=== PATIENT | female | born 1995 | race Caucasian/White ===

== ENCOUNTER 2019-02-12 18:25 | Inpatient (IN) | END 2019-05-20 23:59 | disposition still patient (30) | DRG 133 | DX: J96.21 Acute and chronic respiratory failure with hypoxia (principal); G93.1 Anoxic brain damage, not elsewhere classified; Z93.0 Tracheostomy status; Z86.74 Personal history of sudden cardiac arrest; D64.9 Anemia, unspecified; T79.A1 Traumatic compartment syndrome of upper extremity; I69.319 Unspecified symptoms and signs involving cognitive functions following cerebral infarction; Z91.010 Allergy to peanuts; X58.XXXS Exposure to other specified factors, sequela; R40.2423 Glasgow coma scale score 9-12, at hospital admission ==

== ENCOUNTER 2019-02-22 17:02 | Inpatient (IN) | payer MEDICAID, OTHER ==
[~2019-02-22] VITALS: Ht 152.4 cm; Wt 39.9 kg
--- NOTE | 2019-02-22 17:14 | NUR ---
PT IS IN ROOM #1A. DR SCHMIDT EVALUATED THE PT.
[2019-02-22] MEDS ORDERED: IV NORMAL SALINE 1000 ML BAG IV ONE (17:15)
[2019-02-22] MEDS ORDERED: LORAZEPAM 2 MG/1 ML VIAL ONE ×3 (17:24→17:45)
[2019-02-22] MEDS ORDERED: LORAZEPAM 2 MG/1 ML VIAL IV ONE ×3 (17:30→17:45)
[2019-02-22] MEDS ORDERED: CEFE1VIA3 IV (17:37)
[2019-02-22] MEDS ORDERED: AMLO10TA4 GT (17:37)
[2019-02-22] MEDS ORDERED: ZINC57OI3 TP (17:37)
[2019-02-22] MEDS ORDERED: LACT-89 GT (17:37)
[2019-02-22] MEDS ORDERED: CALC500T13 GT (17:37)
[2019-02-22] MEDS ORDERED: GUAR1PAC4 GT (17:37)
[2019-02-22] MEDS ORDERED: OMEP20TA20 GT (17:37)
[2019-02-22] MEDS ORDERED: ASCO500C18 GT (17:37)
[2019-02-22] MEDS ORDERED: NEOM1PAC2 TP (17:37)
[2019-02-22] MEDS ORDERED: AMIN30LI2 GT (17:37)
[2019-02-22] MEDS ORDERED: LEVE500T9 GT (17:37)
[2019-02-22] MEDS ORDERED: ACID1TAB12 GT (17:37)
[2019-02-22] MEDS ORDERED: NYSTATIN SUSP (17:37)
[2019-02-22] MEDS ORDERED: HEPA500034 SQ (17:37)
[2019-02-22] MEDS ORDERED: MULT1TAB73 GT (17:37)
[2019-02-22] MEDS ORDERED: HYDR-4075 GT ×2 (17:37)
[2019-02-22] MEDS ORDERED: HYDR1SOL TOP (17:37)
[2019-02-22] MEDS ORDERED: FERR325T28 GT (17:37)
[2019-02-22] MEDS ORDERED: ACET-2154 GT (17:37)
[2019-02-22] MEDS ORDERED: DEXT15DR6 EACHEYE (17:37)
[2019-02-22] MEDS ORDERED: METO50TA16 GT (17:37)
[2019-02-22] MEDS ORDERED: LORA2VIA33 IV (17:37)
[2019-02-22] MEDS ORDERED: ZINC220C8 GT (17:37)
[2019-02-22 17:51] LABS: BASOPHILS # (AUTO) 0.1 K/uL (0.0-8.0); BASOPHILS % (AUTO) 0.6 % (0.0-2.0); EOSINOPHILS # (AUTO) 0.6 K/uL (0.0-0.7); EOSINOPHILS % (AUTO) 3.2 % (0.0-7.0); HEMATOCRIT 32.2 % (31.2-41.9); HEMOGLOBIN 10.7 g/dL (10.9-14.3); LYMPHOCYTES # (AUTO) 2.6 K/uL (20.0-40.0); LYMPHOCYTES % (AUTO) 15.2 % (20.5-51.5); MEAN CORPUSCULAR HEMOGLOBIN 29.6 uug (24.7-32.8); MEAN CORPUSCULAR HGB CONC 33 g/dL (32.3-35.6); MONOCYTES # (AUTO) 1.1 K/uL (2.0-10.0); MONOCYTES % (AUTO) 6.3 % (0.0-11.0); NEUTROPHILS % (AUTO) 74.7 % (38.5-71.5); PLATELET COUNT (AUTO) 442 K/uL (179-408); RED BLOOD CELL COUNT(AUTO) 3.62 MIL/uL (3.63-4.92); WHITE BLOOD COUNT (AUTO) 17.5 K/uL (3.8-11.8)
[2019-02-22] MEDS ORDERED: FOSPHENYTOIN SODIUM 1,000 MG in IV NORMAL SALINE 100 ML IV ONE (18:00)
[2019-02-22] MEDS ORDERED: PHENYTOIN SODIUM IV 1,000 MG in IV NORMAL SALINE 100 ML IV ONE (18:00)
[2019-02-22 18:01] LABS: CARBON DIOXIDE 27 mmol/L (21-32); CHLORIDE 101 mmol/L (98-107); CREATININE 0.7 mg/dL (0.6-1.3); GLUCOSE 134 mg/dL (74-106); POTASSIUM 4.1 mmol/L (3.5-5.1); UREA NITROGEN, BLOOD 18 mg/dL (7-18)
[2019-02-22 18:05] LABS: ETHANOL < 3 MG/DL (0-0)
[2019-02-22 18:11] LABS: ACETAMINOPHEN < 2.0 ug/mL (10-30); ALANINE AMINOTRANSFERASE 77 U/L (14-59); ALKALINE PHOSPHATASE 136 U/L (50-136); ASPARTATE AMINOTRANSFERASE 72 U/L (15-37); BILIRUBIN,DIRECT < 0.1 mg/dL (0.0-0.2); BILIRUBIN,TOTAL 0.1 mg/dL (0.2-1.0); LIPASE 583 U/L (73-393); TOTAL PROTEIN, SERUM 8.8 g/dL (6.4-8.2)
[2019-02-22] MEDS ORDERED: LEVETIRACETAM IV 1,000 MG in IV DEXTROSE 5% 100 ML IV ONE (18:15)
[2019-02-22 18:28] LABS: THYROID STIMULATING HORMONE 2.782 mIU/mL (0.358-3.740)
--- NOTE | 2019-02-22 19:32 | NUR ---
REPORT GIVEN TO CARLOS OATES.
--- NOTE | 2019-02-22 19:51 | NUR ---
REPORT GIVEN TO CCU CARLOS SERRANO.
[2019-02-22] MEDS ORDERED: IOHEXOL 350 100 ML INFUS..BTL ONE (20:41)
[2019-02-22] MEDS ORDERED: IV NORMAL SALINE 250 ML IV ONE (20:41)
[2019-02-22] MEDS ORDERED: SWABABLE VALVE TRANSFER SET EA MC ONE (20:41)
[2019-02-22 21:11] LABS: *BILIRUBIN,URIN NEGATIVE (NEGATIVE); *BLOOD, URINE NEGATIVE (NEGATIVE); *COLOR,URINE LIGHT YELLOW (YELLOW); *KETONES,URINE NEGATIVE (NEGATIVE); *UROBILINOGEN,URINE 0.2 E.U./dl (NORMAL); LEUKOCYTE ESTERASE ,URINE TRACE (NEGATIVE); NITRITE, URINE NEGATIVE (NEGATIVE); UGLUCOSE NEGATIVE (NEGATIVE)
[2019-02-22 21:17] LABS: *CLARITY,URINE HAZY (CLEAR)
[2019-02-22 21:19] LABS: BACTERIA,URINE FEW /HPF (NONE SEEN); RBC,URINE 0-3 /HPF (0-3); SQUAMOUS EPITHELIAL CELL,UR MANY /HPF (NONE SEEN)
[2019-02-22 21:20] LABS: YEAST,URINE MODERATE /HPF (NONE SEEN)
[2019-02-22 21:24] LABS: *AMPHETAMINE, URINE NEGATIVE (NEGATIVE); *BARBITURATE, URINE NEGATIVE (NEGATIVE); *CANNABINOID, URINE NEGATIVE (NEGATIVE); *COCCAINE, URINE NEGATIVE (NEGATIVE); *OPIATE, URINE NEGATIVE (NEGATIVE); *PHENCYCLIDINE SCREEN,URINE NEGATIVE (NEGATIVE)
--- NOTE | 2019-02-22 23:00 | NUR ---
Pt out of ER for CT. Pt placed on monitor, accompanied patient to radiology dept.
--- NOTE | 2019-02-22 23:00 | NUR ---
PT TRANSPORTED TO CT SCAN TO CCU 2 WITHOUT INCIDENT NOTED. PLACED PT ON COOL AEROSOL 28%. NO DISTRESS NOTED AT THIS TIME.
[2019-02-22 23:30] VITALS: BP 125/58
--- NOTE | 2019-02-22 23:30 | NUR ---
Pt transferred to CCU.
--- NOTE | 2019-02-22 23:35 | NUR ---
Received pt in bed, eyes closed and nonverbal. Mother at bedside. Pt under the care of MD NANCY with Dx: STATUS EPILEPTICUS. Pt withdraws to painful stimuli with left upper extremity rigid. Tele noted to be SR with HR 102. Pt on cool aerosol 28% with O2 sats up to 100%. No acute distress noted. VARSHA midline and left FA 22G both intact and patent. Assessment completed, skin check done. VSS, afebrile. Pt turned and repositioned, heels offloaded. Aspiration and seizure precautions initiated. Will continue to monitor closely and carry out all orders.
[2019-02-23] VITALS (27 sets, daily range): BP systolic 102–135; BP diastolic 58–86
[2019-02-23] MEDS: IV D5/ 0.9% NACL 1,000 ML IV PRN ×2 (00:13→13:08)
[2019-02-23] MEDS ORDERED: LORAZEPAM 2 MG/1 ML VIAL IV PRN ×2 (00:15→07:30)
[2019-02-23] MEDS ORDERED: IV NORMAL SALINE 1000 ML BAG IV ONE (00:45)
--- NOTE | 2019-02-23 01:00 | NUR ---
Pt's mother refused order of EEG. Discussed the risks and benefits. Will endorse accordingly. Will continue plan of care.
[2019-02-23] MEDS: ASCORBIC ACID 500 MG TABLET PO SCH ×2 (01:14→09:06)
[2019-02-23] MEDS: ACIDOPHILUS/BULGARICUS CHEW TAB GT SCH ×3 (01:14→20:50)
[2019-02-23] MEDS: ZINC SULFATE 220 MG CAPSULE GT SCH ×2 (01:14→09:06)
[2019-02-23] MEDS ORDERED: CALCIUM CARBONATE 500 MG TAB.CHEW ONE ×2 (01:26→23:03)
[2019-02-23] MEDS: CALCIUM CARBONATE 500 MG TABLET PO SCH ×4 (01:27→23:47)
[2019-02-23] MEDS ORDERED: Z GUARD REMEDY PASTE 57 GM TUBE TOP PRN (01:45)
[2019-02-23] MEDS: ACETAMINOPHEN 650 MG/20.3 ML LIQUID UDC GT PRN (04:59)
[2019-02-23 05:21] LABS: BASOPHILS # (AUTO) 0.1 K/uL (0.0-8.0); BASOPHILS % (AUTO) 0.7 % (0.0-2.0); CARBON DIOXIDE 25 mmol/L (21-32); CHLORIDE 107 mmol/L (98-107); CREATININE 0.5 mg/dL (0.6-1.3); EOSINOPHILS # (AUTO) 0.3 K/uL (0.0-0.7); EOSINOPHILS % (AUTO) 3.6 % (0.0-7.0); GLUCOSE 105 mg/dL (74-106); HEMATOCRIT 24.8 % (31.2-41.9); HEMOGLOBIN 8.6 g/dL (10.9-14.3); LYMPHOCYTES # (AUTO) 2.2 K/uL (20.0-40.0); LYMPHOCYTES % (AUTO) 23.5 % (20.5-51.5); MEAN CORPUSCULAR HEMOGLOBIN 31.1 uug (24.7-32.8); MEAN CORPUSCULAR HGB CONC 35 g/dL (32.3-35.6); MEAN CORPUSCULAR VOLUME 89.6 fL (75.5-95.3); MONOCYTES # (AUTO) 0.6 K/uL (2.0-10.0); MONOCYTES % (AUTO) 6.5 % (0.0-11.0); NEUTROPHILS # (AUTO) 6.2 K/uL (1.8-8.9); NEUTROPHILS % (AUTO) 65.7 % (38.5-71.5); PLATELET COUNT (AUTO) 296 K/uL (179-408); POTASSIUM 3.7 mmol/L (3.5-5.1); RED BLOOD CELL COUNT(AUTO) 2.77 MIL/uL (3.63-4.92); UREA NITROGEN, BLOOD 13 mg/dL (7-18); WHITE BLOOD COUNT (AUTO) 9.4 K/uL (3.8-11.8)
--- NOTE | 2019-02-23 05:30 | NUR ---
Pt slept well in between care. AM care provided at this time. Pt suctioned with thick white to liao secretions noted. Pt opens eyes spontaneously to stimuli. Aspiration and seizure precautions maintained. No significant changes throughout the night. Will continue with plan of care.
--- NOTE | 2019-02-23 06:01 | NUR ---
Medication CALCIUM CARBONATE 500 MG TABLET not given during this time. Last med administration at 0130. Medication frequency Q8H and will be endorsed to give at 0930. Will continue plan of care.
--- NOTE | 2019-02-23 07:20 | NUR ---
Received report from retail shift supervisor nurse, patient in bed on trach mask 6L and iv fluids running D5NS @85cc/hr. Noted covered wounds on patients right arm and thigh and left hand. Midline in left upper arm. Bed in low position, side rails up x2, patient on continuous telemetry and oxygen monitoring. Will continue to monitor patient.
[2019-02-23] MEDS ORDERED: ACETAMINOPHEN 325 MG TABLET GT SCH (07:30)
[2019-02-23] MEDS ORDERED: OSMOLITE 1.2 CAL 1,000 ML LIQUID GT PRN (07:30)
[2019-02-23] MEDS ORDERED: HOME MED MISCELLANEOUS XX SCH (07:30)
[2019-02-23] MEDS ORDERED: HEPARIN SODIUM,PORCINE 5,000 UNITS/ML VIAL SQ SCH (09:00)
[2019-02-23] MEDS ORDERED: LEVETIRACETAM IV 500 MG in IV DEXTROSE 5% 100 ML IV SCH (09:00)
[2019-02-23] MEDS ORDERED: METOPROLOL TARTRATE 50 MG TABLET GT SCH (09:00)
[2019-02-23] MEDS ORDERED: LEVETIRACETAM 500 MG TABLET GT SCH (09:00)
[2019-02-23] MEDS ORDERED: CEFEPIME HCL 1 G VIAL IV SCH (09:00)
[2019-02-23] MEDS ORDERED: AMLODIPINE 10 MG TABLET GT SCH (09:00)
[2019-02-23] MEDS ORDERED: ACIDOPHILUS/BULGARICUS CHEW TAB GT SCH (09:00)
[2019-02-23] MEDS ORDERED: NEOMY/BACITRAC/POLYMI OINT 28.35 GM TUBE TOP SCH (09:00)
[2019-02-23] MEDS ORDERED: HEPARIN SODIUM,PORCINE 10,000 UNITS/10 ML VIAL IVP SCH (09:00)
[2019-02-23] MEDS ORDERED: COD LIVER OIL/ZINC OXIDE OINT 113 GM TUBE TOP SCH ×2 (09:00)
[2019-02-23] MEDS ORDERED: HYDROGEN PEROXIDE 3% 118 ML BOTTLE TOP SCH (09:00)
[2019-02-23] MEDS: METOPROLOL TARTRATE 50 MG TABLET PO SCH ×2 (09:07→21:03)
[2019-02-23] MEDS: COD LIVER OIL/ZINC OXIDE OINT 113 GM TUBE TOP SCH ×2 (09:12→21:02)
[2019-02-23] MEDS: AMLODIPINE 10 MG TABLET PO SCH (09:12)
[2019-02-23] MEDS: HYDROGEN PEROXIDE 3% 118 ML BOTTLE TOP SCH ×2 (09:13→21:01)
[2019-02-23] MEDS: NEOMY/BACITRAC/POLYMI OINT 28.35 GM TUBE TOP SCH (09:13)
[2019-02-23] MEDS: NUTRISOURCE FIBER 4 GM PACKET GT SCH (09:16)
[2019-02-23] MEDS: HEPARIN SODIUM,PORCINE 5,000 UNITS/ML VIAL IVP SCH ×2 (09:17→20:55)
--- NOTE | 2019-02-23 09:20 | NUR ---
Patient was seen by Dr. Kiran, orders received to start tube feeding this evenening when patient has been here 24 hours.
--- NOTE | 2019-02-23 09:40 | NUR ---
Patient seen by Dr. Galvan [facility].
[2019-02-23] MEDS: hydrALAZINE HCL 10 MG TABLET GT SCH ×3 (12:50→23:54)
[2019-02-23] MEDS: NYSTATIN SUSPENSION 5 ML LIQUID UDC PO SCH ×2 (12:54→18:07)
[2019-02-23] MEDS ORDERED: CALCIUM CARBONATE 500 MG TAB.CHEW GT SCH (14:00)
[2019-02-23] MEDS: CEFEPIME HCL 1 G in IV DEXTROSE 5% 50 ML IV SCH (16:25)
--- NOTE | 2019-02-23 17:50 | NUR ---
Patient seen by
[2019-02-23] MEDS: hydrALAZINE HCL 10 MG TABLET GT PRN ×2 (18:07→18:13)
--- NOTE | 2019-02-23 18:58 | NUR ---
Patient currently in bed no distress noted at this time, iv fluids running at 85cc/hr, trach on aerosol 6L oxygen. patient is sinus/sinus tach on the monitor and oxygen saturation is 100%. Patients strong is draining clear yellow urine, and patients wounds were changed today. patient has been frequently repositioned and off loading of heels and elbows.
[2019-02-23] MEDS: FLUCONAZOLE 100 MG TABLET PO SCH (19:16)
--- NOTE | 2019-02-23 19:30 | NUR ---
Report received. Patient is a 24 y.o female admitted yesterday for Status Epilepticus. Has been a patient of our subacute unit secondary to anoxic brain injury. Opens eyes spontaneously; doesn't track. With facial grimacing to pain such as suctioning but doesn't follow any commands. Large amounts of clear secretions drooling from side of mouth. Trache Shiley #[address] O2 by trache mask 6 L flow = 28% FIO2; sat 99-100%. GT in place; clamped. Midline noted to VARSHA; IVF infusing well. R arm, R thigh and L hand with dressings intact; clean and dry. Assessment done; refer to flow sheet for details. Addendum: 02/24/19 at 0037 by TIFFANI HERRERA RN Amended: Links added. Addendum: 02/24/19 at 0037 by TIFFANI HERRERA RN Amended: Links added. Addendum: 02/24/19 at 0042 by TIFFANI HERRERA RN Amended: Links added.
--- NOTE | 2019-02-23 19:45 | NUR ---
Message left to Dr. Acevedo re: Dilcia kelly.
--- NOTE | 2019-02-23 20:00 | NUR ---
Patient's mother visited. Crying at bedside. Plan of care discussed; verbalized understanding. Advised and reassured appropriately. Temp=99 orally; tachycardic. Cooling measures done. Turned and repositioned. Requires frequent oral suctioning for large amount of thick clear secretions. Addendum: 02/24/19 at 0042 by TIFFANI HERRERA RN Amended: Links added.
--- NOTE | 2019-02-23 20:35 | NUR ---
Spoke to Dr. Acevedo; order received. Dilcia dose increased. Addendum: 02/24/19 at 0048 by TIFFANI HERRERA RN Amended: Links added. Addendum: 02/24/19 at 0048 by TIFFANI HERRERA RN Amended: Links added.
[2019-02-23] MEDS: POLYVINYL ALCOHOL OPHT DROPS 15 ML BOTTLE EACHEYE PRN (20:51)
[2019-02-23] MEDS: LEVETIRACETAM 500 MG TABLET PEG SCH (20:51)
[2019-02-23] MEDS: PROTEIN SUPPLEMENT (PROSTAT) 30 ML LIQUID GT SCH (20:53)
[2019-02-23] MEDS ORDERED: PROTEIN SUPPLEMENT (PROSTAT) 30 ML LIQUID GT SCH ×2 (21:00)
[2019-02-23] MEDS ORDERED: FERROUS SULFATE SLOW RELEASE 45 MG (ELEMENTAL) TABEC PO SCH (21:00)
[2019-02-23] MEDS ORDERED: ASCORBIC ACID 500 MG TABLET PO SCH (21:00)
[2019-02-23] MEDS ORDERED: ZINC SULFATE 220 MG CAPSULE GT SCH (21:00)
[2019-02-23] MEDS ORDERED: MULTIVITAMINS,THERAPEUTIC TABLET PO SCH (21:00)
[2019-02-23] MEDS ORDERED: FERROUS SULFATE 325 MG TABEC PO SCH (21:00)
[2019-02-23] MEDS: FERROUS SULFATE 300 MG/5 ML LIQUID UDC GT SCH (21:01)
[2019-02-23] MEDS: MULTIVIT, IRON, MIN NO. 8, FA TABLET PO SCH (21:04)
[2019-02-23] MEDS ORDERED: CALCIUM CARBONATE 500 MG TABLET ONE (23:33)
[2019-02-24] VITALS (24 sets, daily range): BP systolic 111–138; BP diastolic 64–84
[2019-02-24] MEDS: NYSTATIN SUSPENSION 5 ML LIQUID UDC PO SCH ×4 (00:03→17:27)
--- NOTE | 2019-02-24 01:30 | NUR ---
Am care rendered. Red Mendez urinary catheter accidentally out during turning. Adams Catheter F#16 inserted aseptically; with clear yellow urine draining. Wound care treatments and skin care done. Patient with eyes open but still not tracking. VS stable. Addendum: 02/24/19 at 0310 by TIFFANI HERRERA RN Amended: Links added.
[2019-02-24] MEDS: IV D5/ 0.9% NACL 1,000 ML IV PRN ×2 (02:34→13:09)
[2019-02-24 05:09] LABS: IRON, SERUM 89 ug/dL (50-175)
[2019-02-24 05:13] LABS: BASOPHILS % (AUTO) 0.4 % (0.0-2.0); CARBON DIOXIDE 26 mmol/L (21-32); CHLORIDE 107 mmol/L (98-107); CREATININE 0.5 mg/dL (0.6-1.3); EOSINOPHILS # (AUTO) 0.6 K/uL (0.0-0.7); EOSINOPHILS % (AUTO) 5.3 % (0.0-7.0); GLUCOSE 133 mg/dL (74-106); HEMATOCRIT 26.1 % (31.2-41.9); HEMOGLOBIN 9.2 g/dL (10.9-14.3); LYMPHOCYTES # (AUTO) 1.8 K/uL (20.0-40.0); MAGNESIUM 1.5 mg/dL (1.8-2.4); MEAN CORPUSCULAR HEMOGLOBIN 31.4 uug (24.7-32.8); MEAN CORPUSCULAR HGB CONC 35 g/dL (32.3-35.6); MEAN CORPUSCULAR VOLUME 89.3 fL (75.5-95.3); MONOCYTES # (AUTO) 0.6 K/uL (2.0-10.0); MONOCYTES % (AUTO) 5.8 % (0.0-11.0); NEUTROPHILS # (AUTO) 7.4 K/uL (1.8-8.9); NEUTROPHILS % (AUTO) 71.5 % (38.5-71.5); PHOSPHOROUS 5.7 mg/dL (2.5-4.9); PLATELET COUNT (AUTO) 325 K/uL (179-408); POTASSIUM 3.2 mmol/L (3.5-5.1); RED BLOOD CELL COUNT(AUTO) 2.92 MIL/uL (3.63-4.92); UREA NITROGEN, BLOOD 10 mg/dL (7-18); WHITE BLOOD COUNT (AUTO) 10.4 K/uL (3.8-11.8)
--- NOTE | 2019-02-24 05:30 | NUR ---
Incontinent of liquid yellow, brown stools. Cleaned; turned and repositioned. Addendum: 02/24/19 at 0717 by TIFFANI HERRERA RN Amended: Links added.
[2019-02-24] MEDS: hydrALAZINE HCL 10 MG TABLET GT SCH ×3 (05:44→17:27)
[2019-02-24] MEDS: PANTOPRAZOLE ORAL SUSPENSION 40 MG SUSPDR.PKT GT SCH (06:28)
[2019-02-24] MEDS: CALCIUM CARBONATE 500 MG TABLET PO SCH ×3 (06:28→21:54)
--- NOTE | 2019-02-24 07:00 | NUR ---
VS stable. No neuro changes; eyes open but no tracking. O2 saturations maintaining above 96% with O2 by trache mask. No seizures during the shift.
--- NOTE | 2019-02-24 07:30 | NUR ---
report received from Marcela GONZALEZ. 24 yr old female was admitted on 02/22/19 for status epilepticus. had been seizure free since admission. patient obtunded, responsive to noxious stimuli. right arm is rigid, left arm severe weakness but decorticates to pain. lower ext are weak. eyes are open but not following commands. ekg is sinus rhythm, afebrile. has good cough reflex. suctioned tracheally with thick white secretions. has a GT with tube fdg osmolite 1.2 at 60ml/hr. off right now . will resume at 10am. strong catheter #16 intact, urine clear pale yellow color large amount. IV site midline left upper arm D5NS at 85ml/hr Addendum: 02/24/19 at 0939 by PRABHAKAR ARRIETA RN Amended: Links added.
[2019-02-24] MEDS: ASCORBIC ACID 500 MG TABLET PO SCH (08:18)
[2019-02-24] MEDS: FLUCONAZOLE 100 MG TABLET PO SCH (08:18)
[2019-02-24] MEDS: PROTEIN SUPPLEMENT (PROSTAT) 30 ML LIQUID GT SCH (08:18)
[2019-02-24] MEDS: ACIDOPHILUS/BULGARICUS CHEW TAB GT SCH ×2 (08:18→20:14)
[2019-02-24] MEDS: ZINC SULFATE 220 MG CAPSULE GT SCH (08:18)
[2019-02-24] MEDS: LEVETIRACETAM 500 MG TABLET PEG SCH ×2 (08:18→20:14)
[2019-02-24] MEDS: FERROUS SULFATE 300 MG/5 ML LIQUID UDC GT SCH (08:18)
[2019-02-24] MEDS: NUTRISOURCE FIBER 4 GM PACKET GT SCH (08:22)
[2019-02-24] MEDS: METOPROLOL TARTRATE 50 MG TABLET PO SCH ×2 (08:22→20:49)
[2019-02-24] MEDS: AMLODIPINE 10 MG TABLET PO SCH (08:23)
[2019-02-24] MEDS: CEFEPIME HCL 1 G in IV DEXTROSE 5% 50 ML IV SCH (08:24)
[2019-02-24] MEDS: MULTIVIT, IRON, MIN NO. 8, FA TABLET PO SCH (08:24)
[2019-02-24] MEDS: HEPARIN SODIUM,PORCINE 5,000 UNITS/ML VIAL IVP SCH ×2 (08:26→21:01)
--- NOTE | 2019-02-24 09:00 | NUR ---
seen by Dr Adelson. chapin carrasco orders Addendum: 02/24/19 at 0940 by PRABHAKAR ARRIETA RN Amended: Tong added. Addendum: 02/24/19 at 1047 by PRABHAKAR ARRIETA RN Amended: Tong damon.
[2019-02-24] MEDS: HYDROGEN PEROXIDE 3% 118 ML BOTTLE TOP SCH ×2 (09:42→20:14)
--- NOTE | 2019-02-24 10:00 | NUR ---
is having diarrheic stools. pericare done. tube fdg not resumed yet till diarrhea subsides Addendum: 02/24/19 at 1047 by PRABHAKAR ARRIETA RN Amended: Links added.
[2019-02-24] MEDS: COD LIVER OIL/ZINC OXIDE OINT 113 GM TUBE TOP SCH ×2 (10:50→20:14)
[2019-02-24] MEDS: NEOMY/BACITRAC/POLYMI OINT 28.35 GM TUBE TOP SCH (10:50)
--- NOTE | 2019-02-24 11:00 | NUR ---
seen by dr Sosa. condition report given including lab results and diarrhea. orders received. Addendum: 02/24/19 at 1119 by PRABHAKAR ARRIETA RN Amended: Links added.
--- NOTE | 2019-02-24 12:30 | NUR ---
another liquid diarrhea, specimen collected for possible cdiff. dietitian consulted for diarrhea and possibly tube fdg modification Addendum: 02/24/19 at 1358 by PRABHAKAR ARRIETA RN Amended: Links added.
[2019-02-24] MEDS: hydrALAZINE HCL 10 MG TABLET GT PRN (12:35)
--- NOTE | 2019-02-24 14:34 | NUR ---
Social Work Consult This appeals writer tried tor each out to patient's mother, Abdoul, by phone ([phone]). Mother said she was "busy with a lot of things today". This appeals writer will follow up and try to obtain more information and collaborate with Steven, assigned social research assistant.
--- NOTE | 2019-02-24 15:00 | NUR ---
Loida, wound nurse here. checked all wounds. wound care done . Addendum: 02/24/19 at 1640 by PRABHAKAR ARRIETA RN Amended: Links added. Addendum: 02/24/19 at 1642 by PRABHAKAR ARRIETA RN Amended: Links added.
[2019-02-24] MEDS: MAGNESIUM SULFATE/D5W 100 ML IV SCH ×2 (15:36→17:23)
--- NOTE | 2019-02-24 15:45 | NUR ---
WOUND CARE CONSULT: PT PRESENTS WITH HEALING AREAS OF FRAGILE SKIN TO LEFT HAND, RT UPPER ARM AND FOREARM GRAFT SITES, AND RT THIGH DONOR SITE, ALL PRESENT ON ADMISSION. RECOMMENDATIONS MADE FOR WOUND CARE AND SKIN PROTECTION. DISCUSSED WITH NURSING STAFF. PT NOTED TO HAVE INCONTINENCE OF LIQUID STOOL. RECTAL TUBE TO BE INSERTED BY CARLOS. ALFONSO DURON NOTED. FIRST STEP LOW AIRLOSS MATTRESS ON ORDER. WILL SEE PRN. HOLLAND IN AGREEMENT WITH PLAN OF CARE. Addendum: 02/24/19 at 1548 by OLIVIA AVILES RN Amended: Links added.
[2019-02-24] MEDS ORDERED: POTASSIUM CHLORIDE 20 MEQ POWDER PACKET GT ONE (16:00)
--- NOTE | 2019-02-24 16:00 | NUR ---
mother, Abdoul here visiting, explained re pending cdiff. need for isolation prootcol. family not compliant despite education. Addendum: 02/24/19 at 1920 by PARBHAKAR ARRIETA RN Amended: Links added.
--- NOTE | 2019-02-24 16:04 | NUR ---
dietary consult done. will change tube fdg formula to jevity 1.2 . rectal tube inserted for cont diarrhea. Addendum: 02/24/19 at 1604 by PRABHAKAR ARRIETA RN Amended: Links added. Addendum: 02/24/19 at 1640 by PRABHAKAR ARRIETA RN Amended: Links added. Addendum: 02/24/19 at 1642 by PRABHAKAR ARRIETA RN Amended: Links added.
[2019-02-24] MEDS: JEVITY 1.2 1000 ML LIQUID GT PRN (16:28)
--- NOTE | 2019-02-24 16:30 | NUR ---
new tube fdg formula Jevity 1.2 started at 65ml/hr via GT. Prostat dc/d per dietary recommendation Addendum: 02/24/19 at 1642 by PRABHAKAR ARRIETA RN Amended: Links added.
--- NOTE | 2019-02-24 19:17 | NUR ---
ESTEFANI report given to [email or web address]. Addendum: 02/24/19 at 1918 by PRABHAKAR ARRIETA RN Amended: Links added.
--- NOTE | 2019-02-24 19:30 | NUR ---
Report received. Patient on contact isolation pending results of stool C diff. Eyes open, doesn't follow any commands. With Trache Shiley#8, O2 by trache mask at 6L flow. O2 saturations good. Good cough reflex when suctioned and responds by curling legs up. R arm flaccid while L arm rigid. Dressings to R arm, R thigh and L hand intact; clean and dry. Flexi seal in place; with small amounts of liquid brown stools leaking around site. Cleaned; skin care provided. GT feedings at 65 ml/H; no residual. Addendum: 02/24/19 at 2140 by TIFFANI HERRERA RN Amended: Links added. Addendum: 02/24/19 at 2142 by TIFFANI HERRERA RN Amended: Links added.
--- NOTE | 2019-02-24 20:00 | NUR ---
Patient's mother visited; informed of contact isolation. Wears partial PPE, just gown even after discussion. Addendum: 02/24/19 at 2143 by TIFFANI HERRERA RN Amended: Links added.
[2019-02-24] MEDS: POLYVINYL ALCOHOL OPHT DROPS 15 ML BOTTLE EACHEYE PRN (20:14)
--- NOTE | 2019-02-24 20:14 | NUR ---
Patient shrugging shoulder occasionally. Diaphoretic. Temp=99.2. Patient's mother very anxious and demanding; reassured and advised appropriately. BP stable. Keppra via GT due at 2100 given. Will monitor. Addendum: 02/24/19 at 2153 by TIFFANI HERRERA RN Amended: Links added. Addendum: 02/24/19 at 2301 by TIFFANI HERRERA RN Amended: Links added.
--- NOTE | 2019-02-24 20:36 | NUR ---
Ativan IV given for agitation and general discomfort. Patient's mother remains at bedside; plan of care discussed.
[2019-02-25] VITALS (14 sets, daily range): BP systolic 124–148; BP diastolic 67–102
[2019-02-25] MEDS: NYSTATIN SUSPENSION 5 ML LIQUID UDC PO SCH ×3 (00:11→12:48)
[2019-02-25] MEDS: VANCOMYCIN FOR PO/GT/NG USE PO SCH ×3 (00:11→12:47)
[2019-02-25] MEDS: hydrALAZINE HCL 10 MG TABLET GT SCH ×3 (00:11→12:48)
[2019-02-25] MEDS: IV D5/ 0.9% NACL 1,000 ML IV PRN (00:35)
[2019-02-25] MEDS: ACETAMINOPHEN 650 MG/20.3 ML LIQUID UDC GT PRN (05:04)
[2019-02-25 05:31] LABS: CARBON DIOXIDE 24 mmol/L (21-32); CHLORIDE 104 mmol/L (98-107); CREATININE 0.5 mg/dL (0.6-1.3); GLUCOSE 147 mg/dL (74-106); MAGNESIUM 1.7 mg/dL (1.8-2.4); POTASSIUM 3.7 mmol/L (3.5-5.1); UREA NITROGEN, BLOOD 12 mg/dL (7-18)
[2019-02-25] MEDS: CALCIUM CARBONATE 500 MG TABLET PO SCH ×2 (06:02→12:49)
[2019-02-25] MEDS: PANTOPRAZOLE ORAL SUSPENSION 40 MG SUSPDR.PKT GT SCH (06:02)
--- NOTE | 2019-02-25 07:23 | NUR ---
Comfortable on trache mask 6 L.; saturations good. BPs stable. No seizures during the shift.
--- NOTE | 2019-02-25 08:30 | NUR ---
seen by Dr paula. no orders.
[2019-02-25] MEDS: FERROUS SULFATE 300 MG/5 ML LIQUID UDC GT SCH (08:36)
[2019-02-25] MEDS: METOPROLOL TARTRATE 50 MG TABLET PO SCH (08:37)
[2019-02-25] MEDS: ACIDOPHILUS/BULGARICUS CHEW TAB GT SCH (08:37)
[2019-02-25] MEDS: LEVETIRACETAM 500 MG TABLET PEG SCH (08:37)
[2019-02-25] MEDS: ASCORBIC ACID 500 MG TABLET PO SCH (08:38)
[2019-02-25] MEDS: AMLODIPINE 10 MG TABLET PO SCH (08:41)
[2019-02-25] MEDS: HEPARIN SODIUM,PORCINE 5,000 UNITS/ML VIAL IVP SCH (08:42)
[2019-02-25] MEDS: ZINC SULFATE 220 MG CAPSULE GT SCH (08:47)
[2019-02-25] MEDS: COD LIVER OIL/ZINC OXIDE OINT 113 GM TUBE TOP SCH (08:47)
[2019-02-25] MEDS: HYDROGEN PEROXIDE 3% 118 ML BOTTLE TOP SCH (08:47)
[2019-02-25] MEDS: NUTRISOURCE FIBER 4 GM PACKET GT SCH (09:01)
[2019-02-25] MEDS: FLUCONAZOLE 100 MG TABLET PO SCH (09:03)
[2019-02-25] MEDS: NEOMY/BACITRAC/POLYMI OINT 28.35 GM TUBE TOP SCH (09:03)
[2019-02-25] MEDS: MULTIVIT, IRON, MIN NO. 8, FA TABLET PO SCH (09:03)
[2019-02-25] MEDS ORDERED: POTASSIUM CHLORIDE 20 MEQ POWDER PACKET GT ONE (10:30)
--- NOTE | 2019-02-25 10:30 | NUR ---
seen by dr Ramos.orders received
[2019-02-25] MEDS: MAGNESIUM SULFATE/D5W 100 ML IV SCH ×2 (10:58→12:23)
[2019-02-25] MEDS: JEVITY 1.2 1000 ML LIQUID GT PRN (10:58)
--- NOTE | 2019-02-25 10:58 | NUR ---
magnesium IV and k via GT replacements given
--- NOTE | 2019-02-25 12:00 | NUR ---
seen by dr saldivar. orders received to dc back to sn[facility]
--- NOTE | 2019-02-25 14:00 | NUR ---
call to Abdoul , patient's mother. informed of patient's discharge back to snf.
--- NOTE | 2019-02-25 14:45 | NUR ---
report given to Ramandeep GONZALEZ [address] 24 yr old female was admitted on 02/22/19 for status epilepticus. had been seizure free since admission. patient obtunded, responsive to noxious stimuli. righ arm is rigid, left arm severe weakness but decorticated to pain. lower ext are weak. eyes are open but not following commands. afebrile has good patient discharged to [address] Addendum: 02/25/19 at 1512 by PRABHAKAR ARRIETA RN Amended: Links added.
== END 2019-02-25 14:45 | DRG 53 ==
LOC: ER 17:03 → CCU 22:35
PROVIDERS: ADMIT Internal Medicine Nephrology; ATTEND Internal Medicine Nephrology
PROC: 05HC33Z Insertion of Infusion Device into Left Basilic Vein, Percutaneous Approach (ICD-10-PCS; principal; 2019-02-22)
DX: G40.901 Epilepsy, unspecified, not intractable, with status epilepticus (principal); J96.21 Acute and chronic respiratory failure with hypoxia; G93.1 Anoxic brain damage, not elsewhere classified; Z93.0 Tracheostomy status; Z86.74 Personal history of sudden cardiac arrest; Z93.1 Gastrostomy status; B37.49 Other urogenital candidiasis; F10.10 Alcohol abuse, uncomplicated; I25.2 Old myocardial infarction; Z91.010 Allergy to peanuts; Z86.73 Personal history of transient ischemic attack (TIA), and cerebral infarction without residual deficits; Z79.899 Other long term (current) drug therapy; J98.11 Atelectasis; R19.7 Diarrhea, unspecified; Z87.448 Personal history of other diseases of urinary system; F19.10 Other psychoactive substance abuse, uncomplicated; Y90.9 Presence of alcohol in blood, level not specified
CPT/HCPCS: 36415; 36569; 70030-TC; 70450; 71045; 71275; 80307; 83550; 83605; 83690; 83735; 84100; 84443; 85025; 85730; 86850; 86900; 86901; 87040; 87070; 87086; 93005; 93307; A4217; A4663; C1758; G0378; G0480; G0480-TC; J0692; J1165; J1644; J1953; J2060; J3370; J3475; J3490; J7030; J7042; J7050; J7060; Q9967

== ENCOUNTER → 2020-05-20 23:59 | Inpatient (IN) | payer MEDICAID, OTHER ==
[2019-05-22 08:00] VITALS: BP 115/68
--- NOTE | 2019-05-22 14:51 | NUR ---
2:25pm: SAPNA called patient's mother Abdoul [phone] and informed her that the next IDT meeting for the patient is scheduled for 05/27/2019 at 11am. Abdoul expressed understanding. Abodul once again wanted to discuss how to get patient an appointment with a neurologist at [facility], and asked if this SW had heard any updates from neurologist Dr. Acharya (this neurologist was authorized by patient's insurance and patient saw Dr. Acharya on 05/12) regarding the pre-authorization request for a [facility] neurology consultation that Abdoul stated Dr. Acharya had stated he was going to put in with patient's insurance. SAPNA informed Abdoul that according to electrical discharge machine operator Ramandeep's recent conversation with Dr. Acharya's office on 05/16 (see previous chart for RN note), Dr. Acharya's office had told Ramandeep that they do not put in pre-authorization requests and that the request should be referred back to patient's primary physician. Abdoul expressed some frustration with this, stating "why did they tell me that they were going to do it". Abdoul then began to express feelings of being overwhelmed and stressed over the challenges of trying to get an appointment at [facility] for her daughter, and over her daughter's overall health and condition. SAPNA allowed Abdoul to express her feelings, provided supportive counseling and reminded Abdoul about the importance of self-care in order to better manage her feelings of stress. Abdoul expressed understanding and thanked this SAPNA for the support provided. SAPNA then suggested to schedule a meeting with Abdoul, this SAPNA, and Subacute Tobacco Stemmer Machine German Liu, for either Sunday05/26/2019 at 11am, or 05/27/2019 at 1:30pm in order to discuss her request for [facility] neurology services. Abdoul stated that she would look at her schedule and let this SAPNA know which day/time works better for her. SAPNA expressed agreement. SAPNA also informed Abdoul that a dental consultation appointment has been scheduled for the patient for 05/28/2019. Abdoul thanked SAPNA for scheduling the dental consultation appointment.
[2019-05-22] MEDS: hydrALAZINE HCL 10 MG TABLET GT SCH (17:27)
[2019-05-22] MEDS: CALCIUM CARBONATE 500 MG TAB.CHEW GT SCH (17:27)
[2019-05-22] MEDS: levETIRAcetam 500 MG/5 ML LIQUID UDC GT SCH (20:35)
[2019-05-22] MEDS: METOPROLOL TARTRATE 50 MG TABLET GT SCH (20:35)
[2019-05-22] MEDS: MELATONIN 5MG TABLET GT SCH (20:35)
[2019-05-22] MEDS: LACOSAMIDE 100 MG/10 ML UDC GT SCH (20:35)
[2019-05-22] MEDS: ACIDOPHILUS/BULGARICUS CHEW TAB GT SCH (20:35)
[2019-05-22] MEDS: FERROUS SULFATE 330 MG/7.5 ML UDC- FOR SA ONLY GT SCH (20:35)
[2019-05-22] MEDS: MULTIVIT, IRON, MIN NO. 8, FA TABLET GT SCH (20:36)
[2019-05-22] MEDS: HEPARIN SODIUM,PORCINE 5,000 UNITS/ML VIAL SQ SCH (20:36)
[2019-05-22 20:37] VITALS: BP 133/89
[2019-05-22] MEDS: COD LIVER OIL/ZINC OXIDE OINT 113 GM TUBE TP SCH (20:37)
[2019-05-22] MEDS: ADAPALENE 0.3% TP SCH (20:37)
[2019-05-22] MEDS: HYDROGEN PEROXIDE 3% 118 ML BOTTLE TOP SCH (21:06)
[2019-05-23] MEDS: LORAZEPAM 0.5 MG TABLET GT PRN ×2 (00:42→12:30)
--- NOTE | 2019-05-23 02:15 | NUR ---
Patient was with teeth grinding and cheek biting with bleeding, flushed with cold saline orally and suctioned. Administered Ativan 0.5mg via GT, mother aware and at bedside. Ativan resulted and effective, continue to monitor and provide cold saline flushed, aspiration precaution observed. At 0600, bleeding noted to be controlled. Report passed to am shift and Dr. Ramos also aware of the event, will continue to monitor.
[2019-05-23] MEDS: JEVITY 1.2 1000 ML LIQUID GT PRN ×2 (03:57→22:34)
[2019-05-23] MEDS: PANTOPRAZOLE GT SCH (06:09)
[2019-05-23] MEDS: hydrALAZINE HCL 10 MG TABLET GT SCH ×5 (06:09→23:09)
[2019-05-23] MEDS: CALCIUM CARBONATE 500 MG TAB.CHEW GT SCH ×5 (06:09→23:10)
[2019-05-23 08:00] VITALS: BP 118/60
--- NOTE | 2019-05-23 08:15 | NUR ---
Dr. Ramos notified of bleeding from the mouth, biting of lower lip/tongue, new order given to hold heparin at this time, Mother notified of pt's condition and new order, will continue monitoring.
[2019-05-23] MEDS: levETIRAcetam 500 MG/5 ML LIQUID UDC GT SCH ×2 (08:30→20:18)
[2019-05-23] MEDS: ACIDOPHILUS/BULGARICUS CHEW TAB GT SCH ×2 (08:31→20:18)
[2019-05-23] MEDS: LACOSAMIDE 100 MG/10 ML UDC GT SCH ×2 (08:31→20:18)
[2019-05-23] MEDS: AMLODIPINE 10 MG TABLET GT SCH (08:32)
[2019-05-23] MEDS: METOPROLOL TARTRATE 50 MG TABLET GT SCH ×2 (08:32→20:18)
[2019-05-23] MEDS: NUTRISOURCE FIBER 4 GM PACKET GT SCH (08:34)
[2019-05-23] MEDS: HEPARIN SODIUM,PORCINE 5,000 UNITS/ML VIAL SQ SCH (08:35)
[2019-05-23] MEDS: COD LIVER OIL/ZINC OXIDE OINT 113 GM TUBE TP SCH ×2 (08:35→20:18)
[2019-05-23] MEDS: CLINDAMYCIN TP SCH (08:36)
[2019-05-23] MEDS: HYDROGEN PEROXIDE 3% 118 ML BOTTLE TOP SCH ×2 (09:56→20:19)
--- NOTE | 2019-05-23 13:13 | NUR ---
12:30 - Pt given PRN Ativan 0.5mg via Gtube for episodes of anxiety M/B bitting lip/tongue and constantly grinning teeth. Pt responded well to medicine. Lip and tongue remain with slight bleeding. Heparin on hold. Will continue to monitor.
--- NOTE | 2019-05-23 19:01 | NUR ---
No more episodes of bitting lip/tongue. In bed resting comfortably. Mother at bed side. No s/s of active bleed from mouth or tracheal secretions. Will endorse oncoming shift to continue to monitor.
[2019-05-23] MEDS: MELATONIN 5MG TABLET GT SCH (20:18)
[2019-05-23] MEDS: FERROUS SULFATE 330 MG/7.5 ML UDC- FOR SA ONLY GT SCH (20:18)
[2019-05-23] MEDS: ADAPALENE 0.3% TP SCH (20:18)
[2019-05-23] MEDS: MULTIVIT, IRON, MIN NO. 8, FA TABLET GT SCH (20:18)
[2019-05-23 20:48] VITALS: BP 105/87
[2019-05-23 23:10] VITALS: BP 105/70
[2019-05-24] MEDS: CALCIUM CARBONATE 500 MG TAB.CHEW GT SCH ×4 (05:24→23:28)
[2019-05-24] MEDS: PANTOPRAZOLE GT SCH (05:24)
[2019-05-24] MEDS: hydrALAZINE HCL 10 MG TABLET GT SCH ×4 (05:24→23:28)
--- NOTE | 2019-05-24 07:01 | NUR ---
no active bleeding from mouth and trach, no respiratory distress noted,no agitation noted.
[2019-05-24] MEDS: levETIRAcetam 500 MG/5 ML LIQUID UDC GT SCH ×2 (08:17→20:46)
[2019-05-24] MEDS: ACIDOPHILUS/BULGARICUS CHEW TAB GT SCH ×2 (08:18→20:46)
[2019-05-24] MEDS: LACOSAMIDE 100 MG/10 ML UDC GT SCH ×2 (08:18→20:46)
[2019-05-24] MEDS: NUTRISOURCE FIBER 4 GM PACKET GT SCH (08:19)
[2019-05-24] MEDS: METOPROLOL TARTRATE 50 MG TABLET GT SCH ×2 (08:19→20:46)
[2019-05-24] MEDS: AMLODIPINE 10 MG TABLET GT SCH (08:19)
[2019-05-24] MEDS: CLINDAMYCIN TP SCH (08:21)
[2019-05-24] MEDS: COD LIVER OIL/ZINC OXIDE OINT 113 GM TUBE TP SCH ×2 (08:21→20:46)
[2019-05-24 08:30] VITALS: BP 145/57
[2019-05-24] MEDS: HYDROGEN PEROXIDE 3% 118 ML BOTTLE TOP SCH ×2 (09:00→21:13)
[2019-05-24] MEDS: MELATONIN 5MG TABLET GT SCH (20:46)
[2019-05-24] MEDS: ADAPALENE 0.3% TP SCH (20:46)
[2019-05-24] MEDS: FERROUS SULFATE 330 MG/7.5 ML UDC- FOR SA ONLY GT SCH (20:46)
[2019-05-24] MEDS: MULTIVIT, IRON, MIN NO. 8, FA TABLET GT SCH (20:46)
[2019-05-24 20:56] VITALS: BP 140/93
[2019-05-25] MEDS: PANTOPRAZOLE GT SCH (05:14)
[2019-05-25] MEDS: CALCIUM CARBONATE 500 MG TAB.CHEW GT SCH ×4 (05:14→23:18)
[2019-05-25] MEDS: hydrALAZINE HCL 10 MG TABLET GT SCH ×4 (05:14→23:17)
--- NOTE | 2019-05-25 06:11 | NUR ---
no bleeding from mouth or trach noted, no respiratory distress noted.
[2019-05-25 08:30] VITALS: BP 133/62
[2019-05-25] MEDS: levETIRAcetam 500 MG/5 ML LIQUID UDC GT SCH ×2 (08:31→20:49)
[2019-05-25] MEDS: LACOSAMIDE 100 MG/10 ML UDC GT SCH ×2 (08:31→20:49)
[2019-05-25] MEDS: ACIDOPHILUS/BULGARICUS CHEW TAB GT SCH ×2 (08:32→20:49)
[2019-05-25] MEDS: AMLODIPINE 10 MG TABLET GT SCH (08:33)
[2019-05-25] MEDS: METOPROLOL TARTRATE 50 MG TABLET GT SCH ×2 (08:33→20:50)
[2019-05-25] MEDS: NUTRISOURCE FIBER 4 GM PACKET GT SCH (08:35)
[2019-05-25] MEDS: CLINDAMYCIN TP SCH (08:36)
[2019-05-25] MEDS: COD LIVER OIL/ZINC OXIDE OINT 113 GM TUBE TP SCH ×2 (08:36→20:50)
[2019-05-25] MEDS: JEVITY 1.2 1000 ML LIQUID GT PRN ×2 (08:37→22:27)
[2019-05-25] MEDS: HYDROGEN PEROXIDE 3% 118 ML BOTTLE TOP SCH ×2 (09:00→20:07)
[2019-05-25] MEDS: LORAZEPAM 0.5 MG TABLET GT PRN (11:23)
--- NOTE | 2019-05-25 12:06 | NUR ---
Seen and examined by DR Acevedo with no new orders noted.DR Acevedo request to give the Prn medication,due pt has increase of muscle spasm.
[2019-05-25] MEDS: FERROUS SULFATE 330 MG/7.5 ML UDC- FOR SA ONLY GT SCH (20:49)
[2019-05-25] MEDS: MELATONIN 5MG TABLET GT SCH (20:50)
[2019-05-25] MEDS: MULTIVIT, IRON, MIN NO. 8, FA TABLET GT SCH (20:50)
[2019-05-25] MEDS: ADAPALENE 0.3% TP SCH (20:50)
[2019-05-25 21:18] VITALS: BP 123/72
[2019-05-26] MEDS: hydrALAZINE HCL 10 MG TABLET GT SCH ×4 (05:19→23:19)
[2019-05-26] MEDS: CALCIUM CARBONATE 500 MG TAB.CHEW GT SCH ×4 (05:20→23:32)
[2019-05-26] MEDS: PANTOPRAZOLE GT SCH (05:20)
[2019-05-26 08:00] VITALS: BP 120/63
[2019-05-26] MEDS: levETIRAcetam 500 MG/5 ML LIQUID UDC GT SCH ×2 (08:18→20:39)
[2019-05-26] MEDS: LACOSAMIDE 100 MG/10 ML UDC GT SCH ×2 (08:18→20:39)
[2019-05-26] MEDS: ACIDOPHILUS/BULGARICUS CHEW TAB GT SCH ×2 (08:19→20:39)
[2019-05-26] MEDS: METOPROLOL TARTRATE 50 MG TABLET GT SCH ×2 (08:20→20:40)
[2019-05-26] MEDS: AMLODIPINE 10 MG TABLET GT SCH (08:21)
[2019-05-26] MEDS: NUTRISOURCE FIBER 4 GM PACKET GT SCH (08:25)
[2019-05-26] MEDS: CLINDAMYCIN TP SCH (09:00)
[2019-05-26] MEDS: HYDROGEN PEROXIDE 3% 118 ML BOTTLE TOP SCH ×2 (09:00→21:51)
[2019-05-26] MEDS: COD LIVER OIL/ZINC OXIDE OINT 113 GM TUBE TP SCH ×2 (09:00→21:31)
--- NOTE | 2019-05-26 12:20 | NUR ---
Seen by Dr. Kiran, notified of patient's condition, no bleeding from mouth or trach noted, will re-start Heparin 5000 q12hrs subq tonight.
[2019-05-26] MEDS: JEVITY 1.2 1000 ML LIQUID GT PRN (15:37)
--- NOTE | 2019-05-26 17:00 | NUR ---
Finding pt increase muscle spasms and grinning teeth, Mother at bedside offered PRN MEDS as ordered mother, refused explained the benefits in assisting with symptoms still refused at this time.
[2019-05-26] MEDS: LORAZEPAM 0.5 MG TABLET GT PRN (18:58)
--- NOTE | 2019-05-26 19:00 | NUR ---
Pt with increase muscle spams and grinning teeth no and diaphoretic PRN ativan 0.5 mg given via gt as ordered. No s/s of bleeding from mouth and trachea. Mother at bedside.
[2019-05-26 20:00] VITALS: BP 142/92
[2019-05-26] MEDS: FERROUS SULFATE 330 MG/7.5 ML UDC- FOR SA ONLY GT SCH (20:39)
[2019-05-26] MEDS: MELATONIN 5MG TABLET GT SCH (20:40)
[2019-05-26] MEDS: ADAPALENE 0.3% TP SCH (20:40)
[2019-05-26] MEDS: MULTIVIT, IRON, MIN NO. 8, FA TABLET GT SCH (20:40)
[2019-05-26] MEDS: HEPARIN SODIUM,PORCINE 5,000 UNITS/ML VIAL SQ SCH (21:30)
--- NOTE | 2019-05-27 03:30 | NUR ---
At 3:06pm on 05/27/2019, this SW emailed [facility] Damage Appraiser Nancy Matthews requesting to schedule an appointment for patient's mother Abdoul. SW had also left Nancy a voicemail message earlier for the same reason.
[2019-05-27] MEDS: PANTOPRAZOLE GT SCH (05:54)
[2019-05-27] MEDS: CALCIUM CARBONATE 500 MG TAB.CHEW GT SCH ×3 (05:54→17:03)
[2019-05-27] MEDS: hydrALAZINE HCL 10 MG TABLET GT SCH ×3 (06:00→17:08)
[2019-05-27] MEDS: levETIRAcetam 500 MG/5 ML LIQUID UDC GT SCH ×2 (08:19→20:11)
[2019-05-27] MEDS: ACIDOPHILUS/BULGARICUS CHEW TAB GT SCH ×2 (08:22→20:11)
[2019-05-27] MEDS: LACOSAMIDE 100 MG/10 ML UDC GT SCH ×2 (08:22→20:11)
[2019-05-27] MEDS: NUTRISOURCE FIBER 4 GM PACKET GT SCH (08:23)
[2019-05-27] MEDS: CLINDAMYCIN TP SCH (08:23)
[2019-05-27] MEDS: AMLODIPINE 10 MG TABLET GT SCH (08:23)
[2019-05-27] MEDS: COD LIVER OIL/ZINC OXIDE OINT 113 GM TUBE TP SCH ×2 (08:23→20:12)
[2019-05-27] MEDS: METOPROLOL TARTRATE 50 MG TABLET GT SCH ×2 (08:23→20:12)
[2019-05-27] MEDS: HEPARIN SODIUM,PORCINE 5,000 UNITS/ML VIAL SQ SCH ×2 (08:24→21:07)
[2019-05-27 09:22] VITALS: BP 96/53
[2019-05-27] MEDS: HYDROGEN PEROXIDE 3% 118 ML BOTTLE TOP SCH ×2 (09:50→20:30)
--- NOTE | 2019-05-27 14:59 | NUR ---
Pharmacy Update from Today's 05/27/19 IDT Meeting VS: Temp 99.1 HR 101 BP 104/55 LABS: (from 04/29/19, no new labs) Wbc 8.2 H/H 12.7/37.6 Plt 412 Na 138 K 3.8 Cl 101 CO2 28 BUN/SCr 15/0.5 BS 123 Ca 9.5 phos 5.2 Mg 2.0 MEDICATION USE REVIEWED: > Pt not on any anti-psych medications > Pt on Keppra 1000mg q12hr since 03/11/19. CrCl 116, ok per renal function. Neurology continues to follow and adjust > Pt on Vimpat 200mg q12hr since 04/18/19 per neurology > Pt on ativan 0.5mg q12h PRN agitation m/b tachycardia, increased perspiration, grimacing, biting lips, musc tension, started 04/06 per neurology. Used x3 since start, effective per staff > Pt on Heparin 5000mg q12hr for DVT prophylaxis. Was held temporarily d/t pt lip biting, now resolved and restarted. Last plt 412 > On Norvasc 10mg daily, hydralazine 10mg q6hr, lopressor 50mg q12hr with hold parameters. Last BP 101/57 PRN MED USAGE: (Dec) Tylenol for pain used x6 Tylenol for fever used x0 Hydralazine for SBP>180 used x0 Artificial tears PRN used x0 Lorazepam PRN seizures/spasms used x3 [place] used x3 NEW ORDERS NOTED: > Amoxicillin 500mg q8h 05/12-05/17 for right facial swelling/cellulitis > Heparin held 05/23-05/26 d/t pt lip biting, now restarted per MD > Rx rec for change of calcium carbonate 500mg q6hr to 1000mg q12hr for hyperphosphatemia per family request for reduced freq dosing. New dose does not exceed rec elemental Ca/dose. MD in agreement and ordered to change Patient was reviewed and discussed in depth with all medication changes and issues noted per team. Family in attendance and asked for clarification again what calcium carbonate was for. Rx explained it has been on pt for hyperphosphatemia which has been present since pt was admitted to . Family requested for freq to be reduced or to change medication. Rx reviewed regimen, Phos levels still around baseline since admit and Ca levels remain wnl, therefore did not rec for new agent switch at this time. Rx did recommend to MD for adjusted regimen of calcium carbonate 1000mg q12hr for same total daily dose but with reduced frequency. 1gm dose does not exceed recommended max/dose of elemental Ca. MD in agreement and ordered to change. Will continue to monitor
--- NOTE | 2019-05-27 15:06 | NUR ---
11:10am: INTERDISCIPLINARY PLAN OF CARE CONFERENCE was held today. Patient's mother Abdoul was present at the meeting. Dr. Ramos and the Interdisciplinary Team reviewed the current plan of care in detail. RN reported on patient's medical condition and recent treatments. See RN IDT conference notes. Rehab reported that patient continues with OT treatment. SAPNA reminded patient's mother that the patient will be seen by the dentist tomorrow, 05/28/2019 and Marileedevin stated that she will be present to meet with the dentist. See all disciplines IDT notes and physician's progress notes for additional details. Abdoul's questions were addressed by Dr. Ramos and the IDT team, and Abdoul agreed to having the family meeting this afternoon at 1:45pm (SAPNA had spoken with Abdoul on 05/22/2019 trying to schedule a family meeting).
--- NOTE | 2019-05-27 15:12 | NUR ---
2:00pm: Family meeting held. Present at the meeting was this SW, patient's mother Abdoul, Subacute Director German Liu, and Director Germaine Gonzalez. Abdoul wanted to further discuss the option of scheduling an appointment with neurologist Dr. Matute at [facility]. Both this SW and Paper Machine Tender German Liu reminded Abdoul that the obstacle with scheduling an appointment with Dr. Matute was that patient's current insurance was not contracted with [facility] and therefore the insurance was authorizing a visit for Dr. Matute. Patient's insurance had authorized patient to be seen by Dr. Acharya, which patient saw on 05/12/2019, and Abdoul stated that Dr. Acharya had told her that he would refer patient to Dr. Matute at [facility] and that Dr. Acharya would put in an authorization request with patient's insurance. SAPNA stated that based on CARLOS Sabillon's conversation with Dr. Acharya's office on 05/16, CARLOS Sabillon was informed by Dr. Acharya's office that they do not submit authorization requests and that the request should be referred back to patient's primary physician. This SW will follow-up again with Dr. Acharya's office in order to clarify this information. SAPNA informed Abdoul that SAPNA had spoken to Christiano at [facility] neurology yesterday [phone] in order to inquire about what insurances that Dr. Matute's office accepts, and Christiano had stated that they accept straight [employer], but they do not accept HMO [employer] plans. SAPNA and Paper Machine Tender German Liu offered to connect Marileedevin with the [facility]'s [employer] customer support representative Nancy Matthews in order for Abdoul to discuss the option of making changes to patient's insurance, if Abdoul wishes, and Abdoul agreed to meet with Nancy in order to learn about her options. SAPNA will coordinate this meeting between Abdoul and Nancy Matthews. SAPNA will wait to find out the outcome of Abdoul's decision regarding patient's insurance after Abdoul meets with Nancy Matthews, before SAPNA attempts to schedule an appointment with Dr. Matute at [facility]. During the meeting, patient's mother Abdoul received a phone call from Dr. Lani Dawson at [facility] (Dept of Psychology, supervised by Professor Yoder), which patient's mother had contacted regarding a clinical research study. Dr. Dawson offered to assess patient for the clinical research study, and scheduled an appointment to visit patient on Sunday06/02/2019 at 9am. Patient's mother expressed agreement and stated that she will be present during Dr. Dawson' assessment. Dr. Dawson stated that if patient qualifies for the clinical study, that the earliest appointment available would not be until October 2019. Abdoul expressed agreement with the current plan action. Family Meeting sign-in sheet was signed by all that were in attendance at this meeting. Copy of the sign-in sheet was provided to Abdoul, per her request. Addendum: 05/28/19 at 0908 by FERNANDO ALEJO The [facility] clinical study is a low intensity focused ultrasound sensation.
[2019-05-27] MEDS: LORAZEPAM 0.5 MG TABLET GT PRN (15:20)
[2019-05-27] MEDS: JEVITY 1.2 1000 ML LIQUID GT PRN (15:20)
[2019-05-27] MEDS: FERROUS SULFATE 330 MG/7.5 ML UDC- FOR SA ONLY GT SCH (20:11)
[2019-05-27] MEDS: ADAPALENE 0.3% TP SCH (20:12)
[2019-05-27] MEDS: MELATONIN 5MG TABLET GT SCH (20:12)
[2019-05-27] MEDS: MULTIVIT, IRON, MIN NO. 8, FA TABLET GT SCH (20:12)
[2019-05-27 21:38] VITALS: BP 126/68
[2019-05-27 21:44] VITALS: BP 117/63
[2019-05-28] MEDS: JEVITY 1.2 1000 ML LIQUID GT PRN (00:30)
[2019-05-28] MEDS: hydrALAZINE HCL 10 MG TABLET GT SCH ×4 (05:31→17:21)
[2019-05-28] MEDS: CALCIUM CARBONATE 500 MG TAB.CHEW GT SCH ×2 (05:32→17:21)
[2019-05-28] MEDS: PANTOPRAZOLE GT SCH (05:32)
[2019-05-28] MEDS: LACOSAMIDE 100 MG/10 ML UDC GT SCH ×2 (08:20→20:04)
[2019-05-28] MEDS: levETIRAcetam 500 MG/5 ML LIQUID UDC GT SCH ×2 (08:20→20:04)
[2019-05-28] MEDS: METOPROLOL TARTRATE 50 MG TABLET GT SCH ×2 (08:21→20:05)
[2019-05-28] MEDS: AMLODIPINE 10 MG TABLET GT SCH (08:21)
[2019-05-28] MEDS: ACIDOPHILUS/BULGARICUS CHEW TAB GT SCH ×2 (08:21→20:04)
[2019-05-28] MEDS: NUTRISOURCE FIBER 4 GM PACKET GT SCH (08:22)
[2019-05-28] MEDS: HEPARIN SODIUM,PORCINE 5,000 UNITS/ML VIAL SQ SCH ×2 (08:22→21:00)
[2019-05-28] MEDS: COD LIVER OIL/ZINC OXIDE OINT 113 GM TUBE TP SCH ×2 (08:27→21:00)
[2019-05-28] MEDS: CLINDAMYCIN TP SCH (08:28)
[2019-05-28] MEDS: HYDROGEN PEROXIDE 3% 118 ML BOTTLE TOP SCH ×2 (09:00→20:54)
--- NOTE | 2019-05-28 11:59 | NUR ---
11:50am: SAPNA called Dr. Acharya's office [phone] and spoke with Tequila. SAPNA inquired about an authorization request for neurology at [facility] that patient's mother Abdoul stated that Dr. Acharya had said he would put in. Tequila stated that Dr. Acharya does not submit authorization requests, and that Dr. Acharya had suggested to the patient's mother to seek out a second opinion at [facility], if possible, and that Dr. Acharya had referred patient's mother back to the patient's primary physician who would need to submit an authorization request for [facility]. SAPNA thanked Tequila for her time and for the information provided. SW to follow-up with patient's mother and Engineering Inspector German Liu.
[2019-05-28 14:22] VITALS: BP 112/64
--- NOTE | 2019-05-28 15:26 | NUR ---
Patient seen by Dr. Moore today, per physician's order for a dental consult. See dental notes in chart for details.
[2019-05-28] MEDS: FERROUS SULFATE 330 MG/7.5 ML UDC- FOR SA ONLY GT SCH (20:04)
[2019-05-28] MEDS: MELATONIN 5MG TABLET GT SCH (20:05)
[2019-05-28] MEDS: MULTIVIT, IRON, MIN NO. 8, FA TABLET GT SCH (20:06)
[2019-05-28] MEDS: ADAPALENE 0.3% TP SCH (20:09)
[2019-05-28 21:01] VITALS: BP 136/86
[2019-05-29] MEDS: hydrALAZINE HCL 10 MG TABLET GT SCH ×4 (05:09→17:36)
[2019-05-29] MEDS: CALCIUM CARBONATE 500 MG TAB.CHEW GT SCH ×2 (05:10→17:36)
[2019-05-29] MEDS: PANTOPRAZOLE GT SCH (05:10)
[2019-05-29] MEDS: levETIRAcetam 500 MG/5 ML LIQUID UDC GT SCH ×2 (08:00→20:00)
[2019-05-29] MEDS: LACOSAMIDE 100 MG/10 ML UDC GT SCH ×2 (08:00→20:00)
[2019-05-29] MEDS: HYDROGEN PEROXIDE 3% 118 ML BOTTLE TOP SCH ×2 (08:28→20:24)
[2019-05-29] MEDS: AMLODIPINE 10 MG TABLET GT SCH (09:01)
[2019-05-29] MEDS: COD LIVER OIL/ZINC OXIDE OINT 113 GM TUBE TP SCH ×2 (09:01→20:05)
[2019-05-29] MEDS: HEPARIN SODIUM,PORCINE 5,000 UNITS/ML VIAL SQ SCH ×2 (09:01→20:40)
[2019-05-29] MEDS: CLINDAMYCIN TP SCH (09:01)
[2019-05-29] MEDS: ACIDOPHILUS/BULGARICUS CHEW TAB GT SCH ×2 (09:01→20:00)
[2019-05-29] MEDS: NUTRISOURCE FIBER 4 GM PACKET GT SCH (09:01)
[2019-05-29] MEDS: METOPROLOL TARTRATE 50 MG TABLET GT SCH ×2 (09:01→20:02)
--- NOTE | 2019-05-29 10:52 | NUR ---
10:30am: SAPNA met with patient's mother Adboul and informed her about the phone conversation that this SAPNA had had yesterday with Dr. Acharya's office (see SS note dated 05/28). Abdoul stated recalling that Dr. Acharya had stated that he recommends for patient to get a second opinion at [facility]. SAPNA stated that is what SAPNA was also told by the office, however the office stated that the authorization request needs to be submitted by the patient's primary physician and that Dr. Acharya's office does not submit authorization requests. Abdoul stated that if the authorization request is going to be once again submitted by patient's primary physician who initially submitted the first one, that [facility] is not going to be authorized again with patient's current insurance. SAPNA expressed agreement, and informed Abdoul that SAPNA had heard back from the [facility] client service representative Nancy Matthews, who had agreed to contact patient's mother in order to discuss Abdoul's questions about patient's insurance. SAPNA asked Abdoul if Abdoul was ok with this SAPNA providing Nancy with Abdoul's phone number so that Nancy can call Abdoul and schedule an appointment time to meet. Abdoul expressed agreement. SAPNA then emailed Nancy and provided Nancy with Abdoul's phone number. SAPNA updated Subacute Maltster German Liu about all above.
[2019-05-29 11:17] VITALS: BP 114/56
--- NOTE | 2019-05-29 14:44 | NUR ---
SAPNA met with patient's mother Abdoul and obtained signatures on all annual admission paperwork for patient's new chart. The paperwork included: Conditions of Admission, Patient Rights Acknowledgement, Documentation of Preferred Intensity of Care, Voluntary Prior Express Consent Form, Race and Ethnicity Patient Self-Identification, and the [facility] Agreement. Per Abdoul's request, SAPNA provided Marileedevin copies of the signed forms. For assessment/quarterly information, see patient's previous chart #[id number].
--- NOTE | 2019-05-29 14:46 | NUR ---
Patient's mother Abdoul asked this SW about information pertaining to obtaining a wheelchair for the patient. SAPNA informed Abdoul that patient's insurance does not pay for a wheelchair because patient is in a long-term care facility. Abdoul asked about the cost of wheelchairs, and SAPNA stated that the costs vary based on the type of wheelchair that the patient may need. Abdoul asked for resources on DME companies, and SAPNA stated SAPNA will provide Abdoul with a list of local DME companies. Abdoul thanked SAPNA for her time.
[2019-05-29] MEDS: FERROUS SULFATE 330 MG/7.5 ML UDC- FOR SA ONLY GT SCH (20:00)
[2019-05-29] MEDS: MULTIVIT, IRON, MIN NO. 8, FA TABLET GT SCH (20:03)
[2019-05-29] MEDS: MELATONIN 5MG TABLET GT SCH (20:03)
[2019-05-29] MEDS: ADAPALENE 0.3% TP SCH (20:06)
[2019-05-29 22:06] VITALS: BP 110/67
[2019-05-30] MEDS: JEVITY 1.2 1000 ML LIQUID GT PRN (00:30)
[2019-05-30] MEDS: hydrALAZINE HCL 10 MG TABLET GT SCH ×5 (06:00→23:26)
[2019-05-30] MEDS: PANTOPRAZOLE GT SCH (06:01)
[2019-05-30] MEDS: CALCIUM CARBONATE 500 MG TAB.CHEW GT SCH ×2 (06:01→17:37)
--- NOTE | 2019-05-30 08:02 | NUR ---
SW informed by patient's mother Abdoul that the assessment by Dr. Dawson for the [facility] clinical research study has been rescheduled from Sunday06/02/2019 at 9am to Sunday06/04/2019 at 9am.
[2019-05-30] MEDS: levETIRAcetam 500 MG/5 ML LIQUID UDC GT SCH ×2 (08:53→19:44)
[2019-05-30] MEDS: METOPROLOL TARTRATE 50 MG TABLET GT SCH ×2 (08:53→20:03)
[2019-05-30] MEDS: ACIDOPHILUS/BULGARICUS CHEW TAB GT SCH ×2 (08:53→20:03)
[2019-05-30] MEDS: LACOSAMIDE 100 MG/10 ML UDC GT SCH ×2 (08:53→19:44)
[2019-05-30] MEDS: CLINDAMYCIN TP SCH (08:54)
[2019-05-30] MEDS: HEPARIN SODIUM,PORCINE 5,000 UNITS/ML VIAL SQ SCH ×2 (08:54→19:51)
[2019-05-30] MEDS: NUTRISOURCE FIBER 4 GM PACKET GT SCH (08:54)
[2019-05-30] MEDS: AMLODIPINE 10 MG TABLET GT SCH (08:54)
[2019-05-30] MEDS: COD LIVER OIL/ZINC OXIDE OINT 113 GM TUBE TP SCH ×2 (09:00→20:03)
[2019-05-30] MEDS: HYDROGEN PEROXIDE 3% 118 ML BOTTLE TOP SCH ×2 (09:55→20:26)
[2019-05-30 10:08] VITALS: BP 101/57
[2019-05-30 15:26] LABS: BASOPHILS # (AUTO) 0.1 K/uL (0.0-8.0); BASOPHILS % (AUTO) 0.7 % (0.0-2.0); EOSINOPHILS # (AUTO) 0.3 K/uL (0.0-0.7); EOSINOPHILS % (AUTO) 3.4 % (0.0-7.0); HEMATOCRIT 34.2 % (31.2-41.9); HEMOGLOBIN 11.6 g/dL (10.9-14.3); LYMPHOCYTES # (AUTO) 2.3 K/uL (20.0-40.0); LYMPHOCYTES % (AUTO) 25.2 % (20.5-51.5); MEAN CORPUSCULAR HEMOGLOBIN 30.8 uug (24.7-32.8); MEAN CORPUSCULAR HGB CONC 34 g/dL (32.3-35.6); MEAN CORPUSCULAR VOLUME 90.6 fL (75.5-95.3); MONOCYTES # (AUTO) 0.8 K/uL (2.0-10.0); MONOCYTES % (AUTO) 9.1 % (0.0-11.0); NEUTROPHILS # (AUTO) 5.6 K/uL (1.8-8.9); NEUTROPHILS % (AUTO) 61.6 % (38.5-71.5); PLATELET COUNT (AUTO) 449 K/uL (179-408); RED BLOOD CELL COUNT(AUTO) 3.77 MIL/uL (3.63-4.92)
--- NOTE | 2019-05-30 15:26 | NUR ---
SAPNA met with patient's mother Abdoul and provided her with resources for DME companies: 1) [employer] [facility] [address] [place], [place] [id number] 2) [facility] [address] [place], [place] [address] 3) [employer] [phone] [address] 4) [facility] [employer] [facility] [place] [address] [employer] [place] [phone] 5) [facility] [address] [place] [phone]
[2019-05-30 15:40] LABS: CARBON DIOXIDE 30 mmol/L (21-32); CHLORIDE 101 mmol/L (98-107); CREATININE 0.5 mg/dL (0.6-1.3); GLUCOSE 101 mg/dL (74-106); MAGNESIUM 2.2 mg/dL (1.8-2.4); PHOSPHOROUS 5.1 mg/dL (2.5-4.9); POTASSIUM 4.1 mmol/L (3.5-5.1); UREA NITROGEN, BLOOD 14 mg/dL (7-18)
[2019-05-30] MEDS: MELATONIN 5MG TABLET GT SCH (20:03)
[2019-05-30] MEDS: MULTIVIT, IRON, MIN NO. 8, FA TABLET GT SCH (20:03)
[2019-05-30] MEDS: FERROUS SULFATE 330 MG/7.5 ML UDC- FOR SA ONLY GT SCH (20:03)
[2019-05-30] MEDS: ADAPALENE 0.3% TP SCH (20:03)
[2019-05-30 20:42] VITALS: BP 132/88
[2019-05-31] MEDS: hydrALAZINE HCL 10 MG TABLET GT SCH ×3 (05:18→17:40)
[2019-05-31] MEDS: PANTOPRAZOLE GT SCH (06:07)
[2019-05-31] MEDS: CALCIUM CARBONATE 500 MG TAB.CHEW GT SCH ×2 (06:07→17:40)
[2019-05-31] MEDS: LACOSAMIDE 100 MG/10 ML UDC GT SCH ×2 (08:00→20:57)
[2019-05-31] MEDS: levETIRAcetam 500 MG/5 ML LIQUID UDC GT SCH ×2 (08:00→20:57)
[2019-05-31] MEDS: HYDROGEN PEROXIDE 3% 118 ML BOTTLE TOP SCH ×2 (08:48→21:00)
[2019-05-31] MEDS: ACIDOPHILUS/BULGARICUS CHEW TAB GT SCH ×2 (09:07→20:57)
[2019-05-31] MEDS: METOPROLOL TARTRATE 50 MG TABLET GT SCH ×2 (09:11→20:58)
[2019-05-31] MEDS: AMLODIPINE 10 MG TABLET GT SCH (09:11)
[2019-05-31] MEDS: NUTRISOURCE FIBER 4 GM PACKET GT SCH (09:12)
[2019-05-31] MEDS: COD LIVER OIL/ZINC OXIDE OINT 113 GM TUBE TP SCH ×2 (09:15→20:59)
[2019-05-31] MEDS: CLINDAMYCIN TP SCH (09:15)
[2019-05-31] MEDS: HEPARIN SODIUM,PORCINE 5,000 UNITS/ML VIAL SQ SCH ×2 (09:27→20:58)
--- NOTE | 2019-05-31 10:15 | NUR ---
SEEN AND EXAMINED BY DR. FORREST AND WITH NNO.
[2019-05-31 11:48] VITALS: BP 105/60
[2019-05-31 20:25] VITALS: BP 116/73
[2019-05-31] MEDS: FERROUS SULFATE 330 MG/7.5 ML UDC- FOR SA ONLY GT SCH (20:57)
[2019-05-31] MEDS: MULTIVIT, IRON, MIN NO. 8, FA TABLET GT SCH (20:58)
[2019-05-31] MEDS: MELATONIN 5MG TABLET GT SCH (20:58)
[2019-05-31] MEDS: ADAPALENE 0.3% TP SCH (20:59)
[2019-06-01] MEDS: hydrALAZINE HCL 10 MG TABLET GT SCH ×5 (00:20→23:05)
[2019-06-01] MEDS: JEVITY 1.2 1000 ML LIQUID GT PRN ×2 (04:45→23:57)
[2019-06-01] MEDS: PANTOPRAZOLE GT SCH (06:14)
[2019-06-01] MEDS: CALCIUM CARBONATE 500 MG TAB.CHEW GT SCH ×2 (06:14→17:33)
[2019-06-01] MEDS: METOPROLOL TARTRATE 50 MG TABLET GT SCH ×2 (08:08→20:25)
[2019-06-01] MEDS: levETIRAcetam 500 MG/5 ML LIQUID UDC GT SCH ×2 (08:08→20:00)
[2019-06-01] MEDS: LACOSAMIDE 100 MG/10 ML UDC GT SCH ×2 (08:08→20:00)
[2019-06-01] MEDS: ACIDOPHILUS/BULGARICUS CHEW TAB GT SCH ×2 (08:08→20:00)
[2019-06-01] MEDS: CLINDAMYCIN TP SCH (08:09)
[2019-06-01] MEDS: AMLODIPINE 10 MG TABLET GT SCH (08:09)
[2019-06-01] MEDS: NUTRISOURCE FIBER 4 GM PACKET GT SCH (08:09)
[2019-06-01] MEDS: COD LIVER OIL/ZINC OXIDE OINT 113 GM TUBE TP SCH ×2 (08:09→20:01)
[2019-06-01] MEDS: HEPARIN SODIUM,PORCINE 5,000 UNITS/ML VIAL SQ SCH ×2 (08:11→20:12)
[2019-06-01] MEDS: HYDROGEN PEROXIDE 3% 118 ML BOTTLE TOP SCH ×2 (09:00→20:36)
[2019-06-01 11:14] VITALS: BP 99/57
--- NOTE | 2019-06-01 18:45 | NUR ---
PER RN CHELSEY AT 17:30( WHOM IS TAKING CARE OF PT.) REPORTED THAT HE OFFERED X2 PRN MEDICATION FOR PT. D/T VISIBLE FACIAL GRIMACING ,GENERALIZED SWEATING ESCALATING AND RESTLESSNESS NOT RELIEVED WITH REPOSITIONING AND TRACHEAL SUCTION AND PT. BEING KEPT CLEAN AT ALL TIMES BUT PT'S MOTHER INTERFERED WITH TX REFUSING DIFFERENT PRN MEDICATIONS TILL AT THIS TIME WHEN CH. NURSE SPOKE TO HER AND FINALLY SHE ACCEPTED IT ,ENDORSED TO NOC. SHIFT TO CONTINUE CARE AND MONITOR PT.
[2019-06-01] MEDS: LORAZEPAM 0.5 MG TABLET GT PRN (18:56)
[2019-06-01] MEDS: FERROUS SULFATE 330 MG/7.5 ML UDC- FOR SA ONLY GT SCH (20:00)
[2019-06-01] MEDS: MULTIVIT, IRON, MIN NO. 8, FA TABLET GT SCH (20:01)
[2019-06-01] MEDS: MELATONIN 5MG TABLET GT SCH (20:01)
[2019-06-01] MEDS: ADAPALENE 0.3% TP SCH (20:13)
[2019-06-01 20:23] VITALS: BP 140/99
[2019-06-01 22:40] VITALS: BP 98/62
[2019-06-02] MEDS: hydrALAZINE HCL 10 MG TABLET GT SCH ×4 (06:00→23:01)
[2019-06-02] MEDS: PANTOPRAZOLE GT SCH (06:06)
[2019-06-02] MEDS: CALCIUM CARBONATE 500 MG TAB.CHEW GT SCH ×2 (06:06→17:54)
[2019-06-02] MEDS: HYDROGEN PEROXIDE 3% 118 ML BOTTLE TOP SCH ×2 (08:21→21:17)
[2019-06-02] MEDS: LACOSAMIDE 100 MG/10 ML UDC GT SCH ×2 (08:29→20:00)
[2019-06-02] MEDS: AMLODIPINE 10 MG TABLET GT SCH (08:30)
[2019-06-02] MEDS: levETIRAcetam 500 MG/5 ML LIQUID UDC GT SCH ×2 (08:30→20:00)
[2019-06-02] MEDS: METOPROLOL TARTRATE 50 MG TABLET GT SCH ×2 (08:30→20:01)
[2019-06-02] MEDS: ACIDOPHILUS/BULGARICUS CHEW TAB GT SCH ×2 (08:30→20:01)
[2019-06-02] MEDS: NUTRISOURCE FIBER 4 GM PACKET GT SCH (08:31)
[2019-06-02] MEDS: HEPARIN SODIUM,PORCINE 5,000 UNITS/ML VIAL SQ SCH ×2 (08:36→20:01)
[2019-06-02] MEDS: COD LIVER OIL/ZINC OXIDE OINT 113 GM TUBE TP SCH ×2 (08:36→20:02)
[2019-06-02] MEDS: CLINDAMYCIN TP SCH (08:37)
[2019-06-02 09:05] VITALS: BP 94/57
--- NOTE | 2019-06-02 13:52 | NUR ---
NEW ORDER WAS CARRIED OUT FROM QUAN ROSALES P.[facility] TO D/C LOCAL TX D/T HEALED SITE PER MARY DOMINGUEZ N.P.(SEE NOTES) AND PT'S MOTHER IN AGREEMENT WITH ORDER AND CONFIRMED WITH LEAD CASTER HELPER MATT CULP.
[2019-06-02] MEDS: FERROUS SULFATE 330 MG/7.5 ML UDC- FOR SA ONLY GT SCH (20:01)
[2019-06-02] MEDS: MELATONIN 5MG TABLET GT SCH (20:01)
[2019-06-02] MEDS: MULTIVIT, IRON, MIN NO. 8, FA TABLET GT SCH (20:01)
[2019-06-02] MEDS: ADAPALENE 0.3% TP SCH (20:02)
[2019-06-02 21:00] VITALS: BP 100/63
[2019-06-03] MEDS: hydrALAZINE HCL 10 MG TABLET GT SCH ×3 (05:17→18:08)
[2019-06-03] MEDS: CALCIUM CARBONATE 500 MG TAB.CHEW GT SCH ×2 (05:18→18:07)
[2019-06-03] MEDS: PANTOPRAZOLE GT SCH (05:18)
[2019-06-03] MEDS: levETIRAcetam 500 MG/5 ML LIQUID UDC GT SCH ×2 (08:14→20:09)
[2019-06-03] MEDS: LACOSAMIDE 100 MG/10 ML UDC GT SCH ×2 (08:15→20:09)
[2019-06-03] MEDS: ACIDOPHILUS/BULGARICUS CHEW TAB GT SCH ×2 (08:15→20:09)
[2019-06-03] MEDS: METOPROLOL TARTRATE 50 MG TABLET GT SCH ×2 (08:17→20:10)
[2019-06-03] MEDS: AMLODIPINE 10 MG TABLET GT SCH (08:17)
[2019-06-03] MEDS: COD LIVER OIL/ZINC OXIDE OINT 113 GM TUBE TP SCH ×2 (08:22→20:10)
[2019-06-03] MEDS: NUTRISOURCE FIBER 4 GM PACKET GT SCH (08:22)
[2019-06-03] MEDS: CLINDAMYCIN TP SCH (08:22)
[2019-06-03] MEDS: HEPARIN SODIUM,PORCINE 5,000 UNITS/ML VIAL SQ SCH ×2 (08:23→20:11)
[2019-06-03] MEDS: HYDROGEN PEROXIDE 3% 118 ML BOTTLE TOP SCH ×2 (09:00→21:23)
[2019-06-03 09:28] VITALS: BP 112/62
[2019-06-03 12:20] VITALS: BP 108/65
--- NOTE | 2019-06-03 15:03 | NUR ---
Seen and examined by Priti Do,no new orders noted.
[2019-06-03] MEDS: JEVITY 1.2 1000 ML LIQUID GT PRN (18:00)
[2019-06-03] MEDS: FERROUS SULFATE 330 MG/7.5 ML UDC- FOR SA ONLY GT SCH (20:09)
[2019-06-03] MEDS: ADAPALENE 0.3% TP SCH (20:10)
[2019-06-03] MEDS: MELATONIN 5MG TABLET GT SCH (20:10)
[2019-06-03] MEDS: MULTIVIT, IRON, MIN NO. 8, FA TABLET GT SCH (20:10)
[2019-06-03 20:11] VITALS: BP 147/103
[2019-06-04] MEDS: CALCIUM CARBONATE 500 MG TAB.CHEW GT SCH ×2 (06:03→17:45)
[2019-06-04] MEDS: PANTOPRAZOLE GT SCH (06:03)
[2019-06-04] MEDS: hydrALAZINE HCL 10 MG TABLET GT SCH ×4 (06:03→17:45)
[2019-06-04] MEDS: levETIRAcetam 500 MG/5 ML LIQUID UDC GT SCH ×2 (08:09→20:24)
[2019-06-04] MEDS: LACOSAMIDE 100 MG/10 ML UDC GT SCH ×2 (08:10→20:24)
[2019-06-04] MEDS: ACIDOPHILUS/BULGARICUS CHEW TAB GT SCH ×2 (08:10→20:24)
[2019-06-04] MEDS: METOPROLOL TARTRATE 50 MG TABLET GT SCH ×2 (08:11→20:25)
[2019-06-04] MEDS: NUTRISOURCE FIBER 4 GM PACKET GT SCH (08:14)
[2019-06-04] MEDS: AMLODIPINE 10 MG TABLET GT SCH (08:14)
[2019-06-04] MEDS: COD LIVER OIL/ZINC OXIDE OINT 113 GM TUBE TP SCH ×2 (08:15→20:26)
[2019-06-04] MEDS: CLINDAMYCIN TP SCH (08:15)
[2019-06-04] MEDS: HEPARIN SODIUM,PORCINE 5,000 UNITS/ML VIAL SQ SCH ×2 (08:16→20:25)
[2019-06-04] MEDS: HYDROGEN PEROXIDE 3% 118 ML BOTTLE TOP SCH ×2 (09:09→21:17)
--- NOTE | 2019-06-04 10:45 | NUR ---
9:15am: SW informed this morning by patient's mother Abdoul that the assessment by Dr. Dawson for the [facility] clinical research study has once again been rescheduled from this morning's 9am appointment time to 06/10/2019 at 9am. Subacute Elevator Runner German Liu and full charge bookkeeper Tali also present, and both were also informed of the rescheduled appointment day/time.
[2019-06-04 11:26] VITALS: BP 123/76
[2019-06-04 20:00] VITALS: BP 150/94
[2019-06-04] MEDS: FERROUS SULFATE 330 MG/7.5 ML UDC- FOR SA ONLY GT SCH (20:24)
[2019-06-04] MEDS: MELATONIN 5MG TABLET GT SCH (20:25)
[2019-06-04] MEDS: MULTIVIT, IRON, MIN NO. 8, FA TABLET GT SCH (20:25)
[2019-06-04] MEDS: ADAPALENE 0.3% TP SCH (20:26)
[2019-06-05] MEDS: hydrALAZINE HCL 10 MG TABLET GT SCH ×4 (00:27→17:44)
[2019-06-05] MEDS: JEVITY 1.2 1000 ML LIQUID GT PRN (05:16)
[2019-06-05] MEDS: CALCIUM CARBONATE 500 MG TAB.CHEW GT SCH ×2 (05:16→17:44)
[2019-06-05] MEDS: PANTOPRAZOLE GT SCH (05:16)
[2019-06-05] MEDS: HYDROGEN PEROXIDE 3% 118 ML BOTTLE TOP SCH ×2 (07:52→21:24)
[2019-06-05] MEDS: levETIRAcetam 500 MG/5 ML LIQUID UDC GT SCH ×2 (07:54→20:08)
[2019-06-05] MEDS: LACOSAMIDE 100 MG/10 ML UDC GT SCH ×2 (07:55→20:08)
[2019-06-05] MEDS: ACIDOPHILUS/BULGARICUS CHEW TAB GT SCH ×2 (08:12→20:08)
[2019-06-05] MEDS: METOPROLOL TARTRATE 50 MG TABLET GT SCH ×2 (08:12→20:08)
[2019-06-05] MEDS: AMLODIPINE 10 MG TABLET GT SCH (08:12)
[2019-06-05] MEDS: NUTRISOURCE FIBER 4 GM PACKET GT SCH (08:12)
[2019-06-05] MEDS: CLINDAMYCIN TP SCH (08:13)
[2019-06-05] MEDS: COD LIVER OIL/ZINC OXIDE OINT 113 GM TUBE TP SCH ×2 (08:13→20:10)
[2019-06-05] MEDS: HEPARIN SODIUM,PORCINE 5,000 UNITS/ML VIAL SQ SCH ×2 (08:13→20:10)
[2019-06-05 09:27] VITALS: BP 103/54
[2019-06-05] MEDS: FERROUS SULFATE 330 MG/7.5 ML UDC- FOR SA ONLY GT SCH (20:08)
[2019-06-05] MEDS: MELATONIN 5MG TABLET GT SCH (20:08)
[2019-06-05] MEDS: MULTIVIT, IRON, MIN NO. 8, FA TABLET GT SCH (20:08)
[2019-06-05] MEDS: ADAPALENE 0.3% TP SCH (20:11)
[2019-06-05 20:57] VITALS: BP 129/87
[2019-06-06] MEDS: JEVITY 1.2 1000 ML LIQUID GT PRN ×2 (00:01→14:56)
[2019-06-06] MEDS: hydrALAZINE HCL 10 MG TABLET GT SCH ×5 (05:20→23:02)
[2019-06-06] MEDS: CALCIUM CARBONATE 500 MG TAB.CHEW GT SCH ×2 (05:21→17:11)
[2019-06-06] MEDS: PANTOPRAZOLE GT SCH (05:21)
[2019-06-06] MEDS: LACOSAMIDE 100 MG/10 ML UDC GT SCH ×2 (08:00→20:00)
[2019-06-06] MEDS: levETIRAcetam 500 MG/5 ML LIQUID UDC GT SCH ×2 (08:00→20:00)
[2019-06-06] MEDS: METOPROLOL TARTRATE 50 MG TABLET GT SCH ×2 (09:00→20:01)
[2019-06-06] MEDS: NUTRISOURCE FIBER 4 GM PACKET GT SCH (09:00)
[2019-06-06] MEDS: HEPARIN SODIUM,PORCINE 5,000 UNITS/ML VIAL SQ SCH ×2 (09:00→20:03)
[2019-06-06] MEDS: CLINDAMYCIN TP SCH (09:00)
[2019-06-06] MEDS: AMLODIPINE 10 MG TABLET GT SCH (09:00)
[2019-06-06] MEDS: COD LIVER OIL/ZINC OXIDE OINT 113 GM TUBE TP SCH ×2 (09:00→20:01)
[2019-06-06] MEDS: ACIDOPHILUS/BULGARICUS CHEW TAB GT SCH ×2 (09:00→20:00)
[2019-06-06] MEDS: HYDROGEN PEROXIDE 3% 118 ML BOTTLE TOP SCH ×2 (10:30→19:20)
[2019-06-06 11:23] VITALS: BP 111/67
[2019-06-06 19:58] VITALS: BP 138/86
[2019-06-06] MEDS: FERROUS SULFATE 330 MG/7.5 ML UDC- FOR SA ONLY GT SCH (20:00)
[2019-06-06] MEDS: MELATONIN 5MG TABLET GT SCH (20:01)
[2019-06-06] MEDS: ADAPALENE 0.3% TP SCH (20:01)
[2019-06-06] MEDS: MULTIVIT, IRON, MIN NO. 8, FA TABLET GT SCH (20:01)
[2019-06-07] MEDS: hydrALAZINE HCL 10 MG TABLET GT SCH ×4 (05:23→23:00)
[2019-06-07] MEDS: CALCIUM CARBONATE 500 MG TAB.CHEW GT SCH ×2 (05:24→17:41)
[2019-06-07] MEDS: PANTOPRAZOLE ORAL SUSPENSION 40 MG SUSPDR.PKT GT SCH (05:24)
[2019-06-07 08:00] VITALS: BP 117/61
[2019-06-07] MEDS: ACIDOPHILUS/BULGARICUS CHEW TAB GT SCH ×2 (08:35→20:02)
[2019-06-07] MEDS: LACOSAMIDE 100 MG/10 ML UDC GT SCH ×2 (08:35→19:51)
[2019-06-07] MEDS: levETIRAcetam 500 MG/5 ML LIQUID UDC GT SCH ×2 (08:35→19:51)
[2019-06-07] MEDS: NUTRISOURCE FIBER 4 GM PACKET GT SCH (08:37)
[2019-06-07] MEDS: HEPARIN SODIUM,PORCINE 5,000 UNITS/ML VIAL SQ SCH ×2 (08:38→20:04)
[2019-06-07] MEDS: CLINDAMYCIN TP SCH (08:40)
[2019-06-07] MEDS: COD LIVER OIL/ZINC OXIDE OINT 113 GM TUBE TP SCH ×2 (08:40→20:03)
[2019-06-07] MEDS: METOPROLOL TARTRATE 50 MG TABLET GT SCH ×2 (08:54→20:03)
[2019-06-07] MEDS: AMLODIPINE 10 MG TABLET GT SCH (08:55)
[2019-06-07] MEDS: HYDROGEN PEROXIDE 3% 118 ML BOTTLE TOP SCH ×2 (10:20→20:53)
[2019-06-07] MEDS: LORAZEPAM 0.5 MG TABLET GT PRN (14:02)
--- NOTE | 2019-06-07 14:15 | NUR ---
pt has a episode of increase tone with spasm,both arm moving inward and head moving down,medicated with Ativan 0.5 mg via Gt as ordered ,with some help,on close observation.Mother at bedside,
[2019-06-07 19:53] VITALS: BP 138/74
[2019-06-07] MEDS: FERROUS SULFATE 330 MG/7.5 ML UDC- FOR SA ONLY GT SCH (20:02)
[2019-06-07] MEDS: ADAPALENE 0.3% TP SCH (20:03)
[2019-06-07] MEDS: MULTIVIT, IRON, MIN NO. 8, FA TABLET GT SCH (20:03)
[2019-06-07] MEDS: MELATONIN 5MG TABLET GT SCH (20:03)
[2019-06-08] MEDS: JEVITY 1.2 1000 ML LIQUID GT PRN ×2 (00:14→17:32)
[2019-06-08] MEDS: CALCIUM CARBONATE 500 MG TAB.CHEW GT SCH ×2 (05:22→17:31)
[2019-06-08] MEDS: hydrALAZINE HCL 10 MG TABLET GT SCH ×4 (05:22→23:09)
[2019-06-08] MEDS: PANTOPRAZOLE ORAL SUSPENSION 40 MG SUSPDR.PKT GT SCH (05:22)
--- NOTE | 2019-06-08 06:16 | NUR ---
NO EPISODE OF INCREASE TONE WITH SPASM NOTED, NO RESPIRATORY DISTRESS, SLEPT LONG HOURS.
[2019-06-08 08:05] VITALS: BP 120/60
[2019-06-08] MEDS: LACOSAMIDE 100 MG/10 ML UDC GT SCH ×2 (08:11→20:00)
[2019-06-08] MEDS: ACIDOPHILUS/BULGARICUS CHEW TAB GT SCH ×2 (08:11→21:36)
[2019-06-08] MEDS: METOPROLOL TARTRATE 50 MG TABLET GT SCH ×2 (08:11→21:36)
[2019-06-08] MEDS: NUTRISOURCE FIBER 4 GM PACKET GT SCH (08:11)
[2019-06-08] MEDS: AMLODIPINE 10 MG TABLET GT SCH (08:11)
[2019-06-08] MEDS: levETIRAcetam 500 MG/5 ML LIQUID UDC GT SCH ×2 (08:11→20:00)
[2019-06-08] MEDS: COD LIVER OIL/ZINC OXIDE OINT 113 GM TUBE TP SCH ×2 (08:12→21:36)
[2019-06-08] MEDS: HEPARIN SODIUM,PORCINE 5,000 UNITS/ML VIAL SQ SCH ×2 (08:12→21:37)
[2019-06-08] MEDS: CLINDAMYCIN TP SCH (08:13)
[2019-06-08] MEDS: HYDROGEN PEROXIDE 3% 118 ML BOTTLE TOP SCH ×2 (08:30→21:14)
[2019-06-08 20:34] VITALS: BP 126/55
[2019-06-08] MEDS: FERROUS SULFATE 330 MG/7.5 ML UDC- FOR SA ONLY GT SCH (21:36)
[2019-06-08] MEDS: MELATONIN 5MG TABLET GT SCH (21:36)
[2019-06-08] MEDS: MULTIVIT, IRON, MIN NO. 8, FA TABLET GT SCH (21:36)
[2019-06-08] MEDS: ADAPALENE 0.3% TP SCH (21:36)
[2019-06-09] MEDS: hydrALAZINE HCL 10 MG TABLET GT SCH ×4 (05:46→23:02)
[2019-06-09] MEDS: PANTOPRAZOLE ORAL SUSPENSION 40 MG SUSPDR.PKT GT SCH (05:46)
[2019-06-09] MEDS: CALCIUM CARBONATE 500 MG TAB.CHEW GT SCH ×2 (05:47→17:50)
[2019-06-09] MEDS: LACOSAMIDE 100 MG/10 ML UDC GT SCH ×2 (08:45→20:25)
[2019-06-09] MEDS: ACIDOPHILUS/BULGARICUS CHEW TAB GT SCH ×2 (08:45→20:25)
[2019-06-09] MEDS: levETIRAcetam 500 MG/5 ML LIQUID UDC GT SCH ×2 (08:45→20:25)
[2019-06-09] MEDS: METOPROLOL TARTRATE 50 MG TABLET GT SCH ×2 (08:45→20:26)
[2019-06-09] MEDS: AMLODIPINE 10 MG TABLET GT SCH (08:46)
[2019-06-09] MEDS: NUTRISOURCE FIBER 4 GM PACKET GT SCH (08:46)
[2019-06-09] MEDS: CLINDAMYCIN TP SCH (08:47)
[2019-06-09] MEDS: COD LIVER OIL/ZINC OXIDE OINT 113 GM TUBE TP SCH ×2 (08:47→20:26)
[2019-06-09] MEDS: HEPARIN SODIUM,PORCINE 5,000 UNITS/ML VIAL SQ SCH ×2 (08:47→21:00)
[2019-06-09] MEDS: HYDROGEN PEROXIDE 3% 118 ML BOTTLE TOP SCH ×2 (09:56→19:19)
--- NOTE | 2019-06-09 11:22 | NUR ---
SEEN BY MARISOL ROSALES WITH NO NEW ORDER.
[2019-06-09] MEDS: JEVITY 1.2 1000 ML LIQUID GT PRN (11:25)
--- NOTE | 2019-06-09 17:12 | NUR ---
DR ESTRADA ORDERED EEG NOTED AND CARRIED OUT. PLACED A CALLED TO EEG DEPT. AWARE OF THE TEST.WILL BE DONE EITHER TONIGHT OR IN AM.
--- NOTE | 2019-06-09 17:16 | NUR ---
MOTHER AT BEDSIDE AWARE OF EEG ORDER.
[2019-06-09] MEDS: FERROUS SULFATE 330 MG/7.5 ML UDC- FOR SA ONLY GT SCH (20:25)
[2019-06-09] MEDS: MULTIVIT, IRON, MIN NO. 8, FA TABLET GT SCH (20:26)
[2019-06-09] MEDS: MELATONIN 5MG TABLET GT SCH (20:26)
[2019-06-09] MEDS: ADAPALENE 0.3% TP SCH (20:27)
[2019-06-09 21:16] VITALS: BP 133/77
[2019-06-09 23:00] VITALS: BP 102/62
[2019-06-10] MEDS: hydrALAZINE HCL 10 MG TABLET GT SCH ×3 (06:00→17:32)
[2019-06-10 06:09] VITALS: BP 106/62
[2019-06-10] MEDS: JEVITY 1.2 1000 ML LIQUID GT PRN ×2 (06:09→23:00)
[2019-06-10] MEDS: CALCIUM CARBONATE 500 MG TAB.CHEW GT SCH ×2 (06:09→17:32)
[2019-06-10] MEDS: PANTOPRAZOLE ORAL SUSPENSION 40 MG SUSPDR.PKT GT SCH (06:09)
[2019-06-10] MEDS: ACIDOPHILUS/BULGARICUS CHEW TAB GT SCH ×2 (08:30→20:13)
[2019-06-10] MEDS: LACOSAMIDE 100 MG/10 ML UDC GT SCH ×2 (08:30→20:13)
[2019-06-10] MEDS: levETIRAcetam 500 MG/5 ML LIQUID UDC GT SCH ×2 (08:30→20:13)
[2019-06-10] MEDS: METOPROLOL TARTRATE 50 MG TABLET GT SCH ×2 (08:31→20:13)
[2019-06-10] MEDS: AMLODIPINE 10 MG TABLET GT SCH (08:31)
[2019-06-10] MEDS: NUTRISOURCE FIBER 4 GM PACKET GT SCH (08:31)
[2019-06-10] MEDS: HEPARIN SODIUM,PORCINE 5,000 UNITS/ML VIAL SQ SCH ×2 (08:32→20:20)
[2019-06-10] MEDS: COD LIVER OIL/ZINC OXIDE OINT 113 GM TUBE TP SCH ×2 (08:32→20:13)
[2019-06-10] MEDS: CLINDAMYCIN TP SCH (08:33)
[2019-06-10] MEDS: HYDROGEN PEROXIDE 3% 118 ML BOTTLE TOP SCH ×2 (09:16→21:05)
[2019-06-10 11:47] VITALS: BP 117/62
--- NOTE | 2019-06-10 13:46 | NUR ---
Dr. Lani Dawson from [facility] clinical research department arrived this morning at 9am for her schedule appointment with the patient. Dr. Dawson met with patient's mother Abdoul, anders ALEJO, and CARLOS Tran. Patient's mother Abdoul's friend Cathy was also present. Dr. Dawson performed her assessment, lasting from 9am-11am, and present throughout the entire time were Abdoul, anders ALEJO, CARLOS Tran, and Abdoul's friend Cathy. After completing her assessment, Dr. Dawson stated that patient would be a good candidate for the low intensity focused ultrasound pulsation research study at [facility], and patient's mother Abdoul expressed agreement for patient to participate. Dr. Dawson stated that she would have to look at the schedule and get back to this SAPNA and Abdoul about when there will be availability for patient to be scheduled, stating that it could be either in July or September. Abdoul expressed agreement and understanding. Dr. Dawson explained the process of the clinical study, which would require the patient going to [facility] on 2 consecutive Sunday afternoons in order for the low intensity focused ultrasound pulsation to be administered by the clinical research team. Dr. Valentine stated that all expenses for the study, including transportation to and from [facility], would be covered by the research study willie. Dr. Valentine stated that patient would not require overnight hospitalization at [facility] and that the patient would return to [facility] on both days that the treatment is administered. Dr. Dawson stated that there will be multiple behavioral assessments completed by her research team, that will be conducted before and after each treatment, both at [facility] and while at [facility], and also during 4 follow-ups that will happen 1 week, 1 month, 3 months, and 6 months following the completion of the clinical research study treatment. Per Dr. Dawson's request, and Abdoul's authorization, this SW provided Dr. Dawson with a list of patient's current medications, the last progress note from Dr. Ponce, dated 06/09/2019, and a copy of the discharge summary from [facility]. Dr. Ponce had ordered an EEG yesterday, but the report was not ready yet, and SAPNA stated that once the report was ready that SW could fax it to Dr. Dawson. Dr. Dawson agreed. Dr. Dawson phone number is [phone] x [phone], however Dr. Dawson stated that it is easier to contact her via email, [email or web address]. All above information reported to Dr. Ramos, Lizz Howard PADionte to Dr. Ramos, Subacute Director German Liu, and RN Tali. SAPNA will wait to hear back Dr. Dawson regarding the scheduling of the days for the research study, and SAPNA will then work with Dr. Dawson and patient's mother Abdoul to coordinate all necessary arrangements for the clinical research study.
[2019-06-10] MEDS: ACETAMINOPHEN 650 MG/20 ML UDC- SA PATIENTS-PAIN ONLY GT PRN ×2 (16:19→17:32)
[2019-06-10] MEDS: FERROUS SULFATE 330 MG/7.5 ML UDC- FOR SA ONLY GT SCH (20:13)
[2019-06-10] MEDS: ADAPALENE 0.3% TP SCH (20:13)
[2019-06-10] MEDS: MELATONIN 5MG TABLET GT SCH (20:13)
[2019-06-10] MEDS: MULTIVIT, IRON, MIN NO. 8, FA TABLET GT SCH (20:13)
[2019-06-10 21:04] VITALS: BP 150/95
[2019-06-11] MEDS: PANTOPRAZOLE ORAL SUSPENSION 40 MG SUSPDR.PKT GT SCH (05:50)
[2019-06-11] MEDS: hydrALAZINE HCL 10 MG TABLET GT SCH ×4 (05:50→18:32)
[2019-06-11] MEDS: CALCIUM CARBONATE 500 MG TAB.CHEW GT SCH ×2 (05:55→18:32)
[2019-06-11] MEDS: HYDROGEN PEROXIDE 3% 118 ML BOTTLE TOP SCH ×2 (08:40→19:02)
[2019-06-11] MEDS: levETIRAcetam 500 MG/5 ML LIQUID UDC GT SCH ×2 (08:43→20:05)
[2019-06-11] MEDS: METOPROLOL TARTRATE 50 MG TABLET GT SCH ×2 (08:43→20:07)
[2019-06-11] MEDS: LACOSAMIDE 100 MG/10 ML UDC GT SCH ×2 (08:43→20:05)
[2019-06-11] MEDS: ACIDOPHILUS/BULGARICUS CHEW TAB GT SCH ×2 (08:43→20:06)
[2019-06-11] MEDS: HEPARIN SODIUM,PORCINE 5,000 UNITS/ML VIAL SQ SCH ×2 (08:44→20:09)
[2019-06-11] MEDS: NUTRISOURCE FIBER 4 GM PACKET GT SCH (08:44)
[2019-06-11] MEDS: AMLODIPINE 10 MG TABLET GT SCH (08:44)
[2019-06-11] MEDS: COD LIVER OIL/ZINC OXIDE OINT 113 GM TUBE TP SCH ×2 (08:45→20:11)
[2019-06-11] MEDS: CLINDAMYCIN TP SCH (08:45)
[2019-06-11 11:23] VITALS: BP 107/57
--- NOTE | 2019-06-11 17:15 | NUR ---
Seen and examined by Dr Ramos,new orders noted.Per Mother's request child protective services social worker to assist with coordination of arrangements for [facility],clinical research study.
--- NOTE | 2019-06-11 19:16 | NUR ---
Seen and examined by Dr Sosa with new orders noted.
[2019-06-11] MEDS: FERROUS SULFATE 330 MG/7.5 ML UDC- FOR SA ONLY GT SCH (20:06)
[2019-06-11] MEDS: MELATONIN 5MG TABLET GT SCH (20:07)
[2019-06-11] MEDS: MULTIVIT, IRON, MIN NO. 8, FA TABLET GT SCH (20:08)
[2019-06-11 20:09] VITALS: BP 107/67
[2019-06-11] MEDS: ADAPALENE 0.3% TP SCH (20:11)
[2019-06-12] MEDS: hydrALAZINE HCL 10 MG TABLET GT SCH ×4 (05:39→17:22)
[2019-06-12] MEDS: PANTOPRAZOLE ORAL SUSPENSION 40 MG SUSPDR.PKT GT SCH (05:42)
[2019-06-12] MEDS: CALCIUM CARBONATE 500 MG TAB.CHEW GT SCH ×2 (05:42→17:22)
[2019-06-12 08:07] VITALS: BP 115/66
[2019-06-12] MEDS: AMLODIPINE 10 MG TABLET GT SCH (08:23)
[2019-06-12] MEDS: levETIRAcetam 500 MG/5 ML LIQUID UDC GT SCH ×2 (08:23→20:09)
[2019-06-12] MEDS: LACOSAMIDE 100 MG/10 ML UDC GT SCH ×2 (08:23→20:09)
[2019-06-12] MEDS: ACIDOPHILUS/BULGARICUS CHEW TAB GT SCH ×2 (08:23→20:10)
[2019-06-12] MEDS: HEPARIN SODIUM,PORCINE 5,000 UNITS/ML VIAL SQ SCH ×2 (08:23→20:10)
[2019-06-12] MEDS: METOPROLOL TARTRATE 50 MG TABLET GT SCH ×2 (08:23→20:10)
[2019-06-12] MEDS: NUTRISOURCE FIBER 4 GM PACKET GT SCH (08:23)
[2019-06-12] MEDS: COD LIVER OIL/ZINC OXIDE OINT 113 GM TUBE TP SCH ×2 (08:24→20:11)
[2019-06-12] MEDS: CLINDAMYCIN TP SCH (08:24)
[2019-06-12] MEDS: HYDROGEN PEROXIDE 3% 118 ML BOTTLE TOP SCH ×2 (08:52→21:07)
[2019-06-12] MEDS: MULTIVIT, IRON, MIN NO. 8, FA TABLET GT SCH (20:10)
[2019-06-12] MEDS: FERROUS SULFATE 330 MG/7.5 ML UDC- FOR SA ONLY GT SCH (20:10)
[2019-06-12] MEDS: MELATONIN 5MG TABLET GT SCH (20:10)
[2019-06-12] MEDS: RANITIDINE 300 MG GT SCH (20:10)
[2019-06-12] MEDS: ADAPALENE 0.3% TP SCH (20:11)
[2019-06-12 21:45] VITALS: BP 119/76
--- NOTE | 2019-06-12 23:00 | NUR ---
Patient is sleeping, no signs of any distress noted, kept patient clean and comfortable, needs attended by staff, mother Abdoul at bedside.
[2019-06-12] MEDS: JEVITY 1.2 1000 ML LIQUID GT PRN (23:30)
[2019-06-13] MEDS: JEVITY 1.2 1000 ML LIQUID GT PRN ×2 (00:30→21:55)
[2019-06-13] MEDS: hydrALAZINE HCL 10 MG TABLET GT SCH ×4 (05:35→18:00)
[2019-06-13] MEDS: CALCIUM CARBONATE 500 MG TAB.CHEW GT SCH ×2 (05:35→18:16)
[2019-06-13] MEDS: HYDROGEN PEROXIDE 3% 118 ML BOTTLE TOP SCH ×2 (08:12→21:00)
[2019-06-13] MEDS: levETIRAcetam 500 MG/5 ML LIQUID UDC GT SCH ×2 (08:19→20:09)
[2019-06-13] MEDS: LACOSAMIDE 100 MG/10 ML UDC GT SCH ×2 (08:22→20:09)
[2019-06-13] MEDS: ACIDOPHILUS/BULGARICUS CHEW TAB GT SCH ×2 (08:23→20:09)
[2019-06-13] MEDS: METOPROLOL TARTRATE 50 MG TABLET GT SCH ×2 (08:26→21:54)
[2019-06-13] MEDS: AMLODIPINE 10 MG TABLET GT SCH (08:27)
[2019-06-13] MEDS: NUTRISOURCE FIBER 4 GM PACKET GT SCH (08:28)
[2019-06-13] MEDS: CLINDAMYCIN TP SCH (08:29)
[2019-06-13] MEDS: COD LIVER OIL/ZINC OXIDE OINT 113 GM TUBE TP SCH ×2 (08:29→20:10)
[2019-06-13] MEDS: HEPARIN SODIUM,PORCINE 5,000 UNITS/ML VIAL SQ SCH ×2 (08:29→20:10)
[2019-06-13 09:29] VITALS: BP 109/65
--- NOTE | 2019-06-13 13:30 | NUR ---
PT. WAS TAKEN OUT TO [facility] BY HER MOTHER AND SHE CALLED TO UNIT COMPLAINING VERY UPSET THAT THE PORTABLE SUCTION MACHINE WAS NOT WORKING AND SHE NEEDED SOMEBODY RIGHT AWAY TO COME TO [facility] AND SHE WAS ASKED TO BRING PT. BACK TO UNIT BUT SHE REFUSED AND LATER SHE CHANGED HER VERSION ,SHE STATED THAT THE PORTABLE SUCTION MACHINE HAD THE SHORT SUCTION TUBE MISSING AND SHE WAS ASKED AGAIN TO BRING THE PT. BACK TO THE UNIT BUT SHE REFUSED VERY UPSET STATING THAT THAT WAS HER TIME TO SPEND WITH HER DTR.CH. NURSE ASKED HER TO PLS BRING PT. BACK IF SHE NEEDED SUCTION BECAUSE THE PORTABLE SUCTION MACHINES WERE IN THE WAY AND ALSO THE SHORT USUCTION TUBES WERE IN THE WAY TO THE UNIT BUT FOR THE WELL BEING OF THE PT. WAS BETTER TO BRING HER BACK SO SHE CAN BE CHECKED AND SHE REFUSED TO DO IT.PACKING HOUSE SUPERVISOR AND TRAFFIC RATE COMPUTER WERE NOTIFIED ABOUT HER BEHAVIOR.
--- NOTE | 2019-06-13 15:30 | NUR ---
PT. WAS BROUGHT BY HER MOTHER AND PROFESSIONAL ARCHITECT THAT PROVIDED HER PORTABLE SUCTION MACHINE CHECKED TOGETHER WITH PT'S MOTHER AND NOTHING WAS MISSING AND THE MACHINE WAS WORKING PROPERLY AND PROFESSIONAL ARCHITECT EXPLAINED TP CH. NURSE THAT SHE WAS TEACHING HER ALSO HOW TO USE IT AND AFTER THAT PT'S MOTHER APOLOGIZED .PT. OBSERVED WITH NO DISTRESS AT ALL.
--- NOTE | 2019-06-13 16:13 | NUR ---
3:55pm: SAPNA met with patient's mother Abdoul. Abdoul had asked this SW for a write up on the steps for the [facility] clinical study that were described by Dr. Dawson during the assessment on 06/10/2019. SAPNA wrote out the steps and provided Abdoul with a copy. Sarahroman then inquired about patient's Medi-loli status and how to disenroll from her current health plan and re-enroll into straight Medi-loli (Abdoul has previously met with [facility] communications representative Nancy Matthews). SAPNA stated that Abdoul would have to go to the local DPSS office and discuss this request with them, and find out what the protocol would be for that. SAPNA educated Abdoul on the need to be an authorized communications representative on patient's Medi-loli case in order to be able to make changes to the insurance, and referred Abdoul to the DPSS office to find out what is needed to be an authorized communications representative. Abdoul asked SAPNA for the locations of the local DPSS offices, and SAPNA stated she would provide Abdoul with this information on Sunday, and Abdoul agreed. SAPNA also generated a discussion with Abdoul regarding applying for truck terminal manager disability for the patient through Social Security. Abdoul expressed not being sure if she had done so while patient was at [facility]. SAPNA suggested that Marileedevin would need to follow-up with Social Security, and that SAPNA can provide instructions to Abdoul on how to do so. Abdoul expressed agreement. SAPNA offered to schedule a meeting with Abdoul for Sunday in order for this SAPNA, Abdoul, and Blending Plant Operator German Liu to discuss all above, along with ongoing care needs for the patient. SAPNA scheduled a meeting for Sunday06/16/2019 at 3pm, and Abdoul agreed. SAPNA informed Blending Plant Operator German Liu of meeting date/time, and German was in agreement.
[2019-06-13] MEDS: FERROUS SULFATE 330 MG/7.5 ML UDC- FOR SA ONLY GT SCH (20:09)
[2019-06-13] MEDS: MULTIVIT, IRON, MIN NO. 8, FA TABLET GT SCH (20:09)
[2019-06-13] MEDS: RANITIDINE 300 MG GT SCH (20:09)
[2019-06-13] MEDS: MELATONIN 5MG TABLET GT SCH (20:09)
[2019-06-13] MEDS: ADAPALENE 0.3% TP SCH (20:10)
[2019-06-13 22:29] VITALS: BP 128/96
[2019-06-14] MEDS: CALCIUM CARBONATE 500 MG TAB.CHEW GT SCH ×2 (05:15→18:03)
[2019-06-14] MEDS: hydrALAZINE HCL 10 MG TABLET GT SCH ×4 (05:15→18:00)
[2019-06-14 08:00] VITALS: BP 119/68
[2019-06-14] MEDS: ACIDOPHILUS/BULGARICUS CHEW TAB GT SCH ×2 (08:27→20:00)
[2019-06-14] MEDS: LACOSAMIDE 100 MG/10 ML UDC GT SCH ×2 (08:27→20:00)
[2019-06-14] MEDS: AMLODIPINE 10 MG TABLET GT SCH (08:27)
[2019-06-14] MEDS: levETIRAcetam 500 MG/5 ML LIQUID UDC GT SCH ×2 (08:27→20:00)
[2019-06-14] MEDS: NUTRISOURCE FIBER 4 GM PACKET GT SCH (08:27)
[2019-06-14] MEDS: METOPROLOL TARTRATE 50 MG TABLET GT SCH ×2 (08:27→20:07)
[2019-06-14] MEDS: HEPARIN SODIUM,PORCINE 5,000 UNITS/ML VIAL SQ SCH ×2 (08:28→20:06)
[2019-06-14] MEDS: CLINDAMYCIN TP SCH (08:28)
[2019-06-14] MEDS: COD LIVER OIL/ZINC OXIDE OINT 113 GM TUBE TP SCH ×2 (08:28→20:08)
[2019-06-14] MEDS: HYDROGEN PEROXIDE 3% 118 ML BOTTLE TOP SCH ×2 (09:00→21:48)
[2019-06-14] MEDS: FERROUS SULFATE 330 MG/7.5 ML UDC- FOR SA ONLY GT SCH (20:00)
[2019-06-14] MEDS: RANITIDINE 300 MG GT SCH (20:01)
[2019-06-14] MEDS: MELATONIN 5MG TABLET GT SCH (20:01)
[2019-06-14] MEDS: MULTIVIT, IRON, MIN NO. 8, FA TABLET GT SCH (20:02)
[2019-06-14] MEDS: ADAPALENE 0.3% TP SCH (20:08)
[2019-06-14 22:07] VITALS: BP 131/71
[2019-06-15] MEDS: JEVITY 1.2 1000 ML LIQUID GT PRN ×3 (01:11→15:05)
[2019-06-15] MEDS: hydrALAZINE HCL 10 MG TABLET GT SCH ×5 (05:17→23:19)
[2019-06-15] MEDS: CALCIUM CARBONATE 500 MG TAB.CHEW GT SCH ×2 (05:17→17:33)
[2019-06-15] MEDS: LACOSAMIDE 100 MG/10 ML UDC GT SCH ×2 (08:07→20:24)
[2019-06-15] MEDS: levETIRAcetam 500 MG/5 ML LIQUID UDC GT SCH ×2 (08:07→20:24)
[2019-06-15] MEDS: ACIDOPHILUS/BULGARICUS CHEW TAB GT SCH ×2 (08:07→20:24)
[2019-06-15] MEDS: CLINDAMYCIN TP SCH (08:09)
[2019-06-15] MEDS: NUTRISOURCE FIBER 4 GM PACKET GT SCH (08:09)
[2019-06-15] MEDS: HEPARIN SODIUM,PORCINE 5,000 UNITS/ML VIAL SQ SCH ×2 (08:09→20:25)
[2019-06-15] MEDS: COD LIVER OIL/ZINC OXIDE OINT 113 GM TUBE TP SCH ×2 (08:09→20:25)
[2019-06-15] MEDS: HYDROGEN PEROXIDE 3% 118 ML BOTTLE TOP SCH ×2 (08:11→21:27)
[2019-06-15] MEDS: METOPROLOL TARTRATE 50 MG TABLET GT SCH ×2 (08:16→20:24)
[2019-06-15] MEDS: AMLODIPINE 10 MG TABLET GT SCH (08:17)
[2019-06-15 11:09] VITALS: BP 118/69
[2019-06-15] MEDS: RANITIDINE 300 MG GT SCH (20:24)
[2019-06-15] MEDS: MULTIVIT, IRON, MIN NO. 8, FA TABLET GT SCH (20:24)
[2019-06-15] MEDS: FERROUS SULFATE 330 MG/7.5 ML UDC- FOR SA ONLY GT SCH (20:24)
[2019-06-15] MEDS: MELATONIN 5MG TABLET GT SCH (20:24)
[2019-06-15] MEDS: ADAPALENE 0.3% TP SCH (20:25)
[2019-06-15 22:21] VITALS: BP 132/76
[2019-06-16] MEDS: hydrALAZINE HCL 10 MG TABLET GT SCH ×3 (05:39→18:09)
[2019-06-16] MEDS: CALCIUM CARBONATE 500 MG TAB.CHEW GT SCH ×2 (05:39→18:09)
[2019-06-16] MEDS: NUTRISOURCE FIBER 4 GM PACKET GT SCH (08:16)
[2019-06-16] MEDS: HYDROGEN PEROXIDE 3% 118 ML BOTTLE TOP SCH ×2 (08:17→21:18)
[2019-06-16] MEDS: LACOSAMIDE 100 MG/10 ML UDC GT SCH ×2 (08:25→20:43)
[2019-06-16] MEDS: levETIRAcetam 500 MG/5 ML LIQUID UDC GT SCH ×2 (08:25→20:43)
[2019-06-16] MEDS: METOPROLOL TARTRATE 50 MG TABLET GT SCH ×2 (08:28→21:51)
[2019-06-16] MEDS: AMLODIPINE 10 MG TABLET GT SCH (08:28)
[2019-06-16] MEDS: ACIDOPHILUS/BULGARICUS CHEW TAB GT SCH ×2 (08:28→20:43)
[2019-06-16] MEDS: HEPARIN SODIUM,PORCINE 5,000 UNITS/ML VIAL SQ SCH ×2 (08:30→20:44)
[2019-06-16] MEDS: COD LIVER OIL/ZINC OXIDE OINT 113 GM TUBE TP SCH ×2 (08:30→20:44)
[2019-06-16] MEDS: CLINDAMYCIN TP SCH (08:31)
--- NOTE | 2019-06-16 12:00 | NUR ---
PT. WAS SEEN AND EXAMINED BY QUAN Sharma AND DR. SOTO AND WITH NNO.
[2019-06-16 14:40] VITALS: BP 117/63
--- NOTE | 2019-06-16 16:45 | NUR ---
3:00pm: Family meeting held today with patient's mother Abdoul. Present at the meeting were Abdoul, anders ALEJO, and subacute Income Tax Return Preparer German Liu. The following topics were discussed: 1) Abdoul is requesting to change patient's insurance from [employer] Medi-loli to straight Medi-loli. Abdoul stated that she was told that the Income Tax Return Preparer can make this change. This SAPNA and Income Tax Return Preparer German Liu explained to Abdoul that the information she was given was incorrect, and only legal fulfillment representative or authorized representatives can make this change, per Medi-loli policy. SAPNA referred Abdoul to the local DPSS office (either [address] [facility]; or [phone] [facility]), and instructed her to discuss with them what the process is to become an authorized fulfillment representative on patient's Medi-loli case, and what the process is to then change patient's Medi-loli to straight Medi-loli. SAPNA provided Abdoul with the addresses, phone numbers, and hours of operation of both local DPSS office to Abdoul. Abdoul stated she will go there tomorrow morning. Both this SAPNA and Income Tax Return Preparer German Liu reminded Abdoul that the neurologist Abdoul would like to take the patient to, Dr. Matute at [facility], only accepts straight Medi-loli, and that an appointment with Dr. Matute would only be pursued once patient Medi-loli status is confirmed to be straight Medi-loli. Abdoul expressed understanding. 2) SAPNA provided Abdoul with information on how to apply for long-term disability for the patient, providing Abdoul with the address to the nearest Social Security office [id number] [place] [address], [address], [place], along with a print out of how to apply for rat exterminator disability, and an informational packet on disability benefits. Abdoul stated that she is familiar with the Social Security office in [place], and that she will go there instead of the one in [place]. 3) Income Tax Return Preparer German Liu provided education to Abdoul about the policies pertaining to personal items allowed in patient's rooms, and the policies for how to store items in patient's rooms. Abdoul expressed understanding. A family conference sign-in sheet was signed by Abdoul, anders ALEJO, and Income Tax Return Preparer German Liu. Details of what was discussed was written on the sign-in sheet by this SW. This SW also attached copies of all the above listed resources that were provided. Addendum: 06/17/19 at 1037 by FERNANDO ALEJO Patient's mother Abdoul also informed this SAPNA and Income Tax Return Preparer German Liu during this meeting that she received an email from Dr. Dawson at [facility] regarding the clinical research study, and Dr. Dawson stated that patient has been scheduled for the 2 appointments on July 27 and August 03. SW to follow-up with Dr. Dawson and work with Dr. Dawson in coordinating all necessary arrangements needed for the clinical research study process.
[2019-06-16] MEDS: MELATONIN 5MG TABLET GT SCH (20:43)
[2019-06-16] MEDS: RANITIDINE 300 MG GT SCH (20:43)
[2019-06-16] MEDS: FERROUS SULFATE 330 MG/7.5 ML UDC- FOR SA ONLY GT SCH (20:43)
[2019-06-16] MEDS: ADAPALENE 0.3% TP SCH (20:44)
[2019-06-16] MEDS: MULTIVIT, IRON, MIN NO. 8, FA TABLET GT SCH (20:44)
[2019-06-16 22:18] VITALS: BP 135/94
[2019-06-17] MEDS: JEVITY 1.2 1000 ML LIQUID GT PRN (01:05)
[2019-06-17] MEDS: hydrALAZINE HCL 10 MG TABLET GT SCH ×4 (05:05→17:08)
[2019-06-17] MEDS: CALCIUM CARBONATE 500 MG TAB.CHEW GT SCH ×2 (05:05→17:09)
[2019-06-17] MEDS: HYDROGEN PEROXIDE 3% 118 ML BOTTLE TOP SCH ×2 (08:09→21:24)
[2019-06-17] MEDS: levETIRAcetam 500 MG/5 ML LIQUID UDC GT SCH ×2 (08:33→20:00)
[2019-06-17] MEDS: LACOSAMIDE 100 MG/10 ML UDC GT SCH ×2 (08:33→20:00)
[2019-06-17] MEDS: ACIDOPHILUS/BULGARICUS CHEW TAB GT SCH ×2 (08:34→21:12)
[2019-06-17] MEDS: NUTRISOURCE FIBER 4 GM PACKET GT SCH (08:35)
[2019-06-17] MEDS: AMLODIPINE 10 MG TABLET GT SCH (08:35)
[2019-06-17] MEDS: METOPROLOL TARTRATE 50 MG TABLET GT SCH ×2 (08:35→21:13)
[2019-06-17] MEDS: COD LIVER OIL/ZINC OXIDE OINT 113 GM TUBE TP SCH ×2 (08:35→21:13)
[2019-06-17] MEDS: CLINDAMYCIN TP SCH (08:35)
[2019-06-17] MEDS: HEPARIN SODIUM,PORCINE 5,000 UNITS/ML VIAL SQ SCH ×2 (08:37→21:13)
[2019-06-17 09:20] VITALS: BP 111/48
--- NOTE | 2019-06-17 10:37 | NUR ---
SAPNA emailed Dr. Dawson, [facility] clinical research study, this morning [email or web address], confirming the appointment dates of July 27 and August 03 that patient's mother Abdoul had told this SAPNA and vice president of nursing German Liu yesterday. In the email, SAPNA asked Dr. Dawson to provide information to this SAPNA regarding the ambulance transportation company that [facility] uses, and all information pertaining to preparations and follow-ups for the clinical research study process. SAPNA cc-ed patient's mother Abdoul and vice president of nursing German Liu on this email.
--- NOTE | 2019-06-17 11:00 | NUR ---
Seen and examined by Priti Do,no new orders.
[2019-06-17 20:30] VITALS: BP 129/85
[2019-06-17] MEDS: FERROUS SULFATE 330 MG/7.5 ML UDC- FOR SA ONLY GT SCH (21:12)
[2019-06-17] MEDS: MELATONIN 5MG TABLET GT SCH (21:13)
[2019-06-17] MEDS: RANITIDINE 300 MG GT SCH (21:13)
[2019-06-17] MEDS: MULTIVIT, IRON, MIN NO. 8, FA TABLET GT SCH (21:13)
[2019-06-17] MEDS: ADAPALENE 0.3% TP SCH (21:14)
[2019-06-18] MEDS: hydrALAZINE HCL 10 MG TABLET GT SCH ×4 (05:54→17:25)
[2019-06-18] MEDS: CALCIUM CARBONATE 500 MG TAB.CHEW GT SCH ×2 (05:55→17:26)
[2019-06-18] MEDS: LACOSAMIDE 100 MG/10 ML UDC GT SCH ×2 (08:39→20:00)
[2019-06-18] MEDS: levETIRAcetam 500 MG/5 ML LIQUID UDC GT SCH ×2 (08:39→20:00)
[2019-06-18] MEDS: ACIDOPHILUS/BULGARICUS CHEW TAB GT SCH ×2 (08:40→20:01)
[2019-06-18] MEDS: METOPROLOL TARTRATE 50 MG TABLET GT SCH ×2 (08:40→21:00)
[2019-06-18] MEDS: AMLODIPINE 10 MG TABLET GT SCH (08:40)
[2019-06-18] MEDS: COD LIVER OIL/ZINC OXIDE OINT 113 GM TUBE TP SCH ×2 (08:41→20:02)
[2019-06-18] MEDS: NUTRISOURCE FIBER 4 GM PACKET GT SCH (08:41)
[2019-06-18] MEDS: CLINDAMYCIN TP SCH (08:41)
[2019-06-18] MEDS: HEPARIN SODIUM,PORCINE 5,000 UNITS/ML VIAL SQ SCH ×2 (08:42→20:02)
[2019-06-18] MEDS: HYDROGEN PEROXIDE 3% 118 ML BOTTLE TOP SCH ×2 (09:00→21:53)
[2019-06-18 11:03] VITALS: BP 107/56
[2019-06-18] MEDS: FERROUS SULFATE 330 MG/7.5 ML UDC- FOR SA ONLY GT SCH (20:00)
[2019-06-18] MEDS: MELATONIN 5MG TABLET GT SCH (20:01)
[2019-06-18] MEDS: MULTIVIT, IRON, MIN NO. 8, FA TABLET GT SCH (20:01)
[2019-06-18] MEDS: RANITIDINE 300 MG GT SCH (20:01)
[2019-06-18] MEDS: ADAPALENE 0.3% TP SCH (20:02)
[2019-06-18 20:50] VITALS: BP 137/75
[2019-06-19] MEDS: CALCIUM CARBONATE 500 MG TAB.CHEW GT SCH ×2 (05:26→17:32)
[2019-06-19] MEDS: hydrALAZINE HCL 10 MG TABLET GT SCH ×5 (05:26→23:00)
[2019-06-19] MEDS: HYDROGEN PEROXIDE 3% 118 ML BOTTLE TOP SCH ×2 (07:51→21:10)
[2019-06-19] MEDS: ACIDOPHILUS/BULGARICUS CHEW TAB GT SCH ×2 (08:01→20:07)
[2019-06-19] MEDS: levETIRAcetam 500 MG/5 ML LIQUID UDC GT SCH ×2 (08:01→20:07)
[2019-06-19] MEDS: LACOSAMIDE 100 MG/10 ML UDC GT SCH ×2 (08:01→20:07)
[2019-06-19] MEDS: NUTRISOURCE FIBER 4 GM PACKET GT SCH (08:02)
[2019-06-19] MEDS: METOPROLOL TARTRATE 50 MG TABLET GT SCH ×2 (08:02→20:07)
[2019-06-19] MEDS: AMLODIPINE 10 MG TABLET GT SCH (08:02)
[2019-06-19] MEDS: CLINDAMYCIN TP SCH (08:04)
[2019-06-19] MEDS: COD LIVER OIL/ZINC OXIDE OINT 113 GM TUBE TP SCH ×2 (08:04→20:12)
[2019-06-19] MEDS: HEPARIN SODIUM,PORCINE 5,000 UNITS/ML VIAL SQ SCH ×2 (08:04→20:10)
[2019-06-19 12:35] VITALS: BP 109/58
--- NOTE | 2019-06-19 16:32 | NUR ---
SAPNA informed patient's mother Abdoul that the next IDT meeting for the patient is scheduled for 06/24/2019 at 11am.
[2019-06-19] MEDS: FERROUS SULFATE 330 MG/7.5 ML UDC- FOR SA ONLY GT SCH (20:07)
[2019-06-19] MEDS: RANITIDINE 300 MG GT SCH (20:07)
[2019-06-19] MEDS: MELATONIN 5MG TABLET GT SCH (20:07)
[2019-06-19] MEDS: MULTIVIT, IRON, MIN NO. 8, FA TABLET GT SCH (20:07)
[2019-06-19] MEDS: ADAPALENE 0.3% TP SCH (20:12)
[2019-06-19] MEDS: JEVITY 1.2 1000 ML LIQUID GT PRN (20:28)
[2019-06-19 20:50] VITALS: BP 148/82
[2019-06-20] MEDS: CALCIUM CARBONATE 500 MG TAB.CHEW GT SCH ×2 (05:28→17:50)
[2019-06-20] MEDS: hydrALAZINE HCL 10 MG TABLET GT SCH ×4 (05:28→23:04)
[2019-06-20] MEDS: levETIRAcetam 500 MG/5 ML LIQUID UDC GT SCH ×2 (08:15→20:00)
[2019-06-20] MEDS: LACOSAMIDE 100 MG/10 ML UDC GT SCH ×2 (08:15→20:01)
[2019-06-20] MEDS: ACIDOPHILUS/BULGARICUS CHEW TAB GT SCH ×2 (08:15→20:01)
[2019-06-20] MEDS: AMLODIPINE 10 MG TABLET GT SCH (08:16)
[2019-06-20] MEDS: METOPROLOL TARTRATE 50 MG TABLET GT SCH ×2 (08:16→20:02)
[2019-06-20] MEDS: NUTRISOURCE FIBER 4 GM PACKET GT SCH (08:17)
[2019-06-20] MEDS: COD LIVER OIL/ZINC OXIDE OINT 113 GM TUBE TP SCH ×2 (08:19→20:01)
[2019-06-20] MEDS: CLINDAMYCIN TP SCH (08:19)
[2019-06-20] MEDS: HEPARIN SODIUM,PORCINE 5,000 UNITS/ML VIAL SQ SCH ×2 (08:19→20:00)
[2019-06-20] MEDS: HYDROGEN PEROXIDE 3% 118 ML BOTTLE TOP SCH ×2 (09:00→21:59)
[2019-06-20 12:27] VITALS: BP 109/65
[2019-06-20] MEDS: JEVITY 1.2 1000 ML LIQUID GT PRN (17:53)
--- NOTE | 2019-06-20 18:00 | NUR ---
Mother concern about yellowish secretions, Dr. Ramos notifed, no new orders given at this time, stated "let's just watch her for now".
[2019-06-20] MEDS: RANITIDINE 300 MG GT SCH (20:01)
[2019-06-20] MEDS: MULTIVIT, IRON, MIN NO. 8, FA TABLET GT SCH (20:01)
[2019-06-20] MEDS: MELATONIN 5MG TABLET GT SCH (20:01)
[2019-06-20] MEDS: FERROUS SULFATE 330 MG/7.5 ML UDC- FOR SA ONLY GT SCH (20:01)
[2019-06-20 20:49] VITALS: BP 120/71
[2019-06-20] MEDS: ADAPALENE 0.3% TP SCH (21:00)
[2019-06-21] MEDS: CALCIUM CARBONATE 500 MG TAB.CHEW GT SCH ×2 (06:05→18:05)
[2019-06-21] MEDS: hydrALAZINE HCL 10 MG TABLET GT SCH ×4 (06:05→23:01)
[2019-06-21] MEDS: LACOSAMIDE 100 MG/10 ML UDC GT SCH ×2 (08:23→20:15)
[2019-06-21] MEDS: ACIDOPHILUS/BULGARICUS CHEW TAB GT SCH ×2 (08:23→20:15)
[2019-06-21] MEDS: levETIRAcetam 500 MG/5 ML LIQUID UDC GT SCH ×2 (08:23→20:15)
[2019-06-21] MEDS: METOPROLOL TARTRATE 50 MG TABLET GT SCH ×2 (08:23→20:15)
[2019-06-21] MEDS: AMLODIPINE 10 MG TABLET GT SCH (08:24)
[2019-06-21] MEDS: NUTRISOURCE FIBER 4 GM PACKET GT SCH (08:24)
[2019-06-21] MEDS: COD LIVER OIL/ZINC OXIDE OINT 113 GM TUBE TP SCH ×2 (08:26→20:16)
[2019-06-21] MEDS: HEPARIN SODIUM,PORCINE 5,000 UNITS/ML VIAL SQ SCH ×2 (08:26→20:14)
[2019-06-21] MEDS: CLINDAMYCIN TP SCH (08:27)
[2019-06-21] MEDS: JEVITY 1.2 1000 ML LIQUID GT PRN ×2 (08:28→21:51)
[2019-06-21] MEDS: HYDROGEN PEROXIDE 3% 118 ML BOTTLE TOP SCH ×2 (09:20→21:00)
[2019-06-21 12:00] VITALS: BP 106/61
[2019-06-21 20:03] VITALS: BP 118/73
[2019-06-21] MEDS: RANITIDINE 300 MG GT SCH (20:15)
[2019-06-21] MEDS: MELATONIN 5MG TABLET GT SCH (20:15)
[2019-06-21] MEDS: MULTIVIT, IRON, MIN NO. 8, FA TABLET GT SCH (20:15)
[2019-06-21] MEDS: FERROUS SULFATE 330 MG/7.5 ML UDC- FOR SA ONLY GT SCH (20:15)
[2019-06-21] MEDS: ADAPALENE 0.3% TP SCH (20:16)
[2019-06-22] MEDS: hydrALAZINE HCL 10 MG TABLET GT SCH ×4 (05:36→23:05)
[2019-06-22] MEDS: CALCIUM CARBONATE 500 MG TAB.CHEW GT SCH ×2 (05:36→18:05)
[2019-06-22 08:00] VITALS: BP 116/57
[2019-06-22] MEDS: levETIRAcetam 500 MG/5 ML LIQUID UDC GT SCH ×2 (08:10→20:22)
[2019-06-22] MEDS: LACOSAMIDE 100 MG/10 ML UDC GT SCH ×2 (08:10→20:22)
[2019-06-22] MEDS: ACIDOPHILUS/BULGARICUS CHEW TAB GT SCH ×2 (08:11→20:22)
[2019-06-22] MEDS: HEPARIN SODIUM,PORCINE 5,000 UNITS/ML VIAL SQ SCH ×2 (08:16→21:02)
[2019-06-22] MEDS: METOPROLOL TARTRATE 50 MG TABLET GT SCH ×2 (08:16→20:22)
[2019-06-22] MEDS: AMLODIPINE 10 MG TABLET GT SCH (08:16)
[2019-06-22] MEDS: NUTRISOURCE FIBER 4 GM PACKET GT SCH (08:16)
[2019-06-22] MEDS: COD LIVER OIL/ZINC OXIDE OINT 113 GM TUBE TP SCH ×2 (08:17→20:23)
[2019-06-22] MEDS: CLINDAMYCIN TP SCH (08:17)
[2019-06-22] MEDS: HYDROGEN PEROXIDE 3% 118 ML BOTTLE TOP SCH ×2 (09:10→20:23)
--- NOTE | 2019-06-22 12:00 | NUR ---
Mother concern regarding pt has redness on the R axilla,and skin tear,she reported to the Laboratory Director last night,at this time no bleeding noted.
[2019-06-22] MEDS: JEVITY 1.2 1000 ML LIQUID GT PRN (13:13)
--- NOTE | 2019-06-22 19:58 | NUR ---
New tx ordered for r axilla redness,carried out,mother agreed with plan of care.
[2019-06-22] MEDS: FERROUS SULFATE 330 MG/7.5 ML UDC- FOR SA ONLY GT SCH (20:22)
[2019-06-22] MEDS: RANITIDINE 300 MG GT SCH (20:23)
[2019-06-22] MEDS: MULTIVIT, IRON, MIN NO. 8, FA TABLET GT SCH (20:23)
[2019-06-22] MEDS: MELATONIN 5MG TABLET GT SCH (20:23)
[2019-06-22] MEDS: ADAPALENE 0.3% TP SCH (20:23)
[2019-06-22 23:00] VITALS: BP 106/70
[2019-06-23] MEDS: JEVITY 1.2 1000 ML LIQUID GT PRN (04:33)
--- NOTE | 2019-06-23 05:00 | NUR ---
Patient slept most of the night, no signs of any distress, with ongoing treatment to right axilla redness, kept skin clean and dry, will continue monitor.
[2019-06-23] MEDS: hydrALAZINE HCL 10 MG TABLET GT SCH ×4 (06:07→22:59)
[2019-06-23] MEDS: CALCIUM CARBONATE 500 MG TAB.CHEW GT SCH ×2 (06:08→17:45)
[2019-06-23 08:00] VITALS: BP 121/70
[2019-06-23] MEDS: LACOSAMIDE 100 MG/10 ML UDC GT SCH ×2 (08:50→20:14)
[2019-06-23] MEDS: METOPROLOL TARTRATE 50 MG TABLET GT SCH ×2 (08:51→20:16)
[2019-06-23] MEDS: ACIDOPHILUS/BULGARICUS CHEW TAB GT SCH ×2 (08:51→20:24)
[2019-06-23] MEDS: AMLODIPINE 10 MG TABLET GT SCH (08:51)
[2019-06-23] MEDS: levETIRAcetam 500 MG/5 ML LIQUID UDC GT SCH ×2 (08:51→20:13)
[2019-06-23] MEDS: NUTRISOURCE FIBER 4 GM PACKET GT SCH (08:53)
[2019-06-23] MEDS: HEPARIN SODIUM,PORCINE 5,000 UNITS/ML VIAL SQ SCH ×2 (08:53→20:18)
[2019-06-23] MEDS: NYSTATIN CREAM 30 GM TUBE TP SCH ×2 (08:53→20:22)
[2019-06-23] MEDS: COD LIVER OIL/ZINC OXIDE OINT 113 GM TUBE TP SCH ×2 (08:53→20:22)
[2019-06-23] MEDS: CLINDAMYCIN TP SCH (08:54)
[2019-06-23] MEDS: HYDROGEN PEROXIDE 3% 118 ML BOTTLE TOP SCH ×2 (09:31→20:22)
--- NOTE | 2019-06-23 20:00 | NUR ---
vss 99.0-120-20-bp 119/80. SATS 99%. COLOR GOOD. PATIENT IS NONVERBAL. MOTHER AT BEDSIDE. SKIN WARM, DRY, AND INTACT. PATIENT TRACHED AND ON 28% MIST MASK. PATIENT OPENS EYES AND TENDS TO STARE OFF INTO SPACE. GRIMACES TO NOXIOUS STIMULI. DOES NOT OBEY COMMANDS. ABDOMEN SOFT WITH +BOWEL SOUNDS AND GTUBE FOR FEEDING CONTINUOUSLY. NO HAMILTON SO PATIENT IS INCONTINENT OF BOWEL AND BLADDER. NO ACTIVE ROM AND PATIENT IS CONTRACTED. NO SIGNS OF ACUTE CARDIAC/RESPIRATORY DISTRESS OR SUPPRESSION . TURNED Q 2 HOURS ATC. Addendum: 06/24/19 at 0206 by JASON TABOR RN Amended: Links added.
[2019-06-23] MEDS: FERROUS SULFATE 330 MG/7.5 ML UDC- FOR SA ONLY GT SCH (20:15)
[2019-06-23] MEDS: RANITIDINE 300 MG GT SCH (20:16)
[2019-06-23] MEDS: MELATONIN 5MG TABLET GT SCH (20:21)
[2019-06-23] MEDS: MULTIVIT, IRON, MIN NO. 8, FA TABLET GT SCH (20:22)
[2019-06-23] MEDS: ADAPALENE 0.3% TP SCH (20:22)
[2019-06-23 22:26] VITALS: BP 120/80
--- NOTE | 2019-06-23 23:00 | NUR ---
HR=85, BP 103/61 . NURSE EXPLAINED ALL MEDICATIONS PRIOR TO ADMINISTRATION.PATIENT'S HYDRALAZINE DUE AT 2400 BUT MOTHER INSISTED THAT THE HYDRALAZINE BE GIVEN NOW. NURSE OBTAINED NEW BP OF 103/61 AND IT FALLS BELOW THE PARAMETERS, HYDRALAZINE HELD PER PHYSICIANS ORDER. PATIENT'S MOTHER IN ROOM AND QUESTIONING NURSE PROFUSELY. EVEN THOUGH NURSE TOOK PRE VSS AND TREATED PATIENT ACCORDINGLY, PATIENTS' MOTHER CONTINUES TO ACCUSE NURSE OF NOT TAKING THE PREBP. EVENTUALLY, DRY CLEANER PRESSER HAD TO BE BROUGHT IN TO SPEAK TO MOTHER AND ASSISGNMENT WAS CHANGED TO PROVIDE PATIENT ANOTHER NURSE. CARE OF THIS PATIENT BEING HANDED OVER TO ANOTHER RN.
[2019-06-24] MEDS: JEVITY 1.2 1000 ML LIQUID GT PRN ×2 (00:51→15:18)
[2019-06-24] MEDS: hydrALAZINE HCL 10 MG TABLET GT SCH ×4 (06:00→22:00)
[2019-06-24] MEDS: CALCIUM CARBONATE 500 MG TAB.CHEW GT SCH ×2 (06:35→17:43)
[2019-06-24] MEDS: LACOSAMIDE 100 MG/10 ML UDC GT SCH ×2 (08:31→20:11)
[2019-06-24] MEDS: levETIRAcetam 500 MG/5 ML LIQUID UDC GT SCH ×2 (08:31→20:11)
[2019-06-24] MEDS: ACIDOPHILUS/BULGARICUS CHEW TAB GT SCH ×2 (08:31→20:11)
[2019-06-24] MEDS: NUTRISOURCE FIBER 4 GM PACKET GT SCH (08:32)
[2019-06-24] MEDS: CLINDAMYCIN TP SCH (08:32)
[2019-06-24] MEDS: COD LIVER OIL/ZINC OXIDE OINT 113 GM TUBE TP SCH ×2 (08:32→20:12)
[2019-06-24] MEDS: METOPROLOL TARTRATE 50 MG TABLET GT SCH ×2 (08:32→20:12)
[2019-06-24] MEDS: NYSTATIN CREAM 30 GM TUBE TP SCH ×2 (08:33→20:12)
[2019-06-24] MEDS: AMLODIPINE 10 MG TABLET GT SCH (09:34)
[2019-06-24] MEDS: HEPARIN SODIUM,PORCINE 5,000 UNITS/ML VIAL SQ SCH ×2 (09:43→20:16)
[2019-06-24] MEDS: HYDROGEN PEROXIDE 3% 118 ML BOTTLE TOP SCH ×2 (09:51→21:37)
[2019-06-24 11:11] VITALS: BP 138/85
--- NOTE | 2019-06-24 14:48 | NUR ---
INTERDISCIPLINARY PLAN OF CARE CONFERENCE was held today. Patient's mother Abdoul was present at the meeting. Dr. Ramos and the Interdisciplinary Team reviewed the current plan of care in detail. RN reported on patient's medical condition and current skin treatment. See RN IDT conference notes. No major changes in condition were reported. SW reported that patient is scheduled for the [facility] clinical research study on July 27 and August 03, and that SW is awaiting further instructions from [facility] regarding preparations for the research study. See all other disciplines IDT notes and physician's progress notes for additional details. Abdoul's questions were addressed by the IDT team.
--- NOTE | 2019-06-24 15:04 | NUR ---
Pharmacy Update from Today's 06/24/19 IDT Meeting VS: Temp 99 HR 120 BP 120/80 LABS: (from 04/29/19, no new labs) Wbc 8.2 H/H 12.7/37.6 Plt 412 Na 138 K 3.8 Cl 101 CO2 28 BUN/SCr 15/0.5 BS 123 Ca 9.5 phos 5.2 Mg 2.0 MEDICATION USE REVIEWED: > Pt not on any anti-psych medications > Pt on Keppra 1000mg q12hr since 03/11/19. CrCl 116, ok per renal function. Neurology continues to follow and adjust > Pt on Vimpat 200mg q12hr since 04/18/19 per neurology > Pt on ativan 0.5mg q12h PRN agitation m/b tachycardia, increased perspiration, grimacing, biting lips, musc tension, started 04/06 per neurology. Used x7 in May, effective per staff > Pt on Heparin 5000mg q12hr for DVT prophylaxis. No bleeding noted; Last plt 449 > On Norvasc 10mg daily, hydralazine 10mg q6hr, lopressor 50mg q12hr with hold parameters. Last BP 120/80 > Pt on ranitidine 300mg qhs started 06/12 (changed from omeprazole per pt insurance), ok dose per renal function PRN MED USAGE: (May) Tylenol for pain used x6 Tylenol for fever used x0 Hydralazine for SBP>180 used x0 Artificial tears PRN used x0 Lorazepam PRN seizures/spasms used x3 [place] used x3 NEW ORDERS NOTED: > NA Patient was reviewed and discussed in depth with all medication changes and issues noted per team. Family in attendance, again requesting timing adjustments to medication and vital checks. Per team discussion, and rx rec, as pt's BP is well controlled and even low at times, may be able to adjust hydralazine to q8hr freq as may not need. Pt also receives norvasc and lopressor. Will f/u with primary MD if amenable to change or trial at this time. Will continue to follow
--- NOTE | 2019-06-24 15:08 | NUR ---
Seen and examined by Dr Kiran ,with new orders noted.
[2019-06-24 15:34] LABS: BASOPHILS # (AUTO) 0.1 K/uL (0.0-8.0); BASOPHILS % (AUTO) 0.4 % (0.0-2.0); EOSINOPHILS # (AUTO) 0.4 K/uL (0.0-0.7); EOSINOPHILS % (AUTO) 3.1 % (0.0-7.0); HEMATOCRIT 39.3 % (31.2-41.9); HEMOGLOBIN 13.4 g/dL (10.9-14.3); LYMPHOCYTES # (AUTO) 2.1 K/uL (20.0-40.0); LYMPHOCYTES % (AUTO) 16.8 % (20.5-51.5); MEAN CORPUSCULAR HEMOGLOBIN 30.9 uug (24.7-32.8); MEAN CORPUSCULAR HGB CONC 34 g/dL (32.3-35.6); MEAN CORPUSCULAR VOLUME 90.4 fL (75.5-95.3); MONOCYTES # (AUTO) 0.8 K/uL (2.0-10.0); MONOCYTES % (AUTO) 6.4 % (0.0-11.0); NEUTROPHILS # (AUTO) 9.2 K/uL (1.8-8.9); NEUTROPHILS % (AUTO) 73.3 % (38.5-71.5); PLATELET COUNT (AUTO) 446 K/uL (179-408); RED BLOOD CELL COUNT(AUTO) 4.34 MIL/uL (3.63-4.92); WHITE BLOOD COUNT (AUTO) 12.5 K/uL (3.8-11.8)
[2019-06-24 15:38] LABS: CARBON DIOXIDE 29 mmol/L (21-32); CHLORIDE 101 mmol/L (98-107); CREATININE 0.5 mg/dL (0.6-1.3); GLUCOSE 101 mg/dL (74-106); MAGNESIUM 2.1 mg/dL (1.8-2.4); PHOSPHOROUS 4.9 mg/dL (2.5-4.9); POTASSIUM 4.1 mmol/L (3.5-5.1); UREA NITROGEN, BLOOD 12 mg/dL (7-18)
[2019-06-24 20:00] VITALS: BP 120/76
[2019-06-24] MEDS: FERROUS SULFATE 330 MG/7.5 ML UDC- FOR SA ONLY GT SCH (20:11)
[2019-06-24] MEDS: ADAPALENE 0.3% TP SCH (20:12)
[2019-06-24] MEDS: MELATONIN 5MG TABLET GT SCH (20:12)
[2019-06-24] MEDS: MULTIVIT, IRON, MIN NO. 8, FA TABLET GT SCH (20:12)
[2019-06-24] MEDS: RANITIDINE 300 MG GT SCH (20:12)
[2019-06-25] MEDS: hydrALAZINE HCL 10 MG TABLET GT SCH ×3 (05:38→22:00)
[2019-06-25] MEDS: CALCIUM CARBONATE 500 MG TAB.CHEW GT SCH ×2 (05:38→17:58)
[2019-06-25 08:00] VITALS: BP 127/59
[2019-06-25] MEDS: levETIRAcetam 500 MG/5 ML LIQUID UDC GT SCH ×2 (08:07→20:14)
[2019-06-25] MEDS: LACOSAMIDE 100 MG/10 ML UDC GT SCH ×2 (08:07→20:14)
[2019-06-25] MEDS: AMLODIPINE 10 MG TABLET GT SCH (08:09)
[2019-06-25] MEDS: ACIDOPHILUS/BULGARICUS CHEW TAB GT SCH ×2 (08:09→20:19)
[2019-06-25] MEDS: METOPROLOL TARTRATE 50 MG TABLET GT SCH ×2 (08:09→20:19)
[2019-06-25] MEDS: NUTRISOURCE FIBER 4 GM PACKET GT SCH (08:10)
[2019-06-25] MEDS: COD LIVER OIL/ZINC OXIDE OINT 113 GM TUBE TP SCH ×2 (08:11→20:19)
[2019-06-25] MEDS: HEPARIN SODIUM,PORCINE 5,000 UNITS/ML VIAL SQ SCH ×2 (08:11→20:15)
[2019-06-25] MEDS: NYSTATIN CREAM 30 GM TUBE TP SCH ×2 (08:12→20:19)
[2019-06-25] MEDS: CLINDAMYCIN TP SCH (08:12)
[2019-06-25] MEDS: HYDROGEN PEROXIDE 3% 118 ML BOTTLE TOP SCH ×2 (10:25→21:32)
[2019-06-25] MEDS: JEVITY 1.2 1000 ML LIQUID GT PRN (10:50)
--- NOTE | 2019-06-25 12:30 | NUR ---
pt's mother advise not to take pt outside to the [place],because cold weather,She Stated "i will be outside for 30 minutes only".
--- NOTE | 2019-06-25 13:15 | NUR ---
Patient on G/C, mother took patient out, as ordered, instructed to take the portable suction machine. Prior to taking pt out, this ARTIST MODEL offered to give patient's routine medications, but mother refused at that time because she said it was to early. Addendum: 06/25/19 at 1701 by CARL LYONN this nurse instructed pt's mother to bring patient back by 3pm the latest to make sure patient gets medication on time. patients mother said, " ok."
--- NOTE | 2019-06-25 14:45 | NUR ---
Alpa Vasquez noticed pt and mother still outside ,and she called the pt's mom to find out if she wants to put the patient back to bed,Abdoul,pt's mother stated she is coming back to the room.
--- NOTE | 2019-06-25 14:55 | NUR ---
patient's mother brought patient back after LUISITO Yuen called her on her jordan phone to bring her back. This nurse unable to give medication at this time because patient was being transferred to bed. In the mean time this nurse attended to another patient's call light. RT Pepe also present. About one minute later this nurse heard patient mother yelling in the hallway, " Danya Hagan, I need a mepilex for my daughter!" This nurse answered "I am busy at this moment, can you please wait". Patient's mother continued to yell "I need it right now!" This nurse once again stated "I am busy and cant leave the room right now". After a few minutes, this nurse went to this patient's room and explained to the patient's mother that this nurse was busy with another patient and that the patient's mother could not be yelling in the hallway and that she needed to wait until this nurse was able to come to patient's room. Nurse tended to patient's needs. Mother said "I was not yelling, I only wanted Mepilex for my daughter". This nurse informed mother that next time she can press the call light for assistance, instead of yelling in the hallway.
[2019-06-25 20:00] VITALS: BP 128/79
[2019-06-25] MEDS: RANITIDINE 300 MG GT SCH (20:19)
[2019-06-25] MEDS: FERROUS SULFATE 330 MG/7.5 ML UDC- FOR SA ONLY GT SCH (20:19)
[2019-06-25] MEDS: MELATONIN 5MG TABLET GT SCH (20:19)
[2019-06-25] MEDS: MULTIVIT, IRON, MIN NO. 8, FA TABLET GT SCH (20:19)
[2019-06-25] MEDS: ADAPALENE 0.3% TP SCH (20:20)
[2019-06-26] MEDS: JEVITY 1.2 1000 ML LIQUID GT PRN ×2 (03:50→18:48)
[2019-06-26] MEDS: hydrALAZINE HCL 10 MG TABLET GT SCH ×3 (06:12→22:01)
[2019-06-26] MEDS: CALCIUM CARBONATE 500 MG TAB.CHEW GT SCH ×2 (06:12→17:55)
[2019-06-26] MEDS: HYDROGEN PEROXIDE 3% 118 ML BOTTLE TOP SCH ×2 (07:52→21:00)
[2019-06-26 08:00] VITALS: BP 104/53
[2019-06-26] MEDS: levETIRAcetam 500 MG/5 ML LIQUID UDC GT SCH ×2 (08:30→20:00)
[2019-06-26] MEDS: ACIDOPHILUS/BULGARICUS CHEW TAB GT SCH ×2 (08:31→21:21)
[2019-06-26] MEDS: LACOSAMIDE 100 MG/10 ML UDC GT SCH ×2 (08:31→20:00)
[2019-06-26] MEDS: METOPROLOL TARTRATE 50 MG TABLET GT SCH ×2 (08:32→21:22)
[2019-06-26] MEDS: AMLODIPINE 10 MG TABLET GT SCH (08:34)
[2019-06-26] MEDS: NUTRISOURCE FIBER 4 GM PACKET GT SCH (08:35)
[2019-06-26] MEDS: COD LIVER OIL/ZINC OXIDE OINT 113 GM TUBE TP SCH ×2 (08:36→21:22)
[2019-06-26] MEDS: HEPARIN SODIUM,PORCINE 5,000 UNITS/ML VIAL SQ SCH ×2 (08:36→21:21)
[2019-06-26] MEDS: NYSTATIN CREAM 30 GM TUBE TP SCH ×2 (08:54→21:22)
[2019-06-26] MEDS: CLINDAMYCIN TP SCH (09:00)
--- NOTE | 2019-06-26 11:00 | NUR ---
PT. SEEN AND EXAMINED BY DR. GERARDO ALFARO AND WITH NEW ORDERS,PT'S MOTHER IN AGREEMENT BUT SHE DELAYED THEM BEING CARRIED OUT DUE TO SHE HAD A GROUP OF SCIENTOLOGY FRIENDS PRAYING AT THIS TIME.
--- NOTE | 2019-06-26 14:00 | NUR ---
PT'S MOTHER DEMANDINF RUBBER CALENDER HELPER TO COME AND DRAW PT'S BLOOD NOW AND SHE WAS INFORMED THAT SOON SHE FINISHES WITH ER PATIENTS RUBBER CALENDER HELPER WILL COME.
--- NOTE | 2019-06-26 18:33 | NUR ---
PT'S MOTHER REQUESTED URINE SPECIMEN TO BE COLLECTED TONIGHT.
[2019-06-26 20:00] VITALS: BP 133/84
[2019-06-26] MEDS: FERROUS SULFATE 330 MG/7.5 ML UDC- FOR SA ONLY GT SCH (21:21)
[2019-06-26] MEDS: MELATONIN 5MG TABLET GT SCH (21:22)
[2019-06-26] MEDS: ADAPALENE 0.3% TP SCH (21:22)
[2019-06-26] MEDS: MULTIVIT, IRON, MIN NO. 8, FA TABLET GT SCH (21:22)
[2019-06-26] MEDS: RANITIDINE 300 MG GT SCH (21:22)
[2019-06-26 22:00] VITALS: BP 128/80
[2019-06-27 05:37] LABS: *BILIRUBIN,URIN NEGATIVE (NEGATIVE); *BLOOD, URINE NEGATIVE (NEGATIVE); *COLOR,URINE YELLOW (YELLOW); *KETONES,URINE NEGATIVE (NEGATIVE); *UROBILINOGEN,URINE 0.2 E.U./dl (NORMAL); LEUKOCYTE ESTERASE ,URINE NEGATIVE (NEGATIVE); NITRITE, URINE NEGATIVE (NEGATIVE); PH,URINE 6.5 (5.0-8.0); UGLUCOSE NEGATIVE (NEGATIVE)
[2019-06-27] MEDS: CALCIUM CARBONATE 500 MG TAB.CHEW GT SCH ×2 (06:05→17:05)
[2019-06-27] MEDS: hydrALAZINE HCL 10 MG TABLET GT SCH ×3 (06:05→21:41)
[2019-06-27 06:50] LABS: *CLARITY,URINE CLEAR (CLEAR)
[2019-06-27 07:30] LABS: BASOPHILS # (AUTO) 0.1 K/uL (0.0-8.0); BASOPHILS % (AUTO) 0.4 % (0.0-2.0); EOSINOPHILS # (AUTO) 0.3 K/uL (0.0-0.7); EOSINOPHILS % (AUTO) 2.5 % (0.0-7.0); HEMATOCRIT 37.1 % (31.2-41.9); HEMOGLOBIN 12.7 g/dL (10.9-14.3); LYMPHOCYTES # (AUTO) 1.7 K/uL (20.0-40.0); LYMPHOCYTES % (AUTO) 12.7 % (20.5-51.5); MEAN CORPUSCULAR HEMOGLOBIN 31.1 uug (24.7-32.8); MEAN CORPUSCULAR HGB CONC 34 g/dL (32.3-35.6); MEAN CORPUSCULAR VOLUME 90.9 fL (75.5-95.3); MONOCYTES # (AUTO) 0.8 K/uL (2.0-10.0); MONOCYTES % (AUTO) 5.8 % (0.0-11.0); NEUTROPHILS # (AUTO) 10.8 K/uL (1.8-8.9); NEUTROPHILS % (AUTO) 78.6 % (38.5-71.5); PLATELET COUNT (AUTO) 372 K/uL (179-408); RED BLOOD CELL COUNT(AUTO) 4.08 MIL/uL (3.63-4.92); WHITE BLOOD COUNT (AUTO) 13.8 K/uL (3.8-11.8)
[2019-06-27 07:59] LABS: CARBON DIOXIDE 28 mmol/L (21-32); CHLORIDE 102 mmol/L (98-107); CREATININE 0.5 mg/dL (0.6-1.3); GLUCOSE 99 mg/dL (74-106); MAGNESIUM 2.2 mg/dL (1.8-2.4); PHOSPHOROUS 5.2 mg/dL (2.5-4.9); UREA NITROGEN, BLOOD 12 mg/dL (7-18)
[2019-06-27 08:00] VITALS: BP 100/55
[2019-06-27] MEDS: levETIRAcetam 500 MG/5 ML LIQUID UDC GT SCH ×2 (08:14→20:25)
[2019-06-27] MEDS: LACOSAMIDE 100 MG/10 ML UDC GT SCH ×2 (08:15→20:25)
[2019-06-27] MEDS: AMLODIPINE 10 MG TABLET GT SCH (08:15)
[2019-06-27] MEDS: ACIDOPHILUS/BULGARICUS CHEW TAB GT SCH ×2 (08:15→20:25)
[2019-06-27] MEDS: METOPROLOL TARTRATE 50 MG TABLET GT SCH ×2 (08:15→20:27)
[2019-06-27] MEDS: NUTRISOURCE FIBER 4 GM PACKET GT SCH (08:16)
[2019-06-27] MEDS: HEPARIN SODIUM,PORCINE 5,000 UNITS/ML VIAL SQ SCH ×2 (08:17→20:26)
[2019-06-27] MEDS: COD LIVER OIL/ZINC OXIDE OINT 113 GM TUBE TP SCH ×2 (08:17→20:27)
[2019-06-27] MEDS: CLINDAMYCIN TP SCH (08:17)
[2019-06-27] MEDS: NYSTATIN CREAM 30 GM TUBE TP SCH ×2 (08:17→20:27)
[2019-06-27] MEDS: HYDROGEN PEROXIDE 3% 118 ML BOTTLE TOP SCH ×2 (09:00→21:55)
--- NOTE | 2019-06-27 12:30 | NUR ---
SEEN AND EXAMINED BY DR. FORREST. WITH NEW ORDER. NOTED AND CARRIED OUT.
[2019-06-27] MEDS: JEVITY 1.2 1000 ML LIQUID GT PRN (14:27)
[2019-06-27 20:00] VITALS: BP 168/94
[2019-06-27] MEDS: FERROUS SULFATE 330 MG/7.5 ML UDC- FOR SA ONLY GT SCH (20:25)
[2019-06-27] MEDS: RANITIDINE 300 MG GT SCH (20:27)
[2019-06-27] MEDS: ADAPALENE 0.3% TP SCH (20:27)
[2019-06-27] MEDS: MULTIVIT, IRON, MIN NO. 8, FA TABLET GT SCH (20:27)
[2019-06-27] MEDS: MELATONIN 5MG TABLET GT SCH (20:27)
[2019-06-27 22:38] VITALS: BP 106/76
[2019-06-28] MEDS: JEVITY 1.2 1000 ML LIQUID GT PRN (03:24)
[2019-06-28] MEDS: hydrALAZINE HCL 10 MG TABLET GT SCH ×3 (05:23→21:51)
[2019-06-28] MEDS: CALCIUM CARBONATE 500 MG TAB.CHEW GT SCH ×2 (05:24→17:25)
[2019-06-28 08:30] VITALS: BP 108/56
[2019-06-28] MEDS: LACOSAMIDE 100 MG/10 ML UDC GT SCH ×2 (08:30→20:41)
[2019-06-28] MEDS: levETIRAcetam 500 MG/5 ML LIQUID UDC GT SCH ×2 (08:30→20:41)
[2019-06-28] MEDS: ACIDOPHILUS/BULGARICUS CHEW TAB GT SCH ×2 (08:32→20:41)
[2019-06-28] MEDS: COD LIVER OIL/ZINC OXIDE OINT 113 GM TUBE TP SCH ×2 (08:37→20:42)
[2019-06-28] MEDS: NUTRISOURCE FIBER 4 GM PACKET GT SCH (08:37)
[2019-06-28] MEDS: NYSTATIN CREAM 30 GM TUBE TP SCH ×2 (08:37→20:42)
[2019-06-28] MEDS: CLINDAMYCIN TP SCH (08:38)
[2019-06-28] MEDS: HEPARIN SODIUM,PORCINE 5,000 UNITS/ML VIAL SQ SCH ×2 (08:41→20:42)
[2019-06-28] MEDS: METOPROLOL TARTRATE 50 MG TABLET GT SCH ×2 (08:46→20:42)
[2019-06-28] MEDS: AMLODIPINE 10 MG TABLET GT SCH (08:46)
[2019-06-28] MEDS: HYDROGEN PEROXIDE 3% 118 ML BOTTLE TOP SCH ×2 (09:01→21:00)
[2019-06-28 20:00] VITALS: BP 138/101
[2019-06-28] MEDS: FERROUS SULFATE 330 MG/7.5 ML UDC- FOR SA ONLY GT SCH (20:41)
[2019-06-28] MEDS: RANITIDINE 300 MG GT SCH (20:42)
[2019-06-28] MEDS: MELATONIN 5MG TABLET GT SCH (20:42)
[2019-06-28] MEDS: MULTIVIT, IRON, MIN NO. 8, FA TABLET GT SCH (20:42)
[2019-06-28] MEDS: ADAPALENE 0.3% TP SCH (20:42)
[2019-06-29] MEDS: CALCIUM CARBONATE 500 MG TAB.CHEW GT SCH ×2 (05:07→17:32)
[2019-06-29] MEDS: hydrALAZINE HCL 10 MG TABLET GT SCH ×3 (05:07→21:32)
[2019-06-29] MEDS: HYDROGEN PEROXIDE 3% 118 ML BOTTLE TOP SCH ×2 (08:33→21:26)
[2019-06-29] MEDS: LACOSAMIDE 100 MG/10 ML UDC GT SCH ×2 (08:49→20:31)
[2019-06-29] MEDS: levETIRAcetam 500 MG/5 ML LIQUID UDC GT SCH ×2 (08:49→20:31)
[2019-06-29] MEDS: ACIDOPHILUS/BULGARICUS CHEW TAB GT SCH ×2 (08:50→20:31)
[2019-06-29] MEDS: HEPARIN SODIUM,PORCINE 5,000 UNITS/ML VIAL SQ SCH ×2 (08:50→20:32)
[2019-06-29] MEDS: NUTRISOURCE FIBER 4 GM PACKET GT SCH (08:50)
[2019-06-29] MEDS: CLINDAMYCIN TP SCH (08:52)
[2019-06-29] MEDS: NYSTATIN CREAM 30 GM TUBE TP SCH ×2 (08:52→20:32)
[2019-06-29] MEDS: COD LIVER OIL/ZINC OXIDE OINT 113 GM TUBE TP SCH ×2 (08:52→20:32)
[2019-06-29] MEDS: METOPROLOL TARTRATE 50 MG TABLET GT SCH ×2 (08:54→20:31)
[2019-06-29] MEDS: AMLODIPINE 10 MG TABLET GT SCH (08:55)
[2019-06-29 11:41] VITALS: BP 108/64
[2019-06-29 20:20] VITALS: BP 154/98
[2019-06-29] MEDS: MULTIVIT, IRON, MIN NO. 8, FA TABLET GT SCH (20:31)
[2019-06-29] MEDS: RANITIDINE 300 MG GT SCH (20:31)
[2019-06-29] MEDS: MELATONIN 5MG TABLET GT SCH (20:31)
[2019-06-29] MEDS: FERROUS SULFATE 330 MG/7.5 ML UDC- FOR SA ONLY GT SCH (20:31)
[2019-06-29] MEDS: ADAPALENE 0.3% TP SCH (20:32)
[2019-06-30] MEDS: JEVITY 1.2 1000 ML LIQUID GT PRN (03:07)
[2019-06-30] MEDS: hydrALAZINE HCL 10 MG TABLET GT SCH ×3 (05:17→21:05)
[2019-06-30] MEDS: CALCIUM CARBONATE 500 MG TAB.CHEW GT SCH ×2 (05:18→18:05)
[2019-06-30 08:00] VITALS: BP 107/58
[2019-06-30] MEDS: HYDROGEN PEROXIDE 3% 118 ML BOTTLE TOP SCH ×2 (08:19→20:34)
[2019-06-30] MEDS: levETIRAcetam 500 MG/5 ML LIQUID UDC GT SCH ×2 (08:28→20:00)
[2019-06-30] MEDS: LACOSAMIDE 100 MG/10 ML UDC GT SCH ×2 (08:31→20:00)
[2019-06-30] MEDS: ACIDOPHILUS/BULGARICUS CHEW TAB GT SCH ×2 (08:31→21:03)
[2019-06-30] MEDS: METOPROLOL TARTRATE 50 MG TABLET GT SCH ×2 (08:32→21:00)
[2019-06-30] MEDS: AMLODIPINE 10 MG TABLET GT SCH (08:33)
[2019-06-30] MEDS: NUTRISOURCE FIBER 4 GM PACKET GT SCH (08:34)
[2019-06-30] MEDS: HEPARIN SODIUM,PORCINE 5,000 UNITS/ML VIAL SQ SCH ×2 (08:35→21:00)
[2019-06-30] MEDS: NYSTATIN CREAM 30 GM TUBE TP SCH ×2 (08:36→21:04)
[2019-06-30] MEDS: CLINDAMYCIN TP SCH (08:36)
[2019-06-30] MEDS: COD LIVER OIL/ZINC OXIDE OINT 113 GM TUBE TP SCH ×2 (08:36→21:04)
--- NOTE | 2019-06-30 14:36 | NUR ---
SAPNA received an email back from Prashanth Alvarenga at [facility] (Dept of Neurosurgery, [facility], email address [email or web address]), who was responding to the email that this SW had sent Dr. Lani Dawson on 06/17, asking about further instructions in preparation for patient's clinical trials that are scheduled for 07/27 and 08/03 (see SS note dated 06/17). In this email response, Prashanth Alvarenga provided the following information (copied from the email): 1) We use [facility]. I will be calling them next week to arrange the transport. 2) there are 2 safety concerns. 1) 24 hours prior to the appointment, patients must be monitored for increased secretions in the mouth, tracheostomy. And 2) patients must be not have food for 6 hours prior to the appointment. Small amount of water for medication is acceptable. 3) We will visit Sunday and Sunday prior to the first appointment, Sunday after the first appointment, Sunday before the 2nd appointment, Sunday after the 2nd appointment, 1 week after the 2nd appointment , 1 month after 2nd appt, 3 months after and 6 months after. Exact date/time will be set as we get closer to the f/u visits. Salt Cutter German Liu, patient's mother Abdoul, and Dr. Dawson were all cc-ed on this email chain. SAPNA responded "reply all" to this email chain, acknowledging receipt of all above information, informing Prashanth Alvarenga that all this information will be relayed to the charge nurses and patient's physicians in order for them to be aware of the preparations. In the same email, SAPNA also instructed Prashanth Alvarenga that during their visit to the patient here in subacute, they should check in with the charge nurse in order to notify the charge nurse that they will be visiting the patient. Also in the same email, SAPNA asked Prashanth Alvarenga to inform this SW of the pick-up time for the ambulance once he makes the necessary arrangements.
[2019-06-30] MEDS: FERROUS SULFATE 330 MG/7.5 ML UDC- FOR SA ONLY GT SCH (21:03)
[2019-06-30] MEDS: ADAPALENE 0.3% TP SCH (21:04)
[2019-06-30] MEDS: RANITIDINE 300 MG GT SCH (21:04)
[2019-06-30] MEDS: MULTIVIT, IRON, MIN NO. 8, FA TABLET GT SCH (21:04)
[2019-06-30] MEDS: MELATONIN 5MG TABLET GT SCH (21:04)
[2019-06-30 22:10] VITALS: BP 102/50
[2019-07-01] MEDS: hydrALAZINE HCL 10 MG TABLET GT SCH ×3 (06:00→22:00)
[2019-07-01] MEDS: CALCIUM CARBONATE 500 MG TAB.CHEW GT SCH ×2 (06:28→17:08)
[2019-07-01] MEDS: JEVITY 1.2 1000 ML LIQUID GT PRN ×2 (06:36→21:33)
[2019-07-01 08:00] VITALS: BP 123/62
[2019-07-01] MEDS: levETIRAcetam 500 MG/5 ML LIQUID UDC GT SCH ×2 (08:11→20:04)
[2019-07-01] MEDS: LACOSAMIDE 100 MG/10 ML UDC GT SCH ×2 (08:11→20:04)
[2019-07-01] MEDS: NUTRISOURCE FIBER 4 GM PACKET GT SCH (08:12)
[2019-07-01] MEDS: ACIDOPHILUS/BULGARICUS CHEW TAB GT SCH ×2 (08:12→20:04)
[2019-07-01] MEDS: AMLODIPINE 10 MG TABLET GT SCH (08:12)
[2019-07-01] MEDS: METOPROLOL TARTRATE 50 MG TABLET GT SCH ×2 (08:12→21:32)
[2019-07-01] MEDS: CLINDAMYCIN TP SCH (08:14)
[2019-07-01] MEDS: HEPARIN SODIUM,PORCINE 5,000 UNITS/ML VIAL SQ SCH ×2 (08:14→20:04)
[2019-07-01] MEDS: NYSTATIN CREAM 30 GM TUBE TP SCH ×2 (08:14→20:05)
[2019-07-01] MEDS: COD LIVER OIL/ZINC OXIDE OINT 113 GM TUBE TP SCH ×2 (08:14→20:05)
[2019-07-01] MEDS: HYDROGEN PEROXIDE 3% 118 ML BOTTLE TOP SCH ×2 (09:07→21:00)
[2019-07-01] MEDS: MULTIVIT, IRON, MIN NO. 8, FA TABLET GT SCH (20:04)
[2019-07-01] MEDS: FERROUS SULFATE 330 MG/7.5 ML UDC- FOR SA ONLY GT SCH (20:04)
[2019-07-01] MEDS: MELATONIN 5MG TABLET GT SCH (20:04)
[2019-07-01] MEDS: RANITIDINE 300 MG GT SCH (20:04)
[2019-07-01] MEDS: ADAPALENE 0.3% TP SCH (20:05)
[2019-07-01 20:35] VITALS: BP 123/79
[2019-07-02] MEDS: hydrALAZINE HCL 10 MG TABLET GT SCH ×4 (05:29→22:11)
[2019-07-02] MEDS: CALCIUM CARBONATE 500 MG TAB.CHEW GT SCH ×2 (05:30→17:18)
[2019-07-02 07:55] LABS: BASOPHILS # (AUTO) 0.1 K/uL (0.0-8.0); BASOPHILS % (AUTO) 0.5 % (0.0-2.0); EOSINOPHILS # (AUTO) 0.5 K/uL (0.0-0.7); HEMATOCRIT 39.2 % (31.2-41.9); HEMOGLOBIN 13.2 g/dL (10.9-14.3); LYMPHOCYTES # (AUTO) 2.6 K/uL (20.0-40.0); LYMPHOCYTES % (AUTO) 22.4 % (20.5-51.5); MEAN CORPUSCULAR HEMOGLOBIN 30.8 uug (24.7-32.8); MEAN CORPUSCULAR HGB CONC 34 g/dL (32.3-35.6); MEAN CORPUSCULAR VOLUME 91.5 fL (75.5-95.3); MONOCYTES # (AUTO) 0.8 K/uL (2.0-10.0); MONOCYTES % (AUTO) 6.7 % (0.0-11.0); NEUTROPHILS # (AUTO) 7.7 K/uL (1.8-8.9); NEUTROPHILS % (AUTO) 66.4 % (38.5-71.5); PLATELET COUNT (AUTO) 384 K/uL (179-408); RED BLOOD CELL COUNT(AUTO) 4.28 MIL/uL (3.63-4.92); WHITE BLOOD COUNT (AUTO) 11.6 K/uL (3.8-11.8)
[2019-07-02 08:00] VITALS: BP 105/59
[2019-07-02] MEDS: levETIRAcetam 500 MG/5 ML LIQUID UDC GT SCH ×2 (08:10→20:59)
[2019-07-02] MEDS: LACOSAMIDE 100 MG/10 ML UDC GT SCH ×2 (08:10→20:59)
[2019-07-02] MEDS: ACIDOPHILUS/BULGARICUS CHEW TAB GT SCH ×2 (08:10→20:59)
[2019-07-02] MEDS: HEPARIN SODIUM,PORCINE 5,000 UNITS/ML VIAL SQ SCH ×2 (08:11→22:00)
[2019-07-02] MEDS: CLINDAMYCIN TP SCH (08:11)
[2019-07-02] MEDS: NUTRISOURCE FIBER 4 GM PACKET GT SCH (08:11)
[2019-07-02] MEDS: COD LIVER OIL/ZINC OXIDE OINT 113 GM TUBE TP SCH ×2 (08:11→21:00)
[2019-07-02] MEDS: AMLODIPINE 10 MG TABLET GT SCH (08:11)
[2019-07-02] MEDS: METOPROLOL TARTRATE 50 MG TABLET GT SCH ×2 (08:11→20:59)
[2019-07-02] MEDS: NYSTATIN CREAM 30 GM TUBE TP SCH ×2 (08:11→21:00)
[2019-07-02 08:19] LABS: CARBON DIOXIDE 28 mmol/L (21-32); CREATININE 0.4 mg/dL (0.6-1.3); GLUCOSE 124 mg/dL (74-106); UREA NITROGEN, BLOOD 13 mg/dL (7-18)
[2019-07-02 09:02] LABS: CHLORIDE 101 mmol/L (98-107); POTASSIUM 4.4 mmol/L (3.5-5.1)
--- NOTE | 2019-07-02 09:14 | NUR ---
SAPNA met with Dr. Pollock this morning, and informed him of the email response this SAPNA had received from [facility] regarding preparations for patient's clinical trials on July 27 and August 03. SAPNA informed Dr. Pollock of the following that was listed in the email instructions: 2) there are 2 safety concerns. 1) 24 hours prior to the appointment, patients must be monitored for increased secretions in the mouth, tracheostomy. And 2) patients must be not have food for 6 hours prior to the appointment. Small amount of water for medication is acceptable. Dr. Pollock expressed understanding and agreement.
[2019-07-02] MEDS: HYDROGEN PEROXIDE 3% 118 ML BOTTLE TOP SCH ×2 (09:49→21:53)
--- NOTE | 2019-07-02 17:30 | NUR ---
Spoke to Abdoul perla's mom regarding the waiting list for a private room ,offered room 422 private room available at this time ,she wants her daughter to stay in the same room 425A at this time.
[2019-07-02 20:40] VITALS: BP 138/76
[2019-07-02] MEDS: MELATONIN 5MG TABLET GT SCH (20:59)
[2019-07-02] MEDS: MULTIVIT, IRON, MIN NO. 8, FA TABLET GT SCH (20:59)
[2019-07-02] MEDS: RANITIDINE 300 MG GT SCH (20:59)
[2019-07-02] MEDS: FERROUS SULFATE 330 MG/7.5 ML UDC- FOR SA ONLY GT SCH (20:59)
[2019-07-02] MEDS: ADAPALENE 0.3% TP SCH (21:00)
[2019-07-03] MEDS: CALCIUM CARBONATE 500 MG TAB.CHEW GT SCH ×2 (05:25→06:00)
[2019-07-03] MEDS: hydrALAZINE HCL 10 MG TABLET GT SCH ×3 (05:25→22:00)
[2019-07-03 08:00] VITALS: BP 109/61
[2019-07-03] MEDS: METOPROLOL TARTRATE 50 MG TABLET GT SCH ×2 (08:11→20:37)
[2019-07-03] MEDS: levETIRAcetam 500 MG/5 ML LIQUID UDC GT SCH ×2 (08:11→20:36)
[2019-07-03] MEDS: LACOSAMIDE 100 MG/10 ML UDC GT SCH ×2 (08:11→20:36)
[2019-07-03] MEDS: ACIDOPHILUS/BULGARICUS CHEW TAB GT SCH ×2 (08:11→20:36)
[2019-07-03] MEDS: NUTRISOURCE FIBER 4 GM PACKET GT SCH (08:12)
[2019-07-03] MEDS: AMLODIPINE 10 MG TABLET GT SCH (08:12)
[2019-07-03] MEDS: COD LIVER OIL/ZINC OXIDE OINT 113 GM TUBE TP SCH ×2 (08:12→20:37)
[2019-07-03] MEDS: HEPARIN SODIUM,PORCINE 5,000 UNITS/ML VIAL SQ SCH ×2 (08:12→21:00)
[2019-07-03] MEDS: NYSTATIN CREAM 30 GM TUBE TP SCH ×2 (08:13→20:37)
[2019-07-03] MEDS: CLINDAMYCIN TP SCH (08:16)
[2019-07-03] MEDS: HYDROGEN PEROXIDE 3% 118 ML BOTTLE TOP SCH ×2 (09:56→21:07)
[2019-07-03] MEDS: JEVITY 1.2 1000 ML LIQUID GT PRN (10:49)
[2019-07-03 20:21] VITALS: BP 109/61
[2019-07-03] MEDS: FERROUS SULFATE 330 MG/7.5 ML UDC- FOR SA ONLY GT SCH (20:36)
[2019-07-03] MEDS: MELATONIN 5MG TABLET GT SCH (20:37)
[2019-07-03] MEDS: ADAPALENE 0.3% TP SCH (20:37)
[2019-07-03] MEDS: RANITIDINE 300 MG GT SCH (20:37)
[2019-07-03] MEDS: MULTIVIT, IRON, MIN NO. 8, FA TABLET GT SCH (20:37)
[2019-07-03 22:11] VITALS: BP 105/69
[2019-07-04] MEDS: hydrALAZINE HCL 10 MG TABLET GT SCH ×3 (06:00→22:00)
[2019-07-04 06:21] VITALS: BP 100/64
[2019-07-04] MEDS: CALCIUM CARBONATE 500 MG TAB.CHEW GT SCH ×2 (06:29→17:23)
[2019-07-04] MEDS: JEVITY 1.2 1000 ML LIQUID GT PRN (06:31)
[2019-07-04 08:00] VITALS: BP 111/72
[2019-07-04] MEDS: levETIRAcetam 500 MG/5 ML LIQUID UDC GT SCH ×2 (08:05→20:17)
[2019-07-04] MEDS: NUTRISOURCE FIBER 4 GM PACKET GT SCH (08:06)
[2019-07-04] MEDS: LACOSAMIDE 100 MG/10 ML UDC GT SCH ×2 (08:06→20:17)
[2019-07-04] MEDS: AMLODIPINE 10 MG TABLET GT SCH (08:06)
[2019-07-04] MEDS: METOPROLOL TARTRATE 50 MG TABLET GT SCH ×2 (08:06→20:17)
[2019-07-04] MEDS: ACIDOPHILUS/BULGARICUS CHEW TAB GT SCH ×2 (08:06→20:17)
[2019-07-04] MEDS: HEPARIN SODIUM,PORCINE 5,000 UNITS/ML VIAL SQ SCH ×2 (08:06→20:18)
[2019-07-04] MEDS: COD LIVER OIL/ZINC OXIDE OINT 113 GM TUBE TP SCH ×2 (08:07→20:18)
[2019-07-04] MEDS: CLINDAMYCIN TP SCH (08:07)
[2019-07-04] MEDS: NYSTATIN CREAM 30 GM TUBE TP SCH ×2 (08:07→20:18)
[2019-07-04] MEDS: HYDROGEN PEROXIDE 3% 118 ML BOTTLE TOP SCH ×2 (08:11→21:00)
[2019-07-04] MEDS: MELATONIN 5MG TABLET GT SCH (20:17)
[2019-07-04] MEDS: FERROUS SULFATE 330 MG/7.5 ML UDC- FOR SA ONLY GT SCH (20:17)
[2019-07-04] MEDS: MULTIVIT, IRON, MIN NO. 8, FA TABLET GT SCH (20:17)
[2019-07-04] MEDS: RANITIDINE 300 MG GT SCH (20:17)
[2019-07-04] MEDS: ADAPALENE 0.3% TP SCH (20:18)
[2019-07-04 22:10] VITALS: BP 123/82
[2019-07-05] MEDS: hydrALAZINE HCL 10 MG TABLET GT SCH ×3 (05:09→21:59)
[2019-07-05] MEDS: CALCIUM CARBONATE 500 MG TAB.CHEW GT SCH ×2 (05:10→17:40)
[2019-07-05] MEDS: JEVITY 1.2 1000 ML LIQUID GT PRN ×2 (05:11→14:07)
[2019-07-05] MEDS: HYDROGEN PEROXIDE 3% 118 ML BOTTLE TOP SCH ×2 (07:25→21:20)
[2019-07-05] MEDS: LACOSAMIDE 100 MG/10 ML UDC GT SCH ×2 (08:00→20:24)
[2019-07-05] MEDS: levETIRAcetam 500 MG/5 ML LIQUID UDC GT SCH ×2 (08:00→20:24)
[2019-07-05 08:09] VITALS: BP 104/59
[2019-07-05] MEDS: HEPARIN SODIUM,PORCINE 5,000 UNITS/ML VIAL SQ SCH ×2 (09:00→21:06)
[2019-07-05] MEDS: ACIDOPHILUS/BULGARICUS CHEW TAB GT SCH ×2 (09:04→20:24)
[2019-07-05] MEDS: COD LIVER OIL/ZINC OXIDE OINT 113 GM TUBE TP SCH ×2 (09:07→20:24)
[2019-07-05] MEDS: NUTRISOURCE FIBER 4 GM PACKET GT SCH (09:07)
[2019-07-05] MEDS: NYSTATIN CREAM 30 GM TUBE TP SCH ×2 (09:08→20:24)
[2019-07-05] MEDS: METOPROLOL TARTRATE 50 MG TABLET GT SCH ×2 (09:08→21:00)
[2019-07-05] MEDS: CLINDAMYCIN TP SCH (09:08)
[2019-07-05] MEDS: AMLODIPINE 10 MG TABLET GT SCH (09:09)
--- NOTE | 2019-07-05 14:30 | NUR ---
patient's mother was advice to used call light when she needs help.
[2019-07-05] MEDS: RANITIDINE 300 MG GT SCH (20:24)
[2019-07-05] MEDS: FERROUS SULFATE 330 MG/7.5 ML UDC- FOR SA ONLY GT SCH (20:24)
[2019-07-05] MEDS: ADAPALENE 0.3% TP SCH (20:24)
[2019-07-05] MEDS: MULTIVIT, IRON, MIN NO. 8, FA TABLET GT SCH (20:24)
[2019-07-05] MEDS: MELATONIN 5MG TABLET GT SCH (20:24)
[2019-07-05 22:15] VITALS: BP 108/58
[2019-07-06] MEDS: hydrALAZINE HCL 10 MG TABLET GT SCH ×3 (05:13→22:00)
[2019-07-06] MEDS: JEVITY 1.2 1000 ML LIQUID GT PRN ×2 (05:14→20:19)
[2019-07-06] MEDS: CALCIUM CARBONATE 500 MG TAB.CHEW GT SCH ×2 (05:14→17:52)
[2019-07-06] MEDS: HYDROGEN PEROXIDE 3% 118 ML BOTTLE TOP SCH ×2 (08:05→21:44)
[2019-07-06 08:30] VITALS: BP 91/64
[2019-07-06] MEDS: LACOSAMIDE 100 MG/10 ML UDC GT SCH ×2 (08:34→20:02)
[2019-07-06] MEDS: ACIDOPHILUS/BULGARICUS CHEW TAB GT SCH ×2 (08:34→20:02)
[2019-07-06] MEDS: levETIRAcetam 500 MG/5 ML LIQUID UDC GT SCH ×2 (08:34→20:01)
[2019-07-06] MEDS: NUTRISOURCE FIBER 4 GM PACKET GT SCH (08:37)
[2019-07-06] MEDS: HEPARIN SODIUM,PORCINE 5,000 UNITS/ML VIAL SQ SCH ×2 (08:39→20:26)
[2019-07-06] MEDS: METOPROLOL TARTRATE 50 MG TABLET GT SCH ×2 (08:40→20:02)
[2019-07-06] MEDS: NYSTATIN CREAM 30 GM TUBE TP SCH ×2 (08:41→20:03)
[2019-07-06] MEDS: CLINDAMYCIN TP SCH (08:41)
[2019-07-06] MEDS: AMLODIPINE 10 MG TABLET GT SCH (08:41)
[2019-07-06] MEDS: COD LIVER OIL/ZINC OXIDE OINT 113 GM TUBE TP SCH ×2 (08:41→20:02)
[2019-07-06] MEDS: RANITIDINE 300 MG GT SCH (20:02)
[2019-07-06] MEDS: FERROUS SULFATE 330 MG/7.5 ML UDC- FOR SA ONLY GT SCH (20:02)
[2019-07-06] MEDS: MULTIVIT, IRON, MIN NO. 8, FA TABLET GT SCH (20:02)
[2019-07-06] MEDS: MELATONIN 5MG TABLET GT SCH (20:02)
[2019-07-06] MEDS: ADAPALENE 0.3% TP SCH (20:03)
[2019-07-06 22:23] VITALS: BP 122/74
[2019-07-07] MEDS: hydrALAZINE HCL 10 MG TABLET GT SCH ×3 (05:28→22:00)
[2019-07-07] MEDS: CALCIUM CARBONATE 500 MG TAB.CHEW GT SCH ×2 (05:29→17:47)
[2019-07-07 08:00] VITALS: BP 112/61
[2019-07-07] MEDS: ACIDOPHILUS/BULGARICUS CHEW TAB GT SCH ×2 (08:13→20:02)
[2019-07-07] MEDS: levETIRAcetam 500 MG/5 ML LIQUID UDC GT SCH ×2 (08:13→20:02)
[2019-07-07] MEDS: LACOSAMIDE 100 MG/10 ML UDC GT SCH ×2 (08:13→20:02)
[2019-07-07] MEDS: AMLODIPINE 10 MG TABLET GT SCH (08:14)
[2019-07-07] MEDS: METOPROLOL TARTRATE 50 MG TABLET GT SCH ×2 (08:14→20:03)
[2019-07-07] MEDS: NUTRISOURCE FIBER 4 GM PACKET GT SCH (08:14)
[2019-07-07] MEDS: HEPARIN SODIUM,PORCINE 5,000 UNITS/ML VIAL SQ SCH ×2 (08:15→20:02)
[2019-07-07] MEDS: COD LIVER OIL/ZINC OXIDE OINT 113 GM TUBE TP SCH ×2 (08:15→20:03)
[2019-07-07] MEDS: NYSTATIN CREAM 30 GM TUBE TP SCH ×2 (08:16→20:06)
[2019-07-07] MEDS: CLINDAMYCIN TP SCH (08:17)
[2019-07-07] MEDS: HYDROGEN PEROXIDE 3% 118 ML BOTTLE TOP SCH ×2 (09:52→21:20)
[2019-07-07] MEDS: JEVITY 1.2 1000 ML LIQUID GT PRN (15:30)
[2019-07-07] MEDS: FERROUS SULFATE 330 MG/7.5 ML UDC- FOR SA ONLY GT SCH (20:02)
[2019-07-07] MEDS: MELATONIN 5MG TABLET GT SCH (20:03)
[2019-07-07] MEDS: MULTIVIT, IRON, MIN NO. 8, FA TABLET GT SCH (20:03)
[2019-07-07] MEDS: RANITIDINE 300 MG GT SCH (20:03)
[2019-07-07] MEDS: ADAPALENE 0.3% TP SCH (20:05)
[2019-07-07 20:59] VITALS: BP 121/69
[2019-07-08] MEDS: hydrALAZINE HCL 10 MG TABLET GT SCH ×3 (06:00→22:00)
[2019-07-08] MEDS: CALCIUM CARBONATE 500 MG TAB.CHEW GT SCH ×2 (06:01→17:19)
[2019-07-08] MEDS: LACOSAMIDE 100 MG/10 ML UDC GT SCH ×2 (07:52→20:01)
[2019-07-08] MEDS: ACIDOPHILUS/BULGARICUS CHEW TAB GT SCH ×2 (07:52→20:01)
[2019-07-08] MEDS: levETIRAcetam 500 MG/5 ML LIQUID UDC GT SCH ×2 (07:52→20:01)
[2019-07-08 07:54] VITALS: BP 106/56
[2019-07-08] MEDS: METOPROLOL TARTRATE 50 MG TABLET GT SCH ×2 (08:02→20:01)
[2019-07-08] MEDS: AMLODIPINE 10 MG TABLET GT SCH (08:13)
[2019-07-08] MEDS: NUTRISOURCE FIBER 4 GM PACKET GT SCH (08:16)
[2019-07-08] MEDS: CLINDAMYCIN TP SCH (08:17)
[2019-07-08] MEDS: COD LIVER OIL/ZINC OXIDE OINT 113 GM TUBE TP SCH ×2 (08:17→20:03)
[2019-07-08] MEDS: HEPARIN SODIUM,PORCINE 5,000 UNITS/ML VIAL SQ SCH ×2 (08:17→20:39)
[2019-07-08] MEDS: HYDROGEN PEROXIDE 3% 118 ML BOTTLE TOP SCH ×2 (09:00→21:10)
[2019-07-08] MEDS: ACETAMINOPHEN 650 MG/20 ML UDC- SA PATIENTS-PAIN ONLY GT PRN (13:12)
--- NOTE | 2019-07-08 16:13 | NUR ---
SAPNA met with Dr. Ramos today, and informed him of the email response this SAPNA had received from [facility] regarding preparations for patient's clinical trials on July 27 and August 03. SAPNA showed Dr. Ramos the following information from the email: 2) there are 2 safety concerns. 1) 24 hours prior to the appointment, patients must be monitored for increased secretions in the mouth, tracheostomy. And 2) patients must be not have food for 6 hours prior to the appointment. Small amount of water for medication is acceptable. 3) We will visit Sunday and Sunday prior to the first appointment, Sunday after the first appointment, Sunday before the 2nd appointment, Sunday after the 2nd appointment, 1 week after the 2nd appointment , 1 month after 2nd appt, 3 months after and 6 months after. Exact date/time will be set as we get closer to the f/u visits. Dr. Ramos expressed understanding and agreement.
[2019-07-08 20:00] VITALS: BP 121/82
[2019-07-08] MEDS: MELATONIN 5MG TABLET GT SCH (20:01)
[2019-07-08] MEDS: FERROUS SULFATE 330 MG/7.5 ML UDC- FOR SA ONLY GT SCH (20:01)
[2019-07-08] MEDS: RANITIDINE 300 MG GT SCH (20:02)
[2019-07-08] MEDS: MULTIVIT, IRON, MIN NO. 8, FA TABLET GT SCH (20:02)
[2019-07-08] MEDS: ADAPALENE 0.3% TP SCH (20:03)
[2019-07-09] MEDS: hydrALAZINE HCL 10 MG TABLET GT SCH ×3 (06:03→22:00)
[2019-07-09] MEDS: CALCIUM CARBONATE 500 MG TAB.CHEW GT SCH ×2 (06:03→17:33)
[2019-07-09 08:00] VITALS: BP 110/69
[2019-07-09] MEDS: LACOSAMIDE 100 MG/10 ML UDC GT SCH ×2 (08:00→20:00)
[2019-07-09] MEDS: levETIRAcetam 500 MG/5 ML LIQUID UDC GT SCH ×2 (08:00→20:00)
[2019-07-09] MEDS: HYDROGEN PEROXIDE 3% 118 ML BOTTLE TOP SCH ×2 (09:00→21:29)
[2019-07-09] MEDS: HEPARIN SODIUM,PORCINE 5,000 UNITS/ML VIAL SQ SCH ×2 (09:08→21:30)
[2019-07-09] MEDS: AMLODIPINE 10 MG TABLET GT SCH (09:10)
[2019-07-09] MEDS: NUTRISOURCE FIBER 4 GM PACKET GT SCH (09:10)
[2019-07-09] MEDS: ACIDOPHILUS/BULGARICUS CHEW TAB GT SCH ×2 (09:11→21:28)
[2019-07-09] MEDS: COD LIVER OIL/ZINC OXIDE OINT 113 GM TUBE TP SCH ×2 (09:11→21:30)
[2019-07-09] MEDS: METOPROLOL TARTRATE 50 MG TABLET GT SCH ×2 (09:11→21:00)
[2019-07-09] MEDS: CLINDAMYCIN TP SCH (09:11)
--- NOTE | 2019-07-09 13:03 | NUR ---
PATIENT MOTHER WAS GETTING READY TO TAKE PATIENT OUT ON PASS. MOTHER NOTIFIED OF THE DELIVERY OF PORTABLE SUCTION MACHINE BAG BY [employer] WITHIN 10 MINUTES BEFORE SHE CAN LEAVE. SHE STATE, "I CAN'T WAIT", MOTHER NOTIFIED OF THE IMPORTANT OF HAVING SUCTION MACHINE BAG WITH THE PATIENT AT ALL TIMES. UPON THE DELIVERY OF THE SUCTION MACHINE BAG TO THE ROOM, I NOTICED THE ROOM WAS EMPTY, MOTHER HAD TAKEN PATIENT OUT OF THE FACILITY WITHOUT THE SUCTION MACHINE BAG.
[2019-07-09 15:15] VITALS: BP 106/66
--- NOTE | 2019-07-09 15:35 | NUR ---
PT BACK FROM THE PATIO,MOTHER IS CRYING VERY CONCERN HER DAUGHTER HAS BEEN SLEEPING ,SINCE 1100 AM ,SHE TRIED TO TALK TO HER DAUGHTER ,AND MOVE HER EXTREMITIES BUT STILL LETHARGIC,V/S TEMP 100,P 82 ,B/P 106/66 O2 SAT 98%,PT TRANSFER TO BED ,MADE COMFORTABLE IN BED ,TEMP RECHECK 99.6,CALL DR SPENCER AND LEFT MESSAGE.
[2019-07-09 17:46] VITALS: BP 110/63
--- NOTE | 2019-07-09 18:20 | NUR ---
MOTHER VERY CONCERN ABOUT HER DAUGHTER ,AND SHE IS REQUESTING A DRUG TEST,AWARE THE DOCTOR DIDN'T CALL BACK ,MOTHER VERY UPSET SAYS WE NEED TO DO SOMETHING,AND ORDER LABS,I TOLD HER I NEED THE DOCTOR ORDERS,I CAN ORDER ANYTHING WITHOUT HIS ORDERS,OFFERED TO CALL [employer] RESPONSE O THE EMPLOYEE ADVISER TO CHECK ON THE PATIENT,SHE STATED ,"I DON'T WANT RAPID RESPONSE AND I DON'T WANT MY DAUGHTER TO BE TRANSFER TO ER,"LEFT MESSAGE TO DR SPENCER AGAIN.
--- NOTE | 2019-07-09 18:50 | NUR ---
Dr Sosa called back aware of patient condition,and mother concerns ,with new orders noted and carried out,
[2019-07-09 19:07] LABS: BASOPHILS # (AUTO) 0.1 K/uL (0.0-8.0); BASOPHILS % (AUTO) 0.8 % (0.0-2.0); EOSINOPHILS # (AUTO) 0.6 K/uL (0.0-0.7); EOSINOPHILS % (AUTO) 5.4 % (0.0-7.0); HEMATOCRIT 38.8 % (31.2-41.9); HEMOGLOBIN 13.2 g/dL (10.9-14.3); LYMPHOCYTES # (AUTO) 2.5 K/uL (20.0-40.0); LYMPHOCYTES % (AUTO) 23.2 % (20.5-51.5); MEAN CORPUSCULAR HEMOGLOBIN 31.2 uug (24.7-32.8); MEAN CORPUSCULAR HGB CONC 34 g/dL (32.3-35.6); MEAN CORPUSCULAR VOLUME 91.8 fL (75.5-95.3); NEUTROPHILS # (AUTO) 6.5 K/uL (1.8-8.9); NEUTROPHILS % (AUTO) 61.6 % (38.5-71.5); PLATELET COUNT (AUTO) 332 K/uL (179-408); RED BLOOD CELL COUNT(AUTO) 4.22 MIL/uL (3.63-4.92); WHITE BLOOD COUNT (AUTO) 10.6 K/uL (3.8-11.8)
[2019-07-09 19:11] LABS: CARBON DIOXIDE 29 mmol/L (21-32); CHLORIDE 102 mmol/L (98-107); CREATININE 0.5 mg/dL (0.6-1.3); GLUCOSE 119 mg/dL (74-106); UREA NITROGEN, BLOOD 15 mg/dL (7-18)
[2019-07-09 20:00] VITALS: BP 98/54
[2019-07-09] MEDS: MELATONIN 5MG TABLET GT SCH (21:00)
[2019-07-09 21:05] LABS: MAGNESIUM 2.2 mg/dL (1.8-2.4)
[2019-07-09] MEDS: FERROUS SULFATE 330 MG/7.5 ML UDC- FOR SA ONLY GT SCH (21:28)
[2019-07-09] MEDS: MULTIVIT, IRON, MIN NO. 8, FA TABLET GT SCH (21:29)
[2019-07-09] MEDS: RANITIDINE 300 MG GT SCH (21:29)
[2019-07-09] MEDS: ADAPALENE 0.3% TP SCH (21:30)
[2019-07-09] MEDS: JEVITY 1.2 1000 ML LIQUID GT PRN (21:30)
[2019-07-09 22:30] LABS: *BILIRUBIN,URIN NEGATIVE (NEGATIVE); *BLOOD, URINE NEGATIVE (NEGATIVE); *CLARITY,URINE CLEAR (CLEAR); *COLOR,URINE YELLOW (YELLOW); *KETONES,URINE NEGATIVE (NEGATIVE); *UROBILINOGEN,URINE 0.2 E.U./dl (NORMAL); LEUKOCYTE ESTERASE ,URINE NEGATIVE (NEGATIVE); NITRITE, URINE NEGATIVE (NEGATIVE); UGLUCOSE NEGATIVE (NEGATIVE)
[2019-07-09 22:51] LABS: *AMPHETAMINE, URINE NEGATIVE (NEGATIVE); *CANNABINOID, URINE NEGATIVE (NEGATIVE); *COCCAINE, URINE NEGATIVE (NEGATIVE); *OPIATE, URINE NEGATIVE (NEGATIVE); *PHENCYCLIDINE SCREEN,URINE NEGATIVE (NEGATIVE)
[2019-07-10] MEDS: hydrALAZINE HCL 10 MG TABLET GT SCH ×3 (05:30→21:51)
[2019-07-10] MEDS: CALCIUM CARBONATE 500 MG TAB.CHEW GT SCH ×2 (05:31→18:01)
[2019-07-10 08:00] VITALS: BP 114/60
[2019-07-10] MEDS: ACIDOPHILUS/BULGARICUS CHEW TAB GT SCH ×2 (08:40→20:10)
[2019-07-10] MEDS: levETIRAcetam 500 MG/5 ML LIQUID UDC GT SCH ×2 (08:40→19:53)
[2019-07-10] MEDS: LACOSAMIDE 100 MG/10 ML UDC GT SCH ×2 (08:40→19:57)
[2019-07-10] MEDS: COD LIVER OIL/ZINC OXIDE OINT 113 GM TUBE TP SCH ×2 (08:43→20:11)
[2019-07-10] MEDS: CLINDAMYCIN TP SCH (08:44)
[2019-07-10] MEDS: METOPROLOL TARTRATE 50 MG TABLET GT SCH ×2 (08:45→20:10)
[2019-07-10] MEDS: AMLODIPINE 10 MG TABLET GT SCH (08:46)
[2019-07-10] MEDS: NUTRISOURCE FIBER 4 GM PACKET GT SCH (08:48)
[2019-07-10] MEDS: HEPARIN SODIUM,PORCINE 5,000 UNITS/ML VIAL SQ SCH ×2 (08:48→20:11)
[2019-07-10] MEDS: HYDROGEN PEROXIDE 3% 118 ML BOTTLE TOP SCH ×2 (09:00→21:00)
[2019-07-10 11:35] VITALS: BP 135/83
--- NOTE | 2019-07-10 18:00 | NUR ---
DR. FORREST AWARE OF LAB RESULTS FROM YESTERDAY O.
[2019-07-10 20:00] VITALS: BP 125/76
[2019-07-10] MEDS: FERROUS SULFATE 330 MG/7.5 ML UDC- FOR SA ONLY GT SCH (20:09)
[2019-07-10] MEDS: RANITIDINE 300 MG GT SCH (20:10)
[2019-07-10] MEDS: MULTIVIT, IRON, MIN NO. 8, FA TABLET GT SCH (20:10)
[2019-07-10] MEDS: MELATONIN 5MG TABLET GT SCH (20:10)
[2019-07-10] MEDS: ADAPALENE 0.3% TP SCH (20:11)
[2019-07-11] MEDS: JEVITY 1.2 1000 ML LIQUID GT PRN ×2 (04:21→19:47)
[2019-07-11] MEDS: hydrALAZINE HCL 10 MG TABLET GT SCH ×3 (05:31→22:00)
[2019-07-11] MEDS: CALCIUM CARBONATE 500 MG TAB.CHEW GT SCH ×2 (05:31→17:15)
[2019-07-11 08:00] VITALS: BP 104/51
[2019-07-11] MEDS: ACIDOPHILUS/BULGARICUS CHEW TAB GT SCH ×2 (08:12→20:01)
[2019-07-11] MEDS: levETIRAcetam 500 MG/5 ML LIQUID UDC GT SCH ×2 (08:12→19:59)
[2019-07-11] MEDS: LACOSAMIDE 100 MG/10 ML UDC GT SCH ×2 (08:12→19:59)
[2019-07-11] MEDS: METOPROLOL TARTRATE 50 MG TABLET GT SCH ×2 (08:13→20:02)
[2019-07-11] MEDS: AMLODIPINE 10 MG TABLET GT SCH (08:14)
[2019-07-11] MEDS: NUTRISOURCE FIBER 4 GM PACKET GT SCH (08:15)
[2019-07-11] MEDS: HEPARIN SODIUM,PORCINE 5,000 UNITS/ML VIAL SQ SCH ×2 (08:15→20:00)
[2019-07-11] MEDS: CLINDAMYCIN TP SCH (08:15)
[2019-07-11] MEDS: COD LIVER OIL/ZINC OXIDE OINT 113 GM TUBE TP SCH ×2 (08:15→20:02)
[2019-07-11] MEDS: HYDROGEN PEROXIDE 3% 118 ML BOTTLE TOP SCH ×2 (09:59→21:00)
--- NOTE | 2019-07-11 12:30 | NUR ---
PT'S MOTHER CALLED AND REQUESTED CH. NURSE TO CALL DR. GERARDO ALFARO AND TO PLS CALL HER RIGHT NOW TO HER CELL PHONE BECAUSE SHE IS AT THE SOCIAL SECURITY OFFICE .( PER MAYKEL MATSON WHOM PICKED UP PHONE AT THIS TIME)DR. CARRILLO WAS CALLED AND MESSAGE LEFT.
--- NOTE | 2019-07-11 13:30 | NUR ---
PT'S MOTHER CALLED TO STATION SEVERAL TIMES REQUESTING TO TALK TO CH. NURSE AND DEMANDING CH. NURSE TO SPEAK TO A SOCIAL SECURITY "OFFICER "AND DEMANDING HER TO GIVE HIM MEDICAL INFORMATION ABOUT PT'S CONDITION(BUT NOT EXPLAINING WHAT PROCESS SHE WAS DOING OR WHY) .CH. NURSE TRANSFER THE CALL TO CIVIL SERVICE WORKER SO THE"OFICER" CAN PROPERLY ADDRESS THE REQUEST DUE TO PER PRIVACY MEDICAL INFORMATION CAN NOT BE GIVEN OVER THE PHONE SPECIALLY IF NO DISCLOSING WHY THIS IS NEEDED AND WHOM IS GONNA USE THIS.
--- NOTE | 2019-07-11 14:30 | NUR ---
PT'S MOTHER CALLED CH. NURSE AND WITH ENRAGED VOICE COMPLAINED WHY THE DID NOT CALL HER AND WHY SHE DID NOT GIVE THE MEDICAL INFORMATION TO THE "OFFICER" AND SHE EXPLAINED THAT SHE NEVER DONE THIS BY PHONE BEFORE AND BECAUSE OF PRIVACY AND THAT THE WAY IS PROPERLY DONE IS PRINTED AND SIGNED BY MD AND SHE NEEDS TO GET ASSISTANCE FROM GENERATION MECHANIC HELPER.PT'S MOTHER THREATENED CH. NURSE TO REPORT HER TO THE "OFFICER" AND HANGED UP THE PHONE.
--- NOTE | 2019-07-11 15:54 | NUR ---
2:55pm: SAPNA received a voicemail message left at 1:26pm by Social optics technical officer at the [facility], Mike Garcia [phone]. In the voicemail message, Mike stated that patient's mother Abdoul was at the Social Security office trying to complete patient's application for social security benefits, and that he needed additional medical information from this criminal justice social worker because the charge nurse who he spoke to earlier did not provide him with the necessary medical information. Mike also stated in the voicemail message that the reason for this was becuase the application that Abdoul brought to the social security office was not completed thoroughly by the hospital and that he needed additional medical information about the patient via telephone. At 2:57pm, this SW called Mike Garcia back, but he was not available. SAPNA left Mike Garcia a voicemail message explaining to him that the hospital had not completed the application form that Abdoul had turned in to him, and that Abdoul had coordinated the completion of this form with patient's doctor, on her own. SAPNA also explained in the voicemail message that patient's medical information could not be provided via telephone, and that instead a patient's condition letter signed by the patient's doctor can be provided to Abdoul. SAPNA left her phone number for Mike to call this SW back, if he had any additional questions. SAPNA will work with nursing to provide Abdoul with a condition letter, if Abdoul asks for a condition letter.
[2019-07-11 20:00] VITALS: BP 136/103
[2019-07-11] MEDS: FERROUS SULFATE 330 MG/7.5 ML UDC- FOR SA ONLY GT SCH (20:01)
[2019-07-11] MEDS: MELATONIN 5MG TABLET GT SCH (20:02)
[2019-07-11] MEDS: ADAPALENE 0.3% TP SCH (20:02)
[2019-07-11] MEDS: MULTIVIT, IRON, MIN NO. 8, FA TABLET GT SCH (20:02)
[2019-07-11] MEDS: RANITIDINE 300 MG GT SCH (20:02)
--- NOTE | 2019-07-11 21:30 | NUR ---
I entered the room and noted mother deep suctioning patient's trach, patient was shaking arms and legs heart rate 139 at that time. I asked her. Are you allowed to do that? She said. " Yes I am, because I'm getting her out on the wheel chair and I am using the portable suctioning machine. I asked the RT to show the mother the proper way to suction the patient.
[2019-07-12 01:35] VITALS: BP 101/58
[2019-07-12] MEDS: hydrALAZINE HCL 10 MG TABLET GT SCH ×3 (05:35→22:00)
[2019-07-12] MEDS: CALCIUM CARBONATE 500 MG TAB.CHEW GT SCH ×2 (05:36→17:39)
[2019-07-12 08:07] VITALS: BP 113/61
[2019-07-12] MEDS: ACIDOPHILUS/BULGARICUS CHEW TAB GT SCH ×2 (08:22→20:10)
[2019-07-12] MEDS: levETIRAcetam 500 MG/5 ML LIQUID UDC GT SCH ×2 (08:22→20:10)
[2019-07-12] MEDS: LACOSAMIDE 100 MG/10 ML UDC GT SCH ×2 (08:22→20:10)
[2019-07-12] MEDS: METOPROLOL TARTRATE 50 MG TABLET GT SCH ×2 (08:22→20:10)
[2019-07-12] MEDS: AMLODIPINE 10 MG TABLET GT SCH (08:23)
[2019-07-12] MEDS: NUTRISOURCE FIBER 4 GM PACKET GT SCH (08:23)
[2019-07-12] MEDS: HEPARIN SODIUM,PORCINE 5,000 UNITS/ML VIAL SQ SCH ×2 (08:24→20:11)
[2019-07-12] MEDS: HYDROGEN PEROXIDE 3% 118 ML BOTTLE TOP SCH ×2 (09:00→21:00)
--- NOTE | 2019-07-12 09:00 | NUR ---
SEEN BY DR. LON JACOBS.
[2019-07-12] MEDS: CLINDAMYCIN TP SCH (09:16)
[2019-07-12] MEDS: COD LIVER OIL/ZINC OXIDE OINT 113 GM TUBE TP SCH ×2 (09:16→20:11)
[2019-07-12] MEDS: JEVITY 1.2 1000 ML LIQUID GT PRN (12:51)
[2019-07-12 20:00] VITALS: BP 119/83
[2019-07-12] MEDS: MULTIVIT, IRON, MIN NO. 8, FA TABLET GT SCH (20:10)
[2019-07-12] MEDS: FERROUS SULFATE 330 MG/7.5 ML UDC- FOR SA ONLY GT SCH (20:10)
[2019-07-12] MEDS: RANITIDINE 300 MG GT SCH (20:10)
[2019-07-12] MEDS: MELATONIN 5MG TABLET GT SCH (20:10)
[2019-07-12] MEDS: ADAPALENE 0.3% TP SCH (20:11)
[2019-07-13] MEDS: JEVITY 1.2 1000 ML LIQUID GT PRN (04:27)
[2019-07-13] MEDS: hydrALAZINE HCL 10 MG TABLET GT SCH ×3 (06:00→22:00)
[2019-07-13] MEDS: CALCIUM CARBONATE 500 MG TAB.CHEW GT SCH ×2 (06:01→17:48)
[2019-07-13] MEDS: ACIDOPHILUS/BULGARICUS CHEW TAB GT SCH ×2 (08:11→20:46)
[2019-07-13] MEDS: LACOSAMIDE 100 MG/10 ML UDC GT SCH ×2 (08:11→20:46)
[2019-07-13] MEDS: levETIRAcetam 500 MG/5 ML LIQUID UDC GT SCH ×2 (08:11→20:46)
[2019-07-13] MEDS: METOPROLOL TARTRATE 50 MG TABLET GT SCH ×2 (08:13→20:47)
[2019-07-13] MEDS: AMLODIPINE 10 MG TABLET GT SCH (08:14)
[2019-07-13] MEDS: NUTRISOURCE FIBER 4 GM PACKET GT SCH (08:14)
[2019-07-13] MEDS: HEPARIN SODIUM,PORCINE 5,000 UNITS/ML VIAL SQ SCH ×2 (08:15→20:48)
[2019-07-13] MEDS: COD LIVER OIL/ZINC OXIDE OINT 113 GM TUBE TP SCH ×2 (08:15→20:48)
[2019-07-13] MEDS: CLINDAMYCIN TP SCH (08:15)
[2019-07-13] MEDS: HYDROGEN PEROXIDE 3% 118 ML BOTTLE TOP SCH ×2 (09:00→20:10)
[2019-07-13 11:17] VITALS: BP 100/56
--- NOTE | 2019-07-13 16:00 | NUR ---
pt up on russ-chair ready to go OOP to hospital patio. RT, suctioned pt mod amount clear yellowish secretions. Mother at side refused to take portable suctioned machine. Explained benefits and risks in not taking equipment still continue to refused.
--- NOTE | 2019-07-13 17:26 | NUR ---
PT. BACK FROM PATIO AND PT'S MOTHER PRESENT AND NOTED PT. WITH APPARENTLY INSECT BITES SKIN LESIONS LIKE(RED,ROUND AND ELEVATED) .PT'S MOTHER STATED THAT THEY WERE CLOSE TO THE GARDEN BUT CLAIMS THAT PT.'S BODY WAS WELL COVERED.PT'S MOTHER WAS ADVISED TO AVOID PUTTING ON CLOTHES WITH SEQUINS OR OTHER FABRICS THAT MAKE PT. SWEAT OR THAT CAN IRRITATE SKIN TO PROTECT PATIENT AND APPARENTLY IN AGREEMENT. PICTURE WAS TAKEN AND LOCAL TX CARRIED OUT WITH BENADRYL CREAM PRN
[2019-07-13] MEDS: FERROUS SULFATE 330 MG/7.5 ML UDC- FOR SA ONLY GT SCH (20:46)
[2019-07-13] MEDS: RANITIDINE 300 MG GT SCH (20:47)
[2019-07-13] MEDS: MELATONIN 5MG TABLET GT SCH (20:47)
[2019-07-13] MEDS: MULTIVIT, IRON, MIN NO. 8, FA TABLET GT SCH (20:47)
[2019-07-13 20:48] VITALS: BP 130/73
[2019-07-13] MEDS: ADAPALENE 0.3% TP SCH (20:48)
--- NOTE | 2019-07-13 23:00 | NUR ---
Patient's mother was here at the Nurse' Station telling the nurse about a bruise on patient's left wrist. She stated that, " It must be from last night's research worker encyclopedia because I stripped my daughter every night and I haven't noticed the bruise." I went to the room with the nurse assigned to the patient carlene and the SOFTWARE ASSET MANAGER who helped the SOFTWARE ASSET MANAGER that was assigned to the patient last night to take a picture. The patient's mom stated that, " it maybe caused by the blood draw I ordered for her last week." When I looked at the left wrist, the discoloration is turning to yellowish green which looks like it is fading already. I explained to the mother that the bruise or discoloration is not from last night but rather a few days old and looks like it is fading. The nurse discussed also the patient having Heparin which may put patient at risk for easy bruising or even bleeding. Affected skin is intact and is soft and warm to touch, handled very gently, will continue monitor.
[2019-07-14] MEDS: hydrALAZINE HCL 10 MG TABLET GT SCH ×3 (05:19→22:00)
[2019-07-14] MEDS: JEVITY 1.2 1000 ML LIQUID GT PRN (05:19)
[2019-07-14] MEDS: CALCIUM CARBONATE 500 MG TAB.CHEW GT SCH ×2 (05:19→17:59)
[2019-07-14 08:00] VITALS: BP 125/67
[2019-07-14] MEDS: ACIDOPHILUS/BULGARICUS CHEW TAB GT SCH ×2 (08:28→20:25)
[2019-07-14] MEDS: LACOSAMIDE 100 MG/10 ML UDC GT SCH ×2 (08:28→20:25)
[2019-07-14] MEDS: levETIRAcetam 500 MG/5 ML LIQUID UDC GT SCH ×2 (08:28→20:25)
[2019-07-14] MEDS: HEPARIN SODIUM,PORCINE 5,000 UNITS/ML VIAL SQ SCH ×2 (08:29→21:09)
[2019-07-14] MEDS: COD LIVER OIL/ZINC OXIDE OINT 113 GM TUBE TP SCH ×2 (08:29→20:26)
[2019-07-14] MEDS: CLINDAMYCIN TP SCH (08:29)
[2019-07-14] MEDS: AMLODIPINE 10 MG TABLET GT SCH (08:29)
[2019-07-14] MEDS: NUTRISOURCE FIBER 4 GM PACKET GT SCH (08:29)
[2019-07-14] MEDS: METOPROLOL TARTRATE 50 MG TABLET GT SCH ×2 (08:29→20:25)
[2019-07-14] MEDS: HYDROGEN PEROXIDE 3% 118 ML BOTTLE TOP SCH ×2 (09:44→21:29)
--- NOTE | 2019-07-14 16:00 | NUR ---
SEEN AND EXAMINED BY QUAN JACOBS.
[2019-07-14] MEDS: FERROUS SULFATE 330 MG/7.5 ML UDC- FOR SA ONLY GT SCH (20:25)
[2019-07-14] MEDS: MULTIVIT, IRON, MIN NO. 8, FA TABLET GT SCH (20:25)
[2019-07-14] MEDS: RANITIDINE 300 MG GT SCH (20:25)
[2019-07-14] MEDS: MELATONIN 5MG TABLET GT SCH (20:25)
[2019-07-14] MEDS: ADAPALENE 0.3% TP SCH (20:26)
[2019-07-14 22:08] VITALS: BP 116/66
[2019-07-15] MEDS: hydrALAZINE HCL 10 MG TABLET GT SCH ×3 (05:30→22:00)
[2019-07-15] MEDS: CALCIUM CARBONATE 500 MG TAB.CHEW GT SCH ×2 (05:31→17:35)
[2019-07-15 08:00] VITALS: BP 104/60
[2019-07-15] MEDS: LACOSAMIDE 100 MG/10 ML UDC GT SCH ×2 (08:51→20:31)
[2019-07-15] MEDS: ACIDOPHILUS/BULGARICUS CHEW TAB GT SCH ×2 (08:51→20:31)
[2019-07-15] MEDS: levETIRAcetam 500 MG/5 ML LIQUID UDC GT SCH ×2 (08:51→20:31)
[2019-07-15] MEDS: NUTRISOURCE FIBER 4 GM PACKET GT SCH (08:52)
[2019-07-15] MEDS: AMLODIPINE 10 MG TABLET GT SCH (08:52)
[2019-07-15] MEDS: METOPROLOL TARTRATE 50 MG TABLET GT SCH ×2 (08:52→20:31)
[2019-07-15] MEDS: HEPARIN SODIUM,PORCINE 5,000 UNITS/ML VIAL SQ SCH ×2 (08:53→20:33)
[2019-07-15] MEDS: COD LIVER OIL/ZINC OXIDE OINT 113 GM TUBE TP SCH ×2 (08:53→20:33)
[2019-07-15] MEDS: CLINDAMYCIN TP SCH (08:53)
[2019-07-15] MEDS: HYDROGEN PEROXIDE 3% 118 ML BOTTLE TOP SCH ×2 (09:55→21:06)
--- NOTE | 2019-07-15 10:41 | NUR ---
SAPNA is working with Prashanth Alvarenga, Department of Neurosurgery, [facility], [facility], to coordinate transportation and all preparations prior to patient's clinical research study appointments on July 27 and August 03. Prashanth Alvarenga stated that he will be arranging the ambulance. Prashanth asked for patient's address, room number, height, weight, and respiratory needs. SAPNA provided Prashanth with this information this morning via telephone, leaving him a voicemail message at [phone].
--- NOTE | 2019-07-15 15:35 | NUR ---
After consulting with Manager Of Maintenance German Liu, SOC 341 report faxed to Neena at [facility], fax # [phone]; tel # [phone].
--- NOTE | 2019-07-15 20:00 | NUR ---
License Nurse called me to check on patient's Right buttock and stated that patient's mother wants to take a picture. I went to the patient's room and checked on the skin. The skin is red and raised, skin is intact, I asked the mother if the patient went out today but mother said no. Cleansed skin and initiated in- house treatment which mother agreed to. kept clean and comfortable, will continue monitor.
[2019-07-15] MEDS: RANITIDINE 300 MG GT SCH (20:31)
[2019-07-15] MEDS: MULTIVIT, IRON, MIN NO. 8, FA TABLET GT SCH (20:31)
[2019-07-15] MEDS: MELATONIN 5MG TABLET GT SCH (20:31)
[2019-07-15] MEDS: FERROUS SULFATE 330 MG/7.5 ML UDC- FOR SA ONLY GT SCH (20:31)
[2019-07-15] MEDS: ADAPALENE 0.3% TP SCH (20:33)
[2019-07-15 20:54] VITALS: BP 120/60
[2019-07-15 22:00] VITALS: BP 109/61
[2019-07-15] MEDS: COD LIVER OIL/ZINC OXIDE OINT 113 GM TUBE TOP SCH (22:26)
[2019-07-16] MEDS: JEVITY 1.2 1000 ML LIQUID GT PRN ×2 (00:49→20:00)
[2019-07-16 05:09] VITALS: BP 88/47
[2019-07-16] MEDS: hydrALAZINE HCL 10 MG TABLET GT SCH ×3 (05:11→22:23)
[2019-07-16] MEDS: CALCIUM CARBONATE 500 MG TAB.CHEW GT SCH ×2 (05:12→17:39)
[2019-07-16 08:00] VITALS: BP 104/53
[2019-07-16] MEDS: levETIRAcetam 500 MG/5 ML LIQUID UDC GT SCH ×2 (08:31→20:31)
[2019-07-16] MEDS: LACOSAMIDE 100 MG/10 ML UDC GT SCH ×2 (08:31→20:31)
[2019-07-16] MEDS: ACIDOPHILUS/BULGARICUS CHEW TAB GT SCH ×2 (08:31→20:31)
[2019-07-16] MEDS: AMLODIPINE 10 MG TABLET GT SCH (08:36)
[2019-07-16] MEDS: NUTRISOURCE FIBER 4 GM PACKET GT SCH (08:36)
[2019-07-16] MEDS: METOPROLOL TARTRATE 50 MG TABLET GT SCH ×2 (08:36→20:32)
[2019-07-16] MEDS: COD LIVER OIL/ZINC OXIDE OINT 113 GM TUBE TP SCH ×2 (08:37→20:33)
[2019-07-16] MEDS: COD LIVER OIL/ZINC OXIDE OINT 113 GM TUBE TOP SCH ×2 (08:37→20:33)
[2019-07-16] MEDS: CLINDAMYCIN TP SCH (08:37)
[2019-07-16] MEDS: HEPARIN SODIUM,PORCINE 5,000 UNITS/ML VIAL SQ SCH ×2 (08:41→20:33)
[2019-07-16] MEDS: HYDROGEN PEROXIDE 3% 118 ML BOTTLE TOP SCH ×2 (09:56→21:19)
--- NOTE | 2019-07-16 14:00 | NUR ---
Verify with pt's mother regarding how she suction the patient when she is out to the patio,she stated she was trained by 2 RT's,and she feel comfortable to do it.
--- NOTE | 2019-07-16 14:11 | NUR ---
Patient's mother Abdoul asked this to send a fax for her. Abdoul handed this SW the Request for Temporary Medical Exemption From Plan Enrollment form, which was completed by herself and by Dr. Kiran. Sarahroman also handed this SW a stack of patient's medical records (physicians notes and labs) which she had obtained on her own. The total number of pages to be faxed were 71 pages, including the cover sheet. Per Abdoul's request, SAPNA faxed the [facility] Exemption form and the medical records to [facility] [phone]. returned all 71 pages to Marilee, along with the fax transmittal form which shows that all 71 pages were faxed successfully. A copy of these 71 pages were filed in patient's file in office.
--- NOTE | 2019-07-16 14:16 | NUR ---
SAPNA met with patient's mother Abdoul and informed her that the next IDT meeting for the patient has been scheduled for 07/22/2019 at 10am.
[2019-07-16 20:00] VITALS: BP 137/92
[2019-07-16] MEDS: FERROUS SULFATE 330 MG/7.5 ML UDC- FOR SA ONLY GT SCH (20:31)
[2019-07-16] MEDS: RANITIDINE 300 MG GT SCH (20:32)
[2019-07-16] MEDS: MELATONIN 5MG TABLET GT SCH (20:32)
[2019-07-16] MEDS: MULTIVIT, IRON, MIN NO. 8, FA TABLET GT SCH (20:32)
[2019-07-16] MEDS: ADAPALENE 0.3% TP SCH (20:33)
[2019-07-17] MEDS: CALCIUM CARBONATE 500 MG TAB.CHEW GT SCH ×2 (05:49→17:08)
[2019-07-17] MEDS: hydrALAZINE HCL 10 MG TABLET GT SCH ×3 (05:49→22:00)
[2019-07-17 05:50] VITALS: BP 98/53
[2019-07-17 08:00] VITALS: BP 98/58
[2019-07-17] MEDS: HYDROGEN PEROXIDE 3% 118 ML BOTTLE TOP SCH ×2 (08:03→20:57)
[2019-07-17] MEDS: HEPARIN SODIUM,PORCINE 5,000 UNITS/ML VIAL SQ SCH ×2 (08:34→21:46)
[2019-07-17] MEDS: levETIRAcetam 500 MG/5 ML LIQUID UDC GT SCH ×2 (08:34→20:00)
[2019-07-17] MEDS: LACOSAMIDE 100 MG/10 ML UDC GT SCH ×2 (08:34→20:00)
[2019-07-17] MEDS: ACIDOPHILUS/BULGARICUS CHEW TAB GT SCH ×2 (08:34→21:45)
[2019-07-17] MEDS: METOPROLOL TARTRATE 50 MG TABLET GT SCH ×2 (08:35→21:46)
[2019-07-17] MEDS: NUTRISOURCE FIBER 4 GM PACKET GT SCH (08:36)
[2019-07-17] MEDS: COD LIVER OIL/ZINC OXIDE OINT 113 GM TUBE TP SCH ×2 (08:36→21:49)
[2019-07-17] MEDS: AMLODIPINE 10 MG TABLET GT SCH (08:36)
[2019-07-17] MEDS: COD LIVER OIL/ZINC OXIDE OINT 113 GM TUBE TOP SCH ×2 (08:36→21:49)
[2019-07-17] MEDS: CLINDAMYCIN TP SCH (08:36)
[2019-07-17] MEDS: JEVITY 1.2 1000 ML LIQUID GT PRN (12:20)
--- NOTE | 2019-07-17 19:00 | NUR ---
SEEN BY WITH NNO.
[2019-07-17 20:42] VITALS: BP 116/76
[2019-07-17] MEDS: FERROUS SULFATE 330 MG/7.5 ML UDC- FOR SA ONLY GT SCH (21:45)
[2019-07-17] MEDS: MULTIVIT, IRON, MIN NO. 8, FA TABLET GT SCH (21:46)
[2019-07-17] MEDS: MELATONIN 5MG TABLET GT SCH (21:46)
[2019-07-17] MEDS: RANITIDINE 300 MG GT SCH (21:46)
[2019-07-17] MEDS: ADAPALENE 0.3% TP SCH (21:49)
[2019-07-18] MEDS: JEVITY 1.2 1000 ML LIQUID GT PRN (03:00)
[2019-07-18] MEDS: hydrALAZINE HCL 10 MG TABLET GT SCH ×3 (06:00→21:29)
[2019-07-18] MEDS: CALCIUM CARBONATE 500 MG TAB.CHEW GT SCH ×2 (06:09→17:07)
[2019-07-18 08:00] VITALS: BP 129/80
[2019-07-18] MEDS: LACOSAMIDE 100 MG/10 ML UDC GT SCH ×2 (08:38→20:20)
[2019-07-18] MEDS: levETIRAcetam 500 MG/5 ML LIQUID UDC GT SCH ×2 (08:38→20:20)
[2019-07-18] MEDS: ACIDOPHILUS/BULGARICUS CHEW TAB GT SCH ×2 (08:38→20:20)
[2019-07-18] MEDS: METOPROLOL TARTRATE 50 MG TABLET GT SCH ×2 (08:39→20:20)
[2019-07-18] MEDS: NUTRISOURCE FIBER 4 GM PACKET GT SCH (08:39)
[2019-07-18] MEDS: AMLODIPINE 10 MG TABLET GT SCH (08:39)
[2019-07-18] MEDS: CLINDAMYCIN TP SCH (08:41)
[2019-07-18] MEDS: HEPARIN SODIUM,PORCINE 5,000 UNITS/ML VIAL SQ SCH ×2 (08:41→20:21)
[2019-07-18] MEDS: COD LIVER OIL/ZINC OXIDE OINT 113 GM TUBE TP SCH ×2 (08:41→20:21)
[2019-07-18] MEDS: COD LIVER OIL/ZINC OXIDE OINT 113 GM TUBE TOP SCH ×2 (08:41→20:21)
[2019-07-18] MEDS: HYDROGEN PEROXIDE 3% 118 ML BOTTLE TOP SCH ×2 (10:05→21:50)
[2019-07-18] MEDS: MELATONIN 5MG TABLET GT SCH (20:20)
[2019-07-18] MEDS: FERROUS SULFATE 330 MG/7.5 ML UDC- FOR SA ONLY GT SCH (20:20)
[2019-07-18] MEDS: RANITIDINE 300 MG GT SCH (20:20)
[2019-07-18] MEDS: MULTIVIT, IRON, MIN NO. 8, FA TABLET GT SCH (20:20)
[2019-07-18] MEDS: ADAPALENE 0.3% TP SCH (20:21)
[2019-07-18 20:57] VITALS: BP 107/74
[2019-07-19] MEDS: JEVITY 1.2 1000 ML LIQUID GT PRN ×2 (02:17→17:34)
[2019-07-19] MEDS: CALCIUM CARBONATE 500 MG TAB.CHEW GT SCH ×2 (05:10→17:23)
[2019-07-19] MEDS: hydrALAZINE HCL 10 MG TABLET GT SCH ×3 (05:10→21:30)
[2019-07-19 08:08] VITALS: BP 104/66
[2019-07-19] MEDS: ACIDOPHILUS/BULGARICUS CHEW TAB GT SCH ×2 (08:22→20:39)
[2019-07-19] MEDS: levETIRAcetam 500 MG/5 ML LIQUID UDC GT SCH ×2 (08:22→20:39)
[2019-07-19] MEDS: LACOSAMIDE 100 MG/10 ML UDC GT SCH ×2 (08:22→20:39)
[2019-07-19] MEDS: NUTRISOURCE FIBER 4 GM PACKET GT SCH (08:25)
[2019-07-19] MEDS: METOPROLOL TARTRATE 50 MG TABLET GT SCH ×2 (08:27→20:40)
[2019-07-19] MEDS: AMLODIPINE 10 MG TABLET GT SCH (08:27)
[2019-07-19] MEDS: HEPARIN SODIUM,PORCINE 5,000 UNITS/ML VIAL SQ SCH ×2 (08:27→20:40)
[2019-07-19] MEDS: CLINDAMYCIN TP SCH (08:28)
[2019-07-19] MEDS: COD LIVER OIL/ZINC OXIDE OINT 113 GM TUBE TP SCH ×2 (08:36→20:40)
[2019-07-19] MEDS: COD LIVER OIL/ZINC OXIDE OINT 113 GM TUBE TOP SCH ×2 (08:36→20:40)
[2019-07-19] MEDS: HYDROGEN PEROXIDE 3% 118 ML BOTTLE TOP SCH ×2 (09:48→21:50)
[2019-07-19] MEDS: POLYVINYL ALCOHOL OPHT DROPS 15 ML BOTTLE EACHEYE PRN (17:42)
[2019-07-19] MEDS: FERROUS SULFATE 330 MG/7.5 ML UDC- FOR SA ONLY GT SCH (20:39)
[2019-07-19] MEDS: MULTIVIT, IRON, MIN NO. 8, FA TABLET GT SCH (20:40)
[2019-07-19] MEDS: RANITIDINE 300 MG GT SCH (20:40)
[2019-07-19] MEDS: MELATONIN 5MG TABLET GT SCH (20:40)
[2019-07-19] MEDS: ADAPALENE 0.3% TP SCH (20:40)
[2019-07-19 20:50] VITALS: BP 123/89
[2019-07-20] MEDS: hydrALAZINE HCL 10 MG TABLET GT SCH ×3 (05:19→21:39)
[2019-07-20] MEDS: CALCIUM CARBONATE 500 MG TAB.CHEW GT SCH ×2 (05:19→17:32)
[2019-07-20 08:00] VITALS: BP 139/74
[2019-07-20] MEDS: AMLODIPINE 10 MG TABLET GT SCH (08:35)
[2019-07-20] MEDS: LACOSAMIDE 100 MG/10 ML UDC GT SCH ×2 (08:35→20:44)
[2019-07-20] MEDS: levETIRAcetam 500 MG/5 ML LIQUID UDC GT SCH ×2 (08:35→20:44)
[2019-07-20] MEDS: NUTRISOURCE FIBER 4 GM PACKET GT SCH (08:35)
[2019-07-20] MEDS: METOPROLOL TARTRATE 50 MG TABLET GT SCH ×2 (08:35→20:45)
[2019-07-20] MEDS: ACIDOPHILUS/BULGARICUS CHEW TAB GT SCH ×2 (08:35→20:45)
[2019-07-20] MEDS: HYDROGEN PEROXIDE 3% 118 ML BOTTLE TOP SCH ×2 (08:36→21:10)
[2019-07-20] MEDS: HEPARIN SODIUM,PORCINE 5,000 UNITS/ML VIAL SQ SCH ×2 (08:36→20:45)
[2019-07-20] MEDS: COD LIVER OIL/ZINC OXIDE OINT 113 GM TUBE TOP SCH ×2 (08:36→20:45)
[2019-07-20] MEDS: CLINDAMYCIN TP SCH (08:37)
[2019-07-20] MEDS: COD LIVER OIL/ZINC OXIDE OINT 113 GM TUBE TP SCH ×2 (08:37→20:45)
[2019-07-20] MEDS: JEVITY 1.2 1000 ML LIQUID GT PRN (15:04)
[2019-07-20] MEDS: FERROUS SULFATE 330 MG/7.5 ML UDC- FOR SA ONLY GT SCH (20:44)
[2019-07-20] MEDS: RANITIDINE 300 MG GT SCH (20:45)
[2019-07-20] MEDS: ADAPALENE 0.3% TP SCH (20:45)
[2019-07-20] MEDS: MELATONIN 5MG TABLET GT SCH (20:45)
[2019-07-20] MEDS: MULTIVIT, IRON, MIN NO. 8, FA TABLET GT SCH (20:45)
[2019-07-20 20:58] VITALS: BP 106/79
[2019-07-21] MEDS: JEVITY 1.2 1000 ML LIQUID GT PRN (01:31)
[2019-07-21] MEDS: CALCIUM CARBONATE 500 MG TAB.CHEW GT SCH ×2 (05:21→17:51)
[2019-07-21] MEDS: hydrALAZINE HCL 10 MG TABLET GT SCH ×3 (05:21→22:38)
[2019-07-21 08:00] VITALS: BP 109/65
[2019-07-21] MEDS: levETIRAcetam 500 MG/5 ML LIQUID UDC GT SCH ×2 (08:10→20:09)
[2019-07-21] MEDS: METOPROLOL TARTRATE 50 MG TABLET GT SCH ×2 (08:11→20:30)
[2019-07-21] MEDS: LACOSAMIDE 100 MG/10 ML UDC GT SCH ×2 (08:11→20:09)
[2019-07-21] MEDS: AMLODIPINE 10 MG TABLET GT SCH (08:11)
[2019-07-21] MEDS: ACIDOPHILUS/BULGARICUS CHEW TAB GT SCH ×2 (08:11→20:09)
[2019-07-21] MEDS: NUTRISOURCE FIBER 4 GM PACKET GT SCH (08:12)
[2019-07-21] MEDS: HEPARIN SODIUM,PORCINE 5,000 UNITS/ML VIAL SQ SCH ×2 (08:12→20:31)
[2019-07-21] MEDS: COD LIVER OIL/ZINC OXIDE OINT 113 GM TUBE TP SCH ×2 (08:44→20:12)
[2019-07-21] MEDS: COD LIVER OIL/ZINC OXIDE OINT 113 GM TUBE TOP SCH ×2 (08:44→20:12)
[2019-07-21] MEDS: CLINDAMYCIN TP SCH (08:45)
[2019-07-21] MEDS: HYDROGEN PEROXIDE 3% 118 ML BOTTLE TOP SCH ×2 (09:58→21:57)
--- NOTE | 2019-07-21 13:54 | NUR ---
Dr. Dawson from [facility] research study called this SW earlier today, wanting to ask some questions pertaining to patient's oxygen usage levels. SW asked tank charger Mario for assistance with Dr. Dawson questions, and therefore both CARLOS Casey and this SW were able to provide Dr. Dawson with the necessary information in preparation for patient's clinical study scheduled for July [address] Dawson had additional procedural questions regarding the study, and this SW stated that it would be best for Dr. Dawson to discuss those questions with patient's mother directly. SW stated that patient's mother was currently not at the hospital, but that once she arrived, SAPNA could reach out to Dr. Dawson and coordinate a phone conference with Dr. Dawson, this SW, and patient's mother. Dr. Dawson agreed and provided this SW with her cell phone number. At 1:50pm, patient's mother Abdoul arrived to the hospital. SAPNA met with Abdoul immediately and informed her of above, and asked Abdoul to come to SAPNA's office once she checked on her daughter, so that SAPNA can coordinate a phone call with Dr. Dawson. Abdoul expressed agreement.
--- NOTE | 2019-07-21 15:06 | NUR ---
Noted today with 2 small early pinpoint pimples on nasal bridge, small redness under tracheostomy, seen by Priti DAMON, no new orders given at this time, will continue monitoring.
--- NOTE | 2019-07-21 15:48 | NUR ---
2:46pm: SW went to patient's room to follow-up with Abdoul, since Abdoul had not come by this SW's office yet as discussed earlier this afternoon (see previous SS note). Abdoul said "oh yes yes, that's right, we can call her now". Abdoul asked SW if the call could be done from patient's room. SW then called Dr. Dawson and this SAPNA, Abdoul, and Dr. Dawson had a conversation all together regarding preparations for patient's ambulance transport for the clinical studies. Dr. Dawson stated that she was going to look into whether an RT could be included in the ambulance transport, in order to be next to the patient for any unexpected incidents, such as suctioning needs. Abdoul expressed understanding, but Abdoul also stated that she herself would feel comfortable suctioning the patient if patient needed suctioning during transport. Dr. Dawson expressed understanding, and stated that she was still going to look into the transport arrangements and options, and get back to this SAPNA and Abdoul about what the options were going to be available to them in order to safely transport patient via ambulance on the scheduled clinical study days, July 27 and August 03. This SAPNA, Abdoul, and Dr. Dawson were all in agreement to await for further information and instructions from Dr. Dawson.
--- NOTE | 2019-07-21 15:58 | NUR ---
3:58pm: SW received an email back from Dr. Daswon are [facility]. The following individuals were included on this email: Patient mother Abdoul; this SW; Fisher [employer] German Liu, and Prashanth Alvarenga ([facility] clinical study steam plant control room operator). The email included the following information: Jani Eli Abdoul, I double checked with the team and all is good: 1) the ambulance team knows how to suction but Abdoul can also sit in the back if she wants to do it herself; 2) additionally to what will be provided by your hospital, oxygen can be provided in PTU, during transfer to/from MRI, and in the MRI 3) the entire team feels comfortable with this situation. Finally, a schedule will be provided before Sunday. SW will wait to hear back from Dr. Dawson and/or Prashanth Alvarenga regarding the schedule for ambulance pick-up on Thursday 07/27 and the schedule for this upcoming weekend, when the clinical research team will be visiting the patient on Tuesday 07/25 and Wednesday 07/26, in order to complete the necessary assessments before patient's first clinical research study appointment on Thursday 07/27.
[2019-07-21] MEDS: FERROUS SULFATE 330 MG/7.5 ML UDC- FOR SA ONLY GT SCH (20:09)
[2019-07-21] MEDS: MELATONIN 5MG TABLET GT SCH (20:10)
[2019-07-21] MEDS: RANITIDINE 300 MG GT SCH (20:10)
[2019-07-21] MEDS: MULTIVIT, IRON, MIN NO. 8, FA TABLET GT SCH (20:12)
[2019-07-21] MEDS: ADAPALENE 0.3% TP SCH (20:12)
[2019-07-21 20:45] VITALS: BP 126/81
[2019-07-22] MEDS: CALCIUM CARBONATE 500 MG TAB.CHEW GT SCH ×2 (05:15→17:50)
[2019-07-22] MEDS: hydrALAZINE HCL 10 MG TABLET GT SCH ×3 (05:15→21:46)
[2019-07-22 07:08] LABS: BASOPHILS % (AUTO) 0.5 % (0.0-2.0); CARBON DIOXIDE 29 mmol/L (21-32); CHLORIDE 108 mmol/L (98-107); CREATININE 0.4 mg/dL (0.6-1.3); EOSINOPHILS # (AUTO) 0.4 K/uL (0.0-0.7); GLUCOSE 109 mg/dL (74-106); HEMATOCRIT 40.7 % (31.2-41.9); HEMOGLOBIN 13.9 g/dL (10.9-14.3); LYMPHOCYTES # (AUTO) 1.7 K/uL (20.0-40.0); LYMPHOCYTES % (AUTO) 19.8 % (20.5-51.5); MAGNESIUM 2.3 mg/dL (1.8-2.4); MEAN CORPUSCULAR HGB CONC 34 g/dL (32.3-35.6); MEAN CORPUSCULAR VOLUME 90.9 fL (75.5-95.3); MONOCYTES # (AUTO) 0.6 K/uL (2.0-10.0); MONOCYTES % (AUTO) 7.6 % (0.0-11.0); NEUTROPHILS # (AUTO) 5.7 K/uL (1.8-8.9); NEUTROPHILS % (AUTO) 67.1 % (38.5-71.5); PHOSPHOROUS 5.1 mg/dL (2.5-4.9); PLATELET COUNT (AUTO) 337 K/uL (179-408); POTASSIUM 4.2 mmol/L (3.5-5.1); RED BLOOD CELL COUNT(AUTO) 4.48 MIL/uL (3.63-4.92); UREA NITROGEN, BLOOD 10 mg/dL (7-18); WHITE BLOOD COUNT (AUTO) 8.5 K/uL (3.8-11.8)
[2019-07-22 08:00] VITALS: BP 110/55
[2019-07-22] MEDS: levETIRAcetam 500 MG/5 ML LIQUID UDC GT SCH ×2 (08:00→20:01)
[2019-07-22] MEDS: LACOSAMIDE 100 MG/10 ML UDC GT SCH ×2 (08:00→20:02)
[2019-07-22] MEDS: ACIDOPHILUS/BULGARICUS CHEW TAB GT SCH ×2 (09:10→20:02)
[2019-07-22] MEDS: AMLODIPINE 10 MG TABLET GT SCH (09:11)
[2019-07-22] MEDS: NUTRISOURCE FIBER 4 GM PACKET GT SCH (09:11)
[2019-07-22] MEDS: METOPROLOL TARTRATE 50 MG TABLET GT SCH ×2 (09:11→20:03)
[2019-07-22] MEDS: COD LIVER OIL/ZINC OXIDE OINT 113 GM TUBE TOP SCH (09:12)
[2019-07-22] MEDS: COD LIVER OIL/ZINC OXIDE OINT 113 GM TUBE TP SCH ×2 (09:12→20:30)
[2019-07-22] MEDS: CLINDAMYCIN TP SCH (09:12)
[2019-07-22] MEDS: POLYVINYL ALCOHOL OPHT DROPS 15 ML BOTTLE EACHEYE PRN (09:13)
[2019-07-22] MEDS: HEPARIN SODIUM,PORCINE 5,000 UNITS/ML VIAL SQ SCH ×2 (09:14→20:30)
[2019-07-22] MEDS: HYDROGEN PEROXIDE 3% 118 ML BOTTLE TOP SCH ×2 (09:55→21:18)
--- NOTE | 2019-07-22 13:00 | NUR ---
Seen and examined by Priti Howard,no new orders .
--- NOTE | 2019-07-22 14:19 | NUR ---
Pharmacy Update from Today's 07/22/19 IDT Meeting VS: Temp 98.5 HR 88 BP 108/58 LABS: (from 07/22/19) Wbc 8.5 H/H 13.9/40.7 Plt 337 Na 143 K 4.2 Cl 108 CO2 29 BUN/SCr 10/0.4 BS 109 Ca 9.9 phos 5.1 Mg 2.3 MEDICATION USE REVIEWED: > Pt not on any anti-psych medications > Pt on Keppra 1000mg q12hr since 03/11/19. CrCl >100, ok per renal function. Neurology continues to follow and adjust > Pt on Vimpat 200mg q12hr since 04/18/19 per neurology > Pt on ativan 0.5mg q12h PRN agitation m/b tachycardia, increased perspiration, grimacing, biting lips, musc tension, started 04/06 per neurology. Used x0 in Jun, effective per staff > Pt on Heparin 5000mg q12hr for DVT prophylaxis. No bleeding noted; Last plt 337 > On Norvasc 10mg daily, hydralazine 10mg q8hr, lopressor 50mg q12hr with hold parameters. Last BP 108/58 > Pt on ranitidine 300mg qhs started 06/12/19, ok dose per renal function PRN MED USAGE: (Jun) Tylenol for pain used x1 Tylenol for fever used x0 Hydralazine for SBP>180 used x0 Artificial tears PRN used x0 Lorazepam PRN seizures/spasms used x0 Mouthcard used x0 NEW ORDERS NOTED: > Hydralazine frequency changed q6hr to q8hr per Rx rec and mother agreement d/t mother request for reduced medication burden for pt during evening hours. As BP largely low/wnl, agreed for change. So far BP wnl after change. > Nystatin cream to right axilla 06/23-07/07 Patient was reviewed and discussed in depth with all medication changes and issues noted per team. Family in attendance, noted change in hydralazine freq with no issues. Mother did inquire about using already opened bottle of pt own med however, d/t safety and policy concerns, bottle may not be accepted as unable to verify contents were unadulterated with seal broken. Mother aware and understood, any sequential bottles are to be unopened and checked into pharmacy until dispensed as pt own med. No further rx recs at this time, will continue to follow.
--- NOTE | 2019-07-22 14:45 | NUR ---
Pt back from the patio with mom,appears in stable condition,strategic alliances manager's called to the room to transfer pt back to bed
--- NOTE | 2019-07-22 16:49 | NUR ---
INTERDISCIPLINARY PLAN OF CARE CONFERENCE was held today. Patient's mother Abdoul was present at the meeting. Dr. Ramos and the Interdisciplinary Team reviewed the current plan of care in detail. RN reported on patient's medical condition, medications, and recent labs. See RN IDT conference notes. No major changes in condition were reported. SW, Dr. Ramos, and Abdoul reviewed the preparations needed for patient's visit to [facility] for the clinical research study on 07/27 and 08/03. PT stated that she will re-screen the patient for leg and arm positioning. See all disciplines IDT notes and physician's progress notes for additional details. Abdoul's questions were addressed by the interdisciplinary team.
[2019-07-22] MEDS: FERROUS SULFATE 330 MG/7.5 ML UDC- FOR SA ONLY GT SCH (20:02)
[2019-07-22] MEDS: MELATONIN 5MG TABLET GT SCH (20:05)
[2019-07-22] MEDS: RANITIDINE 300 MG GT SCH (20:06)
[2019-07-22] MEDS: MULTIVIT, IRON, MIN NO. 8, FA TABLET GT SCH (20:07)
[2019-07-22 20:11] VITALS: BP 144/79
[2019-07-22] MEDS: ADAPALENE 0.3% TP SCH (20:30)
[2019-07-23] MEDS: CALCIUM CARBONATE 500 MG TAB.CHEW GT SCH ×2 (05:44→18:16)
[2019-07-23] MEDS: hydrALAZINE HCL 10 MG TABLET GT SCH ×3 (05:44→22:00)
[2019-07-23] MEDS: JEVITY 1.2 1000 ML LIQUID GT PRN ×2 (06:00→21:15)
[2019-07-23 08:00] VITALS: BP 104/64
[2019-07-23] MEDS: LACOSAMIDE 100 MG/10 ML UDC GT SCH ×2 (08:19→20:04)
[2019-07-23] MEDS: levETIRAcetam 500 MG/5 ML LIQUID UDC GT SCH ×2 (08:19→20:03)
[2019-07-23] MEDS: METOPROLOL TARTRATE 50 MG TABLET GT SCH ×2 (08:19→20:04)
[2019-07-23] MEDS: ACIDOPHILUS/BULGARICUS CHEW TAB GT SCH ×2 (08:19→20:04)
[2019-07-23] MEDS: HEPARIN SODIUM,PORCINE 5,000 UNITS/ML VIAL SQ SCH ×2 (08:20→20:06)
[2019-07-23] MEDS: AMLODIPINE 10 MG TABLET GT SCH (08:20)
[2019-07-23] MEDS: NUTRISOURCE FIBER 4 GM PACKET GT SCH (08:20)
[2019-07-23] MEDS: COD LIVER OIL/ZINC OXIDE OINT 113 GM TUBE TP SCH ×2 (08:21→20:06)
[2019-07-23] MEDS: CLINDAMYCIN TP SCH (08:21)
[2019-07-23] MEDS: HYDROGEN PEROXIDE 3% 118 ML BOTTLE TOP SCH ×2 (09:14→21:58)
--- NOTE | 2019-07-23 10:00 | NUR ---
Pt mother's call and request to increase the volume of the CD player,she played an affirmation for the daughter 24 hours a day .
--- NOTE | 2019-07-23 11:00 | NUR ---
Explain to pt's mother ,all the medications provided by families per policy needs to be sealed,Marilee pt's mother very upset because she stated ,accidentally open one of the melatonin bottles,but we can't accept it.pt's mother gets agressive sometimes with nursing staff.
--- NOTE | 2019-07-23 17:00 | NUR ---
Pt's mother request to please refrain from touching or washing pt's face ,because she has redness and rashes,will observe .
[2019-07-23] MEDS: FERROUS SULFATE 330 MG/7.5 ML UDC- FOR SA ONLY GT SCH (20:04)
[2019-07-23] MEDS: MULTIVIT, IRON, MIN NO. 8, FA TABLET GT SCH (20:05)
[2019-07-23] MEDS: MELATONIN 5MG TABLET GT SCH (20:05)
[2019-07-23] MEDS: RANITIDINE 300 MG GT SCH (20:05)
[2019-07-23] MEDS: ADAPALENE 0.3% TP SCH (20:06)
[2019-07-23 20:22] VITALS: BP 108/64
[2019-07-24] MEDS: hydrALAZINE HCL 10 MG TABLET GT SCH ×3 (05:41→22:00)
[2019-07-24] MEDS: CALCIUM CARBONATE 500 MG TAB.CHEW GT SCH ×2 (05:41→17:30)
[2019-07-24 08:00] VITALS: BP 111/69
[2019-07-24] MEDS: HYDROGEN PEROXIDE 3% 118 ML BOTTLE TOP SCH ×2 (08:03→21:15)
[2019-07-24] MEDS: levETIRAcetam 500 MG/5 ML LIQUID UDC GT SCH ×2 (08:38→20:01)
[2019-07-24] MEDS: LACOSAMIDE 100 MG/10 ML UDC GT SCH ×2 (08:38→20:01)
[2019-07-24] MEDS: ACIDOPHILUS/BULGARICUS CHEW TAB GT SCH ×2 (08:38→20:01)
[2019-07-24] MEDS: METOPROLOL TARTRATE 50 MG TABLET GT SCH ×2 (08:39→20:02)
[2019-07-24] MEDS: COD LIVER OIL/ZINC OXIDE OINT 113 GM TUBE TP SCH ×2 (08:40→20:05)
[2019-07-24] MEDS: HEPARIN SODIUM,PORCINE 5,000 UNITS/ML VIAL SQ SCH ×2 (08:40→20:05)
[2019-07-24] MEDS: NEOMY/BACITRA/POLYMYXIN B OINT UD PACKET TP SCH ×2 (08:40→20:06)
[2019-07-24] MEDS: CLINDAMYCIN TP SCH (08:40)
[2019-07-24] MEDS: NUTRISOURCE FIBER 4 GM PACKET GT SCH (08:40)
[2019-07-24] MEDS: AMLODIPINE 10 MG TABLET GT SCH (08:40)
--- NOTE | 2019-07-24 13:20 | NUR ---
SEEN BY DR. FU AND WITH NNO.
--- NOTE | 2019-07-24 16:37 | NUR ---
SW received an email from Prashanth Alvarenga at [facility] regarding preparations and transportation arrangements for patient's clinical research study at [facility]. The information included the following: Prashanth has scheduled the ambulance to picker machine operator the patient from [facility] Room 425 Bed A on 07/27 and 08/03 at 12PM on both days. Ambulance company is [employer]. Feeding must be held after 9AM on both days. Patient will be visited on Sunday, 07/25 and Wednesday 07/26 by the clinical team in order for them to complete an assessment prior to the clinical study. Prashanth stated that he will visit the patient on July 25 between 11 am - 1pm. Prashanth stated that his colleague Gigi will visit the patient on SundayJuly 26. This SW is awaiting information from Gigi regarding the time he will be visiting the patient on 07/26. Prashanth also stated that he will visit the patient on Friday 07/28 between 10 am -12 pm to follow up with the patient one day after the clinical research study. This SW relayed all the above information to tank charger Norma.
--- NOTE | 2019-07-24 17:00 | NUR ---
SEEN BY DR.ASHIANI ALFARO AND [facility] A[facility]ENE.
[2019-07-24] MEDS: FERROUS SULFATE 330 MG/7.5 ML UDC- FOR SA ONLY GT SCH (20:01)
[2019-07-24] MEDS: MELATONIN 5MG TABLET GT SCH (20:02)
[2019-07-24] MEDS: RANITIDINE 300 MG GT SCH (20:03)
[2019-07-24] MEDS: MULTIVIT, IRON, MIN NO. 8, FA TABLET GT SCH (20:04)
[2019-07-24] MEDS: ADAPALENE 0.3% TP SCH (20:06)
[2019-07-24 20:33] VITALS: BP 119/75
[2019-07-25] MEDS: hydrALAZINE HCL 10 MG TABLET GT SCH ×4 (06:00→22:00)
[2019-07-25] MEDS: JEVITY 1.2 1000 ML LIQUID GT PRN (06:15)
[2019-07-25] MEDS: CALCIUM CARBONATE 500 MG TAB.CHEW GT SCH ×2 (06:15→17:36)
[2019-07-25 08:00] VITALS: BP 113/58
[2019-07-25] MEDS: levETIRAcetam 500 MG/5 ML LIQUID UDC GT SCH ×2 (08:22→20:00)
[2019-07-25] MEDS: ACIDOPHILUS/BULGARICUS CHEW TAB GT SCH ×2 (08:23→21:10)
[2019-07-25] MEDS: LACOSAMIDE 100 MG/10 ML UDC GT SCH ×2 (08:23→20:00)
[2019-07-25] MEDS: METOPROLOL TARTRATE 50 MG TABLET GT SCH ×2 (08:24→21:12)
[2019-07-25] MEDS: AMLODIPINE 10 MG TABLET GT SCH (08:24)
[2019-07-25] MEDS: HEPARIN SODIUM,PORCINE 5,000 UNITS/ML VIAL SQ SCH ×2 (08:25→21:10)
[2019-07-25] MEDS: NUTRISOURCE FIBER 4 GM PACKET GT SCH (08:25)
[2019-07-25] MEDS: COD LIVER OIL/ZINC OXIDE OINT 113 GM TUBE TP SCH ×2 (08:26→21:11)
[2019-07-25] MEDS: CLINDAMYCIN TP SCH (08:26)
[2019-07-25] MEDS: NEOMY/BACITRA/POLYMYXIN B OINT UD PACKET TP SCH ×2 (08:26→21:12)
--- NOTE | 2019-07-25 08:57 | NUR ---
NEW ORDER WAS CARRIED OUT FROM DR. GERARDO ALFARO FOR OT EVAL FOR RT. UPPER EXTREMITY RECOMMENDED BY SUSI Saha
[2019-07-25] MEDS: HYDROGEN PEROXIDE 3% 118 ML BOTTLE TOP SCH ×2 (09:00→21:41)
[2019-07-25] MEDS: MULTIVIT, IRON, MIN NO. 8, FA TABLET GT SCH (21:10)
[2019-07-25] MEDS: FERROUS SULFATE 330 MG/7.5 ML UDC- FOR SA ONLY GT SCH (21:10)
[2019-07-25] MEDS: ADAPALENE 0.3% TP SCH (21:11)
[2019-07-25] MEDS: MELATONIN 5MG TABLET GT SCH (21:12)
[2019-07-25] MEDS: RANITIDINE 300 MG GT SCH (21:12)
[2019-07-25 22:39] VITALS: BP 149/100
[2019-07-25 22:40] VITALS: BP 90/65
[2019-07-26] MEDS: CALCIUM CARBONATE 500 MG TAB.CHEW GT SCH ×2 (05:16→17:30)
[2019-07-26] MEDS: hydrALAZINE HCL 10 MG TABLET GT SCH ×3 (05:16→22:00)
[2019-07-26] MEDS: JEVITY 1.2 1000 ML LIQUID GT PRN (06:00)
[2019-07-26] MEDS: levETIRAcetam 500 MG/5 ML LIQUID UDC GT SCH ×2 (08:52→20:22)
[2019-07-26] MEDS: LACOSAMIDE 100 MG/10 ML UDC GT SCH ×2 (08:52→20:22)
[2019-07-26] MEDS: ACIDOPHILUS/BULGARICUS CHEW TAB GT SCH ×2 (08:53→20:22)
[2019-07-26] MEDS: METOPROLOL TARTRATE 50 MG TABLET GT SCH ×2 (08:55→20:22)
[2019-07-26] MEDS: AMLODIPINE 10 MG TABLET GT SCH (08:55)
[2019-07-26] MEDS: COD LIVER OIL/ZINC OXIDE OINT 113 GM TUBE TP SCH ×2 (08:56→20:22)
[2019-07-26] MEDS: NUTRISOURCE FIBER 4 GM PACKET GT SCH (08:56)
[2019-07-26] MEDS: CLINDAMYCIN TP SCH (08:57)
[2019-07-26] MEDS: NEOMY/BACITRA/POLYMYXIN B OINT UD PACKET TP SCH ×2 (08:57→20:22)
[2019-07-26] MEDS: HYDROGEN PEROXIDE 3% 118 ML BOTTLE TOP SCH ×2 (09:00→21:45)
[2019-07-26] MEDS: HEPARIN SODIUM,PORCINE 5,000 UNITS/ML VIAL SQ SCH ×2 (09:01→21:08)
[2019-07-26 11:42] VITALS: BP 103/67
--- NOTE | 2019-07-26 12:30 | NUR ---
[facility] YUAN RODRIGUEZ MET WITH PT'S MOTHER AND ASSESSED PT. WITH PT'S MOTHER PRESENT AND WITH NO COMMENTS AT THIS TIME.
[2019-07-26] MEDS: MELATONIN 5MG TABLET GT SCH (20:22)
[2019-07-26] MEDS: ADAPALENE 0.3% TP SCH (20:22)
[2019-07-26] MEDS: FERROUS SULFATE 330 MG/7.5 ML UDC- FOR SA ONLY GT SCH (20:22)
[2019-07-26] MEDS: RANITIDINE 300 MG GT SCH (20:22)
[2019-07-26] MEDS: MULTIVIT, IRON, MIN NO. 8, FA TABLET GT SCH (20:22)
[2019-07-26 22:12] VITALS: BP 139/84
[2019-07-27] MEDS: hydrALAZINE HCL 10 MG TABLET GT SCH ×3 (05:23→22:00)
[2019-07-27] MEDS: CALCIUM CARBONATE 500 MG TAB.CHEW GT SCH ×2 (05:23→18:00)
[2019-07-27 06:33] VITALS: BP 105/59
[2019-07-27] MEDS: LACOSAMIDE 100 MG/10 ML UDC GT SCH ×2 (08:12→20:00)
[2019-07-27] MEDS: levETIRAcetam 500 MG/5 ML LIQUID UDC GT SCH ×2 (08:12→20:00)
[2019-07-27] MEDS: ACIDOPHILUS/BULGARICUS CHEW TAB GT SCH ×2 (08:13→20:00)
[2019-07-27] MEDS: METOPROLOL TARTRATE 50 MG TABLET GT SCH ×2 (08:14→20:00)
[2019-07-27] MEDS: COD LIVER OIL/ZINC OXIDE OINT 113 GM TUBE TP SCH ×2 (08:14→20:00)
[2019-07-27] MEDS: AMLODIPINE 10 MG TABLET GT SCH (08:14)
[2019-07-27] MEDS: NUTRISOURCE FIBER 4 GM PACKET GT SCH (08:14)
[2019-07-27] MEDS: CLINDAMYCIN TP SCH (08:15)
[2019-07-27] MEDS: NEOMY/BACITRA/POLYMYXIN B OINT UD PACKET TP SCH ×2 (08:15→20:01)
[2019-07-27] MEDS: HEPARIN SODIUM,PORCINE 5,000 UNITS/ML VIAL SQ SCH ×2 (08:21→20:18)
[2019-07-27] MEDS: HYDROGEN PEROXIDE 3% 118 ML BOTTLE TOP SCH ×2 (09:01→20:41)
[2019-07-27 11:48] VITALS: BP 99/51
[2019-07-27] MEDS: JEVITY 1.2 1000 ML LIQUID GT PRN (13:14)
--- NOTE | 2019-07-27 19:10 | NUR ---
PER PT'S MOTHER [facility] VEGETABLE I FARMWORKER AYLIN LEFT AT THIS TIME AND NO COMMENTS AT THIS TIME (KEPT DOOR CLOSED)
[2019-07-27] MEDS: ADAPALENE 0.3% TP SCH (20:00)
[2019-07-27] MEDS: MELATONIN 5MG TABLET GT SCH (20:00)
[2019-07-27] MEDS: RANITIDINE 300 MG GT SCH (20:00)
[2019-07-27] MEDS: MULTIVIT, IRON, MIN NO. 8, FA TABLET GT SCH (20:00)
[2019-07-27] MEDS: FERROUS SULFATE 330 MG/7.5 ML UDC- FOR SA ONLY GT SCH (20:00)
[2019-07-27 22:08] VITALS: BP 134/70
[2019-07-28] MEDS: CALCIUM CARBONATE 500 MG TAB.CHEW GT SCH ×2 (05:57→17:40)
[2019-07-28] MEDS: hydrALAZINE HCL 10 MG TABLET GT SCH ×3 (05:57→22:00)
[2019-07-28] MEDS: JEVITY 1.2 1000 ML LIQUID GT PRN (06:49)
[2019-07-28 08:00] VITALS: BP 107/60
[2019-07-28] MEDS: LACOSAMIDE 100 MG/10 ML UDC GT SCH ×2 (08:28→20:04)
[2019-07-28] MEDS: levETIRAcetam 500 MG/5 ML LIQUID UDC GT SCH ×2 (08:28→20:04)
[2019-07-28] MEDS: ACIDOPHILUS/BULGARICUS CHEW TAB GT SCH ×2 (08:30→20:05)
[2019-07-28] MEDS: METOPROLOL TARTRATE 50 MG TABLET GT SCH ×2 (08:31→20:08)
[2019-07-28] MEDS: NUTRISOURCE FIBER 4 GM PACKET GT SCH (08:32)
[2019-07-28] MEDS: AMLODIPINE 10 MG TABLET GT SCH (08:32)
[2019-07-28] MEDS: HEPARIN SODIUM,PORCINE 5,000 UNITS/ML VIAL SQ SCH ×2 (08:33→20:04)
[2019-07-28] MEDS: COD LIVER OIL/ZINC OXIDE OINT 113 GM TUBE TP SCH ×2 (08:33→20:07)
[2019-07-28] MEDS: NEOMY/BACITRA/POLYMYXIN B OINT UD PACKET TP SCH ×2 (08:34→20:07)
[2019-07-28] MEDS: CLINDAMYCIN TP SCH (08:34)
[2019-07-28] MEDS: HYDROGEN PEROXIDE 3% 118 ML BOTTLE TOP SCH ×2 (09:00→21:26)
--- NOTE | 2019-07-28 11:00 | NUR ---
HUYEN BROWN WAS NOTIFIED RE:CANCELATION OF APPOINTMENT AT [facility].
--- NOTE | 2019-07-28 11:23 | NUR ---
8:55am: SAPNA received a phone call from Prashanth Alvarenga at [facility], who had 2 questions for this SW regarding patient's scheduled clinical trial for today. Prashanth asked if patient's g-tube feeding had been turned off, and SAPNA checked in with patient's nurse HUYEN Crook regarding patient's feeding status. Ambreen informed this SW that patient's feeding has been turned off, per written instructions provided by [facility]. SW then informed Prashanth that the feeding was turned off. Prashanth's second question was whether patient's mother had conservatorship or POA over the patient, and SAPNA informed Prashanth that patient's mother did not. SAPNA informed Prashanth that had provided patient's mother with resources on conservatorship months ago (upon admission), but that patient's mother had not had the chance to apply for conservatorship yet. Prashanth stated that [facility] requires proof of legal representation in order to allow for patient's mother to sign all admission paperwork. Prashanth stated he was going to speak with his colleague about whether there was any way of getting around this requirement, and would then get back to this SW. SAPNA agreed.
--- NOTE | 2019-07-28 11:30 | NUR ---
10:09am: SAPNA received a call from Dr. Yoder at [facility], the lead researcher for the clinical trial at [facility] that patient was scheduled to participate in today. Dr. Yoder once again informed this SW that [facility] would not be able to admit the patient today, not proceed with the clinical research study today, if patient's mother did not have legal rights to make medical decision for the patient (i.e. Advance Directive, Conservatorship). SAPNA informed Dr. Yoder that patient's mother does not have conservatorship rights over the patient, however the mother is the responsible family member. SAPNA then asked Dr. Yoder why this issue was not brought up during the patient's initial assessment back in May. Dr. Yoder apologized for this oversight. SAPNA informed Dr. Yoder that the conservatorship process can take a few months, and Dr. Yoder expressed understanding and regret that the clinical research study would have to be postponed until after patient's mother has proof of conservatorship. SAPNA asked Dr. Yoder if he or his department can call patient's mother and notify her of this development. Dr. Yoder expressed agreement and stated that his department would contact patient's mother to inform her.
--- NOTE | 2019-07-28 11:47 | NUR ---
10:26pm: SAPNA received a phone call from Dr. Dawson at [facility]. Dr. Dawson apologized for the oversight pertaining to not having discussed the requirement for conservatorship in order to proceed with the clinical trial. SAPNA once again asked Dr. Dawson why this issue was not discussed during the initial assessment back in May. Dr. Dawson expressed regret. SAPNA stated that conservatorship can take several months to process, and Dr. Dawson stated that unfortunately [facility] requires proof of legal rights over health care decision making, and therefore the clinical research study would have to be postponed until patient's mother becomes the legal decision maker. Dr. Dawson stated that she will be the one to contact patient's mother Abdoul to let her know that they could not proceed with the clinical research study today.
--- NOTE | 2019-07-28 11:56 | NUR ---
11:10am: Patient's mother Abdoul arrived to this SW's office, presenting very upset, throwing her bags onto the chairs in this SW's office and demanding to speak with management because she had just received a phone call from [facility] and was informed that the clinical research study at [facility] that patient was scheduled to go to today had been cancelled due to patient's mother not having POA or conservatorship rights. SW validated Abdoul's feelings, and Abdoul continued to speak in a very loud and angry tone expressing frustration and disappointment. On a couple of occasions, Abdoul used profanity, however SAPNA was able to de-escalate Abdoul by validating and acknowledging her feelings. SAPNA then re-visited the discussion regarding conservatorship that this SW had had with Abdoul soon after patient's admission to this Subacute unit, and asked Abdoul if she still still had the resources and informational material that this SW had provided her. Marileedevin expressed not being sure, and therefore this SW once again provided Abdoul with the phone number to [employer] . Abdoul called them immediately from her cell phone, while still in this SW's office and left them a voicemail message. SAPNA then printed the conservatorship questionnaire from the [employer] website and provided it to Abdoul, instructing her to complete it. SAPNA also found on [email or web address]'s website the schedule for Self-Help Conservatorship Clinics, and printed out the date/time/location and instructions of the next clinic for Abdoul: Self-Help Conservatorship Clinic FIRST TIME VISITORS ONLY August 04, 2019, 9:15 am - 12:15 pm [facility] [address] [address] [email or web address] Self-Help Conservatorships are for New Visitors only. Check-in begins at 9:15 am. Space is limited and is available on a first-come, first-served basis. Clinics are subject to change due to unforeseen events which may arise during the year. Please call [phone] with any questions. Abdoul took all this information from this and stated she will work on the questionnaire and will visit the clinic on August 03 (information listed above). Marilees stated that she will also wait to hear back from Aileen Fischer in response to the voicemail message that Abdoul left them.
--- NOTE | 2019-07-28 12:00 | NUR ---
NEW ORDER CARRIED OUT FOR FIRE EQUIPMENT OPERATOR CONSULT TO F/U FACIAL RASH ACNE LIKE.
--- NOTE | 2019-07-28 12:14 | NUR ---
10:35am: SW informed rn discharge Norma and SOLAR ELECTRIC INSTALLER Ambreen that the patient's [facility] clinical research study scheduled for today has been cancelled due to patient's mother not having POA or conservatorship rights.
--- NOTE | 2019-07-28 12:15 | NUR ---
10:10am: SAPNA informed Subacute Director German Liu that SAPNA received a call from [facility] stating that patient's clinical research study scheduled for today, July 27 and for August 03, has been cancelled due to patient's mother not having POA and/or conservatorship rights, and that they would reschedule once patient's mother obtains conservatorship rights.
--- NOTE | 2019-07-28 17:17 | NUR ---
1:38pm: This SW received a call from Dr. Pollock regarding patients medical decision making rights. This SW and Dr. Pollock discussed how patients [facility] clinical research study was cancelled this morning because patients mother Abdoul does not have any document proving she has medical decision-making rights for the patient. SW informed Dr. Pollock that this SW had previously provided Abdoul with information on how to apply for conservatorship (see SS notes from earlier today), and did so again today, because patient does not have capacity to produce an Advance Health Care Directive and therefore the responsible green party would need to apply for conservatorship. Dr. Pollock then stated that he believes there is a form that he as a physician can fill out stating that patient is unable to make his/her own decisions, and patients mother can then apply to be the patients medical decision maker. SW stated not being aware of any such form, and that SW would need to consult with Director Germaine Gonzalez regarding this. Dr. Pollock expressed agreement and asked SW to let him know what she finds out. SW expressed agreement.
--- NOTE | 2019-07-28 17:20 | NUR ---
2:02pm: SW spoke with Directory Germaine Gonzalez regarding the conversation this SW had with Dr. Pollock regarding patients mother Maritess applying to become patients legal decision maker. Germaine stated that she too was not aware of the form Dr. Pollock was describing, and agreed with [facility] recommendations for patients mother Maritess to apply for conservatorship. However, Germaine asked this SW to once again obtain further clarification from Dr. Pollock, which this SW agreed she would do.
--- NOTE | 2019-07-28 17:20 | NUR ---
2:40pm: SAPNA informed by nursing staff that patients mother was asking to speak with his SW. SAPNA went to patients room and met with patients mother Abdoul. Abdoul wanted to discuss her conversation with Dr. Pollock, and whether this SW had also spoken with Dr. Pollock. SAPNA asked Abdoul what Dr. Plolock had discussed with her, and Abdoul stated that Dr. Pollock had stated that there is a form that he as a physician can fill out and sign, explaining patients current medical condition and stating that patient does not have capacity to make her own decisions, after which Abdoul can then obtain medical decision making rights for the patient. Abdoul also stated that she had spoken with Dr. Dawson at [facility], and Dr. Dawson had expressed willingness to accept any legal proof of medical decision making. SAPNA responded to Sarahroman stating that Dr. Pollock had explained the same thing to this SW, but that SAPNA had told Dr. Pollock that she was not aware of this type of a form, which is why SAPNA had provided guidance to Sarahroman regarding conservatorship and that SAPNA had also consulted with Director Germaine Gonzalez who had also not heard of the form and process that Dr. Pollock was describing. SAPNA then went on to explain to patients mother Abdoul that Abdoul can work with Dr. Pollock and [facility] on this process, since the need for this form was specifically for [facility] purposes. At this time, Marileedevin began accusing this SW of being an obstacle for her. SAPNA tried to once again explain to Abdoul that this SW was not being an obstacle, but that SAPNA was letting Marileedevin know that if [facility] was accepting what Dr. Pollock was stating he could assist Sarahsteves with, that Abdoul should go ahead and work with Dr. Pollock, all while trying to educate Marilees in the importance of still applying for conservatorship in order to be able to manage any medical/personal needs that may arise in the future. Willard tone began to get loud, continued to accuse this SW of being an obstacle, and when SAPNA tried explaining for the 3rd and 4th time, Abdoul then began to accuse both this SW and Director of being an obstacle. Abdoul then began to bring up staff disagreements from the past, presenting with a mora affect, speaking in a loud voice, and being argumentative and accusatory. At this point, this SW informed Abdoul that SAPNA was focusing on the current issue and that SAPNA would be calling Dr. Pollock for further clarification. Abdoul asked this SW if she can also be present during the phone call, and SAPNA expressed agreement. SAPNA ended the conversation by stating that SAPNA will contact Dr. Pollock, and that as soon as Dr. Pollock was available to talk, that SAPNA would let Abduol know and Abdoul could then join in on the conference call. SAPNA left the room and headed back to the office. SAPNA was not aware that Abdoul was following this SW to her office, because as soon as this SW sat down at her desk, Abdoul entered this [facility] office and with a mora face and loud voice stated can you call Dr. Pollock now?! SAPNA responded I will text him now and ask him when he is available to have a phone conference with us.when he responds, I will let you know. Abdoul then stated how will I know when hes available. SAPNA stated as soon as he responds that he is available, I will come and let you know so that the both of us can call him back. Abdoul stated fine and left this [facility] office.
--- NOTE | 2019-07-28 17:21 | NUR ---
At 3:15pm, SAPNA texted Dr. Pollock, asking if he was available for a phone conference with this SW and patients mother Abdoul. At 3:18pm, Dr. Pollock responded via text asking when. SW immediately responded to Dr. Pollock (3:18pm), stating that Abdoul wanted to speak with him immediately. At 3:30pm, Dr. Pollock responded via text, stating ok. SAPNA went to the patients room, and asked Abdoul to join SAPNA in [facility] office, since Dr. Pollock had responded stating he was available. Abdoul and SAPNA came back to [facility] office, and at 3:40pm, SW called Dr. Pollock. No answer. SAPNA texted Dr. Pollock at 3:40pm, stating trying to call you. At 3:43pm, SAPNA once again tried calling Dr. Pollock, but again no answer. At 3:50pm, SAPNA tried calling Dr. Pollock for the third time, but again no answer. Abdoul was present in [facility] office during all 3 phone call attempts, and phone calls were made via speaker phone, allowing Abdoul to hear who SAPNA was calling. All 3 phone calls went to voicemail, and all 3 times SAPNA and Abdoul heard Dr. Marshall outgoing voicemail message, confirming attempts to contact Dr. Pollock. No voicemail message was left. At this point, SAPNA informed Abdoul that SAPNA would notify Abdoul once SAPNA hears back from Dr. Pollock. Abdoul expressed agreement and Abdoul left this [facility] office. At 4:15pm, SAPNA texted Dr. Pollock again, attempting contact, but once again SW was unsuccessful. SAPNA to follow-up.
--- NOTE | 2019-07-28 17:21 | NUR ---
3:10pm: SAPNA called the [facility] office [phone] and left a message for Neena, asking for a call back to clarify about the form and process that Dr. Pollock had suggested.
[2019-07-28] MEDS: FERROUS SULFATE 330 MG/7.5 ML UDC- FOR SA ONLY GT SCH (20:05)
[2019-07-28] MEDS: MULTIVIT, IRON, MIN NO. 8, FA TABLET GT SCH (20:06)
[2019-07-28] MEDS: MELATONIN 5MG TABLET GT SCH (20:06)
[2019-07-28] MEDS: RANITIDINE 300 MG GT SCH (20:06)
[2019-07-28] MEDS: ADAPALENE 0.3% TP SCH (20:07)
[2019-07-28 20:22] VITALS: BP 143/80
[2019-07-29] MEDS: JEVITY 1.2 1000 ML LIQUID GT PRN ×2 (03:47→18:17)
[2019-07-29] MEDS: hydrALAZINE HCL 10 MG TABLET GT SCH ×4 (05:59→22:00)
[2019-07-29] MEDS: CALCIUM CARBONATE 500 MG TAB.CHEW GT SCH ×2 (06:01→18:11)
[2019-07-29 08:00] VITALS: BP 110/75
[2019-07-29] MEDS: LACOSAMIDE 100 MG/10 ML UDC GT SCH ×2 (08:02→20:01)
[2019-07-29] MEDS: levETIRAcetam 500 MG/5 ML LIQUID UDC GT SCH ×2 (08:02→20:01)
[2019-07-29] MEDS: COD LIVER OIL/ZINC OXIDE OINT 113 GM TUBE TP SCH ×2 (08:25→20:04)
[2019-07-29] MEDS: CLINDAMYCIN TP SCH (08:28)
[2019-07-29] MEDS: NEOMY/BACITRA/POLYMYXIN B OINT UD PACKET TP SCH ×2 (08:30→20:04)
[2019-07-29] MEDS: ACIDOPHILUS/BULGARICUS CHEW TAB GT SCH ×2 (08:33→20:01)
[2019-07-29] MEDS: METOPROLOL TARTRATE 50 MG TABLET GT SCH ×2 (08:34→20:02)
[2019-07-29] MEDS: AMLODIPINE 10 MG TABLET GT SCH (08:35)
[2019-07-29] MEDS: NUTRISOURCE FIBER 4 GM PACKET GT SCH (08:36)
[2019-07-29] MEDS: HEPARIN SODIUM,PORCINE 5,000 UNITS/ML VIAL SQ SCH ×2 (08:39→20:03)
[2019-07-29] MEDS: HYDROGEN PEROXIDE 3% 118 ML BOTTLE TOP SCH ×2 (09:00→21:00)
--- NOTE | 2019-07-29 12:01 | NUR ---
PT'S MOTHER MILI CALLED AT THIS TIME AND AWARE THAT PT. IS HAVING ESCALATING EPISODE OF PERSPIRATION NOTED ON HER FOREHEAD AND WITH FACIAL GRIMMACING ,NURSE OFFERED TO ADM TYLENOL D/ MUSCLE TENSION INCREASING AND STARTING TO CLINCH TEETH BUT SHE SAID "NO ,PLS JUST TO MAKE SURE DIAPER IS NOT WET AND REMOVE BIG PILLOW BETWEEN LEGS BECAUSE THAT BOTHERS HER AND I'LL BE THERE SOON TO GIVE LEG MASSAGE" ANDNURSE CHECK DISPER AND NOTED CLEAN AND DRY AND REMOVED PILLOW BETWEEN HER LEGS REQUESTED.
--- NOTE | 2019-07-29 12:21 | NUR ---
SPLINTS REMOVED FROM UPPER EXT. AT THIS TIME AND ALSO AT THIS TIME URINATED A LARGE AMOUNT.PT. WAS CLEANED ,DRY AND REPOSITIONED AND WILL CONT TO MONITOR FOR COMFORT.
--- NOTE | 2019-07-29 12:26 | NUR ---
PT. OBSERVED VISIBLE BETTER LESS MUSCLE TENSION AND LESS FOREHEAD SWEAT NOTED.
--- NOTE | 2019-07-29 14:30 | NUR ---
FREQUENT VISUAL CHECKS DONE AND REMAINS COMFORTABLE ,RELAXED ,AWAKE AND WITH EYES OPEN AND NO PERSPIRATION ON FOREHEAD NOTED.
--- NOTE | 2019-07-29 18:45 | NUR ---
FOUND PT'S MOTHER CLEANING THE P MIST TUBING WITHOUT GLOVES, ASKED HER WHY SHE DIDN'T ASKED THE RT TO DO IT, SHE STATED " I DIDN'T SEE ANY RT FOR A WHILE," BUT I TOLD HER I SAW THE NURSE HERE NOT TO LONG AGO ,WHY YOU DIDN'T ASKED HER TO DO IT AND SHE REPEATED THE SAME ABOUT THE RT, EXPLAINED TO THE MOTHER SHE NEEDS TO CALL THE RT O THE NURSE TO CLEAN THE TUBES ,EDUCATION GIVEN REGARDING HANDWASHING AND USE OF GLOVES ,PT'S MOTHER IRENE UNDERSTAND AND AGREED.
--- NOTE | 2019-07-29 19:28 | NUR ---
PT'S MOTHER CALLED NURSE AND CH. NURSE TO LET THEM KNOW THAT SHE NOTED DISCOLORATIONS ON ABDOMINAL AREA FROM SITE HEPARIN INJECTIONS WHILE SHE WAS GIVING MASSAGES AND ALSO NOTED SOME INDURATION PICTURE TAKEN AND WILL BE F/U BY AND ENDORSED TO NOC. SHIFT .PT.IS SKINNY WITH VERY LIMITED FAT TISSUE ON ABDOMINAL AREA.PT'S MOTHER WAS INSTRUCTED TO DO NOT MASSAGE AREA AND IN AGREEMENT.
[2019-07-29 20:00] VITALS: BP 114/71
[2019-07-29] MEDS: FERROUS SULFATE 330 MG/7.5 ML UDC- FOR SA ONLY GT SCH (20:01)
[2019-07-29] MEDS: MULTIVIT, IRON, MIN NO. 8, FA TABLET GT SCH (20:02)
[2019-07-29] MEDS: RANITIDINE 300 MG GT SCH (20:02)
[2019-07-29] MEDS: MELATONIN 5MG TABLET GT SCH (20:02)
[2019-07-29] MEDS: ADAPALENE 0.3% TP SCH (20:04)
[2019-07-30] MEDS: hydrALAZINE HCL 10 MG TABLET GT SCH ×3 (06:00→22:00)
[2019-07-30] MEDS: CALCIUM CARBONATE 500 MG TAB.CHEW GT SCH ×2 (06:02→18:27)
--- NOTE | 2019-07-30 07:30 | NUR ---
WAS REPORTED BY THE NIGHT NURSE MILI SHANE PT'S MOTHER NOTED THE DISCOLORATION AND INDURATION ON THE ABDOMINAL SITE ( FOR HEPARIN INJECTIONS)SINCE SUNDAY ,AND SHE ALREADY REPORTED TO THEN.
[2019-07-30 08:00] VITALS: BP 105/55
[2019-07-30] MEDS: LACOSAMIDE 100 MG/10 ML UDC GT SCH ×2 (08:27→20:36)
[2019-07-30] MEDS: levETIRAcetam 500 MG/5 ML LIQUID UDC GT SCH ×2 (08:27→20:36)
[2019-07-30] MEDS: METOPROLOL TARTRATE 50 MG TABLET GT SCH ×2 (08:28→20:37)
[2019-07-30] MEDS: ACIDOPHILUS/BULGARICUS CHEW TAB GT SCH ×2 (08:28→20:36)
[2019-07-30] MEDS: NUTRISOURCE FIBER 4 GM PACKET GT SCH (08:28)
[2019-07-30] MEDS: AMLODIPINE 10 MG TABLET GT SCH (08:28)
[2019-07-30] MEDS: HEPARIN SODIUM,PORCINE 5,000 UNITS/ML VIAL SQ SCH ×2 (08:30→21:00)
[2019-07-30] MEDS: CLINDAMYCIN TP SCH (08:31)
[2019-07-30] MEDS: COD LIVER OIL/ZINC OXIDE OINT 113 GM TUBE TP SCH ×2 (08:31→20:37)
[2019-07-30] MEDS: NEOMY/BACITRA/POLYMYXIN B OINT UD PACKET TP SCH ×2 (08:31→20:37)
[2019-07-30] MEDS: NEOMY/BACITRAC/POLYMI OINT 28.35 GM TUBE TOP SCH ×2 (08:31→20:37)
[2019-07-30] MEDS: HYDROGEN PEROXIDE 3% 118 ML BOTTLE TOP SCH ×2 (09:17→20:42)
--- NOTE | 2019-07-30 10:43 | NUR ---
Dermatology order faxed to Dr. Cabrera (fax # [phone]; tel # [phone]). service order expediter Miriam informed that dermatology order has been faxed.
--- NOTE | 2019-07-30 15:30 | NUR ---
Seen and examined by Dr Cabrera supervisor hydrochloric area ,for facial rashes with new orders noted.
--- NOTE | 2019-07-30 16:30 | NUR ---
SW received a voicemail message from Nela Andrews at the [facility] Ombudsman's office [phone] x [phone]. Tali stated that she was responding to the voicemail message that this SW had left for the Ombudsman on July 27. At 2:39pm, this SW called Tali back, but was unable to connect with her, and therefore SAPNA left Tali a voicemail message. At 2:53pm, SW received another voicemail message from Tali, who was responding to this SW's last call. At 3:04pm, this SW called Tali again, once again unable to connect with her, and left another voicemail message. At 3:09pm, Tali returned this SW's call and this SW and Tali were able to connect. SAPNA also invited Manager Military Nick Goldberg to join the phone call. This SW, Nick Goldberg, and Tali spoke via speaker phone. The initial SOC-341 submitted by this SW on 07/15/2019 was discussed. Tali confirmed receipt and stated that the assigned Ombudsman on this case was Maria A at the [employer] office ([phone]). Tali stated that she was going to tell Maria A that she established contact with this SW, however Tali was not able to provide this SW and Manager Military Nick a time frame of when Maria A would be able to come out to do the investigation. Tali advised this SW to also submit the SOC-341 to [facility] via fax at [phone], which SAPNA will do. SAPNA also stated that she was recently informed by a physician that there may be a quicker way for patient to obtain medical decision making rights over the patient. SAPNA wanted to clarify the options of how a family member or responsible libertarian can obtain medical decision making rights, since SAPNA stated that she is only aware of Advance Health Care Directives and Conservatorship. Given that patient is current non-communicative and unable to follow commands or express her own wishes, SAPNA asked Tali if there was any other option besides applying for conservatorship, and Tali stated that there was not. Tali stated that the only 2 options are an Advance Directive and Conservatorship, and since patient's current medical condition does not qualify her to complete an Advance Directive, that the only other option was Conservatorship. SAPNA and Manager Military Nick Goldberg thanked Tali for her time and advise.
--- NOTE | 2019-07-30 17:17 | NUR ---
5:03pm: Per advisement from Nela Andrews at [facility] Nela's office, this SW faxed the SOC 341 to [facility] at [phone].
--- NOTE | 2019-07-30 19:13 | NUR ---
Noted pt's room door is close again,i requested the mother not to close the room door completely,she stated "I will keep the door close ,I have permission from [facility] infection disease,because i don't want to see any hamper in front of my door,noted the pt's mother is massaging ,stretching and bending the daughter's legs,and arm without gloves ,education provided,regarding the uses of the gloves,washing hands,and to be careful in stretching and bending the pt's stiff legs.
--- NOTE | 2019-07-30 19:15 | NUR ---
Endorse to incoming charge nurse ,pt's mother can't buy Cetaphil and she is requesting to change to a different moisturizer,[facility] carry Hilda,will inform Dr Cabrera.
--- NOTE | 2019-07-30 19:20 | NUR ---
Mother call me to the room ,she wants me to see her daughter skin,because she has rashes on the back of the legs buttocks and l upper buttocks,I told her we will check as soon we finished the change of shift report.
--- NOTE | 2019-07-30 19:30 | NUR ---
Went to the room with the professor of journalism charge nurse and we noticed the rashes on the back of legs ,buttocks and l upper butt,appear to be an allergic reaction ,asked the mom what kind of lotion she was using to massage the daughter legs,and she was upset ,telling us ,"are you telling me is the cream i used to massage my daughter,is not my cream"is something else ,keep repeating what it is?night nurse took pictures and she will follow up .
[2019-07-30 20:00] VITALS: BP 108/66
--- NOTE | 2019-07-30 20:30 | NUR ---
WENT TO PT'S ROOM PER PT'S MOTHER SHOW NURSE ON PT'S BODY RASHES ON HER BACK LEG AND BUTTOCKS PICTURE WAS TAKE . WAS PAGED REGRADING PT HAS ALLERGIC REACTION ON HER BODY.AWAITING FOR CALL BACK.
[2019-07-30] MEDS: FERROUS SULFATE 330 MG/7.5 ML UDC- FOR SA ONLY GT SCH (20:36)
[2019-07-30] MEDS: ADAPALENE 0.3% TP SCH (20:37)
[2019-07-30] MEDS: MELATONIN 5MG TABLET GT SCH (20:37)
[2019-07-30] MEDS: RANITIDINE 300 MG GT SCH (20:37)
[2019-07-30] MEDS: MULTIVIT, IRON, MIN NO. 8, FA TABLET GT SCH (20:37)
--- NOTE | 2019-07-30 21:00 | NUR ---
DR. SPENCER CALLED BACK WITH NEW ORDERED. CONTINUE MONITOR ALLERGIC REACTION.AND ALSO INFORM PT'S MOTHER DO NOT UES ANY OIL OR LOTION TO PT KEEP CLEAN AND DRY&COMFORTABLE.
[2019-07-30 22:16] VITALS: BP 106/65
[2019-07-31] MEDS: hydrALAZINE HCL 10 MG TABLET GT SCH ×3 (05:17→21:58)
[2019-07-31] MEDS: CALCIUM CARBONATE 500 MG TAB.CHEW GT SCH ×2 (05:17→17:55)
[2019-07-31 05:19] VITALS: BP 118/67
--- NOTE | 2019-07-31 05:39 | NUR ---
PT AWAKE RESPONSIVE NO S/S OF PAIN.BODY ASSESSMENT DONE BY NURSE PT ALL RASHES WAS GONE AND NO S/S OF ALLERGIC REACTION CONTINUE MONITOR FOR ALLERGIC REACTION KEEP CLEAN AND DRY .
[2019-07-31] MEDS: JEVITY 1.2 1000 ML LIQUID GT PRN ×2 (06:00→21:58)
[2019-07-31] MEDS: levETIRAcetam 500 MG/5 ML LIQUID UDC GT SCH ×2 (08:53→20:24)
[2019-07-31] MEDS: LACOSAMIDE 100 MG/10 ML UDC GT SCH ×2 (08:53→20:24)
[2019-07-31] MEDS: ACIDOPHILUS/BULGARICUS CHEW TAB GT SCH ×2 (08:53→21:26)
[2019-07-31] MEDS: AMLODIPINE 10 MG TABLET GT SCH (08:54)
[2019-07-31] MEDS: NUTRISOURCE FIBER 4 GM PACKET GT SCH (08:54)
[2019-07-31] MEDS: HEPARIN SODIUM,PORCINE 5,000 UNITS/ML VIAL SQ SCH ×2 (08:54→21:47)
[2019-07-31] MEDS: HYDROGEN PEROXIDE 3% 118 ML BOTTLE TOP SCH ×2 (08:54→21:09)
[2019-07-31] MEDS: METOPROLOL TARTRATE 50 MG TABLET GT SCH ×2 (08:54→21:00)
[2019-07-31] MEDS: CLINDAMYCIN TP SCH (08:55)
[2019-07-31] MEDS: COD LIVER OIL/ZINC OXIDE OINT 113 GM TUBE TP SCH ×2 (08:55→21:27)
[2019-07-31] MEDS: NEOMY/BACITRAC/POLYMI OINT 28.35 GM TUBE TOP SCH ×2 (08:55→21:27)
--- NOTE | 2019-07-31 11:20 | NUR ---
10:50am: SAPNA received a voicemail message from Tacos at the [facility] offices [phone] in response to the SOC-341 that SAPNA faxed to [facility] yesterday (see SS note dated 07/29 at 5:30pm). SAPNA called Tacos back. Tacos confirmed patient's current location with this SW, and stated that she would now forward this report to the Licensing Unit. SAPNA expressed understanding and agreement.
--- NOTE | 2019-07-31 16:34 | NUR ---
Per patient's mother Marilees's request, this faxed patient's Request for Temporary Medical Exemption From Plan Enrollment Form, the Doctor's Certification for Medical Exemption form, along with supportive physician's notes, to [facility] (fax # [phone]). A total of 76 pages were faxed. The entire 76 page packet, along with the fax confirmation transmittal form was returned to patient's mother Abdoul. A copy of all the forms that were faxed, was filed in patient's file in 's office.
[2019-07-31 20:00] VITALS: BP 96/64
[2019-07-31] MEDS: FERROUS SULFATE 330 MG/7.5 ML UDC- FOR SA ONLY GT SCH (21:26)
[2019-07-31] MEDS: MELATONIN 5MG TABLET GT SCH (21:27)
[2019-07-31] MEDS: MULTIVIT, IRON, MIN NO. 8, FA TABLET GT SCH (21:27)
[2019-07-31] MEDS: RANITIDINE 300 MG GT SCH (21:27)
[2019-07-31] MEDS: ADAPALENE 0.3% TP SCH (21:57)
[2019-08-01] MEDS: CALCIUM CARBONATE 500 MG TAB.CHEW GT SCH ×2 (05:28→18:06)
[2019-08-01] MEDS: hydrALAZINE HCL 10 MG TABLET GT SCH ×3 (05:28→22:09)
[2019-08-01 08:00] VITALS: BP 136/68
[2019-08-01] MEDS: LACOSAMIDE 100 MG/10 ML UDC GT SCH ×2 (08:23→20:02)
[2019-08-01] MEDS: levETIRAcetam 500 MG/5 ML LIQUID UDC GT SCH ×2 (08:23→20:02)
[2019-08-01] MEDS: NUTRISOURCE FIBER 4 GM PACKET GT SCH (08:24)
[2019-08-01] MEDS: AMLODIPINE 10 MG TABLET GT SCH (08:24)
[2019-08-01] MEDS: METOPROLOL TARTRATE 50 MG TABLET GT SCH ×2 (08:24→20:02)
[2019-08-01] MEDS: ACIDOPHILUS/BULGARICUS CHEW TAB GT SCH ×2 (08:24→20:02)
[2019-08-01] MEDS: COD LIVER OIL/ZINC OXIDE OINT 113 GM TUBE TP SCH ×2 (08:30→20:03)
[2019-08-01] MEDS: HEPARIN SODIUM,PORCINE 5,000 UNITS/ML VIAL SQ SCH ×2 (08:30→20:03)
[2019-08-01] MEDS: CLINDAMYCIN TP SCH (08:30)
[2019-08-01] MEDS: NEOMY/BACITRAC/POLYMI OINT 28.35 GM TUBE TOP SCH ×2 (08:30→20:03)
--- NOTE | 2019-08-01 08:50 | NUR ---
PT OBSERVED PERSPIRING ON FOREHEAD. COLD TOWEL PLACED ON FOREHEAD. PT IS AFEBRILE 97.6. TEETH GRINDING. PT IS ON ATIVAN PRN. PER MOTHER, BEFORE PRN MED ADMINISTRATION, MOTHER WANTS TO BE INFORMED FIRST PRIOR TO PRN MEDICATION. CHARGE NURSE SPOKE TO MOTHER REGARDING PT'S SYMPTOMS BUT REFUSED PRN MEDICATION. PT KEPT COMFORTABLE POSSIBLE. WILL CONTINUE TO OBSERVE PATIENT. WITHOUT RESPIRATORY DISTRESS.
[2019-08-01] MEDS: HYDROGEN PEROXIDE 3% 118 ML BOTTLE TOP SCH ×2 (09:30→21:57)
[2019-08-01] MEDS: JEVITY 1.2 1000 ML LIQUID GT PRN (14:23)
--- NOTE | 2019-08-01 19:11 | NUR ---
Morning Show Newscast Producer German Liu and plastic manager Ralph Rae met with patient's mother Abdoul and informed her that per CDC and [facility] decision to minimize the risk of subacute residents becoming sick with the COVID-19 virus, visitation to [facility] will be suspended, effective immediately, and until further notice.
[2019-08-01 20:00] VITALS: BP 140/90
[2019-08-01] MEDS: FERROUS SULFATE 330 MG/7.5 ML UDC- FOR SA ONLY GT SCH (20:02)
[2019-08-01] MEDS: MELATONIN 5MG TABLET GT SCH (20:02)
[2019-08-01] MEDS: MULTIVIT, IRON, MIN NO. 8, FA TABLET GT SCH (20:02)
[2019-08-01] MEDS: RANITIDINE 300 MG GT SCH (20:02)
[2019-08-01] MEDS: ADAPALENE 0.3% TP SCH (20:03)
[2019-08-02] MEDS: hydrALAZINE HCL 10 MG TABLET GT SCH ×3 (05:35→22:00)
[2019-08-02] MEDS: CALCIUM CARBONATE 500 MG TAB.CHEW GT SCH ×2 (05:35→17:25)
[2019-08-02 07:47] VITALS: BP 129/63
--- NOTE | 2019-08-02 08:00 | NUR ---
Pt received awake,with no respiratory distress,no increase secretions,afebrile temp 98.4,o2 sat 97%,no changes on condition.
[2019-08-02] MEDS: ACIDOPHILUS/BULGARICUS CHEW TAB GT SCH ×2 (08:59→20:04)
[2019-08-02] MEDS: levETIRAcetam 500 MG/5 ML LIQUID UDC GT SCH ×2 (08:59→20:04)
[2019-08-02] MEDS: LACOSAMIDE 100 MG/10 ML UDC GT SCH ×2 (08:59→20:04)
[2019-08-02] MEDS: METOPROLOL TARTRATE 50 MG TABLET GT SCH ×2 (09:00→20:05)
[2019-08-02] MEDS: AMLODIPINE 10 MG TABLET GT SCH (09:00)
[2019-08-02] MEDS: NEOMY/BACITRAC/POLYMI OINT 28.35 GM TUBE TOP SCH ×2 (09:01→20:38)
[2019-08-02] MEDS: CLINDAMYCIN TP SCH (09:01)
[2019-08-02] MEDS: NUTRISOURCE FIBER 4 GM PACKET GT SCH (09:01)
[2019-08-02] MEDS: HEPARIN SODIUM,PORCINE 5,000 UNITS/ML VIAL SQ SCH ×2 (09:01→20:03)
[2019-08-02] MEDS: COD LIVER OIL/ZINC OXIDE OINT 113 GM TUBE TP SCH ×2 (09:01→20:38)
[2019-08-02] MEDS: HYDROGEN PEROXIDE 3% 118 ML BOTTLE TOP SCH ×2 (09:37→21:00)
--- NOTE | 2019-08-02 18:52 | NUR ---
Patient stable, comfortable, spoke with Mother and notified of pt's condition.
[2019-08-02] MEDS: FERROUS SULFATE 330 MG/7.5 ML UDC- FOR SA ONLY GT SCH (20:04)
[2019-08-02 20:36] VITALS: BP 136/79
[2019-08-02] MEDS: RANITIDINE 300 MG GT SCH (20:37)
[2019-08-02] MEDS: MELATONIN 5MG TABLET GT SCH (20:37)
[2019-08-02] MEDS: MULTIVIT, IRON, MIN NO. 8, FA TABLET GT SCH (20:38)
[2019-08-02] MEDS: ADAPALENE 0.3% TP SCH (20:38)
--- NOTE | 2019-08-02 21:30 | NUR ---
Patient is sleeping, pulse is 101, temperature is 98.0 Fahrenheit, Trach is intact and patent, suctioned with pale yellow secretions, no respiratory distress noted, 02 sat @ 99% on 28% fi02, kept clean and comfortable, will continue monitor.
[2019-08-03] MEDS: JEVITY 1.2 1000 ML LIQUID GT PRN ×2 (01:20→18:32)
[2019-08-03] MEDS: ACETAMINOPHEN 650 MG/20 ML UDC- SA PATIENTS-PAIN ONLY GT PRN (01:33)
[2019-08-03] MEDS: CALCIUM CARBONATE 500 MG TAB.CHEW GT SCH ×2 (05:19→17:20)
[2019-08-03] MEDS: hydrALAZINE HCL 10 MG TABLET GT SCH ×3 (05:19→22:32)
--- NOTE | 2019-08-03 06:53 | NUR ---
patient is awake, no rashes/ papules on left and right buttock and left lateral buttocks, no signs of any respiratory distress, noted with increased secretions, suctioned more frequently, 02 sat @ 98%, kept clean and comfortable.
[2019-08-03] MEDS: levETIRAcetam 500 MG/5 ML LIQUID UDC GT SCH ×2 (08:00→20:06)
[2019-08-03] MEDS: LACOSAMIDE 100 MG/10 ML UDC GT SCH ×2 (08:00→20:06)
[2019-08-03 08:05] VITALS: BP 100/64
[2019-08-03] MEDS: AMLODIPINE 10 MG TABLET GT SCH (09:00)
[2019-08-03] MEDS: METOPROLOL TARTRATE 50 MG TABLET GT SCH ×2 (09:00→20:07)
[2019-08-03] MEDS: ACIDOPHILUS/BULGARICUS CHEW TAB GT SCH ×2 (09:01→20:06)
[2019-08-03] MEDS: NUTRISOURCE FIBER 4 GM PACKET GT SCH (09:02)
[2019-08-03] MEDS: NEOMY/BACITRAC/POLYMI OINT 28.35 GM TUBE TOP SCH ×2 (09:03→20:08)
[2019-08-03] MEDS: COD LIVER OIL/ZINC OXIDE OINT 113 GM TUBE TP SCH ×2 (09:03→20:10)
[2019-08-03] MEDS: CLINDAMYCIN TP SCH (09:03)
[2019-08-03] MEDS: HEPARIN SODIUM,PORCINE 5,000 UNITS/ML VIAL SQ SCH ×2 (09:03→20:07)
[2019-08-03] MEDS: HYDROGEN PEROXIDE 3% 118 ML BOTTLE TOP SCH ×2 (09:13→21:44)
--- NOTE | 2019-08-03 18:26 | NUR ---
Pt is afebrile temp 98 %, frequent oral and tracheal suction due to increase of secretions,Hr 91 at this time,o2 sat 100 %,no s/s of respiratory distress,on close observation,Ross call to verify the appointment to [facility] tomorrow at 12 noon,verified with Pt's mother Abdoul and social worker psychiatric Steven,The [facility] trial has been cancelled ,Ross,notify,transportation cancelled.
--- NOTE | 2019-08-03 19:43 | NUR ---
Noted a callus on the L lateral fifth toe and intra digital L great toe and 2nd toe,will f/u with doctor Sheila.
[2019-08-03] MEDS: FERROUS SULFATE 330 MG/7.5 ML UDC- FOR SA ONLY GT SCH (20:06)
[2019-08-03] MEDS: MULTIVIT, IRON, MIN NO. 8, FA TABLET GT SCH (20:07)
[2019-08-03] MEDS: RANITIDINE 300 MG GT SCH (20:07)
[2019-08-03] MEDS: MELATONIN 5MG TABLET GT SCH (20:07)
[2019-08-03] MEDS: ADAPALENE 0.3% TP SCH (20:10)
[2019-08-03 20:27] VITALS: BP 131/78
--- NOTE | 2019-08-03 22:08 | NUR ---
Afebrile, temperature is 98.6 Fahrenheit, trach is intact and patent, connected to vent, 02 sat is 98%, no respiratory distress noted, kept clean and comfortable. Addendum: 08/04/19 at 0023 by SINDHU DUPREE RN Clarification of above earlir notes: Patient is on t-piece and not on vent.
[2019-08-04] MEDS: CALCIUM CARBONATE 500 MG TAB.CHEW GT SCH ×2 (05:11→17:17)
[2019-08-04] MEDS: hydrALAZINE HCL 10 MG TABLET GT SCH ×3 (05:11→21:54)
--- NOTE | 2019-08-04 06:56 | NUR ---
Patient is asleep, suctioned with moderate pale yellow secretions, no respiratory distress noted, 02 sat@98%.
[2019-08-04 08:00] VITALS: BP 100/61
[2019-08-04] MEDS: levETIRAcetam 500 MG/5 ML LIQUID UDC GT SCH ×2 (08:38→20:16)
[2019-08-04] MEDS: LACOSAMIDE 100 MG/10 ML UDC GT SCH ×2 (08:39→20:16)
[2019-08-04] MEDS: ACIDOPHILUS/BULGARICUS CHEW TAB GT SCH ×2 (08:39→20:16)
[2019-08-04] MEDS: METOPROLOL TARTRATE 50 MG TABLET GT SCH ×2 (08:40→20:17)
[2019-08-04] MEDS: NUTRISOURCE FIBER 4 GM PACKET GT SCH (08:41)
[2019-08-04] MEDS: AMLODIPINE 10 MG TABLET GT SCH (08:41)
[2019-08-04] MEDS: HEPARIN SODIUM,PORCINE 5,000 UNITS/ML VIAL SQ SCH ×2 (08:43→20:17)
[2019-08-04] MEDS: NEOMY/BACITRAC/POLYMI OINT 28.35 GM TUBE TOP SCH ×2 (09:00→20:17)
[2019-08-04] MEDS: HYDROGEN PEROXIDE 3% 118 ML BOTTLE TOP SCH ×2 (09:00→21:26)
[2019-08-04] MEDS: CLINDAMYCIN TP SCH (09:00)
[2019-08-04] MEDS: COD LIVER OIL/ZINC OXIDE OINT 113 GM TUBE TP SCH ×2 (09:00→20:18)
--- NOTE | 2019-08-04 10:45 | NUR ---
Per swetha Wilde to change Cetaphil with Eucerin moisturizer cream to apply to face at night.
[2019-08-04] MEDS: JEVITY 1.2 1000 ML LIQUID GT PRN (11:18)
--- NOTE | 2019-08-04 14:42 | NUR ---
Patient stable, no acute respiratory distress noted, repositioned q2hrs for comfort.
--- NOTE | 2019-08-04 18:50 | NUR ---
continue monitoring closely callus on left lateral foot and fifth toe and intra digital left great toe and 2nd toe.
[2019-08-04 20:14] VITALS: BP 134/95
[2019-08-04] MEDS: FERROUS SULFATE 330 MG/7.5 ML UDC- FOR SA ONLY GT SCH (20:16)
[2019-08-04] MEDS: MULTIVIT, IRON, MIN NO. 8, FA TABLET GT SCH (20:17)
[2019-08-04] MEDS: RANITIDINE 300 MG GT SCH (20:17)
[2019-08-04] MEDS: MELATONIN 5MG TABLET GT SCH (20:17)
[2019-08-04] MEDS: ADAPALENE 0.3% TP SCH (20:18)
[2019-08-04] MEDS: MINERAL OIL/PETROLATUM,WHITE 57 GM TUBE TP SCH (20:18)
--- NOTE | 2019-08-04 21:57 | NUR ---
Temperature is 97.7, no SOB, no signs of any respiratory distress noted, 02 sat is 97%, patient is stable, turned and repositioned, applied gauze in between toes of the left foot d/t callus, kept clean and comfortable.
--- NOTE | 2019-08-04 23:55 | NUR ---
Noted with skin tears on the lower lips d/t patient biting on her lips, pressure applied and initiated treatment with triple antibiotic ointment, changed and repositioned, no signs of any distress, handled very gently. Abdoul (mother) was made aware of patient biting her lips and also lower lip skin tear treatment. will continue monitor patient.
[2019-08-05] MEDS: hydrALAZINE HCL 10 MG TABLET GT SCH ×4 (05:32→22:41)
[2019-08-05] MEDS: CALCIUM CARBONATE 500 MG TAB.CHEW GT SCH ×2 (05:32→17:36)
[2019-08-05] MEDS: JEVITY 1.2 1000 ML LIQUID GT PRN ×2 (05:33→22:42)
--- NOTE | 2019-08-05 08:00 | NUR ---
PT was received in bed and asleep. Vitals WNL. No respiratory distress noted. Patient noted with little bleeding on lips D/T bitting. Mother is aware. TX applied as ordered. Safety precautions were given. Call light within reach. Will continue to monitor.
[2019-08-05 08:05] LABS: BASOPHILS # (AUTO) 0.1 K/uL (0.0-8.0); BASOPHILS % (AUTO) 0.6 % (0.0-2.0); EOSINOPHILS # (AUTO) 0.3 K/uL (0.0-0.7); EOSINOPHILS % (AUTO) 2.6 % (0.0-7.0); HEMATOCRIT 39.1 % (31.2-41.9); HEMOGLOBIN 13.4 g/dL (10.9-14.3); LYMPHOCYTES # (AUTO) 2.3 K/uL (20.0-40.0); LYMPHOCYTES % (AUTO) 22.6 % (20.5-51.5); MEAN CORPUSCULAR HGB CONC 34 g/dL (32.3-35.6); MEAN CORPUSCULAR VOLUME 90.6 fL (75.5-95.3); MONOCYTES # (AUTO) 0.7 K/uL (2.0-10.0); NEUTROPHILS # (AUTO) 6.8 K/uL (1.8-8.9); NEUTROPHILS % (AUTO) 67.2 % (38.5-71.5); PLATELET COUNT (AUTO) 361 K/uL (179-408); RED BLOOD CELL COUNT(AUTO) 4.31 MIL/uL (3.63-4.92); WHITE BLOOD COUNT (AUTO) 10.1 K/uL (3.8-11.8)
[2019-08-05] MEDS: LACOSAMIDE 100 MG/10 ML UDC GT SCH ×2 (08:17→20:23)
[2019-08-05] MEDS: levETIRAcetam 500 MG/5 ML LIQUID UDC GT SCH ×2 (08:17→20:23)
[2019-08-05] MEDS: ACIDOPHILUS/BULGARICUS CHEW TAB GT SCH ×2 (08:18→20:23)
[2019-08-05] MEDS: METOPROLOL TARTRATE 50 MG TABLET GT SCH ×2 (08:19→20:24)
[2019-08-05] MEDS: AMLODIPINE 10 MG TABLET GT SCH (08:20)
[2019-08-05] MEDS: NUTRISOURCE FIBER 4 GM PACKET GT SCH (08:21)
[2019-08-05] MEDS: CLINDAMYCIN TP SCH (08:21)
[2019-08-05] MEDS: COD LIVER OIL/ZINC OXIDE OINT 113 GM TUBE TP SCH ×2 (08:21→20:28)
[2019-08-05] MEDS: NEOMY/BACITRAC/POLYMI OINT 28.35 GM TUBE TOP SCH ×2 (08:21→20:27)
[2019-08-05] MEDS: NEOMY/BACITRA/POLYMYXIN B OINT UD PACKET TP SCH ×2 (08:21→20:29)
[2019-08-05] MEDS: HEPARIN SODIUM,PORCINE 5,000 UNITS/ML VIAL SQ SCH ×2 (08:22→20:28)
[2019-08-05 08:23] LABS: BILIRUBIN,TOTAL 0.1 mg/dL (0.2-1.0); CREATININE 0.6 mg/dL (0.6-1.3); MAGNESIUM 2.3 mg/dL (1.8-2.4); PHOSPHOROUS 5.4 mg/dL (2.5-4.9); POTASSIUM 4.7 mmol/L (3.5-5.1); TOTAL PROTEIN, SERUM 8.3 g/dL (6.4-8.2)
[2019-08-05 09:26] VITALS: BP 112/64
[2019-08-05] MEDS: HYDROGEN PEROXIDE 3% 118 ML BOTTLE TOP SCH ×2 (09:50→21:36)
--- NOTE | 2019-08-05 15:00 | NUR ---
During rounds with the security ,noted the closet door is full of visitors stickers ,very hard to remove it,mmd unit teacher aware.
--- NOTE | 2019-08-05 16:00 | NUR ---
No acute respiratory distress ,frequent oral and tracheal suction done,pt was seen by Dr Kiran and Priti olea Pa ,aware of cxr results and labs results with new orders noted,supervisor nut processing consult to check on the L lateral foot callus and between great toe and 2nd toe callus,afebrile temperature 97.8.
[2019-08-05] MEDS: FERROUS SULFATE 330 MG/7.5 ML UDC- FOR SA ONLY GT SCH (20:23)
[2019-08-05] MEDS: MELATONIN 5MG TABLET GT SCH (20:26)
[2019-08-05] MEDS: MULTIVIT, IRON, MIN NO. 8, FA TABLET GT SCH (20:27)
[2019-08-05] MEDS: RANITIDINE 300 MG GT SCH (20:27)
[2019-08-05] MEDS: MINERAL OIL/PETROLATUM,WHITE 57 GM TUBE TP SCH (20:29)
[2019-08-05] MEDS: ADAPALENE 0.3% TP SCH (20:29)
[2019-08-05 21:42] VITALS: BP 153/73
[2019-08-05 22:00] VITALS: BP 99/66
[2019-08-06] MEDS: CALCIUM CARBONATE 500 MG TAB.CHEW GT SCH ×2 (05:36→17:04)
[2019-08-06] MEDS: hydrALAZINE HCL 10 MG TABLET GT SCH ×3 (05:36→22:00)
[2019-08-06 08:00] VITALS: BP 125/69
[2019-08-06] MEDS: levETIRAcetam 500 MG/5 ML LIQUID UDC GT SCH ×2 (08:24→20:29)
[2019-08-06] MEDS: LACOSAMIDE 100 MG/10 ML UDC GT SCH ×2 (08:24→20:29)
[2019-08-06] MEDS: ACIDOPHILUS/BULGARICUS CHEW TAB GT SCH ×2 (08:25→20:34)
[2019-08-06] MEDS: METOPROLOL TARTRATE 50 MG TABLET GT SCH ×2 (08:25→20:36)
[2019-08-06] MEDS: NUTRISOURCE FIBER 4 GM PACKET GT SCH (08:26)
[2019-08-06] MEDS: AMLODIPINE 10 MG TABLET GT SCH (08:26)
[2019-08-06] MEDS: CLINDAMYCIN TP SCH (08:26)
[2019-08-06] MEDS: COD LIVER OIL/ZINC OXIDE OINT 113 GM TUBE TP SCH ×2 (08:26→20:39)
[2019-08-06] MEDS: NEOMY/BACITRA/POLYMYXIN B OINT UD PACKET TP SCH ×2 (08:26→20:40)
[2019-08-06] MEDS: LORAZEPAM 0.5 MG TABLET GT PRN (08:27)
[2019-08-06] MEDS: HEPARIN SODIUM,PORCINE 5,000 UNITS/ML VIAL SQ SCH ×2 (08:37→20:39)
[2019-08-06] MEDS: HYDROGEN PEROXIDE 3% 118 ML BOTTLE TOP SCH ×2 (09:50→21:00)
--- NOTE | 2019-08-06 15:19 | NUR ---
0730 PT was received in bed and asleep. Vitals WNL. No respiratory distress noted. PT was seen biting lower lip with lesions. Facial grimicing and teeth grinding also noted. Provided Ativan for Agitation d/t lip biting and teeth grinding noted per MD's order. Provided lip treatment per MD's order. Safety precautions were given. Call light within reach. Will continue to monitor. 1220 PT's mother requested to [place]. Provided time with patient and family. FaceTime concluded and family was content. Will continue to monitor.
--- NOTE | 2019-08-06 16:30 | NUR ---
PT's requested for FaceTime. Provided time with PT and family. Family was content. Addendum: 08/06/19 at 1851 by JASWANT REDDING LVN CHARTING ERROR
[2019-08-06] MEDS: FERROUS SULFATE 330 MG/7.5 ML UDC- FOR SA ONLY GT SCH (20:30)
[2019-08-06] MEDS: MELATONIN 5MG TABLET GT SCH (20:36)
[2019-08-06] MEDS: MULTIVIT, IRON, MIN NO. 8, FA TABLET GT SCH (20:37)
[2019-08-06] MEDS: RANITIDINE 300 MG GT SCH (20:37)
[2019-08-06] MEDS: MINERAL OIL/PETROLATUM,WHITE 57 GM TUBE TP SCH (20:39)
[2019-08-06] MEDS: ADAPALENE 0.3% TP SCH (20:39)
[2019-08-06 20:56] VITALS: BP 112/51
[2019-08-06 22:26] VITALS: BP 93/54
[2019-08-07] MEDS: CALCIUM CARBONATE 500 MG TAB.CHEW GT SCH ×2 (05:50→18:22)
[2019-08-07] MEDS: hydrALAZINE HCL 10 MG TABLET GT SCH ×3 (05:50→22:00)
[2019-08-07 05:55] VITALS: BP 94/51
[2019-08-07 08:00] VITALS: BP 101/62
[2019-08-07] MEDS: LACOSAMIDE 100 MG/10 ML UDC GT SCH ×2 (08:00→20:35)
[2019-08-07] MEDS: levETIRAcetam 500 MG/5 ML LIQUID UDC GT SCH ×2 (08:00→20:35)
[2019-08-07] MEDS: HYDROGEN PEROXIDE 3% 118 ML BOTTLE TOP SCH ×2 (09:00→21:00)
[2019-08-07] MEDS: AMLODIPINE 10 MG TABLET GT SCH (09:09)
[2019-08-07] MEDS: METOPROLOL TARTRATE 50 MG TABLET GT SCH ×2 (09:09→20:36)
[2019-08-07] MEDS: ACIDOPHILUS/BULGARICUS CHEW TAB GT SCH ×2 (09:09→20:35)
[2019-08-07] MEDS: NUTRISOURCE FIBER 4 GM PACKET GT SCH (09:10)
[2019-08-07] MEDS: COD LIVER OIL/ZINC OXIDE OINT 113 GM TUBE TP SCH ×2 (09:16→20:36)
[2019-08-07] MEDS: HEPARIN SODIUM,PORCINE 5,000 UNITS/ML VIAL SQ SCH ×2 (09:16→20:36)
[2019-08-07] MEDS: CLINDAMYCIN TP SCH (09:16)
[2019-08-07] MEDS: NEOMY/BACITRA/POLYMYXIN B OINT UD PACKET TP SCH ×2 (09:17→20:39)
[2019-08-07] MEDS: JEVITY 1.2 1000 ML LIQUID GT PRN (10:17)
--- NOTE | 2019-08-07 10:41 | NUR ---
Podiatry consultation order faxed to Dr. Bai at [phone] (tel # [phone]). banquet server on call Ramandeep martin.
--- NOTE | 2019-08-07 10:46 | NUR ---
SAPNA called Dr. Bai's office [phone] and spoke with Fabi, who confirmed that the fax sent by this SW (see previous SS note) was received.
--- NOTE | 2019-08-07 17:18 | NUR ---
nursing note: Answered call from mother rosalva. mother wanting to do facetime with daughter, told her that i needed to get the phone from social group worker, mother started yelling that she doesn't need permission from social group worker to facetime her daughter, explained to mother that i cannot use my personal phone and social group worker is the only one that that has the phone that is available to be used for patient facetime. mother insisted on me to hurry up and do the facetime screaming and belittling me. asked to speak to speak to the director, director gave me back the phone telling me that she had a couple of questions to ask, when i picked up the phone i asked what her questions are, i told her daughter is doing well and if she would like to do the facetime with her daughter since the social group worker was standing next to me with the phone and she said "no my daughter is sad now because you didn't let me facetime her the first time.", explained again that i do not carry the phone that is provided for patient use and she began to raise her voice and yell at me being very verbally abusive, i tried to calm her down but the abusive language did not stop and kept yelling that she doesnt need permision from social group worker to talk to daughter, so after failing to calm her down i had to hang up on her. Ramandeep charge nurse, director weston and minna social group worker were present during incident.
--- NOTE | 2019-08-07 18:30 | NUR ---
SEEN BY DR. FORREST AND BRIAO.
[2019-08-07] MEDS: FERROUS SULFATE 330 MG/7.5 ML UDC- FOR SA ONLY GT SCH (20:35)
[2019-08-07] MEDS: MELATONIN 5MG TABLET GT SCH (20:36)
[2019-08-07] MEDS: MULTIVIT, IRON, MIN NO. 8, FA TABLET GT SCH (20:36)
[2019-08-07] MEDS: RANITIDINE 300 MG GT SCH (20:36)
[2019-08-07] MEDS: MINERAL OIL/PETROLATUM,WHITE 57 GM TUBE TP SCH (20:36)
[2019-08-07] MEDS: ADAPALENE 0.3% TP SCH (20:37)
[2019-08-07 20:54] VITALS: BP 124/76
[2019-08-07 22:00] VITALS: BP 130/76
[2019-08-08] MEDS: JEVITY 1.2 1000 ML LIQUID GT PRN ×2 (03:47→23:09)
[2019-08-08] MEDS: CALCIUM CARBONATE 500 MG TAB.CHEW GT SCH ×2 (05:46→17:11)
[2019-08-08] MEDS: hydrALAZINE HCL 10 MG TABLET GT SCH ×3 (05:46→21:28)
[2019-08-08 08:00] VITALS: BP 102/58
[2019-08-08 08:00] LABS: BASOPHILS # (AUTO) 0.1 K/uL (0.0-8.0); BASOPHILS % (AUTO) 0.5 % (0.0-2.0); EOSINOPHILS # (AUTO) 0.2 K/uL (0.0-0.7); EOSINOPHILS % (AUTO) 1.8 % (0.0-7.0); HEMATOCRIT 38.9 % (31.2-41.9); HEMOGLOBIN 13.1 g/dL (10.9-14.3); LYMPHOCYTES % (AUTO) 17.9 % (20.5-51.5); MEAN CORPUSCULAR HEMOGLOBIN 30.3 uug (24.7-32.8); MEAN CORPUSCULAR HGB CONC 34 g/dL (32.3-35.6); MEAN CORPUSCULAR VOLUME 90.2 fL (75.5-95.3); MONOCYTES # (AUTO) 0.7 K/uL (2.0-10.0); MONOCYTES % (AUTO) 6.5 % (0.0-11.0); NEUTROPHILS # (AUTO) 8.2 K/uL (1.8-8.9); NEUTROPHILS % (AUTO) 73.3 % (38.5-71.5); PLATELET COUNT (AUTO) 360 K/uL (179-408); RED BLOOD CELL COUNT(AUTO) 4.31 MIL/uL (3.63-4.92); WHITE BLOOD COUNT (AUTO) 11.2 K/uL (3.8-11.8)
[2019-08-08 08:10] LABS: ALANINE AMINOTRANSFERASE 73 U/L (14-59); ALKALINE PHOSPHATASE 89 U/L (50-136); ASPARTATE AMINOTRANSFERASE 33 U/L (15-37); BILIRUBIN,DIRECT < 0.1 mg/dL (0.0-0.2); BILIRUBIN,TOTAL 0.1 mg/dL (0.2-1.0)
[2019-08-08 08:42] LABS: CARBON DIOXIDE 29 mmol/L (21-32); CHLORIDE 103 mmol/L (98-107); CREATININE 0.5 mg/dL (0.6-1.3); GLUCOSE 99 mg/dL (74-106); MAGNESIUM 2.2 mg/dL (1.8-2.4); PHOSPHOROUS 5.2 mg/dL (2.5-4.9); POTASSIUM 4.9 mmol/L (3.5-5.1); UREA NITROGEN, BLOOD 13 mg/dL (7-18)
[2019-08-08] MEDS: levETIRAcetam 500 MG/5 ML LIQUID UDC GT SCH ×2 (08:53→20:14)
[2019-08-08] MEDS: LACOSAMIDE 100 MG/10 ML UDC GT SCH ×2 (08:53→20:14)
[2019-08-08] MEDS: ACIDOPHILUS/BULGARICUS CHEW TAB GT SCH ×2 (08:54→20:14)
[2019-08-08] MEDS: METOPROLOL TARTRATE 50 MG TABLET GT SCH ×2 (09:00→20:14)
[2019-08-08] MEDS: AMLODIPINE 10 MG TABLET GT SCH (09:00)
[2019-08-08] MEDS: HYDROGEN PEROXIDE 3% 118 ML BOTTLE TOP SCH ×2 (09:00→21:00)
[2019-08-08] MEDS: NUTRISOURCE FIBER 4 GM PACKET GT SCH (09:03)
[2019-08-08] MEDS: CLINDAMYCIN TP SCH (09:04)
[2019-08-08] MEDS: COD LIVER OIL/ZINC OXIDE OINT 113 GM TUBE TP SCH ×2 (09:04→20:15)
[2019-08-08] MEDS: HEPARIN SODIUM,PORCINE 5,000 UNITS/ML VIAL SQ SCH ×2 (09:04→20:15)
[2019-08-08] MEDS: NEOMY/BACITRA/POLYMYXIN B OINT UD PACKET TP SCH ×2 (09:04→20:15)
--- NOTE | 2019-08-08 13:20 | NUR ---
nursing notes: received a call from mother, asked how her morning vital signs were and told her they were stable. mother proceeded to ask why i hanged up the phone the previous day, i told her that she was yelling, being rude and not letting me get a word in and that there was no point in me listening to her abusive and demeaning behavior as i am here to take care of her daughter and answer her questions regarding her daughters care. she proceeded telling me that she was not yelling and i was the one being rude, i told her to please stop and politely redirected her by asking her if there are any questions she needed to be answered regarding her daughters care. she asked me again what the daughters morning vitals were, i told her they are the ones i gave her and told her her next vitals are due at two o'clock. she continued to ask what the daughter was doing at the moment, i told her that at the moment she is relaxed and sleeping, she began getting upset and said that this is not her normal sleeping time and if i had sedated her, i told her no PRN medications given, she began raising her voice and asking if i was going to wake up her daughter to check her vitals, i told her at this moment its one fifteen and her vitals are due at two but i have till three o'clock if she is still asleep. The mother began to yell again telling me not to ever hang up the phone on her again, i politely asked her again if there is anything else she needed to know regarding her daugter, she got upset and told me to just transfer her to Nick the director.
--- NOTE | 2019-08-08 14:30 | NUR ---
nursing notes: received writen instructions from . instructions posted overhead of bed in patients room. no cd received.
--- NOTE | 2019-08-08 17:56 | NUR ---
10:30am: SAPNA received a phone call from Mitali Terry, Nurse Port Crane Operator at [facility] ([facility]) Health Facilities Inspection Division Acute & Ancillary Unit (phone # [phone] or [phone] / [facility] main line [phone]. The phone call was in response to the SOC 341 that was faxed to [facility] earlier this month (see previous SS notes). Present during this phone call was also Subacute Cargo Inspector Nick Goldberg. Reasons for the SOC 341 report were discussed in detail. Mitali requested that this SW fax to her additional information, including patient's face sheet, H & P, nursing and SW progress notes, care plan, SOC 341, and any other relevant incident reports. SW to follow-up on sending this fax, which Mitali stated needs to be in to her by 08/12/2019. SAPNA and Nick expressed understanding and agreement. SAPNA informed Mitali that SAPNA has also been in contact with the [facility] on several occasions, and an SOC 341 was also faxed to them on 07/15/19. Mitali advised this SW to also submit an APS report, which SAPNA will follow-up on. Mitali stated that once she receives the fax, she will be reviewing the case with her stonemason supervisor and will then call this SAPNA and Nick back. SAPNA and Nick expressed understanding.
[2019-08-08] MEDS: FERROUS SULFATE 330 MG/7.5 ML UDC- FOR SA ONLY GT SCH (20:14)
[2019-08-08] MEDS: MELATONIN 5MG TABLET GT SCH (20:14)
[2019-08-08] MEDS: MULTIVIT, IRON, MIN NO. 8, FA TABLET GT SCH (20:14)
[2019-08-08] MEDS: RANITIDINE 300 MG GT SCH (20:14)
[2019-08-08] MEDS: MINERAL OIL/PETROLATUM,WHITE 57 GM TUBE TP SCH (20:15)
[2019-08-08] MEDS: ADAPALENE 0.3% TP SCH (20:15)
[2019-08-08 20:53] VITALS: BP 138/84
[2019-08-09] MEDS: hydrALAZINE HCL 10 MG TABLET GT SCH ×3 (05:17→22:00)
[2019-08-09] MEDS: CALCIUM CARBONATE 500 MG TAB.CHEW GT SCH ×2 (05:17→17:29)
[2019-08-09 08:00] VITALS: BP 114/74
[2019-08-09] MEDS: NUTRISOURCE FIBER 4 GM PACKET GT SCH (08:02)
[2019-08-09] MEDS: ACIDOPHILUS/BULGARICUS CHEW TAB GT SCH ×2 (08:02→20:18)
[2019-08-09] MEDS: levETIRAcetam 500 MG/5 ML LIQUID UDC GT SCH ×2 (08:04→20:17)
[2019-08-09] MEDS: METOPROLOL TARTRATE 50 MG TABLET GT SCH ×2 (08:06→20:18)
[2019-08-09] MEDS: AMLODIPINE 10 MG TABLET GT SCH (08:13)
[2019-08-09] MEDS: HEPARIN SODIUM,PORCINE 5,000 UNITS/ML VIAL SQ SCH ×2 (08:15→20:19)
[2019-08-09] MEDS: LACOSAMIDE 100 MG/10 ML UDC GT SCH ×2 (08:17→20:17)
[2019-08-09] MEDS: NEOMY/BACITRA/POLYMYXIN B OINT UD PACKET TP SCH ×2 (08:20→20:20)
[2019-08-09] MEDS: CLINDAMYCIN TP SCH (08:20)
[2019-08-09] MEDS: COD LIVER OIL/ZINC OXIDE OINT 113 GM TUBE TP SCH ×2 (08:20→20:20)
[2019-08-09] MEDS: HYDROGEN PEROXIDE 3% 118 ML BOTTLE TOP SCH ×2 (09:45→20:19)
[2019-08-09] MEDS: JEVITY 1.2 1000 ML LIQUID GT PRN (18:01)
[2019-08-09] MEDS: FERROUS SULFATE 330 MG/7.5 ML UDC- FOR SA ONLY GT SCH (20:17)
[2019-08-09] MEDS: MELATONIN 5MG TABLET GT SCH (20:18)
[2019-08-09] MEDS: RANITIDINE 300 MG GT SCH (20:18)
[2019-08-09] MEDS: MULTIVIT, IRON, MIN NO. 8, FA TABLET GT SCH (20:18)
[2019-08-09] MEDS: MINERAL OIL/PETROLATUM,WHITE 57 GM TUBE TP SCH (20:20)
[2019-08-09] MEDS: ADAPALENE 0.3% TP SCH (20:20)
[2019-08-09 20:45] VITALS: BP 126/81
[2019-08-10] MEDS: hydrALAZINE HCL 10 MG TABLET GT SCH ×3 (06:15→22:00)
[2019-08-10] MEDS: CALCIUM CARBONATE 500 MG TAB.CHEW GT SCH ×2 (06:15→17:55)
[2019-08-10] MEDS: levETIRAcetam 500 MG/5 ML LIQUID UDC GT SCH ×2 (08:18→20:02)
[2019-08-10] MEDS: LACOSAMIDE 100 MG/10 ML UDC GT SCH ×2 (08:19→20:02)
[2019-08-10] MEDS: ACIDOPHILUS/BULGARICUS CHEW TAB GT SCH ×2 (08:19→20:02)
[2019-08-10] MEDS: NUTRISOURCE FIBER 4 GM PACKET GT SCH (08:20)
[2019-08-10] MEDS: METOPROLOL TARTRATE 50 MG TABLET GT SCH ×2 (08:20→20:02)
[2019-08-10] MEDS: AMLODIPINE 10 MG TABLET GT SCH (08:20)
[2019-08-10] MEDS: HEPARIN SODIUM,PORCINE 5,000 UNITS/ML VIAL SQ SCH ×2 (08:21→20:02)
[2019-08-10] MEDS: NEOMY/BACITRA/POLYMYXIN B OINT UD PACKET TP SCH ×2 (08:21→20:03)
[2019-08-10] MEDS: COD LIVER OIL/ZINC OXIDE OINT 113 GM TUBE TP SCH ×2 (08:21→20:02)
[2019-08-10] MEDS: CLINDAMYCIN TP SCH (08:21)
[2019-08-10] MEDS: HYDROGEN PEROXIDE 3% 118 ML BOTTLE TOP SCH ×2 (09:57→21:04)
[2019-08-10 11:53] VITALS: BP 109/56
[2019-08-10] MEDS: JEVITY 1.2 1000 ML LIQUID GT PRN (11:53)
[2019-08-10] MEDS: RANITIDINE 300 MG GT SCH (20:02)
[2019-08-10] MEDS: MULTIVIT, IRON, MIN NO. 8, FA TABLET GT SCH (20:02)
[2019-08-10] MEDS: FERROUS SULFATE 330 MG/7.5 ML UDC- FOR SA ONLY GT SCH (20:02)
[2019-08-10] MEDS: MELATONIN 5MG TABLET GT SCH (20:02)
[2019-08-10] MEDS: ADAPALENE 0.3% TP SCH (20:03)
[2019-08-10] MEDS: MINERAL OIL/PETROLATUM,WHITE 57 GM TUBE TP SCH (20:03)
[2019-08-10 21:10] VITALS: BP 142/79
[2019-08-11] MEDS: hydrALAZINE HCL 10 MG TABLET GT SCH ×3 (05:48→22:00)
[2019-08-11] MEDS: CALCIUM CARBONATE 500 MG TAB.CHEW GT SCH ×2 (05:48→17:10)
[2019-08-11 07:35] LABS: ALANINE AMINOTRANSFERASE 82 U/L (14-59); ALKALINE PHOSPHATASE 88 U/L (50-136); ASPARTATE AMINOTRANSFERASE 32 U/L (15-37); BILIRUBIN,TOTAL 0.1 mg/dL (0.2-1.0); CARBON DIOXIDE 31 mmol/L (21-32); CHLORIDE 103 mmol/L (98-107); CREATININE 0.5 mg/dL (0.6-1.3); GLUCOSE 103 mg/dL (74-106); POTASSIUM 4.6 mmol/L (3.5-5.1); TOTAL PROTEIN, SERUM 7.9 g/dL (6.4-8.2); UREA NITROGEN, BLOOD 17 mg/dL (7-18)
[2019-08-11 07:48] LABS: BASOPHILS # (AUTO) 0.1 K/uL (0.0-8.0); BASOPHILS % (AUTO) 0.7 % (0.0-2.0); EOSINOPHILS # (AUTO) 0.2 K/uL (0.0-0.7); EOSINOPHILS % (AUTO) 2.7 % (0.0-7.0); HEMATOCRIT 38.2 % (31.2-41.9); HEMOGLOBIN 13.1 g/dL (10.9-14.3); LYMPHOCYTES # (AUTO) 1.4 K/uL (20.0-40.0); LYMPHOCYTES % (AUTO) 16.1 % (20.5-51.5); MEAN CORPUSCULAR HGB CONC 34 g/dL (32.3-35.6); MEAN CORPUSCULAR VOLUME 90.6 fL (75.5-95.3); MONOCYTES # (AUTO) 0.8 K/uL (2.0-10.0); MONOCYTES % (AUTO) 9.1 % (0.0-11.0); NEUTROPHILS # (AUTO) 6.3 K/uL (1.8-8.9); NEUTROPHILS % (AUTO) 71.4 % (38.5-71.5); PLATELET COUNT (AUTO) 386 K/uL (179-408); RED BLOOD CELL COUNT(AUTO) 4.22 MIL/uL (3.63-4.92); WHITE BLOOD COUNT (AUTO) 8.8 K/uL (3.8-11.8)
[2019-08-11 08:00] VITALS: BP 114/58
[2019-08-11] MEDS: levETIRAcetam 500 MG/5 ML LIQUID UDC GT SCH ×2 (08:46→20:06)
[2019-08-11] MEDS: HEPARIN SODIUM,PORCINE 5,000 UNITS/ML VIAL SQ SCH ×2 (08:47→20:08)
[2019-08-11] MEDS: ACIDOPHILUS/BULGARICUS CHEW TAB GT SCH ×2 (08:47→20:10)
[2019-08-11] MEDS: LACOSAMIDE 100 MG/10 ML UDC GT SCH ×2 (08:47→20:06)
[2019-08-11] MEDS: AMLODIPINE 10 MG TABLET GT SCH (08:47)
[2019-08-11] MEDS: NUTRISOURCE FIBER 4 GM PACKET GT SCH (08:47)
[2019-08-11] MEDS: METOPROLOL TARTRATE 50 MG TABLET GT SCH ×2 (08:47→20:18)
[2019-08-11] MEDS: NEOMY/BACITRA/POLYMYXIN B OINT UD PACKET TP SCH ×2 (08:48→20:10)
[2019-08-11] MEDS: CLINDAMYCIN TP SCH (08:48)
[2019-08-11] MEDS: COD LIVER OIL/ZINC OXIDE OINT 113 GM TUBE TP SCH ×2 (08:48→20:10)
[2019-08-11] MEDS: HYDROGEN PEROXIDE 3% 118 ML BOTTLE TOP SCH ×2 (09:31→21:00)
--- NOTE | 2019-08-11 14:50 | NUR ---
Per advisement from [facility] (see SS note dated 08/07), SW submitted an APS report today for interference in patient's care with potential harm to patient's physical and emotional well-being. APS Intake ID number is [id number]. Subacute Staff Development Manager Nick Goldberg, SS Director Germaine Gonzalez, and Administration are aware.
[2019-08-11] MEDS: MULTIVIT, IRON, MIN NO. 8, FA TABLET GT SCH (20:10)
[2019-08-11] MEDS: MINERAL OIL/PETROLATUM,WHITE 57 GM TUBE TP SCH (20:10)
[2019-08-11] MEDS: ADAPALENE 0.3% TP SCH (20:10)
[2019-08-11] MEDS: FERROUS SULFATE 330 MG/7.5 ML UDC- FOR SA ONLY GT SCH (20:10)
[2019-08-11] MEDS: RANITIDINE 300 MG GT SCH (20:10)
[2019-08-11] MEDS: MELATONIN 5MG TABLET GT SCH (20:10)
[2019-08-11 20:40] VITALS: BP 113/62
[2019-08-12] MEDS: hydrALAZINE HCL 10 MG TABLET GT SCH ×3 (06:00→22:37)
[2019-08-12] MEDS: CALCIUM CARBONATE 500 MG TAB.CHEW GT SCH ×2 (06:10→17:33)
[2019-08-12] MEDS: JEVITY 1.2 1000 ML LIQUID GT PRN ×2 (06:53→23:52)
[2019-08-12 08:00] VITALS: BP 93/66
[2019-08-12] MEDS: METOPROLOL TARTRATE 50 MG TABLET GT SCH ×2 (08:39→20:30)
[2019-08-12] MEDS: levETIRAcetam 500 MG/5 ML LIQUID UDC GT SCH ×2 (08:39→20:04)
[2019-08-12] MEDS: NUTRISOURCE FIBER 4 GM PACKET GT SCH (08:39)
[2019-08-12] MEDS: AMLODIPINE 10 MG TABLET GT SCH (08:39)
[2019-08-12] MEDS: LACOSAMIDE 100 MG/10 ML UDC GT SCH ×2 (08:39→20:04)
[2019-08-12] MEDS: ACIDOPHILUS/BULGARICUS CHEW TAB GT SCH ×2 (08:39→20:03)
[2019-08-12] MEDS: CLINDAMYCIN TP SCH (08:40)
[2019-08-12] MEDS: HEPARIN SODIUM,PORCINE 5,000 UNITS/ML VIAL SQ SCH ×2 (08:40→20:03)
[2019-08-12] MEDS: COD LIVER OIL/ZINC OXIDE OINT 113 GM TUBE TP SCH ×2 (08:40→20:04)
[2019-08-12] MEDS: NEOMY/BACITRA/POLYMYXIN B OINT UD PACKET TP SCH ×2 (08:40→20:05)
[2019-08-12] MEDS: HYDROGEN PEROXIDE 3% 118 ML BOTTLE TOP SCH ×2 (09:00→20:16)
--- NOTE | 2019-08-12 10:28 | NUR ---
Per SAPNA's conversation on 08/08/19 with Mitali Terry ([phone]), Nurse Material Control Manager at [facility] ([facility]) Health Facilities Inspection Division Acute & Ancillary Unit, SAPNA faxed the requested documents to Mitali Terry this morning (fax # [phone]). SAPNA notified Mitali via email that the fax was sent. Mitali also provided the following information pertaining to the report: Complaint Intake Number is: [id number] / Category: Resident Abuse. Phone numbers to [facility]: 1) main line: [phone] 2) Department phone numbers: [phone] or [phone]
--- NOTE | 2019-08-12 14:24 | NUR ---
SW received the fax transmittal form confirming that all pages were faxed to [facility] (See previous SS note) regarding fax.
[2019-08-12] MEDS: FERROUS SULFATE 330 MG/7.5 ML UDC- FOR SA ONLY GT SCH (20:03)
[2019-08-12] MEDS: RANITIDINE 300 MG GT SCH (20:03)
[2019-08-12] MEDS: MELATONIN 5MG TABLET GT SCH (20:03)
[2019-08-12] MEDS: MULTIVIT, IRON, MIN NO. 8, FA TABLET GT SCH (20:03)
[2019-08-12] MEDS: ADAPALENE 0.3% TP SCH (20:04)
[2019-08-12] MEDS: MINERAL OIL/PETROLATUM,WHITE 57 GM TUBE TP SCH (20:04)
[2019-08-12 20:30] VITALS: BP 140/90
[2019-08-13] MEDS: hydrALAZINE HCL 10 MG TABLET GT SCH ×3 (05:49→22:00)
[2019-08-13] MEDS: CALCIUM CARBONATE 500 MG TAB.CHEW GT SCH ×2 (05:50→17:49)
[2019-08-13] MEDS: LACOSAMIDE 100 MG/10 ML UDC GT SCH ×2 (08:36→19:53)
[2019-08-13] MEDS: levETIRAcetam 500 MG/5 ML LIQUID UDC GT SCH ×2 (08:36→19:53)
[2019-08-13] MEDS: NUTRISOURCE FIBER 4 GM PACKET GT SCH (08:36)
[2019-08-13] MEDS: COD LIVER OIL/ZINC OXIDE OINT 113 GM TUBE TP SCH ×2 (08:36→21:42)
[2019-08-13] MEDS: CLINDAMYCIN TP SCH (08:36)
[2019-08-13] MEDS: ACIDOPHILUS/BULGARICUS CHEW TAB GT SCH ×2 (08:36→21:40)
[2019-08-13] MEDS: NEOMY/BACITRA/POLYMYXIN B OINT UD PACKET TP SCH ×2 (08:36→21:42)
[2019-08-13] MEDS: AMLODIPINE 10 MG TABLET GT SCH (08:42)
[2019-08-13] MEDS: METOPROLOL TARTRATE 50 MG TABLET GT SCH ×2 (08:42→21:41)
[2019-08-13] MEDS: HEPARIN SODIUM,PORCINE 5,000 UNITS/ML VIAL SQ SCH ×2 (09:00→21:41)
[2019-08-13] MEDS: HYDROGEN PEROXIDE 3% 118 ML BOTTLE TOP SCH ×2 (10:05→21:18)
--- NOTE | 2019-08-13 11:30 | NUR ---
Seen and examined by Dr Sosa ,no new orders noted.
[2019-08-13 11:56] VITALS: BP 114/57
--- NOTE | 2019-08-13 17:09 | NUR ---
4:17pm: Phone call received from Mitali Terry ([phone]) Health Facilities After School Driver Nurse, [facility] ([facility]), Health Facilities Inspection Division in response to the records that this SW had faxed to Mitali yesterday, 08/12/19 (see notes from this SW dated 08/11) for . Included on this phone call was this SW and Cnc Field Service Engineer Nick Goldberg. Mitali stated that after reviewing all the records and documentation, that [facility] has decided that the case was unsubstantiated for further investigation by [facility], due to it being a case of disruptive behavior by a family member, and not a case of cqkeg-lc-vcrovdh abuse or muhrgpx-bx-qivauyp abuse. Mitali provided some additional feedback and stated that the case was being deferred back to the facilities management in order for management to address the behavioral concerns. Nick Goldberg and this SW expressed understanding, and thanked Mitali for her feedback and guidance.
--- NOTE | 2019-08-13 18:35 | NUR ---
1730 PT's mother requested to do FaceTime. Nurse was passing meds and unable to do it. Charge nurse stated that assigned nurse can do it in a few minutes. Mother started complaining stating that she was being denied her time. Assigned nurse spoke to mother and said that she will FaceTime the patient with the mom in 30 minutes and explained that she was in the middle of passing meds. Mother understood with a calm voice and agreed to do it in 30 mins. 1800 Nurse is ready to do FaceTime. Mother called, but did not have the appropriate rosas. Nurse recommended to download [employer]. Disconnected with Mother. Waiting for call back. 1830 Mother was able to FaceTime with Patient. Conversation lasted 10 mins. Mother is aware that the limit is only 3-5 mins. Mother got upset at charge nurse because she was being cut from her time. Assigned nurse emphasized on the FaceTime policy. Nurse asked politely to end the call. FaceTime concluded.
[2019-08-13] MEDS: ACETAMINOPHEN 650 MG/20 ML UDC- SA PATIENTS-PAIN ONLY GT PRN (19:30)
[2019-08-13] MEDS: FERROUS SULFATE 330 MG/7.5 ML UDC- FOR SA ONLY GT SCH (21:40)
[2019-08-13] MEDS: RANITIDINE 300 MG GT SCH (21:41)
[2019-08-13] MEDS: MELATONIN 5MG TABLET GT SCH (21:41)
[2019-08-13] MEDS: MULTIVIT, IRON, MIN NO. 8, FA TABLET GT SCH (21:41)
[2019-08-13] MEDS: MINERAL OIL/PETROLATUM,WHITE 57 GM TUBE TP SCH (21:42)
[2019-08-13] MEDS: ADAPALENE 0.3% TP SCH (21:42)
[2019-08-13 22:29] VITALS: BP 148/73
[2019-08-14] MEDS: hydrALAZINE HCL 10 MG TABLET GT SCH ×3 (05:56→22:00)
[2019-08-14] MEDS: CALCIUM CARBONATE 500 MG TAB.CHEW GT SCH ×2 (05:57→17:08)
[2019-08-14 08:00] VITALS: BP 132/63
[2019-08-14] MEDS: ACIDOPHILUS/BULGARICUS CHEW TAB GT SCH ×2 (08:54→20:25)
[2019-08-14] MEDS: LACOSAMIDE 100 MG/10 ML UDC GT SCH ×2 (08:54→20:25)
[2019-08-14] MEDS: levETIRAcetam 500 MG/5 ML LIQUID UDC GT SCH ×2 (08:54→20:25)
[2019-08-14] MEDS: METOPROLOL TARTRATE 50 MG TABLET GT SCH ×2 (08:55→20:26)
[2019-08-14] MEDS: NEOMY/BACITRA/POLYMYXIN B OINT UD PACKET TP SCH ×2 (08:55→20:35)
[2019-08-14] MEDS: COD LIVER OIL/ZINC OXIDE OINT 113 GM TUBE TP SCH ×2 (08:55→20:34)
[2019-08-14] MEDS: NUTRISOURCE FIBER 4 GM PACKET GT SCH (08:55)
[2019-08-14] MEDS: HEPARIN SODIUM,PORCINE 5,000 UNITS/ML VIAL SQ SCH ×2 (08:55→20:25)
[2019-08-14] MEDS: AMLODIPINE 10 MG TABLET GT SCH (08:55)
[2019-08-14] MEDS: CLINDAMYCIN TP SCH (08:55)
[2019-08-14] MEDS: HYDROGEN PEROXIDE 3% 118 ML BOTTLE TOP SCH ×2 (09:00→21:10)
[2019-08-14] MEDS: JEVITY 1.2 1000 ML LIQUID GT PRN (10:42)
[2019-08-14 20:00] VITALS: BP 94/52
[2019-08-14] MEDS: FERROUS SULFATE 330 MG/7.5 ML UDC- FOR SA ONLY GT SCH (20:25)
[2019-08-14] MEDS: MULTIVIT, IRON, MIN NO. 8, FA TABLET GT SCH (20:27)
[2019-08-14] MEDS: MELATONIN 5MG TABLET GT SCH (20:27)
[2019-08-14] MEDS: RANITIDINE 300 MG GT SCH (20:27)
[2019-08-14] MEDS: MINERAL OIL/PETROLATUM,WHITE 57 GM TUBE TP SCH (20:34)
[2019-08-14] MEDS: ADAPALENE 0.3% TP SCH (20:35)
[2019-08-15] MEDS: CALCIUM CARBONATE 500 MG TAB.CHEW GT SCH ×2 (05:22→17:35)
[2019-08-15] MEDS: hydrALAZINE HCL 10 MG TABLET GT SCH ×3 (05:22→22:59)
[2019-08-15 08:00] VITALS: BP 119/65
[2019-08-15] MEDS: levETIRAcetam 500 MG/5 ML LIQUID UDC GT SCH ×2 (09:00→20:04)
[2019-08-15] MEDS: HYDROGEN PEROXIDE 3% 118 ML BOTTLE TOP SCH ×2 (09:00→20:21)
[2019-08-15] MEDS: LACOSAMIDE 100 MG/10 ML UDC GT SCH ×2 (09:00→20:20)
[2019-08-15] MEDS: ACIDOPHILUS/BULGARICUS CHEW TAB GT SCH ×2 (09:08→20:05)
[2019-08-15] MEDS: AMLODIPINE 10 MG TABLET GT SCH (09:08)
[2019-08-15] MEDS: METOPROLOL TARTRATE 50 MG TABLET GT SCH ×2 (09:08→20:06)
[2019-08-15] MEDS: NUTRISOURCE FIBER 4 GM PACKET GT SCH (09:09)
[2019-08-15] MEDS: HEPARIN SODIUM,PORCINE 5,000 UNITS/ML VIAL SQ SCH ×2 (09:10→20:20)
[2019-08-15] MEDS: COD LIVER OIL/ZINC OXIDE OINT 113 GM TUBE TP SCH ×2 (09:10→20:21)
[2019-08-15] MEDS: CLINDAMYCIN TP SCH (09:11)
[2019-08-15] MEDS: NEOMY/BACITRA/POLYMYXIN B OINT UD PACKET TP SCH ×2 (09:11→20:21)
[2019-08-15] MEDS: JEVITY 1.2 1000 ML LIQUID GT PRN (09:12)
--- NOTE | 2019-08-15 16:48 | NUR ---
Subacute Director Sales And Trade Marketing Nick Goldberg provided an update to patient's mother Abdoul via email that per advisement from [facility], [facility], and CDC, visitation restrictions will continue to remain in place for all medical terminologist care facilities in order to protect the health and safety of residents and staff. Therefore [facility] Subacute Unit will continue to restrict all visitations, until further notice.
[2019-08-15] MEDS: LORAZEPAM 0.5 MG TABLET GT PRN (17:41)
[2019-08-15] MEDS: FERROUS SULFATE 330 MG/7.5 ML UDC- FOR SA ONLY GT SCH (20:04)
[2019-08-15] MEDS: RANITIDINE 300 MG GT SCH (20:07)
[2019-08-15] MEDS: MELATONIN 5MG TABLET GT SCH (20:07)
[2019-08-15] MEDS: MULTIVIT, IRON, MIN NO. 8, FA TABLET GT SCH (20:08)
[2019-08-15] MEDS: ADAPALENE 0.3% TP SCH (20:21)
[2019-08-15] MEDS: MINERAL OIL/PETROLATUM,WHITE 57 GM TUBE TP SCH (20:21)
[2019-08-15 21:32] VITALS: BP 138/73
[2019-08-16] MEDS: hydrALAZINE HCL 10 MG TABLET GT SCH ×3 (06:00→22:00)
[2019-08-16] MEDS: CALCIUM CARBONATE 500 MG TAB.CHEW GT SCH ×2 (06:14→17:36)
[2019-08-16 08:03] VITALS: BP 117/51
[2019-08-16] MEDS: levETIRAcetam 500 MG/5 ML LIQUID UDC GT SCH ×2 (08:18→20:22)
[2019-08-16] MEDS: LACOSAMIDE 100 MG/10 ML UDC GT SCH ×2 (08:18→20:40)
[2019-08-16] MEDS: ACIDOPHILUS/BULGARICUS CHEW TAB GT SCH ×2 (08:20→20:25)
[2019-08-16] MEDS: METOPROLOL TARTRATE 50 MG TABLET GT SCH ×2 (08:21→20:25)
[2019-08-16] MEDS: AMLODIPINE 10 MG TABLET GT SCH (08:23)
[2019-08-16] MEDS: NUTRISOURCE FIBER 4 GM PACKET GT SCH (08:23)
[2019-08-16] MEDS: HEPARIN SODIUM,PORCINE 5,000 UNITS/ML VIAL SQ SCH ×2 (08:26→20:37)
[2019-08-16] MEDS: CLINDAMYCIN TP SCH (08:26)
[2019-08-16] MEDS: NEOMY/BACITRA/POLYMYXIN B OINT UD PACKET TP SCH ×2 (08:26→20:32)
[2019-08-16] MEDS: COD LIVER OIL/ZINC OXIDE OINT 113 GM TUBE TP SCH ×2 (08:26→20:32)
[2019-08-16] MEDS: HYDROGEN PEROXIDE 3% 118 ML BOTTLE TOP SCH ×2 (08:31→19:06)
[2019-08-16 10:00] VITALS: BP 111/60
--- NOTE | 2019-08-16 10:00 | NUR ---
Seen and examined by Dr Sosa ,no new orders noted.
[2019-08-16] MEDS: FERROUS SULFATE 330 MG/7.5 ML UDC- FOR SA ONLY GT SCH (20:23)
[2019-08-16] MEDS: MULTIVIT, IRON, MIN NO. 8, FA TABLET GT SCH (20:26)
[2019-08-16] MEDS: RANITIDINE 300 MG GT SCH (20:26)
[2019-08-16] MEDS: MELATONIN 5MG TABLET GT SCH (20:26)
[2019-08-16] MEDS: ADAPALENE 0.3% TP SCH (20:32)
[2019-08-16] MEDS: MINERAL OIL/PETROLATUM,WHITE 57 GM TUBE TP SCH (20:32)
[2019-08-16 21:53] VITALS: BP 134/88
[2019-08-16 22:29] VITALS: BP 100/63
[2019-08-17] MEDS: hydrALAZINE HCL 10 MG TABLET GT SCH ×3 (05:52→22:33)
[2019-08-17] MEDS: CALCIUM CARBONATE 500 MG TAB.CHEW GT SCH ×2 (05:53→17:07)
[2019-08-17] MEDS: levETIRAcetam 500 MG/5 ML LIQUID UDC GT SCH ×2 (08:00→20:25)
[2019-08-17] MEDS: LACOSAMIDE 100 MG/10 ML UDC GT SCH ×2 (08:00→20:25)
[2019-08-17 08:04] VITALS: BP 110/60
[2019-08-17] MEDS: METOPROLOL TARTRATE 50 MG TABLET GT SCH ×2 (09:00→20:26)
[2019-08-17] MEDS: AMLODIPINE 10 MG TABLET GT SCH (09:00)
[2019-08-17] MEDS: HYDROGEN PEROXIDE 3% 118 ML BOTTLE TOP SCH ×2 (09:00→21:54)
[2019-08-17] MEDS: ACIDOPHILUS/BULGARICUS CHEW TAB GT SCH ×2 (09:02→20:25)
[2019-08-17] MEDS: NUTRISOURCE FIBER 4 GM PACKET GT SCH (09:03)
[2019-08-17] MEDS: COD LIVER OIL/ZINC OXIDE OINT 113 GM TUBE TP SCH ×2 (09:04→20:28)
[2019-08-17] MEDS: NEOMY/BACITRA/POLYMYXIN B OINT UD PACKET TP SCH ×2 (09:04→20:28)
[2019-08-17] MEDS: CLINDAMYCIN TP SCH (09:04)
[2019-08-17] MEDS: HEPARIN SODIUM,PORCINE 5,000 UNITS/ML VIAL SQ SCH ×2 (09:04→21:00)
[2019-08-17] MEDS: FERROUS SULFATE 330 MG/7.5 ML UDC- FOR SA ONLY GT SCH (20:25)
[2019-08-17] MEDS: RANITIDINE 300 MG GT SCH (20:26)
[2019-08-17] MEDS: MELATONIN 5MG TABLET GT SCH (20:26)
[2019-08-17] MEDS: MULTIVIT, IRON, MIN NO. 8, FA TABLET GT SCH (20:26)
[2019-08-17] MEDS: MINERAL OIL/PETROLATUM,WHITE 57 GM TUBE TP SCH (20:28)
[2019-08-17] MEDS: ADAPALENE 0.3% TP SCH (20:28)
[2019-08-17 22:14] VITALS: BP 159/90
[2019-08-17] MEDS: JEVITY 1.2 1000 ML LIQUID GT PRN (23:00)
[2019-08-17 23:11] VITALS: BP 106/53
[2019-08-18 06:00] VITALS: BP 101/68
[2019-08-18] MEDS: hydrALAZINE HCL 10 MG TABLET GT SCH ×3 (06:00→22:34)
[2019-08-18] MEDS: CALCIUM CARBONATE 500 MG TAB.CHEW GT SCH ×2 (06:12→17:33)
[2019-08-18 08:00] VITALS: BP 122/72
[2019-08-18] MEDS: levETIRAcetam 500 MG/5 ML LIQUID UDC GT SCH ×2 (08:20→20:09)
[2019-08-18] MEDS: METOPROLOL TARTRATE 50 MG TABLET GT SCH ×2 (08:20→21:00)
[2019-08-18] MEDS: AMLODIPINE 10 MG TABLET GT SCH (08:20)
[2019-08-18] MEDS: NUTRISOURCE FIBER 4 GM PACKET GT SCH (08:20)
[2019-08-18] MEDS: LACOSAMIDE 100 MG/10 ML UDC GT SCH ×2 (08:20→20:06)
[2019-08-18] MEDS: ACIDOPHILUS/BULGARICUS CHEW TAB GT SCH ×2 (08:20→20:07)
[2019-08-18] MEDS: HEPARIN SODIUM,PORCINE 5,000 UNITS/ML VIAL SQ SCH ×2 (08:22→21:13)
[2019-08-18] MEDS: COD LIVER OIL/ZINC OXIDE OINT 113 GM TUBE TP SCH ×2 (08:26→20:08)
[2019-08-18] MEDS: NEOMY/BACITRA/POLYMYXIN B OINT UD PACKET TP SCH ×2 (08:26→20:09)
[2019-08-18] MEDS: CLINDAMYCIN TP SCH (08:26)
[2019-08-18] MEDS: HYDROGEN PEROXIDE 3% 118 ML BOTTLE TOP SCH ×2 (09:00→21:24)
[2019-08-18 11:59] LABS: BILIRUBIN,TOTAL 0.3 mg/dL (0.2-1.0); CREATININE 0.6 mg/dL (0.6-1.3); POTASSIUM 4.4 mmol/L (3.5-5.1); TOTAL PROTEIN, SERUM 8.3 g/dL (6.4-8.2)
--- NOTE | 2019-08-18 11:59 | NUR ---
Seen by Priti DAMON, notified of temp of 99.2, new orders given, cbc, cmp today, also seen by Santos Johnson and notified of pt's condition with no new orders at this time.
[2019-08-18 12:11] LABS: EOSINOPHILS # (AUTO) 0.2 K/uL (0.0-0.7); MEAN CORPUSCULAR HEMOGLOBIN 30.3 uug (24.7-32.8); MEAN CORPUSCULAR HGB CONC 33 g/dL (32.3-35.6); MEAN CORPUSCULAR VOLUME 91.1 fL (75.5-95.3); MONOCYTES # (AUTO) 0.8 K/uL (2.0-10.0)
[2019-08-18 12:29] LABS: BASOPHILS # (AUTO) 0.1 K/uL (0.0-8.0); BASOPHILS % (AUTO) 0.4 % (0.0-2.0); EOSINOPHILS % (AUTO) 1.5 % (0.0-7.0); HEMATOCRIT 40.8 % (31.2-41.9); HEMOGLOBIN 13.6 g/dL (10.9-14.3); LYMPHOCYTES # (AUTO) 1.5 K/uL (20.0-40.0); LYMPHOCYTES % (AUTO) 10.7 % (20.5-51.5); MONOCYTES % (AUTO) 5.5 % (0.0-11.0); NEUTROPHILS # (AUTO) 11.9 K/uL (1.8-8.9); NEUTROPHILS % (AUTO) 81.9 % (38.5-71.5); PLATELET COUNT (AUTO) 374 K/uL (179-408); RED BLOOD CELL COUNT(AUTO) 4.48 MIL/uL (3.63-4.92)
[2019-08-18 12:31] LABS: WHITE BLOOD COUNT (AUTO) 14.5 K/uL (3.8-11.8)
[2019-08-18] MEDS: FERROUS SULFATE 330 MG/7.5 ML UDC- FOR SA ONLY GT SCH (20:06)
[2019-08-18] MEDS: MELATONIN 5MG TABLET GT SCH (20:07)
[2019-08-18] MEDS: ADAPALENE 0.3% TP SCH (20:08)
[2019-08-18] MEDS: MINERAL OIL/PETROLATUM,WHITE 57 GM TUBE TP SCH (20:08)
[2019-08-18] MEDS: RANITIDINE 300 MG GT SCH (20:08)
[2019-08-18] MEDS: MULTIVIT, IRON, MIN NO. 8, FA TABLET GT SCH (20:08)
--- NOTE | 2019-08-18 20:30 | NUR ---
Temperature is 98.2, patient is resting comfortably in bed, no signs of any distress noted, 02 sat is 98%, kept clean and comfortable, will continue monitor.
[2019-08-18 21:25] VITALS: BP 99/61
[2019-08-18 22:00] VITALS: BP 106/51
[2019-08-19 00:05] VITALS: BP 95/54
[2019-08-19 02:00] VITALS: BP 96/52
[2019-08-19] MEDS: hydrALAZINE HCL 10 MG TABLET GT SCH ×3 (05:04→22:00)
[2019-08-19] MEDS: CALCIUM CARBONATE 500 MG TAB.CHEW GT SCH ×2 (05:04→17:25)
[2019-08-19 06:38] LABS: BASOPHILS # (AUTO) 0.1 K/uL (0.0-8.0); BASOPHILS % (AUTO) 0.8 % (0.0-2.0); EOSINOPHILS # (AUTO) 0.3 K/uL (0.0-0.7); EOSINOPHILS % (AUTO) 4.5 % (0.0-7.0); HEMATOCRIT 38.8 % (31.2-41.9); HEMOGLOBIN 13.1 g/dL (10.9-14.3); LYMPHOCYTES # (AUTO) 1.6 K/uL (20.0-40.0); LYMPHOCYTES % (AUTO) 22.3 % (20.5-51.5); MEAN CORPUSCULAR HEMOGLOBIN 30.8 uug (24.7-32.8); MEAN CORPUSCULAR HGB CONC 34 g/dL (32.3-35.6); MEAN CORPUSCULAR VOLUME 91.1 fL (75.5-95.3); MONOCYTES # (AUTO) 0.5 K/uL (2.0-10.0); MONOCYTES % (AUTO) 7.6 % (0.0-11.0); NEUTROPHILS # (AUTO) 4.7 K/uL (1.8-8.9); NEUTROPHILS % (AUTO) 64.8 % (38.5-71.5); PLATELET COUNT (AUTO) 320 K/uL (179-408); RED BLOOD CELL COUNT(AUTO) 4.26 MIL/uL (3.63-4.92); WHITE BLOOD COUNT (AUTO) 7.2 K/uL (3.8-11.8)
[2019-08-19 06:48] VITALS: BP 101/59
[2019-08-19 06:55] LABS: ALANINE AMINOTRANSFERASE 51 U/L (14-59); ALKALINE PHOSPHATASE 88 U/L (50-136); ASPARTATE AMINOTRANSFERASE 22 U/L (15-37); BILIRUBIN,TOTAL 0.2 mg/dL (0.2-1.0); CARBON DIOXIDE 29 mmol/L (21-32); CHLORIDE 103 mmol/L (98-107); CREATININE 0.5 mg/dL (0.6-1.3); GLUCOSE 96 mg/dL (74-106); POTASSIUM 4.6 mmol/L (3.5-5.1); TOTAL PROTEIN, SERUM 7.7 g/dL (6.4-8.2); UREA NITROGEN, BLOOD 17 mg/dL (7-18)
[2019-08-19 08:00] VITALS: BP 98/54
--- NOTE | 2019-08-19 08:00 | NUR ---
Pt afebrile temp 98.4,hr 104,no respiratory distress,on close observation.
[2019-08-19] MEDS: HYDROGEN PEROXIDE 3% 118 ML BOTTLE TOP SCH ×2 (08:18→21:00)
[2019-08-19] MEDS: levETIRAcetam 500 MG/5 ML LIQUID UDC GT SCH ×2 (08:24→20:04)
[2019-08-19] MEDS: ACIDOPHILUS/BULGARICUS CHEW TAB GT SCH ×2 (08:25→20:05)
[2019-08-19] MEDS: LACOSAMIDE 100 MG/10 ML UDC GT SCH ×2 (08:25→20:04)
[2019-08-19] MEDS: METOPROLOL TARTRATE 50 MG TABLET GT SCH ×2 (08:26→20:06)
[2019-08-19] MEDS: COD LIVER OIL/ZINC OXIDE OINT 113 GM TUBE TP SCH ×2 (08:27→20:12)
[2019-08-19] MEDS: AMLODIPINE 10 MG TABLET GT SCH (08:27)
[2019-08-19] MEDS: NUTRISOURCE FIBER 4 GM PACKET GT SCH (08:27)
[2019-08-19] MEDS: HEPARIN SODIUM,PORCINE 5,000 UNITS/ML VIAL SQ SCH ×2 (08:29→20:10)
[2019-08-19] MEDS: CLINDAMYCIN TP SCH (09:45)
--- NOTE | 2019-08-19 17:30 | NUR ---
Pt has a elevated temp of 100.4 rectally,pt is sweating Hr 161,Dr kauffman aware ,no new orders at this time.
--- NOTE | 2019-08-19 18:00 | NUR ---
Mother FaceTime with pt at this time.
--- NOTE | 2019-08-19 18:56 | NUR ---
Seen and examined by Anca Inspector Assembly with new orders noted,bladder scanner done Result 130,Anca aware with orders to discontinue bladder scanner.,orders carried out.temp recheck 98.9,tylenol was given and cooling measures done.Abdoul pt's mother aware of the new orders ,and agreed with plan of care.
[2019-08-19] MEDS: FERROUS SULFATE 330 MG/7.5 ML UDC- FOR SA ONLY GT SCH (20:04)
[2019-08-19] MEDS: MELATONIN 5MG TABLET GT SCH (20:06)
[2019-08-19] MEDS: MULTIVIT, IRON, MIN NO. 8, FA TABLET GT SCH (20:09)
[2019-08-19] MEDS: RANITIDINE 300 MG GT SCH (20:09)
[2019-08-19] MEDS: MINERAL OIL/PETROLATUM,WHITE 57 GM TUBE TP SCH (20:12)
[2019-08-19] MEDS: ADAPALENE 0.3% TP SCH (20:13)
[2019-08-19 21:43] VITALS: BP 131/80
[2019-08-20] MEDS: JEVITY 1.2 1000 ML LIQUID GT PRN (04:00)
[2019-08-20] MEDS: hydrALAZINE HCL 10 MG TABLET GT SCH ×3 (06:00→22:00)
[2019-08-20] MEDS: CALCIUM CARBONATE 500 MG TAB.CHEW GT SCH ×2 (06:00→17:38)
[2019-08-20] MEDS: ACETAMINOPHEN 650 MG/20 ML UDC- SA PATIENTS-PAIN ONLY GT PRN (06:01)
[2019-08-20 06:33] LABS: BASOPHILS % (AUTO) 0.4 % (0.0-2.0); EOSINOPHILS # (AUTO) 0.3 K/uL (0.0-0.7); EOSINOPHILS % (AUTO) 3.3 % (0.0-7.0); HEMATOCRIT 39.1 % (31.2-41.9); HEMOGLOBIN 13.4 g/dL (10.9-14.3); LYMPHOCYTES # (AUTO) 1.5 K/uL (20.0-40.0); LYMPHOCYTES % (AUTO) 16.3 % (20.5-51.5); MEAN CORPUSCULAR HGB CONC 34 g/dL (32.3-35.6); MEAN CORPUSCULAR VOLUME 90.2 fL (75.5-95.3); MONOCYTES # (AUTO) 0.7 K/uL (2.0-10.0); MONOCYTES % (AUTO) 7.6 % (0.0-11.0); NEUTROPHILS # (AUTO) 6.8 K/uL (1.8-8.9); NEUTROPHILS % (AUTO) 72.4 % (38.5-71.5); PLATELET COUNT (AUTO) 332 K/uL (179-408); RED BLOOD CELL COUNT(AUTO) 4.34 MIL/uL (3.63-4.92); WHITE BLOOD COUNT (AUTO) 9.4 K/uL (3.8-11.8)
[2019-08-20 06:39] LABS: CREATININE 0.6 mg/dL (0.6-1.3); POTASSIUM 4.1 mmol/L (3.5-5.1)
[2019-08-20 08:00] VITALS: BP 95/52
[2019-08-20 08:32] LABS: *BILIRUBIN,URIN NEGATIVE (NEGATIVE); *BLOOD, URINE NEGATIVE (NEGATIVE); *CLARITY,URINE SLIGHTLY CLOUDY (CLEAR); *COLOR,URINE YELLOW (YELLOW); *KETONES,URINE NEGATIVE (NEGATIVE); *UROBILINOGEN,URINE 0.2 E.U./dl (NORMAL); LEUKOCYTE ESTERASE ,URINE NEGATIVE (NEGATIVE); NITRITE, URINE NEGATIVE (NEGATIVE); PH,URINE 7.5 (5.0-8.0); UGLUCOSE NEGATIVE (NEGATIVE)
[2019-08-20 08:48] LABS: BACTERIA,URINE NONE SEEN /HPF (NONE SEEN); MUCUS,URINE FEW /LPF (0-FEW); RBC,URINE 0-3 /HPF (0-3); SQUAMOUS EPITHELIAL CELL,UR MODERATE /HPF (NONE SEEN); URINE AMORPHOUS PHOSPHATES MANY /HPF; WBC,URINE 0-3 /HPF (0-3)
[2019-08-20] MEDS: LACOSAMIDE 100 MG/10 ML UDC GT SCH ×2 (08:48→20:10)
[2019-08-20] MEDS: levETIRAcetam 500 MG/5 ML LIQUID UDC GT SCH ×2 (08:48→20:10)
[2019-08-20] MEDS: ACIDOPHILUS/BULGARICUS CHEW TAB GT SCH ×2 (08:49→20:10)
[2019-08-20] MEDS: METOPROLOL TARTRATE 50 MG TABLET GT SCH ×2 (08:51→20:40)
[2019-08-20] MEDS: AMLODIPINE 10 MG TABLET GT SCH (08:52)
[2019-08-20] MEDS: NUTRISOURCE FIBER 4 GM PACKET GT SCH (08:52)
[2019-08-20] MEDS: CLINDAMYCIN TP SCH (08:53)
[2019-08-20] MEDS: COD LIVER OIL/ZINC OXIDE OINT 113 GM TUBE TP SCH ×2 (08:53→20:15)
[2019-08-20] MEDS: HEPARIN SODIUM,PORCINE 5,000 UNITS/ML VIAL SQ SCH ×2 (08:54→20:15)
[2019-08-20] MEDS: HYDROGEN PEROXIDE 3% 118 ML BOTTLE TOP SCH ×2 (09:44→21:52)
--- NOTE | 2019-08-20 11:53 | NUR ---
SAPNA received a phone call from Viv at [facility] [phone] in response to the APS report that this SW had made on 08/10 (see SS note dated 08/10). This SW discussed the reason for the referral with Viv. Viv stated that due to the current COVID-19 restrictions on her job, she would not be able to visit the patient. SAPNA expressed understanding. However Viv stated that she will be consulting about this case and would call this SW back in a couple of weeks with an update on the plan of action from [facility]. SAPNA expressed understanding, and thanked Viv for her call.
--- NOTE | 2019-08-20 14:00 | NUR ---
Central Office Installer care done by Dr Bai.
[2019-08-20] MEDS: FERROUS SULFATE 330 MG/7.5 ML UDC- FOR SA ONLY GT SCH (20:10)
[2019-08-20] MEDS: MELATONIN 5MG TABLET GT SCH (20:12)
[2019-08-20] MEDS: RANITIDINE 300 MG GT SCH (20:13)
[2019-08-20] MEDS: MULTIVIT, IRON, MIN NO. 8, FA TABLET GT SCH (20:14)
[2019-08-20] MEDS: MINERAL OIL/PETROLATUM,WHITE 57 GM TUBE TP SCH (20:15)
[2019-08-20] MEDS: ADAPALENE 0.3% TP SCH (20:15)
[2019-08-20 21:23] VITALS: BP 131/62
[2019-08-21] MEDS: JEVITY 1.2 1000 ML LIQUID GT PRN ×2 (00:30→20:00)
[2019-08-21] MEDS: hydrALAZINE HCL 10 MG TABLET GT SCH ×3 (06:00→22:00)
[2019-08-21] MEDS: CALCIUM CARBONATE 500 MG TAB.CHEW GT SCH ×2 (06:04→17:45)
[2019-08-21 08:00] VITALS: BP 115/63
[2019-08-21] MEDS: ACIDOPHILUS/BULGARICUS CHEW TAB GT SCH ×2 (08:45→20:12)
[2019-08-21] MEDS: levETIRAcetam 500 MG/5 ML LIQUID UDC GT SCH ×2 (08:45→20:08)
[2019-08-21] MEDS: METOPROLOL TARTRATE 50 MG TABLET GT SCH ×2 (08:46→20:14)
[2019-08-21] MEDS: NUTRISOURCE FIBER 4 GM PACKET GT SCH (08:46)
[2019-08-21] MEDS: AMLODIPINE 10 MG TABLET GT SCH (08:46)
[2019-08-21] MEDS: CLINDAMYCIN TP SCH (08:47)
[2019-08-21] MEDS: COD LIVER OIL/ZINC OXIDE OINT 113 GM TUBE TP SCH ×2 (08:47→20:19)
[2019-08-21] MEDS: HEPARIN SODIUM,PORCINE 5,000 UNITS/ML VIAL SQ SCH ×2 (08:49→20:19)
[2019-08-21] MEDS: LACOSAMIDE 100 MG/10 ML UDC GT SCH ×2 (08:50→20:10)
[2019-08-21] MEDS: HYDROGEN PEROXIDE 3% 118 ML BOTTLE TOP SCH ×2 (09:15→21:49)
[2019-08-21] MEDS: ACETAMINOPHEN 650 MG/20 ML UDC- SA PATIENTS-PAIN ONLY GT PRN (10:00)
--- NOTE | 2019-08-21 14:34 | NUR ---
SAPNA notified patient's mother Abdoul via email that the next IDT meeting for the patient has been scheduled for 08/26/2019 at 11am. In this email, SAPNA also asked Abdoul to respond back to this SW and let SAPNA know if Abdoul would like to join the meeting, so SAPNA can then make arrangements for Abdoul to participate via speaker phone.
--- NOTE | 2019-08-21 18:40 | NUR ---
SEEN BY DR. LON JACOBS.
[2019-08-21] MEDS: FERROUS SULFATE 330 MG/7.5 ML UDC- FOR SA ONLY GT SCH (20:11)
[2019-08-21] MEDS: MELATONIN 5MG TABLET GT SCH (20:15)
[2019-08-21] MEDS: RANITIDINE 300 MG GT SCH (20:16)
[2019-08-21] MEDS: MULTIVIT, IRON, MIN NO. 8, FA TABLET GT SCH (20:16)
[2019-08-21] MEDS: ADAPALENE 0.3% TP SCH (20:19)
[2019-08-21] MEDS: MINERAL OIL/PETROLATUM,WHITE 57 GM TUBE TP SCH (20:19)
[2019-08-21 20:47] VITALS: BP 139/79
[2019-08-22] MEDS: hydrALAZINE HCL 10 MG TABLET GT SCH ×3 (05:56→21:42)
[2019-08-22] MEDS: CALCIUM CARBONATE 500 MG TAB.CHEW GT SCH ×2 (05:56→17:10)
[2019-08-22 08:00] VITALS: BP 111/72
[2019-08-22] MEDS: ACIDOPHILUS/BULGARICUS CHEW TAB GT SCH ×2 (08:39→20:32)
[2019-08-22] MEDS: levETIRAcetam 500 MG/5 ML LIQUID UDC GT SCH ×2 (08:39→20:31)
[2019-08-22] MEDS: METOPROLOL TARTRATE 50 MG TABLET GT SCH ×2 (08:40→20:32)
[2019-08-22] MEDS: NUTRISOURCE FIBER 4 GM PACKET GT SCH (08:41)
[2019-08-22] MEDS: AMLODIPINE 10 MG TABLET GT SCH (08:41)
[2019-08-22] MEDS: COD LIVER OIL/ZINC OXIDE OINT 113 GM TUBE TP SCH ×2 (08:42→20:33)
[2019-08-22] MEDS: HEPARIN SODIUM,PORCINE 5,000 UNITS/ML VIAL SQ SCH ×2 (08:47→20:33)
[2019-08-22] MEDS: LACOSAMIDE 100 MG/10 ML UDC GT SCH ×2 (08:50→20:35)
[2019-08-22] MEDS: ACETAMINOPHEN 650 MG/20 ML UDC- SA PATIENTS-PAIN ONLY GT PRN (08:56)
[2019-08-22] MEDS: CLINDAMYCIN TP SCH (09:00)
[2019-08-22] MEDS: HYDROGEN PEROXIDE 3% 118 ML BOTTLE TOP SCH ×2 (09:16→21:13)
--- NOTE | 2019-08-22 19:02 | NUR ---
Patient face grimace noted in morning and afternoon. Tylenol liquid 20ml every 4 hours given. will continue monitor
[2019-08-22] MEDS: FERROUS SULFATE 330 MG/7.5 ML UDC- FOR SA ONLY GT SCH (20:31)
[2019-08-22] MEDS: RANITIDINE 300 MG GT SCH (20:32)
[2019-08-22] MEDS: MELATONIN 5MG TABLET GT SCH (20:32)
[2019-08-22] MEDS: MULTIVIT, IRON, MIN NO. 8, FA TABLET GT SCH (20:32)
[2019-08-22] MEDS: MINERAL OIL/PETROLATUM,WHITE 57 GM TUBE TP SCH (20:33)
[2019-08-22] MEDS: ADAPALENE 0.3% TP SCH (20:33)
--- NOTE | 2019-08-22 21:00 | NUR ---
RESIDENT ON VIMPAT 100MG/10CC, GIVE 20CC (200MG) VIA GT EVERY 12 HOURS AT 0800 AND 2000 FOR SEIZURES. VIMPAT ORDER STILL ONGOING, HOWEVER, VIMPAT ORDER ON [employer] PRIOR TO ADMINISTRATION FOR 08/22/2019 @ 2000. ACCORDING TO [facility] MATT, ORDER DUE TO AWAITING VIMPAT FROM [facility]. CHARGE NURSE AWARE THAT WE STILL RECEIVE VIMPAT FROM [facility] AND HAVE SOME IN STOCK. I NOTIFIED MATT THAT [facility] AND THAT IF HE COULD CREATE AND VERIFY A NEW VIMPAT ORDER ON [employer] SO I CAN DOCUMENT SCHEDULED ADMINISTRATION ORDERED FOR VIMPAT ON FOR 08/22/2019 AT 2000. MATT CREATED A NEW ORDER BUT HAD THE FIRST SCHEDULED DOSE ON 08/23/2019 0800 INSTEAD OF 08/22/20191999. I ADMINISTERED SCHEDULED VIMPAT ORDERED AND SIGNED VIMPAT ORDER ON [employer] ANYWAY TO COVER SCHEDULED VIMPAT FOR 08/22/2019 (SIGNED @ 2034.) I WILL ENDORSE TO AM CHARGE NURSE TO NOTIFY PHARMACY TO FIX SCHEDULED VIMPAT ORDER ON [employer].
[2019-08-22 22:36] VITALS: BP 132/80
[2019-08-23] MEDS: JEVITY 1.2 1000 ML LIQUID GT PRN ×2 (02:08→21:23)
[2019-08-23] MEDS: CALCIUM CARBONATE 500 MG TAB.CHEW GT SCH ×2 (05:10→18:04)
[2019-08-23] MEDS: hydrALAZINE HCL 10 MG TABLET GT SCH ×3 (05:10→21:30)
[2019-08-23] MEDS: ACIDOPHILUS/BULGARICUS CHEW TAB GT SCH ×2 (08:20→20:36)
[2019-08-23] MEDS: levETIRAcetam 500 MG/5 ML LIQUID UDC GT SCH ×2 (08:20→20:35)
[2019-08-23] MEDS: METOPROLOL TARTRATE 50 MG TABLET GT SCH ×2 (08:23→20:36)
[2019-08-23] MEDS: HYDROGEN PEROXIDE 3% 118 ML BOTTLE TOP SCH ×3 (08:25→21:38)
[2019-08-23] MEDS: AMLODIPINE 10 MG TABLET GT SCH (08:25)
[2019-08-23] MEDS: NUTRISOURCE FIBER 4 GM PACKET GT SCH (08:25)
[2019-08-23] MEDS: CLINDAMYCIN TP SCH (08:26)
[2019-08-23] MEDS: COD LIVER OIL/ZINC OXIDE OINT 113 GM TUBE TP SCH ×2 (08:26→20:59)
[2019-08-23] MEDS: HEPARIN SODIUM,PORCINE 5,000 UNITS/ML VIAL SQ SCH ×2 (08:41→20:36)
[2019-08-23 14:16] VITALS: BP 99/57
[2019-08-23] MEDS: ACETAMINOPHEN 650 MG/20 ML UDC- SA PATIENTS-PAIN ONLY GT PRN (14:47)
[2019-08-23] MEDS: LORAZEPAM 0.5 MG TABLET GT PRN (15:55)
--- NOTE | 2019-08-23 16:19 | NUR ---
PT. WAS OBSERVED WITH ESCALATING JAW CLENCHING,LOUD GRINDING TEETH ,FACIAL GRIMACING,FLUSHING FACE ,INCREASED CONTINUOUS PERSPIRATION AND GENERALIZED MUSCLE TENSING .OTHER MEASURES NOT EFFECTIVE TO IMPROVE HER COMFORT LIKE FREQUENT REPOSITIONING,TRACHEAL SUCTIONING ,PT. KEPT CLEAN AND DRY AND PREVIOUS ADM. OF TYLENOL AND OBSERVED WITH HR.INCREASING UP TO 134X' WHEN TENSIONING MUSCLES .ATIVAN WAS ADM. ORDERED AND FREQUENT VISUAL CHECKS DONE FOR PT'S COMFORT AND SAFETY.
--- NOTE | 2019-08-23 19:02 | NUR ---
Patient facetimed with mother this shift
[2019-08-23] MEDS: FERROUS SULFATE 330 MG/7.5 ML UDC- FOR SA ONLY GT SCH (20:35)
[2019-08-23] MEDS: LACOSAMIDE 100 MG/10 ML UDC GT SCH (20:35)
[2019-08-23] MEDS: MELATONIN 5MG TABLET GT SCH (20:36)
[2019-08-23] MEDS: MULTIVIT, IRON, MIN NO. 8, FA TABLET GT SCH (20:36)
[2019-08-23] MEDS: RANITIDINE 300 MG GT SCH (20:36)
[2019-08-23] MEDS: MINERAL OIL/PETROLATUM,WHITE 57 GM TUBE TP SCH (20:59)
[2019-08-23] MEDS: ADAPALENE 0.3% TP SCH (20:59)
[2019-08-23 21:58] VITALS: BP 135/89
[2019-08-24] MEDS: hydrALAZINE HCL 10 MG TABLET GT SCH ×3 (05:10→21:24)
[2019-08-24] MEDS: CALCIUM CARBONATE 500 MG TAB.CHEW GT SCH ×2 (05:10→18:00)
[2019-08-24] MEDS: levETIRAcetam 500 MG/5 ML LIQUID UDC GT SCH ×2 (08:56→20:30)
[2019-08-24] MEDS: LACOSAMIDE 100 MG/10 ML UDC GT SCH ×2 (08:57→20:30)
[2019-08-24] MEDS: NUTRISOURCE FIBER 4 GM PACKET GT SCH (08:58)
[2019-08-24] MEDS: CLINDAMYCIN TP SCH (08:58)
[2019-08-24] MEDS: ACIDOPHILUS/BULGARICUS CHEW TAB GT SCH ×2 (08:58→20:30)
[2019-08-24] MEDS: COD LIVER OIL/ZINC OXIDE OINT 113 GM TUBE TP SCH ×2 (08:58→20:30)
[2019-08-24] MEDS: HYDROGEN PEROXIDE 3% 118 ML BOTTLE TOP SCH ×2 (08:58→21:50)
[2019-08-24] MEDS: METOPROLOL TARTRATE 50 MG TABLET GT SCH ×2 (09:02→20:30)
[2019-08-24] MEDS: AMLODIPINE 10 MG TABLET GT SCH (09:03)
[2019-08-24] MEDS: HEPARIN SODIUM,PORCINE 5,000 UNITS/ML VIAL SQ SCH ×2 (09:11→20:31)
[2019-08-24 11:23] VITALS: BP 100/47
[2019-08-24] MEDS: RANITIDINE 300 MG GT SCH (20:30)
[2019-08-24] MEDS: MELATONIN 5MG TABLET GT SCH (20:30)
[2019-08-24] MEDS: MINERAL OIL/PETROLATUM,WHITE 57 GM TUBE TP SCH (20:30)
[2019-08-24] MEDS: MULTIVIT, IRON, MIN NO. 8, FA TABLET GT SCH (20:30)
[2019-08-24] MEDS: ADAPALENE 0.3% TP SCH (20:30)
[2019-08-24] MEDS: FERROUS SULFATE 330 MG/7.5 ML UDC- FOR SA ONLY GT SCH (20:30)
[2019-08-24 23:03] VITALS: BP 135/78
[2019-08-25] MEDS: hydrALAZINE HCL 10 MG TABLET GT SCH ×3 (05:24→22:00)
[2019-08-25] MEDS: CALCIUM CARBONATE 500 MG TAB.CHEW GT SCH ×2 (05:24→17:15)
[2019-08-25 08:00] VITALS: BP 112/58
[2019-08-25] MEDS: LACOSAMIDE 100 MG/10 ML UDC GT SCH ×2 (08:59→19:52)
[2019-08-25] MEDS: levETIRAcetam 500 MG/5 ML LIQUID UDC GT SCH ×2 (08:59→19:51)
[2019-08-25] MEDS: HYDROGEN PEROXIDE 3% 118 ML BOTTLE TOP SCH ×2 (09:05→21:12)
[2019-08-25] MEDS: METOPROLOL TARTRATE 50 MG TABLET GT SCH ×2 (09:11→20:35)
[2019-08-25] MEDS: ACIDOPHILUS/BULGARICUS CHEW TAB GT SCH ×2 (09:11→20:35)
[2019-08-25] MEDS: NUTRISOURCE FIBER 4 GM PACKET GT SCH (09:13)
[2019-08-25] MEDS: AMLODIPINE 10 MG TABLET GT SCH (09:13)
[2019-08-25] MEDS: HEPARIN SODIUM,PORCINE 5,000 UNITS/ML VIAL SQ SCH ×2 (09:14→20:37)
[2019-08-25] MEDS: COD LIVER OIL/ZINC OXIDE OINT 113 GM TUBE TP SCH ×2 (09:15→20:36)
[2019-08-25] MEDS: CLINDAMYCIN TP SCH (09:15)
--- NOTE | 2019-08-25 10:01 | NUR ---
SAPNA has not yet heard back from patient's mother Abdoul in response to the email that SAPNA sent Abdoul on 08/20 notifying her of the monthly team meeting scheduled for 08/25 and asking Abdoul to respond to this SAPNA to let SAPNA know if Abdoul wanted to participate in the team meeting via conference call. SAPNA sent a follow-up email this morning at 9:58am to patient's mother Abdoul asking her to let this SW know by 9am on 08/25 if she wanted to participate in patient's monthly team meeting via conference call (initial email was sent to Abdoul on 08/20, see previous SS note dated 08/20). Front Desk Team Member Nick leblanc.
--- NOTE | 2019-08-25 12:00 | NUR ---
SEEN BY DR. BRITTANY Davila AND WITH NNO.
[2019-08-25] MEDS: JEVITY 1.2 1000 ML LIQUID GT PRN (13:59)
--- NOTE | 2019-08-25 16:18 | NUR ---
NEW ORDER CARRIED OUT FROM QUAN Sharma SUGGESTED BY CARLA GASPAR PHARMACIST FOR [employer] TO COME AND EVALUATE THE EFFECTIVENESS OF ADAPALENE 0.3% (WHIP[employer] STATED THAT SHE MAY BE CALLED BACK IN 3 MONTHS)PT. STILL HAS ACNE SKIN LESIONS.MESSAGE WAS LEFT TO PAYMASTER OF PURSES TO F/U.
[2019-08-25] MEDS: FERROUS SULFATE 330 MG/7.5 ML UDC- FOR SA ONLY GT SCH (20:35)
[2019-08-25] MEDS: RANITIDINE 300 MG GT SCH (20:36)
[2019-08-25] MEDS: MULTIVIT, IRON, MIN NO. 8, FA TABLET GT SCH (20:36)
[2019-08-25] MEDS: MELATONIN 5MG TABLET GT SCH (20:36)
[2019-08-25] MEDS: MINERAL OIL/PETROLATUM,WHITE 57 GM TUBE TP SCH (20:36)
[2019-08-25] MEDS: ADAPALENE 0.3% TP SCH (20:36)
[2019-08-25 20:40] VITALS: BP 151/88
[2019-08-25 22:00] VITALS: BP 98/52
[2019-08-26] MEDS: JEVITY 1.2 1000 ML LIQUID GT PRN (05:00)
[2019-08-26] MEDS: hydrALAZINE HCL 10 MG TABLET GT SCH ×3 (05:47→22:00)
[2019-08-26] MEDS: CALCIUM CARBONATE 500 MG TAB.CHEW GT SCH ×2 (05:47→17:10)
[2019-08-26 05:51] VITALS: BP 103/54
[2019-08-26 08:00] VITALS: BP 103/61
[2019-08-26] MEDS: ACIDOPHILUS/BULGARICUS CHEW TAB GT SCH ×2 (08:28→20:02)
[2019-08-26] MEDS: levETIRAcetam 500 MG/5 ML LIQUID UDC GT SCH ×2 (08:28→20:01)
[2019-08-26] MEDS: HEPARIN SODIUM,PORCINE 5,000 UNITS/ML VIAL SQ SCH ×2 (08:29→21:19)
[2019-08-26] MEDS: LACOSAMIDE 100 MG/10 ML UDC GT SCH ×2 (08:33→20:01)
[2019-08-26] MEDS: NUTRISOURCE FIBER 4 GM PACKET GT SCH (08:35)
[2019-08-26] MEDS: AMLODIPINE 10 MG TABLET GT SCH (08:35)
[2019-08-26] MEDS: METOPROLOL TARTRATE 50 MG TABLET GT SCH ×2 (08:35→20:02)
[2019-08-26] MEDS: CLINDAMYCIN TP SCH (08:37)
[2019-08-26] MEDS: COD LIVER OIL/ZINC OXIDE OINT 113 GM TUBE TP SCH ×2 (08:37→20:02)
[2019-08-26] MEDS: HYDROGEN PEROXIDE 3% 118 ML BOTTLE TOP SCH ×2 (09:20→20:57)
--- NOTE | 2019-08-26 13:13 | NUR ---
Pharmacy Update from Today's 08/26/19 IDT Meeting VS: Temp 97.9 HR 88 BP 114/69 LABS: (from 08/20/19) Wbc 9.4 H/H 13.4/39.1 Plt 332 Na 137 K 4.1 Cl 101 CO2 28 BUN/SCr 14/0.6 BS 99 Ca 9.9 MEDICATION USE REVIEWED: > Pt not on any anti-psych medications > Pt on Keppra 1000mg q12hr since 03/11/19. CrCl >100, ok per renal function. Neurology continues to follow and adjust > Pt on Vimpat 200mg q12hr since 04/18/19 per neurology > Pt on ativan 0.5mg q12h PRN agitation m/b tachycardia, increased perspiration, grimacing, biting lips, musc tension, started 04/06 per neurology. Used x2 in July, effective per staff > Pt on Heparin 5000mg q12hr for DVT prophylaxis. No bleeding noted; Last plt 332 > On Norvasc 10mg daily, hydralazine 10mg q8hr, lopressor 50mg q12hr with hold parameters. Last BP 108/58 > Pt on famotidine 20mg daily since 08/26/19, ok dose per renal function PRN MED USAGE: (July) Tylenol for pain used x2 Tylenol for fever used x0 Hydralazine for SBP>180 used x0 Artificial tears PRN used x1 Lorazepam PRN seizures/spasms used x2 for spasms [place] used x0 NEW ORDERS NOTED: > Benadryl 25mg q6h prn rash added 07/30 (pt developed reaction after mother's lotion from home. none used, resolved) > Hydrocortisone 1% cream added 07/29 > Per rx rec, due to FDA recall of all ranitidine formulations, changed to famotidine 20mg daily with MD in agreement Patient was reviewed and discussed in depth with all medication changes and issues noted per team. Family in attendance via phone conference (d/t [place] regulations). No medication concerns or issues noted per family as well. All med changes reported, no further recs at this time. Will continue to follow
--- NOTE | 2019-08-26 14:40 | NUR ---
Dermatology consultation order, along with a copy of patient's face sheet, were faxed to Dr. Cabrera at [phone] (tel # [phone]). CARLOS martin.
--- NOTE | 2019-08-26 16:00 | NUR ---
FT done with patient's mother.
--- NOTE | 2019-08-26 16:22 | NUR ---
INTERDISCIPLINARY PLAN OF CARE CONFERENCE was held today. Patient's mother Abdoul participated in the meeting via speaker phone. Dr. Ramos and the Interdisciplinary Team reviewed the current plan of care in detail. RN reported on patient's current medical condition, recent episodes of elevated fever, and findings of recent lab findings and blood cultures. See RN IDT conference notes. Rehab reported that patient is being seen by PT and OT for splint management. See all disciplines IDT notes and physician's progress notes for additional details. Abdoul's questions were addressed by the IDT team and by Dr. Ramos, but at times Abdoul presented with an argumentative tone, accusatory, and was uncooperative with following the time limits that were allotted for family members. It was decided that Donor Recruiter Nick Goldberg would follow-up with Abdoul after the meeting, and Abdoul expressed agreement.
[2019-08-26 20:00] VITALS: BP 139/86
[2019-08-26] MEDS: FERROUS SULFATE 330 MG/7.5 ML UDC- FOR SA ONLY GT SCH (20:01)
[2019-08-26] MEDS: RANITIDINE 300 MG GT SCH (20:02)
[2019-08-26] MEDS: ADAPALENE 0.3% TP SCH (20:02)
[2019-08-26] MEDS: MULTIVIT, IRON, MIN NO. 8, FA TABLET GT SCH (20:02)
[2019-08-26] MEDS: MELATONIN 5MG TABLET GT SCH (20:02)
[2019-08-26] MEDS: MINERAL OIL/PETROLATUM,WHITE 57 GM TUBE TP SCH (20:02)
[2019-08-27] MEDS: CALCIUM CARBONATE 500 MG TAB.CHEW GT SCH ×2 (05:13→17:01)
[2019-08-27] MEDS: hydrALAZINE HCL 10 MG TABLET GT SCH ×3 (05:13→22:00)
[2019-08-27] MEDS: JEVITY 1.2 1000 ML LIQUID GT PRN ×2 (05:14→16:45)
[2019-08-27 08:00] VITALS: BP 112/78
[2019-08-27] MEDS: ACIDOPHILUS/BULGARICUS CHEW TAB GT SCH ×2 (08:17→20:30)
[2019-08-27] MEDS: levETIRAcetam 500 MG/5 ML LIQUID UDC GT SCH ×2 (08:17→20:29)
[2019-08-27] MEDS: LACOSAMIDE 100 MG/10 ML UDC GT SCH ×2 (08:17→20:29)
[2019-08-27] MEDS: AMLODIPINE 10 MG TABLET GT SCH (08:18)
[2019-08-27] MEDS: METOPROLOL TARTRATE 50 MG TABLET GT SCH ×2 (08:18→20:30)
[2019-08-27] MEDS: NUTRISOURCE FIBER 4 GM PACKET GT SCH (08:19)
[2019-08-27] MEDS: COD LIVER OIL/ZINC OXIDE OINT 113 GM TUBE TP SCH ×2 (08:20→20:31)
[2019-08-27] MEDS: CLINDAMYCIN TP SCH (08:20)
[2019-08-27] MEDS: HEPARIN SODIUM,PORCINE 5,000 UNITS/ML VIAL SQ SCH ×2 (08:21→20:38)
[2019-08-27] MEDS: HYDROGEN PEROXIDE 3% 118 ML BOTTLE TOP SCH ×2 (09:29→21:24)
--- NOTE | 2019-08-27 11:00 | NUR ---
Seen and examined by Dr Sosa with new orders noted. Addendum: 08/27/19 at 1743 by HANNAH TAY RN no new orders
--- NOTE | 2019-08-27 16:50 | NUR ---
FT DONE WITH PATIENT'S MOTHER.
[2019-08-27 20:00] VITALS: BP 129/85
[2019-08-27] MEDS: FERROUS SULFATE 330 MG/7.5 ML UDC- FOR SA ONLY GT SCH (20:29)
[2019-08-27] MEDS: MULTIVIT, IRON, MIN NO. 8, FA TABLET GT SCH (20:30)
[2019-08-27] MEDS: MELATONIN 5MG TABLET GT SCH (20:30)
[2019-08-27] MEDS: ADAPALENE 0.3% TP SCH (20:31)
[2019-08-27] MEDS: MINERAL OIL/PETROLATUM,WHITE 57 GM TUBE TP SCH (20:31)
[2019-08-27 22:10] VITALS: BP 96/57
[2019-08-28] MEDS: hydrALAZINE HCL 10 MG TABLET GT SCH ×3 (06:00→22:00)
[2019-08-28 06:10] VITALS: BP 98/65
[2019-08-28] MEDS: FAMOTIDINE 20 MG TABLET GT SCH (06:10)
[2019-08-28] MEDS: CALCIUM CARBONATE 500 MG TAB.CHEW GT SCH ×2 (06:10→17:05)
[2019-08-28 08:00] VITALS: BP 116/59
[2019-08-28] MEDS: LACOSAMIDE 100 MG/10 ML UDC GT SCH ×2 (08:18→20:03)
[2019-08-28] MEDS: levETIRAcetam 500 MG/5 ML LIQUID UDC GT SCH ×2 (08:18→20:03)
[2019-08-28] MEDS: METOPROLOL TARTRATE 50 MG TABLET GT SCH ×2 (08:19→20:06)
[2019-08-28] MEDS: ACIDOPHILUS/BULGARICUS CHEW TAB GT SCH ×2 (08:19→20:05)
[2019-08-28] MEDS: AMLODIPINE 10 MG TABLET GT SCH (08:21)
[2019-08-28] MEDS: NUTRISOURCE FIBER 4 GM PACKET GT SCH (08:21)
[2019-08-28] MEDS: HEPARIN SODIUM,PORCINE 5,000 UNITS/ML VIAL SQ SCH ×2 (08:22→21:39)
[2019-08-28] MEDS: COD LIVER OIL/ZINC OXIDE OINT 113 GM TUBE TP SCH ×2 (08:23→20:19)
[2019-08-28] MEDS: CLINDAMYCIN TP SCH (08:23)
[2019-08-28] MEDS: JEVITY 1.2 1000 ML LIQUID GT PRN (08:34)
[2019-08-28] MEDS: HYDROGEN PEROXIDE 3% 118 ML BOTTLE TOP SCH ×2 (09:14→10:10)
--- NOTE | 2019-08-28 16:40 | NUR ---
nursing notes: facetime provided for patient with mother and brother. patient stable, no signs of pain or distress noted.
[2019-08-28 20:04] VITALS: BP 124/91
[2019-08-28] MEDS: FERROUS SULFATE 330 MG/7.5 ML UDC- FOR SA ONLY GT SCH (20:05)
[2019-08-28] MEDS: MELATONIN 5MG TABLET GT SCH (20:08)
[2019-08-28] MEDS: MULTIVIT, IRON, MIN NO. 8, FA TABLET GT SCH (20:08)
[2019-08-28] MEDS: ADAPALENE 0.3% TP SCH (20:24)
[2019-08-28] MEDS: MINERAL OIL/PETROLATUM,WHITE 57 GM TUBE TP SCH (20:24)
[2019-08-29] MEDS: JEVITY 1.2 1000 ML LIQUID GT PRN (05:02)
[2019-08-29] MEDS: hydrALAZINE HCL 10 MG TABLET GT SCH ×3 (05:03→22:00)
[2019-08-29] MEDS: CALCIUM CARBONATE 500 MG TAB.CHEW GT SCH ×2 (05:04→17:29)
[2019-08-29] MEDS: FAMOTIDINE 20 MG TABLET GT SCH (05:04)
[2019-08-29 08:00] VITALS: BP 122/82
[2019-08-29] MEDS: levETIRAcetam 500 MG/5 ML LIQUID UDC GT SCH ×2 (08:53→20:19)
[2019-08-29] MEDS: LACOSAMIDE 100 MG/10 ML UDC GT SCH ×2 (08:53→20:19)
[2019-08-29] MEDS: METOPROLOL TARTRATE 50 MG TABLET GT SCH ×2 (08:54→20:19)
[2019-08-29] MEDS: HEPARIN SODIUM,PORCINE 5,000 UNITS/ML VIAL SQ SCH ×2 (08:54→20:20)
[2019-08-29] MEDS: CLINDAMYCIN TP SCH (08:54)
[2019-08-29] MEDS: ACIDOPHILUS/BULGARICUS CHEW TAB GT SCH ×2 (08:54→20:19)
[2019-08-29] MEDS: COD LIVER OIL/ZINC OXIDE OINT 113 GM TUBE TP SCH ×2 (08:54→20:20)
[2019-08-29] MEDS: AMLODIPINE 10 MG TABLET GT SCH (08:54)
[2019-08-29] MEDS: NUTRISOURCE FIBER 4 GM PACKET GT SCH (08:54)
[2019-08-29] MEDS: HYDROGEN PEROXIDE 3% 118 ML BOTTLE TOP SCH ×2 (10:10→21:56)
--- NOTE | 2019-08-29 15:00 | NUR ---
Provided face time to pt. and her mother with no complaints noted. Pt remains comfortable with no signs of pain noted.
[2019-08-29] MEDS: FERROUS SULFATE 330 MG/7.5 ML UDC- FOR SA ONLY GT SCH (20:19)
[2019-08-29] MEDS: MULTIVIT, IRON, MIN NO. 8, FA TABLET GT SCH (20:19)
[2019-08-29] MEDS: MELATONIN 5MG TABLET GT SCH (20:19)
[2019-08-29] MEDS: MINERAL OIL/PETROLATUM,WHITE 57 GM TUBE TP SCH (20:20)
[2019-08-29] MEDS: ADAPALENE 0.3% TP SCH (20:20)
[2019-08-29 22:00] VITALS: BP 146/82
[2019-08-30] MEDS: JEVITY 1.2 1000 ML LIQUID GT PRN (00:06)
[2019-08-30] MEDS: hydrALAZINE HCL 10 MG TABLET GT SCH ×3 (06:00→22:00)
[2019-08-30] MEDS: FAMOTIDINE 20 MG TABLET GT SCH (06:10)
[2019-08-30] MEDS: CALCIUM CARBONATE 500 MG TAB.CHEW GT SCH ×2 (06:10→18:02)
[2019-08-30] MEDS: LACOSAMIDE 100 MG/10 ML UDC GT SCH ×2 (08:00→20:37)
[2019-08-30] MEDS: levETIRAcetam 500 MG/5 ML LIQUID UDC GT SCH ×2 (08:00→20:37)
[2019-08-30] MEDS: HYDROGEN PEROXIDE 3% 118 ML BOTTLE TOP SCH ×2 (08:17→20:43)
[2019-08-30] MEDS: AMLODIPINE 10 MG TABLET GT SCH (09:09)
[2019-08-30] MEDS: ACIDOPHILUS/BULGARICUS CHEW TAB GT SCH ×2 (09:09→20:37)
[2019-08-30] MEDS: METOPROLOL TARTRATE 50 MG TABLET GT SCH ×2 (09:10→20:38)
[2019-08-30] MEDS: HEPARIN SODIUM,PORCINE 5,000 UNITS/ML VIAL SQ SCH ×2 (09:10→20:39)
[2019-08-30] MEDS: COD LIVER OIL/ZINC OXIDE OINT 113 GM TUBE TP SCH ×2 (09:10→20:39)
[2019-08-30] MEDS: NUTRISOURCE FIBER 4 GM PACKET GT SCH (09:10)
[2019-08-30] MEDS: CLINDAMYCIN TP SCH (09:11)
[2019-08-30 11:52] VITALS: BP 112/62
[2019-08-30] MEDS: FERROUS SULFATE 330 MG/7.5 ML UDC- FOR SA ONLY GT SCH (20:37)
[2019-08-30] MEDS: MULTIVIT, IRON, MIN NO. 8, FA TABLET GT SCH (20:38)
[2019-08-30] MEDS: MELATONIN 5MG TABLET GT SCH (20:38)
[2019-08-30] MEDS: MINERAL OIL/PETROLATUM,WHITE 57 GM TUBE TP SCH (20:39)
[2019-08-30] MEDS: ADAPALENE 0.3% TP SCH (20:39)
[2019-08-30 22:37] VITALS: BP 115/65
[2019-08-31] MEDS: FAMOTIDINE 20 MG TABLET GT SCH (05:27)
[2019-08-31] MEDS: hydrALAZINE HCL 10 MG TABLET GT SCH ×4 (05:27→22:17)
[2019-08-31] MEDS: CALCIUM CARBONATE 500 MG TAB.CHEW GT SCH ×2 (05:27→17:07)
[2019-08-31] MEDS: HYDROGEN PEROXIDE 3% 118 ML BOTTLE TOP SCH ×2 (08:15→21:28)
[2019-08-31 08:30] VITALS: BP 110/59
[2019-08-31] MEDS: ACIDOPHILUS/BULGARICUS CHEW TAB GT SCH ×2 (08:37→20:10)
[2019-08-31] MEDS: levETIRAcetam 500 MG/5 ML LIQUID UDC GT SCH ×2 (08:37→20:10)
[2019-08-31] MEDS: LACOSAMIDE 100 MG/10 ML UDC GT SCH ×2 (08:37→20:10)
[2019-08-31] MEDS: AMLODIPINE 10 MG TABLET GT SCH (08:38)
[2019-08-31] MEDS: METOPROLOL TARTRATE 50 MG TABLET GT SCH ×2 (08:38→20:11)
[2019-08-31] MEDS: NUTRISOURCE FIBER 4 GM PACKET GT SCH (08:39)
[2019-08-31] MEDS: CLINDAMYCIN TP SCH (08:39)
[2019-08-31] MEDS: COD LIVER OIL/ZINC OXIDE OINT 113 GM TUBE TP SCH ×2 (08:39→20:12)
[2019-08-31] MEDS: HEPARIN SODIUM,PORCINE 5,000 UNITS/ML VIAL SQ SCH ×2 (08:39→21:00)
[2019-08-31] MEDS: JEVITY 1.2 1000 ML LIQUID GT PRN (18:07)
[2019-08-31] MEDS: FERROUS SULFATE 330 MG/7.5 ML UDC- FOR SA ONLY GT SCH (20:10)
[2019-08-31] MEDS: MELATONIN 5MG TABLET GT SCH (20:11)
[2019-08-31] MEDS: MULTIVIT, IRON, MIN NO. 8, FA TABLET GT SCH (20:11)
[2019-08-31] MEDS: ADAPALENE 0.3% TP SCH (20:12)
[2019-08-31] MEDS: MINERAL OIL/PETROLATUM,WHITE 57 GM TUBE TP SCH (20:12)
[2019-08-31 23:01] VITALS: BP 114/63
[2019-09-01] MEDS: CALCIUM CARBONATE 500 MG TAB.CHEW GT SCH ×2 (05:25→17:19)
[2019-09-01] MEDS: FAMOTIDINE 20 MG TABLET GT SCH (05:25)
[2019-09-01] MEDS: hydrALAZINE HCL 10 MG TABLET GT SCH ×3 (05:25→22:00)
[2019-09-01] MEDS: HYDROGEN PEROXIDE 3% 118 ML BOTTLE TOP SCH ×2 (08:20→21:14)
[2019-09-01] MEDS: levETIRAcetam 500 MG/5 ML LIQUID UDC GT SCH ×2 (08:21→20:00)
[2019-09-01] MEDS: ACIDOPHILUS/BULGARICUS CHEW TAB GT SCH ×2 (08:22→21:21)
[2019-09-01] MEDS: LACOSAMIDE 100 MG/10 ML UDC GT SCH ×2 (08:22→20:00)
[2019-09-01] MEDS: NUTRISOURCE FIBER 4 GM PACKET GT SCH (08:23)
[2019-09-01] MEDS: METOPROLOL TARTRATE 50 MG TABLET GT SCH ×2 (08:23→21:00)
[2019-09-01] MEDS: COD LIVER OIL/ZINC OXIDE OINT 113 GM TUBE TP SCH ×2 (08:23→21:22)
[2019-09-01] MEDS: AMLODIPINE 10 MG TABLET GT SCH (08:23)
[2019-09-01] MEDS: HEPARIN SODIUM,PORCINE 5,000 UNITS/ML VIAL SQ SCH ×2 (08:27→21:22)
[2019-09-01 08:30] VITALS: BP 104/54
--- NOTE | 2019-09-01 09:30 | NUR ---
Seen by Santos Johnson with no new orders.
[2019-09-01] MEDS: CLINDAMYCIN TP SCH (09:45)
[2019-09-01] MEDS: JEVITY 1.2 1000 ML LIQUID GT PRN (10:35)
--- NOTE | 2019-09-01 15:20 | NUR ---
Face Time with pt's mother.
[2019-09-01 20:28] VITALS: BP 121/91
[2019-09-01] MEDS: MULTIVIT, IRON, MIN NO. 8, FA TABLET GT SCH (21:21)
[2019-09-01] MEDS: MELATONIN 5MG TABLET GT SCH (21:21)
[2019-09-01] MEDS: FERROUS SULFATE 330 MG/7.5 ML UDC- FOR SA ONLY GT SCH (21:21)
[2019-09-01] MEDS: MINERAL OIL/PETROLATUM,WHITE 57 GM TUBE TP SCH (21:22)
[2019-09-01] MEDS: ADAPALENE 0.3% TP SCH (21:22)
[2019-09-02] MEDS: CALCIUM CARBONATE 500 MG TAB.CHEW GT SCH ×2 (05:14→17:15)
[2019-09-02] MEDS: FAMOTIDINE 20 MG TABLET GT SCH (05:14)
[2019-09-02] MEDS: JEVITY 1.2 1000 ML LIQUID GT PRN ×2 (05:15→20:35)
[2019-09-02] MEDS: hydrALAZINE HCL 10 MG TABLET GT SCH ×3 (05:28→22:23)
[2019-09-02 07:12] LABS: BASOPHILS # (AUTO) 0.1 K/uL (0.0-8.0); BASOPHILS % (AUTO) 0.6 % (0.0-2.0); EOSINOPHILS # (AUTO) 0.3 K/uL (0.0-0.7); EOSINOPHILS % (AUTO) 2.3 % (0.0-7.0); HEMATOCRIT 39.3 % (31.2-41.9); HEMOGLOBIN 13.3 g/dL (10.9-14.3); LYMPHOCYTES # (AUTO) 2.1 K/uL (20.0-40.0); MEAN CORPUSCULAR HEMOGLOBIN 30.7 uug (24.7-32.8); MEAN CORPUSCULAR HGB CONC 34 g/dL (32.3-35.6); MEAN CORPUSCULAR VOLUME 90.4 fL (75.5-95.3); MONOCYTES # (AUTO) 0.9 K/uL (2.0-10.0); MONOCYTES % (AUTO) 7.9 % (0.0-11.0); NEUTROPHILS # (AUTO) 8.2 K/uL (1.8-8.9); NEUTROPHILS % (AUTO) 71.2 % (38.5-71.5); PLATELET COUNT (AUTO) 374 K/uL (179-408); RED BLOOD CELL COUNT(AUTO) 4.34 MIL/uL (3.63-4.92); WHITE BLOOD COUNT (AUTO) 11.5 K/uL (3.8-11.8)
[2019-09-02 07:29] LABS: CARBON DIOXIDE 31 mmol/L (21-32); CHLORIDE 100 mmol/L (98-107); CREATININE 0.5 mg/dL (0.6-1.3); GLUCOSE 88 mg/dL (74-106); MAGNESIUM 2.1 mg/dL (1.8-2.4); PHOSPHOROUS 4.7 mg/dL (2.5-4.9); POTASSIUM 4.5 mmol/L (3.5-5.1); UREA NITROGEN, BLOOD 13 mg/dL (7-18)
[2019-09-02] MEDS: LACOSAMIDE 100 MG/10 ML UDC GT SCH ×2 (08:23→20:16)
[2019-09-02] MEDS: levETIRAcetam 500 MG/5 ML LIQUID UDC GT SCH ×2 (08:23→20:16)
[2019-09-02] MEDS: ACIDOPHILUS/BULGARICUS CHEW TAB GT SCH ×2 (08:23→20:17)
[2019-09-02] MEDS: NUTRISOURCE FIBER 4 GM PACKET GT SCH (08:24)
[2019-09-02] MEDS: HEPARIN SODIUM,PORCINE 5,000 UNITS/ML VIAL SQ SCH ×2 (08:29→20:21)
[2019-09-02] MEDS: HYDROGEN PEROXIDE 3% 118 ML BOTTLE TOP SCH ×2 (08:30→20:44)
[2019-09-02] MEDS: METOPROLOL TARTRATE 50 MG TABLET GT SCH ×2 (08:30→21:00)
[2019-09-02] MEDS: AMLODIPINE 10 MG TABLET GT SCH (08:30)
[2019-09-02] MEDS: COD LIVER OIL/ZINC OXIDE OINT 113 GM TUBE TP SCH ×2 (08:31→20:21)
[2019-09-02] MEDS: CLINDAMYCIN TP SCH (09:24)
[2019-09-02 10:40] VITALS: BP 109/50
--- NOTE | 2019-09-02 14:45 | NUR ---
Facetime done with patient's mother.
[2019-09-02] MEDS: FERROUS SULFATE 330 MG/7.5 ML UDC- FOR SA ONLY GT SCH (20:17)
[2019-09-02] MEDS: MELATONIN 5MG TABLET GT SCH (20:19)
[2019-09-02] MEDS: MULTIVIT, IRON, MIN NO. 8, FA TABLET GT SCH (20:20)
[2019-09-02] MEDS: ADAPALENE 0.3% TP SCH (20:22)
[2019-09-02] MEDS: MINERAL OIL/PETROLATUM,WHITE 57 GM TUBE TP SCH (20:22)
[2019-09-02 22:12] VITALS: BP 124/80
[2019-09-03] MEDS: FAMOTIDINE 20 MG TABLET GT SCH (06:32)
[2019-09-03] MEDS: hydrALAZINE HCL 10 MG TABLET GT SCH ×3 (06:32→22:00)
[2019-09-03] MEDS: CALCIUM CARBONATE 500 MG TAB.CHEW GT SCH ×2 (06:32→17:54)
[2019-09-03] MEDS: levETIRAcetam 500 MG/5 ML LIQUID UDC GT SCH ×2 (08:55→20:16)
[2019-09-03] MEDS: LACOSAMIDE 100 MG/10 ML UDC GT SCH ×2 (08:55→20:16)
[2019-09-03] MEDS: METOPROLOL TARTRATE 50 MG TABLET GT SCH ×2 (08:56→21:00)
[2019-09-03] MEDS: AMLODIPINE 10 MG TABLET GT SCH (08:57)
[2019-09-03] MEDS: NUTRISOURCE FIBER 4 GM PACKET GT SCH (08:58)
[2019-09-03] MEDS: HYDROGEN PEROXIDE 3% 118 ML BOTTLE TOP SCH ×2 (09:05→21:59)
[2019-09-03] MEDS: HEPARIN SODIUM,PORCINE 5,000 UNITS/ML VIAL SQ SCH ×2 (09:05→20:17)
[2019-09-03] MEDS: COD LIVER OIL/ZINC OXIDE OINT 113 GM TUBE TP SCH ×2 (09:06→20:17)
[2019-09-03] MEDS: ACIDOPHILUS/BULGARICUS CHEW TAB GT SCH ×2 (09:06→20:16)
[2019-09-03] MEDS: CLINDAMYCIN TP SCH (09:06)
[2019-09-03 10:54] VITALS: BP 105/64
--- NOTE | 2019-09-03 17:15 | NUR ---
Patient had Facetime with her mother at this time.
[2019-09-03 20:00] VITALS: BP 138/85
[2019-09-03] MEDS: MULTIVIT, IRON, MIN NO. 8, FA TABLET GT SCH (20:16)
[2019-09-03] MEDS: MELATONIN 5MG TABLET GT SCH (20:16)
[2019-09-03] MEDS: FERROUS SULFATE 330 MG/7.5 ML UDC- FOR SA ONLY GT SCH (20:16)
[2019-09-03] MEDS: MINERAL OIL/PETROLATUM,WHITE 57 GM TUBE TP SCH (20:17)
[2019-09-03] MEDS: ADAPALENE 0.3% TP SCH (20:18)
[2019-09-03 22:00] VITALS: BP 98/53
[2019-09-04 05:30] VITALS: BP 104/70
[2019-09-04] MEDS: hydrALAZINE HCL 10 MG TABLET GT SCH ×3 (06:00→22:00)
[2019-09-04] MEDS: FAMOTIDINE 20 MG TABLET GT SCH (06:06)
[2019-09-04] MEDS: CALCIUM CARBONATE 500 MG TAB.CHEW GT SCH ×2 (06:06→17:27)
[2019-09-04 08:00] VITALS: BP 115/70
[2019-09-04] MEDS: ACIDOPHILUS/BULGARICUS CHEW TAB GT SCH ×2 (08:45→20:32)
[2019-09-04] MEDS: LACOSAMIDE 100 MG/10 ML UDC GT SCH ×2 (08:45→20:31)
[2019-09-04] MEDS: levETIRAcetam 500 MG/5 ML LIQUID UDC GT SCH ×2 (08:45→20:31)
[2019-09-04] MEDS: METOPROLOL TARTRATE 50 MG TABLET GT SCH ×2 (08:47→20:54)
[2019-09-04] MEDS: AMLODIPINE 10 MG TABLET GT SCH (08:49)
[2019-09-04] MEDS: NUTRISOURCE FIBER 4 GM PACKET GT SCH (08:51)
[2019-09-04] MEDS: COD LIVER OIL/ZINC OXIDE OINT 113 GM TUBE TP SCH ×2 (08:52→20:35)
[2019-09-04] MEDS: CLINDAMYCIN TP SCH (08:52)
[2019-09-04] MEDS: HEPARIN SODIUM,PORCINE 5,000 UNITS/ML VIAL SQ SCH ×2 (08:52→20:35)
[2019-09-04] MEDS: HYDROGEN PEROXIDE 3% 118 ML BOTTLE TOP SCH ×2 (09:00→21:28)
--- NOTE | 2019-09-04 15:15 | NUR ---
PT's mother requested for FaceTime with daughter. PT was calm with no signs of respiratory distress. Held hydralazine per MD's order. BP: 96/55, HR: 85, Sat O2: 99%. During FaceTime, mother asked when trach care were changed. Nurse explained that RT did trach care in the morning. PT was clean with no secretions seen. FaceTime concluded.
[2019-09-04] MEDS: JEVITY 1.2 1000 ML LIQUID GT PRN (17:27)
--- NOTE | 2019-09-04 18:57 | NUR ---
SEEN AND EXAMINED BY DR. FORREST WITH NEW ORDERS NOTED AND CARRIED OUT.
[2019-09-04 20:00] VITALS: BP 114/72
[2019-09-04] MEDS: FERROUS SULFATE 330 MG/7.5 ML UDC- FOR SA ONLY GT SCH (20:31)
[2019-09-04] MEDS: MELATONIN 5MG TABLET GT SCH (20:32)
[2019-09-04] MEDS: MULTIVIT, IRON, MIN NO. 8, FA TABLET GT SCH (20:33)
[2019-09-04] MEDS: ADAPALENE 0.3% TP SCH (20:35)
[2019-09-04] MEDS: MINERAL OIL/PETROLATUM,WHITE 57 GM TUBE TP SCH (20:35)
[2019-09-05] MEDS: hydrALAZINE HCL 10 MG TABLET GT SCH ×3 (06:00→21:22)
[2019-09-05] MEDS: CALCIUM CARBONATE 500 MG TAB.CHEW GT SCH ×2 (06:06→17:29)
[2019-09-05] MEDS: FAMOTIDINE 20 MG TABLET GT SCH (06:06)
[2019-09-05 08:00] VITALS: BP 115/70
[2019-09-05] MEDS: ACIDOPHILUS/BULGARICUS CHEW TAB GT SCH ×2 (08:32→20:24)
[2019-09-05] MEDS: LACOSAMIDE 100 MG/10 ML UDC GT SCH ×2 (08:32→20:23)
[2019-09-05] MEDS: levETIRAcetam 500 MG/5 ML LIQUID UDC GT SCH ×2 (08:32→20:23)
[2019-09-05] MEDS: COD LIVER OIL/ZINC OXIDE OINT 113 GM TUBE TP SCH ×2 (08:35→20:24)
[2019-09-05] MEDS: NUTRISOURCE FIBER 4 GM PACKET GT SCH (08:35)
[2019-09-05] MEDS: HEPARIN SODIUM,PORCINE 5,000 UNITS/ML VIAL SQ SCH ×2 (08:35→20:24)
[2019-09-05] MEDS: AMLODIPINE 10 MG TABLET GT SCH (08:35)
[2019-09-05] MEDS: METOPROLOL TARTRATE 50 MG TABLET GT SCH ×2 (08:35→20:24)
[2019-09-05] MEDS: CLINDAMYCIN TP SCH (08:35)
[2019-09-05] MEDS: HYDROGEN PEROXIDE 3% 118 ML BOTTLE TOP SCH ×2 (09:00→21:46)
--- NOTE | 2019-09-05 17:52 | NUR ---
1500 - PT's mother requested for Skype at 1400. Due to unavailability of the iPad, nurse was not able to do video. Nurse was able to obtain device at 1445 and attempted to call mother via Skype 3 times, but did not answer. Another nurse was present during the attempts. 1730 - PT's mother called and requested to do Skype. Nurse is able to video mother and patient for 5 minutes. PT was calm with no signs of respiratory distress. Trach care was applied in the morning. PT was clean with no secretions noted. Another nurse was present at the time. Video concluded.
[2019-09-05 20:00] VITALS: BP 126/75
[2019-09-05] MEDS: FERROUS SULFATE 330 MG/7.5 ML UDC- FOR SA ONLY GT SCH (20:23)
[2019-09-05] MEDS: MINERAL OIL/PETROLATUM,WHITE 57 GM TUBE TP SCH (20:24)
[2019-09-05] MEDS: MULTIVIT, IRON, MIN NO. 8, FA TABLET GT SCH (20:24)
[2019-09-05] MEDS: MELATONIN 5MG TABLET GT SCH (20:24)
[2019-09-05] MEDS: ADAPALENE 0.3% TP SCH (20:24)
[2019-09-06] MEDS: JEVITY 1.2 1000 ML LIQUID GT PRN ×2 (03:03→22:24)
[2019-09-06] MEDS: hydrALAZINE HCL 10 MG TABLET GT SCH ×3 (05:11→21:09)
[2019-09-06] MEDS: FAMOTIDINE 20 MG TABLET GT SCH (05:11)
[2019-09-06] MEDS: CALCIUM CARBONATE 500 MG TAB.CHEW GT SCH ×2 (05:11→17:25)
[2019-09-06] MEDS: levETIRAcetam 500 MG/5 ML LIQUID UDC GT SCH ×2 (08:23→20:26)
[2019-09-06] MEDS: ACIDOPHILUS/BULGARICUS CHEW TAB GT SCH ×2 (08:23→20:27)
[2019-09-06] MEDS: HYDROGEN PEROXIDE 3% 118 ML BOTTLE TOP SCH ×2 (08:24→21:09)
[2019-09-06] MEDS: COD LIVER OIL/ZINC OXIDE OINT 113 GM TUBE TP SCH ×2 (08:24→20:27)
[2019-09-06] MEDS: LACOSAMIDE 100 MG/10 ML UDC GT SCH ×2 (08:34→20:27)
[2019-09-06] MEDS: NUTRISOURCE FIBER 4 GM PACKET GT SCH (08:37)
[2019-09-06] MEDS: HEPARIN SODIUM,PORCINE 5,000 UNITS/ML VIAL SQ SCH ×2 (08:40→20:27)
[2019-09-06] MEDS: METOPROLOL TARTRATE 50 MG TABLET GT SCH ×2 (08:48→20:27)
[2019-09-06] MEDS: CLINDAMYCIN TP SCH (09:00)
[2019-09-06 12:22] VITALS: BP 102/62
[2019-09-06] MEDS: AMLODIPINE 10 MG TABLET GT SCH (13:26)
--- NOTE | 2019-09-06 14:30 | NUR ---
Facetime done with mother
[2019-09-06] MEDS: MULTIVIT, IRON, MIN NO. 8, FA TABLET GT SCH (20:27)
[2019-09-06] MEDS: MINERAL OIL/PETROLATUM,WHITE 57 GM TUBE TP SCH (20:27)
[2019-09-06] MEDS: ADAPALENE 0.3% TP SCH (20:27)
[2019-09-06] MEDS: FERROUS SULFATE 330 MG/7.5 ML UDC- FOR SA ONLY GT SCH (20:27)
[2019-09-06] MEDS: MELATONIN 5MG TABLET GT SCH (20:27)
[2019-09-06 22:27] VITALS: BP 117/71
[2019-09-07] MEDS: hydrALAZINE HCL 10 MG TABLET GT SCH ×3 (05:18→21:18)
[2019-09-07] MEDS: FAMOTIDINE 20 MG TABLET GT SCH (05:18)
[2019-09-07] MEDS: CALCIUM CARBONATE 500 MG TAB.CHEW GT SCH ×2 (05:18→18:10)
[2019-09-07] MEDS: HYDROGEN PEROXIDE 3% 118 ML BOTTLE TOP SCH ×2 (08:36→20:50)
[2019-09-07] MEDS: ACIDOPHILUS/BULGARICUS CHEW TAB GT SCH ×2 (08:40→20:28)
[2019-09-07] MEDS: levETIRAcetam 500 MG/5 ML LIQUID UDC GT SCH ×2 (08:40→20:28)
[2019-09-07] MEDS: LACOSAMIDE 100 MG/10 ML UDC GT SCH ×2 (08:40→20:28)
[2019-09-07] MEDS: NUTRISOURCE FIBER 4 GM PACKET GT SCH (08:41)
[2019-09-07] MEDS: METOPROLOL TARTRATE 50 MG TABLET GT SCH ×2 (08:41→20:28)
[2019-09-07] MEDS: AMLODIPINE 10 MG TABLET GT SCH (08:41)
[2019-09-07] MEDS: COD LIVER OIL/ZINC OXIDE OINT 113 GM TUBE TP SCH ×2 (08:43→21:18)
[2019-09-07] MEDS: CLINDAMYCIN TP SCH (08:43)
[2019-09-07] MEDS: HEPARIN SODIUM,PORCINE 5,000 UNITS/ML VIAL SQ SCH ×2 (08:44→20:30)
[2019-09-07 11:40] VITALS: BP 109/60
[2019-09-07] MEDS: FERROUS SULFATE 330 MG/7.5 ML UDC- FOR SA ONLY GT SCH (20:28)
[2019-09-07] MEDS: MELATONIN 5MG TABLET GT SCH (20:28)
[2019-09-07] MEDS: MULTIVIT, IRON, MIN NO. 8, FA TABLET GT SCH (20:28)
[2019-09-07] MEDS: ADAPALENE 0.3% TP SCH (21:18)
[2019-09-07] MEDS: MINERAL OIL/PETROLATUM,WHITE 57 GM TUBE TP SCH (21:18)
[2019-09-07 22:14] VITALS: BP 132/88
[2019-09-08] MEDS: hydrALAZINE HCL 10 MG TABLET GT SCH ×3 (05:15→21:12)
[2019-09-08] MEDS: FAMOTIDINE 20 MG TABLET GT SCH (05:16)
[2019-09-08] MEDS: CALCIUM CARBONATE 500 MG TAB.CHEW GT SCH ×2 (05:16→18:23)
[2019-09-08] MEDS: JEVITY 1.2 1000 ML LIQUID GT PRN (05:16)
[2019-09-08 07:03] LABS: EOSINOPHILS # (AUTO) 0.2 K/uL (0.0-0.7); LYMPHOCYTES # (AUTO) 1.4 K/uL (20.0-40.0)
[2019-09-08 07:18] LABS: BASOPHILS % (AUTO) 0.5 % (0.0-2.0); EOSINOPHILS % (AUTO) 2.6 % (0.0-7.0); HEMATOCRIT 38.3 % (31.2-41.9); HEMOGLOBIN 12.8 g/dL (10.9-14.3); LYMPHOCYTES % (AUTO) 18.1 % (20.5-51.5); MEAN CORPUSCULAR HEMOGLOBIN 30.5 uug (24.7-32.8); MEAN CORPUSCULAR HGB CONC 33 g/dL (32.3-35.6); MEAN CORPUSCULAR VOLUME 91.2 fL (75.5-95.3); MONOCYTES # (AUTO) 0.6 K/uL (2.0-10.0); MONOCYTES % (AUTO) 7.1 % (0.0-11.0); NEUTROPHILS # (AUTO) 5.6 K/uL (1.8-8.9); NEUTROPHILS % (AUTO) 71.7 % (38.5-71.5); PLATELET COUNT (AUTO) 335 K/uL (179-408); WHITE BLOOD COUNT (AUTO) 7.8 K/uL (3.8-11.8)
[2019-09-08] MEDS: ACIDOPHILUS/BULGARICUS CHEW TAB GT SCH ×2 (08:30→20:21)
[2019-09-08] MEDS: levETIRAcetam 500 MG/5 ML LIQUID UDC GT SCH ×2 (08:30→20:21)
[2019-09-08] MEDS: LACOSAMIDE 100 MG/10 ML UDC GT SCH ×2 (08:30→20:21)
[2019-09-08] MEDS: METOPROLOL TARTRATE 50 MG TABLET GT SCH ×2 (08:30→20:23)
[2019-09-08] MEDS: AMLODIPINE 10 MG TABLET GT SCH (08:30)
[2019-09-08] MEDS: NUTRISOURCE FIBER 4 GM PACKET GT SCH (08:31)
[2019-09-08] MEDS: CLINDAMYCIN TP SCH (08:31)
[2019-09-08] MEDS: COD LIVER OIL/ZINC OXIDE OINT 113 GM TUBE TP SCH ×2 (08:31→20:23)
[2019-09-08] MEDS: HEPARIN SODIUM,PORCINE 5,000 UNITS/ML VIAL SQ SCH ×2 (08:33→20:28)
[2019-09-08] MEDS: HYDROGEN PEROXIDE 3% 118 ML BOTTLE TOP SCH ×2 (09:00→20:23)
[2019-09-08 09:15] VITALS: BP 104/48
[2019-09-08] MEDS: FERROUS SULFATE 330 MG/7.5 ML UDC- FOR SA ONLY GT SCH (20:21)
[2019-09-08] MEDS: MELATONIN 5MG TABLET GT SCH (20:23)
[2019-09-08] MEDS: ADAPALENE 0.3% TP SCH (20:23)
[2019-09-08] MEDS: MINERAL OIL/PETROLATUM,WHITE 57 GM TUBE TP SCH (20:23)
[2019-09-08] MEDS: MULTIVIT, IRON, MIN NO. 8, FA TABLET GT SCH (20:23)
[2019-09-08 20:29] VITALS: BP 145/86
[2019-09-09] MEDS: JEVITY 1.2 1000 ML LIQUID GT PRN (04:30)
[2019-09-09] MEDS: CALCIUM CARBONATE 500 MG TAB.CHEW GT SCH ×2 (06:27→17:31)
[2019-09-09] MEDS: FAMOTIDINE 20 MG TABLET GT SCH (06:27)
[2019-09-09] MEDS: hydrALAZINE HCL 10 MG TABLET GT SCH ×3 (06:28→22:00)
[2019-09-09] MEDS: levETIRAcetam 500 MG/5 ML LIQUID UDC GT SCH ×2 (08:34→20:08)
[2019-09-09] MEDS: ACIDOPHILUS/BULGARICUS CHEW TAB GT SCH ×2 (08:34→20:10)
[2019-09-09] MEDS: METOPROLOL TARTRATE 50 MG TABLET GT SCH ×2 (08:34→20:11)
[2019-09-09] MEDS: LACOSAMIDE 100 MG/10 ML UDC GT SCH ×2 (08:34→20:10)
[2019-09-09] MEDS: AMLODIPINE 10 MG TABLET GT SCH (08:35)
[2019-09-09] MEDS: NUTRISOURCE FIBER 4 GM PACKET GT SCH (08:35)
[2019-09-09] MEDS: COD LIVER OIL/ZINC OXIDE OINT 113 GM TUBE TP SCH ×2 (08:36→20:13)
[2019-09-09] MEDS: CLINDAMYCIN TP SCH (08:36)
[2019-09-09] MEDS: HEPARIN SODIUM,PORCINE 5,000 UNITS/ML VIAL SQ SCH ×2 (08:37→21:00)
[2019-09-09] MEDS: HYDROGEN PEROXIDE 3% 118 ML BOTTLE TOP SCH ×2 (09:00→21:00)
[2019-09-09 09:25] VITALS: BP 104/48
[2019-09-09] MEDS: FERROUS SULFATE 330 MG/7.5 ML UDC- FOR SA ONLY GT SCH (20:10)
[2019-09-09] MEDS: MELATONIN 5MG TABLET GT SCH (20:11)
[2019-09-09] MEDS: MULTIVIT, IRON, MIN NO. 8, FA TABLET GT SCH (20:12)
[2019-09-09] MEDS: MINERAL OIL/PETROLATUM,WHITE 57 GM TUBE TP SCH (20:13)
[2019-09-09] MEDS: ADAPALENE 0.3% TP SCH (20:13)
[2019-09-09 20:26] VITALS: BP 142/85
[2019-09-10] MEDS: JEVITY 1.2 1000 ML LIQUID GT PRN ×2 (01:08→17:06)
[2019-09-10] MEDS: FAMOTIDINE 20 MG TABLET GT SCH (05:59)
[2019-09-10] MEDS: hydrALAZINE HCL 10 MG TABLET GT SCH ×3 (05:59→22:00)
[2019-09-10] MEDS: CALCIUM CARBONATE 500 MG TAB.CHEW GT SCH ×2 (05:59→17:05)
[2019-09-10 08:00] VITALS: BP 102/64
[2019-09-10] MEDS: levETIRAcetam 500 MG/5 ML LIQUID UDC GT SCH ×2 (08:52→20:08)
[2019-09-10] MEDS: ACIDOPHILUS/BULGARICUS CHEW TAB GT SCH ×2 (08:53→20:15)
[2019-09-10] MEDS: LACOSAMIDE 100 MG/10 ML UDC GT SCH ×2 (08:53→20:09)
[2019-09-10] MEDS: METOPROLOL TARTRATE 50 MG TABLET GT SCH ×2 (08:57→20:17)
[2019-09-10] MEDS: AMLODIPINE 10 MG TABLET GT SCH (08:58)
[2019-09-10] MEDS: NUTRISOURCE FIBER 4 GM PACKET GT SCH (08:58)
[2019-09-10] MEDS: HYDROGEN PEROXIDE 3% 118 ML BOTTLE TOP SCH ×2 (09:00→19:23)
[2019-09-10] MEDS: COD LIVER OIL/ZINC OXIDE OINT 113 GM TUBE TP SCH ×2 (09:02→20:22)
[2019-09-10] MEDS: HEPARIN SODIUM,PORCINE 5,000 UNITS/ML VIAL SQ SCH ×2 (09:02→20:21)
[2019-09-10] MEDS: CLINDAMYCIN TP SCH (09:02)
--- NOTE | 2019-09-10 14:00 | NUR ---
Mother requested to do Face Time with pt at this time.
[2019-09-10] MEDS: FERROUS SULFATE 330 MG/7.5 ML UDC- FOR SA ONLY GT SCH (20:15)
[2019-09-10] MEDS: MULTIVIT, IRON, MIN NO. 8, FA TABLET GT SCH (20:18)
[2019-09-10] MEDS: MELATONIN 5MG TABLET GT SCH (20:18)
[2019-09-10] MEDS: ADAPALENE 0.3% TP SCH (20:22)
[2019-09-10] MEDS: MINERAL OIL/PETROLATUM,WHITE 57 GM TUBE TP SCH (20:22)
[2019-09-10 22:28] VITALS: BP 135/84
[2019-09-11] MEDS: hydrALAZINE HCL 10 MG TABLET GT SCH ×3 (06:00→22:00)
[2019-09-11] MEDS: CALCIUM CARBONATE 500 MG TAB.CHEW GT SCH ×2 (06:15→17:27)
[2019-09-11] MEDS: FAMOTIDINE 20 MG TABLET GT SCH (06:15)
[2019-09-11 08:00] VITALS: BP 115/51
[2019-09-11] MEDS: levETIRAcetam 500 MG/5 ML LIQUID UDC GT SCH ×2 (08:44→20:08)
[2019-09-11] MEDS: LACOSAMIDE 100 MG/10 ML UDC GT SCH ×2 (08:44→20:08)
[2019-09-11] MEDS: ACIDOPHILUS/BULGARICUS CHEW TAB GT SCH ×2 (08:45→20:09)
[2019-09-11] MEDS: METOPROLOL TARTRATE 50 MG TABLET GT SCH ×2 (08:45→20:10)
[2019-09-11] MEDS: AMLODIPINE 10 MG TABLET GT SCH (08:46)
[2019-09-11] MEDS: NUTRISOURCE FIBER 4 GM PACKET GT SCH (08:47)
[2019-09-11] MEDS: HEPARIN SODIUM,PORCINE 5,000 UNITS/ML VIAL SQ SCH ×2 (08:50→20:13)
[2019-09-11] MEDS: COD LIVER OIL/ZINC OXIDE OINT 113 GM TUBE TP SCH ×2 (08:50→20:16)
[2019-09-11] MEDS: CLINDAMYCIN TP SCH (08:51)
[2019-09-11] MEDS: HYDROGEN PEROXIDE 3% 118 ML BOTTLE TOP SCH ×2 (09:50→18:52)
[2019-09-11] MEDS: JEVITY 1.2 1000 ML LIQUID GT PRN (10:30)
--- NOTE | 2019-09-11 14:30 | NUR ---
provided facetime for patient with mother. patient in stable condition will continue to monitor.
[2019-09-11 20:00] VITALS: BP 114/69
[2019-09-11] MEDS: FERROUS SULFATE 330 MG/7.5 ML UDC- FOR SA ONLY GT SCH (20:08)
[2019-09-11] MEDS: MELATONIN 5MG TABLET GT SCH (20:11)
[2019-09-11] MEDS: MULTIVIT, IRON, MIN NO. 8, FA TABLET GT SCH (20:12)
[2019-09-11] MEDS: ADAPALENE 0.3% TP SCH (20:16)
[2019-09-11] MEDS: MINERAL OIL/PETROLATUM,WHITE 57 GM TUBE TP SCH (20:16)
[2019-09-12] MEDS: JEVITY 1.2 1000 ML LIQUID GT PRN ×2 (02:00→17:23)
[2019-09-12] MEDS: hydrALAZINE HCL 10 MG TABLET GT SCH ×3 (06:00→21:29)
[2019-09-12] MEDS: FAMOTIDINE 20 MG TABLET GT SCH (06:03)
[2019-09-12] MEDS: CALCIUM CARBONATE 500 MG TAB.CHEW GT SCH ×2 (06:03→17:23)
[2019-09-12 08:00] VITALS: BP 122/85
[2019-09-12] MEDS: levETIRAcetam 500 MG/5 ML LIQUID UDC GT SCH ×2 (08:34→20:17)
[2019-09-12] MEDS: ACIDOPHILUS/BULGARICUS CHEW TAB GT SCH ×2 (08:35→20:17)
[2019-09-12] MEDS: LACOSAMIDE 100 MG/10 ML UDC GT SCH ×2 (08:35→20:17)
[2019-09-12] MEDS: HEPARIN SODIUM,PORCINE 5,000 UNITS/ML VIAL SQ SCH ×2 (08:38→20:24)
[2019-09-12] MEDS: AMLODIPINE 10 MG TABLET GT SCH (08:38)
[2019-09-12] MEDS: METOPROLOL TARTRATE 50 MG TABLET GT SCH ×2 (08:38→20:17)
[2019-09-12] MEDS: NUTRISOURCE FIBER 4 GM PACKET GT SCH (08:38)
[2019-09-12] MEDS: CLINDAMYCIN TP SCH (08:38)
[2019-09-12] MEDS: COD LIVER OIL/ZINC OXIDE OINT 113 GM TUBE TP SCH ×2 (08:38→20:18)
[2019-09-12] MEDS: HYDROGEN PEROXIDE 3% 118 ML BOTTLE TOP SCH ×2 (09:35→20:17)
--- NOTE | 2019-09-12 14:30 | NUR ---
facetime provided for patient with mother. patient in stable condition will continue to monitor.
[2019-09-12] MEDS: MELATONIN 5MG TABLET GT SCH (20:17)
[2019-09-12] MEDS: FERROUS SULFATE 330 MG/7.5 ML UDC- FOR SA ONLY GT SCH (20:17)
[2019-09-12] MEDS: MULTIVIT, IRON, MIN NO. 8, FA TABLET GT SCH (20:17)
[2019-09-12] MEDS: MINERAL OIL/PETROLATUM,WHITE 57 GM TUBE TP SCH (20:18)
[2019-09-12] MEDS: ADAPALENE 0.3% TP SCH (20:18)
[2019-09-12 22:04] VITALS: BP 130/85
[2019-09-13] MEDS: FAMOTIDINE 20 MG TABLET GT SCH (05:17)
[2019-09-13] MEDS: hydrALAZINE HCL 10 MG TABLET GT SCH ×3 (05:17→21:06)
[2019-09-13] MEDS: CALCIUM CARBONATE 500 MG TAB.CHEW GT SCH ×2 (05:17→17:38)
[2019-09-13] MEDS: levETIRAcetam 500 MG/5 ML LIQUID UDC GT SCH ×2 (07:53→20:00)
[2019-09-13] MEDS: LACOSAMIDE 100 MG/10 ML UDC GT SCH ×2 (07:57→20:00)
[2019-09-13] MEDS: METOPROLOL TARTRATE 50 MG TABLET GT SCH ×2 (08:01→21:05)
[2019-09-13] MEDS: ACIDOPHILUS/BULGARICUS CHEW TAB GT SCH ×2 (08:01→21:04)
[2019-09-13] MEDS: AMLODIPINE 10 MG TABLET GT SCH (08:02)
[2019-09-13] MEDS: NUTRISOURCE FIBER 4 GM PACKET GT SCH (08:02)
[2019-09-13] MEDS: CLINDAMYCIN TP SCH (08:03)
[2019-09-13] MEDS: COD LIVER OIL/ZINC OXIDE OINT 113 GM TUBE TP SCH ×2 (08:03→21:05)
[2019-09-13] MEDS: HEPARIN SODIUM,PORCINE 5,000 UNITS/ML VIAL SQ SCH ×2 (08:03→21:41)
[2019-09-13 08:04] VITALS: BP 129/84
[2019-09-13] MEDS: HYDROGEN PEROXIDE 3% 118 ML BOTTLE TOP SCH ×2 (09:00→21:00)
[2019-09-13] MEDS: JEVITY 1.2 1000 ML LIQUID GT PRN (16:15)
--- NOTE | 2019-09-13 16:45 | NUR ---
provided facetime for patient with mother. patient in stable condition will continue to monitor.
[2019-09-13] MEDS: FERROUS SULFATE 330 MG/7.5 ML UDC- FOR SA ONLY GT SCH (21:04)
[2019-09-13] MEDS: MELATONIN 5MG TABLET GT SCH (21:05)
[2019-09-13] MEDS: MULTIVIT, IRON, MIN NO. 8, FA TABLET GT SCH (21:05)
[2019-09-13] MEDS: MINERAL OIL/PETROLATUM,WHITE 57 GM TUBE TP SCH (21:06)
[2019-09-13] MEDS: ADAPALENE 0.3% TP SCH (21:06)
[2019-09-13 22:46] VITALS: BP 100/55
[2019-09-13 22:50] VITALS: BP 150/90
[2019-09-14] MEDS: JEVITY 1.2 1000 ML LIQUID GT PRN ×2 (03:44→22:42)
[2019-09-14] MEDS: hydrALAZINE HCL 10 MG TABLET GT SCH ×3 (06:00→22:00)
[2019-09-14] MEDS: FAMOTIDINE 20 MG TABLET GT SCH (06:10)
[2019-09-14] MEDS: CALCIUM CARBONATE 500 MG TAB.CHEW GT SCH ×2 (06:10→17:09)
[2019-09-14 08:03] VITALS: BP 117/54
[2019-09-14] MEDS: levETIRAcetam 500 MG/5 ML LIQUID UDC GT SCH ×2 (08:06→20:11)
[2019-09-14] MEDS: LACOSAMIDE 100 MG/10 ML UDC GT SCH ×2 (08:08→20:25)
[2019-09-14] MEDS: ACIDOPHILUS/BULGARICUS CHEW TAB GT SCH ×2 (08:08→20:26)
[2019-09-14] MEDS: NUTRISOURCE FIBER 4 GM PACKET GT SCH (08:10)
[2019-09-14] MEDS: METOPROLOL TARTRATE 50 MG TABLET GT SCH ×2 (08:10→20:00)
[2019-09-14] MEDS: AMLODIPINE 10 MG TABLET GT SCH (08:14)
[2019-09-14] MEDS: COD LIVER OIL/ZINC OXIDE OINT 113 GM TUBE TP SCH ×2 (08:25→20:26)
[2019-09-14] MEDS: HYDROGEN PEROXIDE 3% 118 ML BOTTLE TOP SCH ×2 (08:25→20:50)
[2019-09-14] MEDS: HEPARIN SODIUM,PORCINE 5,000 UNITS/ML VIAL SQ SCH ×2 (08:25→20:15)
[2019-09-14] MEDS: CLINDAMYCIN TP SCH (08:25)
[2019-09-14 19:51] VITALS: BP 115/63
[2019-09-14] MEDS: FERROUS SULFATE 330 MG/7.5 ML UDC- FOR SA ONLY GT SCH (20:25)
[2019-09-14] MEDS: MINERAL OIL/PETROLATUM,WHITE 57 GM TUBE TP SCH (20:26)
[2019-09-14] MEDS: MELATONIN 5MG TABLET GT SCH (20:26)
[2019-09-14] MEDS: MULTIVIT, IRON, MIN NO. 8, FA TABLET GT SCH (20:26)
[2019-09-14] MEDS: ADAPALENE 0.3% TP SCH (20:26)
[2019-09-15] MEDS: hydrALAZINE HCL 10 MG TABLET GT SCH ×3 (05:52→22:25)
[2019-09-15] MEDS: FAMOTIDINE 20 MG TABLET GT SCH (05:54)
[2019-09-15] MEDS: CALCIUM CARBONATE 500 MG TAB.CHEW GT SCH ×2 (05:55→17:49)
[2019-09-15 08:00] VITALS: BP 103/60
[2019-09-15] MEDS: AMLODIPINE 10 MG TABLET GT SCH (08:30)
[2019-09-15] MEDS: NUTRISOURCE FIBER 4 GM PACKET GT SCH (08:30)
[2019-09-15] MEDS: LACOSAMIDE 100 MG/10 ML UDC GT SCH ×2 (08:30→20:19)
[2019-09-15] MEDS: ACIDOPHILUS/BULGARICUS CHEW TAB GT SCH ×2 (08:30→20:19)
[2019-09-15] MEDS: levETIRAcetam 500 MG/5 ML LIQUID UDC GT SCH ×2 (08:30→20:19)
[2019-09-15] MEDS: METOPROLOL TARTRATE 50 MG TABLET GT SCH ×2 (08:30→20:19)
[2019-09-15] MEDS: HEPARIN SODIUM,PORCINE 5,000 UNITS/ML VIAL SQ SCH ×2 (08:33→21:39)
[2019-09-15] MEDS: CLINDAMYCIN TP SCH (08:33)
[2019-09-15] MEDS: COD LIVER OIL/ZINC OXIDE OINT 113 GM TUBE TP SCH ×2 (08:33→20:20)
[2019-09-15] MEDS: HYDROGEN PEROXIDE 3% 118 ML BOTTLE TOP SCH ×2 (08:41→21:35)
--- NOTE | 2019-09-15 13:22 | NUR ---
Seen by Santos Giang, and Priti DAMON, no new order given at this time.
[2019-09-15 14:25] VITALS: BP 109/70
--- NOTE | 2019-09-15 18:05 | NUR ---
Provided face time for pt. and her mother with no complaints noted. Pt remains comfortable with no signs of pain or discomfort noted.
[2019-09-15] MEDS: FERROUS SULFATE 330 MG/7.5 ML UDC- FOR SA ONLY GT SCH (20:19)
[2019-09-15] MEDS: MELATONIN 5MG TABLET GT SCH (20:19)
[2019-09-15] MEDS: ADAPALENE 0.3% TP SCH (20:20)
[2019-09-15] MEDS: MINERAL OIL/PETROLATUM,WHITE 57 GM TUBE TP SCH (20:20)
[2019-09-15] MEDS: MULTIVIT, IRON, MIN NO. 8, FA TABLET GT SCH (20:20)
[2019-09-15 20:29] VITALS: BP 110/68
[2019-09-16] MEDS: hydrALAZINE HCL 10 MG TABLET GT SCH ×3 (05:58→22:35)
[2019-09-16] MEDS: FAMOTIDINE 20 MG TABLET GT SCH (05:58)
[2019-09-16] MEDS: CALCIUM CARBONATE 500 MG TAB.CHEW GT SCH ×2 (05:59→18:13)
[2019-09-16 07:42] LABS: BASOPHILS # (AUTO) 0.1 K/uL (0.0-8.0); BASOPHILS % (AUTO) 0.6 % (0.0-2.0); EOSINOPHILS # (AUTO) 0.2 K/uL (0.0-0.7); EOSINOPHILS % (AUTO) 2.5 % (0.0-7.0); HEMOGLOBIN 12.8 g/dL (10.9-14.3); LYMPHOCYTES # (AUTO) 1.9 K/uL (20.0-40.0); LYMPHOCYTES % (AUTO) 19.9 % (20.5-51.5); MEAN CORPUSCULAR HEMOGLOBIN 30.1 uug (24.7-32.8); MEAN CORPUSCULAR HGB CONC 33 g/dL (32.3-35.6); MEAN CORPUSCULAR VOLUME 91.4 fL (75.5-95.3); MONOCYTES # (AUTO) 0.5 K/uL (2.0-10.0); MONOCYTES % (AUTO) 5.8 % (0.0-11.0); NEUTROPHILS # (AUTO) 6.8 K/uL (1.8-8.9); NEUTROPHILS % (AUTO) 71.2 % (38.5-71.5); PLATELET COUNT (AUTO) 344 K/uL (179-408); RED BLOOD CELL COUNT(AUTO) 4.26 MIL/uL (3.63-4.92); WHITE BLOOD COUNT (AUTO) 9.5 K/uL (3.8-11.8)
[2019-09-16 08:00] VITALS: BP 104/61
[2019-09-16 08:00] LABS: CARBON DIOXIDE 30 mmol/L (21-32); CHLORIDE 103 mmol/L (98-107); CREATININE 0.4 mg/dL (0.6-1.3); GLUCOSE 96 mg/dL (74-106); MAGNESIUM 2.3 mg/dL (1.8-2.4); POTASSIUM 4.3 mmol/L (3.5-5.1); UREA NITROGEN, BLOOD 15 mg/dL (7-18)
[2019-09-16] MEDS: levETIRAcetam 500 MG/5 ML LIQUID UDC GT SCH ×2 (08:33→20:14)
[2019-09-16] MEDS: LACOSAMIDE 100 MG/10 ML UDC GT SCH ×2 (08:33→20:14)
[2019-09-16] MEDS: ACIDOPHILUS/BULGARICUS CHEW TAB GT SCH ×2 (08:33→20:14)
[2019-09-16] MEDS: AMLODIPINE 10 MG TABLET GT SCH (08:37)
[2019-09-16] MEDS: METOPROLOL TARTRATE 50 MG TABLET GT SCH ×2 (08:37→20:15)
[2019-09-16] MEDS: NUTRISOURCE FIBER 4 GM PACKET GT SCH (08:38)
[2019-09-16] MEDS: HEPARIN SODIUM,PORCINE 5,000 UNITS/ML VIAL SQ SCH ×2 (08:41→20:13)
[2019-09-16] MEDS: CLINDAMYCIN TP SCH (08:42)
[2019-09-16] MEDS: HYDROGEN PEROXIDE 3% 118 ML BOTTLE TOP SCH ×2 (09:00→21:41)
[2019-09-16] MEDS: JEVITY 1.2 1000 ML LIQUID GT PRN (09:04)
[2019-09-16] MEDS: COD LIVER OIL/ZINC OXIDE OINT 113 GM TUBE TP SCH ×2 (09:04→20:16)
[2019-09-16 20:00] VITALS: BP 99/77
[2019-09-16] MEDS: FERROUS SULFATE 330 MG/7.5 ML UDC- FOR SA ONLY GT SCH (20:14)
[2019-09-16] MEDS: MELATONIN 5MG TABLET GT SCH (20:15)
[2019-09-16] MEDS: MULTIVIT, IRON, MIN NO. 8, FA TABLET GT SCH (20:15)
[2019-09-16] MEDS: ADAPALENE 0.3% TP SCH (20:16)
[2019-09-16] MEDS: MINERAL OIL/PETROLATUM,WHITE 57 GM TUBE TP SCH (20:16)
[2019-09-17] MEDS: JEVITY 1.2 1000 ML LIQUID GT PRN (04:26)
[2019-09-17] MEDS: hydrALAZINE HCL 10 MG TABLET GT SCH ×3 (05:51→22:00)
[2019-09-17] MEDS: FAMOTIDINE 20 MG TABLET GT SCH (05:51)
[2019-09-17] MEDS: CALCIUM CARBONATE 500 MG TAB.CHEW GT SCH ×2 (05:51→17:19)
[2019-09-17 08:00] VITALS: BP 122/63
[2019-09-17] MEDS: METOPROLOL TARTRATE 50 MG TABLET GT SCH ×2 (08:12→20:23)
[2019-09-17] MEDS: AMLODIPINE 10 MG TABLET GT SCH (08:12)
[2019-09-17] MEDS: ACIDOPHILUS/BULGARICUS CHEW TAB GT SCH ×2 (08:12→20:22)
[2019-09-17] MEDS: NUTRISOURCE FIBER 4 GM PACKET GT SCH (08:12)
[2019-09-17] MEDS: LACOSAMIDE 100 MG/10 ML UDC GT SCH ×2 (08:12→20:22)
[2019-09-17] MEDS: levETIRAcetam 500 MG/5 ML LIQUID UDC GT SCH ×2 (08:12→20:22)
[2019-09-17] MEDS: HEPARIN SODIUM,PORCINE 5,000 UNITS/ML VIAL SQ SCH ×2 (08:13→20:38)
[2019-09-17] MEDS: CLINDAMYCIN TP SCH (08:14)
[2019-09-17] MEDS: COD LIVER OIL/ZINC OXIDE OINT 113 GM TUBE TP SCH ×2 (08:14→20:25)
[2019-09-17] MEDS: HYDROGEN PEROXIDE 3% 118 ML BOTTLE TOP SCH ×2 (09:04→21:00)
--- NOTE | 2019-09-17 12:36 | NUR ---
SAPNA sent patient's mother Abdoul an email, informing her that the next IDT meeting for this patient is scheduled for 09/23/19 at 11am. In the same email, SAPNA ask Marileedevin to respond to SAPNA by Thursday 09/21 to let SAPNA know if Abdoul would like to participate in the meeting thru speaker phone. SAPNA waiting to hear back from Abdoul.
[2019-09-17 20:00] VITALS: BP 115/73
[2019-09-17] MEDS: FERROUS SULFATE 330 MG/7.5 ML UDC- FOR SA ONLY GT SCH (20:22)
[2019-09-17] MEDS: MULTIVIT, IRON, MIN NO. 8, FA TABLET GT SCH (20:23)
[2019-09-17] MEDS: MELATONIN 5MG TABLET GT SCH (20:23)
[2019-09-17] MEDS: MINERAL OIL/PETROLATUM,WHITE 57 GM TUBE TP SCH (20:25)
[2019-09-17] MEDS: ADAPALENE 0.3% TP SCH (20:25)
[2019-09-18] MEDS: hydrALAZINE HCL 10 MG TABLET GT SCH ×3 (05:32→22:00)
[2019-09-18] MEDS: FAMOTIDINE 20 MG TABLET GT SCH (05:34)
[2019-09-18] MEDS: CALCIUM CARBONATE 500 MG TAB.CHEW GT SCH ×2 (05:34→17:01)
[2019-09-18 08:00] VITALS: BP 120/61
[2019-09-18] MEDS: levETIRAcetam 500 MG/5 ML LIQUID UDC GT SCH ×2 (08:00→20:20)
[2019-09-18] MEDS: LACOSAMIDE 100 MG/10 ML UDC GT SCH ×2 (08:00→20:20)
[2019-09-18] MEDS: METOPROLOL TARTRATE 50 MG TABLET GT SCH ×2 (09:07→20:35)
[2019-09-18] MEDS: NUTRISOURCE FIBER 4 GM PACKET GT SCH (09:07)
[2019-09-18] MEDS: AMLODIPINE 10 MG TABLET GT SCH (09:07)
[2019-09-18] MEDS: ACIDOPHILUS/BULGARICUS CHEW TAB GT SCH ×2 (09:07→20:34)
[2019-09-18] MEDS: CLINDAMYCIN TP SCH (09:08)
[2019-09-18] MEDS: HEPARIN SODIUM,PORCINE 5,000 UNITS/ML VIAL SQ SCH ×2 (09:08→20:36)
[2019-09-18] MEDS: COD LIVER OIL/ZINC OXIDE OINT 113 GM TUBE TP SCH ×2 (09:08→20:36)
[2019-09-18] MEDS: HYDROGEN PEROXIDE 3% 118 ML BOTTLE TOP SCH ×2 (09:47→21:37)
--- NOTE | 2019-09-18 14:45 | NUR ---
Resident provided with face time with her mother with no complaints noted. Kept pt clean and comfortable with no signs of pain or discomfort noted.
[2019-09-18 20:00] VITALS: BP 129/71
[2019-09-18] MEDS: FERROUS SULFATE 330 MG/7.5 ML UDC- FOR SA ONLY GT SCH (20:34)
[2019-09-18] MEDS: MULTIVIT, IRON, MIN NO. 8, FA TABLET GT SCH (20:35)
[2019-09-18] MEDS: MELATONIN 5MG TABLET GT SCH (20:35)
[2019-09-18] MEDS: ADAPALENE 0.3% TP SCH (20:36)
[2019-09-18] MEDS: MINERAL OIL/PETROLATUM,WHITE 57 GM TUBE TP SCH (20:36)
[2019-09-19] MEDS: FAMOTIDINE 20 MG TABLET GT SCH (05:36)
[2019-09-19] MEDS: hydrALAZINE HCL 10 MG TABLET GT SCH ×3 (05:36→22:00)
[2019-09-19] MEDS: CALCIUM CARBONATE 500 MG TAB.CHEW GT SCH ×2 (05:36→17:20)
[2019-09-19] MEDS: levETIRAcetam 500 MG/5 ML LIQUID UDC GT SCH ×2 (08:00→20:38)
[2019-09-19] MEDS: LACOSAMIDE 100 MG/10 ML UDC GT SCH ×2 (08:00→20:38)
[2019-09-19 08:06] VITALS: BP 111/71
[2019-09-19] MEDS: HYDROGEN PEROXIDE 3% 118 ML BOTTLE TOP SCH ×2 (09:00→21:46)
[2019-09-19] MEDS: AMLODIPINE 10 MG TABLET GT SCH (09:04)
[2019-09-19] MEDS: HEPARIN SODIUM,PORCINE 5,000 UNITS/ML VIAL SQ SCH ×2 (09:05→21:00)
[2019-09-19] MEDS: ACIDOPHILUS/BULGARICUS CHEW TAB GT SCH ×2 (09:12→20:38)
[2019-09-19] MEDS: METOPROLOL TARTRATE 50 MG TABLET GT SCH ×2 (09:14→20:42)
[2019-09-19] MEDS: NUTRISOURCE FIBER 4 GM PACKET GT SCH (09:15)
[2019-09-19] MEDS: COD LIVER OIL/ZINC OXIDE OINT 113 GM TUBE TP SCH ×2 (09:22→20:42)
[2019-09-19] MEDS: CLINDAMYCIN TP SCH (09:22)
--- NOTE | 2019-09-19 15:00 | NUR ---
SEEN BY ANGELINA CARRILLO AND WITH BRIAO.
--- NOTE | 2019-09-19 18:27 | NUR ---
Resident mother did facetime around 230pm for about 30 minutes.
[2019-09-19 20:00] VITALS: BP 106/66
[2019-09-19] MEDS: FERROUS SULFATE 330 MG/7.5 ML UDC- FOR SA ONLY GT SCH (20:38)
[2019-09-19] MEDS: ADAPALENE 0.3% TP SCH (20:42)
[2019-09-19] MEDS: MELATONIN 5MG TABLET GT SCH (20:42)
[2019-09-19] MEDS: MULTIVIT, IRON, MIN NO. 8, FA TABLET GT SCH (20:42)
[2019-09-19] MEDS: MINERAL OIL/PETROLATUM,WHITE 57 GM TUBE TP SCH (20:42)
[2019-09-20] MEDS: JEVITY 1.2 1000 ML LIQUID GT PRN ×2 (01:33→23:08)
[2019-09-20] MEDS: hydrALAZINE HCL 10 MG TABLET GT SCH ×3 (05:42→22:00)
[2019-09-20] MEDS: FAMOTIDINE 20 MG TABLET GT SCH (05:43)
[2019-09-20] MEDS: CALCIUM CARBONATE 500 MG TAB.CHEW GT SCH ×2 (05:43→18:04)
[2019-09-20 08:07] VITALS: BP 110/72
[2019-09-20] MEDS: NUTRISOURCE FIBER 4 GM PACKET GT SCH (08:29)
[2019-09-20] MEDS: AMLODIPINE 10 MG TABLET GT SCH (08:29)
[2019-09-20] MEDS: levETIRAcetam 500 MG/5 ML LIQUID UDC GT SCH ×2 (08:29→20:04)
[2019-09-20] MEDS: ACIDOPHILUS/BULGARICUS CHEW TAB GT SCH ×2 (08:29→20:04)
[2019-09-20] MEDS: METOPROLOL TARTRATE 50 MG TABLET GT SCH ×2 (08:29→20:04)
[2019-09-20] MEDS: LACOSAMIDE 100 MG/10 ML UDC GT SCH ×2 (08:29→20:04)
[2019-09-20] MEDS: CLINDAMYCIN TP SCH (08:30)
[2019-09-20] MEDS: COD LIVER OIL/ZINC OXIDE OINT 113 GM TUBE TP SCH ×2 (08:30→20:10)
[2019-09-20] MEDS: HEPARIN SODIUM,PORCINE 5,000 UNITS/ML VIAL SQ SCH ×2 (08:32→20:52)
[2019-09-20] MEDS: HYDROGEN PEROXIDE 3% 118 ML BOTTLE TOP SCH ×2 (08:41→21:24)
[2019-09-20 20:00] VITALS: BP 130/70
[2019-09-20] MEDS: FERROUS SULFATE 330 MG/7.5 ML UDC- FOR SA ONLY GT SCH (20:04)
[2019-09-20] MEDS: MELATONIN 5MG TABLET GT SCH (20:04)
[2019-09-20] MEDS: MULTIVIT, IRON, MIN NO. 8, FA TABLET GT SCH (20:05)
[2019-09-20] MEDS: MINERAL OIL/PETROLATUM,WHITE 57 GM TUBE TP SCH (20:10)
[2019-09-20] MEDS: ADAPALENE 0.3% TP SCH (20:10)
[2019-09-21] MEDS: hydrALAZINE HCL 10 MG TABLET GT SCH ×3 (05:28→22:00)
[2019-09-21] MEDS: CALCIUM CARBONATE 500 MG TAB.CHEW GT SCH ×2 (05:29→17:26)
[2019-09-21] MEDS: FAMOTIDINE 20 MG TABLET GT SCH (05:29)
[2019-09-21] MEDS: HYDROGEN PEROXIDE 3% 118 ML BOTTLE TOP SCH ×2 (07:55→21:09)
[2019-09-21] MEDS: ACIDOPHILUS/BULGARICUS CHEW TAB GT SCH ×2 (08:07→20:08)
[2019-09-21] MEDS: METOPROLOL TARTRATE 50 MG TABLET GT SCH ×2 (08:07→20:14)
[2019-09-21] MEDS: levETIRAcetam 500 MG/5 ML LIQUID UDC GT SCH ×2 (08:07→20:06)
[2019-09-21] MEDS: LACOSAMIDE 100 MG/10 ML UDC GT SCH ×2 (08:07→20:07)
[2019-09-21 08:08] VITALS: BP 100/59
[2019-09-21] MEDS: NUTRISOURCE FIBER 4 GM PACKET GT SCH (08:08)
[2019-09-21] MEDS: HEPARIN SODIUM,PORCINE 5,000 UNITS/ML VIAL SQ SCH ×2 (08:08→20:12)
[2019-09-21] MEDS: AMLODIPINE 10 MG TABLET GT SCH (08:08)
[2019-09-21] MEDS: COD LIVER OIL/ZINC OXIDE OINT 113 GM TUBE TP SCH ×2 (08:09→20:14)
[2019-09-21] MEDS: CLINDAMYCIN TP SCH (08:09)
--- NOTE | 2019-09-21 15:50 | NUR ---
Provided face time to pt. and her mother with no complaints noted. Kept pt clean and comfortable with no signs of pain noted.
[2019-09-21] MEDS: FERROUS SULFATE 330 MG/7.5 ML UDC- FOR SA ONLY GT SCH (20:07)
[2019-09-21] MEDS: MULTIVIT, IRON, MIN NO. 8, FA TABLET GT SCH (20:09)
[2019-09-21] MEDS: MINERAL OIL/PETROLATUM,WHITE 57 GM TUBE TP SCH (20:14)
[2019-09-21] MEDS: MELATONIN 5MG TABLET GT SCH (20:14)
[2019-09-21] MEDS: ADAPALENE 0.3% TP SCH (20:14)
[2019-09-21 20:36] VITALS: BP 111/72
[2019-09-22] MEDS: FAMOTIDINE 20 MG TABLET GT SCH (05:39)
[2019-09-22] MEDS: CALCIUM CARBONATE 500 MG TAB.CHEW GT SCH ×2 (05:39→18:01)
[2019-09-22] MEDS: hydrALAZINE HCL 10 MG TABLET GT SCH ×3 (05:39→22:25)
[2019-09-22 08:00] VITALS: BP 161/74
[2019-09-22] MEDS: levETIRAcetam 500 MG/5 ML LIQUID UDC GT SCH ×2 (08:32→20:22)
[2019-09-22] MEDS: LACOSAMIDE 100 MG/10 ML UDC GT SCH ×2 (08:34→20:22)
[2019-09-22] MEDS: ACIDOPHILUS/BULGARICUS CHEW TAB GT SCH ×2 (08:35→20:22)
[2019-09-22] MEDS: AMLODIPINE 10 MG TABLET GT SCH (08:38)
[2019-09-22] MEDS: NUTRISOURCE FIBER 4 GM PACKET GT SCH (08:38)
[2019-09-22] MEDS: METOPROLOL TARTRATE 50 MG TABLET GT SCH ×2 (08:38→20:27)
[2019-09-22] MEDS: HEPARIN SODIUM,PORCINE 5,000 UNITS/ML VIAL SQ SCH ×2 (08:45→20:35)
[2019-09-22] MEDS: COD LIVER OIL/ZINC OXIDE OINT 113 GM TUBE TP SCH ×2 (08:45→20:27)
[2019-09-22] MEDS: CLINDAMYCIN TP SCH (08:45)
[2019-09-22] MEDS: HYDROGEN PEROXIDE 3% 118 ML BOTTLE TOP SCH ×2 (09:00→20:18)
--- NOTE | 2019-09-22 11:24 | NUR ---
SAPNA sent patient's mother Abdoul an email today, reminding her that the IDT meeting for the patient is scheduled for tomorrow 09/23/19 at 11am. SAPNA asked for Abdoul to respond to SAPNA's email and let SAPNA know if Abdoul would like to participate in the meeting by speaker phone.
[2019-09-22] MEDS: FERROUS SULFATE 330 MG/7.5 ML UDC- FOR SA ONLY GT SCH (20:22)
[2019-09-22] MEDS: MELATONIN 5MG TABLET GT SCH (20:27)
[2019-09-22] MEDS: ADAPALENE 0.3% TP SCH (20:27)
[2019-09-22] MEDS: MINERAL OIL/PETROLATUM,WHITE 57 GM TUBE TP SCH (20:27)
[2019-09-22] MEDS: MULTIVIT, IRON, MIN NO. 8, FA TABLET GT SCH (20:27)
[2019-09-22 20:45] VITALS: BP 112/69
[2019-09-22] MEDS: JEVITY 1.2 1000 ML LIQUID GT PRN (22:29)
[2019-09-23] MEDS: hydrALAZINE HCL 10 MG TABLET GT SCH ×3 (06:00→22:00)
[2019-09-23] MEDS: FAMOTIDINE 20 MG TABLET GT SCH (06:05)
[2019-09-23] MEDS: CALCIUM CARBONATE 500 MG TAB.CHEW GT SCH ×2 (06:05→17:02)
[2019-09-23 08:00] VITALS: BP 131/68
[2019-09-23] MEDS: HEPARIN SODIUM,PORCINE 5,000 UNITS/ML VIAL SQ SCH ×2 (08:06→20:15)
[2019-09-23] MEDS: LACOSAMIDE 100 MG/10 ML UDC GT SCH ×2 (08:08→20:08)
[2019-09-23] MEDS: levETIRAcetam 500 MG/5 ML LIQUID UDC GT SCH ×2 (08:08→20:08)
[2019-09-23] MEDS: ACIDOPHILUS/BULGARICUS CHEW TAB GT SCH ×2 (08:08→20:08)
[2019-09-23] MEDS: METOPROLOL TARTRATE 50 MG TABLET GT SCH ×2 (08:11→20:10)
[2019-09-23] MEDS: NUTRISOURCE FIBER 4 GM PACKET GT SCH (08:11)
[2019-09-23] MEDS: AMLODIPINE 10 MG TABLET GT SCH (08:11)
[2019-09-23] MEDS: COD LIVER OIL/ZINC OXIDE OINT 113 GM TUBE TP SCH ×2 (08:12→20:11)
[2019-09-23] MEDS: CLINDAMYCIN TP SCH (09:00)
[2019-09-23] MEDS: HYDROGEN PEROXIDE 3% 118 ML BOTTLE TOP SCH ×2 (09:58→20:42)
--- NOTE | 2019-09-23 10:33 | NUR ---
SW received an email response this morning from patient's mother Abdoul, stating that she would like to participate in the IDT meeting via speaker phone. SW responded to Abdoul, asking her to be available between 11am-12pm in order to receive the call when SAPNA calls Abdoul during the IDT meeting today.
--- NOTE | 2019-09-23 14:10 | NUR ---
Pharmacy Update from Today's 09/23/19 IDT Meeting VS: Temp 98.7 HR 103 BP 131/68 LABS: (from 09/16/19) Wbc 9.5 H/H 12.8/39 Plt 344 Na 139 K 4.3 Cl 103 CO2 30 BUN/SCr 15/0.4 BS 96 Ca 9.8 Phos 5 (about baseline ) Mg 2.3 MEDICATION USE REVIEWED: > Pt not on any anti-psych medications > Pt on Keppra 1000mg q12hr since 03/11/19. CrCl >100, ok per renal function. Neurology continues to follow and adjust > Pt on Vimpat 200mg q12hr since 04/18/19 per neurology > Pt on ativan 0.5mg q12h PRN agitation m/b tachycardia, increased perspiration, grimacing, biting lips, muscle tension, started 04/06/19 per neurology. Used x1 in August, effective per staff > Pt on Heparin 5000mg q12hr for DVT prophylaxis. No bleeding noted; Last plt 344 > On Norvasc 10mg daily, hydralazine 10mg q8hr, lopressor 50mg q12hr with hold parameters. Last BP wnl > Pt on famotidine 20mg daily since 08/26/19, ok dose per renal function PRN MED USAGE: (August) Tylenol for pain used x4 Tylenol for fever used x0 Hydralazine for SBP>180 used x0 Artificial tears PRN used x0 Lorazepam PRN seizures/spasms used x0 for spasms [place] used x0 NEW ORDERS NOTED: > NA Patient was reviewed and discussed in depth with all medication changes and issues noted per team. Family in attendance via phone conference (d/t [employer] regulations). No medication concerns or issues noted per family as well. No further rx recommendations at this time. Will continue to follow
--- NOTE | 2019-09-23 14:45 | NUR ---
FT DONE WITH PT'S MOTHER.
--- NOTE | 2019-09-23 14:45 | NUR ---
INTERDISCIPLINARY PLAN OF CARE CONFERENCE was held today. Patient's mother Abdoul participated in the meeting thru speaker phone. Dr. Ramos and the Interdisciplinary Team reviewed the current plan of care in detail. RN reported on patient's medical condition. No major changes in condition were reported. See RN IDT conference notes. See also all other disciplines IDT notes and physician's progress notes for additional details. Abdoul's questions and concerns were addressed by Dr. Gonzalez and the IDT team.
--- NOTE | 2019-09-23 16:59 | NUR ---
new orders noted from OT and carried out.
[2019-09-23] MEDS: JEVITY 1.2 1000 ML LIQUID GT PRN (17:54)
[2019-09-23] MEDS: FERROUS SULFATE 330 MG/7.5 ML UDC- FOR SA ONLY GT SCH (20:08)
[2019-09-23] MEDS: MELATONIN 5MG TABLET GT SCH (20:10)
[2019-09-23] MEDS: MULTIVIT, IRON, MIN NO. 8, FA TABLET GT SCH (20:11)
[2019-09-23] MEDS: ADAPALENE 0.3% TP SCH (20:11)
[2019-09-23] MEDS: MINERAL OIL/PETROLATUM,WHITE 57 GM TUBE TP SCH (20:11)
[2019-09-23 20:44] VITALS: BP 143/67
[2019-09-24] MEDS: CALCIUM CARBONATE 500 MG TAB.CHEW GT SCH ×2 (05:30→17:05)
[2019-09-24] MEDS: hydrALAZINE HCL 10 MG TABLET GT SCH ×3 (05:30→21:16)
[2019-09-24] MEDS: FAMOTIDINE 20 MG TABLET GT SCH (05:30)
[2019-09-24 08:00] VITALS: BP 116/75
[2019-09-24] MEDS: LACOSAMIDE 100 MG/10 ML UDC GT SCH ×2 (08:18→20:03)
[2019-09-24] MEDS: levETIRAcetam 500 MG/5 ML LIQUID UDC GT SCH ×2 (08:18→20:03)
[2019-09-24] MEDS: ACIDOPHILUS/BULGARICUS CHEW TAB GT SCH ×2 (08:18→20:03)
[2019-09-24] MEDS: METOPROLOL TARTRATE 50 MG TABLET GT SCH ×2 (08:19→20:04)
[2019-09-24] MEDS: NUTRISOURCE FIBER 4 GM PACKET GT SCH (08:20)
[2019-09-24] MEDS: AMLODIPINE 10 MG TABLET GT SCH (08:20)
[2019-09-24] MEDS: CLINDAMYCIN TP SCH (08:22)
[2019-09-24] MEDS: HEPARIN SODIUM,PORCINE 5,000 UNITS/ML VIAL SQ SCH ×2 (08:22→20:06)
[2019-09-24] MEDS: COD LIVER OIL/ZINC OXIDE OINT 113 GM TUBE TP SCH ×2 (08:22→20:04)
[2019-09-24] MEDS: HYDROGEN PEROXIDE 3% 118 ML BOTTLE TOP SCH ×2 (09:00→20:04)
--- NOTE | 2019-09-24 11:00 | NUR ---
Seen and examined by Dr Sosa with no new orders noted.
[2019-09-24] MEDS: JEVITY 1.2 1000 ML LIQUID GT PRN (11:04)
[2019-09-24 20:00] VITALS: BP 116/74
[2019-09-24] MEDS: FERROUS SULFATE 330 MG/7.5 ML UDC- FOR SA ONLY GT SCH (20:03)
[2019-09-24] MEDS: MULTIVIT, IRON, MIN NO. 8, FA TABLET GT SCH (20:04)
[2019-09-24] MEDS: ADAPALENE 0.3% TP SCH (20:04)
[2019-09-24] MEDS: MELATONIN 5MG TABLET GT SCH (20:04)
[2019-09-24] MEDS: MINERAL OIL/PETROLATUM,WHITE 57 GM TUBE TP SCH (20:04)
[2019-09-25] MEDS: hydrALAZINE HCL 10 MG TABLET GT SCH ×3 (05:42→22:00)
[2019-09-25] MEDS: FAMOTIDINE 20 MG TABLET GT SCH (05:44)
[2019-09-25] MEDS: CALCIUM CARBONATE 500 MG TAB.CHEW GT SCH ×2 (05:45→17:10)
[2019-09-25 08:00] VITALS: BP 105/56
[2019-09-25] MEDS: ACIDOPHILUS/BULGARICUS CHEW TAB GT SCH ×2 (08:53→20:15)
[2019-09-25] MEDS: LACOSAMIDE 100 MG/10 ML UDC GT SCH ×2 (08:53→20:14)
[2019-09-25] MEDS: levETIRAcetam 500 MG/5 ML LIQUID UDC GT SCH ×2 (08:53→20:14)
[2019-09-25] MEDS: NUTRISOURCE FIBER 4 GM PACKET GT SCH (08:54)
[2019-09-25] MEDS: METOPROLOL TARTRATE 50 MG TABLET GT SCH ×2 (08:54→20:15)
[2019-09-25] MEDS: AMLODIPINE 10 MG TABLET GT SCH (08:54)
[2019-09-25] MEDS: COD LIVER OIL/ZINC OXIDE OINT 113 GM TUBE TP SCH ×2 (08:57→20:15)
[2019-09-25] MEDS: CLINDAMYCIN TP SCH (08:57)
[2019-09-25] MEDS: HEPARIN SODIUM,PORCINE 5,000 UNITS/ML VIAL SQ SCH ×2 (08:57→21:00)
[2019-09-25] MEDS: HYDROGEN PEROXIDE 3% 118 ML BOTTLE TOP SCH ×2 (09:00→21:49)
--- NOTE | 2019-09-25 15:00 | NUR ---
provided facetime for patient with mother, patient stable, no signs of pain or discomfort noted at this time will continue to monitor.
[2019-09-25 20:00] VITALS: BP 133/83
[2019-09-25] MEDS: FERROUS SULFATE 330 MG/7.5 ML UDC- FOR SA ONLY GT SCH (20:14)
[2019-09-25] MEDS: MULTIVIT, IRON, MIN NO. 8, FA TABLET GT SCH (20:15)
[2019-09-25] MEDS: MELATONIN 5MG TABLET GT SCH (20:15)
[2019-09-25] MEDS: ADAPALENE 0.3% TP SCH (20:16)
[2019-09-25] MEDS: MINERAL OIL/PETROLATUM,WHITE 57 GM TUBE TP SCH (20:16)
[2019-09-25] MEDS: JEVITY 1.2 1000 ML LIQUID GT PRN (22:30)
[2019-09-26] MEDS: FAMOTIDINE 20 MG TABLET GT SCH (05:54)
[2019-09-26] MEDS: CALCIUM CARBONATE 500 MG TAB.CHEW GT SCH ×2 (05:54→17:11)
[2019-09-26] MEDS: hydrALAZINE HCL 10 MG TABLET GT SCH ×3 (05:54→22:00)
[2019-09-26 07:44] VITALS: BP 132/74
[2019-09-26 08:00] VITALS: BP 111/66
[2019-09-26] MEDS: HYDROGEN PEROXIDE 3% 118 ML BOTTLE TOP SCH ×2 (08:19→21:00)
--- NOTE | 2019-09-26 08:20 | NUR ---
Superficial scratch found by Rnas, (approx 5cm), tx ordered to apply triple atb ointment qshift x7 days, Mother notified of patient's condition.
[2019-09-26] MEDS: levETIRAcetam 500 MG/5 ML LIQUID UDC GT SCH ×2 (08:43→20:27)
[2019-09-26] MEDS: METOPROLOL TARTRATE 50 MG TABLET GT SCH ×2 (08:44→20:27)
[2019-09-26] MEDS: ACIDOPHILUS/BULGARICUS CHEW TAB GT SCH ×2 (08:44→20:27)
[2019-09-26] MEDS: LACOSAMIDE 100 MG/10 ML UDC GT SCH ×2 (08:44→20:27)
[2019-09-26] MEDS: NUTRISOURCE FIBER 4 GM PACKET GT SCH (08:45)
[2019-09-26] MEDS: AMLODIPINE 10 MG TABLET GT SCH (08:45)
[2019-09-26] MEDS: HEPARIN SODIUM,PORCINE 5,000 UNITS/ML VIAL SQ SCH ×2 (08:49→20:28)
[2019-09-26] MEDS: COD LIVER OIL/ZINC OXIDE OINT 113 GM TUBE TP SCH ×2 (08:50→20:27)
[2019-09-26] MEDS: CLINDAMYCIN TP SCH (08:50)
[2019-09-26] MEDS: NEOMY/BACITRA/POLYMYXIN B OINT UD PACKET TP SCH ×2 (09:06→20:27)
--- NOTE | 2019-09-26 11:51 | NUR ---
SAPNA received a voicemail message from APS SAPNA Nam [phone]. Viv stated in the voicemail message that she was doing a follow-up call. This SW and APS SAPNA Nam had spoken about an APS report that was made last month (see previous SS notes). SAPNA called Viv. SAPNA was not able to connect with Viv, and therefore SAPNA left Viv a voicemail message, asking for a return call.
--- NOTE | 2019-09-26 17:05 | NUR ---
provided facetime for patient with mother, patient stable, no signs of any pain or discomfort noted at this time. will continue to monitor.
[2019-09-26] MEDS: LORAZEPAM 0.5 MG TABLET GT PRN (20:20)
[2019-09-26] MEDS: MULTIVIT, IRON, MIN NO. 8, FA TABLET GT SCH (20:27)
[2019-09-26] MEDS: ADAPALENE 0.3% TP SCH (20:27)
[2019-09-26] MEDS: FERROUS SULFATE 330 MG/7.5 ML UDC- FOR SA ONLY GT SCH (20:27)
[2019-09-26] MEDS: MELATONIN 5MG TABLET GT SCH (20:27)
[2019-09-26] MEDS: MINERAL OIL/PETROLATUM,WHITE 57 GM TUBE TP SCH (20:27)
--- NOTE | 2019-09-26 20:30 | NUR ---
Nurse Duffy reported to the Charge nurse that patient had bitten her lower lips and now bleeding and swollen. Md made aware with new order. Cleanse with NS patted dry and apply Triple antibiotic ointment daily and PRN and leave open to air till healed.
[2019-09-26 22:07] VITALS: BP 103/52
[2019-09-27] MEDS: hydrALAZINE HCL 10 MG TABLET GT SCH ×3 (05:34→22:00)
[2019-09-27] MEDS: CALCIUM CARBONATE 500 MG TAB.CHEW GT SCH ×2 (05:34→17:18)
[2019-09-27] MEDS: FAMOTIDINE 20 MG TABLET GT SCH (05:34)
[2019-09-27 08:01] VITALS: BP 114/73
[2019-09-27] MEDS: levETIRAcetam 500 MG/5 ML LIQUID UDC GT SCH ×2 (08:06→20:29)
[2019-09-27] MEDS: LACOSAMIDE 100 MG/10 ML UDC GT SCH ×2 (08:06→20:29)
[2019-09-27] MEDS: METOPROLOL TARTRATE 50 MG TABLET GT SCH ×2 (08:07→20:30)
[2019-09-27] MEDS: ACIDOPHILUS/BULGARICUS CHEW TAB GT SCH ×2 (08:07→20:29)
[2019-09-27] MEDS: AMLODIPINE 10 MG TABLET GT SCH (08:08)
[2019-09-27] MEDS: NUTRISOURCE FIBER 4 GM PACKET GT SCH (08:10)
[2019-09-27] MEDS: NEOMY/BACITRA/POLYMYXIN B OINT UD PACKET TP SCH ×3 (08:11→20:31)
[2019-09-27] MEDS: CLINDAMYCIN TP SCH (08:11)
[2019-09-27] MEDS: COD LIVER OIL/ZINC OXIDE OINT 113 GM TUBE TP SCH ×2 (08:11→20:30)
[2019-09-27] MEDS: HEPARIN SODIUM,PORCINE 5,000 UNITS/ML VIAL SQ SCH ×2 (08:11→21:00)
[2019-09-27] MEDS: HYDROGEN PEROXIDE 3% 118 ML BOTTLE TOP SCH ×2 (08:48→19:42)
--- NOTE | 2019-09-27 16:00 | NUR ---
provided facetime for patient with mother. patient stable no signs of pain or discomfort at this time. will continue to monitor.
[2019-09-27] MEDS: FERROUS SULFATE 330 MG/7.5 ML UDC- FOR SA ONLY GT SCH (20:29)
[2019-09-27] MEDS: MULTIVIT, IRON, MIN NO. 8, FA TABLET GT SCH (20:30)
[2019-09-27] MEDS: ADAPALENE 0.3% TP SCH (20:30)
[2019-09-27] MEDS: MELATONIN 5MG TABLET GT SCH (20:30)
[2019-09-27] MEDS: MINERAL OIL/PETROLATUM,WHITE 57 GM TUBE TP SCH (20:30)
[2019-09-27 22:35] VITALS: BP 130/90
[2019-09-28] MEDS: JEVITY 1.2 1000 ML LIQUID GT PRN ×2 (03:44→23:13)
[2019-09-28] MEDS: hydrALAZINE HCL 10 MG TABLET GT SCH ×3 (05:36→22:00)
[2019-09-28] MEDS: CALCIUM CARBONATE 500 MG TAB.CHEW GT SCH ×2 (05:36→17:18)
[2019-09-28] MEDS: FAMOTIDINE 20 MG TABLET GT SCH (05:36)
[2019-09-28 08:01] VITALS: BP 130/73
[2019-09-28] MEDS: levETIRAcetam 500 MG/5 ML LIQUID UDC GT SCH ×2 (08:53→20:00)
[2019-09-28] MEDS: LACOSAMIDE 100 MG/10 ML UDC GT SCH ×2 (08:53→20:00)
[2019-09-28] MEDS: ACIDOPHILUS/BULGARICUS CHEW TAB GT SCH ×2 (08:54→21:31)
[2019-09-28] MEDS: METOPROLOL TARTRATE 50 MG TABLET GT SCH ×2 (08:57→21:32)
[2019-09-28] MEDS: AMLODIPINE 10 MG TABLET GT SCH (09:00)
[2019-09-28] MEDS: COD LIVER OIL/ZINC OXIDE OINT 113 GM TUBE TP SCH ×2 (09:01→21:32)
[2019-09-28] MEDS: NUTRISOURCE FIBER 4 GM PACKET GT SCH (09:01)
[2019-09-28] MEDS: HYDROGEN PEROXIDE 3% 118 ML BOTTLE TOP SCH ×2 (09:01→21:23)
[2019-09-28] MEDS: HEPARIN SODIUM,PORCINE 5,000 UNITS/ML VIAL SQ SCH ×2 (09:02→21:00)
[2019-09-28] MEDS: NEOMY/BACITRA/POLYMYXIN B OINT UD PACKET TP SCH ×3 (09:06→21:33)
[2019-09-28] MEDS: CLINDAMYCIN TP SCH (09:06)
--- NOTE | 2019-09-28 11:00 | NUR ---
Provide oral care with patient and apply triple ATB on patient's lips. able to tolerate well. no c/o pain. No s/s of SOB noted.
--- NOTE | 2019-09-28 15:15 | NUR ---
Facetime with patient's mother. Patient stable with no signs of pain or discomfort noted at this time. will continue to monitor.
[2019-09-28 20:00] VITALS: BP 153/75
[2019-09-28] MEDS: FERROUS SULFATE 330 MG/7.5 ML UDC- FOR SA ONLY GT SCH (21:31)
[2019-09-28] MEDS: ADAPALENE 0.3% TP SCH (21:32)
[2019-09-28] MEDS: MINERAL OIL/PETROLATUM,WHITE 57 GM TUBE TP SCH (21:32)
[2019-09-28] MEDS: MULTIVIT, IRON, MIN NO. 8, FA TABLET GT SCH (21:32)
[2019-09-28] MEDS: MELATONIN 5MG TABLET GT SCH (21:32)
[2019-09-29] MEDS: hydrALAZINE HCL 10 MG TABLET GT SCH ×3 (06:00→22:45)
[2019-09-29] MEDS: FAMOTIDINE 20 MG TABLET GT SCH (06:48)
[2019-09-29] MEDS: CALCIUM CARBONATE 500 MG TAB.CHEW GT SCH ×2 (06:48→17:12)
[2019-09-29 08:00] VITALS: BP 104/65
[2019-09-29] MEDS: levETIRAcetam 500 MG/5 ML LIQUID UDC GT SCH ×2 (08:05→20:42)
[2019-09-29] MEDS: LACOSAMIDE 100 MG/10 ML UDC GT SCH ×2 (08:05→20:42)
[2019-09-29] MEDS: ACIDOPHILUS/BULGARICUS CHEW TAB GT SCH ×2 (08:05→20:41)
[2019-09-29] MEDS: NUTRISOURCE FIBER 4 GM PACKET GT SCH (08:11)
[2019-09-29] MEDS: METOPROLOL TARTRATE 50 MG TABLET GT SCH ×2 (08:11→20:41)
[2019-09-29] MEDS: AMLODIPINE 10 MG TABLET GT SCH (08:11)
[2019-09-29] MEDS: HEPARIN SODIUM,PORCINE 5,000 UNITS/ML VIAL SQ SCH ×2 (08:12→21:00)
[2019-09-29] MEDS: NEOMY/BACITRA/POLYMYXIN B OINT UD PACKET TP SCH ×3 (08:12→20:43)
[2019-09-29] MEDS: CLINDAMYCIN TP SCH (08:12)
[2019-09-29] MEDS: COD LIVER OIL/ZINC OXIDE OINT 113 GM TUBE TP SCH ×2 (08:12→20:42)
[2019-09-29] MEDS: HYDROGEN PEROXIDE 3% 118 ML BOTTLE TOP SCH ×2 (09:00→20:42)
--- NOTE | 2019-09-29 11:30 | NUR ---
Seen by Priti WATKINS with no new order.
--- NOTE | 2019-09-29 12:00 | NUR ---
Seen by Santos Johnson notified pt bit her lip, no new order given at this time.
[2019-09-29 20:27] VITALS: BP 115/79
[2019-09-29] MEDS: FERROUS SULFATE 330 MG/7.5 ML UDC- FOR SA ONLY GT SCH (20:41)
[2019-09-29] MEDS: MINERAL OIL/PETROLATUM,WHITE 57 GM TUBE TP SCH (20:42)
[2019-09-29] MEDS: ADAPALENE 0.3% TP SCH (20:42)
[2019-09-29] MEDS: MELATONIN 5MG TABLET GT SCH (20:42)
[2019-09-29] MEDS: MULTIVIT, IRON, MIN NO. 8, FA TABLET GT SCH (20:42)
[2019-09-30] MEDS: hydrALAZINE HCL 10 MG TABLET GT SCH ×3 (06:00→22:00)
[2019-09-30] MEDS: FAMOTIDINE 20 MG TABLET GT SCH (06:27)
[2019-09-30] MEDS: CALCIUM CARBONATE 500 MG TAB.CHEW GT SCH ×2 (06:27→17:18)
[2019-09-30 06:42] LABS: BASOPHILS # (AUTO) 0.1 K/uL (0.0-8.0); BASOPHILS % (AUTO) 0.5 % (0.0-2.0); EOSINOPHILS # (AUTO) 0.3 K/uL (0.0-0.7); EOSINOPHILS % (AUTO) 2.6 % (0.0-7.0); HEMOGLOBIN 12.9 g/dL (10.9-14.3); LYMPHOCYTES # (AUTO) 2.4 K/uL (20.0-40.0); LYMPHOCYTES % (AUTO) 18.6 % (20.5-51.5); MEAN CORPUSCULAR HEMOGLOBIN 30.4 uug (24.7-32.8); MEAN CORPUSCULAR HGB CONC 33 g/dL (32.3-35.6); MEAN CORPUSCULAR VOLUME 91.8 fL (75.5-95.3); MONOCYTES # (AUTO) 0.8 K/uL (2.0-10.0); MONOCYTES % (AUTO) 6.3 % (0.0-11.0); NEUTROPHILS # (AUTO) 9.1 K/uL (1.8-8.9); PLATELET COUNT (AUTO) 393 K/uL (179-408); RED BLOOD CELL COUNT(AUTO) 4.25 MIL/uL (3.63-4.92); WHITE BLOOD COUNT (AUTO) 12.7 K/uL (3.8-11.8)
[2019-09-30 06:52] VITALS: BP 104/55
[2019-09-30 06:57] LABS: CREATININE 0.6 mg/dL (0.6-1.3); MAGNESIUM 2.2 mg/dL (1.8-2.4); PHOSPHOROUS 4.8 mg/dL (2.5-4.9); POTASSIUM 4.5 mmol/L (3.5-5.1)
[2019-09-30 08:00] VITALS: BP 120/78
[2019-09-30] MEDS: levETIRAcetam 500 MG/5 ML LIQUID UDC GT SCH ×2 (08:31→20:12)
[2019-09-30] MEDS: LACOSAMIDE 100 MG/10 ML UDC GT SCH ×2 (08:31→20:12)
[2019-09-30] MEDS: ACIDOPHILUS/BULGARICUS CHEW TAB GT SCH ×2 (08:34→20:12)
[2019-09-30] MEDS: METOPROLOL TARTRATE 50 MG TABLET GT SCH ×2 (08:35→20:12)
[2019-09-30] MEDS: AMLODIPINE 10 MG TABLET GT SCH (08:35)
[2019-09-30] MEDS: CLINDAMYCIN TP SCH (08:37)
[2019-09-30] MEDS: COD LIVER OIL/ZINC OXIDE OINT 113 GM TUBE TP SCH ×2 (08:37→20:13)
[2019-09-30] MEDS: NUTRISOURCE FIBER 4 GM PACKET GT SCH (08:37)
[2019-09-30] MEDS: NEOMY/BACITRA/POLYMYXIN B OINT UD PACKET TP SCH ×3 (08:38→20:13)
[2019-09-30] MEDS: HEPARIN SODIUM,PORCINE 5,000 UNITS/ML VIAL SQ SCH ×2 (08:40→20:13)
[2019-09-30] MEDS: HYDROGEN PEROXIDE 3% 118 ML BOTTLE TOP SCH ×2 (09:16→20:11)
[2019-09-30] MEDS: JEVITY 1.2 1000 ML LIQUID GT PRN (14:28)
--- NOTE | 2019-09-30 15:30 | NUR ---
FT PROVIDED TO PATIENT WITH MOTHER AND BROTHER.
[2019-09-30] MEDS: MELATONIN 5MG TABLET GT SCH (20:12)
[2019-09-30] MEDS: MULTIVIT, IRON, MIN NO. 8, FA TABLET GT SCH (20:12)
[2019-09-30] MEDS: FERROUS SULFATE 330 MG/7.5 ML UDC- FOR SA ONLY GT SCH (20:12)
[2019-09-30] MEDS: MINERAL OIL/PETROLATUM,WHITE 57 GM TUBE TP SCH (20:13)
[2019-09-30] MEDS: ADAPALENE 0.3% TP SCH (20:13)
[2019-09-30 20:39] VITALS: BP 142/88
[2019-09-30 21:54] VITALS: BP 92/55
[2019-10-01] MEDS: hydrALAZINE HCL 10 MG TABLET GT SCH ×3 (05:35→22:00)
[2019-10-01] MEDS: FAMOTIDINE 20 MG TABLET GT SCH (05:37)
[2019-10-01] MEDS: CALCIUM CARBONATE 500 MG TAB.CHEW GT SCH ×2 (05:37→18:05)
[2019-10-01 08:00] VITALS: BP 121/70
[2019-10-01] MEDS: levETIRAcetam 500 MG/5 ML LIQUID UDC GT SCH ×2 (08:28→20:06)
[2019-10-01] MEDS: LACOSAMIDE 100 MG/10 ML UDC GT SCH ×2 (08:28→20:06)
[2019-10-01] MEDS: ACIDOPHILUS/BULGARICUS CHEW TAB GT SCH ×2 (08:33→20:07)
[2019-10-01] MEDS: AMLODIPINE 10 MG TABLET GT SCH (08:42)
[2019-10-01] MEDS: NUTRISOURCE FIBER 4 GM PACKET GT SCH (08:42)
[2019-10-01] MEDS: METOPROLOL TARTRATE 50 MG TABLET GT SCH ×2 (08:42→20:09)
[2019-10-01] MEDS: COD LIVER OIL/ZINC OXIDE OINT 113 GM TUBE TP SCH ×2 (08:42→20:12)
[2019-10-01] MEDS: CLINDAMYCIN TP SCH (08:43)
[2019-10-01] MEDS: NEOMY/BACITRA/POLYMYXIN B OINT UD PACKET TP SCH ×3 (08:43→20:13)
[2019-10-01] MEDS: HEPARIN SODIUM,PORCINE 5,000 UNITS/ML VIAL SQ SCH ×2 (08:47→20:12)
[2019-10-01] MEDS: HYDROGEN PEROXIDE 3% 118 ML BOTTLE TOP SCH ×2 (09:00→21:08)
--- NOTE | 2019-10-01 10:00 | NUR ---
Seen and examined by Dr Kiran,no new orders.
[2019-10-01] MEDS: FERROUS SULFATE 330 MG/7.5 ML UDC- FOR SA ONLY GT SCH (20:07)
[2019-10-01] MEDS: MULTIVIT, IRON, MIN NO. 8, FA TABLET GT SCH (20:10)
[2019-10-01] MEDS: MELATONIN 5MG TABLET GT SCH (20:10)
[2019-10-01] MEDS: MINERAL OIL/PETROLATUM,WHITE 57 GM TUBE TP SCH (20:12)
[2019-10-01] MEDS: ADAPALENE 0.3% TP SCH (20:13)
[2019-10-01 20:44] VITALS: BP 108/64
[2019-10-02] MEDS: JEVITY 1.2 1000 ML LIQUID GT PRN (03:10)
[2019-10-02] MEDS: hydrALAZINE HCL 10 MG TABLET GT SCH ×3 (05:14→22:00)
[2019-10-02] MEDS: CALCIUM CARBONATE 500 MG TAB.CHEW GT SCH ×2 (05:15→18:23)
[2019-10-02] MEDS: FAMOTIDINE 20 MG TABLET GT SCH (05:15)
[2019-10-02 08:00] VITALS: BP 125/74
[2019-10-02] MEDS: LACOSAMIDE 100 MG/10 ML UDC GT SCH ×2 (08:48→20:09)
[2019-10-02] MEDS: ACIDOPHILUS/BULGARICUS CHEW TAB GT SCH ×2 (08:49→20:12)
[2019-10-02] MEDS: levETIRAcetam 500 MG/5 ML LIQUID UDC GT SCH ×2 (08:49→20:09)
[2019-10-02] MEDS: AMLODIPINE 10 MG TABLET GT SCH (08:55)
[2019-10-02] MEDS: NUTRISOURCE FIBER 4 GM PACKET GT SCH (08:55)
[2019-10-02] MEDS: METOPROLOL TARTRATE 50 MG TABLET GT SCH ×2 (08:55→20:12)
[2019-10-02] MEDS: COD LIVER OIL/ZINC OXIDE OINT 113 GM TUBE TP SCH ×2 (08:55→20:15)
[2019-10-02] MEDS: CLINDAMYCIN TP SCH (08:56)
[2019-10-02] MEDS: NEOMY/BACITRA/POLYMYXIN B OINT UD PACKET TP SCH ×3 (08:56→20:15)
[2019-10-02] MEDS: HEPARIN SODIUM,PORCINE 5,000 UNITS/ML VIAL SQ SCH ×2 (08:57→20:15)
[2019-10-02] MEDS: HYDROGEN PEROXIDE 3% 118 ML BOTTLE TOP SCH ×2 (10:20→20:54)
--- NOTE | 2019-10-02 18:57 | NUR ---
SEEN BY DR. FORREST AND WITH NNO.
[2019-10-02] MEDS: FERROUS SULFATE 330 MG/7.5 ML UDC- FOR SA ONLY GT SCH (20:12)
[2019-10-02] MEDS: MELATONIN 5MG TABLET GT SCH (20:14)
[2019-10-02] MEDS: MULTIVIT, IRON, MIN NO. 8, FA TABLET GT SCH (20:14)
[2019-10-02] MEDS: MINERAL OIL/PETROLATUM,WHITE 57 GM TUBE TP SCH (20:15)
[2019-10-02] MEDS: ADAPALENE 0.3% TP SCH (20:15)
[2019-10-02 20:43] VITALS: BP 131/74
[2019-10-02 22:08] VITALS: BP 91/54
[2019-10-03] MEDS: JEVITY 1.2 1000 ML LIQUID GT PRN (02:58)
[2019-10-03] MEDS: CALCIUM CARBONATE 500 MG TAB.CHEW GT SCH ×2 (05:27→17:09)
[2019-10-03] MEDS: hydrALAZINE HCL 10 MG TABLET GT SCH ×3 (05:27→21:28)
[2019-10-03] MEDS: FAMOTIDINE 20 MG TABLET GT SCH (05:27)
[2019-10-03 08:00] VITALS: BP 117/60
[2019-10-03] MEDS: HYDROGEN PEROXIDE 3% 118 ML BOTTLE TOP SCH ×2 (08:46→19:13)
[2019-10-03] MEDS: levETIRAcetam 500 MG/5 ML LIQUID UDC GT SCH ×2 (08:57→20:34)
[2019-10-03] MEDS: METOPROLOL TARTRATE 50 MG TABLET GT SCH ×2 (08:57→20:34)
[2019-10-03] MEDS: LACOSAMIDE 100 MG/10 ML UDC GT SCH ×2 (08:57→20:34)
[2019-10-03] MEDS: AMLODIPINE 10 MG TABLET GT SCH (08:57)
[2019-10-03] MEDS: ACIDOPHILUS/BULGARICUS CHEW TAB GT SCH ×2 (08:57→20:34)
[2019-10-03] MEDS: NUTRISOURCE FIBER 4 GM PACKET GT SCH (08:57)
[2019-10-03] MEDS: COD LIVER OIL/ZINC OXIDE OINT 113 GM TUBE TP SCH ×2 (08:58→20:34)
[2019-10-03] MEDS: NEOMY/BACITRA/POLYMYXIN B OINT UD PACKET TP SCH (08:58)
[2019-10-03] MEDS: CLINDAMYCIN TP SCH (08:58)
[2019-10-03] MEDS: HEPARIN SODIUM,PORCINE 5,000 UNITS/ML VIAL SQ SCH ×2 (08:58→20:35)
--- NOTE | 2019-10-03 17:10 | NUR ---
Provided face time to pt her mother with no problem noted, kept pt clean and comfortable no signs of pain or discomfort noted.
[2019-10-03 20:00] VITALS: BP 103/71
[2019-10-03] MEDS: ADAPALENE 0.3% TP SCH (20:34)
[2019-10-03] MEDS: FERROUS SULFATE 330 MG/7.5 ML UDC- FOR SA ONLY GT SCH (20:34)
[2019-10-03] MEDS: MULTIVIT, IRON, MIN NO. 8, FA TABLET GT SCH (20:34)
[2019-10-03] MEDS: MINERAL OIL/PETROLATUM,WHITE 57 GM TUBE TP SCH (20:34)
[2019-10-03] MEDS: MELATONIN 5MG TABLET GT SCH (20:34)
[2019-10-04] MEDS: JEVITY 1.2 1000 ML LIQUID GT PRN (02:25)
[2019-10-04] MEDS: hydrALAZINE HCL 10 MG TABLET GT SCH ×3 (05:18→21:29)
[2019-10-04] MEDS: FAMOTIDINE 20 MG TABLET GT SCH (05:18)
[2019-10-04] MEDS: CALCIUM CARBONATE 500 MG TAB.CHEW GT SCH ×2 (05:19→17:43)
[2019-10-04 07:37] VITALS: BP 119/63
[2019-10-04 07:51] LABS: BASOPHILS # (AUTO) 0.1 K/uL (0.0-8.0); BASOPHILS % (AUTO) 0.7 % (0.0-2.0); EOSINOPHILS # (AUTO) 0.4 K/uL (0.0-0.7); EOSINOPHILS % (AUTO) 4.8 % (0.0-7.0); HEMATOCRIT 39.4 % (31.2-41.9); HEMOGLOBIN 13.5 g/dL (10.9-14.3); LYMPHOCYTES # (AUTO) 2.4 K/uL (20.0-40.0); LYMPHOCYTES % (AUTO) 26.6 % (20.5-51.5); MEAN CORPUSCULAR HEMOGLOBIN 31.3 uug (24.7-32.8); MEAN CORPUSCULAR HGB CONC 34 g/dL (32.3-35.6); MEAN CORPUSCULAR VOLUME 91.5 fL (75.5-95.3); MONOCYTES # (AUTO) 0.6 K/uL (2.0-10.0); MONOCYTES % (AUTO) 6.6 % (0.0-11.0); NEUTROPHILS # (AUTO) 5.6 K/uL (1.8-8.9); NEUTROPHILS % (AUTO) 61.3 % (38.5-71.5); PLATELET COUNT (AUTO) 394 K/uL (179-408); RED BLOOD CELL COUNT(AUTO) 4.31 MIL/uL (3.63-4.92); WHITE BLOOD COUNT (AUTO) 9.1 K/uL (3.8-11.8)
[2019-10-04 08:02] LABS: CREATININE 0.6 mg/dL (0.6-1.3); PHOSPHOROUS 4.6 mg/dL (2.5-4.9); POTASSIUM 4.5 mmol/L (3.5-5.1)
[2019-10-04] MEDS: ACIDOPHILUS/BULGARICUS CHEW TAB GT SCH ×2 (08:07→20:06)
[2019-10-04] MEDS: NUTRISOURCE FIBER 4 GM PACKET GT SCH (08:07)
[2019-10-04] MEDS: LACOSAMIDE 100 MG/10 ML UDC GT SCH ×2 (08:07→20:06)
[2019-10-04] MEDS: AMLODIPINE 10 MG TABLET GT SCH (08:07)
[2019-10-04] MEDS: levETIRAcetam 500 MG/5 ML LIQUID UDC GT SCH ×2 (08:07→20:06)
[2019-10-04] MEDS: METOPROLOL TARTRATE 50 MG TABLET GT SCH ×2 (08:07→20:07)
[2019-10-04] MEDS: NEOMY/BACITRA/POLYMYXIN B OINT UD PACKET TP SCH (08:08)
[2019-10-04] MEDS: COD LIVER OIL/ZINC OXIDE OINT 113 GM TUBE TP SCH ×2 (08:08→20:08)
[2019-10-04] MEDS: CLINDAMYCIN TP SCH (08:08)
[2019-10-04] MEDS: HEPARIN SODIUM,PORCINE 5,000 UNITS/ML VIAL SQ SCH ×2 (08:08→20:08)
[2019-10-04] MEDS: HYDROGEN PEROXIDE 3% 118 ML BOTTLE TOP SCH ×2 (09:52→21:39)
--- NOTE | 2019-10-04 17:00 | NUR ---
NOTES FROM DR. GERARDO WHITTINGTON AND NNO.
--- NOTE | 2019-10-04 17:30 | NUR ---
Provided face time to pt. and her mother with no complaints, pt kept clean and comfortable with no signs of pain noted.
[2019-10-04] MEDS: FERROUS SULFATE 330 MG/7.5 ML UDC- FOR SA ONLY GT SCH (20:06)
[2019-10-04] MEDS: MELATONIN 5MG TABLET GT SCH (20:07)
[2019-10-04] MEDS: MULTIVIT, IRON, MIN NO. 8, FA TABLET GT SCH (20:07)
[2019-10-04] MEDS: ADAPALENE 0.3% TP SCH (20:08)
[2019-10-04] MEDS: MINERAL OIL/PETROLATUM,WHITE 57 GM TUBE TP SCH (20:08)
[2019-10-04 20:24] VITALS: BP 149/72
[2019-10-05] MEDS: FAMOTIDINE 20 MG TABLET GT SCH (05:06)
[2019-10-05] MEDS: hydrALAZINE HCL 10 MG TABLET GT SCH ×3 (05:06→21:20)
[2019-10-05] MEDS: CALCIUM CARBONATE 500 MG TAB.CHEW GT SCH ×2 (05:06→17:48)
[2019-10-05 07:56] VITALS: BP 106/61
[2019-10-05] MEDS: LACOSAMIDE 100 MG/10 ML UDC GT SCH ×2 (08:00→20:25)
[2019-10-05] MEDS: levETIRAcetam 500 MG/5 ML LIQUID UDC GT SCH ×2 (08:00→20:25)
[2019-10-05] MEDS: AMLODIPINE 10 MG TABLET GT SCH (09:00)
[2019-10-05] MEDS: METOPROLOL TARTRATE 50 MG TABLET GT SCH ×2 (09:00→20:25)
[2019-10-05] MEDS: HYDROGEN PEROXIDE 3% 118 ML BOTTLE TOP SCH ×2 (09:00→21:39)
[2019-10-05] MEDS: ACIDOPHILUS/BULGARICUS CHEW TAB GT SCH ×2 (09:06→20:25)
[2019-10-05] MEDS: NUTRISOURCE FIBER 4 GM PACKET GT SCH (09:08)
[2019-10-05] MEDS: COD LIVER OIL/ZINC OXIDE OINT 113 GM TUBE TP SCH ×2 (09:08→20:26)
[2019-10-05] MEDS: CLINDAMYCIN TP SCH (09:08)
[2019-10-05] MEDS: NEOMY/BACITRA/POLYMYXIN B OINT UD PACKET TP SCH (09:09)
[2019-10-05] MEDS: HEPARIN SODIUM,PORCINE 5,000 UNITS/ML VIAL SQ SCH ×2 (09:10→20:26)
[2019-10-05] MEDS: JEVITY 1.2 1000 ML LIQUID GT PRN (13:10)
[2019-10-05] MEDS: FERROUS SULFATE 330 MG/7.5 ML UDC- FOR SA ONLY GT SCH (20:25)
[2019-10-05] MEDS: MULTIVIT, IRON, MIN NO. 8, FA TABLET GT SCH (20:26)
[2019-10-05] MEDS: ADAPALENE 0.3% TP SCH (20:26)
[2019-10-05] MEDS: MINERAL OIL/PETROLATUM,WHITE 57 GM TUBE TP SCH (20:26)
[2019-10-05] MEDS: MELATONIN 5MG TABLET GT SCH (20:26)
[2019-10-05 20:56] VITALS: BP 142/90
[2019-10-06] MEDS: JEVITY 1.2 1000 ML LIQUID GT PRN ×2 (01:48→20:38)
[2019-10-06] MEDS: hydrALAZINE HCL 10 MG TABLET GT SCH ×3 (05:44→21:35)
[2019-10-06] MEDS: CALCIUM CARBONATE 500 MG TAB.CHEW GT SCH ×2 (05:44→17:44)
[2019-10-06] MEDS: FAMOTIDINE 20 MG TABLET GT SCH (05:44)
[2019-10-06 08:00] VITALS: BP 109/63
[2019-10-06] MEDS: levETIRAcetam 500 MG/5 ML LIQUID UDC GT SCH ×2 (08:00→20:20)
[2019-10-06] MEDS: LACOSAMIDE 100 MG/10 ML UDC GT SCH ×2 (08:00→20:20)
[2019-10-06] MEDS: NEOMY/BACITRA/POLYMYXIN B OINT UD PACKET TP SCH (09:00)
[2019-10-06] MEDS: CLINDAMYCIN TP SCH (09:00)
[2019-10-06] MEDS: METOPROLOL TARTRATE 50 MG TABLET GT SCH ×2 (09:00→20:21)
[2019-10-06] MEDS: COD LIVER OIL/ZINC OXIDE OINT 113 GM TUBE TP SCH ×2 (09:00→20:21)
[2019-10-06] MEDS: AMLODIPINE 10 MG TABLET GT SCH (09:00)
[2019-10-06] MEDS: HYDROGEN PEROXIDE 3% 118 ML BOTTLE TOP SCH ×2 (09:00→20:21)
[2019-10-06] MEDS: NUTRISOURCE FIBER 4 GM PACKET GT SCH (09:00)
[2019-10-06] MEDS: ACIDOPHILUS/BULGARICUS CHEW TAB GT SCH ×2 (09:00→20:20)
[2019-10-06] MEDS: HEPARIN SODIUM,PORCINE 5,000 UNITS/ML VIAL SQ SCH ×2 (09:00→20:32)
--- NOTE | 2019-10-06 12:11 | NUR ---
SAPNA sent patient mother Abdoul and brother Eugene an email informing them that effective October 06, video chats with the patient will be done through ZOOM.
--- NOTE | 2019-10-06 12:40 | NUR ---
DR. SOTO AND QUAN Sharma WERE AWARE OF PT'S BODY " L" SHAPE POSITIONING TENDENCY WITH STIFF STRAIGHT LEGS IT WAS REPORTED TODAY BY CLEANING MAID'S WHEN DOING CARE.NEW ORDER CARRIED OUT FROM QUAN Sharma
--- NOTE | 2019-10-06 19:45 | NUR ---
B/P: 164/70 HR: 123 Patient looks uncomfortable, changed diaper, turned and repositioned for comfort, 02 sat @ 97%, no SOB noted,kept clean and comfortable will continue monitor.
[2019-10-06] MEDS: FERROUS SULFATE 330 MG/7.5 ML UDC- FOR SA ONLY GT SCH (20:20)
[2019-10-06] MEDS: MINERAL OIL/PETROLATUM,WHITE 57 GM TUBE TP SCH (20:21)
[2019-10-06] MEDS: MULTIVIT, IRON, MIN NO. 8, FA TABLET GT SCH (20:21)
[2019-10-06] MEDS: ADAPALENE 0.3% TP SCH (20:21)
[2019-10-06] MEDS: MELATONIN 5MG TABLET GT SCH (20:21)
[2019-10-06 20:46] VITALS: BP 164/70
[2019-10-06 21:30] VITALS: BP 146/69
--- NOTE | 2019-10-06 21:30 | NUR ---
B/P: 146/69 HR: 98, no signs of discomfort, sleeping comfortable, 02 sat @ 99%, kept clean and comfortable.
[2019-10-07] MEDS: hydrALAZINE HCL 10 MG TABLET GT SCH ×3 (05:39→22:00)
[2019-10-07] MEDS: CALCIUM CARBONATE 500 MG TAB.CHEW GT SCH ×2 (05:40→18:34)
[2019-10-07] MEDS: FAMOTIDINE 20 MG TABLET GT SCH (05:40)
[2019-10-07] MEDS: HYDROGEN PEROXIDE 3% 118 ML BOTTLE TOP SCH ×2 (07:56→21:20)
[2019-10-07 08:00] VITALS: BP 117/68
[2019-10-07] MEDS: ACIDOPHILUS/BULGARICUS CHEW TAB GT SCH ×2 (08:15→20:07)
[2019-10-07] MEDS: LACOSAMIDE 100 MG/10 ML UDC GT SCH ×2 (08:15→20:06)
[2019-10-07] MEDS: levETIRAcetam 500 MG/5 ML LIQUID UDC GT SCH ×2 (08:15→20:05)
[2019-10-07] MEDS: AMLODIPINE 10 MG TABLET GT SCH (08:16)
[2019-10-07] MEDS: NUTRISOURCE FIBER 4 GM PACKET GT SCH (08:16)
[2019-10-07] MEDS: CLINDAMYCIN TP SCH (08:16)
[2019-10-07] MEDS: METOPROLOL TARTRATE 50 MG TABLET GT SCH ×2 (08:16→20:08)
[2019-10-07] MEDS: COD LIVER OIL/ZINC OXIDE OINT 113 GM TUBE TP SCH ×2 (08:16→20:09)
[2019-10-07] MEDS: HEPARIN SODIUM,PORCINE 5,000 UNITS/ML VIAL SQ SCH ×2 (08:17→20:09)
[2019-10-07] MEDS: NEOMY/BACITRA/POLYMYXIN B OINT UD PACKET TP SCH (08:17)
[2019-10-07 11:06] LABS: CALCITRIOL VIT D,1,25 DIHYDROX < 5.0 pg/mL (19.9-79.3)
--- NOTE | 2019-10-07 18:55 | NUR ---
pt stable at this time. Tried video calling the family several times but no response. Will endorse to the next shift.
[2019-10-07] MEDS: JEVITY 1.2 1000 ML LIQUID GT PRN (18:58)
[2019-10-07] MEDS: FERROUS SULFATE 330 MG/7.5 ML UDC- FOR SA ONLY GT SCH (20:06)
[2019-10-07] MEDS: MELATONIN 5MG TABLET GT SCH (20:08)
[2019-10-07] MEDS: MULTIVIT, IRON, MIN NO. 8, FA TABLET GT SCH (20:08)
[2019-10-07] MEDS: ADAPALENE 0.3% TP SCH (20:10)
[2019-10-07] MEDS: MINERAL OIL/PETROLATUM,WHITE 57 GM TUBE TP SCH (20:10)
[2019-10-07 20:46] VITALS: BP 116/60
[2019-10-08] MEDS: hydrALAZINE HCL 10 MG TABLET GT SCH ×3 (06:00→22:00)
[2019-10-08] MEDS: CALCIUM CARBONATE 500 MG TAB.CHEW GT SCH ×2 (06:21→18:27)
[2019-10-08] MEDS: FAMOTIDINE 20 MG TABLET GT SCH (06:21)
[2019-10-08 08:00] VITALS: BP 113/66
[2019-10-08] MEDS: levETIRAcetam 500 MG/5 ML LIQUID UDC GT SCH ×2 (08:13→20:02)
[2019-10-08] MEDS: LACOSAMIDE 100 MG/10 ML UDC GT SCH ×2 (08:19→20:02)
[2019-10-08] MEDS: ACIDOPHILUS/BULGARICUS CHEW TAB GT SCH ×2 (08:19→20:03)
[2019-10-08] MEDS: METOPROLOL TARTRATE 50 MG TABLET GT SCH ×2 (08:20→20:03)
[2019-10-08] MEDS: AMLODIPINE 10 MG TABLET GT SCH (08:27)
[2019-10-08] MEDS: NUTRISOURCE FIBER 4 GM PACKET GT SCH (08:27)
[2019-10-08] MEDS: HEPARIN SODIUM,PORCINE 5,000 UNITS/ML VIAL SQ SCH ×2 (08:30→20:04)
[2019-10-08] MEDS: COD LIVER OIL/ZINC OXIDE OINT 113 GM TUBE TP SCH ×2 (08:31→20:06)
[2019-10-08] MEDS: NEOMY/BACITRA/POLYMYXIN B OINT UD PACKET TP SCH (08:33)
[2019-10-08] MEDS: CLINDAMYCIN TP SCH (08:33)
[2019-10-08] MEDS: HYDROGEN PEROXIDE 3% 118 ML BOTTLE TOP SCH ×2 (09:00→21:49)
[2019-10-08] MEDS: JEVITY 1.2 1000 ML LIQUID GT PRN (11:19)
--- NOTE | 2019-10-08 15:30 | NUR ---
PT'S MOTHER DID COMMUNICATE WITH PT. VIA ZOOM 5 MIN.
[2019-10-08 20:00] VITALS: BP 130/78
[2019-10-08] MEDS: FERROUS SULFATE 330 MG/7.5 ML UDC- FOR SA ONLY GT SCH (20:02)
[2019-10-08] MEDS: MELATONIN 5MG TABLET GT SCH (20:03)
[2019-10-08] MEDS: MULTIVIT, IRON, MIN NO. 8, FA TABLET GT SCH (20:04)
[2019-10-08] MEDS: ADAPALENE 0.3% TP SCH (20:06)
[2019-10-08] MEDS: MINERAL OIL/PETROLATUM,WHITE 57 GM TUBE TP SCH (20:06)
[2019-10-09] MEDS: hydrALAZINE HCL 10 MG TABLET GT SCH ×3 (06:00→22:00)
[2019-10-09] MEDS: JEVITY 1.2 1000 ML LIQUID GT PRN (06:00)
[2019-10-09] MEDS: FAMOTIDINE 20 MG TABLET GT SCH (06:14)
[2019-10-09] MEDS: CALCIUM CARBONATE 500 MG TAB.CHEW GT SCH ×2 (06:14→17:10)
[2019-10-09] MEDS: HYDROGEN PEROXIDE 3% 118 ML BOTTLE TOP SCH ×2 (07:18→21:21)
[2019-10-09 08:00] VITALS: BP 120/64
[2019-10-09] MEDS: METOPROLOL TARTRATE 50 MG TABLET GT SCH ×2 (08:45→20:15)
[2019-10-09] MEDS: ACIDOPHILUS/BULGARICUS CHEW TAB GT SCH ×2 (08:45→20:13)
[2019-10-09] MEDS: LACOSAMIDE 100 MG/10 ML UDC GT SCH ×2 (08:45→20:11)
[2019-10-09] MEDS: levETIRAcetam 500 MG/5 ML LIQUID UDC GT SCH ×2 (08:45→20:10)
[2019-10-09] MEDS: NUTRISOURCE FIBER 4 GM PACKET GT SCH (08:46)
[2019-10-09] MEDS: AMLODIPINE 10 MG TABLET GT SCH (08:46)
[2019-10-09] MEDS: HEPARIN SODIUM,PORCINE 5,000 UNITS/ML VIAL SQ SCH ×2 (08:48→20:19)
[2019-10-09] MEDS: COD LIVER OIL/ZINC OXIDE OINT 113 GM TUBE TP SCH ×2 (08:48→20:21)
[2019-10-09] MEDS: CLINDAMYCIN TP SCH (08:48)
--- NOTE | 2019-10-09 14:16 | NUR ---
This SAPNA called NIKI Nam [phone] in response to a voicemail message that Viv has left this SW earlier today. This SAPNA was able to connect with Viv. Viv wanted to follow-up and see if there were any updates regarding the patient and the report made. SAPNA stated that the facility continues to maintain visitation restrictions and therefore there were no updates to report at this time. Viv expressed understanding and stated that she did not have any other questions at this time.
--- NOTE | 2019-10-09 18:21 | NUR ---
SEEM AND EXAMINED BY DR. FORREST, WITH NEW ORDERS, NOTED AND CARRIED OUT.
[2019-10-09 20:07] VITALS: BP 113/77
[2019-10-09] MEDS: FERROUS SULFATE 330 MG/7.5 ML UDC- FOR SA ONLY GT SCH (20:11)
[2019-10-09] MEDS: MELATONIN 5MG TABLET GT SCH (20:15)
[2019-10-09] MEDS: MULTIVIT, IRON, MIN NO. 8, FA TABLET GT SCH (20:17)
[2019-10-09] MEDS: MINERAL OIL/PETROLATUM,WHITE 57 GM TUBE TP SCH (20:21)
[2019-10-09] MEDS: ADAPALENE 0.3% TP SCH (20:21)
[2019-10-10] MEDS: JEVITY 1.2 1000 ML LIQUID GT PRN ×2 (00:30→17:17)
[2019-10-10] MEDS: hydrALAZINE HCL 10 MG TABLET GT SCH ×3 (06:00→22:00)
[2019-10-10] MEDS: CALCIUM CARBONATE 500 MG TAB.CHEW GT SCH ×2 (06:11→17:02)
[2019-10-10] MEDS: FAMOTIDINE 20 MG TABLET GT SCH (06:11)
[2019-10-10 08:00] VITALS: BP 117/59
[2019-10-10] MEDS: LACOSAMIDE 100 MG/10 ML UDC GT SCH ×2 (08:00→20:21)
[2019-10-10] MEDS: levETIRAcetam 500 MG/5 ML LIQUID UDC GT SCH ×2 (08:00→20:21)
[2019-10-10] MEDS: HYDROGEN PEROXIDE 3% 118 ML BOTTLE TOP SCH ×2 (09:00→20:34)
[2019-10-10] MEDS: ACIDOPHILUS/BULGARICUS CHEW TAB GT SCH ×2 (09:50→20:21)
[2019-10-10] MEDS: NUTRISOURCE FIBER 4 GM PACKET GT SCH (09:52)
[2019-10-10] MEDS: AMLODIPINE 10 MG TABLET GT SCH (09:52)
[2019-10-10] MEDS: HEPARIN SODIUM,PORCINE 5,000 UNITS/ML VIAL SQ SCH ×2 (09:53→21:00)
[2019-10-10] MEDS: CLINDAMYCIN TP SCH (09:54)
[2019-10-10] MEDS: COD LIVER OIL/ZINC OXIDE OINT 113 GM TUBE TP SCH ×2 (09:54→20:22)
[2019-10-10] MEDS: METOPROLOL TARTRATE 50 MG TABLET GT SCH ×2 (09:55→20:22)
--- NOTE | 2019-10-10 15:30 | NUR ---
Zoom meeting provided for patient and mom Abdoul.
[2019-10-10 20:00] VITALS: BP 114/71
[2019-10-10] MEDS: FERROUS SULFATE 330 MG/7.5 ML UDC- FOR SA ONLY GT SCH (20:21)
[2019-10-10] MEDS: MINERAL OIL/PETROLATUM,WHITE 57 GM TUBE TP SCH (20:22)
[2019-10-10] MEDS: MELATONIN 5MG TABLET GT SCH (20:22)
[2019-10-10] MEDS: MULTIVIT, IRON, MIN NO. 8, FA TABLET GT SCH (20:22)
[2019-10-10] MEDS: ADAPALENE 0.3% TP SCH (20:23)
[2019-10-11] MEDS: FAMOTIDINE 20 MG TABLET GT SCH (06:30)
[2019-10-11] MEDS: CALCIUM CARBONATE 500 MG TAB.CHEW GT SCH ×2 (06:30→17:16)
[2019-10-11] MEDS: hydrALAZINE HCL 10 MG TABLET GT SCH ×4 (06:30→22:00)
[2019-10-11] MEDS: CHOLECALCIFEROL 1,000 UNIT TABLET GT SCH (06:31)
[2019-10-11 06:48] VITALS: BP 112/61
[2019-10-11] MEDS: HYDROGEN PEROXIDE 3% 118 ML BOTTLE TOP SCH ×2 (07:16→21:32)
[2019-10-11] MEDS: levETIRAcetam 500 MG/5 ML LIQUID UDC GT SCH ×2 (08:21→20:13)
[2019-10-11] MEDS: ACIDOPHILUS/BULGARICUS CHEW TAB GT SCH ×2 (08:21→20:13)
[2019-10-11] MEDS: LACOSAMIDE 100 MG/10 ML UDC GT SCH ×2 (08:21→20:13)
[2019-10-11] MEDS: METOPROLOL TARTRATE 50 MG TABLET GT SCH ×2 (08:22→20:15)
[2019-10-11] MEDS: NUTRISOURCE FIBER 4 GM PACKET GT SCH (08:22)
[2019-10-11] MEDS: AMLODIPINE 10 MG TABLET GT SCH (08:22)
[2019-10-11] MEDS: HEPARIN SODIUM,PORCINE 5,000 UNITS/ML VIAL SQ SCH ×2 (08:25→20:16)
[2019-10-11] MEDS: COD LIVER OIL/ZINC OXIDE OINT 113 GM TUBE TP SCH ×2 (08:26→20:16)
[2019-10-11] MEDS: CLINDAMYCIN TP SCH (08:26)
[2019-10-11] MEDS: JEVITY 1.2 1000 ML LIQUID GT PRN (12:45)
[2019-10-11 20:00] VITALS: BP 120/70
[2019-10-11] MEDS: FERROUS SULFATE 330 MG/7.5 ML UDC- FOR SA ONLY GT SCH (20:13)
[2019-10-11] MEDS: MELATONIN 5MG TABLET GT SCH (20:15)
[2019-10-11] MEDS: MULTIVIT, IRON, MIN NO. 8, FA TABLET GT SCH (20:15)
[2019-10-11] MEDS: MINERAL OIL/PETROLATUM,WHITE 57 GM TUBE TP SCH (20:16)
[2019-10-11] MEDS: ADAPALENE 0.3% TP SCH (20:17)
[2019-10-11 22:00] VITALS: BP 115/68
[2019-10-11 22:14] VITALS: BP 112/67
[2019-10-12] MEDS: hydrALAZINE HCL 10 MG TABLET GT SCH ×4 (05:55→22:00)
[2019-10-12] MEDS: CHOLECALCIFEROL 1,000 UNIT TABLET GT SCH (05:55)
[2019-10-12] MEDS: FAMOTIDINE 20 MG TABLET GT SCH (05:55)
[2019-10-12] MEDS: CALCIUM CARBONATE 500 MG TAB.CHEW GT SCH ×2 (05:55→17:20)
[2019-10-12 08:01] VITALS: BP 118/50
[2019-10-12] MEDS: LACOSAMIDE 100 MG/10 ML UDC GT SCH ×2 (08:32→20:16)
[2019-10-12] MEDS: levETIRAcetam 500 MG/5 ML LIQUID UDC GT SCH ×2 (08:32→20:16)
[2019-10-12] MEDS: ACIDOPHILUS/BULGARICUS CHEW TAB GT SCH ×2 (08:33→20:17)
[2019-10-12] MEDS: METOPROLOL TARTRATE 50 MG TABLET GT SCH ×2 (08:34→20:17)
[2019-10-12] MEDS: NUTRISOURCE FIBER 4 GM PACKET GT SCH (08:34)
[2019-10-12] MEDS: AMLODIPINE 10 MG TABLET GT SCH (08:34)
[2019-10-12] MEDS: HEPARIN SODIUM,PORCINE 5,000 UNITS/ML VIAL SQ SCH ×2 (08:40→20:18)
[2019-10-12] MEDS: COD LIVER OIL/ZINC OXIDE OINT 113 GM TUBE TP SCH ×2 (08:40→20:19)
[2019-10-12] MEDS: CLINDAMYCIN TP SCH (08:41)
[2019-10-12] MEDS: JEVITY 1.2 1000 ML LIQUID GT PRN (08:41)
[2019-10-12] MEDS: HYDROGEN PEROXIDE 3% 118 ML BOTTLE TOP SCH ×2 (10:20→21:00)
[2019-10-12] MEDS: FERROUS SULFATE 330 MG/7.5 ML UDC- FOR SA ONLY GT SCH (20:16)
[2019-10-12] MEDS: MULTIVIT, IRON, MIN NO. 8, FA TABLET GT SCH (20:17)
[2019-10-12] MEDS: MELATONIN 5MG TABLET GT SCH (20:17)
[2019-10-12] MEDS: ADAPALENE 0.3% TP SCH (20:19)
[2019-10-12] MEDS: MINERAL OIL/PETROLATUM,WHITE 57 GM TUBE TP SCH (20:19)
[2019-10-12 23:26] VITALS: BP 102/66
[2019-10-13] MEDS: JEVITY 1.2 1000 ML LIQUID GT PRN ×2 (01:55→18:32)
[2019-10-13] MEDS: CALCIUM CARBONATE 500 MG TAB.CHEW GT SCH ×2 (05:01→17:23)
[2019-10-13] MEDS: CHOLECALCIFEROL 1,000 UNIT TABLET GT SCH (05:01)
[2019-10-13] MEDS: FAMOTIDINE 20 MG TABLET GT SCH (05:01)
[2019-10-13] MEDS: hydrALAZINE HCL 10 MG TABLET GT SCH ×3 (05:01→22:00)
[2019-10-13 08:00] VITALS: BP 105/70
[2019-10-13] MEDS: LACOSAMIDE 100 MG/10 ML UDC GT SCH ×2 (08:01→20:30)
[2019-10-13] MEDS: levETIRAcetam 500 MG/5 ML LIQUID UDC GT SCH ×2 (08:01→20:30)
[2019-10-13] MEDS: ACIDOPHILUS/BULGARICUS CHEW TAB GT SCH ×2 (08:02→20:30)
[2019-10-13] MEDS: NUTRISOURCE FIBER 4 GM PACKET GT SCH (08:03)
[2019-10-13] MEDS: HEPARIN SODIUM,PORCINE 5,000 UNITS/ML VIAL SQ SCH ×2 (08:06→20:29)
[2019-10-13] MEDS: CLINDAMYCIN TP SCH (08:06)
[2019-10-13] MEDS: COD LIVER OIL/ZINC OXIDE OINT 113 GM TUBE TP SCH ×2 (08:06→20:31)
[2019-10-13] MEDS: HYDROGEN PEROXIDE 3% 118 ML BOTTLE TOP SCH ×2 (08:28→21:57)
[2019-10-13] MEDS: METOPROLOL TARTRATE 50 MG TABLET GT SCH ×2 (08:39→20:34)
[2019-10-13] MEDS: AMLODIPINE 10 MG TABLET GT SCH (08:40)
--- NOTE | 2019-10-13 10:55 | NUR ---
Seen by Santos Johnson, with no new order.
--- NOTE | 2019-10-13 15:10 | NUR ---
VIDEO CHAT DONE WITH PATIENT'S MOTHER .
[2019-10-13] MEDS: MELATONIN 5MG TABLET GT SCH (20:30)
[2019-10-13] MEDS: FERROUS SULFATE 330 MG/7.5 ML UDC- FOR SA ONLY GT SCH (20:30)
[2019-10-13] MEDS: ADAPALENE 0.3% TP SCH (20:31)
[2019-10-13] MEDS: MINERAL OIL/PETROLATUM,WHITE 57 GM TUBE TP SCH (20:31)
[2019-10-13] MEDS: MULTIVIT, IRON, MIN NO. 8, FA TABLET GT SCH (20:31)
[2019-10-13 20:44] VITALS: BP 109/63
[2019-10-14] MEDS: hydrALAZINE HCL 10 MG TABLET GT SCH ×3 (05:33→22:00)
[2019-10-14] MEDS: CHOLECALCIFEROL 1,000 UNIT TABLET GT SCH (05:33)
[2019-10-14] MEDS: CALCIUM CARBONATE 500 MG TAB.CHEW GT SCH ×2 (05:33→17:22)
[2019-10-14] MEDS: FAMOTIDINE 20 MG TABLET GT SCH (05:33)
[2019-10-14 07:29] LABS: BASOPHILS % (AUTO) 0.6 % (0.0-2.0); EOSINOPHILS # (AUTO) 0.6 K/uL (0.0-0.7); EOSINOPHILS % (AUTO) 7.6 % (0.0-7.0); HEMATOCRIT 37.6 % (31.2-41.9); HEMOGLOBIN 12.8 g/dL (10.9-14.3); LYMPHOCYTES # (AUTO) 2.8 K/uL (20.0-40.0); MEAN CORPUSCULAR HEMOGLOBIN 31.3 uug (24.7-32.8); MEAN CORPUSCULAR HGB CONC 34 g/dL (32.3-35.6); MONOCYTES # (AUTO) 0.5 K/uL (2.0-10.0); MONOCYTES % (AUTO) 6.8 % (0.0-11.0); PLATELET COUNT (AUTO) 377 K/uL (179-408); RED BLOOD CELL COUNT(AUTO) 4.09 MIL/uL (3.63-4.92)
[2019-10-14 07:43] LABS: CREATININE 0.6 mg/dL (0.6-1.3); PHOSPHOROUS 4.8 mg/dL (2.5-4.9); POTASSIUM 4.6 mmol/L (3.5-5.1)
[2019-10-14 08:00] VITALS: BP 118/67
[2019-10-14] MEDS: LACOSAMIDE 100 MG/10 ML UDC GT SCH ×3 (08:00→20:06)
--- NOTE | 2019-10-14 08:00 | NUR ---
vimpat 200mg administered at 0800 as ordered.
[2019-10-14] MEDS: levETIRAcetam 500 MG/5 ML LIQUID UDC GT SCH ×2 (08:16→20:06)
[2019-10-14] MEDS: CLINDAMYCIN TP SCH (08:17)
[2019-10-14] MEDS: METOPROLOL TARTRATE 50 MG TABLET GT SCH ×2 (08:17→20:11)
[2019-10-14] MEDS: COD LIVER OIL/ZINC OXIDE OINT 113 GM TUBE TP SCH ×2 (08:17→20:12)
[2019-10-14] MEDS: NUTRISOURCE FIBER 4 GM PACKET GT SCH (08:17)
[2019-10-14] MEDS: ACIDOPHILUS/BULGARICUS CHEW TAB GT SCH ×2 (08:17→20:10)
[2019-10-14] MEDS: AMLODIPINE 10 MG TABLET GT SCH (08:17)
[2019-10-14] MEDS: HEPARIN SODIUM,PORCINE 5,000 UNITS/ML VIAL SQ SCH ×2 (08:20→20:08)
[2019-10-14] MEDS: HYDROGEN PEROXIDE 3% 118 ML BOTTLE TOP SCH ×2 (08:53→21:23)
--- NOTE | 2019-10-14 14:45 | NUR ---
VIDEO CHAT DONE WITH PATIENT'S MOTHER.
[2019-10-14 20:00] VITALS: BP 117/77
[2019-10-14] MEDS: FERROUS SULFATE 330 MG/7.5 ML UDC- FOR SA ONLY GT SCH (20:10)
[2019-10-14] MEDS: MULTIVIT, IRON, MIN NO. 8, FA TABLET GT SCH (20:11)
[2019-10-14] MEDS: MELATONIN 5MG TABLET GT SCH (20:11)
[2019-10-14] MEDS: ADAPALENE 0.3% TP SCH (20:12)
[2019-10-14] MEDS: MINERAL OIL/PETROLATUM,WHITE 57 GM TUBE TP SCH (20:12)
[2019-10-15] MEDS: hydrALAZINE HCL 10 MG TABLET GT SCH ×3 (05:56→22:28)
[2019-10-15] MEDS: CALCIUM CARBONATE 500 MG TAB.CHEW GT SCH ×2 (05:57→17:25)
[2019-10-15] MEDS: CHOLECALCIFEROL 1,000 UNIT TABLET GT SCH (05:57)
[2019-10-15] MEDS: FAMOTIDINE 20 MG TABLET GT SCH (05:57)
[2019-10-15 08:00] VITALS: BP 130/56
[2019-10-15] MEDS: LACOSAMIDE 100 MG/10 ML UDC GT SCH ×3 (08:00→20:07)
--- NOTE | 2019-10-15 08:00 | NUR ---
already given at 0800 as ordered.
[2019-10-15] MEDS: ACIDOPHILUS/BULGARICUS CHEW TAB GT SCH ×2 (08:25→20:07)
[2019-10-15] MEDS: levETIRAcetam 500 MG/5 ML LIQUID UDC GT SCH ×2 (08:25→20:07)
[2019-10-15] MEDS: METOPROLOL TARTRATE 50 MG TABLET GT SCH ×2 (08:26→20:10)
[2019-10-15] MEDS: NUTRISOURCE FIBER 4 GM PACKET GT SCH (08:26)
[2019-10-15] MEDS: AMLODIPINE 10 MG TABLET GT SCH (08:26)
[2019-10-15] MEDS: HEPARIN SODIUM,PORCINE 5,000 UNITS/ML VIAL SQ SCH ×2 (08:27→20:14)
[2019-10-15] MEDS: COD LIVER OIL/ZINC OXIDE OINT 113 GM TUBE TP SCH ×2 (09:07→20:08)
[2019-10-15] MEDS: CLINDAMYCIN TP SCH (09:07)
[2019-10-15] MEDS: HYDROGEN PEROXIDE 3% 118 ML BOTTLE TOP SCH ×2 (09:19→21:24)
--- NOTE | 2019-10-15 15:20 | NUR ---
video chat done with patient's mother.
--- NOTE | 2019-10-15 17:11 | NUR ---
New orders to do the Baseline [facility] Covid 19 test requirement.
[2019-10-15 20:00] VITALS: BP 98/55
[2019-10-15] MEDS: MULTIVIT, IRON, MIN NO. 8, FA TABLET GT SCH (20:07)
[2019-10-15] MEDS: MELATONIN 5MG TABLET GT SCH (20:07)
[2019-10-15] MEDS: FERROUS SULFATE 330 MG/7.5 ML UDC- FOR SA ONLY GT SCH (20:07)
[2019-10-15] MEDS: MINERAL OIL/PETROLATUM,WHITE 57 GM TUBE TP SCH (20:08)
[2019-10-15] MEDS: ADAPALENE 0.3% TP SCH (20:09)
[2019-10-15] MEDS: JEVITY 1.2 1000 ML LIQUID GT PRN (22:55)
[2019-10-16] MEDS: hydrALAZINE HCL 10 MG TABLET GT SCH ×3 (05:34→22:26)
[2019-10-16] MEDS: CHOLECALCIFEROL 1,000 UNIT TABLET GT SCH (05:35)
[2019-10-16] MEDS: FAMOTIDINE 20 MG TABLET GT SCH (05:35)
[2019-10-16] MEDS: CALCIUM CARBONATE 500 MG TAB.CHEW GT SCH ×2 (05:35→17:14)
[2019-10-16] MEDS: HYDROGEN PEROXIDE 3% 118 ML BOTTLE TOP SCH ×2 (07:26→21:04)
[2019-10-16 08:00] VITALS: BP 129/62
[2019-10-16] MEDS: LACOSAMIDE 100 MG/10 ML UDC GT SCH ×2 (08:39→20:30)
[2019-10-16] MEDS: levETIRAcetam 500 MG/5 ML LIQUID UDC GT SCH ×2 (08:39→20:30)
[2019-10-16] MEDS: ACIDOPHILUS/BULGARICUS CHEW TAB GT SCH ×2 (08:41→20:30)
[2019-10-16] MEDS: METOPROLOL TARTRATE 50 MG TABLET GT SCH ×2 (08:41→20:32)
[2019-10-16] MEDS: AMLODIPINE 10 MG TABLET GT SCH (08:43)
[2019-10-16] MEDS: NUTRISOURCE FIBER 4 GM PACKET GT SCH (08:44)
[2019-10-16] MEDS: COD LIVER OIL/ZINC OXIDE OINT 113 GM TUBE TP SCH ×2 (08:45→20:33)
[2019-10-16] MEDS: CLINDAMYCIN TP SCH (08:45)
[2019-10-16] MEDS: HEPARIN SODIUM,PORCINE 5,000 UNITS/ML VIAL SQ SCH ×2 (08:45→20:31)
[2019-10-16] MEDS: JEVITY 1.2 1000 ML LIQUID GT PRN (17:40)
[2019-10-16 20:00] VITALS: BP 142/81
[2019-10-16] MEDS: MELATONIN 5MG TABLET GT SCH (20:30)
[2019-10-16] MEDS: FERROUS SULFATE 330 MG/7.5 ML UDC- FOR SA ONLY GT SCH (20:30)
[2019-10-16] MEDS: MULTIVIT, IRON, MIN NO. 8, FA TABLET GT SCH (20:30)
[2019-10-16] MEDS: MINERAL OIL/PETROLATUM,WHITE 57 GM TUBE TP SCH (20:33)
[2019-10-16] MEDS: ADAPALENE 0.3% TP SCH (20:33)
[2019-10-17] MEDS: FAMOTIDINE 20 MG TABLET GT SCH (05:22)
[2019-10-17] MEDS: hydrALAZINE HCL 10 MG TABLET GT SCH ×3 (05:22→22:00)
[2019-10-17] MEDS: CALCIUM CARBONATE 500 MG TAB.CHEW GT SCH (05:22)
[2019-10-17] MEDS: CHOLECALCIFEROL 1,000 UNIT TABLET GT SCH (05:23)
[2019-10-17 08:00] VITALS: BP 106/63
[2019-10-17] MEDS: METOPROLOL TARTRATE 50 MG TABLET GT SCH ×2 (08:52→20:41)
[2019-10-17] MEDS: AMLODIPINE 10 MG TABLET GT SCH (08:52)
[2019-10-17] MEDS: LACOSAMIDE 100 MG/10 ML UDC GT SCH ×2 (08:52→20:41)
[2019-10-17] MEDS: levETIRAcetam 500 MG/5 ML LIQUID UDC GT SCH ×2 (08:52→20:41)
[2019-10-17] MEDS: ACIDOPHILUS/BULGARICUS CHEW TAB GT SCH ×2 (08:52→20:41)
[2019-10-17] MEDS: CLINDAMYCIN TP SCH (08:53)
[2019-10-17] MEDS: COD LIVER OIL/ZINC OXIDE OINT 113 GM TUBE TP SCH ×2 (08:53→20:41)
[2019-10-17] MEDS: NUTRISOURCE FIBER 4 GM PACKET GT SCH (08:53)
[2019-10-17] MEDS: HEPARIN SODIUM,PORCINE 5,000 UNITS/ML VIAL SQ SCH ×2 (08:53→20:42)
[2019-10-17] MEDS: HYDROGEN PEROXIDE 3% 118 ML BOTTLE TOP SCH ×2 (08:59→21:53)
--- NOTE | 2019-10-17 17:29 | NUR ---
NEW ORDER WAS CARRIED OUT FROM DR. CARRILLO TO D/C LINDSEY AND VIT Aristides.
--- NOTE | 2019-10-17 18:30 | NUR ---
PT. NEGATIVE FOR COVID19 .
[2019-10-17 20:00] VITALS: BP 138/91
[2019-10-17] MEDS: FERROUS SULFATE 330 MG/7.5 ML UDC- FOR SA ONLY GT SCH (20:41)
[2019-10-17] MEDS: MELATONIN 5MG TABLET GT SCH (20:41)
[2019-10-17] MEDS: MULTIVIT, IRON, MIN NO. 8, FA TABLET GT SCH (20:41)
[2019-10-17] MEDS: MINERAL OIL/PETROLATUM,WHITE 57 GM TUBE TP SCH (21:53)
[2019-10-17] MEDS: ADAPALENE 0.3% TP SCH (21:54)
[2019-10-18] MEDS: JEVITY 1.2 1000 ML LIQUID GT PRN ×2 (05:13→22:29)
[2019-10-18] MEDS: hydrALAZINE HCL 10 MG TABLET GT SCH ×3 (05:27→22:00)
[2019-10-18] MEDS: FAMOTIDINE 20 MG TABLET GT SCH (05:27)
[2019-10-18 07:42] VITALS: BP 117/68
[2019-10-18] MEDS: levETIRAcetam 500 MG/5 ML LIQUID UDC GT SCH ×2 (08:46→20:21)
[2019-10-18] MEDS: ACIDOPHILUS/BULGARICUS CHEW TAB GT SCH ×2 (08:46→20:21)
[2019-10-18] MEDS: LACOSAMIDE 100 MG/10 ML UDC GT SCH ×2 (08:46→20:21)
[2019-10-18] MEDS: AMLODIPINE 10 MG TABLET GT SCH (08:47)
[2019-10-18] MEDS: NUTRISOURCE FIBER 4 GM PACKET GT SCH (08:47)
[2019-10-18] MEDS: METOPROLOL TARTRATE 50 MG TABLET GT SCH ×2 (08:47→20:21)
[2019-10-18] MEDS: HEPARIN SODIUM,PORCINE 5,000 UNITS/ML VIAL SQ SCH ×2 (08:47→21:08)
[2019-10-18] MEDS: CLINDAMYCIN TP SCH (09:22)
[2019-10-18] MEDS: COD LIVER OIL/ZINC OXIDE OINT 113 GM TUBE TP SCH ×2 (09:22→20:21)
[2019-10-18] MEDS: HYDROGEN PEROXIDE 3% 118 ML BOTTLE TOP SCH ×2 (09:49→21:44)
--- NOTE | 2019-10-18 10:00 | NUR ---
SEEN BY DR. FORREST AND WITH NNO.
--- NOTE | 2019-10-18 15:00 | NUR ---
Assisted video chat with patients, mother at this time.
[2019-10-18 20:00] VITALS: BP 138/93
[2019-10-18] MEDS: ADAPALENE 0.3% TP SCH (20:21)
[2019-10-18] MEDS: MINERAL OIL/PETROLATUM,WHITE 57 GM TUBE TP SCH (20:21)
[2019-10-18] MEDS: MULTIVIT, IRON, MIN NO. 8, FA TABLET GT SCH (20:21)
[2019-10-18] MEDS: MELATONIN 5MG TABLET GT SCH (20:21)
[2019-10-18] MEDS: FERROUS SULFATE 330 MG/7.5 ML UDC- FOR SA ONLY GT SCH (20:21)
[2019-10-18] MEDS: LORAZEPAM 0.5 MG TABLET GT PRN (22:55)
[2019-10-19] MEDS: hydrALAZINE HCL 10 MG TABLET GT SCH ×3 (05:50→22:00)
[2019-10-19] MEDS: FAMOTIDINE 20 MG TABLET GT SCH (05:51)
[2019-10-19 07:55] VITALS: BP 104/62
[2019-10-19] MEDS: METOPROLOL TARTRATE 50 MG TABLET GT SCH ×2 (08:31→21:00)
[2019-10-19] MEDS: ACIDOPHILUS/BULGARICUS CHEW TAB GT SCH ×2 (08:31→21:05)
[2019-10-19] MEDS: LACOSAMIDE 100 MG/10 ML UDC GT SCH ×2 (08:31→20:00)
[2019-10-19] MEDS: AMLODIPINE 10 MG TABLET GT SCH (08:31)
[2019-10-19] MEDS: NUTRISOURCE FIBER 4 GM PACKET GT SCH (08:31)
[2019-10-19] MEDS: levETIRAcetam 500 MG/5 ML LIQUID UDC GT SCH ×2 (08:31→20:00)
[2019-10-19] MEDS: HEPARIN SODIUM,PORCINE 5,000 UNITS/ML VIAL SQ SCH ×2 (08:32→21:00)
[2019-10-19] MEDS: COD LIVER OIL/ZINC OXIDE OINT 113 GM TUBE TP SCH ×2 (08:32→21:06)
[2019-10-19] MEDS: CLINDAMYCIN TP SCH (08:32)
[2019-10-19] MEDS: HYDROGEN PEROXIDE 3% 118 ML BOTTLE TOP SCH ×2 (08:46→21:28)
--- NOTE | 2019-10-19 14:30 | NUR ---
Provided video chat to pt. and her mother with no problem, kept pt clean and comfortable all needs attended and anticipated.
[2019-10-19 20:25] VITALS: BP 108/52
[2019-10-19] MEDS: FERROUS SULFATE 330 MG/7.5 ML UDC- FOR SA ONLY GT SCH (21:05)
[2019-10-19] MEDS: MULTIVIT, IRON, MIN NO. 8, FA TABLET GT SCH (21:06)
[2019-10-19] MEDS: MELATONIN 5MG TABLET GT SCH (21:06)
[2019-10-19] MEDS: MINERAL OIL/PETROLATUM,WHITE 57 GM TUBE TP SCH (21:06)
[2019-10-19] MEDS: ADAPALENE 0.3% TP SCH (21:07)
[2019-10-20] MEDS: hydrALAZINE HCL 10 MG TABLET GT SCH ×3 (06:00→22:00)
[2019-10-20] MEDS: FAMOTIDINE 20 MG TABLET GT SCH (06:31)
[2019-10-20 06:50] VITALS: BP 108/66
[2019-10-20 08:00] VITALS: BP 127/59
[2019-10-20] MEDS: LACOSAMIDE 100 MG/10 ML UDC GT SCH ×2 (08:43→20:17)
[2019-10-20] MEDS: levETIRAcetam 500 MG/5 ML LIQUID UDC GT SCH ×2 (08:43→20:17)
[2019-10-20] MEDS: ACIDOPHILUS/BULGARICUS CHEW TAB GT SCH ×2 (08:43→21:00)
[2019-10-20] MEDS: CLINDAMYCIN TP SCH (08:46)
[2019-10-20] MEDS: HEPARIN SODIUM,PORCINE 5,000 UNITS/ML VIAL SQ SCH ×2 (08:46→21:00)
[2019-10-20] MEDS: COD LIVER OIL/ZINC OXIDE OINT 113 GM TUBE TP SCH ×2 (08:46→21:00)
[2019-10-20] MEDS: NUTRISOURCE FIBER 4 GM PACKET GT SCH (08:46)
[2019-10-20] MEDS: METOPROLOL TARTRATE 50 MG TABLET GT SCH ×2 (08:48→21:00)
[2019-10-20] MEDS: AMLODIPINE 10 MG TABLET GT SCH (08:48)
[2019-10-20] MEDS: JEVITY 1.2 1000 ML LIQUID GT PRN (08:50)
[2019-10-20] MEDS: HYDROGEN PEROXIDE 3% 118 ML BOTTLE TOP SCH ×2 (09:00→21:47)
--- NOTE | 2019-10-20 13:20 | NUR ---
SEEN BY QUAN Sharma AND WITH NNO.
--- NOTE | 2019-10-20 15:10 | NUR ---
Provided Zoom meeting for Patient and mom Abdoul. Mother incompliant with 5 minute Zoom timing.Delays end of meeting with prayers and Statements referring to staff needing to be more companionate and allow her extra time with the patient. Mother reminded of zoom meeting rules that were given to family members by administration when zoom meetings began at unit for patient and family communication in these pandemic times.
[2019-10-20 16:13] VITALS: BP 130/68
[2019-10-20 20:00] VITALS: BP 95/60
[2019-10-20] MEDS: MELATONIN 5MG TABLET GT SCH (21:00)
[2019-10-20] MEDS: ADAPALENE 0.3% TP SCH (21:00)
[2019-10-20] MEDS: MULTIVIT, IRON, MIN NO. 8, FA TABLET GT SCH (21:00)
[2019-10-20] MEDS: MINERAL OIL/PETROLATUM,WHITE 57 GM TUBE TP SCH (21:00)
[2019-10-20] MEDS: FERROUS SULFATE 330 MG/7.5 ML UDC- FOR SA ONLY GT SCH (21:00)
[2019-10-21] VITALS: BP 94/58
[2019-10-21] MEDS: JEVITY 1.2 1000 ML LIQUID GT PRN ×2 (03:47→22:23)
[2019-10-21] MEDS: hydrALAZINE HCL 10 MG TABLET GT SCH ×3 (06:36→22:00)
[2019-10-21] MEDS: FAMOTIDINE 20 MG TABLET GT SCH (06:36)
[2019-10-21 07:04] VITALS: BP 116/64
[2019-10-21 08:00] VITALS: BP 117/62
[2019-10-21] MEDS: levETIRAcetam 500 MG/5 ML LIQUID UDC GT SCH ×2 (08:48→20:01)
[2019-10-21] MEDS: LACOSAMIDE 100 MG/10 ML UDC GT SCH ×2 (08:51→20:01)
[2019-10-21] MEDS: ACIDOPHILUS/BULGARICUS CHEW TAB GT SCH ×2 (08:52→20:04)
[2019-10-21] MEDS: METOPROLOL TARTRATE 50 MG TABLET GT SCH ×2 (08:55→20:06)
[2019-10-21] MEDS: NUTRISOURCE FIBER 4 GM PACKET GT SCH (08:57)
[2019-10-21] MEDS: AMLODIPINE 10 MG TABLET GT SCH (08:57)
[2019-10-21] MEDS: HEPARIN SODIUM,PORCINE 5,000 UNITS/ML VIAL SQ SCH ×2 (08:59→20:12)
[2019-10-21] MEDS: CLINDAMYCIN TP SCH (09:00)
[2019-10-21] MEDS: HYDROGEN PEROXIDE 3% 118 ML BOTTLE TOP SCH ×2 (09:01→21:22)
[2019-10-21] MEDS: COD LIVER OIL/ZINC OXIDE OINT 113 GM TUBE TP SCH ×2 (09:01→20:13)
--- NOTE | 2019-10-21 16:00 | NUR ---
PT. HAD VIDEO CHAT VIA ZOOM WITH PT'S MOTHER.
[2019-10-21] MEDS: ACETAMINOPHEN 650 MG/20 ML UDC- SA PATIENTS-PAIN ONLY GT PRN (16:25)
[2019-10-21 20:00] VITALS: BP 121/81
[2019-10-21] MEDS: FERROUS SULFATE 330 MG/7.5 ML UDC- FOR SA ONLY GT SCH (20:03)
[2019-10-21] MEDS: MULTIVIT, IRON, MIN NO. 8, FA TABLET GT SCH (20:06)
[2019-10-21] MEDS: MELATONIN 5MG TABLET GT SCH (20:06)
[2019-10-21] MEDS: MINERAL OIL/PETROLATUM,WHITE 57 GM TUBE TP SCH (20:13)
[2019-10-21] MEDS: ADAPALENE 0.3% TP SCH (20:13)
[2019-10-21 22:15] VITALS: BP 100/53
[2019-10-22] MEDS: hydrALAZINE HCL 10 MG TABLET GT SCH ×2 (05:55→13:48)
[2019-10-22] MEDS: FAMOTIDINE 20 MG TABLET GT SCH (05:57)
[2019-10-22 06:26] VITALS: BP 99/52
[2019-10-22 08:00] VITALS: BP 126/73
[2019-10-22] MEDS: LACOSAMIDE 100 MG/10 ML UDC GT SCH ×2 (08:00→20:09)
[2019-10-22] MEDS: levETIRAcetam 500 MG/5 ML LIQUID UDC GT SCH ×2 (08:00→20:04)
[2019-10-22] MEDS: HYDROGEN PEROXIDE 3% 118 ML BOTTLE TOP SCH ×2 (09:00→21:50)
[2019-10-22] MEDS: ACIDOPHILUS/BULGARICUS CHEW TAB GT SCH ×2 (09:21→20:09)
[2019-10-22] MEDS: METOPROLOL TARTRATE 50 MG TABLET GT SCH ×2 (09:23→21:00)
[2019-10-22] MEDS: COD LIVER OIL/ZINC OXIDE OINT 113 GM TUBE TP SCH ×2 (09:23→20:13)
[2019-10-22] MEDS: AMLODIPINE 10 MG TABLET GT SCH (09:23)
[2019-10-22] MEDS: NUTRISOURCE FIBER 4 GM PACKET GT SCH (09:23)
[2019-10-22] MEDS: HEPARIN SODIUM,PORCINE 5,000 UNITS/ML VIAL SQ SCH ×2 (09:24→20:13)
[2019-10-22] MEDS: CLINDAMYCIN TP SCH (09:24)
[2019-10-22 20:00] VITALS: BP 117/75
[2019-10-22] MEDS: FERROUS SULFATE 330 MG/7.5 ML UDC- FOR SA ONLY GT SCH (20:09)
[2019-10-22] MEDS: MELATONIN 5MG TABLET GT SCH (20:10)
[2019-10-22] MEDS: MULTIVIT, IRON, MIN NO. 8, FA TABLET GT SCH (20:11)
[2019-10-22] MEDS: ADAPALENE 0.3% TP SCH (20:13)
[2019-10-22] MEDS: MINERAL OIL/PETROLATUM,WHITE 57 GM TUBE TP SCH (20:13)
[2019-10-23] MEDS: JEVITY 1.2 1000 ML LIQUID GT PRN ×2 (04:34→22:22)
[2019-10-23] MEDS: FAMOTIDINE 20 MG TABLET GT SCH (06:07)
[2019-10-23] MEDS: hydrALAZINE HCL 10 MG TABLET GT SCH ×3 (06:07→22:00)
[2019-10-23 08:00] VITALS: BP 138/81
[2019-10-23] MEDS: LACOSAMIDE 100 MG/10 ML UDC GT SCH ×2 (08:00→20:00)
[2019-10-23] MEDS: ACIDOPHILUS/BULGARICUS CHEW TAB GT SCH ×2 (08:00→20:11)
[2019-10-23] MEDS: levETIRAcetam 500 MG/5 ML LIQUID UDC GT SCH ×2 (08:00→20:10)
[2019-10-23] MEDS: AMLODIPINE 10 MG TABLET GT SCH (08:01)
[2019-10-23] MEDS: NUTRISOURCE FIBER 4 GM PACKET GT SCH (08:01)
[2019-10-23] MEDS: HEPARIN SODIUM,PORCINE 5,000 UNITS/ML VIAL SQ SCH ×2 (08:01→20:14)
[2019-10-23] MEDS: METOPROLOL TARTRATE 50 MG TABLET GT SCH ×2 (08:01→21:27)
[2019-10-23] MEDS: COD LIVER OIL/ZINC OXIDE OINT 113 GM TUBE TP SCH ×2 (08:02→20:14)
[2019-10-23] MEDS: CLINDAMYCIN TP SCH (08:02)
[2019-10-23] MEDS: HYDROGEN PEROXIDE 3% 118 ML BOTTLE TOP SCH ×2 (09:00→21:21)
[2019-10-23 09:58] VITALS: BP 105/51
--- NOTE | 2019-10-23 14:02 | NUR ---
SAPNA sent patient's mother Abdoul an email informing her that the next IDT meeting for the patient is scheduled for 10/28/2019 at 11am. In this email, SAPNA asked Abdoul to replay to this SW in order to notify her if she would like to participate in the meeting via speaker phone. SAPNA awaiting response. Addendum: 10/24/19 at 1009 by FERNANDO ALEJO spelling correction: reply
[2019-10-23 20:00] VITALS: BP 112/60
[2019-10-23] MEDS: FERROUS SULFATE 330 MG/7.5 ML UDC- FOR SA ONLY GT SCH (20:10)
[2019-10-23] MEDS: MELATONIN 5MG TABLET GT SCH (20:13)
[2019-10-23] MEDS: MULTIVIT, IRON, MIN NO. 8, FA TABLET GT SCH (20:13)
[2019-10-23] MEDS: MINERAL OIL/PETROLATUM,WHITE 57 GM TUBE TP SCH (20:15)
[2019-10-23] MEDS: ADAPALENE 0.3% TP SCH (20:15)
[2019-10-24] MEDS: hydrALAZINE HCL 10 MG TABLET GT SCH ×3 (06:20→21:31)
[2019-10-24] MEDS: FAMOTIDINE 20 MG TABLET GT SCH (06:20)
[2019-10-24 08:00] VITALS: BP 136/67
[2019-10-24] MEDS: LACOSAMIDE 100 MG/10 ML UDC GT SCH ×2 (08:55→20:30)
[2019-10-24] MEDS: ACIDOPHILUS/BULGARICUS CHEW TAB GT SCH ×2 (08:55→20:30)
[2019-10-24] MEDS: levETIRAcetam 500 MG/5 ML LIQUID UDC GT SCH ×2 (08:55→20:30)
[2019-10-24] MEDS: METOPROLOL TARTRATE 50 MG TABLET GT SCH ×2 (08:56→20:30)
[2019-10-24] MEDS: AMLODIPINE 10 MG TABLET GT SCH (08:57)
[2019-10-24] MEDS: NUTRISOURCE FIBER 4 GM PACKET GT SCH (08:57)
[2019-10-24] MEDS: HEPARIN SODIUM,PORCINE 5,000 UNITS/ML VIAL SQ SCH ×2 (08:57→20:31)
[2019-10-24] MEDS: COD LIVER OIL/ZINC OXIDE OINT 113 GM TUBE TP SCH ×2 (08:58→20:30)
[2019-10-24] MEDS: CLINDAMYCIN TP SCH (08:58)
[2019-10-24] MEDS: HYDROGEN PEROXIDE 3% 118 ML BOTTLE TOP SCH ×2 (09:00→21:36)
[2019-10-24] MEDS: JEVITY 1.2 1000 ML LIQUID GT PRN (15:00)
[2019-10-24] MEDS: MINERAL OIL/PETROLATUM,WHITE 57 GM TUBE TP SCH (20:30)
[2019-10-24] MEDS: ADAPALENE 0.3% TP SCH (20:30)
[2019-10-24] MEDS: FERROUS SULFATE 330 MG/7.5 ML UDC- FOR SA ONLY GT SCH (20:30)
[2019-10-24] MEDS: MELATONIN 5MG TABLET GT SCH (20:30)
[2019-10-24] MEDS: MULTIVIT, IRON, MIN NO. 8, FA TABLET GT SCH (20:30)
[2019-10-24 20:31] VITALS: BP 119/76
[2019-10-25] MEDS: hydrALAZINE HCL 10 MG TABLET GT SCH ×3 (05:19→21:30)
[2019-10-25] MEDS: FAMOTIDINE 20 MG TABLET GT SCH (05:19)
[2019-10-25 06:54] LABS: BASOPHILS # (AUTO) 0.1 K/uL (0.0-8.0); BASOPHILS % (AUTO) 0.5 % (0.0-2.0); EOSINOPHILS # (AUTO) 0.8 K/uL (0.0-0.7); EOSINOPHILS % (AUTO) 5.8 % (0.0-7.0); HEMATOCRIT 39.6 % (31.2-41.9); HEMOGLOBIN 13.1 g/dL (10.9-14.3); LYMPHOCYTES # (AUTO) 2.3 K/uL (20.0-40.0); MEAN CORPUSCULAR HEMOGLOBIN 30.6 uug (24.7-32.8); MEAN CORPUSCULAR HGB CONC 33 g/dL (32.3-35.6); MEAN CORPUSCULAR VOLUME 92.7 fL (75.5-95.3); MONOCYTES # (AUTO) 0.8 K/uL (2.0-10.0); MONOCYTES % (AUTO) 5.9 % (0.0-11.0); NEUTROPHILS # (AUTO) 9.5 K/uL (1.8-8.9); NEUTROPHILS % (AUTO) 70.8 % (38.5-71.5); PLATELET COUNT (AUTO) 341 K/uL (179-408); RED BLOOD CELL COUNT(AUTO) 4.27 MIL/uL (3.63-4.92); WHITE BLOOD COUNT (AUTO) 13.3 K/uL (3.8-11.8)
[2019-10-25 07:13] LABS: CREATININE 0.6 mg/dL (0.6-1.3); MAGNESIUM 2.1 mg/dL (1.8-2.4); PHOSPHOROUS 4.9 mg/dL (2.5-4.9); POTASSIUM 4.3 mmol/L (3.5-5.1)
[2019-10-25 07:39] VITALS: BP 100/60
[2019-10-25] MEDS: levETIRAcetam 500 MG/5 ML LIQUID UDC GT SCH ×2 (08:00→20:31)
[2019-10-25] MEDS: ACIDOPHILUS/BULGARICUS CHEW TAB GT SCH ×2 (08:00→20:31)
[2019-10-25] MEDS: LACOSAMIDE 100 MG/10 ML UDC GT SCH ×2 (08:00→20:31)
[2019-10-25] MEDS: AMLODIPINE 10 MG TABLET GT SCH (08:01)
[2019-10-25] MEDS: METOPROLOL TARTRATE 50 MG TABLET GT SCH ×2 (08:01→20:31)
[2019-10-25] MEDS: NUTRISOURCE FIBER 4 GM PACKET GT SCH (08:02)
[2019-10-25] MEDS: HEPARIN SODIUM,PORCINE 5,000 UNITS/ML VIAL SQ SCH ×2 (08:04→20:33)
[2019-10-25] MEDS: COD LIVER OIL/ZINC OXIDE OINT 113 GM TUBE TP SCH ×2 (08:04→20:32)
[2019-10-25] MEDS: CLINDAMYCIN TP SCH (08:04)
[2019-10-25] MEDS: HYDROGEN PEROXIDE 3% 118 ML BOTTLE TOP SCH ×2 (10:20→21:13)
[2019-10-25] MEDS: MELATONIN 5MG TABLET GT SCH (20:31)
[2019-10-25] MEDS: FERROUS SULFATE 330 MG/7.5 ML UDC- FOR SA ONLY GT SCH (20:31)
[2019-10-25] MEDS: MULTIVIT, IRON, MIN NO. 8, FA TABLET GT SCH (20:31)
[2019-10-25] MEDS: MINERAL OIL/PETROLATUM,WHITE 57 GM TUBE TP SCH (20:32)
[2019-10-25] MEDS: ADAPALENE 0.3% TP SCH (20:32)
[2019-10-25 20:43] VITALS: BP 122/65
[2019-10-25] MEDS: JEVITY 1.2 1000 ML LIQUID GT PRN (20:54)
[2019-10-26] MEDS: hydrALAZINE HCL 10 MG TABLET GT SCH ×3 (05:08→21:21)
[2019-10-26] MEDS: FAMOTIDINE 20 MG TABLET GT SCH (05:08)
[2019-10-26] MEDS: HYDROGEN PEROXIDE 3% 118 ML BOTTLE TOP SCH ×2 (07:24→21:19)
[2019-10-26 07:44] VITALS: BP 110/60
[2019-10-26] MEDS: ACIDOPHILUS/BULGARICUS CHEW TAB GT SCH ×2 (08:40→20:17)
[2019-10-26] MEDS: LACOSAMIDE 100 MG/10 ML UDC GT SCH ×2 (08:40→20:17)
[2019-10-26] MEDS: levETIRAcetam 500 MG/5 ML LIQUID UDC GT SCH ×2 (08:40→20:17)
[2019-10-26] MEDS: AMLODIPINE 10 MG TABLET GT SCH (08:41)
[2019-10-26] MEDS: METOPROLOL TARTRATE 50 MG TABLET GT SCH ×2 (08:41→20:17)
[2019-10-26] MEDS: NUTRISOURCE FIBER 4 GM PACKET GT SCH (08:41)
[2019-10-26] MEDS: COD LIVER OIL/ZINC OXIDE OINT 113 GM TUBE TP SCH ×2 (08:42→20:18)
[2019-10-26] MEDS: CLINDAMYCIN TP SCH (08:42)
[2019-10-26] MEDS: HEPARIN SODIUM,PORCINE 5,000 UNITS/ML VIAL SQ SCH ×2 (08:42→20:18)
--- NOTE | 2019-10-26 17:58 | NUR ---
Pt. comfortable without any respiratory distress at this time. Video chat provided with the family. Family was appreciative with the effort made by the staff.
[2019-10-26] MEDS: MULTIVIT, IRON, MIN NO. 8, FA TABLET GT SCH (20:17)
[2019-10-26] MEDS: FERROUS SULFATE 330 MG/7.5 ML UDC- FOR SA ONLY GT SCH (20:17)
[2019-10-26] MEDS: MELATONIN 5MG TABLET GT SCH (20:17)
[2019-10-26] MEDS: ADAPALENE 0.3% TP SCH (20:18)
[2019-10-26] MEDS: MINERAL OIL/PETROLATUM,WHITE 57 GM TUBE TP SCH (20:18)
[2019-10-26 20:32] VITALS: BP 147/93
[2019-10-27] MEDS: FAMOTIDINE 20 MG TABLET GT SCH (05:10)
[2019-10-27] MEDS: hydrALAZINE HCL 10 MG TABLET GT SCH ×3 (05:10→22:00)
[2019-10-27 07:46] VITALS: BP 120/59
[2019-10-27 08:00] VITALS: BP 120/59
[2019-10-27] MEDS: LACOSAMIDE 100 MG/10 ML UDC GT SCH ×2 (08:41→20:30)
[2019-10-27] MEDS: levETIRAcetam 500 MG/5 ML LIQUID UDC GT SCH ×2 (08:41→20:30)
[2019-10-27] MEDS: ACIDOPHILUS/BULGARICUS CHEW TAB GT SCH ×2 (08:41→20:33)
[2019-10-27] MEDS: NUTRISOURCE FIBER 4 GM PACKET GT SCH (08:42)
[2019-10-27] MEDS: METOPROLOL TARTRATE 50 MG TABLET GT SCH ×2 (08:42→20:34)
[2019-10-27] MEDS: AMLODIPINE 10 MG TABLET GT SCH (08:42)
[2019-10-27] MEDS: HEPARIN SODIUM,PORCINE 5,000 UNITS/ML VIAL SQ SCH ×2 (08:43→21:00)
[2019-10-27] MEDS: CLINDAMYCIN TP SCH (08:44)
[2019-10-27] MEDS: COD LIVER OIL/ZINC OXIDE OINT 113 GM TUBE TP SCH ×2 (08:44→20:35)
[2019-10-27] MEDS: HYDROGEN PEROXIDE 3% 118 ML BOTTLE TOP SCH ×2 (09:00→21:21)
--- NOTE | 2019-10-27 16:50 | NUR ---
Adapalene not cover by patient's insurance, Dr. Cabrera notified, per Md change Adapalene to Differin gel 0.1% (OTC).
--- NOTE | 2019-10-27 18:44 | NUR ---
Pt v/s within normal limit. Stable at this time. Video chat provided with the family (mother).
[2019-10-27 20:02] VITALS: BP 126/84
[2019-10-27] MEDS: FERROUS SULFATE 330 MG/7.5 ML UDC- FOR SA ONLY GT SCH (20:31)
[2019-10-27] MEDS: MULTIVIT, IRON, MIN NO. 8, FA TABLET GT SCH (20:34)
[2019-10-27] MEDS: MELATONIN 5MG TABLET GT SCH (20:34)
[2019-10-27] MEDS: ADAPALENE 0.3% TP SCH (20:35)
[2019-10-27] MEDS: MINERAL OIL/PETROLATUM,WHITE 57 GM TUBE TP SCH (20:35)
[2019-10-27 22:11] VITALS: BP 104/55
[2019-10-28] MEDS: hydrALAZINE HCL 10 MG TABLET GT SCH ×3 (06:00→22:00)
[2019-10-28] MEDS: FAMOTIDINE 20 MG TABLET GT SCH (06:26)
[2019-10-28] MEDS: JEVITY 1.2 1000 ML LIQUID GT PRN (06:27)
[2019-10-28 08:00] VITALS: BP 125/56
[2019-10-28] MEDS: levETIRAcetam 500 MG/5 ML LIQUID UDC GT SCH ×2 (08:03→20:08)
[2019-10-28] MEDS: METOPROLOL TARTRATE 50 MG TABLET GT SCH ×2 (08:03→20:12)
[2019-10-28] MEDS: ACIDOPHILUS/BULGARICUS CHEW TAB GT SCH ×2 (08:03→20:09)
[2019-10-28] MEDS: LACOSAMIDE 100 MG/10 ML UDC GT SCH ×2 (08:03→20:09)
[2019-10-28] MEDS: AMLODIPINE 10 MG TABLET GT SCH (08:04)
[2019-10-28] MEDS: CLINDAMYCIN TP SCH (08:04)
[2019-10-28] MEDS: COD LIVER OIL/ZINC OXIDE OINT 113 GM TUBE TP SCH ×2 (08:04→20:13)
[2019-10-28] MEDS: NUTRISOURCE FIBER 4 GM PACKET GT SCH (08:04)
[2019-10-28] MEDS: HEPARIN SODIUM,PORCINE 5,000 UNITS/ML VIAL SQ SCH ×2 (08:04→20:14)
[2019-10-28] MEDS: HYDROGEN PEROXIDE 3% 118 ML BOTTLE TOP SCH ×2 (09:00→21:31)
--- NOTE | 2019-10-28 14:59 | NUR ---
INTERDISCIPLINARY PLAN OF CARE CONFERENCE was held today. Patient's mother Abdoul participated in the meeting through speaker phone. Dr. Ramos and the Interdisciplinary Team reviewed the current plan of care in detail. RN reported on patient's medical condition and on changes to patient's medications for her facial rash. No major changes in condition were reported. See RN IDT conference notes. Pharmacy provided an update on changes to patient's medications. PT reported that a PT/OT screening will be done tomorrow with the patient, and would report the findings from the screening to patient's mother Abdoul. See all disciplines IDT notes and physician's progress notes for additional details. Abdoul's questions were addressed by the IDT team. Nursing regulation supervisor Nick Goldberg reminded Abdoul that the daily video chat sessions must be limited to 3-5 minutes, and Abdoul expressed understanding.
--- NOTE | 2019-10-28 15:27 | NUR ---
new orders noted for Pt ,Ot evaluation due to increase muscle tone.
--- NOTE | 2019-10-28 16:02 | NUR ---
Pt.'s vitals are within normal parameters. No SOB or any respiratory distress. Video chat provided with the family (mother). Family was thankful about the gesture that was put up for them to see and talk to their loveones.
--- NOTE | 2019-10-28 16:03 | NUR ---
Pharmacy Update from Today's 10/28/19 IDT Meeting VS: Temp 97.8 HR 88 BP 104/55 LABS: (from 10/25/19) Wbc 13.3 H/H 13.1/39.6 Plt 341 Na 140 K 4.3 Cl 104 CO2 26 BUN/SCr 13/0.6 BS 91 Ca 9.8 Phos 4.9 Mg 2.1 MEDICATION USE REVIEWED: > Pt not on any anti-psych medications > Pt on Keppra 1000mg q12hr since 03/11/19. CrCl >100, ok per renal function. Neurology continues to follow and adjust > Pt on Vimpat 200mg q12hr since 04/18/19 per neurology > Pt on ativan 0.5mg q12h PRN agitation m/b tachycardia, increased perspiration, grimacing, biting lips, muscle tension, started 04/06/19 per neurology. Used x1 in September, effective per staff > Pt on Heparin 5000mg q12hr for DVT prophylaxis. No bleeding noted; Last plt 341 > On Norvasc 10mg daily, hydralazine 10mg q8hr, lopressor 50mg q12hr with hold parameters. Last BP wnl > Pt on famotidine 20mg daily since 08/26/19, ok dose per renal function PRN MED USAGE: (September) Tylenol for pain used x0 Tylenol for fever used x0 Hydralazine for SBP>180 used x0 Artificial tears PRN used x0 Lorazepam PRN seizures/spasms used x0 for spasms [place] used x0 NEW ORDERS NOTED: > Covid test 10/14 negative > Calcium carbonate 1000mg TID d/c'd 10/16 > Vit D3 5000units daily d/c'd 10/09 > Per Rx rec, f/u duration of neosporin for lip bite "until healed" - clinical operations specialist f/u, was healed, d/c'd 10/07 Patient was reviewed and discussed in depth with all medication changes and issues noted per team. Family in attendance via phone conference (d/t covid regulations). Medication changes reported, with no concerns per family or staff at this time. No further rx recs for now, will continue to follow
[2019-10-28 20:00] VITALS: BP 114/84
[2019-10-28] MEDS: FERROUS SULFATE 330 MG/7.5 ML UDC- FOR SA ONLY GT SCH (20:09)
[2019-10-28] MEDS: MELATONIN 5MG TABLET GT SCH (20:12)
[2019-10-28] MEDS: MULTIVIT, IRON, MIN NO. 8, FA TABLET GT SCH (20:13)
[2019-10-28] MEDS: MINERAL OIL/PETROLATUM,WHITE 57 GM TUBE TP SCH (20:13)
[2019-10-28] MEDS: ADAPALENE 0.3% TP SCH (20:14)
[2019-10-29] MEDS: JEVITY 1.2 1000 ML LIQUID GT PRN (00:42)
[2019-10-29] MEDS: hydrALAZINE HCL 10 MG TABLET GT SCH ×3 (05:50→22:00)
[2019-10-29] MEDS: FAMOTIDINE 20 MG TABLET GT SCH (05:51)
[2019-10-29 06:36] LABS: CREATININE 0.6 mg/dL (0.6-1.3); MAGNESIUM 2.1 mg/dL (1.8-2.4); POTASSIUM 4.8 mmol/L (3.5-5.1)
[2019-10-29 07:19] LABS: BASOPHILS % (AUTO) 0.5 % (0.0-2.0); EOSINOPHILS # (AUTO) 0.7 K/uL (0.0-0.7); EOSINOPHILS % (AUTO) 7.1 % (0.0-7.0); HEMATOCRIT 40.3 % (31.2-41.9); HEMOGLOBIN 13.4 g/dL (10.9-14.3); LYMPHOCYTES # (AUTO) 2.2 K/uL (20.0-40.0); LYMPHOCYTES % (AUTO) 22.5 % (20.5-51.5); MEAN CORPUSCULAR HEMOGLOBIN 30.9 uug (24.7-32.8); MEAN CORPUSCULAR HGB CONC 33 g/dL (32.3-35.6); MEAN CORPUSCULAR VOLUME 93.3 fL (75.5-95.3); MONOCYTES # (AUTO) 0.7 K/uL (2.0-10.0); MONOCYTES % (AUTO) 7.4 % (0.0-11.0); NEUTROPHILS % (AUTO) 62.5 % (38.5-71.5); PLATELET COUNT (AUTO) 341 K/uL (179-408); RED BLOOD CELL COUNT(AUTO) 4.32 MIL/uL (3.63-4.92)
[2019-10-29 07:33] LABS: WHITE BLOOD COUNT (AUTO) 9.6 K/uL (3.8-11.8)
[2019-10-29 08:00] VITALS: BP 113/69
[2019-10-29] MEDS: levETIRAcetam 500 MG/5 ML LIQUID UDC GT SCH ×2 (08:56→20:02)
[2019-10-29] MEDS: LACOSAMIDE 100 MG/10 ML UDC GT SCH ×2 (08:56→20:02)
[2019-10-29] MEDS: ACIDOPHILUS/BULGARICUS CHEW TAB GT SCH ×2 (08:57→20:04)
[2019-10-29] MEDS: NUTRISOURCE FIBER 4 GM PACKET GT SCH (08:57)
[2019-10-29] MEDS: HEPARIN SODIUM,PORCINE 5,000 UNITS/ML VIAL SQ SCH ×2 (08:58→20:09)
[2019-10-29] MEDS: CLINDAMYCIN TP SCH (08:59)
[2019-10-29] MEDS: COD LIVER OIL/ZINC OXIDE OINT 113 GM TUBE TP SCH ×2 (08:59→20:09)
[2019-10-29] MEDS: METOPROLOL TARTRATE 50 MG TABLET GT SCH ×2 (09:00→20:10)
[2019-10-29] MEDS: AMLODIPINE 10 MG TABLET GT SCH (09:00)
--- NOTE | 2019-10-29 10:00 | NUR ---
Pt will be on physical therapy 5x week x 4 weeks,Rna orders for rom to lower extremities discontinue.
[2019-10-29] MEDS: HYDROGEN PEROXIDE 3% 118 ML BOTTLE TOP SCH ×2 (10:20→21:43)
[2019-10-29 20:00] VITALS: BP 113/77
[2019-10-29] MEDS: FERROUS SULFATE 330 MG/7.5 ML UDC- FOR SA ONLY GT SCH (20:04)
[2019-10-29] MEDS: MELATONIN 5MG TABLET GT SCH (20:05)
[2019-10-29] MEDS: MULTIVIT, IRON, MIN NO. 8, FA TABLET GT SCH (20:06)
[2019-10-29] MEDS: ADAPALENE 0.3% TP SCH (20:09)
[2019-10-29] MEDS: MINERAL OIL/PETROLATUM,WHITE 57 GM TUBE TP SCH (20:09)
[2019-10-30] MEDS: hydrALAZINE HCL 10 MG TABLET GT SCH ×3 (05:56→22:00)
[2019-10-30] MEDS: FAMOTIDINE 20 MG TABLET GT SCH (05:57)
[2019-10-30 08:00] VITALS: BP 139/59
[2019-10-30] MEDS: LACOSAMIDE 100 MG/10 ML UDC GT SCH ×2 (08:41→20:19)
[2019-10-30] MEDS: levETIRAcetam 500 MG/5 ML LIQUID UDC GT SCH ×2 (08:41→20:19)
[2019-10-30] MEDS: ACIDOPHILUS/BULGARICUS CHEW TAB GT SCH ×2 (08:42→20:23)
[2019-10-30] MEDS: NUTRISOURCE FIBER 4 GM PACKET GT SCH (08:43)
[2019-10-30] MEDS: COD LIVER OIL/ZINC OXIDE OINT 113 GM TUBE TP SCH ×2 (08:43→20:27)
[2019-10-30] MEDS: CLINDAMYCIN TP SCH (08:44)
[2019-10-30] MEDS: HEPARIN SODIUM,PORCINE 5,000 UNITS/ML VIAL SQ SCH ×2 (08:46→20:27)
[2019-10-30] MEDS: AMLODIPINE 10 MG TABLET GT SCH (08:50)
[2019-10-30] MEDS: METOPROLOL TARTRATE 50 MG TABLET GT SCH ×2 (08:50→20:24)
[2019-10-30] MEDS: HYDROGEN PEROXIDE 3% 118 ML BOTTLE TOP SCH ×2 (09:00→21:10)
--- NOTE | 2019-10-30 09:10 | NUR ---
Contacted Ms. Gupta regarding e-mail sent from her. Discussed concerns regarding patient to Ms. Gupta satisfaction.
--- NOTE | 2019-10-30 10:29 | NUR ---
NEW ORDER WAS WAS CARRIED OUT FROM DR. FORREST FOR OT.ORDERS.
--- NOTE | 2019-10-30 16:00 | NUR ---
NEW ORDER CARRIED OUT FROM DR. SOTO TO D/C RNA APPLICATION OF LEFT ANKLE SPLINT.
--- NOTE | 2019-10-30 16:24 | NUR ---
DR. ESTRADA SIGNED AUTHORIZATION TO REFILL LORAZEPAM AND FAXED TO [employer].
[2019-10-30] MEDS: ACETAMINOPHEN 650 MG/20 ML UDC- SA PATIENTS-PAIN ONLY GT PRN (18:22)
--- NOTE | 2019-10-30 19:03 | NUR ---
NEW ORDER CARRIED OUT FROM DR. GERARDO Graham FOR LOCAL TX ON LOWER LIP AND SCRATCH ON OPTICS TECHNICAL OFFICER. THIGH AND PICTURE TAKEN .
--- NOTE | 2019-10-30 19:04 | NUR ---
PT'S MOTHER WAS NOTIFIED ABOUT LOWER LIP AND RT. THIGH TX AND IN AGREEMENT WITH ORDERS.
[2019-10-30] MEDS: NEOMY/BACITRA/POLYMYXIN B OINT UD PACKET TP SCH ×2 (19:18→19:19)
[2019-10-30 20:00] VITALS: BP 120/93
[2019-10-30] MEDS: FERROUS SULFATE 330 MG/7.5 ML UDC- FOR SA ONLY GT SCH (20:22)
[2019-10-30] MEDS: MELATONIN 5MG TABLET GT SCH (20:25)
[2019-10-30] MEDS: MULTIVIT, IRON, MIN NO. 8, FA TABLET GT SCH (20:26)
[2019-10-30] MEDS: MINERAL OIL/PETROLATUM,WHITE 57 GM TUBE TP SCH (20:27)
[2019-10-30] MEDS: ADAPALENE 0.3% TP SCH (20:27)
[2019-10-31] MEDS: FAMOTIDINE 20 MG TABLET GT SCH (05:54)
[2019-10-31] MEDS: hydrALAZINE HCL 10 MG TABLET GT SCH ×3 (05:54→22:00)
[2019-10-31 08:00] VITALS: BP 126/61
[2019-10-31] MEDS: LACOSAMIDE 100 MG/10 ML UDC GT SCH ×2 (08:00→20:40)
[2019-10-31] MEDS: levETIRAcetam 500 MG/5 ML LIQUID UDC GT SCH ×2 (08:00→20:40)
[2019-10-31] MEDS: ACIDOPHILUS/BULGARICUS CHEW TAB GT SCH ×2 (09:00→20:49)
[2019-10-31] MEDS: METOPROLOL TARTRATE 50 MG TABLET GT SCH ×2 (09:00→20:49)
[2019-10-31] MEDS: NUTRISOURCE FIBER 4 GM PACKET GT SCH (09:01)
[2019-10-31] MEDS: AMLODIPINE 10 MG TABLET GT SCH (09:01)
[2019-10-31] MEDS: COD LIVER OIL/ZINC OXIDE OINT 113 GM TUBE TP SCH ×2 (09:02→20:49)
[2019-10-31] MEDS: CLINDAMYCIN TP SCH (09:02)
[2019-10-31] MEDS: HEPARIN SODIUM,PORCINE 5,000 UNITS/ML VIAL SQ SCH ×2 (09:02→21:00)
[2019-10-31] MEDS: NEOMY/BACITRA/POLYMYXIN B OINT UD PACKET TP SCH ×2 (09:02)
[2019-10-31] MEDS: HYDROGEN PEROXIDE 3% 118 ML BOTTLE TOP SCH ×2 (09:08→21:55)
--- NOTE | 2019-10-31 13:26 | NUR ---
NEW ORDER FROM DR. GERARDO Graham CARRIED OUT FOR VIT. D SUPPLEMENT.
--- NOTE | 2019-10-31 16:15 | NUR ---
Provided video chat to pt. and her mother with no problem, kept pt clean and comfortable all needs attended and anticipated.
[2019-10-31] MEDS: FERROUS SULFATE 330 MG/7.5 ML UDC- FOR SA ONLY GT SCH (20:49)
[2019-10-31] MEDS: MELATONIN 5MG TABLET GT SCH (20:49)
[2019-10-31] MEDS: MULTIVIT, IRON, MIN NO. 8, FA TABLET GT SCH (20:49)
[2019-10-31] MEDS: MINERAL OIL/PETROLATUM,WHITE 57 GM TUBE TP SCH (20:49)
[2019-10-31] MEDS: ADAPALENE 0.3% TP SCH (21:00)
[2019-10-31 23:22] VITALS: BP 126/83
[2019-11-01] MEDS: JEVITY 1.2 1000 ML LIQUID GT PRN ×2 (02:59→18:26)
[2019-11-01] MEDS: hydrALAZINE HCL 10 MG TABLET GT SCH ×3 (06:00→22:32)
[2019-11-01] MEDS: FAMOTIDINE 20 MG TABLET GT SCH (06:59)
[2019-11-01 07:13] VITALS: BP 97/54
[2019-11-01 07:51] VITALS: BP 103/61
--- NOTE | 2019-11-01 08:00 | NUR ---
SEEN BY DR. FORREST AND WITH NNO.
[2019-11-01] MEDS: LACOSAMIDE 100 MG/10 ML UDC GT SCH ×2 (08:44→20:13)
[2019-11-01] MEDS: levETIRAcetam 500 MG/5 ML LIQUID UDC GT SCH ×2 (08:44→20:13)
[2019-11-01] MEDS: HYDROGEN PEROXIDE 3% 118 ML BOTTLE TOP SCH ×2 (08:48→21:56)
[2019-11-01] MEDS: AMLODIPINE 10 MG TABLET GT SCH (09:00)
[2019-11-01] MEDS: METOPROLOL TARTRATE 50 MG TABLET GT SCH ×2 (09:00→20:13)
[2019-11-01] MEDS: ACIDOPHILUS/BULGARICUS CHEW TAB GT SCH ×2 (09:27→20:13)
[2019-11-01] MEDS: NUTRISOURCE FIBER 4 GM PACKET GT SCH (09:32)
[2019-11-01] MEDS: HEPARIN SODIUM,PORCINE 5,000 UNITS/ML VIAL SQ SCH ×2 (09:33→20:14)
[2019-11-01] MEDS: CHOLECALCIFEROL 1,000 UNIT TABLET GT SCH (09:33)
[2019-11-01] MEDS: CLINDAMYCIN TP SCH (09:34)
[2019-11-01] MEDS: COD LIVER OIL/ZINC OXIDE OINT 113 GM TUBE TP SCH ×2 (09:34→20:14)
[2019-11-01] MEDS: NEOMY/BACITRA/POLYMYXIN B OINT UD PACKET TP SCH ×2 (09:34)
--- NOTE | 2019-11-01 14:00 | NUR ---
Note; disregard Hydralazine 1400 administration. Med NOT given. SBP 105/62order is to hold if less than 110. Med was held.
--- NOTE | 2019-11-01 15:00 | NUR ---
Patients mother called unit to scheduled Zoom meeting at 1500. Waited for Marilees to log into for 10 minutes.
--- NOTE | 2019-11-01 15:30 | NUR ---
Abdoul called station and requested second attempt to Zoom. Waited for 10 minutes again. Pts mother did not log into zoom meeting.
--- NOTE | 2019-11-01 16:40 | NUR ---
Nurse colleague stated that while providing zoom meeting for her patient, Abdoul logged into zoom virtual waiting room at approximately 1550. Once zoom meeting for that patient was over and the Ipad was disinfected, Zoom meeting was initiated for Patient Candy with mother Abdoul. Abdoul was reminded at the beginning of the zoom meeting that the call length is 5 minutes, as our floor director Nick instructed staff to do, following [facility] guidelines for zoom meetings. Also, Abdoul was let knowned at 1 minute before time was up, to say her good byes to patient Candy. At time zoom was over Abdoul became upset because she states that she was unable to say a proper goobye to her daughter when in fact, she was given 3 extra minutes aside of the 5 that is mandated. As soon as the zoom meeting was over, Abdoul called the nurses station complaining her call was cut short and that she was not allowed to say her goodbyes. Abdoul was once again reminded of E-mail sent by our floor director Nick and psychiatric social worker supervisor Steven giving the guide lines and directions for family/patient Zoom meeting that included length of time. She stated she didn't care what that said, and that she only cared about saying her good byes and spending quality time with her daughter. She also stated that her calls were cut off previously when in fact, she never logged in at Zoom at the times she had specified over the phone in the nurses station. (Nurse waited past the schedule time she set up to meet in room , Please read previous nurse documentations for the shift from nurse)
[2019-11-01] MEDS: MULTIVIT, IRON, MIN NO. 8, FA TABLET GT SCH (20:13)
[2019-11-01] MEDS: FERROUS SULFATE 330 MG/7.5 ML UDC- FOR SA ONLY GT SCH (20:13)
[2019-11-01] MEDS: MELATONIN 5MG TABLET GT SCH (20:13)
[2019-11-01] MEDS: MINERAL OIL/PETROLATUM,WHITE 57 GM TUBE TP SCH (20:14)
[2019-11-01] MEDS: ADAPALENE 0.3% TP SCH (20:14)
[2019-11-01 23:02] VITALS: BP 124/76
[2019-11-02] MEDS: FAMOTIDINE 20 MG TABLET GT SCH (05:23)
[2019-11-02] MEDS: hydrALAZINE HCL 10 MG TABLET GT SCH ×3 (05:24→22:44)
[2019-11-02 07:47] VITALS: BP 121/45
[2019-11-02] MEDS: LACOSAMIDE 100 MG/10 ML UDC GT SCH ×2 (08:00→20:08)
[2019-11-02] MEDS: levETIRAcetam 500 MG/5 ML LIQUID UDC GT SCH ×2 (08:00→20:08)
[2019-11-02] MEDS: HYDROGEN PEROXIDE 3% 118 ML BOTTLE TOP SCH ×2 (08:37→21:38)
[2019-11-02] MEDS: ACIDOPHILUS/BULGARICUS CHEW TAB GT SCH ×2 (09:07→20:08)
[2019-11-02] MEDS: CHOLECALCIFEROL 1,000 UNIT TABLET GT SCH (09:08)
[2019-11-02] MEDS: METOPROLOL TARTRATE 50 MG TABLET GT SCH ×2 (09:08→20:12)
[2019-11-02] MEDS: AMLODIPINE 10 MG TABLET GT SCH (09:08)
[2019-11-02] MEDS: NUTRISOURCE FIBER 4 GM PACKET GT SCH (09:08)
[2019-11-02] MEDS: HEPARIN SODIUM,PORCINE 5,000 UNITS/ML VIAL SQ SCH ×2 (09:08→20:10)
[2019-11-02] MEDS: CLINDAMYCIN TP SCH (09:09)
[2019-11-02] MEDS: COD LIVER OIL/ZINC OXIDE OINT 113 GM TUBE TP SCH ×2 (09:09→20:12)
[2019-11-02] MEDS: NEOMY/BACITRA/POLYMYXIN B OINT UD PACKET TP SCH ×2 (09:09)
--- NOTE | 2019-11-02 16:10 | NUR ---
Provided video chat to pt. and her mother with no problem, pt remains comfortable all needs attended and anticipated.
[2019-11-02] MEDS: FERROUS SULFATE 330 MG/7.5 ML UDC- FOR SA ONLY GT SCH (20:08)
[2019-11-02] MEDS: MULTIVIT, IRON, MIN NO. 8, FA TABLET GT SCH (20:11)
[2019-11-02] MEDS: MINERAL OIL/PETROLATUM,WHITE 57 GM TUBE TP SCH (20:12)
[2019-11-02] MEDS: MELATONIN 5MG TABLET GT SCH (20:12)
[2019-11-02] MEDS: ADAPALENE 0.3% TP SCH (20:13)
[2019-11-02 23:46] VITALS: BP 116/67
[2019-11-03] MEDS: JEVITY 1.2 1000 ML LIQUID GT PRN ×2 (02:41→22:32)
[2019-11-03] MEDS: FAMOTIDINE 20 MG TABLET GT SCH (06:02)
[2019-11-03] MEDS: hydrALAZINE HCL 10 MG TABLET GT SCH ×3 (06:02→22:29)
[2019-11-03 08:00] VITALS: BP 129/76
[2019-11-03] MEDS: ACIDOPHILUS/BULGARICUS CHEW TAB GT SCH ×2 (08:09→20:06)
[2019-11-03] MEDS: levETIRAcetam 500 MG/5 ML LIQUID UDC GT SCH ×2 (08:09→20:06)
[2019-11-03] MEDS: LACOSAMIDE 100 MG/10 ML UDC GT SCH ×2 (08:09→20:06)
[2019-11-03] MEDS: METOPROLOL TARTRATE 50 MG TABLET GT SCH ×2 (08:10→20:14)
[2019-11-03] MEDS: AMLODIPINE 10 MG TABLET GT SCH (08:11)
[2019-11-03] MEDS: NUTRISOURCE FIBER 4 GM PACKET GT SCH (08:12)
[2019-11-03] MEDS: CHOLECALCIFEROL 1,000 UNIT TABLET GT SCH (08:13)
[2019-11-03] MEDS: COD LIVER OIL/ZINC OXIDE OINT 113 GM TUBE TP SCH ×2 (08:13→20:13)
[2019-11-03] MEDS: HEPARIN SODIUM,PORCINE 5,000 UNITS/ML VIAL SQ SCH ×2 (08:18→20:12)
[2019-11-03] MEDS: CLINDAMYCIN TP SCH (08:20)
[2019-11-03] MEDS: NEOMY/BACITRA/POLYMYXIN B OINT UD PACKET TP SCH ×2 (08:20→08:21)
[2019-11-03] MEDS: HYDROGEN PEROXIDE 3% 118 ML BOTTLE TOP SCH ×2 (09:31→21:49)
--- NOTE | 2019-11-03 16:00 | NUR ---
SEEN BY QUAN Sharma AND DR. ESTRADA WITH NNO ,ALSO WAS SEEN BY DR GERARDO Graham AND WITH NEW ORDERS CARRIED OUT.
--- NOTE | 2019-11-03 16:05 | NUR ---
PT. PROVIDED VIDEO CHAT VIA ZOOM WITH HER MOTHER.
[2019-11-03] MEDS: FERROUS SULFATE 330 MG/7.5 ML UDC- FOR SA ONLY GT SCH (20:06)
[2019-11-03] MEDS: MULTIVIT, IRON, MIN NO. 8, FA TABLET GT SCH (20:08)
[2019-11-03] MEDS: MINERAL OIL/PETROLATUM,WHITE 57 GM TUBE TP SCH (20:11)
[2019-11-03] MEDS: ADAPALENE 0.3% TP SCH (20:11)
[2019-11-03] MEDS: MELATONIN 5MG TABLET GT SCH (20:13)
[2019-11-03 20:42] VITALS: BP 126/65
[2019-11-04] MEDS: hydrALAZINE HCL 10 MG TABLET GT SCH ×3 (05:57→22:00)
[2019-11-04] MEDS: FAMOTIDINE 20 MG TABLET GT SCH (05:58)
[2019-11-04 06:17] LABS: BASOPHILS % (AUTO) 0.3 % (0.0-2.0); EOSINOPHILS # (AUTO) 0.4 K/uL (0.0-0.7); EOSINOPHILS % (AUTO) 4.6 % (0.0-7.0); HEMATOCRIT 41.1 % (31.2-41.9); HEMOGLOBIN 13.7 g/dL (10.9-14.3); LYMPHOCYTES # (AUTO) 1.7 K/uL (20.0-40.0); LYMPHOCYTES % (AUTO) 17.5 % (20.5-51.5); MEAN CORPUSCULAR HEMOGLOBIN 30.7 uug (24.7-32.8); MEAN CORPUSCULAR HGB CONC 33 g/dL (32.3-35.6); MONOCYTES # (AUTO) 0.6 K/uL (2.0-10.0); MONOCYTES % (AUTO) 6.2 % (0.0-11.0); NEUTROPHILS # (AUTO) 6.9 K/uL (1.8-8.9); NEUTROPHILS % (AUTO) 71.4 % (38.5-71.5); PLATELET COUNT (AUTO) 362 K/uL (179-408); RED BLOOD CELL COUNT(AUTO) 4.46 MIL/uL (3.63-4.92); WHITE BLOOD COUNT (AUTO) 9.7 K/uL (3.8-11.8)
[2019-11-04 06:31] LABS: CREATININE 0.6 mg/dL (0.6-1.3); MAGNESIUM 2.3 mg/dL (1.8-2.4); PHOSPHOROUS 4.9 mg/dL (2.5-4.9); POTASSIUM 4.8 mmol/L (3.5-5.1)
[2019-11-04 08:00] VITALS: BP 113/60
[2019-11-04] MEDS: levETIRAcetam 500 MG/5 ML LIQUID UDC GT SCH ×2 (08:48→20:06)
[2019-11-04] MEDS: LACOSAMIDE 100 MG/10 ML UDC GT SCH ×2 (08:49→20:06)
[2019-11-04] MEDS: ACIDOPHILUS/BULGARICUS CHEW TAB GT SCH ×2 (08:49→20:07)
[2019-11-04] MEDS: METOPROLOL TARTRATE 50 MG TABLET GT SCH ×2 (08:55→20:06)
[2019-11-04] MEDS: AMLODIPINE 10 MG TABLET GT SCH (08:56)
[2019-11-04] MEDS: CHOLECALCIFEROL 1,000 UNIT TABLET GT SCH (08:56)
[2019-11-04] MEDS: NUTRISOURCE FIBER 4 GM PACKET GT SCH (08:56)
[2019-11-04] MEDS: HEPARIN SODIUM,PORCINE 5,000 UNITS/ML VIAL SQ SCH ×2 (09:00→20:04)
[2019-11-04] MEDS: COD LIVER OIL/ZINC OXIDE OINT 113 GM TUBE TP SCH ×2 (09:01→20:07)
[2019-11-04] MEDS: NEOMY/BACITRA/POLYMYXIN B OINT UD PACKET TP SCH ×2 (09:45)
[2019-11-04] MEDS: CLINDAMYCIN TP SCH (09:45)
[2019-11-04] MEDS: HYDROGEN PEROXIDE 3% 118 ML BOTTLE TOP SCH ×2 (09:55→21:17)
--- NOTE | 2019-11-04 11:56 | NUR ---
Dr kauffman aware of the labs results no new orders.
--- NOTE | 2019-11-04 15:35 | NUR ---
Assisted video chat with pt's, mother at this time.
[2019-11-04] MEDS: JEVITY 1.2 1000 ML LIQUID GT PRN (17:13)
[2019-11-04] MEDS: FERROUS SULFATE 330 MG/7.5 ML UDC- FOR SA ONLY GT SCH (20:06)
[2019-11-04] MEDS: MULTIVIT, IRON, MIN NO. 8, FA TABLET GT SCH (20:07)
[2019-11-04] MEDS: MELATONIN 5MG TABLET GT SCH (20:07)
[2019-11-04] MEDS: ADAPALENE 0.3% TP SCH (20:08)
[2019-11-04] MEDS: MINERAL OIL/PETROLATUM,WHITE 57 GM TUBE TP SCH (20:08)
[2019-11-04 20:24] VITALS: BP 117/69
[2019-11-05] MEDS: FAMOTIDINE 20 MG TABLET GT SCH (06:04)
[2019-11-05] MEDS: hydrALAZINE HCL 10 MG TABLET GT SCH ×3 (06:04→22:00)
[2019-11-05 08:00] VITALS: BP 125/75
[2019-11-05] MEDS: levETIRAcetam 500 MG/5 ML LIQUID UDC GT SCH ×2 (08:43→20:38)
[2019-11-05] MEDS: LACOSAMIDE 100 MG/10 ML UDC GT SCH ×2 (08:44→20:38)
[2019-11-05] MEDS: ACIDOPHILUS/BULGARICUS CHEW TAB GT SCH ×2 (08:44→20:38)
[2019-11-05] MEDS: CHOLECALCIFEROL 1,000 UNIT TABLET GT SCH (08:47)
[2019-11-05] MEDS: NUTRISOURCE FIBER 4 GM PACKET GT SCH (08:47)
[2019-11-05] MEDS: HEPARIN SODIUM,PORCINE 5,000 UNITS/ML VIAL SQ SCH ×2 (08:50→21:33)
[2019-11-05] MEDS: METOPROLOL TARTRATE 50 MG TABLET GT SCH ×2 (08:54→20:41)
[2019-11-05] MEDS: AMLODIPINE 10 MG TABLET GT SCH (08:55)
[2019-11-05] MEDS: CLINDAMYCIN TP SCH (09:00)
[2019-11-05] MEDS: NEOMY/BACITRA/POLYMYXIN B OINT UD PACKET TP SCH ×2 (09:00)
[2019-11-05] MEDS: COD LIVER OIL/ZINC OXIDE OINT 113 GM TUBE TP SCH ×2 (09:00→20:40)
[2019-11-05] MEDS: HYDROGEN PEROXIDE 3% 118 ML BOTTLE TOP SCH ×2 (09:08→21:04)
--- NOTE | 2019-11-05 15:30 | NUR ---
video chat assisted with pt's mother.
[2019-11-05 20:00] VITALS: BP 111/54
[2019-11-05] MEDS: FERROUS SULFATE 330 MG/7.5 ML UDC- FOR SA ONLY GT SCH (20:38)
[2019-11-05] MEDS: MULTIVIT, IRON, MIN NO. 8, FA TABLET GT SCH (20:39)
[2019-11-05] MEDS: MELATONIN 5MG TABLET GT SCH (20:39)
[2019-11-05] MEDS: MINERAL OIL/PETROLATUM,WHITE 57 GM TUBE TP SCH (20:40)
[2019-11-05] MEDS: ADAPALENE 0.3% TP SCH (21:33)
[2019-11-05 22:45] VITALS: BP 93/43
[2019-11-06 06:00] VITALS: BP 105/62
[2019-11-06] MEDS: hydrALAZINE HCL 10 MG TABLET GT SCH ×3 (06:00→22:53)
[2019-11-06] MEDS: FAMOTIDINE 20 MG TABLET GT SCH (06:45)
[2019-11-06 08:00] VITALS: BP 118/53
[2019-11-06] MEDS: levETIRAcetam 500 MG/5 ML LIQUID UDC GT SCH ×2 (08:37→20:24)
[2019-11-06] MEDS: ACIDOPHILUS/BULGARICUS CHEW TAB GT SCH ×2 (08:37→20:37)
[2019-11-06] MEDS: LACOSAMIDE 100 MG/10 ML UDC GT SCH ×2 (08:37→20:24)
[2019-11-06] MEDS: AMLODIPINE 10 MG TABLET GT SCH (08:38)
[2019-11-06] MEDS: NUTRISOURCE FIBER 4 GM PACKET GT SCH (08:38)
[2019-11-06] MEDS: METOPROLOL TARTRATE 50 MG TABLET GT SCH ×2 (08:38→20:37)
[2019-11-06] MEDS: CHOLECALCIFEROL 1,000 UNIT TABLET GT SCH (08:38)
[2019-11-06] MEDS: NEOMY/BACITRA/POLYMYXIN B OINT UD PACKET TP SCH (08:39)
[2019-11-06] MEDS: CLINDAMYCIN TP SCH (08:39)
[2019-11-06] MEDS: COD LIVER OIL/ZINC OXIDE OINT 113 GM TUBE TP SCH ×2 (08:39→20:39)
[2019-11-06] MEDS: HEPARIN SODIUM,PORCINE 5,000 UNITS/ML VIAL SQ SCH ×2 (08:46→20:38)
[2019-11-06] MEDS: HYDROGEN PEROXIDE 3% 118 ML BOTTLE TOP SCH ×2 (08:50→21:12)
[2019-11-06 20:36] VITALS: BP 133/70
[2019-11-06] MEDS: MELATONIN 5MG TABLET GT SCH (20:37)
[2019-11-06] MEDS: MULTIVIT, IRON, MIN NO. 8, FA TABLET GT SCH (20:37)
[2019-11-06] MEDS: FERROUS SULFATE 330 MG/7.5 ML UDC- FOR SA ONLY GT SCH (20:37)
[2019-11-06] MEDS: MINERAL OIL/PETROLATUM,WHITE 57 GM TUBE TP SCH (20:39)
[2019-11-06] MEDS: ADAPALENE 0.3% TP SCH (20:39)
[2019-11-06] MEDS: ACETAMINOPHEN 650 MG/20 ML UDC- SA PATIENTS-PAIN ONLY GT PRN (22:57)
[2019-11-07] MEDS: JEVITY 1.2 1000 ML LIQUID GT PRN (00:26)
[2019-11-07] MEDS: hydrALAZINE HCL 10 MG TABLET GT SCH ×3 (06:00→22:00)
[2019-11-07] MEDS: FAMOTIDINE 20 MG TABLET GT SCH (06:06)
[2019-11-07 08:00] VITALS: BP 107/61
[2019-11-07] MEDS: NUTRISOURCE FIBER 4 GM PACKET GT SCH (08:36)
[2019-11-07] MEDS: ACIDOPHILUS/BULGARICUS CHEW TAB GT SCH ×2 (08:36→20:40)
[2019-11-07] MEDS: LACOSAMIDE 100 MG/10 ML UDC GT SCH ×2 (08:36→20:12)
[2019-11-07] MEDS: METOPROLOL TARTRATE 50 MG TABLET GT SCH ×2 (08:36→20:41)
[2019-11-07] MEDS: AMLODIPINE 10 MG TABLET GT SCH (08:36)
[2019-11-07] MEDS: levETIRAcetam 500 MG/5 ML LIQUID UDC GT SCH ×2 (08:36→20:12)
[2019-11-07] MEDS: CHOLECALCIFEROL 1,000 UNIT TABLET GT SCH (08:36)
[2019-11-07] MEDS: HEPARIN SODIUM,PORCINE 5,000 UNITS/ML VIAL SQ SCH ×2 (08:37→20:41)
[2019-11-07] MEDS: NEOMY/BACITRA/POLYMYXIN B OINT UD PACKET TP SCH (08:37)
[2019-11-07] MEDS: CLINDAMYCIN TP SCH (08:37)
[2019-11-07] MEDS: COD LIVER OIL/ZINC OXIDE OINT 113 GM TUBE TP SCH ×2 (08:37→20:41)
[2019-11-07] MEDS: HYDROGEN PEROXIDE 3% 118 ML BOTTLE TOP SCH ×2 (09:00→21:54)
[2019-11-07 20:33] VITALS: BP 138/87
[2019-11-07] MEDS: FERROUS SULFATE 330 MG/7.5 ML UDC- FOR SA ONLY GT SCH (20:40)
[2019-11-07] MEDS: MULTIVIT, IRON, MIN NO. 8, FA TABLET GT SCH (20:41)
[2019-11-07] MEDS: MELATONIN 5MG TABLET GT SCH (20:41)
[2019-11-07] MEDS: ADAPALENE 0.3% TP SCH (20:42)
[2019-11-07] MEDS: MINERAL OIL/PETROLATUM,WHITE 57 GM TUBE TP SCH (20:42)
[2019-11-08] MEDS: hydrALAZINE HCL 10 MG TABLET GT SCH ×3 (05:38→22:00)
[2019-11-08] MEDS: FAMOTIDINE 20 MG TABLET GT SCH (05:38)
[2019-11-08] MEDS: LACOSAMIDE 100 MG/10 ML UDC GT SCH ×2 (08:00→20:04)
[2019-11-08] MEDS: levETIRAcetam 500 MG/5 ML LIQUID UDC GT SCH ×2 (08:00→20:04)
[2019-11-08 08:23] VITALS: BP 104/56
[2019-11-08] MEDS: COD LIVER OIL/ZINC OXIDE OINT 113 GM TUBE TP SCH ×2 (08:56→20:05)
[2019-11-08] MEDS: CLINDAMYCIN TP SCH (08:56)
[2019-11-08] MEDS: ACIDOPHILUS/BULGARICUS CHEW TAB GT SCH ×2 (08:56→20:04)
[2019-11-08] MEDS: CHOLECALCIFEROL 1,000 UNIT TABLET GT SCH (08:56)
[2019-11-08] MEDS: NUTRISOURCE FIBER 4 GM PACKET GT SCH (08:56)
[2019-11-08] MEDS: METOPROLOL TARTRATE 50 MG TABLET GT SCH ×2 (09:00→20:04)
[2019-11-08] MEDS: AMLODIPINE 10 MG TABLET GT SCH (09:00)
[2019-11-08] MEDS: NEOMY/BACITRA/POLYMYXIN B OINT UD PACKET TP SCH (09:30)
[2019-11-08] MEDS: HEPARIN SODIUM,PORCINE 5,000 UNITS/ML VIAL SQ SCH ×2 (09:53→20:07)
[2019-11-08] MEDS: HYDROGEN PEROXIDE 3% 118 ML BOTTLE TOP SCH ×2 (10:30→21:40)
[2019-11-08] MEDS: JEVITY 1.2 1000 ML LIQUID GT PRN (12:21)
--- NOTE | 2019-11-08 15:20 | NUR ---
VIDEO CHAT DONE WITH PT'S MOTHER MILI AT THIS TIME.
[2019-11-08] MEDS: MELATONIN 5MG TABLET GT SCH (20:04)
[2019-11-08] MEDS: FERROUS SULFATE 330 MG/7.5 ML UDC- FOR SA ONLY GT SCH (20:04)
[2019-11-08] MEDS: MULTIVIT, IRON, MIN NO. 8, FA TABLET GT SCH (20:04)
[2019-11-08] MEDS: MINERAL OIL/PETROLATUM,WHITE 57 GM TUBE TP SCH (20:07)
[2019-11-08] MEDS: ADAPALENE 0.3% TP SCH (20:07)
[2019-11-08 22:57] VITALS: BP 117/75
[2019-11-09] MEDS: JEVITY 1.2 1000 ML LIQUID GT PRN ×2 (04:23→22:53)
[2019-11-09] MEDS: FAMOTIDINE 20 MG TABLET GT SCH (05:58)
[2019-11-09] MEDS: hydrALAZINE HCL 10 MG TABLET GT SCH ×3 (05:58→22:29)
[2019-11-09 07:42] VITALS: BP 127/55
[2019-11-09] MEDS: LACOSAMIDE 100 MG/10 ML UDC GT SCH ×2 (08:51→20:00)
[2019-11-09] MEDS: levETIRAcetam 500 MG/5 ML LIQUID UDC GT SCH ×2 (08:51→20:00)
[2019-11-09] MEDS: AMLODIPINE 10 MG TABLET GT SCH (08:52)
[2019-11-09] MEDS: NUTRISOURCE FIBER 4 GM PACKET GT SCH (08:52)
[2019-11-09] MEDS: ACIDOPHILUS/BULGARICUS CHEW TAB GT SCH ×2 (08:52→21:23)
[2019-11-09] MEDS: METOPROLOL TARTRATE 50 MG TABLET GT SCH ×2 (08:52→21:00)
[2019-11-09] MEDS: CHOLECALCIFEROL 1,000 UNIT TABLET GT SCH (08:54)
[2019-11-09] MEDS: HEPARIN SODIUM,PORCINE 5,000 UNITS/ML VIAL SQ SCH ×2 (08:55→21:00)
[2019-11-09] MEDS: NEOMY/BACITRA/POLYMYXIN B OINT UD PACKET TP SCH (08:56)
[2019-11-09] MEDS: COD LIVER OIL/ZINC OXIDE OINT 113 GM TUBE TP SCH ×2 (08:56→21:24)
[2019-11-09] MEDS: CLINDAMYCIN TP SCH (08:56)
[2019-11-09] MEDS: HYDROGEN PEROXIDE 3% 118 ML BOTTLE TOP SCH ×2 (09:31→21:24)
[2019-11-09] MEDS: FERROUS SULFATE 330 MG/7.5 ML UDC- FOR SA ONLY GT SCH (21:23)
[2019-11-09] MEDS: MELATONIN 5MG TABLET GT SCH (21:24)
[2019-11-09] MEDS: MULTIVIT, IRON, MIN NO. 8, FA TABLET GT SCH (21:24)
[2019-11-09] MEDS: MINERAL OIL/PETROLATUM,WHITE 57 GM TUBE TP SCH (21:25)
[2019-11-09] MEDS: ADAPALENE 0.3% TP SCH (21:25)
[2019-11-09 23:31] VITALS: BP 109/65
[2019-11-10] VITALS: BP 113/76
[2019-11-10] MEDS: hydrALAZINE HCL 10 MG TABLET GT SCH ×3 (05:58→22:00)
[2019-11-10] MEDS: FAMOTIDINE 20 MG TABLET GT SCH (05:58)
[2019-11-10] MEDS: CHOLECALCIFEROL 1,000 UNIT TABLET GT SCH (05:58)
[2019-11-10 07:01] VITALS: BP 88/52
[2019-11-10 07:37] VITALS: BP 110/62
[2019-11-10] MEDS: levETIRAcetam 500 MG/5 ML LIQUID UDC GT SCH ×2 (08:13→20:06)
[2019-11-10] MEDS: METOPROLOL TARTRATE 50 MG TABLET GT SCH ×2 (08:13→21:22)
[2019-11-10] MEDS: ACIDOPHILUS/BULGARICUS CHEW TAB GT SCH ×2 (08:13→21:21)
[2019-11-10] MEDS: LACOSAMIDE 100 MG/10 ML UDC GT SCH ×2 (08:13→20:06)
[2019-11-10] MEDS: NUTRISOURCE FIBER 4 GM PACKET GT SCH (08:14)
[2019-11-10] MEDS: AMLODIPINE 10 MG TABLET GT SCH (08:14)
[2019-11-10] MEDS: COD LIVER OIL/ZINC OXIDE OINT 113 GM TUBE TP SCH ×2 (08:16→21:22)
[2019-11-10] MEDS: NEOMY/BACITRA/POLYMYXIN B OINT UD PACKET TP SCH (08:16)
[2019-11-10] MEDS: CLINDAMYCIN TP SCH (08:16)
[2019-11-10] MEDS: HEPARIN SODIUM,PORCINE 5,000 UNITS/ML VIAL SQ SCH (08:16)
[2019-11-10] MEDS: HYDROGEN PEROXIDE 3% 118 ML BOTTLE TOP SCH ×2 (09:32→21:02)
--- NOTE | 2019-11-10 15:30 | NUR ---
Provided video chat to pt. and her mother with no problems note, pt clean and comfortable all needs attended and anticipated.
[2019-11-10 20:44] VITALS: BP 130/81
[2019-11-10] MEDS: FERROUS SULFATE 330 MG/7.5 ML UDC- FOR SA ONLY GT SCH (21:21)
[2019-11-10] MEDS: MULTIVIT, IRON, MIN NO. 8, FA TABLET GT SCH (21:22)
[2019-11-10] MEDS: MELATONIN 5MG TABLET GT SCH (21:22)
[2019-11-10] MEDS: ADAPALENE 0.3% TP SCH (21:23)
[2019-11-10] MEDS: MINERAL OIL/PETROLATUM,WHITE 57 GM TUBE TP SCH (21:23)
[2019-11-11] MEDS: hydrALAZINE HCL 10 MG TABLET GT SCH ×3 (06:00→22:25)
[2019-11-11] MEDS: FAMOTIDINE 20 MG TABLET GT SCH (06:43)
[2019-11-11] MEDS: CHOLECALCIFEROL 1,000 UNIT TABLET GT SCH (06:43)
[2019-11-11 06:58] VITALS: BP 95/48
[2019-11-11 08:00] VITALS: BP 101/55
[2019-11-11] MEDS: levETIRAcetam 500 MG/5 ML LIQUID UDC GT SCH ×2 (08:50→20:11)
[2019-11-11] MEDS: LACOSAMIDE 100 MG/10 ML UDC GT SCH ×2 (08:50→20:11)
[2019-11-11] MEDS: ACIDOPHILUS/BULGARICUS CHEW TAB GT SCH ×2 (08:50→20:12)
[2019-11-11] MEDS: METOPROLOL TARTRATE 50 MG TABLET GT SCH ×2 (08:54→20:13)
[2019-11-11] MEDS: CLINDAMYCIN TP SCH (08:55)
[2019-11-11] MEDS: COD LIVER OIL/ZINC OXIDE OINT 113 GM TUBE TP SCH ×3 (08:55→20:16)
[2019-11-11] MEDS: NUTRISOURCE FIBER 4 GM PACKET GT SCH (08:55)
[2019-11-11] MEDS: AMLODIPINE 10 MG TABLET GT SCH (08:55)
[2019-11-11] MEDS: NEOMY/BACITRA/POLYMYXIN B OINT UD PACKET TP SCH (08:55)
[2019-11-11] MEDS: HYDROGEN PEROXIDE 3% 118 ML BOTTLE TOP SCH ×2 (09:52→21:01)
--- NOTE | 2019-11-11 15:00 | NUR ---
Pt's mother called Abdoul inquiring regarding pt's vital signs, current conditions and any changes. Gave her all the informations that she asks for, but she was questioning why blood pressure goes a certain level and then goes lower than the initial one taken. Family teaching given regarding blood pressure fluctuation,changes and variation. It took awhile to get the mother understand the family teaching being given. Pt remains comfortable and all needs attended and anticipated.
[2019-11-11] MEDS: RIVAROXABAN 10 MG TABLET GT SCH (20:10)
[2019-11-11] MEDS: FERROUS SULFATE 330 MG/7.5 ML UDC- FOR SA ONLY GT SCH (20:11)
[2019-11-11] MEDS: MELATONIN 5MG TABLET GT SCH (20:13)
[2019-11-11] MEDS: MULTIVIT, IRON, MIN NO. 8, FA TABLET GT SCH (20:15)
[2019-11-11 20:16] VITALS: BP 137/69
[2019-11-11] MEDS: ADAPALENE 0.3% TP SCH (20:16)
[2019-11-11] MEDS: MINERAL OIL/PETROLATUM,WHITE 57 GM TUBE TP SCH (20:16)
[2019-11-12] MEDS: JEVITY 1.2 1000 ML LIQUID GT PRN (00:58)
[2019-11-12] MEDS: FAMOTIDINE 20 MG TABLET GT SCH (06:02)
[2019-11-12] MEDS: hydrALAZINE HCL 10 MG TABLET GT SCH ×3 (06:02→22:00)
[2019-11-12] MEDS: CHOLECALCIFEROL 1,000 UNIT TABLET GT SCH (06:03)
[2019-11-12 08:00] VITALS: BP 106/56
[2019-11-12] MEDS: LACOSAMIDE 100 MG/10 ML UDC GT SCH ×2 (08:38→20:09)
[2019-11-12] MEDS: levETIRAcetam 500 MG/5 ML LIQUID UDC GT SCH ×2 (08:38→20:09)
[2019-11-12] MEDS: ACIDOPHILUS/BULGARICUS CHEW TAB GT SCH ×2 (08:39→20:09)
[2019-11-12] MEDS: METOPROLOL TARTRATE 50 MG TABLET GT SCH ×2 (08:41→20:10)
[2019-11-12] MEDS: NUTRISOURCE FIBER 4 GM PACKET GT SCH (08:41)
[2019-11-12] MEDS: AMLODIPINE 10 MG TABLET GT SCH (08:41)
[2019-11-12] MEDS: COD LIVER OIL/ZINC OXIDE OINT 113 GM TUBE TP SCH ×3 (08:42→20:11)
[2019-11-12] MEDS: NEOMY/BACITRA/POLYMYXIN B OINT UD PACKET TP SCH (08:43)
[2019-11-12] MEDS: CLINDAMYCIN TP SCH (08:43)
[2019-11-12] MEDS: HYDROGEN PEROXIDE 3% 118 ML BOTTLE TOP SCH ×2 (10:10→21:25)
--- NOTE | 2019-11-12 18:01 | NUR ---
Tx on the lower lip bite,renewed ,noted still open on the r side of the lower lip,Abdoul pt's mother aware.Dr Ramos aware pt has a increase of spasticity, continue on physical therapy,new orders for neuro consult with Dr Acevedo ?needs of antispasm meds.
--- NOTE | 2019-11-12 19:15 | NUR ---
Spoke to Abdoul perla's mother ,and aware of new orders,she request Dr Acevedo to call her when he comes for the consult.
[2019-11-12] MEDS: FERROUS SULFATE 330 MG/7.5 ML UDC- FOR SA ONLY GT SCH (20:09)
[2019-11-12] MEDS: RIVAROXABAN 10 MG TABLET GT SCH (20:10)
[2019-11-12] MEDS: MELATONIN 5MG TABLET GT SCH (20:10)
[2019-11-12] MEDS: MULTIVIT, IRON, MIN NO. 8, FA TABLET GT SCH (20:10)
[2019-11-12] MEDS: ADAPALENE 0.3% TP SCH (20:11)
[2019-11-12] MEDS: MINERAL OIL/PETROLATUM,WHITE 57 GM TUBE TP SCH (20:11)
[2019-11-12 20:15] VITALS: BP 124/77
[2019-11-12 22:10] VITALS: BP 102/62
[2019-11-13] MEDS: FAMOTIDINE 20 MG TABLET GT SCH (06:00)
[2019-11-13] MEDS: hydrALAZINE HCL 10 MG TABLET GT SCH ×3 (06:00→22:00)
[2019-11-13] MEDS: CHOLECALCIFEROL 1,000 UNIT TABLET GT SCH (06:00)
[2019-11-13 08:00] VITALS: BP 126/76
[2019-11-13] MEDS: LACOSAMIDE 100 MG/10 ML UDC GT SCH ×2 (08:35→20:25)
[2019-11-13] MEDS: levETIRAcetam 500 MG/5 ML LIQUID UDC GT SCH ×2 (08:35→20:25)
[2019-11-13] MEDS: ACIDOPHILUS/BULGARICUS CHEW TAB GT SCH ×2 (08:36→20:25)
[2019-11-13] MEDS: AMLODIPINE 10 MG TABLET GT SCH (08:40)
[2019-11-13] MEDS: COD LIVER OIL/ZINC OXIDE OINT 113 GM TUBE TP SCH ×3 (08:40→20:26)
[2019-11-13] MEDS: NUTRISOURCE FIBER 4 GM PACKET GT SCH (08:40)
[2019-11-13] MEDS: METOPROLOL TARTRATE 50 MG TABLET GT SCH ×2 (08:40→21:00)
[2019-11-13] MEDS: CLINDAMYCIN TP SCH (08:41)
[2019-11-13] MEDS: NEOMY/BACITRA/POLYMYXIN B OINT UD PACKET TP SCH (08:41)
[2019-11-13] MEDS: HYDROGEN PEROXIDE 3% 118 ML BOTTLE TOP SCH ×2 (09:00→21:00)
--- NOTE | 2019-11-13 16:00 | NUR ---
DR. ESTRADA (NEUROLOGIST) AWARE THAT PT'S MOTHER WANTS TO TALK TO HIM AND ALSO AWARE TO CHECK PT. RE:TO CONSIDER ANTISPASM MEDICATION,AND HE STATED THAT HE WILL CALL PT'S MOTHER IN HER CELL PHONE.
[2019-11-13 20:08] VITALS: BP 139/71
[2019-11-13] MEDS: MULTIVIT, IRON, MIN NO. 8, FA TABLET GT SCH (20:25)
[2019-11-13] MEDS: FERROUS SULFATE 330 MG/7.5 ML UDC- FOR SA ONLY GT SCH (20:25)
[2019-11-13] MEDS: MELATONIN 5MG TABLET GT SCH (20:25)
[2019-11-13] MEDS: ADAPALENE 0.3% TP SCH (20:26)
[2019-11-13] MEDS: RIVAROXABAN 10 MG TABLET GT SCH (20:26)
[2019-11-13] MEDS: MINERAL OIL/PETROLATUM,WHITE 57 GM TUBE TP SCH (20:26)
[2019-11-14] MEDS: JEVITY 1.2 1000 ML LIQUID GT PRN ×2 (04:32→21:45)
[2019-11-14] MEDS: hydrALAZINE HCL 10 MG TABLET GT SCH ×3 (06:00→21:23)
[2019-11-14] MEDS: FAMOTIDINE 20 MG TABLET GT SCH (06:03)
[2019-11-14] MEDS: CHOLECALCIFEROL 1,000 UNIT TABLET GT SCH (06:03)
[2019-11-14 06:32] VITALS: BP 97/51
[2019-11-14 08:00] VITALS: BP 120/57
[2019-11-14] MEDS: HYDROGEN PEROXIDE 3% 118 ML BOTTLE TOP SCH ×2 (08:16→21:18)
[2019-11-14] MEDS: LACOSAMIDE 100 MG/10 ML UDC GT SCH ×2 (08:58→20:34)
[2019-11-14] MEDS: levETIRAcetam 500 MG/5 ML LIQUID UDC GT SCH ×2 (08:58→20:34)
[2019-11-14] MEDS: ACIDOPHILUS/BULGARICUS CHEW TAB GT SCH ×2 (08:59→20:34)
[2019-11-14] MEDS: METOPROLOL TARTRATE 50 MG TABLET GT SCH ×2 (09:02→20:34)
[2019-11-14] MEDS: COD LIVER OIL/ZINC OXIDE OINT 113 GM TUBE TP SCH ×3 (09:03→20:35)
[2019-11-14] MEDS: NUTRISOURCE FIBER 4 GM PACKET GT SCH (09:03)
[2019-11-14] MEDS: CLINDAMYCIN TP SCH (09:03)
[2019-11-14] MEDS: NEOMY/BACITRA/POLYMYXIN B OINT UD PACKET TP SCH (09:03)
[2019-11-14] MEDS: AMLODIPINE 10 MG TABLET GT SCH (09:03)
--- NOTE | 2019-11-14 15:30 | NUR ---
ZOOM MEETING PROVIDED TO PT'S MOTHER.
[2019-11-14] MEDS: FERROUS SULFATE 330 MG/7.5 ML UDC- FOR SA ONLY GT SCH (20:34)
[2019-11-14] MEDS: MELATONIN 5MG TABLET GT SCH (20:34)
[2019-11-14] MEDS: MULTIVIT, IRON, MIN NO. 8, FA TABLET GT SCH (20:34)
[2019-11-14] MEDS: RIVAROXABAN 10 MG TABLET GT SCH (20:34)
[2019-11-14] MEDS: ADAPALENE 0.3% TP SCH (20:35)
[2019-11-14] MEDS: MINERAL OIL/PETROLATUM,WHITE 57 GM TUBE TP SCH (20:35)
[2019-11-14 22:45] VITALS: BP 125/73
[2019-11-15] MEDS: hydrALAZINE HCL 10 MG TABLET GT SCH ×3 (05:22→21:25)
[2019-11-15] MEDS: CHOLECALCIFEROL 1,000 UNIT TABLET GT SCH (05:23)
[2019-11-15] MEDS: FAMOTIDINE 20 MG TABLET GT SCH (05:23)
[2019-11-15 07:37] VITALS: BP 121/52
[2019-11-15] MEDS: levETIRAcetam 500 MG/5 ML LIQUID UDC GT SCH ×2 (08:36→20:35)
[2019-11-15] MEDS: ACIDOPHILUS/BULGARICUS CHEW TAB GT SCH ×2 (08:36→20:35)
[2019-11-15] MEDS: METOPROLOL TARTRATE 50 MG TABLET GT SCH ×2 (08:37→20:36)
[2019-11-15] MEDS: COD LIVER OIL/ZINC OXIDE OINT 113 GM TUBE TP SCH ×3 (08:38→20:36)
[2019-11-15] MEDS: NUTRISOURCE FIBER 4 GM PACKET GT SCH (08:38)
[2019-11-15] MEDS: AMLODIPINE 10 MG TABLET GT SCH (08:38)
[2019-11-15] MEDS: NEOMY/BACITRA/POLYMYXIN B OINT UD PACKET TP SCH (08:39)
[2019-11-15] MEDS: CLINDAMYCIN TP SCH (08:39)
[2019-11-15] MEDS: LACOSAMIDE 100 MG/10 ML UDC GT SCH ×2 (08:41→20:35)
[2019-11-15] MEDS: HYDROGEN PEROXIDE 3% 118 ML BOTTLE TOP SCH ×2 (09:00→21:43)
[2019-11-15] MEDS: JEVITY 1.2 1000 ML LIQUID GT PRN (16:04)
[2019-11-15] MEDS: FERROUS SULFATE 330 MG/7.5 ML UDC- FOR SA ONLY GT SCH (20:35)
[2019-11-15] MEDS: MINERAL OIL/PETROLATUM,WHITE 57 GM TUBE TP SCH (20:36)
[2019-11-15] MEDS: RIVAROXABAN 10 MG TABLET GT SCH (20:36)
[2019-11-15] MEDS: MULTIVIT, IRON, MIN NO. 8, FA TABLET GT SCH (20:36)
[2019-11-15] MEDS: MELATONIN 5MG TABLET GT SCH (20:36)
[2019-11-15] MEDS: ADAPALENE 0.3% TP SCH (20:36)
[2019-11-15 22:02] VITALS: BP 119/63
[2019-11-16] MEDS: FAMOTIDINE 20 MG TABLET GT SCH (05:21)
[2019-11-16] MEDS: hydrALAZINE HCL 10 MG TABLET GT SCH ×3 (05:21→22:00)
[2019-11-16] MEDS: CHOLECALCIFEROL 1,000 UNIT TABLET GT SCH (05:21)
[2019-11-16 08:02] VITALS: BP 117/75
[2019-11-16] MEDS: LACOSAMIDE 100 MG/10 ML UDC GT SCH ×2 (08:46→20:50)
[2019-11-16] MEDS: levETIRAcetam 500 MG/5 ML LIQUID UDC GT SCH ×2 (08:46→20:50)
[2019-11-16] MEDS: ACIDOPHILUS/BULGARICUS CHEW TAB GT SCH ×2 (08:46→20:50)
[2019-11-16] MEDS: METOPROLOL TARTRATE 50 MG TABLET GT SCH ×2 (08:47→20:50)
[2019-11-16] MEDS: AMLODIPINE 10 MG TABLET GT SCH (08:47)
[2019-11-16] MEDS: NUTRISOURCE FIBER 4 GM PACKET GT SCH (08:48)
[2019-11-16] MEDS: NEOMY/BACITRA/POLYMYXIN B OINT UD PACKET TP SCH (08:48)
[2019-11-16] MEDS: CLINDAMYCIN TP SCH (08:48)
[2019-11-16] MEDS: COD LIVER OIL/ZINC OXIDE OINT 113 GM TUBE TP SCH ×3 (08:48→20:50)
[2019-11-16] MEDS: HYDROGEN PEROXIDE 3% 118 ML BOTTLE TOP SCH ×2 (09:00→21:28)
[2019-11-16] MEDS: JEVITY 1.2 1000 ML LIQUID GT PRN (17:18)
--- NOTE | 2019-11-16 17:32 | NUR ---
ZOOM MEETING PROVIED TP MOTHER.
[2019-11-16] MEDS: RIVAROXABAN 10 MG TABLET GT SCH (20:45)
[2019-11-16] MEDS: MULTIVIT, IRON, MIN NO. 8, FA TABLET GT SCH (20:50)
[2019-11-16] MEDS: FERROUS SULFATE 330 MG/7.5 ML UDC- FOR SA ONLY GT SCH (20:50)
[2019-11-16] MEDS: MINERAL OIL/PETROLATUM,WHITE 57 GM TUBE TP SCH (20:50)
[2019-11-16] MEDS: ADAPALENE 0.3% TP SCH (20:50)
[2019-11-16] MEDS: MELATONIN 5MG TABLET GT SCH (20:50)
[2019-11-16 22:39] VITALS: BP 120/73
[2019-11-17] MEDS: FAMOTIDINE 20 MG TABLET GT SCH (05:29)
[2019-11-17] MEDS: CHOLECALCIFEROL 1,000 UNIT TABLET GT SCH (05:29)
[2019-11-17] MEDS: hydrALAZINE HCL 10 MG TABLET GT SCH ×3 (05:29→22:00)
[2019-11-17 07:59] VITALS: BP 107/69
[2019-11-17] MEDS: LACOSAMIDE 100 MG/10 ML UDC GT SCH ×2 (08:28→20:56)
[2019-11-17] MEDS: levETIRAcetam 500 MG/5 ML LIQUID UDC GT SCH ×2 (08:28→20:00)
[2019-11-17] MEDS: ACIDOPHILUS/BULGARICUS CHEW TAB GT SCH ×2 (08:28→21:02)
[2019-11-17] MEDS: METOPROLOL TARTRATE 50 MG TABLET GT SCH ×2 (08:30→21:00)
[2019-11-17] MEDS: NUTRISOURCE FIBER 4 GM PACKET GT SCH (08:30)
[2019-11-17] MEDS: AMLODIPINE 10 MG TABLET GT SCH (08:30)
[2019-11-17] MEDS: NEOMY/BACITRA/POLYMYXIN B OINT UD PACKET TP SCH (08:31)
[2019-11-17] MEDS: COD LIVER OIL/ZINC OXIDE OINT 113 GM TUBE TP SCH ×3 (08:31→21:05)
[2019-11-17] MEDS: CLINDAMYCIN TP SCH (08:31)
[2019-11-17] MEDS: HYDROGEN PEROXIDE 3% 118 ML BOTTLE TOP SCH ×2 (08:47→21:43)
--- NOTE | 2019-11-17 15:56 | NUR ---
zoom meeting done with mother.
[2019-11-17 20:25] VITALS: BP 131/75
[2019-11-17] MEDS: RIVAROXABAN 10 MG TABLET GT SCH (21:00)
[2019-11-17] MEDS: FERROUS SULFATE 330 MG/7.5 ML UDC- FOR SA ONLY GT SCH (21:02)
[2019-11-17] MEDS: MULTIVIT, IRON, MIN NO. 8, FA TABLET GT SCH (21:04)
[2019-11-17] MEDS: MELATONIN 5MG TABLET GT SCH (21:04)
[2019-11-17] MEDS: ADAPALENE 0.3% TP SCH (21:05)
[2019-11-17] MEDS: MINERAL OIL/PETROLATUM,WHITE 57 GM TUBE TP SCH (21:05)
[2019-11-17 22:00] VITALS: BP 107/65
[2019-11-18] MEDS: FAMOTIDINE 20 MG TABLET GT SCH (05:25)
[2019-11-18] MEDS: hydrALAZINE HCL 10 MG TABLET GT SCH ×3 (05:25→22:00)
[2019-11-18] MEDS: CHOLECALCIFEROL 1,000 UNIT TABLET GT SCH (05:25)
[2019-11-18 08:00] VITALS: BP 105/64
[2019-11-18] MEDS: LACOSAMIDE 100 MG/10 ML UDC GT SCH ×2 (08:00→20:26)
[2019-11-18] MEDS: levETIRAcetam 500 MG/5 ML LIQUID UDC GT SCH ×2 (08:00→20:26)
[2019-11-18] MEDS: NUTRISOURCE FIBER 4 GM PACKET GT SCH (08:30)
[2019-11-18] MEDS: METOPROLOL TARTRATE 50 MG TABLET GT SCH ×2 (08:30→20:29)
[2019-11-18] MEDS: AMLODIPINE 10 MG TABLET GT SCH (08:30)
[2019-11-18] MEDS: COD LIVER OIL/ZINC OXIDE OINT 113 GM TUBE TP SCH ×3 (08:30→20:30)
[2019-11-18] MEDS: ACIDOPHILUS/BULGARICUS CHEW TAB GT SCH ×2 (09:01→20:28)
[2019-11-18] MEDS: CLINDAMYCIN TP SCH (09:05)
[2019-11-18] MEDS: NEOMY/BACITRA/POLYMYXIN B OINT UD PACKET TP SCH (09:05)
[2019-11-18] MEDS: HYDROGEN PEROXIDE 3% 118 ML BOTTLE TOP SCH ×2 (10:00→21:39)
--- NOTE | 2019-11-18 12:00 | NUR ---
SEEN BY QUAN Sharma AND WITH NNO.
[2019-11-18] MEDS: JEVITY 1.2 1000 ML LIQUID GT PRN (12:49)
--- NOTE | 2019-11-18 16:45 | NUR ---
video chat done with patient's mother at this time.
[2019-11-18 20:00] VITALS: BP 142/73
[2019-11-18] MEDS: FERROUS SULFATE 330 MG/7.5 ML UDC- FOR SA ONLY GT SCH (20:27)
[2019-11-18] MEDS: MULTIVIT, IRON, MIN NO. 8, FA TABLET GT SCH (20:29)
[2019-11-18] MEDS: MELATONIN 5MG TABLET GT SCH (20:29)
[2019-11-18] MEDS: MINERAL OIL/PETROLATUM,WHITE 57 GM TUBE TP SCH (20:30)
[2019-11-18] MEDS: RIVAROXABAN 10 MG TABLET GT SCH (20:30)
[2019-11-18] MEDS: ADAPALENE 0.3% TP SCH (20:30)
[2019-11-18 22:00] VITALS: BP 93/57
[2019-11-19] MEDS: JEVITY 1.2 1000 ML LIQUID GT PRN (04:00)
[2019-11-19] MEDS: hydrALAZINE HCL 10 MG TABLET GT SCH ×3 (05:44→22:00)
[2019-11-19] MEDS: FAMOTIDINE 20 MG TABLET GT SCH (05:45)
[2019-11-19] MEDS: CHOLECALCIFEROL 1,000 UNIT TABLET GT SCH (05:45)
[2019-11-19 06:00] VITALS: BP 95/59
[2019-11-19 08:00] VITALS: BP_SYST 113; BP_SYST 118; BP_DIAS 61; BP_DIAS 77
[2019-11-19] MEDS: levETIRAcetam 500 MG/5 ML LIQUID UDC GT SCH ×2 (08:15→20:16)
[2019-11-19] MEDS: NUTRISOURCE FIBER 4 GM PACKET GT SCH (08:15)
[2019-11-19] MEDS: METOPROLOL TARTRATE 50 MG TABLET GT SCH ×2 (08:15→20:17)
[2019-11-19] MEDS: AMLODIPINE 10 MG TABLET GT SCH (08:15)
[2019-11-19] MEDS: ACIDOPHILUS/BULGARICUS CHEW TAB GT SCH ×2 (08:15→20:16)
[2019-11-19] MEDS: LACOSAMIDE 100 MG/10 ML UDC GT SCH ×2 (08:15→20:16)
[2019-11-19] MEDS: COD LIVER OIL/ZINC OXIDE OINT 113 GM TUBE TP SCH ×3 (08:27→20:20)
[2019-11-19] MEDS: CLINDAMYCIN TP SCH (08:27)
[2019-11-19] MEDS: NEOMY/BACITRA/POLYMYXIN B OINT UD PACKET TP SCH (08:28)
[2019-11-19] MEDS: HYDROGEN PEROXIDE 3% 118 ML BOTTLE TOP SCH ×2 (09:50→21:22)
--- NOTE | 2019-11-19 15:50 | NUR ---
video chat done with patient's mother at this time.
[2019-11-19 20:00] VITALS: BP 111/49
[2019-11-19] MEDS: FERROUS SULFATE 330 MG/7.5 ML UDC- FOR SA ONLY GT SCH (20:16)
[2019-11-19] MEDS: MELATONIN 5MG TABLET GT SCH (20:17)
[2019-11-19] MEDS: MULTIVIT, IRON, MIN NO. 8, FA TABLET GT SCH (20:19)
[2019-11-19] MEDS: ADAPALENE 0.3% TP SCH (20:20)
[2019-11-19] MEDS: MINERAL OIL/PETROLATUM,WHITE 57 GM TUBE TP SCH (20:20)
[2019-11-19] MEDS: RIVAROXABAN 10 MG TABLET GT SCH (20:20)
[2019-11-20] MEDS: JEVITY 1.2 1000 ML LIQUID GT PRN (01:00)
[2019-11-20] MEDS: hydrALAZINE HCL 10 MG TABLET GT SCH ×3 (05:05→22:00)
[2019-11-20] MEDS: CHOLECALCIFEROL 1,000 UNIT TABLET GT SCH (05:06)
[2019-11-20] MEDS: FAMOTIDINE 20 MG TABLET GT SCH (05:06)
[2019-11-20 06:09] LABS: BASOPHILS % (AUTO) 0.6 % (0.0-2.0); EOSINOPHILS # (AUTO) 0.4 K/uL (0.0-0.7); EOSINOPHILS % (AUTO) 5.1 % (0.0-7.0); HEMATOCRIT 39.4 % (31.2-41.9); HEMOGLOBIN 13.5 g/dL (10.9-14.3); LYMPHOCYTES # (AUTO) 1.6 K/uL (20.0-40.0); LYMPHOCYTES % (AUTO) 21.9 % (20.5-51.5); MEAN CORPUSCULAR HEMOGLOBIN 31.4 uug (24.7-32.8); MEAN CORPUSCULAR HGB CONC 34 g/dL (32.3-35.6); MONOCYTES # (AUTO) 0.5 K/uL (2.0-10.0); MONOCYTES % (AUTO) 7.1 % (0.0-11.0); NEUTROPHILS # (AUTO) 4.8 K/uL (1.8-8.9); NEUTROPHILS % (AUTO) 65.3 % (38.5-71.5); PLATELET COUNT (AUTO) 343 K/uL (179-408); RED BLOOD CELL COUNT(AUTO) 4.29 MIL/uL (3.63-4.92); WHITE BLOOD COUNT (AUTO) 7.4 K/uL (3.8-11.8)
[2019-11-20 06:15] LABS: CARBON DIOXIDE 32 mmol/L (21-32); CHLORIDE 106 mmol/L (98-107); CREATININE 0.5 mg/dL (0.6-1.3); GLUCOSE 84 mg/dL (74-106); MAGNESIUM 2.2 mg/dL (1.8-2.4); PHOSPHOROUS 5.3 mg/dL (2.5-4.9); POTASSIUM 4.4 mmol/L (3.5-5.1); UREA NITROGEN, BLOOD 11 mg/dL (7-18)
[2019-11-20 08:00] VITALS: BP 116/69
[2019-11-20] MEDS: levETIRAcetam 500 MG/5 ML LIQUID UDC GT SCH ×2 (08:00→20:38)
[2019-11-20] MEDS: ACIDOPHILUS/BULGARICUS CHEW TAB GT SCH ×2 (08:01→20:39)
[2019-11-20] MEDS: LACOSAMIDE 100 MG/10 ML UDC GT SCH ×2 (08:01→20:38)
[2019-11-20] MEDS: METOPROLOL TARTRATE 50 MG TABLET GT SCH ×2 (08:03→20:40)
[2019-11-20] MEDS: NUTRISOURCE FIBER 4 GM PACKET GT SCH (08:03)
[2019-11-20] MEDS: AMLODIPINE 10 MG TABLET GT SCH (08:03)
[2019-11-20] MEDS: COD LIVER OIL/ZINC OXIDE OINT 113 GM TUBE TP SCH ×3 (08:04→20:42)
[2019-11-20] MEDS: CLINDAMYCIN TP SCH (08:08)
[2019-11-20] MEDS: NEOMY/BACITRA/POLYMYXIN B OINT UD PACKET TP SCH (08:09)
--- NOTE | 2019-11-20 09:27 | NUR ---
SAPNA sent patient's mother Abdoul an email, letting her know that the next IDT meeting for the patient has been scheduled for 11/25/2019 at 11am. In this email, SAPNA asked Abdoul to respond to this SW and let her know if she would like to participate in the IDT meeting via speaker phone.
[2019-11-20] MEDS: HYDROGEN PEROXIDE 3% 118 ML BOTTLE TOP SCH ×2 (10:35→21:40)
[2019-11-20 14:00] VITALS: BP 122/68
--- NOTE | 2019-11-20 15:18 | NUR ---
1:59pm: SAPNA called the [facility] Ombudsman [phone] and spoke with Abimael Valadez. This call was in response to a voicemail that Abimael had left his SW at 1:40pm today, wanting to follow-up on the SOC 341 that was submitted to the Ombudsman back in June 2019. SAPNA informed Abimael that due to the visitation restrictions put in place in response to the COVID-19 pandemic, the patient has not had any visitations since mid-July. Yoanatania expressed understanding and stated that the [facility] will continue to keep this report on hold until the visitation restrictions are lifted and they are able to follow-up in-person. SAPNA expressed understanding. SAPNA informed Deputy Coroner Investigator Germaine Gonzalez and YARI Liu about above phone call.
--- NOTE | 2019-11-20 15:45 | NUR ---
PROVIDED ZOOM COMMUNICATION FOR PATIENT WITH MOTHER. PATIENT STABLE, NO SIGNS OF PAIN OR DISCOMFORT AT THIS TIME. WILL CONTINUE TO MONITOR.
[2019-11-20] MEDS: FERROUS SULFATE 330 MG/7.5 ML UDC- FOR SA ONLY GT SCH (20:39)
[2019-11-20] MEDS: MULTIVIT, IRON, MIN NO. 8, FA TABLET GT SCH (20:40)
[2019-11-20] MEDS: MELATONIN 5MG TABLET GT SCH (20:40)
[2019-11-20] MEDS: RIVAROXABAN 10 MG TABLET GT SCH (20:41)
[2019-11-20] MEDS: MINERAL OIL/PETROLATUM,WHITE 57 GM TUBE TP SCH (20:42)
[2019-11-20] MEDS: ADAPALENE 0.3% TP SCH (20:43)
[2019-11-21] MEDS: hydrALAZINE HCL 10 MG TABLET GT SCH ×3 (05:56→22:00)
[2019-11-21] MEDS: FAMOTIDINE 20 MG TABLET GT SCH (05:57)
[2019-11-21] MEDS: CHOLECALCIFEROL 1,000 UNIT TABLET GT SCH (05:57)
[2019-11-21 08:00] VITALS: BP 109/65
[2019-11-21] MEDS: LACOSAMIDE 100 MG/10 ML UDC GT SCH ×2 (08:26→20:28)
[2019-11-21] MEDS: levETIRAcetam 500 MG/5 ML LIQUID UDC GT SCH ×2 (08:26→20:28)
[2019-11-21] MEDS: ACIDOPHILUS/BULGARICUS CHEW TAB GT SCH ×2 (08:27→21:56)
[2019-11-21] MEDS: NUTRISOURCE FIBER 4 GM PACKET GT SCH (08:34)
[2019-11-21] MEDS: METOPROLOL TARTRATE 50 MG TABLET GT SCH ×2 (08:34→21:57)
[2019-11-21] MEDS: AMLODIPINE 10 MG TABLET GT SCH (08:34)
[2019-11-21] MEDS: COD LIVER OIL/ZINC OXIDE OINT 113 GM TUBE TP SCH ×3 (08:35→21:57)
[2019-11-21] MEDS: CLINDAMYCIN TP SCH (08:35)
[2019-11-21] MEDS: NEOMY/BACITRA/POLYMYXIN B OINT UD PACKET TP SCH (08:35)
[2019-11-21 08:37] VITALS: BP 122/68
[2019-11-21] MEDS: HYDROGEN PEROXIDE 3% 118 ML BOTTLE TOP SCH ×2 (09:59→21:39)
--- NOTE | 2019-11-21 15:00 | NUR ---
provided zoom communications for patient with mother. patient stable, no signs of pain or distress. will continue to monitor.
[2019-11-21] MEDS: JEVITY 1.2 1000 ML LIQUID GT PRN (17:30)
[2019-11-21 20:38] VITALS: BP 116/73
[2019-11-21] MEDS: RIVAROXABAN 10 MG TABLET GT SCH (21:00)
[2019-11-21] MEDS: FERROUS SULFATE 330 MG/7.5 ML UDC- FOR SA ONLY GT SCH (21:56)
[2019-11-21] MEDS: MINERAL OIL/PETROLATUM,WHITE 57 GM TUBE TP SCH (21:57)
[2019-11-21] MEDS: MULTIVIT, IRON, MIN NO. 8, FA TABLET GT SCH (21:57)
[2019-11-21] MEDS: ADAPALENE 0.3% TP SCH (21:57)
[2019-11-21] MEDS: MELATONIN 5MG TABLET GT SCH (21:57)
[2019-11-21 22:00] VITALS: BP 105/60
[2019-11-22 06:00] VITALS: BP 88/47
[2019-11-22] MEDS: hydrALAZINE HCL 10 MG TABLET GT SCH ×3 (06:00→22:02)
[2019-11-22] MEDS: FAMOTIDINE 20 MG TABLET GT SCH (06:02)
[2019-11-22] MEDS: CHOLECALCIFEROL 1,000 UNIT TABLET GT SCH (06:02)
[2019-11-22 07:35] VITALS: BP 121/64
[2019-11-22] MEDS: LACOSAMIDE 100 MG/10 ML UDC GT SCH ×2 (08:01→20:19)
[2019-11-22] MEDS: levETIRAcetam 500 MG/5 ML LIQUID UDC GT SCH ×2 (08:01→20:19)
[2019-11-22] MEDS: ACIDOPHILUS/BULGARICUS CHEW TAB GT SCH ×2 (08:01→20:19)
[2019-11-22] MEDS: METOPROLOL TARTRATE 50 MG TABLET GT SCH ×2 (08:02→20:21)
[2019-11-22] MEDS: NUTRISOURCE FIBER 4 GM PACKET GT SCH (08:03)
[2019-11-22] MEDS: AMLODIPINE 10 MG TABLET GT SCH (08:03)
[2019-11-22] MEDS: COD LIVER OIL/ZINC OXIDE OINT 113 GM TUBE TP SCH ×3 (08:04→20:23)
[2019-11-22] MEDS: CLINDAMYCIN TP SCH (08:04)
[2019-11-22] MEDS: NEOMY/BACITRA/POLYMYXIN B OINT UD PACKET TP SCH (08:04)
[2019-11-22] MEDS: HYDROGEN PEROXIDE 3% 118 ML BOTTLE TOP SCH ×2 (09:00→21:30)
--- NOTE | 2019-11-22 10:30 | NUR ---
New orders from Dr Kiran carried out.
[2019-11-22 13:25] VITALS: BP 98/62
[2019-11-22] MEDS: JEVITY 1.2 1000 ML LIQUID GT PRN (16:39)
--- NOTE | 2019-11-22 17:00 | NUR ---
provided zoom for patient with mother. patient stable no signs of pain or distress, will continue to monitor.
[2019-11-22] MEDS: FERROUS SULFATE 330 MG/7.5 ML UDC- FOR SA ONLY GT SCH (20:19)
[2019-11-22] MEDS: MULTIVIT, IRON, MIN NO. 8, FA TABLET GT SCH (20:21)
[2019-11-22] MEDS: MELATONIN 5MG TABLET GT SCH (20:21)
[2019-11-22] MEDS: RIVAROXABAN 10 MG TABLET GT SCH (20:22)
[2019-11-22] MEDS: ADAPALENE 0.3% TP SCH (20:23)
[2019-11-22] MEDS: MINERAL OIL/PETROLATUM,WHITE 57 GM TUBE TP SCH (20:23)
[2019-11-22 23:34] VITALS: BP 135/78
[2019-11-23] MEDS: hydrALAZINE HCL 10 MG TABLET GT SCH ×3 (05:12→22:00)
[2019-11-23] MEDS: FAMOTIDINE 20 MG TABLET GT SCH (05:12)
[2019-11-23 07:46] VITALS: BP 101/61
[2019-11-23] MEDS: levETIRAcetam 500 MG/5 ML LIQUID UDC GT SCH ×2 (08:49→20:35)
[2019-11-23] MEDS: LACOSAMIDE 100 MG/10 ML UDC GT SCH ×2 (08:50→20:35)
[2019-11-23] MEDS: METOPROLOL TARTRATE 50 MG TABLET GT SCH ×2 (08:52→20:37)
[2019-11-23] MEDS: NUTRISOURCE FIBER 4 GM PACKET GT SCH (08:53)
[2019-11-23] MEDS: AMLODIPINE 10 MG TABLET GT SCH (08:53)
[2019-11-23] MEDS: COD LIVER OIL/ZINC OXIDE OINT 113 GM TUBE TP SCH ×3 (08:54→20:37)
[2019-11-23] MEDS: CLINDAMYCIN TP SCH (08:55)
[2019-11-23] MEDS: NEOMY/BACITRA/POLYMYXIN B OINT UD PACKET TP SCH (08:55)
[2019-11-23] MEDS: HYDROGEN PEROXIDE 3% 118 ML BOTTLE TOP SCH ×2 (09:00→19:35)
[2019-11-23] MEDS: ACIDOPHILUS/BULGARICUS CHEW TAB GT SCH ×2 (09:14→20:36)
[2019-11-23] MEDS: JEVITY 1.2 1000 ML LIQUID GT PRN (17:07)
--- NOTE | 2019-11-23 18:17 | NUR ---
zoom provided to mother.
[2019-11-23] MEDS: RIVAROXABAN 10 MG TABLET GT SCH (20:31)
[2019-11-23] MEDS: FERROUS SULFATE 330 MG/7.5 ML UDC- FOR SA ONLY GT SCH (20:35)
[2019-11-23] MEDS: MELATONIN 5MG TABLET GT SCH (20:36)
[2019-11-23] MEDS: MINERAL OIL/PETROLATUM,WHITE 57 GM TUBE TP SCH (20:37)
[2019-11-23] MEDS: ADAPALENE 0.3% TP SCH (20:37)
[2019-11-23] MEDS: MULTIVIT, IRON, MIN NO. 8, FA TABLET GT SCH (20:37)
[2019-11-23 22:34] VITALS: BP 140/74
[2019-11-24] MEDS: hydrALAZINE HCL 10 MG TABLET GT SCH ×3 (06:00→22:00)
[2019-11-24] MEDS: FAMOTIDINE 20 MG TABLET GT SCH (06:11)
[2019-11-24] MEDS: JEVITY 1.2 1000 ML LIQUID GT PRN ×2 (07:05→23:50)
[2019-11-24 07:27] LABS: BASOPHILS # (AUTO) 0.1 K/uL (0.0-8.0); BASOPHILS % (AUTO) 0.6 % (0.0-2.0); EOSINOPHILS # (AUTO) 0.3 K/uL (0.0-0.7); EOSINOPHILS % (AUTO) 3.9 % (0.0-7.0); HEMATOCRIT 38.9 % (31.2-41.9); HEMOGLOBIN 13.2 g/dL (10.9-14.3); LYMPHOCYTES # (AUTO) 1.6 K/uL (20.0-40.0); LYMPHOCYTES % (AUTO) 18.6 % (20.5-51.5); MEAN CORPUSCULAR HGB CONC 34 g/dL (32.3-35.6); MEAN CORPUSCULAR VOLUME 91.1 fL (75.5-95.3); MONOCYTES # (AUTO) 0.6 K/uL (2.0-10.0); MONOCYTES % (AUTO) 7.4 % (0.0-11.0); NEUTROPHILS # (AUTO) 5.9 K/uL (1.8-8.9); NEUTROPHILS % (AUTO) 69.5 % (38.5-71.5); PLATELET COUNT (AUTO) 333 K/uL (179-408); RED BLOOD CELL COUNT(AUTO) 4.27 MIL/uL (3.63-4.92); WHITE BLOOD COUNT (AUTO) 8.5 K/uL (3.8-11.8)
[2019-11-24] MEDS: HYDROGEN PEROXIDE 3% 118 ML BOTTLE TOP SCH ×2 (07:34→21:26)
[2019-11-24 07:43] LABS: CREATININE 0.6 mg/dL (0.6-1.3); MAGNESIUM 2.2 mg/dL (1.8-2.4); POTASSIUM 4.6 mmol/L (3.5-5.1)
[2019-11-24] MEDS: NUTRISOURCE FIBER 4 GM PACKET GT SCH (08:01)
[2019-11-24] MEDS: COD LIVER OIL/ZINC OXIDE OINT 113 GM TUBE TP SCH ×3 (08:01→20:40)
[2019-11-24] MEDS: ACIDOPHILUS/BULGARICUS CHEW TAB GT SCH ×2 (08:01→20:39)
[2019-11-24] MEDS: LACOSAMIDE 100 MG/10 ML UDC GT SCH ×2 (08:01→20:38)
[2019-11-24] MEDS: METOPROLOL TARTRATE 50 MG TABLET GT SCH ×2 (08:01→20:39)
[2019-11-24] MEDS: CLINDAMYCIN TP SCH (08:01)
[2019-11-24] MEDS: levETIRAcetam 500 MG/5 ML LIQUID UDC GT SCH ×2 (08:01→20:38)
[2019-11-24] MEDS: AMLODIPINE 10 MG TABLET GT SCH (08:01)
[2019-11-24] MEDS: NEOMY/BACITRA/POLYMYXIN B OINT UD PACKET TP SCH (08:02)
[2019-11-24 08:19] VITALS: BP 99/49
--- NOTE | 2019-11-24 15:47 | NUR ---
zoom provided to mother.
[2019-11-24] MEDS: RIVAROXABAN 10 MG TABLET GT SCH (20:32)
[2019-11-24] MEDS: FERROUS SULFATE 330 MG/7.5 ML UDC- FOR SA ONLY GT SCH (20:38)
[2019-11-24] MEDS: MELATONIN 5MG TABLET GT SCH (20:39)
[2019-11-24] MEDS: MULTIVIT, IRON, MIN NO. 8, FA TABLET GT SCH (20:39)
[2019-11-24] MEDS: MINERAL OIL/PETROLATUM,WHITE 57 GM TUBE TP SCH (20:40)
[2019-11-24] MEDS: ADAPALENE 0.3% TP SCH (20:40)
[2019-11-24 20:52] VITALS: BP 108/68
[2019-11-25] MEDS: FAMOTIDINE 20 MG TABLET GT SCH (05:56)
[2019-11-25] MEDS: hydrALAZINE HCL 10 MG TABLET GT SCH ×3 (05:56→22:00)
[2019-11-25 08:00] VITALS: BP 117/58
[2019-11-25] MEDS: levETIRAcetam 500 MG/5 ML LIQUID UDC GT SCH ×2 (08:57→20:21)
[2019-11-25] MEDS: ACIDOPHILUS/BULGARICUS CHEW TAB GT SCH ×2 (08:58→20:21)
[2019-11-25] MEDS: LACOSAMIDE 100 MG/10 ML UDC GT SCH ×2 (08:58→20:21)
[2019-11-25] MEDS: AMLODIPINE 10 MG TABLET GT SCH (08:58)
[2019-11-25] MEDS: METOPROLOL TARTRATE 50 MG TABLET GT SCH ×2 (08:58→20:22)
[2019-11-25] MEDS: NUTRISOURCE FIBER 4 GM PACKET GT SCH (08:59)
[2019-11-25] MEDS: COD LIVER OIL/ZINC OXIDE OINT 113 GM TUBE TP SCH ×2 (08:59→20:22)
[2019-11-25] MEDS: CLINDAMYCIN TP SCH (08:59)
[2019-11-25] MEDS: NEOMY/BACITRA/POLYMYXIN B OINT UD PACKET TP SCH (09:00)
--- NOTE | 2019-11-25 09:25 | NUR ---
SW received an email this morning from patient's mother Abdoul, stating that she would like to participate in the IDT meeting later today. SAPNA responded to Abdoul's email, asking her to be available between 11am-12pm today to receive this SAPNA's call during the IDT meeting.
[2019-11-25] MEDS: HYDROGEN PEROXIDE 3% 118 ML BOTTLE TOP SCH ×2 (09:43→21:26)
--- NOTE | 2019-11-25 10:00 | NUR ---
New orders noted for perineal and L and R buttocks rashes,carried out.
--- NOTE | 2019-11-25 14:35 | NUR ---
INTERDISCIPLINARY PLAN OF CARE CONFERENCE was held today. Patient's mother Abdoul participated in the meeting through speaker phone. Dr. Ramos and the Interdisciplinary Team reviewed the current plan of care in detail. RN reported on patient's medical condition, current skin treatment, and medications. No major changes in condition were reported. See RN IDT conference notes. PT reported on ongoing treatment plan for physical therapy. See all disciplines IDT notes and physician's progress notes for additional details. Abdoul's questions were addressed by the IDT team and by Dr. Ramos.
[2019-11-25] MEDS: RIVAROXABAN 10 MG TABLET GT SCH (20:14)
[2019-11-25] MEDS: FERROUS SULFATE 330 MG/7.5 ML UDC- FOR SA ONLY GT SCH (20:21)
[2019-11-25] MEDS: TRIAMCINOLONE ACET 0.1% CREAM 15 GM TUBE TP SCH (20:22)
[2019-11-25] MEDS: NYSTATIN CREAM 30 GM TUBE TP SCH (20:22)
[2019-11-25] MEDS: ADAPALENE 0.3% TP SCH (20:22)
[2019-11-25] MEDS: MINERAL OIL/PETROLATUM,WHITE 57 GM TUBE TP SCH (20:22)
[2019-11-25] MEDS: MULTIVIT, IRON, MIN NO. 8, FA TABLET GT SCH (20:22)
[2019-11-25] MEDS: MELATONIN 5MG TABLET GT SCH (20:22)
[2019-11-25 20:29] VITALS: BP 110/67
[2019-11-26] MEDS: JEVITY 1.2 1000 ML LIQUID GT PRN (02:30)
[2019-11-26] MEDS: hydrALAZINE HCL 10 MG TABLET GT SCH ×3 (06:00→22:00)
[2019-11-26] MEDS: FAMOTIDINE 20 MG TABLET GT SCH (06:15)
[2019-11-26] MEDS: HYDROGEN PEROXIDE 3% 118 ML BOTTLE TOP SCH ×2 (07:15→20:55)
[2019-11-26 08:00] VITALS: BP 115/65
[2019-11-26] MEDS: ACIDOPHILUS/BULGARICUS CHEW TAB GT SCH ×2 (08:54→20:18)
[2019-11-26] MEDS: LACOSAMIDE 100 MG/10 ML UDC GT SCH ×2 (08:54→20:18)
[2019-11-26] MEDS: levETIRAcetam 500 MG/5 ML LIQUID UDC GT SCH ×2 (08:54→20:18)
[2019-11-26] MEDS: NYSTATIN CREAM 30 GM TUBE TP SCH ×2 (08:55→20:21)
[2019-11-26] MEDS: METOPROLOL TARTRATE 50 MG TABLET GT SCH ×2 (08:55→20:19)
[2019-11-26] MEDS: AMLODIPINE 10 MG TABLET GT SCH (08:55)
[2019-11-26] MEDS: COD LIVER OIL/ZINC OXIDE OINT 113 GM TUBE TP SCH ×2 (08:55→20:20)
[2019-11-26] MEDS: NUTRISOURCE FIBER 4 GM PACKET GT SCH (08:55)
[2019-11-26] MEDS: CLINDAMYCIN TP SCH (08:55)
[2019-11-26] MEDS: TRIAMCINOLONE ACET 0.1% CREAM 15 GM TUBE TP SCH ×2 (08:55→20:21)
[2019-11-26] MEDS: NEOMY/BACITRA/POLYMYXIN B OINT UD PACKET TP SCH (08:55)
--- NOTE | 2019-11-26 15:15 | NUR ---
Provided video chat to pt and her mother ,(Abdoul) went over the time limit which is 5 mins and insisted that its not time yet. Pt remains with no sign of Resp distress noted.
[2019-11-26] MEDS: ACETAMINOPHEN 650 MG/20 ML UDC- SA PATIENTS-PAIN ONLY GT PRN (16:30)
[2019-11-26 20:07] VITALS: BP 122/59
[2019-11-26] MEDS: FERROUS SULFATE 330 MG/7.5 ML UDC- FOR SA ONLY GT SCH (20:18)
[2019-11-26] MEDS: MELATONIN 5MG TABLET GT SCH (20:19)
[2019-11-26] MEDS: MULTIVIT, IRON, MIN NO. 8, FA TABLET GT SCH (20:19)
[2019-11-26] MEDS: MINERAL OIL/PETROLATUM,WHITE 57 GM TUBE TP SCH (20:20)
[2019-11-26] MEDS: ADAPALENE 0.3% TP SCH (20:21)
[2019-11-26] MEDS: RIVAROXABAN 10 MG TABLET GT SCH (21:59)
[2019-11-26 22:09] VITALS: BP 98/52
[2019-11-27] MEDS: hydrALAZINE HCL 10 MG TABLET GT SCH ×3 (06:00→22:00)
[2019-11-27] MEDS: FAMOTIDINE 20 MG TABLET GT SCH (06:17)
[2019-11-27 07:20] VITALS: BP 127/41
[2019-11-27] MEDS: HYDROGEN PEROXIDE 3% 118 ML BOTTLE TOP SCH ×2 (07:24→19:27)
[2019-11-27] MEDS: LACOSAMIDE 100 MG/10 ML UDC GT SCH ×2 (08:37→20:18)
[2019-11-27] MEDS: ACIDOPHILUS/BULGARICUS CHEW TAB GT SCH ×2 (08:37→20:24)
[2019-11-27] MEDS: levETIRAcetam 500 MG/5 ML LIQUID UDC GT SCH ×2 (08:37→20:18)
[2019-11-27] MEDS: NUTRISOURCE FIBER 4 GM PACKET GT SCH (08:38)
[2019-11-27] MEDS: METOPROLOL TARTRATE 50 MG TABLET GT SCH ×2 (08:38→20:24)
[2019-11-27] MEDS: AMLODIPINE 10 MG TABLET GT SCH (08:38)
[2019-11-27] MEDS: NYSTATIN CREAM 30 GM TUBE TP SCH ×2 (08:39→20:29)
[2019-11-27] MEDS: COD LIVER OIL/ZINC OXIDE OINT 113 GM TUBE TP SCH ×2 (08:39→20:25)
[2019-11-27] MEDS: TRIAMCINOLONE ACET 0.1% CREAM 15 GM TUBE TP SCH ×2 (08:39→20:27)
[2019-11-27] MEDS: CLINDAMYCIN TP SCH (08:39)
--- NOTE | 2019-11-27 15:40 | NUR ---
Provided video chat to pt. and her mother, kept pt clean and comfortable and all needs attended and anticipated.
[2019-11-27 20:00] VITALS: BP 102/49
[2019-11-27] MEDS: RIVAROXABAN 10 MG TABLET GT SCH (20:20)
[2019-11-27] MEDS: FERROUS SULFATE 330 MG/7.5 ML UDC- FOR SA ONLY GT SCH (20:24)
[2019-11-27] MEDS: MELATONIN 5MG TABLET GT SCH (20:25)
[2019-11-27] MEDS: MULTIVIT, IRON, MIN NO. 8, FA TABLET GT SCH (20:25)
[2019-11-27] MEDS: MINERAL OIL/PETROLATUM,WHITE 57 GM TUBE TP SCH (20:26)
[2019-11-27] MEDS: ADAPALENE 0.3% TP SCH (20:29)
[2019-11-28] MEDS: hydrALAZINE HCL 10 MG TABLET GT SCH ×3 (05:42→22:00)
[2019-11-28] MEDS: FAMOTIDINE 20 MG TABLET GT SCH (05:42)
[2019-11-28] MEDS: ACETAMINOPHEN 650 MG/20 ML UDC- SA PATIENTS-PAIN ONLY GT PRN (05:43)
[2019-11-28 07:37] VITALS: BP 103/45
[2019-11-28] MEDS: HYDROGEN PEROXIDE 3% 118 ML BOTTLE TOP SCH ×2 (08:22→21:39)
[2019-11-28] MEDS: LACOSAMIDE 100 MG/10 ML UDC GT SCH ×2 (08:49→20:31)
[2019-11-28] MEDS: levETIRAcetam 500 MG/5 ML LIQUID UDC GT SCH ×2 (08:49→20:31)
[2019-11-28] MEDS: AMLODIPINE 10 MG TABLET GT SCH (09:00)
[2019-11-28] MEDS: METOPROLOL TARTRATE 50 MG TABLET GT SCH ×2 (09:00→20:31)
[2019-11-28] MEDS: NYSTATIN CREAM 30 GM TUBE TP SCH ×2 (09:32→20:32)
[2019-11-28] MEDS: COD LIVER OIL/ZINC OXIDE OINT 113 GM TUBE TP SCH ×2 (09:32→20:31)
[2019-11-28] MEDS: NUTRISOURCE FIBER 4 GM PACKET GT SCH (09:32)
[2019-11-28] MEDS: TRIAMCINOLONE ACET 0.1% CREAM 15 GM TUBE TP SCH ×2 (09:32→20:32)
[2019-11-28] MEDS: CLINDAMYCIN TP SCH (09:33)
[2019-11-28] MEDS: ACIDOPHILUS/BULGARICUS CHEW TAB GT SCH ×2 (09:33→20:31)
[2019-11-28] MEDS: JEVITY 1.2 1000 ML LIQUID GT PRN (10:44)
--- NOTE | 2019-11-28 15:30 | NUR ---
Zoom meeting for Pt and mother Abdoul.
[2019-11-28 20:00] VITALS: BP 112/69
[2019-11-28] MEDS: FERROUS SULFATE 330 MG/7.5 ML UDC- FOR SA ONLY GT SCH (20:31)
[2019-11-28] MEDS: MELATONIN 5MG TABLET GT SCH (20:31)
[2019-11-28] MEDS: MULTIVIT, IRON, MIN NO. 8, FA TABLET GT SCH (20:31)
[2019-11-28] MEDS: MINERAL OIL/PETROLATUM,WHITE 57 GM TUBE TP SCH (20:31)
[2019-11-28] MEDS: ADAPALENE 0.3% TP SCH (20:32)
[2019-11-28] MEDS: RIVAROXABAN 10 MG TABLET GT SCH (20:32)
[2019-11-29] MEDS: hydrALAZINE HCL 10 MG TABLET GT SCH ×3 (05:38→22:00)
[2019-11-29] MEDS: FAMOTIDINE 20 MG TABLET GT SCH (05:38)
[2019-11-29 07:25] LABS: BASOPHILS # (AUTO) 0.1 K/uL (0.0-8.0); BASOPHILS % (AUTO) 0.9 % (0.0-2.0); EOSINOPHILS # (AUTO) 0.3 K/uL (0.0-0.7); EOSINOPHILS % (AUTO) 3.2 % (0.0-7.0); HEMATOCRIT 37.8 % (31.2-41.9); HEMOGLOBIN 12.7 g/dL (10.9-14.3); LYMPHOCYTES # (AUTO) 1.8 K/uL (20.0-40.0); LYMPHOCYTES % (AUTO) 19.6 % (20.5-51.5); MEAN CORPUSCULAR HEMOGLOBIN 30.8 uug (24.7-32.8); MEAN CORPUSCULAR HGB CONC 34 g/dL (32.3-35.6); MEAN CORPUSCULAR VOLUME 91.5 fL (75.5-95.3); MONOCYTES # (AUTO) 0.7 K/uL (2.0-10.0); MONOCYTES % (AUTO) 7.2 % (0.0-11.0); NEUTROPHILS # (AUTO) 6.2 K/uL (1.8-8.9); NEUTROPHILS % (AUTO) 69.1 % (38.5-71.5); PLATELET COUNT (AUTO) 315 K/uL (179-408); RED BLOOD CELL COUNT(AUTO) 4.14 MIL/uL (3.63-4.92)
[2019-11-29 07:48] VITALS: BP 111/66
[2019-11-29 07:48] LABS: CREATININE 0.7 mg/dL (0.6-1.3); MAGNESIUM 2.1 mg/dL (1.8-2.4); PHOSPHOROUS 4.3 mg/dL (2.5-4.9); POTASSIUM 4.7 mmol/L (3.5-5.1)
[2019-11-29] MEDS: HYDROGEN PEROXIDE 3% 118 ML BOTTLE TOP SCH ×2 (08:06→21:15)
[2019-11-29] MEDS: LACOSAMIDE 100 MG/10 ML UDC GT SCH ×2 (08:53→20:25)
[2019-11-29] MEDS: levETIRAcetam 500 MG/5 ML LIQUID UDC GT SCH ×2 (08:53→20:25)
[2019-11-29] MEDS: NUTRISOURCE FIBER 4 GM PACKET GT SCH (08:54)
[2019-11-29] MEDS: AMLODIPINE 10 MG TABLET GT SCH (08:54)
[2019-11-29] MEDS: ACIDOPHILUS/BULGARICUS CHEW TAB GT SCH ×2 (08:54→20:25)
[2019-11-29] MEDS: METOPROLOL TARTRATE 50 MG TABLET GT SCH ×2 (08:54→20:29)
[2019-11-29] MEDS: COD LIVER OIL/ZINC OXIDE OINT 113 GM TUBE TP SCH ×2 (08:55→20:31)
[2019-11-29] MEDS: NYSTATIN CREAM 30 GM TUBE TP SCH ×2 (08:55→20:31)
[2019-11-29] MEDS: TRIAMCINOLONE ACET 0.1% CREAM 15 GM TUBE TP SCH ×2 (08:55→20:31)
[2019-11-29] MEDS: CLINDAMYCIN TP SCH (08:55)
[2019-11-29] MEDS: JEVITY 1.2 1000 ML LIQUID GT PRN (09:43)
--- NOTE | 2019-11-29 13:00 | NUR ---
SEEN AND EXAMINED BY DR. GERARDO ALFARO AND WITH NNO.
--- NOTE | 2019-11-29 15:45 | NUR ---
Zoom meeting provided for patient and mom Abdoul.
[2019-11-29] MEDS: FERROUS SULFATE 330 MG/7.5 ML UDC- FOR SA ONLY GT SCH (20:25)
[2019-11-29] MEDS: MULTIVIT, IRON, MIN NO. 8, FA TABLET GT SCH (20:29)
[2019-11-29] MEDS: MELATONIN 5MG TABLET GT SCH (20:29)
[2019-11-29] MEDS: RIVAROXABAN 10 MG TABLET GT SCH (20:30)
[2019-11-29] MEDS: ADAPALENE 0.3% TP SCH (20:31)
[2019-11-29] MEDS: MINERAL OIL/PETROLATUM,WHITE 57 GM TUBE TP SCH (20:31)
[2019-11-29 23:03] VITALS: BP 127/80
[2019-11-30] MEDS: FAMOTIDINE 20 MG TABLET GT SCH (05:21)
[2019-11-30] MEDS: hydrALAZINE HCL 10 MG TABLET GT SCH ×3 (05:21→22:00)
[2019-11-30] MEDS: HYDROGEN PEROXIDE 3% 118 ML BOTTLE TOP SCH ×2 (07:14→21:34)
[2019-11-30 08:00] VITALS: BP 119/63
[2019-11-30] MEDS: ACIDOPHILUS/BULGARICUS CHEW TAB GT SCH ×2 (08:02→20:35)
[2019-11-30] MEDS: LACOSAMIDE 100 MG/10 ML UDC GT SCH ×2 (08:02→20:34)
[2019-11-30] MEDS: levETIRAcetam 500 MG/5 ML LIQUID UDC GT SCH ×2 (08:02→20:34)
[2019-11-30] MEDS: AMLODIPINE 10 MG TABLET GT SCH (08:03)
[2019-11-30] MEDS: NUTRISOURCE FIBER 4 GM PACKET GT SCH (08:03)
[2019-11-30] MEDS: METOPROLOL TARTRATE 50 MG TABLET GT SCH ×2 (08:03→20:36)
[2019-11-30] MEDS: NYSTATIN CREAM 30 GM TUBE TP SCH ×2 (08:04→20:37)
[2019-11-30] MEDS: CLINDAMYCIN TP SCH (08:04)
[2019-11-30] MEDS: COD LIVER OIL/ZINC OXIDE OINT 113 GM TUBE TP SCH ×2 (08:04→20:37)
[2019-11-30] MEDS: TRIAMCINOLONE ACET 0.1% CREAM 15 GM TUBE TP SCH ×2 (08:05→20:37)
[2019-11-30] MEDS: JEVITY 1.2 1000 ML LIQUID GT PRN (15:09)
--- NOTE | 2019-11-30 18:19 | NUR ---
Pt. v/s wnl. Stable at this time. Video chat provided with the family.
[2019-11-30] MEDS: FERROUS SULFATE 330 MG/7.5 ML UDC- FOR SA ONLY GT SCH (20:34)
[2019-11-30] MEDS: MULTIVIT, IRON, MIN NO. 8, FA TABLET GT SCH (20:37)
[2019-11-30] MEDS: MINERAL OIL/PETROLATUM,WHITE 57 GM TUBE TP SCH (20:37)
[2019-11-30] MEDS: MELATONIN 5MG TABLET GT SCH (20:37)
[2019-11-30] MEDS: ADAPALENE 0.3% TP SCH (20:38)
[2019-11-30] MEDS: RIVAROXABAN 10 MG TABLET GT SCH (21:00)
[2019-11-30 22:00] VITALS: BP 107/67
[2019-11-30 23:34] VITALS: BP 119/74
[2019-12-01] MEDS: hydrALAZINE HCL 10 MG TABLET GT SCH ×3 (06:00→22:00)
[2019-12-01] MEDS: FAMOTIDINE 20 MG TABLET GT SCH (06:28)
[2019-12-01 07:33] VITALS: BP 102/62
[2019-12-01] MEDS: METOPROLOL TARTRATE 50 MG TABLET GT SCH ×2 (08:59→21:41)
[2019-12-01] MEDS: ACIDOPHILUS/BULGARICUS CHEW TAB GT SCH ×2 (08:59→21:16)
[2019-12-01] MEDS: LACOSAMIDE 100 MG/10 ML UDC GT SCH ×2 (08:59→20:27)
[2019-12-01] MEDS: levETIRAcetam 500 MG/5 ML LIQUID UDC GT SCH ×2 (08:59→20:27)
[2019-12-01] MEDS: AMLODIPINE 10 MG TABLET GT SCH (09:00)
[2019-12-01] MEDS: NUTRISOURCE FIBER 4 GM PACKET GT SCH (09:00)
[2019-12-01] MEDS: TRIAMCINOLONE ACET 0.1% CREAM 15 GM TUBE TP SCH ×2 (09:01→21:16)
[2019-12-01] MEDS: NYSTATIN CREAM 30 GM TUBE TP SCH ×2 (09:01→21:16)
[2019-12-01] MEDS: COD LIVER OIL/ZINC OXIDE OINT 113 GM TUBE TP SCH ×2 (09:01→21:16)
[2019-12-01] MEDS: CLINDAMYCIN TP SCH (09:01)
[2019-12-01] MEDS: HYDROGEN PEROXIDE 3% 118 ML BOTTLE TOP SCH ×2 (09:10→21:36)
[2019-12-01] MEDS: JEVITY 1.2 1000 ML LIQUID GT PRN (12:23)
--- NOTE | 2019-12-01 17:55 | NUR ---
Spoke with the family( Abdoul) about the Baclofen. According to the mom (abdoul) she is giving consent to having Baclofen for her daughter. However, she requested for close monitoring regarding its side effects. Video chat provided with the family.
--- NOTE | 2019-12-01 18:10 | NUR ---
PT.WAS SEEN AND EXAMINED BY NEUROLOGIST DR. ESTRADA AND AFTER HE SPOKE TO PT'S MOTHER MILI AND SHE WAS IN AGREEMENT NEW ORDER WAS CARRIED OUT .
[2019-12-01] MEDS: BACLOFEN 10 MG TABLET GT SCH (20:00)
[2019-12-01 20:46] VITALS: BP 157/97
[2019-12-01] MEDS: RIVAROXABAN 10 MG TABLET GT SCH (21:00)
[2019-12-01] MEDS: FERROUS SULFATE 330 MG/7.5 ML UDC- FOR SA ONLY GT SCH (21:15)
[2019-12-01] MEDS: MELATONIN 5MG TABLET GT SCH (21:16)
[2019-12-01] MEDS: ADAPALENE 0.3% TP SCH (21:16)
[2019-12-01] MEDS: MULTIVIT, IRON, MIN NO. 8, FA TABLET GT SCH (21:16)
[2019-12-01] MEDS: MINERAL OIL/PETROLATUM,WHITE 57 GM TUBE TP SCH (21:16)
[2019-12-01 22:00] VITALS: BP 97/58
[2019-12-02] MEDS: hydrALAZINE HCL 10 MG TABLET GT SCH ×3 (06:00→22:22)
[2019-12-02] MEDS: FAMOTIDINE 20 MG TABLET GT SCH (06:14)
[2019-12-02 06:26] VITALS: BP 97/56
[2019-12-02 08:00] VITALS: BP 98/52
[2019-12-02] MEDS: levETIRAcetam 500 MG/5 ML LIQUID UDC GT SCH ×2 (08:00→20:24)
[2019-12-02] MEDS: LACOSAMIDE 100 MG/10 ML UDC GT SCH ×2 (08:00→20:24)
[2019-12-02] MEDS: METOPROLOL TARTRATE 50 MG TABLET GT SCH ×2 (09:00→20:33)
[2019-12-02] MEDS: AMLODIPINE 10 MG TABLET GT SCH (09:00)
[2019-12-02] MEDS: ACIDOPHILUS/BULGARICUS CHEW TAB GT SCH ×2 (09:15→20:24)
[2019-12-02] MEDS: TRIAMCINOLONE ACET 0.1% CREAM 15 GM TUBE TP SCH ×2 (09:16→20:31)
[2019-12-02] MEDS: NUTRISOURCE FIBER 4 GM PACKET GT SCH (09:16)
[2019-12-02] MEDS: HYDROGEN PEROXIDE 3% 118 ML BOTTLE TOP SCH ×2 (09:16→21:08)
[2019-12-02] MEDS: CLINDAMYCIN TP SCH (09:16)
[2019-12-02] MEDS: NYSTATIN CREAM 30 GM TUBE TP SCH ×2 (09:16→20:31)
[2019-12-02] MEDS: COD LIVER OIL/ZINC OXIDE OINT 113 GM TUBE TP SCH ×2 (09:16→20:31)
[2019-12-02] MEDS: BACLOFEN 10 MG TABLET GT SCH ×2 (10:44→20:24)
--- NOTE | 2019-12-02 18:15 | NUR ---
Routine medications given. No respiratory distress at this time. Video chat provided with the family.
[2019-12-02 20:05] VITALS: BP 148/73
[2019-12-02] MEDS: FERROUS SULFATE 330 MG/7.5 ML UDC- FOR SA ONLY GT SCH (20:24)
[2019-12-02] MEDS: MELATONIN 5MG TABLET GT SCH (20:29)
[2019-12-02] MEDS: MULTIVIT, IRON, MIN NO. 8, FA TABLET GT SCH (20:29)
[2019-12-02] MEDS: RIVAROXABAN 10 MG TABLET GT SCH (20:30)
[2019-12-02] MEDS: ADAPALENE 0.3% TP SCH (20:31)
[2019-12-02] MEDS: MINERAL OIL/PETROLATUM,WHITE 57 GM TUBE TP SCH (20:31)
[2019-12-02 22:00] VITALS: BP 107/69
[2019-12-03] MEDS: hydrALAZINE HCL 10 MG TABLET GT SCH ×3 (06:00→22:00)
[2019-12-03 06:10] VITALS: BP 99/61
[2019-12-03] MEDS: FAMOTIDINE 20 MG TABLET GT SCH (06:10)
[2019-12-03 08:00] VITALS: BP 130/60
[2019-12-03] MEDS: NUTRISOURCE FIBER 4 GM PACKET GT SCH (08:44)
[2019-12-03] MEDS: METOPROLOL TARTRATE 50 MG TABLET GT SCH ×2 (08:44→20:27)
[2019-12-03] MEDS: ACIDOPHILUS/BULGARICUS CHEW TAB GT SCH ×2 (08:44→20:27)
[2019-12-03] MEDS: levETIRAcetam 500 MG/5 ML LIQUID UDC GT SCH ×2 (08:44→20:27)
[2019-12-03] MEDS: TRIAMCINOLONE ACET 0.1% CREAM 15 GM TUBE TP SCH ×2 (08:44→20:28)
[2019-12-03] MEDS: LACOSAMIDE 100 MG/10 ML UDC GT SCH ×2 (08:44→20:27)
[2019-12-03] MEDS: AMLODIPINE 10 MG TABLET GT SCH (08:44)
[2019-12-03] MEDS: COD LIVER OIL/ZINC OXIDE OINT 113 GM TUBE TP SCH ×2 (08:44→20:28)
[2019-12-03] MEDS: CLINDAMYCIN TP SCH (08:45)
[2019-12-03] MEDS: NYSTATIN CREAM 30 GM TUBE TP SCH ×2 (08:45→20:29)
[2019-12-03] MEDS: HYDROGEN PEROXIDE 3% 118 ML BOTTLE TOP SCH ×2 (09:24→21:55)
[2019-12-03] MEDS: BACLOFEN 10 MG TABLET GT SCH ×2 (10:28→20:27)
--- NOTE | 2019-12-03 16:00 | NUR ---
Provided video chat to pt. and her mother with no problem, went over time limit of 5 minutes mother of the pt adamant that its not accurate. Pt remains comfortable all needs attended and anticipated.
[2019-12-03 20:09] VITALS: BP 134/63
[2019-12-03] MEDS: MELATONIN 5MG TABLET GT SCH (20:27)
[2019-12-03] MEDS: FERROUS SULFATE 330 MG/7.5 ML UDC- FOR SA ONLY GT SCH (20:27)
[2019-12-03] MEDS: RIVAROXABAN 10 MG TABLET GT SCH (20:28)
[2019-12-03] MEDS: MULTIVIT, IRON, MIN NO. 8, FA TABLET GT SCH (20:28)
[2019-12-03] MEDS: MINERAL OIL/PETROLATUM,WHITE 57 GM TUBE TP SCH (20:28)
[2019-12-03] MEDS: ADAPALENE 0.3% TP SCH (20:29)
[2019-12-03 22:00] VITALS: BP 89/42
[2019-12-04 05:30] VITALS: BP 100/55
[2019-12-04] MEDS: hydrALAZINE HCL 10 MG TABLET GT SCH ×3 (06:10→22:00)
[2019-12-04] MEDS: FAMOTIDINE 20 MG TABLET GT SCH (06:10)
[2019-12-04 08:00] VITALS: BP 100/53
[2019-12-04] MEDS: levETIRAcetam 500 MG/5 ML LIQUID UDC GT SCH ×2 (08:42→20:32)
[2019-12-04] MEDS: ACIDOPHILUS/BULGARICUS CHEW TAB GT SCH ×2 (08:42→20:32)
[2019-12-04] MEDS: METOPROLOL TARTRATE 50 MG TABLET GT SCH ×2 (08:42→20:37)
[2019-12-04] MEDS: LACOSAMIDE 100 MG/10 ML UDC GT SCH ×2 (08:42→20:32)
[2019-12-04] MEDS: CLINDAMYCIN TP SCH (08:44)
[2019-12-04] MEDS: COD LIVER OIL/ZINC OXIDE OINT 113 GM TUBE TP SCH ×2 (08:44→20:38)
[2019-12-04] MEDS: TRIAMCINOLONE ACET 0.1% CREAM 15 GM TUBE TP SCH ×2 (08:44→20:38)
[2019-12-04] MEDS: AMLODIPINE 10 MG TABLET GT SCH (08:44)
[2019-12-04] MEDS: NYSTATIN CREAM 30 GM TUBE TP SCH ×2 (08:44→20:38)
[2019-12-04] MEDS: NUTRISOURCE FIBER 4 GM PACKET GT SCH (08:44)
[2019-12-04] MEDS: HYDROGEN PEROXIDE 3% 118 ML BOTTLE TOP SCH ×2 (09:44→22:00)
[2019-12-04] MEDS: BACLOFEN 10 MG TABLET GT SCH ×2 (10:49→20:32)
--- NOTE | 2019-12-04 18:06 | NUR ---
Informed family member Abdoul by DSD and Infection Combine Inspector, of COVID 19 possible exposure and testing plan with good understanding.
[2019-12-04 20:00] VITALS: BP 110/58
[2019-12-04] MEDS: FERROUS SULFATE 330 MG/7.5 ML UDC- FOR SA ONLY GT SCH (20:32)
[2019-12-04] MEDS: MELATONIN 5MG TABLET GT SCH (20:37)
[2019-12-04] MEDS: MINERAL OIL/PETROLATUM,WHITE 57 GM TUBE TP SCH (20:38)
[2019-12-04] MEDS: MULTIVIT, IRON, MIN NO. 8, FA TABLET GT SCH (20:38)
[2019-12-04] MEDS: RIVAROXABAN 10 MG TABLET GT SCH (20:38)
[2019-12-04] MEDS: ADAPALENE 0.3% TP SCH (20:39)
[2019-12-05] MEDS: JEVITY 1.2 1000 ML LIQUID GT PRN ×2 (00:36→17:22)
--- NOTE | 2019-12-05 02:00 | NUR ---
New order for COVID-19 test per [facility] COVID-19 requirement.
[2019-12-05] MEDS: FAMOTIDINE 20 MG TABLET GT SCH (05:48)
[2019-12-05] MEDS: hydrALAZINE HCL 10 MG TABLET GT SCH ×3 (05:48→21:19)
[2019-12-05] MEDS: HYDROGEN PEROXIDE 3% 118 ML BOTTLE TOP SCH ×2 (07:19→21:32)
[2019-12-05 08:00] VITALS: BP 115/53
[2019-12-05] MEDS: levETIRAcetam 500 MG/5 ML LIQUID UDC GT SCH ×2 (08:36→20:32)
[2019-12-05] MEDS: ACIDOPHILUS/BULGARICUS CHEW TAB GT SCH ×2 (08:36→20:32)
[2019-12-05] MEDS: LACOSAMIDE 100 MG/10 ML UDC GT SCH ×2 (08:36→20:32)
[2019-12-05] MEDS: COD LIVER OIL/ZINC OXIDE OINT 113 GM TUBE TP SCH ×2 (08:37→20:32)
[2019-12-05] MEDS: NUTRISOURCE FIBER 4 GM PACKET GT SCH (08:37)
[2019-12-05] MEDS: AMLODIPINE 10 MG TABLET GT SCH (08:37)
[2019-12-05] MEDS: METOPROLOL TARTRATE 50 MG TABLET GT SCH ×2 (08:37→20:32)
[2019-12-05] MEDS: NYSTATIN CREAM 30 GM TUBE TP SCH ×2 (08:37→20:32)
[2019-12-05] MEDS: TRIAMCINOLONE ACET 0.1% CREAM 15 GM TUBE TP SCH ×2 (08:37→20:32)
[2019-12-05] MEDS: CLINDAMYCIN TP SCH (08:37)
[2019-12-05] MEDS: BACLOFEN 10 MG TABLET GT SCH ×2 (10:42→20:32)
--- NOTE | 2019-12-05 17:45 | NUR ---
ZOOM MEETING PROVIDED TO PATIENT'S MOTHER. PT WAS CALM, NO SIGNS OF DISTRESS, AND COMFORTABLE IN BED.
[2019-12-05 20:30] VITALS: BP 127/66
[2019-12-05] MEDS: FERROUS SULFATE 330 MG/7.5 ML UDC- FOR SA ONLY GT SCH (20:32)
[2019-12-05] MEDS: MINERAL OIL/PETROLATUM,WHITE 57 GM TUBE TP SCH (20:32)
[2019-12-05] MEDS: MELATONIN 5MG TABLET GT SCH (20:32)
[2019-12-05] MEDS: MULTIVIT, IRON, MIN NO. 8, FA TABLET GT SCH (20:32)
[2019-12-05] MEDS: ADAPALENE 0.3% TP SCH (20:33)
[2019-12-05] MEDS: RIVAROXABAN 10 MG TABLET GT SCH (20:33)
[2019-12-06] MEDS: hydrALAZINE HCL 10 MG TABLET GT SCH ×3 (05:27→21:25)
[2019-12-06] MEDS: FAMOTIDINE 20 MG TABLET GT SCH (05:27)
[2019-12-06 07:49] VITALS: BP 116/61
[2019-12-06] MEDS: LACOSAMIDE 100 MG/10 ML UDC GT SCH ×2 (08:00→20:44)
[2019-12-06] MEDS: levETIRAcetam 500 MG/5 ML LIQUID UDC GT SCH ×2 (08:00→20:44)
[2019-12-06] MEDS: HYDROGEN PEROXIDE 3% 118 ML BOTTLE TOP SCH ×2 (09:00→21:44)
[2019-12-06] MEDS: ACIDOPHILUS/BULGARICUS CHEW TAB GT SCH ×2 (09:25→20:44)
[2019-12-06] MEDS: METOPROLOL TARTRATE 50 MG TABLET GT SCH ×2 (09:25→20:44)
[2019-12-06] MEDS: AMLODIPINE 10 MG TABLET GT SCH (09:26)
[2019-12-06] MEDS: NUTRISOURCE FIBER 4 GM PACKET GT SCH (09:26)
[2019-12-06] MEDS: COD LIVER OIL/ZINC OXIDE OINT 113 GM TUBE TP SCH ×2 (09:27→20:44)
[2019-12-06] MEDS: NYSTATIN CREAM 30 GM TUBE TP SCH ×2 (09:27→20:44)
[2019-12-06] MEDS: CLINDAMYCIN TP SCH (09:27)
[2019-12-06] MEDS: TRIAMCINOLONE ACET 0.1% CREAM 15 GM TUBE TP SCH ×2 (09:27→20:44)
[2019-12-06] MEDS: JEVITY 1.2 1000 ML LIQUID GT PRN ×2 (09:50→21:55)
[2019-12-06] MEDS: BACLOFEN 10 MG TABLET GT SCH ×2 (10:00→20:44)
[2019-12-06 20:44] VITALS: BP 123/56
[2019-12-06] MEDS: MULTIVIT, IRON, MIN NO. 8, FA TABLET GT SCH (20:44)
[2019-12-06] MEDS: FERROUS SULFATE 330 MG/7.5 ML UDC- FOR SA ONLY GT SCH (20:44)
[2019-12-06] MEDS: MINERAL OIL/PETROLATUM,WHITE 57 GM TUBE TP SCH (20:44)
[2019-12-06] MEDS: MELATONIN 5MG TABLET GT SCH (20:44)
[2019-12-06] MEDS: ADAPALENE 0.3% TP SCH (20:44)
[2019-12-06] MEDS: RIVAROXABAN 10 MG TABLET GT SCH (20:45)
[2019-12-07] MEDS: FAMOTIDINE 20 MG TABLET GT SCH (05:31)
[2019-12-07] MEDS: hydrALAZINE HCL 10 MG TABLET GT SCH ×3 (05:31→21:23)
[2019-12-07 06:51] LABS: BASOPHILS % (AUTO) 0.5 % (0.0-2.0); EOSINOPHILS # (AUTO) 0.6 K/uL (0.0-0.7); EOSINOPHILS % (AUTO) 7.4 % (0.0-7.0); HEMATOCRIT 38.2 % (31.2-41.9); HEMOGLOBIN 12.9 g/dL (10.9-14.3); LYMPHOCYTES % (AUTO) 24.2 % (20.5-51.5); MEAN CORPUSCULAR HGB CONC 34 g/dL (32.3-35.6); MEAN CORPUSCULAR VOLUME 91.3 fL (75.5-95.3); MONOCYTES # (AUTO) 0.7 K/uL (2.0-10.0); MONOCYTES % (AUTO) 8.6 % (0.0-11.0); NEUTROPHILS # (AUTO) 4.8 K/uL (1.8-8.9); NEUTROPHILS % (AUTO) 59.3 % (38.5-71.5); PLATELET COUNT (AUTO) 328 K/uL (179-408); RED BLOOD CELL COUNT(AUTO) 4.18 MIL/uL (3.63-4.92); WHITE BLOOD COUNT (AUTO) 8.2 K/uL (3.8-11.8)
[2019-12-07 07:07] LABS: CREATININE 0.7 mg/dL (0.6-1.3); MAGNESIUM 2.2 mg/dL (1.8-2.4); PHOSPHOROUS 5.1 mg/dL (2.5-4.9); POTASSIUM 4.2 mmol/L (3.5-5.1)
[2019-12-07 07:34] VITALS: BP 95/50
[2019-12-07] MEDS: levETIRAcetam 500 MG/5 ML LIQUID UDC GT SCH ×2 (08:46→20:41)
[2019-12-07] MEDS: METOPROLOL TARTRATE 50 MG TABLET GT SCH ×2 (08:46→20:41)
[2019-12-07] MEDS: ACIDOPHILUS/BULGARICUS CHEW TAB GT SCH ×2 (08:46→20:41)
[2019-12-07] MEDS: LACOSAMIDE 100 MG/10 ML UDC GT SCH ×2 (08:46→20:41)
[2019-12-07] MEDS: COD LIVER OIL/ZINC OXIDE OINT 113 GM TUBE TP SCH ×2 (08:47→20:41)
[2019-12-07] MEDS: NYSTATIN CREAM 30 GM TUBE TP SCH ×2 (08:47→20:41)
[2019-12-07] MEDS: TRIAMCINOLONE ACET 0.1% CREAM 15 GM TUBE TP SCH ×2 (08:47→20:41)
[2019-12-07] MEDS: NUTRISOURCE FIBER 4 GM PACKET GT SCH (08:47)
[2019-12-07] MEDS: AMLODIPINE 10 MG TABLET GT SCH (08:47)
[2019-12-07] MEDS: CLINDAMYCIN TP SCH (08:48)
[2019-12-07] MEDS: HYDROGEN PEROXIDE 3% 118 ML BOTTLE TOP SCH ×2 (10:20→19:38)
[2019-12-07] MEDS: BACLOFEN 10 MG TABLET GT SCH ×2 (10:47→20:41)
[2019-12-07] MEDS: JEVITY 1.2 1000 ML LIQUID GT PRN (13:00)
[2019-12-07 20:36] VITALS: BP 98/51
[2019-12-07] MEDS: RIVAROXABAN 10 MG TABLET GT SCH (20:40)
[2019-12-07] MEDS: ADAPALENE 0.3% TP SCH (20:41)
[2019-12-07] MEDS: MELATONIN 5MG TABLET GT SCH (20:41)
[2019-12-07] MEDS: MINERAL OIL/PETROLATUM,WHITE 57 GM TUBE TP SCH (20:41)
[2019-12-07] MEDS: FERROUS SULFATE 330 MG/7.5 ML UDC- FOR SA ONLY GT SCH (20:41)
[2019-12-07] MEDS: MULTIVIT, IRON, MIN NO. 8, FA TABLET GT SCH (20:41)
[2019-12-08] MEDS: JEVITY 1.2 1000 ML LIQUID GT PRN ×2 (02:43→22:40)
[2019-12-08] MEDS: FAMOTIDINE 20 MG TABLET GT SCH (05:06)
[2019-12-08] MEDS: hydrALAZINE HCL 10 MG TABLET GT SCH ×4 (05:06→22:00)
[2019-12-08 07:43] VITALS: BP 108/54
[2019-12-08 08:00] VITALS: BP 108/54
[2019-12-08] MEDS: ACIDOPHILUS/BULGARICUS CHEW TAB GT SCH ×2 (08:36→21:15)
[2019-12-08] MEDS: NUTRISOURCE FIBER 4 GM PACKET GT SCH (08:36)
[2019-12-08] MEDS: LACOSAMIDE 100 MG/10 ML UDC GT SCH ×2 (08:36→20:00)
[2019-12-08] MEDS: AMLODIPINE 10 MG TABLET GT SCH (08:36)
[2019-12-08] MEDS: METOPROLOL TARTRATE 50 MG TABLET GT SCH ×2 (08:36→21:16)
[2019-12-08] MEDS: levETIRAcetam 500 MG/5 ML LIQUID UDC GT SCH ×2 (08:36→20:00)
[2019-12-08] MEDS: NYSTATIN CREAM 30 GM TUBE TP SCH ×2 (08:37→21:17)
[2019-12-08] MEDS: CLINDAMYCIN TP SCH (08:37)
[2019-12-08] MEDS: COD LIVER OIL/ZINC OXIDE OINT 113 GM TUBE TP SCH ×2 (08:37→21:17)
[2019-12-08] MEDS: TRIAMCINOLONE ACET 0.1% CREAM 15 GM TUBE TP SCH ×2 (08:37→21:17)
[2019-12-08] MEDS: HYDROGEN PEROXIDE 3% 118 ML BOTTLE TOP SCH ×2 (09:34→21:17)
[2019-12-08] MEDS: BACLOFEN 10 MG TABLET GT SCH ×2 (10:28→20:00)
[2019-12-08 20:43] VITALS: BP 126/89
[2019-12-08] MEDS: FERROUS SULFATE 330 MG/7.5 ML UDC- FOR SA ONLY GT SCH (21:15)
[2019-12-08] MEDS: MELATONIN 5MG TABLET GT SCH (21:16)
[2019-12-08] MEDS: MULTIVIT, IRON, MIN NO. 8, FA TABLET GT SCH (21:16)
[2019-12-08] MEDS: RIVAROXABAN 10 MG TABLET GT SCH (21:17)
[2019-12-08] MEDS: MINERAL OIL/PETROLATUM,WHITE 57 GM TUBE TP SCH (21:17)
[2019-12-08] MEDS: ADAPALENE 0.3% TP SCH (21:18)
[2019-12-08 21:30] VITALS: BP 105/72
--- NOTE | 2019-12-09 03:45 | NUR ---
Patients mother called to get update. Spoke with her over the phone and she got very upset that that I put her on hold to pull up daughter chart to get her the vitals and medications that were administered throughout the night. Mother requested to speak with Jefe denis to further discuss patients status. Mother hung up the phone and stated that I hung up the phone on her "very unprofessional" Charge nurse was present and she ended the call on her end. Tried to calm mother down and apologize for any miscommunication that came up. Mother spoke with Jefe and got all her questions answered.
[2019-12-09] MEDS: hydrALAZINE HCL 10 MG TABLET GT SCH ×3 (06:00→22:00)
[2019-12-09] MEDS: FAMOTIDINE 20 MG TABLET GT SCH (06:56)
[2019-12-09] MEDS: HYDROGEN PEROXIDE 3% 118 ML BOTTLE TOP SCH ×2 (07:27→21:05)
[2019-12-09 08:00] VITALS: BP 103/55
[2019-12-09] MEDS: levETIRAcetam 500 MG/5 ML LIQUID UDC GT SCH ×2 (08:00→20:35)
[2019-12-09] MEDS: LACOSAMIDE 100 MG/10 ML UDC GT SCH ×2 (08:00→20:36)
[2019-12-09] MEDS: AMLODIPINE 10 MG TABLET GT SCH (09:00)
[2019-12-09] MEDS: METOPROLOL TARTRATE 50 MG TABLET GT SCH ×2 (09:00→20:37)
[2019-12-09] MEDS: ACIDOPHILUS/BULGARICUS CHEW TAB GT SCH ×2 (09:12→20:36)
[2019-12-09] MEDS: NUTRISOURCE FIBER 4 GM PACKET GT SCH (09:13)
[2019-12-09] MEDS: NYSTATIN CREAM 30 GM TUBE TP SCH (09:14)
[2019-12-09] MEDS: CLINDAMYCIN TP SCH (09:14)
[2019-12-09] MEDS: TRIAMCINOLONE ACET 0.1% CREAM 15 GM TUBE TP SCH (09:14)
[2019-12-09] MEDS: COD LIVER OIL/ZINC OXIDE OINT 113 GM TUBE TP SCH ×2 (09:14→20:38)
[2019-12-09] MEDS: BACLOFEN 10 MG TABLET GT SCH ×2 (09:14→20:35)
[2019-12-09] MEDS: JEVITY 1.2 1000 ML LIQUID GT PRN (15:18)
--- NOTE | 2019-12-09 15:46 | NUR ---
ZOOM MEETING PROVIDED TO PATIENT'S MOTHER. PT WAS CALM, NO SIGNS OF DISTRESS, AND COMFORTABLE IN BED.
--- NOTE | 2019-12-09 16:50 | NUR ---
Spoke to pt's mother Abdoul,she was informed the Covid 19 results are negative.
[2019-12-09 20:28] VITALS: BP 137/75
[2019-12-09] MEDS: FERROUS SULFATE 330 MG/7.5 ML UDC- FOR SA ONLY GT SCH (20:36)
[2019-12-09] MEDS: MULTIVIT, IRON, MIN NO. 8, FA TABLET GT SCH (20:37)
[2019-12-09] MEDS: MELATONIN 5MG TABLET GT SCH (20:37)
[2019-12-09] MEDS: MINERAL OIL/PETROLATUM,WHITE 57 GM TUBE TP SCH (20:38)
[2019-12-09] MEDS: RIVAROXABAN 10 MG TABLET GT SCH (20:38)
[2019-12-09] MEDS: ADAPALENE 0.3% TP SCH (20:38)
[2019-12-10] MEDS: FAMOTIDINE 20 MG TABLET GT SCH (05:01)
[2019-12-10] MEDS: hydrALAZINE HCL 10 MG TABLET GT SCH ×3 (05:01→22:00)
[2019-12-10] MEDS: JEVITY 1.2 1000 ML LIQUID GT PRN ×2 (06:21→18:19)
[2019-12-10 08:00] VITALS: BP 137/60
[2019-12-10] MEDS: levETIRAcetam 500 MG/5 ML LIQUID UDC GT SCH ×2 (08:35→20:36)
[2019-12-10] MEDS: LACOSAMIDE 100 MG/10 ML UDC GT SCH ×2 (08:35→20:38)
[2019-12-10] MEDS: ACIDOPHILUS/BULGARICUS CHEW TAB GT SCH ×2 (08:36→20:38)
[2019-12-10] MEDS: METOPROLOL TARTRATE 50 MG TABLET GT SCH ×2 (08:37→20:38)
[2019-12-10] MEDS: NUTRISOURCE FIBER 4 GM PACKET GT SCH (08:38)
[2019-12-10] MEDS: CLINDAMYCIN TP SCH (08:38)
[2019-12-10] MEDS: COD LIVER OIL/ZINC OXIDE OINT 113 GM TUBE TP SCH ×2 (08:38→20:40)
[2019-12-10] MEDS: AMLODIPINE 10 MG TABLET GT SCH (08:38)
[2019-12-10] MEDS: BACLOFEN 10 MG TABLET GT SCH ×2 (09:05→20:38)
[2019-12-10] MEDS: HYDROGEN PEROXIDE 3% 118 ML BOTTLE TOP SCH ×2 (10:20→19:29)
[2019-12-10 14:00] VITALS: BP 118/59
--- NOTE | 2019-12-10 15:40 | NUR ---
ZOOM MEETING PROVIDED TO PATIENT'S MOTHER. PT WAS CALM, NO SIGNS OF DISTRESS, AND COMFORTABLE IN BED.
--- NOTE | 2019-12-10 17:05 | NUR ---
New order for COVID-19 test per [facility] COVID-19 requirement.
--- NOTE | 2019-12-10 17:35 | NUR ---
Seen and examined by Dr Ramos no new orders noted.
--- NOTE | 2019-12-10 17:52 | NUR ---
Informed family member Sarahroman, of COVID-19 that there will be a 2nd testing plan with good verbal understanding.
[2019-12-10 20:07] VITALS: BP 140/86
[2019-12-10] MEDS: MELATONIN 5MG TABLET GT SCH (20:38)
[2019-12-10] MEDS: FERROUS SULFATE 330 MG/7.5 ML UDC- FOR SA ONLY GT SCH (20:38)
[2019-12-10] MEDS: MULTIVIT, IRON, MIN NO. 8, FA TABLET GT SCH (20:39)
[2019-12-10] MEDS: MINERAL OIL/PETROLATUM,WHITE 57 GM TUBE TP SCH (20:40)
[2019-12-10] MEDS: ADAPALENE 0.3% TP SCH (20:40)
[2019-12-10] MEDS: RIVAROXABAN 10 MG TABLET GT SCH (20:43)
[2019-12-11] MEDS: hydrALAZINE HCL 10 MG TABLET GT SCH ×3 (05:45→22:00)
[2019-12-11] MEDS: FAMOTIDINE 20 MG TABLET GT SCH (05:45)
[2019-12-11 08:00] VITALS: BP 116/67
[2019-12-11] MEDS: ACIDOPHILUS/BULGARICUS CHEW TAB GT SCH ×2 (08:50→20:44)
[2019-12-11] MEDS: levETIRAcetam 500 MG/5 ML LIQUID UDC GT SCH ×2 (08:50→20:42)
[2019-12-11] MEDS: LACOSAMIDE 100 MG/10 ML UDC GT SCH ×2 (08:50→20:44)
[2019-12-11] MEDS: METOPROLOL TARTRATE 50 MG TABLET GT SCH ×2 (08:51→20:45)
[2019-12-11] MEDS: AMLODIPINE 10 MG TABLET GT SCH (08:51)
[2019-12-11] MEDS: NUTRISOURCE FIBER 4 GM PACKET GT SCH (08:52)
[2019-12-11] MEDS: COD LIVER OIL/ZINC OXIDE OINT 113 GM TUBE TP SCH ×2 (08:54→20:46)
[2019-12-11] MEDS: CLINDAMYCIN TP SCH (08:54)
[2019-12-11] MEDS: HYDROGEN PEROXIDE 3% 118 ML BOTTLE TOP SCH ×2 (09:13→21:37)
[2019-12-11] MEDS: BACLOFEN 10 MG TABLET GT SCH ×2 (09:54→20:43)
[2019-12-11] MEDS: JEVITY 1.2 1000 ML LIQUID GT PRN (09:55)
--- NOTE | 2019-12-11 15:30 | NUR ---
provided zoom for patient with mother, patient stable no signs of pain or discomfort noted, will continue to monitor.
--- NOTE | 2019-12-11 18:32 | NUR ---
PT'S MOTHER AWARE THAT PT. WILL BE TESTED FOR COVID 19 TOMORROW AND IN AGREEMENT.
[2019-12-11 20:00] VITALS: BP 120/75
[2019-12-11] MEDS: FERROUS SULFATE 330 MG/7.5 ML UDC- FOR SA ONLY GT SCH (20:44)
[2019-12-11] MEDS: MULTIVIT, IRON, MIN NO. 8, FA TABLET GT SCH (20:45)
[2019-12-11] MEDS: MELATONIN 5MG TABLET GT SCH (20:45)
[2019-12-11] MEDS: ADAPALENE 0.3% TP SCH ×2 (20:46→21:00)
[2019-12-11] MEDS: MINERAL OIL/PETROLATUM,WHITE 57 GM TUBE TP SCH (20:46)
[2019-12-11] MEDS: RIVAROXABAN 10 MG TABLET GT SCH (21:08)
[2019-12-12] MEDS: JEVITY 1.2 1000 ML LIQUID GT PRN ×2 (01:00→17:40)
[2019-12-12] MEDS: hydrALAZINE HCL 10 MG TABLET GT SCH ×3 (05:48→22:00)
[2019-12-12] MEDS: FAMOTIDINE 20 MG TABLET GT SCH (05:48)
[2019-12-12] MEDS: HYDROGEN PEROXIDE 3% 118 ML BOTTLE TOP SCH ×2 (07:50→21:26)
[2019-12-12 08:00] VITALS: BP 111/59
[2019-12-12] MEDS: LACOSAMIDE 100 MG/10 ML UDC GT SCH ×2 (08:45→20:24)
[2019-12-12] MEDS: ACIDOPHILUS/BULGARICUS CHEW TAB GT SCH ×2 (08:45→21:00)
[2019-12-12] MEDS: levETIRAcetam 500 MG/5 ML LIQUID UDC GT SCH ×2 (08:45→20:24)
[2019-12-12] MEDS: METOPROLOL TARTRATE 50 MG TABLET GT SCH ×2 (08:45→21:00)
[2019-12-12] MEDS: NUTRISOURCE FIBER 4 GM PACKET GT SCH (08:46)
[2019-12-12] MEDS: AMLODIPINE 10 MG TABLET GT SCH (08:46)
[2019-12-12] MEDS: COD LIVER OIL/ZINC OXIDE OINT 113 GM TUBE TP SCH ×2 (08:46→21:00)
[2019-12-12] MEDS: CLINDAMYCIN TP SCH (08:46)
[2019-12-12] MEDS: BACLOFEN 10 MG TABLET GT SCH ×2 (10:48→20:24)
--- NOTE | 2019-12-12 15:30 | NUR ---
provided zoom for patient with mother, patient stable no signs of pain or discomfort noted, will continue to monitor.
[2019-12-12 20:00] VITALS: BP 105/50
[2019-12-12] MEDS: RIVAROXABAN 10 MG TABLET GT SCH (20:25)
[2019-12-12] MEDS: FERROUS SULFATE 330 MG/7.5 ML UDC- FOR SA ONLY GT SCH (21:00)
[2019-12-12] MEDS: MELATONIN 5MG TABLET GT SCH (21:00)
[2019-12-12] MEDS: MULTIVIT, IRON, MIN NO. 8, FA TABLET GT SCH (21:00)
[2019-12-12] MEDS: MINERAL OIL/PETROLATUM,WHITE 57 GM TUBE TP SCH (21:00)
[2019-12-13] MEDS: hydrALAZINE HCL 10 MG TABLET GT SCH ×3 (06:00→22:00)
[2019-12-13] MEDS: FAMOTIDINE 20 MG TABLET GT SCH (06:29)
[2019-12-13 07:51] VITALS: BP 111/54
[2019-12-13] MEDS: levETIRAcetam 500 MG/5 ML LIQUID UDC GT SCH ×2 (08:16→20:41)
[2019-12-13] MEDS: LACOSAMIDE 100 MG/10 ML UDC GT SCH ×2 (08:16→20:41)
[2019-12-13] MEDS: ACIDOPHILUS/BULGARICUS CHEW TAB GT SCH ×2 (08:16→20:43)
[2019-12-13] MEDS: METOPROLOL TARTRATE 50 MG TABLET GT SCH ×2 (08:16→20:44)
[2019-12-13] MEDS: NUTRISOURCE FIBER 4 GM PACKET GT SCH (08:17)
[2019-12-13] MEDS: CLINDAMYCIN TP SCH (08:17)
[2019-12-13] MEDS: AMLODIPINE 10 MG TABLET GT SCH (08:17)
[2019-12-13] MEDS: COD LIVER OIL/ZINC OXIDE OINT 113 GM TUBE TP SCH ×2 (08:17→20:46)
[2019-12-13] MEDS: JEVITY 1.2 1000 ML LIQUID GT PRN (08:47)
[2019-12-13] MEDS: HYDROGEN PEROXIDE 3% 118 ML BOTTLE TOP SCH ×2 (08:52→21:16)
[2019-12-13] MEDS: BACLOFEN 10 MG TABLET GT SCH ×2 (10:44→20:41)
[2019-12-13 14:00] VITALS: BP 113/58
--- NOTE | 2019-12-13 18:08 | NUR ---
provided zoom for patient with mother, no signs of pain or discomfort noted.
[2019-12-13 20:00] VITALS: BP_SYST 100; BP_SYST 102; BP_DIAS 53; BP_DIAS 66
[2019-12-13] MEDS: FERROUS SULFATE 330 MG/7.5 ML UDC- FOR SA ONLY GT SCH (20:42)
[2019-12-13] MEDS: MULTIVIT, IRON, MIN NO. 8, FA TABLET GT SCH (20:43)
[2019-12-13] MEDS: MINERAL OIL/PETROLATUM,WHITE 57 GM TUBE TP SCH (20:46)
[2019-12-13] MEDS: ADAPALENE 0.3% TP SCH (20:46)
[2019-12-13] MEDS: MELATONIN 5MG TABLET GT SCH (20:47)
[2019-12-13] MEDS: RIVAROXABAN 10 MG TABLET GT SCH (21:12)
[2019-12-13 22:00] VITALS: BP 100/53
[2019-12-14 06:00] VITALS: BP 101/55
[2019-12-14] MEDS: hydrALAZINE HCL 10 MG TABLET GT SCH ×3 (06:00→22:00)
[2019-12-14] MEDS: FAMOTIDINE 20 MG TABLET GT SCH (06:01)
[2019-12-14] MEDS: HYDROGEN PEROXIDE 3% 118 ML BOTTLE TOP SCH ×2 (07:26→21:19)
[2019-12-14 07:56] VITALS: BP 102/58
[2019-12-14] MEDS: LACOSAMIDE 100 MG/10 ML UDC GT SCH ×2 (08:44→20:28)
[2019-12-14] MEDS: AMLODIPINE 10 MG TABLET GT SCH (08:44)
[2019-12-14] MEDS: NUTRISOURCE FIBER 4 GM PACKET GT SCH (08:44)
[2019-12-14] MEDS: levETIRAcetam 500 MG/5 ML LIQUID UDC GT SCH ×2 (08:44→20:32)
[2019-12-14] MEDS: ACIDOPHILUS/BULGARICUS CHEW TAB GT SCH ×2 (08:44→20:28)
[2019-12-14] MEDS: METOPROLOL TARTRATE 50 MG TABLET GT SCH ×2 (08:44→20:31)
[2019-12-14] MEDS: COD LIVER OIL/ZINC OXIDE OINT 113 GM TUBE TP SCH ×2 (08:45→20:34)
[2019-12-14] MEDS: CLINDAMYCIN TP SCH (08:45)
[2019-12-14] MEDS: BACLOFEN 10 MG TABLET GT SCH ×2 (10:55→20:28)
[2019-12-14 20:00] VITALS: BP 113/68
[2019-12-14] MEDS: RIVAROXABAN 10 MG TABLET GT SCH (20:27)
[2019-12-14] MEDS: MULTIVIT, IRON, MIN NO. 8, FA TABLET GT SCH (20:28)
[2019-12-14] MEDS: MELATONIN 5MG TABLET GT SCH (20:28)
[2019-12-14] MEDS: FERROUS SULFATE 330 MG/7.5 ML UDC- FOR SA ONLY GT SCH (20:28)
[2019-12-14] MEDS: ADAPALENE 0.3% TP SCH (20:34)
[2019-12-14] MEDS: MINERAL OIL/PETROLATUM,WHITE 57 GM TUBE TP SCH (20:34)
[2019-12-15] MEDS: FAMOTIDINE 20 MG TABLET GT SCH (05:51)
[2019-12-15] MEDS: hydrALAZINE HCL 10 MG TABLET GT SCH ×3 (05:51→22:00)
[2019-12-15 07:39] VITALS: BP 106/62
[2019-12-15 08:00] VITALS: BP 106/62
[2019-12-15] MEDS: levETIRAcetam 500 MG/5 ML LIQUID UDC GT SCH ×2 (09:00→20:26)
[2019-12-15] MEDS: LACOSAMIDE 100 MG/10 ML UDC GT SCH ×2 (09:00→20:28)
[2019-12-15] MEDS: ACIDOPHILUS/BULGARICUS CHEW TAB GT SCH ×2 (09:03→20:28)
[2019-12-15] MEDS: METOPROLOL TARTRATE 50 MG TABLET GT SCH ×2 (09:04→20:29)
[2019-12-15] MEDS: AMLODIPINE 10 MG TABLET GT SCH (09:05)
[2019-12-15] MEDS: CLINDAMYCIN TP SCH (09:06)
[2019-12-15] MEDS: NUTRISOURCE FIBER 4 GM PACKET GT SCH (09:06)
[2019-12-15] MEDS: COD LIVER OIL/ZINC OXIDE OINT 113 GM TUBE TP SCH ×2 (09:06→20:30)
[2019-12-15] MEDS: BACLOFEN 10 MG TABLET GT SCH ×2 (09:10→20:28)
[2019-12-15] MEDS: HYDROGEN PEROXIDE 3% 118 ML BOTTLE TOP SCH ×2 (09:19→21:39)
[2019-12-15] MEDS: JEVITY 1.2 1000 ML LIQUID GT PRN (11:16)
--- NOTE | 2019-12-15 12:00 | NUR ---
SEEN BY QUAN Sharma AND WITH NNO.
--- NOTE | 2019-12-15 14:18 | NUR ---
PT'S MOTHER AWARE THAT PT. IS NEGATIVE FOR COVID 19 TEST.
--- NOTE | 2019-12-15 16:00 | NUR ---
SEEN BY DR. ESTRADA AND DR. CARRILLO AND WITH NNO.
[2019-12-15] MEDS: RIVAROXABAN 10 MG TABLET GT SCH (20:25)
[2019-12-15] MEDS: FERROUS SULFATE 330 MG/7.5 ML UDC- FOR SA ONLY GT SCH (20:28)
[2019-12-15] MEDS: MULTIVIT, IRON, MIN NO. 8, FA TABLET GT SCH (20:29)
[2019-12-15] MEDS: MELATONIN 5MG TABLET GT SCH (20:29)
[2019-12-15] MEDS: MINERAL OIL/PETROLATUM,WHITE 57 GM TUBE TP SCH (20:30)
[2019-12-15] MEDS: ADAPALENE 0.3% TP SCH (20:30)
[2019-12-15 21:05] VITALS: BP 107/63
[2019-12-16] MEDS: JEVITY 1.2 1000 ML LIQUID GT PRN (02:47)
[2019-12-16] MEDS: hydrALAZINE HCL 10 MG TABLET GT SCH ×3 (06:00→22:43)
[2019-12-16] MEDS: FAMOTIDINE 20 MG TABLET GT SCH (06:26)
[2019-12-16 08:00] VITALS: BP 108/56
[2019-12-16] MEDS: levETIRAcetam 500 MG/5 ML LIQUID UDC GT SCH ×2 (08:00→20:26)
[2019-12-16] MEDS: LACOSAMIDE 100 MG/10 ML UDC GT SCH ×2 (08:00→20:26)
[2019-12-16] MEDS: CLINDAMYCIN TP SCH (09:00)
[2019-12-16] MEDS: METOPROLOL TARTRATE 50 MG TABLET GT SCH ×2 (09:00→20:26)
[2019-12-16] MEDS: ACIDOPHILUS/BULGARICUS CHEW TAB GT SCH ×2 (09:00→20:26)
[2019-12-16] MEDS: NUTRISOURCE FIBER 4 GM PACKET GT SCH (09:00)
[2019-12-16] MEDS: COD LIVER OIL/ZINC OXIDE OINT 113 GM TUBE TP SCH ×2 (09:00→20:27)
[2019-12-16] MEDS: AMLODIPINE 10 MG TABLET GT SCH (09:00)
[2019-12-16] MEDS: HYDROGEN PEROXIDE 3% 118 ML BOTTLE TOP SCH ×2 (10:00→21:26)
[2019-12-16] MEDS: BACLOFEN 10 MG TABLET GT SCH ×2 (10:07→20:26)
[2019-12-16] MEDS: RIVAROXABAN 10 MG TABLET GT SCH (20:21)
[2019-12-16] MEDS: MULTIVIT, IRON, MIN NO. 8, FA TABLET GT SCH (20:26)
[2019-12-16] MEDS: MELATONIN 5MG TABLET GT SCH (20:26)
[2019-12-16] MEDS: FERROUS SULFATE 330 MG/7.5 ML UDC- FOR SA ONLY GT SCH (20:26)
[2019-12-16] MEDS: ADAPALENE 0.3% TP SCH (20:27)
[2019-12-16] MEDS: MINERAL OIL/PETROLATUM,WHITE 57 GM TUBE TP SCH (20:27)
[2019-12-16 20:40] VITALS: BP 126/70
[2019-12-17] MEDS: hydrALAZINE HCL 10 MG TABLET GT SCH ×3 (06:00→21:43)
[2019-12-17] MEDS: FAMOTIDINE 20 MG TABLET GT SCH (06:07)
[2019-12-17 08:00] VITALS: BP 103/63
[2019-12-17] MEDS: LACOSAMIDE 100 MG/10 ML UDC GT SCH ×2 (08:00→20:23)
[2019-12-17] MEDS: levETIRAcetam 500 MG/5 ML LIQUID UDC GT SCH ×2 (08:00→20:23)
[2019-12-17] MEDS: HYDROGEN PEROXIDE 3% 118 ML BOTTLE TOP SCH ×2 (08:27→21:29)
[2019-12-17] MEDS: AMLODIPINE 10 MG TABLET GT SCH (09:00)
[2019-12-17] MEDS: METOPROLOL TARTRATE 50 MG TABLET GT SCH ×2 (09:00→20:29)
[2019-12-17] MEDS: ACIDOPHILUS/BULGARICUS CHEW TAB GT SCH ×2 (09:18→20:23)
[2019-12-17] MEDS: COD LIVER OIL/ZINC OXIDE OINT 113 GM TUBE TP SCH ×2 (09:18→21:44)
[2019-12-17] MEDS: CLINDAMYCIN TP SCH (09:18)
[2019-12-17] MEDS: NUTRISOURCE FIBER 4 GM PACKET GT SCH (09:18)
[2019-12-17] MEDS: BACLOFEN 10 MG TABLET GT SCH ×2 (10:42→20:23)
[2019-12-17 20:05] VITALS: BP 131/58
[2019-12-17] MEDS: MELATONIN 5MG TABLET GT SCH (20:23)
[2019-12-17] MEDS: FERROUS SULFATE 330 MG/7.5 ML UDC- FOR SA ONLY GT SCH (20:23)
[2019-12-17] MEDS: MULTIVIT, IRON, MIN NO. 8, FA TABLET GT SCH (20:24)
[2019-12-17] MEDS: ADAPALENE 0.3% TP SCH (21:44)
[2019-12-17] MEDS: MINERAL OIL/PETROLATUM,WHITE 57 GM TUBE TP SCH (21:44)
[2019-12-17] MEDS: RIVAROXABAN 10 MG TABLET GT SCH (21:46)
[2019-12-17 21:53] VITALS: BP 96/47
[2019-12-18] MEDS: hydrALAZINE HCL 10 MG TABLET GT SCH ×3 (06:00→22:00)
[2019-12-18 06:14] VITALS: BP 95/45
[2019-12-18] MEDS: FAMOTIDINE 20 MG TABLET GT SCH (06:15)
[2019-12-18] MEDS: JEVITY 1.2 1000 ML LIQUID GT PRN ×2 (06:32→22:32)
[2019-12-18 08:00] VITALS: BP 121/71
[2019-12-18] MEDS: levETIRAcetam 500 MG/5 ML LIQUID UDC GT SCH ×2 (08:50→20:08)
[2019-12-18] MEDS: LACOSAMIDE 100 MG/10 ML UDC GT SCH ×2 (08:51→20:08)
[2019-12-18] MEDS: ACIDOPHILUS/BULGARICUS CHEW TAB GT SCH ×2 (08:51→20:09)
[2019-12-18] MEDS: METOPROLOL TARTRATE 50 MG TABLET GT SCH ×2 (08:52→20:09)
[2019-12-18] MEDS: CLINDAMYCIN TP SCH (08:55)
[2019-12-18] MEDS: AMLODIPINE 10 MG TABLET GT SCH (08:55)
[2019-12-18] MEDS: NUTRISOURCE FIBER 4 GM PACKET GT SCH (08:55)
[2019-12-18] MEDS: COD LIVER OIL/ZINC OXIDE OINT 113 GM TUBE TP SCH ×2 (08:55→20:10)
[2019-12-18] MEDS: HYDROGEN PEROXIDE 3% 118 ML BOTTLE TOP SCH ×2 (09:00→21:32)
[2019-12-18] MEDS: BACLOFEN 10 MG TABLET GT SCH ×2 (09:02→20:08)
[2019-12-18] MEDS: FERROUS SULFATE 330 MG/7.5 ML UDC- FOR SA ONLY GT SCH (20:09)
[2019-12-18] MEDS: MELATONIN 5MG TABLET GT SCH (20:09)
[2019-12-18] MEDS: MULTIVIT, IRON, MIN NO. 8, FA TABLET GT SCH (20:09)
[2019-12-18] MEDS: MINERAL OIL/PETROLATUM,WHITE 57 GM TUBE TP SCH (20:10)
[2019-12-18] MEDS: ADAPALENE 0.3% TP SCH (20:10)
[2019-12-18 20:19] VITALS: BP 131/55
[2019-12-18] MEDS: RIVAROXABAN 10 MG TABLET GT SCH (20:28)
[2019-12-19] MEDS: hydrALAZINE HCL 10 MG TABLET GT SCH ×3 (05:21→22:24)
[2019-12-19] MEDS: FAMOTIDINE 20 MG TABLET GT SCH (05:21)
[2019-12-19 08:00] VITALS: BP 104/59
[2019-12-19] MEDS: levETIRAcetam 500 MG/5 ML LIQUID UDC GT SCH ×2 (08:34→20:08)
[2019-12-19] MEDS: LACOSAMIDE 100 MG/10 ML UDC GT SCH ×2 (08:34→20:27)
[2019-12-19] MEDS: ACIDOPHILUS/BULGARICUS CHEW TAB GT SCH ×2 (08:34→20:27)
[2019-12-19] MEDS: METOPROLOL TARTRATE 50 MG TABLET GT SCH ×2 (08:35→20:28)
[2019-12-19] MEDS: AMLODIPINE 10 MG TABLET GT SCH (08:36)
[2019-12-19] MEDS: COD LIVER OIL/ZINC OXIDE OINT 113 GM TUBE TP SCH ×2 (08:36→20:29)
[2019-12-19] MEDS: NUTRISOURCE FIBER 4 GM PACKET GT SCH (08:36)
[2019-12-19] MEDS: CLINDAMYCIN TP SCH (08:37)
[2019-12-19] MEDS: HYDROGEN PEROXIDE 3% 118 ML BOTTLE TOP SCH ×2 (09:30→21:34)
[2019-12-19] MEDS: BACLOFEN 10 MG TABLET GT SCH ×2 (10:18→20:27)
--- NOTE | 2019-12-19 19:07 | NUR ---
zoom meeting provided to patient's mother.
[2019-12-19 20:26] VITALS: BP 115/60
[2019-12-19] MEDS: FERROUS SULFATE 330 MG/7.5 ML UDC- FOR SA ONLY GT SCH (20:27)
[2019-12-19] MEDS: MELATONIN 5MG TABLET GT SCH (20:28)
[2019-12-19] MEDS: MULTIVIT, IRON, MIN NO. 8, FA TABLET GT SCH (20:28)
[2019-12-19] MEDS: MINERAL OIL/PETROLATUM,WHITE 57 GM TUBE TP SCH (20:29)
[2019-12-19] MEDS: RIVAROXABAN 10 MG TABLET GT SCH (20:29)
[2019-12-19] MEDS: ADAPALENE 0.3% TP SCH (20:29)
[2019-12-20] MEDS: hydrALAZINE HCL 10 MG TABLET GT SCH ×3 (05:50→22:00)
[2019-12-20] MEDS: FAMOTIDINE 20 MG TABLET GT SCH (05:51)
[2019-12-20 07:43] VITALS: BP 110/64
[2019-12-20] MEDS: levETIRAcetam 500 MG/5 ML LIQUID UDC GT SCH ×2 (08:18→20:01)
[2019-12-20] MEDS: LACOSAMIDE 100 MG/10 ML UDC GT SCH ×2 (08:19→20:02)
[2019-12-20] MEDS: METOPROLOL TARTRATE 50 MG TABLET GT SCH ×2 (08:19→20:08)
[2019-12-20] MEDS: AMLODIPINE 10 MG TABLET GT SCH (08:19)
[2019-12-20] MEDS: ACIDOPHILUS/BULGARICUS CHEW TAB GT SCH ×2 (08:19→20:02)
[2019-12-20] MEDS: COD LIVER OIL/ZINC OXIDE OINT 113 GM TUBE TP SCH ×2 (08:20→20:08)
[2019-12-20] MEDS: CLINDAMYCIN TP SCH (08:20)
[2019-12-20] MEDS: NUTRISOURCE FIBER 4 GM PACKET GT SCH (08:20)
[2019-12-20] MEDS: BACLOFEN 10 MG TABLET GT SCH ×2 (10:00→20:01)
[2019-12-20] MEDS: HYDROGEN PEROXIDE 3% 118 ML BOTTLE TOP SCH ×2 (10:30→21:27)
[2019-12-20] MEDS: MELATONIN 5MG TABLET GT SCH (20:02)
[2019-12-20] MEDS: MULTIVIT, IRON, MIN NO. 8, FA TABLET GT SCH (20:02)
[2019-12-20] MEDS: FERROUS SULFATE 330 MG/7.5 ML UDC- FOR SA ONLY GT SCH (20:02)
[2019-12-20] MEDS: RIVAROXABAN 10 MG TABLET GT SCH (20:03)
[2019-12-20] MEDS: MINERAL OIL/PETROLATUM,WHITE 57 GM TUBE TP SCH (20:09)
[2019-12-20] MEDS: ADAPALENE 0.3% TP SCH (20:09)
[2019-12-20 20:34] VITALS: BP 113/59
[2019-12-21] MEDS: JEVITY 1.2 1000 ML LIQUID GT PRN (02:41)
[2019-12-21] MEDS: hydrALAZINE HCL 10 MG TABLET GT SCH ×3 (05:38→22:00)
[2019-12-21] MEDS: FAMOTIDINE 20 MG TABLET GT SCH (05:39)
[2019-12-21 07:48] VITALS: BP 108/64
[2019-12-21] MEDS: levETIRAcetam 500 MG/5 ML LIQUID UDC GT SCH ×2 (08:30→20:19)
[2019-12-21] MEDS: ACIDOPHILUS/BULGARICUS CHEW TAB GT SCH ×2 (08:33→21:03)
[2019-12-21] MEDS: METOPROLOL TARTRATE 50 MG TABLET GT SCH ×2 (08:33→21:04)
[2019-12-21] MEDS: LACOSAMIDE 100 MG/10 ML UDC GT SCH ×2 (08:33→20:19)
[2019-12-21] MEDS: COD LIVER OIL/ZINC OXIDE OINT 113 GM TUBE TP SCH ×2 (08:34→21:04)
[2019-12-21] MEDS: NUTRISOURCE FIBER 4 GM PACKET GT SCH (08:34)
[2019-12-21] MEDS: AMLODIPINE 10 MG TABLET GT SCH (08:34)
[2019-12-21] MEDS: CLINDAMYCIN TP SCH (08:34)
[2019-12-21] MEDS: HYDROGEN PEROXIDE 3% 118 ML BOTTLE TOP SCH ×2 (09:00→21:26)
[2019-12-21] MEDS: BACLOFEN 10 MG TABLET GT SCH ×2 (10:00→20:19)
[2019-12-21 20:18] VITALS: BP 121/60
[2019-12-21] MEDS: RIVAROXABAN 10 MG TABLET GT SCH (21:00)
[2019-12-21] MEDS: FERROUS SULFATE 330 MG/7.5 ML UDC- FOR SA ONLY GT SCH (21:03)
[2019-12-21] MEDS: ADAPALENE 0.3% TP SCH (21:04)
[2019-12-21] MEDS: MINERAL OIL/PETROLATUM,WHITE 57 GM TUBE TP SCH (21:04)
[2019-12-21] MEDS: MULTIVIT, IRON, MIN NO. 8, FA TABLET GT SCH (21:04)
[2019-12-21] MEDS: MELATONIN 5MG TABLET GT SCH (21:04)
[2019-12-22] MEDS: hydrALAZINE HCL 10 MG TABLET GT SCH ×3 (05:59→22:00)
[2019-12-22] MEDS: FAMOTIDINE 20 MG TABLET GT SCH (06:00)
[2019-12-22 07:30] VITALS: BP 98/54
[2019-12-22] MEDS: HYDROGEN PEROXIDE 3% 118 ML BOTTLE TOP SCH ×2 (08:22→21:46)
[2019-12-22] MEDS: ACIDOPHILUS/BULGARICUS CHEW TAB GT SCH ×2 (08:25→20:35)
[2019-12-22] MEDS: LACOSAMIDE 100 MG/10 ML UDC GT SCH ×2 (08:25→20:26)
[2019-12-22] MEDS: METOPROLOL TARTRATE 50 MG TABLET GT SCH ×2 (08:25→20:35)
[2019-12-22] MEDS: levETIRAcetam 500 MG/5 ML LIQUID UDC GT SCH ×2 (08:25→20:26)
[2019-12-22] MEDS: CLINDAMYCIN TP SCH (08:26)
[2019-12-22] MEDS: NUTRISOURCE FIBER 4 GM PACKET GT SCH (08:26)
[2019-12-22] MEDS: AMLODIPINE 10 MG TABLET GT SCH (08:26)
[2019-12-22] MEDS: COD LIVER OIL/ZINC OXIDE OINT 113 GM TUBE TP SCH ×2 (08:26→20:35)
[2019-12-22] MEDS: BACLOFEN 10 MG TABLET GT SCH ×2 (10:00→20:26)
--- NOTE | 2019-12-22 18:24 | NUR ---
Video chat provided with the family
[2019-12-22 20:07] VITALS: BP 121/62
[2019-12-22] MEDS: MELATONIN 5MG TABLET GT SCH (20:35)
[2019-12-22] MEDS: MULTIVIT, IRON, MIN NO. 8, FA TABLET GT SCH (20:35)
[2019-12-22] MEDS: FERROUS SULFATE 330 MG/7.5 ML UDC- FOR SA ONLY GT SCH (20:35)
[2019-12-22] MEDS: MINERAL OIL/PETROLATUM,WHITE 57 GM TUBE TP SCH (20:35)
[2019-12-22] MEDS: ADAPALENE 0.3% TP SCH (20:35)
[2019-12-22] MEDS: RIVAROXABAN 10 MG TABLET GT SCH (21:00)
[2019-12-23] VITALS: BP 110/67
[2019-12-23] MEDS: LORAZEPAM 0.5 MG TABLET GT PRN (04:33)
[2019-12-23] MEDS: hydrALAZINE HCL 10 MG TABLET GT SCH ×3 (05:37→22:00)
[2019-12-23] MEDS: FAMOTIDINE 20 MG TABLET GT SCH (05:37)
[2019-12-23 06:00] VITALS: BP 130/84
[2019-12-23 07:11] VITALS: BP 93/56
[2019-12-23] MEDS: levETIRAcetam 500 MG/5 ML LIQUID UDC GT SCH ×2 (08:03→20:02)
[2019-12-23] MEDS: ACIDOPHILUS/BULGARICUS CHEW TAB GT SCH ×2 (08:03→20:04)
[2019-12-23] MEDS: METOPROLOL TARTRATE 50 MG TABLET GT SCH ×2 (08:03→20:12)
[2019-12-23] MEDS: LACOSAMIDE 100 MG/10 ML UDC GT SCH ×2 (08:03→20:04)
[2019-12-23] MEDS: NUTRISOURCE FIBER 4 GM PACKET GT SCH (08:04)
[2019-12-23] MEDS: AMLODIPINE 10 MG TABLET GT SCH (08:04)
[2019-12-23] MEDS: COD LIVER OIL/ZINC OXIDE OINT 113 GM TUBE TP SCH ×2 (08:05→20:17)
[2019-12-23] MEDS: CLINDAMYCIN TP SCH (08:05)
[2019-12-23] MEDS: HYDROGEN PEROXIDE 3% 118 ML BOTTLE TOP SCH ×2 (09:15→19:20)
[2019-12-23] MEDS: BACLOFEN 10 MG TABLET GT SCH ×2 (10:00→20:04)
--- NOTE | 2019-12-23 17:35 | NUR ---
video chat provided with the family.
[2019-12-23] MEDS: FERROUS SULFATE 330 MG/7.5 ML UDC- FOR SA ONLY GT SCH (20:04)
[2019-12-23] MEDS: MELATONIN 5MG TABLET GT SCH (20:12)
[2019-12-23 20:13] VITALS: BP 149/70
[2019-12-23] MEDS: MULTIVIT, IRON, MIN NO. 8, FA TABLET GT SCH (20:14)
[2019-12-23] MEDS: RIVAROXABAN 10 MG TABLET GT SCH (20:16)
[2019-12-23] MEDS: MINERAL OIL/PETROLATUM,WHITE 57 GM TUBE TP SCH (20:17)
[2019-12-23] MEDS: ADAPALENE 0.3% TP SCH (20:17)
[2019-12-23 22:18] VITALS: BP 94/43
[2019-12-24] MEDS: hydrALAZINE HCL 10 MG TABLET GT SCH ×3 (05:26→22:29)
[2019-12-24] MEDS: FAMOTIDINE 20 MG TABLET GT SCH (05:27)
[2019-12-24 07:19] VITALS: BP 100/69
[2019-12-24] MEDS: levETIRAcetam 500 MG/5 ML LIQUID UDC GT SCH ×2 (08:00→20:12)
[2019-12-24] MEDS: LACOSAMIDE 100 MG/10 ML UDC GT SCH ×2 (08:00→20:12)
[2019-12-24] MEDS: AMLODIPINE 10 MG TABLET GT SCH (09:00)
[2019-12-24] MEDS: METOPROLOL TARTRATE 50 MG TABLET GT SCH ×2 (09:00→20:13)
[2019-12-24] MEDS: HYDROGEN PEROXIDE 3% 118 ML BOTTLE TOP SCH ×2 (09:05→21:32)
[2019-12-24] MEDS: COD LIVER OIL/ZINC OXIDE OINT 113 GM TUBE TP SCH ×2 (09:39→20:13)
[2019-12-24] MEDS: CLINDAMYCIN TP SCH (09:39)
[2019-12-24] MEDS: NUTRISOURCE FIBER 4 GM PACKET GT SCH (09:39)
[2019-12-24] MEDS: ACIDOPHILUS/BULGARICUS CHEW TAB GT SCH ×2 (09:41→20:12)
[2019-12-24] MEDS: BACLOFEN 10 MG TABLET GT SCH ×2 (10:00→20:12)
--- NOTE | 2019-12-24 14:36 | NUR ---
SAPNA sent patient's mother Abdoul an email, notifying her that the next IDT meeting for the patient is scheduled for 12/30/2019. In this email, SAPNA asked Abdoul to let this SW know if she wanted to participate in the meeting through speaker phone.
[2019-12-24 20:00] VITALS: BP 129/53
[2019-12-24] MEDS: FERROUS SULFATE 330 MG/7.5 ML UDC- FOR SA ONLY GT SCH (20:12)
[2019-12-24] MEDS: RIVAROXABAN 10 MG TABLET GT SCH (20:13)
[2019-12-24] MEDS: MELATONIN 5MG TABLET GT SCH (20:13)
[2019-12-24] MEDS: MINERAL OIL/PETROLATUM,WHITE 57 GM TUBE TP SCH (20:13)
[2019-12-24] MEDS: MULTIVIT, IRON, MIN NO. 8, FA TABLET GT SCH (20:13)
[2019-12-24] MEDS: JEVITY 1.2 1000 ML LIQUID GT PRN (20:14)
[2019-12-24] MEDS: ADAPALENE 0.3% TP SCH (20:14)
--- NOTE | 2019-12-24 20:30 | NUR ---
pt vomited moderate amount of liquid, [facility] called and left a message, [phone] [facility] again for medication order, drop hammer pile driver operator stated dr kauffman said call tomorrow after 9am. pt's mother, armanistevedevin notified. Addendum: 12/25/19 at 0415 by KAYLA JIMENEZ RN rosalva, mother notified of vomiting.
[2019-12-24 22:20] VITALS: BP 123/70
[2019-12-25 04:00] VITALS: BP 95/49
[2019-12-25] MEDS: hydrALAZINE HCL 10 MG TABLET GT SCH ×3 (05:50→22:34)
[2019-12-25] MEDS: FAMOTIDINE 20 MG TABLET GT SCH (05:51)
[2019-12-25 05:53] VITALS: BP 94/51
[2019-12-25 07:38] VITALS: BP 101/61
[2019-12-25] MEDS: ACIDOPHILUS/BULGARICUS CHEW TAB GT SCH ×2 (08:01→20:38)
[2019-12-25] MEDS: levETIRAcetam 500 MG/5 ML LIQUID UDC GT SCH ×2 (08:01→20:38)
[2019-12-25] MEDS: LACOSAMIDE 100 MG/10 ML UDC GT SCH ×2 (08:01→20:38)
[2019-12-25] MEDS: NUTRISOURCE FIBER 4 GM PACKET GT SCH (08:02)
[2019-12-25] MEDS: COD LIVER OIL/ZINC OXIDE OINT 113 GM TUBE TP SCH ×2 (08:02→20:40)
[2019-12-25] MEDS: AMLODIPINE 10 MG TABLET GT SCH (08:02)
[2019-12-25] MEDS: METOPROLOL TARTRATE 50 MG TABLET GT SCH ×2 (08:02→20:39)
[2019-12-25] MEDS: CLINDAMYCIN TP SCH (08:03)
[2019-12-25] MEDS: BACLOFEN 10 MG TABLET GT SCH ×2 (09:03→20:38)
[2019-12-25] MEDS: HYDROGEN PEROXIDE 3% 118 ML BOTTLE TOP SCH ×2 (09:39→21:42)
[2019-12-25 13:46] VITALS: BP 115/64
[2019-12-25] MEDS: JEVITY 1.2 1000 ML LIQUID GT PRN (16:36)
--- NOTE | 2019-12-25 17:00 | NUR ---
SEEN BY DR. FORREST AND GERARDO BLACKMON AND WITH NNO.
[2019-12-25 20:00] VITALS: BP 124/83
[2019-12-25] MEDS: FERROUS SULFATE 330 MG/7.5 ML UDC- FOR SA ONLY GT SCH (20:38)
[2019-12-25] MEDS: MULTIVIT, IRON, MIN NO. 8, FA TABLET GT SCH (20:39)
[2019-12-25] MEDS: MELATONIN 5MG TABLET GT SCH (20:39)
[2019-12-25] MEDS: ADAPALENE 0.3% TP SCH (20:40)
[2019-12-25] MEDS: MINERAL OIL/PETROLATUM,WHITE 57 GM TUBE TP SCH (20:40)
[2019-12-25] MEDS: RIVAROXABAN 10 MG TABLET GT SCH (20:40)
[2019-12-25] MEDS: LORAZEPAM 0.5 MG TABLET GT PRN (22:34)
--- NOTE | 2019-12-25 22:35 | NUR ---
Patient is agitated and biting lip. Ativan 0.5mg given.
[2019-12-26] MEDS: hydrALAZINE HCL 10 MG TABLET GT SCH ×3 (06:00→21:27)
[2019-12-26] MEDS: FAMOTIDINE 20 MG TABLET GT SCH (06:23)
[2019-12-26 07:07] LABS: BASOPHILS # (AUTO) 0.1 K/uL (0.0-8.0); BASOPHILS % (AUTO) 0.5 % (0.0-2.0); EOSINOPHILS # (AUTO) 0.3 K/uL (0.0-0.7); EOSINOPHILS % (AUTO) 2.8 % (0.0-7.0); HEMATOCRIT 40.1 % (31.2-41.9); HEMOGLOBIN 13.6 g/dL (10.9-14.3); LYMPHOCYTES # (AUTO) 1.7 K/uL (20.0-40.0); LYMPHOCYTES % (AUTO) 14.4 % (20.5-51.5); MEAN CORPUSCULAR HEMOGLOBIN 30.7 uug (24.7-32.8); MEAN CORPUSCULAR HGB CONC 34 g/dL (32.3-35.6); MEAN CORPUSCULAR VOLUME 90.5 fL (75.5-95.3); MONOCYTES % (AUTO) 8.2 % (0.0-11.0); NEUTROPHILS # (AUTO) 8.9 K/uL (1.8-8.9); NEUTROPHILS % (AUTO) 74.1 % (38.5-71.5); PLATELET COUNT (AUTO) 353 K/uL (179-408); RED BLOOD CELL COUNT(AUTO) 4.43 MIL/uL (3.63-4.92)
[2019-12-26 07:33] LABS: CREATININE 0.7 mg/dL (0.6-1.3); MAGNESIUM 2.2 mg/dL (1.8-2.4); PHOSPHOROUS 4.7 mg/dL (2.5-4.9); POTASSIUM 4.3 mmol/L (3.5-5.1)
[2019-12-26] MEDS: levETIRAcetam 500 MG/5 ML LIQUID UDC GT SCH ×2 (08:18→20:33)
[2019-12-26] MEDS: ACIDOPHILUS/BULGARICUS CHEW TAB GT SCH ×2 (08:18→20:33)
[2019-12-26] MEDS: LACOSAMIDE 100 MG/10 ML UDC GT SCH ×2 (08:18→20:33)
[2019-12-26] MEDS: METOPROLOL TARTRATE 50 MG TABLET GT SCH ×2 (08:19→20:33)
[2019-12-26] MEDS: NUTRISOURCE FIBER 4 GM PACKET GT SCH (08:20)
[2019-12-26] MEDS: COD LIVER OIL/ZINC OXIDE OINT 113 GM TUBE TP SCH ×2 (08:20→20:34)
[2019-12-26] MEDS: CLINDAMYCIN TP SCH (08:20)
[2019-12-26] MEDS: AMLODIPINE 10 MG TABLET GT SCH (08:20)
[2019-12-26 08:35] VITALS: BP 114/65
[2019-12-26] MEDS: HYDROGEN PEROXIDE 3% 118 ML BOTTLE TOP SCH ×2 (09:06→21:18)
[2019-12-26] MEDS: BACLOFEN 10 MG TABLET GT SCH ×2 (10:19→20:33)
[2019-12-26 20:00] VITALS: BP 108/57
[2019-12-26] MEDS: FERROUS SULFATE 330 MG/7.5 ML UDC- FOR SA ONLY GT SCH (20:33)
[2019-12-26] MEDS: MULTIVIT, IRON, MIN NO. 8, FA TABLET GT SCH (20:33)
[2019-12-26] MEDS: MELATONIN 5MG TABLET GT SCH (20:33)
[2019-12-26] MEDS: ADAPALENE 0.3% TP SCH (20:34)
[2019-12-26] MEDS: RIVAROXABAN 10 MG TABLET GT SCH (20:34)
[2019-12-26] MEDS: MINERAL OIL/PETROLATUM,WHITE 57 GM TUBE TP SCH (20:34)
--- NOTE | 2019-12-27 01:35 | NUR ---
Change previous GT site care to wash with soap and water and cover with dry dressing daily.
[2019-12-27] MEDS: JEVITY 1.2 1000 ML LIQUID GT PRN (02:52)
[2019-12-27] MEDS: FAMOTIDINE 20 MG TABLET GT SCH (05:30)
[2019-12-27] MEDS: hydrALAZINE HCL 10 MG TABLET GT SCH ×3 (05:30→21:45)
[2019-12-27 07:45] VITALS: BP 116/60
[2019-12-27] MEDS: LACOSAMIDE 100 MG/10 ML UDC GT SCH ×2 (08:45→20:09)
[2019-12-27] MEDS: levETIRAcetam 500 MG/5 ML LIQUID UDC GT SCH ×2 (08:45→20:09)
[2019-12-27] MEDS: METOPROLOL TARTRATE 50 MG TABLET GT SCH ×2 (08:45→20:10)
[2019-12-27] MEDS: ACIDOPHILUS/BULGARICUS CHEW TAB GT SCH ×2 (08:45→20:09)
[2019-12-27] MEDS: AMLODIPINE 10 MG TABLET GT SCH (08:45)
[2019-12-27] MEDS: COD LIVER OIL/ZINC OXIDE OINT 113 GM TUBE TP SCH ×2 (08:46→20:16)
[2019-12-27] MEDS: CLINDAMYCIN TP SCH (08:46)
[2019-12-27] MEDS: NUTRISOURCE FIBER 4 GM PACKET GT SCH (08:46)
[2019-12-27] MEDS: BACLOFEN 10 MG TABLET GT SCH ×2 (09:00→20:09)
[2019-12-27] MEDS: HYDROGEN PEROXIDE 3% 118 ML BOTTLE TOP SCH ×2 (09:50→20:16)
--- NOTE | 2019-12-27 17:10 | NUR ---
Provided video chat to pt and her mother with no problem, pt remains with episodes of biting her lips mother aware and treatment done as ordered. Pt remains with no signs of distress noted.
[2019-12-27] MEDS: FERROUS SULFATE 330 MG/7.5 ML UDC- FOR SA ONLY GT SCH (20:09)
[2019-12-27] MEDS: MULTIVIT, IRON, MIN NO. 8, FA TABLET GT SCH (20:10)
[2019-12-27] MEDS: MELATONIN 5MG TABLET GT SCH (20:15)
[2019-12-27] MEDS: NEOMY/BACITRA/POLYMYXIN B OINT UD PACKET TP SCH (20:16)
[2019-12-27] MEDS: ADAPALENE 0.3% TP SCH (20:16)
[2019-12-27] MEDS: RIVAROXABAN 10 MG TABLET GT SCH (20:16)
[2019-12-27] MEDS: MINERAL OIL/PETROLATUM,WHITE 57 GM TUBE TP SCH (20:16)
[2019-12-27 20:29] VITALS: BP 116/54
[2019-12-27 22:00] VITALS: BP 90/68
[2019-12-28] MEDS: hydrALAZINE HCL 10 MG TABLET GT SCH ×3 (05:15→22:00)
[2019-12-28] MEDS: FAMOTIDINE 20 MG TABLET GT SCH (05:15)
[2019-12-28 08:01] VITALS: BP 120/72
[2019-12-28] MEDS: levETIRAcetam 500 MG/5 ML LIQUID UDC GT SCH ×2 (08:14→20:35)
[2019-12-28] MEDS: ACIDOPHILUS/BULGARICUS CHEW TAB GT SCH ×2 (08:14→20:51)
[2019-12-28] MEDS: LACOSAMIDE 100 MG/10 ML UDC GT SCH ×2 (08:14→20:35)
[2019-12-28] MEDS: METOPROLOL TARTRATE 50 MG TABLET GT SCH ×2 (08:15→20:51)
[2019-12-28] MEDS: AMLODIPINE 10 MG TABLET GT SCH (08:16)
[2019-12-28] MEDS: NEOMY/BACITRA/POLYMYXIN B OINT UD PACKET TP SCH ×2 (08:16→20:53)
[2019-12-28] MEDS: COD LIVER OIL/ZINC OXIDE OINT 113 GM TUBE TP SCH ×2 (08:16→20:52)
[2019-12-28] MEDS: CLINDAMYCIN TP SCH (08:16)
[2019-12-28] MEDS: NUTRISOURCE FIBER 4 GM PACKET GT SCH (08:16)
[2019-12-28] MEDS: ACETAMINOPHEN 650 MG/20 ML UDC- SA PATIENTS-PAIN ONLY GT PRN (08:17)
[2019-12-28] MEDS: HYDROGEN PEROXIDE 3% 118 ML BOTTLE TOP SCH ×2 (09:05→19:27)
[2019-12-28] MEDS: BACLOFEN 10 MG TABLET GT SCH ×2 (10:00→20:35)
[2019-12-28] MEDS: JEVITY 1.2 1000 ML LIQUID GT PRN (11:25)
--- NOTE | 2019-12-28 15:35 | NUR ---
ZOOM PROVIDED TO MOTHER.
--- NOTE | 2019-12-28 17:00 | NUR ---
PT'S MOTHER WAS AWARE OF COVID 19 TESTING AND OVER CONCERN ABOUT IT AND KEPT ASKING WHY AGAIN AND CH. NURSE REASSURED THAT IS FOR PROTOCOLE ,SHE EXPRESSED THAT SHE WAS WORRIED ABOUT ANY EXPOSURE AND AT HE END IN AGREEMENT.
[2019-12-28 20:23] VITALS: BP 108/68
[2019-12-28] MEDS: RIVAROXABAN 10 MG TABLET GT SCH (20:40)
[2019-12-28] MEDS: FERROUS SULFATE 330 MG/7.5 ML UDC- FOR SA ONLY GT SCH (20:51)
[2019-12-28] MEDS: MINERAL OIL/PETROLATUM,WHITE 57 GM TUBE TP SCH (20:52)
[2019-12-28] MEDS: MELATONIN 5MG TABLET GT SCH (20:52)
[2019-12-28] MEDS: ADAPALENE 0.3% TP SCH (20:52)
[2019-12-28] MEDS: MULTIVIT, IRON, MIN NO. 8, FA TABLET GT SCH (20:52)
[2019-12-28 22:15] VITALS: BP 106/68
[2019-12-29] MEDS: hydrALAZINE HCL 10 MG TABLET GT SCH ×3 (05:25→22:00)
[2019-12-29] MEDS: FAMOTIDINE 20 MG TABLET GT SCH (05:28)
[2019-12-29] MEDS: JEVITY 1.2 1000 ML LIQUID GT PRN ×2 (05:59→23:17)
[2019-12-29 06:00] VITALS: BP 105/59
[2019-12-29 07:40] VITALS: BP 113/71
[2019-12-29] MEDS: AMLODIPINE 10 MG TABLET GT SCH (08:01)
[2019-12-29] MEDS: METOPROLOL TARTRATE 50 MG TABLET GT SCH ×2 (08:01→20:39)
[2019-12-29] MEDS: COD LIVER OIL/ZINC OXIDE OINT 113 GM TUBE TP SCH ×2 (08:01→20:40)
[2019-12-29] MEDS: NEOMY/BACITRA/POLYMYXIN B OINT UD PACKET TP SCH ×2 (08:01→20:40)
[2019-12-29] MEDS: ACIDOPHILUS/BULGARICUS CHEW TAB GT SCH ×2 (08:01→20:39)
[2019-12-29] MEDS: NUTRISOURCE FIBER 4 GM PACKET GT SCH (08:01)
[2019-12-29] MEDS: levETIRAcetam 500 MG/5 ML LIQUID UDC GT SCH ×2 (08:01→20:34)
[2019-12-29] MEDS: CLINDAMYCIN TP SCH (08:01)
[2019-12-29] MEDS: LACOSAMIDE 100 MG/10 ML UDC GT SCH ×2 (08:01→20:34)
[2019-12-29] MEDS: HYDROGEN PEROXIDE 3% 118 ML BOTTLE TOP SCH ×2 (09:20→21:55)
[2019-12-29] MEDS: BACLOFEN 10 MG TABLET GT SCH ×2 (10:48→20:34)
--- NOTE | 2019-12-29 16:20 | NUR ---
PT NOTED STILL BITING LOWER LIP ON AND OFF. MOTHER AWARE. MD NOTIFIED WITH NEW ORDER NOTED AND CARRIED OUT. MOTHER AGREED TO HAVE GAUZE IN BETWEEN TEETH AND LIPS TO PREVENT FROM LIP BITING AND TO HEAL LIP.
--- NOTE | 2019-12-29 16:24 | NUR ---
ZOOM PROVIDED TO MOTHER.
--- NOTE | 2019-12-29 17:39 | NUR ---
MD NOTIFIED RE PT TX ON LIP. PT NOTED OPENING MOUTH AND GAUZE NOT STAYING IN PLACE WITH NEW ORDER NOTED AND CARRIED OUT. MOTHER MADE AWARE.
[2019-12-29] MEDS: MELATONIN 5MG TABLET GT SCH (20:39)
[2019-12-29] MEDS: MULTIVIT, IRON, MIN NO. 8, FA TABLET GT SCH (20:39)
[2019-12-29] MEDS: FERROUS SULFATE 330 MG/7.5 ML UDC- FOR SA ONLY GT SCH (20:39)
[2019-12-29] MEDS: MINERAL OIL/PETROLATUM,WHITE 57 GM TUBE TP SCH (20:40)
[2019-12-29] MEDS: ADAPALENE 0.3% TP SCH (20:40)
[2019-12-29 20:41] VITALS: BP 111/77
[2019-12-29] MEDS: RIVAROXABAN 10 MG TABLET GT SCH (21:00)
[2019-12-29 22:00] VITALS: BP 95/55
[2019-12-30] MEDS: hydrALAZINE HCL 10 MG TABLET GT SCH ×2 (06:00→13:05)
[2019-12-30] MEDS: FAMOTIDINE 20 MG TABLET GT SCH (06:19)
[2019-12-30 06:35] LABS: BASOPHILS # (AUTO) 0.1 K/uL (0.0-8.0); BASOPHILS % (AUTO) 0.8 % (0.0-2.0); EOSINOPHILS # (AUTO) 0.5 K/uL (0.0-0.7); EOSINOPHILS % (AUTO) 6.5 % (0.0-7.0); HEMATOCRIT 38.6 % (31.2-41.9); LYMPHOCYTES # (AUTO) 2.1 K/uL (20.0-40.0); LYMPHOCYTES % (AUTO) 29.9 % (20.5-51.5); MEAN CORPUSCULAR HEMOGLOBIN 30.5 uug (24.7-32.8); MEAN CORPUSCULAR HGB CONC 34 g/dL (32.3-35.6); MEAN CORPUSCULAR VOLUME 90.7 fL (75.5-95.3); MONOCYTES # (AUTO) 0.5 K/uL (2.0-10.0); MONOCYTES % (AUTO) 7.4 % (0.0-11.0); NEUTROPHILS # (AUTO) 3.9 K/uL (1.8-8.9); NEUTROPHILS % (AUTO) 55.4 % (38.5-71.5); PLATELET COUNT (AUTO) 306 K/uL (179-408); RED BLOOD CELL COUNT(AUTO) 4.25 MIL/uL (3.63-4.92)
[2019-12-30 07:09] LABS: CREATININE 0.8 mg/dL (0.6-1.3); MAGNESIUM 2.2 mg/dL (1.8-2.4); POTASSIUM 4.5 mmol/L (3.5-5.1)
[2019-12-30 07:27] VITALS: BP 96/57
[2019-12-30] MEDS: LACOSAMIDE 100 MG/10 ML UDC GT SCH ×2 (08:02→20:37)
[2019-12-30] MEDS: levETIRAcetam 500 MG/5 ML LIQUID UDC GT SCH ×2 (08:02→20:35)
[2019-12-30] MEDS: ACIDOPHILUS/BULGARICUS CHEW TAB GT SCH ×2 (08:02→20:38)
[2019-12-30] MEDS: HYDROGEN PEROXIDE 3% 118 ML BOTTLE TOP SCH ×2 (08:07→21:46)
[2019-12-30] MEDS: METOPROLOL TARTRATE 50 MG TABLET GT SCH ×2 (09:00→20:39)
[2019-12-30] MEDS: AMLODIPINE 10 MG TABLET GT SCH (09:00)
[2019-12-30] MEDS: NUTRISOURCE FIBER 4 GM PACKET GT SCH (09:27)
[2019-12-30] MEDS: COD LIVER OIL/ZINC OXIDE OINT 113 GM TUBE TP SCH ×2 (09:28→20:41)
[2019-12-30] MEDS: NEOMY/BACITRA/POLYMYXIN B OINT UD PACKET TP SCH ×2 (09:30→20:41)
[2019-12-30] MEDS: CLINDAMYCIN TP SCH (09:30)
[2019-12-30] MEDS: BACLOFEN 10 MG TABLET GT SCH ×2 (10:35→20:37)
--- NOTE | 2019-12-30 16:30 | NUR ---
INTERDISCIPLINARY PLAN OF CARE CONFERENCE was held today. Patient's mother Abdoul participated in the meeting through speaker phone, and Abdoul also had her friend Bret present on the phone call. Dr. Ramos and the Interdisciplinary Team reviewed the current plan of care in detail. RN reported on patient's medical condition. See RN IDT conference notes. Pharmacy discussed patient's medications and recommendations for some changes/adjustments. No major changes in medical condition were reported by nursing or by the other disciplines. See all disciplines IDT notes and physician's progress notes for additional details. Abdoul's questions were addressed by the IDT team, and by Dr. Ramos, and Abdoul expressed understanding and agreement with the discussion during the meeting.
[2019-12-30 20:00] VITALS: BP 110/70
[2019-12-30] MEDS: FERROUS SULFATE 330 MG/7.5 ML UDC- FOR SA ONLY GT SCH (20:37)
[2019-12-30] MEDS: MELATONIN 5MG TABLET GT SCH (20:39)
[2019-12-30] MEDS: MULTIVIT, IRON, MIN NO. 8, FA TABLET GT SCH (20:39)
[2019-12-30] MEDS: RIVAROXABAN 10 MG TABLET GT SCH (20:40)
[2019-12-30] MEDS: MINERAL OIL/PETROLATUM,WHITE 57 GM TUBE TP SCH (20:41)
[2019-12-30] MEDS: ADAPALENE 0.3% TP SCH (20:41)
[2019-12-31] MEDS: FAMOTIDINE 20 MG TABLET GT SCH (05:30)
[2019-12-31] MEDS: HYDROGEN PEROXIDE 3% 118 ML BOTTLE TOP SCH ×2 (08:09→21:45)
[2019-12-31] MEDS: levETIRAcetam 500 MG/5 ML LIQUID UDC GT SCH ×2 (08:14→20:22)
[2019-12-31] MEDS: LACOSAMIDE 100 MG/10 ML UDC GT SCH ×2 (08:14→20:23)
[2019-12-31] MEDS: METOPROLOL TARTRATE 50 MG TABLET GT SCH ×2 (09:00→20:24)
[2019-12-31] MEDS: AMLODIPINE 10 MG TABLET GT SCH (09:00)
[2019-12-31] MEDS: ACIDOPHILUS/BULGARICUS CHEW TAB GT SCH ×2 (09:46→20:23)
[2019-12-31] MEDS: NUTRISOURCE FIBER 4 GM PACKET GT SCH (09:47)
[2019-12-31] MEDS: COD LIVER OIL/ZINC OXIDE OINT 113 GM TUBE TP SCH ×2 (09:48→20:26)
[2019-12-31] MEDS: NEOMY/BACITRA/POLYMYXIN B OINT UD PACKET TP SCH ×2 (09:48→20:27)
[2019-12-31] MEDS: CLINDAMYCIN TP SCH (09:48)
[2019-12-31] MEDS: JEVITY 1.2 1000 ML LIQUID GT PRN (10:23)
[2019-12-31] MEDS: BACLOFEN 10 MG TABLET GT SCH ×2 (10:23→20:23)
[2019-12-31 11:00] VITALS: BP 106/63
[2019-12-31 14:00] VITALS: BP 90/60
[2019-12-31 20:00] VITALS: BP 129/88
[2019-12-31] MEDS: FERROUS SULFATE 330 MG/7.5 ML UDC- FOR SA ONLY GT SCH (20:23)
[2019-12-31] MEDS: MELATONIN 5MG TABLET GT SCH (20:25)
[2019-12-31] MEDS: RIVAROXABAN 10 MG TABLET GT SCH (20:26)
[2019-12-31] MEDS: MULTIVIT, IRON, MIN NO. 8, FA TABLET GT SCH (20:26)
[2019-12-31] MEDS: MINERAL OIL/PETROLATUM,WHITE 57 GM TUBE TP SCH (20:26)
[2019-12-31] MEDS: ADAPALENE 0.3% TP SCH (20:27)
[2020-01-01] MEDS: JEVITY 1.2 1000 ML LIQUID GT PRN ×2 (01:20→19:04)
[2020-01-01] MEDS: FAMOTIDINE 20 MG TABLET GT SCH (05:41)
[2020-01-01] MEDS: HYDROGEN PEROXIDE 3% 118 ML BOTTLE TOP SCH ×2 (07:22→21:37)
[2020-01-01 08:00] VITALS: BP 108/66
[2020-01-01] MEDS: levETIRAcetam 500 MG/5 ML LIQUID UDC GT SCH ×2 (08:22→20:41)
[2020-01-01] MEDS: ACIDOPHILUS/BULGARICUS CHEW TAB GT SCH ×2 (08:22→20:42)
[2020-01-01] MEDS: AMLODIPINE 10 MG TABLET GT SCH (08:22)
[2020-01-01] MEDS: LACOSAMIDE 100 MG/10 ML UDC GT SCH ×2 (08:22→20:42)
[2020-01-01] MEDS: METOPROLOL TARTRATE 50 MG TABLET GT SCH ×2 (08:22→20:43)
[2020-01-01] MEDS: NUTRISOURCE FIBER 4 GM PACKET GT SCH (08:22)
[2020-01-01] MEDS: COD LIVER OIL/ZINC OXIDE OINT 113 GM TUBE TP SCH ×2 (08:23→20:45)
[2020-01-01] MEDS: NEOMY/BACITRA/POLYMYXIN B OINT UD PACKET TP SCH ×2 (08:23→20:45)
[2020-01-01] MEDS: CLINDAMYCIN TP SCH (08:23)
[2020-01-01] MEDS: BACLOFEN 10 MG TABLET GT SCH ×2 (10:00→20:42)
--- NOTE | 2020-01-01 16:00 | NUR ---
zoom meeting provided to patient's mother. patient is calm, comfortable, and no signs of distress.
[2020-01-01 20:00] VITALS: BP 116/89
[2020-01-01] MEDS: FERROUS SULFATE 330 MG/7.5 ML UDC- FOR SA ONLY GT SCH (20:42)
[2020-01-01] MEDS: MULTIVIT, IRON, MIN NO. 8, FA TABLET GT SCH (20:44)
[2020-01-01] MEDS: MELATONIN 5MG TABLET GT SCH (20:44)
[2020-01-01] MEDS: ADAPALENE 0.3% TP SCH (20:45)
[2020-01-01] MEDS: MINERAL OIL/PETROLATUM,WHITE 57 GM TUBE TP SCH (20:45)
[2020-01-01] MEDS: RIVAROXABAN 10 MG TABLET GT SCH (20:45)
[2020-01-02] MEDS: FAMOTIDINE 20 MG TABLET GT SCH (05:45)
[2020-01-02 08:00] VITALS: BP 127/64
[2020-01-02] MEDS: levETIRAcetam 500 MG/5 ML LIQUID UDC GT SCH ×2 (08:35→20:31)
[2020-01-02] MEDS: LACOSAMIDE 100 MG/10 ML UDC GT SCH ×2 (08:36→20:31)
[2020-01-02] MEDS: ACIDOPHILUS/BULGARICUS CHEW TAB GT SCH ×2 (08:36→20:31)
[2020-01-02] MEDS: AMLODIPINE 10 MG TABLET GT SCH (08:40)
[2020-01-02] MEDS: NUTRISOURCE FIBER 4 GM PACKET GT SCH (08:40)
[2020-01-02] MEDS: METOPROLOL TARTRATE 50 MG TABLET GT SCH ×2 (08:40→20:31)
[2020-01-02] MEDS: COD LIVER OIL/ZINC OXIDE OINT 113 GM TUBE TP SCH ×2 (08:41→20:31)
[2020-01-02] MEDS: HYDROGEN PEROXIDE 3% 118 ML BOTTLE TOP SCH ×2 (09:00→21:04)
[2020-01-02] MEDS: CLINDAMYCIN TP SCH (09:00)
[2020-01-02] MEDS: NEOMY/BACITRA/POLYMYXIN B OINT UD PACKET TP SCH ×2 (09:00→20:31)
[2020-01-02] MEDS: BACLOFEN 10 MG TABLET GT SCH ×2 (10:10→20:31)
[2020-01-02] MEDS: JEVITY 1.2 1000 ML LIQUID GT PRN ×2 (11:20→22:30)
--- NOTE | 2020-01-02 18:45 | NUR ---
Assisted with video chat with pt's mother at this time.
[2020-01-02 20:00] VITALS: BP 120/79
[2020-01-02] MEDS: MELATONIN 5MG TABLET GT SCH (20:31)
[2020-01-02] MEDS: FERROUS SULFATE 330 MG/7.5 ML UDC- FOR SA ONLY GT SCH (20:31)
[2020-01-02] MEDS: ADAPALENE 0.3% TP SCH (20:31)
[2020-01-02] MEDS: MULTIVIT, IRON, MIN NO. 8, FA TABLET GT SCH (20:31)
[2020-01-02] MEDS: MINERAL OIL/PETROLATUM,WHITE 57 GM TUBE TP SCH (20:31)
[2020-01-02] MEDS: RIVAROXABAN 10 MG TABLET GT SCH (20:32)
[2020-01-03] MEDS: FAMOTIDINE 20 MG TABLET GT SCH (05:03)
[2020-01-03 07:49] VITALS: BP 113/67
[2020-01-03] MEDS: levETIRAcetam 500 MG/5 ML LIQUID UDC GT SCH ×2 (08:48→20:32)
[2020-01-03] MEDS: LACOSAMIDE 100 MG/10 ML UDC GT SCH ×2 (08:50→20:39)
[2020-01-03] MEDS: ACIDOPHILUS/BULGARICUS CHEW TAB GT SCH ×2 (08:50→20:32)
[2020-01-03] MEDS: COD LIVER OIL/ZINC OXIDE OINT 113 GM TUBE TP SCH ×2 (08:52→20:34)
[2020-01-03] MEDS: NUTRISOURCE FIBER 4 GM PACKET GT SCH (08:52)
[2020-01-03] MEDS: AMLODIPINE 10 MG TABLET GT SCH (08:52)
[2020-01-03] MEDS: METOPROLOL TARTRATE 50 MG TABLET GT SCH ×2 (08:52→20:32)
[2020-01-03] MEDS: CLINDAMYCIN TP SCH (08:53)
[2020-01-03] MEDS: NEOMY/BACITRA/POLYMYXIN B OINT UD PACKET TP SCH ×2 (08:53→20:34)
[2020-01-03] MEDS: HYDROGEN PEROXIDE 3% 118 ML BOTTLE TOP SCH ×2 (09:00→21:28)
[2020-01-03] MEDS: BACLOFEN 10 MG TABLET GT SCH ×2 (10:43→20:32)
[2020-01-03] MEDS: JEVITY 1.2 1000 ML LIQUID GT PRN (15:14)
--- NOTE | 2020-01-03 17:00 | NUR ---
Assisted video chat with pt's mother at this time.
[2020-01-03] MEDS: FERROUS SULFATE 330 MG/7.5 ML UDC- FOR SA ONLY GT SCH (20:32)
[2020-01-03] MEDS: MELATONIN 5MG TABLET GT SCH (20:33)
[2020-01-03] MEDS: MULTIVIT, IRON, MIN NO. 8, FA TABLET GT SCH (20:33)
[2020-01-03] MEDS: MINERAL OIL/PETROLATUM,WHITE 57 GM TUBE TP SCH (20:34)
[2020-01-03] MEDS: ADAPALENE 0.3% TP SCH (20:34)
[2020-01-03] MEDS: RIVAROXABAN 10 MG TABLET GT SCH (21:58)
[2020-01-03 22:06] VITALS: BP 109/50
[2020-01-04] MEDS: FAMOTIDINE 20 MG TABLET GT SCH (06:17)
[2020-01-04 07:36] VITALS: BP 116/62
[2020-01-04] MEDS: levETIRAcetam 500 MG/5 ML LIQUID UDC GT SCH ×2 (08:00→20:26)
[2020-01-04] MEDS: LACOSAMIDE 100 MG/10 ML UDC GT SCH ×2 (08:00→20:26)
[2020-01-04] MEDS: HYDROGEN PEROXIDE 3% 118 ML BOTTLE TOP SCH ×2 (09:40→21:05)
[2020-01-04] MEDS: NUTRISOURCE FIBER 4 GM PACKET GT SCH (09:41)
[2020-01-04] MEDS: AMLODIPINE 10 MG TABLET GT SCH (09:41)
[2020-01-04] MEDS: ACIDOPHILUS/BULGARICUS CHEW TAB GT SCH ×2 (09:41→20:26)
[2020-01-04] MEDS: METOPROLOL TARTRATE 50 MG TABLET GT SCH ×2 (09:41→20:27)
[2020-01-04] MEDS: NEOMY/BACITRA/POLYMYXIN B OINT UD PACKET TP SCH ×2 (09:42→20:33)
[2020-01-04] MEDS: CLINDAMYCIN TP SCH (09:42)
[2020-01-04] MEDS: COD LIVER OIL/ZINC OXIDE OINT 113 GM TUBE TP SCH ×2 (09:42→20:30)
[2020-01-04] MEDS: JEVITY 1.2 1000 ML LIQUID GT PRN (09:44)
[2020-01-04] MEDS: BACLOFEN 10 MG TABLET GT SCH ×2 (10:00→20:26)
--- NOTE | 2020-01-04 16:27 | NUR ---
Covid19 test done, Mother notified.
--- NOTE | 2020-01-04 17:48 | NUR ---
video chat provided with the family.
[2020-01-04] MEDS: FERROUS SULFATE 330 MG/7.5 ML UDC- FOR SA ONLY GT SCH (20:26)
[2020-01-04] MEDS: MELATONIN 5MG TABLET GT SCH (20:29)
[2020-01-04] MEDS: MULTIVIT, IRON, MIN NO. 8, FA TABLET GT SCH (20:29)
[2020-01-04] MEDS: RIVAROXABAN 10 MG TABLET GT SCH (20:32)
[2020-01-04] MEDS: ADAPALENE 0.3% TP SCH (20:33)
[2020-01-04] MEDS: MINERAL OIL/PETROLATUM,WHITE 57 GM TUBE TP SCH (20:33)
[2020-01-04 22:02] VITALS: BP 110/60
[2020-01-05] MEDS: JEVITY 1.2 1000 ML LIQUID GT PRN ×2 (00:57→17:28)
[2020-01-05] MEDS: FAMOTIDINE 20 MG TABLET GT SCH (05:48)
[2020-01-05 08:00] VITALS: BP 120/74
[2020-01-05] MEDS: levETIRAcetam 500 MG/5 ML LIQUID UDC GT SCH ×2 (08:56→20:22)
[2020-01-05] MEDS: METOPROLOL TARTRATE 50 MG TABLET GT SCH ×2 (08:56→20:25)
[2020-01-05] MEDS: LACOSAMIDE 100 MG/10 ML UDC GT SCH ×2 (08:56→20:23)
[2020-01-05] MEDS: ACIDOPHILUS/BULGARICUS CHEW TAB GT SCH ×2 (08:56→20:24)
[2020-01-05] MEDS: COD LIVER OIL/ZINC OXIDE OINT 113 GM TUBE TP SCH ×2 (08:57→20:25)
[2020-01-05] MEDS: AMLODIPINE 10 MG TABLET GT SCH (08:57)
[2020-01-05] MEDS: CLINDAMYCIN TP SCH (08:57)
[2020-01-05] MEDS: NUTRISOURCE FIBER 4 GM PACKET GT SCH (08:57)
[2020-01-05] MEDS: NEOMY/BACITRA/POLYMYXIN B OINT UD PACKET TP SCH ×2 (08:58→20:26)
[2020-01-05] MEDS: BACLOFEN 10 MG TABLET GT SCH ×2 (09:01→20:22)
[2020-01-05] MEDS: HYDROGEN PEROXIDE 3% 118 ML BOTTLE TOP SCH ×2 (09:16→21:20)
--- NOTE | 2020-01-05 16:30 | NUR ---
NOTIFIED RESPONSIBLE GREEN PARTY, MILI RICHMOND OF POSSIBLE COVID 19 EXPOSURE AND TESTING PLAN FOR CURRENT AND NEXT WEEK MANDATED. RESPONSIBLE GREEN PARTY VERBALIZED GOOD UNDERSTANDING.
[2020-01-05] MEDS: FERROUS SULFATE 330 MG/7.5 ML UDC- FOR SA ONLY GT SCH (20:23)
[2020-01-05] MEDS: MELATONIN 5MG TABLET GT SCH (20:25)
[2020-01-05] MEDS: MULTIVIT, IRON, MIN NO. 8, FA TABLET GT SCH (20:25)
[2020-01-05] MEDS: MINERAL OIL/PETROLATUM,WHITE 57 GM TUBE TP SCH (20:26)
[2020-01-05] MEDS: ADAPALENE 0.3% TP SCH (20:26)
[2020-01-05] MEDS: RIVAROXABAN 10 MG TABLET GT SCH (20:29)
[2020-01-05 20:47] VITALS: BP 142/68
[2020-01-06] MEDS: FAMOTIDINE 20 MG TABLET GT SCH (05:55)
[2020-01-06 07:48] LABS: BASOPHILS # (AUTO) 0.1 K/uL (0.0-8.0); BASOPHILS % (AUTO) 0.8 % (0.0-2.0); EOSINOPHILS # (AUTO) 0.6 K/uL (0.0-0.7); EOSINOPHILS % (AUTO) 6.9 % (0.0-7.0); HEMATOCRIT 40.1 % (31.2-41.9); HEMOGLOBIN 12.9 g/dL (10.9-14.3); LYMPHOCYTES # (AUTO) 2.2 K/uL (20.0-40.0); LYMPHOCYTES % (AUTO) 23.9 % (20.5-51.5); MEAN CORPUSCULAR HEMOGLOBIN 29.6 uug (24.7-32.8); MEAN CORPUSCULAR HGB CONC 32 g/dL (32.3-35.6); MEAN CORPUSCULAR VOLUME 92.1 fL (75.5-95.3); MONOCYTES # (AUTO) 0.6 K/uL (2.0-10.0); MONOCYTES % (AUTO) 6.3 % (0.0-11.0); NEUTROPHILS # (AUTO) 5.8 K/uL (1.8-8.9); NEUTROPHILS % (AUTO) 62.1 % (38.5-71.5); PLATELET COUNT (AUTO) 303 K/uL (179-408); RED BLOOD CELL COUNT(AUTO) 4.35 MIL/uL (3.63-4.92); WHITE BLOOD COUNT (AUTO) 9.3 K/uL (3.8-11.8)
[2020-01-06 07:54] LABS: CREATININE 0.6 mg/dL (0.6-1.3); PHOSPHOROUS 4.6 mg/dL (2.5-4.9); POTASSIUM 4.5 mmol/L (3.5-5.1)
[2020-01-06 08:00] VITALS: BP 108/64
[2020-01-06] MEDS: ACIDOPHILUS/BULGARICUS CHEW TAB GT SCH ×2 (08:56→20:07)
[2020-01-06] MEDS: levETIRAcetam 500 MG/5 ML LIQUID UDC GT SCH ×2 (08:56→20:06)
[2020-01-06] MEDS: LACOSAMIDE 100 MG/10 ML UDC GT SCH ×2 (08:56→20:07)
[2020-01-06] MEDS: METOPROLOL TARTRATE 50 MG TABLET GT SCH ×2 (08:57→20:07)
[2020-01-06] MEDS: AMLODIPINE 10 MG TABLET GT SCH (08:58)
[2020-01-06] MEDS: NUTRISOURCE FIBER 4 GM PACKET GT SCH (08:58)
[2020-01-06] MEDS: COD LIVER OIL/ZINC OXIDE OINT 113 GM TUBE TP SCH ×2 (08:58→20:08)
[2020-01-06] MEDS: CLINDAMYCIN TP SCH (08:58)
[2020-01-06] MEDS: NEOMY/BACITRA/POLYMYXIN B OINT UD PACKET TP SCH ×2 (08:58→20:08)
[2020-01-06] MEDS: HYDROGEN PEROXIDE 3% 118 ML BOTTLE TOP SCH ×2 (09:40→21:46)
[2020-01-06] MEDS: BACLOFEN 10 MG TABLET GT SCH ×2 (10:00→20:06)
[2020-01-06 10:14] VITALS: BP 108/64
[2020-01-06 20:00] VITALS: BP 110/73
[2020-01-06] MEDS: MELATONIN 5MG TABLET GT SCH (20:07)
[2020-01-06] MEDS: FERROUS SULFATE 330 MG/7.5 ML UDC- FOR SA ONLY GT SCH (20:07)
[2020-01-06] MEDS: ADAPALENE 0.3% TP SCH (20:08)
[2020-01-06] MEDS: MINERAL OIL/PETROLATUM,WHITE 57 GM TUBE TP SCH (20:08)
[2020-01-06] MEDS: MULTIVIT, IRON, MIN NO. 8, FA TABLET GT SCH (20:08)
[2020-01-06] MEDS: RIVAROXABAN 10 MG TABLET GT SCH (20:10)
[2020-01-07] MEDS: JEVITY 1.2 1000 ML LIQUID GT PRN (01:37)
--- NOTE | 2020-01-07 03:00 | NUR ---
responsible libertarian Abdoul Gupta notified ,COVID 19 Result is negative.
[2020-01-07] MEDS: FAMOTIDINE 20 MG TABLET GT SCH (05:52)
[2020-01-07 08:00] VITALS: BP 118/72
[2020-01-07] MEDS: levETIRAcetam 500 MG/5 ML LIQUID UDC GT SCH ×2 (08:00→20:10)
[2020-01-07] MEDS: LACOSAMIDE 100 MG/10 ML UDC GT SCH ×2 (08:00→20:10)
[2020-01-07] MEDS: HYDROGEN PEROXIDE 3% 118 ML BOTTLE TOP SCH ×2 (09:23→20:13)
[2020-01-07] MEDS: COD LIVER OIL/ZINC OXIDE OINT 113 GM TUBE TP SCH ×2 (09:39→20:14)
[2020-01-07] MEDS: NEOMY/BACITRA/POLYMYXIN B OINT UD PACKET TP SCH ×2 (09:39→20:14)
[2020-01-07] MEDS: AMLODIPINE 10 MG TABLET GT SCH (09:39)
[2020-01-07] MEDS: NUTRISOURCE FIBER 4 GM PACKET GT SCH (09:39)
[2020-01-07] MEDS: BACLOFEN 10 MG TABLET GT SCH ×2 (09:39→20:10)
[2020-01-07] MEDS: ACIDOPHILUS/BULGARICUS CHEW TAB GT SCH ×2 (09:39→20:11)
[2020-01-07] MEDS: METOPROLOL TARTRATE 50 MG TABLET GT SCH ×2 (09:39→20:11)
[2020-01-07] MEDS: CLINDAMYCIN TP SCH (09:39)
--- NOTE | 2020-01-07 16:30 | NUR ---
Provided video chat to pt. and her mother with no problem noted, kept pt clean and comfortable, all needs attended.
[2020-01-07] MEDS: MULTIVIT, IRON, MIN NO. 8, FA TABLET GT SCH (20:11)
[2020-01-07] MEDS: MELATONIN 5MG TABLET GT SCH (20:11)
[2020-01-07] MEDS: FERROUS SULFATE 330 MG/7.5 ML UDC- FOR SA ONLY GT SCH (20:11)
[2020-01-07] MEDS: RIVAROXABAN 10 MG TABLET GT SCH (20:13)
[2020-01-07] MEDS: ADAPALENE 0.3% TP SCH (20:14)
[2020-01-07] MEDS: MINERAL OIL/PETROLATUM,WHITE 57 GM TUBE TP SCH (20:14)
[2020-01-07 20:58] VITALS: BP 147/64
[2020-01-08] MEDS: FAMOTIDINE 20 MG TABLET GT SCH (05:16)
[2020-01-08 08:00] VITALS: BP 122/59
[2020-01-08] MEDS: LACOSAMIDE 100 MG/10 ML UDC GT SCH ×2 (08:46→20:22)
[2020-01-08] MEDS: METOPROLOL TARTRATE 50 MG TABLET GT SCH ×2 (08:46→20:22)
[2020-01-08] MEDS: levETIRAcetam 500 MG/5 ML LIQUID UDC GT SCH ×2 (08:46→20:22)
[2020-01-08] MEDS: AMLODIPINE 10 MG TABLET GT SCH (08:46)
[2020-01-08] MEDS: ACIDOPHILUS/BULGARICUS CHEW TAB GT SCH ×2 (08:46→20:22)
[2020-01-08] MEDS: NUTRISOURCE FIBER 4 GM PACKET GT SCH (08:47)
[2020-01-08] MEDS: COD LIVER OIL/ZINC OXIDE OINT 113 GM TUBE TP SCH ×2 (08:47→20:22)
[2020-01-08] MEDS: CLINDAMYCIN TP SCH (08:47)
[2020-01-08] MEDS: NEOMY/BACITRA/POLYMYXIN B OINT UD PACKET TP SCH ×2 (08:47→20:23)
[2020-01-08] MEDS: BACLOFEN 10 MG TABLET GT SCH ×2 (09:13→20:22)
[2020-01-08] MEDS: HYDROGEN PEROXIDE 3% 118 ML BOTTLE TOP SCH (10:30)
--- NOTE | 2020-01-08 15:00 | NUR ---
SEEN BY DR. FORREST AND WITH NNO.
--- NOTE | 2020-01-08 16:30 | NUR ---
Provided video chat to pt. and her mother , pt's mother remains to pass the time limit clearly given to them, pt remains comfortable, all needs attended.
[2020-01-08 20:00] VITALS: BP 112/61
[2020-01-08] MEDS: MULTIVIT, IRON, MIN NO. 8, FA TABLET GT SCH (20:22)
[2020-01-08] MEDS: ADAPALENE 0.3% TP SCH (20:22)
[2020-01-08] MEDS: FERROUS SULFATE 330 MG/7.5 ML UDC- FOR SA ONLY GT SCH (20:22)
[2020-01-08] MEDS: MINERAL OIL/PETROLATUM,WHITE 57 GM TUBE TP SCH (20:22)
[2020-01-08] MEDS: MELATONIN 5MG TABLET GT SCH (20:22)
[2020-01-08] MEDS: RIVAROXABAN 10 MG TABLET GT SCH (20:24)
[2020-01-09] MEDS: JEVITY 1.2 1000 ML LIQUID GT PRN ×2 (05:16→21:47)
[2020-01-09] MEDS: FAMOTIDINE 20 MG TABLET GT SCH (05:16)
[2020-01-09 07:26] VITALS: BP 110/58
[2020-01-09] MEDS: LACOSAMIDE 100 MG/10 ML UDC GT SCH ×2 (08:28→20:15)
[2020-01-09] MEDS: METOPROLOL TARTRATE 50 MG TABLET GT SCH ×2 (08:28→20:30)
[2020-01-09] MEDS: ACIDOPHILUS/BULGARICUS CHEW TAB GT SCH ×2 (08:28→20:15)
[2020-01-09] MEDS: levETIRAcetam 500 MG/5 ML LIQUID UDC GT SCH ×2 (08:28→20:15)
[2020-01-09] MEDS: COD LIVER OIL/ZINC OXIDE OINT 113 GM TUBE TP SCH ×2 (08:29→20:30)
[2020-01-09] MEDS: CLINDAMYCIN TP SCH (08:29)
[2020-01-09] MEDS: NEOMY/BACITRA/POLYMYXIN B OINT UD PACKET TP SCH ×2 (08:29→20:30)
[2020-01-09] MEDS: NUTRISOURCE FIBER 4 GM PACKET GT SCH (08:29)
[2020-01-09] MEDS: AMLODIPINE 10 MG TABLET GT SCH (08:29)
[2020-01-09] MEDS: BACLOFEN 10 MG TABLET GT SCH ×2 (10:23→20:15)
[2020-01-09] MEDS: HYDROGEN PEROXIDE 3% 118 ML BOTTLE TOP SCH ×2 (10:30→21:34)
[2020-01-09] MEDS: FERROUS SULFATE 330 MG/7.5 ML UDC- FOR SA ONLY GT SCH (20:15)
[2020-01-09] MEDS: ADAPALENE 0.3% TP SCH (20:30)
[2020-01-09] MEDS: MULTIVIT, IRON, MIN NO. 8, FA TABLET GT SCH (20:30)
[2020-01-09] MEDS: MELATONIN 5MG TABLET GT SCH (20:30)
[2020-01-09] MEDS: MINERAL OIL/PETROLATUM,WHITE 57 GM TUBE TP SCH (20:30)
[2020-01-09] MEDS: RIVAROXABAN 10 MG TABLET GT SCH (20:31)
[2020-01-09 22:00] VITALS: BP 114/54
[2020-01-10] MEDS: FAMOTIDINE 20 MG TABLET GT SCH (05:20)
[2020-01-10 07:39] VITALS: BP 112/59
[2020-01-10] MEDS: levETIRAcetam 500 MG/5 ML LIQUID UDC GT SCH ×2 (08:00→20:22)
[2020-01-10] MEDS: LACOSAMIDE 100 MG/10 ML UDC GT SCH ×2 (08:00→20:22)
[2020-01-10] MEDS: HYDROGEN PEROXIDE 3% 118 ML BOTTLE TOP SCH ×2 (08:42→21:43)
[2020-01-10] MEDS: METOPROLOL TARTRATE 50 MG TABLET GT SCH ×2 (09:00→20:23)
[2020-01-10] MEDS: AMLODIPINE 10 MG TABLET GT SCH (09:00)
[2020-01-10] MEDS: ACIDOPHILUS/BULGARICUS CHEW TAB GT SCH ×2 (09:38→20:22)
[2020-01-10] MEDS: NEOMY/BACITRA/POLYMYXIN B OINT UD PACKET TP SCH ×2 (09:47→20:23)
[2020-01-10] MEDS: COD LIVER OIL/ZINC OXIDE OINT 113 GM TUBE TP SCH ×2 (09:47→20:23)
[2020-01-10] MEDS: NUTRISOURCE FIBER 4 GM PACKET GT SCH (09:47)
[2020-01-10] MEDS: CLINDAMYCIN TP SCH (09:47)
[2020-01-10] MEDS: BACLOFEN 10 MG TABLET GT SCH ×2 (10:00→20:22)
[2020-01-10] MEDS: FERROUS SULFATE 330 MG/7.5 ML UDC- FOR SA ONLY GT SCH (20:22)
[2020-01-10] MEDS: MINERAL OIL/PETROLATUM,WHITE 57 GM TUBE TP SCH (20:23)
[2020-01-10] MEDS: MELATONIN 5MG TABLET GT SCH (20:23)
[2020-01-10] MEDS: ADAPALENE 0.3% TP SCH (20:23)
[2020-01-10] MEDS: MULTIVIT, IRON, MIN NO. 8, FA TABLET GT SCH (20:23)
[2020-01-10] MEDS: RIVAROXABAN 10 MG TABLET GT SCH (20:24)
[2020-01-10 22:14] VITALS: BP 114/54
[2020-01-11] MEDS: FAMOTIDINE 20 MG TABLET GT SCH (05:26)
[2020-01-11 07:49] VITALS: BP 105/35
[2020-01-11] MEDS: levETIRAcetam 500 MG/5 ML LIQUID UDC GT SCH ×2 (08:23→20:26)
[2020-01-11] MEDS: LACOSAMIDE 100 MG/10 ML UDC GT SCH ×2 (08:23→20:27)
[2020-01-11] MEDS: ACIDOPHILUS/BULGARICUS CHEW TAB GT SCH ×2 (08:24→21:20)
[2020-01-11] MEDS: CLINDAMYCIN TP SCH (08:29)
[2020-01-11] MEDS: AMLODIPINE 10 MG TABLET GT SCH (08:29)
[2020-01-11] MEDS: NUTRISOURCE FIBER 4 GM PACKET GT SCH (08:29)
[2020-01-11] MEDS: METOPROLOL TARTRATE 50 MG TABLET GT SCH ×2 (08:29→21:21)
[2020-01-11] MEDS: NEOMY/BACITRA/POLYMYXIN B OINT UD PACKET TP SCH ×2 (08:29→21:21)
[2020-01-11] MEDS: COD LIVER OIL/ZINC OXIDE OINT 113 GM TUBE TP SCH ×2 (08:29→21:21)
[2020-01-11] MEDS: HYDROGEN PEROXIDE 3% 118 ML BOTTLE TOP SCH ×2 (09:06→21:15)
[2020-01-11] MEDS: BACLOFEN 10 MG TABLET GT SCH ×2 (10:29→20:26)
[2020-01-11] MEDS: RIVAROXABAN 10 MG TABLET GT SCH (21:00)
[2020-01-11] MEDS: FERROUS SULFATE 330 MG/7.5 ML UDC- FOR SA ONLY GT SCH (21:20)
[2020-01-11] MEDS: MELATONIN 5MG TABLET GT SCH (21:21)
[2020-01-11] MEDS: MULTIVIT, IRON, MIN NO. 8, FA TABLET GT SCH (21:21)
[2020-01-11] MEDS: ADAPALENE 0.3% TP SCH (21:21)
[2020-01-11] MEDS: MINERAL OIL/PETROLATUM,WHITE 57 GM TUBE TP SCH (21:21)
[2020-01-11 22:31] VITALS: BP 129/54
[2020-01-12] MEDS: JEVITY 1.2 1000 ML LIQUID GT PRN ×2 (04:10→22:49)
[2020-01-12] MEDS: FAMOTIDINE 20 MG TABLET GT SCH (05:48)
[2020-01-12 08:00] VITALS: BP 110/62
[2020-01-12] MEDS: levETIRAcetam 500 MG/5 ML LIQUID UDC GT SCH ×2 (08:50→20:24)
[2020-01-12] MEDS: ACIDOPHILUS/BULGARICUS CHEW TAB GT SCH ×2 (08:50→21:23)
[2020-01-12] MEDS: LACOSAMIDE 100 MG/10 ML UDC GT SCH ×2 (08:50→20:24)
[2020-01-12] MEDS: NEOMY/BACITRA/POLYMYXIN B OINT UD PACKET TP SCH (08:51)
[2020-01-12] MEDS: AMLODIPINE 10 MG TABLET GT SCH (08:51)
[2020-01-12] MEDS: METOPROLOL TARTRATE 50 MG TABLET GT SCH ×2 (08:51→21:24)
[2020-01-12] MEDS: NUTRISOURCE FIBER 4 GM PACKET GT SCH (08:51)
[2020-01-12] MEDS: CLINDAMYCIN TP SCH (08:51)
[2020-01-12] MEDS: COD LIVER OIL/ZINC OXIDE OINT 113 GM TUBE TP SCH ×2 (08:51→21:24)
[2020-01-12] MEDS: BACLOFEN 10 MG TABLET GT SCH ×2 (09:04→20:24)
[2020-01-12] MEDS: HYDROGEN PEROXIDE 3% 118 ML BOTTLE TOP SCH ×2 (09:28→20:46)
--- NOTE | 2020-01-12 17:08 | NUR ---
Provided video chat to pt. and her mother with no problem, Abdoul also made aware regarding covid test to be done to pt as ordered.
[2020-01-12 20:00] VITALS: BP 114/57
--- NOTE | 2020-01-12 20:30 | NUR ---
NEW ORDER FOR COVID 19 CARRIED OUT.
[2020-01-12] MEDS: RIVAROXABAN 10 MG TABLET GT SCH (21:00)
[2020-01-12] MEDS: FERROUS SULFATE 330 MG/7.5 ML UDC- FOR SA ONLY GT SCH (21:23)
[2020-01-12] MEDS: MELATONIN 5MG TABLET GT SCH (21:24)
[2020-01-12] MEDS: MULTIVIT, IRON, MIN NO. 8, FA TABLET GT SCH (21:24)
[2020-01-12] MEDS: MINERAL OIL/PETROLATUM,WHITE 57 GM TUBE TP SCH (21:24)
[2020-01-12] MEDS: ADAPALENE 0.3% TP SCH (21:25)
[2020-01-13] MEDS: FAMOTIDINE 20 MG TABLET GT SCH (06:30)
[2020-01-13 08:00] VITALS: BP 95/50
[2020-01-13] MEDS: levETIRAcetam 500 MG/5 ML LIQUID UDC GT SCH ×2 (08:36→20:35)
[2020-01-13] MEDS: ACIDOPHILUS/BULGARICUS CHEW TAB GT SCH ×2 (08:36→20:36)
[2020-01-13] MEDS: LACOSAMIDE 100 MG/10 ML UDC GT SCH ×2 (08:36→20:34)
[2020-01-13] MEDS: METOPROLOL TARTRATE 50 MG TABLET GT SCH ×2 (08:36→20:37)
[2020-01-13] MEDS: CLINDAMYCIN TP SCH (08:37)
[2020-01-13] MEDS: AMLODIPINE 10 MG TABLET GT SCH (08:37)
[2020-01-13] MEDS: COD LIVER OIL/ZINC OXIDE OINT 113 GM TUBE TP SCH ×2 (08:37→20:39)
[2020-01-13] MEDS: NUTRISOURCE FIBER 4 GM PACKET GT SCH (08:37)
[2020-01-13] MEDS: HYDROGEN PEROXIDE 3% 118 ML BOTTLE TOP SCH ×2 (09:39→20:39)
[2020-01-13] MEDS: BACLOFEN 10 MG TABLET GT SCH ×2 (10:53→20:34)
[2020-01-13 20:00] VITALS: BP 106/81
[2020-01-13] MEDS: FERROUS SULFATE 330 MG/7.5 ML UDC- FOR SA ONLY GT SCH (20:36)
[2020-01-13] MEDS: MELATONIN 5MG TABLET GT SCH (20:38)
[2020-01-13] MEDS: MULTIVIT, IRON, MIN NO. 8, FA TABLET GT SCH (20:38)
[2020-01-13] MEDS: ADAPALENE 0.3% TP SCH (20:39)
[2020-01-13] MEDS: MINERAL OIL/PETROLATUM,WHITE 57 GM TUBE TP SCH (20:39)
[2020-01-13] MEDS: RIVAROXABAN 10 MG TABLET GT SCH (20:49)
[2020-01-14] MEDS: FAMOTIDINE 20 MG TABLET GT SCH (05:11)
[2020-01-14 08:25] VITALS: BP 107/72
[2020-01-14] MEDS: levETIRAcetam 500 MG/5 ML LIQUID UDC GT SCH ×2 (08:25→20:25)
[2020-01-14] MEDS: LACOSAMIDE 100 MG/10 ML UDC GT SCH ×2 (08:26→20:26)
[2020-01-14] MEDS: ACIDOPHILUS/BULGARICUS CHEW TAB GT SCH ×2 (08:26→20:27)
[2020-01-14] MEDS: METOPROLOL TARTRATE 50 MG TABLET GT SCH ×2 (08:29→20:32)
[2020-01-14] MEDS: AMLODIPINE 10 MG TABLET GT SCH (08:29)
[2020-01-14] MEDS: COD LIVER OIL/ZINC OXIDE OINT 113 GM TUBE TP SCH ×2 (08:30→20:29)
[2020-01-14] MEDS: NUTRISOURCE FIBER 4 GM PACKET GT SCH (08:30)
[2020-01-14] MEDS: CLINDAMYCIN TP SCH (09:00)
[2020-01-14] MEDS: HYDROGEN PEROXIDE 3% 118 ML BOTTLE TOP SCH ×2 (09:46→21:29)
[2020-01-14] MEDS: JEVITY 1.2 1000 ML LIQUID GT PRN (10:45)
[2020-01-14] MEDS: BACLOFEN 10 MG TABLET GT SCH ×2 (10:45→20:26)
--- NOTE | 2020-01-14 16:30 | NUR ---
Provided video chat with pt's with pts mother.Mother had a bad connection several events tried, Charge nurse aware.
--- NOTE | 2020-01-14 17:30 | NUR ---
Video chat provided once more with pts mother since she had a bad connection.
--- NOTE | 2020-01-14 18:37 | NUR ---
Abdoul Pt's mother notified COVID 19 results is negative.
[2020-01-14 20:00] VITALS: BP 124/94
[2020-01-14] MEDS: MULTIVIT, IRON, MIN NO. 8, FA TABLET GT SCH (20:27)
[2020-01-14] MEDS: FERROUS SULFATE 330 MG/7.5 ML UDC- FOR SA ONLY GT SCH (20:27)
[2020-01-14] MEDS: MELATONIN 5MG TABLET GT SCH (20:27)
[2020-01-14] MEDS: ADAPALENE 0.3% TP SCH (20:29)
[2020-01-14] MEDS: MINERAL OIL/PETROLATUM,WHITE 57 GM TUBE TP SCH (20:29)
[2020-01-14] MEDS: RIVAROXABAN 10 MG TABLET GT SCH (20:31)
[2020-01-15] MEDS: FAMOTIDINE 20 MG TABLET GT SCH (05:35)
[2020-01-15] MEDS: JEVITY 1.2 1000 ML LIQUID GT PRN ×2 (06:00→17:56)
[2020-01-15 08:00] VITALS: BP 115/54
[2020-01-15] MEDS: levETIRAcetam 500 MG/5 ML LIQUID UDC GT SCH ×2 (08:00→20:24)
[2020-01-15] MEDS: LACOSAMIDE 100 MG/10 ML UDC GT SCH ×2 (08:00→20:24)
[2020-01-15] MEDS: METOPROLOL TARTRATE 50 MG TABLET GT SCH ×2 (09:00→20:26)
[2020-01-15] MEDS: HYDROGEN PEROXIDE 3% 118 ML BOTTLE TOP SCH ×2 (09:00→20:24)
[2020-01-15] MEDS: AMLODIPINE 10 MG TABLET GT SCH (09:00)
[2020-01-15] MEDS: ACIDOPHILUS/BULGARICUS CHEW TAB GT SCH ×2 (09:07→20:24)
[2020-01-15] MEDS: NUTRISOURCE FIBER 4 GM PACKET GT SCH (09:08)
[2020-01-15] MEDS: COD LIVER OIL/ZINC OXIDE OINT 113 GM TUBE TP SCH ×2 (09:08→20:25)
[2020-01-15] MEDS: CLINDAMYCIN TP SCH (09:09)
[2020-01-15] MEDS: BACLOFEN 10 MG TABLET GT SCH ×2 (10:00→20:24)
--- NOTE | 2020-01-15 16:20 | NUR ---
Assisted video chat with pts mother at this time.
[2020-01-15] MEDS: MELATONIN 5MG TABLET GT SCH (20:24)
[2020-01-15] MEDS: FERROUS SULFATE 330 MG/7.5 ML UDC- FOR SA ONLY GT SCH (20:24)
[2020-01-15] MEDS: MULTIVIT, IRON, MIN NO. 8, FA TABLET GT SCH (20:24)
[2020-01-15] MEDS: ADAPALENE 0.3% TP SCH (20:25)
[2020-01-15] MEDS: MINERAL OIL/PETROLATUM,WHITE 57 GM TUBE TP SCH (20:25)
[2020-01-15] MEDS: RIVAROXABAN 10 MG TABLET GT SCH (20:29)
[2020-01-15 20:36] VITALS: BP 123/97
[2020-01-16 05:20] VITALS: BP 97/61
[2020-01-16] MEDS: FAMOTIDINE 20 MG TABLET GT SCH (05:27)
[2020-01-16 07:47] VITALS: BP 119/73
[2020-01-16] MEDS: levETIRAcetam 500 MG/5 ML LIQUID UDC GT SCH ×2 (08:36→20:37)
[2020-01-16] MEDS: ACIDOPHILUS/BULGARICUS CHEW TAB GT SCH ×2 (08:37→20:37)
[2020-01-16] MEDS: LACOSAMIDE 100 MG/10 ML UDC GT SCH ×2 (08:37→20:37)
[2020-01-16] MEDS: AMLODIPINE 10 MG TABLET GT SCH (08:38)
[2020-01-16] MEDS: METOPROLOL TARTRATE 50 MG TABLET GT SCH ×2 (08:38→20:37)
[2020-01-16] MEDS: CLINDAMYCIN TP SCH (08:39)
[2020-01-16] MEDS: COD LIVER OIL/ZINC OXIDE OINT 113 GM TUBE TP SCH ×2 (08:39→21:12)
[2020-01-16] MEDS: NUTRISOURCE FIBER 4 GM PACKET GT SCH (08:39)
[2020-01-16] MEDS: HYDROGEN PEROXIDE 3% 118 ML BOTTLE TOP SCH ×2 (09:00→21:51)
[2020-01-16] MEDS: BACLOFEN 10 MG TABLET GT SCH ×2 (10:09→20:37)
[2020-01-16 12:15] VITALS: BP 100/47
[2020-01-16] MEDS: MULTIVIT, IRON, MIN NO. 8, FA TABLET GT SCH (20:37)
[2020-01-16] MEDS: FERROUS SULFATE 330 MG/7.5 ML UDC- FOR SA ONLY GT SCH (20:37)
[2020-01-16] MEDS: MELATONIN 5MG TABLET GT SCH (20:37)
[2020-01-16] MEDS: RIVAROXABAN 10 MG TABLET GT SCH (20:38)
[2020-01-16] MEDS: ADAPALENE 0.3% TP SCH (21:12)
[2020-01-16] MEDS: MINERAL OIL/PETROLATUM,WHITE 57 GM TUBE TP SCH (21:12)
[2020-01-16 22:30] VITALS: BP 115/72
[2020-01-17] MEDS: JEVITY 1.2 1000 ML LIQUID GT PRN ×2 (00:15→15:00)
[2020-01-17] MEDS: FAMOTIDINE 20 MG TABLET GT SCH (05:11)
[2020-01-17 07:43] VITALS: BP 110/69
[2020-01-17] MEDS: levETIRAcetam 500 MG/5 ML LIQUID UDC GT SCH ×2 (08:36→20:47)
[2020-01-17] MEDS: LACOSAMIDE 100 MG/10 ML UDC GT SCH ×2 (08:36→20:47)
[2020-01-17] MEDS: ACIDOPHILUS/BULGARICUS CHEW TAB GT SCH ×2 (08:38→20:47)
[2020-01-17] MEDS: METOPROLOL TARTRATE 50 MG TABLET GT SCH ×2 (08:39→20:48)
[2020-01-17] MEDS: NUTRISOURCE FIBER 4 GM PACKET GT SCH (08:39)
[2020-01-17] MEDS: COD LIVER OIL/ZINC OXIDE OINT 113 GM TUBE TP SCH ×2 (08:39→20:49)
[2020-01-17] MEDS: AMLODIPINE 10 MG TABLET GT SCH (08:39)
[2020-01-17] MEDS: CLINDAMYCIN TP SCH (08:40)
[2020-01-17] MEDS: HYDROGEN PEROXIDE 3% 118 ML BOTTLE TOP SCH ×2 (09:00→21:06)
[2020-01-17] MEDS: BACLOFEN 10 MG TABLET GT SCH ×2 (10:00→20:47)
[2020-01-17] MEDS: FERROUS SULFATE 330 MG/7.5 ML UDC- FOR SA ONLY GT SCH (20:47)
[2020-01-17] MEDS: RIVAROXABAN 10 MG TABLET GT SCH (20:48)
[2020-01-17] MEDS: MULTIVIT, IRON, MIN NO. 8, FA TABLET GT SCH (20:48)
[2020-01-17] MEDS: MELATONIN 5MG TABLET GT SCH (20:48)
[2020-01-17] MEDS: ADAPALENE 0.3% TP SCH (20:49)
[2020-01-17] MEDS: MINERAL OIL/PETROLATUM,WHITE 57 GM TUBE TP SCH (20:49)
[2020-01-17 21:43] VITALS: BP 101/58
[2020-01-18] MEDS: JEVITY 1.2 1000 ML LIQUID GT PRN ×2 (01:15→15:21)
[2020-01-18] MEDS: FAMOTIDINE 20 MG TABLET GT SCH (05:02)
[2020-01-18 07:45] VITALS: BP 105/47
[2020-01-18] MEDS: LACOSAMIDE 100 MG/10 ML UDC GT SCH ×2 (08:35→20:36)
[2020-01-18] MEDS: levETIRAcetam 500 MG/5 ML LIQUID UDC GT SCH ×2 (08:35→20:36)
[2020-01-18] MEDS: ACIDOPHILUS/BULGARICUS CHEW TAB GT SCH ×2 (08:35→20:36)
[2020-01-18] MEDS: NUTRISOURCE FIBER 4 GM PACKET GT SCH (08:36)
[2020-01-18] MEDS: AMLODIPINE 10 MG TABLET GT SCH (08:36)
[2020-01-18] MEDS: METOPROLOL TARTRATE 50 MG TABLET GT SCH ×2 (08:36→20:36)
[2020-01-18] MEDS: CLINDAMYCIN TP SCH (08:37)
[2020-01-18] MEDS: COD LIVER OIL/ZINC OXIDE OINT 113 GM TUBE TP SCH ×2 (08:37→20:36)
[2020-01-18] MEDS: HYDROGEN PEROXIDE 3% 118 ML BOTTLE TOP SCH ×2 (09:00→21:19)
[2020-01-18] MEDS: BACLOFEN 10 MG TABLET GT SCH ×2 (09:08→20:36)
[2020-01-18] MEDS: ADAPALENE 0.3% TP SCH (20:36)
[2020-01-18] MEDS: MELATONIN 5MG TABLET GT SCH (20:36)
[2020-01-18] MEDS: MINERAL OIL/PETROLATUM,WHITE 57 GM TUBE TP SCH (20:36)
[2020-01-18] MEDS: MULTIVIT, IRON, MIN NO. 8, FA TABLET GT SCH (20:36)
[2020-01-18] MEDS: FERROUS SULFATE 330 MG/7.5 ML UDC- FOR SA ONLY GT SCH (20:36)
[2020-01-18] MEDS: RIVAROXABAN 10 MG TABLET GT SCH (20:37)
[2020-01-18 23:07] VITALS: BP 120/61
[2020-01-19] MEDS: FAMOTIDINE 20 MG TABLET GT SCH (05:16)
[2020-01-19 08:00] VITALS: BP 114/55
[2020-01-19] MEDS: LACOSAMIDE 100 MG/10 ML UDC GT SCH ×2 (08:23→20:30)
[2020-01-19] MEDS: levETIRAcetam 500 MG/5 ML LIQUID UDC GT SCH ×2 (08:23→20:30)
[2020-01-19] MEDS: ACIDOPHILUS/BULGARICUS CHEW TAB GT SCH ×2 (08:23→20:31)
[2020-01-19] MEDS: METOPROLOL TARTRATE 50 MG TABLET GT SCH ×3 (08:24→20:31)
[2020-01-19] MEDS: NUTRISOURCE FIBER 4 GM PACKET GT SCH (08:27)
[2020-01-19] MEDS: CLINDAMYCIN TP SCH (08:27)
[2020-01-19] MEDS: AMLODIPINE 10 MG TABLET GT SCH ×2 (08:27→08:32)
[2020-01-19] MEDS: COD LIVER OIL/ZINC OXIDE OINT 113 GM TUBE TP SCH ×2 (08:27→20:32)
[2020-01-19] MEDS: HYDROGEN PEROXIDE 3% 118 ML BOTTLE TOP SCH ×2 (09:16→21:20)
[2020-01-19] MEDS: BACLOFEN 10 MG TABLET GT SCH ×2 (10:01→20:30)
[2020-01-19] MEDS: JEVITY 1.2 1000 ML LIQUID GT PRN (14:24)
--- NOTE | 2020-01-19 17:15 | NUR ---
zoom meeting provided to pt's mother. pt was awake, calm, no signs of distress, and relax. will continue to monitor.
[2020-01-19] MEDS: MELATONIN 5MG TABLET GT SCH (20:31)
[2020-01-19] MEDS: MULTIVIT, IRON, MIN NO. 8, FA TABLET GT SCH (20:31)
[2020-01-19] MEDS: FERROUS SULFATE 330 MG/7.5 ML UDC- FOR SA ONLY GT SCH (20:31)
[2020-01-19] MEDS: ADAPALENE 0.3% TP SCH (20:32)
[2020-01-19] MEDS: MINERAL OIL/PETROLATUM,WHITE 57 GM TUBE TP SCH (20:32)
[2020-01-19] MEDS: RIVAROXABAN 10 MG TABLET GT SCH (21:58)
[2020-01-19 22:54] VITALS: BP 128/45
[2020-01-20] MEDS: FAMOTIDINE 20 MG TABLET GT SCH (05:53)
[2020-01-20] MEDS: JEVITY 1.2 1000 ML LIQUID GT PRN (05:53)
[2020-01-20 08:00] VITALS: BP 104/52
[2020-01-20] MEDS: ACIDOPHILUS/BULGARICUS CHEW TAB GT SCH ×2 (08:53→20:49)
[2020-01-20] MEDS: levETIRAcetam 500 MG/5 ML LIQUID UDC GT SCH ×2 (08:53→20:48)
[2020-01-20] MEDS: LACOSAMIDE 100 MG/10 ML UDC GT SCH ×2 (08:53→20:51)
[2020-01-20] MEDS: COD LIVER OIL/ZINC OXIDE OINT 113 GM TUBE TP SCH ×2 (08:54→20:50)
[2020-01-20] MEDS: METOPROLOL TARTRATE 50 MG TABLET GT SCH ×2 (08:54→20:49)
[2020-01-20] MEDS: NUTRISOURCE FIBER 4 GM PACKET GT SCH (08:54)
[2020-01-20] MEDS: AMLODIPINE 10 MG TABLET GT SCH (08:54)
[2020-01-20] MEDS: CLINDAMYCIN TP SCH (08:54)
[2020-01-20] MEDS: HYDROGEN PEROXIDE 3% 118 ML BOTTLE TOP SCH ×2 (08:58→21:00)
[2020-01-20] MEDS: BACLOFEN 10 MG TABLET GT SCH ×2 (10:08→20:48)
--- NOTE | 2020-01-20 17:30 | NUR ---
zoom meeting provided to pt's mother. pt was awake, calm, no signs of distress, and relax. will continue to monitor
[2020-01-20 20:29] VITALS: BP_SYST 107; BP_SYST 140; BP_DIAS 61; BP_DIAS 87
[2020-01-20] MEDS: FERROUS SULFATE 330 MG/7.5 ML UDC- FOR SA ONLY GT SCH (20:48)
[2020-01-20] MEDS: MELATONIN 5MG TABLET GT SCH (20:50)
[2020-01-20] MEDS: MINERAL OIL/PETROLATUM,WHITE 57 GM TUBE TP SCH (20:50)
[2020-01-20] MEDS: MULTIVIT, IRON, MIN NO. 8, FA TABLET GT SCH (20:50)
[2020-01-20] MEDS: ADAPALENE 0.3% TP SCH (20:50)
[2020-01-20] MEDS: RIVAROXABAN 10 MG TABLET GT SCH (21:00)
[2020-01-21] MEDS: JEVITY 1.2 1000 ML LIQUID GT PRN ×2 (06:49→16:16)
[2020-01-21] MEDS: FAMOTIDINE 20 MG TABLET GT SCH (06:49)
[2020-01-21 08:00] VITALS: BP 104/58
[2020-01-21] MEDS: METOPROLOL TARTRATE 50 MG TABLET GT SCH ×2 (08:17→20:43)
[2020-01-21] MEDS: NUTRISOURCE FIBER 4 GM PACKET GT SCH (08:18)
[2020-01-21] MEDS: COD LIVER OIL/ZINC OXIDE OINT 113 GM TUBE TP SCH ×2 (08:18→20:44)
[2020-01-21] MEDS: AMLODIPINE 10 MG TABLET GT SCH (08:18)
[2020-01-21] MEDS: ACIDOPHILUS/BULGARICUS CHEW TAB GT SCH ×2 (08:19→20:42)
[2020-01-21] MEDS: LACOSAMIDE 100 MG/10 ML UDC GT SCH ×2 (08:19→20:42)
[2020-01-21] MEDS: CLINDAMYCIN TP SCH (08:19)
[2020-01-21] MEDS: levETIRAcetam 500 MG/5 ML LIQUID UDC GT SCH ×2 (08:19→20:42)
[2020-01-21] MEDS: HYDROGEN PEROXIDE 3% 118 ML BOTTLE TOP SCH ×2 (09:00→21:01)
[2020-01-21] MEDS: BACLOFEN 10 MG TABLET GT SCH ×2 (10:15→20:42)
--- NOTE | 2020-01-21 11:31 | NUR ---
This SW notified patient's mother Abdoul via email that the next IDT meeting for the patient has been scheduled for 01/27/2020 at 11am. SW asked Sarahstevedevin to let this SW know if she would like to participate in the meeting through speaker phone. SW waiting to hear back from patient's mother.
--- NOTE | 2020-01-21 16:00 | NUR ---
Informed Abdoul of [facility] decision regarding her request for 5 people gathering on the parking lot below Pt's window for SundayJanuary 23. [facility] unable to accommodate request at this point due to possible liability issues. Informed via phone and email.
[2020-01-21 20:03] VITALS: BP 120/59
[2020-01-21] MEDS: RIVAROXABAN 10 MG TABLET GT SCH (20:27)
[2020-01-21] MEDS: FERROUS SULFATE 330 MG/7.5 ML UDC- FOR SA ONLY GT SCH (20:42)
[2020-01-21] MEDS: MELATONIN 5MG TABLET GT SCH (20:44)
[2020-01-21] MEDS: MINERAL OIL/PETROLATUM,WHITE 57 GM TUBE TP SCH (20:44)
[2020-01-21] MEDS: ADAPALENE 0.3% TP SCH (20:44)
[2020-01-21] MEDS: MULTIVIT, IRON, MIN NO. 8, FA TABLET GT SCH (20:44)
[2020-01-22] MEDS: FAMOTIDINE 20 MG TABLET GT SCH (06:40)
[2020-01-22] MEDS: HYDROGEN PEROXIDE 3% 118 ML BOTTLE TOP SCH ×2 (07:09→21:04)
[2020-01-22 08:00] VITALS: BP 115/65
[2020-01-22] MEDS: LACOSAMIDE 100 MG/10 ML UDC GT SCH ×2 (08:35→20:07)
[2020-01-22] MEDS: levETIRAcetam 500 MG/5 ML LIQUID UDC GT SCH ×2 (08:35→20:05)
[2020-01-22] MEDS: ACIDOPHILUS/BULGARICUS CHEW TAB GT SCH ×2 (08:36→20:07)
[2020-01-22] MEDS: METOPROLOL TARTRATE 50 MG TABLET GT SCH ×2 (08:37→21:27)
[2020-01-22] MEDS: COD LIVER OIL/ZINC OXIDE OINT 113 GM TUBE TP SCH ×2 (08:38→20:09)
[2020-01-22] MEDS: AMLODIPINE 10 MG TABLET GT SCH (08:38)
[2020-01-22] MEDS: NUTRISOURCE FIBER 4 GM PACKET GT SCH (08:38)
[2020-01-22] MEDS: CLINDAMYCIN TP SCH (08:39)
[2020-01-22] MEDS: BACLOFEN 10 MG TABLET GT SCH ×2 (10:40→20:07)
[2020-01-22] MEDS: JEVITY 1.2 1000 ML LIQUID GT PRN (11:21)
--- NOTE | 2020-01-22 15:00 | NUR ---
SEEN BY DR. FORREST AND WITH NNO.
[2020-01-22 20:00] VITALS: BP 116/63
[2020-01-22] MEDS: FERROUS SULFATE 330 MG/7.5 ML UDC- FOR SA ONLY GT SCH (20:07)
[2020-01-22] MEDS: MELATONIN 5MG TABLET GT SCH (20:07)
[2020-01-22] MEDS: MULTIVIT, IRON, MIN NO. 8, FA TABLET GT SCH (20:08)
[2020-01-22] MEDS: ADAPALENE 0.3% TP SCH (20:09)
[2020-01-22] MEDS: RIVAROXABAN 10 MG TABLET GT SCH (20:09)
[2020-01-22] MEDS: MINERAL OIL/PETROLATUM,WHITE 57 GM TUBE TP SCH (20:09)
[2020-01-23] MEDS: JEVITY 1.2 1000 ML LIQUID GT PRN ×2 (03:56→21:50)
[2020-01-23] MEDS: FAMOTIDINE 20 MG TABLET GT SCH (05:22)
[2020-01-23] MEDS: HYDROGEN PEROXIDE 3% 118 ML BOTTLE TOP SCH ×2 (07:13→21:35)
[2020-01-23 08:00] VITALS: BP 104/58
[2020-01-23] MEDS: LACOSAMIDE 100 MG/10 ML UDC GT SCH ×2 (08:35→20:09)
[2020-01-23] MEDS: levETIRAcetam 500 MG/5 ML LIQUID UDC GT SCH ×2 (08:35→20:08)
[2020-01-23] MEDS: METOPROLOL TARTRATE 50 MG TABLET GT SCH ×2 (08:36→20:09)
[2020-01-23] MEDS: ACIDOPHILUS/BULGARICUS CHEW TAB GT SCH ×2 (08:36→20:09)
[2020-01-23] MEDS: NUTRISOURCE FIBER 4 GM PACKET GT SCH (08:37)
[2020-01-23] MEDS: CLINDAMYCIN TP SCH (08:37)
[2020-01-23] MEDS: AMLODIPINE 10 MG TABLET GT SCH (08:37)
[2020-01-23] MEDS: COD LIVER OIL/ZINC OXIDE OINT 113 GM TUBE TP SCH ×2 (08:37→20:11)
[2020-01-23] MEDS: BACLOFEN 10 MG TABLET GT SCH ×2 (10:42→20:09)
--- NOTE | 2020-01-23 11:52 | NUR ---
Contacted Abdoul. Marileedevin was informed that she will be able to have 2 ZOOM VIDEO sessions of 15 minutes each for 01/24/2020 as it is her daughter's birthday. Abdoul returned verbal understanding and agreement.
[2020-01-23] MEDS: MULTIVIT, IRON, MIN NO. 8, FA TABLET GT SCH (20:09)
[2020-01-23] MEDS: MELATONIN 5MG TABLET GT SCH (20:09)
[2020-01-23] MEDS: FERROUS SULFATE 330 MG/7.5 ML UDC- FOR SA ONLY GT SCH (20:09)
[2020-01-23] MEDS: MINERAL OIL/PETROLATUM,WHITE 57 GM TUBE TP SCH (20:11)
[2020-01-23] MEDS: RIVAROXABAN 10 MG TABLET GT SCH (20:13)
[2020-01-23 20:20] VITALS: BP 147/73
[2020-01-23] MEDS: ADAPALENE 0.3% TP SCH (21:57)
[2020-01-24] MEDS: FAMOTIDINE 20 MG TABLET GT SCH (05:05)
[2020-01-24 07:48] VITALS: BP 139/74
[2020-01-24] MEDS: ACIDOPHILUS/BULGARICUS CHEW TAB GT SCH ×2 (08:38→20:00)
[2020-01-24] MEDS: LACOSAMIDE 100 MG/10 ML UDC GT SCH ×2 (08:38→20:00)
[2020-01-24] MEDS: levETIRAcetam 500 MG/5 ML LIQUID UDC GT SCH ×2 (08:38→20:00)
[2020-01-24] MEDS: METOPROLOL TARTRATE 50 MG TABLET GT SCH ×2 (08:39→20:02)
[2020-01-24] MEDS: AMLODIPINE 10 MG TABLET GT SCH (08:39)
[2020-01-24] MEDS: NUTRISOURCE FIBER 4 GM PACKET GT SCH (08:39)
[2020-01-24] MEDS: COD LIVER OIL/ZINC OXIDE OINT 113 GM TUBE TP SCH ×2 (08:40→20:02)
[2020-01-24] MEDS: CLINDAMYCIN TP SCH (08:40)
[2020-01-24] MEDS: HYDROGEN PEROXIDE 3% 118 ML BOTTLE TOP SCH ×2 (09:00→21:34)
[2020-01-24] MEDS: BACLOFEN 10 MG TABLET GT SCH ×2 (10:41→20:00)
--- NOTE | 2020-01-24 17:15 | NUR ---
Provided video chat to pt and her mother/ and brother., pt clean and comfortable, all needs attended and anticipated.
[2020-01-24] MEDS: FERROUS SULFATE 330 MG/7.5 ML UDC- FOR SA ONLY GT SCH (20:00)
[2020-01-24] MEDS: MELATONIN 5MG TABLET GT SCH (20:02)
[2020-01-24] MEDS: MULTIVIT, IRON, MIN NO. 8, FA TABLET GT SCH (20:02)
[2020-01-24] MEDS: ADAPALENE 0.3% TP SCH (20:02)
[2020-01-24] MEDS: MINERAL OIL/PETROLATUM,WHITE 57 GM TUBE TP SCH (20:02)
[2020-01-24 20:19] VITALS: BP 122/62
[2020-01-24] MEDS: RIVAROXABAN 10 MG TABLET GT SCH (20:22)
[2020-01-25] MEDS: FAMOTIDINE 20 MG TABLET GT SCH (05:11)
[2020-01-25] MEDS: JEVITY 1.2 1000 ML LIQUID GT PRN ×2 (05:11→23:49)
[2020-01-25] MEDS: HYDROGEN PEROXIDE 3% 118 ML BOTTLE TOP SCH ×2 (07:49→21:17)
[2020-01-25] MEDS: levETIRAcetam 500 MG/5 ML LIQUID UDC GT SCH ×2 (08:44→20:30)
[2020-01-25] MEDS: LACOSAMIDE 100 MG/10 ML UDC GT SCH ×2 (08:45→20:30)
[2020-01-25] MEDS: ACIDOPHILUS/BULGARICUS CHEW TAB GT SCH ×2 (08:45→21:05)
[2020-01-25] MEDS: NUTRISOURCE FIBER 4 GM PACKET GT SCH (08:46)
[2020-01-25] MEDS: AMLODIPINE 10 MG TABLET GT SCH (08:46)
[2020-01-25] MEDS: CLINDAMYCIN TP SCH (08:46)
[2020-01-25] MEDS: COD LIVER OIL/ZINC OXIDE OINT 113 GM TUBE TP SCH ×2 (08:46→21:06)
[2020-01-25] MEDS: METOPROLOL TARTRATE 50 MG TABLET GT SCH ×2 (08:46→21:06)
[2020-01-25] MEDS: BACLOFEN 10 MG TABLET GT SCH ×2 (10:00→20:30)
--- NOTE | 2020-01-25 17:25 | NUR ---
Provided video chat to pt. and her mother with no problem noted, kept pt clean and comfortable.
[2020-01-25 20:02] VITALS: BP 119/65
[2020-01-25] MEDS: RIVAROXABAN 10 MG TABLET GT SCH (21:00)
[2020-01-25] MEDS: FERROUS SULFATE 330 MG/7.5 ML UDC- FOR SA ONLY GT SCH (21:05)
[2020-01-25] MEDS: ADAPALENE 0.3% TP SCH (21:06)
[2020-01-25] MEDS: MULTIVIT, IRON, MIN NO. 8, FA TABLET GT SCH (21:06)
[2020-01-25] MEDS: MINERAL OIL/PETROLATUM,WHITE 57 GM TUBE TP SCH (21:06)
[2020-01-25] MEDS: MELATONIN 5MG TABLET GT SCH (21:06)
--- NOTE | 2020-01-25 22:59 | NUR ---
Seen and examined by MARISOL Osborne with No new orders.
[2020-01-26] MEDS: FAMOTIDINE 20 MG TABLET GT SCH (05:53)
[2020-01-26 07:53] VITALS: BP 127/73
[2020-01-26] MEDS: levETIRAcetam 500 MG/5 ML LIQUID UDC GT SCH ×2 (08:55→20:21)
[2020-01-26] MEDS: LACOSAMIDE 100 MG/10 ML UDC GT SCH ×2 (08:55→20:21)
[2020-01-26] MEDS: ACIDOPHILUS/BULGARICUS CHEW TAB GT SCH ×2 (08:56→21:49)
[2020-01-26] MEDS: NUTRISOURCE FIBER 4 GM PACKET GT SCH (08:57)
[2020-01-26] MEDS: COD LIVER OIL/ZINC OXIDE OINT 113 GM TUBE TP SCH ×2 (08:57→21:50)
[2020-01-26] MEDS: METOPROLOL TARTRATE 50 MG TABLET GT SCH ×2 (08:57→21:50)
[2020-01-26] MEDS: AMLODIPINE 10 MG TABLET GT SCH (08:57)
[2020-01-26] MEDS: CLINDAMYCIN TP SCH (08:57)
[2020-01-26] MEDS: HYDROGEN PEROXIDE 3% 118 ML BOTTLE TOP SCH ×2 (09:00→21:28)
[2020-01-26] MEDS: BACLOFEN 10 MG TABLET GT SCH ×2 (09:00→20:21)
--- NOTE | 2020-01-26 11:05 | NUR ---
NEW ORDER FROM NANCY Graham FOR COVID19 ,PT'S MOTHER AWARE AND IN AGREEMENT AND CARRIED OUT.
[2020-01-26 20:30] VITALS: BP 110/73
[2020-01-26] MEDS: FERROUS SULFATE 330 MG/7.5 ML UDC- FOR SA ONLY GT SCH (21:49)
[2020-01-26] MEDS: MULTIVIT, IRON, MIN NO. 8, FA TABLET GT SCH (21:50)
[2020-01-26] MEDS: MELATONIN 5MG TABLET GT SCH (21:50)
[2020-01-26] MEDS: ADAPALENE 0.3% TP SCH (21:50)
[2020-01-26] MEDS: MINERAL OIL/PETROLATUM,WHITE 57 GM TUBE TP SCH (21:50)
[2020-01-26] MEDS: RIVAROXABAN 10 MG TABLET GT SCH (21:52)
[2020-01-27] MEDS: FAMOTIDINE 20 MG TABLET GT SCH (05:35)
[2020-01-27 06:32] LABS: BASOPHILS % (AUTO) 0.8 % (0.0-2.0); EOSINOPHILS # (AUTO) 0.4 K/uL (0.0-0.7); EOSINOPHILS % (AUTO) 5.9 % (0.0-7.0); HEMATOCRIT 37.2 % (31.2-41.9); HEMOGLOBIN 12.5 g/dL (10.9-14.3); LYMPHOCYTES # (AUTO) 1.7 K/uL (20.0-40.0); LYMPHOCYTES % (AUTO) 26.7 % (20.5-51.5); MEAN CORPUSCULAR HGB CONC 34 g/dL (32.3-35.6); MEAN CORPUSCULAR VOLUME 89.4 fL (75.5-95.3); MONOCYTES # (AUTO) 0.6 K/uL (2.0-10.0); MONOCYTES % (AUTO) 9.2 % (0.0-11.0); NEUTROPHILS # (AUTO) 3.6 K/uL (1.8-8.9); NEUTROPHILS % (AUTO) 57.4 % (38.5-71.5); PLATELET COUNT (AUTO) 290 K/uL (179-408); RED BLOOD CELL COUNT(AUTO) 4.16 MIL/uL (3.63-4.92); WHITE BLOOD COUNT (AUTO) 6.2 K/uL (3.8-11.8)
[2020-01-27 06:42] LABS: CREATININE 0.7 mg/dL (0.6-1.3); PHOSPHOROUS 4.7 mg/dL (2.5-4.9); POTASSIUM 4.2 mmol/L (3.5-5.1)
[2020-01-27] MEDS: JEVITY 1.2 1000 ML LIQUID GT PRN ×2 (06:53→23:15)
[2020-01-27 08:00] VITALS: BP 122/41
[2020-01-27] MEDS: LACOSAMIDE 100 MG/10 ML UDC GT SCH ×2 (08:55→20:57)
[2020-01-27] MEDS: levETIRAcetam 500 MG/5 ML LIQUID UDC GT SCH ×2 (08:55→20:57)
[2020-01-27] MEDS: ACIDOPHILUS/BULGARICUS CHEW TAB GT SCH ×2 (08:56→20:57)
[2020-01-27] MEDS: CLINDAMYCIN TP SCH (08:57)
[2020-01-27] MEDS: AMLODIPINE 10 MG TABLET GT SCH (08:57)
[2020-01-27] MEDS: NUTRISOURCE FIBER 4 GM PACKET GT SCH (08:57)
[2020-01-27] MEDS: COD LIVER OIL/ZINC OXIDE OINT 113 GM TUBE TP SCH ×2 (08:57→21:04)
[2020-01-27] MEDS: METOPROLOL TARTRATE 50 MG TABLET GT SCH ×2 (08:57→20:58)
[2020-01-27] MEDS: HYDROGEN PEROXIDE 3% 118 ML BOTTLE TOP SCH ×2 (09:00→21:53)
[2020-01-27] MEDS: BACLOFEN 10 MG TABLET GT SCH ×2 (09:50→20:57)
--- NOTE | 2020-01-27 10:58 | NUR ---
SW received an email this morning, from patient's mother Abdoul, in response to the email that this SW sent Abdoul on 01/21/2020, stating that she would like to participate in the IDT meeting scheduled for today, 01/27/2020. SAPNA to contact Abdoul by telephone during the meeting.
--- NOTE | 2020-01-27 13:55 | NUR ---
Received resident this morning awake and responsive with no sign and symptoms of respiratory insufficiency. Trach and oral care given. Changed trach tie and 4x4 gauze and inner cannula without incident. Suctioned for minimal to moderate amount of clear white secretions. Breath sounds reveal diminished with mild rhonchi bilateral.
[2020-01-27 14:01] VITALS: BP 118/54
--- NOTE | 2020-01-27 14:23 | NUR ---
Contacted Abdoul with regards to her concerns about Pt coughing and past episode of emesis. Informed that Pt was assessed by RT and nurse without signs of distress, sob, coughing or emesis at tis time.
--- NOTE | 2020-01-27 16:11 | NUR ---
INTERDISCIPLINARY PLAN OF CARE CONFERENCE was held today. Patient's mother Abdoul participated in the IDT meeting through speaker phone. Dr. Ramos and the Interdisciplinary Team reviewed the current plan of care in detail. RN reported on patient's medical condition, and findings of most recent labs. See RN IDT conference notes. Pharmacy discussed adjustments in some medications since last IDT meeting, and reported that patient is current stable on her medications. No major changes in medical condition were reported by nursing or by other disciplines. See all other disciplines IDT notes and physician's progress notes for additional details. Marileedevin's questions were addressed by the IDT team. Abdoul then asked Dr. Ramos about wanting patient's trach to be removed. Dr. Ramos stated that it would not be safe decision and education Abdoul on the risk factors associated with removing the patient's trach at this time. Dr. Ramos also provided education on the guidelines of when a patient's trach can be safely removed. Abdoul expressed understanding, however presented argumentative at times during the meeting today.
--- NOTE | 2020-01-27 16:19 | NUR ---
During today's IDT meeting, patient's mother Abdoul questioned this SW if this SW had made the decision to restrict Marilees and clergy to visit the patient over the weekend, or to be present on the hospital grounds, as it was the patient's birthday and Abdoul wanted to have a mass for the patient. Abdoul presented accusatory as she was questioning this SW. SW explained to Abdoul that SW did not have knowledge of this request, and that all visitation restrictions were managed by administration, based on [facility] guidelines. In a mora voice, Abdoul stated "ok" and hung up abruptly. No further discussion could be held since Abdoul hung up the telephone abruptly. Please note: Abdoul made this request for visitation and/or to be present on hospital grounds with clergy to nurse lan manager Nick Goldberg. The discussion was between the two of them, and the decision was provided to Abdoul by Nick Goldberg. SW was not involved in the discussion or in the decision making process.
--- NOTE | 2020-01-27 18:00 | NUR ---
zoom meeting provided to pt's mother. pt is awake, calm, no signs of distress or no shortness of breath. Mother is aware of zoom policy for 5 minutes. PT did not have any episodes of vomiting. No emesis or coughing noted. Will continue to monitor.
[2020-01-27] MEDS: FERROUS SULFATE 330 MG/7.5 ML UDC- FOR SA ONLY GT SCH (20:57)
[2020-01-27] MEDS: MULTIVIT, IRON, MIN NO. 8, FA TABLET GT SCH (20:59)
[2020-01-27] MEDS: MELATONIN 5MG TABLET GT SCH (20:59)
--- NOTE | 2020-01-27 21:00 | NUR ---
RECEIVED PHONE CALLED FROM [facility] RESULTS IS NEGATIVE NOTED.
[2020-01-27] MEDS: RIVAROXABAN 10 MG TABLET GT SCH (21:03)
[2020-01-27] MEDS: ADAPALENE 0.3% TP SCH (21:04)
[2020-01-27] MEDS: MINERAL OIL/PETROLATUM,WHITE 57 GM TUBE TP SCH (21:04)
[2020-01-27 23:26] VITALS: BP 153/79
--- NOTE | 2020-01-28 00:26 | NUR ---
PT ON CONT P/MIST @ 28% VIA T/PIECE, PT WITH NO RESP. DISTRESS NOTED, SLIGHT TEETH GRINDING AT TIMES, NO GURGLING, SUCTION TRACH PRN, SLIGHT LIGHT PALE YELL TINGE SECRETIONS, DRAIN TUBINGS, TRACH CARE DONE, PT STABLE, NO RESP. ISSUES, B/S SLIGHT RHONCHI, CLEARING AFTER SUCTIONING.Aristides BOYLEP CHANGE P/MIST NEB H2O.D VALERIA CANOPY STRINGER Addendum: 01/28/20 at 0029 by MATT SHAW RT Amended: Links added.
[2020-01-28] MEDS: FAMOTIDINE 20 MG TABLET GT SCH (05:54)
[2020-01-28] MEDS: HYDROGEN PEROXIDE 3% 118 ML BOTTLE TOP SCH ×2 (07:20→19:30)
[2020-01-28 08:00] VITALS: BP 101/62
[2020-01-28] MEDS: levETIRAcetam 500 MG/5 ML LIQUID UDC GT SCH ×2 (08:52→20:00)
[2020-01-28] MEDS: LACOSAMIDE 100 MG/10 ML UDC GT SCH ×2 (08:52→20:00)
[2020-01-28] MEDS: METOPROLOL TARTRATE 50 MG TABLET GT SCH ×2 (08:53→21:00)
[2020-01-28] MEDS: ACIDOPHILUS/BULGARICUS CHEW TAB GT SCH ×2 (08:53→21:19)
[2020-01-28] MEDS: AMLODIPINE 10 MG TABLET GT SCH (08:53)
[2020-01-28] MEDS: CLINDAMYCIN TP SCH (08:54)
[2020-01-28] MEDS: NUTRISOURCE FIBER 4 GM PACKET GT SCH (08:54)
[2020-01-28] MEDS: COD LIVER OIL/ZINC OXIDE OINT 113 GM TUBE TP SCH ×2 (08:54→21:21)
[2020-01-28] MEDS: BACLOFEN 10 MG TABLET GT SCH ×2 (09:01→20:00)
[2020-01-28 14:00] VITALS: BP 112/64
--- NOTE | 2020-01-28 14:15 | NUR ---
PT. WAS REPOSITIONED AND DIAPER CHANGED AT THIS TIME BY LUISITO HILL AND NO DISTRESS OBSERVED PER HER REPORT.
--- NOTE | 2020-01-28 14:35 | NUR ---
SLICK. NURSE WAS NOTIFIED BY HUYEN HORNER THAT PT.STARTED CONTINUOUS RT UPPER EXTREMITY MUSCLE SPASMS AND PT. LOOKING UP CEILING .SEIZURE PRECAUTIONS KEPT AT ALL TIMES.
--- NOTE | 2020-01-28 14:45 | NUR ---
PT. MEDICATED WITH ATIVAN IV ORDERED AFTER PERIPHERAL LINE IV PLACED ON RT. HAND WITH GOOD BLOOD RETURN AT FIRST ATTEMPT.CONTINUOUSLY MONITORED ,HR. 98% ,NO DESATURATION ,NO RESPIRATORY DISTRESS,SKIN DRY AND WARM TO TOUCH WITH NO CYANOSIS.
[2020-01-28] MEDS: LORAZEPAM 2 MG/1 ML VIAL IV PRN (14:46)
--- NOTE | 2020-01-28 15:00 | NUR ---
DR. ESTRADA(NEUROLOGIST) WAS NOTIFIED AT THIS TIME AND WITH NNO AT THIS TIME D/T MUSCLE SPASMS STOPPED BUT HE STATED THAT IF THIS HAPPEN AGAIN TO CALL HIM BACK ,ALSO HE WAS AWARE OF LATEST LAB RESULTS TOO FROM YESTERDAY AND STILL NNO.
--- NOTE | 2020-01-28 15:10 | NUR ---
Pt received on 28%-Cool Aerosol via T-piece. No signs or symptoms of respiratory distress noted. Pt has equal and bilateral rhonchi breath sounds. Suctioned as needed for small amounts of white yellowish secretions. Inner cannula, trach tie, and gauze changed. Will continue to monitor.
[2020-01-28] MEDS: JEVITY 1.2 1000 ML LIQUID GT PRN (17:02)
--- NOTE | 2020-01-28 19:30 | NUR ---
Pt rec'd on C/A FIO2-28%. No respiratory distress noted. PRN SX small amounts of clear white secretions noted with no blood. C/A water changed, trach care done with drain gauze replaced. Pt to be monitored throughout the shift.
[2020-01-28] MEDS: MELATONIN 5MG TABLET GT SCH ×2 (21:00→21:20)
[2020-01-28] MEDS: RIVAROXABAN 10 MG TABLET GT SCH (21:00)
[2020-01-28] MEDS: FERROUS SULFATE 330 MG/7.5 ML UDC- FOR SA ONLY GT SCH (21:19)
[2020-01-28] MEDS: MULTIVIT, IRON, MIN NO. 8, FA TABLET GT SCH (21:20)
[2020-01-28] MEDS: ADAPALENE 0.3% TP SCH (21:21)
[2020-01-28] MEDS: MINERAL OIL/PETROLATUM,WHITE 57 GM TUBE TP SCH (21:21)
[2020-01-28 22:18] VITALS: BP 100/51
[2020-01-29] MEDS: FAMOTIDINE 20 MG TABLET GT SCH (06:14)
[2020-01-29 08:00] VITALS: BP 115/74
[2020-01-29] MEDS: levETIRAcetam 500 MG/5 ML LIQUID UDC GT SCH ×2 (08:56→20:07)
[2020-01-29] MEDS: LACOSAMIDE 100 MG/10 ML UDC GT SCH ×2 (08:56→20:07)
[2020-01-29] MEDS: ACIDOPHILUS/BULGARICUS CHEW TAB GT SCH ×2 (08:59→20:07)
[2020-01-29] MEDS: METOPROLOL TARTRATE 50 MG TABLET GT SCH ×2 (09:00→20:08)
[2020-01-29] MEDS: AMLODIPINE 10 MG TABLET GT SCH (09:01)
[2020-01-29] MEDS: NUTRISOURCE FIBER 4 GM PACKET GT SCH (09:01)
[2020-01-29] MEDS: BACLOFEN 10 MG TABLET GT SCH ×2 (09:02→20:07)
[2020-01-29] MEDS: COD LIVER OIL/ZINC OXIDE OINT 113 GM TUBE TP SCH ×2 (09:02→20:09)
[2020-01-29] MEDS: CLINDAMYCIN TP SCH (09:02)
[2020-01-29] MEDS: HYDROGEN PEROXIDE 3% 118 ML BOTTLE TOP SCH ×2 (10:30→19:38)
[2020-01-29] MEDS: JEVITY 1.2 1000 ML LIQUID GT PRN (10:56)
--- NOTE | 2020-01-29 16:52 | NUR ---
SEE RESPIRATORY PROGRESS NOTE.
[2020-01-29] MEDS: FERROUS SULFATE 330 MG/7.5 ML UDC- FOR SA ONLY GT SCH (20:07)
[2020-01-29] MEDS: MULTIVIT, IRON, MIN NO. 8, FA TABLET GT SCH (20:08)
[2020-01-29] MEDS: MELATONIN 5MG TABLET GT SCH (20:08)
[2020-01-29] MEDS: MINERAL OIL/PETROLATUM,WHITE 57 GM TUBE TP SCH (20:09)
[2020-01-29] MEDS: ADAPALENE 0.3% TP SCH (20:09)
[2020-01-29 20:19] VITALS: BP 113/68
[2020-01-29] MEDS: RIVAROXABAN 10 MG TABLET GT SCH (21:00)
--- NOTE | 2020-01-29 21:00 | NUR ---
Patient received on C/A FIO2-28%. No respiratory distress noted. PRN SX small amounts of clear white secretions noted with no blood. C/A water changed, trach care done with drain gauze replaced. Pt to be monitored throughout the shift
[2020-01-30] MEDS: JEVITY 1.2 1000 ML LIQUID GT PRN ×2 (02:00→23:44)
[2020-01-30] MEDS: FAMOTIDINE 20 MG TABLET GT SCH (05:44)
[2020-01-30 07:17] VITALS: BP 126/77
[2020-01-30] MEDS: levETIRAcetam 500 MG/5 ML LIQUID UDC GT SCH ×2 (08:31→20:38)
[2020-01-30] MEDS: LACOSAMIDE 100 MG/10 ML UDC GT SCH ×2 (08:31→20:38)
[2020-01-30] MEDS: ACIDOPHILUS/BULGARICUS CHEW TAB GT SCH ×2 (08:31→21:00)
[2020-01-30] MEDS: METOPROLOL TARTRATE 50 MG TABLET GT SCH ×2 (08:32→21:00)
[2020-01-30] MEDS: AMLODIPINE 10 MG TABLET GT SCH (08:33)
[2020-01-30] MEDS: NUTRISOURCE FIBER 4 GM PACKET GT SCH (08:33)
[2020-01-30] MEDS: CLINDAMYCIN TP SCH (08:34)
[2020-01-30] MEDS: COD LIVER OIL/ZINC OXIDE OINT 113 GM TUBE TP SCH ×2 (08:34→21:00)
[2020-01-30] MEDS: HYDROGEN PEROXIDE 3% 118 ML BOTTLE TOP SCH ×2 (08:52→21:00)
[2020-01-30] MEDS: BACLOFEN 10 MG TABLET GT SCH ×2 (10:24→20:38)
[2020-01-30 20:00] VITALS: BP 128/69
[2020-01-30] MEDS: RIVAROXABAN 10 MG TABLET GT SCH (21:00)
[2020-01-30] MEDS: FERROUS SULFATE 330 MG/7.5 ML UDC- FOR SA ONLY GT SCH (21:00)
[2020-01-30] MEDS: MULTIVIT, IRON, MIN NO. 8, FA TABLET GT SCH (21:00)
[2020-01-30] MEDS: ADAPALENE 0.3% TP SCH (21:00)
[2020-01-30] MEDS: MELATONIN 5MG TABLET GT SCH (21:00)
[2020-01-30] MEDS: MINERAL OIL/PETROLATUM,WHITE 57 GM TUBE TP SCH (21:00)
[2020-01-31] MEDS: FAMOTIDINE 20 MG TABLET GT SCH (05:36)
[2020-01-31 08:10] VITALS: BP 117/60
[2020-01-31] MEDS: levETIRAcetam 500 MG/5 ML LIQUID UDC GT SCH ×2 (08:20→20:00)
[2020-01-31] MEDS: NUTRISOURCE FIBER 4 GM PACKET GT SCH (08:21)
[2020-01-31] MEDS: CLINDAMYCIN TP SCH (08:21)
[2020-01-31] MEDS: COD LIVER OIL/ZINC OXIDE OINT 113 GM TUBE TP SCH ×2 (08:21→21:24)
[2020-01-31] MEDS: AMLODIPINE 10 MG TABLET GT SCH (08:21)
[2020-01-31] MEDS: METOPROLOL TARTRATE 50 MG TABLET GT SCH ×2 (08:22→21:00)
[2020-01-31] MEDS: LACOSAMIDE 100 MG/10 ML UDC GT SCH ×2 (08:23→20:00)
[2020-01-31] MEDS: ACIDOPHILUS/BULGARICUS CHEW TAB GT SCH ×2 (08:23→21:22)
[2020-01-31] MEDS: HYDROGEN PEROXIDE 3% 118 ML BOTTLE TOP SCH ×2 (09:36→21:24)
[2020-01-31] MEDS: BACLOFEN 10 MG TABLET GT SCH ×2 (10:39→20:00)
[2020-01-31] MEDS: JEVITY 1.2 1000 ML LIQUID GT PRN (14:49)
[2020-01-31 20:00] VITALS: BP 109/61
[2020-01-31] MEDS: MULTIVIT, IRON, MIN NO. 8, FA TABLET GT SCH (21:22)
[2020-01-31] MEDS: FERROUS SULFATE 330 MG/7.5 ML UDC- FOR SA ONLY GT SCH (21:22)
[2020-01-31] MEDS: MELATONIN 5MG TABLET GT SCH (21:22)
[2020-01-31] MEDS: RIVAROXABAN 10 MG TABLET GT SCH (21:23)
[2020-01-31] MEDS: MINERAL OIL/PETROLATUM,WHITE 57 GM TUBE TP SCH (21:24)
[2020-01-31] MEDS: ADAPALENE 0.3% TP SCH (21:24)
--- NOTE | 2020-02-01 04:50 | NUR ---
PT ON CONT P/MIST VIA T/ PIECE AT 28%, MADELINE ANNE, SUCTIONED, LIGHT PALE YELL TINGE SECRETIONS ,GOOD CPUGH EFFORT, TRACH CARE DONE, NO SOB NOTED, TEETH GRINGING AT TIMES, NO GURGLING. Aristides BOYLEP Addendum: 02/01/20 at 0452 by MATT SHAW RT Amended: Links added.
[2020-02-01] MEDS: FAMOTIDINE 20 MG TABLET GT SCH (05:09)
[2020-02-01] MEDS: levETIRAcetam 500 MG/5 ML LIQUID UDC GT SCH ×2 (07:48→20:34)
[2020-02-01] MEDS: LACOSAMIDE 100 MG/10 ML UDC GT SCH ×2 (07:48→20:34)
[2020-02-01 07:54] VITALS: BP 110/56
[2020-02-01] MEDS: COD LIVER OIL/ZINC OXIDE OINT 113 GM TUBE TP SCH ×2 (08:38→20:36)
[2020-02-01] MEDS: ACIDOPHILUS/BULGARICUS CHEW TAB GT SCH ×2 (08:38→20:34)
[2020-02-01] MEDS: METOPROLOL TARTRATE 50 MG TABLET GT SCH ×2 (08:38→20:33)
[2020-02-01] MEDS: AMLODIPINE 10 MG TABLET GT SCH (08:38)
[2020-02-01] MEDS: NUTRISOURCE FIBER 4 GM PACKET GT SCH (08:38)
[2020-02-01] MEDS: CLINDAMYCIN TP SCH (08:38)
[2020-02-01] MEDS: HYDROGEN PEROXIDE 3% 118 ML BOTTLE TOP SCH ×2 (08:58→20:35)
[2020-02-01] MEDS: BACLOFEN 10 MG TABLET GT SCH ×2 (10:28→20:34)
[2020-02-01] MEDS: JEVITY 1.2 1000 ML LIQUID GT PRN ×2 (10:43→23:22)
[2020-02-01] MEDS: FERROUS SULFATE 330 MG/7.5 ML UDC- FOR SA ONLY GT SCH (20:34)
[2020-02-01] MEDS: MULTIVIT, IRON, MIN NO. 8, FA TABLET GT SCH (20:35)
[2020-02-01] MEDS: MELATONIN 5MG TABLET GT SCH (20:35)
[2020-02-01] MEDS: ADAPALENE 0.3% TP SCH (20:36)
[2020-02-01] MEDS: MINERAL OIL/PETROLATUM,WHITE 57 GM TUBE TP SCH (20:36)
[2020-02-01] MEDS: RIVAROXABAN 10 MG TABLET GT SCH (20:37)
[2020-02-01 22:00] VITALS: BP 110/58
[2020-02-02] MEDS: FAMOTIDINE 20 MG TABLET GT SCH (05:07)
[2020-02-02 07:50] VITALS: BP 124/62
[2020-02-02] MEDS: LACOSAMIDE 100 MG/10 ML UDC GT SCH ×2 (08:02→20:30)
[2020-02-02] MEDS: levETIRAcetam 500 MG/5 ML LIQUID UDC GT SCH ×2 (08:02→20:09)
[2020-02-02] MEDS: METOPROLOL TARTRATE 50 MG TABLET GT SCH ×2 (08:02→20:31)
[2020-02-02] MEDS: ACIDOPHILUS/BULGARICUS CHEW TAB GT SCH ×2 (08:02→20:31)
[2020-02-02] MEDS: NUTRISOURCE FIBER 4 GM PACKET GT SCH (08:03)
[2020-02-02] MEDS: AMLODIPINE 10 MG TABLET GT SCH (08:03)
[2020-02-02] MEDS: COD LIVER OIL/ZINC OXIDE OINT 113 GM TUBE TP SCH ×2 (08:03→20:32)
[2020-02-02] MEDS: CLINDAMYCIN TP SCH (08:04)
[2020-02-02] MEDS: HYDROGEN PEROXIDE 3% 118 ML BOTTLE TOP SCH ×2 (08:09→21:30)
[2020-02-02] MEDS: BACLOFEN 10 MG TABLET GT SCH ×2 (10:23→20:30)
--- NOTE | 2020-02-02 16:45 | NUR ---
Pt received on 28% Cool Aerosol T-piece to trach. No s/s of respiratory distress noted. Pt has dim clear breath sounds. prn sxn'ing performed with sm/mod amounts of white yellowish thick secretions. trach care performed. aerosol tubing and drain bag cleared of rainout. Will continue to monitor.
[2020-02-02] MEDS: JEVITY 1.2 1000 ML LIQUID GT PRN (17:06)
--- NOTE | 2020-02-02 19:50 | NUR ---
Pt received on cool aerosol 28% FiO2 tolerating well. Ambubag and spare trach at bedside. Airway is patent and secured. Suctioned PRN. Will continue to monitor.
[2020-02-02] MEDS: RIVAROXABAN 10 MG TABLET GT SCH (20:09)
[2020-02-02] MEDS: FERROUS SULFATE 330 MG/7.5 ML UDC- FOR SA ONLY GT SCH (20:30)
[2020-02-02] MEDS: MELATONIN 5MG TABLET GT SCH (20:31)
[2020-02-02] MEDS: MULTIVIT, IRON, MIN NO. 8, FA TABLET GT SCH (20:32)
[2020-02-02] MEDS: ADAPALENE 0.3% TP SCH (20:32)
[2020-02-02] MEDS: MINERAL OIL/PETROLATUM,WHITE 57 GM TUBE TP SCH (20:32)
[2020-02-03] MEDS: FAMOTIDINE 20 MG TABLET GT SCH (05:44)
[2020-02-03 08:00] VITALS: BP 117/63
[2020-02-03] MEDS: ACIDOPHILUS/BULGARICUS CHEW TAB GT SCH ×2 (08:09→20:19)
[2020-02-03] MEDS: LACOSAMIDE 100 MG/10 ML UDC GT SCH ×2 (08:09→20:20)
[2020-02-03] MEDS: levETIRAcetam 500 MG/5 ML LIQUID UDC GT SCH ×2 (08:09→20:16)
[2020-02-03] MEDS: METOPROLOL TARTRATE 50 MG TABLET GT SCH ×2 (08:10→20:17)
[2020-02-03] MEDS: AMLODIPINE 10 MG TABLET GT SCH (08:11)
[2020-02-03] MEDS: NUTRISOURCE FIBER 4 GM PACKET GT SCH (08:11)
[2020-02-03] MEDS: COD LIVER OIL/ZINC OXIDE OINT 113 GM TUBE TP SCH ×2 (08:11→20:20)
[2020-02-03] MEDS: CLINDAMYCIN TP SCH (08:11)
[2020-02-03] MEDS: HYDROGEN PEROXIDE 3% 118 ML BOTTLE TOP SCH ×2 (08:34→18:48)
[2020-02-03] MEDS: BACLOFEN 10 MG TABLET GT SCH ×2 (09:05→20:16)
[2020-02-03] MEDS: JEVITY 1.2 1000 ML LIQUID GT PRN (11:18)
--- NOTE | 2020-02-03 11:44 | NUR ---
Patient's annual eye exam is due soon. This SW contacted patient's mother Abdoul via email, informing her that patient's annual eye exam is due. SAPNA asked for Abdoul to let this SW know by 02/12 if Abdoul would like for the patient to have her annual eye exam. SAPNA will wait to hear back from Abdoul.
--- NOTE | 2020-02-03 11:51 | NUR ---
SAPNA received an email response back from patient's mother Abdoul, stating that she would like for the patient to have her annual eye exam. SAPNA spoke with Laura at Dr. Rogel's office [phone], and scheduled the eye exam for 02/19/2020.
[2020-02-03] MEDS: RIVAROXABAN 10 MG TABLET GT SCH (20:17)
[2020-02-03] MEDS: FERROUS SULFATE 330 MG/7.5 ML UDC- FOR SA ONLY GT SCH (20:19)
[2020-02-03] MEDS: MULTIVIT, IRON, MIN NO. 8, FA TABLET GT SCH (20:19)
[2020-02-03] MEDS: MELATONIN 5MG TABLET GT SCH (20:19)
[2020-02-03] MEDS: ADAPALENE 0.3% TP SCH (20:20)
[2020-02-03] MEDS: MINERAL OIL/PETROLATUM,WHITE 57 GM TUBE TP SCH (20:20)
[2020-02-03 20:47] VITALS: BP 121/69
[2020-02-04] MEDS: JEVITY 1.2 1000 ML LIQUID GT PRN ×2 (01:28→17:02)
[2020-02-04] MEDS: FAMOTIDINE 20 MG TABLET GT SCH (06:11)
[2020-02-04 08:00] VITALS: BP 99/44
[2020-02-04] MEDS: LACOSAMIDE 100 MG/10 ML UDC GT SCH ×2 (08:08→20:32)
[2020-02-04] MEDS: levETIRAcetam 500 MG/5 ML LIQUID UDC GT SCH ×2 (08:08→20:32)
[2020-02-04] MEDS: AMLODIPINE 10 MG TABLET GT SCH (09:00)
[2020-02-04] MEDS: METOPROLOL TARTRATE 50 MG TABLET GT SCH ×2 (09:00→20:33)
[2020-02-04] MEDS: ACIDOPHILUS/BULGARICUS CHEW TAB GT SCH ×2 (09:23→20:32)
[2020-02-04] MEDS: NUTRISOURCE FIBER 4 GM PACKET GT SCH (09:26)
[2020-02-04] MEDS: COD LIVER OIL/ZINC OXIDE OINT 113 GM TUBE TP SCH ×2 (09:26→20:34)
[2020-02-04] MEDS: BACLOFEN 10 MG TABLET GT SCH ×2 (09:26→20:32)
[2020-02-04] MEDS: CLINDAMYCIN TP SCH (09:26)
[2020-02-04] MEDS: HYDROGEN PEROXIDE 3% 118 ML BOTTLE TOP SCH ×2 (09:30→21:00)
--- NOTE | 2020-02-04 09:30 | NUR ---
SEE RESPIRATORY PROGRESS NOTE.
[2020-02-04 14:00] VITALS: BP 115/54
[2020-02-04 20:00] VITALS: BP 106/84
[2020-02-04] MEDS: FERROUS SULFATE 330 MG/7.5 ML UDC- FOR SA ONLY GT SCH (20:32)
[2020-02-04] MEDS: MULTIVIT, IRON, MIN NO. 8, FA TABLET GT SCH (20:33)
[2020-02-04] MEDS: MELATONIN 5MG TABLET GT SCH (20:33)
[2020-02-04] MEDS: ADAPALENE 0.3% TP SCH (20:34)
[2020-02-04] MEDS: MINERAL OIL/PETROLATUM,WHITE 57 GM TUBE TP SCH (20:34)
[2020-02-04] MEDS: RIVAROXABAN 10 MG TABLET GT SCH (21:59)
--- NOTE | 2020-02-05 01:23 | NUR ---
PT ON CONT P/MIST @ 28% VIA T/PIECE, TRACH CARE DONE, GOOD COUGH EFFORT, SUCTIONED LIGHT PALE YELL TINGE SECRETIONS, DRAIN TUBINGS, CHANGED WATER FOR NEB, PT GRINDING TEETH AT TIMES, NO GURGLING, NO SOB NOTED, PT STABLE.Aristides BOYLEP Addendum: 02/05/20 at 0124 by MATT SHAW RT Amended: Links added.
[2020-02-05] MEDS: FAMOTIDINE 20 MG TABLET GT SCH (06:17)
[2020-02-05] MEDS: HYDROGEN PEROXIDE 3% 118 ML BOTTLE TOP SCH ×2 (07:37→20:41)
[2020-02-05 07:38] VITALS: BP_SYST 142; BP_SYST 147; BP_DIAS 72
[2020-02-05] MEDS: ACIDOPHILUS/BULGARICUS CHEW TAB GT SCH ×2 (08:57→20:28)
[2020-02-05] MEDS: levETIRAcetam 500 MG/5 ML LIQUID UDC GT SCH ×2 (08:57→20:28)
[2020-02-05] MEDS: LACOSAMIDE 100 MG/10 ML UDC GT SCH ×2 (08:57→20:28)
[2020-02-05] MEDS: METOPROLOL TARTRATE 50 MG TABLET GT SCH ×2 (08:57→20:28)
[2020-02-05] MEDS: AMLODIPINE 10 MG TABLET GT SCH (08:59)
[2020-02-05] MEDS: NUTRISOURCE FIBER 4 GM PACKET GT SCH (08:59)
[2020-02-05] MEDS: BACLOFEN 10 MG TABLET GT SCH ×2 (09:00→20:28)
[2020-02-05] MEDS: COD LIVER OIL/ZINC OXIDE OINT 113 GM TUBE TP SCH ×2 (09:00→20:35)
[2020-02-05] MEDS: CLINDAMYCIN TP SCH (09:00)
[2020-02-05] MEDS: JEVITY 1.2 1000 ML LIQUID GT PRN (12:17)
[2020-02-05 14:00] VITALS: BP 106/64
--- NOTE | 2020-02-05 16:00 | NUR ---
SEEN BY DR. FORREST AND WITH NNO.
[2020-02-05 20:00] VITALS: BP 113/60
[2020-02-05] MEDS: FERROUS SULFATE 330 MG/7.5 ML UDC- FOR SA ONLY GT SCH (20:28)
[2020-02-05] MEDS: MULTIVIT, IRON, MIN NO. 8, FA TABLET GT SCH (20:29)
[2020-02-05] MEDS: MELATONIN 5MG TABLET GT SCH (20:29)
[2020-02-05] MEDS: RIVAROXABAN 10 MG TABLET GT SCH (20:34)
[2020-02-05] MEDS: MINERAL OIL/PETROLATUM,WHITE 57 GM TUBE TP SCH (20:35)
[2020-02-05] MEDS: ADAPALENE 0.3% TP SCH (20:35)
--- NOTE | 2020-02-05 20:56 | NUR ---
PT ON CONT P/MIST MIST @ 28% VIA T/PIECE, SUCTIONED VERY LIGHT PALE YELL TINGE SECRETIONS, CLEAN TUBINGS, AND DRAIN BAG EMPTY, CHECK MIST AND REFILL AEROSOL, NO GURGLING, TEETH GRINDING AT TIMES, SUCTION MOUTH GENTLY WITH RUTHY SCOTT WELL, NO SOB NOTED. Aristides BOYLEP Addendum: 02/05/20 at 2057 by MATT SHAW RT Amended: Links added.
[2020-02-06] MEDS: JEVITY 1.2 1000 ML LIQUID GT PRN ×2 (03:36→20:43)
[2020-02-06] MEDS: FAMOTIDINE 20 MG TABLET GT SCH (05:23)
[2020-02-06] MEDS: HYDROGEN PEROXIDE 3% 118 ML BOTTLE TOP SCH ×2 (07:30→18:58)
[2020-02-06 07:44] VITALS: BP 113/59
[2020-02-06] MEDS: LACOSAMIDE 100 MG/10 ML UDC GT SCH ×2 (08:13→20:02)
[2020-02-06] MEDS: levETIRAcetam 500 MG/5 ML LIQUID UDC GT SCH ×2 (08:13→20:02)
[2020-02-06] MEDS: ACIDOPHILUS/BULGARICUS CHEW TAB GT SCH ×2 (08:14→20:02)
[2020-02-06] MEDS: CLINDAMYCIN TP SCH (08:15)
[2020-02-06] MEDS: COD LIVER OIL/ZINC OXIDE OINT 113 GM TUBE TP SCH ×2 (08:15→20:06)
[2020-02-06] MEDS: METOPROLOL TARTRATE 50 MG TABLET GT SCH ×2 (08:15→20:03)
[2020-02-06] MEDS: NUTRISOURCE FIBER 4 GM PACKET GT SCH (08:15)
[2020-02-06] MEDS: AMLODIPINE 10 MG TABLET GT SCH (08:15)
--- NOTE | 2020-02-06 09:00 | NUR ---
Pt on 28%-FIO2 Cool Aerosol via T-piece. Pt has bilateral and equal harvinder B/S. Suctioned small amounts of white yellow tinged secretions. Bag/valve/mask and back up trach at bedside. Will continue to monitor. Addendum: 02/06/20 at 1450 by CHERRIE MATHEWS RT No signs or symptoms of respiratory distress noted.
--- NOTE | 2020-02-06 10:00 | NUR ---
SEEN BY DR. GERARDO Graham AND WITH NEW ORDERS CARRIED OUT.
[2020-02-06] MEDS: BACLOFEN 10 MG TABLET GT SCH ×2 (10:32→20:02)
[2020-02-06 14:00] VITALS: BP 110/60
--- NOTE | 2020-02-06 17:30 | NUR ---
zoom provided to pt's mother.
[2020-02-06 20:00] VITALS: BP 117/55
[2020-02-06] MEDS: FERROUS SULFATE 330 MG/7.5 ML UDC- FOR SA ONLY GT SCH (20:02)
[2020-02-06] MEDS: MELATONIN 5MG TABLET GT SCH (20:03)
[2020-02-06] MEDS: MULTIVIT, IRON, MIN NO. 8, FA TABLET GT SCH (20:04)
[2020-02-06] MEDS: RIVAROXABAN 10 MG TABLET GT SCH (20:05)
[2020-02-06] MEDS: MINERAL OIL/PETROLATUM,WHITE 57 GM TUBE TP SCH (20:06)
[2020-02-06] MEDS: ADAPALENE 0.3% TP SCH (20:06)
[2020-02-07] MEDS: FAMOTIDINE 20 MG TABLET GT SCH (05:18)
[2020-02-07 07:30] LABS: BASOPHILS # (AUTO) 0.1 K/uL (0.0-8.0); BASOPHILS % (AUTO) 0.6 % (0.0-2.0); EOSINOPHILS # (AUTO) 0.4 K/uL (0.0-0.7); EOSINOPHILS % (AUTO) 3.7 % (0.0-7.0); HEMATOCRIT 37.4 % (31.2-41.9); HEMOGLOBIN 12.4 g/dL (10.9-14.3); LYMPHOCYTES # (AUTO) 1.9 K/uL (20.0-40.0); MEAN CORPUSCULAR HEMOGLOBIN 29.7 uug (24.7-32.8); MEAN CORPUSCULAR HGB CONC 33 g/dL (32.3-35.6); MEAN CORPUSCULAR VOLUME 89.5 fL (75.5-95.3); MONOCYTES # (AUTO) 0.8 K/uL (2.0-10.0); MONOCYTES % (AUTO) 6.3 % (0.0-11.0); NEUTROPHILS # (AUTO) 8.8 K/uL (1.8-8.9); NEUTROPHILS % (AUTO) 73.4 % (38.5-71.5); PLATELET COUNT (AUTO) 307 K/uL (179-408); RED BLOOD CELL COUNT(AUTO) 4.18 MIL/uL (3.63-4.92)
[2020-02-07 07:38] VITALS: BP 109/66
[2020-02-07] MEDS: HYDROGEN PEROXIDE 3% 118 ML BOTTLE TOP SCH ×2 (07:38→21:40)
[2020-02-07 07:44] LABS: CREATININE 0.6 mg/dL (0.6-1.3); MAGNESIUM 2.1 mg/dL (1.8-2.4); PHOSPHOROUS 4.6 mg/dL (2.5-4.9); POTASSIUM 4.5 mmol/L (3.5-5.1)
[2020-02-07] MEDS: levETIRAcetam 500 MG/5 ML LIQUID UDC GT SCH ×2 (08:34→20:46)
[2020-02-07] MEDS: ACIDOPHILUS/BULGARICUS CHEW TAB GT SCH ×2 (08:34→20:46)
[2020-02-07] MEDS: LACOSAMIDE 100 MG/10 ML UDC GT SCH ×2 (08:34→20:46)
[2020-02-07] MEDS: METOPROLOL TARTRATE 50 MG TABLET GT SCH ×2 (08:35→20:47)
[2020-02-07] MEDS: AMLODIPINE 10 MG TABLET GT SCH (08:36)
[2020-02-07] MEDS: NUTRISOURCE FIBER 4 GM PACKET GT SCH (08:36)
[2020-02-07] MEDS: COD LIVER OIL/ZINC OXIDE OINT 113 GM TUBE TP SCH ×2 (08:36→20:48)
[2020-02-07] MEDS: CLINDAMYCIN TP SCH (08:36)
[2020-02-07] MEDS: BACLOFEN 10 MG TABLET GT SCH ×2 (10:00→20:46)
--- NOTE | 2020-02-07 19:48 | NUR ---
Pt received on cool aerosol 28% FiO2 tolerating well. Ambubag and spare trach at bedside. Airway is patent and secured. Suctioned PRN. Will continue to monitor.
[2020-02-07 20:00] VITALS: BP 126/76
[2020-02-07] MEDS: FERROUS SULFATE 330 MG/7.5 ML UDC- FOR SA ONLY GT SCH (20:46)
[2020-02-07] MEDS: MULTIVIT, IRON, MIN NO. 8, FA TABLET GT SCH (20:47)
[2020-02-07] MEDS: MELATONIN 5MG TABLET GT SCH (20:47)
[2020-02-07] MEDS: ADAPALENE 0.3% TP SCH (20:48)
[2020-02-07] MEDS: MINERAL OIL/PETROLATUM,WHITE 57 GM TUBE TP SCH (20:48)
[2020-02-07] MEDS: RIVAROXABAN 10 MG TABLET GT SCH (20:48)
[2020-02-08] MEDS: FAMOTIDINE 20 MG TABLET GT SCH (05:27)
[2020-02-08] MEDS: HYDROGEN PEROXIDE 3% 118 ML BOTTLE TOP SCH ×2 (08:08→21:00)
[2020-02-08] MEDS: NUTRISOURCE FIBER 4 GM PACKET GT SCH (08:48)
[2020-02-08] MEDS: LACOSAMIDE 100 MG/10 ML UDC GT SCH ×2 (08:48→20:40)
[2020-02-08] MEDS: ACIDOPHILUS/BULGARICUS CHEW TAB GT SCH ×2 (08:48→20:50)
[2020-02-08] MEDS: levETIRAcetam 500 MG/5 ML LIQUID UDC GT SCH ×2 (08:48→20:40)
[2020-02-08] MEDS: AMLODIPINE 10 MG TABLET GT SCH (08:48)
[2020-02-08] MEDS: METOPROLOL TARTRATE 50 MG TABLET GT SCH ×2 (08:48→20:54)
[2020-02-08] MEDS: CLINDAMYCIN TP SCH (08:49)
[2020-02-08] MEDS: COD LIVER OIL/ZINC OXIDE OINT 113 GM TUBE TP SCH ×2 (08:49→20:54)
[2020-02-08] MEDS: BACLOFEN 10 MG TABLET GT SCH ×2 (10:05→20:40)
--- NOTE | 2020-02-08 15:34 | NUR ---
Pt received on 28% Cool Aerosol T-piece to trach. No s/s of respiratory distress noted. Pt has dim clear breath sounds. prn sxn'ing performed with sm/mod amounts of yellowish thick secretions. trach care performed. aerosol tubing and rainout bag cleared and drained. Will continue to monitor.
[2020-02-08] MEDS: FERROUS SULFATE 330 MG/7.5 ML UDC- FOR SA ONLY GT SCH (20:49)
[2020-02-08] MEDS: MULTIVIT, IRON, MIN NO. 8, FA TABLET GT SCH (20:54)
[2020-02-08] MEDS: MINERAL OIL/PETROLATUM,WHITE 57 GM TUBE TP SCH (20:54)
[2020-02-08] MEDS: MELATONIN 5MG TABLET GT SCH (20:54)
[2020-02-08] MEDS: ADAPALENE 0.3% TP SCH (20:55)
[2020-02-08 20:59] VITALS: BP 118/78
[2020-02-08] MEDS: RIVAROXABAN 10 MG TABLET GT SCH (21:00)
[2020-02-09] MEDS: JEVITY 1.2 1000 ML LIQUID GT PRN (03:37)
[2020-02-09] MEDS: FAMOTIDINE 20 MG TABLET GT SCH (05:55)
[2020-02-09 07:24] VITALS: BP 107/52
[2020-02-09] MEDS: HYDROGEN PEROXIDE 3% 118 ML BOTTLE TOP SCH ×2 (08:22→18:54)
[2020-02-09] MEDS: LACOSAMIDE 100 MG/10 ML UDC GT SCH ×2 (08:49→20:34)
[2020-02-09] MEDS: levETIRAcetam 500 MG/5 ML LIQUID UDC GT SCH ×2 (08:49→20:34)
[2020-02-09] MEDS: ACIDOPHILUS/BULGARICUS CHEW TAB GT SCH ×2 (08:49→20:54)
[2020-02-09] MEDS: METOPROLOL TARTRATE 50 MG TABLET GT SCH ×2 (08:49→20:55)
[2020-02-09] MEDS: NUTRISOURCE FIBER 4 GM PACKET GT SCH (08:50)
[2020-02-09] MEDS: COD LIVER OIL/ZINC OXIDE OINT 113 GM TUBE TP SCH ×2 (08:50→20:55)
[2020-02-09] MEDS: AMLODIPINE 10 MG TABLET GT SCH (08:50)
[2020-02-09] MEDS: CLINDAMYCIN TP SCH (08:50)
[2020-02-09] MEDS: BACLOFEN 10 MG TABLET GT SCH ×2 (10:43→20:34)
--- NOTE | 2020-02-09 18:00 | NUR ---
Provided video chat to pt. and her mother with no problem noted, kept pt. clean and comfortable, all needs attended and anticipated.
[2020-02-09 20:48] VITALS: BP 110/64
[2020-02-09] MEDS: FERROUS SULFATE 330 MG/7.5 ML UDC- FOR SA ONLY GT SCH (20:54)
[2020-02-09] MEDS: MINERAL OIL/PETROLATUM,WHITE 57 GM TUBE TP SCH (20:55)
[2020-02-09] MEDS: ADAPALENE 0.3% TP SCH (20:55)
[2020-02-09] MEDS: MULTIVIT, IRON, MIN NO. 8, FA TABLET GT SCH (20:55)
[2020-02-09] MEDS: MELATONIN 5MG TABLET GT SCH (20:55)
[2020-02-09] MEDS: RIVAROXABAN 10 MG TABLET GT SCH (21:00)
[2020-02-10] MEDS: JEVITY 1.2 1000 ML LIQUID GT PRN ×2 (01:55→17:39)
[2020-02-10] MEDS: FAMOTIDINE 20 MG TABLET GT SCH (05:44)
[2020-02-10 07:09] VITALS: BP 91/41
[2020-02-10] MEDS: levETIRAcetam 500 MG/5 ML LIQUID UDC GT SCH ×2 (08:21→20:44)
[2020-02-10] MEDS: LACOSAMIDE 100 MG/10 ML UDC GT SCH ×2 (08:21→20:45)
[2020-02-10] MEDS: ACIDOPHILUS/BULGARICUS CHEW TAB GT SCH ×2 (08:22→20:45)
[2020-02-10] MEDS: CLINDAMYCIN TP SCH (08:23)
[2020-02-10] MEDS: NUTRISOURCE FIBER 4 GM PACKET GT SCH (08:23)
[2020-02-10] MEDS: COD LIVER OIL/ZINC OXIDE OINT 113 GM TUBE TP SCH ×2 (08:23→20:47)
[2020-02-10] MEDS: METOPROLOL TARTRATE 50 MG TABLET GT SCH ×2 (08:44→20:46)
[2020-02-10] MEDS: AMLODIPINE 10 MG TABLET GT SCH (08:44)
[2020-02-10 08:45] VITALS: BP 111/50
[2020-02-10] MEDS: HYDROGEN PEROXIDE 3% 118 ML BOTTLE TOP SCH ×2 (09:00→21:45)
[2020-02-10] MEDS: BACLOFEN 10 MG TABLET GT SCH ×2 (10:30→20:45)
--- NOTE | 2020-02-10 15:10 | NUR ---
NEW ORDER WAS CARRIED OUT FROM [facility] FOR OT AND PT DAIANA FOR YANCY. UPPER EXT. AND ABDUCTION PILLOW.
--- NOTE | 2020-02-10 17:00 | NUR ---
video chat done with patient's mother at this time.
[2020-02-10 20:28] VITALS: BP 112/57
[2020-02-10] MEDS: FERROUS SULFATE 330 MG/7.5 ML UDC- FOR SA ONLY GT SCH (20:45)
[2020-02-10] MEDS: MULTIVIT, IRON, MIN NO. 8, FA TABLET GT SCH (20:46)
[2020-02-10] MEDS: MELATONIN 5MG TABLET GT SCH (20:46)
[2020-02-10] MEDS: RIVAROXABAN 10 MG TABLET GT SCH (20:47)
[2020-02-10] MEDS: ADAPALENE 0.3% TP SCH (20:47)
[2020-02-10] MEDS: MINERAL OIL/PETROLATUM,WHITE 57 GM TUBE TP SCH (20:47)
[2020-02-11] MEDS: FAMOTIDINE 20 MG TABLET GT SCH (05:33)
[2020-02-11 07:40] VITALS: BP 135/85
[2020-02-11] MEDS: LACOSAMIDE 100 MG/10 ML UDC GT SCH ×2 (08:25→20:33)
[2020-02-11] MEDS: levETIRAcetam 500 MG/5 ML LIQUID UDC GT SCH ×2 (08:25→20:33)
[2020-02-11] MEDS: ACIDOPHILUS/BULGARICUS CHEW TAB GT SCH ×2 (08:25→20:33)
[2020-02-11] MEDS: METOPROLOL TARTRATE 50 MG TABLET GT SCH ×2 (08:26→20:34)
[2020-02-11] MEDS: AMLODIPINE 10 MG TABLET GT SCH (08:26)
[2020-02-11] MEDS: NUTRISOURCE FIBER 4 GM PACKET GT SCH (08:27)
[2020-02-11] MEDS: COD LIVER OIL/ZINC OXIDE OINT 113 GM TUBE TP SCH ×2 (08:27→20:34)
[2020-02-11] MEDS: HYDROGEN PEROXIDE 3% 118 ML BOTTLE TOP SCH ×2 (08:28→19:10)
[2020-02-11] MEDS: CLINDAMYCIN TP SCH (09:36)
[2020-02-11] MEDS: BACLOFEN 10 MG TABLET GT SCH ×2 (09:37→20:33)
--- NOTE | 2020-02-11 16:00 | NUR ---
Seen and examined by Dr Ramos,with new orders noted and carried out.
--- NOTE | 2020-02-11 17:45 | NUR ---
video chat done with patient's mother at this time.
[2020-02-11] MEDS: FERROUS SULFATE 330 MG/7.5 ML UDC- FOR SA ONLY GT SCH (20:33)
[2020-02-11] MEDS: MELATONIN 5MG TABLET GT SCH (20:34)
[2020-02-11] MEDS: MULTIVIT, IRON, MIN NO. 8, FA TABLET GT SCH (20:34)
[2020-02-11] MEDS: MINERAL OIL/PETROLATUM,WHITE 57 GM TUBE TP SCH (20:34)
[2020-02-11] MEDS: ADAPALENE 0.3% TP SCH (20:35)
[2020-02-11] MEDS: RIVAROXABAN 10 MG TABLET GT SCH (20:41)
[2020-02-11 22:35] VITALS: BP 106/54
[2020-02-12] MEDS: FAMOTIDINE 20 MG TABLET GT SCH (05:28)
[2020-02-12] MEDS: JEVITY 1.2 1000 ML LIQUID GT PRN (05:56)
[2020-02-12 06:29] LABS: ALANINE AMINOTRANSFERASE 68 U/L (14-59); ALKALINE PHOSPHATASE 85 U/L (50-136); ASPARTATE AMINOTRANSFERASE 26 U/L (15-37); BILIRUBIN,TOTAL 0.2 mg/dL (0.2-1.0); CARBON DIOXIDE 29 mmol/L (21-32); CHLORIDE 105 mmol/L (98-107); CREATININE 0.5 mg/dL (0.6-1.3); GLUCOSE 96 mg/dL (74-106); POTASSIUM 4.4 mmol/L (3.5-5.1); TOTAL PROTEIN, SERUM 7.6 g/dL (6.4-8.2); UREA NITROGEN, BLOOD 16 mg/dL (7-18)
[2020-02-12 06:36] LABS: BASOPHILS % (AUTO) 0.5 % (0.0-2.0); EOSINOPHILS # (AUTO) 0.4 K/uL (0.0-0.7); EOSINOPHILS % (AUTO) 4.2 % (0.0-7.0); HEMATOCRIT 38.4 % (31.2-41.9); HEMOGLOBIN 12.8 g/dL (10.9-14.3); LYMPHOCYTES # (AUTO) 2.2 K/uL (20.0-40.0); LYMPHOCYTES % (AUTO) 26.2 % (20.5-51.5); MEAN CORPUSCULAR HEMOGLOBIN 29.7 uug (24.7-32.8); MEAN CORPUSCULAR HGB CONC 33 g/dL (32.3-35.6); MEAN CORPUSCULAR VOLUME 89.4 fL (75.5-95.3); MONOCYTES # (AUTO) 0.6 K/uL (2.0-10.0); MONOCYTES % (AUTO) 6.6 % (0.0-11.0); NEUTROPHILS # (AUTO) 5.2 K/uL (1.8-8.9); NEUTROPHILS % (AUTO) 62.5 % (38.5-71.5); PLATELET COUNT (AUTO) 310 K/uL (179-408); WHITE BLOOD COUNT (AUTO) 8.4 K/uL (3.8-11.8)
[2020-02-12 07:51] VITALS: BP 114/57
[2020-02-12] MEDS: LACOSAMIDE 100 MG/10 ML UDC GT SCH ×2 (08:00→20:52)
[2020-02-12] MEDS: levETIRAcetam 500 MG/5 ML LIQUID UDC GT SCH ×2 (08:00→20:51)
[2020-02-12] MEDS: METOPROLOL TARTRATE 50 MG TABLET GT SCH ×2 (08:25→20:58)
[2020-02-12] MEDS: COD LIVER OIL/ZINC OXIDE OINT 113 GM TUBE TP SCH ×2 (08:26→21:00)
[2020-02-12] MEDS: AMLODIPINE 10 MG TABLET GT SCH (08:26)
[2020-02-12] MEDS: NUTRISOURCE FIBER 4 GM PACKET GT SCH (08:26)
[2020-02-12] MEDS: CLINDAMYCIN TP SCH (08:27)
[2020-02-12] MEDS: BACLOFEN 10 MG TABLET GT SCH ×2 (09:17→20:51)
[2020-02-12] MEDS: ACIDOPHILUS/BULGARICUS CHEW TAB GT SCH ×2 (09:17→20:52)
[2020-02-12] MEDS: HYDROGEN PEROXIDE 3% 118 ML BOTTLE TOP SCH ×2 (09:29→18:55)
[2020-02-12 12:36] LABS: *BILIRUBIN,URIN NEGATIVE (NEGATIVE); *CLARITY,URINE CLOUDY (CLEAR); *COLOR,URINE YELLOW (YELLOW); *KETONES,URINE NEGATIVE (NEGATIVE); *UROBILINOGEN,URINE 0.2 E.U./dl (NORMAL); LEUKOCYTE ESTERASE ,URINE TRACE (NEGATIVE); NITRITE, URINE NEGATIVE (NEGATIVE); PH,URINE 8.5 (5.0-8.0); UGLUCOSE NEGATIVE (NEGATIVE)
[2020-02-12 12:44] LABS: *BLOOD, URINE TRACE (NEGATIVE)
[2020-02-12 17:50] LABS: BACTERIA,URINE MANY /HPF (NONE SEEN); SQUAMOUS EPITHELIAL CELL,UR MANY /HPF (NONE SEEN); URINE AMORPHOUS PHOSPHATES MODERATE /HPF
--- NOTE | 2020-02-12 18:50 | NUR ---
PATIENT NOTED WITH VOMITING, VITAL SIGNS: BP 113/72, PULSE 109, TEMP. 98.5 SATURATION 98%. WITH NO SIGNS OF PAIN. PAGED DR CRUZ REGARDING THIS ISSUE WITH NO RESPONSE, WAITING FOR A CALL BACK, ENDORSED TO NEXT SHIFT. ALSO NOTIFIED RESPONSIBLE [employer] MILI RICHMOND, MOTHER OF PATIENT. WILL CONTINUE TO MONITOR PATIENT NEEDS.
--- NOTE | 2020-02-12 19:30 | NUR ---
Received patient in bed, no signs of any distress noted, gt feeding was on hold due to vomiting X 1 earlier in the evening, no vomiting noted, patient is awake, and in no signs of any distress. HOB elevated, on aspiration precaution. abdomen is soft on palpation and no signs of any pain during palpation, (+) abdominal sounds on all 4 quadrants, kept and will continue monitor.
--- NOTE | 2020-02-12 19:31 | NUR ---
Vital signs: B/P: 110/66 HR: 106 RR: 20 T: 98.9 02sat: 99%.
[2020-02-12] MEDS: FERROUS SULFATE 330 MG/7.5 ML UDC- FOR SA ONLY GT SCH (20:52)
[2020-02-12] MEDS: MELATONIN 5MG TABLET GT SCH (20:58)
[2020-02-12] MEDS: RIVAROXABAN 10 MG TABLET GT SCH (20:59)
[2020-02-12] MEDS: MINERAL OIL/PETROLATUM,WHITE 57 GM TUBE TP SCH (21:00)
[2020-02-12] MEDS: ADAPALENE 0.3% TP SCH (21:00)
[2020-02-12] MEDS: MULTIVIT, IRON, MIN NO. 8, FA TABLET GT SCH (21:08)
--- NOTE | 2020-02-12 21:30 | NUR ---
Patient is afebrile, no vomiting noted, no signs of any distress, gt feeding tolerating well, will continue monitor.
[2020-02-12 22:52] VITALS: BP 121/74
[2020-02-13] MEDS: JEVITY 1.2 1000 ML LIQUID GT PRN ×2 (03:00→22:41)
[2020-02-13] MEDS: FAMOTIDINE 20 MG TABLET GT SCH (05:46)
--- NOTE | 2020-02-13 06:11 | NUR ---
Patient is afebrile, no respiratory distress noted, gt feeding tolerating well, no nausea or vomiting noted, no signs of pain or discomfort, turned and repositioned, kept clean and comfortable.
[2020-02-13 07:35] VITALS: BP 119/47
[2020-02-13] MEDS: LACOSAMIDE 100 MG/10 ML UDC GT SCH ×2 (08:50→20:25)
[2020-02-13] MEDS: ACIDOPHILUS/BULGARICUS CHEW TAB GT SCH ×2 (08:50→20:25)
[2020-02-13] MEDS: levETIRAcetam 500 MG/5 ML LIQUID UDC GT SCH ×2 (08:50→20:25)
[2020-02-13] MEDS: NUTRISOURCE FIBER 4 GM PACKET GT SCH (08:51)
[2020-02-13] MEDS: CLINDAMYCIN TP SCH (08:51)
[2020-02-13] MEDS: METOPROLOL TARTRATE 50 MG TABLET GT SCH ×2 (08:51→20:25)
[2020-02-13] MEDS: AMLODIPINE 10 MG TABLET GT SCH (08:51)
[2020-02-13] MEDS: COD LIVER OIL/ZINC OXIDE OINT 113 GM TUBE TP SCH ×2 (08:51→20:25)
[2020-02-13] MEDS: HYDROGEN PEROXIDE 3% 118 ML BOTTLE TOP SCH ×2 (09:51→21:19)
[2020-02-13] MEDS: BACLOFEN 10 MG TABLET GT SCH ×2 (10:14→20:25)
--- NOTE | 2020-02-13 12:19 | NUR ---
Seen by Santos Johnson, new orders given to start Nitrofurantoin 100 gt q12hrs x3 days for uti, Mother notified of patient's condition and new order.
[2020-02-13 14:15] VITALS: BP 120/55
--- NOTE | 2020-02-13 15:45 | NUR ---
This SW was informed by Inspection Machine Tender Germaine Gonzalez that patient's mother Abdoul was in the hospital lobby asking to speak with nurse refuge manager Nick Goldberg. This SW informed Germaine that Nick was not available, but that per this SAPNA's knowledge, Abdoul had paperwork to drop off for Nick. SAPNA suggested that patient's assigned nurse can meet with Abdoul in the lobby and pharmacy picking tech the paperwork to deliver to Nick. Germaine expressed agreement. SAPNA asked patient's assigned nurse to meet with patient's mother and bring the paperwork to Nick's office. Patient's nurse met with Abdoul, but then returned to inform this SW that Abdoul did not provide the nurse with the paperwork, but instead claimed she had an appointment with Nick. Patient's nurse also stated that Abdoul asked if this SW was available. SAPNA then went to meet with Abdoul in the lobby. Abdoul presented this SW with paperwork that showed that she was applying for conservatorship for the patient, and that she was told that she needed this SW to "serve the patient" with the conservatorship paperwork, asking this SW to sign the court form stating that this SW served the patient. SAPNA reviewed the paperwork, and informed Abdoul that SAPNA does not have authorization to sign or serve court documents. Abdoul's voice became loud and Abdoul began to demand that this SW needed to sign the paperwork. SAPNA once again explained to Abdoul that SAPNA was not authorized to sign, and that her request needed to be reviewed by administration, and if necessary by the hospital's legal department. Abdoul continued to speak to this SW with a loud and demanding voice, stating that this SW was unwilling to help her. SAPNA once again explained this SW's limitations with signing and serving court documents. SAPNA then informed Abdoul that she could wait to speak with nurse refuge manager Nick Goldberg. Abdoul asked this SW for 2 color copies of the conservatorship application, and SAPNA made these copies and provided them to Abdoul. Nick Goldberg then joined this SAPNA and Abdoul in the lobby, and Abdoul had the same conversation and demands with Nick as she did earlier with this SW, as stated above. Nick explained that the forms needed to be reviewed by administration. The forms were delivered to administration, and reviewed by CNO/Tennis Professional Em Walker, who stated that hospital staff could not sign or serve court documents to patients, and instead this process needed to be done by the courts. This information was relayed to Abdoul by Nick Goldberg and anders ALEJO. Abdoul expressed frustration and anger, and wanted for Nick Goldberg and this SAPNA to talk to her community living coach via [employer]'s cellular phone. Abdoul was informed by Nick Goldberg that the community living coach and/or the courts would need to contact the hospital directly. At this time, Nick Goldberg ended the conversation, and both Nick and this SW excused themselves. Security personnel were present during this interaction.
[2020-02-13] MEDS: CEphaleXIN 500 MG CAPSULE GT SCH ×2 (16:45→21:08)
--- NOTE | 2020-02-13 16:58 | NUR ---
RECIEVED PATIENT ON 28% FIO2 VIA TPIECE. B/S BILATERAL RONCHI. PRN SXN PROVIDED WITH SMALL THICK YELLOW SECRETIONS NOTED. MONTHLY TRACH CHANGE DONE AND MELECIO WELL WITH NO COMPLICATIONS. AMBUBAG AND SPARE TRACH @ BEDSIDE. WILL CONTINUE TO MONITOR.
[2020-02-13] MEDS: MINERAL OIL/PETROLATUM,WHITE 57 GM TUBE TP SCH (20:25)
[2020-02-13] MEDS: MULTIVIT, IRON, MIN NO. 8, FA TABLET GT SCH (20:25)
[2020-02-13] MEDS: FERROUS SULFATE 330 MG/7.5 ML UDC- FOR SA ONLY GT SCH (20:25)
[2020-02-13] MEDS: RIVAROXABAN 10 MG TABLET GT SCH (20:25)
[2020-02-13] MEDS: MELATONIN 5MG TABLET GT SCH (20:25)
[2020-02-13] MEDS: ADAPALENE 0.3% TP SCH (20:25)
--- NOTE | 2020-02-13 21:07 | NUR ---
2100: RESIDENT ON KEFLEX 500MG CAP VIA GT Q6H ORDERED FOR UTI. 2200 DOSE TAKEN FROM [facility].
[2020-02-13 22:34] VITALS: BP 118/48
--- NOTE | 2020-02-14 02:42 | NUR ---
PT ON CONT P/MIST @ 28% VIA T/PIECE, DRAIN TUBINGS, SUCTION AT TIMES, SMALL AMOUNT OF WHITISH SECRETIONS, AND SUCTION MOUTH WITH RUTHY SCOTT, TRACH CARE DONE, NO SOB NOTED, TEETH GRINDING AT TIMES, NO GURGLING, PT STABLE, CHANGE NEB WATER. Aristides BOYLEP Addendum: 02/14/20 at 0246 by MATT SHAW RT Amended: Links added.
[2020-02-14] MEDS: CEphaleXIN 500 MG CAPSULE GT SCH ×4 (04:35→21:15)
[2020-02-14] MEDS: FAMOTIDINE 20 MG TABLET GT SCH (05:20)
--- NOTE | 2020-02-14 06:20 | NUR ---
continue on keflex 500mg for uti, no adverse reaction noted,no respiratory distress noted.
[2020-02-14 07:55] VITALS: BP 121/64
[2020-02-14] MEDS: levETIRAcetam 500 MG/5 ML LIQUID UDC GT SCH ×2 (08:19→20:44)
[2020-02-14] MEDS: LACOSAMIDE 100 MG/10 ML UDC GT SCH ×2 (08:19→20:44)
[2020-02-14] MEDS: COD LIVER OIL/ZINC OXIDE OINT 113 GM TUBE TP SCH ×2 (09:00→20:45)
[2020-02-14] MEDS: HYDROGEN PEROXIDE 3% 118 ML BOTTLE TOP SCH ×2 (09:00→21:24)
[2020-02-14] MEDS: CLINDAMYCIN TP SCH (09:00)
[2020-02-14] MEDS: ACIDOPHILUS/BULGARICUS CHEW TAB GT SCH ×2 (09:23→20:44)
[2020-02-14] MEDS: METOPROLOL TARTRATE 50 MG TABLET GT SCH ×2 (09:24→20:44)
[2020-02-14] MEDS: AMLODIPINE 10 MG TABLET GT SCH (09:25)
[2020-02-14] MEDS: NUTRISOURCE FIBER 4 GM PACKET GT SCH (09:26)
[2020-02-14] MEDS: BACLOFEN 10 MG TABLET GT SCH ×2 (10:24→20:44)
[2020-02-14] MEDS: JEVITY 1.2 1000 ML LIQUID GT PRN (12:37)
--- NOTE | 2020-02-14 17:12 | NUR ---
mother called for updates and given updates , desires to have zoom with the daughter and will call back
--- NOTE | 2020-02-14 18:06 | NUR ---
patient had facetime zoom meeting with mother,
[2020-02-14] MEDS: MELATONIN 5MG TABLET GT SCH (20:44)
[2020-02-14] MEDS: FERROUS SULFATE 330 MG/7.5 ML UDC- FOR SA ONLY GT SCH (20:44)
[2020-02-14] MEDS: MULTIVIT, IRON, MIN NO. 8, FA TABLET GT SCH (20:44)
[2020-02-14] MEDS: ADAPALENE 0.3% TP SCH (20:45)
[2020-02-14] MEDS: RIVAROXABAN 10 MG TABLET GT SCH (20:45)
[2020-02-14] MEDS: MINERAL OIL/PETROLATUM,WHITE 57 GM TUBE TP SCH (20:45)
[2020-02-14 22:49] VITALS: BP 115/70
--- NOTE | 2020-02-14 23:43 | NUR ---
PT ON CONT OP/MIST @ 28% VIA T/PIECE, CHANGE ANNE , DRAIN TUBINGS, BOTTLE CHANGE H2O FOR AEROSOL CHANGED LATER, NO SOB NOTED, NO GURGLING, TEETH GRINDING AT TIMES. SUCTIONED WHITISH TINGE SECRETIONS. Aristides SHAW RCP Addendum: 02/14/20 at 2345 by MATT SHAW RT Amended: Links added.
[2020-02-15] MEDS: CEphaleXIN 500 MG CAPSULE GT SCH ×4 (03:33→21:05)
[2020-02-15] MEDS: JEVITY 1.2 1000 ML LIQUID GT PRN ×2 (03:33→20:55)
[2020-02-15] MEDS: FAMOTIDINE 20 MG TABLET GT SCH (05:21)
[2020-02-15 07:45] VITALS: BP 116/64
[2020-02-15] MEDS: levETIRAcetam 500 MG/5 ML LIQUID UDC GT SCH ×2 (08:41→20:35)
[2020-02-15] MEDS: LACOSAMIDE 100 MG/10 ML UDC GT SCH ×2 (08:41→20:35)
[2020-02-15] MEDS: ACIDOPHILUS/BULGARICUS CHEW TAB GT SCH ×2 (08:41→20:36)
[2020-02-15] MEDS: AMLODIPINE 10 MG TABLET GT SCH (08:42)
[2020-02-15] MEDS: NUTRISOURCE FIBER 4 GM PACKET GT SCH (08:42)
[2020-02-15] MEDS: METOPROLOL TARTRATE 50 MG TABLET GT SCH ×2 (08:42→20:36)
[2020-02-15] MEDS: COD LIVER OIL/ZINC OXIDE OINT 113 GM TUBE TP SCH ×2 (08:43→20:36)
[2020-02-15] MEDS: CLINDAMYCIN TP SCH (08:43)
[2020-02-15] MEDS: BACLOFEN 10 MG TABLET GT SCH ×2 (10:29→20:35)
[2020-02-15] MEDS: HYDROGEN PEROXIDE 3% 118 ML BOTTLE TOP SCH ×2 (10:40→21:03)
--- NOTE | 2020-02-15 10:40 | NUR ---
SEE RESPIRATORY PROGRESS NOTE.
--- NOTE | 2020-02-15 17:33 | NUR ---
zoom provided to mother.
[2020-02-15] MEDS: RIVAROXABAN 10 MG TABLET GT SCH (20:29)
[2020-02-15] MEDS: FERROUS SULFATE 330 MG/7.5 ML UDC- FOR SA ONLY GT SCH (20:35)
[2020-02-15] MEDS: MELATONIN 5MG TABLET GT SCH (20:36)
[2020-02-15] MEDS: MULTIVIT, IRON, MIN NO. 8, FA TABLET GT SCH (20:36)
[2020-02-15] MEDS: ADAPALENE 0.3% TP SCH (20:36)
[2020-02-15] MEDS: MINERAL OIL/PETROLATUM,WHITE 57 GM TUBE TP SCH (20:36)
[2020-02-15 22:50] VITALS: BP 117/74
[2020-02-16] MEDS: CEphaleXIN 500 MG CAPSULE GT SCH ×2 (03:37→09:23)
[2020-02-16] MEDS: FAMOTIDINE 20 MG TABLET GT SCH (05:08)
[2020-02-16] MEDS: levETIRAcetam 500 MG/5 ML LIQUID UDC GT SCH ×2 (08:00→20:59)
[2020-02-16] MEDS: LACOSAMIDE 100 MG/10 ML UDC GT SCH ×2 (08:00→20:59)
[2020-02-16 08:15] VITALS: BP 105/49
[2020-02-16] MEDS: AMLODIPINE 10 MG TABLET GT SCH (09:00)
[2020-02-16] MEDS: METOPROLOL TARTRATE 50 MG TABLET GT SCH ×2 (09:00→21:24)
[2020-02-16] MEDS: ACIDOPHILUS/BULGARICUS CHEW TAB GT SCH ×2 (09:07→21:13)
[2020-02-16] MEDS: COD LIVER OIL/ZINC OXIDE OINT 113 GM TUBE TP SCH ×2 (09:11→21:26)
[2020-02-16] MEDS: CLINDAMYCIN TP SCH (09:11)
[2020-02-16] MEDS: NUTRISOURCE FIBER 4 GM PACKET GT SCH (09:11)
[2020-02-16] MEDS: HYDROGEN PEROXIDE 3% 118 ML BOTTLE TOP SCH ×2 (09:22→21:26)
[2020-02-16] MEDS: BACLOFEN 10 MG TABLET GT SCH ×2 (09:23→20:59)
[2020-02-16 20:30] VITALS: BP 118/60
--- NOTE | 2020-02-16 20:34 | NUR ---
Pt received on cool aerosol 28% FiO2 tolerating well. Ambubag and spare trach at bedside. Airway is patent and secured. Suctioned PRN. Will continue to monitor.
[2020-02-16 20:43] VITALS: BP 118/60
[2020-02-16] MEDS: FERROUS SULFATE 330 MG/7.5 ML UDC- FOR SA ONLY GT SCH (21:10)
[2020-02-16] MEDS: MELATONIN 5MG TABLET GT SCH (21:26)
[2020-02-16] MEDS: MINERAL OIL/PETROLATUM,WHITE 57 GM TUBE TP SCH (21:26)
[2020-02-16] MEDS: MULTIVIT, IRON, MIN NO. 8, FA TABLET GT SCH (21:26)
[2020-02-16] MEDS: ADAPALENE 0.3% TP SCH (21:27)
[2020-02-16] MEDS: RIVAROXABAN 10 MG TABLET GT SCH (21:35)
[2020-02-17] MEDS: FAMOTIDINE 20 MG TABLET GT SCH (05:12)
[2020-02-17 08:22] VITALS: BP 107/56
[2020-02-17] MEDS: levETIRAcetam 500 MG/5 ML LIQUID UDC GT SCH ×2 (08:54→20:15)
[2020-02-17] MEDS: LACOSAMIDE 100 MG/10 ML UDC GT SCH ×2 (08:54→20:18)
[2020-02-17] MEDS: ACIDOPHILUS/BULGARICUS CHEW TAB GT SCH ×2 (08:55→20:23)
[2020-02-17] MEDS: AMLODIPINE 10 MG TABLET GT SCH (08:57)
[2020-02-17] MEDS: NUTRISOURCE FIBER 4 GM PACKET GT SCH (08:57)
[2020-02-17] MEDS: METOPROLOL TARTRATE 50 MG TABLET GT SCH ×2 (08:57→20:18)
[2020-02-17] MEDS: CLINDAMYCIN TP SCH (09:00)
[2020-02-17] MEDS: COD LIVER OIL/ZINC OXIDE OINT 113 GM TUBE TP SCH ×2 (09:00→20:25)
[2020-02-17] MEDS: HYDROGEN PEROXIDE 3% 118 ML BOTTLE TOP SCH ×2 (09:32→21:38)
[2020-02-17] MEDS: BACLOFEN 10 MG TABLET GT SCH ×2 (10:46→20:15)
[2020-02-17] MEDS: JEVITY 1.2 1000 ML LIQUID GT PRN (11:58)
--- NOTE | 2020-02-17 15:30 | NUR ---
Finding pt with her monthly menses for the first time since admission day. Rn and mother aware . Abdoul also refused for her daughter to get flu shot. 1630 Video chat provided with pt's mother.
[2020-02-17 20:00] VITALS: BP 113/89
[2020-02-17] MEDS: FERROUS SULFATE 330 MG/7.5 ML UDC- FOR SA ONLY GT SCH (20:18)
[2020-02-17] MEDS: MELATONIN 5MG TABLET GT SCH (20:23)
[2020-02-17] MEDS: MULTIVIT, IRON, MIN NO. 8, FA TABLET GT SCH (20:24)
[2020-02-17] MEDS: MINERAL OIL/PETROLATUM,WHITE 57 GM TUBE TP SCH (20:25)
[2020-02-17] MEDS: RIVAROXABAN 10 MG TABLET GT SCH (20:25)
[2020-02-17] MEDS: ADAPALENE 0.3% TP SCH (20:25)
[2020-02-17 22:21] VITALS: BP 100/53
[2020-02-18] MEDS: JEVITY 1.2 1000 ML LIQUID GT PRN ×2 (04:23→22:18)
[2020-02-18 04:36] LABS: *BLOOD, URINE 3+ (NEGATIVE); *CLARITY,URINE CLOUDY (CLEAR); *COLOR,URINE AMBER (YELLOW); *KETONES,URINE NEGATIVE (NEGATIVE); *UROBILINOGEN,URINE 0.2 E.U./dl (NORMAL); LEUKOCYTE ESTERASE ,URINE NEGATIVE (NEGATIVE); NITRITE, URINE NEGATIVE (NEGATIVE); UGLUCOSE NEGATIVE (NEGATIVE)
[2020-02-18 04:43] LABS: *BILIRUBIN,URIN 1+ (NEGATIVE)
[2020-02-18 04:55] LABS: RBC,URINE TNTC /HPF (0-3); WBC,URINE 0-3 /HPF (0-3)
[2020-02-18 04:56] LABS: BACTERIA,URINE NONE SEEN /HPF (NONE SEEN); SQUAMOUS EPITHELIAL CELL,UR MANY /HPF (NONE SEEN)
[2020-02-18] MEDS: FAMOTIDINE 20 MG TABLET GT SCH (05:45)
[2020-02-18] MEDS: levETIRAcetam 500 MG/5 ML LIQUID UDC GT SCH ×2 (08:53→20:15)
[2020-02-18] MEDS: ACIDOPHILUS/BULGARICUS CHEW TAB GT SCH ×2 (08:54→20:16)
[2020-02-18] MEDS: LACOSAMIDE 100 MG/10 ML UDC GT SCH ×2 (08:54→20:15)
[2020-02-18] MEDS: AMLODIPINE 10 MG TABLET GT SCH (08:56)
[2020-02-18] MEDS: METOPROLOL TARTRATE 50 MG TABLET GT SCH ×2 (08:56→20:16)
[2020-02-18] MEDS: COD LIVER OIL/ZINC OXIDE OINT 113 GM TUBE TP SCH ×2 (08:57→20:17)
[2020-02-18] MEDS: NUTRISOURCE FIBER 4 GM PACKET GT SCH (08:57)
[2020-02-18] MEDS: CLINDAMYCIN TP SCH (08:57)
[2020-02-18] MEDS: HYDROGEN PEROXIDE 3% 118 ML BOTTLE TOP SCH ×2 (09:00→21:51)
[2020-02-18 09:28] VITALS: BP 90/40
[2020-02-18] MEDS: BACLOFEN 10 MG TABLET GT SCH ×2 (10:00→20:15)
--- NOTE | 2020-02-18 11:39 | NUR ---
SAPNA sent patient's mother Abdoul an email informing her that the next IDT meeting for the patient is scheduled for 02/24/2020 at 11am. SAPNA asked Abdoul to respond to the email and let this SAPNA know if Abdoul wants to participate in the meeting via speaker phone.
--- NOTE | 2020-02-18 16:00 | NUR ---
Dr Ramos notified about pt's UA result,no new orders.
[2020-02-18 20:10] VITALS: BP 112/74
[2020-02-18] MEDS: FERROUS SULFATE 330 MG/7.5 ML UDC- FOR SA ONLY GT SCH (20:15)
[2020-02-18] MEDS: MELATONIN 5MG TABLET GT SCH (20:16)
[2020-02-18] MEDS: RIVAROXABAN 10 MG TABLET GT SCH (20:17)
[2020-02-18] MEDS: MULTIVIT, IRON, MIN NO. 8, FA TABLET GT SCH (20:17)
[2020-02-18] MEDS: ADAPALENE 0.3% TP SCH (20:18)
[2020-02-18] MEDS: MINERAL OIL/PETROLATUM,WHITE 57 GM TUBE TP SCH (20:18)
--- NOTE | 2020-02-19 00:04 | NUR ---
PT ON CONT P/MIST @ 28% VIA T/PIECE , SUCTION, VERY LIGHT YELL TINGE SECRETIONS, WITH GOOD COUGH EFFORT, NO GURGLING , SLIGHT TEETH GRINDING, NO SOB NOTED, SUCTION MOUTH WITH YANKAUER, DRAIN TUBINGS, TRACH CARE DONE, STABLE.Aristides BOYLEP Addendum: 02/20/20 at 0006 by MATT SHAW RT Amended: Links added.
[2020-02-19] MEDS: FAMOTIDINE 20 MG TABLET GT SCH (06:01)
[2020-02-19] MEDS: HYDROGEN PEROXIDE 3% 118 ML BOTTLE TOP SCH ×2 (07:24→21:00)
[2020-02-19 07:46] VITALS: BP 99/44
[2020-02-19 07:50] VITALS: BP 99/54
[2020-02-19] MEDS: levETIRAcetam 500 MG/5 ML LIQUID UDC GT SCH ×2 (08:40→20:03)
[2020-02-19] MEDS: LACOSAMIDE 100 MG/10 ML UDC GT SCH ×2 (08:40→20:06)
[2020-02-19] MEDS: ACIDOPHILUS/BULGARICUS CHEW TAB GT SCH ×2 (08:41→20:08)
[2020-02-19] MEDS: NUTRISOURCE FIBER 4 GM PACKET GT SCH (08:42)
[2020-02-19] MEDS: METOPROLOL TARTRATE 50 MG TABLET GT SCH ×2 (08:42→20:14)
[2020-02-19] MEDS: AMLODIPINE 10 MG TABLET GT SCH (08:42)
[2020-02-19] MEDS: CLINDAMYCIN TP SCH (08:43)
[2020-02-19] MEDS: COD LIVER OIL/ZINC OXIDE OINT 113 GM TUBE TP SCH ×2 (08:43→20:10)
--- NOTE | 2020-02-19 09:00 | NUR ---
Pt on 28%-FIO2 Cool Aerosol via T-piece. Pt has bilateral and equal diminished clear B/S. Suctioned small amounts of white yellow tinged secretions. Bag/valve/mask and back up trach at bedside. No signs or symptoms of respiratory distress noted. Will continue to monitor.
[2020-02-19] MEDS: BACLOFEN 10 MG TABLET GT SCH ×2 (10:02→20:06)
--- NOTE | 2020-02-19 17:00 | NUR ---
patient cleaned and repositioned, noted monthly menses has stopped. will continue to monitor.
--- NOTE | 2020-02-19 17:30 | NUR ---
provided zoom for patient with mother, patient stable, no signs of any pain or discomfort. will continue to monitor.
[2020-02-19] MEDS: JEVITY 1.2 1000 ML LIQUID GT PRN (18:25)
[2020-02-19 20:00] VITALS: BP 106/61
[2020-02-19] MEDS: FERROUS SULFATE 330 MG/7.5 ML UDC- FOR SA ONLY GT SCH (20:07)
[2020-02-19] MEDS: MELATONIN 5MG TABLET GT SCH (20:08)
[2020-02-19] MEDS: RIVAROXABAN 10 MG TABLET GT SCH (20:09)
[2020-02-19] MEDS: MULTIVIT, IRON, MIN NO. 8, FA TABLET GT SCH (20:09)
[2020-02-19] MEDS: MINERAL OIL/PETROLATUM,WHITE 57 GM TUBE TP SCH (20:10)
[2020-02-19] MEDS: ADAPALENE 0.3% TP SCH (20:11)
--- NOTE | 2020-02-20 00:08 | NUR ---
PT ON CONT P/MIST @ 28% VIA T/PIECE, SUCTIONED LIGHT PALE YELL TINGE SECRETIONS, AND SUCTION MOUTH WITH RUTHY SCOTT, DRAIN TUBINS, NO SOB NOTED, GOOD COUGH EFFORT, SLIGHT TEETH GRINDING, NO GURLING, PT STABLE, TRACH CARE DONE.Aristides BOYLEP Addendum: 02/20/20 at 0010 by MATT SHAW RT Amended: Links added.
[2020-02-20] MEDS: FAMOTIDINE 20 MG TABLET GT SCH (05:06)
[2020-02-20 07:39] VITALS: BP 128/59
[2020-02-20] MEDS: HYDROGEN PEROXIDE 3% 118 ML BOTTLE TOP SCH ×2 (08:13→18:50)
--- NOTE | 2020-02-20 08:25 | NUR ---
Pt received on cool aerosol 28% FiO2 tolerating well. Ambubag and spare trach at bedside. Airway is patent and secured. Suctioned PRN. Will continue to monitor.
[2020-02-20] MEDS: ACIDOPHILUS/BULGARICUS CHEW TAB GT SCH ×2 (08:50→21:24)
[2020-02-20] MEDS: levETIRAcetam 500 MG/5 ML LIQUID UDC GT SCH ×2 (08:50→20:19)
[2020-02-20] MEDS: LACOSAMIDE 100 MG/10 ML UDC GT SCH ×2 (08:50→20:19)
[2020-02-20] MEDS: METOPROLOL TARTRATE 50 MG TABLET GT SCH ×2 (08:54→21:24)
[2020-02-20] MEDS: AMLODIPINE 10 MG TABLET GT SCH (08:55)
[2020-02-20] MEDS: COD LIVER OIL/ZINC OXIDE OINT 113 GM TUBE TP SCH ×2 (08:55→21:25)
[2020-02-20] MEDS: NUTRISOURCE FIBER 4 GM PACKET GT SCH (08:55)
[2020-02-20] MEDS: CLINDAMYCIN TP SCH (08:55)
[2020-02-20] MEDS: BACLOFEN 10 MG TABLET GT SCH ×2 (10:16→20:19)
[2020-02-20] MEDS: JEVITY 1.2 1000 ML LIQUID GT PRN (11:20)
[2020-02-20 14:25] VITALS: BP 102/55
--- NOTE | 2020-02-20 15:27 | NUR ---
Patient seen by Dr. Rogel on 02/19/2020 for her routine annual eye exam. Please see optometry notes in patient's chart for details.
--- NOTE | 2020-02-20 17:30 | NUR ---
provided zoom for patient with mother, patient stable no signs of pain or discomfor. will continue to monitor.
--- NOTE | 2020-02-20 19:11 | NUR ---
NEW ORDER CARRIED OUT TO Aristides/Young NICOLE FROM DR. GERARDO Graham
[2020-02-20 20:49] VITALS: BP 117/68
[2020-02-20] MEDS: FERROUS SULFATE 330 MG/7.5 ML UDC- FOR SA ONLY GT SCH (21:24)
[2020-02-20] MEDS: MELATONIN 5MG TABLET GT SCH (21:24)
[2020-02-20] MEDS: MULTIVIT, IRON, MIN NO. 8, FA TABLET GT SCH (21:24)
[2020-02-20] MEDS: ADAPALENE 0.3% TP SCH (21:25)
[2020-02-20] MEDS: MINERAL OIL/PETROLATUM,WHITE 57 GM TUBE TP SCH (21:25)
[2020-02-21] MEDS: JEVITY 1.2 1000 ML LIQUID GT PRN ×2 (03:34→17:37)
[2020-02-21] MEDS: FAMOTIDINE 20 MG TABLET GT SCH (05:44)
[2020-02-21 07:39] VITALS: BP 110/59
[2020-02-21] MEDS: LACOSAMIDE 100 MG/10 ML UDC GT SCH ×2 (08:34→20:56)
[2020-02-21] MEDS: ACIDOPHILUS/BULGARICUS CHEW TAB GT SCH ×2 (08:34→20:57)
[2020-02-21] MEDS: levETIRAcetam 500 MG/5 ML LIQUID UDC GT SCH ×2 (08:34→20:56)
[2020-02-21] MEDS: AMLODIPINE 10 MG TABLET GT SCH (08:49)
[2020-02-21] MEDS: COD LIVER OIL/ZINC OXIDE OINT 113 GM TUBE TP SCH ×2 (08:49→20:59)
[2020-02-21] MEDS: CLINDAMYCIN TP SCH (08:49)
[2020-02-21] MEDS: NUTRISOURCE FIBER 4 GM PACKET GT SCH (08:49)
[2020-02-21] MEDS: METOPROLOL TARTRATE 50 MG TABLET GT SCH ×2 (08:49→20:58)
[2020-02-21] MEDS: HYDROGEN PEROXIDE 3% 118 ML BOTTLE TOP SCH ×2 (09:10→19:13)
[2020-02-21] MEDS: BACLOFEN 10 MG TABLET GT SCH ×2 (10:02→20:56)
[2020-02-21 14:42] VITALS: BP 102/56
--- NOTE | 2020-02-21 17:30 | NUR ---
provided zoom for patient with mother, no sign of any pain or discomfort noted, will continue to monitor.
[2020-02-21 20:09] VITALS: BP 120/48
[2020-02-21] MEDS: FERROUS SULFATE 330 MG/7.5 ML UDC- FOR SA ONLY GT SCH (20:56)
[2020-02-21] MEDS: MELATONIN 5MG TABLET GT SCH (20:58)
[2020-02-21] MEDS: ADAPALENE 0.3% TP SCH (20:59)
[2020-02-21] MEDS: MULTIVIT, IRON, MIN NO. 8, FA TABLET GT SCH (20:59)
[2020-02-21] MEDS: MINERAL OIL/PETROLATUM,WHITE 57 GM TUBE TP SCH (20:59)
--- NOTE | 2020-02-21 21:10 | NUR ---
Pt received on Cool Aerosol 28%-FIO2 via T-piece. Pt has bilateral and equal diminished clear B/S. Suctioned small amounts of white yellow tinged secretions. Bag/valve/mask and back up trach at bedside. No signs or symptoms of respiratory distress noted. Will continue to monitor.
[2020-02-22] MEDS: FAMOTIDINE 20 MG TABLET GT SCH (06:40)
[2020-02-22 07:38] VITALS: BP 125/77
[2020-02-22] MEDS: HYDROGEN PEROXIDE 3% 118 ML BOTTLE TOP SCH ×2 (07:57→18:51)
[2020-02-22] MEDS: levETIRAcetam 500 MG/5 ML LIQUID UDC GT SCH ×2 (08:06→20:15)
[2020-02-22] MEDS: ACIDOPHILUS/BULGARICUS CHEW TAB GT SCH ×2 (08:06→20:16)
[2020-02-22] MEDS: LACOSAMIDE 100 MG/10 ML UDC GT SCH ×2 (08:06→20:15)
[2020-02-22] MEDS: NUTRISOURCE FIBER 4 GM PACKET GT SCH (08:07)
[2020-02-22] MEDS: COD LIVER OIL/ZINC OXIDE OINT 113 GM TUBE TP SCH ×2 (08:07→20:18)
[2020-02-22] MEDS: CLINDAMYCIN TP SCH (08:07)
[2020-02-22] MEDS: AMLODIPINE 10 MG TABLET GT SCH (08:07)
[2020-02-22] MEDS: METOPROLOL TARTRATE 50 MG TABLET GT SCH ×2 (08:07→20:17)
[2020-02-22] MEDS: BACLOFEN 10 MG TABLET GT SCH ×2 (10:00→20:15)
[2020-02-22] MEDS: JEVITY 1.2 1000 ML LIQUID GT PRN (13:30)
[2020-02-22] MEDS: FERROUS SULFATE 330 MG/7.5 ML UDC- FOR SA ONLY GT SCH (20:15)
[2020-02-22] MEDS: MULTIVIT, IRON, MIN NO. 8, FA TABLET GT SCH (20:18)
[2020-02-22] MEDS: MELATONIN 5MG TABLET GT SCH (20:18)
[2020-02-22] MEDS: MINERAL OIL/PETROLATUM,WHITE 57 GM TUBE TP SCH (20:18)
[2020-02-22] MEDS: ADAPALENE 0.3% TP SCH (20:19)
[2020-02-22 20:22] VITALS: BP 132/58
[2020-02-23] MEDS: FAMOTIDINE 20 MG TABLET GT SCH (06:00)
[2020-02-23] MEDS: JEVITY 1.2 1000 ML LIQUID GT PRN (07:09)
[2020-02-23 07:56] VITALS: BP 138/55
[2020-02-23] MEDS: METOPROLOL TARTRATE 50 MG TABLET GT SCH ×2 (08:08→20:01)
[2020-02-23] MEDS: ACIDOPHILUS/BULGARICUS CHEW TAB GT SCH ×2 (08:08→20:00)
[2020-02-23] MEDS: COD LIVER OIL/ZINC OXIDE OINT 113 GM TUBE TP SCH ×2 (08:09→20:01)
[2020-02-23] MEDS: AMLODIPINE 10 MG TABLET GT SCH (08:09)
[2020-02-23] MEDS: NUTRISOURCE FIBER 4 GM PACKET GT SCH (08:09)
[2020-02-23] MEDS: CLINDAMYCIN TP SCH (08:09)
[2020-02-23] MEDS: levETIRAcetam 500 MG/5 ML LIQUID UDC GT SCH ×2 (08:10→20:00)
[2020-02-23] MEDS: LACOSAMIDE 100 MG/10 ML UDC GT SCH ×2 (08:23→20:00)
[2020-02-23] MEDS: HYDROGEN PEROXIDE 3% 118 ML BOTTLE TOP SCH ×2 (09:48→21:41)
[2020-02-23] MEDS: BACLOFEN 10 MG TABLET GT SCH ×2 (10:57→20:00)
--- NOTE | 2020-02-23 13:30 | NUR ---
SEEN BY QUAN Sharma AND WITH NNO.
[2020-02-23] MEDS: FERROUS SULFATE 330 MG/7.5 ML UDC- FOR SA ONLY GT SCH (20:00)
[2020-02-23] MEDS: MELATONIN 5MG TABLET GT SCH (20:01)
[2020-02-23] MEDS: MINERAL OIL/PETROLATUM,WHITE 57 GM TUBE TP SCH (20:01)
[2020-02-23] MEDS: ADAPALENE 0.3% TP SCH (20:01)
[2020-02-23] MEDS: MULTIVIT, IRON, MIN NO. 8, FA TABLET GT SCH (20:01)
[2020-02-23 20:34] VITALS: BP 122/67
--- NOTE | 2020-02-23 20:52 | NUR ---
Received pt on cool aerosol with FIO2-28% via T-Piece. No s/s of respiratory distress noted. Airway care and trach care done, pt responded to physical stimuli. Resus. bag and back up trach at bedside. Cont. monitor.
[2020-02-24] MEDS: FAMOTIDINE 20 MG TABLET GT SCH (06:29)
[2020-02-24] MEDS: JEVITY 1.2 1000 ML LIQUID GT PRN ×2 (06:47→21:30)
[2020-02-24 07:22] VITALS: BP 115/77
[2020-02-24] MEDS: LACOSAMIDE 100 MG/10 ML UDC GT SCH ×2 (08:00→20:11)
[2020-02-24] MEDS: HYDROGEN PEROXIDE 3% 118 ML BOTTLE TOP SCH ×2 (08:15→21:26)
[2020-02-24] MEDS: ACIDOPHILUS/BULGARICUS CHEW TAB GT SCH ×2 (08:38→20:11)
[2020-02-24] MEDS: levETIRAcetam 500 MG/5 ML LIQUID UDC GT SCH ×2 (08:38→20:11)
[2020-02-24] MEDS: CLINDAMYCIN TP SCH (08:39)
[2020-02-24] MEDS: NUTRISOURCE FIBER 4 GM PACKET GT SCH (08:39)
[2020-02-24] MEDS: COD LIVER OIL/ZINC OXIDE OINT 113 GM TUBE TP SCH ×2 (08:39→20:12)
[2020-02-24] MEDS: AMLODIPINE 10 MG TABLET GT SCH (08:39)
[2020-02-24] MEDS: METOPROLOL TARTRATE 50 MG TABLET GT SCH ×2 (08:39→20:12)
--- NOTE | 2020-02-24 09:19 | NUR ---
SAPNA received an email this morning from patient's mother Abdoul, in response to this SAPNA's email sent on 02/17, stating that she would like to participate in the IDT meeting. SAPNA instructed Abdoul via email to be available between 11am-12pm in order to receive the call.
[2020-02-24] MEDS: BACLOFEN 10 MG TABLET GT SCH ×2 (10:00→20:11)
--- NOTE | 2020-02-24 16:30 | NUR ---
INTERDISCIPLINARY PLAN OF CARE CONFERENCE was held today. Patient's mother Abdoul participated in the meeting through speaker phone. Dr. Ramos and the Interdisciplinary Team reviewed the current plan of care in detail. RN reported on patient's medical condition, findings of recent labs, and recent UTI treatment. See RN IDT conference notes. Pharmacy and RT did not reports any changes at this time. RD discussed slight weight gain, and stated that weight would be monitored weekly. See all disciplines IDT notes and physician's progress notes for additional details. Abdoul's questions were addressed by the IDT team and by Dr. Ramos, and Abdoul expressed understanding of the current treatment plan.
--- NOTE | 2020-02-24 18:00 | NUR ---
Abdoul perla's mother made aware about new orders to check Covid 19 today.
[2020-02-24] MEDS: FERROUS SULFATE 330 MG/7.5 ML UDC- FOR SA ONLY GT SCH (20:11)
[2020-02-24] MEDS: MULTIVIT, IRON, MIN NO. 8, FA TABLET GT SCH (20:12)
[2020-02-24] MEDS: MELATONIN 5MG TABLET GT SCH (20:12)
[2020-02-24] MEDS: MINERAL OIL/PETROLATUM,WHITE 57 GM TUBE TP SCH (20:12)
[2020-02-24] MEDS: ADAPALENE 0.3% TP SCH (20:14)
[2020-02-24 22:07] VITALS: BP 127/61
--- NOTE | 2020-02-25 02:38 | NUR ---
PT ON CONT P/MIST @ 28% VIA T/PIECE, SX PRN, GOOD COUGH EFFORT, NO GURGLING, SLIGHT TEETH GRINDING AT TIMES, NO SOB NOTED, DRAIN TUBINGS, REPLACE NEB WATER BOTTLE. Aristides SHAW RCP Addendum: 02/25/20 at 0240 by MATT SHAW RT Amended: Links added.
[2020-02-25] MEDS: FAMOTIDINE 20 MG TABLET GT SCH (05:53)
[2020-02-25] MEDS: HYDROGEN PEROXIDE 3% 118 ML BOTTLE TOP SCH ×2 (07:29→18:36)
[2020-02-25 07:44] LABS: ALANINE AMINOTRANSFERASE 62 U/L (14-59); ALKALINE PHOSPHATASE 90 U/L (50-136); ASPARTATE AMINOTRANSFERASE 52 U/L (15-37); BILIRUBIN,TOTAL 0.3 mg/dL (0.2-1.0); CARBON DIOXIDE 25 mmol/L (21-32); CHLORIDE 104 mmol/L (98-107); CREATININE 0.4 mg/dL (0.6-1.3); GLUCOSE 93 mg/dL (74-106); POTASSIUM 5.5 mmol/L (3.5-5.1); TOTAL PROTEIN, SERUM 8.1 g/dL (6.4-8.2); UREA NITROGEN, BLOOD 15 mg/dL (7-18)
[2020-02-25 07:50] VITALS: BP 114/42
[2020-02-25] MEDS: LACOSAMIDE 100 MG/10 ML UDC GT SCH ×2 (08:50→20:22)
[2020-02-25] MEDS: levETIRAcetam 500 MG/5 ML LIQUID UDC GT SCH ×2 (08:50→20:22)
[2020-02-25] MEDS: COD LIVER OIL/ZINC OXIDE OINT 113 GM TUBE TP SCH ×2 (08:51→20:24)
[2020-02-25] MEDS: CLINDAMYCIN TP SCH (08:51)
[2020-02-25] MEDS: NUTRISOURCE FIBER 4 GM PACKET GT SCH (08:51)
[2020-02-25] MEDS: ACIDOPHILUS/BULGARICUS CHEW TAB GT SCH ×2 (08:51→20:22)
[2020-02-25] MEDS: METOPROLOL TARTRATE 50 MG TABLET GT SCH ×2 (08:53→20:22)
[2020-02-25] MEDS: AMLODIPINE 10 MG TABLET GT SCH (08:54)
[2020-02-25 10:06] LABS: BASOPHILS % (AUTO) 0.7 % (0.0-2.0); EOSINOPHILS # (AUTO) 0.4 K/uL (0.0-0.7); EOSINOPHILS % (AUTO) 5.5 % (0.0-7.0); HEMATOCRIT 39.3 % (31.2-41.9); HEMOGLOBIN 12.9 g/dL (10.9-14.3); LYMPHOCYTES # (AUTO) 1.9 K/uL (20.0-40.0); LYMPHOCYTES % (AUTO) 28.1 % (20.5-51.5); MEAN CORPUSCULAR HEMOGLOBIN 29.5 uug (24.7-32.8); MEAN CORPUSCULAR HGB CONC 33 g/dL (32.3-35.6); MEAN CORPUSCULAR VOLUME 89.8 fL (75.5-95.3); MONOCYTES # (AUTO) 0.5 K/uL (2.0-10.0); MONOCYTES % (AUTO) 6.9 % (0.0-11.0); NEUTROPHILS # (AUTO) 3.9 K/uL (1.8-8.9); NEUTROPHILS % (AUTO) 58.8 % (38.5-71.5); PLATELET COUNT (AUTO) 322 K/uL (179-408); RED BLOOD CELL COUNT(AUTO) 4.38 MIL/uL (3.63-4.92); WHITE BLOOD COUNT (AUTO) 6.7 K/uL (3.8-11.8)
[2020-02-25] MEDS: BACLOFEN 10 MG TABLET GT SCH ×2 (10:19→20:25)
--- NOTE | 2020-02-25 17:39 | NUR ---
Seen and examined by Dr Kiran made aware of the labs results with new orders noted.
--- NOTE | 2020-02-25 19:30 | NUR ---
Mother was concerned regarding indurations or discolorations on the abdomen,check with 2 nurses,no abdominal induration o discolorations noted.
--- NOTE | 2020-02-25 20:14 | NUR ---
Yahir from ultrasound stated that he is not able to do abdominal ultrasound tonight and stated to hold gt feeding at midnight in preparation for abdominal ultrasound tomorrow at 0900.
[2020-02-25 20:16] VITALS: BP 105/52
[2020-02-25] MEDS: MULTIVIT, IRON, MIN NO. 8, FA TABLET GT SCH (20:23)
[2020-02-25] MEDS: MELATONIN 5MG TABLET GT SCH (20:23)
[2020-02-25] MEDS: ADAPALENE 0.3% TP SCH (20:24)
[2020-02-25] MEDS: MINERAL OIL/PETROLATUM,WHITE 57 GM TUBE TP SCH (20:24)
[2020-02-25] MEDS: FERROUS SULFATE 330 MG/7.5 ML UDC- FOR SA ONLY GT SCH (20:25)
--- NOTE | 2020-02-26 | NUR ---
Gt feeding on hold at this time in preparation for abdominal ultrasound in the morning. Patient is sleeping, no signs of any discomfort noted. Kept clean and comfortable.
[2020-02-26] MEDS: FAMOTIDINE 20 MG TABLET GT SCH (06:06)
[2020-02-26 07:06] LABS: BASOPHILS # (AUTO) 0.1 K/uL (0.0-8.0); BASOPHILS % (AUTO) 0.5 % (0.0-2.0); EOSINOPHILS # (AUTO) 0.4 K/uL (0.0-0.7); EOSINOPHILS % (AUTO) 4.2 % (0.0-7.0); HEMATOCRIT 39.3 % (31.2-41.9); HEMOGLOBIN 13.1 g/dL (10.9-14.3); LYMPHOCYTES # (AUTO) 1.6 K/uL (20.0-40.0); LYMPHOCYTES % (AUTO) 16.4 % (20.5-51.5); MEAN CORPUSCULAR HGB CONC 33 g/dL (32.3-35.6); MEAN CORPUSCULAR VOLUME 90.3 fL (75.5-95.3); MONOCYTES # (AUTO) 0.7 K/uL (2.0-10.0); MONOCYTES % (AUTO) 7.1 % (0.0-11.0); NEUTROPHILS # (AUTO) 6.9 K/uL (1.8-8.9); NEUTROPHILS % (AUTO) 71.8 % (38.5-71.5); PLATELET COUNT (AUTO) 288 K/uL (179-408); RED BLOOD CELL COUNT(AUTO) 4.35 MIL/uL (3.63-4.92); WHITE BLOOD COUNT (AUTO) 9.7 K/uL (3.8-11.8)
[2020-02-26 07:08] LABS: ALANINE AMINOTRANSFERASE 63 U/L (14-59); ALKALINE PHOSPHATASE 94 U/L (50-136); ASPARTATE AMINOTRANSFERASE 21 U/L (15-37); BILIRUBIN,DIRECT 0.1 mg/dL (0.0-0.2); BILIRUBIN,TOTAL 0.2 mg/dL (0.2-1.0); CARBON DIOXIDE 27 mmol/L (21-32); CHLORIDE 104 mmol/L (98-107); CREATININE 0.5 mg/dL (0.6-1.3); GLUCOSE 89 mg/dL (74-106); MAGNESIUM 2.2 mg/dL (1.8-2.4); PHOSPHOROUS 4.8 mg/dL (2.5-4.9); TOTAL PROTEIN, SERUM 7.9 g/dL (6.4-8.2); UREA NITROGEN, BLOOD 16 mg/dL (7-18)
[2020-02-26 07:21] VITALS: BP 135/42
[2020-02-26] MEDS: levETIRAcetam 500 MG/5 ML LIQUID UDC GT SCH ×2 (08:00→20:58)
[2020-02-26] MEDS: LACOSAMIDE 100 MG/10 ML UDC GT SCH ×2 (08:00→20:58)
[2020-02-26] MEDS: NUTRISOURCE FIBER 4 GM PACKET GT SCH (09:00)
[2020-02-26] MEDS: CLINDAMYCIN TP SCH (09:00)
[2020-02-26] MEDS: METOPROLOL TARTRATE 50 MG TABLET GT SCH ×2 (09:00→21:13)
[2020-02-26] MEDS: COD LIVER OIL/ZINC OXIDE OINT 113 GM TUBE TP SCH ×2 (09:00→21:15)
[2020-02-26] MEDS: AMLODIPINE 10 MG TABLET GT SCH (09:00)
[2020-02-26] MEDS: ACIDOPHILUS/BULGARICUS CHEW TAB GT SCH ×2 (09:00→21:12)
[2020-02-26] MEDS: HYDROGEN PEROXIDE 3% 118 ML BOTTLE TOP SCH ×2 (09:58→18:59)
[2020-02-26] MEDS: BACLOFEN 10 MG TABLET GT SCH ×2 (10:04→20:58)
--- NOTE | 2020-02-26 14:25 | NUR ---
This social media specialist received a copy of the "Petition for appointment of probate conservatorship" for the patient from Dr. Clinton Kiran. Dr. Kiran had delivered this form and had left the form on this social media specialist's desk.
[2020-02-26] MEDS: JEVITY 1.2 1000 ML LIQUID GT PRN (17:39)
[2020-02-26 20:41] VITALS: BP 112/62
[2020-02-26] MEDS: FERROUS SULFATE 330 MG/7.5 ML UDC- FOR SA ONLY GT SCH (21:12)
[2020-02-26] MEDS: MULTIVIT, IRON, MIN NO. 8, FA TABLET GT SCH (21:13)
[2020-02-26] MEDS: MELATONIN 5MG TABLET GT SCH (21:13)
[2020-02-26] MEDS: MINERAL OIL/PETROLATUM,WHITE 57 GM TUBE TP SCH (21:15)
[2020-02-26] MEDS: ADAPALENE 0.3% TP SCH (21:15)
[2020-02-26] MEDS: RIVAROXABAN 10 MG TABLET GT SCH (21:49)
--- NOTE | 2020-02-27 01:27 | NUR ---
Patient is afebrile, No respiratory distress noted, 02 sat is 98%, will continue monitor.
--- NOTE | 2020-02-27 02:30 | NUR ---
Patient's mother Marilee called back about a message she received @ around 2029. I informed herthat it was about a possible COVID-19 exposure on the subacute unit and I informed her of the testing plan for the next 14 days, as mandated by [facility] regulations. I informed her that she would be notified by nursing staff after each test result is available. Marilee expressed understanding.
[2020-02-27] MEDS: FAMOTIDINE 20 MG TABLET GT SCH (06:15)
[2020-02-27 07:42] VITALS: BP 119/62
[2020-02-27] MEDS: LACOSAMIDE 100 MG/10 ML UDC GT SCH ×2 (08:53→20:35)
[2020-02-27] MEDS: levETIRAcetam 500 MG/5 ML LIQUID UDC GT SCH ×2 (08:54→20:35)
[2020-02-27] MEDS: METOPROLOL TARTRATE 50 MG TABLET GT SCH ×2 (08:54→20:38)
[2020-02-27] MEDS: ACIDOPHILUS/BULGARICUS CHEW TAB GT SCH ×2 (08:54→20:36)
[2020-02-27] MEDS: AMLODIPINE 10 MG TABLET GT SCH (08:55)
[2020-02-27] MEDS: COD LIVER OIL/ZINC OXIDE OINT 113 GM TUBE TP SCH ×2 (08:55→20:39)
[2020-02-27] MEDS: NUTRISOURCE FIBER 4 GM PACKET GT SCH (08:55)
[2020-02-27] MEDS: CLINDAMYCIN TP SCH (08:55)
[2020-02-27] MEDS: BACLOFEN 10 MG TABLET GT SCH ×2 (10:18→20:35)
[2020-02-27] MEDS: HYDROGEN PEROXIDE 3% 118 ML BOTTLE TOP SCH ×2 (10:20→21:13)
--- NOTE | 2020-02-27 14:28 | NUR ---
2:07pm: SAPNA called patient's mother Abdoul [phone] in response to a voicemail message Abdoul had left this SW. Abdoul was available. Abdoul asked this SW if this SW received a copy of the "petition for appointment of probate conservatorship". This SW stated that Dr. Kiran had left it on this SW's office desk on 02/25. Abdoul then stated that she had also instructed for Dr. Kiran to leave a copy in the patient's room, and Abdoul asked this SW if SW knew whether Dr. Kiran had left a copy of it in the patient's room, specifically in the top drawer of the patient's night stand. SAPNA stated that SAPNA was not aware if Dr. Kiran provided the patient with a copy, per Abdoul's instructions. Abdoul asked if SW could check the patient's night stand. SW stated that SW would check and call Abdoul back. Abdoul expressed agreement. 2:15pm: This SW and subacute adjunct nursing faculty Nick Goldberg went to the patient's room and [facility]. It was observed by this SW and Nick Goldberg that the white envelope mentioned by Abdoul was in the drawer. At 2:20pm, this SW called Abdoul back and left her a voicemail message stating that the white envelope Abdoul was referring to was in the top drawer of the patient's night stand.
--- NOTE | 2020-02-27 15:34 | NUR ---
Per patient's mother Abdoul's instructions, this SW filed the copy of the "petition for appointment of probate conservatorship" form in the patient's chart.
--- NOTE | 2020-02-27 18:15 | NUR ---
zoom meeting provided to pt's mother. pt is in bed awake, calm, and no signs of distress.
[2020-02-27 20:14] VITALS: BP 120/54
[2020-02-27] MEDS: FERROUS SULFATE 330 MG/7.5 ML UDC- FOR SA ONLY GT SCH (20:36)
[2020-02-27] MEDS: MELATONIN 5MG TABLET GT SCH (20:38)
[2020-02-27] MEDS: ADAPALENE 0.3% TP SCH (20:39)
[2020-02-27] MEDS: MINERAL OIL/PETROLATUM,WHITE 57 GM TUBE TP SCH (20:39)
[2020-02-27] MEDS: MULTIVIT, IRON, MIN NO. 8, FA TABLET GT SCH (20:39)
[2020-02-27] MEDS: RIVAROXABAN 10 MG TABLET GT SCH (21:53)
--- NOTE | 2020-02-27 22:00 | NUR ---
Pt received on 28% cool aerosol T-piece to trach. No signs of respiratory distress noted at this time. Breath sounds clear/diminished. Suctioned with small amounts of white-yellowish secretions. Trach care done. Aerosol tubing/drain bag cleared. Will continue to monitor throughout shift.
[2020-02-28] MEDS: FAMOTIDINE 20 MG TABLET GT SCH (05:19)
[2020-02-28] MEDS: JEVITY 1.2 1000 ML LIQUID GT PRN ×2 (06:00→20:26)
[2020-02-28 07:47] VITALS: BP 94/51
[2020-02-28] MEDS: ACIDOPHILUS/BULGARICUS CHEW TAB GT SCH ×2 (08:39→20:31)
[2020-02-28] MEDS: LACOSAMIDE 100 MG/10 ML UDC GT SCH ×2 (08:39→20:30)
[2020-02-28] MEDS: levETIRAcetam 500 MG/5 ML LIQUID UDC GT SCH ×2 (08:39→20:29)
[2020-02-28] MEDS: AMLODIPINE 10 MG TABLET GT SCH (08:40)
[2020-02-28] MEDS: METOPROLOL TARTRATE 50 MG TABLET GT SCH ×2 (08:40→20:31)
[2020-02-28] MEDS: NUTRISOURCE FIBER 4 GM PACKET GT SCH (08:41)
[2020-02-28] MEDS: CLINDAMYCIN TP SCH (08:42)
[2020-02-28] MEDS: COD LIVER OIL/ZINC OXIDE OINT 113 GM TUBE TP SCH ×2 (08:42→20:32)
[2020-02-28] MEDS: HYDROGEN PEROXIDE 3% 118 ML BOTTLE TOP SCH ×2 (09:07→21:29)
--- NOTE | 2020-02-28 09:10 | NUR ---
SEE RESPIRATORY PROGRESS NOTE.
[2020-02-28] MEDS: BACLOFEN 10 MG TABLET GT SCH ×2 (10:50→20:30)
[2020-02-28] MEDS: MELATONIN 5MG TABLET GT SCH (20:31)
[2020-02-28] MEDS: FERROUS SULFATE 330 MG/7.5 ML UDC- FOR SA ONLY GT SCH (20:31)
[2020-02-28] MEDS: MULTIVIT, IRON, MIN NO. 8, FA TABLET GT SCH (20:31)
[2020-02-28] MEDS: MINERAL OIL/PETROLATUM,WHITE 57 GM TUBE TP SCH (20:32)
[2020-02-28] MEDS: RIVAROXABAN 10 MG TABLET GT SCH (20:32)
[2020-02-28] MEDS: ADAPALENE 0.3% TP SCH (20:32)
[2020-02-28 20:56] VITALS: BP 137/85
[2020-02-28 22:00] VITALS: BP 118/69
--- NOTE | 2020-02-28 23:53 | NUR ---
PATIENT ON CONT P/MIST @ 28% VIA T/PIECE, WITH NO SIGNS OF RESP. DISTRESS; TEETH GRINDING AT TIMES, NO GURGLING, GOOD COUGH EFFORT, SUCTIONED WHITISH TINGE SECRETIONS, DRAIN TUBINGS, CHANGE ANNE, CHANGE NEB H2O, PT STABLE.Aristides SHAW VEST FINISHER Addendum: 02/28/20 at 2356 by MATT SHAW RT Amended: Links added.
[2020-02-29] MEDS: FAMOTIDINE 20 MG TABLET GT SCH (05:16)
[2020-02-29 07:43] VITALS: BP 111/74
[2020-02-29] MEDS: levETIRAcetam 500 MG/5 ML LIQUID UDC GT SCH ×2 (08:12→20:29)
[2020-02-29] MEDS: LACOSAMIDE 100 MG/10 ML UDC GT SCH ×2 (08:13→20:29)
[2020-02-29] MEDS: AMLODIPINE 10 MG TABLET GT SCH (08:13)
[2020-02-29] MEDS: METOPROLOL TARTRATE 50 MG TABLET GT SCH ×2 (08:13→21:07)
[2020-02-29] MEDS: ACIDOPHILUS/BULGARICUS CHEW TAB GT SCH ×2 (08:13→21:06)
[2020-02-29] MEDS: COD LIVER OIL/ZINC OXIDE OINT 113 GM TUBE TP SCH ×2 (08:17→21:07)
[2020-02-29] MEDS: NUTRISOURCE FIBER 4 GM PACKET GT SCH (08:17)
[2020-02-29] MEDS: CLINDAMYCIN TP SCH (08:17)
[2020-02-29] MEDS: HYDROGEN PEROXIDE 3% 118 ML BOTTLE TOP SCH ×2 (09:00→21:00)
[2020-02-29] MEDS: BACLOFEN 10 MG TABLET GT SCH ×2 (10:00→20:29)
[2020-02-29] MEDS: JEVITY 1.2 1000 ML LIQUID GT PRN (16:23)
[2020-02-29 20:49] VITALS: BP 129/70
[2020-02-29] MEDS: RIVAROXABAN 10 MG TABLET GT SCH (21:00)
[2020-02-29] MEDS: FERROUS SULFATE 330 MG/7.5 ML UDC- FOR SA ONLY GT SCH (21:06)
[2020-02-29] MEDS: ADAPALENE 0.3% TP SCH (21:07)
[2020-02-29] MEDS: MELATONIN 5MG TABLET GT SCH (21:07)
[2020-02-29] MEDS: MULTIVIT, IRON, MIN NO. 8, FA TABLET GT SCH (21:07)
[2020-02-29] MEDS: MINERAL OIL/PETROLATUM,WHITE 57 GM TUBE TP SCH (21:08)
--- NOTE | 2020-03-01 01:54 | NUR ---
PATIENT ON CONT P/MIST @ 28% VIA T/PIECE AND SECURED, PT WITH GOOD COUGH EFFORT, SUCTIONED BASICALLY WHITISH TINGE SECRETIONS, DRAIN TUBINGS, CLEAN TRACH GUANACO, SLIGHT TEETH GRINDING, NO SOB NOTED, DOING WELL, CHANGE H20 ON P/MIST. Aristides BOYLEP Addendum: 03/01/20 at 0155 by MATT SHAW RT Amended: Links added.
[2020-03-01] MEDS: FAMOTIDINE 20 MG TABLET GT SCH (05:47)
[2020-03-01 08:03] VITALS: BP 95/66
[2020-03-01] MEDS: levETIRAcetam 500 MG/5 ML LIQUID UDC GT SCH ×2 (08:45→20:40)
[2020-03-01] MEDS: ACIDOPHILUS/BULGARICUS CHEW TAB GT SCH ×2 (08:45→20:58)
[2020-03-01] MEDS: LACOSAMIDE 100 MG/10 ML UDC GT SCH ×2 (08:45→20:40)
[2020-03-01] MEDS: METOPROLOL TARTRATE 50 MG TABLET GT SCH ×2 (08:46→20:59)
[2020-03-01] MEDS: NUTRISOURCE FIBER 4 GM PACKET GT SCH (08:47)
[2020-03-01] MEDS: AMLODIPINE 10 MG TABLET GT SCH (08:47)
[2020-03-01] MEDS: CLINDAMYCIN TP SCH (08:47)
[2020-03-01] MEDS: COD LIVER OIL/ZINC OXIDE OINT 113 GM TUBE TP SCH ×2 (08:47→21:00)
[2020-03-01] MEDS: HYDROGEN PEROXIDE 3% 118 ML BOTTLE TOP SCH ×2 (09:16→18:56)
[2020-03-01] MEDS: BACLOFEN 10 MG TABLET GT SCH ×2 (10:00→20:40)
--- NOTE | 2020-03-01 16:37 | NUR ---
11:00am: Risk Management meeting held today to discuss patient's mother Abdoul's ongoing volatile behavior and suitability for applying for conservatorship. It was agreed that this SW would consult with the [facility]. 12:02pm: SW called [facility], , and spoke with Abimael. Concerns regarding patient's mother Abdoul's suitability for conservatorship were discussed. Abimael's recommendations were for this SW to submit another SOC 341 to the [facility] and to [facility], and stated that staff can also contact the Public Guardian's office to file a complaint. SW informed subacute real estate office manager Nick Goldberg, YARI Liu, and Director Germaine Gonzalez of conversation with the [facility], and the recommended action plan. All were in agreement, and therefore this SW will follow up with submitting an SOC 341 and contacting the Public Guardian office.
--- NOTE | 2020-03-01 16:56 | NUR ---
Per instructions from the [facility], SAPNA faxed the SOC 341 to the [facility] at [phone] (tel # [phone]). SAPNA tried faxing the SOC 341 to [facility], as instructed by the [facility], but the fax number provided by the [facility] for [facility] was incorrect, . SAPNA will follow up with the [facility] to obtain accurate fax number.
[2020-03-01 20:18] VITALS: BP 108/62
[2020-03-01] MEDS: FERROUS SULFATE 330 MG/7.5 ML UDC- FOR SA ONLY GT SCH (20:58)
[2020-03-01] MEDS: MELATONIN 5MG TABLET GT SCH (21:00)
[2020-03-01] MEDS: MULTIVIT, IRON, MIN NO. 8, FA TABLET GT SCH (21:00)
[2020-03-01] MEDS: ADAPALENE 0.3% TP SCH (21:00)
[2020-03-01] MEDS: RIVAROXABAN 10 MG TABLET GT SCH (21:00)
[2020-03-01] MEDS: MINERAL OIL/PETROLATUM,WHITE 57 GM TUBE TP SCH (21:00)
[2020-03-02] MEDS: FAMOTIDINE 20 MG TABLET GT SCH (05:57)
[2020-03-02] MEDS: JEVITY 1.2 1000 ML LIQUID GT PRN (07:11)
[2020-03-02 07:55] VITALS: BP 96/61
[2020-03-02] MEDS: levETIRAcetam 500 MG/5 ML LIQUID UDC GT SCH ×2 (08:00→20:15)
[2020-03-02] MEDS: LACOSAMIDE 100 MG/10 ML UDC GT SCH ×2 (08:00→20:16)
[2020-03-02] MEDS: HYDROGEN PEROXIDE 3% 118 ML BOTTLE TOP SCH ×2 (08:04→21:20)
[2020-03-02] MEDS: AMLODIPINE 10 MG TABLET GT SCH (09:00)
[2020-03-02] MEDS: METOPROLOL TARTRATE 50 MG TABLET GT SCH ×2 (09:00→21:56)
[2020-03-02] MEDS: ACIDOPHILUS/BULGARICUS CHEW TAB GT SCH ×2 (09:04→20:17)
[2020-03-02] MEDS: CLINDAMYCIN TP SCH (09:05)
[2020-03-02] MEDS: BACLOFEN 10 MG TABLET GT SCH ×2 (09:05→20:15)
[2020-03-02] MEDS: NUTRISOURCE FIBER 4 GM PACKET GT SCH (09:05)
[2020-03-02] MEDS: COD LIVER OIL/ZINC OXIDE OINT 113 GM TUBE TP SCH ×2 (09:05→20:20)
--- NOTE | 2020-03-02 12:10 | NUR ---
SAPNA called the [facility]'s office this morning and spoke with Neena. The reason for the call was to get an alternate fax number for [facility] since the once provided yesterday was [id number] ([phone]). Neena provided SAPNA with the following fax number for [facility] ([phone], and a tel # [phone]). SAPNA faxed the SOC 341 to [facility] at [phone].
[2020-03-02 14:30] VITALS: BP 102/64
--- NOTE | 2020-03-02 16:03 | NUR ---
12:12pm: Per recommendation of the [facility], this SW called the Public Guardian's office [phone] to discuss concerns pertaining to the suitability of patient's mother petitioning to become patient's probate conservator. SW called and spoke with Deniz Shaw, [employer] on Duty. This SW expressed concerns about patient's mother's suitability to petition for probate conservatorship, and stated that this SW was referred to the public guardian's office by the [facility]. Deniz Shaw stated that because probate conservatorship is a private matter, the public guardian's office would only get involved if the court's requested them to. Deniz Shaw explained that the facility where the patient is would need to submit a letter to the courts expressing the concerns. The courts would then review the letter and ask the public guardian's office to get involved in the matter, if necessary. SAPNA thanked Deniz Shaw for his time. SAPNA reported all above to Risk Management.
--- NOTE | 2020-03-02 16:31 | NUR ---
4:09pm: SAPNA received a call from [facility] Golf Course Architect Nurse, Javy Coughlin, , in response to the SOC 341 this SW had faxed to [facility] earlier today. Javy Coughlin stated that given the nature of the report, which is about concerns pertaining to conservatorship, a report should be made to Adult Protective Services. Javy Coughlin stated that [facility] does not oversee conservatorship issues, and referred this SW to APS. SANPA consulted with Risk Management, and it was decided for social work lecturer to proceed with APS report.
--- NOTE | 2020-03-02 16:56 | NUR ---
APS report filed today; report # [id number]. Reason for report were concerns pertaining to patient's mother's suitability to be patient's probate conservatorship.
--- NOTE | 2020-03-02 18:55 | NUR ---
Abdoul pt's mother notified COVID-19 test result was negative.
[2020-03-02 20:00] VITALS: BP 119/76
[2020-03-02] MEDS: FERROUS SULFATE 330 MG/7.5 ML UDC- FOR SA ONLY GT SCH (20:16)
[2020-03-02] MEDS: MELATONIN 5MG TABLET GT SCH (20:18)
[2020-03-02] MEDS: MULTIVIT, IRON, MIN NO. 8, FA TABLET GT SCH (20:19)
[2020-03-02] MEDS: RIVAROXABAN 10 MG TABLET GT SCH (20:20)
[2020-03-02] MEDS: ADAPALENE 0.3% TP SCH (20:20)
[2020-03-02] MEDS: MINERAL OIL/PETROLATUM,WHITE 57 GM TUBE TP SCH (20:20)
[2020-03-02 22:00] VITALS: BP 102/48
[2020-03-03] MEDS: JEVITY 1.2 1000 ML LIQUID GT PRN (00:46)
[2020-03-03] MEDS: FAMOTIDINE 20 MG TABLET GT SCH (05:51)
[2020-03-03] MEDS: HYDROGEN PEROXIDE 3% 118 ML BOTTLE TOP SCH ×2 (07:25→21:34)
[2020-03-03 07:49] VITALS: BP 131/75
[2020-03-03] MEDS: LACOSAMIDE 100 MG/10 ML UDC GT SCH ×2 (08:20→20:10)
[2020-03-03] MEDS: ACIDOPHILUS/BULGARICUS CHEW TAB GT SCH ×2 (08:21→20:10)
[2020-03-03] MEDS: METOPROLOL TARTRATE 50 MG TABLET GT SCH ×2 (08:23→21:56)
[2020-03-03] MEDS: NUTRISOURCE FIBER 4 GM PACKET GT SCH (08:24)
[2020-03-03] MEDS: COD LIVER OIL/ZINC OXIDE OINT 113 GM TUBE TP SCH ×2 (08:24→20:11)
[2020-03-03] MEDS: AMLODIPINE 10 MG TABLET GT SCH (08:24)
[2020-03-03] MEDS: CLINDAMYCIN TP SCH (08:25)
[2020-03-03] MEDS: levETIRAcetam 500 MG/5 ML LIQUID UDC GT SCH ×2 (08:29→20:10)
[2020-03-03] MEDS: BACLOFEN 10 MG TABLET GT SCH ×2 (10:00→20:10)
--- NOTE | 2020-03-03 17:42 | NUR ---
Dr Ramos notified regarding the manager urgent care recommendation to decrease the feeding from 65 ml to 60 ml/hr x 20 hours,due to wt increase ,currently on weekly weights .orders carried out.
--- NOTE | 2020-03-03 17:45 | NUR ---
Pt mother Marilee,notified RE:decrease enteral feeding to 60 ml/hr x 20 hours.
--- NOTE | 2020-03-03 18:20 | NUR ---
Zoom meeting provided to pt's mother. pt is in bed awake, calm, and no signs of distress.
[2020-03-03 20:00] VITALS: BP 110/78
[2020-03-03] MEDS: FERROUS SULFATE 330 MG/7.5 ML UDC- FOR SA ONLY GT SCH (20:10)
[2020-03-03] MEDS: MULTIVIT, IRON, MIN NO. 8, FA TABLET GT SCH (20:10)
[2020-03-03] MEDS: MELATONIN 5MG TABLET GT SCH (20:10)
[2020-03-03] MEDS: MINERAL OIL/PETROLATUM,WHITE 57 GM TUBE TP SCH (20:11)
[2020-03-03] MEDS: ADAPALENE 0.3% TP SCH (20:11)
[2020-03-03] MEDS: RIVAROXABAN 10 MG TABLET GT SCH (20:11)
--- NOTE | 2020-03-03 20:52 | NUR ---
Received pt on cool aerosol with FIO2-28% via T-Piece. No respiratory distress noted. Airway care and trach care done, pt responded to physical stimuli. Trach care done. Resus. bag and back up trach at bedside. Cont. monitor.
[2020-03-03 22:00] VITALS: BP 92/41
[2020-03-04] MEDS: FAMOTIDINE 20 MG TABLET GT SCH (05:34)
[2020-03-04 07:30] VITALS: BP 108/53
[2020-03-04] MEDS: LACOSAMIDE 100 MG/10 ML UDC GT SCH ×2 (08:00→20:12)
[2020-03-04] MEDS: levETIRAcetam 500 MG/5 ML LIQUID UDC GT SCH ×2 (08:00→20:12)
[2020-03-04] MEDS: ACIDOPHILUS/BULGARICUS CHEW TAB GT SCH ×2 (09:16→20:12)
[2020-03-04] MEDS: NUTRISOURCE FIBER 4 GM PACKET GT SCH (09:17)
[2020-03-04] MEDS: METOPROLOL TARTRATE 50 MG TABLET GT SCH ×2 (09:17→21:07)
[2020-03-04] MEDS: AMLODIPINE 10 MG TABLET GT SCH (09:17)
[2020-03-04] MEDS: BACLOFEN 10 MG TABLET GT SCH ×2 (09:18→20:12)
[2020-03-04] MEDS: COD LIVER OIL/ZINC OXIDE OINT 113 GM TUBE TP SCH ×2 (09:18→20:12)
[2020-03-04] MEDS: CLINDAMYCIN TP SCH (09:18)
[2020-03-04] MEDS: HYDROGEN PEROXIDE 3% 118 ML BOTTLE TOP SCH ×2 (09:52→21:24)
--- NOTE | 2020-03-04 15:45 | NUR ---
SEEN BY DR. CARRILLO AND WITH NEW ORDER CARRIED OUT.
--- NOTE | 2020-03-04 16:45 | NUR ---
PT. WAS SEEN AND EXAMINED BY DR. FORREST AND AWARE OF AN EPISODE OF VOMITING AT THIS TIME X1 WITH GASTRIC CONTENT ,PARTIALLY DIGESTED FOOD ,DIDI CARRASCO SAMPLE MAKER HAND AWARE AND DR. FORREST WITH NEW ORDERS CARRIED OUT ,ALSO HE RECOMMENDED TO F/U WITH DR. GERARDO Graham TO RE ASSESS PT.RE:MVI WITH MIN (WITH IRON ) AND AN EXTRA ORDER FOR IRON DOSE,TO SEE IF THERE IS A NEED FOR SUPPLEMENTS D/T MAY BE OVERWHELMING THE STOMACH.
--- NOTE | 2020-03-04 17:36 | NUR ---
PT'S MOTHER AWARE AND IN AGREEMENT WITH ORDERS AND CARRED OUT.DR. GERARDO Graham WAS PAGED TOO.
--- NOTE | 2020-03-04 18:00 | NUR ---
Provided video chat to pt. and her mother, with no problem noted. No episode of vomiting at this time, pt remains comfortable and with all needs attended and anticipated. HOB elevated at all times, no signs of pain or discomfort noted.
[2020-03-04 20:00] VITALS: BP 107/64
[2020-03-04] MEDS: MULTIVIT, IRON, MIN NO. 8, FA TABLET GT SCH (20:12)
[2020-03-04] MEDS: MELATONIN 5MG TABLET GT SCH (20:12)
[2020-03-04] MEDS: MINERAL OIL/PETROLATUM,WHITE 57 GM TUBE TP SCH (20:12)
[2020-03-04] MEDS: FERROUS SULFATE 330 MG/7.5 ML UDC- FOR SA ONLY GT SCH (20:12)
[2020-03-04] MEDS: ADAPALENE 0.3% TP SCH (20:12)
--- NOTE | 2020-03-04 20:40 | NUR ---
Patient vomited small amount of whitish secreations .
[2020-03-04] MEDS: RIVAROXABAN 10 MG TABLET GT SCH (21:08)
[2020-03-05] MEDS: FAMOTIDINE 20 MG TABLET GT SCH (05:44)
[2020-03-05 07:30] LABS: BASOPHILS % (AUTO) 0.4 % (0.0-2.0); EOSINOPHILS # (AUTO) 0.3 K/uL (0.0-0.7); EOSINOPHILS % (AUTO) 2.6 % (0.0-7.0); HEMATOCRIT 38.5 % (31.2-41.9); HEMOGLOBIN 12.7 g/dL (10.9-14.3); LYMPHOCYTES # (AUTO) 1.9 K/uL (20.0-40.0); LYMPHOCYTES % (AUTO) 15.4 % (20.5-51.5); MEAN CORPUSCULAR HEMOGLOBIN 29.9 uug (24.7-32.8); MEAN CORPUSCULAR HGB CONC 33 g/dL (32.3-35.6); MEAN CORPUSCULAR VOLUME 90.6 fL (75.5-95.3); MONOCYTES # (AUTO) 0.9 K/uL (2.0-10.0); MONOCYTES % (AUTO) 6.9 % (0.0-11.0); NEUTROPHILS # (AUTO) 9.2 K/uL (1.8-8.9); NEUTROPHILS % (AUTO) 74.7 % (38.5-71.5); PLATELET COUNT (AUTO) 318 K/uL (179-408); RED BLOOD CELL COUNT(AUTO) 4.25 MIL/uL (3.63-4.92); WHITE BLOOD COUNT (AUTO) 12.4 K/uL (3.8-11.8)
[2020-03-05 07:38] VITALS: BP 113/65
[2020-03-05 07:43] LABS: CREATININE 0.6 mg/dL (0.6-1.3); MAGNESIUM 2.3 mg/dL (1.8-2.4); POTASSIUM 4.3 mmol/L (3.5-5.1)
[2020-03-05] MEDS: levETIRAcetam 500 MG/5 ML LIQUID UDC GT SCH ×2 (09:00→20:29)
[2020-03-05] MEDS: LACOSAMIDE 100 MG/10 ML UDC GT SCH ×2 (09:00→20:29)
[2020-03-05] MEDS: HYDROGEN PEROXIDE 3% 118 ML BOTTLE TOP SCH ×2 (09:00→20:29)
[2020-03-05 09:03] LABS: BILIRUBIN,DIRECT 0.1 mg/dL (0.0-0.2); BILIRUBIN,TOTAL 0.2 mg/dL (0.2-1.0); TOTAL PROTEIN, SERUM 8.2 g/dL (6.4-8.2)
[2020-03-05] MEDS: METOPROLOL TARTRATE 50 MG TABLET GT SCH ×2 (09:34→20:29)
[2020-03-05] MEDS: ACIDOPHILUS/BULGARICUS CHEW TAB GT SCH ×2 (09:34→20:29)
[2020-03-05] MEDS: NUTRISOURCE FIBER 4 GM PACKET GT SCH (09:35)
[2020-03-05] MEDS: AMLODIPINE 10 MG TABLET GT SCH (09:35)
[2020-03-05] MEDS: CLINDAMYCIN TP SCH (09:35)
[2020-03-05] MEDS: COD LIVER OIL/ZINC OXIDE OINT 113 GM TUBE TP SCH ×2 (09:35→20:29)
[2020-03-05] MEDS: BACLOFEN 10 MG TABLET GT SCH ×2 (09:36→20:29)
--- NOTE | 2020-03-05 10:01 | NUR ---
DR. NANCY ALFARO WAS PAGED TO F/U VOMITING.
--- NOTE | 2020-03-05 10:50 | NUR ---
DR. VALDEZ (G.I)AND ALSO DR. MCKEON (G.I) WERE CALLED TO F/U G.I CONSULT D/T VOMITING EPISODES.
--- NOTE | 2020-03-05 11:05 | NUR ---
DR. GERARDO Gonsalez. AWARE OF VOMITING EPISODES AND WITH NEW ORDER TO D/C MVI WITH MIN AND IRON SUPPLEMENTS .PT'S MOTHER WAS CALLED BUT UNABLE TO TALK TO HER D/T SHE STATED THAT SHE IS DRIVING AND CAN NOT ATTEND THE PHONE THAT SHE WILL CALL BACK.
[2020-03-05] MEDS: JEVITY 1.2 1000 ML LIQUID GT PRN (12:01)
--- NOTE | 2020-03-05 16:45 | NUR ---
PT'S MOTHER CALLED BACK AT THIS TIME AND AWARE OF PT'S NEW ORDERS FROM DR.KASHANI Graham AND IN AGREEMENT AND REQUESTED TO CH. NURSE TO CALL HER WHEN Bassam HOLLAND COMES FOR CONSULTATION BECAUSE SHE WANTS TO TALK TO HER.PT'S MOTHER ASKED CH. NURSE TO FIND OUT ABOUT PT'S LAST PERIOD AND HOW MUCH BLOOD FLOW THE PT. HAD .CH. NURSE EXPLAINED TO HER THAT AUTOMATIC SPREADER OPERATOR DO NOT MEASURE BLOOD FLOW FROM PERIOD THEY JUST MENTION TO NURSE WHEN PT. HAS PERIOD BUT THEY REPORT TO NURSE IF BLOOD FLOW IS ABNORMAL OR IF ITS BEEN TOO LONG BUT SO FAR NONE OF THESE CONCERNS WERE BROUGHT UP BY AUTOMATIC SPREADER OPERATOR OR CHANGE OVER'S WHEN THEY DO PERINEAL CARE.SUDDENLY PT'S MOTHER REMEMBERED ABOUT LAST PT'S PERIOD AND STOP ASKING QUESTIONS ABOUT IT .
[2020-03-05 20:00] VITALS: BP 123/64
[2020-03-05] MEDS: MELATONIN 5MG TABLET GT SCH (20:29)
[2020-03-05] MEDS: MINERAL OIL/PETROLATUM,WHITE 57 GM TUBE TP SCH (20:29)
[2020-03-05] MEDS: ADAPALENE 0.3% TP SCH (20:29)
[2020-03-05] MEDS: ACETAMINOPHEN 650 MG/20 ML UDC- SA PATIENTS-PAIN ONLY GT PRN (20:30)
[2020-03-05] MEDS: RIVAROXABAN 10 MG TABLET GT SCH (20:52)
--- NOTE | 2020-03-05 21:51 | NUR ---
Afebrile, no respiratory distress noted, gt feeding tolerating well, no nausea or vomiting noted. HOB elevated, on aspiration precaution, kept clean and comfortable, will continue monitor.
--- NOTE | 2020-03-05 22:44 | NUR ---
Patient vomited while GRAB HOOKER was changing her, vomitus was moderate yellow and of feeding like consistency. Cleansed and changed patient, Vital signs: B/P:111/52 HR: 80 RR: 20 T:97.4 02 sat: 907%. Abdomen was soft, with bowel sounds on all four(4) quadrants, no facial grimacing on abdominal palpation. Will hold feeding at this time and will continue monitor. Addendum: 03/06/20 at 0254 by SINDHU DUPREE RN Clarification of above 02 sat: 97% and no respiratory distress noted.
--- NOTE | 2020-03-06 | NUR ---
Gt feeding is on, no nausea or vomiting noted at this time, will continue monitor.
--- NOTE | 2020-03-06 04:00 | NUR ---
Patient's Mother (Marilee) called and was inquiring about her daughter. The nurse informed her that her daughter had one episode of vomiting; moderate amount while the KALSOMINER was changing her earlier in the shift. She stated that she is worried about her daughter's vomiting episodes. I informed her that her daughter so far is sleeping and there was no further vomiting at this time. The patient's mother is aware of her daughter's pending GI consult with Dr. Salazar. The patient's mother stated that she is not sleeping well because she is worried about patient's vomiting episodes. I informed her that I will closely monitor her daughter and if there are anymore episodes of vomiting, I will inform the doctor or if the patient have any persistent vomiting I will transfer her to the ER. Marilee ( patient's Mother) said , "Thank you and good Night."
--- NOTE | 2020-03-06 04:15 | NUR ---
The patient's Mother (Marilee) called for the third time and still saying that she is still worried about her daughter. I informed her that I just checked on her daughter and she is still sleeping at this time, no episodes of vomiting, tolerating GT feeding, no GT residuals and the patient looks comfortable and no grimacing. Turned and repositioned patient and will monitor closely. Marilee was grateful and said goodbye.
[2020-03-06] MEDS: FAMOTIDINE 20 MG TABLET GT SCH (05:22)
[2020-03-06 07:40] VITALS: BP 104/66
[2020-03-06] MEDS: AMLODIPINE 10 MG TABLET GT SCH (09:00)
[2020-03-06] MEDS: levETIRAcetam 500 MG/5 ML LIQUID UDC GT SCH ×2 (09:00→20:36)
[2020-03-06] MEDS: METOPROLOL TARTRATE 50 MG TABLET GT SCH ×2 (09:00→20:36)
[2020-03-06] MEDS: LACOSAMIDE 100 MG/10 ML UDC GT SCH ×2 (09:00→20:36)
[2020-03-06] MEDS: HYDROGEN PEROXIDE 3% 118 ML BOTTLE TOP SCH ×2 (09:00→21:00)
[2020-03-06] MEDS: ACIDOPHILUS/BULGARICUS CHEW TAB GT SCH ×2 (09:47→20:36)
[2020-03-06] MEDS: JEVITY 1.2 1000 ML LIQUID GT PRN (09:48)
[2020-03-06] MEDS: COD LIVER OIL/ZINC OXIDE OINT 113 GM TUBE TP SCH ×2 (09:48→20:36)
[2020-03-06] MEDS: CLINDAMYCIN TP SCH (09:48)
[2020-03-06] MEDS: NUTRISOURCE FIBER 4 GM PACKET GT SCH (09:48)
[2020-03-06] MEDS: BACLOFEN 10 MG TABLET GT SCH ×2 (09:50→20:36)
--- NOTE | 2020-03-06 20:30 | NUR ---
Pt received on 28% FI02 C/A via T-piece. No signs of respiratory distress noted at this time. Breath sounds clear/diminished. Suctioned with small amounts of white-yellowish secretions. Trach care done. Aerosol tubing/drain bag cleared. No teeth grinding noted at this time. Will continue to monitor throughout shift.
[2020-03-06] MEDS: RIVAROXABAN 10 MG TABLET GT SCH (20:36)
[2020-03-06] MEDS: MINERAL OIL/PETROLATUM,WHITE 57 GM TUBE TP SCH (20:36)
[2020-03-06] MEDS: ADAPALENE 0.3% TP SCH (20:36)
[2020-03-06] MEDS: MELATONIN 5MG TABLET GT SCH (20:36)
--- NOTE | 2020-03-06 22:35 | NUR ---
Patient is sleeping, no signs of any distress noted, Gt feeding tolerating well, no residuals and no vomiting noted. Abdomen is soft and no distention noted. kept clean and comfortable.
[2020-03-06 23:09] VITALS: BP 116/73
[2020-03-07] MEDS: JEVITY 1.2 1000 ML LIQUID GT PRN ×2 (01:31→22:25)
[2020-03-07] MEDS: FAMOTIDINE 20 MG TABLET GT SCH (05:16)
[2020-03-07 07:33] VITALS: BP 113/74
[2020-03-07] MEDS: AMLODIPINE 10 MG TABLET GT SCH (08:18)
[2020-03-07] MEDS: LACOSAMIDE 100 MG/10 ML UDC GT SCH ×2 (08:18→20:37)
[2020-03-07] MEDS: levETIRAcetam 500 MG/5 ML LIQUID UDC GT SCH ×2 (08:18→20:37)
[2020-03-07] MEDS: NUTRISOURCE FIBER 4 GM PACKET GT SCH (08:18)
[2020-03-07] MEDS: METOPROLOL TARTRATE 50 MG TABLET GT SCH ×2 (08:18→20:37)
[2020-03-07] MEDS: COD LIVER OIL/ZINC OXIDE OINT 113 GM TUBE TP SCH ×2 (08:18→20:37)
[2020-03-07] MEDS: CLINDAMYCIN TP SCH (08:18)
[2020-03-07] MEDS: ACIDOPHILUS/BULGARICUS CHEW TAB GT SCH ×2 (08:18→20:37)
[2020-03-07] MEDS: HYDROGEN PEROXIDE 3% 118 ML BOTTLE TOP SCH ×2 (08:32→21:22)
[2020-03-07] MEDS: BACLOFEN 10 MG TABLET GT SCH ×2 (10:00→20:37)
[2020-03-07] MEDS: MINERAL OIL/PETROLATUM,WHITE 57 GM TUBE TP SCH (20:37)
[2020-03-07] MEDS: ADAPALENE 0.3% TP SCH (20:37)
[2020-03-07] MEDS: MELATONIN 5MG TABLET GT SCH (20:37)
[2020-03-07] MEDS: RIVAROXABAN 10 MG TABLET GT SCH (21:16)
[2020-03-07 22:58] VITALS: BP 118/74
[2020-03-08] MEDS: FAMOTIDINE 20 MG TABLET GT SCH (05:17)
[2020-03-08 07:55] VITALS: BP 116/60
--- NOTE | 2020-03-08 08:00 | NUR ---
OBSERVED THIS MORNING DURING MORNING CARE WITH RT. THIGH SUPERFICIAL SCRATCH AND WITH LOCAL TX FROM DR. NANCY Gonsalez.PICTURE WAS TAKEN .
[2020-03-08] MEDS: ACIDOPHILUS/BULGARICUS CHEW TAB GT SCH ×2 (08:17→20:12)
[2020-03-08] MEDS: LACOSAMIDE 100 MG/10 ML UDC GT SCH ×2 (08:17→20:12)
[2020-03-08] MEDS: levETIRAcetam 500 MG/5 ML LIQUID UDC GT SCH ×2 (08:17→20:12)
[2020-03-08] MEDS: AMLODIPINE 10 MG TABLET GT SCH (08:18)
[2020-03-08] MEDS: METOPROLOL TARTRATE 50 MG TABLET GT SCH ×2 (08:18→20:13)
[2020-03-08] MEDS: NUTRISOURCE FIBER 4 GM PACKET GT SCH (08:18)
[2020-03-08] MEDS: CLINDAMYCIN TP SCH (08:18)
[2020-03-08] MEDS: COD LIVER OIL/ZINC OXIDE OINT 113 GM TUBE TP SCH ×2 (08:18→20:16)
--- NOTE | 2020-03-08 09:30 | NUR ---
PT'S MOTHER WAS CALLED AND AWARE OF RT. THIGH SUPERFICIAL SCRATCH AND AWARE OF LOCAL TX AND IN AGREEMENT.
[2020-03-08] MEDS: NEOMY/BACITRA/POLYMYXIN B OINT UD PACKET TP SCH ×2 (09:31→20:17)
[2020-03-08] MEDS: BACLOFEN 10 MG TABLET GT SCH ×2 (10:00→20:12)
[2020-03-08] MEDS: HYDROGEN PEROXIDE 3% 118 ML BOTTLE TOP SCH ×2 (10:20→21:33)
--- NOTE | 2020-03-08 10:20 | NUR ---
SEE RESPIRATORY PROGRESS NOTES.
--- NOTE | 2020-03-08 12:12 | NUR ---
VIDEO CALL PROVIDED WITH THE FAMILY AND PATIENT. NO CONCERN AT THIS TIME. WILL CONTINUE TO MONITOR.
--- NOTE | 2020-03-08 16:00 | NUR ---
SEEN BY ALISA Sharma AND WITH NNO.SEEN BY DR. NANCY Graham AND WITH NEW ORDERS CARRIED OUT.
--- NOTE | 2020-03-08 18:07 | NUR ---
Video call provided with the family and pt. done. video call done twice/day as per Nick to make up the missed video call yesterday.
--- NOTE | 2020-03-08 18:45 | NUR ---
NEW ORDER CARRIED OUT FROM DR. NANCY Graham FOR COVID 19 TEST PER [facility] REQUIREMENT.PT'S MOTHER IN AGREEMENT.
[2020-03-08] MEDS: MELATONIN 5MG TABLET GT SCH (20:14)
[2020-03-08] MEDS: RIVAROXABAN 10 MG TABLET GT SCH (20:15)
[2020-03-08] MEDS: ADAPALENE 0.3% TP SCH (20:16)
[2020-03-08] MEDS: MINERAL OIL/PETROLATUM,WHITE 57 GM TUBE TP SCH (20:16)
[2020-03-08 20:49] VITALS: BP 128/70
[2020-03-09] MEDS: FAMOTIDINE 20 MG TABLET GT SCH (05:11)
--- NOTE | 2020-03-09 05:58 | NUR ---
no nausea or vomiting observed, no respiratory distress noted.
[2020-03-09 07:30] LABS: BASOPHILS % (AUTO) 0.4 % (0.0-2.0); EOSINOPHILS # (AUTO) 0.3 K/uL (0.0-0.7); EOSINOPHILS % (AUTO) 2.6 % (0.0-7.0); HEMATOCRIT 39.1 % (31.2-41.9); HEMOGLOBIN 12.9 g/dL (10.9-14.3); LYMPHOCYTES # (AUTO) 2.5 K/uL (20.0-40.0); LYMPHOCYTES % (AUTO) 19.5 % (20.5-51.5); MEAN CORPUSCULAR HEMOGLOBIN 29.8 uug (24.7-32.8); MEAN CORPUSCULAR HGB CONC 33 g/dL (32.3-35.6); MEAN CORPUSCULAR VOLUME 90.5 fL (75.5-95.3); MONOCYTES # (AUTO) 0.7 K/uL (2.0-10.0); MONOCYTES % (AUTO) 5.6 % (0.0-11.0); NEUTROPHILS # (AUTO) 9.1 K/uL (1.8-8.9); NEUTROPHILS % (AUTO) 71.9 % (38.5-71.5); PLATELET COUNT (AUTO) 323 K/uL (179-408); RED BLOOD CELL COUNT(AUTO) 4.32 MIL/uL (3.63-4.92); WHITE BLOOD COUNT (AUTO) 12.6 K/uL (3.8-11.8)
[2020-03-09 07:34] VITALS: BP 95/52
[2020-03-09 07:38] LABS: CREATININE 0.6 mg/dL (0.6-1.3); MAGNESIUM 2.3 mg/dL (1.8-2.4); PHOSPHOROUS 3.9 mg/dL (2.5-4.9); POTASSIUM 4.6 mmol/L (3.5-5.1)
[2020-03-09] MEDS: HYDROGEN PEROXIDE 3% 118 ML BOTTLE TOP SCH ×2 (07:43→21:45)
[2020-03-09] MEDS: LACOSAMIDE 100 MG/10 ML UDC GT SCH ×2 (08:00→20:00)
[2020-03-09] MEDS: levETIRAcetam 500 MG/5 ML LIQUID UDC GT SCH ×2 (08:00→20:53)
[2020-03-09] MEDS: AMLODIPINE 10 MG TABLET GT SCH (09:00)
[2020-03-09] MEDS: METOPROLOL TARTRATE 50 MG TABLET GT SCH ×2 (09:00→21:00)
[2020-03-09] MEDS: ACIDOPHILUS/BULGARICUS CHEW TAB GT SCH ×2 (09:44→21:01)
[2020-03-09] MEDS: COD LIVER OIL/ZINC OXIDE OINT 113 GM TUBE TP SCH ×2 (09:45→21:04)
[2020-03-09] MEDS: CLINDAMYCIN TP SCH (09:45)
[2020-03-09] MEDS: NUTRISOURCE FIBER 4 GM PACKET GT SCH (09:45)
[2020-03-09] MEDS: NEOMY/BACITRA/POLYMYXIN B OINT UD PACKET TP SCH ×2 (09:46→21:05)
[2020-03-09] MEDS: BACLOFEN 10 MG TABLET GT SCH ×2 (09:46→20:54)
--- NOTE | 2020-03-09 16:44 | NUR ---
2:48pm: This social work instructor received a phone call from Ramírez Arthur social work instructor at [facility], , in response to the APS report this SW had filed on 03/02/2020. The reason for the report was discussed. Ramírez stated that APS does not usually get involved in cases pertaining to patient's that are residents of a long term care pharmacist care subacute facility. However, given the nature of the report, Ramírez suggested for this SW to contact the public guardian's office for further guidance. SAPNA thanked Ramírez for his time. SAPNA consulted with Risk Management about above, and it was agreed that SAPNA will follow-up with the public guardian's office.
--- NOTE | 2020-03-09 17:38 | NUR ---
Video call provided with the pt. and family. No concerns at this time. Will continue to monitor pt.
[2020-03-09] MEDS: JEVITY 1.2 1000 ML LIQUID GT PRN (17:44)
--- NOTE | 2020-03-09 19:14 | NUR ---
Covid19 test results negative.
[2020-03-09 20:00] VITALS: BP 105/57
[2020-03-09] MEDS: MELATONIN 5MG TABLET GT SCH (21:02)
[2020-03-09] MEDS: RIVAROXABAN 10 MG TABLET GT SCH (21:03)
[2020-03-09] MEDS: MINERAL OIL/PETROLATUM,WHITE 57 GM TUBE TP SCH (21:05)
[2020-03-09] MEDS: ADAPALENE 0.3% TP SCH (21:05)
[2020-03-10] MEDS: FAMOTIDINE 20 MG TABLET GT SCH (05:45)
[2020-03-10 07:28] VITALS: BP 107/66
[2020-03-10] MEDS: HYDROGEN PEROXIDE 3% 118 ML BOTTLE TOP SCH ×2 (08:03→21:48)
[2020-03-10] MEDS: levETIRAcetam 500 MG/5 ML LIQUID UDC GT SCH ×2 (08:42→20:00)
[2020-03-10] MEDS: LACOSAMIDE 100 MG/10 ML UDC GT SCH ×2 (08:42→20:00)
[2020-03-10] MEDS: ACIDOPHILUS/BULGARICUS CHEW TAB GT SCH ×2 (08:42→21:04)
[2020-03-10] MEDS: METOPROLOL TARTRATE 50 MG TABLET GT SCH ×2 (08:43→21:04)
[2020-03-10] MEDS: AMLODIPINE 10 MG TABLET GT SCH (08:43)
[2020-03-10] MEDS: COD LIVER OIL/ZINC OXIDE OINT 113 GM TUBE TP SCH ×2 (08:44→21:05)
[2020-03-10] MEDS: NEOMY/BACITRA/POLYMYXIN B OINT UD PACKET TP SCH ×2 (08:44→21:05)
[2020-03-10] MEDS: NUTRISOURCE FIBER 4 GM PACKET GT SCH (08:44)
[2020-03-10] MEDS: CLINDAMYCIN TP SCH (08:44)
[2020-03-10] MEDS: BACLOFEN 10 MG TABLET GT SCH ×2 (10:11→20:00)
--- NOTE | 2020-03-10 15:16 | NUR ---
Seen and examined by Dr Salazar ,for the episodes of nausea and vomiting with new orders noted and carried out.
--- NOTE | 2020-03-10 15:36 | NUR ---
Pt received on 28% Cool Aerosol T-piece to trach. No s/s of respiratory distress noted, pt grinding teeth. Pt has dim clear breath sounds. prn sxn'ing performed with sm/mod amounts of white yellowish thick secretions. trach care performed. aerosol tubing and drain bag cleared of rainout. Will continue to monitor.
--- NOTE | 2020-03-10 18:20 | NUR ---
Video call provided with the pt. mother. No concerns at this time. Will continue to monitor pt.
[2020-03-10 20:29] VITALS: BP 134/62
[2020-03-10] MEDS: MELATONIN 5MG TABLET GT SCH (21:04)
[2020-03-10] MEDS: RIVAROXABAN 10 MG TABLET GT SCH (21:05)
[2020-03-10] MEDS: ADAPALENE 0.3% TP SCH (21:05)
[2020-03-10] MEDS: MINERAL OIL/PETROLATUM,WHITE 57 GM TUBE TP SCH (21:05)
[2020-03-11] MEDS: METOCLOPRAMIDE HCL 10 MG/10 ML UDC GT SCH ×5 (01:00→18:06)
[2020-03-11] MEDS: JEVITY 1.2 1000 ML LIQUID GT PRN (02:15)
[2020-03-11] MEDS: FAMOTIDINE 20 MG TABLET GT SCH (05:22)
[2020-03-11 07:39] VITALS: BP 105/62
[2020-03-11] MEDS: LACOSAMIDE 100 MG/10 ML UDC GT SCH ×2 (08:36→20:44)
[2020-03-11] MEDS: levETIRAcetam 500 MG/5 ML LIQUID UDC GT SCH ×2 (08:36→20:43)
[2020-03-11] MEDS: ACIDOPHILUS/BULGARICUS CHEW TAB GT SCH ×2 (08:37→20:44)
[2020-03-11] MEDS: METOPROLOL TARTRATE 50 MG TABLET GT SCH ×2 (08:37→20:44)
[2020-03-11] MEDS: AMLODIPINE 10 MG TABLET GT SCH (08:37)
[2020-03-11] MEDS: COD LIVER OIL/ZINC OXIDE OINT 113 GM TUBE TP SCH ×2 (08:38→20:45)
[2020-03-11] MEDS: NUTRISOURCE FIBER 4 GM PACKET GT SCH (08:38)
[2020-03-11] MEDS: CLINDAMYCIN TP SCH (08:38)
[2020-03-11] MEDS: NEOMY/BACITRA/POLYMYXIN B OINT UD PACKET TP SCH ×2 (08:39→20:46)
[2020-03-11] MEDS: HYDROGEN PEROXIDE 3% 118 ML BOTTLE TOP SCH ×2 (09:14→21:04)
[2020-03-11] MEDS: BACLOFEN 10 MG TABLET GT SCH ×2 (10:59→20:43)
--- NOTE | 2020-03-11 18:26 | NUR ---
Video call provided with the pt. mother. No concerns at this time. Will continue to monitor pt.
[2020-03-11 20:00] VITALS: BP 141/71
[2020-03-11] MEDS: MELATONIN 5MG TABLET GT SCH (20:45)
[2020-03-11] MEDS: RIVAROXABAN 10 MG TABLET GT SCH (20:45)
[2020-03-11] MEDS: ADAPALENE 0.3% TP SCH (20:46)
[2020-03-11] MEDS: MINERAL OIL/PETROLATUM,WHITE 57 GM TUBE TP SCH (20:46)
[2020-03-11 22:00] VITALS: BP 98/60
[2020-03-12] MEDS: JEVITY 1.2 1000 ML LIQUID GT PRN (04:54)
[2020-03-12] MEDS: METOCLOPRAMIDE HCL 10 MG/10 ML UDC GT SCH ×4 (05:42→17:06)
[2020-03-12] MEDS: FAMOTIDINE 20 MG TABLET GT SCH (05:42)
[2020-03-12 07:31] VITALS: BP 105/49
[2020-03-12] MEDS: LACOSAMIDE 100 MG/10 ML UDC GT SCH ×2 (08:33→20:31)
[2020-03-12] MEDS: levETIRAcetam 500 MG/5 ML LIQUID UDC GT SCH ×2 (08:33→20:31)
[2020-03-12] MEDS: METOPROLOL TARTRATE 50 MG TABLET GT SCH ×2 (08:34→20:54)
[2020-03-12] MEDS: ACIDOPHILUS/BULGARICUS CHEW TAB GT SCH ×2 (08:34→20:53)
[2020-03-12] MEDS: NUTRISOURCE FIBER 4 GM PACKET GT SCH (08:35)
[2020-03-12] MEDS: NEOMY/BACITRA/POLYMYXIN B OINT UD PACKET TP SCH ×2 (08:35→20:55)
[2020-03-12] MEDS: AMLODIPINE 10 MG TABLET GT SCH (08:35)
[2020-03-12] MEDS: CLINDAMYCIN TP SCH (08:35)
[2020-03-12] MEDS: COD LIVER OIL/ZINC OXIDE OINT 113 GM TUBE TP SCH ×2 (08:35→20:55)
[2020-03-12] MEDS: HYDROGEN PEROXIDE 3% 118 ML BOTTLE TOP SCH ×2 (09:00→21:31)
[2020-03-12] MEDS: BACLOFEN 10 MG TABLET GT SCH ×2 (10:27→20:31)
--- NOTE | 2020-03-12 17:30 | NUR ---
zoom meeting provided to pt's mother. pt is in bed awake, calm, and no signs of distress.
[2020-03-12 20:33] VITALS: BP 105/73
[2020-03-12] MEDS: MELATONIN 5MG TABLET GT SCH (20:54)
[2020-03-12] MEDS: MINERAL OIL/PETROLATUM,WHITE 57 GM TUBE TP SCH (20:55)
[2020-03-12] MEDS: ADAPALENE 0.3% TP SCH (20:55)
[2020-03-12] MEDS: RIVAROXABAN 10 MG TABLET GT SCH (21:00)
[2020-03-13] MEDS: METOCLOPRAMIDE HCL 10 MG/10 ML UDC GT SCH ×5 (00:22→23:59)
[2020-03-13] MEDS: FAMOTIDINE 20 MG TABLET GT SCH (06:29)
[2020-03-13 07:39] VITALS: BP 123/69
[2020-03-13 08:20] VITALS: BP 119/65
[2020-03-13] MEDS: ACIDOPHILUS/BULGARICUS CHEW TAB GT SCH ×2 (09:00→20:03)
[2020-03-13] MEDS: LACOSAMIDE 100 MG/10 ML UDC GT SCH ×2 (09:00→20:03)
[2020-03-13] MEDS: levETIRAcetam 500 MG/5 ML LIQUID UDC GT SCH ×2 (09:00→20:03)
[2020-03-13] MEDS: NUTRISOURCE FIBER 4 GM PACKET GT SCH (09:02)
[2020-03-13] MEDS: AMLODIPINE 10 MG TABLET GT SCH (09:02)
[2020-03-13] MEDS: METOPROLOL TARTRATE 50 MG TABLET GT SCH ×2 (09:02→20:03)
[2020-03-13] MEDS: COD LIVER OIL/ZINC OXIDE OINT 113 GM TUBE TP SCH ×2 (09:03→20:07)
[2020-03-13] MEDS: NEOMY/BACITRA/POLYMYXIN B OINT UD PACKET TP SCH ×2 (09:13→20:08)
[2020-03-13] MEDS: CLINDAMYCIN TP SCH (09:13)
[2020-03-13] MEDS: BACLOFEN 10 MG TABLET GT SCH ×2 (09:17→20:03)
[2020-03-13] MEDS: HYDROGEN PEROXIDE 3% 118 ML BOTTLE TOP SCH ×2 (10:10→21:28)
--- NOTE | 2020-03-13 10:10 | NUR ---
SEE RESPIRATORY PROGRESS NOTE.
--- NOTE | 2020-03-13 15:45 | NUR ---
Provided video Zoom meeting for Patient with mother.
[2020-03-13] MEDS: MELATONIN 10MG TABLET GT SCH (20:04)
[2020-03-13] MEDS: ADAPALENE 0.3% TP SCH (20:08)
[2020-03-13] MEDS: MINERAL OIL/PETROLATUM,WHITE 57 GM TUBE TP SCH (20:08)
[2020-03-13 20:39] VITALS: BP 105/41
[2020-03-13] MEDS: RIVAROXABAN 10 MG TABLET GT SCH (21:59)
[2020-03-14] MEDS: JEVITY 1.2 1000 ML LIQUID GT PRN (05:27)
[2020-03-14] MEDS: FAMOTIDINE 20 MG TABLET GT SCH (05:27)
[2020-03-14] MEDS: METOCLOPRAMIDE HCL 10 MG/10 ML UDC GT SCH ×3 (05:27→17:36)
[2020-03-14 08:03] VITALS: BP 95/59
[2020-03-14] MEDS: METOPROLOL TARTRATE 50 MG TABLET GT SCH ×2 (09:00→20:30)
[2020-03-14] MEDS: levETIRAcetam 500 MG/5 ML LIQUID UDC GT SCH ×2 (09:00→20:24)
[2020-03-14] MEDS: LACOSAMIDE 100 MG/10 ML UDC GT SCH ×2 (09:00→20:25)
[2020-03-14] MEDS: AMLODIPINE 10 MG TABLET GT SCH (09:00)
[2020-03-14] MEDS: HYDROGEN PEROXIDE 3% 118 ML BOTTLE TOP SCH ×2 (09:24→21:17)
[2020-03-14] MEDS: ACIDOPHILUS/BULGARICUS CHEW TAB GT SCH ×2 (09:29→20:25)
[2020-03-14] MEDS: COD LIVER OIL/ZINC OXIDE OINT 113 GM TUBE TP SCH ×2 (09:33→20:30)
[2020-03-14] MEDS: NUTRISOURCE FIBER 4 GM PACKET GT SCH (09:33)
[2020-03-14] MEDS: NEOMY/BACITRA/POLYMYXIN B OINT UD PACKET TP SCH ×2 (09:33→20:30)
[2020-03-14] MEDS: CLINDAMYCIN TP SCH (09:33)
[2020-03-14] MEDS: BACLOFEN 10 MG TABLET GT SCH ×2 (09:33→20:24)
--- NOTE | 2020-03-14 16:15 | NUR ---
Provided Zoom meeting for patient and mother.
[2020-03-14 20:26] VITALS: BP 120/64
[2020-03-14] MEDS: RIVAROXABAN 10 MG TABLET GT SCH (20:27)
[2020-03-14] MEDS: MELATONIN 10MG TABLET GT SCH (20:29)
[2020-03-14] MEDS: MINERAL OIL/PETROLATUM,WHITE 57 GM TUBE TP SCH (20:30)
[2020-03-14] MEDS: ADAPALENE 0.3% TP SCH (20:30)
[2020-03-15] MEDS: FAMOTIDINE 20 MG TABLET GT SCH (05:52)
[2020-03-15] MEDS: METOCLOPRAMIDE HCL 10 MG/10 ML UDC GT SCH ×4 (05:52→17:08)
[2020-03-15 08:09] VITALS: BP 113/74
[2020-03-15] MEDS: LACOSAMIDE 100 MG/10 ML UDC GT SCH ×2 (08:09→20:36)
[2020-03-15] MEDS: levETIRAcetam 500 MG/5 ML LIQUID UDC GT SCH ×2 (08:09→20:35)
[2020-03-15] MEDS: AMLODIPINE 10 MG TABLET GT SCH (08:10)
[2020-03-15] MEDS: METOPROLOL TARTRATE 50 MG TABLET GT SCH ×2 (08:10→20:50)
[2020-03-15] MEDS: ACIDOPHILUS/BULGARICUS CHEW TAB GT SCH ×2 (08:10→20:36)
[2020-03-15] MEDS: NEOMY/BACITRA/POLYMYXIN B OINT UD PACKET TP SCH ×2 (08:11→20:38)
[2020-03-15] MEDS: CLINDAMYCIN TP SCH (08:11)
[2020-03-15] MEDS: NUTRISOURCE FIBER 4 GM PACKET GT SCH (08:11)
[2020-03-15] MEDS: COD LIVER OIL/ZINC OXIDE OINT 113 GM TUBE TP SCH ×2 (08:11→20:37)
[2020-03-15] MEDS: BACLOFEN 10 MG TABLET GT SCH ×2 (09:05→20:36)
[2020-03-15] MEDS: HYDROGEN PEROXIDE 3% 118 ML BOTTLE TOP SCH ×2 (09:27→21:41)
--- NOTE | 2020-03-15 17:00 | NUR ---
zoom meeting provided to pt's mother. pt is in bed awake, calm, and no signs of distress
[2020-03-15] MEDS: RIVAROXABAN 10 MG TABLET GT SCH (20:34)
[2020-03-15] MEDS: MINERAL OIL/PETROLATUM,WHITE 57 GM TUBE TP SCH (20:37)
[2020-03-15] MEDS: ADAPALENE 0.3% TP SCH (20:37)
[2020-03-15] MEDS: MELATONIN 10MG TABLET GT SCH (20:37)
[2020-03-15 22:58] VITALS: BP 129/60
[2020-03-16] MEDS: METOCLOPRAMIDE HCL 10 MG/10 ML UDC GT SCH ×4 (00:09→17:48)
[2020-03-16] MEDS: JEVITY 1.2 1000 ML LIQUID GT PRN (00:35)
[2020-03-16] MEDS: FAMOTIDINE 20 MG TABLET GT SCH (06:04)
[2020-03-16 07:46] VITALS: BP 149/78
[2020-03-16] MEDS: HYDROGEN PEROXIDE 3% 118 ML BOTTLE TOP SCH ×2 (08:46→21:04)
[2020-03-16] MEDS: levETIRAcetam 500 MG/5 ML LIQUID UDC GT SCH ×2 (08:54→20:28)
[2020-03-16] MEDS: LACOSAMIDE 100 MG/10 ML UDC GT SCH ×2 (08:54→20:30)
[2020-03-16] MEDS: METOPROLOL TARTRATE 50 MG TABLET GT SCH ×2 (08:55→20:36)
[2020-03-16] MEDS: ACIDOPHILUS/BULGARICUS CHEW TAB GT SCH ×2 (08:55→20:30)
[2020-03-16] MEDS: CLINDAMYCIN TP SCH (08:56)
[2020-03-16] MEDS: COD LIVER OIL/ZINC OXIDE OINT 113 GM TUBE TP SCH ×2 (08:56→20:34)
[2020-03-16] MEDS: AMLODIPINE 10 MG TABLET GT SCH (08:56)
[2020-03-16] MEDS: NUTRISOURCE FIBER 4 GM PACKET GT SCH (08:56)
[2020-03-16] MEDS: NEOMY/BACITRA/POLYMYXIN B OINT UD PACKET TP SCH ×2 (08:57→20:35)
[2020-03-16] MEDS: BACLOFEN 10 MG TABLET GT SCH ×2 (09:04→20:30)
--- NOTE | 2020-03-16 17:30 | NUR ---
zoom meeting provided to pt's mother. pt is in bed awake, calm, and no signs of distress
--- NOTE | 2020-03-16 17:40 | NUR ---
Pt has a episode of increase spasm,with facial twitching and arms spasm,Hl inserted on the L wrist # 22,Ativan Iv given as ordered,with help .
[2020-03-16] MEDS: LORAZEPAM 2 MG/1 ML VIAL IV PRN (17:42)
[2020-03-16 20:02] VITALS: BP 101/54
[2020-03-16] MEDS: RIVAROXABAN 10 MG TABLET GT SCH (20:32)
[2020-03-16] MEDS: MINERAL OIL/PETROLATUM,WHITE 57 GM TUBE TP SCH (20:34)
[2020-03-16] MEDS: ADAPALENE 0.3% TP SCH (20:35)
[2020-03-16] MEDS: MELATONIN 5MG TABLET GT SCH (20:37)
[2020-03-16 22:00] VITALS: BP 112/61
[2020-03-17] MEDS: METOCLOPRAMIDE HCL 10 MG/10 ML UDC GT SCH ×5 (00:22→23:49)
[2020-03-17] MEDS: JEVITY 1.2 1000 ML LIQUID GT PRN (01:42)
[2020-03-17] MEDS: FAMOTIDINE 20 MG TABLET GT SCH (06:14)
[2020-03-17 06:16] LABS: BASOPHILS % (AUTO) 0.7 % (0.0-2.0); EOSINOPHILS # (AUTO) 0.3 K/uL (0.0-0.7); EOSINOPHILS % (AUTO) 4.9 % (0.0-7.0); HEMATOCRIT 36.3 % (31.2-41.9); HEMOGLOBIN 12.3 g/dL (10.9-14.3); LYMPHOCYTES # (AUTO) 1.7 K/uL (20.0-40.0); LYMPHOCYTES % (AUTO) 23.5 % (20.5-51.5); MEAN CORPUSCULAR HEMOGLOBIN 30.6 uug (24.7-32.8); MEAN CORPUSCULAR HGB CONC 34 g/dL (32.3-35.6); MEAN CORPUSCULAR VOLUME 90.1 fL (75.5-95.3); MONOCYTES # (AUTO) 0.6 K/uL (2.0-10.0); MONOCYTES % (AUTO) 8.7 % (0.0-11.0); NEUTROPHILS # (AUTO) 4.4 K/uL (1.8-8.9); NEUTROPHILS % (AUTO) 62.2 % (38.5-71.5); PLATELET COUNT (AUTO) 297 K/uL (179-408); RED BLOOD CELL COUNT(AUTO) 4.03 MIL/uL (3.63-4.92); WHITE BLOOD COUNT (AUTO) 7.1 K/uL (3.8-11.8)
[2020-03-17 06:34] LABS: CREATININE 0.7 mg/dL (0.6-1.3); MAGNESIUM 2.1 mg/dL (1.8-2.4); PHOSPHOROUS 4.1 mg/dL (2.5-4.9); POTASSIUM 4.3 mmol/L (3.5-5.1)
[2020-03-17] MEDS: LACOSAMIDE 100 MG/10 ML UDC GT SCH ×2 (08:00→20:00)
[2020-03-17] MEDS: levETIRAcetam 500 MG/5 ML LIQUID UDC GT SCH ×2 (08:00→20:00)
[2020-03-17 08:46] VITALS: BP 106/56
[2020-03-17] MEDS: AMLODIPINE 10 MG TABLET GT SCH (09:00)
[2020-03-17] MEDS: METOPROLOL TARTRATE 50 MG TABLET GT SCH ×2 (09:00→21:20)
[2020-03-17] MEDS: HYDROGEN PEROXIDE 3% 118 ML BOTTLE TOP SCH ×2 (09:13→21:33)
[2020-03-17] MEDS: ACIDOPHILUS/BULGARICUS CHEW TAB GT SCH ×2 (09:44→21:19)
[2020-03-17] MEDS: COD LIVER OIL/ZINC OXIDE OINT 113 GM TUBE TP SCH ×2 (09:45→21:21)
[2020-03-17] MEDS: NUTRISOURCE FIBER 4 GM PACKET GT SCH (09:45)
[2020-03-17] MEDS: NEOMY/BACITRA/POLYMYXIN B OINT UD PACKET TP SCH ×2 (09:46→21:21)
[2020-03-17] MEDS: BACLOFEN 10 MG TABLET GT SCH ×2 (09:46→20:00)
[2020-03-17] MEDS: CLINDAMYCIN TP SCH (09:46)
--- NOTE | 2020-03-17 11:00 | NUR ---
Dr kauffman was called regarding Pt increase spasm episode,left message.
--- NOTE | 2020-03-17 12:00 | NUR ---
Dr kauffman call back ,to F/u with Dr Acevedo neurologist.
--- NOTE | 2020-03-17 14:22 | NUR ---
Dr Acevedo called back,new orders noted and carried out,Abdoulpt's mother aware of new orders .
[2020-03-17 16:06] LABS: *BILIRUBIN,URIN NEGATIVE (NEGATIVE); *BLOOD, URINE NEGATIVE (NEGATIVE); *CLARITY,URINE CLEAR (CLEAR); *COLOR,URINE YELLOW (YELLOW); *KETONES,URINE NEGATIVE (NEGATIVE); *UROBILINOGEN,URINE 0.2 E.U./dl (NORMAL); LEUKOCYTE ESTERASE ,URINE NEGATIVE (NEGATIVE); NITRITE, URINE NEGATIVE (NEGATIVE); PH,URINE 6.5 (5.0-8.0); UGLUCOSE NEGATIVE (NEGATIVE)
[2020-03-17 20:00] VITALS: BP 120/73
--- NOTE | 2020-03-17 20:22 | NUR ---
pt on her first day of menstruation,no s/s of discomfort noted.
[2020-03-17] MEDS: RIVAROXABAN 10 MG TABLET GT SCH (21:00)
[2020-03-17] MEDS: MINERAL OIL/PETROLATUM,WHITE 57 GM TUBE TP SCH (21:21)
[2020-03-17] MEDS: ADAPALENE 0.3% TP SCH (21:21)
[2020-03-17] MEDS: MELATONIN 5MG TABLET GT SCH (21:21)
[2020-03-18] MEDS: JEVITY 1.2 1000 ML LIQUID GT PRN (02:00)
[2020-03-18] MEDS: METOCLOPRAMIDE HCL 10 MG/10 ML UDC GT SCH ×3 (06:00→17:52)
[2020-03-18] MEDS: FAMOTIDINE 20 MG TABLET GT SCH (06:00)
[2020-03-18] MEDS: HYDROGEN PEROXIDE 3% 118 ML BOTTLE TOP SCH ×2 (07:59→21:27)
[2020-03-18] MEDS: levETIRAcetam 500 MG/5 ML LIQUID UDC GT SCH ×2 (08:00→20:39)
[2020-03-18] MEDS: LACOSAMIDE 100 MG/10 ML UDC GT SCH ×2 (08:00→20:39)
[2020-03-18 08:29] VITALS: BP 117/56
[2020-03-18] MEDS: METOPROLOL TARTRATE 50 MG TABLET GT SCH ×2 (09:36→20:39)
[2020-03-18] MEDS: ACIDOPHILUS/BULGARICUS CHEW TAB GT SCH ×2 (09:36→20:39)
[2020-03-18] MEDS: BACLOFEN 10 MG TABLET GT SCH ×2 (09:37→20:39)
[2020-03-18] MEDS: CLINDAMYCIN TP SCH (09:37)
[2020-03-18] MEDS: NEOMY/BACITRA/POLYMYXIN B OINT UD PACKET TP SCH ×2 (09:37→21:00)
[2020-03-18] MEDS: NUTRISOURCE FIBER 4 GM PACKET GT SCH (09:37)
[2020-03-18] MEDS: COD LIVER OIL/ZINC OXIDE OINT 113 GM TUBE TP SCH ×2 (09:37→21:00)
[2020-03-18] MEDS: AMLODIPINE 10 MG TABLET GT SCH (09:37)
[2020-03-18 20:00] VITALS: BP 107/66
--- NOTE | 2020-03-18 20:24 | NUR ---
Pt received on C/A with FIO2-28% via T-Piece. No SOB noted. Airway care done, pt responded to physical stimuli. Trach care done. Resus. bag and back up trach at bedside. Cont. monitor.
--- NOTE | 2020-03-18 20:30 | NUR ---
pt having episode of increase spasm with facial twitching and arms spastic, hl inserted @ left thumb #24, ativan 2mg given and effective,no respiratory distress noted.
[2020-03-18] MEDS: MELATONIN 5MG TABLET GT SCH (20:40)
--- NOTE | 2020-03-18 20:40 | NUR ---
motherrosalva notified of episode and given ativan 2mg iv.
[2020-03-18] MEDS: LORAZEPAM 2 MG/1 ML VIAL IV PRN (20:43)
[2020-03-18] MEDS: RIVAROXABAN 10 MG TABLET GT SCH (20:44)
[2020-03-18] MEDS: MINERAL OIL/PETROLATUM,WHITE 57 GM TUBE TP SCH (21:00)
[2020-03-18] MEDS: ADAPALENE 0.3% TP SCH (21:00)
[2020-03-19] MEDS: METOCLOPRAMIDE HCL 10 MG/10 ML UDC GT SCH ×4 (00:26→17:19)
[2020-03-19] MEDS: JEVITY 1.2 1000 ML LIQUID GT PRN (03:10)
[2020-03-19] MEDS: FAMOTIDINE 20 MG TABLET GT SCH (05:47)
[2020-03-19 07:53] VITALS: BP 94/46
[2020-03-19] MEDS: LACOSAMIDE 100 MG/10 ML UDC GT SCH ×2 (08:35→20:22)
[2020-03-19] MEDS: METOPROLOL TARTRATE 50 MG TABLET GT SCH ×2 (08:35→20:23)
[2020-03-19] MEDS: ACIDOPHILUS/BULGARICUS CHEW TAB GT SCH ×2 (08:35→20:22)
[2020-03-19] MEDS: levETIRAcetam 500 MG/5 ML LIQUID UDC GT SCH ×2 (08:35→20:22)
[2020-03-19] MEDS: AMLODIPINE 10 MG TABLET GT SCH (08:35)
[2020-03-19] MEDS: NEOMY/BACITRA/POLYMYXIN B OINT UD PACKET TP SCH ×2 (08:36→20:23)
[2020-03-19] MEDS: CLINDAMYCIN TP SCH (08:36)
[2020-03-19] MEDS: COD LIVER OIL/ZINC OXIDE OINT 113 GM TUBE TP SCH ×2 (08:36→20:23)
[2020-03-19] MEDS: NUTRISOURCE FIBER 4 GM PACKET GT SCH (08:36)
[2020-03-19] MEDS: HYDROGEN PEROXIDE 3% 118 ML BOTTLE TOP SCH ×2 (09:00→19:29)
--- NOTE | 2020-03-19 09:07 | NUR ---
DR. ESTRADA WAS PAGED .
--- NOTE | 2020-03-19 09:12 | NUR ---
PT. WAS REPORTED BY OVEN TENDER BAGELS THAT STILL HAS HER PERIOD.
--- NOTE | 2020-03-19 09:33 | NUR ---
DR. ESTRADA(NEUROLOGIST) CALLED BACK AND AWARE THAT PT. HAD TO BE MEDICATED PRN WITH ATIVAN IV LATELY (SEE RECORD)AND WITH NEW ORDER NOW TO INCREASE KEPPRA FROM 1000MG BID TO 1500 BID AND CH. NURSE CALLED PT'S MOTHER BUT UNABLE TO TALK BECAUSE SHE WAS DRIVING AND STARTED TO CRY LOUDLY ASKING :ITS MY DTR. OK!? REPEATEDLY AND NOT ALLOWING NURSE TO SPEAK AND CH. NURSE ASKED TO PLS. WHEN SHE IS FINISH DRIVING TO [facility] CALL HER BACK .
[2020-03-19] MEDS: BACLOFEN 10 MG TABLET GT SCH ×2 (10:12→20:22)
--- NOTE | 2020-03-19 17:42 | NUR ---
ZOOM PROVIDED TO MOTHER.
--- NOTE | 2020-03-19 17:43 | NUR ---
NO SEIZURE NOTED. STALIN INCREASED BY .MOTHER AWARE.
[2020-03-19 20:00] VITALS: BP 115/53
[2020-03-19] MEDS: ADAPALENE 0.3% TP SCH (20:23)
[2020-03-19] MEDS: MELATONIN 5MG TABLET GT SCH (20:23)
[2020-03-19] MEDS: MINERAL OIL/PETROLATUM,WHITE 57 GM TUBE TP SCH (20:23)
[2020-03-19] MEDS: RIVAROXABAN 10 MG TABLET GT SCH (20:36)
[2020-03-20] MEDS: JEVITY 1.2 1000 ML LIQUID GT PRN (00:50)
[2020-03-20] MEDS: METOCLOPRAMIDE HCL 10 MG/10 ML UDC GT SCH ×4 (00:50→17:12)
[2020-03-20] MEDS: FAMOTIDINE 20 MG TABLET GT SCH (05:28)
--- NOTE | 2020-03-20 06:13 | NUR ---
Patient is sleeping well during the night. All needs met and attended. Monitoring patient for seizures, no episodes noted during this shift. Will continuo monitoring closely.
[2020-03-20] MEDS: HYDROGEN PEROXIDE 3% 118 ML BOTTLE TOP SCH ×2 (07:08→21:32)
[2020-03-20 07:32] VITALS: BP 114/76
[2020-03-20] MEDS: levETIRAcetam 500 MG/5 ML LIQUID UDC GT SCH ×2 (08:07→20:33)
[2020-03-20] MEDS: LACOSAMIDE 100 MG/10 ML UDC GT SCH ×2 (08:07→20:33)
[2020-03-20] MEDS: ACIDOPHILUS/BULGARICUS CHEW TAB GT SCH ×2 (08:09→20:33)
[2020-03-20] MEDS: METOPROLOL TARTRATE 50 MG TABLET GT SCH ×2 (08:13→20:33)
[2020-03-20] MEDS: COD LIVER OIL/ZINC OXIDE OINT 113 GM TUBE TP SCH ×2 (08:14→20:33)
[2020-03-20] MEDS: NEOMY/BACITRA/POLYMYXIN B OINT UD PACKET TP SCH ×2 (08:14→20:34)
[2020-03-20] MEDS: CLINDAMYCIN TP SCH (08:14)
[2020-03-20] MEDS: NUTRISOURCE FIBER 4 GM PACKET GT SCH (08:14)
[2020-03-20] MEDS: AMLODIPINE 10 MG TABLET GT SCH (08:14)
[2020-03-20] MEDS: BACLOFEN 10 MG TABLET GT SCH ×2 (08:15→20:33)
--- NOTE | 2020-03-20 20:22 | NUR ---
Pt received on C/A with FIO2-28% via T-Piece. No s/s of respiratory distress noted. Airway care done, pt responded to physical stimuli. Sx Cole changed. Trach care done. Resus. bag and back up trach at bedside. Cont. monitor.
[2020-03-20] MEDS: MELATONIN 5MG TABLET GT SCH (20:33)
[2020-03-20] MEDS: MINERAL OIL/PETROLATUM,WHITE 57 GM TUBE TP SCH (20:34)
[2020-03-20] MEDS: ADAPALENE 0.3% TP SCH (20:34)
[2020-03-20] MEDS: RIVAROXABAN 10 MG TABLET GT SCH (20:41)
[2020-03-20 22:40] VITALS: BP 107/66
[2020-03-21] MEDS: METOCLOPRAMIDE HCL 10 MG/10 ML UDC GT SCH ×4 (00:25→17:30)
[2020-03-21] MEDS: JEVITY 1.2 1000 ML LIQUID GT PRN (00:25)
[2020-03-21] MEDS: FAMOTIDINE 20 MG TABLET GT SCH (05:45)
[2020-03-21 07:28] VITALS: BP 128/87
[2020-03-21] MEDS: HYDROGEN PEROXIDE 3% 118 ML BOTTLE TOP SCH ×2 (07:39→21:24)
[2020-03-21] MEDS: levETIRAcetam 500 MG/5 ML LIQUID UDC GT SCH ×2 (08:22→20:33)
[2020-03-21] MEDS: LACOSAMIDE 100 MG/10 ML UDC GT SCH ×2 (08:22→20:33)
[2020-03-21] MEDS: ACIDOPHILUS/BULGARICUS CHEW TAB GT SCH ×2 (08:22→20:51)
[2020-03-21] MEDS: METOPROLOL TARTRATE 50 MG TABLET GT SCH ×2 (08:27→20:51)
[2020-03-21] MEDS: COD LIVER OIL/ZINC OXIDE OINT 113 GM TUBE TP SCH ×2 (08:28→20:52)
[2020-03-21] MEDS: NUTRISOURCE FIBER 4 GM PACKET GT SCH (08:28)
[2020-03-21] MEDS: AMLODIPINE 10 MG TABLET GT SCH (08:28)
[2020-03-21] MEDS: CLINDAMYCIN TP SCH (08:29)
[2020-03-21] MEDS: NEOMY/BACITRA/POLYMYXIN B OINT UD PACKET TP SCH ×2 (08:30→20:52)
[2020-03-21] MEDS: BACLOFEN 10 MG TABLET GT SCH ×2 (10:22→20:33)
--- NOTE | 2020-03-21 16:24 | NUR ---
NEW ORDER WAS CARRIED OUT FROM DR. CRUZ FOR COVID 19 TEST PER [facility] REQUIREMENT AND MESSAGE LEFT TO PT'S MOTHER D/T NOT PICKING UP PHONE.
[2020-03-21 20:19] VITALS: BP 133/53
--- NOTE | 2020-03-21 20:24 | NUR ---
Pt received on C/A with FIO2-28% via T-Piece. No distress noted. Airway care done, pt responded to physical stimuli. Trach care done. Resus. bag and back up trach at bedside. Cont. monitor.
[2020-03-21] MEDS: MELATONIN 5MG TABLET GT SCH (20:52)
[2020-03-21] MEDS: MINERAL OIL/PETROLATUM,WHITE 57 GM TUBE TP SCH (20:52)
[2020-03-21] MEDS: ADAPALENE 0.3% TP SCH (20:52)
[2020-03-21] MEDS: RIVAROXABAN 10 MG TABLET GT SCH (21:07)
[2020-03-22] MEDS: METOCLOPRAMIDE HCL 10 MG/10 ML UDC GT SCH ×4 (00:18→18:07)
[2020-03-22] MEDS: JEVITY 1.2 1000 ML LIQUID GT PRN (01:18)
[2020-03-22] MEDS: FAMOTIDINE 20 MG TABLET GT SCH (06:02)
[2020-03-22] MEDS: HYDROGEN PEROXIDE 3% 118 ML BOTTLE TOP SCH ×2 (08:19→21:08)
[2020-03-22 08:25] VITALS: BP 96/58
[2020-03-22] MEDS: ACIDOPHILUS/BULGARICUS CHEW TAB GT SCH ×2 (08:49→21:57)
[2020-03-22] MEDS: levETIRAcetam 500 MG/5 ML LIQUID UDC GT SCH ×2 (08:49→20:21)
[2020-03-22] MEDS: LACOSAMIDE 100 MG/10 ML UDC GT SCH ×2 (08:49→20:21)
[2020-03-22 08:50] VITALS: BP 103/65
[2020-03-22] MEDS: AMLODIPINE 10 MG TABLET GT SCH (08:50)
[2020-03-22] MEDS: NUTRISOURCE FIBER 4 GM PACKET GT SCH (08:50)
[2020-03-22] MEDS: COD LIVER OIL/ZINC OXIDE OINT 113 GM TUBE TP SCH ×2 (08:50→21:59)
[2020-03-22] MEDS: METOPROLOL TARTRATE 50 MG TABLET GT SCH ×2 (08:50→21:58)
[2020-03-22] MEDS: CLINDAMYCIN TP SCH (08:51)
[2020-03-22] MEDS: BACLOFEN 10 MG TABLET GT SCH ×2 (09:13→20:21)
--- NOTE | 2020-03-22 15:56 | NUR ---
PT'S MOTHER AWARE THAT PT. IS NEGATIVE FOR COVID19 TEST.
--- NOTE | 2020-03-22 17:00 | NUR ---
Provided zoom meeting with patient and family. No concerns at this time.
--- NOTE | 2020-03-22 19:15 | NUR ---
Pt's mother Abdoul called 183 to say that while doing zoom meeting she noticed her daughter's cheeks appeared to be swollen. (While on zoom she never mentioned her observations). She requested ice to be applied on her cheecks to reduce the swelling. Upon assesment Pt cheecks appears normal. No swelling, no redness, no c/o pain, no discomfort noted at touch. Perinatal Educator made aware she stated no need to apply ice we will only monitor. Endorsed to oncoming nurse to continue to monitor cheeks per mother's concern and document/report any changes or findings.
--- NOTE | 2020-03-22 19:30 | NUR ---
PT.OBSERVED WITH ABSOLUTELY NO SWELLING OR EDEMA ON FACE JUST FAT TISSUE ,STILL ON DECREASED TUBE FEEDING RATE D/T WT. GAIN (SEE PREVIOUS NOTES AND ORDERS). WILL CONT. MONITORING WEEKLY WT.
[2020-03-22 20:20] VITALS: BP 146/78
--- NOTE | 2020-03-22 20:22 | NUR ---
Pt received on C/A with FIO2-28% via T-Piece. No respiratory distress noted. Airway care done, pt responded to physical stimuli. Trach care done. Resus. bag and back up trach at bedside. Cont. monitor.
[2020-03-22] MEDS: RIVAROXABAN 10 MG TABLET GT SCH (21:00)
[2020-03-22] MEDS: MELATONIN 5MG TABLET GT SCH (21:58)
[2020-03-22] MEDS: ADAPALENE 0.3% TP SCH (21:59)
[2020-03-22] MEDS: MINERAL OIL/PETROLATUM,WHITE 57 GM TUBE TP SCH (21:59)
[2020-03-23] MEDS: METOCLOPRAMIDE HCL 10 MG/10 ML UDC GT SCH ×4 (00:48→17:31)
[2020-03-23] MEDS: FAMOTIDINE 20 MG TABLET GT SCH (05:31)
[2020-03-23 07:42] VITALS: BP 96/52
[2020-03-23] MEDS: levETIRAcetam 500 MG/5 ML LIQUID UDC GT SCH ×2 (08:13→20:06)
[2020-03-23] MEDS: LACOSAMIDE 100 MG/10 ML UDC GT SCH ×2 (08:13→20:06)
[2020-03-23] MEDS: ACIDOPHILUS/BULGARICUS CHEW TAB GT SCH ×2 (08:14→20:06)
[2020-03-23] MEDS: METOPROLOL TARTRATE 50 MG TABLET GT SCH ×2 (08:15→20:07)
[2020-03-23] MEDS: AMLODIPINE 10 MG TABLET GT SCH (08:15)
[2020-03-23] MEDS: CLINDAMYCIN TP SCH (08:16)
[2020-03-23] MEDS: NUTRISOURCE FIBER 4 GM PACKET GT SCH (08:16)
[2020-03-23] MEDS: COD LIVER OIL/ZINC OXIDE OINT 113 GM TUBE TP SCH ×2 (08:16→20:08)
[2020-03-23] MEDS: BACLOFEN 10 MG TABLET GT SCH ×2 (09:24→20:06)
[2020-03-23] MEDS: HYDROGEN PEROXIDE 3% 118 ML BOTTLE TOP SCH ×2 (09:26→19:26)
--- NOTE | 2020-03-23 18:20 | NUR ---
zoom meeting provided to pt's mother. pt is in bed calm, awake, and no signs of distress.
[2020-03-23] MEDS: MELATONIN 5MG TABLET GT SCH (20:07)
[2020-03-23] MEDS: RIVAROXABAN 10 MG TABLET GT SCH (20:08)
[2020-03-23] MEDS: MINERAL OIL/PETROLATUM,WHITE 57 GM TUBE TP SCH (20:08)
[2020-03-23] MEDS: ADAPALENE 0.3% TP SCH (20:08)
[2020-03-23 20:36] VITALS: BP 126/73
[2020-03-24] MEDS: METOCLOPRAMIDE HCL 10 MG/10 ML UDC GT SCH ×4 (00:33→17:48)
[2020-03-24] MEDS: JEVITY 1.2 1000 ML LIQUID GT PRN (04:33)
[2020-03-24] MEDS: FAMOTIDINE 20 MG TABLET GT SCH (05:44)
[2020-03-24 07:24] VITALS: BP 91/49
[2020-03-24] MEDS: ACIDOPHILUS/BULGARICUS CHEW TAB GT SCH ×2 (08:02→20:25)
[2020-03-24] MEDS: METOPROLOL TARTRATE 50 MG TABLET GT SCH ×2 (08:02→21:00)
[2020-03-24] MEDS: LACOSAMIDE 100 MG/10 ML UDC GT SCH ×2 (08:02→20:25)
[2020-03-24] MEDS: levETIRAcetam 500 MG/5 ML LIQUID UDC GT SCH ×2 (08:02→20:24)
[2020-03-24] MEDS: COD LIVER OIL/ZINC OXIDE OINT 113 GM TUBE TP SCH ×2 (08:03→20:27)
[2020-03-24] MEDS: CLINDAMYCIN TP SCH (08:03)
[2020-03-24] MEDS: NUTRISOURCE FIBER 4 GM PACKET GT SCH (08:03)
[2020-03-24] MEDS: AMLODIPINE 10 MG TABLET GT SCH (08:03)
[2020-03-24] MEDS: BACLOFEN 10 MG TABLET GT SCH ×2 (09:02→20:25)
[2020-03-24] MEDS: HYDROGEN PEROXIDE 3% 118 ML BOTTLE TOP SCH ×2 (09:23→21:27)
--- NOTE | 2020-03-24 19:47 | NUR ---
Seen and examined by Dr. Ramos with new orders to do CBC, CMP, Magnesium and Phosphorus on 03/29/20, noted and carried out.
[2020-03-24] MEDS: MELATONIN 5MG TABLET GT SCH (20:26)
[2020-03-24 20:27] VITALS: BP 134/50
[2020-03-24] MEDS: ADAPALENE 0.3% TP SCH (20:27)
[2020-03-24] MEDS: MINERAL OIL/PETROLATUM,WHITE 57 GM TUBE TP SCH (20:27)
[2020-03-24] MEDS: RIVAROXABAN 10 MG TABLET GT SCH (20:27)
[2020-03-25] MEDS: METOCLOPRAMIDE HCL 10 MG/10 ML UDC GT SCH ×4 (00:51→18:49)
[2020-03-25] MEDS: FAMOTIDINE 20 MG TABLET GT SCH (05:31)
[2020-03-25] MEDS: HYDROGEN PEROXIDE 3% 118 ML BOTTLE TOP SCH ×2 (07:38→21:33)
[2020-03-25 07:44] VITALS: BP 121/64
[2020-03-25] MEDS: levETIRAcetam 500 MG/5 ML LIQUID UDC GT SCH ×2 (08:21→20:32)
[2020-03-25] MEDS: ACIDOPHILUS/BULGARICUS CHEW TAB GT SCH ×2 (08:21→20:32)
[2020-03-25] MEDS: LACOSAMIDE 100 MG/10 ML UDC GT SCH ×2 (08:21→20:32)
[2020-03-25] MEDS: METOPROLOL TARTRATE 50 MG TABLET GT SCH ×2 (08:22→20:35)
[2020-03-25] MEDS: CLINDAMYCIN TP SCH (08:22)
[2020-03-25] MEDS: NUTRISOURCE FIBER 4 GM PACKET GT SCH (08:22)
[2020-03-25] MEDS: COD LIVER OIL/ZINC OXIDE OINT 113 GM TUBE TP SCH ×2 (08:22→20:37)
[2020-03-25] MEDS: AMLODIPINE 10 MG TABLET GT SCH (08:22)
[2020-03-25] MEDS: BACLOFEN 10 MG TABLET GT SCH ×2 (10:00→20:32)
--- NOTE | 2020-03-25 13:33 | NUR ---
SAPNA notified patient's mother Abdoul, via email, that the next IDT meeting for the patient is schedule for 03/30/2020 at 11am. SAPNA asked Sarahroman to let this SAPNA know if Abdoul would like to participate in the meeting through speaker phone.
[2020-03-25 20:00] VITALS: BP 108/71
[2020-03-25] MEDS: MELATONIN 5MG TABLET GT SCH (20:36)
[2020-03-25] MEDS: RIVAROXABAN 10 MG TABLET GT SCH (20:37)
[2020-03-25] MEDS: MINERAL OIL/PETROLATUM,WHITE 57 GM TUBE TP SCH (20:37)
[2020-03-25] MEDS: ADAPALENE 0.3% TP SCH (20:37)
[2020-03-26] MEDS: METOCLOPRAMIDE HCL 10 MG/10 ML UDC GT SCH ×5 (00:41→23:12)
[2020-03-26] MEDS: FAMOTIDINE 20 MG TABLET GT SCH (05:55)
[2020-03-26] MEDS: JEVITY 1.2 1000 ML LIQUID GT PRN ×2 (06:35→09:08)
[2020-03-26 07:45] VITALS: BP 103/52
[2020-03-26] MEDS: HYDROGEN PEROXIDE 3% 118 ML BOTTLE TOP SCH ×2 (08:37→19:27)
[2020-03-26] MEDS: METOPROLOL TARTRATE 50 MG TABLET GT SCH ×2 (09:00→20:36)
[2020-03-26] MEDS: AMLODIPINE 10 MG TABLET GT SCH (09:00)
[2020-03-26] MEDS: LACOSAMIDE 100 MG/10 ML UDC GT SCH ×2 (09:00→20:35)
[2020-03-26] MEDS: levETIRAcetam 500 MG/5 ML LIQUID UDC GT SCH ×2 (09:00→20:35)
[2020-03-26] MEDS: ACIDOPHILUS/BULGARICUS CHEW TAB GT SCH ×2 (09:03→20:35)
[2020-03-26] MEDS: NUTRISOURCE FIBER 4 GM PACKET GT SCH (09:04)
[2020-03-26] MEDS: COD LIVER OIL/ZINC OXIDE OINT 113 GM TUBE TP SCH ×2 (09:04→20:36)
[2020-03-26] MEDS: BACLOFEN 10 MG TABLET GT SCH ×2 (09:06→20:35)
[2020-03-26] MEDS: CLINDAMYCIN TP SCH (09:06)
[2020-03-26 20:00] VITALS: BP 118/79
[2020-03-26] MEDS: MINERAL OIL/PETROLATUM,WHITE 57 GM TUBE TP SCH (20:36)
[2020-03-26] MEDS: ADAPALENE 0.3% TP SCH (20:36)
[2020-03-26] MEDS: MELATONIN 5MG TABLET GT SCH (20:36)
[2020-03-26] MEDS: RIVAROXABAN 10 MG TABLET GT SCH (21:04)
[2020-03-27] MEDS: FAMOTIDINE 20 MG TABLET GT SCH (05:12)
[2020-03-27] MEDS: METOCLOPRAMIDE HCL 10 MG/10 ML UDC GT SCH ×4 (05:12→23:15)
[2020-03-27 07:36] VITALS: BP 120/64
[2020-03-27] MEDS: LACOSAMIDE 100 MG/10 ML UDC GT SCH ×2 (09:00→20:35)
[2020-03-27] MEDS: HYDROGEN PEROXIDE 3% 118 ML BOTTLE TOP SCH ×2 (09:00→21:27)
[2020-03-27] MEDS: levETIRAcetam 500 MG/5 ML LIQUID UDC GT SCH ×2 (09:00→20:35)
[2020-03-27] MEDS: ACIDOPHILUS/BULGARICUS CHEW TAB GT SCH ×2 (09:15→20:35)
[2020-03-27] MEDS: METOPROLOL TARTRATE 50 MG TABLET GT SCH ×2 (09:17→20:35)
[2020-03-27] MEDS: NUTRISOURCE FIBER 4 GM PACKET GT SCH (09:18)
[2020-03-27] MEDS: COD LIVER OIL/ZINC OXIDE OINT 113 GM TUBE TP SCH ×2 (09:18→20:35)
[2020-03-27] MEDS: BACLOFEN 10 MG TABLET GT SCH ×2 (09:18→20:35)
[2020-03-27] MEDS: CLINDAMYCIN TP SCH (09:18)
[2020-03-27] MEDS: AMLODIPINE 10 MG TABLET GT SCH (09:18)
[2020-03-27] MEDS: JEVITY 1.2 1000 ML LIQUID GT PRN (09:20)
[2020-03-27] MEDS: ADAPALENE 0.3% TP SCH (20:35)
[2020-03-27] MEDS: MELATONIN 5MG TABLET GT SCH (20:35)
[2020-03-27] MEDS: MINERAL OIL/PETROLATUM,WHITE 57 GM TUBE TP SCH (20:35)
[2020-03-27 20:58] VITALS: BP 123/80
[2020-03-27] MEDS: RIVAROXABAN 10 MG TABLET GT SCH (21:03)
[2020-03-28] MEDS: FAMOTIDINE 20 MG TABLET GT SCH (05:07)
[2020-03-28] MEDS: METOCLOPRAMIDE HCL 10 MG/10 ML UDC GT SCH ×4 (05:07→23:19)
[2020-03-28 07:59] VITALS: BP 110/45
[2020-03-28 08:45] VITALS: BP 102/61
[2020-03-28] MEDS: levETIRAcetam 500 MG/5 ML LIQUID UDC GT SCH ×2 (08:50→20:50)
[2020-03-28] MEDS: ACIDOPHILUS/BULGARICUS CHEW TAB GT SCH ×2 (08:50→20:51)
[2020-03-28] MEDS: LACOSAMIDE 100 MG/10 ML UDC GT SCH ×2 (08:50→20:50)
[2020-03-28] MEDS: METOPROLOL TARTRATE 50 MG TABLET GT SCH ×2 (09:00→20:51)
[2020-03-28] MEDS: AMLODIPINE 10 MG TABLET GT SCH (09:00)
[2020-03-28] MEDS: CLINDAMYCIN TP SCH (09:06)
[2020-03-28] MEDS: BACLOFEN 10 MG TABLET GT SCH ×2 (09:06→20:50)
[2020-03-28] MEDS: COD LIVER OIL/ZINC OXIDE OINT 113 GM TUBE TP SCH ×2 (09:06→20:51)
[2020-03-28] MEDS: NUTRISOURCE FIBER 4 GM PACKET GT SCH (09:06)
[2020-03-28] MEDS: JEVITY 1.2 1000 ML LIQUID GT PRN (09:10)
[2020-03-28] MEDS: HYDROGEN PEROXIDE 3% 118 ML BOTTLE TOP SCH ×2 (09:26→21:00)
[2020-03-28 18:45] VITALS: BP 131/78
[2020-03-28 19:44] VITALS: BP 131/78
--- NOTE | 2020-03-28 19:56 | NUR ---
Covid 19 test done today.per [facility] requirement.Responsible libertarian notified.
[2020-03-28] MEDS: ADAPALENE 0.3% TP SCH (20:51)
[2020-03-28] MEDS: MINERAL OIL/PETROLATUM,WHITE 57 GM TUBE TP SCH (20:51)
[2020-03-28] MEDS: MELATONIN 5MG TABLET GT SCH (20:51)
[2020-03-28] MEDS: RIVAROXABAN 10 MG TABLET GT SCH (21:09)
[2020-03-29] MEDS: METOCLOPRAMIDE HCL 10 MG/10 ML UDC GT SCH ×3 (05:06→17:17)
[2020-03-29] MEDS: FAMOTIDINE 20 MG TABLET GT SCH (05:06)
[2020-03-29 05:59] LABS: BASOPHILS % (AUTO) 0.6 % (0.0-2.0); EOSINOPHILS # (AUTO) 0.4 K/uL (0.0-0.7); EOSINOPHILS % (AUTO) 5.8 % (0.0-7.0); HEMATOCRIT 37.8 % (31.2-41.9); HEMOGLOBIN 13.1 g/dL (10.9-14.3); LYMPHOCYTES # (AUTO) 1.9 K/uL (20.0-40.0); LYMPHOCYTES % (AUTO) 24.3 % (20.5-51.5); MEAN CORPUSCULAR HEMOGLOBIN 31.1 uug (24.7-32.8); MEAN CORPUSCULAR HGB CONC 35 g/dL (32.3-35.6); MEAN CORPUSCULAR VOLUME 90.1 fL (75.5-95.3); MONOCYTES # (AUTO) 0.6 K/uL (2.0-10.0); MONOCYTES % (AUTO) 7.8 % (0.0-11.0); NEUTROPHILS # (AUTO) 4.7 K/uL (1.8-8.9); NEUTROPHILS % (AUTO) 61.5 % (38.5-71.5); PLATELET COUNT (AUTO) 296 K/uL (179-408); WHITE BLOOD COUNT (AUTO) 7.7 K/uL (3.8-11.8)
[2020-03-29 06:21] LABS: BILIRUBIN,TOTAL 0.2 mg/dL (0.2-1.0); CREATININE 0.6 mg/dL (0.6-1.3); MAGNESIUM 2.3 mg/dL (1.8-2.4); PHOSPHOROUS 4.8 mg/dL (2.5-4.9); POTASSIUM 4.9 mmol/L (3.5-5.1); TOTAL PROTEIN, SERUM 8.1 g/dL (6.4-8.2)
[2020-03-29] MEDS: LACOSAMIDE 100 MG/10 ML UDC GT SCH ×2 (08:00→20:14)
[2020-03-29] MEDS: levETIRAcetam 500 MG/5 ML LIQUID UDC GT SCH ×2 (08:00→20:14)
[2020-03-29 08:25] VITALS: BP 119/70
[2020-03-29] MEDS: HYDROGEN PEROXIDE 3% 118 ML BOTTLE TOP SCH ×2 (08:30→21:23)
--- NOTE | 2020-03-29 09:10 | NUR ---
SAPNA received an email from patient's mother Abdoul, in response to the email this SAPNA had sent Abdoul on 03/25, notifying her of the next IDT meeting date/time and inviting her to participate. Abdoul stated int he email that she would like to participate. SAPNA asked Abdoul to be available on 03/30 between 11am-12pm in order to receive the team's call during the meeting.
[2020-03-29] MEDS: ACIDOPHILUS/BULGARICUS CHEW TAB GT SCH ×2 (09:22→20:14)
[2020-03-29] MEDS: METOPROLOL TARTRATE 50 MG TABLET GT SCH ×2 (09:23→20:14)
[2020-03-29] MEDS: BACLOFEN 10 MG TABLET GT SCH ×2 (09:24→20:14)
[2020-03-29] MEDS: NUTRISOURCE FIBER 4 GM PACKET GT SCH (09:24)
[2020-03-29] MEDS: COD LIVER OIL/ZINC OXIDE OINT 113 GM TUBE TP SCH ×2 (09:24→20:15)
[2020-03-29] MEDS: AMLODIPINE 10 MG TABLET GT SCH (09:24)
[2020-03-29] MEDS: CLINDAMYCIN TP SCH (09:24)
[2020-03-29] MEDS: JEVITY 1.2 1000 ML LIQUID GT PRN (11:50)
--- NOTE | 2020-03-29 12:00 | NUR ---
SEEN BY QUAN Sharma AND WITH NNO.
--- NOTE | 2020-03-29 16:15 | NUR ---
Referral for Probate Conservatorship Investigation form completed and mailed today to: Office of the Public Guardian [address] [place] [address] Copy placed in patient's file in office.
--- NOTE | 2020-03-29 17:30 | NUR ---
Zoom provided, Mother notified result for covid19 was negative.
[2020-03-29] MEDS: MELATONIN 5MG TABLET GT SCH (20:14)
[2020-03-29] MEDS: MINERAL OIL/PETROLATUM,WHITE 57 GM TUBE TP SCH (20:15)
[2020-03-29] MEDS: ADAPALENE 0.3% TP SCH (20:16)
[2020-03-29 20:29] VITALS: BP 129/74
[2020-03-29] MEDS: RIVAROXABAN 10 MG TABLET GT SCH (21:00)
[2020-03-30] MEDS: FAMOTIDINE 20 MG TABLET GT SCH (05:03)
[2020-03-30] MEDS: METOCLOPRAMIDE HCL 10 MG/10 ML UDC GT SCH ×4 (05:03→17:06)
[2020-03-30 07:30] VITALS: BP 99/58
[2020-03-30] MEDS: LACOSAMIDE 100 MG/10 ML UDC GT SCH ×2 (08:10→20:41)
[2020-03-30] MEDS: METOPROLOL TARTRATE 50 MG TABLET GT SCH ×2 (08:10→20:46)
[2020-03-30] MEDS: AMLODIPINE 10 MG TABLET GT SCH (08:10)
[2020-03-30] MEDS: levETIRAcetam 500 MG/5 ML LIQUID UDC GT SCH ×2 (08:10→20:41)
[2020-03-30] MEDS: ACIDOPHILUS/BULGARICUS CHEW TAB GT SCH ×2 (08:10→20:44)
[2020-03-30] MEDS: COD LIVER OIL/ZINC OXIDE OINT 113 GM TUBE TP SCH ×2 (08:11→20:47)
[2020-03-30] MEDS: NUTRISOURCE FIBER 4 GM PACKET GT SCH (08:11)
[2020-03-30] MEDS: CLINDAMYCIN TP SCH (08:11)
[2020-03-30] MEDS: HYDROGEN PEROXIDE 3% 118 ML BOTTLE TOP SCH ×2 (08:41→21:29)
[2020-03-30] MEDS: BACLOFEN 10 MG TABLET GT SCH ×2 (10:00→20:41)
[2020-03-30] MEDS: JEVITY 1.2 1000 ML LIQUID GT PRN (14:35)
--- NOTE | 2020-03-30 16:58 | NUR ---
INTERDISCIPLINARY PLAN OF CARE CONFERENCE was held today. Patient's mother Abdoul participated in the meeting through speaker phone. Dr. Ramos and the Interdisciplinary Team reviewed the current plan of care in detail. RN reported on patient's medical condition. See RN IDT conference notes. All disciplines provided report on patient's status. No major changes in medical condition were reported by nursing or by other disciplines. See all other disciplines IDT notes and physician's progress notes for additional details. Abdoul's questions were addressed by the IDT team and by Dr. Ramos, and Abdoul expressed understanding of the current plan of care.
[2020-03-30 20:28] VITALS: BP 111/69
[2020-03-30] MEDS: MELATONIN 5MG TABLET GT SCH (20:46)
[2020-03-30] MEDS: RIVAROXABAN 10 MG TABLET GT SCH (20:47)
[2020-03-30] MEDS: MINERAL OIL/PETROLATUM,WHITE 57 GM TUBE TP SCH (20:47)
[2020-03-30] MEDS: ADAPALENE 0.3% TP SCH (20:47)
[2020-03-31] MEDS: FAMOTIDINE 20 MG TABLET GT SCH (06:22)
[2020-03-31] MEDS: METOCLOPRAMIDE HCL 10 MG/10 ML UDC GT SCH ×4 (06:22→17:15)
[2020-03-31 07:28] VITALS: BP 97/56
[2020-03-31] MEDS: levETIRAcetam 500 MG/5 ML LIQUID UDC GT SCH ×2 (08:54→20:22)
[2020-03-31] MEDS: LACOSAMIDE 100 MG/10 ML UDC GT SCH ×2 (08:54→20:22)
[2020-03-31] MEDS: ACIDOPHILUS/BULGARICUS CHEW TAB GT SCH ×2 (08:55→20:22)
[2020-03-31] MEDS: METOPROLOL TARTRATE 50 MG TABLET GT SCH ×2 (08:57→20:22)
[2020-03-31] MEDS: NUTRISOURCE FIBER 4 GM PACKET GT SCH (08:58)
[2020-03-31] MEDS: COD LIVER OIL/ZINC OXIDE OINT 113 GM TUBE TP SCH ×2 (08:58→20:23)
[2020-03-31] MEDS: AMLODIPINE 10 MG TABLET GT SCH (08:58)
[2020-03-31] MEDS: CLINDAMYCIN TP SCH (08:59)
[2020-03-31] MEDS: HYDROGEN PEROXIDE 3% 118 ML BOTTLE TOP SCH ×2 (09:05→21:00)
[2020-03-31] MEDS: BACLOFEN 10 MG TABLET GT SCH ×2 (10:00→20:22)
--- NOTE | 2020-03-31 10:53 | NUR ---
Left Message to Dr Marybel Huffman regarding the reglan ordered on 03/10 20,pt's mother request to decrease it due pt has more muscle spasm.
[2020-03-31] MEDS: JEVITY 1.2 1000 ML LIQUID GT PRN (15:01)
[2020-03-31 17:00] VITALS: BP 108/58
--- NOTE | 2020-03-31 17:24 | NUR ---
Video chat provided with pt's mother.
--- NOTE | 2020-03-31 17:26 | NUR ---
Spoke to Dr No ,he will evaluate the patient tonight.
--- NOTE | 2020-03-31 19:18 | NUR ---
seen and examined by Dr Ramos with new orders noted ,for dermatology consult,left message to Dr Cabrera office [phone],clindamycin is causing her more dryness on her face,reglan decrease to 3 times a day.
[2020-03-31] MEDS: MELATONIN 5MG TABLET GT SCH (20:22)
[2020-03-31] MEDS: ADAPALENE 0.3% TP SCH (20:23)
[2020-03-31] MEDS: MINERAL OIL/PETROLATUM,WHITE 57 GM TUBE TP SCH (20:23)
[2020-03-31] MEDS: RIVAROXABAN 10 MG TABLET GT SCH (20:23)
[2020-03-31 20:43] VITALS: BP 130/73
[2020-04-01] MEDS: FAMOTIDINE 20 MG TABLET GT SCH (05:56)
[2020-04-01] MEDS: METOCLOPRAMIDE HCL 10 MG/10 ML UDC GT SCH ×3 (05:56→22:00)
[2020-04-01 07:48] VITALS: BP 105/57
[2020-04-01] MEDS: LACOSAMIDE 100 MG/10 ML UDC GT SCH ×2 (08:12→20:14)
[2020-04-01] MEDS: levETIRAcetam 500 MG/5 ML LIQUID UDC GT SCH ×2 (08:12→20:10)
[2020-04-01] MEDS: METOPROLOL TARTRATE 50 MG TABLET GT SCH ×2 (08:13→20:25)
[2020-04-01] MEDS: ACIDOPHILUS/BULGARICUS CHEW TAB GT SCH ×2 (08:13→20:25)
[2020-04-01] MEDS: NUTRISOURCE FIBER 4 GM PACKET GT SCH (08:14)
[2020-04-01] MEDS: COD LIVER OIL/ZINC OXIDE OINT 113 GM TUBE TP SCH ×2 (08:14→20:26)
[2020-04-01] MEDS: AMLODIPINE 10 MG TABLET GT SCH (08:14)
[2020-04-01] MEDS: CLINDAMYCIN TP SCH (08:14)
[2020-04-01] MEDS: HYDROGEN PEROXIDE 3% 118 ML BOTTLE TOP SCH ×2 (09:56→21:00)
[2020-04-01] MEDS: BACLOFEN 10 MG TABLET GT SCH ×2 (10:00→20:13)
--- NOTE | 2020-04-01 13:00 | NUR ---
DR. ESPINOZA (BIOLOGY SPECIALIST)WAS CALLED AND AWARE OF PT'S FACE WITH DRY AND SCALY SKIN ,PICTURE TAKEN AND WITH NEW ORDERS AND PT'S MOTHER AWARE AND IN AGREEMENT AND SHE WILL PROVIDE CETAPHIL MOISTURIZING LOTION.ORDERS WERE NOTIFIED AND CLARIFIED WITH [facility] PHARMACIST AND CARRIED OUT.
[2020-04-01 14:19] VITALS: BP 108/59
[2020-04-01] MEDS: JEVITY 1.2 1000 ML LIQUID GT PRN (17:21)
[2020-04-01 20:00] VITALS: BP 102/56
[2020-04-01] MEDS: MELATONIN 5MG TABLET GT SCH (20:26)
[2020-04-01] MEDS: RIVAROXABAN 10 MG TABLET GT SCH (20:29)
[2020-04-02] MEDS: FAMOTIDINE 20 MG TABLET GT SCH (05:57)
[2020-04-02] MEDS: METOCLOPRAMIDE HCL 10 MG/10 ML UDC GT SCH ×3 (05:57→21:36)
[2020-04-02 07:27] VITALS: BP 102/59
[2020-04-02] MEDS: ACIDOPHILUS/BULGARICUS CHEW TAB GT SCH ×2 (08:57→20:17)
[2020-04-02] MEDS: LACOSAMIDE 100 MG/10 ML UDC GT SCH ×2 (08:57→20:17)
[2020-04-02] MEDS: levETIRAcetam 500 MG/5 ML LIQUID UDC GT SCH ×2 (08:57→20:17)
[2020-04-02] MEDS: METOPROLOL TARTRATE 50 MG TABLET GT SCH ×2 (08:58→20:18)
[2020-04-02] MEDS: AMLODIPINE 10 MG TABLET GT SCH (09:00)
[2020-04-02] MEDS: NUTRISOURCE FIBER 4 GM PACKET GT SCH (09:01)
[2020-04-02] MEDS: CLINDAMYCIN TP SCH (09:01)
[2020-04-02] MEDS: [UNRECOGNIZED DRUG - OTHER] TP SCH (09:01)
[2020-04-02] MEDS: COD LIVER OIL/ZINC OXIDE OINT 113 GM TUBE TP SCH ×2 (09:01→20:21)
[2020-04-02] MEDS: BACLOFEN 10 MG TABLET GT SCH ×2 (09:02→20:17)
[2020-04-02] MEDS: HYDROGEN PEROXIDE 3% 118 ML BOTTLE TOP SCH ×2 (09:11→21:29)
[2020-04-02] MEDS: JEVITY 1.2 1000 ML LIQUID GT PRN (14:17)
[2020-04-02 14:36] VITALS: BP 115/56
--- NOTE | 2020-04-02 16:45 | NUR ---
DR. GLOVER(G.I) WAS CALLED AND STATED THAT HE WILL SEE PT.TOMORROW.
[2020-04-02 19:42] VITALS: BP 127/68
[2020-04-02] MEDS: MELATONIN 5MG TABLET GT SCH (20:18)
[2020-04-02] MEDS: RIVAROXABAN 10 MG TABLET GT SCH (20:19)
[2020-04-03 02:30] VITALS: BP 103/60
[2020-04-03] MEDS: FAMOTIDINE 20 MG TABLET GT SCH (06:02)
[2020-04-03] MEDS: METOCLOPRAMIDE HCL 10 MG/10 ML UDC GT SCH ×3 (06:03→21:51)
[2020-04-03 07:28] VITALS: BP 120/60
[2020-04-03] MEDS: levETIRAcetam 500 MG/5 ML LIQUID UDC GT SCH ×2 (08:00→20:31)
[2020-04-03] MEDS: LACOSAMIDE 100 MG/10 ML UDC GT SCH ×2 (08:00→20:39)
[2020-04-03] MEDS: HYDROGEN PEROXIDE 3% 118 ML BOTTLE TOP SCH ×2 (09:01→21:22)
[2020-04-03] MEDS: AMLODIPINE 10 MG TABLET GT SCH (09:03)
[2020-04-03] MEDS: METOPROLOL TARTRATE 50 MG TABLET GT SCH ×2 (09:03→20:39)
[2020-04-03] MEDS: COD LIVER OIL/ZINC OXIDE OINT 113 GM TUBE TP SCH ×2 (09:03→20:32)
[2020-04-03] MEDS: ACIDOPHILUS/BULGARICUS CHEW TAB GT SCH ×2 (09:03→20:31)
[2020-04-03] MEDS: NUTRISOURCE FIBER 4 GM PACKET GT SCH (09:03)
[2020-04-03] MEDS: BACLOFEN 10 MG TABLET GT SCH ×2 (09:05→20:31)
[2020-04-03] MEDS: ADAPALENE 0.1% TP SCH (09:05)
[2020-04-03] MEDS: CLINDAMYCIN TP SCH (09:05)
--- NOTE | 2020-04-03 12:18 | NUR ---
PT. WAS SEEN AND EXAMINED BY DR. MCKEON(G.I) AND AWARE THAT PT. HAD VOMITING EPISODES AND HAD TU FEEEDING RATE DECREASED D/T WT. GAIN AND SHE WAS STARTED ON REGLAN AND THEN HAD INCREASED TWITCHING AND THEN REGLAN WAS DECREASED FREQUENCY. STATED "WELL SHE IS TOLERATING GT FEEDING AND NO MORE MUSCLE TWITCHING" AND HE HAD NNO.
--- NOTE | 2020-04-03 17:45 | NUR ---
Provided video chat to pt. and her mother with no problem noted, pt. kept clean and comfortable, all needs attended and anticipated.
[2020-04-03] MEDS: MELATONIN 5MG TABLET GT SCH (20:32)
[2020-04-03] MEDS: RIVAROXABAN 10 MG TABLET GT SCH (21:51)
[2020-04-03 23:09] VITALS: BP 138/68
[2020-04-04] MEDS: METOCLOPRAMIDE HCL 10 MG/10 ML UDC GT SCH (06:15)
[2020-04-04] MEDS: FAMOTIDINE 20 MG TABLET GT SCH (06:15)
[2020-04-04] MEDS: HYDROGEN PEROXIDE 3% 118 ML BOTTLE TOP SCH ×2 (07:18→20:52)
[2020-04-04] MEDS: LACOSAMIDE 100 MG/10 ML UDC GT SCH ×2 (08:16→20:14)
[2020-04-04] MEDS: ACIDOPHILUS/BULGARICUS CHEW TAB GT SCH ×2 (08:16→20:12)
[2020-04-04] MEDS: levETIRAcetam 500 MG/5 ML LIQUID UDC GT SCH ×2 (08:16→20:11)
[2020-04-04] MEDS: METOPROLOL TARTRATE 50 MG TABLET GT SCH ×2 (08:16→20:14)
[2020-04-04] MEDS: COD LIVER OIL/ZINC OXIDE OINT 113 GM TUBE TP SCH ×2 (08:17→20:14)
[2020-04-04] MEDS: NUTRISOURCE FIBER 4 GM PACKET GT SCH (08:17)
[2020-04-04] MEDS: AMLODIPINE 10 MG TABLET GT SCH (08:17)
[2020-04-04] MEDS: [UNRECOGNIZED DRUG - OTHER] TP SCH (08:18)
[2020-04-04] MEDS: CLINDAMYCIN TP SCH (08:18)
[2020-04-04] MEDS: BACLOFEN 10 MG TABLET GT SCH ×2 (10:09→20:12)
--- NOTE | 2020-04-04 11:20 | NUR ---
PT. OBSERVED DURING BATH BY SEWING TRIMMER THAT BOTH BREASTS HAD WHAT APPEARS LIKE MILK DISCHARGE AND DR. MTZ (CONTINUOUS IMPROVEMENT BLACK BELT FROM DR. FORREST) WAS NOTIFIED AND WITH NEW ORDER TO D/C REGLAN AND OBSERVE IF THIS DISCHARGE STOPS.
--- NOTE | 2020-04-04 11:22 | NUR ---
PT'S MOTHER WAS CALLED BUT SHE STATED THAT SHE WAS DRIVING AND STARTED TO CRY AND CRY OVER THE PHONE STATING"WHATS WRONG WITH MY DAUGHTER ?!! AND NURSE TOLD HER THAT PLS TO CALM DOWN CALL HER BACK WHEN SHE STOPS DRIVING AND THAT IS NOT AN EMERGENCY BUT PLS TO CALL BACK WHEN IS SAFE FOR HER.
--- NOTE | 2020-04-04 17:35 | NUR ---
Video chat provided with the pt. and family (mother). The family expressed concern asking "Is my daughter ok, please tell me she is ok". Told her to calm down and explained the latest order of the MD. and told her all her v/s are ok and wnl . Family verbalized understanding. Will continue to monitor.
[2020-04-04] MEDS: MELATONIN 5MG TABLET GT SCH (20:14)
[2020-04-04] MEDS: RIVAROXABAN 10 MG TABLET GT SCH (20:15)
[2020-04-04 22:00] VITALS: BP 116/61
--- NOTE | 2020-04-05 05:33 | NUR ---
Patient is asleep, no signs of any distress, no milk discharge from breasts, kept patient clean and comfortable.
[2020-04-05] MEDS: FAMOTIDINE 20 MG TABLET GT SCH (05:44)
[2020-04-05 06:46] LABS: BILIRUBIN,DIRECT 0.1 mg/dL (0.0-0.2); BILIRUBIN,TOTAL 0.1 mg/dL (0.2-1.0); TOTAL PROTEIN, SERUM 7.4 g/dL (6.4-8.2)
--- NOTE | 2020-04-05 07:15 | NUR ---
Will test patient for COVID-19 today.
[2020-04-05 07:25] VITALS: BP 89/52
[2020-04-05] MEDS: LACOSAMIDE 100 MG/10 ML UDC GT SCH ×2 (08:30→20:04)
[2020-04-05] MEDS: ACIDOPHILUS/BULGARICUS CHEW TAB GT SCH ×2 (08:30→20:05)
[2020-04-05] MEDS: levETIRAcetam 500 MG/5 ML LIQUID UDC GT SCH ×2 (08:30→20:04)
[2020-04-05] MEDS: METOPROLOL TARTRATE 50 MG TABLET GT SCH ×2 (08:31→20:05)
[2020-04-05] MEDS: ADAPALENE 0.1% TP SCH (08:32)
[2020-04-05] MEDS: CLINDAMYCIN TP SCH (08:32)
[2020-04-05] MEDS: COD LIVER OIL/ZINC OXIDE OINT 113 GM TUBE TP SCH ×2 (08:32→20:07)
[2020-04-05] MEDS: AMLODIPINE 10 MG TABLET GT SCH (08:32)
[2020-04-05] MEDS: NUTRISOURCE FIBER 4 GM PACKET GT SCH (08:32)
[2020-04-05] MEDS: HYDROGEN PEROXIDE 3% 118 ML BOTTLE TOP SCH ×2 (09:19→21:30)
--- NOTE | 2020-04-05 09:19 | NUR ---
SEE RESPIRATORY PROGRESS NOTE.
[2020-04-05] MEDS: BACLOFEN 10 MG TABLET GT SCH ×2 (10:42→20:04)
--- NOTE | 2020-04-05 12:30 | NUR ---
NO COVID 19 TEST REQUIRED TODAY BY [facility] AND PT'S MOTHER AWARE.
--- NOTE | 2020-04-05 12:30 | NUR ---
SEEN BY QUAN Sharma AND WITH NNO.
--- NOTE | 2020-04-05 12:30 | NUR ---
SEEN BY QUAN Sharma AND WITH NNO.
--- NOTE | 2020-04-05 14:21 | NUR ---
This SW received a voicemail message from [facility] director social service Shannan, . This SW called Shannan back, but was unable to connect with her. This SW left Shannan a voicemail messaging asking her to call this SW back.
[2020-04-05 20:00] VITALS: BP 106/53
[2020-04-05] MEDS: MELATONIN 5MG TABLET GT SCH (20:06)
[2020-04-05] MEDS: RIVAROXABAN 10 MG TABLET GT SCH (20:07)
[2020-04-06] MEDS: FAMOTIDINE 20 MG TABLET GT SCH (06:02)
[2020-04-06] MEDS: HYDROGEN PEROXIDE 3% 118 ML BOTTLE TOP SCH ×2 (07:26→21:06)
[2020-04-06 07:51] VITALS: BP 90/54
[2020-04-06] MEDS: levETIRAcetam 500 MG/5 ML LIQUID UDC GT SCH ×2 (08:36→20:19)
[2020-04-06] MEDS: ACIDOPHILUS/BULGARICUS CHEW TAB GT SCH ×2 (08:36→20:19)
[2020-04-06] MEDS: LACOSAMIDE 100 MG/10 ML UDC GT SCH ×2 (08:36→20:19)
[2020-04-06] MEDS: AMLODIPINE 10 MG TABLET GT SCH (08:38)
[2020-04-06] MEDS: METOPROLOL TARTRATE 50 MG TABLET GT SCH ×2 (08:38→20:20)
[2020-04-06] MEDS: NUTRISOURCE FIBER 4 GM PACKET GT SCH (08:39)
[2020-04-06] MEDS: [UNRECOGNIZED DRUG - OTHER] TP SCH (08:39)
[2020-04-06] MEDS: CLINDAMYCIN TP SCH (08:39)
[2020-04-06] MEDS: COD LIVER OIL/ZINC OXIDE OINT 113 GM TUBE TP SCH ×2 (08:39→20:21)
[2020-04-06] MEDS: BACLOFEN 10 MG TABLET GT SCH ×2 (10:00→20:19)
[2020-04-06 20:00] VITALS: BP 118/74
[2020-04-06] MEDS: MELATONIN 5MG TABLET GT SCH (20:20)
[2020-04-06] MEDS: RIVAROXABAN 10 MG TABLET GT SCH (20:25)
--- NOTE | 2020-04-07 05:33 | NUR ---
Afebrile, no drainage from both breast was noted this shift, no signs of any pain or discomfort noted at this time, will continue monitor.
[2020-04-07] MEDS: FAMOTIDINE 20 MG TABLET GT SCH (05:43)
[2020-04-07 07:16] VITALS: BP 103/51
[2020-04-07] MEDS: levETIRAcetam 500 MG/5 ML LIQUID UDC GT SCH ×2 (08:53→20:56)
[2020-04-07] MEDS: ACIDOPHILUS/BULGARICUS CHEW TAB GT SCH ×2 (08:54→21:06)
[2020-04-07] MEDS: LACOSAMIDE 100 MG/10 ML UDC GT SCH ×2 (08:54→20:56)
[2020-04-07] MEDS: METOPROLOL TARTRATE 50 MG TABLET GT SCH ×2 (08:56→21:08)
[2020-04-07] MEDS: NUTRISOURCE FIBER 4 GM PACKET GT SCH (08:57)
[2020-04-07] MEDS: AMLODIPINE 10 MG TABLET GT SCH (08:57)
[2020-04-07] MEDS: CLINDAMYCIN TP SCH (09:00)
[2020-04-07] MEDS: ADAPALENE 0.1% TP SCH (09:00)
[2020-04-07] MEDS: COD LIVER OIL/ZINC OXIDE OINT 113 GM TUBE TP SCH ×2 (09:00→21:09)
[2020-04-07] MEDS: HYDROGEN PEROXIDE 3% 118 ML BOTTLE TOP SCH ×2 (09:18→20:50)
[2020-04-07] MEDS: BACLOFEN 10 MG TABLET GT SCH ×2 (10:00→20:56)
--- NOTE | 2020-04-07 18:59 | NUR ---
Seen and examined by Dr Kiran ,no new orders.
--- NOTE | 2020-04-07 19:54 | NUR ---
Seen and examined by Dr Ramos,no new orders no milk discharge noted on both breast.
[2020-04-07 20:00] VITALS: BP 117/74
[2020-04-07] MEDS: MELATONIN 5MG TABLET GT SCH (21:08)
[2020-04-07] MEDS: RIVAROXABAN 10 MG TABLET GT SCH (21:09)
--- NOTE | 2020-04-08 04:22 | NUR ---
Patient is afebrile, no discharges noted from both breast, no signs of pain or discomfort noted, kept clean and comfortable.
[2020-04-08] MEDS: FAMOTIDINE 20 MG TABLET GT SCH (05:33)
[2020-04-08 07:21] VITALS: BP 109/58
[2020-04-08] MEDS: HYDROGEN PEROXIDE 3% 118 ML BOTTLE TOP SCH ×2 (07:49→19:29)
[2020-04-08] MEDS: levETIRAcetam 500 MG/5 ML LIQUID UDC GT SCH ×2 (08:30→20:08)
[2020-04-08] MEDS: LACOSAMIDE 100 MG/10 ML UDC GT SCH ×2 (08:32→20:08)
[2020-04-08] MEDS: ACIDOPHILUS/BULGARICUS CHEW TAB GT SCH ×2 (08:32→20:08)
[2020-04-08] MEDS: METOPROLOL TARTRATE 50 MG TABLET GT SCH ×2 (08:32→20:40)
[2020-04-08] MEDS: AMLODIPINE 10 MG TABLET GT SCH (08:33)
[2020-04-08] MEDS: NUTRISOURCE FIBER 4 GM PACKET GT SCH (08:33)
[2020-04-08] MEDS: [UNRECOGNIZED DRUG - OTHER] TP SCH (08:35)
[2020-04-08] MEDS: COD LIVER OIL/ZINC OXIDE OINT 113 GM TUBE TP SCH ×2 (08:35→20:09)
[2020-04-08] MEDS: CLINDAMYCIN TP SCH (08:35)
[2020-04-08] MEDS: JEVITY 1.2 1000 ML LIQUID GT PRN (09:16)
[2020-04-08] MEDS: BACLOFEN 10 MG TABLET GT SCH ×2 (09:16→20:08)
[2020-04-08 20:00] VITALS: BP 96/68
[2020-04-08] MEDS: MELATONIN 5MG TABLET GT SCH (20:09)
[2020-04-08] MEDS: RIVAROXABAN 10 MG TABLET GT SCH (20:09)
--- NOTE | 2020-04-08 23:08 | NUR ---
Patient is afebrile, no signs of any distress, no discharge from the breasts noted, kept patient clean and comfortable.
[2020-04-09] MEDS: JEVITY 1.2 1000 ML LIQUID GT PRN (03:51)
[2020-04-09] MEDS: FAMOTIDINE 20 MG TABLET GT SCH (05:28)
[2020-04-09 05:49] VITALS: BP 117/64
[2020-04-09 07:55] VITALS: BP 132/74
[2020-04-09] MEDS: LACOSAMIDE 100 MG/10 ML UDC GT SCH ×2 (08:44→20:20)
[2020-04-09] MEDS: levETIRAcetam 500 MG/5 ML LIQUID UDC GT SCH ×2 (08:44→20:20)
[2020-04-09] MEDS: ACIDOPHILUS/BULGARICUS CHEW TAB GT SCH ×2 (08:45→20:20)
[2020-04-09] MEDS: NUTRISOURCE FIBER 4 GM PACKET GT SCH (08:46)
[2020-04-09] MEDS: COD LIVER OIL/ZINC OXIDE OINT 113 GM TUBE TP SCH ×2 (08:46→20:21)
[2020-04-09] MEDS: AMLODIPINE 10 MG TABLET GT SCH (08:46)
[2020-04-09] MEDS: METOPROLOL TARTRATE 50 MG TABLET GT SCH ×2 (08:46→20:21)
[2020-04-09] MEDS: CLINDAMYCIN TP SCH (08:47)
[2020-04-09] MEDS: ADAPALENE 0.1% TP SCH (08:47)
[2020-04-09] MEDS: HYDROGEN PEROXIDE 3% 118 ML BOTTLE TOP SCH ×2 (09:00→21:00)
[2020-04-09] MEDS: BACLOFEN 10 MG TABLET GT SCH ×2 (09:08→20:20)
[2020-04-09 20:00] VITALS: BP 109/63
[2020-04-09] MEDS: MELATONIN 5MG TABLET GT SCH (20:21)
[2020-04-09] MEDS: RIVAROXABAN 10 MG TABLET GT SCH (20:22)
[2020-04-10] MEDS: JEVITY 1.2 1000 ML LIQUID GT PRN (02:26)
[2020-04-10] MEDS: FAMOTIDINE 20 MG TABLET GT SCH (05:51)
[2020-04-10 07:52] VITALS: BP 117/64
[2020-04-10] MEDS: ACIDOPHILUS/BULGARICUS CHEW TAB GT SCH ×2 (08:39→20:29)
[2020-04-10] MEDS: LACOSAMIDE 100 MG/10 ML UDC GT SCH ×2 (08:39→20:26)
[2020-04-10] MEDS: levETIRAcetam 500 MG/5 ML LIQUID UDC GT SCH ×2 (08:39→20:25)
[2020-04-10] MEDS: METOPROLOL TARTRATE 50 MG TABLET GT SCH ×2 (08:40→20:30)
[2020-04-10] MEDS: AMLODIPINE 10 MG TABLET GT SCH (08:41)
[2020-04-10] MEDS: NUTRISOURCE FIBER 4 GM PACKET GT SCH (08:41)
[2020-04-10] MEDS: CLINDAMYCIN TP SCH (08:42)
[2020-04-10] MEDS: [UNRECOGNIZED DRUG - OTHER] TP SCH (08:42)
[2020-04-10] MEDS: COD LIVER OIL/ZINC OXIDE OINT 113 GM TUBE TP SCH ×2 (08:42→20:29)
[2020-04-10] MEDS: HYDROGEN PEROXIDE 3% 118 ML BOTTLE TOP SCH ×2 (09:03→21:20)
[2020-04-10] MEDS: BACLOFEN 10 MG TABLET GT SCH ×2 (09:09→20:32)
[2020-04-10 20:17] VITALS: BP 99/54
[2020-04-10] MEDS: MELATONIN 5MG TABLET GT SCH (20:30)
[2020-04-10] MEDS: RIVAROXABAN 10 MG TABLET GT SCH (20:36)
[2020-04-10 22:00] VITALS: BP 100/60
[2020-04-11] MEDS: JEVITY 1.2 1000 ML LIQUID GT PRN (02:15)
[2020-04-11 02:21] VITALS: BP 103/61
[2020-04-11] MEDS: FAMOTIDINE 20 MG TABLET GT SCH (06:09)
[2020-04-11 07:41] VITALS: BP 111/56
[2020-04-11] MEDS: ACIDOPHILUS/BULGARICUS CHEW TAB GT SCH ×2 (08:46→21:52)
[2020-04-11] MEDS: LACOSAMIDE 100 MG/10 ML UDC GT SCH ×2 (08:46→20:48)
[2020-04-11] MEDS: levETIRAcetam 500 MG/5 ML LIQUID UDC GT SCH ×2 (08:46→20:48)
[2020-04-11] MEDS: METOPROLOL TARTRATE 50 MG TABLET GT SCH ×2 (08:47→21:53)
[2020-04-11] MEDS: NUTRISOURCE FIBER 4 GM PACKET GT SCH (08:47)
[2020-04-11] MEDS: AMLODIPINE 10 MG TABLET GT SCH (08:47)
[2020-04-11] MEDS: COD LIVER OIL/ZINC OXIDE OINT 113 GM TUBE TP SCH ×2 (08:48→21:53)
[2020-04-11] MEDS: ADAPALENE 0.1% TP SCH (08:48)
[2020-04-11] MEDS: CLINDAMYCIN TP SCH (08:49)
[2020-04-11] MEDS: HYDROGEN PEROXIDE 3% 118 ML BOTTLE TOP SCH ×2 (09:00→21:42)
[2020-04-11] MEDS: BACLOFEN 10 MG TABLET GT SCH ×2 (10:00→20:48)
--- NOTE | 2020-04-11 17:00 | NUR ---
zoom provided to mother.
[2020-04-11 20:27] VITALS: BP 112/60
[2020-04-11] MEDS: RIVAROXABAN 10 MG TABLET GT SCH (21:00)
[2020-04-11] MEDS: MELATONIN 5MG TABLET GT SCH (21:53)
[2020-04-12 02:14] VITALS: BP 110/52
[2020-04-12] MEDS: FAMOTIDINE 20 MG TABLET GT SCH (06:21)
[2020-04-12] MEDS: JEVITY 1.2 1000 ML LIQUID GT PRN (07:08)
[2020-04-12 07:28] VITALS: BP 90/56
[2020-04-12] MEDS: LACOSAMIDE 100 MG/10 ML UDC GT SCH ×2 (08:36→20:33)
[2020-04-12] MEDS: METOPROLOL TARTRATE 50 MG TABLET GT SCH ×2 (08:36→21:00)
[2020-04-12] MEDS: ACIDOPHILUS/BULGARICUS CHEW TAB GT SCH ×2 (08:36→21:50)
[2020-04-12] MEDS: levETIRAcetam 500 MG/5 ML LIQUID UDC GT SCH ×2 (08:36→20:32)
[2020-04-12] MEDS: COD LIVER OIL/ZINC OXIDE OINT 113 GM TUBE TP SCH ×2 (08:37→21:53)
[2020-04-12] MEDS: AMLODIPINE 10 MG TABLET GT SCH (08:37)
[2020-04-12] MEDS: [UNRECOGNIZED DRUG - OTHER] TP SCH (08:37)
[2020-04-12] MEDS: NUTRISOURCE FIBER 4 GM PACKET GT SCH (08:37)
[2020-04-12] MEDS: CLINDAMYCIN TP SCH (08:37)
[2020-04-12] MEDS: HYDROGEN PEROXIDE 3% 118 ML BOTTLE TOP SCH ×2 (09:00→19:04)
[2020-04-12] MEDS: BACLOFEN 10 MG TABLET GT SCH ×2 (10:00→20:32)
--- NOTE | 2020-04-12 16:00 | NUR ---
Mother notified covid19 test will be done today.
--- NOTE | 2020-04-12 17:41 | NUR ---
zoom provided to mother.
[2020-04-12 20:16] VITALS: BP 99/57
[2020-04-12] MEDS: RIVAROXABAN 10 MG TABLET GT SCH (21:00)
[2020-04-12] MEDS: MELATONIN 5MG TABLET GT SCH (21:51)
[2020-04-13] MEDS: FAMOTIDINE 20 MG TABLET GT SCH (06:18)
[2020-04-13] MEDS: JEVITY 1.2 1000 ML LIQUID GT PRN (06:44)
[2020-04-13 08:00] VITALS: BP 91/59
[2020-04-13] MEDS: LACOSAMIDE 100 MG/10 ML UDC GT SCH ×2 (08:55→19:59)
[2020-04-13] MEDS: ACIDOPHILUS/BULGARICUS CHEW TAB GT SCH ×2 (08:55→20:17)
[2020-04-13] MEDS: levETIRAcetam 500 MG/5 ML LIQUID UDC GT SCH ×2 (08:55→19:57)
[2020-04-13] MEDS: METOPROLOL TARTRATE 50 MG TABLET GT SCH ×2 (08:56→20:18)
[2020-04-13] MEDS: NUTRISOURCE FIBER 4 GM PACKET GT SCH (08:56)
[2020-04-13] MEDS: CLINDAMYCIN TP SCH (08:56)
[2020-04-13] MEDS: ADAPALENE 0.1% TP SCH (08:56)
[2020-04-13] MEDS: AMLODIPINE 10 MG TABLET GT SCH (08:56)
[2020-04-13] MEDS: COD LIVER OIL/ZINC OXIDE OINT 113 GM TUBE TP SCH ×2 (08:56→20:19)
[2020-04-13] MEDS: HYDROGEN PEROXIDE 3% 118 ML BOTTLE TOP SCH ×2 (09:40→21:19)
[2020-04-13] MEDS: BACLOFEN 10 MG TABLET GT SCH ×2 (09:44→19:59)
--- NOTE | 2020-04-13 10:55 | NUR ---
This SW received a voicemail message from Deputy Trish Jameson at [facility] Guardian's office, . SW called Deputy Trish Jameson back, but was not able to connect with her. This SW left Deputy Trish Jameson a voicemail message, asking her to call this SW back.
[2020-04-13] MEDS: RIVAROXABAN 10 MG TABLET GT SCH (20:18)
[2020-04-13] MEDS: MELATONIN 5MG TABLET GT SCH (20:18)
[2020-04-13 20:22] VITALS: BP 126/76
--- NOTE | 2020-04-13 22:00 | NUR ---
pt vomited small amount of gastric juice, mother armaniroman notified, 06oo- no further nausea or vomiting observed, no respiratory distress noted.
[2020-04-14] MEDS: FAMOTIDINE 20 MG TABLET GT SCH (05:34)
[2020-04-14 07:45] VITALS: BP 120/62
[2020-04-14] MEDS: levETIRAcetam 500 MG/5 ML LIQUID UDC GT SCH ×2 (08:00→20:25)
[2020-04-14] MEDS: LACOSAMIDE 100 MG/10 ML UDC GT SCH ×2 (08:00→20:25)
[2020-04-14] MEDS: HYDROGEN PEROXIDE 3% 118 ML BOTTLE TOP SCH ×2 (09:10→21:20)
[2020-04-14] MEDS: METOPROLOL TARTRATE 50 MG TABLET GT SCH ×2 (09:34→20:25)
[2020-04-14] MEDS: ACIDOPHILUS/BULGARICUS CHEW TAB GT SCH ×2 (09:34→20:25)
[2020-04-14] MEDS: BACLOFEN 10 MG TABLET GT SCH ×2 (09:35→20:25)
[2020-04-14] MEDS: COD LIVER OIL/ZINC OXIDE OINT 113 GM TUBE TP SCH ×2 (09:35→20:26)
[2020-04-14] MEDS: AMLODIPINE 10 MG TABLET GT SCH (09:35)
[2020-04-14] MEDS: CLINDAMYCIN TP SCH (09:35)
[2020-04-14] MEDS: [UNRECOGNIZED DRUG - OTHER] TP SCH (09:35)
[2020-04-14] MEDS: NUTRISOURCE FIBER 4 GM PACKET GT SCH (09:35)
--- NOTE | 2020-04-14 19:29 | NUR ---
No further vomiting during this shift ,Dr Ramos aware,no new orders.
[2020-04-14 20:00] VITALS: BP 106/59
[2020-04-14] MEDS: MELATONIN 5MG TABLET GT SCH (20:25)
[2020-04-14] MEDS: RIVAROXABAN 10 MG TABLET GT SCH (20:26)
--- NOTE | 2020-04-14 23:09 | NUR ---
Afebrile, gt feeding tolerating well, no vomiting noted, HOB elevated, kept clean and comfortable.
[2020-04-15] MEDS: JEVITY 1.2 1000 ML LIQUID GT PRN (04:32)
[2020-04-15] MEDS: FAMOTIDINE 20 MG TABLET GT SCH (06:11)
[2020-04-15] MEDS: HYDROGEN PEROXIDE 3% 118 ML BOTTLE TOP SCH ×2 (07:37→20:57)
[2020-04-15 07:47] VITALS: BP 103/53
[2020-04-15] MEDS: levETIRAcetam 500 MG/5 ML LIQUID UDC GT SCH ×2 (08:09→20:09)
[2020-04-15] MEDS: LACOSAMIDE 100 MG/10 ML UDC GT SCH ×2 (08:09→20:09)
[2020-04-15] MEDS: METOPROLOL TARTRATE 50 MG TABLET GT SCH ×2 (08:10→21:51)
[2020-04-15] MEDS: ACIDOPHILUS/BULGARICUS CHEW TAB GT SCH ×2 (08:10→20:09)
[2020-04-15] MEDS: AMLODIPINE 10 MG TABLET GT SCH (08:11)
[2020-04-15] MEDS: NUTRISOURCE FIBER 4 GM PACKET GT SCH (08:11)
[2020-04-15] MEDS: COD LIVER OIL/ZINC OXIDE OINT 113 GM TUBE TP SCH ×2 (08:11→20:10)
[2020-04-15] MEDS: CLINDAMYCIN TP SCH (09:00)
[2020-04-15] MEDS: ADAPALENE 0.1% TP SCH (10:00)
[2020-04-15] MEDS: BACLOFEN 10 MG TABLET GT SCH ×2 (10:24→20:09)
--- NOTE | 2020-04-15 11:00 | NUR ---
PATIENT IN BED, PATIENT VOMITED SMALL AMOUNT AFTER BURPING, NO S/S OF ASPIRATION NOTED. V/S WNL. RN ON CHARGED NOTIFIED, WILL CONTINUE MONITORING.
--- NOTE | 2020-04-15 16:00 | NUR ---
PATIENT'S MOTHER WAS NOTIFIED OF VOMITING EPISODE.
--- NOTE | 2020-04-15 17:30 | NUR ---
video chat done with patient's mother at this time.
--- NOTE | 2020-04-15 19:11 | NUR ---
SEEN AND EXAMINED BY DR. DE DIOS AND WITH NEW ORDERS D/Y REGURGITATION EPISODES AND PT'S MOTHER AWARE AND IN AGREEMENT.
[2020-04-15 20:00] VITALS: BP 124/81
[2020-04-15] MEDS: MELATONIN 5MG TABLET GT SCH (20:09)
[2020-04-15] MEDS: RIVAROXABAN 10 MG TABLET GT SCH (20:10)
--- NOTE | 2020-04-15 22:38 | NUR ---
Patient is sleeping at this time, no vomiting or regurgitation noted, GT feeding tolerating well, HOB elevatead, on aspiration precaution, turned and repositioned, kept clean and comfortable.
[2020-04-16] MEDS: FAMOTIDINE 20 MG TABLET GT SCH ×2 (05:32→17:06)
[2020-04-16 07:51] VITALS: BP 107/71
[2020-04-16] MEDS: levETIRAcetam 500 MG/5 ML LIQUID UDC GT SCH ×2 (08:35→20:39)
[2020-04-16] MEDS: ACIDOPHILUS/BULGARICUS CHEW TAB GT SCH ×2 (08:36→20:39)
[2020-04-16] MEDS: LACOSAMIDE 100 MG/10 ML UDC GT SCH ×2 (08:36→20:39)
[2020-04-16] MEDS: METOPROLOL TARTRATE 50 MG TABLET GT SCH ×2 (08:37→20:39)
[2020-04-16] MEDS: NUTRISOURCE FIBER 4 GM PACKET GT SCH (08:37)
[2020-04-16] MEDS: AMLODIPINE 10 MG TABLET GT SCH (08:37)
[2020-04-16] MEDS: COD LIVER OIL/ZINC OXIDE OINT 113 GM TUBE TP SCH ×2 (08:38→20:39)
[2020-04-16] MEDS: CLINDAMYCIN TP SCH (08:38)
[2020-04-16] MEDS: [UNRECOGNIZED DRUG - OTHER] TP SCH (08:38)
[2020-04-16] MEDS: JEVITY 1.2 1000 ML LIQUID GT PRN (08:39)
[2020-04-16] MEDS: HYDROGEN PEROXIDE 3% 118 ML BOTTLE TOP SCH ×2 (09:25→21:36)
[2020-04-16] MEDS: BACLOFEN 10 MG TABLET GT SCH ×2 (10:09→20:39)
--- NOTE | 2020-04-16 10:37 | NUR ---
PT. NEGATIVE FOR LATEST COVID 19 TEST A CALL FROM PER BAIRON FROM LAB (SEE RECORD) AND PT'S MOTHER WAS NOTIFIED.
--- NOTE | 2020-04-16 17:30 | NUR ---
zoom provided for patient with mother.
[2020-04-16 19:47] VITALS: BP 130/53
[2020-04-16] MEDS: MELATONIN 5MG TABLET GT SCH (20:39)
[2020-04-16] MEDS: RIVAROXABAN 10 MG TABLET GT SCH (20:42)
[2020-04-17] MEDS: FAMOTIDINE 20 MG TABLET GT SCH ×2 (05:26→17:14)
[2020-04-17 07:52] VITALS: BP 109/72
[2020-04-17] MEDS: LACOSAMIDE 100 MG/10 ML UDC GT SCH ×2 (08:22→20:27)
[2020-04-17] MEDS: levETIRAcetam 500 MG/5 ML LIQUID UDC GT SCH ×2 (08:22→20:27)
[2020-04-17] MEDS: ACIDOPHILUS/BULGARICUS CHEW TAB GT SCH ×2 (08:31→20:27)
[2020-04-17] MEDS: METOPROLOL TARTRATE 50 MG TABLET GT SCH ×2 (08:31→20:28)
[2020-04-17] MEDS: NUTRISOURCE FIBER 4 GM PACKET GT SCH (08:32)
[2020-04-17] MEDS: AMLODIPINE 10 MG TABLET GT SCH (08:32)
[2020-04-17] MEDS: CLINDAMYCIN TP SCH (08:33)
[2020-04-17] MEDS: ADAPALENE 0.1% TP SCH (08:33)
[2020-04-17] MEDS: COD LIVER OIL/ZINC OXIDE OINT 113 GM TUBE TP SCH ×2 (08:33→20:28)
[2020-04-17] MEDS: HYDROGEN PEROXIDE 3% 118 ML BOTTLE TOP SCH ×2 (09:11→21:34)
[2020-04-17] MEDS: BACLOFEN 10 MG TABLET GT SCH ×2 (09:11→20:27)
--- NOTE | 2020-04-17 18:00 | NUR ---
provided zoom for patient with mother.
[2020-04-17 19:19] VITALS: BP 121/54
[2020-04-17] MEDS: MELATONIN 5MG TABLET GT SCH (20:28)
[2020-04-17] MEDS: RIVAROXABAN 10 MG TABLET GT SCH (20:50)
--- NOTE | 2020-04-17 22:51 | NUR ---
Patient is afebrile, no regurgitation or vomiting noted, gt feeding tolerating well, no residuals noted, turned and repositioned, kept clean and comfortable.
[2020-04-18] MEDS: FAMOTIDINE 20 MG TABLET GT SCH ×2 (05:13→17:43)
[2020-04-18 07:53] VITALS: BP 104/64
[2020-04-18] MEDS: levETIRAcetam 500 MG/5 ML LIQUID UDC GT SCH ×2 (08:00→20:37)
[2020-04-18] MEDS: LACOSAMIDE 100 MG/10 ML UDC GT SCH ×2 (08:00→20:37)
[2020-04-18] MEDS: HYDROGEN PEROXIDE 3% 118 ML BOTTLE TOP SCH ×2 (08:07→21:16)
[2020-04-18] MEDS: METOPROLOL TARTRATE 50 MG TABLET GT SCH ×2 (09:00→20:37)
[2020-04-18] MEDS: ACIDOPHILUS/BULGARICUS CHEW TAB GT SCH ×2 (09:20→20:37)
[2020-04-18] MEDS: NUTRISOURCE FIBER 4 GM PACKET GT SCH (09:22)
[2020-04-18] MEDS: AMLODIPINE 10 MG TABLET GT SCH (09:22)
[2020-04-18] MEDS: COD LIVER OIL/ZINC OXIDE OINT 113 GM TUBE TP SCH ×2 (09:23→20:38)
[2020-04-18] MEDS: [UNRECOGNIZED DRUG - OTHER] TP SCH (09:23)
[2020-04-18] MEDS: CLINDAMYCIN TP SCH (09:23)
[2020-04-18] MEDS: BACLOFEN 10 MG TABLET GT SCH ×2 (09:23→20:37)
[2020-04-18] MEDS: JEVITY 1.2 1000 ML LIQUID GT PRN (16:45)
[2020-04-18 20:20] VITALS: BP 105/63
[2020-04-18] MEDS: MELATONIN 5MG TABLET GT SCH (20:38)
[2020-04-18] MEDS: RIVAROXABAN 10 MG TABLET GT SCH (20:57)
[2020-04-19] MEDS: FAMOTIDINE 20 MG TABLET GT SCH ×2 (05:42→17:30)
[2020-04-19 06:52] LABS: CREATININE 0.6 mg/dL (0.6-1.3); MAGNESIUM 2.1 mg/dL (1.8-2.4); PHOSPHOROUS 4.2 mg/dL (2.5-4.9); POTASSIUM 4.1 mmol/L (3.5-5.1)
[2020-04-19 06:57] LABS: BASOPHILS % (AUTO) 0.6 % (0.0-2.0); EOSINOPHILS # (AUTO) 0.4 K/uL (0.0-0.7); EOSINOPHILS % (AUTO) 5.1 % (0.0-7.0); HEMATOCRIT 36.8 % (31.2-41.9); HEMOGLOBIN 12.4 g/dL (10.9-14.3); LYMPHOCYTES # (AUTO) 1.7 K/uL (20.0-40.0); LYMPHOCYTES % (AUTO) 22.6 % (20.5-51.5); MEAN CORPUSCULAR HEMOGLOBIN 30.6 uug (24.7-32.8); MEAN CORPUSCULAR HGB CONC 34 g/dL (32.3-35.6); MEAN CORPUSCULAR VOLUME 90.7 fL (75.5-95.3); MONOCYTES # (AUTO) 0.6 K/uL (2.0-10.0); MONOCYTES % (AUTO) 7.8 % (0.0-11.0); NEUTROPHILS # (AUTO) 4.7 K/uL (1.8-8.9); NEUTROPHILS % (AUTO) 63.9 % (38.5-71.5); PLATELET COUNT (AUTO) 260 K/uL (179-408); RED BLOOD CELL COUNT(AUTO) 4.06 MIL/uL (3.63-4.92); WHITE BLOOD COUNT (AUTO) 7.4 K/uL (3.8-11.8)
[2020-04-19] MEDS: HYDROGEN PEROXIDE 3% 118 ML BOTTLE TOP SCH ×2 (07:30→19:47)
[2020-04-19 07:40] VITALS: BP 127/79
[2020-04-19] MEDS: ACIDOPHILUS/BULGARICUS CHEW TAB GT SCH ×2 (08:23→21:08)
[2020-04-19] MEDS: levETIRAcetam 500 MG/5 ML LIQUID UDC GT SCH ×2 (08:23→21:00)
[2020-04-19] MEDS: LACOSAMIDE 100 MG/10 ML UDC GT SCH ×2 (08:23→21:00)
[2020-04-19] MEDS: METOPROLOL TARTRATE 50 MG TABLET GT SCH ×2 (08:23→21:08)
[2020-04-19] MEDS: ADAPALENE 0.1% TP SCH (08:24)
[2020-04-19] MEDS: NUTRISOURCE FIBER 4 GM PACKET GT SCH (08:24)
[2020-04-19] MEDS: AMLODIPINE 10 MG TABLET GT SCH (08:24)
[2020-04-19] MEDS: COD LIVER OIL/ZINC OXIDE OINT 113 GM TUBE TP SCH ×2 (08:24→21:10)
[2020-04-19] MEDS: CLINDAMYCIN TP SCH (08:25)
[2020-04-19] MEDS: BACLOFEN 10 MG TABLET GT SCH ×2 (10:09→21:00)
--- NOTE | 2020-04-19 10:27 | NUR ---
This SW called Deputy Trish Jameson at [facility] Public Guardian's office, , in response to a voicemail message this SW received from Trish Jameson. This SW was not able to connect with Trish Jameson. This SW left Deputy Trish Jameson another voicemail message, asking her to call this SW back.
[2020-04-19] MEDS: JEVITY 1.2 1000 ML LIQUID GT PRN (12:12)
--- NOTE | 2020-04-19 17:48 | NUR ---
Video call provided with the pt. and family (mother). No concerns verbalized by family at this time. Will continue to monitor.
[2020-04-19 20:13] VITALS: BP 111/65
[2020-04-19] MEDS: MELATONIN 5MG TABLET GT SCH (21:10)
[2020-04-19] MEDS: RIVAROXABAN 10 MG TABLET GT SCH (21:14)
[2020-04-20] MEDS: FAMOTIDINE 20 MG TABLET GT SCH ×2 (05:30→17:33)
[2020-04-20 08:10] VITALS: BP 109/66
[2020-04-20] MEDS: METOPROLOL TARTRATE 50 MG TABLET GT SCH ×2 (08:25→20:14)
[2020-04-20] MEDS: LACOSAMIDE 100 MG/10 ML UDC GT SCH ×2 (08:25→20:12)
[2020-04-20] MEDS: levETIRAcetam 500 MG/5 ML LIQUID UDC GT SCH ×2 (08:25→20:12)
[2020-04-20] MEDS: ACIDOPHILUS/BULGARICUS CHEW TAB GT SCH ×2 (08:25→20:13)
[2020-04-20] MEDS: COD LIVER OIL/ZINC OXIDE OINT 113 GM TUBE TP SCH ×2 (08:26→20:16)
[2020-04-20] MEDS: CLINDAMYCIN TP SCH (08:26)
[2020-04-20] MEDS: AMLODIPINE 10 MG TABLET GT SCH (08:26)
[2020-04-20] MEDS: NUTRISOURCE FIBER 4 GM PACKET GT SCH (08:26)
[2020-04-20] MEDS: [UNRECOGNIZED DRUG - OTHER] TP SCH (08:27)
[2020-04-20] MEDS: HYDROGEN PEROXIDE 3% 118 ML BOTTLE TOP SCH ×2 (09:50→21:12)
[2020-04-20] MEDS: BACLOFEN 10 MG TABLET GT SCH ×2 (10:00→20:12)
[2020-04-20] MEDS: JEVITY 1.2 1000 ML LIQUID GT PRN (11:09)
--- NOTE | 2020-04-20 11:26 | NUR ---
10:40am: SAPNA received a call from [place] Jameson at [facility] Guardian's office, in response to the Referral for Probate Conservatorship Investigation form. Reason for referral discussed. Trish asked for copies of patient's medical records to be faxed to her at [phone], and SW to follow-up on this request.
--- NOTE | 2020-04-20 15:30 | NUR ---
SEEN AND EXAMINED BY DR Cheek,NO NEW ORDERS.
--- NOTE | 2020-04-20 18:06 | NUR ---
Video call provided with the pt. and family (mother). No complaints verbalized at this time. Pt stable with no respiratory distress at this time.
[2020-04-20 20:10] VITALS: BP 126/76
[2020-04-20] MEDS: RIVAROXABAN 10 MG TABLET GT SCH (20:15)
[2020-04-20] MEDS: MELATONIN 5MG TABLET GT SCH (20:16)
[2020-04-21] MEDS: FAMOTIDINE 20 MG TABLET GT SCH ×2 (05:41→18:19)
[2020-04-21 07:46] VITALS: BP 94/51
[2020-04-21] MEDS: LACOSAMIDE 100 MG/10 ML UDC GT SCH ×2 (08:00→20:21)
[2020-04-21] MEDS: levETIRAcetam 500 MG/5 ML LIQUID UDC GT SCH ×2 (08:00→20:20)
[2020-04-21] MEDS: HYDROGEN PEROXIDE 3% 118 ML BOTTLE TOP SCH ×2 (09:00→21:30)
[2020-04-21] MEDS: ACIDOPHILUS/BULGARICUS CHEW TAB GT SCH ×2 (09:09→20:21)
[2020-04-21] MEDS: METOPROLOL TARTRATE 50 MG TABLET GT SCH ×2 (09:15→20:22)
[2020-04-21] MEDS: BACLOFEN 10 MG TABLET GT SCH ×2 (09:16→20:21)
[2020-04-21] MEDS: COD LIVER OIL/ZINC OXIDE OINT 113 GM TUBE TP SCH ×2 (09:16→20:23)
[2020-04-21] MEDS: CLINDAMYCIN TP SCH (09:16)
[2020-04-21] MEDS: AMLODIPINE 10 MG TABLET GT SCH (09:16)
[2020-04-21] MEDS: NUTRISOURCE FIBER 4 GM PACKET GT SCH (09:16)
[2020-04-21] MEDS: ADAPALENE 0.1% TP SCH (09:16)
--- NOTE | 2020-04-21 11:10 | NUR ---
11:07am: SW received a [facility] [facility], , who stated that she will be doing an in-person visit tomorrow, 04/22/2020 between 1:30pm-2:30pm, in order to see the patient. SAPNA expressed agreement. YARI Liu informed.
--- NOTE | 2020-04-21 14:18 | NUR ---
SAPNA informed patient's mother Abdoul, via email, that the next team meeting for the patient is scheduled for 04/27/2020 at 11am. SAPNA asked Abdoul to let this SAPNA know if Abdoul would like to participate in the meeting by speaker phone.
[2020-04-21 20:13] VITALS: BP 111/65
[2020-04-21] MEDS: MELATONIN 5MG TABLET GT SCH (20:22)
[2020-04-21] MEDS: RIVAROXABAN 10 MG TABLET GT SCH (20:40)
[2020-04-22] MEDS: FAMOTIDINE 20 MG TABLET GT SCH ×2 (05:44→17:23)
[2020-04-22 08:03] VITALS: BP 94/39
[2020-04-22] MEDS: levETIRAcetam 500 MG/5 ML LIQUID UDC GT SCH ×2 (08:25→20:15)
[2020-04-22] MEDS: ACIDOPHILUS/BULGARICUS CHEW TAB GT SCH ×2 (08:25→20:22)
[2020-04-22] MEDS: LACOSAMIDE 100 MG/10 ML UDC GT SCH ×2 (08:25→20:16)
[2020-04-22] MEDS: NUTRISOURCE FIBER 4 GM PACKET GT SCH (08:26)
[2020-04-22] MEDS: AMLODIPINE 10 MG TABLET GT SCH (08:29)
[2020-04-22] MEDS: METOPROLOL TARTRATE 50 MG TABLET GT SCH ×2 (08:30→20:22)
[2020-04-22] MEDS: CLINDAMYCIN TP SCH (08:34)
[2020-04-22] MEDS: COD LIVER OIL/ZINC OXIDE OINT 113 GM TUBE TP SCH ×2 (08:34→20:24)
[2020-04-22] MEDS: [UNRECOGNIZED DRUG - OTHER] TP SCH (08:34)
[2020-04-22] MEDS: HYDROGEN PEROXIDE 3% 118 ML BOTTLE TOP SCH ×2 (09:00→21:20)
[2020-04-22] MEDS: BACLOFEN 10 MG TABLET GT SCH ×2 (09:10→20:16)
[2020-04-22] MEDS: JEVITY 1.2 1000 ML LIQUID GT PRN (11:42)
--- NOTE | 2020-04-22 14:31 | NUR ---
[place] Trish Jameson from [facility] Public Guardian's office visited the patient today. Trish completed her assessment, and patient's condition and needs were discussed with this SW and RN Brandon. Trish requested the following information from patient's medical records: H & P, recent physician's notes from joint special operations, pediatric dentist, and neurologist, nursing notes, SS notes, and list of medications. SAPNA provided this information to Trish. Trish Jameson, Senior [place] Public Conservatorship/Active Directory Engineer Office of [address], [address] [place] [address]
--- NOTE | 2020-04-22 14:47 | NUR ---
SAPNA called Ramírez, probate title investigator at [facility], , in response to a voicemail message Ramírez had left this SW. Ramírez wanted to schedule a time to visit the patient, through video conferencing. SAPNA scheduled a video conferencing appointment for 04/23 at 11am.
[2020-04-22] MEDS: RIVAROXABAN 10 MG TABLET GT SCH (20:23)
[2020-04-22] MEDS: MELATONIN 5MG TABLET GT SCH (20:23)
[2020-04-22 20:57] VITALS: BP 123/73
[2020-04-23] MEDS: FAMOTIDINE 20 MG TABLET GT SCH ×2 (05:45→17:19)
[2020-04-23] MEDS: levETIRAcetam 500 MG/5 ML LIQUID UDC GT SCH ×2 (08:00→20:02)
[2020-04-23] MEDS: LACOSAMIDE 100 MG/10 ML UDC GT SCH ×2 (08:00→20:04)
[2020-04-23 08:21] VITALS: BP 126/84
[2020-04-23] MEDS: ACIDOPHILUS/BULGARICUS CHEW TAB GT SCH ×2 (09:22→20:04)
[2020-04-23] MEDS: METOPROLOL TARTRATE 50 MG TABLET GT SCH ×2 (09:23→20:05)
[2020-04-23] MEDS: NUTRISOURCE FIBER 4 GM PACKET GT SCH (09:23)
[2020-04-23] MEDS: ADAPALENE 0.1% TP SCH (09:23)
[2020-04-23] MEDS: COD LIVER OIL/ZINC OXIDE OINT 113 GM TUBE TP SCH ×2 (09:23→20:06)
[2020-04-23] MEDS: AMLODIPINE 10 MG TABLET GT SCH (09:23)
[2020-04-23] MEDS: BACLOFEN 10 MG TABLET GT SCH ×2 (09:24→20:04)
[2020-04-23] MEDS: CLINDAMYCIN TP SCH (09:24)
[2020-04-23] MEDS: HYDROGEN PEROXIDE 3% 118 ML BOTTLE TOP SCH ×2 (10:20→21:25)
--- NOTE | 2020-04-23 10:20 | NUR ---
SEE RESPIRATORY PROGRESS NOTE.
--- NOTE | 2020-04-23 11:57 | NUR ---
11:00am: Ramírez, probate case investigator at [facility], , held a ZOOM video conferencing session with the patient today, to complete his investigative assessment for patient's conservatorship petition. Present in patient's room during this assessment was this SAPNA and HUYEN Mcrae. Ramírez completed his assessment, and his questions were addressed by this SAPNA and HUYEN Mcrae.
--- NOTE | 2020-04-23 17:00 | NUR ---
Provided video chat to pt. and her mother with no problem noted, pt.remains comfortable no signs of pain noted.
[2020-04-23] MEDS: MELATONIN 5MG TABLET GT SCH (20:05)
[2020-04-23] MEDS: RIVAROXABAN 10 MG TABLET GT SCH (20:13)
[2020-04-23 21:43] VITALS: BP 111/70
[2020-04-23 22:00] VITALS: BP 100/62
[2020-04-24] MEDS: JEVITY 1.2 1000 ML LIQUID GT PRN (05:00)
[2020-04-24] MEDS: FAMOTIDINE 20 MG TABLET GT SCH ×2 (05:36→18:31)
[2020-04-24 07:44] VITALS: BP 104/59
[2020-04-24] MEDS: COD LIVER OIL/ZINC OXIDE OINT 113 GM TUBE TP SCH ×2 (08:54→21:13)
[2020-04-24] MEDS: LACOSAMIDE 100 MG/10 ML UDC GT SCH ×2 (08:54→20:59)
[2020-04-24] MEDS: levETIRAcetam 500 MG/5 ML LIQUID UDC GT SCH ×2 (08:54→20:59)
[2020-04-24] MEDS: CLINDAMYCIN TP SCH (08:54)
[2020-04-24] MEDS: AMLODIPINE 10 MG TABLET GT SCH (09:00)
[2020-04-24] MEDS: METOPROLOL TARTRATE 50 MG TABLET GT SCH ×2 (09:00→21:12)
[2020-04-24] MEDS: ACIDOPHILUS/BULGARICUS CHEW TAB GT SCH ×2 (09:26→21:12)
[2020-04-24] MEDS: NUTRISOURCE FIBER 4 GM PACKET GT SCH (09:30)
[2020-04-24] MEDS: [UNRECOGNIZED DRUG - OTHER] TP SCH (09:30)
[2020-04-24] MEDS: HYDROGEN PEROXIDE 3% 118 ML BOTTLE TOP SCH ×2 (09:50→21:34)
[2020-04-24] MEDS: BACLOFEN 10 MG TABLET GT SCH ×2 (10:59→20:59)
--- NOTE | 2020-04-24 17:00 | NUR ---
video chat done with patient's mother.
[2020-04-24] MEDS: MELATONIN 5MG TABLET GT SCH (21:13)
[2020-04-24 21:17] VITALS: BP 119/65
[2020-04-24] MEDS: RIVAROXABAN 10 MG TABLET GT SCH (21:53)
[2020-04-25] MEDS: FAMOTIDINE 20 MG TABLET GT SCH ×2 (05:50→17:25)
[2020-04-25] MEDS: JEVITY 1.2 1000 ML LIQUID GT PRN (06:23)
[2020-04-25 07:45] VITALS: BP 100/48
[2020-04-25] MEDS: levETIRAcetam 500 MG/5 ML LIQUID UDC GT SCH ×2 (08:26→20:34)
[2020-04-25] MEDS: LACOSAMIDE 100 MG/10 ML UDC GT SCH ×2 (08:28→20:34)
[2020-04-25] MEDS: NUTRISOURCE FIBER 4 GM PACKET GT SCH (08:28)
[2020-04-25] MEDS: METOPROLOL TARTRATE 50 MG TABLET GT SCH ×2 (08:28→20:35)
[2020-04-25] MEDS: AMLODIPINE 10 MG TABLET GT SCH (08:28)
[2020-04-25] MEDS: ACIDOPHILUS/BULGARICUS CHEW TAB GT SCH ×2 (08:28→20:35)
[2020-04-25] MEDS: COD LIVER OIL/ZINC OXIDE OINT 113 GM TUBE TP SCH ×2 (08:29→20:36)
[2020-04-25] MEDS: CLINDAMYCIN TP SCH (08:29)
[2020-04-25] MEDS: ADAPALENE 0.1% TP SCH (08:29)
[2020-04-25] MEDS: HYDROGEN PEROXIDE 3% 118 ML BOTTLE TOP SCH ×2 (09:57→19:43)
[2020-04-25] MEDS: BACLOFEN 10 MG TABLET GT SCH ×2 (10:22→20:34)
--- NOTE | 2020-04-25 17:37 | NUR ---
ZOOM PROVIDED TO MOTHER.
[2020-04-25] MEDS: MELATONIN 5MG TABLET GT SCH (20:36)
[2020-04-25] MEDS: RIVAROXABAN 10 MG TABLET GT SCH (20:36)
[2020-04-25 22:29] VITALS: BP 126/60
[2020-04-26] MEDS: JEVITY 1.2 1000 ML LIQUID GT PRN (03:34)
[2020-04-26] MEDS: FAMOTIDINE 20 MG TABLET GT SCH ×2 (06:06→17:11)
[2020-04-26 07:41] VITALS: BP 121/68
[2020-04-26] MEDS: levETIRAcetam 500 MG/5 ML LIQUID UDC GT SCH ×2 (08:15→20:21)
[2020-04-26] MEDS: METOPROLOL TARTRATE 50 MG TABLET GT SCH ×2 (08:16→20:35)
[2020-04-26] MEDS: LACOSAMIDE 100 MG/10 ML UDC GT SCH ×2 (08:16→20:21)
[2020-04-26] MEDS: ACIDOPHILUS/BULGARICUS CHEW TAB GT SCH ×2 (08:16→20:21)
[2020-04-26] MEDS: NUTRISOURCE FIBER 4 GM PACKET GT SCH (08:17)
[2020-04-26] MEDS: AMLODIPINE 10 MG TABLET GT SCH (08:17)
[2020-04-26] MEDS: [UNRECOGNIZED DRUG - OTHER] TP SCH (08:18)
[2020-04-26] MEDS: COD LIVER OIL/ZINC OXIDE OINT 113 GM TUBE TP SCH ×2 (08:18→20:21)
[2020-04-26] MEDS: CLINDAMYCIN TP SCH (08:18)
[2020-04-26] MEDS: BACLOFEN 10 MG TABLET GT SCH ×2 (10:35→20:21)
[2020-04-26] MEDS: HYDROGEN PEROXIDE 3% 118 ML BOTTLE TOP SCH ×2 (12:52→21:55)
--- NOTE | 2020-04-26 18:18 | NUR ---
ZOOM PROVIDED TO MOTHER.
[2020-04-26] MEDS: MELATONIN 5MG TABLET GT SCH (20:21)
[2020-04-26] MEDS: RIVAROXABAN 10 MG TABLET GT SCH (20:22)
[2020-04-26 20:47] VITALS: BP 117/60
[2020-04-27] MEDS: JEVITY 1.2 1000 ML LIQUID GT PRN (04:30)
[2020-04-27] MEDS: FAMOTIDINE 20 MG TABLET GT SCH ×2 (05:56→17:55)
[2020-04-27 07:31] VITALS: BP 110/49
[2020-04-27] MEDS: LACOSAMIDE 100 MG/10 ML UDC GT SCH ×2 (08:01→20:28)
[2020-04-27] MEDS: levETIRAcetam 500 MG/5 ML LIQUID UDC GT SCH ×2 (08:01→20:27)
[2020-04-27] MEDS: ACIDOPHILUS/BULGARICUS CHEW TAB GT SCH ×2 (08:01→20:28)
[2020-04-27] MEDS: AMLODIPINE 10 MG TABLET GT SCH (08:02)
[2020-04-27] MEDS: METOPROLOL TARTRATE 50 MG TABLET GT SCH ×2 (08:02→20:28)
[2020-04-27] MEDS: CLINDAMYCIN TP SCH (08:03)
[2020-04-27] MEDS: ADAPALENE 0.1% TP SCH (08:03)
[2020-04-27] MEDS: COD LIVER OIL/ZINC OXIDE OINT 113 GM TUBE TP SCH ×2 (08:03→20:28)
[2020-04-27] MEDS: NUTRISOURCE FIBER 4 GM PACKET GT SCH (08:03)
[2020-04-27] MEDS: BACLOFEN 10 MG TABLET GT SCH ×2 (09:04→20:27)
[2020-04-27] MEDS: HYDROGEN PEROXIDE 3% 118 ML BOTTLE TOP SCH ×2 (09:05→21:55)
--- NOTE | 2020-04-27 09:19 | NUR ---
SAPNA received an email response today from patient's mother Abdoul stating that she would like to attend the IDT meeting scheduled for Friday 04/27. This SW asked Abdoul, via email, to be available between 11am-12pm to receive the teams call during the meeting.
--- NOTE | 2020-04-27 15:44 | NUR ---
INTERDISCIPLINARY PLAN OF CARE CONFERENCE was held today. Patient's mother Abdoul participated in the IDT meeting through speaker phone. Dr. Ramos and the Interdisciplinary Team reviewed the current plan of care in detail. Nursing reported on patient's medical condition. See nursing IDT conference notes. No major changes in medical condition were reported by nursing or by other disciplines. See all other disciplines IDT notes and physician's progress notes for additional details. Abdoul's questions were addressed by the IDT team and by Dr. Ramos. Rehab to conduct an assessment of patient's upper extremities, per Abdoul's request.
--- NOTE | 2020-04-27 16:08 | NUR ---
This SW and nursing director Nick Goldberg called patient's mother Abdoul, , per request from Abdoul to discuss her request for ophthalmology consultation. Abdoul was informed that patient was seen by Dr. Rogel (zyglo technician) on 02/19/20, and that his note stated "patient's family requests ophthalmology consult but not medically necessary at this time". Abdoul asked for an explanation, and this SW stated that will coordinate a phone call between Dr. Rogel and Abdoul upon Dr. Rogel's next visit to the unit, which is scheduled for tomorrow, 04/28. Abdoul expressed agreement.
[2020-04-27 20:21] VITALS: BP 105/55
[2020-04-27] MEDS: RIVAROXABAN 10 MG TABLET GT SCH (20:27)
[2020-04-27] MEDS: MELATONIN 5MG TABLET GT SCH (20:28)
--- NOTE | 2020-04-28 03:31 | NUR ---
mother,rosalva notified that covid negative.
[2020-04-28] MEDS: FAMOTIDINE 20 MG TABLET GT SCH ×2 (06:02→18:08)
[2020-04-28 07:38] VITALS: BP 124/62
[2020-04-28] MEDS: ACIDOPHILUS/BULGARICUS CHEW TAB GT SCH ×2 (08:14→21:02)
[2020-04-28] MEDS: LACOSAMIDE 100 MG/10 ML UDC GT SCH ×2 (08:14→20:22)
[2020-04-28] MEDS: METOPROLOL TARTRATE 50 MG TABLET GT SCH ×2 (08:15→20:23)
[2020-04-28] MEDS: AMLODIPINE 10 MG TABLET GT SCH (08:17)
[2020-04-28] MEDS: NUTRISOURCE FIBER 4 GM PACKET GT SCH (08:17)
[2020-04-28] MEDS: CLINDAMYCIN TP SCH (08:18)
[2020-04-28] MEDS: COD LIVER OIL/ZINC OXIDE OINT 113 GM TUBE TP SCH ×2 (08:18→20:23)
[2020-04-28] MEDS: [UNRECOGNIZED DRUG - OTHER] TP SCH (08:18)
[2020-04-28] MEDS: levETIRAcetam 500 MG/5 ML LIQUID UDC GT SCH ×2 (08:22→20:22)
[2020-04-28] MEDS: HYDROGEN PEROXIDE 3% 118 ML BOTTLE TOP SCH ×2 (09:00→21:12)
[2020-04-28] MEDS: BACLOFEN 10 MG TABLET GT SCH ×2 (09:58→20:22)
[2020-04-28 20:00] VITALS: BP 112/62
[2020-04-28] MEDS: MELATONIN 5MG TABLET GT SCH (20:23)
[2020-04-28] MEDS: RIVAROXABAN 10 MG TABLET GT SCH (21:00)
[2020-04-29] MEDS: FAMOTIDINE 20 MG TABLET GT SCH ×2 (05:46→18:10)
[2020-04-29] MEDS: JEVITY 1.2 1000 ML LIQUID GT PRN (05:47)
[2020-04-29] MEDS: HYDROGEN PEROXIDE 3% 118 ML BOTTLE TOP SCH ×2 (07:25→21:25)
[2020-04-29 07:38] VITALS: BP 108/62
[2020-04-29] MEDS: ACIDOPHILUS/BULGARICUS CHEW TAB GT SCH ×2 (08:39→20:38)
[2020-04-29] MEDS: LACOSAMIDE 100 MG/10 ML UDC GT SCH ×2 (08:39→20:38)
[2020-04-29] MEDS: METOPROLOL TARTRATE 50 MG TABLET GT SCH ×2 (08:39→20:38)
[2020-04-29] MEDS: levETIRAcetam 500 MG/5 ML LIQUID UDC GT SCH ×2 (08:39→20:38)
[2020-04-29] MEDS: AMLODIPINE 10 MG TABLET GT SCH (08:40)
[2020-04-29] MEDS: COD LIVER OIL/ZINC OXIDE OINT 113 GM TUBE TP SCH ×2 (08:43→21:20)
[2020-04-29] MEDS: NUTRISOURCE FIBER 4 GM PACKET GT SCH (08:43)
[2020-04-29] MEDS: ADAPALENE 0.1% TP SCH (08:43)
[2020-04-29] MEDS: CLINDAMYCIN TP SCH (08:43)
[2020-04-29] MEDS: BACLOFEN 10 MG TABLET GT SCH ×2 (09:06→20:38)
--- NOTE | 2020-04-29 19:10 | NUR ---
making walking rounds with am charge nurse, find pt red face and vomited small amount of gastric juice, suctioned and checked gas from stomach, no further vomiting episodes noted.
[2020-04-29 20:00] VITALS: BP 125/62
[2020-04-29] MEDS: MELATONIN 5MG TABLET GT SCH (20:39)
[2020-04-29] MEDS: RIVAROXABAN 10 MG TABLET GT SCH (21:20)
[2020-04-30] MEDS: FAMOTIDINE 20 MG TABLET GT SCH ×2 (05:20→18:35)
[2020-04-30] MEDS: JEVITY 1.2 1000 ML LIQUID GT PRN (05:21)
[2020-04-30 07:39] VITALS: BP 111/57
[2020-04-30] MEDS: LACOSAMIDE 100 MG/10 ML UDC GT SCH ×2 (07:43→20:38)
[2020-04-30] MEDS: levETIRAcetam 500 MG/5 ML LIQUID UDC GT SCH ×2 (07:43→20:38)
[2020-04-30] MEDS: METOPROLOL TARTRATE 50 MG TABLET GT SCH ×2 (08:37→20:39)
[2020-04-30] MEDS: AMLODIPINE 10 MG TABLET GT SCH (08:37)
[2020-04-30] MEDS: COD LIVER OIL/ZINC OXIDE OINT 113 GM TUBE TP SCH ×2 (08:37→20:39)
[2020-04-30] MEDS: ACIDOPHILUS/BULGARICUS CHEW TAB GT SCH ×2 (08:37→20:38)
[2020-04-30] MEDS: NUTRISOURCE FIBER 4 GM PACKET GT SCH (08:37)
[2020-04-30] MEDS: CLINDAMYCIN TP SCH (08:38)
[2020-04-30] MEDS: [UNRECOGNIZED DRUG - OTHER] TP SCH (08:38)
[2020-04-30] MEDS: HYDROGEN PEROXIDE 3% 118 ML BOTTLE TOP SCH ×2 (10:20→21:55)
--- NOTE | 2020-04-30 10:20 | NUR ---
SEE RESPIRATORY PROGRESS NOTE.
[2020-04-30] MEDS: BACLOFEN 10 MG TABLET GT SCH ×2 (10:25→20:38)
--- NOTE | 2020-04-30 11:00 | NUR ---
SEEN AND EXAMINED BY DR. NANCY Graham AND WITH NNO.
[2020-04-30 14:04] VITALS: BP 115/60
[2020-04-30 15:39] LABS: BASOPHILS % (AUTO) 0.5 % (0.0-2.0); EOSINOPHILS # (AUTO) 0.3 K/uL (0.0-0.7); EOSINOPHILS % (AUTO) 3.9 % (0.0-7.0); HEMATOCRIT 38.6 % (31.2-41.9); HEMOGLOBIN 12.8 g/dL (10.9-14.3); LYMPHOCYTES # (AUTO) 1.7 K/uL (20.0-40.0); LYMPHOCYTES % (AUTO) 21.3 % (20.5-51.5); MEAN CORPUSCULAR HEMOGLOBIN 30.1 uug (24.7-32.8); MEAN CORPUSCULAR HGB CONC 33 g/dL (32.3-35.6); MEAN CORPUSCULAR VOLUME 90.9 fL (75.5-95.3); MONOCYTES # (AUTO) 0.6 K/uL (2.0-10.0); MONOCYTES % (AUTO) 7.1 % (0.0-11.0); NEUTROPHILS # (AUTO) 5.3 K/uL (1.8-8.9); NEUTROPHILS % (AUTO) 67.2 % (38.5-71.5); PLATELET COUNT (AUTO) 291 K/uL (179-408); RED BLOOD CELL COUNT(AUTO) 4.25 MIL/uL (3.63-4.92); WHITE BLOOD COUNT (AUTO) 7.9 K/uL (3.8-11.8)
[2020-04-30 15:45] LABS: CARBON DIOXIDE 24 mmol/L (21-32); CHLORIDE 107 mmol/L (98-107); CREATININE 0.5 mg/dL (0.6-1.3); GLUCOSE 100 mg/dL (74-106); MAGNESIUM 2.2 mg/dL (1.8-2.4); PHOSPHOROUS 3.8 mg/dL (2.5-4.9); POTASSIUM 4.4 mmol/L (3.5-5.1); UREA NITROGEN, BLOOD 11 mg/dL (7-18)
--- NOTE | 2020-04-30 17:00 | NUR ---
Vdeozoom with pt's mother for a long praying time.
--- NOTE | 2020-04-30 17:09 | NUR ---
new order carried out for rna from Dr. jamari Grahamper P.T recommendation(SUSI)
[2020-04-30 20:00] VITALS: BP 123/60
[2020-04-30] MEDS: MELATONIN 5MG TABLET GT SCH (20:39)
[2020-04-30] MEDS: RIVAROXABAN 10 MG TABLET GT SCH (21:00)
--- NOTE | 2020-05-01 03:00 | NUR ---
For COVID-19 testing as per [facility] requirement.
[2020-05-01] MEDS: JEVITY 1.2 1000 ML LIQUID GT PRN (03:55)
[2020-05-01] MEDS: FAMOTIDINE 20 MG TABLET GT SCH ×2 (05:47→17:53)
[2020-05-01 07:35] VITALS: BP 109/65
[2020-05-01] MEDS: LACOSAMIDE 100 MG/10 ML UDC GT SCH ×2 (08:45→20:20)
[2020-05-01] MEDS: levETIRAcetam 500 MG/5 ML LIQUID UDC GT SCH ×2 (08:45→20:20)
[2020-05-01] MEDS: ACIDOPHILUS/BULGARICUS CHEW TAB GT SCH ×2 (08:45→20:20)
[2020-05-01] MEDS: METOPROLOL TARTRATE 50 MG TABLET GT SCH ×2 (08:46→20:21)
[2020-05-01] MEDS: AMLODIPINE 10 MG TABLET GT SCH (08:46)
[2020-05-01] MEDS: NUTRISOURCE FIBER 4 GM PACKET GT SCH (08:47)
[2020-05-01] MEDS: COD LIVER OIL/ZINC OXIDE OINT 113 GM TUBE TP SCH ×2 (08:47→20:21)
[2020-05-01] MEDS: ADAPALENE 0.1% TP SCH (08:48)
[2020-05-01] MEDS: CLINDAMYCIN TP SCH (08:48)
[2020-05-01] MEDS: HYDROGEN PEROXIDE 3% 118 ML BOTTLE TOP SCH ×2 (08:59→22:30)
--- NOTE | 2020-05-01 09:00 | NUR ---
PT'S MOTHER AWARE AND IN AGREEMENT FOR COVID 19 TEST TODAY.
[2020-05-01] MEDS: BACLOFEN 10 MG TABLET GT SCH ×2 (10:49→20:20)
--- NOTE | 2020-05-01 11:32 | NUR ---
SEEN AND EXAMINED BY DR. FORREST AND WITH NNO.
[2020-05-01] MEDS: MELATONIN 5MG TABLET GT SCH (20:21)
[2020-05-01] MEDS: RIVAROXABAN 10 MG TABLET GT SCH (20:22)
[2020-05-01 20:33] VITALS: BP 119/80
--- NOTE | 2020-05-01 22:30 | NUR ---
SEE RESPIRATORY PROGRESS NOTE.
[2020-05-02] MEDS: JEVITY 1.2 1000 ML LIQUID GT PRN (01:39)
[2020-05-02] MEDS: FAMOTIDINE 20 MG TABLET GT SCH ×2 (05:20→18:37)
[2020-05-02 07:35] VITALS: BP 98/56
[2020-05-02] MEDS: levETIRAcetam 500 MG/5 ML LIQUID UDC GT SCH ×2 (08:00→20:29)
[2020-05-02] MEDS: LACOSAMIDE 100 MG/10 ML UDC GT SCH ×2 (08:00→20:29)
[2020-05-02] MEDS: HYDROGEN PEROXIDE 3% 118 ML BOTTLE TOP SCH ×2 (08:41→21:43)
[2020-05-02] MEDS: METOPROLOL TARTRATE 50 MG TABLET GT SCH ×2 (09:00→21:20)
[2020-05-02] MEDS: AMLODIPINE 10 MG TABLET GT SCH (09:00)
[2020-05-02] MEDS: ACIDOPHILUS/BULGARICUS CHEW TAB GT SCH ×2 (09:02→21:19)
[2020-05-02] MEDS: COD LIVER OIL/ZINC OXIDE OINT 113 GM TUBE TP SCH ×2 (09:13→21:20)
[2020-05-02] MEDS: [UNRECOGNIZED DRUG - OTHER] TP SCH (09:13)
[2020-05-02] MEDS: BACLOFEN 10 MG TABLET GT SCH ×2 (09:13→20:29)
[2020-05-02] MEDS: NUTRISOURCE FIBER 4 GM PACKET GT SCH (09:13)
[2020-05-02] MEDS: CLINDAMYCIN TP SCH (09:13)
--- NOTE | 2020-05-02 18:28 | NUR ---
PT'S MOTHER WAS NOTIFIED RE: NEGATIVE COVID 19 TEST RESULT.
[2020-05-02 20:48] VITALS: BP 124/56
[2020-05-02] MEDS: RIVAROXABAN 10 MG TABLET GT SCH (21:00)
[2020-05-02] MEDS: MELATONIN 5MG TABLET GT SCH (21:20)
[2020-05-03] MEDS: JEVITY 1.2 1000 ML LIQUID GT PRN (02:48)
[2020-05-03] MEDS: FAMOTIDINE 20 MG TABLET GT SCH ×2 (06:04→17:54)
[2020-05-03 07:42] VITALS: BP 98/52
[2020-05-03] MEDS: levETIRAcetam 500 MG/5 ML LIQUID UDC GT SCH ×2 (08:30→20:43)
[2020-05-03] MEDS: LACOSAMIDE 100 MG/10 ML UDC GT SCH ×2 (08:30→20:43)
[2020-05-03] MEDS: AMLODIPINE 10 MG TABLET GT SCH (09:00)
[2020-05-03] MEDS: METOPROLOL TARTRATE 50 MG TABLET GT SCH ×2 (09:00→21:00)
[2020-05-03] MEDS: HYDROGEN PEROXIDE 3% 118 ML BOTTLE TOP SCH ×2 (09:00→21:38)
[2020-05-03] MEDS: ACIDOPHILUS/BULGARICUS CHEW TAB GT SCH ×2 (09:25→21:39)
[2020-05-03] MEDS: NUTRISOURCE FIBER 4 GM PACKET GT SCH (09:26)
[2020-05-03] MEDS: COD LIVER OIL/ZINC OXIDE OINT 113 GM TUBE TP SCH ×2 (09:26→21:38)
[2020-05-03] MEDS: CLINDAMYCIN TP SCH (09:28)
[2020-05-03] MEDS: ADAPALENE 0.1% TP SCH (09:28)
[2020-05-03] MEDS: BACLOFEN 10 MG TABLET GT SCH ×2 (09:28→20:43)
--- NOTE | 2020-05-03 13:44 | NUR ---
SEEN BY QUAN Sharma AND WITH NNO.
[2020-05-03 20:31] VITALS: BP 106/63
[2020-05-03] MEDS: RIVAROXABAN 10 MG TABLET GT SCH (21:00)
[2020-05-03] MEDS: MELATONIN 5MG TABLET GT SCH (21:36)
[2020-05-04] MEDS: FAMOTIDINE 20 MG TABLET GT SCH ×2 (06:43→17:37)
[2020-05-04 07:33] VITALS: BP 102/55
[2020-05-04] MEDS: levETIRAcetam 500 MG/5 ML LIQUID UDC GT SCH ×2 (08:23→20:03)
[2020-05-04] MEDS: ACIDOPHILUS/BULGARICUS CHEW TAB GT SCH ×2 (08:27→20:03)
[2020-05-04] MEDS: LACOSAMIDE 100 MG/10 ML UDC GT SCH ×2 (08:27→20:03)
[2020-05-04] MEDS: [UNRECOGNIZED DRUG - OTHER] TP SCH (09:00)
[2020-05-04] MEDS: AMLODIPINE 10 MG TABLET GT SCH (09:00)
[2020-05-04] MEDS: COD LIVER OIL/ZINC OXIDE OINT 113 GM TUBE TP SCH ×2 (09:00→20:06)
[2020-05-04] MEDS: METOPROLOL TARTRATE 50 MG TABLET GT SCH ×2 (09:00→20:04)
[2020-05-04] MEDS: CLINDAMYCIN TP SCH (09:00)
[2020-05-04] MEDS: NUTRISOURCE FIBER 4 GM PACKET GT SCH (09:00)
[2020-05-04] MEDS: HYDROGEN PEROXIDE 3% 118 ML BOTTLE TOP SCH ×2 (09:37→21:17)
[2020-05-04] MEDS: BACLOFEN 10 MG TABLET GT SCH ×2 (10:01→20:03)
[2020-05-04 14:00] VITALS: BP 108/60
--- NOTE | 2020-05-04 14:00 | NUR ---
Seen and examined by Dr kauffman ,no new orders.
--- NOTE | 2020-05-04 14:32 | NUR ---
Seen and examined by Priti Do,no new orders.
--- NOTE | 2020-05-04 15:06 | NUR ---
SAPNA met with Dr. Kiran today to complete a Capacity Declaration form. SAPNA faxed the completed form to Trish Jameson, [place] Public Conservator/Physician Recruiter at the Office of the Public Guardian. / .
--- NOTE | 2020-05-04 16:51 | NUR ---
SAPNA received a call from Trish Jameson, [place] Public Conservator/Spring Tester at the Office of the Public Guardian, . Trish requested additional notes to be faxed to her. SAPNA faxed the requested notes to Trish at .
[2020-05-04] MEDS: MELATONIN 5MG TABLET GT SCH (20:05)
[2020-05-04] MEDS: RIVAROXABAN 10 MG TABLET GT SCH (20:06)
[2020-05-04 20:31] VITALS: BP 126/76
[2020-05-05] MEDS: FAMOTIDINE 20 MG TABLET GT SCH ×2 (05:49→18:00)
[2020-05-05] MEDS: HYDROGEN PEROXIDE 3% 118 ML BOTTLE TOP SCH ×2 (07:56→21:42)
[2020-05-05] MEDS: levETIRAcetam 500 MG/5 ML LIQUID UDC GT SCH ×2 (08:00→20:19)
[2020-05-05] MEDS: LACOSAMIDE 100 MG/10 ML UDC GT SCH ×2 (08:00→20:19)
[2020-05-05 08:54] VITALS: BP 122/77
[2020-05-05] MEDS: METOPROLOL TARTRATE 50 MG TABLET GT SCH ×2 (09:00→21:00)
[2020-05-05] MEDS: AMLODIPINE 10 MG TABLET GT SCH (09:00)
[2020-05-05] MEDS: ADAPALENE 0.1% TP SCH (09:00)
[2020-05-05] MEDS: CLINDAMYCIN TP SCH (09:00)
[2020-05-05] MEDS: ACIDOPHILUS/BULGARICUS CHEW TAB GT SCH ×2 (09:04→21:53)
[2020-05-05] MEDS: NUTRISOURCE FIBER 4 GM PACKET GT SCH (09:07)
[2020-05-05] MEDS: COD LIVER OIL/ZINC OXIDE OINT 113 GM TUBE TP SCH ×2 (09:07→21:55)
[2020-05-05] MEDS: BACLOFEN 10 MG TABLET GT SCH ×2 (09:07→20:19)
[2020-05-05] MEDS: ONDANSETRON HCL 4 MG/5 ML UDC ORAL SOL GT PRN (16:42)
[2020-05-05 16:45] VITALS: BP 118/72
--- NOTE | 2020-05-05 16:45 | NUR ---
Meanwhile TANKMAN was making repositioning rounds noted pt with discomfort and called staff nurse. Found pt with nausea and started vomiting small amount gt feeding milk like in color. Checked for gastric residuals, no gastric residuals noted. Checked for impaction. Last BM was on 05/04/20 small. Pt. started on her monthly menses, kept clean dry. No, impaction noted. Nurse in charged aware and at bedside. b/p 118/72 -89- Tem 98.0. Frequent rounds practiced. Mother aware of pt condition with N/V.
--- NOTE | 2020-05-05 17:30 | NUR ---
Video chat was done with mother, ended session due to pt, vomiting small amt of gt feeding milk in color. HOB NO S/S of aspiration. Charge nurse aware. Continue to make frequents rounds. 1800 Continue Video chat with mother. No episodes of N/V at this time. 1830 VS 97.8 80-18-123/72- 99%
[2020-05-05 18:00] VITALS: BP 123/72
[2020-05-05 20:06] VITALS: BP 109/57
[2020-05-05] MEDS: RIVAROXABAN 10 MG TABLET GT SCH (21:54)
[2020-05-05] MEDS: MELATONIN 5MG TABLET GT SCH (21:54)
--- NOTE | 2020-05-06 02:55 | NUR ---
Patient is asleep, no episodes of vomiting at this time, still having her menstrual period, kept patient clean and comfortable.
[2020-05-06] MEDS: FAMOTIDINE 20 MG TABLET GT SCH ×2 (05:15→17:10)
[2020-05-06] MEDS: HYDROGEN PEROXIDE 3% 118 ML BOTTLE TOP SCH ×2 (07:28→21:28)
[2020-05-06 07:29] VITALS: BP 106/58
[2020-05-06] MEDS: LACOSAMIDE 100 MG/10 ML UDC GT SCH ×2 (08:00→20:11)
[2020-05-06] MEDS: levETIRAcetam 500 MG/5 ML LIQUID UDC GT SCH ×2 (08:00→20:11)
[2020-05-06] MEDS: CLINDAMYCIN TP SCH (09:00)
[2020-05-06] MEDS: AMLODIPINE 10 MG TABLET GT SCH (09:00)
[2020-05-06] MEDS: METOPROLOL TARTRATE 50 MG TABLET GT SCH ×2 (09:00→21:06)
[2020-05-06] MEDS: [UNRECOGNIZED DRUG - OTHER] TP SCH (09:00)
[2020-05-06] MEDS: ACIDOPHILUS/BULGARICUS CHEW TAB GT SCH ×2 (09:07→21:05)
[2020-05-06] MEDS: COD LIVER OIL/ZINC OXIDE OINT 113 GM TUBE TP SCH ×2 (09:09→21:06)
[2020-05-06] MEDS: NUTRISOURCE FIBER 4 GM PACKET GT SCH (09:09)
[2020-05-06] MEDS: BACLOFEN 10 MG TABLET GT SCH ×2 (09:42→20:11)
--- NOTE | 2020-05-06 14:43 | NUR ---
SAPNA called Trish Jameson, [place] Public Conservator/Animal Anatomist at the Office of the Public Guardian, , in response to an email this SW received from Trish which contained several additional follow-up questions. CARLOS Cesar was also present during this call attempt. Trish was not available, and therefore this SW left Trish a voicemail message, asking Trish to call this SW back.
[2020-05-06] MEDS: JEVITY 1.2 1000 ML LIQUID GT PRN (16:05)
--- NOTE | 2020-05-06 17:05 | NUR ---
During video chat with pt's mother (Abdoul) pt vomited x1 ended session. HOB elevated suctioned noted small amount of gt feeding in color milk with ,60 mls of gastric residuals.PRN Zofran 4mg/gt given for n/v.Charge nurse aware. Continue monitoring closely.
[2020-05-06] MEDS: ONDANSETRON HCL 4 MG/5 ML UDC ORAL SOL GT PRN (17:10)
--- NOTE | 2020-05-06 18:35 | NUR ---
Resumed Video chat with pt's mother. No s/s of n/v pt. comfortable at this time. 1840 HOB elevated with no gastric residuals. VS 97.6-122/66-85-18-98% feeding well tolerated.
[2020-05-06 19:28] VITALS: BP 131/65
[2020-05-06] MEDS: RIVAROXABAN 10 MG TABLET GT SCH (20:11)
[2020-05-06] MEDS: MELATONIN 5MG TABLET GT SCH (21:06)
--- NOTE | 2020-05-07 05:07 | NUR ---
Patient is sleeping, no episodes of vomiting or regurgitation noted , HOB elevated, Gt feeding tolerating well, no gt residuals noted, no signs of any distress noted, kept clean and comfortable.
[2020-05-07] MEDS: FAMOTIDINE 20 MG TABLET GT SCH ×2 (05:33→17:24)
[2020-05-07 07:37] VITALS: BP 113/53
[2020-05-07] MEDS: levETIRAcetam 500 MG/5 ML LIQUID UDC GT SCH ×2 (08:02→20:14)
[2020-05-07] MEDS: LACOSAMIDE 100 MG/10 ML UDC GT SCH ×2 (08:02→20:14)
[2020-05-07] MEDS: ACIDOPHILUS/BULGARICUS CHEW TAB GT SCH ×2 (08:24→20:14)
[2020-05-07] MEDS: METOPROLOL TARTRATE 50 MG TABLET GT SCH ×2 (08:25→20:15)
[2020-05-07] MEDS: AMLODIPINE 10 MG TABLET GT SCH (08:25)
[2020-05-07] MEDS: COD LIVER OIL/ZINC OXIDE OINT 113 GM TUBE TP SCH ×2 (08:25→20:15)
[2020-05-07] MEDS: NUTRISOURCE FIBER 4 GM PACKET GT SCH (08:25)
[2020-05-07] MEDS: HYDROGEN PEROXIDE 3% 118 ML BOTTLE TOP SCH ×2 (09:33→21:40)
[2020-05-07] MEDS: ADAPALENE 0.1% TP SCH (09:43)
[2020-05-07] MEDS: BACLOFEN 10 MG TABLET GT SCH ×2 (09:43→20:14)
[2020-05-07] MEDS: CLINDAMYCIN TP SCH (09:43)
--- NOTE | 2020-05-07 14:25 | NUR ---
9:59am: This SW received a call from Trish Jameson, [place] Public Conservator/Seamer Elastic Band at the Office of the Public Guardian, , in response to the voicemail message this SW had left Trish yesterday. channel marketing program manager Nick Goldberg was also present during this phone call. Trish had some additional questions pertaining to patient's care and services provided. This SAPNA and Nick provided the necessary information to Trish, and Trish expressed understanding and thanked this SW and Nick for the information.
[2020-05-07 19:51] VITALS: BP 102/63
[2020-05-07] MEDS: MELATONIN 5MG TABLET GT SCH (20:15)
[2020-05-07] MEDS: RIVAROXABAN 10 MG TABLET GT SCH (20:33)
[2020-05-08] MEDS: FAMOTIDINE 20 MG TABLET GT SCH ×2 (05:27→17:00)
[2020-05-08] MEDS: JEVITY 1.2 1000 ML LIQUID GT PRN (05:27)
[2020-05-08 08:20] VITALS: BP 100/56
[2020-05-08] MEDS: AMLODIPINE 10 MG TABLET GT SCH (08:27)
[2020-05-08] MEDS: METOPROLOL TARTRATE 50 MG TABLET GT SCH ×2 (08:27→20:23)
[2020-05-08] MEDS: ACIDOPHILUS/BULGARICUS CHEW TAB GT SCH ×2 (08:33→20:22)
[2020-05-08] MEDS: levETIRAcetam 500 MG/5 ML LIQUID UDC GT SCH ×2 (08:33→20:22)
[2020-05-08] MEDS: LACOSAMIDE 100 MG/10 ML UDC GT SCH ×2 (08:33→20:22)
[2020-05-08] MEDS: NUTRISOURCE FIBER 4 GM PACKET GT SCH (08:35)
[2020-05-08] MEDS: COD LIVER OIL/ZINC OXIDE OINT 113 GM TUBE TP SCH ×2 (08:35→20:24)
[2020-05-08] MEDS: CLINDAMYCIN TP SCH (08:35)
[2020-05-08] MEDS: [UNRECOGNIZED DRUG - OTHER] TP SCH (09:09)
[2020-05-08] MEDS: HYDROGEN PEROXIDE 3% 118 ML BOTTLE TOP SCH ×2 (10:20→19:21)
--- NOTE | 2020-05-08 10:20 | NUR ---
SEE RESPIRATORY PROGRESS NOTE.
[2020-05-08] MEDS: BACLOFEN 10 MG TABLET GT SCH ×2 (10:55→20:22)
--- NOTE | 2020-05-08 18:00 | NUR ---
PATIENT IN BED, AWAKE, NO N/V NOTED THROUGHOUT THE DAY, HOB ELEVATED AT ALL TIMES, V/S STABLE. WILL CONTINUE MONITORING PT.
--- NOTE | 2020-05-08 18:48 | NUR ---
No nausea or vomiting during this shift,on close observation.Hob elevated to prevent aspiration.
[2020-05-08 19:45] VITALS: BP 96/63
[2020-05-08] MEDS: RIVAROXABAN 10 MG TABLET GT SCH (20:23)
[2020-05-08] MEDS: MELATONIN 5MG TABLET GT SCH (21:00)
[2020-05-09] MEDS: JEVITY 1.2 1000 ML LIQUID GT PRN ×2 (01:25→05:05)
[2020-05-09] MEDS: FAMOTIDINE 20 MG TABLET GT SCH ×2 (05:05→17:18)
[2020-05-09 07:33] VITALS: BP 102/45
[2020-05-09] MEDS: levETIRAcetam 500 MG/5 ML LIQUID UDC GT SCH ×2 (08:45→20:11)
[2020-05-09] MEDS: ACIDOPHILUS/BULGARICUS CHEW TAB GT SCH ×2 (08:45→20:11)
[2020-05-09] MEDS: LACOSAMIDE 100 MG/10 ML UDC GT SCH ×2 (08:45→20:11)
[2020-05-09] MEDS: ADAPALENE 0.1% TP SCH (08:46)
[2020-05-09] MEDS: AMLODIPINE 10 MG TABLET GT SCH (08:46)
[2020-05-09] MEDS: METOPROLOL TARTRATE 50 MG TABLET GT SCH ×2 (08:46→21:34)
[2020-05-09] MEDS: COD LIVER OIL/ZINC OXIDE OINT 113 GM TUBE TP SCH ×2 (08:46→21:34)
[2020-05-09] MEDS: NUTRISOURCE FIBER 4 GM PACKET GT SCH (08:46)
[2020-05-09] MEDS: CLINDAMYCIN TP SCH (08:46)
[2020-05-09] MEDS: HYDROGEN PEROXIDE 3% 118 ML BOTTLE TOP SCH ×2 (09:00→21:25)
[2020-05-09] MEDS: BACLOFEN 10 MG TABLET GT SCH ×2 (09:10→20:11)
--- NOTE | 2020-05-09 18:37 | NUR ---
No nausea o vomiting noted during this shift,on close observation.
--- NOTE | 2020-05-09 18:57 | NUR ---
Pt's Mother Abdoul notified Covid 19 negative.
[2020-05-09] MEDS: RIVAROXABAN 10 MG TABLET GT SCH (21:34)
[2020-05-09] MEDS: MELATONIN 5MG TABLET GT SCH (21:34)
[2020-05-09 23:37] VITALS: BP 121/73
[2020-05-10] MEDS: JEVITY 1.2 1000 ML LIQUID GT PRN (05:23)
[2020-05-10] MEDS: FAMOTIDINE 20 MG TABLET GT SCH ×2 (05:23→17:06)
[2020-05-10 07:32] VITALS: BP 108/51
[2020-05-10] MEDS: LACOSAMIDE 100 MG/10 ML UDC GT SCH ×2 (08:49→20:52)
[2020-05-10] MEDS: METOPROLOL TARTRATE 50 MG TABLET GT SCH ×2 (08:49→20:52)
[2020-05-10] MEDS: levETIRAcetam 500 MG/5 ML LIQUID UDC GT SCH ×2 (08:49→20:52)
[2020-05-10] MEDS: AMLODIPINE 10 MG TABLET GT SCH (08:49)
[2020-05-10] MEDS: ACIDOPHILUS/BULGARICUS CHEW TAB GT SCH ×2 (08:49→20:52)
[2020-05-10] MEDS: NUTRISOURCE FIBER 4 GM PACKET GT SCH (08:50)
[2020-05-10] MEDS: COD LIVER OIL/ZINC OXIDE OINT 113 GM TUBE TP SCH ×2 (08:50→20:54)
[2020-05-10] MEDS: [UNRECOGNIZED DRUG - OTHER] TP SCH (08:50)
[2020-05-10] MEDS: CLINDAMYCIN TP SCH (08:50)
[2020-05-10] MEDS: HYDROGEN PEROXIDE 3% 118 ML BOTTLE TOP SCH ×2 (09:14→21:55)
[2020-05-10] MEDS: BACLOFEN 10 MG TABLET GT SCH ×2 (09:27→20:52)
[2020-05-10 20:00] VITALS: BP 106/61
[2020-05-10] MEDS: MELATONIN 5MG TABLET GT SCH (20:53)
[2020-05-10] MEDS: RIVAROXABAN 10 MG TABLET GT SCH (20:56)
[2020-05-11] MEDS: FAMOTIDINE 20 MG TABLET GT SCH ×2 (05:45→17:09)
[2020-05-11] MEDS: levETIRAcetam 500 MG/5 ML LIQUID UDC GT SCH ×2 (08:17→20:08)
[2020-05-11] MEDS: LACOSAMIDE 100 MG/10 ML UDC GT SCH ×2 (08:17→20:09)
[2020-05-11] MEDS: ACIDOPHILUS/BULGARICUS CHEW TAB GT SCH ×2 (08:17→20:46)
[2020-05-11] MEDS: METOPROLOL TARTRATE 50 MG TABLET GT SCH ×2 (08:20→20:47)
[2020-05-11] MEDS: NUTRISOURCE FIBER 4 GM PACKET GT SCH (08:21)
[2020-05-11] MEDS: AMLODIPINE 10 MG TABLET GT SCH (08:21)
[2020-05-11] MEDS: COD LIVER OIL/ZINC OXIDE OINT 113 GM TUBE TP SCH ×2 (08:22→20:48)
[2020-05-11] MEDS: ADAPALENE 0.1% TP SCH (08:22)
[2020-05-11] MEDS: CLINDAMYCIN TP SCH (08:22)
[2020-05-11 08:24] VITALS: BP 114/61
[2020-05-11] MEDS: HYDROGEN PEROXIDE 3% 118 ML BOTTLE TOP SCH ×2 (09:00→21:00)
[2020-05-11] MEDS: BACLOFEN 10 MG TABLET GT SCH ×2 (10:00→20:08)
--- NOTE | 2020-05-11 13:00 | NUR ---
Seen and examined by Priti Do,no new orders noted.
[2020-05-11 20:00] VITALS: BP 119/62
[2020-05-11] MEDS: MELATONIN 5MG TABLET GT SCH (20:48)
[2020-05-11] MEDS: RIVAROXABAN 10 MG TABLET GT SCH (20:48)
[2020-05-12] MEDS: FAMOTIDINE 20 MG TABLET GT SCH ×2 (05:58→18:15)
[2020-05-12 07:38] VITALS: BP 108/60
[2020-05-12] MEDS: levETIRAcetam 500 MG/5 ML LIQUID UDC GT SCH ×2 (08:50→20:09)
[2020-05-12] MEDS: LACOSAMIDE 100 MG/10 ML UDC GT SCH ×2 (08:50→20:11)
[2020-05-12] MEDS: ACIDOPHILUS/BULGARICUS CHEW TAB GT SCH ×2 (08:50→20:38)
[2020-05-12] MEDS: METOPROLOL TARTRATE 50 MG TABLET GT SCH ×2 (08:51→20:39)
[2020-05-12] MEDS: AMLODIPINE 10 MG TABLET GT SCH (08:51)
[2020-05-12] MEDS: NUTRISOURCE FIBER 4 GM PACKET GT SCH (08:52)
[2020-05-12] MEDS: COD LIVER OIL/ZINC OXIDE OINT 113 GM TUBE TP SCH ×2 (08:52→20:44)
[2020-05-12] MEDS: CLINDAMYCIN TP SCH (08:52)
[2020-05-12] MEDS: [UNRECOGNIZED DRUG - OTHER] TP SCH (08:52)
[2020-05-12] MEDS: BACLOFEN 10 MG TABLET GT SCH ×2 (09:05→20:09)
[2020-05-12] MEDS: HYDROGEN PEROXIDE 3% 118 ML BOTTLE TOP SCH ×2 (09:37→21:37)
[2020-05-12 20:00] VITALS: BP 121/70
[2020-05-12] MEDS: MELATONIN 5MG TABLET GT SCH (20:44)
[2020-05-12] MEDS: RIVAROXABAN 10 MG TABLET GT SCH (20:44)
[2020-05-13] MEDS: FAMOTIDINE 20 MG TABLET GT SCH ×2 (05:44→17:08)
[2020-05-13 07:51] VITALS: BP 117/60
[2020-05-13] MEDS: levETIRAcetam 500 MG/5 ML LIQUID UDC GT SCH ×2 (08:28→20:03)
[2020-05-13] MEDS: LACOSAMIDE 100 MG/10 ML UDC GT SCH ×2 (08:28→20:05)
[2020-05-13] MEDS: ACIDOPHILUS/BULGARICUS CHEW TAB GT SCH ×2 (08:28→21:17)
[2020-05-13] MEDS: METOPROLOL TARTRATE 50 MG TABLET GT SCH ×2 (08:29→21:17)
[2020-05-13] MEDS: AMLODIPINE 10 MG TABLET GT SCH (08:30)
[2020-05-13] MEDS: COD LIVER OIL/ZINC OXIDE OINT 113 GM TUBE TP SCH ×2 (08:32→21:18)
[2020-05-13] MEDS: NUTRISOURCE FIBER 4 GM PACKET GT SCH (08:32)
[2020-05-13] MEDS: ADAPALENE 0.1% TP SCH (08:34)
[2020-05-13] MEDS: CLINDAMYCIN TP SCH (08:34)
[2020-05-13] MEDS: HYDROGEN PEROXIDE 3% 118 ML BOTTLE TOP SCH ×2 (09:00→21:39)
[2020-05-13] MEDS: BACLOFEN 10 MG TABLET GT SCH ×2 (10:11→20:03)
--- NOTE | 2020-05-13 11:08 | NUR ---
Per request from Office of Public Guardian [place] Trish Jameson, for additional information on the Capacity Declaration form, this SW met with Dr. Kiran today and completed the additional information. SW faxed the updated form to Trish Jameson, [place] Public Conservator/Repertoire Manager at the Office of the Public Guardian. / .
--- NOTE | 2020-05-13 13:25 | NUR ---
Spoke with Pt's mother Abdoul Gupta. Verbal consent given by Abdoul Gupta for patient to receive COVID 19 Vaccine.
[2020-05-13 14:00] VITALS: BP 109/62
[2020-05-13] MEDS: JEVITY 1.2 1000 ML LIQUID GT PRN (17:08)
[2020-05-13 19:35] VITALS: BP 127/79
[2020-05-13] MEDS: MELATONIN 5MG TABLET GT SCH (21:18)
[2020-05-13] MEDS: RIVAROXABAN 10 MG TABLET GT SCH (21:57)
[2020-05-14] MEDS: FAMOTIDINE 20 MG TABLET GT SCH ×2 (05:28→17:22)
[2020-05-14 08:31] VITALS: BP 120/45
[2020-05-14] MEDS: levETIRAcetam 500 MG/5 ML LIQUID UDC GT SCH ×2 (08:54→20:27)
[2020-05-14] MEDS: LACOSAMIDE 100 MG/10 ML UDC GT SCH ×2 (08:54→20:27)
[2020-05-14] MEDS: HYDROGEN PEROXIDE 3% 118 ML BOTTLE TOP SCH ×2 (09:00→21:37)
[2020-05-14] MEDS: ACIDOPHILUS/BULGARICUS CHEW TAB GT SCH ×2 (09:21→21:12)
[2020-05-14] MEDS: CLINDAMYCIN TP SCH (09:22)
[2020-05-14] MEDS: BACLOFEN 10 MG TABLET GT SCH ×2 (09:22→20:27)
[2020-05-14] MEDS: COD LIVER OIL/ZINC OXIDE OINT 113 GM TUBE TP SCH ×2 (09:22→21:14)
[2020-05-14] MEDS: AMLODIPINE 10 MG TABLET GT SCH (09:22)
[2020-05-14] MEDS: NUTRISOURCE FIBER 4 GM PACKET GT SCH (09:22)
[2020-05-14] MEDS: METOPROLOL TARTRATE 50 MG TABLET GT SCH ×2 (09:22→21:00)
[2020-05-14] MEDS: [UNRECOGNIZED DRUG - OTHER] TP SCH (09:22)
[2020-05-14] MEDS: JEVITY 1.2 1000 ML LIQUID GT PRN (17:22)
[2020-05-14 19:50] VITALS: BP 102/55
[2020-05-14] MEDS: RIVAROXABAN 10 MG TABLET GT SCH (21:00)
[2020-05-14] MEDS: MELATONIN 5MG TABLET GT SCH (21:14)
[2020-05-15] MEDS: FAMOTIDINE 20 MG TABLET GT SCH ×2 (06:24→17:33)
[2020-05-15 07:55] VITALS: BP 104/62
[2020-05-15] MEDS: LACOSAMIDE 100 MG/10 ML UDC GT SCH ×2 (08:42→20:40)
[2020-05-15] MEDS: ACIDOPHILUS/BULGARICUS CHEW TAB GT SCH ×2 (08:42→20:40)
[2020-05-15] MEDS: levETIRAcetam 500 MG/5 ML LIQUID UDC GT SCH ×2 (08:42→20:40)
[2020-05-15] MEDS: AMLODIPINE 10 MG TABLET GT SCH (08:43)
[2020-05-15] MEDS: ADAPALENE 0.1% TP SCH (08:43)
[2020-05-15] MEDS: COD LIVER OIL/ZINC OXIDE OINT 113 GM TUBE TP SCH ×2 (08:43→20:41)
[2020-05-15] MEDS: NUTRISOURCE FIBER 4 GM PACKET GT SCH (08:43)
[2020-05-15] MEDS: METOPROLOL TARTRATE 50 MG TABLET GT SCH ×2 (08:43→20:40)
[2020-05-15] MEDS: CLINDAMYCIN TP SCH (08:44)
[2020-05-15] MEDS: HYDROGEN PEROXIDE 3% 118 ML BOTTLE TOP SCH ×2 (09:15→21:16)
[2020-05-15] MEDS: BACLOFEN 10 MG TABLET GT SCH ×2 (09:19→20:40)
[2020-05-15] MEDS: JEVITY 1.2 1000 ML LIQUID GT PRN (17:34)
[2020-05-15 19:45] VITALS: BP 107/68
[2020-05-15] MEDS: MELATONIN 5MG TABLET GT SCH (20:41)
[2020-05-15] MEDS: RIVAROXABAN 10 MG TABLET GT SCH (20:41)
[2020-05-16] MEDS: FAMOTIDINE 20 MG TABLET GT SCH ×2 (05:25→17:26)
[2020-05-16 07:43] VITALS: BP 129/77
[2020-05-16] MEDS: levETIRAcetam 500 MG/5 ML LIQUID UDC GT SCH ×2 (08:48→20:41)
[2020-05-16] MEDS: METOPROLOL TARTRATE 50 MG TABLET GT SCH ×2 (08:49→20:41)
[2020-05-16] MEDS: ACIDOPHILUS/BULGARICUS CHEW TAB GT SCH ×2 (08:49→20:41)
[2020-05-16] MEDS: LACOSAMIDE 100 MG/10 ML UDC GT SCH ×2 (08:49→20:41)
[2020-05-16] MEDS: CLINDAMYCIN TP SCH (08:49)
[2020-05-16] MEDS: COD LIVER OIL/ZINC OXIDE OINT 113 GM TUBE TP SCH ×2 (08:49→20:44)
[2020-05-16] MEDS: [UNRECOGNIZED DRUG - OTHER] TP SCH (08:49)
[2020-05-16] MEDS: NUTRISOURCE FIBER 4 GM PACKET GT SCH (08:49)
[2020-05-16] MEDS: AMLODIPINE 10 MG TABLET GT SCH (08:49)
[2020-05-16] MEDS: HYDROGEN PEROXIDE 3% 118 ML BOTTLE TOP SCH ×2 (09:00→21:39)
[2020-05-16] MEDS: BACLOFEN 10 MG TABLET GT SCH ×2 (10:07→20:41)
--- NOTE | 2020-05-16 15:21 | NUR ---
PT'S MOTHER MLII WAS NOTIFIED RE:NEGATIVE COVID 19 TEST.
[2020-05-16] MEDS: JEVITY 1.2 1000 ML LIQUID GT PRN ×2 (16:02→17:26)
[2020-05-16 20:04] VITALS: BP 100/59
[2020-05-16] MEDS: MELATONIN 5MG TABLET GT SCH (20:42)
[2020-05-16] MEDS: RIVAROXABAN 10 MG TABLET GT SCH (20:42)
[2020-05-17] MEDS: FAMOTIDINE 20 MG TABLET GT SCH ×2 (05:57→17:50)
[2020-05-17 07:50] VITALS: BP 125/72
[2020-05-17] MEDS: LACOSAMIDE 100 MG/10 ML UDC GT SCH ×2 (08:00→20:57)
[2020-05-17] MEDS: levETIRAcetam 500 MG/5 ML LIQUID UDC GT SCH ×2 (08:00→20:56)
[2020-05-17] MEDS: HYDROGEN PEROXIDE 3% 118 ML BOTTLE TOP SCH ×2 (09:00→21:50)
[2020-05-17] MEDS: ACIDOPHILUS/BULGARICUS CHEW TAB GT SCH ×2 (09:11→20:57)
[2020-05-17] MEDS: NUTRISOURCE FIBER 4 GM PACKET GT SCH (09:12)
[2020-05-17] MEDS: METOPROLOL TARTRATE 50 MG TABLET GT SCH ×2 (09:12→20:58)
[2020-05-17] MEDS: AMLODIPINE 10 MG TABLET GT SCH (09:12)
[2020-05-17] MEDS: COD LIVER OIL/ZINC OXIDE OINT 113 GM TUBE TP SCH ×2 (09:12→20:58)
[2020-05-17] MEDS: BACLOFEN 10 MG TABLET GT SCH ×2 (09:13→20:00)
[2020-05-17] MEDS: CLINDAMYCIN TP SCH (09:13)
[2020-05-17] MEDS: ADAPALENE 0.1% TP SCH (09:13)
--- NOTE | 2020-05-17 13:09 | NUR ---
SEEN BY QUAN HALL WITH NNO.
--- NOTE | 2020-05-17 15:39 | NUR ---
Ms Gupta had questions regarding the COVID 19 vaccine prior to pt receiving vaccine. [facility] contracting officer personally contacted Ms Gupta addressing all questions and concerns. Ms Gupta has given verbal consent for vaccine administration to pt.
--- NOTE | 2020-05-17 18:32 | NUR ---
Video call provided with pt. and family(mother). No complaints at this time. Will continue to monitor.
[2020-05-17 20:58] VITALS: BP 141/83
[2020-05-17] MEDS: RIVAROXABAN 10 MG TABLET GT SCH (20:58)
[2020-05-17] MEDS: MELATONIN 5MG TABLET GT SCH (20:58)
[2020-05-17] MEDS: JEVITY 1.2 1000 ML LIQUID GT PRN (22:05)
[2020-05-18] MEDS: FAMOTIDINE 20 MG TABLET GT SCH ×2 (05:29→18:21)
[2020-05-18] MEDS: JEVITY 1.2 1000 ML LIQUID GT PRN (05:29)
[2020-05-18 07:59] VITALS: BP 105/55
[2020-05-18] MEDS: levETIRAcetam 500 MG/5 ML LIQUID UDC GT SCH ×2 (08:00→20:07)
[2020-05-18] MEDS: LACOSAMIDE 100 MG/10 ML UDC GT SCH ×2 (08:00→20:09)
[2020-05-18] MEDS: AMLODIPINE 10 MG TABLET GT SCH (09:00)
[2020-05-18] MEDS: METOPROLOL TARTRATE 50 MG TABLET GT SCH ×2 (09:00→21:00)
[2020-05-18] MEDS: ACIDOPHILUS/BULGARICUS CHEW TAB GT SCH ×2 (09:48→21:18)
[2020-05-18] MEDS: NUTRISOURCE FIBER 4 GM PACKET GT SCH (09:50)
[2020-05-18] MEDS: COD LIVER OIL/ZINC OXIDE OINT 113 GM TUBE TP SCH ×2 (09:51→21:20)
[2020-05-18] MEDS: CLINDAMYCIN TP SCH (09:51)
[2020-05-18] MEDS: [UNRECOGNIZED DRUG - OTHER] TP SCH (09:51)
[2020-05-18] MEDS: BACLOFEN 10 MG TABLET GT SCH ×2 (10:00→20:09)
--- NOTE | 2020-05-18 18:59 | NUR ---
Video call provided with pt and family(mother). No complaints brought up at this time.
--- NOTE | 2020-05-18 19:57 | NUR ---
New orders to Give COVID vaccine x 1 carried out.
[2020-05-18 20:41] VITALS: BP 105/67
[2020-05-18] MEDS: MELATONIN 5MG TABLET GT SCH (21:19)
[2020-05-18] MEDS: RIVAROXABAN 10 MG TABLET GT SCH (21:19)
[2020-05-18] MEDS: HYDROGEN PEROXIDE 3% 118 ML BOTTLE TOP SCH (21:50)
[2020-05-19] MEDS: JEVITY 1.2 1000 ML LIQUID GT PRN (01:31)
[2020-05-19] MEDS: FAMOTIDINE 20 MG TABLET GT SCH ×2 (05:46→17:47)
[2020-05-19 07:57] VITALS: BP 117/60
[2020-05-19] MEDS: levETIRAcetam 500 MG/5 ML LIQUID UDC GT SCH ×2 (08:18→20:11)
[2020-05-19] MEDS: LACOSAMIDE 100 MG/10 ML UDC GT SCH ×2 (08:18→20:12)
[2020-05-19] MEDS: ACIDOPHILUS/BULGARICUS CHEW TAB GT SCH ×2 (08:19→20:12)
[2020-05-19] MEDS: NUTRISOURCE FIBER 4 GM PACKET GT SCH (08:20)
[2020-05-19] MEDS: AMLODIPINE 10 MG TABLET GT SCH (08:20)
[2020-05-19] MEDS: METOPROLOL TARTRATE 50 MG TABLET GT SCH ×2 (08:20→20:13)
[2020-05-19] MEDS: COD LIVER OIL/ZINC OXIDE OINT 113 GM TUBE TP SCH ×2 (08:21→20:16)
[2020-05-19] MEDS: CLINDAMYCIN TP SCH (08:21)
[2020-05-19] MEDS: HYDROGEN PEROXIDE 3% 118 ML BOTTLE TOP SCH ×2 (09:00→21:33)
[2020-05-19] MEDS: ADAPALENE 0.1% TP SCH (09:00)
[2020-05-19] MEDS: BACLOFEN 10 MG TABLET GT SCH ×2 (10:22→20:11)
--- NOTE | 2020-05-19 18:00 | NUR ---
Covid vaccine was administered ,no adverse reaction noted,on close observation,pt's mother Marilee was notified,
[2020-05-19 20:00] VITALS: BP 110/75
[2020-05-19] MEDS: MELATONIN 5MG TABLET GT SCH (20:13)
[2020-05-19] MEDS: RIVAROXABAN 10 MG TABLET GT SCH (20:16)
[~2020-05-20] VITALS: Ht 152.4 cm; Wt 52.2 kg
[2020-05-20] MEDS: JEVITY 1.2 1000 ML LIQUID GT PRN ×2 (02:36→16:21)
--- NOTE | 2020-05-20 06:20 | NUR ---
no side effects noted from covid vaccine
[2020-05-20] MEDS: FAMOTIDINE 20 MG TABLET GT SCH ×2 (06:24→17:10)
[2020-05-20 08:02] VITALS: BP 115/62
[2020-05-20] MEDS: levETIRAcetam 500 MG/5 ML LIQUID UDC GT SCH ×2 (08:39→20:36)
[2020-05-20] MEDS: ACIDOPHILUS/BULGARICUS CHEW TAB GT SCH ×2 (08:40→20:37)
[2020-05-20] MEDS: METOPROLOL TARTRATE 50 MG TABLET GT SCH ×2 (08:40→20:43)
[2020-05-20] MEDS: LACOSAMIDE 100 MG/10 ML UDC GT SCH ×2 (08:40→20:36)
[2020-05-20] MEDS: AMLODIPINE 10 MG TABLET GT SCH (08:41)
[2020-05-20] MEDS: CLINDAMYCIN TP SCH (08:43)
[2020-05-20] MEDS: COD LIVER OIL/ZINC OXIDE OINT 113 GM TUBE TP SCH ×2 (08:43→20:42)
[2020-05-20] MEDS: [UNRECOGNIZED DRUG - OTHER] TP SCH (08:43)
[2020-05-20] MEDS: NUTRISOURCE FIBER 4 GM PACKET GT SCH (08:43)
[2020-05-20] MEDS: HYDROGEN PEROXIDE 3% 118 ML BOTTLE TOP SCH ×2 (09:25→21:04)
[2020-05-20] MEDS: BACLOFEN 10 MG TABLET GT SCH ×2 (10:10→20:36)
--- NOTE | 2020-05-20 17:30 | NUR ---
zoom provided for patient with mother.
--- NOTE | 2020-05-20 18:45 | NUR ---
no adverse reaction noted from [facility] vaccine
[2020-05-20 20:00] VITALS: BP 102/54
[2020-05-20] MEDS: MELATONIN 5MG TABLET GT SCH (20:40)
[2020-05-20] MEDS: RIVAROXABAN 10 MG TABLET GT SCH (20:42)
[~2020-05-20 23:59] MED LIST: ACET-2154 GT; ACETAMINOPHEN 650 MG/20 ML UDC- SA PATIENTS-FEVER ONLY GT PRN; ACETAMINOPHEN 650 MG/20 ML UDC- SA PATIENTS-PAIN ONLY GT PRN; ACID1TAB12 GT; ADAPALENE 0.1% TP SCH; AMIN30LI2 GT; AMLO10TA4 GT; ASCO500C18 GT; CALC500T13 GT; CEFE1VIA3 IV; CHOLECALCIFEROL 1,000 UNIT TABLET PO SCH; COVID-19 VACC,MRNA(MODERNA)/PF 100 MCG/0.5 ML VIAL IM ONE; DEXT15DR6 EACHEYE; FAMOTIDINE 20 MG TABLET PO ONE; FERR325T28 GT; FLUOCINONIDE 0.05% CREAM 30 GM TUBE TP SCH; GUAR1PAC4 GT; HEPA500034 SQ; HYDR-4075 GT; HYDR1SOL TOP; HYDROCODONE/APAP 5-325MG TABLET GT PRN; HYDROCORTISONE 1% CREAM 30 GM TUBE TP PRN; LACOSAMIDE 100 MG/10 ML UDC PO ONE; LACT-89 GT; LEVE500T9 GT; LORA2VIA33 IV; LORAZEPAM 2 MG/1 ML VIAL IM ONE; METO50TA16 GT; METOCLOPRAMIDE HCL 10 MG/10 ML UDC GT SCH; MISCELLANEOUS MED ONE; MISCELLANEOUS MED TP ONE; MULT-594 GT; NEOM1PAC2 TP; NEOMY/BACITRA/POLYMYXIN B OINT UD PACKET TP PRN; NEOMY/BACITRAC/POLYMI OINT 28.35 GM TUBE TOP SCH; NITROFURANTOIN/NITROFURAN MAC 100 MG CAPSULE PO SCH; NYSTATIN SUSP; OMEP20TA20 GT; OMEPRAZOLE 20 MG CAPSULE.DR GT SCH; PANTOPRAZOLE GT SCH; RANITIDINE 300 MG GT SCH; RANITIDINE HCL 150 MG TABLET GT SCH; RIVAROXABAN 10 MG TABLET GT SCH; RIVAROXABAN 10 MG TABLET PO SCH; SIMETHICONE 80 MG TAB.CHEW GT PRN; TUBERCULIN,PURIF.PROT.DERIV. 5 TU/0.1 ML TEST ID ONE; ZINC1CAP2 GT; ZINC57OI3 TP; diphenhydrAMINE 1% CREAM 28.3 GM TUBE TP PRN; diphenhydrAMINE 25 MG/10 ML UDC GT PRN; hydrALAZINE HCL 10 MG TABLET GT PRN
--- NOTE | 2020-05-21 03:41 | NUR ---
Patient is afebrile, no signs of any adverse reactions noted from the COVID-19 vaccine.
[2020-05-21] MEDS: FAMOTIDINE 20 MG TABLET GT SCH ×2 (06:30→17:25)
[2020-05-21] MEDS: HYDROGEN PEROXIDE 3% 118 ML BOTTLE TOP SCH ×2 (07:44→22:00)
[2020-05-21 07:53] VITALS: BP 93/52
[2020-05-21] MEDS: LACOSAMIDE 100 MG/10 ML UDC GT SCH ×2 (08:12→20:11)
[2020-05-21] MEDS: levETIRAcetam 500 MG/5 ML LIQUID UDC GT SCH ×2 (08:12→20:11)
[2020-05-21] MEDS: METOPROLOL TARTRATE 50 MG TABLET GT SCH ×2 (08:14→20:11)
[2020-05-21] MEDS: AMLODIPINE 10 MG TABLET GT SCH (08:14)
[2020-05-21] MEDS: ACIDOPHILUS/BULGARICUS CHEW TAB GT SCH ×2 (08:14→20:11)
[2020-05-21] MEDS: NUTRISOURCE FIBER 4 GM PACKET GT SCH (08:15)
[2020-05-21] MEDS: COD LIVER OIL/ZINC OXIDE OINT 113 GM TUBE TP SCH ×2 (08:16→20:13)
[2020-05-21] MEDS: ADAPALENE 0.1% TP SCH (08:16)
[2020-05-21] MEDS: CLINDAMYCIN TP SCH (08:17)
[2020-05-21] MEDS: BACLOFEN 10 MG TABLET GT SCH ×2 (10:00→20:11)
--- NOTE | 2020-05-21 14:56 | NUR ---
Patient is afebrile, no signs of any adverse reactions noted from the COVID-19 vaccine.
--- NOTE | 2020-05-21 18:38 | NUR ---
ZOOM PROVIDED TO MOTHER.
[2020-05-21 20:00] VITALS: BP 115/71
[2020-05-21] MEDS: MELATONIN 5MG TABLET GT SCH (20:12)
[2020-05-21] MEDS: RIVAROXABAN 10 MG TABLET GT SCH (20:24)
--- NOTE | 2020-05-21 23:19 | NUR ---
Patient is afebrile, no signs of adverse reaction from Covid-19 vaccine.
[2020-05-22] MEDS: FAMOTIDINE 20 MG TABLET GT SCH ×2 (05:23→18:09)
[2020-05-22 08:09] VITALS: BP 102/59
[2020-05-22] MEDS: levETIRAcetam 500 MG/5 ML LIQUID UDC GT SCH ×2 (08:55→20:29)
[2020-05-22] MEDS: LACOSAMIDE 100 MG/10 ML UDC GT SCH ×2 (08:55→20:29)
[2020-05-22] MEDS: METOPROLOL TARTRATE 50 MG TABLET GT SCH ×2 (09:00→20:30)
[2020-05-22] MEDS: AMLODIPINE 10 MG TABLET GT SCH (09:00)
[2020-05-22] MEDS: ACIDOPHILUS/BULGARICUS CHEW TAB GT SCH ×2 (09:03→20:29)
[2020-05-22] MEDS: BACLOFEN 10 MG TABLET GT SCH ×2 (09:04→20:29)
[2020-05-22] MEDS: COD LIVER OIL/ZINC OXIDE OINT 113 GM TUBE TP SCH ×2 (09:04→20:30)
[2020-05-22] MEDS: CLINDAMYCIN TP SCH (09:04)
[2020-05-22] MEDS: NUTRISOURCE FIBER 4 GM PACKET GT SCH (09:04)
[2020-05-22] MEDS: [UNRECOGNIZED DRUG - OTHER] TP SCH (09:04)
[2020-05-22] MEDS: HYDROGEN PEROXIDE 3% 118 ML BOTTLE TOP SCH ×2 (10:30→20:39)
--- NOTE | 2020-05-22 10:30 | NUR ---
SEE RESPIRATORY PROGRESS NOTE.
--- NOTE | 2020-05-22 18:36 | NUR ---
No adverse effects noted from Covid 19 vaccine during shift.
[2020-05-22] MEDS: RIVAROXABAN 10 MG TABLET GT SCH (20:21)
[2020-05-22] MEDS: MELATONIN 5MG TABLET GT SCH (20:29)
[2020-05-22 22:18] VITALS: BP 113/65
--- NOTE | 2020-05-23 03:06 | NUR ---
mother, rosalva notified that covid 19 test is negative.
[2020-05-23] MEDS: FAMOTIDINE 20 MG TABLET GT SCH ×2 (05:30→17:10)
[2020-05-23 08:08] VITALS: BP 108/49
[2020-05-23] MEDS: levETIRAcetam 500 MG/5 ML LIQUID UDC GT SCH ×2 (08:54→20:45)
[2020-05-23] MEDS: LACOSAMIDE 100 MG/10 ML UDC GT SCH ×2 (08:54→20:45)
[2020-05-23] MEDS: HYDROGEN PEROXIDE 3% 118 ML BOTTLE TOP SCH ×2 (09:00→20:41)
[2020-05-23] MEDS: METOPROLOL TARTRATE 50 MG TABLET GT SCH ×2 (09:00→21:59)
[2020-05-23] MEDS: ACIDOPHILUS/BULGARICUS CHEW TAB GT SCH ×2 (09:54→21:58)
[2020-05-23] MEDS: NUTRISOURCE FIBER 4 GM PACKET GT SCH (09:56)
[2020-05-23] MEDS: AMLODIPINE 10 MG TABLET GT SCH (09:56)
[2020-05-23] MEDS: ADAPALENE 0.1% TP SCH (09:57)
[2020-05-23] MEDS: BACLOFEN 10 MG TABLET GT SCH ×2 (09:57→20:45)
[2020-05-23] MEDS: COD LIVER OIL/ZINC OXIDE OINT 113 GM TUBE TP SCH ×2 (09:57→21:59)
[2020-05-23] MEDS: CLINDAMYCIN TP SCH (09:57)
[2020-05-23] MEDS: JEVITY 1.2 1000 ML LIQUID GT PRN (11:41)
--- NOTE | 2020-05-23 18:38 | NUR ---
Pt afebrile. No adverse side effects from Covid19 vaccine.
[2020-05-23] MEDS: RIVAROXABAN 10 MG TABLET GT SCH (21:00)
[2020-05-23] MEDS: MELATONIN 5MG TABLET GT SCH (21:59)
[2020-05-23 22:00] VITALS: BP 110/77
[2020-05-24] MEDS: FAMOTIDINE 20 MG TABLET GT SCH (06:01)
[2020-05-24] MEDS: JEVITY 1.2 1000 ML LIQUID GT PRN (06:01)
== END | disposition still patient (30) | DRG 133 ==
LOC: SA 05-21
PROVIDERS: ADMIT Internal Medicine Nephrology; ATTEND Internal Medicine Nephrology
DX: J96.21 Acute and chronic respiratory failure with hypoxia (principal); G93.1 Anoxic brain damage, not elsewhere classified; Z93.0 Tracheostomy status; E46 Unspecified protein-calorie malnutrition; R53.2 Functional quadriplegia; E83.39 Other disorders of phosphorus metabolism; T79.A1 Traumatic compartment syndrome of upper extremity; D64.9 Anemia, unspecified; Z86.74 Personal history of sudden cardiac arrest; Z91.010 Allergy to peanuts; X58.XXXS Exposure to other specified factors, sequela; J98.11 Atelectasis; Z87.440 Personal history of urinary (tract) infections; Z68.1 Body mass index [BMI] 19.9 or less, adult; Z86.73 Personal history of transient ischemic attack (TIA), and cerebral infarction without residual deficits; E55.9 Vitamin D deficiency, unspecified; Z79.01 Long term (current) use of anticoagulants; Z86.19 Personal history of other infectious and parasitic diseases
CPT/HCPCS: 36415; 71045; 76700; 80299; 80307; 82652; 83690; 83735; 83970; 84100; 85025; 86140; 86580; 87040; 87070; 87086; A4217; A4663; C1758; J1644; J2060; J8597; Q0162; U0003

== ENCOUNTER 2020-09-30 04:10 | Outpatient (CLI) | payer MEDICAID ==
[~2020-09-30 04:10] MED LIST changes: -ACETAMINOPHEN 650 MG/20 ML UDC- SA PATIENTS-FEVER ONLY GT PRN; -ACETAMINOPHEN 650 MG/20 ML UDC- SA PATIENTS-PAIN ONLY GT PRN; -ADAPALENE 0.1% TP SCH; -CHOLECALCIFEROL 1,000 UNIT TABLET PO SCH; -COVID-19 VACC,MRNA(MODERNA)/PF 100 MCG/0.5 ML VIAL IM ONE; -FAMOTIDINE 20 MG TABLET PO ONE; -FLUOCINONIDE 0.05% CREAM 30 GM TUBE TP SCH; -HYDROCODONE/APAP 5-325MG TABLET GT PRN; -HYDROCORTISONE 1% CREAM 30 GM TUBE TP PRN; -LACOSAMIDE 100 MG/10 ML UDC PO ONE; -LORAZEPAM 2 MG/1 ML VIAL IM ONE; -METOCLOPRAMIDE HCL 10 MG/10 ML UDC GT SCH; -MISCELLANEOUS MED ONE; -MISCELLANEOUS MED TP ONE; -NEOMY/BACITRA/POLYMYXIN B OINT UD PACKET TP PRN; -NEOMY/BACITRAC/POLYMI OINT 28.35 GM TUBE TOP SCH; -NITROFURANTOIN/NITROFURAN MAC 100 MG CAPSULE PO SCH; -OMEPRAZOLE 20 MG CAPSULE.DR GT SCH; -PANTOPRAZOLE GT SCH; -RANITIDINE 300 MG GT SCH; -RANITIDINE HCL 150 MG TABLET GT SCH; -RIVAROXABAN 10 MG TABLET GT SCH; -RIVAROXABAN 10 MG TABLET PO SCH; -SIMETHICONE 80 MG TAB.CHEW GT PRN; -TUBERCULIN,PURIF.PROT.DERIV. 5 TU/0.1 ML TEST ID ONE; -diphenhydrAMINE 1% CREAM 28.3 GM TUBE TP PRN; -diphenhydrAMINE 25 MG/10 ML UDC GT PRN; -hydrALAZINE HCL 10 MG TABLET GT PRN
[2020-09-30] MEDS ORDERED: DIATR MEGLU/DIATRIZOATE SODIUM 30 ML BOTTLE ONE ×2 (05:42→07:19)
== END 2020-09-30 23:59 | disposition still patient (30) ==
LOC: RAD 04:10
PROVIDERS: ATTEND Internal Medicine Pulmonary Disease
DX: R11.10 Vomiting, unspecified (principal); Z93.1 Gastrostomy status
CPT/HCPCS: Q9963

== ENCOUNTER 2020-11-16 18:54 | Day surgery (SDC) | payer MEDICAID ==
[2020-11-16] MEDS ORDERED: PROPOFOL 200 MG/20 ML BOTTLE IV ONE (18:55)
[2020-11-16] MEDS ORDERED: IV LACTATED RINGERS SOLUTION 1,000 ML BAG IV ONE (18:55)
[2020-11-16] MEDS ORDERED: EPHEDRINE SULFATE 50 MG/ML AMPUL IM ONE (18:55)
[2020-11-16] MEDS ORDERED: CEFAZOLIN 1 G VIAL IM ONE (18:55)
== END 2020-11-16 22:05 ==
LOC: DS 18:54
PROVIDERS: ATTEND Internal Medicine Gastroenterology
DX: R13.10 Dysphagia, unspecified (principal); R06.89 Other abnormalities of breathing; G93.1 Anoxic brain damage, not elsewhere classified; I46.9 Cardiac arrest, cause unspecified; N18.6 End stage renal disease; Z99.2 Dependence on renal dialysis; Z79.899 Other long term (current) drug therapy; Z98.890 Other specified postprocedural states; Z79.82 Long term (current) use of aspirin; Z88.8 Allergy status to other drugs, medicaments and biological substances
CPT/HCPCS: 36415; 43246; 84702; J0690; J3490; J7120; A4217

== ENCOUNTER 2021-01-06 13:39 | Outpatient (CLI) | payer MEDICAID | END 2021-01-06 23:59 | LOC: CT 13:39 | PROVIDERS: ATTEND Internal Medicine Pulmonary Disease | DX: I67.82 Cerebral ischemia (principal); I63.81 Other cerebral infarction due to occlusion or stenosis of small artery; G93.40 Encephalopathy, unspecified | CPT/HCPCS: 70450 ==

== ENCOUNTER 2021-01-08 08:14 | Outpatient (CLI) | payer MEDICAID ==
[2021-01-08] MEDS ORDERED: DIATR MEGLU/DIATRIZOATE SODIUM 30 ML BOTTLE ONE (08:58)
== END 2021-01-08 23:59 | disposition home or self-care (01) ==
LOC: CT 08:14
PROVIDERS: ATTEND Internal Medicine Gastroenterology
DX: K63.89 Other specified diseases of intestine (principal); R11.2 Nausea with vomiting, unspecified; Z93.1 Gastrostomy status
CPT/HCPCS: Q9963

== ENCOUNTER 2021-05-21 | Inpatient (IN) | END 2022-05-20 23:59 | disposition still patient (30) | DRG 133 | DX: J96.11 Chronic respiratory failure with hypoxia (principal); I46.9 Cardiac arrest, cause unspecified; G93.1 Anoxic brain damage, not elsewhere classified; N17.9 Acute kidney failure, unspecified; D64.9 Anemia, unspecified; E55.9 Vitamin D deficiency, unspecified; H10.9 Unspecified conjunctivitis; I10 Essential (primary) hypertension; F10.11 Alcohol abuse, in remission; F19.11 Other psychoactive substance abuse, in remission; J40 Bronchitis, not specified as acute or chronic; J98.11 Atelectasis; L30.9 Dermatitis, unspecified; R13.10 Dysphagia, unspecified; R53.2 Functional quadriplegia; Z20.822 Contact with and (suspected) exposure to COVID-19; Z91.010 Allergy to peanuts; Z93.0 Tracheostomy status; Z93.1 Gastrostomy status ==

== ENCOUNTER 2022-05-21 | Inpatient (IN) | payer MEDICAID ==
[~2022-05-21] VITALS: Ht 152.4 cm; Wt 49.4 kg
[2022-05-23 07:05] VITALS: O2SAT 98
[2022-05-23] MEDS: LACOSAMIDE 100 MG/10 ML UDC GT SCH ×2 (08:00→20:00)
[2022-05-23] MEDS: levETIRAcetam 500 MG/5 ML LIQUID UDC GT SCH ×2 (08:00→20:00)
[2022-05-23] MEDS ORDERED: POLYVINYL ALCOHOL OPHT DROPS 15 ML BOTTLE EACHEYE PRN (09:00)
[2022-05-23] MEDS ORDERED: GUAIFENESIN SUGAR FREE 100 MG/5 ML UDC GT PRN (09:15)
[2022-05-23] MEDS ORDERED: HYDROCORTISONE 1% CREAM 30 GM TUBE TP PRN (09:15)
[2022-05-23] MEDS ORDERED: diphenhydrAMINE 25 MG/10 ML UDC GT PRN (09:15)
[2022-05-23] MEDS: ACIDOPHILUS/BULGARICUS CHEW TAB GT SCH ×2 (09:45→21:41)
[2022-05-23] MEDS: TIZANIDINE HCL 4 MG TABLET GT SCH ×2 (09:46→18:43)
[2022-05-23] MEDS: [UNRECOGNIZED DRUG - OTHER] TP SCH (09:46)
[2022-05-23] MEDS: METOCLOPRAMIDE HCL 10 MG TABLET GT SCH ×3 (09:46→18:44)
[2022-05-23] MEDS: REMEDY ESSENTIAL ZINC PASTE 113 GM TP SCH ×2 (09:46→21:43)
[2022-05-23] MEDS: HYDROGEN PEROXIDE 3% 118 ML BOTTLE TOP SCH ×2 (09:53→21:11)
[2022-05-23 11:00] VITALS: TEMP 98
[2022-05-23 13:46] VITALS: O2SAT 97
[2022-05-23] MEDS: FAMOTIDINE 20 MG TABLET GT SCH (18:43)
[2022-05-23] MEDS: RIVAROXABAN 10 MG TABLET GT SCH (21:00)
[2022-05-23] MEDS: MELATONIN 5MG TABLET GT SCH (21:42)
[2022-05-23] MEDS: NUTRISOURCE FIBER 4 GM PACKET GT SCH (21:43)
[2022-05-23 22:13] VITALS: O2SAT 97
[2022-05-24 02:20] VITALS: TEMP 97.9
[2022-05-24] MEDS: FAMOTIDINE 20 MG TABLET GT SCH ×2 (05:54→18:23)
[2022-05-24] MEDS: VITAL AF 1.2 1,000 ML LIQUID GT PRN (06:11)
[2022-05-24 07:10] VITALS: O2SAT 98
[2022-05-24 07:30] VITALS: TEMP 97.4
[2022-05-24] MEDS: HYDROGEN PEROXIDE 3% 118 ML BOTTLE TOP SCH ×2 (07:50→20:42)
[2022-05-24] MEDS: LACOSAMIDE 100 MG/10 ML UDC GT SCH ×2 (08:37→20:18)
[2022-05-24] MEDS: levETIRAcetam 500 MG/5 ML LIQUID UDC GT SCH ×2 (08:38→20:18)
[2022-05-24] MEDS: ACIDOPHILUS/BULGARICUS CHEW TAB GT SCH ×2 (08:38→21:00)
[2022-05-24] MEDS: METOCLOPRAMIDE HCL 10 MG TABLET GT SCH ×3 (08:38→18:23)
[2022-05-24] MEDS: TIZANIDINE HCL 4 MG TABLET GT SCH ×2 (08:39→18:23)
[2022-05-24] MEDS: REMEDY ESSENTIAL ZINC PASTE 113 GM TP SCH ×2 (08:51→21:00)
[2022-05-24 20:00] VITALS: O2SAT 97
[2022-05-24 20:50] VITALS: TEMP 98.1
[2022-05-24] MEDS: MELATONIN 5MG TABLET GT SCH (21:00)
[2022-05-24] MEDS: NUTRISOURCE FIBER 4 GM PACKET GT SCH (21:00)
[2022-05-24] MEDS: RIVAROXABAN 10 MG TABLET GT SCH (21:00)
[2022-05-25] MEDS: VITAL AF 1.2 1,000 ML LIQUID GT PRN (02:08)
[2022-05-25] MEDS: FAMOTIDINE 20 MG TABLET GT SCH ×2 (05:13→18:31)
[2022-05-25] MEDS: HYDROGEN PEROXIDE 3% 118 ML BOTTLE TOP SCH ×2 (07:22→21:21)
[2022-05-25 07:43] VITALS: TEMP 97.6
[2022-05-25] MEDS: levETIRAcetam 500 MG/5 ML LIQUID UDC GT SCH ×2 (08:10→20:09)
[2022-05-25] MEDS: LACOSAMIDE 100 MG/10 ML UDC GT SCH ×2 (08:11→20:09)
[2022-05-25] MEDS: ACIDOPHILUS/BULGARICUS CHEW TAB GT SCH ×2 (08:11→21:00)
[2022-05-25] MEDS: [UNRECOGNIZED DRUG - OTHER] TP SCH (08:12)
[2022-05-25] MEDS: REMEDY ESSENTIAL ZINC PASTE 113 GM TP SCH ×2 (08:12→21:00)
[2022-05-25] MEDS: TIZANIDINE HCL 4 MG TABLET GT SCH ×2 (08:12→18:31)
[2022-05-25] MEDS: METOCLOPRAMIDE HCL 10 MG TABLET GT SCH ×3 (08:12→18:31)
[2022-05-25 10:35] VITALS: O2SAT 98
[2022-05-25 20:05] VITALS: O2SAT 97
[2022-05-25 20:42] VITALS: TEMP 96.9
[2022-05-25] MEDS: RIVAROXABAN 10 MG TABLET GT SCH (21:00)
[2022-05-25] MEDS: MELATONIN 5MG TABLET GT SCH (21:00)
[2022-05-25] MEDS: NUTRISOURCE FIBER 4 GM PACKET GT SCH (21:00)
[2022-05-26] MEDS: VITAL AF 1.2 1,000 ML LIQUID GT PRN (04:21)
[2022-05-26] MEDS: FAMOTIDINE 20 MG TABLET GT SCH ×2 (05:27→18:36)
[2022-05-26 08:00] VITALS: TEMP 98
[2022-05-26] MEDS: levETIRAcetam 500 MG/5 ML LIQUID UDC GT SCH ×2 (08:00→20:36)
[2022-05-26] MEDS: LACOSAMIDE 100 MG/10 ML UDC GT SCH ×2 (08:00→20:36)
[2022-05-26] MEDS: REMEDY ESSENTIAL ZINC PASTE 113 GM TP SCH ×2 (09:00→21:00)
[2022-05-26] MEDS: TIZANIDINE HCL 4 MG TABLET GT SCH ×2 (09:00→18:36)
[2022-05-26] MEDS: METOCLOPRAMIDE HCL 10 MG TABLET GT SCH ×3 (09:00→18:36)
[2022-05-26] MEDS: ACIDOPHILUS/BULGARICUS CHEW TAB GT SCH ×2 (09:00→21:00)
[2022-05-26] MEDS: HYDROGEN PEROXIDE 3% 118 ML BOTTLE TOP SCH ×2 (09:32→21:00)
[2022-05-26 09:33] VITALS: O2SAT 98
[2022-05-26 20:00] VITALS: TEMP 97.8
[2022-05-26 20:30] VITALS: O2SAT 97
[2022-05-26] MEDS: NUTRISOURCE FIBER 4 GM PACKET GT SCH (21:00)
[2022-05-26] MEDS: MELATONIN 5MG TABLET GT SCH (21:00)
[2022-05-26] MEDS: RIVAROXABAN 10 MG TABLET GT SCH (21:00)
[2022-05-26 23:00] VITALS: O2SAT 97
[2022-05-27] MEDS: ONDANSETRON HCL 4 MG TABLET GT PRN (01:24)
[2022-05-27] MEDS: FAMOTIDINE 20 MG TABLET GT SCH ×2 (05:35→18:29)
[2022-05-27] MEDS: BISACODYL 10 MG SUPP.RECT RC PRN (06:11)
[2022-05-27 07:40] VITALS: O2SAT 98
[2022-05-27 07:55] VITALS: TEMP 98.6
[2022-05-27] MEDS: HYDROGEN PEROXIDE 3% 118 ML BOTTLE TOP SCH ×2 (08:41→21:35)
[2022-05-27] MEDS: levETIRAcetam 500 MG/5 ML LIQUID UDC GT SCH ×2 (08:53→20:15)
[2022-05-27] MEDS: LACOSAMIDE 100 MG/10 ML UDC GT SCH ×2 (08:53→20:15)
[2022-05-27] MEDS: ACIDOPHILUS/BULGARICUS CHEW TAB GT SCH ×2 (08:53→21:57)
[2022-05-27] MEDS: [UNRECOGNIZED DRUG - OTHER] TP SCH (08:54)
[2022-05-27] MEDS: METOCLOPRAMIDE HCL 10 MG TABLET GT SCH ×3 (08:54→18:29)
[2022-05-27] MEDS: TIZANIDINE HCL 4 MG TABLET GT SCH ×2 (08:54→18:30)
[2022-05-27] MEDS: REMEDY ESSENTIAL ZINC PASTE 113 GM TP SCH ×2 (08:54→21:58)
[2022-05-27 19:35] VITALS: O2SAT 96
[2022-05-27 20:42] VITALS: TEMP 97.8
[2022-05-27] MEDS: MELATONIN 5MG TABLET GT SCH (21:57)
[2022-05-27] MEDS: RIVAROXABAN 10 MG TABLET GT SCH (21:57)
[2022-05-27] MEDS: NUTRISOURCE FIBER 4 GM PACKET GT SCH (21:57)
[2022-05-28] VITALS (7 sets, daily range): TEMP 97.3–98.1; O2SAT 97–98
[2022-05-28] MEDS: FAMOTIDINE 20 MG TABLET GT SCH ×2 (05:39→18:33)
[2022-05-28] MEDS: HYDROGEN PEROXIDE 3% 118 ML BOTTLE TOP SCH ×2 (08:09→21:58)
[2022-05-28] MEDS: TIZANIDINE HCL 4 MG TABLET GT SCH ×2 (08:54→18:33)
[2022-05-28] MEDS: LACOSAMIDE 100 MG/10 ML UDC GT SCH ×2 (08:54→20:00)
[2022-05-28] MEDS: REMEDY ESSENTIAL ZINC PASTE 113 GM TP SCH ×2 (08:54→21:00)
[2022-05-28] MEDS: METOCLOPRAMIDE HCL 10 MG TABLET GT SCH ×3 (08:54→18:33)
[2022-05-28] MEDS: ACIDOPHILUS/BULGARICUS CHEW TAB GT SCH ×2 (08:54→21:00)
[2022-05-28] MEDS: levETIRAcetam 500 MG/5 ML LIQUID UDC GT SCH ×2 (08:54→20:00)
[2022-05-28] MEDS: VITAL AF 1.2 1,000 ML LIQUID GT PRN (15:17)
[2022-05-28] MEDS ORDERED: HYDROGEN PEROXIDE 3% 118 ML BOTTLE TOP PRN (15:45)
[2022-05-28] MEDS: NUTRISOURCE FIBER 4 GM PACKET GT SCH (21:00)
[2022-05-28] MEDS: RIVAROXABAN 10 MG TABLET GT SCH (21:00)
[2022-05-28] MEDS: MELATONIN 5MG TABLET GT SCH (21:00)
[2022-05-29] MEDS: FAMOTIDINE 20 MG TABLET GT SCH ×2 (06:00→18:35)
[2022-05-29 08:13] LABS: BASOPHILS # (AUTO) 0.1 K/UL (0.0-0.2); EOSINOPHILS # (AUTO) 0.4 K/uL (0.0-0.7); EOSINOPHILS % (AUTO) 4.8 % (0.0-7.0); HEMATOCRIT 38.8 % (31.2-41.9); HEMOGLOBIN 12.8 g/dL (10.9-14.3); LYMPHOCYTES # (AUTO) 2.4 K/uL (0.8-4.8); LYMPHOCYTES % (AUTO) 29.9 % (20.5-51.5); MEAN CORPUSCULAR HGB CONC 33 g/dL (32.3-35.6); MEAN CORPUSCULAR VOLUME 90.6 fL (75.5-95.3); MONOCYTES # (AUTO) 0.5 K/uL (0.1-1.30); MONOCYTES % (AUTO) 5.9 % (0.0-11.0); NEUTROPHILS # (AUTO) 4.7 K/uL (1.8-8.9); NEUTROPHILS % (AUTO) 58.4 % (38.5-71.5); PLATELET COUNT (AUTO) 271 K/uL (179-408); RED BLOOD CELL COUNT(AUTO) 4.28 MIL/uL (3.63-4.92); RED CELL DISTRIBUTION WIDTH 12.7 % (12.3-17.7)
[2022-05-29 08:24] LABS: DIFFERENTIAL COMMENT 1
[2022-05-29 08:25] LABS: CALCIUM 9.2 mg/dL (8.5-10.1); CREATININE 0.6 mg/dL (0.6-1.3); MAGNESIUM 2.1 mg/dL (1.8-2.4); POTASSIUM 4.3 mmol/L (3.5-5.1)
[2022-05-29 08:28] VITALS: TEMP 98
[2022-05-29] MEDS: LACOSAMIDE 100 MG/10 ML UDC GT SCH ×2 (08:29→20:51)
[2022-05-29] MEDS: levETIRAcetam 500 MG/5 ML LIQUID UDC GT SCH ×2 (08:30→20:51)
[2022-05-29] MEDS: HYDROGEN PEROXIDE 3% 118 ML BOTTLE TOP SCH ×2 (08:33→21:03)
[2022-05-29] MEDS: METOCLOPRAMIDE HCL 10 MG TABLET GT SCH ×3 (08:37→18:35)
[2022-05-29] MEDS: TIZANIDINE HCL 4 MG TABLET GT SCH ×2 (08:37→18:35)
[2022-05-29] MEDS: ACIDOPHILUS/BULGARICUS CHEW TAB GT SCH ×2 (08:37→21:00)
[2022-05-29] MEDS: REMEDY ESSENTIAL ZINC PASTE 113 GM TP SCH ×2 (08:38→21:00)
[2022-05-29] MEDS: [UNRECOGNIZED DRUG - OTHER] TP SCH (08:41)
[2022-05-29] MEDS: VITAL AF 1.2 1,000 ML LIQUID GT PRN (13:12)
[2022-05-29 14:03] VITALS: O2SAT 98
[2022-05-29 19:50] VITALS: O2SAT 97
[2022-05-29 20:00] VITALS: TEMP 98.4
[2022-05-29] MEDS: MELATONIN 5MG TABLET GT SCH (21:00)
[2022-05-29] MEDS: RIVAROXABAN 10 MG TABLET GT SCH (21:00)
[2022-05-29] MEDS: NUTRISOURCE FIBER 4 GM PACKET GT SCH (21:00)
[2022-05-30] MEDS: FAMOTIDINE 20 MG TABLET GT SCH ×2 (06:15→18:25)
[2022-05-30 07:43] VITALS: TEMP 97.7
[2022-05-30] MEDS: LACOSAMIDE 100 MG/10 ML UDC GT SCH ×2 (08:38→20:00)
[2022-05-30] MEDS: ACIDOPHILUS/BULGARICUS CHEW TAB GT SCH ×2 (08:38→21:00)
[2022-05-30] MEDS: TIZANIDINE HCL 4 MG TABLET GT SCH ×2 (08:38→18:25)
[2022-05-30] MEDS: REMEDY ESSENTIAL ZINC PASTE 113 GM TP SCH ×2 (08:38→21:00)
[2022-05-30] MEDS: levETIRAcetam 500 MG/5 ML LIQUID UDC GT SCH ×2 (08:38→20:00)
[2022-05-30] MEDS: METOCLOPRAMIDE HCL 10 MG TABLET GT SCH ×3 (08:38→18:25)
[2022-05-30] MEDS: HYDROGEN PEROXIDE 3% 118 ML BOTTLE TOP SCH ×2 (09:00→21:57)
[2022-05-30 10:34] VITALS: O2SAT 98
[2022-05-30] MEDS: VITAL AF 1.2 1,000 ML LIQUID GT PRN (15:52)
[2022-05-30 20:00] VITALS: TEMP 97.8
[2022-05-30] MEDS: MELATONIN 5MG TABLET GT SCH (21:00)
[2022-05-30] MEDS: NUTRISOURCE FIBER 4 GM PACKET GT SCH (21:00)
[2022-05-30] MEDS: RIVAROXABAN 10 MG TABLET GT SCH (21:00)
[2022-05-30 22:11] VITALS: O2SAT 97
[2022-05-31] MEDS: FAMOTIDINE 20 MG TABLET GT SCH ×2 (06:41→18:32)
[2022-05-31] MEDS: BISACODYL 10 MG SUPP.RECT RC PRN (06:41)
[2022-05-31 07:29] VITALS: TEMP 98.4
[2022-05-31] MEDS: levETIRAcetam 500 MG/5 ML LIQUID UDC GT SCH ×2 (08:38→20:06)
[2022-05-31] MEDS: LACOSAMIDE 100 MG/10 ML UDC GT SCH ×2 (08:38→20:06)
[2022-05-31] MEDS: TIZANIDINE HCL 4 MG TABLET GT SCH ×2 (08:39→18:32)
[2022-05-31] MEDS: REMEDY ESSENTIAL ZINC PASTE 113 GM TP SCH ×2 (08:39→21:55)
[2022-05-31] MEDS: ACIDOPHILUS/BULGARICUS CHEW TAB GT SCH ×2 (08:39→21:53)
[2022-05-31] MEDS: [UNRECOGNIZED DRUG - OTHER] TP SCH (08:39)
[2022-05-31] MEDS: METOCLOPRAMIDE HCL 10 MG TABLET GT SCH ×3 (08:39→18:32)
[2022-05-31] MEDS: HYDROGEN PEROXIDE 3% 118 ML BOTTLE TOP SCH ×2 (08:45→20:56)
[2022-05-31 14:57] VITALS: O2SAT 98
[2022-05-31] MEDS: VITAL AF 1.2 1,000 ML LIQUID GT PRN (18:31)
[2022-05-31 20:00] VITALS: TEMP 97.8
[2022-05-31] MEDS: RIVAROXABAN 10 MG TABLET GT SCH (21:00)
[2022-05-31] MEDS: MELATONIN 5MG TABLET GT SCH (21:53)
[2022-05-31] MEDS: NUTRISOURCE FIBER 4 GM PACKET GT SCH (21:53)
[2022-05-31 22:15] VITALS: O2SAT 97
[2022-06-01] MEDS: FAMOTIDINE 20 MG TABLET GT SCH ×2 (05:51→18:55)
[2022-06-01 07:32] VITALS: TEMP 98.6
[2022-06-01] MEDS: LACOSAMIDE 100 MG/10 ML UDC GT SCH ×2 (08:00→20:27)
[2022-06-01] MEDS: levETIRAcetam 500 MG/5 ML LIQUID UDC GT SCH ×2 (08:00→20:27)
[2022-06-01] MEDS: ACIDOPHILUS/BULGARICUS CHEW TAB GT SCH ×2 (09:33→21:00)
[2022-06-01] MEDS: METOCLOPRAMIDE HCL 10 MG TABLET GT SCH ×3 (09:34→18:56)
[2022-06-01] MEDS: TIZANIDINE HCL 4 MG TABLET GT SCH ×2 (09:34→18:56)
[2022-06-01] MEDS: REMEDY ESSENTIAL ZINC PASTE 113 GM TP SCH ×2 (09:35→21:00)
[2022-06-01 10:30] VITALS: O2SAT 98
[2022-06-01] MEDS: HYDROGEN PEROXIDE 3% 118 ML BOTTLE TOP SCH ×2 (10:30→21:09)
[2022-06-01 19:30] VITALS: O2SAT 97
[2022-06-01 20:51] VITALS: TEMP 97.7
[2022-06-01] MEDS: MELATONIN 5MG TABLET GT SCH (21:00)
[2022-06-01] MEDS: NUTRISOURCE FIBER 4 GM PACKET GT SCH (21:00)
[2022-06-01] MEDS: RIVAROXABAN 10 MG TABLET GT SCH (21:00)
[2022-06-02] MEDS: VITAL AF 1.2 1,000 ML LIQUID GT PRN (04:39)
[2022-06-02] MEDS: FAMOTIDINE 20 MG TABLET GT SCH ×2 (05:47→18:41)
[2022-06-02 07:28] VITALS: TEMP 97.7
[2022-06-02] MEDS: LACOSAMIDE 100 MG/10 ML UDC GT SCH ×2 (08:00→20:53)
[2022-06-02] MEDS: levETIRAcetam 500 MG/5 ML LIQUID UDC GT SCH ×2 (08:00→20:53)
[2022-06-02 08:25] VITALS: O2SAT 98
[2022-06-02] MEDS: HYDROGEN PEROXIDE 3% 118 ML BOTTLE TOP SCH ×2 (09:00→20:15)
[2022-06-02] MEDS: METOCLOPRAMIDE HCL 10 MG TABLET GT SCH ×3 (09:53→18:41)
[2022-06-02] MEDS: [UNRECOGNIZED DRUG - OTHER] TP SCH (09:53)
[2022-06-02] MEDS: TIZANIDINE HCL 4 MG TABLET GT SCH ×2 (09:53→18:41)
[2022-06-02] MEDS: REMEDY ESSENTIAL ZINC PASTE 113 GM TP SCH ×2 (09:53→21:54)
[2022-06-02] MEDS: ACIDOPHILUS/BULGARICUS CHEW TAB GT SCH ×2 (09:53→21:54)
[2022-06-02] MEDS: RIVAROXABAN 10 MG TABLET GT SCH (21:00)
[2022-06-02] MEDS: NUTRISOURCE FIBER 4 GM PACKET GT SCH (21:54)
[2022-06-02] MEDS: MELATONIN 5MG TABLET GT SCH (21:54)
[2022-06-03] MEDS: FAMOTIDINE 20 MG TABLET GT SCH ×2 (06:58→18:36)
[2022-06-03] MEDS: HYDROGEN PEROXIDE 3% 118 ML BOTTLE TOP SCH ×2 (07:48→20:33)
[2022-06-03 07:53] VITALS: TEMP 98.6
[2022-06-03] MEDS: ACIDOPHILUS/BULGARICUS CHEW TAB GT SCH ×2 (08:45→21:00)
[2022-06-03] MEDS: levETIRAcetam 500 MG/5 ML LIQUID UDC GT SCH ×2 (08:45→20:00)
[2022-06-03] MEDS: LACOSAMIDE 100 MG/10 ML UDC GT SCH ×2 (08:45→20:00)
[2022-06-03] MEDS: METOCLOPRAMIDE HCL 10 MG TABLET GT SCH ×3 (08:46→18:36)
[2022-06-03] MEDS: REMEDY ESSENTIAL ZINC PASTE 113 GM TP SCH ×2 (08:46→21:00)
[2022-06-03] MEDS: TIZANIDINE HCL 4 MG TABLET GT SCH ×2 (08:46→18:36)
[2022-06-03 10:30] VITALS: O2SAT 98
[2022-06-03] MEDS: VITAL AF 1.2 1,000 ML LIQUID GT PRN (13:04)
[2022-06-03 20:00] VITALS: TEMP 97.2
[2022-06-03 20:40] VITALS: O2SAT 98
[2022-06-03] MEDS: RIVAROXABAN 10 MG TABLET GT SCH (21:00)
[2022-06-03] MEDS: NUTRISOURCE FIBER 4 GM PACKET GT SCH (21:00)
[2022-06-03] MEDS: MELATONIN 5MG TABLET GT SCH (21:00)
[2022-06-04] MEDS: FAMOTIDINE 20 MG TABLET GT SCH ×2 (05:29→18:36)
[2022-06-04] MEDS: BISACODYL 10 MG SUPP.RECT RC PRN (05:30)
[2022-06-04 07:59] VITALS: TEMP 98.3
[2022-06-04] MEDS: LACOSAMIDE 100 MG/10 ML UDC GT SCH ×2 (08:30→20:08)
[2022-06-04] MEDS: levETIRAcetam 500 MG/5 ML LIQUID UDC GT SCH ×2 (08:30→20:07)
[2022-06-04 08:44] VITALS: O2SAT 98
[2022-06-04] MEDS: HYDROGEN PEROXIDE 3% 118 ML BOTTLE TOP SCH ×2 (08:44→20:17)
[2022-06-04] MEDS: ACIDOPHILUS/BULGARICUS CHEW TAB GT SCH ×2 (08:57→21:00)
[2022-06-04] MEDS: TIZANIDINE HCL 4 MG TABLET GT SCH ×2 (08:57→18:36)
[2022-06-04] MEDS: REMEDY ESSENTIAL ZINC PASTE 113 GM TP SCH ×2 (08:57→21:00)
[2022-06-04] MEDS: METOCLOPRAMIDE HCL 10 MG TABLET GT SCH ×3 (08:57→18:36)
[2022-06-04] MEDS: [UNRECOGNIZED DRUG - OTHER] TP SCH (08:57)
[2022-06-04] MEDS: VITAL AF 1.2 1,000 ML LIQUID GT PRN (19:05)
[2022-06-04 20:30] VITALS: O2SAT 98
[2022-06-04 20:39] VITALS: TEMP 97.7
[2022-06-04] MEDS: RIVAROXABAN 10 MG TABLET GT SCH (21:00)
[2022-06-04] MEDS: NUTRISOURCE FIBER 4 GM PACKET GT SCH (21:00)
[2022-06-04] MEDS: MELATONIN 5MG TABLET GT SCH (21:00)
[2022-06-05] MEDS: FAMOTIDINE 20 MG TABLET GT SCH ×2 (05:23→18:30)
[2022-06-05] MEDS: HYDROGEN PEROXIDE 3% 118 ML BOTTLE TOP SCH ×2 (07:51→21:00)
[2022-06-05] MEDS: REMEDY ESSENTIAL ZINC PASTE 113 GM TP SCH ×2 (08:49→21:00)
[2022-06-05] MEDS: TIZANIDINE HCL 4 MG TABLET GT SCH ×2 (08:49→18:30)
[2022-06-05] MEDS: NEOMY/BACITRA/POLYMYXIN B OINT UD PACKET TP SCH ×2 (08:49→21:00)
[2022-06-05] MEDS: levETIRAcetam 500 MG/5 ML LIQUID UDC GT SCH ×2 (08:49→20:11)
[2022-06-05] MEDS: METOCLOPRAMIDE HCL 10 MG TABLET GT SCH ×3 (08:49→18:30)
[2022-06-05] MEDS: ACIDOPHILUS/BULGARICUS CHEW TAB GT SCH ×2 (08:49→21:00)
[2022-06-05] MEDS: LACOSAMIDE 100 MG/10 ML UDC GT SCH ×2 (08:49→20:11)
[2022-06-05 13:30] VITALS: O2SAT 98
[2022-06-05 20:00] VITALS: TEMP 98.5
[2022-06-05] MEDS: RIVAROXABAN 10 MG TABLET GT SCH (21:00)
[2022-06-05] MEDS: NUTRISOURCE FIBER 4 GM PACKET GT SCH (21:00)
[2022-06-05] MEDS: MELATONIN 5MG TABLET GT SCH (21:00)
[2022-06-05 23:07] VITALS: O2SAT 98
[2022-06-06] MEDS: VITAL AF 1.2 1,000 ML LIQUID GT PRN (05:21)
[2022-06-06] MEDS: FAMOTIDINE 20 MG TABLET GT SCH ×2 (05:21→18:30)
[2022-06-06] MEDS: HYDROGEN PEROXIDE 3% 118 ML BOTTLE TOP SCH ×2 (07:30→20:41)
[2022-06-06 07:33] VITALS: O2SAT 98
[2022-06-06] MEDS: ACIDOPHILUS/BULGARICUS CHEW TAB GT SCH ×2 (08:21→21:46)
[2022-06-06] MEDS: levETIRAcetam 500 MG/5 ML LIQUID UDC GT SCH ×2 (08:21→20:08)
[2022-06-06] MEDS: METOCLOPRAMIDE HCL 10 MG TABLET GT SCH ×3 (08:21→18:30)
[2022-06-06] MEDS: LACOSAMIDE 100 MG/10 ML UDC GT SCH ×2 (08:21→20:08)
[2022-06-06] MEDS: TIZANIDINE HCL 4 MG TABLET GT SCH ×2 (08:21→18:30)
[2022-06-06] MEDS: REMEDY ESSENTIAL ZINC PASTE 113 GM TP SCH ×2 (08:22→21:48)
[2022-06-06] MEDS: [UNRECOGNIZED DRUG - OTHER] TP SCH (08:22)
[2022-06-06] MEDS: NEOMY/BACITRA/POLYMYXIN B OINT UD PACKET TP SCH ×2 (09:00→21:48)
[2022-06-06 11:15] VITALS: TEMP 98.6
[2022-06-06 13:29] VITALS: O2SAT 98
[2022-06-06 20:41] VITALS: O2SAT 99
[2022-06-06] MEDS: NUTRISOURCE FIBER 4 GM PACKET GT SCH (21:47)
[2022-06-06] MEDS: MELATONIN 5MG TABLET GT SCH (21:47)
[2022-06-06] MEDS: RIVAROXABAN 10 MG TABLET GT SCH (21:47)
[2022-06-06 23:30] VITALS: TEMP 98.4
[2022-06-07] MEDS: ONDANSETRON HCL 4 MG TABLET GT PRN (05:00)
[2022-06-07] MEDS: FAMOTIDINE 20 MG TABLET GT SCH ×2 (05:44→18:55)
[2022-06-07] MEDS: VITAL AF 1.2 1,000 ML LIQUID GT PRN (05:45)
[2022-06-07] MEDS: levETIRAcetam 500 MG/5 ML LIQUID UDC GT SCH ×2 (08:09→20:00)
[2022-06-07] MEDS: LACOSAMIDE 100 MG/10 ML UDC GT SCH ×2 (08:10→20:00)
[2022-06-07] MEDS: METOCLOPRAMIDE HCL 10 MG TABLET GT SCH ×3 (08:11→18:55)
[2022-06-07] MEDS: ACIDOPHILUS/BULGARICUS CHEW TAB GT SCH ×2 (08:11→21:58)
[2022-06-07] MEDS: TIZANIDINE HCL 4 MG TABLET GT SCH ×2 (08:11→18:55)
[2022-06-07] MEDS: REMEDY ESSENTIAL ZINC PASTE 113 GM TP SCH ×2 (08:11→21:59)
[2022-06-07] MEDS: NEOMY/BACITRA/POLYMYXIN B OINT UD PACKET TP SCH ×2 (08:11→21:59)
[2022-06-07] MEDS: HYDROGEN PEROXIDE 3% 118 ML BOTTLE TOP SCH ×2 (09:00→20:53)
[2022-06-07 11:08] VITALS: TEMP 97
[2022-06-07 11:10] VITALS: O2SAT 98
[2022-06-07 20:00] VITALS: TEMP 98.2
[2022-06-07 21:03] VITALS: O2SAT 98
[2022-06-07] MEDS: MELATONIN 5MG TABLET GT SCH (21:58)
[2022-06-07] MEDS: NUTRISOURCE FIBER 4 GM PACKET GT SCH (21:58)
[2022-06-07] MEDS: RIVAROXABAN 10 MG TABLET GT SCH (21:59)
[2022-06-08] MEDS: FAMOTIDINE 20 MG TABLET GT SCH ×2 (05:14→18:48)
[2022-06-08 07:37] VITALS: TEMP 98.5
[2022-06-08] MEDS: LACOSAMIDE 100 MG/10 ML UDC GT SCH ×2 (08:00→20:11)
[2022-06-08] MEDS: levETIRAcetam 500 MG/5 ML LIQUID UDC GT SCH ×2 (08:00→20:11)
[2022-06-08] MEDS: HYDROGEN PEROXIDE 3% 118 ML BOTTLE TOP SCH ×2 (09:00→19:21)
[2022-06-08] MEDS: NEOMY/BACITRA/POLYMYXIN B OINT UD PACKET TP SCH ×2 (09:14→21:00)
[2022-06-08] MEDS: ACIDOPHILUS/BULGARICUS CHEW TAB GT SCH ×2 (09:14→21:00)
[2022-06-08] MEDS: METOCLOPRAMIDE HCL 10 MG TABLET GT SCH ×3 (09:14→18:48)
[2022-06-08] MEDS: TIZANIDINE HCL 4 MG TABLET GT SCH ×2 (09:14→18:48)
[2022-06-08] MEDS: [UNRECOGNIZED DRUG - OTHER] TP SCH (09:14)
[2022-06-08] MEDS: REMEDY ESSENTIAL ZINC PASTE 113 GM TP SCH ×2 (09:14→21:00)
[2022-06-08 11:51] VITALS: O2SAT 98
[2022-06-08 20:00] VITALS: TEMP 98.6
[2022-06-08] MEDS: RIVAROXABAN 10 MG TABLET GT SCH (21:00)
[2022-06-08] MEDS: NUTRISOURCE FIBER 4 GM PACKET GT SCH (21:00)
[2022-06-08] MEDS: MELATONIN 5MG TABLET GT SCH (21:00)
[2022-06-08 23:37] VITALS: O2SAT 99
[2022-06-09] MEDS: FAMOTIDINE 20 MG TABLET GT SCH ×2 (05:17→18:01)
[2022-06-09] MEDS: HYDROGEN PEROXIDE 3% 118 ML BOTTLE TOP SCH ×2 (07:20→21:00)
[2022-06-09 08:00] VITALS: TEMP 98
[2022-06-09] MEDS: levETIRAcetam 500 MG/5 ML LIQUID UDC GT SCH ×2 (08:59→20:09)
[2022-06-09] MEDS: METOCLOPRAMIDE HCL 10 MG TABLET GT SCH ×3 (08:59→18:01)
[2022-06-09] MEDS: ACIDOPHILUS/BULGARICUS CHEW TAB GT SCH ×2 (08:59→21:00)
[2022-06-09] MEDS: LACOSAMIDE 100 MG/10 ML UDC GT SCH ×2 (08:59→20:09)
[2022-06-09] MEDS: TIZANIDINE HCL 4 MG TABLET GT SCH ×2 (08:59→18:01)
[2022-06-09] MEDS: NEOMY/BACITRA/POLYMYXIN B OINT UD PACKET TP SCH ×2 (08:59→21:00)
[2022-06-09] MEDS: REMEDY ESSENTIAL ZINC PASTE 113 GM TP SCH ×2 (10:00→21:00)
[2022-06-09] MEDS: VITAL AF 1.2 1,000 ML LIQUID GT PRN (10:05)
[2022-06-09 10:30] VITALS: O2SAT 99
[2022-06-09 20:00] VITALS: TEMP 97.6
[2022-06-09] MEDS: MELATONIN 5MG TABLET GT SCH (21:00)
[2022-06-09] MEDS: NUTRISOURCE FIBER 4 GM PACKET GT SCH (21:00)
[2022-06-09] MEDS: RIVAROXABAN 10 MG TABLET GT SCH (21:00)
[2022-06-09 21:30] VITALS: O2SAT 99
[2022-06-10] MEDS: FAMOTIDINE 20 MG TABLET GT SCH ×2 (05:31→18:32)
[2022-06-10 07:47] VITALS: TEMP 98.3
[2022-06-10] MEDS: HYDROGEN PEROXIDE 3% 118 ML BOTTLE TOP SCH ×2 (08:23→19:15)
[2022-06-10] MEDS: TIZANIDINE HCL 4 MG TABLET GT SCH ×2 (08:55→18:32)
[2022-06-10] MEDS: LACOSAMIDE 100 MG/10 ML UDC GT SCH ×2 (08:55→20:15)
[2022-06-10] MEDS: NEOMY/BACITRA/POLYMYXIN B OINT UD PACKET TP SCH ×2 (08:55→21:53)
[2022-06-10] MEDS: METOCLOPRAMIDE HCL 10 MG TABLET GT SCH ×3 (08:55→18:32)
[2022-06-10] MEDS: [UNRECOGNIZED DRUG - OTHER] TP SCH (08:55)
[2022-06-10] MEDS: levETIRAcetam 500 MG/5 ML LIQUID UDC GT SCH ×2 (08:55→20:15)
[2022-06-10] MEDS: REMEDY ESSENTIAL ZINC PASTE 113 GM TP SCH ×2 (08:55→21:53)
[2022-06-10] MEDS: ACIDOPHILUS/BULGARICUS CHEW TAB GT SCH ×2 (08:55→21:53)
[2022-06-10 10:50] VITALS: O2SAT 99
[2022-06-10] MEDS: VITAL AF 1.2 1,000 ML LIQUID GT PRN (12:10)
[2022-06-10 20:14] VITALS: TEMP 98.4
[2022-06-10 20:40] VITALS: O2SAT 99
[2022-06-10] MEDS: MELATONIN 5MG TABLET GT SCH (21:53)
[2022-06-10] MEDS: NUTRISOURCE FIBER 4 GM PACKET GT SCH (21:53)
[2022-06-10] MEDS: RIVAROXABAN 10 MG TABLET GT SCH (21:54)
[2022-06-11] MEDS: FAMOTIDINE 20 MG TABLET GT SCH ×2 (05:28→18:53)
[2022-06-11 07:50] VITALS: O2SAT 99
[2022-06-11 08:00] VITALS: TEMP 98.1
[2022-06-11] MEDS: levETIRAcetam 500 MG/5 ML LIQUID UDC GT SCH ×2 (08:00→20:06)
[2022-06-11] MEDS: LACOSAMIDE 100 MG/10 ML UDC GT SCH ×2 (08:00→20:06)
[2022-06-11] MEDS: ACIDOPHILUS/BULGARICUS CHEW TAB GT SCH ×2 (09:16→21:00)
[2022-06-11] MEDS: METOCLOPRAMIDE HCL 10 MG TABLET GT SCH ×3 (09:16→18:53)
[2022-06-11] MEDS: REMEDY ESSENTIAL ZINC PASTE 113 GM TP SCH ×2 (09:19→21:00)
[2022-06-11] MEDS: NEOMY/BACITRA/POLYMYXIN B OINT UD PACKET TP SCH ×2 (09:19→21:00)
[2022-06-11] MEDS: TIZANIDINE HCL 4 MG TABLET GT SCH ×2 (09:19→18:53)
[2022-06-11] MEDS: HYDROGEN PEROXIDE 3% 118 ML BOTTLE TOP SCH ×2 (09:30→21:00)
[2022-06-11 20:00] VITALS: TEMP 97.4
[2022-06-11] MEDS: MELATONIN 5MG TABLET GT SCH (21:00)
[2022-06-11] MEDS: RIVAROXABAN 10 MG TABLET GT SCH (21:00)
[2022-06-11] MEDS: NUTRISOURCE FIBER 4 GM PACKET GT SCH (21:00)
[2022-06-12] MEDS: FAMOTIDINE 20 MG TABLET GT SCH ×2 (05:43→18:23)
[2022-06-12 07:50] VITALS: TEMP 98.5
[2022-06-12] MEDS: LACOSAMIDE 100 MG/10 ML UDC GT SCH ×2 (08:00→20:00)
[2022-06-12] MEDS: levETIRAcetam 500 MG/5 ML LIQUID UDC GT SCH ×2 (08:00→20:00)
[2022-06-12] MEDS: HYDROGEN PEROXIDE 3% 118 ML BOTTLE TOP SCH ×2 (08:23→21:27)
[2022-06-12] MEDS: METOCLOPRAMIDE HCL 10 MG TABLET GT SCH ×3 (09:12→18:23)
[2022-06-12] MEDS: ACIDOPHILUS/BULGARICUS CHEW TAB GT SCH ×2 (09:12→21:00)
[2022-06-12] MEDS: [UNRECOGNIZED DRUG - OTHER] TP SCH (09:12)
[2022-06-12] MEDS: TIZANIDINE HCL 4 MG TABLET GT SCH ×2 (09:12→18:24)
[2022-06-12] MEDS: REMEDY ESSENTIAL ZINC PASTE 113 GM TP SCH ×2 (09:12→21:00)
[2022-06-12] MEDS: NEOMY/BACITRA/POLYMYXIN B OINT UD PACKET TP SCH ×2 (09:12→21:00)
[2022-06-12 10:25] VITALS: O2SAT 97
[2022-06-12] MEDS: VITAL AF 1.2 1,000 ML LIQUID GT PRN (18:24)
[2022-06-12 20:00] VITALS: TEMP 97.9
[2022-06-12 21:00] VITALS: O2SAT 99
[2022-06-12] MEDS: MELATONIN 5MG TABLET GT SCH (21:00)
[2022-06-12] MEDS: RIVAROXABAN 10 MG TABLET GT SCH (21:00)
[2022-06-12] MEDS: NUTRISOURCE FIBER 4 GM PACKET GT SCH (21:00)
[2022-06-13] MEDS: FAMOTIDINE 20 MG TABLET GT SCH ×2 (06:10→18:45)
[2022-06-13 07:05] VITALS: O2SAT 98
[2022-06-13 07:13] VITALS: TEMP 97.7
[2022-06-13] MEDS: levETIRAcetam 500 MG/5 ML LIQUID UDC GT SCH ×2 (08:20→19:54)
[2022-06-13] MEDS: NEOMY/BACITRA/POLYMYXIN B OINT UD PACKET TP SCH ×2 (08:21→21:59)
[2022-06-13] MEDS: LACOSAMIDE 100 MG/10 ML UDC GT SCH ×2 (08:21→19:54)
[2022-06-13] MEDS: TIZANIDINE HCL 4 MG TABLET GT SCH ×2 (08:21→18:45)
[2022-06-13] MEDS: REMEDY ESSENTIAL ZINC PASTE 113 GM TP SCH ×2 (08:21→21:59)
[2022-06-13] MEDS: METOCLOPRAMIDE HCL 10 MG TABLET GT SCH ×3 (08:21→18:45)
[2022-06-13] MEDS: ACIDOPHILUS/BULGARICUS CHEW TAB GT SCH ×2 (08:21→21:57)
[2022-06-13] MEDS: HYDROGEN PEROXIDE 3% 118 ML BOTTLE TOP SCH ×2 (09:00→21:20)
[2022-06-13] MEDS: VITAL AF 1.2 1,000 ML LIQUID GT PRN (16:44)
[2022-06-13 17:00] VITALS: O2SAT 98
[2022-06-13 20:00] VITALS: TEMP 98
[2022-06-13] MEDS: NUTRISOURCE FIBER 4 GM PACKET GT SCH (21:58)
[2022-06-13] MEDS: MELATONIN 5MG TABLET GT SCH (21:58)
[2022-06-13] MEDS: RIVAROXABAN 10 MG TABLET GT SCH (21:59)
[2022-06-13 22:00] VITALS: O2SAT 99
[2022-06-14] MEDS: FAMOTIDINE 20 MG TABLET GT SCH ×2 (05:54→18:53)
[2022-06-14 07:08] VITALS: TEMP 98.1
[2022-06-14] MEDS: levETIRAcetam 500 MG/5 ML LIQUID UDC GT SCH ×2 (08:00→19:51)
[2022-06-14] MEDS: LACOSAMIDE 100 MG/10 ML UDC GT SCH ×2 (08:00→19:51)
[2022-06-14] MEDS: HYDROGEN PEROXIDE 3% 118 ML BOTTLE TOP SCH ×2 (08:55→21:02)
[2022-06-14] MEDS: TIZANIDINE HCL 4 MG TABLET GT SCH ×2 (09:06→18:53)
[2022-06-14] MEDS: REMEDY ESSENTIAL ZINC PASTE 113 GM TP SCH ×2 (09:06→21:04)
[2022-06-14] MEDS: ACIDOPHILUS/BULGARICUS CHEW TAB GT SCH ×2 (09:06→21:03)
[2022-06-14] MEDS: [UNRECOGNIZED DRUG - OTHER] TP SCH (09:06)
[2022-06-14] MEDS: NEOMY/BACITRA/POLYMYXIN B OINT UD PACKET TP SCH ×2 (09:06→21:04)
[2022-06-14] MEDS: METOCLOPRAMIDE HCL 10 MG TABLET GT SCH ×3 (09:06→18:53)
[2022-06-14 10:50] VITALS: O2SAT 97
[2022-06-14 20:00] VITALS: TEMP 98.8
[2022-06-14] MEDS: MELATONIN 5MG TABLET GT SCH (21:03)
[2022-06-14] MEDS: NUTRISOURCE FIBER 4 GM PACKET GT SCH (21:03)
[2022-06-14] MEDS: RIVAROXABAN 10 MG TABLET GT SCH (21:04)
[2022-06-14 21:09] VITALS: O2SAT 99
[2022-06-15] MEDS: FAMOTIDINE 20 MG TABLET GT SCH ×2 (06:27→18:23)
[2022-06-15 07:18] VITALS: TEMP 97.7
[2022-06-15] MEDS: levETIRAcetam 500 MG/5 ML LIQUID UDC GT SCH ×2 (08:00→19:58)
[2022-06-15] MEDS: LACOSAMIDE 100 MG/10 ML UDC GT SCH ×2 (08:00→19:58)
[2022-06-15] MEDS: METOCLOPRAMIDE HCL 10 MG TABLET GT SCH ×3 (09:42→18:23)
[2022-06-15] MEDS: REMEDY ESSENTIAL ZINC PASTE 113 GM TP SCH ×2 (09:42→21:00)
[2022-06-15] MEDS: ACIDOPHILUS/BULGARICUS CHEW TAB GT SCH ×2 (09:42→21:00)
[2022-06-15] MEDS: TIZANIDINE HCL 4 MG TABLET GT SCH ×2 (09:42→18:23)
[2022-06-15 10:10] VITALS: O2SAT 98
[2022-06-15] MEDS: HYDROGEN PEROXIDE 3% 118 ML BOTTLE TOP SCH ×2 (10:10→20:58)
[2022-06-15 20:00] VITALS: TEMP 98.4
[2022-06-15 20:25] VITALS: O2SAT 99
[2022-06-15] MEDS: MELATONIN 5MG TABLET GT SCH (21:00)
[2022-06-15] MEDS: NUTRISOURCE FIBER 4 GM PACKET GT SCH (21:00)
[2022-06-15] MEDS: RIVAROXABAN 10 MG TABLET GT SCH (21:00)
[2022-06-16] MEDS: FAMOTIDINE 20 MG TABLET GT SCH ×2 (05:23→17:33)
[2022-06-16 07:32] VITALS: TEMP 98
[2022-06-16] MEDS: LACOSAMIDE 100 MG/10 ML UDC GT SCH ×2 (08:00→20:07)
[2022-06-16] MEDS: levETIRAcetam 500 MG/5 ML LIQUID UDC GT SCH ×2 (08:00→20:08)
[2022-06-16] MEDS: [UNRECOGNIZED DRUG - OTHER] TP SCH (09:19)
[2022-06-16] MEDS: METOCLOPRAMIDE HCL 10 MG TABLET GT SCH ×3 (09:19→17:33)
[2022-06-16] MEDS: TIZANIDINE HCL 4 MG TABLET GT SCH ×2 (09:19→17:33)
[2022-06-16] MEDS: ACIDOPHILUS/BULGARICUS CHEW TAB GT SCH ×2 (09:19→20:08)
[2022-06-16] MEDS: REMEDY ESSENTIAL ZINC PASTE 113 GM TP SCH ×2 (09:19→20:09)
[2022-06-16] MEDS: HYDROGEN PEROXIDE 3% 118 ML BOTTLE TOP SCH ×2 (09:24→20:44)
[2022-06-16 20:00] VITALS: TEMP 98.6
[2022-06-16] MEDS: NUTRISOURCE FIBER 4 GM PACKET GT SCH (20:08)
[2022-06-16] MEDS: MELATONIN 5MG TABLET GT SCH (20:08)
[2022-06-16 20:15] VITALS: O2SAT 99
[2022-06-16] MEDS: RIVAROXABAN 10 MG TABLET GT SCH (21:00)
[2022-06-17] MEDS: FAMOTIDINE 20 MG TABLET GT SCH ×2 (05:34→18:44)
[2022-06-17 07:54] VITALS: TEMP 97.2
[2022-06-17] MEDS: levETIRAcetam 500 MG/5 ML LIQUID UDC GT SCH ×2 (08:20→20:01)
[2022-06-17] MEDS: ACIDOPHILUS/BULGARICUS CHEW TAB GT SCH ×2 (08:20→20:01)
[2022-06-17] MEDS: LACOSAMIDE 100 MG/10 ML UDC GT SCH ×2 (08:20→20:01)
[2022-06-17] MEDS: METOCLOPRAMIDE HCL 10 MG TABLET GT SCH ×3 (08:21→18:44)
[2022-06-17] MEDS: TIZANIDINE HCL 4 MG TABLET GT SCH ×2 (08:21→18:44)
[2022-06-17] MEDS: REMEDY ESSENTIAL ZINC PASTE 113 GM TP SCH ×2 (08:22→21:50)
[2022-06-17 08:54] VITALS: O2SAT 99
[2022-06-17] MEDS: HYDROGEN PEROXIDE 3% 118 ML BOTTLE TOP SCH ×2 (09:09→19:29)
[2022-06-17 20:00] VITALS: TEMP 97.7
[2022-06-17] MEDS: MELATONIN 5MG TABLET GT SCH (20:01)
[2022-06-17] MEDS: NUTRISOURCE FIBER 4 GM PACKET GT SCH (20:01)
[2022-06-17 20:20] VITALS: O2SAT 99
[2022-06-17] MEDS: RIVAROXABAN 10 MG TABLET GT SCH (21:49)
[2022-06-18] MEDS: FAMOTIDINE 20 MG TABLET GT SCH ×2 (05:25→18:45)
[2022-06-18 06:18] VITALS: O2SAT 99
[2022-06-18 08:18] VITALS: TEMP 98.7
[2022-06-18] MEDS: ACIDOPHILUS/BULGARICUS CHEW TAB GT SCH ×2 (08:40→21:18)
[2022-06-18] MEDS: METOCLOPRAMIDE HCL 10 MG TABLET GT SCH ×3 (08:40→18:46)
[2022-06-18] MEDS: levETIRAcetam 500 MG/5 ML LIQUID UDC GT SCH ×2 (08:40→20:00)
[2022-06-18] MEDS: TIZANIDINE HCL 4 MG TABLET GT SCH ×2 (08:40→18:46)
[2022-06-18] MEDS: [UNRECOGNIZED DRUG - OTHER] TP SCH (08:40)
[2022-06-18] MEDS: REMEDY ESSENTIAL ZINC PASTE 113 GM TP SCH ×2 (08:40→21:21)
[2022-06-18] MEDS: LACOSAMIDE 100 MG/10 ML UDC GT SCH ×2 (08:40→20:00)
[2022-06-18] MEDS: HYDROGEN PEROXIDE 3% 118 ML BOTTLE TOP SCH ×2 (09:00→19:13)
[2022-06-18 20:18] VITALS: TEMP 98.3
[2022-06-18 20:30] VITALS: O2SAT 99
[2022-06-18] MEDS: MELATONIN 5MG TABLET GT SCH (21:18)
[2022-06-18] MEDS: NUTRISOURCE FIBER 4 GM PACKET GT SCH (21:19)
[2022-06-18] MEDS: RIVAROXABAN 10 MG TABLET GT SCH (21:20)
[2022-06-19] MEDS: FAMOTIDINE 20 MG TABLET GT SCH ×2 (05:48→05:54)
[2022-06-19 07:18] VITALS: TEMP 98.5
[2022-06-19] MEDS: levETIRAcetam 500 MG/5 ML LIQUID UDC GT SCH ×2 (08:00→20:03)
[2022-06-19] MEDS: LACOSAMIDE 100 MG/10 ML UDC GT SCH ×2 (08:00→20:03)
[2022-06-19] MEDS: TIZANIDINE HCL 4 MG TABLET GT SCH ×2 (09:00→09:04)
[2022-06-19] MEDS: HYDROGEN PEROXIDE 3% 118 ML BOTTLE TOP SCH ×2 (09:00→21:25)
[2022-06-19] MEDS: METOCLOPRAMIDE HCL 10 MG TABLET GT SCH ×3 (09:00→12:12)
[2022-06-19] MEDS: ACIDOPHILUS/BULGARICUS CHEW TAB GT SCH ×2 (09:03→21:35)
[2022-06-19] MEDS: REMEDY ESSENTIAL ZINC PASTE 113 GM TP SCH ×2 (09:04→21:35)
[2022-06-19 20:00] VITALS: TEMP 98.5
[2022-06-19 21:02] VITALS: O2SAT 99
[2022-06-19] MEDS: RIVAROXABAN 10 MG TABLET GT SCH (21:34)
[2022-06-19] MEDS: MELATONIN 5MG TABLET GT SCH (21:35)
[2022-06-19] MEDS: NUTRISOURCE FIBER 4 GM PACKET GT SCH (21:35)
[2022-06-20] MEDS: FAMOTIDINE 20 MG TABLET GT SCH ×2 (05:56→18:48)
[2022-06-20 07:14] VITALS: TEMP 98.2
[2022-06-20] MEDS: levETIRAcetam 500 MG/5 ML LIQUID UDC GT SCH ×2 (08:00→20:00)
[2022-06-20] MEDS: LACOSAMIDE 100 MG/10 ML UDC GT SCH ×2 (08:00→20:00)
[2022-06-20] MEDS: HYDROGEN PEROXIDE 3% 118 ML BOTTLE TOP SCH ×2 (09:00→20:25)
[2022-06-20] MEDS: ACIDOPHILUS/BULGARICUS CHEW TAB GT SCH ×2 (09:00→21:52)
[2022-06-20] MEDS: [UNRECOGNIZED DRUG - OTHER] TP SCH (09:24)
[2022-06-20] MEDS: REMEDY ESSENTIAL ZINC PASTE 113 GM TP SCH ×2 (09:24→21:53)
[2022-06-20] MEDS: TIZANIDINE HCL 4 MG TABLET GT SCH ×2 (09:25→18:48)
[2022-06-20] MEDS: METOCLOPRAMIDE HCL 10 MG TABLET GT SCH ×3 (09:25→18:48)
[2022-06-20 11:44] VITALS: O2SAT 98
[2022-06-20 20:25] VITALS: O2SAT 99
[2022-06-20 20:39] VITALS: TEMP 98.2
[2022-06-20] MEDS: RIVAROXABAN 10 MG TABLET GT SCH (21:52)
[2022-06-20] MEDS: NUTRISOURCE FIBER 4 GM PACKET GT SCH (21:52)
[2022-06-20] MEDS: MELATONIN 5MG TABLET GT SCH (21:52)
[2022-06-21] MEDS: FAMOTIDINE 20 MG TABLET GT SCH ×2 (05:40→18:31)
[2022-06-21 07:18] VITALS: TEMP 98.7
[2022-06-21] MEDS: ACIDOPHILUS/BULGARICUS CHEW TAB GT SCH ×2 (08:21→21:00)
[2022-06-21] MEDS: LACOSAMIDE 100 MG/10 ML UDC GT SCH ×2 (08:21→20:00)
[2022-06-21] MEDS: levETIRAcetam 500 MG/5 ML LIQUID UDC GT SCH ×2 (08:21→20:00)
[2022-06-21] MEDS: METOCLOPRAMIDE HCL 10 MG TABLET GT SCH ×3 (08:21→18:31)
[2022-06-21] MEDS: TIZANIDINE HCL 4 MG TABLET GT SCH ×2 (08:22→18:31)
[2022-06-21] MEDS: REMEDY ESSENTIAL ZINC PASTE 113 GM TP SCH ×2 (08:22→21:00)
[2022-06-21 08:34] VITALS: O2SAT 98
[2022-06-21] MEDS: HYDROGEN PEROXIDE 3% 118 ML BOTTLE TOP SCH ×2 (08:34→21:42)
[2022-06-21 20:30] VITALS: O2SAT 99
[2022-06-21] MEDS: NUTRISOURCE FIBER 4 GM PACKET GT SCH (21:00)
[2022-06-21] MEDS: MELATONIN 5MG TABLET GT SCH (21:00)
[2022-06-21] MEDS: RIVAROXABAN 10 MG TABLET GT SCH (21:00)
[2022-06-21 21:32] VITALS: TEMP 98.3
[2022-06-22] MEDS: FAMOTIDINE 20 MG TABLET GT SCH ×2 (06:04→18:47)
[2022-06-22 06:29] VITALS: O2SAT 99
[2022-06-22 07:21] VITALS: TEMP 97.2
[2022-06-22 07:36] LABS: BASOPHILS % (AUTO) 0.4 % (0.0-2.0); EOSINOPHILS # (AUTO) 0.3 K/uL (0.0-0.7); EOSINOPHILS % (AUTO) 3.4 % (0.0-7.0); HEMATOCRIT 39.1 % (31.2-41.9); HEMOGLOBIN 13.2 g/dL (10.9-14.3); LYMPHOCYTES # (AUTO) 1.9 K/uL (0.8-4.8); LYMPHOCYTES % (AUTO) 22.7 % (20.5-51.5); MEAN CORPUSCULAR HEMOGLOBIN 30.5 uug (24.7-32.8); MEAN CORPUSCULAR HGB CONC 34 g/dL (32.3-35.6); MEAN CORPUSCULAR VOLUME 90.4 fL (75.5-95.3); MONOCYTES # (AUTO) 0.5 K/uL (0.1-1.30); NEUTROPHILS # (AUTO) 5.6 K/uL (1.8-8.9); NEUTROPHILS % (AUTO) 67.5 % (38.5-71.5); PLATELET COUNT (AUTO) 274 K/uL (179-408); RED BLOOD CELL COUNT(AUTO) 4.32 MIL/uL (3.63-4.92); RED CELL DISTRIBUTION WIDTH 12.9 % (12.3-17.7); WHITE BLOOD COUNT (AUTO) 8.3 K/uL (3.8-11.8)
[2022-06-22 07:41] VITALS: O2SAT 98
[2022-06-22] MEDS: HYDROGEN PEROXIDE 3% 118 ML BOTTLE TOP SCH ×2 (07:41→19:48)
[2022-06-22 07:50] LABS: DIFFERENTIAL COMMENT 1
[2022-06-22 07:56] LABS: CALCIUM 8.9 mg/dL (8.5-10.1); CARBON DIOXIDE 26 mmol/L (21-32); CHLORIDE 104 mmol/L (98-107); CREATININE 0.5 mg/dL (0.6-1.3); GLUCOSE 95 mg/dL (74-106); MAGNESIUM 2.1 mg/dL (1.8-2.4); PHOSPHOROUS 4.5 mg/dL (2.5-4.9); POTASSIUM 5.2 mmol/L (3.5-5.1); SODIUM SERUM 139 mmol/L (136-145); UREA NITROGEN, BLOOD 12 mg/dL (7-18)
[2022-06-22] MEDS: levETIRAcetam 500 MG/5 ML LIQUID UDC GT SCH ×2 (08:00→20:00)
[2022-06-22] MEDS: LACOSAMIDE 100 MG/10 ML UDC GT SCH ×2 (08:00→20:00)
[2022-06-22] MEDS: REMEDY ESSENTIAL ZINC PASTE 113 GM TP SCH ×2 (09:56→21:52)
[2022-06-22] MEDS: [UNRECOGNIZED DRUG - OTHER] TP SCH (09:56)
[2022-06-22] MEDS: ACIDOPHILUS/BULGARICUS CHEW TAB GT SCH ×2 (09:56→21:52)
[2022-06-22] MEDS: METOCLOPRAMIDE HCL 10 MG TABLET GT SCH ×3 (09:56→18:47)
[2022-06-22] MEDS: TIZANIDINE HCL 4 MG TABLET GT SCH ×2 (09:56→18:47)
[2022-06-22 20:00] VITALS: TEMP 98.2
[2022-06-22 20:30] VITALS: O2SAT 99
[2022-06-22] MEDS: NUTRISOURCE FIBER 4 GM PACKET GT SCH (21:52)
[2022-06-22] MEDS: RIVAROXABAN 10 MG TABLET GT SCH (21:52)
[2022-06-22] MEDS: MELATONIN 5MG TABLET GT SCH (21:52)
[2022-06-23] MEDS: FAMOTIDINE 20 MG TABLET GT SCH (05:44)
[2022-06-23 07:24] VITALS: TEMP 98.6
[2022-06-23] MEDS: levETIRAcetam 500 MG/5 ML LIQUID UDC GT SCH ×2 (08:00→20:00)
[2022-06-23] MEDS: LACOSAMIDE 100 MG/10 ML UDC GT SCH ×2 (08:00→20:00)
[2022-06-23] MEDS: HYDROGEN PEROXIDE 3% 118 ML BOTTLE TOP SCH ×2 (09:00→21:27)
[2022-06-23] MEDS: ACIDOPHILUS/BULGARICUS CHEW TAB GT SCH ×2 (09:18→20:05)
[2022-06-23] MEDS: METOCLOPRAMIDE HCL 10 MG TABLET GT SCH ×3 (09:18→18:30)
[2022-06-23] MEDS: TIZANIDINE HCL 4 MG TABLET GT SCH (09:18)
[2022-06-23] MEDS: REMEDY ESSENTIAL ZINC PASTE 113 GM TP SCH ×2 (09:18→20:06)
[2022-06-23 15:19] VITALS: O2SAT 98
[2022-06-23] MEDS: NUTRISOURCE FIBER 4 GM PACKET GT SCH (20:05)
[2022-06-23] MEDS: MELATONIN 5MG TABLET GT SCH (20:05)
[2022-06-23 20:14] VITALS: TEMP 97
[2022-06-23] MEDS: RIVAROXABAN 10 MG TABLET GT SCH (20:39)
[2022-06-23 22:36] VITALS: O2SAT 99
[2022-06-24] MEDS: FAMOTIDINE 20 MG TABLET GT SCH ×2 (05:09→18:45)
[2022-06-24 08:00] VITALS: TEMP 98.1
[2022-06-24] MEDS: LACOSAMIDE 100 MG/10 ML UDC GT SCH ×2 (08:00→20:00)
[2022-06-24] MEDS: levETIRAcetam 500 MG/5 ML LIQUID UDC GT SCH ×2 (08:00→20:00)
[2022-06-24] MEDS: HYDROGEN PEROXIDE 3% 118 ML BOTTLE TOP SCH ×2 (08:24→19:00)
[2022-06-24] MEDS: TIZANIDINE HCL 4 MG TABLET GT SCH ×2 (09:23→18:45)
[2022-06-24] MEDS: ACIDOPHILUS/BULGARICUS CHEW TAB GT SCH ×2 (09:23→20:01)
[2022-06-24] MEDS: [UNRECOGNIZED DRUG - OTHER] TP SCH (09:24)
[2022-06-24] MEDS: REMEDY ESSENTIAL ZINC PASTE 113 GM TP SCH ×2 (09:24→21:51)
[2022-06-24] MEDS: METOCLOPRAMIDE HCL 10 MG TABLET GT SCH ×3 (09:25→18:45)
[2022-06-24 10:50] VITALS: O2SAT 98
[2022-06-24] MEDS: NUTRISOURCE FIBER 4 GM PACKET GT SCH (20:01)
[2022-06-24 20:21] VITALS: TEMP 97.8
[2022-06-24] MEDS: RIVAROXABAN 10 MG TABLET GT SCH (21:00)
[2022-06-24] MEDS: MELATONIN 5MG TABLET GT SCH (21:51)
[2022-06-25] MEDS: FAMOTIDINE 20 MG TABLET GT SCH ×2 (05:10→18:47)
[2022-06-25 07:46] VITALS: TEMP 98.9
[2022-06-25] MEDS: levETIRAcetam 500 MG/5 ML LIQUID UDC GT SCH ×2 (08:13→20:08)
[2022-06-25] MEDS: LACOSAMIDE 100 MG/10 ML UDC GT SCH ×2 (08:13→20:08)
[2022-06-25] MEDS: METOCLOPRAMIDE HCL 10 MG TABLET GT SCH ×3 (08:14→18:47)
[2022-06-25] MEDS: ACIDOPHILUS/BULGARICUS CHEW TAB GT SCH ×2 (08:14→21:00)
[2022-06-25] MEDS: TIZANIDINE HCL 4 MG TABLET GT SCH ×2 (08:14→18:47)
[2022-06-25] MEDS: REMEDY ESSENTIAL ZINC PASTE 113 GM TP SCH ×2 (08:15→21:00)
[2022-06-25] MEDS: HYDROGEN PEROXIDE 3% 118 ML BOTTLE TOP SCH ×2 (08:30→21:06)
[2022-06-25 14:07] VITALS: O2SAT 98
[2022-06-25] MEDS: VITAL AF 1.2 1,000 ML LIQUID GT PRN (19:19)
[2022-06-25 20:11] VITALS: TEMP 97.3
[2022-06-25 20:20] VITALS: O2SAT 99
[2022-06-25] MEDS: RIVAROXABAN 10 MG TABLET GT SCH (21:00)
[2022-06-25] MEDS: NUTRISOURCE FIBER 4 GM PACKET GT SCH (21:00)
[2022-06-25] MEDS: MELATONIN 5MG TABLET GT SCH (21:00)
[2022-06-26] MEDS: FAMOTIDINE 20 MG TABLET GT SCH ×2 (06:26→18:48)
[2022-06-26 07:41] VITALS: TEMP 98.1
[2022-06-26 07:50] LABS: BASOPHILS % (AUTO) 0.4 % (0.0-2.0); EOSINOPHILS # (AUTO) 0.3 K/uL (0.0-0.7); EOSINOPHILS % (AUTO) 4.3 % (0.0-7.0); HEMATOCRIT 37.8 % (31.2-41.9); HEMOGLOBIN 12.4 g/dL (10.9-14.3); LYMPHOCYTES # (AUTO) 1.6 K/uL (0.8-4.8); LYMPHOCYTES % (AUTO) 22.6 % (20.5-51.5); MEAN CORPUSCULAR HEMOGLOBIN 29.6 uug (24.7-32.8); MEAN CORPUSCULAR HGB CONC 33 g/dL (32.3-35.6); MONOCYTES # (AUTO) 0.5 K/uL (0.1-1.30); MONOCYTES % (AUTO) 6.8 % (0.0-11.0); NEUTROPHILS # (AUTO) 4.8 K/uL (1.8-8.9); NEUTROPHILS % (AUTO) 65.9 % (38.5-71.5); PLATELET COUNT (AUTO) 250 K/uL (179-408); RED CELL DISTRIBUTION WIDTH 12.8 % (12.3-17.7); WHITE BLOOD COUNT (AUTO) 7.3 K/uL (3.8-11.8)
[2022-06-26] MEDS: levETIRAcetam 500 MG/5 ML LIQUID UDC GT SCH ×2 (08:00→20:00)
[2022-06-26] MEDS: LACOSAMIDE 100 MG/10 ML UDC GT SCH ×2 (08:00→20:00)
[2022-06-26 08:01] LABS: CALCIUM 9.5 mg/dL (8.5-10.1); CARBON DIOXIDE 30 mmol/L (21-32); CHLORIDE 106 mmol/L (98-107); CREATININE 0.5 mg/dL (0.6-1.3); GLUCOSE 93 mg/dL (74-106); MAGNESIUM 2.3 mg/dL (1.8-2.4); PHOSPHOROUS 4.3 mg/dL (2.5-4.9); POTASSIUM 4.4 mmol/L (3.5-5.1); SODIUM SERUM 142 mmol/L (136-145); UREA NITROGEN, BLOOD 11 mg/dL (7-18)
[2022-06-26 08:04] LABS: DIFFERENTIAL COMMENT 1
[2022-06-26] MEDS: HYDROGEN PEROXIDE 3% 118 ML BOTTLE TOP SCH ×2 (08:05→21:06)
[2022-06-26] MEDS: REMEDY ESSENTIAL ZINC PASTE 113 GM TP SCH ×2 (09:23→21:06)
[2022-06-26] MEDS: METOCLOPRAMIDE HCL 10 MG TABLET GT SCH ×3 (09:23→18:48)
[2022-06-26] MEDS: TIZANIDINE HCL 4 MG TABLET GT SCH ×2 (09:23→18:48)
[2022-06-26] MEDS: [UNRECOGNIZED DRUG - OTHER] TP SCH (09:23)
[2022-06-26] MEDS: ACIDOPHILUS/BULGARICUS CHEW TAB GT SCH ×2 (09:28→21:05)
[2022-06-26 15:03] VITALS: O2SAT 98
[2022-06-26 20:00] VITALS: TEMP 97.7
[2022-06-26] MEDS: MELATONIN 5MG TABLET GT SCH (21:05)
[2022-06-26] MEDS: NUTRISOURCE FIBER 4 GM PACKET GT SCH (21:05)
[2022-06-26] MEDS: RIVAROXABAN 10 MG TABLET GT SCH (21:06)
[2022-06-27] MEDS: FAMOTIDINE 20 MG TABLET GT SCH ×2 (06:52→17:39)
[2022-06-27 07:07] VITALS: TEMP 98.1
[2022-06-27 07:25] VITALS: O2SAT 98
[2022-06-27] MEDS: levETIRAcetam 500 MG/5 ML LIQUID UDC GT SCH ×2 (08:00→20:03)
[2022-06-27] MEDS: LACOSAMIDE 100 MG/10 ML UDC GT SCH ×2 (08:00→20:04)
[2022-06-27] MEDS: HYDROGEN PEROXIDE 3% 118 ML BOTTLE TOP SCH ×2 (08:26→20:23)
[2022-06-27] MEDS: REMEDY ESSENTIAL ZINC PASTE 113 GM TP SCH ×2 (09:00→21:00)
[2022-06-27] MEDS: ACIDOPHILUS/BULGARICUS CHEW TAB GT SCH ×2 (09:00→21:00)
[2022-06-27] MEDS: METOCLOPRAMIDE HCL 10 MG TABLET GT SCH ×3 (09:00→17:39)
[2022-06-27] MEDS: TIZANIDINE HCL 4 MG TABLET GT SCH ×2 (09:00→17:40)
[2022-06-27 15:26] VITALS: O2SAT 98
[2022-06-27 20:00] VITALS: TEMP 98.6
[2022-06-27] MEDS: VITAL AF 1.2 1,000 ML LIQUID GT PRN (20:04)
[2022-06-27 20:15] VITALS: O2SAT 98
[2022-06-27] MEDS: RIVAROXABAN 10 MG TABLET GT SCH (21:00)
[2022-06-27] MEDS: NUTRISOURCE FIBER 4 GM PACKET GT SCH (21:00)
[2022-06-27] MEDS: MELATONIN 5MG TABLET GT SCH (21:00)
[2022-06-28] MEDS: FAMOTIDINE 20 MG TABLET GT SCH ×2 (06:18→18:58)
[2022-06-28 07:36] VITALS: O2SAT 98
[2022-06-28] MEDS: HYDROGEN PEROXIDE 3% 118 ML BOTTLE TOP SCH ×2 (07:36→19:22)
[2022-06-28] MEDS: LACOSAMIDE 100 MG/10 ML UDC GT SCH ×2 (08:00→19:59)
[2022-06-28] MEDS: levETIRAcetam 500 MG/5 ML LIQUID UDC GT SCH ×2 (08:00→19:59)
[2022-06-28] MEDS: TIZANIDINE HCL 4 MG TABLET GT SCH ×2 (09:04→18:58)
[2022-06-28] MEDS: REMEDY ESSENTIAL ZINC PASTE 113 GM TP SCH ×2 (09:04→21:57)
[2022-06-28] MEDS: [UNRECOGNIZED DRUG - OTHER] TP SCH (09:04)
[2022-06-28] MEDS: METOCLOPRAMIDE HCL 10 MG TABLET GT SCH ×3 (09:04→18:58)
[2022-06-28] MEDS: ACIDOPHILUS/BULGARICUS CHEW TAB GT SCH ×2 (09:04→21:56)
[2022-06-28 14:50] VITALS: TEMP 98.1
[2022-06-28 20:30] VITALS: O2SAT 98
[2022-06-28 21:16] VITALS: TEMP 98.8
[2022-06-28] MEDS: NUTRISOURCE FIBER 4 GM PACKET GT SCH (21:56)
[2022-06-28] MEDS: MELATONIN 5MG TABLET GT SCH (21:56)
[2022-06-28] MEDS: RIVAROXABAN 10 MG TABLET GT SCH (21:57)
[2022-06-28] MEDS: VITAL AF 1.2 1,000 ML LIQUID GT PRN (23:20)
[2022-06-29] MEDS: FAMOTIDINE 20 MG TABLET GT SCH ×2 (05:31→18:48)
[2022-06-29 07:21] VITALS: TEMP 97.9
[2022-06-29] MEDS: HYDROGEN PEROXIDE 3% 118 ML BOTTLE TOP SCH ×2 (07:45→20:54)
[2022-06-29] MEDS: levETIRAcetam 500 MG/5 ML LIQUID UDC GT SCH ×2 (08:33→20:06)
[2022-06-29] MEDS: METOCLOPRAMIDE HCL 10 MG TABLET GT SCH ×3 (08:34→18:48)
[2022-06-29] MEDS: TIZANIDINE HCL 4 MG TABLET GT SCH ×2 (08:34→18:48)
[2022-06-29] MEDS: ACIDOPHILUS/BULGARICUS CHEW TAB GT SCH ×2 (08:34→21:35)
[2022-06-29] MEDS: LACOSAMIDE 100 MG/10 ML UDC GT SCH ×2 (08:34→20:06)
[2022-06-29] MEDS: REMEDY ESSENTIAL ZINC PASTE 113 GM TP SCH ×2 (08:35→21:36)
[2022-06-29 11:45] VITALS: O2SAT 98
[2022-06-29 20:00] VITALS: TEMP 98
[2022-06-29 21:07] VITALS: O2SAT 98
[2022-06-29] MEDS: RIVAROXABAN 10 MG TABLET GT SCH (21:32)
[2022-06-29] MEDS: MELATONIN 5MG TABLET GT SCH (21:35)
[2022-06-29] MEDS: NUTRISOURCE FIBER 4 GM PACKET GT SCH (21:36)
[2022-06-30] MEDS: FAMOTIDINE 20 MG TABLET GT SCH ×2 (05:43→18:58)
[2022-06-30 07:46] VITALS: TEMP 98.2
[2022-06-30] MEDS: LACOSAMIDE 100 MG/10 ML UDC GT SCH ×2 (08:29→20:00)
[2022-06-30] MEDS: ACIDOPHILUS/BULGARICUS CHEW TAB GT SCH ×2 (08:29→21:30)
[2022-06-30] MEDS: METOCLOPRAMIDE HCL 10 MG TABLET GT SCH ×3 (08:29→18:58)
[2022-06-30] MEDS: levETIRAcetam 500 MG/5 ML LIQUID UDC GT SCH ×2 (08:29→20:00)
[2022-06-30] MEDS: TIZANIDINE HCL 4 MG TABLET GT SCH ×2 (08:30→18:58)
[2022-06-30] MEDS: REMEDY ESSENTIAL ZINC PASTE 113 GM TP SCH ×2 (08:30→21:39)
[2022-06-30] MEDS: [UNRECOGNIZED DRUG - OTHER] TP SCH (08:30)
[2022-06-30 10:10] VITALS: O2SAT 98
[2022-06-30] MEDS: HYDROGEN PEROXIDE 3% 118 ML BOTTLE TOP SCH ×2 (10:10→19:25)
[2022-06-30 19:56] VITALS: TEMP 97.8
[2022-06-30 20:30] VITALS: O2SAT 98
[2022-06-30] MEDS: NUTRISOURCE FIBER 4 GM PACKET GT SCH (21:39)
[2022-06-30] MEDS: MELATONIN 5MG TABLET GT SCH (21:39)
[2022-06-30] MEDS: RIVAROXABAN 10 MG TABLET GT SCH (21:41)
[2022-07-01] MEDS: FAMOTIDINE 20 MG TABLET GT SCH ×2 (01:21→18:48)
[2022-07-01] MEDS: VITAL AF 1.2 1,000 ML LIQUID GT PRN (05:20)
[2022-07-01 07:50] VITALS: TEMP 98.6
[2022-07-01 08:23] VITALS: O2SAT 98
[2022-07-01] MEDS: ACIDOPHILUS/BULGARICUS CHEW TAB GT SCH ×2 (08:28→20:48)
[2022-07-01] MEDS: REMEDY ESSENTIAL ZINC PASTE 113 GM TP SCH ×2 (08:28→20:49)
[2022-07-01] MEDS: LACOSAMIDE 100 MG/10 ML UDC GT SCH ×2 (08:28→20:00)
[2022-07-01] MEDS: METOCLOPRAMIDE HCL 10 MG TABLET GT SCH ×3 (08:28→18:48)
[2022-07-01] MEDS: TIZANIDINE HCL 4 MG TABLET GT SCH ×2 (08:28→18:48)
[2022-07-01] MEDS: levETIRAcetam 500 MG/5 ML LIQUID UDC GT SCH ×2 (08:28→20:00)
[2022-07-01] MEDS: HYDROGEN PEROXIDE 3% 118 ML BOTTLE TOP SCH ×2 (09:00→19:12)
[2022-07-01 20:00] VITALS: TEMP 97.8
[2022-07-01 20:30] VITALS: O2SAT 98
[2022-07-01] MEDS: MELATONIN 5MG TABLET GT SCH (20:48)
[2022-07-01] MEDS: NUTRISOURCE FIBER 4 GM PACKET GT SCH (20:48)
[2022-07-01] MEDS: RIVAROXABAN 10 MG TABLET GT SCH (21:00)
[2022-07-02] MEDS: FAMOTIDINE 20 MG TABLET GT SCH ×2 (05:32→18:42)
[2022-07-02 07:47] VITALS: TEMP 98.3
[2022-07-02 08:08] VITALS: O2SAT 98
[2022-07-02] MEDS: levETIRAcetam 500 MG/5 ML LIQUID UDC GT SCH ×2 (08:38→20:00)
[2022-07-02] MEDS: LACOSAMIDE 100 MG/10 ML UDC GT SCH ×2 (08:39→20:00)
[2022-07-02] MEDS: HYDROGEN PEROXIDE 3% 118 ML BOTTLE TOP SCH ×2 (09:37→19:19)
[2022-07-02] MEDS: ACIDOPHILUS/BULGARICUS CHEW TAB GT SCH ×2 (09:57→21:13)
[2022-07-02] MEDS: METOCLOPRAMIDE HCL 10 MG TABLET GT SCH ×3 (09:58→18:43)
[2022-07-02] MEDS: TIZANIDINE HCL 4 MG TABLET GT SCH ×2 (09:59→18:43)
[2022-07-02] MEDS: REMEDY ESSENTIAL ZINC PASTE 113 GM TP SCH ×2 (09:59→21:00)
[2022-07-02] MEDS: [UNRECOGNIZED DRUG - OTHER] TP SCH (09:59)
[2022-07-02 20:00] VITALS: TEMP 97.5
[2022-07-02] MEDS: NUTRISOURCE FIBER 4 GM PACKET GT SCH (21:00)
[2022-07-02] MEDS: RIVAROXABAN 10 MG TABLET GT SCH (21:16)
[2022-07-02] MEDS: MELATONIN 5MG TABLET GT SCH (21:23)
[2022-07-03 01:02] VITALS: O2SAT 98
[2022-07-03] MEDS: FAMOTIDINE 20 MG TABLET GT SCH ×2 (06:55→18:24)
[2022-07-03] MEDS: HYDROGEN PEROXIDE 3% 118 ML BOTTLE TOP SCH ×2 (08:12→21:01)
[2022-07-03] MEDS: LACOSAMIDE 100 MG/10 ML UDC GT SCH ×2 (09:00→20:16)
[2022-07-03] MEDS: levETIRAcetam 500 MG/5 ML LIQUID UDC GT SCH ×2 (09:00→20:16)
[2022-07-03] MEDS: ACIDOPHILUS/BULGARICUS CHEW TAB GT SCH ×2 (09:02→21:00)
[2022-07-03] MEDS: REMEDY ESSENTIAL ZINC PASTE 113 GM TP SCH ×2 (09:03→21:00)
[2022-07-03] MEDS: TIZANIDINE HCL 4 MG TABLET GT SCH ×2 (09:03→18:24)
[2022-07-03] MEDS: METOCLOPRAMIDE HCL 10 MG TABLET GT SCH ×3 (09:03→18:24)
[2022-07-03 11:12] VITALS: TEMP 97.8
[2022-07-03] MEDS: VITAL AF 1.2 1,000 ML LIQUID GT PRN (12:24)
[2022-07-03 13:20] VITALS: O2SAT 98
[2022-07-03 20:00] VITALS: TEMP 97.6
[2022-07-03 20:25] VITALS: O2SAT 98
[2022-07-03] MEDS: NUTRISOURCE FIBER 4 GM PACKET GT SCH (21:00)
[2022-07-03] MEDS: RIVAROXABAN 10 MG TABLET GT SCH (21:00)
[2022-07-03] MEDS: MELATONIN 5MG TABLET GT SCH (21:00)
[2022-07-04] MEDS: FAMOTIDINE 20 MG TABLET GT SCH ×2 (05:40→18:43)
[2022-07-04] MEDS: HYDROGEN PEROXIDE 3% 118 ML BOTTLE TOP SCH ×2 (08:17→19:27)
[2022-07-04] MEDS: LACOSAMIDE 100 MG/10 ML UDC GT SCH ×2 (08:40→20:07)
[2022-07-04] MEDS: METOCLOPRAMIDE HCL 10 MG TABLET GT SCH ×3 (08:40→18:43)
[2022-07-04] MEDS: TIZANIDINE HCL 4 MG TABLET GT SCH ×2 (08:40→18:43)
[2022-07-04] MEDS: levETIRAcetam 500 MG/5 ML LIQUID UDC GT SCH ×2 (08:40→20:07)
[2022-07-04] MEDS: ACIDOPHILUS/BULGARICUS CHEW TAB GT SCH ×2 (08:40→21:00)
[2022-07-04] MEDS: [UNRECOGNIZED DRUG - OTHER] TP SCH (08:40)
[2022-07-04] MEDS: REMEDY ESSENTIAL ZINC PASTE 113 GM TP SCH ×2 (08:40→21:00)
[2022-07-04 10:50] VITALS: O2SAT 98
[2022-07-04 20:35] VITALS: TEMP 97.8
[2022-07-04 20:52] VITALS: O2SAT 98
[2022-07-04] MEDS: NUTRISOURCE FIBER 4 GM PACKET GT SCH (21:00)
[2022-07-04] MEDS: MELATONIN 5MG TABLET GT SCH (21:00)
[2022-07-04] MEDS: RIVAROXABAN 10 MG TABLET GT SCH (21:00)
[2022-07-05] MEDS: FAMOTIDINE 20 MG TABLET GT SCH ×2 (05:33→18:46)
[2022-07-05] MEDS: HYDROGEN PEROXIDE 3% 118 ML BOTTLE TOP SCH ×2 (08:17→20:40)
[2022-07-05 08:30] VITALS: TEMP 98.7
[2022-07-05] MEDS: levETIRAcetam 500 MG/5 ML LIQUID UDC GT SCH ×2 (08:31→19:57)
[2022-07-05] MEDS: LACOSAMIDE 100 MG/10 ML UDC GT SCH ×2 (08:31→19:57)
[2022-07-05] MEDS: ACIDOPHILUS/BULGARICUS CHEW TAB GT SCH ×2 (08:31→21:00)
[2022-07-05] MEDS: METOCLOPRAMIDE HCL 10 MG TABLET GT SCH ×3 (08:32→18:46)
[2022-07-05] MEDS: TIZANIDINE HCL 4 MG TABLET GT SCH ×2 (08:32→18:46)
[2022-07-05] MEDS: REMEDY ESSENTIAL ZINC PASTE 113 GM TP SCH ×2 (08:33→21:00)
[2022-07-05 17:29] VITALS: O2SAT 98
[2022-07-05 19:50] VITALS: O2SAT 98
[2022-07-05 20:00] VITALS: TEMP 97.7
[2022-07-05] MEDS: MELATONIN 5MG TABLET GT SCH (21:00)
[2022-07-05] MEDS: RIVAROXABAN 10 MG TABLET GT SCH (21:00)
[2022-07-05] MEDS: NUTRISOURCE FIBER 4 GM PACKET GT SCH (21:00)
[2022-07-05] MEDS: VITAL AF 1.2 1,000 ML LIQUID GT PRN (22:11)
[2022-07-06] MEDS: FAMOTIDINE 20 MG TABLET GT SCH ×2 (06:00→18:47)
[2022-07-06 07:30] VITALS: TEMP 97.8
[2022-07-06] MEDS: levETIRAcetam 500 MG/5 ML LIQUID UDC GT SCH ×2 (08:44→20:13)
[2022-07-06] MEDS: ACIDOPHILUS/BULGARICUS CHEW TAB GT SCH ×2 (08:45→21:59)
[2022-07-06] MEDS: LACOSAMIDE 100 MG/10 ML UDC GT SCH ×2 (08:45→20:14)
[2022-07-06] MEDS: [UNRECOGNIZED DRUG - OTHER] TP SCH (08:46)
[2022-07-06] MEDS: METOCLOPRAMIDE HCL 10 MG TABLET GT SCH ×3 (08:46→18:47)
[2022-07-06] MEDS: TIZANIDINE HCL 4 MG TABLET GT SCH ×2 (08:46→18:47)
[2022-07-06] MEDS: REMEDY ESSENTIAL ZINC PASTE 113 GM TP SCH ×2 (08:46→21:00)
[2022-07-06 09:05] VITALS: O2SAT 98
[2022-07-06] MEDS: HYDROGEN PEROXIDE 3% 118 ML BOTTLE TOP SCH ×2 (09:05→19:54)
[2022-07-06 20:10] VITALS: TEMP 98.8
[2022-07-06 20:30] VITALS: O2SAT 98
[2022-07-06] MEDS: MELATONIN 5MG TABLET GT SCH (21:59)
[2022-07-06] MEDS: NUTRISOURCE FIBER 4 GM PACKET GT SCH (21:59)
[2022-07-06] MEDS: VITAL AF 1.2 1,000 ML LIQUID GT PRN (22:00)
[2022-07-06] MEDS: RIVAROXABAN 10 MG TABLET GT SCH (22:00)
[2022-07-07] MEDS: FAMOTIDINE 20 MG TABLET GT SCH ×2 (05:17→18:52)
[2022-07-07 07:34] VITALS: TEMP 98
[2022-07-07 08:10] VITALS: O2SAT 98
[2022-07-07] MEDS: levETIRAcetam 500 MG/5 ML LIQUID UDC GT SCH ×2 (08:15→20:00)
[2022-07-07] MEDS: LACOSAMIDE 100 MG/10 ML UDC GT SCH ×2 (08:15→20:00)
[2022-07-07] MEDS: ACIDOPHILUS/BULGARICUS CHEW TAB GT SCH ×2 (08:50→20:20)
[2022-07-07] MEDS: METOCLOPRAMIDE HCL 10 MG TABLET GT SCH ×3 (08:57→18:52)
[2022-07-07] MEDS: TIZANIDINE HCL 4 MG TABLET GT SCH ×2 (08:57→18:52)
[2022-07-07] MEDS: REMEDY ESSENTIAL ZINC PASTE 113 GM TP SCH ×2 (08:57→20:20)
[2022-07-07] MEDS: HYDROGEN PEROXIDE 3% 118 ML BOTTLE TOP SCH ×2 (09:11→20:13)
[2022-07-07 10:45] VITALS: O2SAT 98
[2022-07-07] MEDS: NUTRISOURCE FIBER 4 GM PACKET GT SCH (20:20)
[2022-07-07 20:24] VITALS: TEMP 97.8
[2022-07-07] MEDS: RIVAROXABAN 10 MG TABLET GT SCH (21:00)
[2022-07-07] MEDS: MELATONIN 5MG TABLET GT SCH (21:00)
[2022-07-08] MEDS: FAMOTIDINE 20 MG TABLET GT SCH ×2 (05:02→18:52)
[2022-07-08] MEDS: VITAL AF 1.2 1,000 ML LIQUID GT PRN ×2 (07:30→13:39)
[2022-07-08 08:01] VITALS: TEMP 98.4
[2022-07-08] MEDS: LACOSAMIDE 100 MG/10 ML UDC GT SCH ×2 (08:13→20:35)
[2022-07-08] MEDS: levETIRAcetam 500 MG/5 ML LIQUID UDC GT SCH ×2 (08:13→20:35)
[2022-07-08] MEDS: HYDROGEN PEROXIDE 3% 118 ML BOTTLE TOP SCH ×2 (08:21→20:50)
[2022-07-08] MEDS: ACIDOPHILUS/BULGARICUS CHEW TAB GT SCH ×2 (08:54→20:14)
[2022-07-08] MEDS: TIZANIDINE HCL 4 MG TABLET GT SCH ×2 (08:55→18:52)
[2022-07-08] MEDS: [UNRECOGNIZED DRUG - OTHER] TP SCH (08:55)
[2022-07-08] MEDS: REMEDY ESSENTIAL ZINC PASTE 113 GM TP SCH ×2 (08:55→20:14)
[2022-07-08] MEDS: METOCLOPRAMIDE HCL 10 MG TABLET GT SCH ×3 (08:55→18:52)
[2022-07-08 13:31] VITALS: O2SAT 98
[2022-07-08] MEDS: MELATONIN 5MG TABLET GT SCH (20:14)
[2022-07-08] MEDS: NUTRISOURCE FIBER 4 GM PACKET GT SCH (20:14)
[2022-07-08 20:19] VITALS: TEMP 97.8
[2022-07-08] MEDS: RIVAROXABAN 10 MG TABLET GT SCH (21:00)
[2022-07-08 22:52] VITALS: O2SAT 98
[2022-07-09] MEDS: FAMOTIDINE 20 MG TABLET GT SCH ×2 (06:15→18:48)
[2022-07-09 07:42] VITALS: TEMP 98.1
[2022-07-09] MEDS: METOCLOPRAMIDE HCL 10 MG TABLET GT SCH ×3 (08:26→18:48)
[2022-07-09] MEDS: levETIRAcetam 500 MG/5 ML LIQUID UDC GT SCH ×2 (08:26→20:00)
[2022-07-09] MEDS: LACOSAMIDE 100 MG/10 ML UDC GT SCH ×2 (08:26→20:00)
[2022-07-09] MEDS: ACIDOPHILUS/BULGARICUS CHEW TAB GT SCH ×2 (08:26→21:00)
[2022-07-09] MEDS: TIZANIDINE HCL 4 MG TABLET GT SCH ×2 (08:26→18:48)
[2022-07-09] MEDS: REMEDY ESSENTIAL ZINC PASTE 113 GM TP SCH ×2 (08:26→21:00)
[2022-07-09] MEDS: HYDROGEN PEROXIDE 3% 118 ML BOTTLE TOP SCH ×2 (08:27→19:19)
[2022-07-09] MEDS: VITAL AF 1.2 1,000 ML LIQUID GT PRN (11:12)
[2022-07-09 13:31] VITALS: O2SAT 98
[2022-07-09 20:33] VITALS: TEMP 98
[2022-07-09] MEDS: MELATONIN 5MG TABLET GT SCH (21:00)
[2022-07-09] MEDS: RIVAROXABAN 10 MG TABLET GT SCH (21:00)
[2022-07-09] MEDS: NUTRISOURCE FIBER 4 GM PACKET GT SCH (21:00)
[2022-07-09 22:24] VITALS: O2SAT 98
[2022-07-10] MEDS: FAMOTIDINE 20 MG TABLET GT SCH ×2 (06:00→18:30)
[2022-07-10] MEDS: LACOSAMIDE 100 MG/10 ML UDC GT SCH ×2 (08:51→20:51)
[2022-07-10] MEDS: ACIDOPHILUS/BULGARICUS CHEW TAB GT SCH ×2 (08:51→21:00)
[2022-07-10] MEDS: levETIRAcetam 500 MG/5 ML LIQUID UDC GT SCH ×2 (08:51→20:51)
[2022-07-10] MEDS: METOCLOPRAMIDE HCL 10 MG TABLET GT SCH ×3 (08:51→18:30)
[2022-07-10] MEDS: TIZANIDINE HCL 4 MG TABLET GT SCH ×2 (08:51→18:30)
[2022-07-10] MEDS: REMEDY ESSENTIAL ZINC PASTE 113 GM TP SCH ×2 (08:52→21:00)
[2022-07-10] MEDS: [UNRECOGNIZED DRUG - OTHER] TP SCH (08:52)
[2022-07-10] MEDS: HYDROGEN PEROXIDE 3% 118 ML BOTTLE TOP SCH ×2 (09:00→19:18)
[2022-07-10 09:06] VITALS: TEMP 98.2
[2022-07-10] MEDS: VITAL AF 1.2 1,000 ML LIQUID GT PRN (16:30)
[2022-07-10] MEDS: RIVAROXABAN 10 MG TABLET GT SCH (21:00)
[2022-07-10] MEDS: NUTRISOURCE FIBER 4 GM PACKET GT SCH (21:00)
[2022-07-10] MEDS: MELATONIN 5MG TABLET GT SCH (21:00)
[2022-07-10 22:18] VITALS: O2SAT 98
[2022-07-11] MEDS: FAMOTIDINE 20 MG TABLET GT SCH ×2 (06:58→18:50)
[2022-07-11 07:12] VITALS: TEMP 98.5
[2022-07-11] MEDS: levETIRAcetam 500 MG/5 ML LIQUID UDC GT SCH ×2 (08:20→19:57)
[2022-07-11] MEDS: ACIDOPHILUS/BULGARICUS CHEW TAB GT SCH ×2 (08:20→21:33)
[2022-07-11] MEDS: METOCLOPRAMIDE HCL 10 MG TABLET GT SCH ×3 (08:20→18:50)
[2022-07-11] MEDS: REMEDY ESSENTIAL ZINC PASTE 113 GM TP SCH ×2 (08:20→21:33)
[2022-07-11] MEDS: TIZANIDINE HCL 4 MG TABLET GT SCH ×2 (08:20→18:50)
[2022-07-11] MEDS: LACOSAMIDE 100 MG/10 ML UDC GT SCH ×2 (08:20→19:57)
[2022-07-11] MEDS: HYDROGEN PEROXIDE 3% 118 ML BOTTLE TOP SCH ×2 (09:00→21:10)
[2022-07-11 13:44] VITALS: O2SAT 98
[2022-07-11 19:50] VITALS: O2SAT 98
[2022-07-11 20:00] VITALS: TEMP 97.6
[2022-07-11] MEDS: NUTRISOURCE FIBER 4 GM PACKET GT SCH (21:33)
[2022-07-11] MEDS: MELATONIN 5MG TABLET GT SCH (21:33)
[2022-07-11] MEDS: RIVAROXABAN 10 MG TABLET GT SCH (21:52)
[2022-07-12] MEDS: FAMOTIDINE 20 MG TABLET GT SCH ×2 (05:05→18:41)
[2022-07-12] MEDS: VITAL AF 1.2 1,000 ML LIQUID GT PRN (05:06)
[2022-07-12 07:15] VITALS: TEMP 98.1
[2022-07-12] MEDS: HYDROGEN PEROXIDE 3% 118 ML BOTTLE TOP SCH ×2 (07:36→21:05)
[2022-07-12] MEDS: levETIRAcetam 500 MG/5 ML LIQUID UDC GT SCH ×2 (08:46→19:50)
[2022-07-12] MEDS: ACIDOPHILUS/BULGARICUS CHEW TAB GT SCH ×2 (08:47→21:00)
[2022-07-12] MEDS: LACOSAMIDE 100 MG/10 ML UDC GT SCH ×2 (08:47→19:50)
[2022-07-12] MEDS: TIZANIDINE HCL 4 MG TABLET GT SCH ×2 (08:47→18:41)
[2022-07-12] MEDS: REMEDY ESSENTIAL ZINC PASTE 113 GM TP SCH ×2 (08:47→21:00)
[2022-07-12] MEDS: METOCLOPRAMIDE HCL 10 MG TABLET GT SCH ×3 (08:47→18:41)
[2022-07-12] MEDS: [UNRECOGNIZED DRUG - OTHER] TP SCH (08:47)
[2022-07-12 12:00] VITALS: O2SAT 98
[2022-07-12] MEDS: BISACODYL 10 MG SUPP.RECT RC PRN (16:59)
[2022-07-12 21:00] VITALS: O2SAT 98
[2022-07-12] MEDS: MELATONIN 5MG TABLET GT SCH (21:00)
[2022-07-12] MEDS: NUTRISOURCE FIBER 4 GM PACKET GT SCH (21:00)
[2022-07-12] MEDS: RIVAROXABAN 10 MG TABLET GT SCH (21:00)
[2022-07-12 21:17] VITALS: TEMP 97.6
[2022-07-13] MEDS: FAMOTIDINE 20 MG TABLET GT SCH ×2 (06:00→18:43)
[2022-07-13 07:30] VITALS: TEMP 98.9
[2022-07-13] MEDS: LACOSAMIDE 100 MG/10 ML UDC GT SCH ×2 (08:24→20:00)
[2022-07-13] MEDS: levETIRAcetam 500 MG/5 ML LIQUID UDC GT SCH ×2 (08:24→20:00)
[2022-07-13] MEDS: REMEDY ESSENTIAL ZINC PASTE 113 GM TP SCH ×2 (08:26→21:21)
[2022-07-13] MEDS: METOCLOPRAMIDE HCL 10 MG TABLET GT SCH ×3 (08:26→18:44)
[2022-07-13] MEDS: TIZANIDINE HCL 4 MG TABLET GT SCH ×2 (08:26→18:44)
[2022-07-13] MEDS: ACIDOPHILUS/BULGARICUS CHEW TAB GT SCH ×2 (08:26→21:21)
[2022-07-13 09:30] VITALS: O2SAT 98
[2022-07-13] MEDS: HYDROGEN PEROXIDE 3% 118 ML BOTTLE TOP SCH ×2 (09:42→20:48)
[2022-07-13 20:00] VITALS: TEMP 97.8
[2022-07-13 21:01] VITALS: O2SAT 99
[2022-07-13] MEDS: RIVAROXABAN 10 MG TABLET GT SCH (21:21)
[2022-07-13] MEDS: NUTRISOURCE FIBER 4 GM PACKET GT SCH (21:21)
[2022-07-13] MEDS: MELATONIN 5MG TABLET GT SCH (21:21)
[2022-07-14] MEDS: FAMOTIDINE 20 MG TABLET GT SCH ×2 (05:24→18:51)
[2022-07-14] MEDS: VITAL AF 1.2 1,000 ML LIQUID GT PRN (05:24)
[2022-07-14 07:36] VITALS: TEMP 97.7
[2022-07-14] MEDS: LACOSAMIDE 100 MG/10 ML UDC GT SCH ×2 (08:00→20:05)
[2022-07-14] MEDS: levETIRAcetam 500 MG/5 ML LIQUID UDC GT SCH ×2 (08:00→20:05)
[2022-07-14] MEDS: ACIDOPHILUS/BULGARICUS CHEW TAB GT SCH ×2 (09:00→21:08)
[2022-07-14] MEDS: METOCLOPRAMIDE HCL 10 MG TABLET GT SCH ×3 (09:00→18:51)
[2022-07-14] MEDS: [UNRECOGNIZED DRUG - OTHER] TP SCH (09:00)
[2022-07-14] MEDS: REMEDY ESSENTIAL ZINC PASTE 113 GM TP SCH ×2 (09:00→21:10)
[2022-07-14] MEDS: TIZANIDINE HCL 4 MG TABLET GT SCH ×2 (09:00→18:51)
[2022-07-14 09:50] VITALS: O2SAT 98
[2022-07-14] MEDS: HYDROGEN PEROXIDE 3% 118 ML BOTTLE TOP SCH ×2 (09:50→21:14)
[2022-07-14 20:30] VITALS: O2SAT 98
[2022-07-14 21:00] VITALS: TEMP 97.7
[2022-07-14] MEDS: MELATONIN 5MG TABLET GT SCH (21:08)
[2022-07-14] MEDS: NUTRISOURCE FIBER 4 GM PACKET GT SCH (21:09)
[2022-07-14] MEDS: RIVAROXABAN 10 MG TABLET GT SCH (21:26)
[2022-07-15] MEDS: VITAL AF 1.2 1,000 ML LIQUID GT PRN (04:55)
[2022-07-15] MEDS: FAMOTIDINE 20 MG TABLET GT SCH ×2 (06:35→18:46)
[2022-07-15 07:36] VITALS: TEMP 98.5
[2022-07-15] MEDS: levETIRAcetam 500 MG/5 ML LIQUID UDC GT SCH ×2 (08:00→20:06)
[2022-07-15] MEDS: LACOSAMIDE 100 MG/10 ML UDC GT SCH ×2 (08:00→20:06)
[2022-07-15 08:54] VITALS: O2SAT 98
[2022-07-15] MEDS: HYDROGEN PEROXIDE 3% 118 ML BOTTLE TOP SCH ×2 (09:00→22:26)
[2022-07-15] MEDS: ACIDOPHILUS/BULGARICUS CHEW TAB GT SCH ×2 (09:08→21:02)
[2022-07-15] MEDS: TIZANIDINE HCL 4 MG TABLET GT SCH ×2 (09:09→18:46)
[2022-07-15] MEDS: REMEDY ESSENTIAL ZINC PASTE 113 GM TP SCH ×2 (09:09→21:02)
[2022-07-15] MEDS: METOCLOPRAMIDE HCL 10 MG TABLET GT SCH ×3 (09:09→18:46)
[2022-07-15 20:28] VITALS: TEMP 98.3
[2022-07-15] MEDS: RIVAROXABAN 10 MG TABLET GT SCH (21:00)
[2022-07-15] MEDS: MELATONIN 5MG TABLET GT SCH (21:02)
[2022-07-15] MEDS: NUTRISOURCE FIBER 4 GM PACKET GT SCH (21:02)
[2022-07-15 22:49] VITALS: O2SAT 98
[2022-07-16] MEDS: FAMOTIDINE 20 MG TABLET GT SCH ×2 (05:38→18:45)
[2022-07-16 08:25] VITALS: TEMP 97.8
[2022-07-16] MEDS: levETIRAcetam 500 MG/5 ML LIQUID UDC GT SCH ×2 (08:27→20:15)
[2022-07-16] MEDS: ACIDOPHILUS/BULGARICUS CHEW TAB GT SCH ×2 (08:28→21:00)
[2022-07-16] MEDS: LACOSAMIDE 100 MG/10 ML UDC GT SCH ×2 (08:28→20:15)
[2022-07-16] MEDS: METOCLOPRAMIDE HCL 10 MG TABLET GT SCH ×3 (08:29→18:45)
[2022-07-16] MEDS: TIZANIDINE HCL 4 MG TABLET GT SCH ×2 (08:29→18:45)
[2022-07-16] MEDS: REMEDY ESSENTIAL ZINC PASTE 113 GM TP SCH ×2 (08:29→21:00)
[2022-07-16] MEDS: [UNRECOGNIZED DRUG - OTHER] TP SCH (08:29)
[2022-07-16] MEDS: BISACODYL 10 MG SUPP.RECT RC PRN (08:41)
[2022-07-16] MEDS: HYDROGEN PEROXIDE 3% 118 ML BOTTLE TOP SCH ×2 (09:00→21:00)
[2022-07-16] MEDS: VITAL AF 1.2 1,000 ML LIQUID GT PRN (12:37)
[2022-07-16 19:55] VITALS: O2SAT 98
[2022-07-16 20:00] VITALS: TEMP 98.1
[2022-07-16] MEDS: NUTRISOURCE FIBER 4 GM PACKET GT SCH (21:00)
[2022-07-16] MEDS: MELATONIN 5MG TABLET GT SCH (21:00)
[2022-07-16] MEDS: RIVAROXABAN 10 MG TABLET GT SCH (21:00)
[2022-07-17] MEDS: FAMOTIDINE 20 MG TABLET GT SCH ×2 (05:42→18:46)
[2022-07-17] MEDS: HYDROGEN PEROXIDE 3% 118 ML BOTTLE TOP SCH ×2 (08:11→19:14)
[2022-07-17] MEDS: levETIRAcetam 500 MG/5 ML LIQUID UDC GT SCH ×2 (08:48→20:11)
[2022-07-17] MEDS: LACOSAMIDE 100 MG/10 ML UDC GT SCH ×2 (08:48→20:11)
[2022-07-17] MEDS: ACIDOPHILUS/BULGARICUS CHEW TAB GT SCH ×2 (08:49→21:00)
[2022-07-17] MEDS: METOCLOPRAMIDE HCL 10 MG TABLET GT SCH ×3 (08:49→18:46)
[2022-07-17] MEDS: REMEDY ESSENTIAL ZINC PASTE 113 GM TP SCH ×2 (08:50→21:00)
[2022-07-17] MEDS: TIZANIDINE HCL 4 MG TABLET GT SCH ×2 (08:50→18:46)
[2022-07-17 09:44] VITALS: TEMP 98.6
[2022-07-17 13:24] VITALS: O2SAT 98
[2022-07-17] MEDS: VITAL AF 1.2 1,000 ML LIQUID GT PRN (13:55)
[2022-07-17 20:01] VITALS: TEMP 97.7
[2022-07-17] MEDS: MELATONIN 5MG TABLET GT SCH (21:00)
[2022-07-17] MEDS: NUTRISOURCE FIBER 4 GM PACKET GT SCH (21:00)
[2022-07-17] MEDS: RIVAROXABAN 10 MG TABLET GT SCH (21:00)
[2022-07-18] MEDS: FAMOTIDINE 20 MG TABLET GT SCH ×2 (05:55→18:26)
[2022-07-18 07:34] VITALS: TEMP 97.8
[2022-07-18] MEDS: ACIDOPHILUS/BULGARICUS CHEW TAB GT SCH ×2 (08:24→21:00)
[2022-07-18] MEDS: LACOSAMIDE 100 MG/10 ML UDC GT SCH ×2 (08:24→20:13)
[2022-07-18] MEDS: METOCLOPRAMIDE HCL 10 MG TABLET GT SCH ×3 (08:24→18:26)
[2022-07-18] MEDS: TIZANIDINE HCL 4 MG TABLET GT SCH ×2 (08:24→18:26)
[2022-07-18] MEDS: [UNRECOGNIZED DRUG - OTHER] TP SCH (08:24)
[2022-07-18] MEDS: levETIRAcetam 500 MG/5 ML LIQUID UDC GT SCH ×2 (08:24→20:13)
[2022-07-18] MEDS: REMEDY ESSENTIAL ZINC PASTE 113 GM TP SCH ×2 (08:25→21:00)
[2022-07-18] MEDS: HYDROGEN PEROXIDE 3% 118 ML BOTTLE TOP SCH ×2 (09:36→21:56)
[2022-07-18 10:00] VITALS: O2SAT 98
[2022-07-18 20:05] VITALS: O2SAT 98
[2022-07-18] MEDS: NUTRISOURCE FIBER 4 GM PACKET GT SCH (21:00)
[2022-07-18] MEDS: RIVAROXABAN 10 MG TABLET GT SCH (21:00)
[2022-07-18] MEDS: MELATONIN 5MG TABLET GT SCH (21:00)
[2022-07-18 21:30] VITALS: TEMP 97.8
[2022-07-19] MEDS: FAMOTIDINE 20 MG TABLET GT SCH ×2 (05:51→18:53)
[2022-07-19 07:43] VITALS: TEMP 98.2
[2022-07-19] MEDS: HYDROGEN PEROXIDE 3% 118 ML BOTTLE TOP SCH ×2 (09:00→19:21)
[2022-07-19] MEDS: levETIRAcetam 500 MG/5 ML LIQUID UDC GT SCH ×2 (09:00→20:00)
[2022-07-19] MEDS: LACOSAMIDE 100 MG/10 ML UDC GT SCH ×2 (09:00→20:00)
[2022-07-19] MEDS: METOCLOPRAMIDE HCL 10 MG TABLET GT SCH ×3 (09:02→18:53)
[2022-07-19] MEDS: ACIDOPHILUS/BULGARICUS CHEW TAB GT SCH ×2 (09:02→21:15)
[2022-07-19] MEDS: TIZANIDINE HCL 4 MG TABLET GT SCH ×2 (09:02→18:53)
[2022-07-19] MEDS: REMEDY ESSENTIAL ZINC PASTE 113 GM TP SCH ×2 (09:04→21:15)
[2022-07-19 10:40] VITALS: O2SAT 99
[2022-07-19 20:00] VITALS: TEMP 98.8
[2022-07-19 20:20] VITALS: O2SAT 98
[2022-07-19] MEDS: MELATONIN 5MG TABLET GT SCH (21:15)
[2022-07-19] MEDS: RIVAROXABAN 10 MG TABLET GT SCH (21:15)
[2022-07-19] MEDS: NUTRISOURCE FIBER 4 GM PACKET GT SCH (21:15)
[2022-07-20] MEDS: FAMOTIDINE 20 MG TABLET GT SCH ×2 (06:07→18:45)
[2022-07-20 07:18] VITALS: TEMP 97.8
[2022-07-20] MEDS: levETIRAcetam 500 MG/5 ML LIQUID UDC GT SCH ×2 (08:31→20:00)
[2022-07-20] MEDS: LACOSAMIDE 100 MG/10 ML UDC GT SCH ×2 (08:31→20:00)
[2022-07-20 09:03] LABS: BASOPHILS % (AUTO) 0.3 % (0.0-2.0); EOSINOPHILS # (AUTO) 0.3 K/uL (0.0-0.7); EOSINOPHILS % (AUTO) 3.7 % (0.0-7.0); HEMATOCRIT 38.5 % (31.2-41.9); HEMOGLOBIN 12.7 g/dL (10.9-14.3); LYMPHOCYTES # (AUTO) 1.4 K/uL (0.8-4.8); LYMPHOCYTES % (AUTO) 15.8 % (20.5-51.5); MEAN CORPUSCULAR HEMOGLOBIN 29.8 uug (24.7-32.8); MEAN CORPUSCULAR HGB CONC 33 g/dL (32.3-35.6); MEAN CORPUSCULAR VOLUME 90.5 fL (75.5-95.3); MONOCYTES # (AUTO) 0.4 K/uL (0.1-1.30); MONOCYTES % (AUTO) 4.2 % (0.0-11.0); NEUTROPHILS # (AUTO) 6.6 K/uL (1.8-8.9); PLATELET COUNT (AUTO) 266 K/uL (179-408); RED BLOOD CELL COUNT(AUTO) 4.25 MIL/uL (3.63-4.92); RED CELL DISTRIBUTION WIDTH 12.7 % (12.3-17.7); WHITE BLOOD COUNT (AUTO) 8.6 K/uL (3.8-11.8)
[2022-07-20 09:08] LABS: DIFFERENTIAL COMMENT 1
[2022-07-20 09:21] LABS: CALCIUM 9.1 mg/dL (8.5-10.1); CARBON DIOXIDE 32 mmol/L (21-32); CHLORIDE 105 mmol/L (98-107); CREATININE 0.5 mg/dL (0.6-1.3); GLUCOSE 102 mg/dL (74-106); MAGNESIUM 2.1 mg/dL (1.8-2.4); PHOSPHOROUS 3.9 mg/dL (2.5-4.9); SODIUM SERUM 142 mmol/L (136-145); UREA NITROGEN, BLOOD 11 mg/dL (7-18)
[2022-07-20] MEDS: ACIDOPHILUS/BULGARICUS CHEW TAB GT SCH ×2 (09:26→21:00)
[2022-07-20] MEDS: METOCLOPRAMIDE HCL 10 MG TABLET GT SCH ×3 (09:26→18:45)
[2022-07-20] MEDS: TIZANIDINE HCL 4 MG TABLET GT SCH ×2 (09:27→18:45)
[2022-07-20] MEDS: REMEDY ESSENTIAL ZINC PASTE 113 GM TP SCH ×2 (09:27→21:00)
[2022-07-20] MEDS: [UNRECOGNIZED DRUG - OTHER] TP SCH (09:27)
[2022-07-20 09:40] VITALS: O2SAT 99
[2022-07-20] MEDS: HYDROGEN PEROXIDE 3% 118 ML BOTTLE TOP SCH ×2 (09:54→19:47)
[2022-07-20 13:40] VITALS: O2SAT 98
[2022-07-20 20:00] VITALS: TEMP 98.4
[2022-07-20 20:20] VITALS: O2SAT 98
[2022-07-20] MEDS: RIVAROXABAN 10 MG TABLET GT SCH (21:00)
[2022-07-20] MEDS: NUTRISOURCE FIBER 4 GM PACKET GT SCH (21:00)
[2022-07-20] MEDS: MELATONIN 5MG TABLET GT SCH (21:00)
[2022-07-21] MEDS: FAMOTIDINE 20 MG TABLET GT SCH ×2 (06:00→18:38)
[2022-07-21 07:26] VITALS: TEMP 98.6
[2022-07-21 08:10] VITALS: O2SAT 99
[2022-07-21] MEDS: LACOSAMIDE 100 MG/10 ML UDC GT SCH ×2 (08:48→20:22)
[2022-07-21] MEDS: levETIRAcetam 500 MG/5 ML LIQUID UDC GT SCH ×2 (08:48→20:22)
[2022-07-21] MEDS: REMEDY ESSENTIAL ZINC PASTE 113 GM TP SCH ×2 (08:49→20:22)
[2022-07-21] MEDS: METOCLOPRAMIDE HCL 10 MG TABLET GT SCH ×3 (08:49→18:38)
[2022-07-21] MEDS: TIZANIDINE HCL 4 MG TABLET GT SCH ×2 (08:49→18:38)
[2022-07-21] MEDS: ACIDOPHILUS/BULGARICUS CHEW TAB GT SCH ×2 (08:49→20:22)
[2022-07-21] MEDS: HYDROGEN PEROXIDE 3% 118 ML BOTTLE TOP SCH ×2 (09:06→19:24)
[2022-07-21] MEDS: NUTRISOURCE FIBER 4 GM PACKET GT SCH (20:22)
[2022-07-21] MEDS: MELATONIN 5MG TABLET GT SCH (20:22)
[2022-07-21] MEDS: RIVAROXABAN 10 MG TABLET GT SCH (20:22)
[2022-07-21 20:45] VITALS: O2SAT 98
[2022-07-22 01:00] VITALS: TEMP 98.3
[2022-07-22] MEDS: FAMOTIDINE 20 MG TABLET GT SCH ×2 (05:05→18:31)
[2022-07-22 07:36] VITALS: TEMP 98.2
[2022-07-22] MEDS: HYDROGEN PEROXIDE 3% 118 ML BOTTLE TOP SCH ×2 (08:06→19:15)
[2022-07-22] MEDS: LACOSAMIDE 100 MG/10 ML UDC GT SCH ×2 (08:57→20:03)
[2022-07-22] MEDS: levETIRAcetam 500 MG/5 ML LIQUID UDC GT SCH ×2 (08:57→20:03)
[2022-07-22] MEDS: ACIDOPHILUS/BULGARICUS CHEW TAB GT SCH ×2 (08:59→21:00)
[2022-07-22] MEDS: TIZANIDINE HCL 4 MG TABLET GT SCH ×2 (08:59→18:31)
[2022-07-22] MEDS: METOCLOPRAMIDE HCL 10 MG TABLET GT SCH ×3 (08:59→18:31)
[2022-07-22] MEDS: REMEDY ESSENTIAL ZINC PASTE 113 GM TP SCH ×2 (09:00→21:00)
[2022-07-22] MEDS: [UNRECOGNIZED DRUG - OTHER] TP SCH (09:00)
[2022-07-22] MEDS: VITAL AF 1.2 1,000 ML LIQUID GT PRN (09:50)
[2022-07-22 10:20] VITALS: O2SAT 99
[2022-07-22 20:45] VITALS: O2SAT 98
[2022-07-22] MEDS: MELATONIN 5MG TABLET GT SCH (21:00)
[2022-07-22] MEDS: NUTRISOURCE FIBER 4 GM PACKET GT SCH (21:00)
[2022-07-22] MEDS: RIVAROXABAN 10 MG TABLET GT SCH (21:00)
[2022-07-22 22:01] VITALS: TEMP 98.6
[2022-07-23] MEDS: FAMOTIDINE 20 MG TABLET GT SCH ×2 (05:24→18:45)
[2022-07-23] MEDS: HYDROGEN PEROXIDE 3% 118 ML BOTTLE TOP SCH ×2 (08:04→21:00)
[2022-07-23 08:15] VITALS: TEMP 97.1
[2022-07-23] MEDS: METOCLOPRAMIDE HCL 10 MG TABLET GT SCH ×3 (08:52→18:45)
[2022-07-23] MEDS: LACOSAMIDE 100 MG/10 ML UDC GT SCH ×2 (08:52→19:58)
[2022-07-23] MEDS: TIZANIDINE HCL 4 MG TABLET GT SCH ×2 (08:52→18:45)
[2022-07-23] MEDS: levETIRAcetam 500 MG/5 ML LIQUID UDC GT SCH ×2 (08:52→19:57)
[2022-07-23] MEDS: ACIDOPHILUS/BULGARICUS CHEW TAB GT SCH ×2 (08:52→19:58)
[2022-07-23] MEDS: REMEDY ESSENTIAL ZINC PASTE 113 GM TP SCH ×2 (08:52→21:00)
[2022-07-23 11:34] VITALS: TEMP 97.1
[2022-07-23 16:02] VITALS: O2SAT 98
[2022-07-23] MEDS: NUTRISOURCE FIBER 4 GM PACKET GT SCH (19:59)
[2022-07-23 20:17] VITALS: TEMP 97.6
[2022-07-23 20:25] VITALS: O2SAT 98
[2022-07-23] MEDS: MELATONIN 5MG TABLET GT SCH (21:00)
[2022-07-23] MEDS: RIVAROXABAN 10 MG TABLET GT SCH (21:00)
[2022-07-24] MEDS: FAMOTIDINE 20 MG TABLET GT SCH ×2 (05:14→19:18)
[2022-07-24 08:27] VITALS: TEMP 97.9
[2022-07-24] MEDS: LACOSAMIDE 100 MG/10 ML UDC GT SCH ×2 (08:46→20:36)
[2022-07-24] MEDS: levETIRAcetam 500 MG/5 ML LIQUID UDC GT SCH ×2 (08:46→20:36)
[2022-07-24] MEDS: ACIDOPHILUS/BULGARICUS CHEW TAB GT SCH ×2 (08:46→21:00)
[2022-07-24] MEDS: METOCLOPRAMIDE HCL 10 MG TABLET GT SCH ×3 (08:46→19:18)
[2022-07-24] MEDS: TIZANIDINE HCL 4 MG TABLET GT SCH ×2 (08:46→19:18)
[2022-07-24] MEDS: [UNRECOGNIZED DRUG - OTHER] TP SCH (08:47)
[2022-07-24] MEDS: REMEDY ESSENTIAL ZINC PASTE 113 GM TP SCH ×2 (08:47→21:00)
[2022-07-24] MEDS: HYDROGEN PEROXIDE 3% 118 ML BOTTLE TOP SCH ×2 (09:00→19:17)
[2022-07-24 13:47] VITALS: O2SAT 98
[2022-07-24 20:00] VITALS: TEMP 97.8
[2022-07-24] MEDS: NUTRISOURCE FIBER 4 GM PACKET GT SCH (21:00)
[2022-07-24] MEDS: RIVAROXABAN 10 MG TABLET GT SCH (21:00)
[2022-07-24] MEDS: MELATONIN 5MG TABLET GT SCH (21:00)
[2022-07-24 21:10] VITALS: O2SAT 98
[2022-07-25] MEDS: FAMOTIDINE 20 MG TABLET GT SCH ×2 (06:36→18:37)
[2022-07-25 07:31] VITALS: TEMP 98.7
[2022-07-25] MEDS: levETIRAcetam 500 MG/5 ML LIQUID UDC GT SCH ×2 (07:31→20:00)
[2022-07-25] MEDS: LACOSAMIDE 100 MG/10 ML UDC GT SCH ×2 (07:32→20:00)
[2022-07-25] MEDS: ACIDOPHILUS/BULGARICUS CHEW TAB GT SCH ×2 (08:57→21:00)
[2022-07-25] MEDS: METOCLOPRAMIDE HCL 10 MG TABLET GT SCH ×3 (08:57→18:37)
[2022-07-25] MEDS: HYDROGEN PEROXIDE 3% 118 ML BOTTLE TOP SCH ×2 (09:00→19:19)
[2022-07-25] MEDS: TIZANIDINE HCL 4 MG TABLET GT SCH ×2 (09:03→18:37)
[2022-07-25] MEDS: REMEDY ESSENTIAL ZINC PASTE 113 GM TP SCH ×2 (09:03→21:00)
[2022-07-25 13:20] VITALS: O2SAT 98
[2022-07-25] MEDS: VITAL AF 1.2 1,000 ML LIQUID GT PRN (14:38)
[2022-07-25 20:00] VITALS: TEMP 98.6
[2022-07-25 20:30] VITALS: O2SAT 98
[2022-07-25] MEDS: RIVAROXABAN 10 MG TABLET GT SCH (21:00)
[2022-07-25] MEDS: NUTRISOURCE FIBER 4 GM PACKET GT SCH (21:00)
[2022-07-25] MEDS: MELATONIN 5MG TABLET GT SCH (21:00)
[2022-07-26] MEDS: FAMOTIDINE 20 MG TABLET GT SCH ×2 (05:52→18:43)
[2022-07-26 07:56] VITALS: TEMP 97.8
[2022-07-26] MEDS: LACOSAMIDE 100 MG/10 ML UDC GT SCH ×2 (08:05→20:00)
[2022-07-26] MEDS: levETIRAcetam 500 MG/5 ML LIQUID UDC GT SCH ×2 (08:05→20:00)
[2022-07-26] MEDS: ACIDOPHILUS/BULGARICUS CHEW TAB GT SCH ×2 (08:06→21:00)
[2022-07-26] MEDS: METOCLOPRAMIDE HCL 10 MG TABLET GT SCH ×3 (08:06→18:43)
[2022-07-26] MEDS: REMEDY ESSENTIAL ZINC PASTE 113 GM TP SCH ×2 (08:07→21:00)
[2022-07-26] MEDS: TIZANIDINE HCL 4 MG TABLET GT SCH ×2 (08:07→18:43)
[2022-07-26] MEDS: [UNRECOGNIZED DRUG - OTHER] TP SCH (08:07)
[2022-07-26] MEDS: HYDROGEN PEROXIDE 3% 118 ML BOTTLE TOP SCH ×2 (09:00→19:17)
[2022-07-26 11:25] VITALS: O2SAT 98
[2022-07-26] MEDS: VITAL AF 1.2 1,000 ML LIQUID GT PRN (15:19)
[2022-07-26] MEDS: NUTRISOURCE FIBER 4 GM PACKET GT SCH (21:00)
[2022-07-26] MEDS: MELATONIN 5MG TABLET GT SCH (21:00)
[2022-07-26] MEDS: RIVAROXABAN 10 MG TABLET GT SCH (21:00)
[2022-07-27] MEDS: FAMOTIDINE 20 MG TABLET GT SCH ×2 (05:20→18:41)
[2022-07-27 07:37] VITALS: TEMP 98.1
[2022-07-27] MEDS: LACOSAMIDE 100 MG/10 ML UDC GT SCH ×2 (08:30→20:18)
[2022-07-27] MEDS: levETIRAcetam 500 MG/5 ML LIQUID UDC GT SCH ×2 (08:30→20:18)
[2022-07-27] MEDS: METOCLOPRAMIDE HCL 10 MG TABLET GT SCH ×3 (08:31→18:41)
[2022-07-27] MEDS: REMEDY ESSENTIAL ZINC PASTE 113 GM TP SCH ×2 (08:31→21:00)
[2022-07-27] MEDS: ACIDOPHILUS/BULGARICUS CHEW TAB GT SCH ×2 (08:31→21:00)
[2022-07-27] MEDS: TIZANIDINE HCL 4 MG TABLET GT SCH ×2 (08:31→18:41)
[2022-07-27] MEDS: HYDROGEN PEROXIDE 3% 118 ML BOTTLE TOP SCH ×2 (08:40→21:09)
[2022-07-27 11:12] VITALS: O2SAT 98
[2022-07-27] MEDS: VITAL AF 1.2 1,000 ML LIQUID GT PRN (15:53)
[2022-07-27 20:00] VITALS: TEMP 97.8
[2022-07-27 20:50] VITALS: O2SAT 98
[2022-07-27] MEDS: NUTRISOURCE FIBER 4 GM PACKET GT SCH (21:00)
[2022-07-27] MEDS: RIVAROXABAN 10 MG TABLET GT SCH (21:00)
[2022-07-27] MEDS: MELATONIN 5MG TABLET GT SCH (21:00)
[2022-07-28] MEDS: FAMOTIDINE 20 MG TABLET GT SCH ×2 (05:52→18:52)
[2022-07-28 07:44] VITALS: TEMP 98.1
[2022-07-28] MEDS: HYDROGEN PEROXIDE 3% 118 ML BOTTLE TOP SCH ×2 (08:05→19:53)
[2022-07-28] MEDS: levETIRAcetam 500 MG/5 ML LIQUID UDC GT SCH ×2 (08:37→20:12)
[2022-07-28] MEDS: ACIDOPHILUS/BULGARICUS CHEW TAB GT SCH ×2 (08:38→21:00)
[2022-07-28] MEDS: LACOSAMIDE 100 MG/10 ML UDC GT SCH ×2 (08:38→20:12)
[2022-07-28] MEDS: TIZANIDINE HCL 4 MG TABLET GT SCH ×2 (08:39→18:53)
[2022-07-28] MEDS: METOCLOPRAMIDE HCL 10 MG TABLET GT SCH ×3 (08:39→18:53)
[2022-07-28] MEDS: REMEDY ESSENTIAL ZINC PASTE 113 GM TP SCH ×2 (09:00→21:00)
[2022-07-28] MEDS: [UNRECOGNIZED DRUG - OTHER] TP SCH (09:00)
[2022-07-28 10:50] VITALS: O2SAT 98
[2022-07-28] MEDS: VITAL AF 1.2 1,000 ML LIQUID GT PRN (17:17)
[2022-07-28 20:00] VITALS: TEMP 98.4
[2022-07-28 20:46] VITALS: O2SAT 98
[2022-07-28] MEDS: NUTRISOURCE FIBER 4 GM PACKET GT SCH (21:00)
[2022-07-28] MEDS: MELATONIN 5MG TABLET GT SCH (21:00)
[2022-07-28] MEDS: RIVAROXABAN 10 MG TABLET GT SCH (21:49)
[2022-07-29] MEDS: FAMOTIDINE 20 MG TABLET GT SCH ×2 (05:53→18:47)
[2022-07-29 07:32] VITALS: TEMP 98
[2022-07-29 07:57] VITALS: O2SAT 98
[2022-07-29] MEDS: levETIRAcetam 500 MG/5 ML LIQUID UDC GT SCH ×2 (08:33→20:25)
[2022-07-29] MEDS: LACOSAMIDE 100 MG/10 ML UDC GT SCH ×2 (08:34→20:26)
[2022-07-29] MEDS: METOCLOPRAMIDE HCL 10 MG TABLET GT SCH ×3 (08:34→18:48)
[2022-07-29] MEDS: ACIDOPHILUS/BULGARICUS CHEW TAB GT SCH ×2 (08:34→21:00)
[2022-07-29] MEDS: TIZANIDINE HCL 4 MG TABLET GT SCH ×2 (08:35→18:48)
[2022-07-29] MEDS: REMEDY ESSENTIAL ZINC PASTE 113 GM TP SCH ×2 (08:35→21:00)
[2022-07-29] MEDS: HYDROGEN PEROXIDE 3% 118 ML BOTTLE TOP SCH ×2 (09:41→19:27)
[2022-07-29] MEDS: BISACODYL 10 MG SUPP.RECT RC PRN (14:00)
[2022-07-29 20:50] VITALS: O2SAT 98
[2022-07-29] MEDS: NUTRISOURCE FIBER 4 GM PACKET GT SCH (21:00)
[2022-07-29] MEDS: MELATONIN 5MG TABLET GT SCH (21:00)
[2022-07-29] MEDS: RIVAROXABAN 10 MG TABLET GT SCH (21:00)
[2022-07-30] MEDS: FAMOTIDINE 20 MG TABLET GT SCH ×2 (05:29→18:41)
[2022-07-30 07:30] VITALS: O2SAT 98
[2022-07-30 08:00] VITALS: TEMP 98.9
[2022-07-30] MEDS: levETIRAcetam 500 MG/5 ML LIQUID UDC GT SCH ×2 (08:00→20:00)
[2022-07-30] MEDS: LACOSAMIDE 100 MG/10 ML UDC GT SCH ×2 (08:00→20:00)
[2022-07-30] MEDS: METOCLOPRAMIDE HCL 10 MG TABLET GT SCH ×3 (09:00→18:42)
[2022-07-30] MEDS: HYDROGEN PEROXIDE 3% 118 ML BOTTLE TOP SCH ×2 (09:00→20:45)
[2022-07-30] MEDS: TIZANIDINE HCL 4 MG TABLET GT SCH ×2 (09:00→18:42)
[2022-07-30] MEDS: [UNRECOGNIZED DRUG - OTHER] TP SCH (09:00)
[2022-07-30] MEDS: ACIDOPHILUS/BULGARICUS CHEW TAB GT SCH ×2 (09:00→21:00)
[2022-07-30] MEDS: REMEDY ESSENTIAL ZINC PASTE 113 GM TP SCH ×2 (09:00→21:00)
[2022-07-30 11:50] VITALS: O2SAT 98
[2022-07-30 15:15] VITALS: O2SAT 98
[2022-07-30 20:28] VITALS: TEMP 98.5
[2022-07-30 20:35] VITALS: O2SAT 98
[2022-07-30] MEDS: MELATONIN 5MG TABLET GT SCH (21:00)
[2022-07-30] MEDS: NUTRISOURCE FIBER 4 GM PACKET GT SCH (21:00)
[2022-07-30] MEDS: RIVAROXABAN 10 MG TABLET GT SCH (21:00)
[2022-07-31] MEDS: FAMOTIDINE 20 MG TABLET GT SCH ×2 (05:14→18:48)
[2022-07-31] MEDS: HYDROGEN PEROXIDE 3% 118 ML BOTTLE TOP SCH ×2 (08:20→21:00)
[2022-07-31] MEDS: levETIRAcetam 500 MG/5 ML LIQUID UDC GT SCH ×2 (08:21→20:00)
[2022-07-31] MEDS: ACIDOPHILUS/BULGARICUS CHEW TAB GT SCH ×2 (08:21→21:00)
[2022-07-31] MEDS: LACOSAMIDE 100 MG/10 ML UDC GT SCH ×2 (08:21→20:00)
[2022-07-31] MEDS: TIZANIDINE HCL 4 MG TABLET GT SCH ×2 (08:23→18:48)
[2022-07-31] MEDS: REMEDY ESSENTIAL ZINC PASTE 113 GM TP SCH ×2 (08:23→21:00)
[2022-07-31] MEDS: METOCLOPRAMIDE HCL 10 MG TABLET GT SCH ×3 (08:23→18:48)
[2022-07-31 10:33] VITALS: O2SAT 98
[2022-07-31] MEDS: VITAL AF 1.2 1,000 ML LIQUID GT PRN (13:00)
[2022-07-31 20:00] VITALS: TEMP 98.3
[2022-07-31] MEDS: MELATONIN 5MG TABLET GT SCH (21:00)
[2022-07-31] MEDS: NUTRISOURCE FIBER 4 GM PACKET GT SCH (21:00)
[2022-07-31] MEDS: RIVAROXABAN 10 MG TABLET GT SCH (21:00)
[2022-08-01] MEDS: FAMOTIDINE 20 MG TABLET GT SCH ×2 (05:35→18:45)
[2022-08-01 07:30] VITALS: TEMP 98.3
[2022-08-01] MEDS: LACOSAMIDE 100 MG/10 ML UDC GT SCH ×2 (08:22→20:20)
[2022-08-01] MEDS: levETIRAcetam 500 MG/5 ML LIQUID UDC GT SCH ×2 (08:22→20:20)
[2022-08-01] MEDS: METOCLOPRAMIDE HCL 10 MG TABLET GT SCH ×3 (08:22→18:45)
[2022-08-01] MEDS: ACIDOPHILUS/BULGARICUS CHEW TAB GT SCH ×2 (08:22→20:08)
[2022-08-01] MEDS: REMEDY ESSENTIAL ZINC PASTE 113 GM TP SCH ×2 (08:23→20:20)
[2022-08-01] MEDS: [UNRECOGNIZED DRUG - OTHER] TP SCH (08:23)
[2022-08-01] MEDS: TIZANIDINE HCL 4 MG TABLET GT SCH ×2 (08:23→18:45)
[2022-08-01 08:40] VITALS: O2SAT 98
[2022-08-01] MEDS: HYDROGEN PEROXIDE 3% 118 ML BOTTLE TOP SCH ×2 (08:40→21:54)
[2022-08-01] MEDS: VITAL AF 1.2 1,000 ML LIQUID GT PRN (15:41)
[2022-08-01 20:00] VITALS: TEMP 97.8
[2022-08-01] MEDS: MELATONIN 5MG TABLET GT SCH (20:08)
[2022-08-01] MEDS: NUTRISOURCE FIBER 4 GM PACKET GT SCH (20:08)
[2022-08-01] MEDS: RIVAROXABAN 10 MG TABLET GT SCH (21:00)
[2022-08-02 04:17] VITALS: O2SAT 98
[2022-08-02] MEDS: FAMOTIDINE 20 MG TABLET GT SCH ×2 (06:00→06:21)
[2022-08-02 07:26] VITALS: TEMP 98.7
[2022-08-02] MEDS: LACOSAMIDE 100 MG/10 ML UDC GT SCH ×2 (08:33→20:29)
[2022-08-02] MEDS: METOCLOPRAMIDE HCL 10 MG TABLET GT SCH ×3 (08:36→12:54)
[2022-08-02] MEDS: TIZANIDINE HCL 4 MG TABLET GT SCH ×2 (08:36→09:00)
[2022-08-02] MEDS: ACIDOPHILUS/BULGARICUS CHEW TAB GT SCH ×2 (08:36→21:57)
[2022-08-02] MEDS: REMEDY ESSENTIAL ZINC PASTE 113 GM TP SCH ×2 (08:37→21:57)
[2022-08-02] MEDS: levETIRAcetam 500 MG/5 ML LIQUID UDC GT SCH ×2 (08:38→20:29)
[2022-08-02] MEDS: HYDROGEN PEROXIDE 3% 118 ML BOTTLE TOP SCH ×2 (09:18→19:10)
[2022-08-02 13:48] VITALS: O2SAT 98
[2022-08-02] MEDS: BISACODYL 10 MG SUPP.RECT RC PRN (14:00)
[2022-08-02] MEDS: VITAL AF 1.2 1,000 ML LIQUID GT PRN (16:27)
[2022-08-02 20:20] VITALS: O2SAT 98
[2022-08-02] MEDS: MELATONIN 5MG TABLET GT SCH (21:57)
[2022-08-02] MEDS: RIVAROXABAN 10 MG TABLET GT SCH (21:57)
[2022-08-02] MEDS: NUTRISOURCE FIBER 4 GM PACKET GT SCH (21:57)
[2022-08-02 23:00] VITALS: TEMP 97.8
[2022-08-03] MEDS: FAMOTIDINE 20 MG TABLET GT SCH ×2 (05:25→18:46)
[2022-08-03 07:48] VITALS: TEMP 98.2
[2022-08-03] MEDS: LACOSAMIDE 100 MG/10 ML UDC GT SCH ×2 (08:48→19:56)
[2022-08-03] MEDS: levETIRAcetam 500 MG/5 ML LIQUID UDC GT SCH ×2 (08:48→19:56)
[2022-08-03] MEDS: ACIDOPHILUS/BULGARICUS CHEW TAB GT SCH ×2 (08:48→21:00)
[2022-08-03] MEDS: HYDROGEN PEROXIDE 3% 118 ML BOTTLE TOP SCH ×2 (09:00→20:55)
[2022-08-03] MEDS: [UNRECOGNIZED DRUG - OTHER] TP SCH (09:00)
[2022-08-03] MEDS: TIZANIDINE HCL 4 MG TABLET GT SCH ×2 (09:00→18:45)
[2022-08-03] MEDS: REMEDY ESSENTIAL ZINC PASTE 113 GM TP SCH ×2 (09:00→21:00)
[2022-08-03 10:43] VITALS: O2SAT 98
[2022-08-03] MEDS: METOCLOPRAMIDE HCL 10 MG TABLET GT SCH ×3 (12:30→18:49)
[2022-08-03 17:14] VITALS: O2SAT 98
[2022-08-03] MEDS: VITAL AF 1.2 1,000 ML LIQUID GT PRN (18:49)
[2022-08-03 20:00] VITALS: O2SAT 98
[2022-08-03 20:38] VITALS: TEMP 97.8
[2022-08-03] MEDS: NUTRISOURCE FIBER 4 GM PACKET GT SCH (21:00)
[2022-08-03] MEDS: RIVAROXABAN 10 MG TABLET GT SCH (21:00)
[2022-08-03] MEDS: MELATONIN 5MG TABLET GT SCH (21:00)
[2022-08-04] MEDS: FAMOTIDINE 20 MG TABLET GT SCH ×2 (05:13→18:48)
[2022-08-04 07:31] VITALS: TEMP 97.7
[2022-08-04] MEDS: LACOSAMIDE 100 MG/10 ML UDC GT SCH ×2 (08:00→20:20)
[2022-08-04] MEDS: levETIRAcetam 500 MG/5 ML LIQUID UDC GT SCH ×2 (08:00→20:20)
[2022-08-04] MEDS: REMEDY ESSENTIAL ZINC PASTE 113 GM TP SCH ×2 (09:00→21:54)
[2022-08-04] MEDS: ACIDOPHILUS/BULGARICUS CHEW TAB GT SCH ×2 (09:20→21:54)
[2022-08-04] MEDS: METOCLOPRAMIDE HCL 10 MG TABLET GT SCH ×3 (09:20→18:48)
[2022-08-04 10:05] VITALS: O2SAT 98
[2022-08-04] MEDS: HYDROGEN PEROXIDE 3% 118 ML BOTTLE TOP SCH ×2 (10:05→21:12)
[2022-08-04 15:29] VITALS: O2SAT 98
[2022-08-04] MEDS: TIZANIDINE HCL 4 MG TABLET GT SCH (18:45)
[2022-08-04 21:10] VITALS: O2SAT 98
[2022-08-04 21:35] VITALS: TEMP 98.1
[2022-08-04] MEDS: VITAL AF 1.2 1,000 ML LIQUID GT PRN (21:42)
[2022-08-04] MEDS: RIVAROXABAN 10 MG TABLET GT SCH (21:46)
[2022-08-04] MEDS: NUTRISOURCE FIBER 4 GM PACKET GT SCH (21:54)
[2022-08-04] MEDS: MELATONIN 5MG TABLET GT SCH (21:54)
[2022-08-05] MEDS: FAMOTIDINE 20 MG TABLET GT SCH ×2 (05:41→18:49)
[2022-08-05 07:41] VITALS: TEMP 97
[2022-08-05] MEDS: HYDROGEN PEROXIDE 3% 118 ML BOTTLE TOP SCH ×2 (08:39→21:07)
[2022-08-05] MEDS: LACOSAMIDE 100 MG/10 ML UDC GT SCH ×2 (08:55→20:10)
[2022-08-05] MEDS: levETIRAcetam 500 MG/5 ML LIQUID UDC GT SCH ×2 (08:55→20:10)
[2022-08-05] MEDS: ACIDOPHILUS/BULGARICUS CHEW TAB GT SCH ×2 (08:55→21:00)
[2022-08-05] MEDS: TIZANIDINE HCL 4 MG TABLET GT SCH ×3 (08:55→18:45)
[2022-08-05] MEDS: METOCLOPRAMIDE HCL 10 MG TABLET GT SCH ×3 (08:56→18:49)
[2022-08-05] MEDS: [UNRECOGNIZED DRUG - OTHER] TP SCH (08:56)
[2022-08-05] MEDS: REMEDY ESSENTIAL ZINC PASTE 113 GM TP SCH ×2 (08:56→21:00)
[2022-08-05 16:11] VITALS: O2SAT 98
[2022-08-05 20:40] VITALS: TEMP 97.8
[2022-08-05] MEDS: NUTRISOURCE FIBER 4 GM PACKET GT SCH (21:00)
[2022-08-05] MEDS: MELATONIN 5MG TABLET GT SCH (21:00)
[2022-08-05] MEDS: RIVAROXABAN 10 MG TABLET GT SCH (21:00)
[2022-08-05 21:26] VITALS: O2SAT 98
[2022-08-06] MEDS: VITAL AF 1.2 1,000 ML LIQUID GT PRN (01:39)
[2022-08-06] MEDS: FAMOTIDINE 20 MG TABLET GT SCH ×2 (05:18→18:42)
[2022-08-06 08:00] VITALS: TEMP 97.2
[2022-08-06] MEDS: HYDROGEN PEROXIDE 3% 118 ML BOTTLE TOP SCH ×2 (08:23→21:45)
[2022-08-06] MEDS: levETIRAcetam 500 MG/5 ML LIQUID UDC GT SCH ×2 (08:36→20:08)
[2022-08-06] MEDS: REMEDY ESSENTIAL ZINC PASTE 113 GM TP SCH ×2 (08:37→21:00)
[2022-08-06] MEDS: LACOSAMIDE 100 MG/10 ML UDC GT SCH ×2 (08:37→20:08)
[2022-08-06] MEDS: ACIDOPHILUS/BULGARICUS CHEW TAB GT SCH ×2 (08:37→21:00)
[2022-08-06] MEDS: METOCLOPRAMIDE HCL 10 MG TABLET GT SCH ×3 (08:37→18:42)
[2022-08-06] MEDS: TIZANIDINE HCL 4 MG TABLET GT SCH ×2 (08:42→18:42)
[2022-08-06 14:57] VITALS: O2SAT 98
[2022-08-06 20:30] VITALS: TEMP 97.8; O2SAT 98
[2022-08-06] MEDS: MELATONIN 5MG TABLET GT SCH (21:00)
[2022-08-06] MEDS: NUTRISOURCE FIBER 4 GM PACKET GT SCH (21:00)
[2022-08-06] MEDS: RIVAROXABAN 10 MG TABLET GT SCH (21:00)
[2022-08-07] MEDS: FAMOTIDINE 20 MG TABLET GT SCH ×2 (05:11→18:28)
[2022-08-07 07:44] VITALS: TEMP 98.1
[2022-08-07] MEDS: LACOSAMIDE 100 MG/10 ML UDC GT SCH ×2 (08:00→20:13)
[2022-08-07] MEDS: levETIRAcetam 500 MG/5 ML LIQUID UDC GT SCH ×2 (08:00→20:13)
[2022-08-07] MEDS: HYDROGEN PEROXIDE 3% 118 ML BOTTLE TOP SCH ×2 (08:44→21:00)
[2022-08-07] MEDS: TIZANIDINE HCL 4 MG TABLET GT SCH ×2 (09:03→18:28)
[2022-08-07] MEDS: METOCLOPRAMIDE HCL 10 MG TABLET GT SCH ×3 (09:03→18:28)
[2022-08-07] MEDS: ACIDOPHILUS/BULGARICUS CHEW TAB GT SCH ×2 (09:03→21:00)
[2022-08-07] MEDS: REMEDY ESSENTIAL ZINC PASTE 113 GM TP SCH ×2 (09:04→21:00)
[2022-08-07] MEDS: [UNRECOGNIZED DRUG - OTHER] TP SCH (09:04)
[2022-08-07 12:29] VITALS: O2SAT 98
[2022-08-07 20:25] VITALS: O2SAT 98
[2022-08-07] MEDS: NUTRISOURCE FIBER 4 GM PACKET GT SCH (21:00)
[2022-08-07] MEDS: MELATONIN 5MG TABLET GT SCH (21:00)
[2022-08-07] MEDS: RIVAROXABAN 10 MG TABLET GT SCH (21:00)
[2022-08-08] MEDS: FAMOTIDINE 20 MG TABLET GT SCH ×2 (05:59→18:39)
[2022-08-08 07:17] VITALS: TEMP 98
[2022-08-08] MEDS: HYDROGEN PEROXIDE 3% 118 ML BOTTLE TOP SCH ×2 (08:05→19:13)
[2022-08-08] MEDS: levETIRAcetam 500 MG/5 ML LIQUID UDC GT SCH ×2 (08:17→19:55)
[2022-08-08] MEDS: LACOSAMIDE 100 MG/10 ML UDC GT SCH ×2 (08:17→19:55)
[2022-08-08] MEDS: REMEDY ESSENTIAL ZINC PASTE 113 GM TP SCH ×2 (08:18→21:00)
[2022-08-08] MEDS: ACIDOPHILUS/BULGARICUS CHEW TAB GT SCH ×2 (08:18→21:00)
[2022-08-08] MEDS: TIZANIDINE HCL 4 MG TABLET GT SCH ×2 (08:18→18:39)
[2022-08-08] MEDS: METOCLOPRAMIDE HCL 10 MG TABLET GT SCH ×3 (08:18→18:39)
[2022-08-08] MEDS: VITAL AF 1.2 1,000 ML LIQUID GT PRN (10:03)
[2022-08-08 10:50] VITALS: O2SAT 98
[2022-08-08 19:55] VITALS: O2SAT 98
[2022-08-08 20:31] VITALS: TEMP 98.4
[2022-08-08] MEDS: NUTRISOURCE FIBER 4 GM PACKET GT SCH (21:00)
[2022-08-08] MEDS: RIVAROXABAN 10 MG TABLET GT SCH (21:00)
[2022-08-08] MEDS: MELATONIN 5MG TABLET GT SCH (21:00)
[2022-08-09] MEDS: FAMOTIDINE 20 MG TABLET GT SCH ×2 (06:09→18:43)
[2022-08-09 07:21] VITALS: TEMP 97.8
[2022-08-09] MEDS: HYDROGEN PEROXIDE 3% 118 ML BOTTLE TOP SCH ×2 (07:35→20:01)
[2022-08-09 07:36] VITALS: O2SAT 98
[2022-08-09] MEDS: levETIRAcetam 500 MG/5 ML LIQUID UDC GT SCH ×2 (08:03→20:01)
[2022-08-09] MEDS: LACOSAMIDE 100 MG/10 ML UDC GT SCH ×2 (08:03→20:01)
[2022-08-09] MEDS: ACIDOPHILUS/BULGARICUS CHEW TAB GT SCH ×2 (08:04→21:00)
[2022-08-09] MEDS: [UNRECOGNIZED DRUG - OTHER] TP SCH (08:04)
[2022-08-09] MEDS: TIZANIDINE HCL 4 MG TABLET GT SCH ×2 (08:04→18:43)
[2022-08-09] MEDS: METOCLOPRAMIDE HCL 10 MG TABLET GT SCH ×3 (08:04→18:43)
[2022-08-09] MEDS: REMEDY ESSENTIAL ZINC PASTE 113 GM TP SCH ×2 (08:04→21:00)
[2022-08-09] MEDS: BISACODYL 10 MG SUPP.RECT RC PRN (15:44)
[2022-08-09] MEDS: VITAL AF 1.2 1,000 ML LIQUID GT PRN (16:15)
[2022-08-09 18:50] VITALS: O2SAT 98
[2022-08-09] MEDS: RIVAROXABAN 10 MG TABLET GT SCH (21:00)
[2022-08-09] MEDS: NUTRISOURCE FIBER 4 GM PACKET GT SCH (21:00)
[2022-08-09] MEDS: MELATONIN 5MG TABLET GT SCH (21:00)
[2022-08-10] MEDS: FAMOTIDINE 20 MG TABLET GT SCH ×2 (05:40→19:02)
[2022-08-10] MEDS: LACOSAMIDE 100 MG/10 ML UDC GT SCH ×2 (08:30→20:08)
[2022-08-10] MEDS: levETIRAcetam 500 MG/5 ML LIQUID UDC GT SCH ×2 (08:30→20:08)
[2022-08-10] MEDS: ACIDOPHILUS/BULGARICUS CHEW TAB GT SCH ×2 (08:31→21:00)
[2022-08-10] MEDS: METOCLOPRAMIDE HCL 10 MG TABLET GT SCH ×3 (08:32→19:02)
[2022-08-10] MEDS: REMEDY ESSENTIAL ZINC PASTE 113 GM TP SCH ×2 (08:32→21:00)
[2022-08-10] MEDS: TIZANIDINE HCL 4 MG TABLET GT SCH ×2 (08:32→19:03)
[2022-08-10] MEDS: HYDROGEN PEROXIDE 3% 118 ML BOTTLE TOP SCH ×2 (08:35→20:35)
[2022-08-10 12:50] VITALS: O2SAT 98
[2022-08-10 20:00] VITALS: TEMP 97.9
[2022-08-10] MEDS: RIVAROXABAN 10 MG TABLET GT SCH (21:00)
[2022-08-10] MEDS: NUTRISOURCE FIBER 4 GM PACKET GT SCH (21:00)
[2022-08-10] MEDS: MELATONIN 5MG TABLET GT SCH (21:00)
[2022-08-10] MEDS: VITAL AF 1.2 1,000 ML LIQUID GT PRN (22:25)
[2022-08-10] MEDS: VITAL 1.5 CAL LIQUID GT PRN (22:25)
[2022-08-11] MEDS: FAMOTIDINE 20 MG TABLET GT SCH ×2 (06:03→18:46)
[2022-08-11 07:29] VITALS: TEMP 98
[2022-08-11] MEDS: HYDROGEN PEROXIDE 3% 118 ML BOTTLE TOP SCH ×2 (08:08→21:24)
[2022-08-11] MEDS: LACOSAMIDE 100 MG/10 ML UDC GT SCH ×2 (09:00→20:01)
[2022-08-11] MEDS: levETIRAcetam 500 MG/5 ML LIQUID UDC GT SCH ×2 (09:00→20:01)
[2022-08-11] MEDS: ACIDOPHILUS/BULGARICUS CHEW TAB GT SCH ×2 (09:01→20:01)
[2022-08-11] MEDS: [UNRECOGNIZED DRUG - OTHER] TP SCH (09:01)
[2022-08-11] MEDS: TIZANIDINE HCL 4 MG TABLET GT SCH ×2 (09:01→18:46)
[2022-08-11] MEDS: REMEDY ESSENTIAL ZINC PASTE 113 GM TP SCH ×2 (09:01→21:14)
[2022-08-11] MEDS: METOCLOPRAMIDE HCL 10 MG TABLET GT SCH ×3 (09:01→18:46)
[2022-08-11 10:50] VITALS: O2SAT 98
[2022-08-11 20:00] VITALS: TEMP 97.9
[2022-08-11 20:37] VITALS: O2SAT 98
[2022-08-11] MEDS: NUTRISOURCE FIBER 4 GM PACKET GT SCH (20:56)
[2022-08-11] MEDS: MELATONIN 5MG TABLET GT SCH (21:00)
[2022-08-11] MEDS: RIVAROXABAN 10 MG TABLET GT SCH (21:13)
[2022-08-12] MEDS: ONDANSETRON HCL 4 MG TABLET GT PRN (04:42)
[2022-08-12] MEDS: FAMOTIDINE 20 MG TABLET GT SCH ×2 (05:28→18:39)
[2022-08-12] MEDS: VITAL AF 1.2 1,000 ML LIQUID GT PRN (06:24)
[2022-08-12] MEDS: LACOSAMIDE 100 MG/10 ML UDC GT SCH ×2 (08:41→20:00)
[2022-08-12] MEDS: ACIDOPHILUS/BULGARICUS CHEW TAB GT SCH ×2 (08:41→20:04)
[2022-08-12] MEDS: levETIRAcetam 500 MG/5 ML LIQUID UDC GT SCH ×2 (08:41→20:00)
[2022-08-12] MEDS: REMEDY ESSENTIAL ZINC PASTE 113 GM TP SCH ×2 (08:42→21:14)
[2022-08-12] MEDS: METOCLOPRAMIDE HCL 10 MG TABLET GT SCH ×3 (08:42→18:39)
[2022-08-12] MEDS: TIZANIDINE HCL 4 MG TABLET GT SCH ×2 (08:42→18:39)
[2022-08-12] MEDS: HYDROGEN PEROXIDE 3% 118 ML BOTTLE TOP SCH ×2 (10:30→20:58)
[2022-08-12 10:31] VITALS: O2SAT 98
[2022-08-12] MEDS: MELATONIN 5MG TABLET GT SCH (20:04)
[2022-08-12 20:05] VITALS: O2SAT 98
[2022-08-12] MEDS: NUTRISOURCE FIBER 4 GM PACKET GT SCH (21:00)
[2022-08-12 21:15] VITALS: TEMP 98.5
[2022-08-12] MEDS: RIVAROXABAN 10 MG TABLET GT SCH (21:29)
[2022-08-13] MEDS: FAMOTIDINE 20 MG TABLET GT SCH ×2 (05:26→18:31)
[2022-08-13 07:47] VITALS: TEMP 98.2
[2022-08-13] MEDS: LACOSAMIDE 100 MG/10 ML UDC GT SCH ×2 (08:00→20:02)
[2022-08-13] MEDS: levETIRAcetam 500 MG/5 ML LIQUID UDC GT SCH ×2 (08:00→20:02)
[2022-08-13] MEDS: METOCLOPRAMIDE HCL 10 MG TABLET GT SCH ×3 (09:00→18:31)
[2022-08-13] MEDS: HYDROGEN PEROXIDE 3% 118 ML BOTTLE TOP SCH ×2 (09:00→20:50)
[2022-08-13] MEDS: REMEDY ESSENTIAL ZINC PASTE 113 GM TP SCH ×2 (09:00→21:53)
[2022-08-13] MEDS: TIZANIDINE HCL 4 MG TABLET GT SCH ×2 (09:00→18:31)
[2022-08-13] MEDS: [UNRECOGNIZED DRUG - OTHER] TP SCH (09:00)
[2022-08-13] MEDS: ACIDOPHILUS/BULGARICUS CHEW TAB GT SCH ×2 (09:00→21:52)
[2022-08-13 20:09] VITALS: TEMP 97.8
[2022-08-13 20:51] VITALS: O2SAT 99
[2022-08-13] MEDS: MELATONIN 5MG TABLET GT SCH (21:53)
[2022-08-13] MEDS: NUTRISOURCE FIBER 4 GM PACKET GT SCH (21:53)
[2022-08-13] MEDS: RIVAROXABAN 10 MG TABLET GT SCH (21:55)
[2022-08-14] MEDS: FAMOTIDINE 20 MG TABLET GT SCH ×2 (06:17→18:30)
[2022-08-14 06:30] LABS: BASOPHILS % (AUTO) 0.3 % (0.0-2.0); EOSINOPHILS # (AUTO) 0.4 K/uL (0.0-0.7); EOSINOPHILS % (AUTO) 4.1 % (0.0-7.0); HEMATOCRIT 39.3 % (31.2-41.9); HEMOGLOBIN 12.8 g/dL (10.9-14.3); LYMPHOCYTES # (AUTO) 1.4 K/uL (0.8-4.8); LYMPHOCYTES % (AUTO) 15.1 % (20.5-51.5); MEAN CORPUSCULAR HEMOGLOBIN 29.4 uug (24.7-32.8); MEAN CORPUSCULAR HGB CONC 33 g/dL (32.3-35.6); MEAN CORPUSCULAR VOLUME 90.3 fL (75.5-95.3); MONOCYTES # (AUTO) 0.6 K/uL (0.1-1.30); MONOCYTES % (AUTO) 6.3 % (0.0-11.0); NEUTROPHILS # (AUTO) 6.7 K/uL (1.8-8.9); NEUTROPHILS % (AUTO) 74.2 % (38.5-71.5); PLATELET COUNT (AUTO) 272 K/uL (179-408); RED BLOOD CELL COUNT(AUTO) 4.35 MIL/uL (3.63-4.92); RED CELL DISTRIBUTION WIDTH 12.9 % (12.3-17.7)
[2022-08-14 07:28] LABS: DIFFERENTIAL COMMENT 1
[2022-08-14 07:33] LABS: CALCIUM 9.3 mg/dL (8.5-10.1); CARBON DIOXIDE 28 mmol/L (21-32); CHLORIDE 106 mmol/L (98-107); CREATININE 0.5 mg/dL (0.6-1.3); GLUCOSE 89 mg/dL (74-106); MAGNESIUM 2.3 mg/dL (1.8-2.4); PHOSPHOROUS 4.5 mg/dL (2.5-4.9); POTASSIUM 4.7 mmol/L (3.5-5.1); SODIUM SERUM 144 mmol/L (136-145); UREA NITROGEN, BLOOD 10 mg/dL (7-18)
[2022-08-14] MEDS: HYDROGEN PEROXIDE 3% 118 ML BOTTLE TOP SCH ×2 (08:22→21:00)
[2022-08-14] MEDS: levETIRAcetam 500 MG/5 ML LIQUID UDC GT SCH ×2 (08:55→20:09)
[2022-08-14] MEDS: LACOSAMIDE 100 MG/10 ML UDC GT SCH ×2 (08:56→20:09)
[2022-08-14] MEDS: TIZANIDINE HCL 4 MG TABLET GT SCH ×2 (08:56→18:30)
[2022-08-14] MEDS: ACIDOPHILUS/BULGARICUS CHEW TAB GT SCH ×2 (08:56→21:38)
[2022-08-14] MEDS: METOCLOPRAMIDE HCL 10 MG TABLET GT SCH ×3 (08:56→18:30)
[2022-08-14] MEDS: REMEDY ESSENTIAL ZINC PASTE 113 GM TP SCH ×2 (08:57→21:38)
[2022-08-14 09:34] VITALS: O2SAT 98
[2022-08-14 09:43] VITALS: TEMP 97.6
[2022-08-14] MEDS: VITAL AF 1.2 1,000 ML LIQUID GT PRN (13:47)
[2022-08-14 20:34] VITALS: TEMP 98
[2022-08-14 21:00] VITALS: O2SAT 99
[2022-08-14] MEDS: MELATONIN 5MG TABLET GT SCH (21:38)
[2022-08-14] MEDS: NUTRISOURCE FIBER 4 GM PACKET GT SCH (21:38)
[2022-08-14] MEDS: RIVAROXABAN 10 MG TABLET GT SCH (21:39)
[2022-08-15] MEDS: FAMOTIDINE 20 MG TABLET GT SCH ×2 (05:30→18:50)
[2022-08-15 07:13] VITALS: TEMP 98.2
[2022-08-15 07:45] VITALS: O2SAT 98
[2022-08-15 08:30] VITALS: BP 92/50; O2SAT 99
[2022-08-15] MEDS: LACOSAMIDE 100 MG/10 ML UDC GT SCH ×2 (08:30→20:00)
[2022-08-15] MEDS: METOCLOPRAMIDE HCL 10 MG TABLET GT SCH ×3 (08:30→18:50)
[2022-08-15] MEDS: [UNRECOGNIZED DRUG - OTHER] TP SCH (08:30)
[2022-08-15] MEDS: TIZANIDINE HCL 4 MG TABLET GT SCH ×2 (08:30→18:50)
[2022-08-15] MEDS: ACIDOPHILUS/BULGARICUS CHEW TAB GT SCH ×2 (08:30→21:00)
[2022-08-15] MEDS: levETIRAcetam 500 MG/5 ML LIQUID UDC GT SCH ×2 (08:30→20:00)
[2022-08-15] MEDS: REMEDY ESSENTIAL ZINC PASTE 113 GM TP SCH ×2 (08:31→21:00)
[2022-08-15] MEDS: HYDROGEN PEROXIDE 3% 118 ML BOTTLE TOP SCH ×2 (09:17→21:00)
[2022-08-15] MEDS: VITAL AF 1.2 1,000 ML LIQUID GT PRN (18:08)
[2022-08-15 20:19] VITALS: TEMP 98.3
[2022-08-15 20:55] VITALS: O2SAT 98
[2022-08-15] MEDS: RIVAROXABAN 10 MG TABLET GT SCH (21:00)
[2022-08-15] MEDS: MELATONIN 5MG TABLET GT SCH (21:00)
[2022-08-15] MEDS: NUTRISOURCE FIBER 4 GM PACKET GT SCH (21:00)
[2022-08-16] MEDS: FAMOTIDINE 20 MG TABLET GT SCH ×2 (05:16→18:47)
[2022-08-16 07:36] VITALS: TEMP 98.7
[2022-08-16] MEDS: METOCLOPRAMIDE HCL 10 MG TABLET GT SCH ×3 (08:12→18:47)
[2022-08-16] MEDS: LACOSAMIDE 100 MG/10 ML UDC GT SCH ×2 (08:12→20:13)
[2022-08-16] MEDS: ACIDOPHILUS/BULGARICUS CHEW TAB GT SCH ×2 (08:12→21:00)
[2022-08-16] MEDS: levETIRAcetam 500 MG/5 ML LIQUID UDC GT SCH ×2 (08:12→20:13)
[2022-08-16] MEDS: HYDROGEN PEROXIDE 3% 118 ML BOTTLE TOP SCH ×2 (08:12→19:19)
[2022-08-16] MEDS: REMEDY ESSENTIAL ZINC PASTE 113 GM TP SCH ×2 (08:13→21:00)
[2022-08-16] MEDS: TIZANIDINE HCL 4 MG TABLET GT SCH ×2 (08:13→18:47)
[2022-08-16 12:33] VITALS: O2SAT 98
[2022-08-16 19:55] VITALS: O2SAT 98
[2022-08-16 20:00] VITALS: TEMP 97.8
[2022-08-16] MEDS: RIVAROXABAN 10 MG TABLET GT SCH (21:00)
[2022-08-16] MEDS: MELATONIN 5MG TABLET GT SCH (21:00)
[2022-08-16] MEDS: NUTRISOURCE FIBER 4 GM PACKET GT SCH (21:00)
[2022-08-17] MEDS: VITAL AF 1.2 1,000 ML LIQUID GT PRN (03:50)
[2022-08-17] MEDS: FAMOTIDINE 20 MG TABLET GT SCH ×2 (05:26→18:48)
[2022-08-17] MEDS: HYDROGEN PEROXIDE 3% 118 ML BOTTLE TOP SCH ×2 (07:56→19:16)
[2022-08-17 07:57] VITALS: O2SAT 98
[2022-08-17] MEDS: levETIRAcetam 500 MG/5 ML LIQUID UDC GT SCH ×2 (08:00→20:36)
[2022-08-17] MEDS: LACOSAMIDE 100 MG/10 ML UDC GT SCH ×2 (08:00→20:36)
[2022-08-17 08:03] VITALS: TEMP 98.2
[2022-08-17] MEDS: TIZANIDINE HCL 4 MG TABLET GT SCH ×2 (09:16→18:48)
[2022-08-17] MEDS: ACIDOPHILUS/BULGARICUS CHEW TAB GT SCH ×2 (09:16→21:00)
[2022-08-17] MEDS: [UNRECOGNIZED DRUG - OTHER] TP SCH (09:16)
[2022-08-17] MEDS: METOCLOPRAMIDE HCL 10 MG TABLET GT SCH ×3 (09:16→18:48)
[2022-08-17] MEDS: REMEDY ESSENTIAL ZINC PASTE 113 GM TP SCH ×2 (09:16→21:00)
[2022-08-17 20:00] VITALS: TEMP 98; O2SAT 98
[2022-08-17] MEDS: MELATONIN 5MG TABLET GT SCH (21:00)
[2022-08-17] MEDS: NUTRISOURCE FIBER 4 GM PACKET GT SCH (21:00)
[2022-08-17] MEDS: RIVAROXABAN 10 MG TABLET GT SCH (21:00)
[2022-08-18] MEDS: FAMOTIDINE 20 MG TABLET GT SCH ×2 (05:38→18:48)
[2022-08-18 07:24] VITALS: TEMP 98.6
[2022-08-18] MEDS: HYDROGEN PEROXIDE 3% 118 ML BOTTLE TOP SCH ×2 (07:55→19:20)
[2022-08-18 07:56] VITALS: O2SAT 98
[2022-08-18] MEDS: LACOSAMIDE 100 MG/10 ML UDC GT SCH ×2 (08:57→20:22)
[2022-08-18] MEDS: levETIRAcetam 500 MG/5 ML LIQUID UDC GT SCH ×2 (08:58→20:22)
[2022-08-18] MEDS: ACIDOPHILUS/BULGARICUS CHEW TAB GT SCH ×2 (08:58→21:00)
[2022-08-18] MEDS: REMEDY ESSENTIAL ZINC PASTE 113 GM TP SCH ×2 (08:59→22:30)
[2022-08-18] MEDS: TIZANIDINE HCL 4 MG TABLET GT SCH ×2 (08:59→18:48)
[2022-08-18] MEDS: METOCLOPRAMIDE HCL 10 MG TABLET GT SCH ×3 (08:59→18:48)
[2022-08-18 20:00] VITALS: TEMP 97.8
[2022-08-18 20:35] VITALS: O2SAT 98
[2022-08-18] MEDS: RIVAROXABAN 10 MG TABLET GT SCH (22:30)
[2022-08-18] MEDS: NUTRISOURCE FIBER 4 GM PACKET GT SCH (22:30)
[2022-08-18] MEDS: MELATONIN 5MG TABLET GT SCH (22:30)
[2022-08-19] MEDS: FAMOTIDINE 20 MG TABLET GT SCH ×2 (05:55→18:50)
[2022-08-19 07:40] VITALS: TEMP 97.3
[2022-08-19] MEDS: levETIRAcetam 500 MG/5 ML LIQUID UDC GT SCH ×2 (08:06→20:00)
[2022-08-19] MEDS: LACOSAMIDE 100 MG/10 ML UDC GT SCH ×2 (08:06→20:00)
[2022-08-19] MEDS: TIZANIDINE HCL 4 MG TABLET GT SCH ×2 (08:07→18:49)
[2022-08-19] MEDS: METOCLOPRAMIDE HCL 10 MG TABLET GT SCH ×3 (08:07→18:49)
[2022-08-19] MEDS: ACIDOPHILUS/BULGARICUS CHEW TAB GT SCH ×2 (08:07→21:00)
[2022-08-19] MEDS: REMEDY ESSENTIAL ZINC PASTE 113 GM TP SCH ×2 (08:08→21:00)
[2022-08-19] MEDS: [UNRECOGNIZED DRUG - OTHER] TP SCH (08:08)
[2022-08-19] MEDS: HYDROGEN PEROXIDE 3% 118 ML BOTTLE TOP SCH ×2 (09:00→19:28)
[2022-08-19 12:07] VITALS: O2SAT 98
[2022-08-19 20:00] VITALS: TEMP 98.2
[2022-08-19] MEDS: MELATONIN 5MG TABLET GT SCH (21:00)
[2022-08-19] MEDS: RIVAROXABAN 10 MG TABLET GT SCH (21:00)
[2022-08-19] MEDS: NUTRISOURCE FIBER 4 GM PACKET GT SCH (21:00)
[2022-08-19 22:30] VITALS: O2SAT 98
[2022-08-20] MEDS: VITAL 1.5 CAL LIQUID GT PRN (00:35)
[2022-08-20] MEDS: FAMOTIDINE 20 MG TABLET GT SCH ×2 (05:38→18:30)
[2022-08-20 07:16] VITALS: O2SAT 98
[2022-08-20] MEDS: HYDROGEN PEROXIDE 3% 118 ML BOTTLE TOP SCH ×2 (07:44→19:26)
[2022-08-20 08:07] VITALS: TEMP 97.6
[2022-08-20] MEDS: LACOSAMIDE 100 MG/10 ML UDC GT SCH ×2 (08:40→20:22)
[2022-08-20] MEDS: METOCLOPRAMIDE HCL 10 MG TABLET GT SCH ×3 (08:40→18:30)
[2022-08-20] MEDS: REMEDY ESSENTIAL ZINC PASTE 113 GM TP SCH ×2 (08:40→21:40)
[2022-08-20] MEDS: levETIRAcetam 500 MG/5 ML LIQUID UDC GT SCH ×2 (08:40→20:34)
[2022-08-20] MEDS: TIZANIDINE HCL 4 MG TABLET GT SCH ×2 (08:40→18:30)
[2022-08-20] MEDS: ACIDOPHILUS/BULGARICUS CHEW TAB GT SCH ×2 (08:40→21:40)
[2022-08-20 20:38] VITALS: TEMP 98
[2022-08-20] MEDS: NUTRISOURCE FIBER 4 GM PACKET GT SCH (21:40)
[2022-08-20] MEDS: MELATONIN 5MG TABLET GT SCH (21:40)
[2022-08-20] MEDS: RIVAROXABAN 10 MG TABLET GT SCH (21:41)
[2022-08-21] MEDS: FAMOTIDINE 20 MG TABLET GT SCH ×2 (05:39→18:33)
[2022-08-21 07:38] LABS: CALCIUM 8.7 mg/dL (8.5-10.1); CARBON DIOXIDE 25 mmol/L (21-32); CHLORIDE 104 mmol/L (98-107); CREATININE 0.4 mg/dL (0.6-1.3); GLUCOSE 77 mg/dL (74-106); MAGNESIUM 2.1 mg/dL (1.8-2.4); PHOSPHOROUS 4.5 mg/dL (2.5-4.9); POTASSIUM 5.6 mmol/L (3.5-5.1); SODIUM SERUM 138 mmol/L (136-145); UREA NITROGEN, BLOOD 10 mg/dL (7-18)
[2022-08-21 07:52] VITALS: TEMP 98.9
[2022-08-21] MEDS: LACOSAMIDE 100 MG/10 ML UDC GT SCH ×2 (08:00→20:24)
[2022-08-21] MEDS: levETIRAcetam 500 MG/5 ML LIQUID UDC GT SCH ×2 (08:00→20:24)
[2022-08-21 08:31] LABS: BASOPHILS # (AUTO) 0.1 K/UL (0.0-0.2); BASOPHILS % (AUTO) 0.7 % (0.0-2.0); EOSINOPHILS # (AUTO) 0.7 K/uL (0.0-0.7); HEMATOCRIT 41.6 % (31.2-41.9); LYMPHOCYTES # (AUTO) 1.8 K/uL (0.8-4.8); LYMPHOCYTES % (AUTO) 21.5 % (20.5-51.5); MEAN CORPUSCULAR HEMOGLOBIN 30.2 uug (24.7-32.8); MEAN CORPUSCULAR HGB CONC 34 g/dL (32.3-35.6); MEAN CORPUSCULAR VOLUME 89.8 fL (75.5-95.3); MONOCYTES # (AUTO) 0.4 K/uL (0.1-1.30); MONOCYTES % (AUTO) 4.2 % (0.0-11.0); NEUTROPHILS # (AUTO) 5.6 K/uL (1.8-8.9); NEUTROPHILS % (AUTO) 65.6 % (38.5-71.5); PLATELET COUNT (AUTO) 299 K/uL (179-408); RED BLOOD CELL COUNT(AUTO) 4.63 MIL/uL (3.63-4.92); RED CELL DISTRIBUTION WIDTH 12.6 % (12.3-17.7); WHITE BLOOD COUNT (AUTO) 8.6 K/uL (3.8-11.8)
[2022-08-21 08:44] LABS: DIFFERENTIAL COMMENT 1
[2022-08-21] MEDS: HYDROGEN PEROXIDE 3% 118 ML BOTTLE TOP SCH ×2 (09:24→21:07)
[2022-08-21] MEDS: METOCLOPRAMIDE HCL 10 MG TABLET GT SCH ×3 (09:26→18:33)
[2022-08-21] MEDS: ACIDOPHILUS/BULGARICUS CHEW TAB GT SCH ×2 (09:26→21:00)
[2022-08-21] MEDS: [UNRECOGNIZED DRUG - OTHER] TP SCH (09:27)
[2022-08-21] MEDS: TIZANIDINE HCL 4 MG TABLET GT SCH ×2 (09:27→18:33)
[2022-08-21] MEDS: REMEDY ESSENTIAL ZINC PASTE 113 GM TP SCH ×2 (09:27→21:00)
[2022-08-21 10:18] VITALS: O2SAT 98
[2022-08-21 20:41] VITALS: TEMP 97.8
[2022-08-21 21:00] VITALS: O2SAT 99
[2022-08-21] MEDS: NUTRISOURCE FIBER 4 GM PACKET GT SCH (21:00)
[2022-08-21] MEDS: MELATONIN 5MG TABLET GT SCH (21:00)
[2022-08-21] MEDS: RIVAROXABAN 10 MG TABLET GT SCH (21:00)
[2022-08-22] MEDS: FAMOTIDINE 20 MG TABLET GT SCH ×2 (06:55→18:47)
[2022-08-22 07:14] VITALS: TEMP 97.9
[2022-08-22] MEDS: LACOSAMIDE 100 MG/10 ML UDC GT SCH ×2 (08:48→20:21)
[2022-08-22] MEDS: levETIRAcetam 500 MG/5 ML LIQUID UDC GT SCH ×2 (08:49→20:21)
[2022-08-22] MEDS: ACIDOPHILUS/BULGARICUS CHEW TAB GT SCH ×2 (08:49→21:31)
[2022-08-22] MEDS: TIZANIDINE HCL 4 MG TABLET GT SCH ×2 (08:50→18:47)
[2022-08-22] MEDS: REMEDY ESSENTIAL ZINC PASTE 113 GM TP SCH ×2 (08:50→21:19)
[2022-08-22] MEDS: METOCLOPRAMIDE HCL 10 MG TABLET GT SCH ×3 (08:50→18:47)
[2022-08-22] MEDS: HYDROGEN PEROXIDE 3% 118 ML BOTTLE TOP SCH ×2 (09:00→20:25)
[2022-08-22 10:20] VITALS: O2SAT 98
[2022-08-22 20:00] VITALS: TEMP 98
[2022-08-22 20:25] VITALS: O2SAT 99
[2022-08-22] MEDS: RIVAROXABAN 10 MG TABLET GT SCH (21:00)
[2022-08-22] MEDS: NUTRISOURCE FIBER 4 GM PACKET GT SCH (21:31)
[2022-08-22] MEDS: MELATONIN 5MG TABLET GT SCH (21:31)
[2022-08-23] MEDS: VITAL 1.5 CAL LIQUID GT PRN (00:50)
[2022-08-23] MEDS: FAMOTIDINE 20 MG TABLET GT SCH ×2 (05:24→18:51)
[2022-08-23 07:53] VITALS: O2SAT 98
[2022-08-23] MEDS: levETIRAcetam 500 MG/5 ML LIQUID UDC GT SCH ×2 (08:35→20:00)
[2022-08-23] MEDS: LACOSAMIDE 100 MG/10 ML UDC GT SCH ×2 (08:37→20:00)
[2022-08-23] MEDS: ACIDOPHILUS/BULGARICUS CHEW TAB GT SCH ×2 (08:37→21:00)
[2022-08-23] MEDS: METOCLOPRAMIDE HCL 10 MG TABLET GT SCH ×3 (08:57→18:51)
[2022-08-23] MEDS: TIZANIDINE HCL 4 MG TABLET GT SCH ×2 (08:57→18:51)
[2022-08-23] MEDS: HYDROGEN PEROXIDE 3% 118 ML BOTTLE TOP SCH ×2 (09:00→19:12)
[2022-08-23] MEDS: REMEDY ESSENTIAL ZINC PASTE 113 GM TP SCH ×2 (09:00→21:00)
[2022-08-23] MEDS: [UNRECOGNIZED DRUG - OTHER] TP SCH (09:00)
[2022-08-23 11:31] VITALS: TEMP 98.4
[2022-08-23 20:00] VITALS: TEMP 98.4
[2022-08-23] MEDS: NUTRISOURCE FIBER 4 GM PACKET GT SCH (21:00)
[2022-08-23] MEDS: RIVAROXABAN 10 MG TABLET GT SCH (21:00)
[2022-08-23] MEDS: MELATONIN 5MG TABLET GT SCH (21:00)
[2022-08-23 22:05] VITALS: O2SAT 99
[2022-08-24] MEDS: FAMOTIDINE 20 MG TABLET GT SCH ×2 (06:07→18:45)
[2022-08-24] MEDS: HYDROGEN PEROXIDE 3% 118 ML BOTTLE TOP SCH ×2 (08:04→21:25)
[2022-08-24 08:41] VITALS: TEMP 98.9
[2022-08-24] MEDS: TIZANIDINE HCL 4 MG TABLET GT SCH ×2 (08:58→18:46)
[2022-08-24] MEDS: LACOSAMIDE 100 MG/10 ML UDC GT SCH ×2 (08:58→20:04)
[2022-08-24] MEDS: ACIDOPHILUS/BULGARICUS CHEW TAB GT SCH ×2 (08:58→21:00)
[2022-08-24] MEDS: REMEDY ESSENTIAL ZINC PASTE 113 GM TP SCH ×2 (08:58→21:00)
[2022-08-24] MEDS: METOCLOPRAMIDE HCL 10 MG TABLET GT SCH ×3 (08:58→18:45)
[2022-08-24] MEDS: levETIRAcetam 500 MG/5 ML LIQUID UDC GT SCH ×2 (08:58→20:04)
[2022-08-24] MEDS: BISACODYL 10 MG SUPP.RECT RC PRN (12:17)
[2022-08-24 12:36] VITALS: O2SAT 98
[2022-08-24] MEDS: VITAL 1.5 CAL LIQUID GT PRN (16:55)
[2022-08-24 20:00] VITALS: TEMP 98.8
[2022-08-24 20:05] VITALS: O2SAT 99
[2022-08-24] MEDS: MELATONIN 5MG TABLET GT SCH (21:00)
[2022-08-24] MEDS: NUTRISOURCE FIBER 4 GM PACKET GT SCH (21:00)
[2022-08-24] MEDS: RIVAROXABAN 10 MG TABLET GT SCH (21:00)
[2022-08-25] MEDS: FAMOTIDINE 20 MG TABLET GT SCH ×2 (05:16→18:56)
[2022-08-25 07:31] VITALS: TEMP 97.9
[2022-08-25] MEDS: levETIRAcetam 500 MG/5 ML LIQUID UDC GT SCH ×2 (08:00→20:11)
[2022-08-25] MEDS: LACOSAMIDE 100 MG/10 ML UDC GT SCH ×2 (08:00→20:11)
[2022-08-25] MEDS: HYDROGEN PEROXIDE 3% 118 ML BOTTLE TOP SCH ×2 (08:25→20:59)
[2022-08-25] MEDS: TIZANIDINE HCL 4 MG TABLET GT SCH ×2 (09:27→18:56)
[2022-08-25] MEDS: METOCLOPRAMIDE HCL 10 MG TABLET GT SCH ×3 (09:27→18:56)
[2022-08-25] MEDS: REMEDY ESSENTIAL ZINC PASTE 113 GM TP SCH ×2 (09:27→21:00)
[2022-08-25] MEDS: [UNRECOGNIZED DRUG - OTHER] TP SCH (09:27)
[2022-08-25] MEDS: ACIDOPHILUS/BULGARICUS CHEW TAB GT SCH ×2 (09:27→21:00)
[2022-08-25 10:50] VITALS: O2SAT 99
[2022-08-25 20:00] VITALS: TEMP 97.9
[2022-08-25] MEDS: MELATONIN 5MG TABLET GT SCH (21:00)
[2022-08-25] MEDS: RIVAROXABAN 10 MG TABLET GT SCH (21:00)
[2022-08-25] MEDS: NUTRISOURCE FIBER 4 GM PACKET GT SCH (21:00)
[2022-08-25 23:09] VITALS: O2SAT 99
[2022-08-26] MEDS: VITAL 1.5 CAL LIQUID GT PRN (02:00)
[2022-08-26] MEDS: FAMOTIDINE 20 MG TABLET GT SCH ×2 (05:07→18:43)
[2022-08-26 08:00] VITALS: TEMP 98
[2022-08-26] MEDS: LACOSAMIDE 100 MG/10 ML UDC GT SCH ×2 (08:30→20:04)
[2022-08-26] MEDS: levETIRAcetam 500 MG/5 ML LIQUID UDC GT SCH ×2 (08:30→20:04)
[2022-08-26] MEDS: ACIDOPHILUS/BULGARICUS CHEW TAB GT SCH ×2 (08:37→21:00)
[2022-08-26] MEDS: REMEDY ESSENTIAL ZINC PASTE 113 GM TP SCH ×2 (08:38→21:00)
[2022-08-26] MEDS: METOCLOPRAMIDE HCL 10 MG TABLET GT SCH ×3 (08:38→18:44)
[2022-08-26] MEDS: TIZANIDINE HCL 4 MG TABLET GT SCH ×2 (08:38→18:45)
[2022-08-26] MEDS: HYDROGEN PEROXIDE 3% 118 ML BOTTLE TOP SCH ×2 (09:00→21:27)
[2022-08-26 11:02] VITALS: O2SAT 98
[2022-08-26 15:09] VITALS: O2SAT 98
[2022-08-26 19:50] VITALS: O2SAT 99
[2022-08-26 20:00] VITALS: TEMP 97.6
[2022-08-26] MEDS: RIVAROXABAN 10 MG TABLET GT SCH (21:00)
[2022-08-26] MEDS: MELATONIN 5MG TABLET GT SCH (21:00)
[2022-08-26] MEDS: NUTRISOURCE FIBER 4 GM PACKET GT SCH (21:00)
[2022-08-27] MEDS: FAMOTIDINE 20 MG TABLET GT SCH ×2 (05:40→18:45)
[2022-08-27 06:25] VITALS: O2SAT 99
[2022-08-27 06:36] VITALS: O2SAT 99
[2022-08-27 08:03] VITALS: TEMP 97.6; TEMP 97.9
[2022-08-27] MEDS: HYDROGEN PEROXIDE 3% 118 ML BOTTLE TOP SCH ×2 (08:14→20:58)
[2022-08-27] MEDS: LACOSAMIDE 100 MG/10 ML UDC GT SCH ×2 (08:38→20:00)
[2022-08-27] MEDS: ACIDOPHILUS/BULGARICUS CHEW TAB GT SCH ×2 (08:38→21:00)
[2022-08-27] MEDS: levETIRAcetam 500 MG/5 ML LIQUID UDC GT SCH ×2 (08:38→20:00)
[2022-08-27] MEDS: REMEDY ESSENTIAL ZINC PASTE 113 GM TP SCH ×2 (08:39→21:00)
[2022-08-27] MEDS: TIZANIDINE HCL 4 MG TABLET GT SCH ×2 (08:39→18:45)
[2022-08-27] MEDS: [UNRECOGNIZED DRUG - OTHER] TP SCH (08:39)
[2022-08-27] MEDS: METOCLOPRAMIDE HCL 10 MG TABLET GT SCH ×3 (08:39→18:45)
[2022-08-27 10:30] VITALS: O2SAT 98
[2022-08-27] MEDS: VITAL 1.5 CAL LIQUID GT PRN (14:37)
[2022-08-27] MEDS: RIVAROXABAN 10 MG TABLET GT SCH (21:00)
[2022-08-27] MEDS: NUTRISOURCE FIBER 4 GM PACKET GT SCH (21:00)
[2022-08-27] MEDS: MELATONIN 5MG TABLET GT SCH (21:00)
[2022-08-27 21:02] VITALS: O2SAT 98
[2022-08-28] MEDS: FAMOTIDINE 20 MG TABLET GT SCH ×2 (05:27→18:49)
[2022-08-28 08:15] VITALS: TEMP 97.9
[2022-08-28 08:28] VITALS: O2SAT 98
[2022-08-28] MEDS: HYDROGEN PEROXIDE 3% 118 ML BOTTLE TOP SCH ×2 (08:28→21:31)
[2022-08-28] MEDS: levETIRAcetam 500 MG/5 ML LIQUID UDC GT SCH ×2 (08:55→20:06)
[2022-08-28] MEDS: LACOSAMIDE 100 MG/10 ML UDC GT SCH ×2 (08:55→20:06)
[2022-08-28] MEDS: ACIDOPHILUS/BULGARICUS CHEW TAB GT SCH ×2 (09:06→21:00)
[2022-08-28] MEDS: METOCLOPRAMIDE HCL 10 MG TABLET GT SCH ×3 (09:06→18:49)
[2022-08-28] MEDS: REMEDY ESSENTIAL ZINC PASTE 113 GM TP SCH ×2 (09:07→21:00)
[2022-08-28] MEDS: TIZANIDINE HCL 4 MG TABLET GT SCH ×2 (09:07→18:49)
[2022-08-28] MEDS ORDERED: VITAL AF 1.2 1,000 ML LIQUID GT PRN ×2 (14:00)
[2022-08-28 20:00] VITALS: TEMP 97.7
[2022-08-28 21:00] VITALS: O2SAT 98
[2022-08-28] MEDS: RIVAROXABAN 10 MG TABLET GT SCH (21:00)
[2022-08-28] MEDS: NUTRISOURCE FIBER 4 GM PACKET GT SCH (21:00)
[2022-08-28] MEDS: MELATONIN 5MG TABLET GT SCH (21:00)
[2022-08-29] MEDS: FAMOTIDINE 20 MG TABLET GT SCH (06:01)
[2022-08-29 07:49] VITALS: TEMP 98.2
[2022-08-29] MEDS: METOCLOPRAMIDE HCL 10 MG TABLET GT SCH ×2 (08:27→12:35)
[2022-08-29] MEDS: ACIDOPHILUS/BULGARICUS CHEW TAB GT SCH ×2 (08:27→21:00)
[2022-08-29] MEDS: levETIRAcetam 500 MG/5 ML LIQUID UDC GT SCH ×2 (08:27→20:21)
[2022-08-29] MEDS: LACOSAMIDE 100 MG/10 ML UDC GT SCH ×2 (08:27→20:21)
[2022-08-29] MEDS: TIZANIDINE HCL 4 MG TABLET GT SCH (08:28)
[2022-08-29] MEDS: REMEDY ESSENTIAL ZINC PASTE 113 GM TP SCH ×2 (08:28→21:00)
[2022-08-29] MEDS: [UNRECOGNIZED DRUG - OTHER] TP SCH (08:28)
[2022-08-29 09:40] VITALS: O2SAT 99
[2022-08-29] MEDS: HYDROGEN PEROXIDE 3% 118 ML BOTTLE TOP SCH ×2 (09:40→20:49)
[2022-08-29 10:50] VITALS: O2SAT 98
[2022-08-29 19:55] VITALS: O2SAT 98
[2022-08-29 20:00] VITALS: TEMP 97.8
[2022-08-29] MEDS: VITAL AF 1.2 1,000 ML LIQUID GT PRN (20:00)
[2022-08-29] MEDS: MELATONIN 5MG TABLET GT SCH (21:00)
[2022-08-29] MEDS: RIVAROXABAN 10 MG TABLET GT SCH (21:00)
[2022-08-29] MEDS: NUTRISOURCE FIBER 4 GM PACKET GT SCH (21:00)
[2022-08-30] MEDS: FAMOTIDINE 20 MG TABLET GT SCH ×2 (05:48→18:48)
[2022-08-30 07:14] VITALS: TEMP 98.7
[2022-08-30] MEDS: levETIRAcetam 500 MG/5 ML LIQUID UDC GT SCH ×2 (08:00→20:24)
[2022-08-30] MEDS: LACOSAMIDE 100 MG/10 ML UDC GT SCH ×2 (08:00→20:24)
[2022-08-30] MEDS: HYDROGEN PEROXIDE 3% 118 ML BOTTLE TOP SCH (08:07)
[2022-08-30] MEDS: METOCLOPRAMIDE HCL 10 MG TABLET GT SCH ×3 (09:00→18:48)
[2022-08-30] MEDS: TIZANIDINE HCL 4 MG TABLET GT SCH ×2 (09:00→18:48)
[2022-08-30] MEDS: ACIDOPHILUS/BULGARICUS CHEW TAB GT SCH ×2 (09:07→21:00)
[2022-08-30] MEDS: REMEDY ESSENTIAL ZINC PASTE 113 GM TP SCH ×2 (09:08→21:00)
[2022-08-30 11:14] VITALS: O2SAT 98
[2022-08-30] MEDS: BISACODYL 10 MG SUPP.RECT RC PRN (16:06)
[2022-08-30 20:00] VITALS: TEMP 97.7
[2022-08-30] MEDS: MELATONIN 5MG TABLET GT SCH (21:00)
[2022-08-30] MEDS: NUTRISOURCE FIBER 4 GM PACKET GT SCH (21:00)
[2022-08-30] MEDS: RIVAROXABAN 10 MG TABLET GT SCH (21:00)
[2022-08-30] MEDS: VITAL AF 1.2 1,000 ML LIQUID GT PRN (21:54)
[2022-08-31] MEDS: FAMOTIDINE 20 MG TABLET GT SCH ×2 (05:38→18:47)
[2022-08-31 07:34] VITALS: TEMP 98.2
[2022-08-31] MEDS: levETIRAcetam 500 MG/5 ML LIQUID UDC GT SCH ×2 (08:09→20:00)
[2022-08-31] MEDS: LACOSAMIDE 100 MG/10 ML UDC GT SCH ×2 (08:10→20:00)
[2022-08-31] MEDS: HYDROGEN PEROXIDE 3% 118 ML BOTTLE TOP SCH ×2 (08:19→19:18)
[2022-08-31] MEDS: REMEDY ESSENTIAL ZINC PASTE 113 GM TP SCH ×2 (09:42→21:00)
[2022-08-31] MEDS: TIZANIDINE HCL 4 MG TABLET GT SCH ×2 (09:42→18:47)
[2022-08-31] MEDS: METOCLOPRAMIDE HCL 10 MG TABLET GT SCH ×3 (09:42→18:47)
[2022-08-31] MEDS: [UNRECOGNIZED DRUG - OTHER] TP SCH (09:42)
[2022-08-31] MEDS: ACIDOPHILUS/BULGARICUS CHEW TAB GT SCH ×2 (09:42→21:00)
[2022-08-31 10:15] VITALS: O2SAT 98
[2022-08-31 19:55] VITALS: O2SAT 98
[2022-08-31 20:00] VITALS: TEMP 98.4
[2022-08-31] MEDS: NUTRISOURCE FIBER 4 GM PACKET GT SCH (21:00)
[2022-08-31] MEDS: RIVAROXABAN 10 MG TABLET GT SCH (21:00)
[2022-08-31] MEDS: MELATONIN 5MG TABLET GT SCH (21:00)
[2022-09-01] MEDS: ONDANSETRON HCL 4 MG TABLET GT PRN (00:30)
[2022-09-01] MEDS: VITAL AF 1.2 1,000 ML LIQUID GT PRN (04:30)
[2022-09-01] MEDS: FAMOTIDINE 20 MG TABLET GT SCH ×2 (05:19→18:59)
[2022-09-01 07:47] VITALS: TEMP 97.6
[2022-09-01] MEDS: LACOSAMIDE 100 MG/10 ML UDC GT SCH ×2 (08:00→20:00)
[2022-09-01] MEDS: levETIRAcetam 500 MG/5 ML LIQUID UDC GT SCH ×2 (08:00→20:00)
[2022-09-01 08:16] VITALS: O2SAT 99
[2022-09-01] MEDS: HYDROGEN PEROXIDE 3% 118 ML BOTTLE TOP SCH ×2 (08:16→19:13)
[2022-09-01] MEDS: TIZANIDINE HCL 4 MG TABLET GT SCH ×2 (09:12→18:59)
[2022-09-01] MEDS: REMEDY ESSENTIAL ZINC PASTE 113 GM TP SCH ×2 (09:12→21:00)
[2022-09-01] MEDS: ACIDOPHILUS/BULGARICUS CHEW TAB GT SCH ×2 (09:12→21:00)
[2022-09-01] MEDS: METOCLOPRAMIDE HCL 10 MG TABLET GT SCH ×3 (09:12→18:59)
[2022-09-01 19:20] VITALS: O2SAT 98
[2022-09-01] MEDS: RIVAROXABAN 10 MG TABLET GT SCH (21:00)
[2022-09-01] MEDS: MELATONIN 5MG TABLET GT SCH (21:00)
[2022-09-01] MEDS: NUTRISOURCE FIBER 4 GM PACKET GT SCH (21:00)
[2022-09-02] MEDS: FAMOTIDINE 20 MG TABLET GT SCH ×2 (06:00→18:56)
[2022-09-02 08:00] VITALS: TEMP 97.8
[2022-09-02] MEDS: [UNRECOGNIZED DRUG - OTHER] TP SCH (08:24)
[2022-09-02] MEDS: METOCLOPRAMIDE HCL 10 MG TABLET GT SCH ×3 (08:24→18:56)
[2022-09-02] MEDS: TIZANIDINE HCL 4 MG TABLET GT SCH ×2 (08:24→18:56)
[2022-09-02] MEDS: LACOSAMIDE 100 MG/10 ML UDC GT SCH ×2 (08:24→20:13)
[2022-09-02] MEDS: REMEDY ESSENTIAL ZINC PASTE 113 GM TP SCH ×2 (08:24→21:55)
[2022-09-02] MEDS: ACIDOPHILUS/BULGARICUS CHEW TAB GT SCH ×2 (08:24→21:55)
[2022-09-02] MEDS: levETIRAcetam 500 MG/5 ML LIQUID UDC GT SCH ×2 (08:24→20:13)
[2022-09-02] MEDS: HYDROGEN PEROXIDE 3% 118 ML BOTTLE TOP SCH ×2 (09:40→19:23)
[2022-09-02] MEDS: VITAL AF 1.2 1,000 ML LIQUID GT PRN (10:08)
[2022-09-02 11:40] VITALS: O2SAT 98
[2022-09-02 20:00] VITALS: TEMP 98.2
[2022-09-02] MEDS: RIVAROXABAN 10 MG TABLET GT SCH (21:00)
[2022-09-02 21:28] VITALS: O2SAT 98
[2022-09-02] MEDS: MELATONIN 5MG TABLET GT SCH (21:55)
[2022-09-02] MEDS: NUTRISOURCE FIBER 4 GM PACKET GT SCH (21:55)
[2022-09-03] MEDS: FAMOTIDINE 20 MG TABLET GT SCH ×2 (06:16→18:54)
[2022-09-03 08:00] VITALS: TEMP 97.4
[2022-09-03] MEDS: ACIDOPHILUS/BULGARICUS CHEW TAB GT SCH ×2 (08:10→21:00)
[2022-09-03] MEDS: REMEDY ESSENTIAL ZINC PASTE 113 GM TP SCH ×2 (08:10→21:00)
[2022-09-03] MEDS: LACOSAMIDE 100 MG/10 ML UDC GT SCH ×2 (08:10→20:10)
[2022-09-03] MEDS: levETIRAcetam 500 MG/5 ML LIQUID UDC GT SCH ×2 (08:10→20:10)
[2022-09-03] MEDS: METOCLOPRAMIDE HCL 10 MG TABLET GT SCH ×3 (08:10→18:54)
[2022-09-03] MEDS: TIZANIDINE HCL 4 MG TABLET GT SCH ×2 (08:10→18:54)
[2022-09-03] MEDS: HYDROGEN PEROXIDE 3% 118 ML BOTTLE TOP SCH ×2 (09:29→19:04)
[2022-09-03 10:40] VITALS: O2SAT 97
[2022-09-03] MEDS: VITAL AF 1.2 1,000 ML LIQUID GT PRN (12:15)
[2022-09-03 19:15] VITALS: O2SAT 98
[2022-09-03 20:50] VITALS: TEMP 98.2
[2022-09-03] MEDS: RIVAROXABAN 10 MG TABLET GT SCH (21:00)
[2022-09-03] MEDS: MELATONIN 5MG TABLET GT SCH (21:00)
[2022-09-03] MEDS: NUTRISOURCE FIBER 4 GM PACKET GT SCH (21:00)
[2022-09-04] MEDS: FAMOTIDINE 20 MG TABLET GT SCH ×2 (05:30→18:51)
[2022-09-04] MEDS: BISACODYL 10 MG SUPP.RECT RC PRN (08:00)
[2022-09-04] MEDS: ACIDOPHILUS/BULGARICUS CHEW TAB GT SCH ×2 (08:48→21:00)
[2022-09-04] MEDS: levETIRAcetam 500 MG/5 ML LIQUID UDC GT SCH ×2 (08:48→20:17)
[2022-09-04] MEDS: LACOSAMIDE 100 MG/10 ML UDC GT SCH ×2 (08:48→20:17)
[2022-09-04] MEDS: REMEDY ESSENTIAL ZINC PASTE 113 GM TP SCH ×2 (08:48→21:00)
[2022-09-04] MEDS: METOCLOPRAMIDE HCL 10 MG TABLET GT SCH ×3 (08:48→18:52)
[2022-09-04] MEDS: TIZANIDINE HCL 4 MG TABLET GT SCH ×2 (08:48→18:52)
[2022-09-04] MEDS: [UNRECOGNIZED DRUG - OTHER] TP SCH (08:48)
[2022-09-04] MEDS: HYDROGEN PEROXIDE 3% 118 ML BOTTLE TOP SCH ×2 (09:00→21:00)
[2022-09-04 10:34] VITALS: O2SAT 98
[2022-09-04 15:05] VITALS: TEMP 98.8
[2022-09-04] MEDS: VITAL AF 1.2 1,000 ML LIQUID GT PRN (16:21)
[2022-09-04] MEDS: LORAZEPAM 2 MG/1 ML VIAL IM PRN (18:01)
[2022-09-04] MEDS: MELATONIN 5MG TABLET GT SCH (21:00)
[2022-09-04] MEDS: NUTRISOURCE FIBER 4 GM PACKET GT SCH (21:00)
[2022-09-04] MEDS: RIVAROXABAN 10 MG TABLET GT SCH (21:00)
[2022-09-04 22:30] VITALS: O2SAT 99
[2022-09-05] MEDS: FAMOTIDINE 20 MG TABLET GT SCH ×2 (05:47→18:41)
[2022-09-05 07:23] VITALS: TEMP 98.2
[2022-09-05] MEDS: levETIRAcetam 500 MG/5 ML LIQUID UDC GT SCH ×2 (08:31→20:19)
[2022-09-05] MEDS: LACOSAMIDE 100 MG/10 ML UDC GT SCH ×2 (08:32→20:19)
[2022-09-05] MEDS: METOCLOPRAMIDE HCL 10 MG TABLET GT SCH ×3 (08:32→18:41)
[2022-09-05] MEDS: ACIDOPHILUS/BULGARICUS CHEW TAB GT SCH ×2 (08:32→21:00)
[2022-09-05] MEDS: TIZANIDINE HCL 4 MG TABLET GT SCH ×2 (08:32→18:41)
[2022-09-05] MEDS: REMEDY ESSENTIAL ZINC PASTE 113 GM TP SCH ×2 (08:32→21:00)
[2022-09-05] MEDS: HYDROGEN PEROXIDE 3% 118 ML BOTTLE TOP SCH ×2 (08:48→19:26)
[2022-09-05 10:50] VITALS: O2SAT 98
[2022-09-05 19:40] VITALS: O2SAT 99
[2022-09-05 20:23] VITALS: TEMP 98.2
[2022-09-05] MEDS: RIVAROXABAN 10 MG TABLET GT SCH (21:00)
[2022-09-05] MEDS: NUTRISOURCE FIBER 4 GM PACKET GT SCH (21:00)
[2022-09-05] MEDS: MELATONIN 5MG TABLET GT SCH (21:00)
[2022-09-06] MEDS: FAMOTIDINE 20 MG TABLET GT SCH ×2 (05:59→18:48)
[2022-09-06 07:40] VITALS: TEMP 98.5
[2022-09-06] MEDS: levETIRAcetam 500 MG/5 ML LIQUID UDC GT SCH ×2 (08:40→20:09)
[2022-09-06] MEDS: REMEDY ESSENTIAL ZINC PASTE 113 GM TP SCH ×2 (08:41→21:21)
[2022-09-06] MEDS: TIZANIDINE HCL 4 MG TABLET GT SCH ×2 (08:41→18:48)
[2022-09-06] MEDS: ACIDOPHILUS/BULGARICUS CHEW TAB GT SCH ×2 (08:41→21:18)
[2022-09-06] MEDS: METOCLOPRAMIDE HCL 10 MG TABLET GT SCH ×3 (08:41→18:48)
[2022-09-06] MEDS: LACOSAMIDE 100 MG/10 ML UDC GT SCH ×2 (08:42→20:09)
[2022-09-06] MEDS: HYDROGEN PEROXIDE 3% 118 ML BOTTLE TOP SCH ×2 (09:00→19:18)
[2022-09-06] MEDS: [UNRECOGNIZED DRUG - OTHER] TP SCH (09:00)
[2022-09-06 09:30] VITALS: O2SAT 98
[2022-09-06 17:53] VITALS: O2SAT 98
[2022-09-06 20:00] VITALS: TEMP 98.6
[2022-09-06 21:11] VITALS: O2SAT 99
[2022-09-06] MEDS: NUTRISOURCE FIBER 4 GM PACKET GT SCH (21:19)
[2022-09-06] MEDS: MELATONIN 5MG TABLET GT SCH (21:19)
[2022-09-06] MEDS: RIVAROXABAN 10 MG TABLET GT SCH (21:22)
[2022-09-07] MEDS: VITAL AF 1.2 1,000 ML LIQUID GT PRN (05:00)
[2022-09-07] MEDS: FAMOTIDINE 20 MG TABLET GT SCH ×2 (05:40→18:37)
[2022-09-07 07:19] VITALS: TEMP 98.6
[2022-09-07] MEDS: LACOSAMIDE 100 MG/10 ML UDC GT SCH ×2 (08:00→20:10)
[2022-09-07] MEDS: levETIRAcetam 500 MG/5 ML LIQUID UDC GT SCH ×2 (08:00→20:10)
[2022-09-07] MEDS: HYDROGEN PEROXIDE 3% 118 ML BOTTLE TOP SCH ×2 (09:00→19:23)
[2022-09-07] MEDS: TIZANIDINE HCL 4 MG TABLET GT SCH ×2 (09:10→18:37)
[2022-09-07] MEDS: ACIDOPHILUS/BULGARICUS CHEW TAB GT SCH ×2 (09:10→21:00)
[2022-09-07] MEDS: REMEDY ESSENTIAL ZINC PASTE 113 GM TP SCH ×2 (09:10→21:00)
[2022-09-07] MEDS: METOCLOPRAMIDE HCL 10 MG TABLET GT SCH ×3 (09:10→18:37)
[2022-09-07 09:30] VITALS: O2SAT 98
[2022-09-07] MEDS: BISACODYL 10 MG SUPP.RECT RC PRN (10:00)
[2022-09-07] MEDS: ONDANSETRON HCL 4 MG TABLET GT PRN ×3 (10:00→22:02)
[2022-09-07 15:38] VITALS: O2SAT 97
[2022-09-07 20:00] VITALS: TEMP 98.4
[2022-09-07] MEDS: NUTRISOURCE FIBER 4 GM PACKET GT SCH (21:00)
[2022-09-07] MEDS: RIVAROXABAN 10 MG TABLET GT SCH (21:00)
[2022-09-07] MEDS: MELATONIN 5MG TABLET GT SCH (21:00)
[2022-09-07 22:01] VITALS: O2SAT 99
[2022-09-08] MEDS: VITAL AF 1.2 1,000 ML LIQUID GT PRN (02:29)
[2022-09-08] MEDS: FAMOTIDINE 20 MG TABLET GT SCH ×2 (05:41→18:42)
[2022-09-08] MEDS: ACETAMINOPHEN 650 MG/20 ML UDC- SA PATIENTS-FEVER ONLY GT PRN (06:34)
[2022-09-08 07:21] VITALS: TEMP 99.3
[2022-09-08] MEDS: BISACODYL 10 MG SUPP.RECT RC PRN (07:30)
[2022-09-08] MEDS: ONDANSETRON HCL 4 MG TABLET GT PRN (07:44)
[2022-09-08 07:52] VITALS: O2SAT 98
[2022-09-08] MEDS: LACOSAMIDE 100 MG/10 ML UDC GT SCH ×2 (08:56→20:20)
[2022-09-08] MEDS: levETIRAcetam 500 MG/5 ML LIQUID UDC GT SCH ×2 (08:56→20:20)
[2022-09-08] MEDS: [UNRECOGNIZED DRUG - OTHER] TP SCH (09:00)
[2022-09-08] MEDS: METOCLOPRAMIDE HCL 10 MG TABLET GT SCH ×3 (09:00→18:42)
[2022-09-08] MEDS: REMEDY ESSENTIAL ZINC PASTE 113 GM TP SCH ×2 (09:00→21:00)
[2022-09-08] MEDS: TIZANIDINE HCL 4 MG TABLET GT SCH ×2 (09:00→18:42)
[2022-09-08] MEDS: ACIDOPHILUS/BULGARICUS CHEW TAB GT SCH ×2 (09:00→21:00)
[2022-09-08] MEDS: HYDROGEN PEROXIDE 3% 118 ML BOTTLE TOP SCH ×2 (09:27→20:02)
[2022-09-08] MEDS ORDERED: MAGNESIUM HYDROXIDE 30 ML LIQUID UDC GT PRN (18:15)
[2022-09-08] MEDS: MAGNESIUM HYDROXIDE 30 ML LIQUID UDC GT PRN (18:43)
[2022-09-08 19:33] LABS: *BILIRUBIN,URIN NEGATIVE (NEGATIVE); *BLOOD, URINE NEGATIVE (NEGATIVE); *CLARITY,URINE CLEAR (CLEAR); *COLOR,URINE YELLOW (YELLOW); *KETONES,URINE NEGATIVE (NEGATIVE); *PROTEIN,URINE 1+ (NEGATIVE); *UROBILINOGEN,URINE 0.2 E.U./dl (NORMAL); LEUKOCYTE ESTERASE ,URINE NEGATIVE (NEGATIVE); NITRITE, URINE NEGATIVE (NEGATIVE); PH,URINE 5.5 (5.0-8.0); UGLUCOSE NEGATIVE (NEGATIVE)
[2022-09-08 19:55] VITALS: O2SAT 99
[2022-09-08] MEDS ORDERED: PIPERACILLIN SODIUM/TAZO 3.375 GM VIAL ONE (20:29)
[2022-09-08] MEDS: MELATONIN 5MG TABLET GT SCH (21:00)
[2022-09-08] MEDS ORDERED: DOSING BY PHARMACY-MD TO SPECIFY MED/ROUTE XX PRN (21:00)
[2022-09-08] MEDS: PIPERACILLIN SODIUM/TAZOBACTAM 3.375 G in IV DEXTROSE 5% 50 ML IV SCH (21:00)
[2022-09-08] MEDS: NUTRISOURCE FIBER 4 GM PACKET GT SCH (21:00)
[2022-09-08] MEDS: RIVAROXABAN 10 MG TABLET GT SCH (21:00)
[2022-09-08 22:33] VITALS: TEMP 98.3; TEMP 98.6
[2022-09-09] MEDS: PIPERACILLIN SODIUM/TAZOBACTAM 3.375 G in IV DEXTROSE 5% 50 ML IV SCH ×4 (03:00→21:00)
[2022-09-09] MEDS: FAMOTIDINE 20 MG TABLET GT SCH ×2 (06:14→18:40)
[2022-09-09 06:50] LABS: BASOPHILS % (AUTO) 0.4 % (0.0-2.0); EOSINOPHILS # (AUTO) 0.2 K/uL (0.0-0.7); EOSINOPHILS % (AUTO) 2.3 % (0.0-7.0); HEMATOCRIT 37.9 % (31.2-41.9); HEMOGLOBIN 12.5 g/dL (10.9-14.3); LYMPHOCYTES # (AUTO) 1.1 K/uL (0.8-4.8); LYMPHOCYTES % (AUTO) 16.5 % (20.5-51.5); MEAN CORPUSCULAR HEMOGLOBIN 29.5 uug (24.7-32.8); MEAN CORPUSCULAR HGB CONC 33 g/dL (32.3-35.6); MEAN CORPUSCULAR VOLUME 89.7 fL (75.5-95.3); MONOCYTES % (AUTO) 15.2 % (0.0-11.0); NEUTROPHILS # (AUTO) 4.4 K/uL (1.8-8.9); NEUTROPHILS % (AUTO) 65.6 % (38.5-71.5); PLATELET COUNT (AUTO) 268 K/uL (179-408); RED BLOOD CELL COUNT(AUTO) 4.22 MIL/uL (3.63-4.92); RED CELL DISTRIBUTION WIDTH 12.9 % (12.3-17.7); WHITE BLOOD COUNT (AUTO) 6.7 K/uL (3.8-11.8)
[2022-09-09 07:17] VITALS: TEMP 98.2
[2022-09-09 07:21] LABS: DIFFERENTIAL COMMENT 1
[2022-09-09 07:24] LABS: ALBUMIN 3.4 g/dL (3.4-5.0); BILIRUBIN,TOTAL 0.4 mg/dL (0.2-1.0); CALCIUM 8.4 mg/dL (8.5-10.1); CREATININE 0.8 mg/dL (0.6-1.3); POTASSIUM 3.2 mmol/L (3.5-5.1); TOTAL PROTEIN, SERUM 7.7 g/dL (6.4-8.2)
[2022-09-09 08:04] VITALS: TEMP 98.5; O2SAT 98
[2022-09-09] MEDS: LACOSAMIDE 100 MG/10 ML UDC GT SCH ×2 (08:44→20:19)
[2022-09-09] MEDS: levETIRAcetam 500 MG/5 ML LIQUID UDC GT SCH ×2 (08:44→20:19)
[2022-09-09] MEDS: ACIDOPHILUS/BULGARICUS CHEW TAB GT SCH ×2 (08:44→21:00)
[2022-09-09] MEDS: METOCLOPRAMIDE HCL 10 MG TABLET GT SCH ×3 (08:44→18:40)
[2022-09-09] MEDS: REMEDY ESSENTIAL ZINC PASTE 113 GM TP SCH ×2 (08:45→21:00)
[2022-09-09] MEDS: MAGNESIUM HYDROXIDE 30 ML LIQUID UDC GT PRN (08:45)
[2022-09-09] MEDS: TIZANIDINE HCL 4 MG TABLET GT SCH ×2 (08:45→18:40)
[2022-09-09] MEDS: HYDROGEN PEROXIDE 3% 118 ML BOTTLE TOP SCH ×2 (09:00→21:02)
[2022-09-09] MEDS: BISACODYL 10 MG SUPP.RECT RC PRN (10:00)
[2022-09-09] MEDS: VITAL AF 1.2 1,000 ML LIQUID GT PRN (12:49)
[2022-09-09 14:52] LABS: BAND % (MANUAL) 7 % (0-10); EOSINOPHILS % (MANUAL) 0 % (0-8); MONOCYTES % (MANUAL) 13 % (2-10); NEUTROPHILS % (MANUAL) 55 % (42-75)
[2022-09-09 14:53] LABS: BASOPHILS % (MANUAL) 0 % (0-2); BLASTS, MANUAL % 0 % (0-0); LYMPHOCYTES % (MANUAL) 22 % (20-40); METAMYELOCYTES % 0 % (0-1); MYELOCYTES % 0 % (0-0); PLASMA CELLS 0; PROMYELOCYTES % 0 %; REACTIVE LYMPHOCYTES 3 % (0-0); SMUDGE CELLS 0
[2022-09-09 14:54] LABS: ANISOCYTOSIS FEW; GIANT PLATELETS 0; HYPOCHROMASIA 0; PLATELET ESTIMATE ADEQUATE
[2022-09-09 14:55] LABS: CABOT RINGS N; HEINZ BODIES N; HELMET CELLS N; HOWELL-JOLLY BODIES N; HYPERSEGMENTED NEUTROPHILS N; OVALOCYTES N; PAPPENHEIMER BODIES N; ROULEAU N; STOMATOCYTES N; TARGET CELLS N; TEAR DROP CELLS N; TOXIC GRANULATION N
[2022-09-09 20:00] VITALS: TEMP 98.2
[2022-09-09] MEDS: NUTRISOURCE FIBER 4 GM PACKET GT SCH (21:00)
[2022-09-09] MEDS: RIVAROXABAN 10 MG TABLET GT SCH (21:00)
[2022-09-09] MEDS: MELATONIN 5MG TABLET GT SCH (21:00)
[2022-09-09 21:10] VITALS: O2SAT 99
[2022-09-10] MEDS: PIPERACILLIN SODIUM/TAZOBACTAM 3.375 G in IV DEXTROSE 5% 50 ML IV SCH ×4 (03:00→21:00)
[2022-09-10] MEDS: FAMOTIDINE 20 MG TABLET GT SCH ×2 (05:42→18:16)
[2022-09-10 07:35] VITALS: TEMP 98.8
[2022-09-10] MEDS: LACOSAMIDE 100 MG/10 ML UDC GT SCH ×2 (08:00→20:05)
[2022-09-10] MEDS: levETIRAcetam 500 MG/5 ML LIQUID UDC GT SCH ×2 (08:00→20:05)
[2022-09-10 09:00] VITALS: O2SAT 98
[2022-09-10] MEDS: ACIDOPHILUS/BULGARICUS CHEW TAB GT SCH ×2 (09:47→21:00)
[2022-09-10] MEDS: TIZANIDINE HCL 4 MG TABLET GT SCH ×2 (09:48→18:16)
[2022-09-10] MEDS: METOCLOPRAMIDE HCL 10 MG TABLET GT SCH ×3 (09:48→18:16)
[2022-09-10] MEDS: REMEDY ESSENTIAL ZINC PASTE 113 GM TP SCH ×2 (09:49→21:00)
[2022-09-10] MEDS: [UNRECOGNIZED DRUG - OTHER] TP SCH (09:49)
[2022-09-10] MEDS: HYDROGEN PEROXIDE 3% 118 ML BOTTLE TOP SCH ×2 (09:49→21:00)
[2022-09-10 13:46] VITALS: O2SAT 98
[2022-09-10] MEDS ORDERED: POTASSIUM CHLORIDE 20 MEQ POWDER PACKET GT ONE (14:30)
[2022-09-10 19:40] VITALS: O2SAT 99
[2022-09-10] MEDS: RIVAROXABAN 10 MG TABLET GT SCH (21:00)
[2022-09-10] MEDS: NUTRISOURCE FIBER 4 GM PACKET GT SCH (21:00)
[2022-09-10] MEDS: MELATONIN 5MG TABLET GT SCH (21:00)
[2022-09-11] MEDS: PIPERACILLIN SODIUM/TAZOBACTAM 3.375 G in IV DEXTROSE 5% 50 ML IV SCH ×4 (03:00→19:20)
[2022-09-11 04:00] VITALS: TEMP 98.5
[2022-09-11] MEDS: FAMOTIDINE 20 MG TABLET GT SCH ×2 (05:33→18:52)
[2022-09-11 07:05] VITALS: TEMP 98.5
[2022-09-11] MEDS: levETIRAcetam 500 MG/5 ML LIQUID UDC GT SCH ×2 (08:00→20:00)
[2022-09-11] MEDS: LACOSAMIDE 100 MG/10 ML UDC GT SCH ×2 (08:00→20:00)
[2022-09-11] MEDS: HYDROGEN PEROXIDE 3% 118 ML BOTTLE TOP SCH ×2 (08:04→21:12)
[2022-09-11] MEDS: ACIDOPHILUS/BULGARICUS CHEW TAB GT SCH ×2 (09:33→21:37)
[2022-09-11] MEDS: METOCLOPRAMIDE HCL 10 MG TABLET GT SCH ×3 (09:33→18:52)
[2022-09-11] MEDS: TIZANIDINE HCL 4 MG TABLET GT SCH ×2 (09:34→18:52)
[2022-09-11] MEDS: REMEDY ESSENTIAL ZINC PASTE 113 GM TP SCH ×2 (09:34→21:39)
[2022-09-11 14:08] VITALS: O2SAT 98
[2022-09-11 20:15] VITALS: O2SAT 99
[2022-09-11] MEDS: MELATONIN 5MG TABLET GT SCH (21:37)
[2022-09-11] MEDS: NUTRISOURCE FIBER 4 GM PACKET GT SCH (21:38)
[2022-09-11] MEDS: RIVAROXABAN 10 MG TABLET GT SCH (21:40)
[2022-09-12] MEDS: NUTRISOURCE FIBER 4 GM PACKET GT SCH (03:00)
[2022-09-12] MEDS: PIPERACILLIN SODIUM/TAZOBACTAM 3.375 G in IV DEXTROSE 5% 50 ML IV SCH ×2 (03:38→11:20)
[2022-09-12 04:00] VITALS: TEMP 98.2
[2022-09-12] MEDS: FAMOTIDINE 20 MG TABLET GT SCH ×2 (06:03→18:46)
[2022-09-12 07:26] VITALS: TEMP 98.5
[2022-09-12 07:56] VITALS: O2SAT 98
[2022-09-12] MEDS: levETIRAcetam 500 MG/5 ML LIQUID UDC GT SCH ×2 (08:39→20:13)
[2022-09-12] MEDS: ACIDOPHILUS/BULGARICUS CHEW TAB GT SCH ×2 (08:40→21:00)
[2022-09-12] MEDS: REMEDY ESSENTIAL ZINC PASTE 113 GM TP SCH ×2 (08:40→21:00)
[2022-09-12] MEDS: LACOSAMIDE 100 MG/10 ML UDC GT SCH ×2 (08:40→20:13)
[2022-09-12] MEDS: [UNRECOGNIZED DRUG - OTHER] TP SCH (08:40)
[2022-09-12] MEDS: TIZANIDINE HCL 4 MG TABLET GT SCH ×2 (08:40→18:46)
[2022-09-12] MEDS: METOCLOPRAMIDE HCL 10 MG TABLET GT SCH ×3 (08:40→18:46)
[2022-09-12] MEDS: HYDROGEN PEROXIDE 3% 118 ML BOTTLE TOP SCH ×2 (09:18→21:32)
[2022-09-12] MEDS: PIPERACILLIN SODIUM/TAZOBACTAM 3.375 G in IV DEXTROSE 5% 100 ML IV SCH (19:48)
[2022-09-12 20:00] VITALS: TEMP 98.4
[2022-09-12 20:55] VITALS: O2SAT 99
[2022-09-12] MEDS: RIVAROXABAN 10 MG TABLET GT SCH (21:00)
[2022-09-12] MEDS: MELATONIN 5MG TABLET GT SCH (21:00)
[2022-09-13] MEDS: PIPERACILLIN SODIUM/TAZOBACTAM 3.375 G in IV DEXTROSE 5% 100 ML IV SCH ×3 (02:48→20:15)
[2022-09-13] MEDS: FAMOTIDINE 20 MG TABLET GT SCH ×2 (05:42→18:40)
[2022-09-13 08:04] VITALS: TEMP 98.6
[2022-09-13] MEDS: HYDROGEN PEROXIDE 3% 118 ML BOTTLE TOP SCH ×2 (08:07→21:46)
[2022-09-13] MEDS: LACOSAMIDE 100 MG/10 ML UDC GT SCH ×2 (08:24→20:38)
[2022-09-13] MEDS: levETIRAcetam 500 MG/5 ML LIQUID UDC GT SCH ×2 (08:24→20:38)
[2022-09-13] MEDS: ACIDOPHILUS/BULGARICUS CHEW TAB GT SCH ×2 (08:26→21:00)
[2022-09-13] MEDS: TIZANIDINE HCL 4 MG TABLET GT SCH ×2 (08:26→18:40)
[2022-09-13] MEDS: REMEDY ESSENTIAL ZINC PASTE 113 GM TP SCH ×2 (08:26→21:00)
[2022-09-13] MEDS: METOCLOPRAMIDE HCL 10 MG TABLET GT SCH ×3 (08:26→18:40)
[2022-09-13 13:14] VITALS: O2SAT 98
[2022-09-13 20:00] VITALS: TEMP 97.8
[2022-09-13] MEDS: RIVAROXABAN 10 MG TABLET GT SCH (21:00)
[2022-09-13] MEDS: MELATONIN 5MG TABLET GT SCH (21:00)
[2022-09-13] MEDS: NUTRISOURCE FIBER 4 GM PACKET GT SCH (21:00)
[2022-09-13 21:47] VITALS: O2SAT 99
[2022-09-14] MEDS: PIPERACILLIN SODIUM/TAZOBACTAM 3.375 G in IV DEXTROSE 5% 100 ML IV SCH ×3 (04:04→19:25)
[2022-09-14] MEDS: FAMOTIDINE 20 MG TABLET GT SCH ×2 (06:02→18:54)
[2022-09-14] MEDS: BISACODYL 10 MG SUPP.RECT RC PRN (06:31)
[2022-09-14] MEDS: levETIRAcetam 500 MG/5 ML LIQUID UDC GT SCH ×2 (08:00→20:22)
[2022-09-14] MEDS: LACOSAMIDE 100 MG/10 ML UDC GT SCH ×2 (08:10→20:22)
[2022-09-14 08:31] VITALS: TEMP 98.6
[2022-09-14] MEDS: HYDROGEN PEROXIDE 3% 118 ML BOTTLE TOP SCH ×2 (09:00→19:17)
[2022-09-14] MEDS: REMEDY ESSENTIAL ZINC PASTE 113 GM TP SCH ×2 (09:24→21:00)
[2022-09-14] MEDS: TIZANIDINE HCL 4 MG TABLET GT SCH ×2 (09:24→18:55)
[2022-09-14] MEDS: [UNRECOGNIZED DRUG - OTHER] TP SCH (09:24)
[2022-09-14] MEDS: ACIDOPHILUS/BULGARICUS CHEW TAB GT SCH ×2 (09:24→21:00)
[2022-09-14] MEDS: METOCLOPRAMIDE HCL 10 MG TABLET GT SCH ×3 (09:24→18:54)
[2022-09-14 10:45] VITALS: O2SAT 98
[2022-09-14 19:55] VITALS: O2SAT 99
[2022-09-14] MEDS: NUTRISOURCE FIBER 4 GM PACKET GT SCH (21:00)
[2022-09-14] MEDS: MELATONIN 5MG TABLET GT SCH (21:00)
[2022-09-14] MEDS: RIVAROXABAN 10 MG TABLET GT SCH (21:00)
[2022-09-15] MEDS: VITAL AF 1.2 1,000 ML LIQUID GT PRN (02:04)
[2022-09-15 03:00] VITALS: TEMP 98.5
[2022-09-15 06:28] VITALS: O2SAT 99
[2022-09-15] MEDS: FAMOTIDINE 20 MG TABLET GT SCH ×2 (06:31→18:44)
[2022-09-15 07:09] VITALS: TEMP 98.9
[2022-09-15] MEDS: levETIRAcetam 500 MG/5 ML LIQUID UDC GT SCH ×2 (08:56→19:58)
[2022-09-15] MEDS: LACOSAMIDE 100 MG/10 ML UDC GT SCH ×2 (08:57→19:58)
[2022-09-15] MEDS: ACIDOPHILUS/BULGARICUS CHEW TAB GT SCH ×2 (08:58→20:00)
[2022-09-15] MEDS: METOCLOPRAMIDE HCL 10 MG TABLET GT SCH ×3 (09:00→18:45)
[2022-09-15] MEDS: TIZANIDINE HCL 4 MG TABLET GT SCH ×2 (09:02→18:45)
[2022-09-15] MEDS: REMEDY ESSENTIAL ZINC PASTE 113 GM TP SCH ×2 (09:02→21:00)
[2022-09-15] MEDS: HYDROGEN PEROXIDE 3% 118 ML BOTTLE TOP SCH ×2 (09:03→21:00)
[2022-09-15 10:50] VITALS: O2SAT 98
[2022-09-15 19:00] VITALS: O2SAT 99
[2022-09-15] MEDS: NUTRISOURCE FIBER 4 GM PACKET GT SCH (21:00)
[2022-09-15] MEDS: MELATONIN 5MG TABLET GT SCH (21:00)
[2022-09-15] MEDS: RIVAROXABAN 10 MG TABLET GT SCH (21:28)
[2022-09-16 01:00] VITALS: TEMP 98.5
[2022-09-16] MEDS: FAMOTIDINE 20 MG TABLET GT SCH ×2 (05:52→18:54)
[2022-09-16 07:56] VITALS: TEMP 97.1
[2022-09-16] MEDS: HYDROGEN PEROXIDE 3% 118 ML BOTTLE TOP SCH ×2 (08:13→21:11)
[2022-09-16] MEDS: METOCLOPRAMIDE HCL 10 MG TABLET GT SCH ×3 (08:28→18:54)
[2022-09-16] MEDS: levETIRAcetam 500 MG/5 ML LIQUID UDC GT SCH ×2 (08:28→20:00)
[2022-09-16] MEDS: ACIDOPHILUS/BULGARICUS CHEW TAB GT SCH ×2 (08:28→20:04)
[2022-09-16] MEDS: LACOSAMIDE 100 MG/10 ML UDC GT SCH ×2 (08:28→20:00)
[2022-09-16] MEDS: [UNRECOGNIZED DRUG - OTHER] TP SCH (08:31)
[2022-09-16] MEDS: TIZANIDINE HCL 4 MG TABLET GT SCH ×2 (08:31→18:54)
[2022-09-16] MEDS: REMEDY ESSENTIAL ZINC PASTE 113 GM TP SCH ×2 (08:31→21:00)
[2022-09-16 13:00] VITALS: O2SAT 98
[2022-09-16 20:30] VITALS: O2SAT 99
[2022-09-16] MEDS: NUTRISOURCE FIBER 4 GM PACKET GT SCH (21:00)
[2022-09-16] MEDS: RIVAROXABAN 10 MG TABLET GT SCH (21:00)
[2022-09-16] MEDS: MELATONIN 5MG TABLET GT SCH (21:00)
[2022-09-17] MEDS: FAMOTIDINE 20 MG TABLET GT SCH ×2 (05:43→18:59)
[2022-09-17 07:38] VITALS: TEMP 98
[2022-09-17] MEDS: LACOSAMIDE 100 MG/10 ML UDC GT SCH ×2 (08:00→20:15)
[2022-09-17] MEDS: levETIRAcetam 500 MG/5 ML LIQUID UDC GT SCH ×2 (08:00→20:15)
[2022-09-17] MEDS: HYDROGEN PEROXIDE 3% 118 ML BOTTLE TOP SCH ×2 (08:20→20:18)
[2022-09-17] MEDS: TIZANIDINE HCL 4 MG TABLET GT SCH ×2 (09:00→18:59)
[2022-09-17] MEDS: REMEDY ESSENTIAL ZINC PASTE 113 GM TP SCH ×2 (09:00→20:16)
[2022-09-17] MEDS: ACIDOPHILUS/BULGARICUS CHEW TAB GT SCH ×2 (09:00→20:15)
[2022-09-17] MEDS: METOCLOPRAMIDE HCL 10 MG TABLET GT SCH ×3 (09:00→19:04)
[2022-09-17 16:23] VITALS: O2SAT 98
[2022-09-17 20:00] VITALS: BP 90/52; TEMP 98.7; O2SAT 96
[2022-09-17] MEDS: NUTRISOURCE FIBER 4 GM PACKET GT SCH (20:15)
[2022-09-17] MEDS: RIVAROXABAN 10 MG TABLET GT SCH (20:16)
[2022-09-17] MEDS: MELATONIN 5MG TABLET GT SCH (20:17)
[2022-09-18] MEDS: VITAL AF 1.2 1,000 ML LIQUID GT PRN (00:30)
[2022-09-18] MEDS: FAMOTIDINE 20 MG TABLET GT SCH ×2 (06:30→18:38)
[2022-09-18 07:53] VITALS: TEMP 98.4
[2022-09-18] MEDS: HYDROGEN PEROXIDE 3% 118 ML BOTTLE TOP SCH ×2 (08:49→21:20)
[2022-09-18] MEDS: levETIRAcetam 500 MG/5 ML LIQUID UDC GT SCH ×2 (08:50→20:15)
[2022-09-18] MEDS: LACOSAMIDE 100 MG/10 ML UDC GT SCH ×2 (08:50→20:15)
[2022-09-18] MEDS: METOCLOPRAMIDE HCL 10 MG TABLET GT SCH ×3 (08:51→18:38)
[2022-09-18] MEDS: TIZANIDINE HCL 4 MG TABLET GT SCH ×2 (08:51→18:38)
[2022-09-18] MEDS: ACIDOPHILUS/BULGARICUS CHEW TAB GT SCH ×2 (08:51→21:59)
[2022-09-18] MEDS: [UNRECOGNIZED DRUG - OTHER] TP SCH (08:51)
[2022-09-18] MEDS: REMEDY ESSENTIAL ZINC PASTE 113 GM TP SCH ×2 (08:51→21:00)
[2022-09-18 13:22] VITALS: O2SAT 98
[2022-09-18 20:12] VITALS: TEMP 98.5
[2022-09-18] MEDS: RIVAROXABAN 10 MG TABLET GT SCH (21:00)
[2022-09-18] MEDS: NUTRISOURCE FIBER 4 GM PACKET GT SCH (21:00)
[2022-09-18 21:01] VITALS: O2SAT 99
[2022-09-18] MEDS: MELATONIN 5MG TABLET GT SCH (21:59)
[2022-09-19] MEDS: FAMOTIDINE 20 MG TABLET GT SCH ×2 (05:53→18:52)
[2022-09-19] MEDS: VITAL AF 1.2 1,000 ML LIQUID GT PRN (06:07)
[2022-09-19 07:14] VITALS: TEMP 98.6
[2022-09-19] MEDS: levETIRAcetam 500 MG/5 ML LIQUID UDC GT SCH ×2 (08:30→20:08)
[2022-09-19] MEDS: LACOSAMIDE 100 MG/10 ML UDC GT SCH ×2 (08:30→20:08)
[2022-09-19] MEDS: TIZANIDINE HCL 4 MG TABLET GT SCH ×2 (08:31→18:52)
[2022-09-19] MEDS: REMEDY ESSENTIAL ZINC PASTE 113 GM TP SCH ×2 (08:31→21:00)
[2022-09-19] MEDS: METOCLOPRAMIDE HCL 10 MG TABLET GT SCH ×3 (08:31→18:52)
[2022-09-19] MEDS: ACIDOPHILUS/BULGARICUS CHEW TAB GT SCH ×2 (08:31→21:00)
[2022-09-19] MEDS: HYDROGEN PEROXIDE 3% 118 ML BOTTLE TOP SCH ×2 (09:00→18:57)
[2022-09-19 11:16] VITALS: O2SAT 98
[2022-09-19 20:00] VITALS: TEMP 98.4
[2022-09-19 20:32] VITALS: O2SAT 99
[2022-09-19] MEDS: MELATONIN 5MG TABLET GT SCH (21:00)
[2022-09-19] MEDS: RIVAROXABAN 10 MG TABLET GT SCH (21:00)
[2022-09-19] MEDS: NUTRISOURCE FIBER 4 GM PACKET GT SCH (21:00)
[2022-09-20] MEDS: FAMOTIDINE 20 MG TABLET GT SCH ×2 (05:36→18:56)
[2022-09-20 07:13] VITALS: TEMP 98.7
[2022-09-20 07:59] VITALS: O2SAT 98
[2022-09-20] MEDS: METOCLOPRAMIDE HCL 10 MG TABLET GT SCH ×3 (08:37→18:56)
[2022-09-20] MEDS: TIZANIDINE HCL 4 MG TABLET GT SCH ×2 (08:37→18:56)
[2022-09-20] MEDS: levETIRAcetam 500 MG/5 ML LIQUID UDC GT SCH ×2 (08:37→20:32)
[2022-09-20] MEDS: REMEDY ESSENTIAL ZINC PASTE 113 GM TP SCH ×2 (08:37→21:00)
[2022-09-20] MEDS: ACIDOPHILUS/BULGARICUS CHEW TAB GT SCH ×2 (08:37→21:00)
[2022-09-20] MEDS: [UNRECOGNIZED DRUG - OTHER] TP SCH (08:37)
[2022-09-20] MEDS: LACOSAMIDE 100 MG/10 ML UDC GT SCH ×2 (08:37→20:32)
[2022-09-20] MEDS: HYDROGEN PEROXIDE 3% 118 ML BOTTLE TOP SCH ×2 (09:05→19:15)
[2022-09-20] MEDS: NEOMY/BACITRA/POLYMYXIN B OINT UD PACKET TP SCH ×2 (12:09→21:00)
[2022-09-20] MEDS: RIVAROXABAN 10 MG TABLET GT SCH (21:00)
[2022-09-20] MEDS: MELATONIN 5MG TABLET GT SCH (21:00)
[2022-09-20] MEDS: NUTRISOURCE FIBER 4 GM PACKET GT SCH (21:00)
[2022-09-20 22:48] VITALS: O2SAT 99
[2022-09-21] MEDS: BISACODYL 10 MG SUPP.RECT RC PRN (05:30)
[2022-09-21] MEDS: FAMOTIDINE 20 MG TABLET GT SCH (06:30)
[2022-09-21 07:30] VITALS: TEMP 97.7
[2022-09-21] MEDS: levETIRAcetam 500 MG/5 ML LIQUID UDC GT SCH ×2 (08:53→20:04)
[2022-09-21] MEDS: LACOSAMIDE 100 MG/10 ML UDC GT SCH ×2 (08:54→20:04)
[2022-09-21] MEDS: METOCLOPRAMIDE HCL 10 MG TABLET GT SCH ×2 (08:58→12:54)
[2022-09-21] MEDS: ACIDOPHILUS/BULGARICUS CHEW TAB GT SCH ×2 (08:58→21:00)
[2022-09-21] MEDS: REMEDY ESSENTIAL ZINC PASTE 113 GM TP SCH ×2 (09:00→21:00)
[2022-09-21] MEDS: HYDROGEN PEROXIDE 3% 118 ML BOTTLE TOP SCH ×2 (09:00→19:13)
[2022-09-21] MEDS: TIZANIDINE HCL 4 MG TABLET GT SCH (09:00)
[2022-09-21] MEDS: NEOMY/BACITRA/POLYMYXIN B OINT UD PACKET TP SCH ×2 (09:01→21:00)
[2022-09-21 11:01] VITALS: O2SAT 98
[2022-09-21 14:49] VITALS: O2SAT 98
[2022-09-21] MEDS: VITAL AF 1.2 1,000 ML LIQUID GT PRN (16:05)
[2022-09-21 19:55] VITALS: O2SAT 99
[2022-09-21] MEDS: MELATONIN 5MG TABLET GT SCH (21:00)
[2022-09-21] MEDS: NUTRISOURCE FIBER 4 GM PACKET GT SCH (21:00)
[2022-09-21] MEDS: RIVAROXABAN 10 MG TABLET GT SCH (21:00)
[2022-09-22 03:00] VITALS: TEMP 98.2
[2022-09-22] MEDS: FAMOTIDINE 20 MG TABLET GT SCH ×2 (05:42→19:19)
[2022-09-22 07:23] VITALS: TEMP 98.4
[2022-09-22] MEDS: TIZANIDINE HCL 4 MG TABLET GT SCH ×2 (08:58→19:19)
[2022-09-22] MEDS: METOCLOPRAMIDE HCL 10 MG TABLET GT SCH ×3 (08:58→19:19)
[2022-09-22] MEDS: levETIRAcetam 500 MG/5 ML LIQUID UDC GT SCH ×2 (08:59→20:28)
[2022-09-22] MEDS: LACOSAMIDE 100 MG/10 ML UDC GT SCH ×2 (08:59→20:28)
[2022-09-22] MEDS: [UNRECOGNIZED DRUG - OTHER] TP SCH (09:00)
[2022-09-22] MEDS: ACIDOPHILUS/BULGARICUS CHEW TAB GT SCH ×2 (09:00→20:28)
[2022-09-22] MEDS: REMEDY ESSENTIAL ZINC PASTE 113 GM TP SCH ×2 (09:01→20:29)
[2022-09-22] MEDS: NEOMY/BACITRA/POLYMYXIN B OINT UD PACKET TP SCH ×2 (09:01→20:29)
[2022-09-22 09:05] VITALS: O2SAT 98
[2022-09-22] MEDS: HYDROGEN PEROXIDE 3% 118 ML BOTTLE TOP SCH ×2 (09:05→19:19)
[2022-09-22 19:40] VITALS: O2SAT 99
[2022-09-22] MEDS: MELATONIN 5MG TABLET GT SCH (20:28)
[2022-09-22] MEDS: NUTRISOURCE FIBER 4 GM PACKET GT SCH (20:28)
[2022-09-22] MEDS: RIVAROXABAN 10 MG TABLET GT SCH (21:00)
[2022-09-23 03:00] VITALS: TEMP 98.5
[2022-09-23] MEDS: VITAL AF 1.2 1,000 ML LIQUID GT PRN (05:41)
[2022-09-23] MEDS: FAMOTIDINE 20 MG TABLET GT SCH ×2 (05:41→18:47)
[2022-09-23] MEDS: HYDROGEN PEROXIDE 3% 118 ML BOTTLE TOP SCH ×2 (07:52→19:04)
[2022-09-23 07:53] VITALS: O2SAT 98
[2022-09-23 08:00] VITALS: TEMP 97.5
[2022-09-23] MEDS: LACOSAMIDE 100 MG/10 ML UDC GT SCH ×2 (08:00→20:05)
[2022-09-23] MEDS: levETIRAcetam 500 MG/5 ML LIQUID UDC GT SCH ×2 (08:00→19:58)
[2022-09-23] MEDS: ACIDOPHILUS/BULGARICUS CHEW TAB GT SCH ×2 (09:29→21:00)
[2022-09-23] MEDS: METOCLOPRAMIDE HCL 10 MG TABLET GT SCH ×3 (09:29→18:48)
[2022-09-23] MEDS: TIZANIDINE HCL 4 MG TABLET GT SCH ×2 (09:30→18:48)
[2022-09-23] MEDS: NEOMY/BACITRA/POLYMYXIN B OINT UD PACKET TP SCH ×2 (09:30→21:00)
[2022-09-23] MEDS: REMEDY ESSENTIAL ZINC PASTE 113 GM TP SCH ×2 (09:30→21:00)
[2022-09-23 19:40] VITALS: O2SAT 99
[2022-09-23 20:00] VITALS: TEMP 97.2
[2022-09-23] MEDS: MELATONIN 5MG TABLET GT SCH (21:00)
[2022-09-23] MEDS: NUTRISOURCE FIBER 4 GM PACKET GT SCH (21:00)
[2022-09-23] MEDS: RIVAROXABAN 10 MG TABLET GT SCH (21:00)
[2022-09-24] MEDS: FAMOTIDINE 20 MG TABLET GT SCH ×2 (06:43→18:57)
[2022-09-24] MEDS: HYDROGEN PEROXIDE 3% 118 ML BOTTLE TOP SCH ×2 (07:32→21:07)
[2022-09-24 08:00] VITALS: TEMP 98.7
[2022-09-24] MEDS: levETIRAcetam 500 MG/5 ML LIQUID UDC GT SCH ×2 (08:00→19:58)
[2022-09-24] MEDS: LACOSAMIDE 100 MG/10 ML UDC GT SCH ×2 (08:00→19:58)
[2022-09-24] MEDS: REMEDY ESSENTIAL ZINC PASTE 113 GM TP SCH ×2 (09:04→21:00)
[2022-09-24] MEDS: [UNRECOGNIZED DRUG - OTHER] TP SCH (09:04)
[2022-09-24] MEDS: ACIDOPHILUS/BULGARICUS CHEW TAB GT SCH ×2 (09:04→21:00)
[2022-09-24] MEDS: TIZANIDINE HCL 4 MG TABLET GT SCH ×2 (09:04→18:57)
[2022-09-24] MEDS: METOCLOPRAMIDE HCL 10 MG TABLET GT SCH ×3 (09:04→18:57)
[2022-09-24] MEDS: NEOMY/BACITRA/POLYMYXIN B OINT UD PACKET TP SCH ×2 (09:04→21:00)
[2022-09-24 10:00] VITALS: O2SAT 98
[2022-09-24 20:58] VITALS: TEMP 98.6
[2022-09-24 21:00] VITALS: O2SAT 99
[2022-09-24] MEDS: RIVAROXABAN 10 MG TABLET GT SCH (21:00)
[2022-09-24] MEDS: NUTRISOURCE FIBER 4 GM PACKET GT SCH (21:00)
[2022-09-24] MEDS: MELATONIN 5MG TABLET GT SCH (21:00)
[2022-09-25] MEDS: FAMOTIDINE 20 MG TABLET GT SCH ×2 (05:52→18:52)
[2022-09-25 07:14] LABS: BASOPHILS % (AUTO) 0.5 % (0.0-2.0); EOSINOPHILS # (AUTO) 0.4 K/uL (0.0-0.7); EOSINOPHILS % (AUTO) 6.6 % (0.0-7.0); HEMATOCRIT 36.4 % (31.2-41.9); HEMOGLOBIN 12.1 g/dL (10.9-14.3); LYMPHOCYTES # (AUTO) 1.8 K/uL (0.8-4.8); LYMPHOCYTES % (AUTO) 28.3 % (20.5-51.5); MEAN CORPUSCULAR HEMOGLOBIN 30.2 uug (24.7-32.8); MEAN CORPUSCULAR HGB CONC 33 g/dL (32.3-35.6); MEAN CORPUSCULAR VOLUME 90.6 fL (75.5-95.3); MONOCYTES # (AUTO) 0.4 K/uL (0.1-1.30); MONOCYTES % (AUTO) 6.6 % (0.0-11.0); NEUTROPHILS # (AUTO) 3.8 K/uL (1.8-8.9); PLATELET COUNT (AUTO) 259 K/uL (179-408); RED BLOOD CELL COUNT(AUTO) 4.02 MIL/uL (3.63-4.92); RED CELL DISTRIBUTION WIDTH 12.9 % (12.3-17.7); WHITE BLOOD COUNT (AUTO) 6.5 K/uL (3.8-11.8)
[2022-09-25 07:21] LABS: DIFFERENTIAL COMMENT 1
[2022-09-25 07:29] LABS: CALCIUM 8.9 mg/dL (8.5-10.1); CREATININE 0.6 mg/dL (0.6-1.3); PHOSPHOROUS 4.1 mg/dL (2.5-4.9); POTASSIUM 4.4 mmol/L (3.5-5.1)
[2022-09-25] MEDS: levETIRAcetam 500 MG/5 ML LIQUID UDC GT SCH ×2 (08:00→20:04)
[2022-09-25] MEDS: LACOSAMIDE 100 MG/10 ML UDC GT SCH ×2 (08:00→20:04)
[2022-09-25 08:58] VITALS: TEMP 98.6
[2022-09-25] MEDS: HYDROGEN PEROXIDE 3% 118 ML BOTTLE TOP SCH ×2 (09:00→20:07)
[2022-09-25] MEDS: TIZANIDINE HCL 4 MG TABLET GT SCH ×2 (09:29→18:52)
[2022-09-25] MEDS: METOCLOPRAMIDE HCL 10 MG TABLET GT SCH ×3 (09:29→18:52)
[2022-09-25] MEDS: NEOMY/BACITRA/POLYMYXIN B OINT UD PACKET TP SCH ×2 (09:29→21:00)
[2022-09-25] MEDS: ACIDOPHILUS/BULGARICUS CHEW TAB GT SCH ×2 (09:29→21:00)
[2022-09-25] MEDS: REMEDY ESSENTIAL ZINC PASTE 113 GM TP SCH ×2 (09:29→21:00)
[2022-09-25 14:24] VITALS: O2SAT 98
[2022-09-25] MEDS: NUTRISOURCE FIBER 4 GM PACKET GT SCH (21:00)
[2022-09-25] MEDS: RIVAROXABAN 10 MG TABLET GT SCH (21:00)
[2022-09-25] MEDS: MELATONIN 5MG TABLET GT SCH (21:00)
[2022-09-25 21:26] VITALS: O2SAT 99
[2022-09-25 21:38] VITALS: TEMP 98.7
[2022-09-26] MEDS: FAMOTIDINE 20 MG TABLET GT SCH ×2 (06:24→18:55)
[2022-09-26] MEDS ORDERED: LACOSAMIDE 100 MG/10 ML UDC ONE (07:56)
[2022-09-26] MEDS: LACOSAMIDE 100 MG/10 ML UDC GT SCH ×2 (08:00→20:22)
[2022-09-26] MEDS: levETIRAcetam 500 MG/5 ML LIQUID UDC GT SCH ×2 (08:00→20:22)
[2022-09-26] MEDS: HYDROGEN PEROXIDE 3% 118 ML BOTTLE TOP SCH ×2 (09:00→21:00)
[2022-09-26] MEDS: REMEDY ESSENTIAL ZINC PASTE 113 GM TP SCH ×2 (09:09→20:24)
[2022-09-26] MEDS: [UNRECOGNIZED DRUG - OTHER] TP SCH (09:09)
[2022-09-26] MEDS: METOCLOPRAMIDE HCL 10 MG TABLET GT SCH ×3 (09:09→18:55)
[2022-09-26] MEDS: TIZANIDINE HCL 4 MG TABLET GT SCH ×2 (09:09→18:55)
[2022-09-26] MEDS: NEOMY/BACITRA/POLYMYXIN B OINT UD PACKET TP SCH ×2 (09:09→20:24)
[2022-09-26] MEDS: ACIDOPHILUS/BULGARICUS CHEW TAB GT SCH ×2 (09:09→20:23)
[2022-09-26 10:41] VITALS: O2SAT 98
[2022-09-26 13:09] VITALS: TEMP 98.7
[2022-09-26 13:37] VITALS: O2SAT 98
[2022-09-26 20:00] VITALS: TEMP 97.8
[2022-09-26] MEDS: NUTRISOURCE FIBER 4 GM PACKET GT SCH (20:23)
[2022-09-26] MEDS: RIVAROXABAN 10 MG TABLET GT SCH (20:23)
[2022-09-26] MEDS: MELATONIN 5MG TABLET GT SCH (20:23)
[2022-09-26] MEDS: CLOTRIMAZOLE 1% CREAM 30 GM TUBE TP SCH (20:23)
[2022-09-26 21:30] VITALS: O2SAT 99
[2022-09-27] MEDS: FAMOTIDINE 20 MG TABLET GT SCH ×2 (06:35→18:32)
[2022-09-27 07:36] VITALS: TEMP 98.2
[2022-09-27] MEDS: levETIRAcetam 500 MG/5 ML LIQUID UDC GT SCH ×2 (08:03→19:59)
[2022-09-27] MEDS ORDERED: LACOSAMIDE 100 MG/10 ML UDC ONE ×2 (08:06→16:38)
[2022-09-27] MEDS: HYDROGEN PEROXIDE 3% 118 ML BOTTLE TOP SCH ×2 (08:12→20:25)
[2022-09-27] MEDS: ACIDOPHILUS/BULGARICUS CHEW TAB GT SCH ×2 (08:15→21:00)
[2022-09-27] MEDS: METOCLOPRAMIDE HCL 10 MG TABLET GT SCH ×3 (08:15→18:32)
[2022-09-27] MEDS: TIZANIDINE HCL 4 MG TABLET GT SCH ×2 (08:18→18:32)
[2022-09-27] MEDS: REMEDY ESSENTIAL ZINC PASTE 113 GM TP SCH ×2 (08:19→21:00)
[2022-09-27] MEDS: CLOTRIMAZOLE 1% CREAM 30 GM TUBE TP SCH ×2 (08:19→21:00)
[2022-09-27] MEDS: LACOSAMIDE 100 MG/10 ML UDC GT SCH ×2 (08:21→19:59)
[2022-09-27] MEDS: VITAL AF 1.2 1,000 ML LIQUID GT PRN ×2 (11:26→15:29)
[2022-09-27 13:22] VITALS: O2SAT 98
[2022-09-27 20:00] VITALS: O2SAT 99
[2022-09-27 20:33] VITALS: TEMP 98.5
[2022-09-27] MEDS: RIVAROXABAN 10 MG TABLET GT SCH (21:00)
[2022-09-27] MEDS: MELATONIN 5MG TABLET GT SCH (21:00)
[2022-09-27] MEDS: NUTRISOURCE FIBER 4 GM PACKET GT SCH (21:00)
[2022-09-28] MEDS: FAMOTIDINE 20 MG TABLET GT SCH ×2 (05:30→18:41)
[2022-09-28 07:10] VITALS: O2SAT 98
[2022-09-28 07:18] VITALS: TEMP 98.5
[2022-09-28] MEDS: LACOSAMIDE 100 MG/10 ML UDC GT SCH ×2 (08:00→20:09)
[2022-09-28] MEDS: levETIRAcetam 500 MG/5 ML LIQUID UDC GT SCH ×2 (08:00→20:09)
[2022-09-28] MEDS ORDERED: LACOSAMIDE 100 MG/10 ML UDC ONE ×2 (09:00→21:00)
[2022-09-28] MEDS: HYDROGEN PEROXIDE 3% 118 ML BOTTLE TOP SCH ×2 (09:00→20:12)
[2022-09-28] MEDS: METOCLOPRAMIDE HCL 10 MG TABLET GT SCH ×3 (09:06→18:41)
[2022-09-28] MEDS: ACIDOPHILUS/BULGARICUS CHEW TAB GT SCH ×2 (09:06→21:00)
[2022-09-28] MEDS: TIZANIDINE HCL 4 MG TABLET GT SCH ×2 (09:07→18:41)
[2022-09-28] MEDS: CLOTRIMAZOLE 1% CREAM 30 GM TUBE TP SCH ×2 (09:07→21:00)
[2022-09-28] MEDS: [UNRECOGNIZED DRUG - OTHER] TP SCH (09:07)
[2022-09-28] MEDS: REMEDY ESSENTIAL ZINC PASTE 113 GM TP SCH ×2 (09:07→21:00)
[2022-09-28 13:58] VITALS: O2SAT 98
[2022-09-28] MEDS: VITAL AF 1.2 1,000 ML LIQUID GT PRN (20:10)
[2022-09-28 20:13] VITALS: O2SAT 99
[2022-09-28] MEDS: MELATONIN 5MG TABLET GT SCH (21:00)
[2022-09-28] MEDS: RIVAROXABAN 10 MG TABLET GT SCH (21:00)
[2022-09-28] MEDS: NUTRISOURCE FIBER 4 GM PACKET GT SCH (21:00)
[2022-09-29 05:00] VITALS: TEMP 98.5
[2022-09-29] MEDS: FAMOTIDINE 20 MG TABLET GT SCH ×2 (05:49→18:39)
[2022-09-29 07:13] VITALS: TEMP 98.2
[2022-09-29] MEDS: METOCLOPRAMIDE HCL 10 MG TABLET GT SCH ×3 (08:00→18:39)
[2022-09-29] MEDS: TIZANIDINE HCL 4 MG TABLET GT SCH ×2 (08:00→18:39)
[2022-09-29] MEDS: LACOSAMIDE 100 MG/10 ML UDC GT SCH ×2 (08:00→19:57)
[2022-09-29] MEDS: CLOTRIMAZOLE 1% CREAM 30 GM TUBE TP SCH ×2 (08:00→21:00)
[2022-09-29] MEDS: REMEDY ESSENTIAL ZINC PASTE 113 GM TP SCH ×2 (08:00→21:00)
[2022-09-29] MEDS: levETIRAcetam 500 MG/5 ML LIQUID UDC GT SCH ×2 (08:00→19:57)
[2022-09-29] MEDS: ACIDOPHILUS/BULGARICUS CHEW TAB GT SCH ×2 (08:00→21:00)
[2022-09-29] MEDS: HYDROGEN PEROXIDE 3% 118 ML BOTTLE TOP SCH ×2 (08:29→19:07)
[2022-09-29] MEDS ORDERED: LACOSAMIDE 100 MG/10 ML UDC ONE (09:00)
[2022-09-29 10:30] VITALS: O2SAT 98
[2022-09-29 19:50] VITALS: O2SAT 99
[2022-09-29 20:00] VITALS: TEMP 98.5
[2022-09-29] MEDS: RIVAROXABAN 10 MG TABLET GT SCH (21:00)
[2022-09-29] MEDS: MELATONIN 5MG TABLET GT SCH (21:00)
[2022-09-29] MEDS: NUTRISOURCE FIBER 4 GM PACKET GT SCH (21:00)
[2022-09-29] MEDS: VITAL AF 1.2 1,000 ML LIQUID GT PRN (23:35)
[2022-09-30] MEDS: FAMOTIDINE 20 MG TABLET GT SCH ×2 (05:32→18:44)
[2022-09-30 08:00] VITALS: TEMP 97.6
[2022-09-30] MEDS: LACOSAMIDE 100 MG/10 ML UDC GT SCH ×2 (08:00→20:17)
[2022-09-30] MEDS: levETIRAcetam 500 MG/5 ML LIQUID UDC GT SCH ×2 (08:00→20:17)
[2022-09-30] MEDS: HYDROGEN PEROXIDE 3% 118 ML BOTTLE TOP SCH ×2 (08:24→19:20)
[2022-09-30] MEDS: ACIDOPHILUS/BULGARICUS CHEW TAB GT SCH ×2 (09:01→21:38)
[2022-09-30] MEDS: TIZANIDINE HCL 4 MG TABLET GT SCH ×2 (09:04→18:44)
[2022-09-30] MEDS: REMEDY ESSENTIAL ZINC PASTE 113 GM TP SCH ×2 (09:04→21:38)
[2022-09-30] MEDS: METOCLOPRAMIDE HCL 10 MG TABLET GT SCH ×3 (09:04→18:44)
[2022-09-30] MEDS: [UNRECOGNIZED DRUG - OTHER] TP SCH (09:04)
[2022-09-30] MEDS: CLOTRIMAZOLE 1% CREAM 30 GM TUBE TP SCH ×2 (09:04→21:38)
[2022-09-30 13:38] VITALS: O2SAT 98
[2022-09-30 21:14] VITALS: O2SAT 98
[2022-09-30] MEDS: MELATONIN 5MG TABLET GT SCH (21:38)
[2022-09-30] MEDS: NUTRISOURCE FIBER 4 GM PACKET GT SCH (21:38)
[2022-09-30] MEDS: RIVAROXABAN 10 MG TABLET GT SCH (21:40)
[2022-10-01] MEDS: VITAL AF 1.2 1,000 ML LIQUID GT PRN (01:45)
[2022-10-01] MEDS: MAGNESIUM HYDROXIDE 30 ML LIQUID UDC GT PRN (01:54)
[2022-10-01] MEDS: FAMOTIDINE 20 MG TABLET GT SCH ×2 (05:55→19:00)
[2022-10-01] MEDS: CLOTRIMAZOLE 1% CREAM 30 GM TUBE TP SCH ×2 (08:00→21:00)
[2022-10-01] MEDS: levETIRAcetam 500 MG/5 ML LIQUID UDC GT SCH ×2 (08:00→20:11)
[2022-10-01] MEDS: ACIDOPHILUS/BULGARICUS CHEW TAB GT SCH ×2 (08:00→21:00)
[2022-10-01] MEDS: REMEDY ESSENTIAL ZINC PASTE 113 GM TP SCH ×2 (08:00→21:00)
[2022-10-01] MEDS: LACOSAMIDE 100 MG/10 ML UDC GT SCH ×2 (08:00→20:11)
[2022-10-01] MEDS: TIZANIDINE HCL 4 MG TABLET GT SCH ×2 (08:00→19:01)
[2022-10-01] MEDS: METOCLOPRAMIDE HCL 10 MG TABLET GT SCH ×3 (08:00→19:00)
[2022-10-01] MEDS: HYDROGEN PEROXIDE 3% 118 ML BOTTLE TOP SCH ×2 (10:40→20:16)
[2022-10-01 10:45] VITALS: O2SAT 98
[2022-10-01 11:35] VITALS: TEMP 97.6
[2022-10-01] MEDS: RIVAROXABAN 10 MG TABLET GT SCH (21:00)
[2022-10-01] MEDS: NUTRISOURCE FIBER 4 GM PACKET GT SCH (21:00)
[2022-10-01] MEDS: MELATONIN 5MG TABLET GT SCH (21:00)
[2022-10-01 22:00] VITALS: O2SAT 98
[2022-10-02 03:00] VITALS: TEMP 98.5
[2022-10-02] MEDS: FAMOTIDINE 20 MG TABLET GT SCH ×2 (06:11→19:01)
[2022-10-02 07:08] VITALS: TEMP 98.3
[2022-10-02] MEDS: BISACODYL 10 MG SUPP.RECT RC PRN (07:30)
[2022-10-02] MEDS: levETIRAcetam 500 MG/5 ML LIQUID UDC GT SCH ×2 (08:00→19:50)
[2022-10-02] MEDS: LACOSAMIDE 100 MG/10 ML UDC GT SCH ×2 (08:00→19:50)
[2022-10-02] MEDS: HYDROGEN PEROXIDE 3% 118 ML BOTTLE TOP SCH ×2 (09:00→21:05)
[2022-10-02] MEDS: [UNRECOGNIZED DRUG - OTHER] TP SCH (09:39)
[2022-10-02] MEDS: ACIDOPHILUS/BULGARICUS CHEW TAB GT SCH ×2 (09:39→21:00)
[2022-10-02] MEDS: TIZANIDINE HCL 4 MG TABLET GT SCH ×2 (09:39→19:01)
[2022-10-02] MEDS: CLOTRIMAZOLE 1% CREAM 30 GM TUBE TP SCH ×2 (09:39→21:00)
[2022-10-02] MEDS: REMEDY ESSENTIAL ZINC PASTE 113 GM TP SCH ×2 (09:39→21:00)
[2022-10-02] MEDS: METOCLOPRAMIDE HCL 10 MG TABLET GT SCH ×3 (09:39→19:01)
[2022-10-02 10:35] VITALS: O2SAT 99
[2022-10-02] MEDS: NUTRISOURCE FIBER 4 GM PACKET GT SCH (21:00)
[2022-10-02] MEDS: MELATONIN 5MG TABLET GT SCH (21:00)
[2022-10-02] MEDS: RIVAROXABAN 10 MG TABLET GT SCH (21:00)
[2022-10-02 21:05] VITALS: O2SAT 99
[2022-10-03 01:00] VITALS: TEMP 98.7
[2022-10-03] MEDS: FAMOTIDINE 20 MG TABLET GT SCH ×2 (05:12→18:59)
[2022-10-03 07:31] VITALS: TEMP 98.5
[2022-10-03] MEDS: HYDROGEN PEROXIDE 3% 118 ML BOTTLE TOP SCH ×2 (07:47→21:01)
[2022-10-03 07:51] VITALS: O2SAT 98
[2022-10-03] MEDS: LACOSAMIDE 100 MG/10 ML UDC GT SCH ×2 (08:43→20:05)
[2022-10-03] MEDS: TIZANIDINE HCL 4 MG TABLET GT SCH ×2 (08:43→18:59)
[2022-10-03] MEDS: METOCLOPRAMIDE HCL 10 MG TABLET GT SCH ×3 (08:43→18:59)
[2022-10-03] MEDS: levETIRAcetam 500 MG/5 ML LIQUID UDC GT SCH ×2 (08:43→20:05)
[2022-10-03] MEDS: ACIDOPHILUS/BULGARICUS CHEW TAB GT SCH ×2 (08:43→20:06)
[2022-10-03] MEDS: CLOTRIMAZOLE 1% CREAM 30 GM TUBE TP SCH ×2 (08:43→20:09)
[2022-10-03] MEDS: REMEDY ESSENTIAL ZINC PASTE 113 GM TP SCH ×2 (08:43→20:09)
[2022-10-03] MEDS: BISACODYL 10 MG SUPP.RECT RC PRN (17:24)
[2022-10-03] MEDS: MELATONIN 5MG TABLET GT SCH (20:07)
[2022-10-03] MEDS: NUTRISOURCE FIBER 4 GM PACKET GT SCH (20:08)
[2022-10-03] MEDS: RIVAROXABAN 10 MG TABLET GT SCH (20:08)
[2022-10-03 20:39] VITALS: TEMP 97.7
[2022-10-03 21:00] VITALS: O2SAT 99
[2022-10-04] MEDS: FAMOTIDINE 20 MG TABLET GT SCH ×2 (06:38→18:52)
[2022-10-04] MEDS: LACOSAMIDE 100 MG/10 ML UDC GT SCH ×2 (08:00→20:00)
[2022-10-04] MEDS: levETIRAcetam 500 MG/5 ML LIQUID UDC GT SCH ×2 (08:00→20:00)
[2022-10-04 08:04] VITALS: O2SAT 98
[2022-10-04] MEDS: METOCLOPRAMIDE HCL 10 MG TABLET GT SCH ×3 (09:00→18:52)
[2022-10-04] MEDS: REMEDY ESSENTIAL ZINC PASTE 113 GM TP SCH ×2 (09:00→21:40)
[2022-10-04] MEDS: ACIDOPHILUS/BULGARICUS CHEW TAB GT SCH ×2 (09:00→21:39)
[2022-10-04] MEDS: TIZANIDINE HCL 4 MG TABLET GT SCH ×2 (09:00→18:53)
[2022-10-04] MEDS: [UNRECOGNIZED DRUG - OTHER] TP SCH (09:00)
[2022-10-04] MEDS: CLOTRIMAZOLE 1% CREAM 30 GM TUBE TP SCH ×2 (09:00→21:40)
[2022-10-04] MEDS: HYDROGEN PEROXIDE 3% 118 ML BOTTLE TOP SCH ×2 (09:29→20:40)
[2022-10-04 20:40] VITALS: O2SAT 99
[2022-10-04] MEDS: NUTRISOURCE FIBER 4 GM PACKET GT SCH (21:00)
[2022-10-04] MEDS: RIVAROXABAN 10 MG TABLET GT SCH (21:39)
[2022-10-04] MEDS: MELATONIN 5MG TABLET GT SCH (21:39)
[2022-10-04] MEDS: VITAL AF 1.2 1,000 ML LIQUID GT PRN (23:00)
[2022-10-05 01:30] VITALS: TEMP 98.7
[2022-10-05] MEDS: FAMOTIDINE 20 MG TABLET GT SCH ×2 (06:28→18:40)
[2022-10-05 07:26] VITALS: TEMP 98.1
[2022-10-05 08:05] VITALS: O2SAT 98
[2022-10-05] MEDS: levETIRAcetam 500 MG/5 ML LIQUID UDC GT SCH ×2 (08:54→19:56)
[2022-10-05] MEDS: METOCLOPRAMIDE HCL 10 MG TABLET GT SCH ×3 (08:55→18:40)
[2022-10-05] MEDS: ACIDOPHILUS/BULGARICUS CHEW TAB GT SCH ×2 (08:55→21:00)
[2022-10-05] MEDS: TIZANIDINE HCL 4 MG TABLET GT SCH ×2 (08:55→18:40)
[2022-10-05] MEDS: REMEDY ESSENTIAL ZINC PASTE 113 GM TP SCH ×2 (08:56→21:00)
[2022-10-05] MEDS: LACOSAMIDE 100 MG/10 ML UDC GT SCH ×2 (08:59→19:56)
[2022-10-05] MEDS: HYDROGEN PEROXIDE 3% 118 ML BOTTLE TOP SCH ×2 (09:00→19:15)
[2022-10-05] MEDS: CLOTRIMAZOLE 1% CREAM 30 GM TUBE TP SCH ×2 (09:00→21:00)
[2022-10-05 15:00] VITALS: O2SAT 98
[2022-10-05 20:00] VITALS: O2SAT 99
[2022-10-05] MEDS: NUTRISOURCE FIBER 4 GM PACKET GT SCH (21:00)
[2022-10-05] MEDS: MELATONIN 5MG TABLET GT SCH (21:00)
[2022-10-05] MEDS: RIVAROXABAN 10 MG TABLET GT SCH (21:00)
[2022-10-06 04:01] VITALS: TEMP 98.3
[2022-10-06] MEDS: FAMOTIDINE 20 MG TABLET GT SCH ×2 (05:44→19:01)
[2022-10-06] MEDS: VITAL AF 1.2 1,000 ML LIQUID GT PRN (05:44)
[2022-10-06] MEDS: BISACODYL 10 MG SUPP.RECT RC PRN (05:46)
[2022-10-06 07:20] VITALS: TEMP 98.4
[2022-10-06] MEDS: levETIRAcetam 500 MG/5 ML LIQUID UDC GT SCH ×2 (08:00→20:04)
[2022-10-06] MEDS: LACOSAMIDE 100 MG/10 ML UDC GT SCH ×2 (08:00→20:04)
[2022-10-06] MEDS: HYDROGEN PEROXIDE 3% 118 ML BOTTLE TOP SCH ×2 (09:00→18:30)
[2022-10-06] MEDS: ACIDOPHILUS/BULGARICUS CHEW TAB GT SCH ×2 (09:08→20:04)
[2022-10-06] MEDS: CLOTRIMAZOLE 1% CREAM 30 GM TUBE TP SCH ×2 (09:09→21:00)
[2022-10-06] MEDS: REMEDY ESSENTIAL ZINC PASTE 113 GM TP SCH ×2 (09:09→21:00)
[2022-10-06] MEDS: METOCLOPRAMIDE HCL 10 MG TABLET GT SCH ×3 (09:09→19:01)
[2022-10-06] MEDS: [UNRECOGNIZED DRUG - OTHER] TP SCH (09:09)
[2022-10-06] MEDS: TIZANIDINE HCL 4 MG TABLET GT SCH ×2 (09:09→19:01)
[2022-10-06 10:40] VITALS: O2SAT 99
[2022-10-06 18:30] VITALS: O2SAT 99
[2022-10-06] MEDS: NUTRISOURCE FIBER 4 GM PACKET GT SCH (21:00)
[2022-10-06] MEDS: MELATONIN 5MG TABLET GT SCH (21:00)
[2022-10-06] MEDS: RIVAROXABAN 10 MG TABLET GT SCH (21:00)
[2022-10-06 23:00] VITALS: TEMP 98.5
[2022-10-07] MEDS: FAMOTIDINE 20 MG TABLET GT SCH ×2 (05:42→18:59)
[2022-10-07 07:43] VITALS: TEMP 97.6
[2022-10-07] MEDS: levETIRAcetam 500 MG/5 ML LIQUID UDC GT SCH ×2 (08:00→20:21)
[2022-10-07] MEDS: LACOSAMIDE 100 MG/10 ML UDC GT SCH ×2 (08:00→20:21)
[2022-10-07] MEDS: HYDROGEN PEROXIDE 3% 118 ML BOTTLE TOP SCH ×2 (08:48→21:49)
[2022-10-07] MEDS: METOCLOPRAMIDE HCL 10 MG TABLET GT SCH ×3 (09:42→18:59)
[2022-10-07] MEDS: REMEDY ESSENTIAL ZINC PASTE 113 GM TP SCH ×2 (09:42→21:00)
[2022-10-07] MEDS: TIZANIDINE HCL 4 MG TABLET GT SCH ×2 (09:42→18:59)
[2022-10-07] MEDS: ACIDOPHILUS/BULGARICUS CHEW TAB GT SCH ×2 (09:42→21:36)
[2022-10-07] MEDS: CLOTRIMAZOLE 1% CREAM 30 GM TUBE TP SCH ×2 (09:42→21:00)
[2022-10-07] MEDS: VITAL AF 1.2 1,000 ML LIQUID GT PRN (12:34)
[2022-10-07 14:07] VITALS: O2SAT 98
[2022-10-07 20:17] VITALS: O2SAT 99
[2022-10-07] MEDS: MELATONIN 5MG TABLET GT SCH (21:36)
[2022-10-07] MEDS: NUTRISOURCE FIBER 4 GM PACKET GT SCH (21:37)
[2022-10-07] MEDS: RIVAROXABAN 10 MG TABLET GT SCH (21:37)
[2022-10-08 02:00] VITALS: TEMP 98.6
[2022-10-08] MEDS: FAMOTIDINE 20 MG TABLET GT SCH ×2 (05:25→18:52)
[2022-10-08] MEDS: levETIRAcetam 500 MG/5 ML LIQUID UDC GT SCH ×2 (08:15→20:31)
[2022-10-08] MEDS: LACOSAMIDE 100 MG/10 ML UDC GT SCH ×2 (08:15→20:31)
[2022-10-08] MEDS: ACIDOPHILUS/BULGARICUS CHEW TAB GT SCH ×2 (08:16→21:00)
[2022-10-08] MEDS: REMEDY ESSENTIAL ZINC PASTE 113 GM TP SCH ×2 (08:17→21:00)
[2022-10-08] MEDS: CLOTRIMAZOLE 1% CREAM 30 GM TUBE TP SCH ×2 (08:17→21:00)
[2022-10-08] MEDS: METOCLOPRAMIDE HCL 10 MG TABLET GT SCH ×3 (08:17→18:52)
[2022-10-08] MEDS: TIZANIDINE HCL 4 MG TABLET GT SCH ×2 (08:17→18:52)
[2022-10-08] MEDS: [UNRECOGNIZED DRUG - OTHER] TP SCH (08:17)
[2022-10-08] MEDS: HYDROGEN PEROXIDE 3% 118 ML BOTTLE TOP SCH ×2 (10:03→20:17)
[2022-10-08 10:12] VITALS: O2SAT 99
[2022-10-08] MEDS: VITAL AF 1.2 1,000 ML LIQUID GT PRN (17:49)
[2022-10-08 20:17] VITALS: O2SAT 99
[2022-10-08] MEDS: RIVAROXABAN 10 MG TABLET GT SCH (21:00)
[2022-10-08] MEDS: MELATONIN 5MG TABLET GT SCH (21:00)
[2022-10-08] MEDS: NUTRISOURCE FIBER 4 GM PACKET GT SCH (21:00)
[2022-10-09] MEDS: FAMOTIDINE 20 MG TABLET GT SCH ×2 (06:50→18:40)
[2022-10-09 07:30] VITALS: O2SAT 99
[2022-10-09] MEDS: levETIRAcetam 500 MG/5 ML LIQUID UDC GT SCH ×2 (08:00→20:14)
[2022-10-09] MEDS: LACOSAMIDE 100 MG/10 ML UDC GT SCH ×2 (08:00→20:14)
[2022-10-09] MEDS: HYDROGEN PEROXIDE 3% 118 ML BOTTLE TOP SCH ×2 (08:27→19:12)
[2022-10-09 09:03] VITALS: TEMP 97.6
[2022-10-09] MEDS: METOCLOPRAMIDE HCL 10 MG TABLET GT SCH ×3 (09:49→18:40)
[2022-10-09] MEDS: CLOTRIMAZOLE 1% CREAM 30 GM TUBE TP SCH ×2 (09:49→21:00)
[2022-10-09] MEDS: REMEDY ESSENTIAL ZINC PASTE 113 GM TP SCH ×2 (09:49→21:00)
[2022-10-09] MEDS: ACIDOPHILUS/BULGARICUS CHEW TAB GT SCH ×2 (09:49→21:00)
[2022-10-09] MEDS: TIZANIDINE HCL 4 MG TABLET GT SCH ×2 (09:49→18:40)
[2022-10-09 17:58] VITALS: O2SAT 98
[2022-10-09 19:55] VITALS: O2SAT 99
[2022-10-09] MEDS: RIVAROXABAN 10 MG TABLET GT SCH (21:00)
[2022-10-09] MEDS: MELATONIN 5MG TABLET GT SCH (21:00)
[2022-10-10] MEDS: VITAL AF 1.2 1,000 ML LIQUID GT PRN (03:51)
[2022-10-10 04:00] VITALS: TEMP 98.4
[2022-10-10] MEDS: BISACODYL 10 MG SUPP.RECT RC PRN (06:01)
[2022-10-10] MEDS: FAMOTIDINE 20 MG TABLET GT SCH ×2 (06:01→18:51)
[2022-10-10 07:15] VITALS: TEMP 97.5
[2022-10-10] MEDS: LACOSAMIDE 100 MG/10 ML UDC GT SCH ×2 (08:21→20:00)
[2022-10-10] MEDS: levETIRAcetam 500 MG/5 ML LIQUID UDC GT SCH ×2 (08:21→20:00)
[2022-10-10] MEDS: ACIDOPHILUS/BULGARICUS CHEW TAB GT SCH ×2 (08:21→21:48)
[2022-10-10] MEDS: METOCLOPRAMIDE HCL 10 MG TABLET GT SCH ×3 (08:22→18:52)
[2022-10-10] MEDS: TIZANIDINE HCL 4 MG TABLET GT SCH ×2 (08:22→18:53)
[2022-10-10] MEDS: REMEDY ESSENTIAL ZINC PASTE 113 GM TP SCH ×2 (09:26→21:48)
[2022-10-10] MEDS: CLOTRIMAZOLE 1% CREAM 30 GM TUBE TP SCH ×2 (09:26→21:48)
[2022-10-10] MEDS: [UNRECOGNIZED DRUG - OTHER] TP SCH (09:26)
[2022-10-10 10:50] VITALS: O2SAT 99
[2022-10-10] MEDS: HYDROGEN PEROXIDE 3% 118 ML BOTTLE TOP SCH ×2 (10:50→19:14)
[2022-10-10] MEDS: MELATONIN 5MG TABLET GT SCH (21:48)
[2022-10-10] MEDS: RIVAROXABAN 10 MG TABLET GT SCH (21:49)
[2022-10-10 22:59] VITALS: O2SAT 99
[2022-10-11 04:00] VITALS: TEMP 97.6
[2022-10-11] MEDS: FAMOTIDINE 20 MG TABLET GT SCH ×2 (06:00→18:56)
[2022-10-11 07:15] VITALS: TEMP 98.4
[2022-10-11] MEDS: HYDROGEN PEROXIDE 3% 118 ML BOTTLE TOP SCH ×2 (07:15→21:34)
[2022-10-11] MEDS: levETIRAcetam 500 MG/5 ML LIQUID UDC GT SCH ×2 (08:33→20:19)
[2022-10-11] MEDS: LACOSAMIDE 100 MG/10 ML UDC GT SCH ×2 (08:33→20:19)
[2022-10-11] MEDS: ACIDOPHILUS/BULGARICUS CHEW TAB GT SCH ×2 (08:34→20:19)
[2022-10-11] MEDS: METOCLOPRAMIDE HCL 10 MG TABLET GT SCH ×3 (08:34→18:56)
[2022-10-11] MEDS: TIZANIDINE HCL 4 MG TABLET GT SCH ×2 (08:35→18:56)
[2022-10-11] MEDS: CLOTRIMAZOLE 1% CREAM 30 GM TUBE TP SCH (08:37)
[2022-10-11] MEDS: REMEDY ESSENTIAL ZINC PASTE 113 GM TP SCH ×2 (08:38→20:20)
[2022-10-11 10:40] VITALS: O2SAT 98
[2022-10-11 20:00] VITALS: TEMP 98.4
[2022-10-11] MEDS: MELATONIN 5MG TABLET GT SCH (20:20)
[2022-10-11] MEDS: RIVAROXABAN 10 MG TABLET GT SCH (20:20)
[2022-10-11 21:05] VITALS: O2SAT 99
[2022-10-12] MEDS: FAMOTIDINE 20 MG TABLET GT SCH ×2 (05:46→19:09)
[2022-10-12 07:14] VITALS: TEMP 98
[2022-10-12 07:15] VITALS: O2SAT 98
[2022-10-12] MEDS: LACOSAMIDE 100 MG/10 ML UDC GT SCH ×2 (08:53→20:14)
[2022-10-12] MEDS: levETIRAcetam 500 MG/5 ML LIQUID UDC GT SCH ×2 (08:53→20:14)
[2022-10-12] MEDS: METOCLOPRAMIDE HCL 10 MG TABLET GT SCH ×3 (08:54→19:09)
[2022-10-12] MEDS: ACIDOPHILUS/BULGARICUS CHEW TAB GT SCH ×2 (08:54→21:00)
[2022-10-12] MEDS: REMEDY ESSENTIAL ZINC PASTE 113 GM TP SCH ×2 (08:55→21:00)
[2022-10-12] MEDS: TIZANIDINE HCL 4 MG TABLET GT SCH ×2 (08:55→19:09)
[2022-10-12] MEDS: [UNRECOGNIZED DRUG - OTHER] TP SCH (08:55)
[2022-10-12] MEDS: HYDROGEN PEROXIDE 3% 118 ML BOTTLE TOP SCH ×2 (09:00→20:31)
[2022-10-12] MEDS: VITAL AF 1.2 1,000 ML LIQUID GT PRN (14:39)
[2022-10-12 16:03] VITALS: O2SAT 98
[2022-10-12 20:00] VITALS: TEMP 98.8
[2022-10-12 21:00] VITALS: O2SAT 99
[2022-10-12] MEDS: MELATONIN 5MG TABLET GT SCH (21:00)
[2022-10-13] MEDS: FAMOTIDINE 20 MG TABLET GT SCH ×2 (05:11→18:49)
[2022-10-13 07:03] VITALS: O2SAT 98
[2022-10-13 07:38] VITALS: TEMP 98.8
[2022-10-13] MEDS: levETIRAcetam 500 MG/5 ML LIQUID UDC GT SCH ×2 (08:01→20:14)
[2022-10-13] MEDS: ACIDOPHILUS/BULGARICUS CHEW TAB GT SCH ×2 (08:01→21:00)
[2022-10-13] MEDS: LACOSAMIDE 100 MG/10 ML UDC GT SCH ×2 (08:01→20:14)
[2022-10-13] MEDS: METOCLOPRAMIDE HCL 10 MG TABLET GT SCH ×3 (08:01→18:50)
[2022-10-13] MEDS: REMEDY ESSENTIAL ZINC PASTE 113 GM TP SCH ×2 (08:02→21:00)
[2022-10-13] MEDS: TIZANIDINE HCL 4 MG TABLET GT SCH ×2 (08:02→18:50)
[2022-10-13 08:54] LABS: BASOPHILS % (AUTO) 0.7 % (0.0-2.0); DIFFERENTIAL COMMENT 1; EOSINOPHILS # (AUTO) 0.3 K/uL (0.0-0.7); EOSINOPHILS % (AUTO) 4.3 % (0.0-7.0); HEMATOCRIT 39.8 % (31.2-41.9); HEMOGLOBIN 13.1 g/dL (10.9-14.3); LYMPHOCYTES # (AUTO) 1.5 K/uL (0.8-4.8); LYMPHOCYTES % (AUTO) 24.2 % (20.5-51.5); MEAN CORPUSCULAR HEMOGLOBIN 29.6 uug (24.7-32.8); MEAN CORPUSCULAR HGB CONC 33 g/dL (32.3-35.6); MONOCYTES # (AUTO) 0.4 K/uL (0.1-1.30); MONOCYTES % (AUTO) 6.9 % (0.0-11.0); NEUTROPHILS % (AUTO) 63.9 % (38.5-71.5); PLATELET COUNT (AUTO) 270 K/uL (179-408); RED BLOOD CELL COUNT(AUTO) 4.42 MIL/uL (3.63-4.92); RED CELL DISTRIBUTION WIDTH 13.2 % (12.3-17.7); WHITE BLOOD COUNT (AUTO) 6.2 K/uL (3.8-11.8)
[2022-10-13] MEDS: HYDROGEN PEROXIDE 3% 118 ML BOTTLE TOP SCH ×2 (09:00→19:09)
[2022-10-13 09:04] LABS: CALCIUM 9.4 mg/dL (8.5-10.1); CREATININE 0.6 mg/dL (0.6-1.3); POTASSIUM 4.2 mmol/L (3.5-5.1)
[2022-10-13 16:20] VITALS: O2SAT 98
[2022-10-13 19:15] VITALS: O2SAT 99
[2022-10-13 20:00] VITALS: TEMP 97.6
[2022-10-13] MEDS: VITAL AF 1.2 1,000 ML LIQUID GT PRN (20:15)
[2022-10-13] MEDS: MELATONIN 5MG TABLET GT SCH (21:00)
[2022-10-13] MEDS: RIVAROXABAN 10 MG TABLET GT SCH (21:00)
[2022-10-14] MEDS: FAMOTIDINE 20 MG TABLET GT SCH ×2 (06:04→18:47)
[2022-10-14 07:51] VITALS: TEMP 98.5
[2022-10-14] MEDS: levETIRAcetam 500 MG/5 ML LIQUID UDC GT SCH ×2 (08:40→20:10)
[2022-10-14] MEDS: TIZANIDINE HCL 4 MG TABLET GT SCH ×2 (08:43→18:49)
[2022-10-14] MEDS: METOCLOPRAMIDE HCL 10 MG TABLET GT SCH ×3 (08:43→18:47)
[2022-10-14] MEDS: ACIDOPHILUS/BULGARICUS CHEW TAB GT SCH ×2 (08:43→21:00)
[2022-10-14] MEDS: REMEDY ESSENTIAL ZINC PASTE 113 GM TP SCH ×2 (08:45→21:00)
[2022-10-14] MEDS: [UNRECOGNIZED DRUG - OTHER] TP SCH (08:47)
[2022-10-14] MEDS: LACOSAMIDE 100 MG/10 ML UDC GT SCH ×2 (08:54→20:10)
[2022-10-14 10:50] VITALS: O2SAT 99
[2022-10-14] MEDS: HYDROGEN PEROXIDE 3% 118 ML BOTTLE TOP SCH ×2 (10:50→19:23)
[2022-10-14 20:00] VITALS: TEMP 98.6
[2022-10-14] MEDS: RIVAROXABAN 10 MG TABLET GT SCH (21:00)
[2022-10-14] MEDS: MELATONIN 5MG TABLET GT SCH (21:00)
[2022-10-14 22:44] VITALS: O2SAT 99
[2022-10-15] MEDS: VITAL AF 1.2 1,000 ML LIQUID GT PRN (01:53)
[2022-10-15] MEDS: BISACODYL 10 MG SUPP.RECT RC PRN (05:41)
[2022-10-15] MEDS: FAMOTIDINE 20 MG TABLET GT SCH ×2 (05:41→19:03)
[2022-10-15] MEDS: levETIRAcetam 500 MG/5 ML LIQUID UDC GT SCH ×2 (08:00→20:21)
[2022-10-15] MEDS: HYDROGEN PEROXIDE 3% 118 ML BOTTLE TOP SCH ×2 (08:11→19:28)
[2022-10-15] MEDS: LACOSAMIDE 100 MG/10 ML UDC GT SCH ×2 (08:20→20:21)
[2022-10-15] MEDS: METOCLOPRAMIDE HCL 10 MG TABLET GT SCH ×3 (09:00→19:03)
[2022-10-15] MEDS: REMEDY ESSENTIAL ZINC PASTE 113 GM TP SCH ×2 (09:00→21:00)
[2022-10-15] MEDS: ACIDOPHILUS/BULGARICUS CHEW TAB GT SCH ×2 (09:00→21:00)
[2022-10-15] MEDS: TIZANIDINE HCL 4 MG TABLET GT SCH ×2 (09:00→19:03)
[2022-10-15 11:15] VITALS: TEMP 97.6
[2022-10-15 11:32] VITALS: O2SAT 98
[2022-10-15] MEDS: MELATONIN 5MG TABLET GT SCH (21:00)
[2022-10-15] MEDS: RIVAROXABAN 10 MG TABLET GT SCH (21:00)
[2022-10-15 22:43] VITALS: O2SAT 99
[2022-10-16 02:00] VITALS: TEMP 97.5
[2022-10-16] MEDS: FAMOTIDINE 20 MG TABLET GT SCH ×2 (05:57→18:46)
[2022-10-16 07:31] LABS: POTASSIUM 5.1 mmol/L (3.5-5.1)
[2022-10-16 07:33] LABS: BASOPHILS % (AUTO) 0.8 % (0.0-2.0); EOSINOPHILS # (AUTO) 0.3 K/uL (0.0-0.7); EOSINOPHILS % (AUTO) 5.9 % (0.0-7.0); HEMATOCRIT 38.4 % (31.2-41.9); HEMOGLOBIN 12.8 g/dL (10.9-14.3); LYMPHOCYTES # (AUTO) 1.7 K/uL (0.8-4.8); LYMPHOCYTES % (AUTO) 29.6 % (20.5-51.5); MEAN CORPUSCULAR HEMOGLOBIN 30.1 uug (24.7-32.8); MEAN CORPUSCULAR HGB CONC 33 g/dL (32.3-35.6); MONOCYTES # (AUTO) 0.5 K/uL (0.1-1.30); NEUTROPHILS # (AUTO) 3.2 K/uL (1.8-8.9); NEUTROPHILS % (AUTO) 55.7 % (38.5-71.5); PLATELET COUNT (AUTO) 272 K/uL (179-408); RED BLOOD CELL COUNT(AUTO) 4.26 MIL/uL (3.63-4.92); WHITE BLOOD COUNT (AUTO) 5.7 K/uL (3.8-11.8)
[2022-10-16 07:55] LABS: CALCIUM 9.4 mg/dL (8.5-10.1); CREATININE 0.6 mg/dL (0.6-1.3); MAGNESIUM 2.4 mg/dL (1.8-2.4)
[2022-10-16] MEDS: levETIRAcetam 500 MG/5 ML LIQUID UDC GT SCH ×2 (08:08→20:07)
[2022-10-16 08:09] LABS: PHOSPHOROUS 4.1 mg/dL (2.5-4.9)
[2022-10-16] MEDS: HYDROGEN PEROXIDE 3% 118 ML BOTTLE TOP SCH ×2 (08:11→21:00)
[2022-10-16] MEDS: LACOSAMIDE 100 MG/10 ML UDC GT SCH ×2 (08:14→20:07)
[2022-10-16] MEDS: ACIDOPHILUS/BULGARICUS CHEW TAB GT SCH ×2 (09:24→21:00)
[2022-10-16] MEDS: TIZANIDINE HCL 4 MG TABLET GT SCH ×2 (09:26→18:46)
[2022-10-16] MEDS: METOCLOPRAMIDE HCL 10 MG TABLET GT SCH ×3 (09:26→18:46)
[2022-10-16] MEDS: [UNRECOGNIZED DRUG - OTHER] TP SCH (09:27)
[2022-10-16] MEDS: REMEDY ESSENTIAL ZINC PASTE 113 GM TP SCH ×2 (09:27→21:00)
[2022-10-16 12:31] VITALS: O2SAT 98
[2022-10-16] MEDS: VITAL AF 1.2 1,000 ML LIQUID GT PRN (15:41)
[2022-10-16 21:00] VITALS: O2SAT 99
[2022-10-16] MEDS: RIVAROXABAN 10 MG TABLET GT SCH (21:00)
[2022-10-16] MEDS: MELATONIN 5MG TABLET GT SCH (21:00)
[2022-10-17 05:00] VITALS: TEMP 97.5
[2022-10-17] MEDS: FAMOTIDINE 20 MG TABLET GT SCH ×2 (05:47→18:43)
[2022-10-17 07:05] VITALS: O2SAT 98
[2022-10-17 07:54] VITALS: TEMP 98.5
[2022-10-17] MEDS: LACOSAMIDE 100 MG/10 ML UDC GT SCH ×2 (08:53→20:24)
[2022-10-17] MEDS: levETIRAcetam 500 MG/5 ML LIQUID UDC GT SCH ×2 (08:53→20:24)
[2022-10-17] MEDS: ACIDOPHILUS/BULGARICUS CHEW TAB GT SCH ×2 (08:53→21:00)
[2022-10-17] MEDS: METOCLOPRAMIDE HCL 10 MG TABLET GT SCH ×3 (08:55→18:43)
[2022-10-17] MEDS: HYDROGEN PEROXIDE 3% 118 ML BOTTLE TOP SCH ×2 (09:00→20:57)
[2022-10-17] MEDS: TIZANIDINE HCL 4 MG TABLET GT SCH ×2 (09:05→18:43)
[2022-10-17] MEDS: REMEDY ESSENTIAL ZINC PASTE 113 GM TP SCH ×2 (09:15→21:00)
[2022-10-17 13:29] VITALS: O2SAT 98
[2022-10-17] MEDS: VITAL AF 1.2 1,000 ML LIQUID GT PRN (14:07)
[2022-10-17 20:40] VITALS: O2SAT 99
[2022-10-17] MEDS: MELATONIN 5MG TABLET GT SCH (21:00)
[2022-10-17] MEDS: RIVAROXABAN 10 MG TABLET GT SCH (21:00)
[2022-10-18] MEDS: FAMOTIDINE 20 MG TABLET GT SCH ×2 (05:18→18:45)
[2022-10-18] MEDS: BISACODYL 10 MG SUPP.RECT RC PRN (06:00)
[2022-10-18 07:05] VITALS: O2SAT 98
[2022-10-18] MEDS: HYDROGEN PEROXIDE 3% 118 ML BOTTLE TOP SCH ×2 (07:28→21:05)
[2022-10-18 07:48] VITALS: TEMP 98.4
[2022-10-18] MEDS: ACIDOPHILUS/BULGARICUS CHEW TAB GT SCH ×2 (08:30→21:00)
[2022-10-18] MEDS: levETIRAcetam 500 MG/5 ML LIQUID UDC GT SCH ×2 (08:30→20:21)
[2022-10-18] MEDS: LACOSAMIDE 100 MG/10 ML UDC GT SCH ×2 (08:30→20:21)
[2022-10-18] MEDS: METOCLOPRAMIDE HCL 10 MG TABLET GT SCH ×3 (08:31→18:45)
[2022-10-18] MEDS: REMEDY ESSENTIAL ZINC PASTE 113 GM TP SCH ×2 (08:33→21:00)
[2022-10-18] MEDS: [UNRECOGNIZED DRUG - OTHER] TP SCH (08:33)
[2022-10-18] MEDS: TIZANIDINE HCL 4 MG TABLET GT SCH ×2 (09:46→18:45)
[2022-10-18 14:46] VITALS: O2SAT 98
[2022-10-18 20:50] VITALS: O2SAT 99
[2022-10-18] MEDS: RIVAROXABAN 10 MG TABLET GT SCH (21:00)
[2022-10-18] MEDS: MELATONIN 5MG TABLET GT SCH (21:00)
[2022-10-19] MEDS: VITAL AF 1.2 1,000 ML LIQUID GT PRN (02:00)
[2022-10-19] MEDS: FAMOTIDINE 20 MG TABLET GT SCH ×2 (05:42→18:59)
[2022-10-19 07:27] VITALS: TEMP 97.8
[2022-10-19] MEDS: levETIRAcetam 500 MG/5 ML LIQUID UDC GT SCH ×2 (08:00→20:20)
[2022-10-19] MEDS: LACOSAMIDE 100 MG/10 ML UDC GT SCH ×2 (08:40→20:20)
[2022-10-19] MEDS: ACIDOPHILUS/BULGARICUS CHEW TAB GT SCH ×2 (09:00→21:00)
[2022-10-19] MEDS: METOCLOPRAMIDE HCL 10 MG TABLET GT SCH ×3 (09:00→18:59)
[2022-10-19] MEDS: REMEDY ESSENTIAL ZINC PASTE 113 GM TP SCH ×2 (09:00→21:00)
[2022-10-19] MEDS: TIZANIDINE HCL 4 MG TABLET GT SCH ×2 (09:00→18:59)
[2022-10-19] MEDS: HYDROGEN PEROXIDE 3% 118 ML BOTTLE TOP SCH ×2 (09:47→19:30)
[2022-10-19 13:04] VITALS: O2SAT 98
[2022-10-19 20:10] VITALS: O2SAT 99
[2022-10-19 21:00] VITALS: TEMP 97.6
[2022-10-19] MEDS: RIVAROXABAN 10 MG TABLET GT SCH (21:00)
[2022-10-19] MEDS: MELATONIN 5MG TABLET GT SCH (21:00)
[2022-10-20] MEDS: FAMOTIDINE 20 MG TABLET GT SCH ×2 (05:43→18:37)
[2022-10-20] MEDS: BISACODYL 10 MG SUPP.RECT RC PRN (06:30)
[2022-10-20 07:24] VITALS: TEMP 98.6
[2022-10-20] MEDS: levETIRAcetam 500 MG/5 ML LIQUID UDC GT SCH ×2 (08:05→20:12)
[2022-10-20] MEDS: METOCLOPRAMIDE HCL 10 MG TABLET GT SCH ×3 (08:06→18:37)
[2022-10-20] MEDS: ACIDOPHILUS/BULGARICUS CHEW TAB GT SCH ×2 (08:06→21:18)
[2022-10-20] MEDS: TIZANIDINE HCL 4 MG TABLET GT SCH ×2 (08:06→18:37)
[2022-10-20] MEDS: [UNRECOGNIZED DRUG - OTHER] TP SCH (08:07)
[2022-10-20] MEDS: REMEDY ESSENTIAL ZINC PASTE 113 GM TP SCH ×2 (08:07→21:27)
[2022-10-20] MEDS: HYDROGEN PEROXIDE 3% 118 ML BOTTLE TOP SCH ×2 (08:07→19:14)
[2022-10-20] MEDS: LACOSAMIDE 100 MG/10 ML UDC GT SCH ×2 (08:11→20:12)
[2022-10-20 10:00] VITALS: O2SAT 99
[2022-10-20] MEDS: VITAL AF 1.2 1,000 ML LIQUID GT PRN (11:07)
[2022-10-20] MEDS: RIVAROXABAN 10 MG TABLET GT SCH (21:17)
[2022-10-20] MEDS: MELATONIN 5MG TABLET GT SCH (21:20)
[2022-10-21] MEDS: FAMOTIDINE 20 MG TABLET GT SCH ×2 (05:44→18:59)
[2022-10-21] MEDS: LACOSAMIDE 100 MG/10 ML UDC GT SCH ×2 (08:00→20:11)
[2022-10-21] MEDS: levETIRAcetam 500 MG/5 ML LIQUID UDC GT SCH ×2 (08:00→20:08)
[2022-10-21 08:05] VITALS: TEMP 98.4
[2022-10-21 08:20] VITALS: O2SAT 98
[2022-10-21] MEDS: ACIDOPHILUS/BULGARICUS CHEW TAB GT SCH ×2 (09:56→20:09)
[2022-10-21] MEDS: METOCLOPRAMIDE HCL 10 MG TABLET GT SCH ×3 (09:57→18:59)
[2022-10-21] MEDS: REMEDY ESSENTIAL ZINC PASTE 113 GM TP SCH ×2 (09:57→21:12)
[2022-10-21] MEDS: HYDROGEN PEROXIDE 3% 118 ML BOTTLE TOP SCH ×2 (09:57→19:15)
[2022-10-21] MEDS: TIZANIDINE HCL 4 MG TABLET GT SCH ×2 (09:57→18:59)
[2022-10-21 14:55] VITALS: O2SAT 98
[2022-10-21 19:42] VITALS: O2SAT 99
[2022-10-21] MEDS: MELATONIN 5MG TABLET GT SCH (21:12)
[2022-10-21] MEDS: RIVAROXABAN 10 MG TABLET GT SCH (22:28)
[2022-10-22] MEDS: VITAL AF 1.2 1,000 ML LIQUID GT PRN (03:52)
[2022-10-22] MEDS: FAMOTIDINE 20 MG TABLET GT SCH ×2 (05:40→18:12)
[2022-10-22 07:15] VITALS: O2SAT 98
[2022-10-22 08:05] VITALS: TEMP 98.7
[2022-10-22] MEDS: LACOSAMIDE 100 MG/10 ML UDC GT SCH ×2 (08:26→19:59)
[2022-10-22] MEDS: levETIRAcetam 500 MG/5 ML LIQUID UDC GT SCH ×2 (08:26→19:59)
[2022-10-22] MEDS: ACIDOPHILUS/BULGARICUS CHEW TAB GT SCH ×2 (08:26→21:00)
[2022-10-22] MEDS: METOCLOPRAMIDE HCL 10 MG TABLET GT SCH ×3 (08:26→18:12)
[2022-10-22] MEDS: TIZANIDINE HCL 4 MG TABLET GT SCH ×2 (08:26→18:12)
[2022-10-22] MEDS: [UNRECOGNIZED DRUG - OTHER] TP SCH (08:27)
[2022-10-22] MEDS: REMEDY ESSENTIAL ZINC PASTE 113 GM TP SCH ×2 (08:27→21:00)
[2022-10-22] MEDS: HYDROGEN PEROXIDE 3% 118 ML BOTTLE TOP SCH ×2 (09:00→19:38)
[2022-10-22 20:38] VITALS: O2SAT 99
[2022-10-22] MEDS: RIVAROXABAN 10 MG TABLET GT SCH (21:00)
[2022-10-22] MEDS: MELATONIN 5MG TABLET GT SCH (21:00)
[2022-10-23] MEDS: FAMOTIDINE 20 MG TABLET GT SCH ×2 (05:25→18:37)
[2022-10-23 06:51] LABS: BASOPHILS % (AUTO) 0.4 % (0.0-2.0); EOSINOPHILS # (AUTO) 0.3 K/uL (0.0-0.7); EOSINOPHILS % (AUTO) 3.9 % (0.0-7.0); HEMOGLOBIN 13.1 g/dL (10.9-14.3); LYMPHOCYTES # (AUTO) 1.5 K/uL (0.8-4.8); LYMPHOCYTES % (AUTO) 18.9 % (20.5-51.5); MEAN CORPUSCULAR HGB CONC 34 g/dL (32.3-35.6); MEAN CORPUSCULAR VOLUME 89.5 fL (75.5-95.3); MONOCYTES # (AUTO) 0.5 K/uL (0.1-1.30); MONOCYTES % (AUTO) 5.8 % (0.0-11.0); NEUTROPHILS # (AUTO) 5.6 K/uL (1.8-8.9); PLATELET COUNT (AUTO) 295 K/uL (179-408); RED BLOOD CELL COUNT(AUTO) 4.36 MIL/uL (3.63-4.92); RED CELL DISTRIBUTION WIDTH 13.2 % (12.3-17.7); WHITE BLOOD COUNT (AUTO) 7.9 K/uL (3.8-11.8)
[2022-10-23 07:04] LABS: CREATININE 0.7 mg/dL (0.6-1.3); DIFFERENTIAL COMMENT 1; MAGNESIUM 2.2 mg/dL (1.8-2.4); PHOSPHOROUS 4.4 mg/dL (2.5-4.9); POTASSIUM 4.5 mmol/L (3.5-5.1)
[2022-10-23 07:18] LABS: CALCIUM 9.5 mg/dL (8.5-10.1)
[2022-10-23 07:42] VITALS: TEMP 97.5
[2022-10-23] MEDS: HYDROGEN PEROXIDE 3% 118 ML BOTTLE TOP SCH ×2 (08:13→19:18)
[2022-10-23] MEDS: LACOSAMIDE 100 MG/10 ML UDC GT SCH ×2 (08:53→20:09)
[2022-10-23] MEDS: levETIRAcetam 500 MG/5 ML LIQUID UDC GT SCH ×2 (08:53→20:09)
[2022-10-23] MEDS: REMEDY ESSENTIAL ZINC PASTE 113 GM TP SCH ×2 (08:54→20:09)
[2022-10-23] MEDS: ACIDOPHILUS/BULGARICUS CHEW TAB GT SCH ×2 (08:54→20:09)
[2022-10-23] MEDS: METOCLOPRAMIDE HCL 10 MG TABLET GT SCH ×3 (08:54→18:37)
[2022-10-23] MEDS: TIZANIDINE HCL 4 MG TABLET GT SCH ×2 (08:54→18:37)
[2022-10-23 14:32] VITALS: O2SAT 98
[2022-10-23] MEDS: VITAL AF 1.2 1,000 ML LIQUID GT PRN (17:15)
[2022-10-23 21:39] VITALS: O2SAT 99
[2022-10-23] MEDS: MELATONIN 5MG TABLET GT SCH (21:44)
[2022-10-23] MEDS: RIVAROXABAN 10 MG TABLET GT SCH (21:47)
[2022-10-24] MEDS: FAMOTIDINE 20 MG TABLET GT SCH ×2 (05:47→18:47)
[2022-10-24 07:19] VITALS: O2SAT 98
[2022-10-24 07:22] VITALS: TEMP 98.2
[2022-10-24] MEDS: ACIDOPHILUS/BULGARICUS CHEW TAB GT SCH ×2 (08:07→21:00)
[2022-10-24] MEDS: LACOSAMIDE 100 MG/10 ML UDC GT SCH ×2 (08:07→20:15)
[2022-10-24] MEDS: levETIRAcetam 500 MG/5 ML LIQUID UDC GT SCH ×2 (08:07→20:15)
[2022-10-24] MEDS: METOCLOPRAMIDE HCL 10 MG TABLET GT SCH ×3 (08:07→18:47)
[2022-10-24] MEDS: REMEDY ESSENTIAL ZINC PASTE 113 GM TP SCH ×2 (08:07→21:00)
[2022-10-24] MEDS: TIZANIDINE HCL 4 MG TABLET GT SCH ×2 (08:07→18:47)
[2022-10-24] MEDS: HYDROGEN PEROXIDE 3% 118 ML BOTTLE TOP SCH ×2 (09:00→20:37)
[2022-10-24] MEDS: [UNRECOGNIZED DRUG - OTHER] TP SCH (09:47)
[2022-10-24 18:00] VITALS: O2SAT 98
[2022-10-24 20:00] VITALS: TEMP 97.9
[2022-10-24 20:37] VITALS: O2SAT 99
[2022-10-24] MEDS: MELATONIN 5MG TABLET GT SCH (21:00)
[2022-10-24] MEDS: RIVAROXABAN 10 MG TABLET GT SCH (21:00)
[2022-10-25] MEDS: FAMOTIDINE 20 MG TABLET GT SCH ×2 (06:11→19:07)
[2022-10-25 07:21] VITALS: TEMP 98.8
[2022-10-25] MEDS: ACIDOPHILUS/BULGARICUS CHEW TAB GT SCH ×2 (08:14→21:00)
[2022-10-25] MEDS: levETIRAcetam 500 MG/5 ML LIQUID UDC GT SCH ×2 (08:14→20:02)
[2022-10-25] MEDS: HYDROGEN PEROXIDE 3% 118 ML BOTTLE TOP SCH ×2 (08:16→21:04)
[2022-10-25] MEDS: METOCLOPRAMIDE HCL 10 MG TABLET GT SCH ×3 (08:17→19:07)
[2022-10-25] MEDS: TIZANIDINE HCL 4 MG TABLET GT SCH ×2 (08:17→19:07)
[2022-10-25] MEDS: REMEDY ESSENTIAL ZINC PASTE 113 GM TP SCH ×2 (08:18→21:00)
[2022-10-25] MEDS: LACOSAMIDE 100 MG/10 ML UDC GT SCH ×2 (08:21→20:02)
[2022-10-25 12:33] VITALS: O2SAT 98
[2022-10-25 20:08] VITALS: TEMP 98.3
[2022-10-25] MEDS: RIVAROXABAN 10 MG TABLET GT SCH (21:00)
[2022-10-25] MEDS: MELATONIN 5MG TABLET GT SCH (21:00)
[2022-10-25 21:04] VITALS: O2SAT 99
[2022-10-26] MEDS: VITAL AF 1.2 1,000 ML LIQUID GT PRN (01:45)
[2022-10-26 05:30] VITALS: TEMP 98.6
[2022-10-26] MEDS: FAMOTIDINE 20 MG TABLET GT SCH ×2 (05:42→19:21)
[2022-10-26 07:20] VITALS: TEMP 98.6
[2022-10-26] MEDS: levETIRAcetam 500 MG/5 ML LIQUID UDC GT SCH ×2 (08:00→20:02)
[2022-10-26] MEDS: LACOSAMIDE 100 MG/10 ML UDC GT SCH ×2 (08:00→20:02)
[2022-10-26 08:15] VITALS: O2SAT 98
[2022-10-26] MEDS: HYDROGEN PEROXIDE 3% 118 ML BOTTLE TOP SCH ×2 (09:00→21:00)
[2022-10-26] MEDS: TIZANIDINE HCL 4 MG TABLET GT SCH ×2 (09:29→19:21)
[2022-10-26] MEDS: REMEDY ESSENTIAL ZINC PASTE 113 GM TP SCH ×2 (09:29→21:00)
[2022-10-26] MEDS: METOCLOPRAMIDE HCL 10 MG TABLET GT SCH ×3 (09:29→19:21)
[2022-10-26] MEDS: ACIDOPHILUS/BULGARICUS CHEW TAB GT SCH ×2 (09:29→21:00)
[2022-10-26] MEDS: [UNRECOGNIZED DRUG - OTHER] TP SCH (09:29)
[2022-10-26 14:17] VITALS: O2SAT 98
[2022-10-26 20:15] VITALS: O2SAT 99
[2022-10-26] MEDS: RIVAROXABAN 10 MG TABLET GT SCH (21:00)
[2022-10-26] MEDS: MELATONIN 5MG TABLET GT SCH (21:00)
[2022-10-27] MEDS: VITAL AF 1.2 1,000 ML LIQUID GT PRN (03:45)
[2022-10-27] MEDS: FAMOTIDINE 20 MG TABLET GT SCH ×2 (05:52→18:54)
[2022-10-27 07:27] VITALS: TEMP 98.2
[2022-10-27] MEDS: HYDROGEN PEROXIDE 3% 118 ML BOTTLE TOP SCH ×2 (07:46→20:28)
[2022-10-27] MEDS: levETIRAcetam 500 MG/5 ML LIQUID UDC GT SCH ×2 (08:00→19:55)
[2022-10-27] MEDS: LACOSAMIDE 100 MG/10 ML UDC GT SCH ×2 (08:00→19:55)
[2022-10-27] MEDS: ACIDOPHILUS/BULGARICUS CHEW TAB GT SCH ×2 (09:00→21:00)
[2022-10-27] MEDS: TIZANIDINE HCL 4 MG TABLET GT SCH ×2 (09:00→18:54)
[2022-10-27] MEDS: REMEDY ESSENTIAL ZINC PASTE 113 GM TP SCH ×2 (09:00→21:00)
[2022-10-27] MEDS: METOCLOPRAMIDE HCL 10 MG TABLET GT SCH ×3 (09:00→18:54)
[2022-10-27 10:50] VITALS: O2SAT 98
[2022-10-27 21:00] VITALS: O2SAT 99
[2022-10-27] MEDS: RIVAROXABAN 10 MG TABLET GT SCH (21:00)
[2022-10-27] MEDS: MELATONIN 5MG TABLET GT SCH (21:00)
[2022-10-28 00:55] VITALS: TEMP 98.2
[2022-10-28] MEDS: FAMOTIDINE 20 MG TABLET GT SCH ×2 (06:07→18:51)
[2022-10-28] MEDS: HYDROGEN PEROXIDE 3% 118 ML BOTTLE TOP SCH ×2 (07:32→19:22)
[2022-10-28 08:00] VITALS: TEMP 98.7
[2022-10-28] MEDS: ACIDOPHILUS/BULGARICUS CHEW TAB GT SCH ×2 (08:06→21:00)
[2022-10-28] MEDS: levETIRAcetam 500 MG/5 ML LIQUID UDC GT SCH ×2 (08:06→20:22)
[2022-10-28] MEDS: LACOSAMIDE 100 MG/10 ML UDC GT SCH ×2 (08:06→20:20)
[2022-10-28] MEDS: REMEDY ESSENTIAL ZINC PASTE 113 GM TP SCH ×2 (08:07→21:00)
[2022-10-28] MEDS: METOCLOPRAMIDE HCL 10 MG TABLET GT SCH ×3 (08:07→18:51)
[2022-10-28] MEDS: [UNRECOGNIZED DRUG - OTHER] TP SCH (08:07)
[2022-10-28] MEDS: TIZANIDINE HCL 4 MG TABLET GT SCH ×2 (08:07→18:51)
[2022-10-28 10:50] VITALS: O2SAT 98
[2022-10-28] MEDS: VITAL AF 1.2 1,000 ML LIQUID GT PRN (16:10)
[2022-10-28] MEDS: MELATONIN 5MG TABLET GT SCH (21:00)
[2022-10-28] MEDS: RIVAROXABAN 10 MG TABLET GT SCH (21:00)
[2022-10-28 22:30] VITALS: O2SAT 99
[2022-10-29 04:00] VITALS: TEMP 97.8
[2022-10-29] MEDS: FAMOTIDINE 20 MG TABLET GT SCH ×2 (06:12→18:56)
[2022-10-29] MEDS: HYDROGEN PEROXIDE 3% 118 ML BOTTLE TOP SCH ×2 (08:07→19:35)
[2022-10-29] MEDS: REMEDY ESSENTIAL ZINC PASTE 113 GM TP SCH ×2 (08:25→21:00)
[2022-10-29] MEDS: TIZANIDINE HCL 4 MG TABLET GT SCH ×2 (08:25→18:57)
[2022-10-29] MEDS: ACIDOPHILUS/BULGARICUS CHEW TAB GT SCH ×2 (08:25→21:00)
[2022-10-29] MEDS: LACOSAMIDE 100 MG/10 ML UDC GT SCH ×2 (08:25→20:11)
[2022-10-29] MEDS: METOCLOPRAMIDE HCL 10 MG TABLET GT SCH ×3 (08:25→18:57)
[2022-10-29] MEDS: levETIRAcetam 500 MG/5 ML LIQUID UDC GT SCH ×2 (08:25→20:11)
[2022-10-29 12:06] VITALS: TEMP 97.1
[2022-10-29 13:49] VITALS: O2SAT 98
[2022-10-29 19:35] VITALS: O2SAT 99
[2022-10-29] MEDS: RIVAROXABAN 10 MG TABLET GT SCH (21:00)
[2022-10-29] MEDS: MELATONIN 5MG TABLET GT SCH (21:00)
[2022-10-30] MEDS: FAMOTIDINE 20 MG TABLET GT SCH ×2 (06:46→18:44)
[2022-10-30 07:20] LABS: BASOPHILS % (AUTO) 0.5 % (0.0-2.0); EOSINOPHILS # (AUTO) 0.3 K/uL (0.0-0.7); EOSINOPHILS % (AUTO) 4.3 % (0.0-7.0); HEMATOCRIT 37.3 % (31.2-41.9); HEMOGLOBIN 12.6 g/dL (10.9-14.3); LYMPHOCYTES # (AUTO) 1.9 K/uL (0.8-4.8); LYMPHOCYTES % (AUTO) 28.2 % (20.5-51.5); MEAN CORPUSCULAR HEMOGLOBIN 29.9 uug (24.7-32.8); MEAN CORPUSCULAR HGB CONC 34 g/dL (32.3-35.6); MEAN CORPUSCULAR VOLUME 88.5 fL (75.5-95.3); MONOCYTES # (AUTO) 0.5 K/uL (0.1-1.30); MONOCYTES % (AUTO) 7.1 % (0.0-11.0); NEUTROPHILS % (AUTO) 59.9 % (38.5-71.5); PLATELET COUNT (AUTO) 279 K/uL (179-408); RED BLOOD CELL COUNT(AUTO) 4.21 MIL/uL (3.63-4.92); RED CELL DISTRIBUTION WIDTH 12.7 % (12.3-17.7); WHITE BLOOD COUNT (AUTO) 6.7 K/uL (3.8-11.8)
[2022-10-30 07:34] LABS: DIFFERENTIAL COMMENT 1
[2022-10-30 07:42] LABS: CALCIUM 9.3 mg/dL (8.5-10.1); CREATININE 0.6 mg/dL (0.6-1.3); MAGNESIUM 2.2 mg/dL (1.8-2.4); PHOSPHOROUS 4.2 mg/dL (2.5-4.9); POTASSIUM 4.3 mmol/L (3.5-5.1)
[2022-10-30] MEDS: LACOSAMIDE 100 MG/10 ML UDC GT SCH ×2 (08:00→20:00)
[2022-10-30] MEDS: levETIRAcetam 500 MG/5 ML LIQUID UDC GT SCH ×2 (08:00→20:00)
[2022-10-30] MEDS: TIZANIDINE HCL 4 MG TABLET GT SCH ×2 (09:00→18:44)
[2022-10-30] MEDS: REMEDY ESSENTIAL ZINC PASTE 113 GM TP SCH ×2 (09:00→21:00)
[2022-10-30] MEDS: HYDROGEN PEROXIDE 3% 118 ML BOTTLE TOP SCH ×2 (09:00→21:00)
[2022-10-30] MEDS: [UNRECOGNIZED DRUG - OTHER] TP SCH (09:00)
[2022-10-30] MEDS: METOCLOPRAMIDE HCL 10 MG TABLET GT SCH ×3 (09:00→18:44)
[2022-10-30] MEDS: ACIDOPHILUS/BULGARICUS CHEW TAB GT SCH ×2 (09:00→21:00)
[2022-10-30 09:05] VITALS: TEMP 98.6
[2022-10-30 09:10] VITALS: TEMP 98.6
[2022-10-30 10:30] VITALS: O2SAT 97
[2022-10-30] MEDS: LORAZEPAM 2 MG/1 ML VIAL IM PRN (17:11)
[2022-10-30 20:00] VITALS: TEMP 98.5
[2022-10-30 20:40] VITALS: O2SAT 99
[2022-10-30] MEDS: MELATONIN 5MG TABLET GT SCH (21:00)
[2022-10-30] MEDS: RIVAROXABAN 10 MG TABLET GT SCH (21:00)
[2022-10-31] MEDS: VITAL AF 1.2 1,000 ML LIQUID GT PRN (05:00)
[2022-10-31] MEDS: FAMOTIDINE 20 MG TABLET GT SCH ×2 (05:44→18:45)
[2022-10-31 07:26] VITALS: TEMP 98
[2022-10-31 08:00] VITALS: O2SAT 98
[2022-10-31 08:05] VITALS: O2SAT 98
[2022-10-31] MEDS: HYDROGEN PEROXIDE 3% 118 ML BOTTLE TOP SCH ×2 (08:05→19:19)
[2022-10-31] MEDS: ACIDOPHILUS/BULGARICUS CHEW TAB GT SCH ×2 (08:15→21:00)
[2022-10-31] MEDS: LACOSAMIDE 100 MG/10 ML UDC GT SCH ×2 (08:15→20:03)
[2022-10-31] MEDS: levETIRAcetam 500 MG/5 ML LIQUID UDC GT SCH ×2 (08:15→20:03)
[2022-10-31] MEDS: TIZANIDINE HCL 4 MG TABLET GT SCH ×2 (08:16→18:45)
[2022-10-31] MEDS: METOCLOPRAMIDE HCL 10 MG TABLET GT SCH ×3 (08:16→18:45)
[2022-10-31] MEDS: REMEDY ESSENTIAL ZINC PASTE 113 GM TP SCH ×2 (08:17→21:00)
[2022-10-31 16:04] VITALS: O2SAT 98
[2022-10-31] MEDS: BISACODYL 10 MG SUPP.RECT RC PRN (18:45)
[2022-10-31 19:45] VITALS: O2SAT 99
[2022-10-31 20:00] VITALS: TEMP 97.8
[2022-10-31] MEDS: RIVAROXABAN 10 MG TABLET GT SCH (21:00)
[2022-10-31] MEDS: MELATONIN 5MG TABLET GT SCH (21:00)
[2022-11-01] MEDS: FAMOTIDINE 20 MG TABLET GT SCH ×2 (05:41→18:49)
[2022-11-01] MEDS: VITAL AF 1.2 1,000 ML LIQUID GT PRN (05:41)
[2022-11-01 07:21] VITALS: TEMP 98.6
[2022-11-01] MEDS: LACOSAMIDE 100 MG/10 ML UDC GT SCH ×2 (08:00→20:00)
[2022-11-01] MEDS: levETIRAcetam 500 MG/5 ML LIQUID UDC GT SCH ×2 (08:00→20:00)
[2022-11-01] MEDS: HYDROGEN PEROXIDE 3% 118 ML BOTTLE TOP SCH ×2 (09:00→20:08)
[2022-11-01] MEDS: ACIDOPHILUS/BULGARICUS CHEW TAB GT SCH ×2 (09:01→21:00)
[2022-11-01] MEDS: METOCLOPRAMIDE HCL 10 MG TABLET GT SCH ×3 (09:02→18:49)
[2022-11-01] MEDS: TIZANIDINE HCL 4 MG TABLET GT SCH ×2 (09:02→18:50)
[2022-11-01] MEDS: [UNRECOGNIZED DRUG - OTHER] TP SCH (09:02)
[2022-11-01] MEDS: REMEDY ESSENTIAL ZINC PASTE 113 GM TP SCH ×2 (09:02→21:00)
[2022-11-01] MEDS: MELATONIN 5MG TABLET GT SCH (21:00)
[2022-11-01] MEDS: RIVAROXABAN 10 MG TABLET GT SCH (21:00)
[2022-11-01 21:20] VITALS: O2SAT 99
[2022-11-02 04:00] VITALS: TEMP 98.1
[2022-11-02] MEDS: FAMOTIDINE 20 MG TABLET GT SCH ×2 (06:06→18:56)
[2022-11-02 07:30] VITALS: TEMP 98.5
[2022-11-02] MEDS: LACOSAMIDE 100 MG/10 ML UDC GT SCH ×2 (08:27→20:04)
[2022-11-02] MEDS: ACIDOPHILUS/BULGARICUS CHEW TAB GT SCH ×2 (08:28→21:00)
[2022-11-02] MEDS: METOCLOPRAMIDE HCL 10 MG TABLET GT SCH ×3 (08:28→18:56)
[2022-11-02] MEDS: levETIRAcetam 500 MG/5 ML LIQUID UDC GT SCH ×2 (08:28→20:04)
[2022-11-02] MEDS: TIZANIDINE HCL 4 MG TABLET GT SCH ×2 (08:28→18:56)
[2022-11-02] MEDS: REMEDY ESSENTIAL ZINC PASTE 113 GM TP SCH ×2 (08:28→21:00)
[2022-11-02] MEDS: NEOMY/BACITRA/POLYMYXIN B OINT UD PACKET TP SCH ×2 (08:29→17:00)
[2022-11-02 08:30] VITALS: O2SAT 98
[2022-11-02] MEDS: HYDROGEN PEROXIDE 3% 118 ML BOTTLE TOP SCH ×2 (09:33→20:29)
[2022-11-02 20:00] VITALS: TEMP 97.9
[2022-11-02 20:29] VITALS: O2SAT 99
[2022-11-02] MEDS: RIVAROXABAN 10 MG TABLET GT SCH (21:00)
[2022-11-02] MEDS: MELATONIN 5MG TABLET GT SCH (21:00)
[2022-11-03] MEDS: FAMOTIDINE 20 MG TABLET GT SCH ×2 (06:18→18:52)
[2022-11-03 07:25] VITALS: TEMP 98.4
[2022-11-03 08:00] VITALS: O2SAT 98
[2022-11-03] MEDS: LACOSAMIDE 100 MG/10 ML UDC GT SCH ×2 (08:00→20:30)
[2022-11-03] MEDS: levETIRAcetam 500 MG/5 ML LIQUID UDC GT SCH ×2 (08:00→20:30)
[2022-11-03] MEDS: METOCLOPRAMIDE HCL 10 MG TABLET GT SCH ×3 (09:00→18:52)
[2022-11-03] MEDS: TIZANIDINE HCL 4 MG TABLET GT SCH ×2 (09:00→18:52)
[2022-11-03] MEDS: REMEDY ESSENTIAL ZINC PASTE 113 GM TP SCH ×2 (09:00→21:36)
[2022-11-03] MEDS: [UNRECOGNIZED DRUG - OTHER] TP SCH (09:00)
[2022-11-03] MEDS: NEOMY/BACITRA/POLYMYXIN B OINT UD PACKET TP SCH ×2 (09:00→17:00)
[2022-11-03] MEDS: ACIDOPHILUS/BULGARICUS CHEW TAB GT SCH ×2 (09:00→21:28)
[2022-11-03] MEDS: HYDROGEN PEROXIDE 3% 118 ML BOTTLE TOP SCH ×2 (09:00→19:20)
[2022-11-03 20:20] VITALS: O2SAT 99
[2022-11-03] MEDS: MELATONIN 5MG TABLET GT SCH (21:28)
[2022-11-03] MEDS: RIVAROXABAN 10 MG TABLET GT SCH (21:28)
[2022-11-03 22:00] VITALS: TEMP 98
[2022-11-04] MEDS: FAMOTIDINE 20 MG TABLET GT SCH ×2 (05:29→19:00)
[2022-11-04] MEDS: VITAL AF 1.2 1,000 ML LIQUID GT PRN (05:30)
[2022-11-04 07:05] VITALS: O2SAT 98
[2022-11-04 07:56] VITALS: TEMP 97.3
[2022-11-04] MEDS: levETIRAcetam 500 MG/5 ML LIQUID UDC GT SCH ×2 (08:29→20:00)
[2022-11-04] MEDS: ACIDOPHILUS/BULGARICUS CHEW TAB GT SCH ×2 (08:31→21:00)
[2022-11-04] MEDS: LACOSAMIDE 100 MG/10 ML UDC GT SCH ×2 (08:31→20:00)
[2022-11-04] MEDS: NEOMY/BACITRA/POLYMYXIN B OINT UD PACKET TP SCH ×2 (08:33→16:28)
[2022-11-04] MEDS: METOCLOPRAMIDE HCL 10 MG TABLET GT SCH ×3 (08:33→19:00)
[2022-11-04] MEDS: REMEDY ESSENTIAL ZINC PASTE 113 GM TP SCH ×2 (08:33→21:00)
[2022-11-04] MEDS: TIZANIDINE HCL 4 MG TABLET GT SCH ×2 (08:33→19:00)
[2022-11-04] MEDS: HYDROGEN PEROXIDE 3% 118 ML BOTTLE TOP SCH ×3 (09:02→20:42)
[2022-11-04 14:33] VITALS: O2SAT 98
[2022-11-04] MEDS: BISACODYL 10 MG SUPP.RECT RC PRN (17:04)
[2022-11-04] MEDS: RIVAROXABAN 10 MG TABLET GT SCH (21:00)
[2022-11-04] MEDS: MELATONIN 5MG TABLET GT SCH (21:00)
[2022-11-04 21:10] VITALS: O2SAT 99
[2022-11-05] MEDS: FAMOTIDINE 20 MG TABLET GT SCH ×2 (06:00→19:19)
[2022-11-05 08:00] VITALS: TEMP 98.2
[2022-11-05 08:07] VITALS: TEMP 98.6
[2022-11-05] MEDS: levETIRAcetam 500 MG/5 ML LIQUID UDC GT SCH ×2 (08:29→20:22)
[2022-11-05] MEDS: ACIDOPHILUS/BULGARICUS CHEW TAB GT SCH ×2 (08:30→21:00)
[2022-11-05] MEDS: LACOSAMIDE 100 MG/10 ML UDC GT SCH ×2 (08:30→20:22)
[2022-11-05] MEDS: METOCLOPRAMIDE HCL 10 MG TABLET GT SCH ×3 (08:30→19:19)
[2022-11-05] MEDS: TIZANIDINE HCL 4 MG TABLET GT SCH ×2 (08:31→19:20)
[2022-11-05] MEDS: [UNRECOGNIZED DRUG - OTHER] TP SCH (08:31)
[2022-11-05] MEDS: NEOMY/BACITRA/POLYMYXIN B OINT UD PACKET TP SCH ×2 (08:31→17:01)
[2022-11-05] MEDS: REMEDY ESSENTIAL ZINC PASTE 113 GM TP SCH ×2 (08:31→21:00)
[2022-11-05 08:50] VITALS: O2SAT 99
[2022-11-05] MEDS: HYDROGEN PEROXIDE 3% 118 ML BOTTLE TOP SCH ×2 (09:00→19:17)
[2022-11-05 11:27] VITALS: O2SAT 98
[2022-11-05] MEDS: VITAL AF 1.2 1,000 ML LIQUID GT PRN (11:32)
[2022-11-05 20:00] VITALS: O2SAT 99
[2022-11-05] MEDS: MELATONIN 5MG TABLET GT SCH (21:00)
[2022-11-05] MEDS: RIVAROXABAN 10 MG TABLET GT SCH (21:00)
[2022-11-06 05:00] VITALS: TEMP 98.2
[2022-11-06] MEDS: FAMOTIDINE 20 MG TABLET GT SCH ×2 (06:12→18:40)
[2022-11-06] MEDS: HYDROGEN PEROXIDE 3% 118 ML BOTTLE TOP SCH ×2 (08:09→19:34)
[2022-11-06 08:29] VITALS: TEMP 96.8
[2022-11-06] MEDS: levETIRAcetam 500 MG/5 ML LIQUID UDC GT SCH ×2 (08:55→20:14)
[2022-11-06] MEDS: ACIDOPHILUS/BULGARICUS CHEW TAB GT SCH ×2 (08:55→21:00)
[2022-11-06] MEDS: METOCLOPRAMIDE HCL 10 MG TABLET GT SCH ×3 (08:55→18:40)
[2022-11-06] MEDS: LACOSAMIDE 100 MG/10 ML UDC GT SCH ×2 (08:55→20:14)
[2022-11-06] MEDS: TIZANIDINE HCL 4 MG TABLET GT SCH ×2 (08:56→18:40)
[2022-11-06] MEDS: REMEDY ESSENTIAL ZINC PASTE 113 GM TP SCH ×2 (08:56→21:00)
[2022-11-06] MEDS: NEOMY/BACITRA/POLYMYXIN B OINT UD PACKET TP SCH ×2 (08:57→17:00)
[2022-11-06 10:50] VITALS: O2SAT 98
[2022-11-06] MEDS: VITAL AF 1.2 1,000 ML LIQUID GT PRN (14:18)
[2022-11-06] MEDS: RIVAROXABAN 10 MG TABLET GT SCH (21:00)
[2022-11-06] MEDS: MELATONIN 5MG TABLET GT SCH (21:00)
[2022-11-06 23:00] VITALS: O2SAT 99
[2022-11-07 05:00] VITALS: TEMP 98.1
[2022-11-07] MEDS: FAMOTIDINE 20 MG TABLET GT SCH ×2 (05:48→17:35)
[2022-11-07 07:17] VITALS: TEMP 98
[2022-11-07] MEDS: LACOSAMIDE 100 MG/10 ML UDC GT SCH ×2 (08:00→20:08)
[2022-11-07] MEDS: levETIRAcetam 500 MG/5 ML LIQUID UDC GT SCH ×2 (08:00→20:08)
[2022-11-07] MEDS: ACIDOPHILUS/BULGARICUS CHEW TAB GT SCH ×2 (09:00→21:00)
[2022-11-07] MEDS: HYDROGEN PEROXIDE 3% 118 ML BOTTLE TOP SCH ×2 (09:00→21:00)
[2022-11-07] MEDS: TIZANIDINE HCL 4 MG TABLET GT SCH ×2 (09:00→17:35)
[2022-11-07] MEDS: METOCLOPRAMIDE HCL 10 MG TABLET GT SCH ×3 (09:00→17:35)
[2022-11-07] MEDS: [UNRECOGNIZED DRUG - OTHER] TP SCH (09:01)
[2022-11-07] MEDS: REMEDY ESSENTIAL ZINC PASTE 113 GM TP SCH ×2 (09:01→21:00)
[2022-11-07] MEDS: NEOMY/BACITRA/POLYMYXIN B OINT UD PACKET TP SCH ×2 (09:01→17:35)
[2022-11-07 10:30] VITALS: O2SAT 99
[2022-11-07 20:00] VITALS: TEMP 98.5
[2022-11-07] MEDS: RIVAROXABAN 10 MG TABLET GT SCH (21:00)
[2022-11-07] MEDS: MELATONIN 5MG TABLET GT SCH (21:00)
[2022-11-08] MEDS: FAMOTIDINE 20 MG TABLET GT SCH ×2 (05:39→18:45)
[2022-11-08 07:16] VITALS: TEMP 97.8
[2022-11-08] MEDS: LACOSAMIDE 100 MG/10 ML UDC GT SCH ×2 (08:02→20:25)
[2022-11-08] MEDS: levETIRAcetam 500 MG/5 ML LIQUID UDC GT SCH ×2 (08:02→20:25)
[2022-11-08] MEDS: METOCLOPRAMIDE HCL 10 MG TABLET GT SCH ×3 (08:03→18:45)
[2022-11-08] MEDS: TIZANIDINE HCL 4 MG TABLET GT SCH ×2 (08:03→18:45)
[2022-11-08] MEDS: ACIDOPHILUS/BULGARICUS CHEW TAB GT SCH ×2 (08:03→20:25)
[2022-11-08] MEDS: REMEDY ESSENTIAL ZINC PASTE 113 GM TP SCH ×2 (08:04→20:26)
[2022-11-08] MEDS: HYDROGEN PEROXIDE 3% 118 ML BOTTLE TOP SCH ×2 (08:10→20:25)
[2022-11-08] MEDS: NEOMY/BACITRA/POLYMYXIN B OINT UD PACKET TP SCH ×2 (09:00→17:10)
[2022-11-08 10:50] VITALS: O2SAT 99
[2022-11-08 20:25] VITALS: O2SAT 99
[2022-11-08] MEDS: MELATONIN 5MG TABLET GT SCH (20:25)
[2022-11-08] MEDS: RIVAROXABAN 10 MG TABLET GT SCH (20:26)
[2022-11-09] MEDS: FAMOTIDINE 20 MG TABLET GT SCH ×2 (06:37→18:40)
[2022-11-09] MEDS: HYDROGEN PEROXIDE 3% 118 ML BOTTLE TOP SCH ×2 (07:10→19:18)
[2022-11-09] MEDS: levETIRAcetam 500 MG/5 ML LIQUID UDC GT SCH ×2 (08:42→20:18)
[2022-11-09] MEDS: ACIDOPHILUS/BULGARICUS CHEW TAB GT SCH ×2 (08:43→21:00)
[2022-11-09] MEDS: LACOSAMIDE 100 MG/10 ML UDC GT SCH ×2 (08:43→20:18)
[2022-11-09] MEDS: METOCLOPRAMIDE HCL 10 MG TABLET GT SCH ×3 (08:44→18:40)
[2022-11-09] MEDS: [UNRECOGNIZED DRUG - OTHER] TP SCH (08:45)
[2022-11-09] MEDS: REMEDY ESSENTIAL ZINC PASTE 113 GM TP SCH ×2 (08:45→21:00)
[2022-11-09] MEDS: TIZANIDINE HCL 4 MG TABLET GT SCH ×2 (08:45→18:40)
[2022-11-09] MEDS: NEOMY/BACITRA/POLYMYXIN B OINT UD PACKET TP SCH ×2 (08:45→16:30)
[2022-11-09 10:30] VITALS: O2SAT 99
[2022-11-09] MEDS: VITAL AF 1.2 1,000 ML LIQUID GT PRN (11:30)
[2022-11-09 20:08] VITALS: TEMP 97.4
[2022-11-09 20:30] VITALS: O2SAT 99
[2022-11-09] MEDS: MELATONIN 5MG TABLET GT SCH (21:00)
[2022-11-09] MEDS: RIVAROXABAN 10 MG TABLET GT SCH (21:00)
[2022-11-10] MEDS: FAMOTIDINE 20 MG TABLET GT SCH ×2 (05:13→18:47)
[2022-11-10 07:33] VITALS: TEMP 98.3
[2022-11-10] MEDS: LACOSAMIDE 100 MG/10 ML UDC GT SCH ×2 (09:00→20:17)
[2022-11-10] MEDS: levETIRAcetam 500 MG/5 ML LIQUID UDC GT SCH ×2 (09:00→20:17)
[2022-11-10] MEDS: REMEDY ESSENTIAL ZINC PASTE 113 GM TP SCH ×2 (09:04→21:37)
[2022-11-10] MEDS: TIZANIDINE HCL 4 MG TABLET GT SCH ×2 (09:04→18:47)
[2022-11-10] MEDS: METOCLOPRAMIDE HCL 10 MG TABLET GT SCH ×3 (09:04→18:47)
[2022-11-10] MEDS: NEOMY/BACITRA/POLYMYXIN B OINT UD PACKET TP SCH ×2 (09:04→17:00)
[2022-11-10] MEDS: ACIDOPHILUS/BULGARICUS CHEW TAB GT SCH ×2 (09:04→21:36)
[2022-11-10 09:05] VITALS: O2SAT 99
[2022-11-10] MEDS: HYDROGEN PEROXIDE 3% 118 ML BOTTLE TOP SCH ×2 (09:05→19:07)
[2022-11-10] MEDS: MAGNESIUM HYDROXIDE 30 ML LIQUID UDC GT PRN (09:08)
[2022-11-10] MEDS: VITAL AF 1.2 1,000 ML LIQUID GT PRN (13:51)
[2022-11-10] MEDS: BISACODYL 10 MG SUPP.RECT RC PRN (15:00)
[2022-11-10 20:20] VITALS: O2SAT 99
[2022-11-10 20:35] VITALS: TEMP 98.2
[2022-11-10] MEDS: MELATONIN 5MG TABLET GT SCH (21:36)
[2022-11-10] MEDS: RIVAROXABAN 10 MG TABLET GT SCH (21:37)
[2022-11-11] MEDS: FAMOTIDINE 20 MG TABLET GT SCH ×2 (05:42→18:25)
[2022-11-11 07:57] VITALS: TEMP 98.4
[2022-11-11 08:40] VITALS: O2SAT 99
[2022-11-11] MEDS: HYDROGEN PEROXIDE 3% 118 ML BOTTLE TOP SCH ×2 (08:40→21:23)
[2022-11-11] MEDS: METOCLOPRAMIDE HCL 10 MG TABLET GT SCH ×3 (08:56→18:25)
[2022-11-11] MEDS: LACOSAMIDE 100 MG/10 ML UDC GT SCH ×2 (08:56→20:11)
[2022-11-11] MEDS: levETIRAcetam 500 MG/5 ML LIQUID UDC GT SCH ×2 (08:56→20:11)
[2022-11-11] MEDS: ACIDOPHILUS/BULGARICUS CHEW TAB GT SCH ×2 (08:56→21:00)
[2022-11-11] MEDS: TIZANIDINE HCL 4 MG TABLET GT SCH ×2 (08:56→18:25)
[2022-11-11] MEDS: [UNRECOGNIZED DRUG - OTHER] TP SCH (08:57)
[2022-11-11] MEDS: REMEDY ESSENTIAL ZINC PASTE 113 GM TP SCH ×2 (08:57→21:00)
[2022-11-11] MEDS: NEOMY/BACITRA/POLYMYXIN B OINT UD PACKET TP SCH ×2 (08:57→17:38)
[2022-11-11 20:35] VITALS: TEMP 98.2
[2022-11-11] MEDS: RIVAROXABAN 10 MG TABLET GT SCH (21:00)
[2022-11-11] MEDS: MELATONIN 5MG TABLET GT SCH (21:00)
[2022-11-11 21:10] VITALS: O2SAT 99
[2022-11-12] MEDS: FAMOTIDINE 20 MG TABLET GT SCH ×2 (05:36→19:00)
[2022-11-12] MEDS: HYDROGEN PEROXIDE 3% 118 ML BOTTLE TOP SCH ×2 (07:25→21:00)
[2022-11-12] MEDS: levETIRAcetam 500 MG/5 ML LIQUID UDC GT SCH ×2 (08:18→20:14)
[2022-11-12] MEDS: LACOSAMIDE 100 MG/10 ML UDC GT SCH ×2 (08:18→20:15)
[2022-11-12 08:19] VITALS: TEMP 98.6
[2022-11-12] MEDS: REMEDY ESSENTIAL ZINC PASTE 113 GM TP SCH ×2 (08:19→21:00)
[2022-11-12] MEDS: TIZANIDINE HCL 4 MG TABLET GT SCH ×2 (08:19→19:00)
[2022-11-12] MEDS: METOCLOPRAMIDE HCL 10 MG TABLET GT SCH ×3 (08:19→19:00)
[2022-11-12] MEDS: ACIDOPHILUS/BULGARICUS CHEW TAB GT SCH ×2 (08:19→21:00)
[2022-11-12 10:50] VITALS: O2SAT 99
[2022-11-12 20:00] VITALS: TEMP 98
[2022-11-12] MEDS: MELATONIN 5MG TABLET GT SCH (21:00)
[2022-11-12] MEDS: RIVAROXABAN 10 MG TABLET GT SCH (21:00)
[2022-11-12 21:30] VITALS: O2SAT 99
[2022-11-13] MEDS: VITAL AF 1.2 1,000 ML LIQUID GT PRN (04:59)
[2022-11-13] MEDS: FAMOTIDINE 20 MG TABLET GT SCH ×2 (05:10→18:44)
[2022-11-13 07:58] VITALS: TEMP 98.5
[2022-11-13] MEDS: levETIRAcetam 500 MG/5 ML LIQUID UDC GT SCH ×2 (08:07→20:12)
[2022-11-13] MEDS: ACIDOPHILUS/BULGARICUS CHEW TAB GT SCH ×2 (08:08→21:00)
[2022-11-13] MEDS: METOCLOPRAMIDE HCL 10 MG TABLET GT SCH ×3 (08:10→18:44)
[2022-11-13] MEDS: TIZANIDINE HCL 4 MG TABLET GT SCH ×2 (08:11→18:44)
[2022-11-13] MEDS: REMEDY ESSENTIAL ZINC PASTE 113 GM TP SCH ×2 (08:13→21:00)
[2022-11-13] MEDS: [UNRECOGNIZED DRUG - OTHER] TP SCH (08:13)
[2022-11-13] MEDS: LACOSAMIDE 100 MG/10 ML UDC GT SCH ×2 (08:19→20:12)
[2022-11-13] MEDS: HYDROGEN PEROXIDE 3% 118 ML BOTTLE TOP SCH ×2 (08:20→21:00)
[2022-11-13 13:27] VITALS: O2SAT 98
[2022-11-13 20:20] VITALS: O2SAT 99
[2022-11-13] MEDS: MELATONIN 5MG TABLET GT SCH (21:00)
[2022-11-13] MEDS: RIVAROXABAN 10 MG TABLET GT SCH (21:00)
[2022-11-14 05:00] VITALS: TEMP 98.4
[2022-11-14] MEDS: FAMOTIDINE 20 MG TABLET GT SCH ×2 (05:50→18:51)
[2022-11-14 07:20] VITALS: TEMP 98.7
[2022-11-14] MEDS: TIZANIDINE HCL 4 MG TABLET GT SCH ×2 (08:32→18:51)
[2022-11-14] MEDS: ACIDOPHILUS/BULGARICUS CHEW TAB GT SCH ×2 (08:32→21:00)
[2022-11-14] MEDS: METOCLOPRAMIDE HCL 10 MG TABLET GT SCH ×3 (08:32→18:51)
[2022-11-14] MEDS: levETIRAcetam 500 MG/5 ML LIQUID UDC GT SCH ×2 (08:32→20:15)
[2022-11-14] MEDS: LACOSAMIDE 100 MG/10 ML UDC GT SCH ×2 (08:32→20:15)
[2022-11-14] MEDS: REMEDY ESSENTIAL ZINC PASTE 113 GM TP SCH ×2 (08:33→21:00)
[2022-11-14] MEDS: HYDROGEN PEROXIDE 3% 118 ML BOTTLE TOP SCH ×2 (09:00→20:35)
[2022-11-14 10:44] VITALS: O2SAT 98
[2022-11-14 15:43] VITALS: O2SAT 98
[2022-11-14] MEDS: VITAL AF 1.2 1,000 ML LIQUID GT PRN (17:40)
[2022-11-14 20:00] VITALS: TEMP 98.5
[2022-11-14 20:35] VITALS: O2SAT 99
[2022-11-14] MEDS: MELATONIN 5MG TABLET GT SCH (21:00)
[2022-11-14] MEDS: RIVAROXABAN 10 MG TABLET GT SCH (21:00)
[2022-11-15] MEDS: FAMOTIDINE 20 MG TABLET GT SCH ×2 (05:58→18:43)
[2022-11-15 07:19] VITALS: TEMP 97.8
[2022-11-15] MEDS: BISACODYL 10 MG SUPP.RECT RC PRN (07:33)
[2022-11-15] MEDS: levETIRAcetam 500 MG/5 ML LIQUID UDC GT SCH ×2 (08:20→20:00)
[2022-11-15] MEDS: [UNRECOGNIZED DRUG - OTHER] TP SCH (08:20)
[2022-11-15] MEDS: ACIDOPHILUS/BULGARICUS CHEW TAB GT SCH ×2 (08:20→21:00)
[2022-11-15] MEDS: METOCLOPRAMIDE HCL 10 MG TABLET GT SCH ×3 (08:20→18:43)
[2022-11-15] MEDS: LACOSAMIDE 100 MG/10 ML UDC GT SCH ×2 (08:20→20:00)
[2022-11-15] MEDS: TIZANIDINE HCL 4 MG TABLET GT SCH ×2 (08:20→18:43)
[2022-11-15] MEDS: REMEDY ESSENTIAL ZINC PASTE 113 GM TP SCH ×2 (08:21→21:00)
[2022-11-15] MEDS: HYDROGEN PEROXIDE 3% 118 ML BOTTLE TOP SCH ×2 (08:29→19:17)
[2022-11-15 13:09] VITALS: O2SAT 98
[2022-11-15] MEDS: VITAL AF 1.2 1,000 ML LIQUID GT PRN (19:58)
[2022-11-15 20:09] VITALS: TEMP 98.2
[2022-11-15] MEDS: MELATONIN 5MG TABLET GT SCH (21:00)
[2022-11-15] MEDS: RIVAROXABAN 10 MG TABLET GT SCH (21:00)
[2022-11-15 21:55] VITALS: O2SAT 99
[2022-11-16] MEDS: FAMOTIDINE 20 MG TABLET GT SCH ×2 (05:56→18:43)
[2022-11-16 07:18] VITALS: TEMP 98.2
[2022-11-16 07:21] VITALS: O2SAT 98
[2022-11-16] MEDS: levETIRAcetam 500 MG/5 ML LIQUID UDC GT SCH ×2 (08:12→20:10)
[2022-11-16] MEDS: ACIDOPHILUS/BULGARICUS CHEW TAB GT SCH ×2 (08:13→21:49)
[2022-11-16] MEDS: REMEDY ESSENTIAL ZINC PASTE 113 GM TP SCH ×2 (08:14→21:51)
[2022-11-16] MEDS: METOCLOPRAMIDE HCL 10 MG TABLET GT SCH ×3 (08:14→18:43)
[2022-11-16] MEDS: TIZANIDINE HCL 4 MG TABLET GT SCH ×2 (08:14→18:44)
[2022-11-16] MEDS: LACOSAMIDE 100 MG/10 ML UDC GT SCH ×2 (08:15→20:10)
[2022-11-16] MEDS: HYDROGEN PEROXIDE 3% 118 ML BOTTLE TOP SCH ×2 (09:00→21:00)
[2022-11-16 14:17] VITALS: O2SAT 98
[2022-11-16 20:38] VITALS: TEMP 97.8
[2022-11-16 21:30] VITALS: O2SAT 99
[2022-11-16] MEDS: MELATONIN 5MG TABLET GT SCH (21:49)
[2022-11-16] MEDS: RIVAROXABAN 10 MG TABLET GT SCH (21:50)
[2022-11-17] MEDS: FAMOTIDINE 20 MG TABLET GT SCH ×2 (05:37→18:43)
[2022-11-17 07:35] VITALS: TEMP 98.2
[2022-11-17] MEDS: levETIRAcetam 500 MG/5 ML LIQUID UDC GT SCH ×2 (08:01→20:21)
[2022-11-17] MEDS: LACOSAMIDE 100 MG/10 ML UDC GT SCH ×2 (08:04→20:21)
[2022-11-17] MEDS: ACIDOPHILUS/BULGARICUS CHEW TAB GT SCH ×2 (08:05→21:08)
[2022-11-17] MEDS: TIZANIDINE HCL 4 MG TABLET GT SCH ×2 (08:06→18:43)
[2022-11-17] MEDS: [UNRECOGNIZED DRUG - OTHER] TP SCH (08:06)
[2022-11-17] MEDS: REMEDY ESSENTIAL ZINC PASTE 113 GM TP SCH ×2 (08:06→21:10)
[2022-11-17] MEDS: METOCLOPRAMIDE HCL 10 MG TABLET GT SCH ×3 (08:06→18:43)
[2022-11-17] MEDS: HYDROGEN PEROXIDE 3% 118 ML BOTTLE TOP SCH ×2 (09:00→19:04)
[2022-11-17 10:50] VITALS: O2SAT 98
[2022-11-17] MEDS: VITAL AF 1.2 1,000 ML LIQUID GT PRN (12:27)
[2022-11-17 20:10] VITALS: O2SAT 99
[2022-11-17] MEDS: RIVAROXABAN 10 MG TABLET GT SCH (21:00)
[2022-11-17] MEDS: MELATONIN 5MG TABLET GT SCH (21:08)
[2022-11-18] MEDS: FAMOTIDINE 20 MG TABLET GT SCH ×2 (05:54→18:55)
[2022-11-18] MEDS: HYDROGEN PEROXIDE 3% 118 ML BOTTLE TOP SCH ×2 (07:33→19:18)
[2022-11-18] MEDS: levETIRAcetam 500 MG/5 ML LIQUID UDC GT SCH ×2 (08:12→20:00)
[2022-11-18] MEDS: TIZANIDINE HCL 4 MG TABLET GT SCH ×2 (08:12→18:55)
[2022-11-18] MEDS: LACOSAMIDE 100 MG/10 ML UDC GT SCH ×2 (08:12→20:00)
[2022-11-18] MEDS: REMEDY ESSENTIAL ZINC PASTE 113 GM TP SCH ×2 (08:12→21:10)
[2022-11-18] MEDS: ACIDOPHILUS/BULGARICUS CHEW TAB GT SCH ×2 (08:12→21:09)
[2022-11-18] MEDS: METOCLOPRAMIDE HCL 10 MG TABLET GT SCH ×3 (08:12→18:55)
[2022-11-18 10:45] VITALS: O2SAT 98
[2022-11-18 12:35] VITALS: TEMP 98.2
[2022-11-18 20:20] VITALS: O2SAT 99
[2022-11-18] MEDS: RIVAROXABAN 10 MG TABLET GT SCH (21:00)
[2022-11-18] MEDS: MELATONIN 5MG TABLET GT SCH (21:09)
[2022-11-19] MEDS: FAMOTIDINE 20 MG TABLET GT SCH ×2 (05:22→18:28)
[2022-11-19 07:50] VITALS: TEMP 98.4
[2022-11-19] MEDS: TIZANIDINE HCL 4 MG TABLET GT SCH ×2 (08:11→18:46)
[2022-11-19] MEDS: levETIRAcetam 500 MG/5 ML LIQUID UDC GT SCH ×2 (08:11→20:00)
[2022-11-19] MEDS: METOCLOPRAMIDE HCL 10 MG TABLET GT SCH ×3 (08:11→18:29)
[2022-11-19] MEDS: ACIDOPHILUS/BULGARICUS CHEW TAB GT SCH ×2 (08:11→21:00)
[2022-11-19] MEDS: [UNRECOGNIZED DRUG - OTHER] TP SCH (08:12)
[2022-11-19] MEDS: REMEDY ESSENTIAL ZINC PASTE 113 GM TP SCH ×2 (08:12→21:00)
[2022-11-19] MEDS: LACOSAMIDE 100 MG/10 ML UDC GT SCH ×2 (08:17→20:00)
[2022-11-19] MEDS: HYDROGEN PEROXIDE 3% 118 ML BOTTLE TOP SCH ×2 (09:00→19:17)
[2022-11-19 10:42] VITALS: O2SAT 98
[2022-11-19] MEDS: BISACODYL 10 MG SUPP.RECT RC PRN (10:42)
[2022-11-19 20:00] VITALS: TEMP 97.9
[2022-11-19 20:27] VITALS: O2SAT 99
[2022-11-19] MEDS: RIVAROXABAN 10 MG TABLET GT SCH (21:00)
[2022-11-19] MEDS: MELATONIN 5MG TABLET GT SCH (21:00)
[2022-11-20] MEDS: FAMOTIDINE 20 MG TABLET GT SCH ×2 (06:30→18:32)
[2022-11-20 07:36] LABS: BASOPHILS % (AUTO) 0.4 % (0.0-2.0); EOSINOPHILS # (AUTO) 0.3 K/uL (0.0-0.7); EOSINOPHILS % (AUTO) 4.3 % (0.0-7.0); HEMATOCRIT 38.2 % (31.2-41.9); HEMOGLOBIN 12.9 g/dL (10.9-14.3); LYMPHOCYTES # (AUTO) 1.6 K/uL (0.8-4.8); LYMPHOCYTES % (AUTO) 23.9 % (20.5-51.5); MEAN CORPUSCULAR HGB CONC 34 g/dL (32.3-35.6); MEAN CORPUSCULAR VOLUME 88.7 fL (75.5-95.3); MONOCYTES # (AUTO) 0.4 K/uL (0.1-1.30); MONOCYTES % (AUTO) 5.6 % (0.0-11.0); NEUTROPHILS # (AUTO) 4.3 K/uL (1.8-8.9); NEUTROPHILS % (AUTO) 65.8 % (38.5-71.5); PLATELET COUNT (AUTO) 289 K/uL (179-408); RED BLOOD CELL COUNT(AUTO) 4.31 MIL/uL (3.63-4.92); WHITE BLOOD COUNT (AUTO) 6.6 K/uL (3.8-11.8)
[2022-11-20 07:44] LABS: CALCIUM 9.5 mg/dL (8.5-10.1); CARBON DIOXIDE 32 mmol/L (21-32); CHLORIDE 107 mmol/L (98-107); CREATININE 0.5 mg/dL (0.6-1.3); GLUCOSE 89 mg/dL (74-106); MAGNESIUM 2.2 mg/dL (1.8-2.4); PHOSPHOROUS 4.4 mg/dL (2.5-4.9); POTASSIUM 4.3 mmol/L (3.5-5.1); SODIUM SERUM 145 mmol/L (136-145); UREA NITROGEN, BLOOD 9 mg/dL (7-18)
[2022-11-20 07:57] LABS: DIFFERENTIAL COMMENT 1
[2022-11-20] MEDS: HYDROGEN PEROXIDE 3% 118 ML BOTTLE TOP SCH ×2 (08:10→21:00)
[2022-11-20 08:31] VITALS: TEMP 98.6
[2022-11-20] MEDS: LACOSAMIDE 100 MG/10 ML UDC GT SCH ×2 (09:00→20:13)
[2022-11-20] MEDS: levETIRAcetam 500 MG/5 ML LIQUID UDC GT SCH ×2 (09:00→20:13)
[2022-11-20] MEDS: METOCLOPRAMIDE HCL 10 MG TABLET GT SCH ×3 (09:07→18:32)
[2022-11-20] MEDS: ACIDOPHILUS/BULGARICUS CHEW TAB GT SCH ×2 (09:07→21:00)
[2022-11-20] MEDS: REMEDY ESSENTIAL ZINC PASTE 113 GM TP SCH ×2 (09:08→21:00)
[2022-11-20] MEDS: TIZANIDINE HCL 4 MG TABLET GT SCH ×2 (09:08→18:33)
[2022-11-20] MEDS: VITAL AF 1.2 1,000 ML LIQUID GT PRN (12:23)
[2022-11-20 16:05] VITALS: O2SAT 98
[2022-11-20 20:07] VITALS: TEMP 98
[2022-11-20 20:35] VITALS: O2SAT 99
[2022-11-20] MEDS: RIVAROXABAN 10 MG TABLET GT SCH (21:00)
[2022-11-20] MEDS: MELATONIN 5MG TABLET GT SCH (21:00)
[2022-11-21] MEDS: FAMOTIDINE 20 MG TABLET GT SCH ×2 (05:50→18:59)
[2022-11-21 07:36] VITALS: TEMP 98.7
[2022-11-21] MEDS: HYDROGEN PEROXIDE 3% 118 ML BOTTLE TOP SCH ×2 (08:10→19:09)
[2022-11-21] MEDS: levETIRAcetam 500 MG/5 ML LIQUID UDC GT SCH ×2 (08:30→20:00)
[2022-11-21] MEDS: LACOSAMIDE 100 MG/10 ML UDC GT SCH ×2 (08:30→20:00)
[2022-11-21] MEDS: METOCLOPRAMIDE HCL 10 MG TABLET GT SCH ×3 (08:30→18:59)
[2022-11-21] MEDS: ACIDOPHILUS/BULGARICUS CHEW TAB GT SCH ×2 (08:30→21:00)
[2022-11-21] MEDS: TIZANIDINE HCL 4 MG TABLET GT SCH ×2 (08:30→18:59)
[2022-11-21] MEDS: [UNRECOGNIZED DRUG - OTHER] TP SCH (09:14)
[2022-11-21] MEDS: REMEDY ESSENTIAL ZINC PASTE 113 GM TP SCH ×2 (09:15→21:00)
[2022-11-21 09:46] VITALS: O2SAT 98
[2022-11-21 20:00] VITALS: TEMP 98.4
[2022-11-21 20:20] VITALS: O2SAT 99
[2022-11-21] MEDS: MELATONIN 5MG TABLET GT SCH (21:00)
[2022-11-21] MEDS: RIVAROXABAN 10 MG TABLET GT SCH (21:00)
[2022-11-22] MEDS: FAMOTIDINE 20 MG TABLET GT SCH ×2 (05:24→18:52)
[2022-11-22 07:26] VITALS: TEMP 97.7
[2022-11-22] MEDS: levETIRAcetam 500 MG/5 ML LIQUID UDC GT SCH ×2 (08:22→20:03)
[2022-11-22] MEDS: METOCLOPRAMIDE HCL 10 MG TABLET GT SCH ×3 (08:22→18:52)
[2022-11-22] MEDS: TIZANIDINE HCL 4 MG TABLET GT SCH ×2 (08:22→18:50)
[2022-11-22] MEDS: LACOSAMIDE 100 MG/10 ML UDC GT SCH ×2 (08:22→20:03)
[2022-11-22] MEDS: ACIDOPHILUS/BULGARICUS CHEW TAB GT SCH ×2 (08:22→21:00)
[2022-11-22] MEDS: REMEDY ESSENTIAL ZINC PASTE 113 GM TP SCH ×2 (08:26→21:00)
[2022-11-22] MEDS: HYDROGEN PEROXIDE 3% 118 ML BOTTLE TOP SCH ×2 (08:36→19:15)
[2022-11-22 09:30] VITALS: O2SAT 99
[2022-11-22 20:00] VITALS: TEMP 97.9
[2022-11-22 20:10] VITALS: O2SAT 99
[2022-11-22] MEDS: MELATONIN 5MG TABLET GT SCH (21:00)
[2022-11-22] MEDS: RIVAROXABAN 10 MG TABLET GT SCH (21:00)
[2022-11-23] MEDS: VITAL AF 1.2 1,000 ML LIQUID GT PRN (04:02)
[2022-11-23] MEDS: FAMOTIDINE 20 MG TABLET GT SCH ×2 (06:01→19:00)
[2022-11-23] MEDS: BISACODYL 10 MG SUPP.RECT RC PRN (06:01)
[2022-11-23 07:23] VITALS: TEMP 97.8
[2022-11-23] MEDS: levETIRAcetam 500 MG/5 ML LIQUID UDC GT SCH ×2 (08:30→19:54)
[2022-11-23] MEDS: ACIDOPHILUS/BULGARICUS CHEW TAB GT SCH ×2 (08:31→21:25)
[2022-11-23] MEDS: LACOSAMIDE 100 MG/10 ML UDC GT SCH ×2 (08:31→19:54)
[2022-11-23] MEDS: METOCLOPRAMIDE HCL 10 MG TABLET GT SCH ×3 (08:33→19:00)
[2022-11-23] MEDS: [UNRECOGNIZED DRUG - OTHER] TP SCH (08:33)
[2022-11-23] MEDS: TIZANIDINE HCL 4 MG TABLET GT SCH ×2 (08:33→19:00)
[2022-11-23] MEDS: REMEDY ESSENTIAL ZINC PASTE 113 GM TP SCH ×2 (08:34→21:26)
[2022-11-23] MEDS: HYDROGEN PEROXIDE 3% 118 ML BOTTLE TOP SCH ×2 (09:00→21:39)
[2022-11-23 10:56] VITALS: O2SAT 98
[2022-11-23 20:00] VITALS: TEMP 98.8
[2022-11-23 20:05] VITALS: O2SAT 98
[2022-11-23] MEDS: MELATONIN 5MG TABLET GT SCH (21:25)
[2022-11-23] MEDS: RIVAROXABAN 10 MG TABLET GT SCH (21:26)
[2022-11-24] MEDS: VITAL AF 1.2 1,000 ML LIQUID GT PRN (03:52)
[2022-11-24] MEDS: FAMOTIDINE 20 MG TABLET GT SCH ×2 (05:42→18:56)
[2022-11-24] MEDS: HYDROGEN PEROXIDE 3% 118 ML BOTTLE TOP SCH ×2 (07:40→19:48)
[2022-11-24] MEDS: ACIDOPHILUS/BULGARICUS CHEW TAB GT SCH ×2 (08:27→20:39)
[2022-11-24] MEDS: LACOSAMIDE 100 MG/10 ML UDC GT SCH ×2 (08:27→20:00)
[2022-11-24] MEDS: REMEDY ESSENTIAL ZINC PASTE 113 GM TP SCH ×2 (08:28→20:39)
[2022-11-24] MEDS: METOCLOPRAMIDE HCL 10 MG TABLET GT SCH ×3 (08:28→18:56)
[2022-11-24] MEDS: levETIRAcetam 500 MG/5 ML LIQUID UDC GT SCH ×2 (08:28→20:00)
[2022-11-24] MEDS: TIZANIDINE HCL 4 MG TABLET GT SCH ×2 (08:28→18:56)
[2022-11-24 10:09] VITALS: TEMP 98.8
[2022-11-24 10:50] VITALS: O2SAT 98
[2022-11-24 20:00] VITALS: TEMP 98.2
[2022-11-24] MEDS: MELATONIN 5MG TABLET GT SCH (21:00)
[2022-11-24] MEDS: RIVAROXABAN 10 MG TABLET GT SCH (21:59)
[2022-11-24 22:40] VITALS: O2SAT 98
[2022-11-25] MEDS: FAMOTIDINE 20 MG TABLET GT SCH ×2 (06:22→18:30)
[2022-11-25 07:56] VITALS: TEMP 98.1
[2022-11-25] MEDS: LACOSAMIDE 100 MG/10 ML UDC GT SCH ×2 (08:09→20:19)
[2022-11-25] MEDS: levETIRAcetam 500 MG/5 ML LIQUID UDC GT SCH ×2 (08:09→20:19)
[2022-11-25] MEDS: ACIDOPHILUS/BULGARICUS CHEW TAB GT SCH ×2 (08:09→21:00)
[2022-11-25] MEDS: TIZANIDINE HCL 4 MG TABLET GT SCH ×2 (08:10→18:31)
[2022-11-25] MEDS: METOCLOPRAMIDE HCL 10 MG TABLET GT SCH ×3 (08:10→18:31)
[2022-11-25] MEDS: [UNRECOGNIZED DRUG - OTHER] TP SCH (08:10)
[2022-11-25] MEDS: REMEDY ESSENTIAL ZINC PASTE 113 GM TP SCH ×2 (08:10→21:00)
[2022-11-25] MEDS: HYDROGEN PEROXIDE 3% 118 ML BOTTLE TOP SCH ×2 (08:17→19:21)
[2022-11-25 12:40] VITALS: O2SAT 98
[2022-11-25] MEDS: VITAL AF 1.2 1,000 ML LIQUID GT PRN (16:05)
[2022-11-25 20:00] VITALS: TEMP 98.4
[2022-11-25] MEDS: RIVAROXABAN 10 MG TABLET GT SCH (21:00)
[2022-11-25] MEDS: MELATONIN 5MG TABLET GT SCH (21:00)
[2022-11-25 22:24] VITALS: O2SAT 98
[2022-11-26] MEDS: FAMOTIDINE 20 MG TABLET GT SCH ×2 (05:27→18:41)
[2022-11-26] MEDS: BISACODYL 10 MG SUPP.RECT RC PRN (05:44)
[2022-11-26 07:55] VITALS: TEMP 98.3
[2022-11-26] MEDS: levETIRAcetam 500 MG/5 ML LIQUID UDC GT SCH ×2 (08:01→20:12)
[2022-11-26] MEDS: METOCLOPRAMIDE HCL 10 MG TABLET GT SCH ×3 (08:02→18:41)
[2022-11-26] MEDS: TIZANIDINE HCL 4 MG TABLET GT SCH ×2 (08:02→18:41)
[2022-11-26] MEDS: REMEDY ESSENTIAL ZINC PASTE 113 GM TP SCH ×2 (08:02→21:56)
[2022-11-26] MEDS: ACIDOPHILUS/BULGARICUS CHEW TAB GT SCH ×2 (08:02→21:55)
[2022-11-26] MEDS: LACOSAMIDE 100 MG/10 ML UDC GT SCH ×2 (08:03→20:12)
[2022-11-26] MEDS: HYDROGEN PEROXIDE 3% 118 ML BOTTLE TOP SCH ×2 (08:35→20:10)
[2022-11-26 12:30] VITALS: O2SAT 98
[2022-11-26 20:04] VITALS: TEMP 97.1
[2022-11-26] MEDS: RIVAROXABAN 10 MG TABLET GT SCH (21:00)
[2022-11-26 21:25] VITALS: O2SAT 98
[2022-11-26] MEDS: MELATONIN 5MG TABLET GT SCH (21:56)
[2022-11-27] MEDS: VITAL AF 1.2 1,000 ML LIQUID GT PRN (05:17)
[2022-11-27] MEDS: FAMOTIDINE 20 MG TABLET GT SCH ×2 (05:17→18:55)
[2022-11-27 06:31] LABS: BASOPHILS % (AUTO) 0.5 % (0.0-2.0); EOSINOPHILS # (AUTO) 0.4 K/uL (0.0-0.7); EOSINOPHILS % (AUTO) 5.5 % (0.0-7.0); HEMATOCRIT 37.3 % (31.2-41.9); HEMOGLOBIN 12.4 g/dL (10.9-14.3); LYMPHOCYTES % (AUTO) 24.9 % (20.5-51.5); MEAN CORPUSCULAR HEMOGLOBIN 29.9 uug (24.7-32.8); MEAN CORPUSCULAR HGB CONC 33 g/dL (32.3-35.6); MEAN CORPUSCULAR VOLUME 90.1 fL (75.5-95.3); MONOCYTES # (AUTO) 0.6 K/uL (0.1-1.30); NEUTROPHILS # (AUTO) 4.9 K/uL (1.8-8.9); NEUTROPHILS % (AUTO) 62.1 % (38.5-71.5); PLATELET COUNT (AUTO) 252 K/uL (179-408); RED BLOOD CELL COUNT(AUTO) 4.14 MIL/uL (3.63-4.92); RED CELL DISTRIBUTION WIDTH 12.7 % (12.3-17.7); WHITE BLOOD COUNT (AUTO) 7.9 K/uL (3.8-11.8)
[2022-11-27 06:42] LABS: DIFFERENTIAL COMMENT 1
[2022-11-27 06:59] LABS: CALCIUM 8.9 mg/dL (8.5-10.1); CREATININE 0.6 mg/dL (0.6-1.3); MAGNESIUM 2.1 mg/dL (1.8-2.4); PHOSPHOROUS 4.5 mg/dL (2.5-4.9); POTASSIUM 4.3 mmol/L (3.5-5.1)
[2022-11-27] MEDS: HYDROGEN PEROXIDE 3% 118 ML BOTTLE TOP SCH ×2 (07:25→20:54)
[2022-11-27 08:10] VITALS: TEMP 97.5
[2022-11-27] MEDS: ACIDOPHILUS/BULGARICUS CHEW TAB GT SCH ×2 (08:38→21:00)
[2022-11-27] MEDS: LACOSAMIDE 100 MG/10 ML UDC GT SCH ×2 (08:38→19:59)
[2022-11-27] MEDS: levETIRAcetam 500 MG/5 ML LIQUID UDC GT SCH ×2 (08:38→19:59)
[2022-11-27] MEDS: METOCLOPRAMIDE HCL 10 MG TABLET GT SCH ×3 (08:39→18:55)
[2022-11-27] MEDS: TIZANIDINE HCL 4 MG TABLET GT SCH ×2 (08:40→18:56)
[2022-11-27] MEDS: [UNRECOGNIZED DRUG - OTHER] TP SCH (09:00)
[2022-11-27] MEDS: REMEDY ESSENTIAL ZINC PASTE 113 GM TP SCH ×2 (09:00→21:00)
[2022-11-27 10:45] VITALS: O2SAT 99
[2022-11-27 20:55] VITALS: O2SAT 98
[2022-11-27] MEDS: MELATONIN 5MG TABLET GT SCH (21:00)
[2022-11-27] MEDS: RIVAROXABAN 10 MG TABLET GT SCH (21:00)
[2022-11-28] MEDS: FAMOTIDINE 20 MG TABLET GT SCH ×2 (05:40→19:02)
[2022-11-28 07:27] VITALS: TEMP 97.9
[2022-11-28] MEDS: levETIRAcetam 500 MG/5 ML LIQUID UDC GT SCH ×2 (08:35→20:07)
[2022-11-28] MEDS: LACOSAMIDE 100 MG/10 ML UDC GT SCH ×2 (08:36→20:07)
[2022-11-28] MEDS: ACIDOPHILUS/BULGARICUS CHEW TAB GT SCH ×2 (08:42→21:00)
[2022-11-28] MEDS: METOCLOPRAMIDE HCL 10 MG TABLET GT SCH ×3 (08:42→19:02)
[2022-11-28] MEDS: REMEDY ESSENTIAL ZINC PASTE 113 GM TP SCH ×2 (08:43→21:00)
[2022-11-28] MEDS: TIZANIDINE HCL 4 MG TABLET GT SCH ×2 (08:43→19:02)
[2022-11-28 09:51] VITALS: O2SAT 98
[2022-11-28] MEDS: HYDROGEN PEROXIDE 3% 118 ML BOTTLE TOP SCH ×2 (09:51→19:12)
[2022-11-28] MEDS: VITAL AF 1.2 1,000 ML LIQUID GT PRN (10:43)
[2022-11-28 19:59] VITALS: O2SAT 98
[2022-11-28 20:00] VITALS: TEMP 97.5
[2022-11-28] MEDS: MELATONIN 5MG TABLET GT SCH (21:00)
[2022-11-28] MEDS: RIVAROXABAN 10 MG TABLET GT SCH (21:00)
[2022-11-29] MEDS: FAMOTIDINE 20 MG TABLET GT SCH ×2 (06:28→18:52)
[2022-11-29 07:32] VITALS: TEMP 98.4
[2022-11-29] MEDS: LACOSAMIDE 100 MG/10 ML UDC GT SCH ×2 (08:36→20:44)
[2022-11-29] MEDS: levETIRAcetam 500 MG/5 ML LIQUID UDC GT SCH ×2 (08:36→20:43)
[2022-11-29] MEDS: ACIDOPHILUS/BULGARICUS CHEW TAB GT SCH ×2 (08:36→20:44)
[2022-11-29] MEDS: TIZANIDINE HCL 4 MG TABLET GT SCH ×2 (08:37→18:52)
[2022-11-29] MEDS: METOCLOPRAMIDE HCL 10 MG TABLET GT SCH ×3 (08:37→18:52)
[2022-11-29] MEDS: [UNRECOGNIZED DRUG - OTHER] TP SCH (08:37)
[2022-11-29] MEDS: REMEDY ESSENTIAL ZINC PASTE 113 GM TP SCH ×2 (08:38→20:45)
[2022-11-29] MEDS: HYDROGEN PEROXIDE 3% 118 ML BOTTLE TOP SCH ×2 (09:19→19:19)
[2022-11-29 09:29] VITALS: O2SAT 98
[2022-11-29] MEDS: VITAL AF 1.2 1,000 ML LIQUID GT PRN (14:51)
[2022-11-29 20:15] VITALS: O2SAT 98
[2022-11-29] MEDS: MELATONIN 5MG TABLET GT SCH (20:44)
[2022-11-29] MEDS: RIVAROXABAN 10 MG TABLET GT SCH (20:45)
[2022-11-29 22:59] VITALS: TEMP 98.4
[2022-11-30] MEDS: FAMOTIDINE 20 MG TABLET GT SCH ×2 (06:55→18:50)
[2022-11-30 07:19] VITALS: TEMP 98.4
[2022-11-30] MEDS: levETIRAcetam 500 MG/5 ML LIQUID UDC GT SCH ×2 (08:00→20:08)
[2022-11-30] MEDS: LACOSAMIDE 100 MG/10 ML UDC GT SCH ×2 (08:00→20:08)
[2022-11-30 08:35] VITALS: O2SAT 98
[2022-11-30] MEDS: HYDROGEN PEROXIDE 3% 118 ML BOTTLE TOP SCH ×2 (09:00→19:18)
[2022-11-30] MEDS: REMEDY ESSENTIAL ZINC PASTE 113 GM TP SCH ×2 (09:22→21:00)
[2022-11-30] MEDS: ACIDOPHILUS/BULGARICUS CHEW TAB GT SCH ×2 (09:22→21:00)
[2022-11-30] MEDS: TIZANIDINE HCL 4 MG TABLET GT SCH ×2 (09:22→18:50)
[2022-11-30] MEDS: METOCLOPRAMIDE HCL 10 MG TABLET GT SCH ×3 (09:22→18:50)
[2022-11-30 20:12] VITALS: O2SAT 98
[2022-11-30] MEDS: MELATONIN 5MG TABLET GT SCH (21:00)
[2022-11-30] MEDS: RIVAROXABAN 10 MG TABLET GT SCH (21:00)
[2022-12-01] MEDS: FAMOTIDINE 20 MG TABLET GT SCH ×2 (05:33→18:47)
[2022-12-01 07:54] VITALS: TEMP 98.8
[2022-12-01] MEDS: LACOSAMIDE 100 MG/10 ML UDC GT SCH ×2 (08:38→20:14)
[2022-12-01] MEDS: TIZANIDINE HCL 4 MG TABLET GT SCH ×2 (08:38→18:47)
[2022-12-01] MEDS: ACIDOPHILUS/BULGARICUS CHEW TAB GT SCH ×2 (08:38→21:40)
[2022-12-01] MEDS: METOCLOPRAMIDE HCL 10 MG TABLET GT SCH ×3 (08:38→18:47)
[2022-12-01] MEDS: levETIRAcetam 500 MG/5 ML LIQUID UDC GT SCH ×2 (08:38→20:14)
[2022-12-01] MEDS: REMEDY ESSENTIAL ZINC PASTE 113 GM TP SCH ×2 (08:39→21:40)
[2022-12-01] MEDS: [UNRECOGNIZED DRUG - OTHER] TP SCH (08:44)
[2022-12-01] MEDS: HYDROGEN PEROXIDE 3% 118 ML BOTTLE TOP SCH ×2 (09:00→19:15)
[2022-12-01 10:50] VITALS: O2SAT 98
[2022-12-01 20:20] VITALS: O2SAT 98
[2022-12-01] MEDS: RIVAROXABAN 10 MG TABLET GT SCH (21:00)
[2022-12-01] MEDS: MELATONIN 5MG TABLET GT SCH (21:40)
[2022-12-02] MEDS: FAMOTIDINE 20 MG TABLET GT SCH ×2 (06:02→18:58)
[2022-12-02 08:03] VITALS: TEMP 97.7
[2022-12-02] MEDS: HYDROGEN PEROXIDE 3% 118 ML BOTTLE TOP SCH ×2 (08:17→19:08)
[2022-12-02] MEDS: levETIRAcetam 500 MG/5 ML LIQUID UDC GT SCH ×2 (08:56→20:15)
[2022-12-02] MEDS: LACOSAMIDE 100 MG/10 ML UDC GT SCH ×2 (08:56→20:15)
[2022-12-02] MEDS: ACIDOPHILUS/BULGARICUS CHEW TAB GT SCH ×2 (08:58→21:35)
[2022-12-02] MEDS: REMEDY ESSENTIAL ZINC PASTE 113 GM TP SCH ×2 (08:59→21:35)
[2022-12-02] MEDS: METOCLOPRAMIDE HCL 10 MG TABLET GT SCH ×3 (08:59→18:58)
[2022-12-02] MEDS: TIZANIDINE HCL 4 MG TABLET GT SCH ×2 (08:59→18:58)
[2022-12-02 10:40] VITALS: O2SAT 98
[2022-12-02 20:00] VITALS: TEMP 98.8; O2SAT 98
[2022-12-02] MEDS: VITAL AF 1.2 1,000 ML LIQUID GT PRN (20:15)
[2022-12-02] MEDS: RIVAROXABAN 10 MG TABLET GT SCH (21:00)
[2022-12-02] MEDS: MELATONIN 5MG TABLET GT SCH (21:35)
[2022-12-03] MEDS: FAMOTIDINE 20 MG TABLET GT SCH ×2 (05:27→18:30)
[2022-12-03] MEDS: BISACODYL 10 MG SUPP.RECT RC PRN (06:10)
[2022-12-03 08:00] VITALS: TEMP 97.4
[2022-12-03] MEDS: ACIDOPHILUS/BULGARICUS CHEW TAB GT SCH ×2 (08:21→21:00)
[2022-12-03] MEDS: levETIRAcetam 500 MG/5 ML LIQUID UDC GT SCH ×2 (08:21→20:29)
[2022-12-03] MEDS: REMEDY ESSENTIAL ZINC PASTE 113 GM TP SCH ×2 (08:21→21:00)
[2022-12-03] MEDS: METOCLOPRAMIDE HCL 10 MG TABLET GT SCH ×3 (08:21→18:30)
[2022-12-03] MEDS: LACOSAMIDE 100 MG/10 ML UDC GT SCH ×2 (08:21→20:29)
[2022-12-03] MEDS: TIZANIDINE HCL 4 MG TABLET GT SCH ×2 (08:21→18:30)
[2022-12-03] MEDS: [UNRECOGNIZED DRUG - OTHER] TP SCH (08:21)
[2022-12-03] MEDS: HYDROGEN PEROXIDE 3% 118 ML BOTTLE TOP SCH ×2 (09:21→19:05)
[2022-12-03 10:35] VITALS: O2SAT 98
[2022-12-03 20:10] VITALS: O2SAT 98
[2022-12-03 20:39] VITALS: TEMP 98.5
[2022-12-03] MEDS: RIVAROXABAN 10 MG TABLET GT SCH (21:00)
[2022-12-03] MEDS: MELATONIN 5MG TABLET GT SCH (21:00)
[2022-12-04] MEDS: VITAL AF 1.2 1,000 ML LIQUID GT PRN (00:05)
[2022-12-04] MEDS: FAMOTIDINE 20 MG TABLET GT SCH ×2 (05:26→18:44)
[2022-12-04] MEDS: HYDROGEN PEROXIDE 3% 118 ML BOTTLE TOP SCH ×2 (07:17→21:56)
[2022-12-04 08:07] VITALS: TEMP 98.4
[2022-12-04] MEDS: LACOSAMIDE 100 MG/10 ML UDC GT SCH ×2 (08:57→20:16)
[2022-12-04] MEDS: levETIRAcetam 500 MG/5 ML LIQUID UDC GT SCH ×2 (08:57→20:16)
[2022-12-04] MEDS: ACIDOPHILUS/BULGARICUS CHEW TAB GT SCH ×2 (09:08→21:00)
[2022-12-04] MEDS: METOCLOPRAMIDE HCL 10 MG TABLET GT SCH ×3 (09:08→18:44)
[2022-12-04] MEDS: TIZANIDINE HCL 4 MG TABLET GT SCH ×2 (09:09→18:44)
[2022-12-04] MEDS: REMEDY ESSENTIAL ZINC PASTE 113 GM TP SCH ×2 (09:09→21:00)
[2022-12-04 10:50] VITALS: O2SAT 98
[2022-12-04 20:00] VITALS: TEMP 97.9
[2022-12-04] MEDS: RIVAROXABAN 10 MG TABLET GT SCH (21:00)
[2022-12-04] MEDS: MELATONIN 5MG TABLET GT SCH (21:00)
[2022-12-04 21:57] VITALS: O2SAT 98
[2022-12-05] MEDS: FAMOTIDINE 20 MG TABLET GT SCH ×2 (05:55→18:33)
[2022-12-05 07:22] VITALS: TEMP 98.5
[2022-12-05] MEDS: levETIRAcetam 500 MG/5 ML LIQUID UDC GT SCH ×2 (08:41→20:04)
[2022-12-05] MEDS: LACOSAMIDE 100 MG/10 ML UDC GT SCH ×2 (08:41→20:04)
[2022-12-05] MEDS: [UNRECOGNIZED DRUG - OTHER] TP SCH (08:42)
[2022-12-05] MEDS: TIZANIDINE HCL 4 MG TABLET GT SCH ×2 (08:42→18:33)
[2022-12-05] MEDS: METOCLOPRAMIDE HCL 10 MG TABLET GT SCH ×3 (08:42→18:33)
[2022-12-05] MEDS: ACIDOPHILUS/BULGARICUS CHEW TAB GT SCH ×2 (08:42→21:00)
[2022-12-05] MEDS: REMEDY ESSENTIAL ZINC PASTE 113 GM TP SCH ×2 (08:43→21:00)
[2022-12-05] MEDS: VITAL AF 1.2 1,000 ML LIQUID GT PRN (08:43)
[2022-12-05] MEDS: HYDROGEN PEROXIDE 3% 118 ML BOTTLE TOP SCH ×2 (09:00→20:07)
[2022-12-05 10:45] VITALS: O2SAT 98
[2022-12-05 20:00] VITALS: TEMP 97.4
[2022-12-05 20:08] VITALS: O2SAT 99
[2022-12-05] MEDS: RIVAROXABAN 10 MG TABLET GT SCH (21:00)
[2022-12-05] MEDS: MELATONIN 5MG TABLET GT SCH (21:00)
[2022-12-06] MEDS: FAMOTIDINE 20 MG TABLET GT SCH ×2 (06:11→18:59)
[2022-12-06 07:14] VITALS: TEMP 98.4
[2022-12-06] MEDS: levETIRAcetam 500 MG/5 ML LIQUID UDC GT SCH ×2 (07:52→20:54)
[2022-12-06] MEDS: LACOSAMIDE 100 MG/10 ML UDC GT SCH ×2 (07:55→20:54)
[2022-12-06] MEDS: METOCLOPRAMIDE HCL 10 MG TABLET GT SCH ×3 (08:00→18:59)
[2022-12-06] MEDS: REMEDY ESSENTIAL ZINC PASTE 113 GM TP SCH ×2 (08:00→20:55)
[2022-12-06] MEDS: ACIDOPHILUS/BULGARICUS CHEW TAB GT SCH ×2 (08:00→20:54)
[2022-12-06] MEDS: TIZANIDINE HCL 4 MG TABLET GT SCH ×2 (08:00→19:00)
[2022-12-06 09:30] VITALS: O2SAT 98
[2022-12-06] MEDS: HYDROGEN PEROXIDE 3% 118 ML BOTTLE TOP SCH ×2 (09:45→19:16)
[2022-12-06] MEDS: VITAL AF 1.2 1,000 ML LIQUID GT PRN (16:57)
[2022-12-06 20:00] VITALS: TEMP 98.4
[2022-12-06 20:18] VITALS: O2SAT 98
[2022-12-06] MEDS: MELATONIN 5MG TABLET GT SCH (20:54)
[2022-12-06] MEDS: RIVAROXABAN 10 MG TABLET GT SCH (20:55)
[2022-12-07] MEDS: FAMOTIDINE 20 MG TABLET GT SCH ×2 (06:27→18:52)
[2022-12-07] MEDS: HYDROGEN PEROXIDE 3% 118 ML BOTTLE TOP SCH ×2 (07:25→19:24)
[2022-12-07 07:41] VITALS: TEMP 98.1
[2022-12-07] MEDS: levETIRAcetam 500 MG/5 ML LIQUID UDC GT SCH ×2 (08:32→20:07)
[2022-12-07] MEDS: ACIDOPHILUS/BULGARICUS CHEW TAB GT SCH ×2 (08:33→21:00)
[2022-12-07] MEDS: METOCLOPRAMIDE HCL 10 MG TABLET GT SCH ×3 (08:33→18:53)
[2022-12-07] MEDS: LACOSAMIDE 100 MG/10 ML UDC GT SCH ×2 (08:33→20:07)
[2022-12-07] MEDS: TIZANIDINE HCL 4 MG TABLET GT SCH ×2 (08:34→18:53)
[2022-12-07] MEDS: REMEDY ESSENTIAL ZINC PASTE 113 GM TP SCH ×2 (08:34→21:00)
[2022-12-07] MEDS: [UNRECOGNIZED DRUG - OTHER] TP SCH (09:00)
[2022-12-07 10:40] VITALS: O2SAT 99
[2022-12-07 19:49] VITALS: TEMP 98.2
[2022-12-07 20:10] VITALS: O2SAT 98
[2022-12-07] MEDS: MELATONIN 5MG TABLET GT SCH (21:00)
[2022-12-07] MEDS: RIVAROXABAN 10 MG TABLET GT SCH (21:00)
[2022-12-08] MEDS: VITAL AF 1.2 1,000 ML LIQUID GT PRN (04:50)
[2022-12-08] MEDS: FAMOTIDINE 20 MG TABLET GT SCH ×2 (05:40→18:57)
[2022-12-08 08:00] VITALS: TEMP 98.4
[2022-12-08] MEDS: levETIRAcetam 500 MG/5 ML LIQUID UDC GT SCH ×2 (08:27→20:21)
[2022-12-08] MEDS: LACOSAMIDE 100 MG/10 ML UDC GT SCH ×2 (08:28→20:21)
[2022-12-08] MEDS: TIZANIDINE HCL 4 MG TABLET GT SCH ×2 (08:29→18:57)
[2022-12-08] MEDS: REMEDY ESSENTIAL ZINC PASTE 113 GM TP SCH ×2 (08:29→21:35)
[2022-12-08] MEDS: METOCLOPRAMIDE HCL 10 MG TABLET GT SCH ×3 (08:29→18:57)
[2022-12-08] MEDS: ACIDOPHILUS/BULGARICUS CHEW TAB GT SCH ×2 (08:29→21:34)
[2022-12-08] MEDS: HYDROGEN PEROXIDE 3% 118 ML BOTTLE TOP SCH ×2 (09:00→19:24)
[2022-12-08 10:15] VITALS: O2SAT 98
[2022-12-08 20:00] VITALS: TEMP 98; O2SAT 98
[2022-12-08] MEDS: RIVAROXABAN 10 MG TABLET GT SCH (21:00)
[2022-12-08] MEDS: MELATONIN 5MG TABLET GT SCH (21:34)
[2022-12-09] MEDS: FAMOTIDINE 20 MG TABLET GT SCH ×2 (05:25→18:54)
[2022-12-09] MEDS: VITAL AF 1.2 1,000 ML LIQUID GT PRN (05:25)
[2022-12-09 07:55] VITALS: TEMP 98.2
[2022-12-09] MEDS: levETIRAcetam 500 MG/5 ML LIQUID UDC GT SCH ×2 (08:37→20:14)
[2022-12-09] MEDS: LACOSAMIDE 100 MG/10 ML UDC GT SCH ×2 (08:39→20:14)
[2022-12-09] MEDS: METOCLOPRAMIDE HCL 10 MG TABLET GT SCH ×3 (08:39→18:54)
[2022-12-09] MEDS: ACIDOPHILUS/BULGARICUS CHEW TAB GT SCH ×2 (08:39→21:33)
[2022-12-09] MEDS: REMEDY ESSENTIAL ZINC PASTE 113 GM TP SCH ×2 (08:40→21:33)
[2022-12-09] MEDS: TIZANIDINE HCL 4 MG TABLET GT SCH ×2 (08:40→18:55)
[2022-12-09] MEDS: [UNRECOGNIZED DRUG - OTHER] TP SCH (09:00)
[2022-12-09 10:30] VITALS: O2SAT 99
[2022-12-09] MEDS: HYDROGEN PEROXIDE 3% 118 ML BOTTLE TOP SCH ×2 (10:30→19:13)
[2022-12-09] MEDS: MELATONIN 5MG TABLET GT SCH (21:33)
[2022-12-09] MEDS: RIVAROXABAN 10 MG TABLET GT SCH (21:33)
[2022-12-09 22:54] VITALS: O2SAT 98
[2022-12-10] MEDS: FAMOTIDINE 20 MG TABLET GT SCH ×2 (05:24→18:42)
[2022-12-10 07:52] VITALS: TEMP 98
[2022-12-10] MEDS: levETIRAcetam 500 MG/5 ML LIQUID UDC GT SCH ×2 (08:01→20:22)
[2022-12-10] MEDS: ACIDOPHILUS/BULGARICUS CHEW TAB GT SCH ×2 (08:01→21:00)
[2022-12-10] MEDS: TIZANIDINE HCL 4 MG TABLET GT SCH ×2 (08:03→18:43)
[2022-12-10] MEDS: METOCLOPRAMIDE HCL 10 MG TABLET GT SCH ×3 (08:03→18:42)
[2022-12-10] MEDS: REMEDY ESSENTIAL ZINC PASTE 113 GM TP SCH ×2 (08:04→21:00)
[2022-12-10] MEDS: LACOSAMIDE 100 MG/10 ML UDC GT SCH ×2 (08:06→20:22)
[2022-12-10] MEDS: HYDROGEN PEROXIDE 3% 118 ML BOTTLE TOP SCH ×2 (09:00→20:23)
[2022-12-10 10:30] VITALS: O2SAT 98
[2022-12-10] MEDS: VITAL AF 1.2 1,000 ML LIQUID GT PRN (12:47)
[2022-12-10 19:55] VITALS: O2SAT 98
[2022-12-10 20:00] VITALS: TEMP 98.1
[2022-12-10] MEDS: RIVAROXABAN 10 MG TABLET GT SCH (21:00)
[2022-12-10] MEDS: MELATONIN 5MG TABLET GT SCH (21:00)
[2022-12-11] MEDS: BISACODYL 10 MG SUPP.RECT RC PRN (06:23)
[2022-12-11] MEDS: FAMOTIDINE 20 MG TABLET GT SCH ×2 (06:23→18:36)
[2022-12-11] MEDS: LACOSAMIDE 100 MG/10 ML UDC GT SCH ×2 (08:00→20:16)
[2022-12-11] MEDS: levETIRAcetam 500 MG/5 ML LIQUID UDC GT SCH ×2 (08:00→20:16)
[2022-12-11] MEDS: REMEDY ESSENTIAL ZINC PASTE 113 GM TP SCH ×2 (09:31→21:00)
[2022-12-11] MEDS: METOCLOPRAMIDE HCL 10 MG TABLET GT SCH ×3 (09:31→18:36)
[2022-12-11] MEDS: [UNRECOGNIZED DRUG - OTHER] TP SCH (09:31)
[2022-12-11] MEDS: ACIDOPHILUS/BULGARICUS CHEW TAB GT SCH ×2 (09:31→21:00)
[2022-12-11] MEDS: TIZANIDINE HCL 4 MG TABLET GT SCH ×2 (09:31→18:36)
[2022-12-11] MEDS: HYDROGEN PEROXIDE 3% 118 ML BOTTLE TOP SCH ×2 (09:48→19:18)
[2022-12-11 10:00] VITALS: O2SAT 98
[2022-12-11 20:00] VITALS: TEMP 97.9
[2022-12-11] MEDS: RIVAROXABAN 10 MG TABLET GT SCH (21:00)
[2022-12-11] MEDS: MELATONIN 5MG TABLET GT SCH (21:00)
[2022-12-11 21:20] VITALS: O2SAT 98
[2022-12-12] MEDS: FAMOTIDINE 20 MG TABLET GT SCH ×2 (05:14→18:58)
[2022-12-12 07:28] VITALS: TEMP 98.3
[2022-12-12 07:32] VITALS: O2SAT 98
[2022-12-12] MEDS: LACOSAMIDE 100 MG/10 ML UDC GT SCH ×2 (08:49→20:19)
[2022-12-12] MEDS: METOCLOPRAMIDE HCL 10 MG TABLET GT SCH ×3 (08:49→18:58)
[2022-12-12] MEDS: levETIRAcetam 500 MG/5 ML LIQUID UDC GT SCH ×2 (08:49→20:19)
[2022-12-12] MEDS: ACIDOPHILUS/BULGARICUS CHEW TAB GT SCH ×2 (08:49→21:00)
[2022-12-12] MEDS: TIZANIDINE HCL 4 MG TABLET GT SCH ×2 (08:50→18:58)
[2022-12-12] MEDS: REMEDY ESSENTIAL ZINC PASTE 113 GM TP SCH ×2 (08:50→21:00)
[2022-12-12] MEDS: HYDROGEN PEROXIDE 3% 118 ML BOTTLE TOP SCH ×2 (09:00→20:25)
[2022-12-12 15:08] VITALS: O2SAT 98
[2022-12-12 19:49] VITALS: TEMP 98.1
[2022-12-12 20:25] VITALS: O2SAT 99
[2022-12-12] MEDS: RIVAROXABAN 10 MG TABLET GT SCH (21:00)
[2022-12-12] MEDS: MELATONIN 5MG TABLET GT SCH (21:00)
[2022-12-13] MEDS: FAMOTIDINE 20 MG TABLET GT SCH ×2 (05:27→19:04)
[2022-12-13 07:16] VITALS: TEMP 98.4
[2022-12-13] MEDS: HYDROGEN PEROXIDE 3% 118 ML BOTTLE TOP SCH ×2 (07:31→21:33)
[2022-12-13] MEDS: levETIRAcetam 500 MG/5 ML LIQUID UDC GT SCH ×2 (08:27→19:59)
[2022-12-13] MEDS: LACOSAMIDE 100 MG/10 ML UDC GT SCH ×2 (08:27→20:00)
[2022-12-13] MEDS: ACIDOPHILUS/BULGARICUS CHEW TAB GT SCH ×2 (08:28→21:00)
[2022-12-13] MEDS: METOCLOPRAMIDE HCL 10 MG TABLET GT SCH ×3 (08:28→19:04)
[2022-12-13] MEDS: TIZANIDINE HCL 4 MG TABLET GT SCH ×2 (08:29→19:04)
[2022-12-13] MEDS: REMEDY ESSENTIAL ZINC PASTE 113 GM TP SCH ×2 (08:29→21:00)
[2022-12-13] MEDS: [UNRECOGNIZED DRUG - OTHER] TP SCH (08:29)
[2022-12-13 08:35] VITALS: O2SAT 98
[2022-12-13 20:00] VITALS: TEMP 98.2
[2022-12-13] MEDS: VITAL AF 1.2 1,000 ML LIQUID GT PRN (20:07)
[2022-12-13 20:25] VITALS: O2SAT 98
[2022-12-13] MEDS: MELATONIN 5MG TABLET GT SCH (21:00)
[2022-12-13] MEDS: RIVAROXABAN 10 MG TABLET GT SCH (21:00)
[2022-12-14] MEDS: FAMOTIDINE 20 MG TABLET GT SCH ×2 (05:21→18:58)
[2022-12-14] MEDS: BISACODYL 10 MG SUPP.RECT RC PRN (06:10)
[2022-12-14 07:05] VITALS: O2SAT 98
[2022-12-14 08:00] VITALS: TEMP 98.2
[2022-12-14] MEDS: ACIDOPHILUS/BULGARICUS CHEW TAB GT SCH ×2 (08:52→21:00)
[2022-12-14] MEDS: TIZANIDINE HCL 4 MG TABLET GT SCH ×2 (08:52→18:58)
[2022-12-14] MEDS: levETIRAcetam 500 MG/5 ML LIQUID UDC GT SCH ×2 (08:52→20:00)
[2022-12-14] MEDS: METOCLOPRAMIDE HCL 10 MG TABLET GT SCH ×3 (08:52→18:58)
[2022-12-14] MEDS: LACOSAMIDE 100 MG/10 ML UDC GT SCH ×2 (08:52→20:00)
[2022-12-14] MEDS: HYDROGEN PEROXIDE 3% 118 ML BOTTLE TOP SCH ×2 (09:00→21:00)
[2022-12-14] MEDS: REMEDY ESSENTIAL ZINC PASTE 113 GM TP SCH ×2 (09:50→21:00)
[2022-12-14 17:37] VITALS: O2SAT 98
[2022-12-14 20:00] VITALS: TEMP 98.2
[2022-12-14 20:20] VITALS: O2SAT 98
[2022-12-14] MEDS: RIVAROXABAN 10 MG TABLET GT SCH (21:00)
[2022-12-14] MEDS: MELATONIN 5MG TABLET GT SCH (21:00)
[2022-12-15] MEDS: VITAL AF 1.2 1,000 ML LIQUID GT PRN (05:06)
[2022-12-15] MEDS: FAMOTIDINE 20 MG TABLET GT SCH ×2 (06:20→18:51)
[2022-12-15 07:25] VITALS: O2SAT 98
[2022-12-15 07:38] VITALS: TEMP 98.5
[2022-12-15] MEDS: LACOSAMIDE 100 MG/10 ML UDC GT SCH ×2 (08:00→20:54)
[2022-12-15] MEDS: levETIRAcetam 500 MG/5 ML LIQUID UDC GT SCH ×2 (08:00→20:54)
[2022-12-15] MEDS: HYDROGEN PEROXIDE 3% 118 ML BOTTLE TOP SCH ×2 (08:36→19:23)
[2022-12-15] MEDS: REMEDY ESSENTIAL ZINC PASTE 113 GM TP SCH ×2 (09:00→21:00)
[2022-12-15] MEDS: METOCLOPRAMIDE HCL 10 MG TABLET GT SCH ×3 (09:00→18:51)
[2022-12-15] MEDS: ACIDOPHILUS/BULGARICUS CHEW TAB GT SCH ×2 (09:00→21:00)
[2022-12-15] MEDS: TIZANIDINE HCL 4 MG TABLET GT SCH ×2 (09:00→18:51)
[2022-12-15] MEDS: [UNRECOGNIZED DRUG - OTHER] TP SCH (09:00)
[2022-12-15 19:40] VITALS: O2SAT 98
[2022-12-15 20:00] VITALS: TEMP 98.4
[2022-12-15] MEDS: RIVAROXABAN 10 MG TABLET GT SCH (21:00)
[2022-12-15] MEDS: MELATONIN 5MG TABLET GT SCH (21:00)
[2022-12-16] MEDS: FAMOTIDINE 20 MG TABLET GT SCH ×2 (05:06→19:03)
[2022-12-16 07:32] VITALS: O2SAT 98
[2022-12-16 08:00] VITALS: TEMP 98.8
[2022-12-16] MEDS: levETIRAcetam 500 MG/5 ML LIQUID UDC GT SCH ×2 (08:00→20:02)
[2022-12-16] MEDS: LACOSAMIDE 100 MG/10 ML UDC GT SCH ×2 (08:00→20:02)
[2022-12-16] MEDS: REMEDY ESSENTIAL ZINC PASTE 113 GM TP SCH ×2 (09:00→21:25)
[2022-12-16] MEDS: HYDROGEN PEROXIDE 3% 118 ML BOTTLE TOP SCH ×2 (09:00→20:38)
[2022-12-16] MEDS: TIZANIDINE HCL 4 MG TABLET GT SCH ×2 (09:00→19:03)
[2022-12-16] MEDS: METOCLOPRAMIDE HCL 10 MG TABLET GT SCH ×3 (09:00→19:03)
[2022-12-16] MEDS: ACIDOPHILUS/BULGARICUS CHEW TAB GT SCH ×2 (09:00→21:25)
[2022-12-16] MEDS: VITAL AF 1.2 1,000 ML LIQUID GT PRN (12:51)
[2022-12-16 15:39] VITALS: O2SAT 98
[2022-12-16 20:00] VITALS: TEMP 98.2
[2022-12-16 20:45] VITALS: O2SAT 98
[2022-12-16] MEDS: MELATONIN 5MG TABLET GT SCH (21:25)
[2022-12-16] MEDS: RIVAROXABAN 10 MG TABLET GT SCH (21:26)
[2022-12-17] MEDS: FAMOTIDINE 20 MG TABLET GT SCH ×2 (05:39→19:09)
[2022-12-17] MEDS: levETIRAcetam 500 MG/5 ML LIQUID UDC GT SCH ×2 (08:00→20:19)
[2022-12-17] MEDS: LACOSAMIDE 100 MG/10 ML UDC GT SCH ×2 (08:00→20:19)
[2022-12-17 08:05] VITALS: TEMP 97.5
[2022-12-17] MEDS: HYDROGEN PEROXIDE 3% 118 ML BOTTLE TOP SCH ×2 (08:44→20:04)
[2022-12-17] MEDS: REMEDY ESSENTIAL ZINC PASTE 113 GM TP SCH ×2 (09:22→21:00)
[2022-12-17] MEDS: TIZANIDINE HCL 4 MG TABLET GT SCH ×2 (09:22→19:09)
[2022-12-17] MEDS: ACIDOPHILUS/BULGARICUS CHEW TAB GT SCH ×2 (09:22→21:00)
[2022-12-17] MEDS: METOCLOPRAMIDE HCL 10 MG TABLET GT SCH ×3 (09:22→19:09)
[2022-12-17] MEDS: [UNRECOGNIZED DRUG - OTHER] TP SCH (09:22)
[2022-12-17 10:10] VITALS: O2SAT 98
[2022-12-17] MEDS: VITAL AF 1.2 1,000 ML LIQUID GT PRN (15:21)
[2022-12-17 20:00] VITALS: TEMP 98.5
[2022-12-17] MEDS: RIVAROXABAN 10 MG TABLET GT SCH (21:00)
[2022-12-17] MEDS: MELATONIN 5MG TABLET GT SCH (21:00)
[2022-12-17 21:20] VITALS: O2SAT 98
[2022-12-18] MEDS: FAMOTIDINE 20 MG TABLET GT SCH ×2 (05:20→19:05)
[2022-12-18 08:34] VITALS: TEMP 97.5
[2022-12-18] MEDS: TIZANIDINE HCL 4 MG TABLET GT SCH ×2 (08:39→19:05)
[2022-12-18] MEDS: levETIRAcetam 500 MG/5 ML LIQUID UDC GT SCH ×2 (08:39→20:51)
[2022-12-18] MEDS: METOCLOPRAMIDE HCL 10 MG TABLET GT SCH ×3 (08:39→19:05)
[2022-12-18] MEDS: ACIDOPHILUS/BULGARICUS CHEW TAB GT SCH ×2 (08:39→21:47)
[2022-12-18] MEDS: LACOSAMIDE 100 MG/10 ML UDC GT SCH ×2 (08:39→20:51)
[2022-12-18] MEDS: REMEDY ESSENTIAL ZINC PASTE 113 GM TP SCH ×2 (09:00→21:47)
[2022-12-18] MEDS: HYDROGEN PEROXIDE 3% 118 ML BOTTLE TOP SCH ×2 (09:00→23:26)
[2022-12-18 10:54] VITALS: O2SAT 98
[2022-12-18 17:04] VITALS: O2SAT 98
[2022-12-18 20:32] VITALS: TEMP 97.5
[2022-12-18 21:40] VITALS: O2SAT 97
[2022-12-18] MEDS: RIVAROXABAN 10 MG TABLET GT SCH (21:47)
[2022-12-18] MEDS: MELATONIN 5MG TABLET GT SCH (21:47)
[2022-12-19 05:10] VITALS: O2SAT 98
[2022-12-19] MEDS: FAMOTIDINE 20 MG TABLET GT SCH ×2 (06:38→19:01)
[2022-12-19] MEDS: HYDROGEN PEROXIDE 3% 118 ML BOTTLE TOP SCH ×2 (07:28→20:38)
[2022-12-19 08:00] VITALS: TEMP 97.8
[2022-12-19] MEDS: [UNRECOGNIZED DRUG - OTHER] TP SCH (08:38)
[2022-12-19] MEDS: levETIRAcetam 500 MG/5 ML LIQUID UDC GT SCH ×2 (08:38→20:26)
[2022-12-19] MEDS: LACOSAMIDE 100 MG/10 ML UDC GT SCH ×2 (08:38→20:26)
[2022-12-19] MEDS: TIZANIDINE HCL 4 MG TABLET GT SCH ×2 (08:38→19:01)
[2022-12-19] MEDS: ACIDOPHILUS/BULGARICUS CHEW TAB GT SCH ×2 (08:38→20:27)
[2022-12-19] MEDS: METOCLOPRAMIDE HCL 10 MG TABLET GT SCH ×3 (08:38→19:01)
[2022-12-19] MEDS: REMEDY ESSENTIAL ZINC PASTE 113 GM TP SCH ×2 (08:39→21:00)
[2022-12-19] MEDS: BISACODYL 10 MG SUPP.RECT RC PRN (09:00)
[2022-12-19 10:50] VITALS: O2SAT 98
[2022-12-19] MEDS: MELATONIN 5MG TABLET GT SCH (20:27)
[2022-12-19] MEDS: RIVAROXABAN 10 MG TABLET GT SCH (20:28)
[2022-12-19 20:38] VITALS: O2SAT 99
[2022-12-20 04:01] VITALS: O2SAT 99
[2022-12-20 07:30] VITALS: TEMP 98.6
[2022-12-20 08:30] VITALS: O2SAT 98
[2022-12-20] MEDS: HYDROGEN PEROXIDE 3% 118 ML BOTTLE TOP SCH ×2 (08:30→19:12)
[2022-12-20] MEDS: levETIRAcetam 500 MG/5 ML LIQUID UDC GT SCH ×2 (08:43→20:26)
[2022-12-20] MEDS: LACOSAMIDE 100 MG/10 ML UDC GT SCH ×2 (08:43→20:26)
[2022-12-20] MEDS: ACIDOPHILUS/BULGARICUS CHEW TAB GT SCH ×2 (08:48→20:27)
[2022-12-20] MEDS: METOCLOPRAMIDE HCL 10 MG TABLET GT SCH ×3 (08:48→18:57)
[2022-12-20] MEDS: TIZANIDINE HCL 4 MG TABLET GT SCH ×2 (08:48→18:57)
[2022-12-20] MEDS: REMEDY ESSENTIAL ZINC PASTE 113 GM TP SCH ×2 (08:49→20:28)
[2022-12-20] MEDS: FAMOTIDINE 20 MG TABLET GT SCH (18:56)
[2022-12-20 20:01] VITALS: O2SAT 99
[2022-12-20] MEDS: MELATONIN 5MG TABLET GT SCH (20:27)
[2022-12-20] MEDS: RIVAROXABAN 10 MG TABLET GT SCH (20:27)
[2022-12-20 22:10] VITALS: TEMP 98.6
[2022-12-20] MEDS: VITAL AF 1.2 1,000 ML LIQUID GT PRN (23:42)
[2022-12-21] VITALS (8 sets, daily range): TEMP 98.6–98.8; O2SAT 98–99
[2022-12-21] MEDS: FAMOTIDINE 20 MG TABLET GT SCH ×2 (05:29→18:53)
[2022-12-21] MEDS: LACOSAMIDE 100 MG/10 ML UDC GT SCH ×2 (08:00→20:11)
[2022-12-21] MEDS: levETIRAcetam 500 MG/5 ML LIQUID UDC GT SCH ×2 (08:00→20:11)
[2022-12-21] MEDS: HYDROGEN PEROXIDE 3% 118 ML BOTTLE TOP SCH ×2 (09:00→19:21)
[2022-12-21] MEDS: TIZANIDINE HCL 4 MG TABLET GT SCH ×2 (09:56→18:53)
[2022-12-21] MEDS: REMEDY ESSENTIAL ZINC PASTE 113 GM TP SCH ×2 (09:56→21:00)
[2022-12-21] MEDS: ACIDOPHILUS/BULGARICUS CHEW TAB GT SCH ×2 (09:56→21:00)
[2022-12-21] MEDS: METOCLOPRAMIDE HCL 10 MG TABLET GT SCH ×3 (09:56→18:53)
[2022-12-21] MEDS: [UNRECOGNIZED DRUG - OTHER] TP SCH (09:56)
[2022-12-21] MEDS: RIVAROXABAN 10 MG TABLET GT SCH (21:00)
[2022-12-21] MEDS: MELATONIN 5MG TABLET GT SCH (21:00)
[2022-12-22] VITALS (8 sets, daily range): TEMP 98.1–98.5; O2SAT 98–99
[2022-12-22] MEDS: VITAL AF 1.2 1,000 ML LIQUID GT PRN (03:17)
[2022-12-22] MEDS: FAMOTIDINE 20 MG TABLET GT SCH ×2 (05:25→18:56)
[2022-12-22] MEDS: LACOSAMIDE 100 MG/10 ML UDC GT SCH ×2 (08:30→20:00)
[2022-12-22] MEDS: levETIRAcetam 500 MG/5 ML LIQUID UDC GT SCH ×2 (08:30→20:00)
[2022-12-22] MEDS: HYDROGEN PEROXIDE 3% 118 ML BOTTLE TOP SCH ×2 (09:00→21:00)
[2022-12-22] MEDS: ACIDOPHILUS/BULGARICUS CHEW TAB GT SCH ×2 (09:00→20:09)
[2022-12-22] MEDS: METOCLOPRAMIDE HCL 10 MG TABLET GT SCH ×3 (09:00→18:56)
[2022-12-22] MEDS: TIZANIDINE HCL 4 MG TABLET GT SCH ×2 (09:01→18:56)
[2022-12-22] MEDS: REMEDY ESSENTIAL ZINC PASTE 113 GM TP SCH ×2 (09:03→20:09)
[2022-12-22] MEDS: MELATONIN 5MG TABLET GT SCH (20:13)
[2022-12-22] MEDS: RIVAROXABAN 10 MG TABLET GT SCH (21:00)
[2022-12-23 04:23] VITALS: O2SAT 99
[2022-12-23] MEDS: FAMOTIDINE 20 MG TABLET GT SCH ×2 (05:23→18:58)
[2022-12-23] MEDS: BISACODYL 10 MG SUPP.RECT RC PRN (06:25)
[2022-12-23 07:55] VITALS: TEMP 98.2
[2022-12-23 08:32] VITALS: O2SAT 99
[2022-12-23] MEDS: REMEDY ESSENTIAL ZINC PASTE 113 GM TP SCH ×2 (08:46→21:27)
[2022-12-23] MEDS: [UNRECOGNIZED DRUG - OTHER] TP SCH (08:46)
[2022-12-23] MEDS: TIZANIDINE HCL 4 MG TABLET GT SCH ×2 (08:46→18:58)
[2022-12-23] MEDS: ACIDOPHILUS/BULGARICUS CHEW TAB GT SCH ×2 (08:46→21:27)
[2022-12-23] MEDS: LACOSAMIDE 100 MG/10 ML UDC GT SCH ×2 (08:46→20:11)
[2022-12-23] MEDS: levETIRAcetam 500 MG/5 ML LIQUID UDC GT SCH ×2 (08:46→20:11)
[2022-12-23] MEDS: METOCLOPRAMIDE HCL 10 MG TABLET GT SCH ×3 (08:46→18:58)
[2022-12-23] MEDS: HYDROGEN PEROXIDE 3% 118 ML BOTTLE TOP SCH ×2 (09:13→20:48)
[2022-12-23] MEDS: VITAL AF 1.2 1,000 ML LIQUID GT PRN (12:43)
[2022-12-23 20:00] VITALS: TEMP 98.1
[2022-12-23 20:49] VITALS: O2SAT 99
[2022-12-23] MEDS: RIVAROXABAN 10 MG TABLET GT SCH (21:00)
[2022-12-23] MEDS: MELATONIN 5MG TABLET GT SCH (21:27)
[2022-12-24 04:00] VITALS: O2SAT 99
[2022-12-24] MEDS: FAMOTIDINE 20 MG TABLET GT SCH ×2 (05:46→19:01)
[2022-12-24 08:11] VITALS: TEMP 98.3
[2022-12-24] MEDS: levETIRAcetam 500 MG/5 ML LIQUID UDC GT SCH ×2 (08:36→20:40)
[2022-12-24] MEDS: ACIDOPHILUS/BULGARICUS CHEW TAB GT SCH ×2 (08:36→21:00)
[2022-12-24] MEDS: LACOSAMIDE 100 MG/10 ML UDC GT SCH ×2 (08:36→20:40)
[2022-12-24] MEDS: METOCLOPRAMIDE HCL 10 MG TABLET GT SCH ×3 (08:37→19:01)
[2022-12-24] MEDS: TIZANIDINE HCL 4 MG TABLET GT SCH ×2 (08:37→19:01)
[2022-12-24] MEDS: REMEDY ESSENTIAL ZINC PASTE 113 GM TP SCH ×2 (08:37→21:00)
[2022-12-24] MEDS: HYDROGEN PEROXIDE 3% 118 ML BOTTLE TOP SCH ×2 (08:58→20:28)
[2022-12-24 17:32] VITALS: O2SAT 98
[2022-12-24 20:28] VITALS: O2SAT 98
[2022-12-24 20:30] VITALS: TEMP 98.1
[2022-12-24] MEDS: RIVAROXABAN 10 MG TABLET GT SCH (21:00)
[2022-12-24] MEDS: MELATONIN 5MG TABLET GT SCH (21:00)
[2022-12-25] MEDS: FAMOTIDINE 20 MG TABLET GT SCH ×2 (06:56→19:11)
[2022-12-25 07:26] LABS: BASOPHILS % (AUTO) 0.9 % (0.0-2.0); EOSINOPHILS # (AUTO) 0.3 K/uL (0.0-0.7); EOSINOPHILS % (AUTO) 5.6 % (0.0-7.0); HEMATOCRIT 38.1 % (31.2-41.9); HEMOGLOBIN 12.8 g/dL (10.9-14.3); LYMPHOCYTES # (AUTO) 1.8 K/uL (0.8-4.8); LYMPHOCYTES % (AUTO) 31.9 % (20.5-51.5); MEAN CORPUSCULAR HEMOGLOBIN 30.1 uug (24.7-32.8); MEAN CORPUSCULAR HGB CONC 34 g/dL (32.3-35.6); MEAN CORPUSCULAR VOLUME 89.8 fL (75.5-95.3); MONOCYTES # (AUTO) 0.4 K/uL (0.1-1.30); MONOCYTES % (AUTO) 7.4 % (0.0-11.0); NEUTROPHILS # (AUTO) 3.1 K/uL (1.8-8.9); NEUTROPHILS % (AUTO) 54.2 % (38.5-71.5); PLATELET COUNT (AUTO) 290 K/uL (179-408); RED BLOOD CELL COUNT(AUTO) 4.25 MIL/uL (3.63-4.92); RED CELL DISTRIBUTION WIDTH 12.7 % (12.3-17.7); WHITE BLOOD COUNT (AUTO) 5.6 K/uL (3.8-11.8)
[2022-12-25 07:42] LABS: DIFFERENTIAL COMMENT 1
[2022-12-25 07:55] LABS: CALCIUM 9.5 mg/dL (8.5-10.1); CREATININE 0.6 mg/dL (0.6-1.3); MAGNESIUM 2.3 mg/dL (1.8-2.4); PHOSPHOROUS 4.2 mg/dL (2.5-4.9); POTASSIUM 4.6 mmol/L (3.5-5.1)
[2022-12-25 08:00] VITALS: TEMP 97.2
[2022-12-25] MEDS: METOCLOPRAMIDE HCL 10 MG TABLET GT SCH ×3 (08:39→19:11)
[2022-12-25] MEDS: TIZANIDINE HCL 4 MG TABLET GT SCH ×2 (08:39→19:11)
[2022-12-25] MEDS: REMEDY ESSENTIAL ZINC PASTE 113 GM TP SCH ×2 (08:39→21:00)
[2022-12-25] MEDS: LACOSAMIDE 100 MG/10 ML UDC GT SCH ×2 (08:39→20:01)
[2022-12-25] MEDS: ACIDOPHILUS/BULGARICUS CHEW TAB GT SCH ×2 (08:39→21:00)
[2022-12-25] MEDS: levETIRAcetam 500 MG/5 ML LIQUID UDC GT SCH ×2 (08:39→20:01)
[2022-12-25] MEDS: [UNRECOGNIZED DRUG - OTHER] TP SCH (08:39)
[2022-12-25] MEDS: HYDROGEN PEROXIDE 3% 118 ML BOTTLE TOP SCH ×3 (09:00→21:38)
[2022-12-25 16:00] VITALS: O2SAT 98
[2022-12-25] MEDS: MELATONIN 5MG TABLET GT SCH (21:00)
[2022-12-25] MEDS: RIVAROXABAN 10 MG TABLET GT SCH (21:00)
[2022-12-25 21:50] VITALS: O2SAT 99
[2022-12-26] MEDS: VITAL AF 1.2 1,000 ML LIQUID GT PRN (04:00)
[2022-12-26] MEDS: SIMETHICONE 80 MG TAB.CHEW GT PRN (04:16)
[2022-12-26 04:50] VITALS: O2SAT 99
[2022-12-26] MEDS: FAMOTIDINE 20 MG TABLET GT SCH ×2 (05:53→18:30)
[2022-12-26] MEDS: levETIRAcetam 500 MG/5 ML LIQUID UDC GT SCH ×2 (08:16→19:59)
[2022-12-26] MEDS: METOCLOPRAMIDE HCL 10 MG TABLET GT SCH ×3 (08:19→18:30)
[2022-12-26] MEDS: LACOSAMIDE 100 MG/10 ML UDC GT SCH ×2 (08:19→19:59)
[2022-12-26] MEDS: TIZANIDINE HCL 4 MG TABLET GT SCH ×2 (08:19→18:30)
[2022-12-26] MEDS: REMEDY ESSENTIAL ZINC PASTE 113 GM TP SCH ×2 (08:20→21:00)
[2022-12-26] MEDS: ACIDOPHILUS/BULGARICUS CHEW TAB GT SCH (08:59)
[2022-12-26] MEDS: HYDROGEN PEROXIDE 3% 118 ML BOTTLE TOP SCH ×2 (09:04→21:06)
[2022-12-26 10:50] VITALS: O2SAT 99
[2022-12-26 16:20] VITALS: O2SAT 98
[2022-12-26 20:00] VITALS: TEMP 98.4
[2022-12-26] MEDS: MELATONIN 5MG TABLET GT SCH (21:00)
[2022-12-26] MEDS: RIVAROXABAN 10 MG TABLET GT SCH (21:00)
[2022-12-26 21:06] VITALS: O2SAT 99
[2022-12-27 04:02] VITALS: O2SAT 99
[2022-12-27] MEDS: VITAL AF 1.2 1,000 ML LIQUID GT PRN (04:03)
[2022-12-27] MEDS: FAMOTIDINE 20 MG TABLET GT SCH ×2 (05:43→19:26)
[2022-12-27] MEDS: BISACODYL 10 MG SUPP.RECT RC PRN (06:00)
[2022-12-27] MEDS: HYDROGEN PEROXIDE 3% 118 ML BOTTLE TOP SCH ×2 (07:30→08:48)
[2022-12-27] MEDS: levETIRAcetam 500 MG/5 ML LIQUID UDC GT SCH ×2 (08:00→20:17)
[2022-12-27] MEDS: LACOSAMIDE 100 MG/10 ML UDC GT SCH ×2 (08:50→20:17)
[2022-12-27 09:00] VITALS: O2SAT 99
[2022-12-27] MEDS: METOCLOPRAMIDE HCL 10 MG TABLET GT SCH ×3 (09:53→19:26)
[2022-12-27] MEDS: TIZANIDINE HCL 4 MG TABLET GT SCH ×2 (09:53→19:26)
[2022-12-27] MEDS: [UNRECOGNIZED DRUG - OTHER] TP SCH (09:55)
[2022-12-27] MEDS: REMEDY ESSENTIAL ZINC PASTE 113 GM TP SCH ×2 (09:55→21:13)
[2022-12-27 19:58] VITALS: O2SAT 99
[2022-12-27 20:00] VITALS: TEMP 97.9
[2022-12-27] MEDS: RIVAROXABAN 10 MG TABLET GT SCH (21:13)
[2022-12-27] MEDS: MELATONIN 5MG TABLET GT SCH (21:13)
[2022-12-28] MEDS: FAMOTIDINE 20 MG TABLET GT SCH ×2 (05:38→19:14)
[2022-12-28 07:23] VITALS: O2SAT 98
[2022-12-28] MEDS: TIZANIDINE HCL 4 MG TABLET GT SCH ×2 (08:47→19:14)
[2022-12-28] MEDS: REMEDY ESSENTIAL ZINC PASTE 113 GM TP SCH ×2 (08:47→21:00)
[2022-12-28] MEDS: levETIRAcetam 500 MG/5 ML LIQUID UDC GT SCH ×2 (08:47→20:14)
[2022-12-28] MEDS: LACOSAMIDE 100 MG/10 ML UDC GT SCH ×2 (08:47→20:14)
[2022-12-28] MEDS: METOCLOPRAMIDE HCL 10 MG TABLET GT SCH ×3 (08:47→19:14)
[2022-12-28] MEDS: HYDROGEN PEROXIDE 3% 118 ML BOTTLE TOP SCH ×2 (09:00→21:29)
[2022-12-28 11:20] VITALS: O2SAT 98
[2022-12-28 15:30] VITALS: O2SAT 98
[2022-12-28 20:00] VITALS: O2SAT 99
[2022-12-28] MEDS: RIVAROXABAN 10 MG TABLET GT SCH (21:00)
[2022-12-28] MEDS: MELATONIN 5MG TABLET GT SCH (21:00)
[2022-12-29] MEDS: FAMOTIDINE 20 MG TABLET GT SCH ×2 (05:22→19:09)
[2022-12-29] MEDS: HYDROGEN PEROXIDE 3% 118 ML BOTTLE TOP SCH ×2 (07:35→19:21)
[2022-12-29 08:07] VITALS: TEMP 98.8
[2022-12-29 08:21] VITALS: O2SAT 99
[2022-12-29] MEDS: METOCLOPRAMIDE HCL 10 MG TABLET GT SCH ×3 (08:48→19:09)
[2022-12-29] MEDS: LACOSAMIDE 100 MG/10 ML UDC GT SCH ×2 (08:48→20:12)
[2022-12-29] MEDS: levETIRAcetam 500 MG/5 ML LIQUID UDC GT SCH ×2 (08:48→20:12)
[2022-12-29] MEDS: [UNRECOGNIZED DRUG - OTHER] TP SCH (08:49)
[2022-12-29] MEDS: REMEDY ESSENTIAL ZINC PASTE 113 GM TP SCH ×2 (08:49→21:30)
[2022-12-29] MEDS: TIZANIDINE HCL 4 MG TABLET GT SCH ×2 (08:49→19:09)
[2022-12-29 20:00] VITALS: TEMP 98.4
[2022-12-29 20:10] VITALS: O2SAT 99
[2022-12-29 20:29] VITALS: TEMP 98.4
[2022-12-29] MEDS: VITAL AF 1.2 1,000 ML LIQUID GT PRN (21:30)
[2022-12-29] MEDS: MELATONIN 5MG TABLET GT SCH (21:30)
[2022-12-29] MEDS: RIVAROXABAN 10 MG TABLET GT SCH (21:35)
[2022-12-30] MEDS: FAMOTIDINE 20 MG TABLET GT SCH ×2 (05:23→19:01)
[2022-12-30] MEDS: HYDROGEN PEROXIDE 3% 118 ML BOTTLE TOP SCH ×2 (07:19→19:17)
[2022-12-30 08:00] VITALS: TEMP 97.7
[2022-12-30] MEDS: LACOSAMIDE 100 MG/10 ML UDC GT SCH ×2 (08:00→20:13)
[2022-12-30] MEDS: levETIRAcetam 500 MG/5 ML LIQUID UDC GT SCH ×2 (08:00→20:13)
[2022-12-30] MEDS: METOCLOPRAMIDE HCL 10 MG TABLET GT SCH ×3 (09:28→19:01)
[2022-12-30] MEDS: TIZANIDINE HCL 4 MG TABLET GT SCH ×2 (09:28→19:01)
[2022-12-30] MEDS: REMEDY ESSENTIAL ZINC PASTE 113 GM TP SCH ×2 (09:29→21:32)
[2022-12-30 10:50] VITALS: O2SAT 98
[2022-12-30 12:06] VITALS: TEMP 97.7
[2022-12-30 20:10] VITALS: O2SAT 99
[2022-12-30] MEDS: MELATONIN 5MG TABLET GT SCH (21:32)
[2022-12-30] MEDS: RIVAROXABAN 10 MG TABLET GT SCH (21:33)
[2022-12-31 02:00] VITALS: TEMP 97
[2022-12-31] MEDS: VITAL AF 1.2 1,000 ML LIQUID GT PRN (04:18)
[2022-12-31] MEDS: FAMOTIDINE 20 MG TABLET GT SCH ×2 (05:52→18:52)
[2022-12-31] MEDS: SIMETHICONE 80 MG TAB.CHEW GT PRN (06:33)
[2022-12-31 08:00] VITALS: TEMP 97.1
[2022-12-31] MEDS: levETIRAcetam 500 MG/5 ML LIQUID UDC GT SCH ×2 (08:00→20:13)
[2022-12-31] MEDS: LACOSAMIDE 100 MG/10 ML UDC GT SCH ×2 (08:00→20:13)
[2022-12-31] MEDS: TIZANIDINE HCL 4 MG TABLET GT SCH ×2 (09:00→18:52)
[2022-12-31] MEDS: [UNRECOGNIZED DRUG - OTHER] TP SCH (09:00)
[2022-12-31] MEDS: REMEDY ESSENTIAL ZINC PASTE 113 GM TP SCH ×2 (09:00→21:00)
[2022-12-31] MEDS: METOCLOPRAMIDE HCL 10 MG TABLET GT SCH ×3 (09:00→18:52)
[2022-12-31] MEDS: HYDROGEN PEROXIDE 3% 118 ML BOTTLE TOP SCH ×2 (09:00→19:24)
[2022-12-31 09:30] VITALS: O2SAT 98
[2022-12-31 20:20] VITALS: O2SAT 99
[2022-12-31] MEDS: MELATONIN 5MG TABLET GT SCH (21:00)
[2022-12-31] MEDS: RIVAROXABAN 10 MG TABLET GT SCH (21:00)
[2023-01-01] MEDS: FAMOTIDINE 20 MG TABLET GT SCH ×2 (05:22→18:53)
[2023-01-01 08:07] VITALS: TEMP 97.3
[2023-01-01] MEDS: LACOSAMIDE 100 MG/10 ML UDC GT SCH ×2 (08:39→20:06)
[2023-01-01] MEDS: METOCLOPRAMIDE HCL 10 MG TABLET GT SCH ×3 (08:39→18:53)
[2023-01-01] MEDS: REMEDY ESSENTIAL ZINC PASTE 113 GM TP SCH ×2 (08:39→21:00)
[2023-01-01] MEDS: TIZANIDINE HCL 4 MG TABLET GT SCH ×2 (08:39→18:53)
[2023-01-01] MEDS: levETIRAcetam 500 MG/5 ML LIQUID UDC GT SCH ×2 (08:39→20:06)
[2023-01-01] MEDS: HYDROGEN PEROXIDE 3% 118 ML BOTTLE TOP SCH ×2 (09:36→19:24)
[2023-01-01 10:00] VITALS: O2SAT 98
[2023-01-01 20:00] VITALS: TEMP 98.8
[2023-01-01 20:28] VITALS: O2SAT 99
[2023-01-01] MEDS: MELATONIN 5MG TABLET GT SCH (21:00)
[2023-01-01] MEDS: RIVAROXABAN 10 MG TABLET GT SCH (21:00)
[2023-01-02] VITALS (7 sets, daily range): TEMP 97.8–98.3; O2SAT 98–99
[2023-01-02] MEDS: FAMOTIDINE 20 MG TABLET GT SCH ×2 (05:19→18:52)
[2023-01-02] MEDS: levETIRAcetam 500 MG/5 ML LIQUID UDC GT SCH ×2 (08:27→20:25)
[2023-01-02] MEDS: METOCLOPRAMIDE HCL 10 MG TABLET GT SCH ×3 (08:27→18:52)
[2023-01-02] MEDS: TIZANIDINE HCL 4 MG TABLET GT SCH ×2 (08:28→18:52)
[2023-01-02] MEDS: [UNRECOGNIZED DRUG - OTHER] TP SCH (08:28)
[2023-01-02] MEDS: REMEDY ESSENTIAL ZINC PASTE 113 GM TP SCH ×2 (08:29→21:00)
[2023-01-02] MEDS: LACOSAMIDE 100 MG/10 ML UDC GT SCH ×2 (08:30→20:25)
[2023-01-02] MEDS: HYDROGEN PEROXIDE 3% 118 ML BOTTLE TOP SCH ×2 (08:40→19:42)
[2023-01-02] MEDS: MELATONIN 5MG TABLET GT SCH (21:00)
[2023-01-02] MEDS: RIVAROXABAN 10 MG TABLET GT SCH (21:00)
[2023-01-03] MEDS: FAMOTIDINE 20 MG TABLET GT SCH ×2 (05:23→18:55)
[2023-01-03] MEDS: BISACODYL 10 MG SUPP.RECT RC PRN (06:00)
[2023-01-03] MEDS: levETIRAcetam 500 MG/5 ML LIQUID UDC GT SCH ×2 (08:50→20:32)
[2023-01-03] MEDS: METOCLOPRAMIDE HCL 10 MG TABLET GT SCH ×3 (08:52→18:56)
[2023-01-03] MEDS: TIZANIDINE HCL 4 MG TABLET GT SCH ×2 (08:52→18:56)
[2023-01-03] MEDS: LACOSAMIDE 100 MG/10 ML UDC GT SCH ×2 (08:57→20:32)
[2023-01-03] MEDS: REMEDY ESSENTIAL ZINC PASTE 113 GM TP SCH ×2 (08:57→21:00)
[2023-01-03] MEDS: HYDROGEN PEROXIDE 3% 118 ML BOTTLE TOP SCH ×2 (09:00→19:15)
[2023-01-03 09:11] VITALS: TEMP 97.6
[2023-01-03 13:31] VITALS: O2SAT 98
[2023-01-03 20:00] VITALS: TEMP 98.5
[2023-01-03 20:11] VITALS: O2SAT 99
[2023-01-03] MEDS: MELATONIN 5MG TABLET GT SCH (21:00)
[2023-01-03] MEDS: RIVAROXABAN 10 MG TABLET GT SCH (21:00)
[2023-01-03] MEDS: VITAL AF 1.2 1,000 ML LIQUID GT PRN (23:33)
[2023-01-04] MEDS: FAMOTIDINE 20 MG TABLET GT SCH ×2 (05:13→18:54)
[2023-01-04 07:41] VITALS: O2SAT 98
[2023-01-04 08:00] VITALS: TEMP 97.8
[2023-01-04] MEDS: LACOSAMIDE 100 MG/10 ML UDC GT SCH ×2 (08:46→20:11)
[2023-01-04] MEDS: levETIRAcetam 500 MG/5 ML LIQUID UDC GT SCH ×2 (08:46→20:11)
[2023-01-04] MEDS: METOCLOPRAMIDE HCL 10 MG TABLET GT SCH ×3 (08:47→18:55)
[2023-01-04] MEDS: REMEDY ESSENTIAL ZINC PASTE 113 GM TP SCH ×2 (08:48→21:00)
[2023-01-04] MEDS: [UNRECOGNIZED DRUG - OTHER] TP SCH (08:48)
[2023-01-04] MEDS: TIZANIDINE HCL 4 MG TABLET GT SCH ×2 (08:48→18:56)
[2023-01-04] MEDS: HYDROGEN PEROXIDE 3% 118 ML BOTTLE TOP SCH ×2 (09:00→19:16)
[2023-01-04 11:50] VITALS: O2SAT 98
[2023-01-04 15:48] VITALS: O2SAT 98
[2023-01-04 19:25] VITALS: O2SAT 99
[2023-01-04 20:00] VITALS: TEMP 98.5
[2023-01-04] MEDS: MELATONIN 5MG TABLET GT SCH (21:00)
[2023-01-04] MEDS: RIVAROXABAN 10 MG TABLET GT SCH (21:00)
[2023-01-05] MEDS: VITAL AF 1.2 1,000 ML LIQUID GT PRN (04:10)
[2023-01-05] MEDS: FAMOTIDINE 20 MG TABLET GT SCH ×2 (05:44→18:31)
[2023-01-05 08:00] VITALS: TEMP 98.2
[2023-01-05 09:00] VITALS: O2SAT 99
[2023-01-05] MEDS: HYDROGEN PEROXIDE 3% 118 ML BOTTLE TOP SCH ×2 (09:00→19:16)
[2023-01-05] MEDS: LACOSAMIDE 100 MG/10 ML UDC GT SCH ×2 (09:00→20:00)
[2023-01-05] MEDS: levETIRAcetam 500 MG/5 ML LIQUID UDC GT SCH ×2 (09:00→20:20)
[2023-01-05] MEDS: TIZANIDINE HCL 4 MG TABLET GT SCH ×2 (09:04→18:31)
[2023-01-05] MEDS: METOCLOPRAMIDE HCL 10 MG TABLET GT SCH ×3 (09:04→18:31)
[2023-01-05] MEDS: REMEDY ESSENTIAL ZINC PASTE 113 GM TP SCH ×2 (09:04→21:32)
[2023-01-05 11:32] VITALS: O2SAT 98
[2023-01-05 14:50] VITALS: O2SAT 99
[2023-01-05 19:50] VITALS: O2SAT 99
[2023-01-05] MEDS: RIVAROXABAN 10 MG TABLET GT SCH (21:00)
[2023-01-05] MEDS: MELATONIN 5MG TABLET GT SCH (21:30)
[2023-01-06] MEDS: FAMOTIDINE 20 MG TABLET GT SCH ×2 (05:30→19:10)
[2023-01-06] MEDS: MAGNESIUM HYDROXIDE 30 ML LIQUID UDC GT PRN (06:16)
[2023-01-06] MEDS: HYDROGEN PEROXIDE 3% 118 ML BOTTLE TOP SCH ×2 (07:16→19:12)
[2023-01-06 08:00] VITALS: TEMP 98.3
[2023-01-06 08:28] VITALS: O2SAT 99
[2023-01-06] MEDS: levETIRAcetam 500 MG/5 ML LIQUID UDC GT SCH ×2 (09:00→20:07)
[2023-01-06] MEDS: LACOSAMIDE 100 MG/10 ML UDC GT SCH ×2 (09:00→20:07)
[2023-01-06] MEDS: REMEDY ESSENTIAL ZINC PASTE 113 GM TP SCH ×2 (09:09→20:07)
[2023-01-06] MEDS: TIZANIDINE HCL 4 MG TABLET GT SCH ×2 (09:09→19:10)
[2023-01-06] MEDS: [UNRECOGNIZED DRUG - OTHER] TP SCH (09:09)
[2023-01-06] MEDS: METOCLOPRAMIDE HCL 10 MG TABLET GT SCH ×3 (09:09→19:10)
[2023-01-06 19:55] VITALS: O2SAT 99
[2023-01-06] MEDS: MELATONIN 5MG TABLET GT SCH (20:07)
[2023-01-06] MEDS: RIVAROXABAN 10 MG TABLET GT SCH (21:00)
[2023-01-06 22:30] VITALS: TEMP 97.8
[2023-01-07] MEDS: FAMOTIDINE 20 MG TABLET GT SCH ×2 (05:23→19:01)
[2023-01-07] MEDS: BISACODYL 10 MG SUPP.RECT RC PRN (06:00)
[2023-01-07 07:50] VITALS: TEMP 97.8
[2023-01-07 07:52] VITALS: TEMP 98.6
[2023-01-07] MEDS: HYDROGEN PEROXIDE 3% 118 ML BOTTLE TOP SCH ×2 (08:22→21:43)
[2023-01-07] MEDS: LACOSAMIDE 100 MG/10 ML UDC GT SCH ×2 (08:40→19:52)
[2023-01-07] MEDS: levETIRAcetam 500 MG/5 ML LIQUID UDC GT SCH ×2 (08:40→19:52)
[2023-01-07] MEDS: METOCLOPRAMIDE HCL 10 MG TABLET GT SCH ×3 (08:40→19:01)
[2023-01-07] MEDS: REMEDY ESSENTIAL ZINC PASTE 113 GM TP SCH ×2 (08:40→21:00)
[2023-01-07] MEDS: TIZANIDINE HCL 4 MG TABLET GT SCH ×2 (08:40→19:01)
[2023-01-07 14:04] VITALS: O2SAT 98
[2023-01-07 20:28] VITALS: O2SAT 99
[2023-01-07] MEDS: RIVAROXABAN 10 MG TABLET GT SCH (21:00)
[2023-01-07] MEDS: MELATONIN 5MG TABLET GT SCH (21:00)
[2023-01-08] MEDS: FAMOTIDINE 20 MG TABLET GT SCH ×2 (05:54→19:06)
[2023-01-08 08:00] VITALS: TEMP 97.8
[2023-01-08] MEDS: levETIRAcetam 500 MG/5 ML LIQUID UDC GT SCH ×2 (08:00→20:05)
[2023-01-08] MEDS: LACOSAMIDE 100 MG/10 ML UDC GT SCH ×2 (08:00→20:05)
[2023-01-08] MEDS: METOCLOPRAMIDE HCL 10 MG TABLET GT SCH ×3 (09:15→19:06)
[2023-01-08] MEDS: TIZANIDINE HCL 4 MG TABLET GT SCH ×2 (09:15→19:06)
[2023-01-08] MEDS: [UNRECOGNIZED DRUG - OTHER] TP SCH (09:16)
[2023-01-08] MEDS: REMEDY ESSENTIAL ZINC PASTE 113 GM TP SCH ×2 (09:16→21:00)
[2023-01-08 17:41] VITALS: O2SAT 98
[2023-01-08] MEDS: HYDROGEN PEROXIDE 3% 118 ML BOTTLE TOP SCH ×2 (17:41→19:10)
[2023-01-08 20:28] VITALS: O2SAT 99
[2023-01-08] MEDS: RIVAROXABAN 10 MG TABLET GT SCH (21:00)
[2023-01-08] MEDS: MELATONIN 5MG TABLET GT SCH (21:00)
[2023-01-09] VITALS (8 sets, daily range): TEMP 96.6–97.5; O2SAT 98–99
[2023-01-09] MEDS: FAMOTIDINE 20 MG TABLET GT SCH (05:48)
[2023-01-09] MEDS: TIZANIDINE HCL 4 MG TABLET GT SCH (08:22)
[2023-01-09] MEDS: LACOSAMIDE 100 MG/10 ML UDC GT SCH ×2 (08:22→20:09)
[2023-01-09] MEDS: REMEDY ESSENTIAL ZINC PASTE 113 GM TP SCH ×2 (08:22→21:00)
[2023-01-09] MEDS: METOCLOPRAMIDE HCL 10 MG TABLET GT SCH ×2 (08:22→12:00)
[2023-01-09] MEDS: levETIRAcetam 500 MG/5 ML LIQUID UDC GT SCH ×2 (08:22→20:09)
[2023-01-09] MEDS: HYDROGEN PEROXIDE 3% 118 ML BOTTLE TOP SCH ×2 (09:00→19:16)
[2023-01-09] MEDS: MELATONIN 5MG TABLET GT SCH (21:00)
[2023-01-09] MEDS: RIVAROXABAN 10 MG TABLET GT SCH (21:00)
[2023-01-10] MEDS: FAMOTIDINE 20 MG TABLET GT SCH ×2 (06:00→19:18)
[2023-01-10 08:30] VITALS: O2SAT 99
[2023-01-10] MEDS: LACOSAMIDE 100 MG/10 ML UDC GT SCH ×2 (08:58→20:31)
[2023-01-10] MEDS: TIZANIDINE HCL 4 MG TABLET GT SCH ×2 (08:58→19:18)
[2023-01-10] MEDS: levETIRAcetam 500 MG/5 ML LIQUID UDC GT SCH ×2 (08:58→20:31)
[2023-01-10] MEDS: METOCLOPRAMIDE HCL 10 MG TABLET GT SCH ×3 (08:58→19:18)
[2023-01-10] MEDS: [UNRECOGNIZED DRUG - OTHER] TP SCH (08:59)
[2023-01-10] MEDS: REMEDY ESSENTIAL ZINC PASTE 113 GM TP SCH ×2 (08:59→21:00)
[2023-01-10 09:10] VITALS: TEMP 97.6
[2023-01-10] MEDS: HYDROGEN PEROXIDE 3% 118 ML BOTTLE TOP SCH ×2 (09:25→21:46)
[2023-01-10 11:55] VITALS: O2SAT 99
[2023-01-10 20:00] VITALS: TEMP 97.9
[2023-01-10] MEDS: MELATONIN 5MG TABLET GT SCH (21:00)
[2023-01-10] MEDS: RIVAROXABAN 10 MG TABLET GT SCH (21:00)
[2023-01-10] MEDS: VITAL AF 1.2 1,000 ML LIQUID GT PRN (22:56)
[2023-01-11] VITALS (7 sets, daily range): TEMP 98.2–98.6; O2SAT 98–99
[2023-01-11] MEDS: FAMOTIDINE 20 MG TABLET GT SCH ×2 (05:18→18:44)
[2023-01-11] MEDS: levETIRAcetam 500 MG/5 ML LIQUID UDC GT SCH ×2 (08:19→20:20)
[2023-01-11] MEDS: LACOSAMIDE 100 MG/10 ML UDC GT SCH ×2 (08:19→20:20)
[2023-01-11] MEDS: METOCLOPRAMIDE HCL 10 MG TABLET GT SCH ×3 (08:20→18:44)
[2023-01-11] MEDS: TIZANIDINE HCL 4 MG TABLET GT SCH ×2 (08:20→18:44)
[2023-01-11] MEDS: REMEDY ESSENTIAL ZINC PASTE 113 GM TP SCH ×2 (08:20→21:00)
[2023-01-11] MEDS: HYDROGEN PEROXIDE 3% 118 ML BOTTLE TOP SCH ×2 (09:00→19:12)
[2023-01-11] MEDS: MELATONIN 5MG TABLET GT SCH (21:00)
[2023-01-11] MEDS: RIVAROXABAN 10 MG TABLET GT SCH (21:00)
[2023-01-12] MEDS: VITAL AF 1.2 1,000 ML LIQUID GT PRN (04:42)
[2023-01-12] MEDS: BISACODYL 10 MG SUPP.RECT RC PRN (05:41)
[2023-01-12] MEDS: FAMOTIDINE 20 MG TABLET GT SCH ×2 (05:41→19:01)
[2023-01-12] MEDS: levETIRAcetam 500 MG/5 ML LIQUID UDC GT SCH ×2 (08:24→20:00)
[2023-01-12] MEDS: METOCLOPRAMIDE HCL 10 MG TABLET GT SCH ×3 (08:25→19:01)
[2023-01-12] MEDS: LACOSAMIDE 100 MG/10 ML UDC GT SCH ×2 (08:25→20:00)
[2023-01-12] MEDS: TIZANIDINE HCL 4 MG TABLET GT SCH ×2 (08:25→19:01)
[2023-01-12] MEDS: [UNRECOGNIZED DRUG - OTHER] TP SCH (08:25)
[2023-01-12] MEDS: REMEDY ESSENTIAL ZINC PASTE 113 GM TP SCH ×2 (08:27→21:59)
[2023-01-12 08:45] VITALS: O2SAT 98
[2023-01-12] MEDS: HYDROGEN PEROXIDE 3% 118 ML BOTTLE TOP SCH ×2 (09:00→19:22)
[2023-01-12 09:57] VITALS: TEMP 97.2
[2023-01-12 19:55] VITALS: O2SAT 99
[2023-01-12 20:00] VITALS: TEMP 98.1
[2023-01-12] MEDS: RIVAROXABAN 10 MG TABLET GT SCH (21:00)
[2023-01-12] MEDS: MELATONIN 5MG TABLET GT SCH (21:59)
[2023-01-13] MEDS: FAMOTIDINE 20 MG TABLET GT SCH ×2 (05:10→18:58)
[2023-01-13 08:00] VITALS: TEMP 97.7; O2SAT 98
[2023-01-13] MEDS: LACOSAMIDE 100 MG/10 ML UDC GT SCH ×2 (08:32→19:54)
[2023-01-13] MEDS: REMEDY ESSENTIAL ZINC PASTE 113 GM TP SCH ×2 (08:32→21:00)
[2023-01-13] MEDS: TIZANIDINE HCL 4 MG TABLET GT SCH ×2 (08:32→18:58)
[2023-01-13] MEDS: levETIRAcetam 500 MG/5 ML LIQUID UDC GT SCH ×2 (08:32→19:54)
[2023-01-13] MEDS: METOCLOPRAMIDE HCL 10 MG TABLET GT SCH ×3 (08:32→18:58)
[2023-01-13] MEDS: HYDROGEN PEROXIDE 3% 118 ML BOTTLE TOP SCH ×2 (09:00→19:09)
[2023-01-13] MEDS: VITAL AF 1.2 1,000 ML LIQUID GT PRN (11:13)
[2023-01-13 12:00] VITALS: O2SAT 99
[2023-01-13 14:54] VITALS: O2SAT 99
[2023-01-13 19:40] VITALS: O2SAT 99
[2023-01-13 20:00] VITALS: TEMP 98.4
[2023-01-13] MEDS: MELATONIN 5MG TABLET GT SCH (21:00)
[2023-01-13] MEDS: RIVAROXABAN 10 MG TABLET GT SCH (21:59)
[2023-01-14] MEDS: FAMOTIDINE 20 MG TABLET GT SCH ×2 (05:58→18:52)
[2023-01-14 08:05] VITALS: TEMP 97.8
[2023-01-14] MEDS: levETIRAcetam 500 MG/5 ML LIQUID UDC GT SCH ×2 (08:07→20:10)
[2023-01-14] MEDS: TIZANIDINE HCL 4 MG TABLET GT SCH ×2 (08:08→18:52)
[2023-01-14] MEDS: METOCLOPRAMIDE HCL 10 MG TABLET GT SCH ×3 (08:08→18:52)
[2023-01-14] MEDS: REMEDY ESSENTIAL ZINC PASTE 113 GM TP SCH ×2 (08:09→21:00)
[2023-01-14] MEDS: [UNRECOGNIZED DRUG - OTHER] TP SCH (08:09)
[2023-01-14] MEDS: LACOSAMIDE 100 MG/10 ML UDC GT SCH ×2 (08:13→20:10)
[2023-01-14 08:30] VITALS: O2SAT 98
[2023-01-14] MEDS: HYDROGEN PEROXIDE 3% 118 ML BOTTLE TOP SCH ×2 (09:11→19:05)
[2023-01-14 11:00] VITALS: O2SAT 99
[2023-01-14] MEDS: VITAL AF 1.2 1,000 ML LIQUID GT PRN (14:58)
[2023-01-14 15:08] VITALS: O2SAT 99
[2023-01-14 19:25] VITALS: O2SAT 99
[2023-01-14 20:00] VITALS: TEMP 98.5
[2023-01-14] MEDS: RIVAROXABAN 10 MG TABLET GT SCH (21:00)
[2023-01-14] MEDS: MELATONIN 5MG TABLET GT SCH (21:00)
[2023-01-15] MEDS: FAMOTIDINE 20 MG TABLET GT SCH ×2 (05:38→19:06)
[2023-01-15] MEDS: HYDROGEN PEROXIDE 3% 118 ML BOTTLE TOP SCH ×2 (07:08→21:05)
[2023-01-15 08:29] LABS: BASOPHILS % (AUTO) 0.6 % (0.0-2.0); EOSINOPHILS # (AUTO) 0.2 K/uL (0.0-0.7); EOSINOPHILS % (AUTO) 3.8 % (0.0-7.0); HEMATOCRIT 37.9 % (31.2-41.9); HEMOGLOBIN 12.9 g/dL (10.9-14.3); LYMPHOCYTES # (AUTO) 1.6 K/uL (0.8-4.8); LYMPHOCYTES % (AUTO) 24.8 % (20.5-51.5); MEAN CORPUSCULAR HEMOGLOBIN 30.5 uug (24.7-32.8); MEAN CORPUSCULAR HGB CONC 34 g/dL (32.3-35.6); MEAN CORPUSCULAR VOLUME 89.7 fL (75.5-95.3); MONOCYTES # (AUTO) 0.4 K/uL (0.1-1.30); NEUTROPHILS # (AUTO) 4.1 K/uL (1.8-8.9); NEUTROPHILS % (AUTO) 64.8 % (38.5-71.5); PLATELET COUNT (AUTO) 277 K/uL (179-408); RED BLOOD CELL COUNT(AUTO) 4.23 MIL/uL (3.63-4.92); WHITE BLOOD COUNT (AUTO) 6.4 K/uL (3.8-11.8)
[2023-01-15 08:34] LABS: DIFFERENTIAL COMMENT 1
[2023-01-15 08:41] LABS: CALCIUM 9.9 mg/dL (8.5-10.1); CREATININE 0.7 mg/dL (0.6-1.3); MAGNESIUM 2.4 mg/dL (1.8-2.4); PHOSPHOROUS 4.1 mg/dL (2.5-4.9); POTASSIUM 4.7 mmol/L (3.5-5.1)
[2023-01-15 08:45] VITALS: O2SAT 98
[2023-01-15] MEDS: REMEDY ESSENTIAL ZINC PASTE 113 GM TP SCH ×2 (08:51→21:00)
[2023-01-15] MEDS: TIZANIDINE HCL 4 MG TABLET GT SCH ×2 (08:51→19:06)
[2023-01-15] MEDS: METOCLOPRAMIDE HCL 10 MG TABLET GT SCH ×3 (08:51→19:06)
[2023-01-15] MEDS: LACOSAMIDE 100 MG/10 ML UDC GT SCH ×2 (08:51→20:04)
[2023-01-15] MEDS: levETIRAcetam 500 MG/5 ML LIQUID UDC GT SCH ×2 (08:51→20:04)
[2023-01-15 09:53] VITALS: TEMP 97.2
[2023-01-15 20:31] VITALS: O2SAT 99
[2023-01-15] MEDS: MELATONIN 5MG TABLET GT SCH (21:00)
[2023-01-15] MEDS: RIVAROXABAN 10 MG TABLET GT SCH (21:00)
[2023-01-15] MEDS: VITAL AF 1.2 1,000 ML LIQUID GT PRN (21:00)
[2023-01-16] MEDS: FAMOTIDINE 20 MG TABLET GT SCH ×3 (06:23→19:30)
[2023-01-16] MEDS: METOCLOPRAMIDE HCL 10 MG TABLET GT SCH ×4 (08:10→19:30)
[2023-01-16] MEDS: levETIRAcetam 500 MG/5 ML LIQUID UDC GT SCH ×2 (08:10→20:42)
[2023-01-16] MEDS: LACOSAMIDE 100 MG/10 ML UDC GT SCH ×2 (08:10→20:42)
[2023-01-16] MEDS: TIZANIDINE HCL 4 MG TABLET GT SCH ×3 (08:11→19:30)
[2023-01-16 08:12] VITALS: TEMP 98.6
[2023-01-16] MEDS: REMEDY ESSENTIAL ZINC PASTE 113 GM TP SCH ×2 (08:12→21:00)
[2023-01-16] MEDS: [UNRECOGNIZED DRUG - OTHER] TP SCH (08:12)
[2023-01-16 09:39] VITALS: O2SAT 98
[2023-01-16] MEDS: HYDROGEN PEROXIDE 3% 118 ML BOTTLE TOP SCH ×2 (09:44→19:10)
[2023-01-16 19:45] VITALS: O2SAT 99
[2023-01-16] MEDS: MELATONIN 5MG TABLET GT SCH (21:00)
[2023-01-16] MEDS: RIVAROXABAN 10 MG TABLET GT SCH (21:00)
[2023-01-17] MEDS: VITAL AF 1.2 1,000 ML LIQUID GT PRN (04:00)
[2023-01-17] MEDS: FAMOTIDINE 20 MG TABLET GT SCH ×3 (05:51→21:30)
[2023-01-17 07:20] VITALS: TEMP 98.4
[2023-01-17] MEDS: HYDROGEN PEROXIDE 3% 118 ML BOTTLE TOP SCH ×2 (08:28→21:00)
[2023-01-17] MEDS: levETIRAcetam 500 MG/5 ML LIQUID UDC GT SCH ×2 (08:31→20:12)
[2023-01-17] MEDS: LACOSAMIDE 100 MG/10 ML UDC GT SCH ×2 (08:32→20:12)
[2023-01-17] MEDS: TIZANIDINE HCL 4 MG TABLET GT SCH ×3 (08:32→21:30)
[2023-01-17] MEDS: METOCLOPRAMIDE HCL 10 MG TABLET GT SCH ×3 (08:32→18:30)
[2023-01-17] MEDS: REMEDY ESSENTIAL ZINC PASTE 113 GM TP SCH ×2 (08:33→21:00)
[2023-01-17 14:17] VITALS: O2SAT 98
[2023-01-17 20:00] VITALS: TEMP 97.7
[2023-01-17 21:00] VITALS: O2SAT 99
[2023-01-17] MEDS: RIVAROXABAN 10 MG TABLET GT SCH (21:00)
[2023-01-17] MEDS: MELATONIN 5MG TABLET GT SCH (21:00)
[2023-01-18] MEDS: FAMOTIDINE 20 MG TABLET GT SCH ×2 (05:55→18:29)
[2023-01-18 08:10] VITALS: O2SAT 98
[2023-01-18 08:12] VITALS: TEMP 98.5
[2023-01-18] MEDS: TIZANIDINE HCL 4 MG TABLET GT SCH ×2 (08:57→18:29)
[2023-01-18] MEDS: levETIRAcetam 500 MG/5 ML LIQUID UDC GT SCH ×2 (08:57→19:57)
[2023-01-18] MEDS: LACOSAMIDE 100 MG/10 ML UDC GT SCH ×2 (08:57→19:57)
[2023-01-18] MEDS: METOCLOPRAMIDE HCL 10 MG TABLET GT SCH ×3 (08:57→18:30)
[2023-01-18] MEDS: HYDROGEN PEROXIDE 3% 118 ML BOTTLE TOP SCH ×2 (09:00→19:17)
[2023-01-18] MEDS: REMEDY ESSENTIAL ZINC PASTE 113 GM TP SCH ×2 (09:00→21:50)
[2023-01-18] MEDS: [UNRECOGNIZED DRUG - OTHER] TP SCH (09:00)
[2023-01-18 14:26] VITALS: O2SAT 99
[2023-01-18 19:55] VITALS: O2SAT 99
[2023-01-18 20:00] VITALS: TEMP 97.8
[2023-01-18] MEDS: MELATONIN 5MG TABLET GT SCH (21:50)
[2023-01-18] MEDS: RIVAROXABAN 10 MG TABLET GT SCH (21:50)
[2023-01-19] MEDS: FAMOTIDINE 20 MG TABLET GT SCH ×2 (05:21→18:39)
[2023-01-19 08:01] VITALS: TEMP 98.6
[2023-01-19] MEDS: TIZANIDINE HCL 4 MG TABLET GT SCH ×2 (08:58→18:39)
[2023-01-19] MEDS: LACOSAMIDE 100 MG/10 ML UDC GT SCH ×2 (08:58→20:00)
[2023-01-19] MEDS: METOCLOPRAMIDE HCL 10 MG TABLET GT SCH ×3 (08:58→18:39)
[2023-01-19] MEDS: levETIRAcetam 500 MG/5 ML LIQUID UDC GT SCH ×2 (08:58→20:16)
[2023-01-19] MEDS: REMEDY ESSENTIAL ZINC PASTE 113 GM TP SCH ×2 (08:58→20:16)
[2023-01-19 09:00] VITALS: O2SAT 98
[2023-01-19] MEDS: HYDROGEN PEROXIDE 3% 118 ML BOTTLE TOP SCH ×2 (09:00→19:29)
[2023-01-19 10:45] VITALS: O2SAT 98
[2023-01-19 16:10] VITALS: O2SAT 98
[2023-01-19] MEDS: VITAL AF 1.2 1,000 ML LIQUID GT PRN (16:17)
[2023-01-19 19:40] VITALS: O2SAT 98
[2023-01-19 20:00] VITALS: TEMP 98.6
[2023-01-19] MEDS: MELATONIN 5MG TABLET GT SCH (20:16)
[2023-01-19] MEDS: RIVAROXABAN 10 MG TABLET GT SCH (21:00)
[2023-01-20] MEDS: ACETAMINOPHEN 650 MG/20 ML UDC- SA PATIENTS-PAIN ONLY GT PRN (03:02)
[2023-01-20] MEDS: LORAZEPAM 2 MG/1 ML VIAL IM PRN (05:16)
[2023-01-20] MEDS: FAMOTIDINE 20 MG TABLET GT SCH ×2 (06:22→18:41)
[2023-01-20] MEDS: HYDROGEN PEROXIDE 3% 118 ML BOTTLE TOP SCH ×2 (07:23→19:42)
[2023-01-20] MEDS: [UNRECOGNIZED DRUG - OTHER] TP SCH (08:50)
[2023-01-20] MEDS: LACOSAMIDE 100 MG/10 ML UDC GT SCH ×2 (08:50→20:10)
[2023-01-20] MEDS: TIZANIDINE HCL 4 MG TABLET GT SCH ×2 (08:50→18:41)
[2023-01-20] MEDS: levETIRAcetam 500 MG/5 ML LIQUID UDC GT SCH ×2 (08:50→20:10)
[2023-01-20] MEDS: METOCLOPRAMIDE HCL 10 MG TABLET GT SCH ×3 (08:50→18:41)
[2023-01-20] MEDS: REMEDY ESSENTIAL ZINC PASTE 113 GM TP SCH ×2 (08:51→21:00)
[2023-01-20 09:00] VITALS: TEMP 98.8
[2023-01-20 09:03] VITALS: O2SAT 98
[2023-01-20 20:00] VITALS: TEMP 97.8
[2023-01-20 20:30] VITALS: O2SAT 98
[2023-01-20] MEDS: RIVAROXABAN 10 MG TABLET GT SCH (21:00)
[2023-01-20] MEDS: MELATONIN 5MG TABLET GT SCH (21:00)
[2023-01-21] MEDS: FAMOTIDINE 20 MG TABLET GT SCH ×2 (05:46→19:13)
[2023-01-21 08:08] VITALS: TEMP 97.5
[2023-01-21] MEDS: levETIRAcetam 500 MG/5 ML LIQUID UDC GT SCH ×2 (08:23→20:27)
[2023-01-21] MEDS: LACOSAMIDE 100 MG/10 ML UDC GT SCH ×2 (08:23→20:27)
[2023-01-21] MEDS: TIZANIDINE HCL 4 MG TABLET GT SCH ×2 (08:23→19:13)
[2023-01-21] MEDS: METOCLOPRAMIDE HCL 10 MG TABLET GT SCH ×3 (08:23→19:13)
[2023-01-21] MEDS: REMEDY ESSENTIAL ZINC PASTE 113 GM TP SCH ×2 (08:24→20:38)
[2023-01-21] MEDS: HYDROGEN PEROXIDE 3% 118 ML BOTTLE TOP SCH ×2 (09:18→19:10)
[2023-01-21 09:24] VITALS: O2SAT 98
[2023-01-21 19:50] VITALS: O2SAT 98
[2023-01-21 20:22] VITALS: TEMP 98
[2023-01-21] MEDS: MELATONIN 5MG TABLET GT SCH (20:38)
[2023-01-21] MEDS: RIVAROXABAN 10 MG TABLET GT SCH (21:57)
[2023-01-22] VITALS (7 sets, daily range): TEMP 97.8–98.5; O2SAT 98
[2023-01-22] MEDS: FAMOTIDINE 20 MG TABLET GT SCH ×2 (06:50→18:46)
[2023-01-22] MEDS: VITAL AF 1.2 1,000 ML LIQUID GT PRN (07:00)
[2023-01-22] MEDS: LACOSAMIDE 100 MG/10 ML UDC GT SCH ×2 (08:01→20:01)
[2023-01-22] MEDS: levETIRAcetam 500 MG/5 ML LIQUID UDC GT SCH ×2 (08:01→20:01)
[2023-01-22] MEDS: REMEDY ESSENTIAL ZINC PASTE 113 GM TP SCH ×2 (08:08→21:00)
[2023-01-22] MEDS: TIZANIDINE HCL 4 MG TABLET GT SCH ×2 (08:08→18:46)
[2023-01-22] MEDS: METOCLOPRAMIDE HCL 10 MG TABLET GT SCH ×3 (08:08→18:46)
[2023-01-22] MEDS: [UNRECOGNIZED DRUG - OTHER] TP SCH (08:08)
[2023-01-22] MEDS: HYDROGEN PEROXIDE 3% 118 ML BOTTLE TOP SCH ×2 (09:00→19:06)
[2023-01-22] MEDS: MELATONIN 5MG TABLET GT SCH (21:00)
[2023-01-22] MEDS: RIVAROXABAN 10 MG TABLET GT SCH (21:00)
[2023-01-23] MEDS: FAMOTIDINE 20 MG TABLET GT SCH ×2 (05:38→18:47)
[2023-01-23 07:28] VITALS: TEMP 98.3
[2023-01-23 08:05] VITALS: O2SAT 98
[2023-01-23] MEDS: LACOSAMIDE 100 MG/10 ML UDC GT SCH ×2 (08:23→20:22)
[2023-01-23] MEDS: levETIRAcetam 500 MG/5 ML LIQUID UDC GT SCH ×2 (08:23→20:22)
[2023-01-23] MEDS: TIZANIDINE HCL 4 MG TABLET GT SCH ×2 (08:33→18:47)
[2023-01-23] MEDS: METOCLOPRAMIDE HCL 10 MG TABLET GT SCH ×3 (08:33→18:47)
[2023-01-23] MEDS: REMEDY ESSENTIAL ZINC PASTE 113 GM TP SCH ×2 (08:33→21:00)
[2023-01-23] MEDS: HYDROGEN PEROXIDE 3% 118 ML BOTTLE TOP SCH ×2 (08:34→19:12)
[2023-01-23 12:00] VITALS: O2SAT 99
[2023-01-23 17:32] VITALS: O2SAT 99
[2023-01-23 19:40] VITALS: TEMP 98.2
[2023-01-23 20:08] VITALS: O2SAT 98
[2023-01-23] MEDS: RIVAROXABAN 10 MG TABLET GT SCH (21:00)
[2023-01-23] MEDS: MELATONIN 5MG TABLET GT SCH (21:00)
[2023-01-24] MEDS: FAMOTIDINE 20 MG TABLET GT SCH ×2 (05:54→19:13)
[2023-01-24 07:14] VITALS: TEMP 98.5
[2023-01-24] MEDS: HYDROGEN PEROXIDE 3% 118 ML BOTTLE TOP SCH ×2 (07:26→20:18)
[2023-01-24 10:42] VITALS: O2SAT 98
[2023-01-24] MEDS: REMEDY ESSENTIAL ZINC PASTE 113 GM TP SCH ×2 (11:07→21:00)
[2023-01-24] MEDS: METOCLOPRAMIDE HCL 10 MG TABLET GT SCH ×3 (11:07→19:13)
[2023-01-24] MEDS: LACOSAMIDE 100 MG/10 ML UDC GT SCH ×2 (11:07→20:00)
[2023-01-24] MEDS: [UNRECOGNIZED DRUG - OTHER] TP SCH (11:07)
[2023-01-24] MEDS: levETIRAcetam 500 MG/5 ML LIQUID UDC GT SCH ×2 (11:07→20:00)
[2023-01-24] MEDS: TIZANIDINE HCL 4 MG TABLET GT SCH ×2 (11:07→19:13)
[2023-01-24 11:45] VITALS: O2SAT 98
[2023-01-24 13:50] VITALS: O2SAT 98
[2023-01-24 15:50] VITALS: O2SAT 98
[2023-01-24 20:00] VITALS: TEMP 98.7
[2023-01-24] MEDS: MELATONIN 5MG TABLET GT SCH (21:00)
[2023-01-24] MEDS: RIVAROXABAN 10 MG TABLET GT SCH (21:00)
[2023-01-25] VITALS (8 sets, daily range): TEMP 97.7–98.8; O2SAT 97–99
[2023-01-25] MEDS: FAMOTIDINE 20 MG TABLET GT SCH ×2 (05:46→18:43)
[2023-01-25] MEDS: LACOSAMIDE 100 MG/10 ML UDC GT SCH ×2 (08:12→20:00)
[2023-01-25] MEDS: METOCLOPRAMIDE HCL 10 MG TABLET GT SCH ×3 (08:12→18:43)
[2023-01-25] MEDS: levETIRAcetam 500 MG/5 ML LIQUID UDC GT SCH ×2 (08:12→20:00)
[2023-01-25] MEDS: TIZANIDINE HCL 4 MG TABLET GT SCH ×2 (08:13→18:44)
[2023-01-25] MEDS: REMEDY ESSENTIAL ZINC PASTE 113 GM TP SCH ×2 (08:13→21:00)
[2023-01-25] MEDS: HYDROGEN PEROXIDE 3% 118 ML BOTTLE TOP SCH ×2 (09:00→19:28)
[2023-01-25] MEDS: RIVAROXABAN 10 MG TABLET GT SCH (21:00)
[2023-01-25] MEDS: MELATONIN 5MG TABLET GT SCH (21:00)
[2023-01-25] MEDS: VITAL AF 1.2 1,000 ML LIQUID GT PRN (22:38)
[2023-01-26] MEDS: FAMOTIDINE 20 MG TABLET GT SCH ×2 (05:17→18:54)
[2023-01-26 07:24] VITALS: TEMP 98.3
[2023-01-26] MEDS: HYDROGEN PEROXIDE 3% 118 ML BOTTLE TOP SCH ×2 (07:44→21:39)
[2023-01-26] MEDS: LACOSAMIDE 100 MG/10 ML UDC GT SCH ×2 (08:20→20:46)
[2023-01-26] MEDS: levETIRAcetam 500 MG/5 ML LIQUID UDC GT SCH ×2 (08:20→20:46)
[2023-01-26] MEDS: METOCLOPRAMIDE HCL 10 MG TABLET GT SCH ×3 (08:21→18:54)
[2023-01-26] MEDS: REMEDY ESSENTIAL ZINC PASTE 113 GM TP SCH ×2 (08:22→20:47)
[2023-01-26] MEDS: TIZANIDINE HCL 4 MG TABLET GT SCH ×2 (08:22→18:54)
[2023-01-26] MEDS: [UNRECOGNIZED DRUG - OTHER] TP SCH (08:22)
[2023-01-26 10:50] VITALS: O2SAT 97
[2023-01-26] MEDS: MAGNESIUM HYDROXIDE 30 ML LIQUID UDC GT PRN (14:46)
[2023-01-26 20:00] VITALS: TEMP 98.2
[2023-01-26] MEDS: MELATONIN 5MG TABLET GT SCH (21:00)
[2023-01-26] MEDS: RIVAROXABAN 10 MG TABLET GT SCH (21:00)
[2023-01-26 21:39] VITALS: O2SAT 99
[2023-01-27] MEDS: FAMOTIDINE 20 MG TABLET GT SCH ×2 (06:01→18:49)
[2023-01-27] MEDS: BISACODYL 10 MG SUPP.RECT RC PRN (06:18)
[2023-01-27] MEDS: levETIRAcetam 500 MG/5 ML LIQUID UDC GT SCH ×2 (08:23→20:00)
[2023-01-27] MEDS: METOCLOPRAMIDE HCL 10 MG TABLET GT SCH ×3 (08:23→18:49)
[2023-01-27] MEDS: TIZANIDINE HCL 4 MG TABLET GT SCH ×2 (08:23→18:49)
[2023-01-27] MEDS: LACOSAMIDE 100 MG/10 ML UDC GT SCH ×2 (08:23→20:00)
[2023-01-27] MEDS: HYDROGEN PEROXIDE 3% 118 ML BOTTLE TOP SCH ×2 (09:00→21:50)
[2023-01-27] MEDS: REMEDY ESSENTIAL ZINC PASTE 113 GM TP SCH ×2 (09:59→21:00)
[2023-01-27 10:46] VITALS: TEMP 98.5
[2023-01-27 10:50] VITALS: O2SAT 97
[2023-01-27 20:00] VITALS: TEMP 97.4
[2023-01-27] MEDS: RIVAROXABAN 10 MG TABLET GT SCH (21:00)
[2023-01-27] MEDS: MELATONIN 5MG TABLET GT SCH (21:00)
[2023-01-28 00:20] VITALS: O2SAT 98
[2023-01-28] MEDS: FAMOTIDINE 20 MG TABLET GT SCH ×2 (05:26→18:40)
[2023-01-28 07:51] VITALS: TEMP 98.6
[2023-01-28 08:25] VITALS: O2SAT 98
[2023-01-28] MEDS: REMEDY ESSENTIAL ZINC PASTE 113 GM TP SCH ×2 (08:49→21:00)
[2023-01-28] MEDS: LACOSAMIDE 100 MG/10 ML UDC GT SCH ×2 (08:49→20:00)
[2023-01-28] MEDS: TIZANIDINE HCL 4 MG TABLET GT SCH ×2 (08:49→18:40)
[2023-01-28] MEDS: METOCLOPRAMIDE HCL 10 MG TABLET GT SCH ×3 (08:49→18:40)
[2023-01-28] MEDS: levETIRAcetam 500 MG/5 ML LIQUID UDC GT SCH ×2 (08:49→20:00)
[2023-01-28] MEDS: HYDROGEN PEROXIDE 3% 118 ML BOTTLE TOP SCH ×2 (09:24→19:12)
[2023-01-28] MEDS: [UNRECOGNIZED DRUG - OTHER] TP SCH (09:49)
[2023-01-28 20:20] VITALS: O2SAT 99
[2023-01-28] MEDS: RIVAROXABAN 10 MG TABLET GT SCH (21:00)
[2023-01-28] MEDS: MELATONIN 5MG TABLET GT SCH (21:00)
[2023-01-28 21:10] VITALS: TEMP 98
[2023-01-29] MEDS: FAMOTIDINE 20 MG TABLET GT SCH ×2 (05:22→18:46)
[2023-01-29 07:14] LABS: BASOPHILS % (AUTO) 0.3 % (0.0-2.0); EOSINOPHILS # (AUTO) 0.3 K/uL (0.0-0.7); EOSINOPHILS % (AUTO) 2.7 % (0.0-7.0); HEMATOCRIT 35.6 % (31.2-41.9); HEMOGLOBIN 12.2 g/dL (10.9-14.3); LYMPHOCYTES # (AUTO) 1.3 K/uL (0.8-4.8); LYMPHOCYTES % (AUTO) 12.6 % (20.5-51.5); MEAN CORPUSCULAR HEMOGLOBIN 30.4 uug (24.7-32.8); MEAN CORPUSCULAR HGB CONC 34 g/dL (32.3-35.6); MONOCYTES # (AUTO) 0.4 K/uL (0.1-1.30); NEUTROPHILS # (AUTO) 8.3 K/uL (1.8-8.9); NEUTROPHILS % (AUTO) 80.4 % (38.5-71.5); PLATELET COUNT (AUTO) 251 K/uL (179-408); RED CELL DISTRIBUTION WIDTH 12.8 % (12.3-17.7); WHITE BLOOD COUNT (AUTO) 10.3 K/uL (3.8-11.8)
[2023-01-29 07:21] LABS: CALCIUM 8.6 mg/dL (8.5-10.1); CARBON DIOXIDE 28 mmol/L (21-32); CHLORIDE 105 mmol/L (98-107); CREATININE 0.5 mg/dL (0.6-1.3); GLUCOSE 104 mg/dL (74-106); PHOSPHOROUS 4.3 mg/dL (2.5-4.9); POTASSIUM 3.9 mmol/L (3.5-5.1); SODIUM SERUM 141 mmol/L (136-145); UREA NITROGEN, BLOOD 11 mg/dL (7-18)
[2023-01-29 07:28] LABS: DIFFERENTIAL COMMENT 1
[2023-01-29 08:00] VITALS: O2SAT 99
[2023-01-29] MEDS: LACOSAMIDE 100 MG/10 ML UDC GT SCH ×2 (08:02→20:02)
[2023-01-29] MEDS: METOCLOPRAMIDE HCL 10 MG TABLET GT SCH ×3 (08:02→18:46)
[2023-01-29] MEDS: TIZANIDINE HCL 4 MG TABLET GT SCH ×2 (08:02→18:46)
[2023-01-29] MEDS: levETIRAcetam 500 MG/5 ML LIQUID UDC GT SCH ×2 (08:02→20:02)
[2023-01-29] MEDS: REMEDY ESSENTIAL ZINC PASTE 113 GM TP SCH ×2 (08:03→21:00)
[2023-01-29 08:06] VITALS: TEMP 98.5
[2023-01-29] MEDS: HYDROGEN PEROXIDE 3% 118 ML BOTTLE TOP SCH ×2 (09:00→19:05)
[2023-01-29 09:36] LABS: ALBUMIN 3.4 g/dL (3.4-5.0); BILIRUBIN,DIRECT 0.1 mg/dL (0.0-0.2); BILIRUBIN,TOTAL 0.2 mg/dL (0.2-1.0); TOTAL PROTEIN, SERUM 7.5 g/dL (6.4-8.2)
[2023-01-29 11:10] VITALS: O2SAT 99
[2023-01-29] MEDS: VITAL AF 1.2 1,000 ML LIQUID GT PRN (13:52)
[2023-01-29 15:10] VITALS: O2SAT 99
[2023-01-29 20:15] VITALS: O2SAT 99
[2023-01-29 20:20] VITALS: TEMP 98.3
[2023-01-29] MEDS: RIVAROXABAN 10 MG TABLET GT SCH (21:00)
[2023-01-29] MEDS: MELATONIN 5MG TABLET GT SCH (21:00)
[2023-01-30] MEDS: FAMOTIDINE 20 MG TABLET GT SCH ×2 (05:54→18:57)
[2023-01-30 07:21] VITALS: TEMP 98.9
[2023-01-30] MEDS: HYDROGEN PEROXIDE 3% 118 ML BOTTLE TOP SCH ×2 (07:28→21:26)
[2023-01-30] MEDS: TIZANIDINE HCL 4 MG TABLET GT SCH ×2 (08:53→18:57)
[2023-01-30] MEDS: levETIRAcetam 500 MG/5 ML LIQUID UDC GT SCH ×2 (08:53→20:13)
[2023-01-30] MEDS: METOCLOPRAMIDE HCL 10 MG TABLET GT SCH ×3 (08:53→18:57)
[2023-01-30] MEDS: LACOSAMIDE 100 MG/10 ML UDC GT SCH ×2 (08:53→20:13)
[2023-01-30] MEDS: REMEDY ESSENTIAL ZINC PASTE 113 GM TP SCH ×3 (08:53→21:00)
[2023-01-30] MEDS: [UNRECOGNIZED DRUG - OTHER] TP SCH (08:53)
[2023-01-30 10:50] VITALS: O2SAT 99
[2023-01-30] MEDS: VITAL AF 1.2 1,000 ML LIQUID GT PRN (16:21)
[2023-01-30 20:00] VITALS: TEMP 97.5
[2023-01-30] MEDS: RIVAROXABAN 10 MG TABLET GT SCH (21:00)
[2023-01-30] MEDS: MELATONIN 5MG TABLET GT SCH (21:00)
[2023-01-30 21:31] VITALS: O2SAT 99
[2023-01-31] MEDS: BISACODYL 10 MG SUPP.RECT RC PRN (05:15)
[2023-01-31] MEDS: FAMOTIDINE 20 MG TABLET GT SCH ×2 (05:15→19:03)
[2023-01-31 07:21] VITALS: TEMP 98.6
[2023-01-31] MEDS: LACOSAMIDE 100 MG/10 ML UDC GT SCH ×2 (08:00→20:07)
[2023-01-31] MEDS: levETIRAcetam 500 MG/5 ML LIQUID UDC GT SCH ×2 (08:00→19:56)
[2023-01-31] MEDS: HYDROGEN PEROXIDE 3% 118 ML BOTTLE TOP SCH ×2 (08:21→19:12)
[2023-01-31] MEDS: TIZANIDINE HCL 4 MG TABLET GT SCH ×2 (09:00→19:03)
[2023-01-31] MEDS: METOCLOPRAMIDE HCL 10 MG TABLET GT SCH ×3 (09:00→19:03)
[2023-01-31] MEDS: REMEDY ESSENTIAL ZINC PASTE 113 GM TP SCH ×4 (09:00→20:07)
[2023-01-31 16:36] VITALS: O2SAT 98
[2023-01-31] MEDS: RIVAROXABAN 10 MG TABLET GT SCH (21:00)
[2023-01-31] MEDS: MELATONIN 5MG TABLET GT SCH (21:00)
[2023-02-01] MEDS: VITAL AF 1.2 1,000 ML LIQUID GT PRN (01:21)
[2023-02-01 01:29] VITALS: O2SAT 99
[2023-02-01] MEDS: FAMOTIDINE 20 MG TABLET GT SCH ×2 (06:02→18:48)
[2023-02-01] MEDS: HYDROGEN PEROXIDE 3% 118 ML BOTTLE TOP SCH ×2 (07:25→19:12)
[2023-02-01 07:29] VITALS: TEMP 98.2
[2023-02-01] MEDS: LACOSAMIDE 100 MG/10 ML UDC GT SCH ×2 (08:18→20:07)
[2023-02-01] MEDS: levETIRAcetam 500 MG/5 ML LIQUID UDC GT SCH ×2 (08:18→20:07)
[2023-02-01] MEDS: TIZANIDINE HCL 4 MG TABLET GT SCH ×2 (08:18→18:48)
[2023-02-01] MEDS: METOCLOPRAMIDE HCL 10 MG TABLET GT SCH ×3 (08:18→18:48)
[2023-02-01] MEDS: REMEDY ESSENTIAL ZINC PASTE 113 GM TP SCH ×4 (08:21→21:00)
[2023-02-01] MEDS: [UNRECOGNIZED DRUG - OTHER] TP SCH (08:21)
[2023-02-01 08:45] VITALS: O2SAT 99
[2023-02-01 20:00] VITALS: TEMP 96
[2023-02-01] MEDS: RIVAROXABAN 10 MG TABLET GT SCH (21:00)
[2023-02-01] MEDS: MELATONIN 5MG TABLET GT SCH (21:00)
[2023-02-02 01:20] VITALS: O2SAT 99
[2023-02-02] MEDS: FAMOTIDINE 20 MG TABLET GT SCH ×2 (05:11→19:00)
[2023-02-02 07:34] VITALS: TEMP 98.8
[2023-02-02] MEDS: HYDROGEN PEROXIDE 3% 118 ML BOTTLE TOP SCH ×2 (08:02→19:12)
[2023-02-02] MEDS: levETIRAcetam 500 MG/5 ML LIQUID UDC GT SCH ×2 (08:20→20:20)
[2023-02-02] MEDS: LACOSAMIDE 100 MG/10 ML UDC GT SCH ×2 (08:20→20:20)
[2023-02-02] MEDS: TIZANIDINE HCL 4 MG TABLET GT SCH ×2 (08:21→19:00)
[2023-02-02] MEDS: METOCLOPRAMIDE HCL 10 MG TABLET GT SCH ×3 (08:21→19:00)
[2023-02-02] MEDS: REMEDY ESSENTIAL ZINC PASTE 113 GM TP SCH ×4 (08:21→21:00)
[2023-02-02 10:49] VITALS: O2SAT 99
[2023-02-02] MEDS: VITAL AF 1.2 1,000 ML LIQUID GT PRN (19:30)
[2023-02-02 20:00] VITALS: TEMP 98.2; O2SAT 99
[2023-02-02] MEDS: RIVAROXABAN 10 MG TABLET GT SCH (21:00)
[2023-02-02] MEDS: MELATONIN 5MG TABLET GT SCH (21:00)
[2023-02-03] MEDS: FAMOTIDINE 20 MG TABLET GT SCH ×2 (05:18→18:58)
[2023-02-03] MEDS: HYDROGEN PEROXIDE 3% 118 ML BOTTLE TOP SCH ×2 (07:15→21:00)
[2023-02-03 08:00] VITALS: TEMP 98
[2023-02-03] MEDS: levETIRAcetam 500 MG/5 ML LIQUID UDC GT SCH ×2 (08:16→20:12)
[2023-02-03] MEDS: METOCLOPRAMIDE HCL 10 MG TABLET GT SCH ×3 (08:16→18:58)
[2023-02-03] MEDS: REMEDY ESSENTIAL ZINC PASTE 113 GM TP SCH ×4 (08:16→21:53)
[2023-02-03] MEDS: [UNRECOGNIZED DRUG - OTHER] TP SCH (08:16)
[2023-02-03] MEDS: TIZANIDINE HCL 4 MG TABLET GT SCH ×2 (08:16→18:58)
[2023-02-03] MEDS: LACOSAMIDE 100 MG/10 ML UDC GT SCH ×2 (08:16→20:12)
[2023-02-03 08:52] VITALS: O2SAT 99
[2023-02-03 20:00] VITALS: TEMP 98.4
[2023-02-03 21:00] VITALS: O2SAT 99
[2023-02-03] MEDS: RIVAROXABAN 10 MG TABLET GT SCH (21:53)
[2023-02-03] MEDS: MELATONIN 5MG TABLET GT SCH (21:55)
[2023-02-04] MEDS: FAMOTIDINE 20 MG TABLET GT SCH ×2 (05:21→19:00)
[2023-02-04] MEDS: HYDROGEN PEROXIDE 3% 118 ML BOTTLE TOP SCH ×2 (07:18→21:09)
[2023-02-04] MEDS: levETIRAcetam 500 MG/5 ML LIQUID UDC GT SCH ×2 (08:00→20:03)
[2023-02-04] MEDS: LACOSAMIDE 100 MG/10 ML UDC GT SCH ×2 (08:00→20:03)
[2023-02-04 08:11] VITALS: TEMP 98.4
[2023-02-04] MEDS: METOCLOPRAMIDE HCL 10 MG TABLET GT SCH ×3 (09:02→19:00)
[2023-02-04] MEDS: REMEDY ESSENTIAL ZINC PASTE 113 GM TP SCH ×4 (09:03→21:00)
[2023-02-04] MEDS: TIZANIDINE HCL 4 MG TABLET GT SCH ×2 (09:03→19:00)
[2023-02-04 10:54] VITALS: O2SAT 99
[2023-02-04 20:00] VITALS: TEMP 98.4
[2023-02-04] MEDS: RIVAROXABAN 10 MG TABLET GT SCH (21:00)
[2023-02-04] MEDS: MELATONIN 5MG TABLET GT SCH (21:00)
[2023-02-05] MEDS: VITAL AF 1.2 1,000 ML LIQUID GT PRN (03:28)
[2023-02-05 04:14] VITALS: O2SAT 99
[2023-02-05] MEDS: FAMOTIDINE 20 MG TABLET GT SCH ×2 (05:26→18:51)
[2023-02-05] MEDS: BISACODYL 10 MG SUPP.RECT RC PRN (05:59)
[2023-02-05] MEDS: HYDROGEN PEROXIDE 3% 118 ML BOTTLE TOP SCH ×2 (08:05→19:16)
[2023-02-05] MEDS: TIZANIDINE HCL 4 MG TABLET GT SCH ×2 (08:38→18:51)
[2023-02-05] MEDS: levETIRAcetam 500 MG/5 ML LIQUID UDC GT SCH ×2 (08:38→20:21)
[2023-02-05] MEDS: LACOSAMIDE 100 MG/10 ML UDC GT SCH ×2 (08:38→20:21)
[2023-02-05] MEDS: METOCLOPRAMIDE HCL 10 MG TABLET GT SCH ×3 (08:38→18:51)
[2023-02-05] MEDS: [UNRECOGNIZED DRUG - OTHER] TP SCH (08:39)
[2023-02-05] MEDS: REMEDY ESSENTIAL ZINC PASTE 113 GM TP SCH ×4 (08:39→21:00)
[2023-02-05 14:21] VITALS: O2SAT 98
[2023-02-05 20:00] VITALS: TEMP 98.2
[2023-02-05] MEDS: MELATONIN 5MG TABLET GT SCH (21:00)
[2023-02-05] MEDS: RIVAROXABAN 10 MG TABLET GT SCH (21:00)
[2023-02-05 21:15] VITALS: O2SAT 99
[2023-02-06] MEDS: FAMOTIDINE 20 MG TABLET GT SCH ×2 (05:45→19:08)
[2023-02-06] MEDS: HYDROGEN PEROXIDE 3% 118 ML BOTTLE TOP SCH ×2 (07:13→19:11)
[2023-02-06 07:22] VITALS: TEMP 98.1
[2023-02-06] MEDS: levETIRAcetam 500 MG/5 ML LIQUID UDC GT SCH ×2 (08:53→20:01)
[2023-02-06] MEDS: REMEDY ESSENTIAL ZINC PASTE 113 GM TP SCH ×3 (08:54→21:14)
[2023-02-06] MEDS: LACOSAMIDE 100 MG/10 ML UDC GT SCH ×2 (08:54→20:02)
[2023-02-06] MEDS: TIZANIDINE HCL 4 MG TABLET GT SCH ×2 (08:54→19:08)
[2023-02-06] MEDS: METOCLOPRAMIDE HCL 10 MG TABLET GT SCH ×3 (08:54→19:08)
[2023-02-06 10:50] VITALS: O2SAT 99
[2023-02-06 15:55] VITALS: O2SAT 97
[2023-02-06 17:07] VITALS: O2SAT 98
[2023-02-06 19:30] VITALS: O2SAT 99
[2023-02-06] MEDS: RIVAROXABAN 10 MG TABLET GT SCH (21:13)
[2023-02-06] MEDS: MELATONIN 5MG TABLET GT SCH (21:13)
[2023-02-07] MEDS: FAMOTIDINE 20 MG TABLET GT SCH ×2 (05:47→18:50)
[2023-02-07 07:19] VITALS: TEMP 98.1
[2023-02-07] MEDS: LACOSAMIDE 100 MG/10 ML UDC GT SCH ×2 (08:40→20:00)
[2023-02-07] MEDS: levETIRAcetam 500 MG/5 ML LIQUID UDC GT SCH ×2 (08:40→20:00)
[2023-02-07] MEDS: METOCLOPRAMIDE HCL 10 MG TABLET GT SCH ×3 (08:40→18:51)
[2023-02-07] MEDS: TIZANIDINE HCL 4 MG TABLET GT SCH ×2 (08:41→18:52)
[2023-02-07] MEDS: REMEDY ESSENTIAL ZINC PASTE 113 GM TP SCH ×2 (08:42→21:09)
[2023-02-07] MEDS: [UNRECOGNIZED DRUG - OTHER] TP SCH (09:00)
[2023-02-07] MEDS: HYDROGEN PEROXIDE 3% 118 ML BOTTLE TOP SCH ×2 (09:00→19:08)
[2023-02-07] MEDS: VITAL AF 1.2 1,000 ML LIQUID GT PRN (17:31)
[2023-02-07 20:00] VITALS: TEMP 98.2
[2023-02-07 20:30] VITALS: O2SAT 99
[2023-02-07] MEDS: RIVAROXABAN 10 MG TABLET GT SCH (21:09)
[2023-02-07] MEDS: MELATONIN 5MG TABLET GT SCH (21:09)
[2023-02-08] MEDS: FAMOTIDINE 20 MG TABLET GT SCH ×2 (05:10→18:53)
[2023-02-08] MEDS: HYDROGEN PEROXIDE 3% 118 ML BOTTLE TOP SCH ×2 (07:20→19:27)
[2023-02-08 07:23] VITALS: TEMP 98.8
[2023-02-08] MEDS: METOCLOPRAMIDE HCL 10 MG TABLET GT SCH ×3 (08:52→18:53)
[2023-02-08] MEDS: LACOSAMIDE 100 MG/10 ML UDC GT SCH ×2 (08:52→19:50)
[2023-02-08] MEDS: levETIRAcetam 500 MG/5 ML LIQUID UDC GT SCH ×2 (08:52→19:50)
[2023-02-08] MEDS: TIZANIDINE HCL 4 MG TABLET GT SCH ×2 (08:52→18:53)
[2023-02-08] MEDS: REMEDY ESSENTIAL ZINC PASTE 113 GM TP SCH ×2 (08:53→21:00)
[2023-02-08 10:40] VITALS: O2SAT 99
[2023-02-08] MEDS: NEOMY/BACITRA/POLYMYXIN B OINT UD PACKET TP SCH ×2 (12:51→21:00)
[2023-02-08] MEDS: VITAL AF 1.2 1,000 ML LIQUID GT PRN (17:27)
[2023-02-08 19:55] VITALS: O2SAT 99
[2023-02-08 20:00] VITALS: TEMP 94.3
[2023-02-08] MEDS: RIVAROXABAN 10 MG TABLET GT SCH (21:00)
[2023-02-08] MEDS: MELATONIN 5MG TABLET GT SCH (21:00)
[2023-02-09] MEDS: FAMOTIDINE 20 MG TABLET GT SCH ×2 (05:59→19:00)
[2023-02-09] MEDS: HYDROGEN PEROXIDE 3% 118 ML BOTTLE TOP SCH ×2 (07:11→19:13)
[2023-02-09 07:23] VITALS: TEMP 98.5
[2023-02-09] MEDS: levETIRAcetam 500 MG/5 ML LIQUID UDC GT SCH ×2 (08:56→20:10)
[2023-02-09] MEDS: LACOSAMIDE 100 MG/10 ML UDC GT SCH ×2 (08:56→20:10)
[2023-02-09] MEDS: METOCLOPRAMIDE HCL 10 MG TABLET GT SCH ×3 (09:01→19:00)
[2023-02-09] MEDS: [UNRECOGNIZED DRUG - OTHER] TP SCH (09:02)
[2023-02-09] MEDS: TIZANIDINE HCL 4 MG TABLET GT SCH ×2 (09:02→19:00)
[2023-02-09] MEDS: REMEDY ESSENTIAL ZINC PASTE 113 GM TP SCH ×2 (09:02→21:00)
[2023-02-09] MEDS: NEOMY/BACITRA/POLYMYXIN B OINT UD PACKET TP SCH ×2 (09:03→21:00)
[2023-02-09 10:11] VITALS: O2SAT 99
[2023-02-09 19:48] VITALS: O2SAT 99
[2023-02-09 20:00] VITALS: TEMP 95.3
[2023-02-09] MEDS: RIVAROXABAN 10 MG TABLET GT SCH (21:00)
[2023-02-09] MEDS: MELATONIN 5MG TABLET GT SCH (21:00)
[2023-02-10] MEDS: FAMOTIDINE 20 MG TABLET GT SCH ×2 (05:20→19:01)
[2023-02-10 07:58] VITALS: TEMP 98.5
[2023-02-10 08:00] VITALS: O2SAT 99
[2023-02-10] MEDS: levETIRAcetam 500 MG/5 ML LIQUID UDC GT SCH ×2 (08:57→20:05)
[2023-02-10] MEDS: MAGNESIUM HYDROXIDE 30 ML LIQUID UDC GT PRN (08:57)
[2023-02-10] MEDS: LACOSAMIDE 100 MG/10 ML UDC GT SCH ×2 (08:57→20:05)
[2023-02-10] MEDS: METOCLOPRAMIDE HCL 10 MG TABLET GT SCH ×3 (08:57→19:01)
[2023-02-10] MEDS: REMEDY ESSENTIAL ZINC PASTE 113 GM TP SCH ×2 (08:58→21:00)
[2023-02-10] MEDS: NEOMY/BACITRA/POLYMYXIN B OINT UD PACKET TP SCH ×2 (08:58→21:00)
[2023-02-10] MEDS: TIZANIDINE HCL 4 MG TABLET GT SCH ×2 (08:58→19:01)
[2023-02-10] MEDS: HYDROGEN PEROXIDE 3% 118 ML BOTTLE TOP SCH ×2 (09:00→19:09)
[2023-02-10 11:00] VITALS: O2SAT 99
[2023-02-10] MEDS: BISACODYL 10 MG SUPP.RECT RC PRN (13:00)
[2023-02-10] MEDS: VITAL AF 1.2 1,000 ML LIQUID GT PRN (16:43)
[2023-02-10 20:00] VITALS: TEMP 97.3
[2023-02-10] MEDS: RIVAROXABAN 10 MG TABLET GT SCH (21:00)
[2023-02-10] MEDS: MELATONIN 5MG TABLET GT SCH (21:00)
[2023-02-11] MEDS: FAMOTIDINE 20 MG TABLET GT SCH ×2 (05:30→19:16)
[2023-02-11 08:07] VITALS: TEMP 98.3
[2023-02-11] MEDS: HYDROGEN PEROXIDE 3% 118 ML BOTTLE TOP SCH ×2 (08:14→19:13)
[2023-02-11 08:15] VITALS: O2SAT 98
[2023-02-11] MEDS: levETIRAcetam 500 MG/5 ML LIQUID UDC GT SCH ×2 (08:47→20:36)
[2023-02-11] MEDS: METOCLOPRAMIDE HCL 10 MG TABLET GT SCH ×3 (08:48→19:16)
[2023-02-11] MEDS: TIZANIDINE HCL 4 MG TABLET GT SCH ×2 (08:48→19:16)
[2023-02-11] MEDS: LACOSAMIDE 100 MG/10 ML UDC GT SCH ×2 (08:48→20:36)
[2023-02-11] MEDS: [UNRECOGNIZED DRUG - OTHER] TP SCH (08:49)
[2023-02-11] MEDS: NEOMY/BACITRA/POLYMYXIN B OINT UD PACKET TP SCH ×2 (08:49→21:09)
[2023-02-11] MEDS: REMEDY ESSENTIAL ZINC PASTE 113 GM TP SCH ×2 (08:49→21:09)
[2023-02-11 15:11] VITALS: O2SAT 99
[2023-02-11] MEDS: VITAL AF 1.2 1,000 ML LIQUID GT PRN (16:15)
[2023-02-11 20:38] VITALS: TEMP 98
[2023-02-11] MEDS: MELATONIN 5MG TABLET GT SCH (21:00)
[2023-02-11] MEDS: RIVAROXABAN 10 MG TABLET GT SCH (21:00)
[2023-02-12 01:02] VITALS: O2SAT 99
[2023-02-12] MEDS: BISACODYL 10 MG SUPP.RECT RC PRN (05:15)
[2023-02-12] MEDS: FAMOTIDINE 20 MG TABLET GT SCH ×2 (05:15→18:42)
[2023-02-12] MEDS: METOCLOPRAMIDE HCL 10 MG TABLET GT SCH ×3 (08:37→18:42)
[2023-02-12] MEDS: LACOSAMIDE 100 MG/10 ML UDC GT SCH ×2 (08:37→20:13)
[2023-02-12] MEDS: levETIRAcetam 500 MG/5 ML LIQUID UDC GT SCH ×2 (08:37→20:13)
[2023-02-12] MEDS: NEOMY/BACITRA/POLYMYXIN B OINT UD PACKET TP SCH ×2 (08:38→22:00)
[2023-02-12] MEDS: TIZANIDINE HCL 4 MG TABLET GT SCH ×2 (08:38→18:42)
[2023-02-12] MEDS: REMEDY ESSENTIAL ZINC PASTE 113 GM TP SCH ×2 (08:38→22:00)
[2023-02-12] MEDS: HYDROGEN PEROXIDE 3% 118 ML BOTTLE TOP SCH ×2 (09:00→19:19)
[2023-02-12 10:06] VITALS: TEMP 98
[2023-02-12] MEDS: VITAL AF 1.2 1,000 ML LIQUID GT PRN (13:38)
[2023-02-12 16:27] VITALS: O2SAT 98
[2023-02-12 20:00] VITALS: O2SAT 99
[2023-02-12] MEDS: MELATONIN 5MG TABLET GT SCH (22:00)
[2023-02-12] MEDS: RIVAROXABAN 10 MG TABLET GT SCH (22:00)
[2023-02-13] MEDS: FAMOTIDINE 20 MG TABLET GT SCH ×2 (05:30→18:53)
[2023-02-13 07:26] VITALS: TEMP 98.6
[2023-02-13 08:00] VITALS: O2SAT 98
[2023-02-13] MEDS: levETIRAcetam 500 MG/5 ML LIQUID UDC GT SCH ×2 (08:47→20:20)
[2023-02-13] MEDS: [UNRECOGNIZED DRUG - OTHER] TP SCH (08:48)
[2023-02-13] MEDS: REMEDY ESSENTIAL ZINC PASTE 113 GM TP SCH ×2 (08:48→21:00)
[2023-02-13] MEDS: TIZANIDINE HCL 4 MG TABLET GT SCH ×2 (08:48→18:55)
[2023-02-13] MEDS: LACOSAMIDE 100 MG/10 ML UDC GT SCH ×2 (08:48→20:20)
[2023-02-13] MEDS: METOCLOPRAMIDE HCL 10 MG TABLET GT SCH ×3 (08:48→18:54)
[2023-02-13] MEDS: HYDROGEN PEROXIDE 3% 118 ML BOTTLE TOP SCH ×2 (09:00→22:28)
[2023-02-13] MEDS: NEOMY/BACITRA/POLYMYXIN B OINT UD PACKET TP SCH ×2 (09:00→21:00)
[2023-02-13 11:00] VITALS: O2SAT 99
[2023-02-13 13:43] VITALS: O2SAT 99
[2023-02-13 20:44] VITALS: TEMP 98.4
[2023-02-13] MEDS: MELATONIN 5MG TABLET GT SCH (21:00)
[2023-02-13] MEDS: RIVAROXABAN 10 MG TABLET GT SCH (21:00)
[2023-02-14 03:05] VITALS: O2SAT 98
[2023-02-14] MEDS: FAMOTIDINE 20 MG TABLET GT SCH ×2 (05:21→18:54)
[2023-02-14 07:13] VITALS: TEMP 98.8
[2023-02-14] MEDS: HYDROGEN PEROXIDE 3% 118 ML BOTTLE TOP SCH ×2 (08:07→19:15)
[2023-02-14] MEDS: levETIRAcetam 500 MG/5 ML LIQUID UDC GT SCH ×2 (08:42→20:37)
[2023-02-14] MEDS: NEOMY/BACITRA/POLYMYXIN B OINT UD PACKET TP SCH ×2 (08:43→21:00)
[2023-02-14] MEDS: REMEDY ESSENTIAL ZINC PASTE 113 GM TP SCH ×2 (08:43→21:00)
[2023-02-14] MEDS: METOCLOPRAMIDE HCL 10 MG TABLET GT SCH ×3 (08:43→18:54)
[2023-02-14] MEDS: TIZANIDINE HCL 4 MG TABLET GT SCH ×2 (08:43→18:54)
[2023-02-14] MEDS: LACOSAMIDE 100 MG/10 ML UDC GT SCH ×2 (08:43→20:37)
[2023-02-14 14:21] VITALS: O2SAT 98
[2023-02-14 20:00] VITALS: TEMP 97.8
[2023-02-14] MEDS: RIVAROXABAN 10 MG TABLET GT SCH (21:00)
[2023-02-14] MEDS: MELATONIN 5MG TABLET GT SCH (21:00)
[2023-02-15] VITALS (7 sets, daily range): TEMP 97.8–98.3; O2SAT 98–99
[2023-02-15] MEDS: FAMOTIDINE 20 MG TABLET GT SCH ×2 (05:37→18:50)
[2023-02-15] MEDS: VITAL AF 1.2 1,000 ML LIQUID GT PRN (06:30)
[2023-02-15] MEDS: levETIRAcetam 500 MG/5 ML LIQUID UDC GT SCH ×2 (08:00→20:32)
[2023-02-15] MEDS: LACOSAMIDE 100 MG/10 ML UDC GT SCH ×2 (08:00→20:32)
[2023-02-15] MEDS: HYDROGEN PEROXIDE 3% 118 ML BOTTLE TOP SCH ×2 (09:00→19:34)
[2023-02-15] MEDS: METOCLOPRAMIDE HCL 10 MG TABLET GT SCH ×3 (09:04→18:50)
[2023-02-15] MEDS: TIZANIDINE HCL 4 MG TABLET GT SCH ×2 (09:04→18:50)
[2023-02-15] MEDS: [UNRECOGNIZED DRUG - OTHER] TP SCH (09:04)
[2023-02-15] MEDS: REMEDY ESSENTIAL ZINC PASTE 113 GM TP SCH ×2 (09:05→21:00)
[2023-02-15] MEDS: MELATONIN 5MG TABLET GT SCH (21:00)
[2023-02-15] MEDS: RIVAROXABAN 10 MG TABLET GT SCH (21:00)
[2023-02-16] MEDS: FAMOTIDINE 20 MG TABLET GT SCH ×2 (06:04→18:59)
[2023-02-16 08:04] VITALS: TEMP 98.4
[2023-02-16] MEDS: levETIRAcetam 500 MG/5 ML LIQUID UDC GT SCH ×2 (08:36→20:00)
[2023-02-16] MEDS: LACOSAMIDE 100 MG/10 ML UDC GT SCH ×2 (08:37→20:00)
[2023-02-16] MEDS: TIZANIDINE HCL 4 MG TABLET GT SCH ×2 (08:38→18:59)
[2023-02-16] MEDS: METOCLOPRAMIDE HCL 10 MG TABLET GT SCH ×3 (08:38→18:59)
[2023-02-16] MEDS: REMEDY ESSENTIAL ZINC PASTE 113 GM TP SCH ×2 (08:38→21:00)
[2023-02-16] MEDS: HYDROGEN PEROXIDE 3% 118 ML BOTTLE TOP SCH ×2 (08:55→19:19)
[2023-02-16] MEDS: VITAL AF 1.2 1,000 ML LIQUID GT PRN (10:18)
[2023-02-16 10:50] VITALS: O2SAT 98
[2023-02-16] MEDS: BISACODYL 10 MG SUPP.RECT RC PRN (14:52)
[2023-02-16 20:00] VITALS: TEMP 99.2
[2023-02-16] MEDS: ACETAMINOPHEN 650 MG/20 ML UDC- SA PATIENTS-FEVER ONLY GT PRN (20:19)
[2023-02-16 20:30] VITALS: O2SAT 98
[2023-02-16] MEDS: RIVAROXABAN 10 MG TABLET GT SCH (21:00)
[2023-02-16] MEDS: MELATONIN 5MG TABLET GT SCH (21:00)
[2023-02-17] MEDS: FAMOTIDINE 20 MG TABLET GT SCH ×2 (05:37→18:57)
[2023-02-17 07:41] VITALS: TEMP 97.7
[2023-02-17] MEDS: REMEDY ESSENTIAL ZINC PASTE 113 GM TP SCH ×2 (08:09→21:00)
[2023-02-17] MEDS: LACOSAMIDE 100 MG/10 ML UDC GT SCH ×2 (08:09→20:00)
[2023-02-17] MEDS: METOCLOPRAMIDE HCL 10 MG TABLET GT SCH ×3 (08:09→18:57)
[2023-02-17] MEDS: TIZANIDINE HCL 4 MG TABLET GT SCH ×2 (08:09→18:57)
[2023-02-17] MEDS: levETIRAcetam 500 MG/5 ML LIQUID UDC GT SCH ×2 (08:09→20:00)
[2023-02-17] MEDS: [UNRECOGNIZED DRUG - OTHER] TP SCH (08:09)
[2023-02-17] MEDS: HYDROGEN PEROXIDE 3% 118 ML BOTTLE TOP SCH ×2 (09:00→21:19)
[2023-02-17 18:04] VITALS: O2SAT 98
[2023-02-17 20:00] VITALS: TEMP 98.6
[2023-02-17] MEDS: RIVAROXABAN 10 MG TABLET GT SCH (21:00)
[2023-02-17] MEDS: MELATONIN 5MG TABLET GT SCH (21:00)
[2023-02-17 21:24] VITALS: O2SAT 98
[2023-02-18] MEDS: FAMOTIDINE 20 MG TABLET GT SCH ×2 (06:19→18:30)
[2023-02-18] MEDS: HYDROGEN PEROXIDE 3% 118 ML BOTTLE TOP SCH ×2 (07:23→19:26)
[2023-02-18 07:59] VITALS: TEMP 97.3
[2023-02-18] MEDS: levETIRAcetam 500 MG/5 ML LIQUID UDC GT SCH ×2 (08:37→20:01)
[2023-02-18] MEDS: METOCLOPRAMIDE HCL 10 MG TABLET GT SCH ×3 (08:37→18:30)
[2023-02-18] MEDS: REMEDY ESSENTIAL ZINC PASTE 113 GM TP SCH ×2 (08:37→21:59)
[2023-02-18] MEDS: TIZANIDINE HCL 4 MG TABLET GT SCH ×2 (08:37→18:30)
[2023-02-18] MEDS: LACOSAMIDE 100 MG/10 ML UDC GT SCH ×2 (08:37→20:01)
[2023-02-18 09:18] VITALS: O2SAT 98
[2023-02-18 20:00] VITALS: TEMP 96.3
[2023-02-18 20:31] VITALS: O2SAT 98
[2023-02-18] MEDS: RIVAROXABAN 10 MG TABLET GT SCH (21:00)
[2023-02-18] MEDS: MELATONIN 5MG TABLET GT SCH (21:00)
[2023-02-19] MEDS: FAMOTIDINE 20 MG TABLET GT SCH ×2 (05:08→18:49)
[2023-02-19] MEDS: levETIRAcetam 500 MG/5 ML LIQUID UDC GT SCH ×2 (08:00→20:33)
[2023-02-19] MEDS: HYDROGEN PEROXIDE 3% 118 ML BOTTLE TOP SCH ×2 (08:58→19:34)
[2023-02-19 09:09] VITALS: TEMP 97.9
[2023-02-19] MEDS: LACOSAMIDE 100 MG/10 ML UDC GT SCH ×2 (09:20→20:33)
[2023-02-19] MEDS: [UNRECOGNIZED DRUG - OTHER] TP SCH (09:25)
[2023-02-19] MEDS: REMEDY ESSENTIAL ZINC PASTE 113 GM TP SCH ×2 (09:25→21:00)
[2023-02-19] MEDS: METOCLOPRAMIDE HCL 10 MG TABLET GT SCH ×3 (09:25→18:49)
[2023-02-19] MEDS: TIZANIDINE HCL 4 MG TABLET GT SCH ×2 (09:25→18:52)
[2023-02-19 14:11] VITALS: O2SAT 98
[2023-02-19 20:00] VITALS: TEMP 97.9; O2SAT 98
[2023-02-19] MEDS: MELATONIN 5MG TABLET GT SCH (21:00)
[2023-02-19] MEDS: RIVAROXABAN 10 MG TABLET GT SCH (21:00)
[2023-02-20] MEDS: FAMOTIDINE 20 MG TABLET GT SCH ×2 (05:39→18:58)
[2023-02-20 07:37] VITALS: TEMP 98.3
[2023-02-20 08:10] VITALS: O2SAT 98
[2023-02-20] MEDS: LACOSAMIDE 100 MG/10 ML UDC GT SCH ×2 (08:47→20:19)
[2023-02-20] MEDS: METOCLOPRAMIDE HCL 10 MG TABLET GT SCH ×3 (08:49→18:58)
[2023-02-20] MEDS: levETIRAcetam 500 MG/5 ML LIQUID UDC GT SCH ×2 (08:49→20:19)
[2023-02-20] MEDS: TIZANIDINE HCL 4 MG TABLET GT SCH ×2 (08:49→18:58)
[2023-02-20] MEDS: REMEDY ESSENTIAL ZINC PASTE 113 GM TP SCH ×2 (08:50→21:00)
[2023-02-20] MEDS: HYDROGEN PEROXIDE 3% 118 ML BOTTLE TOP SCH ×2 (09:00→19:22)
[2023-02-20 11:00] VITALS: O2SAT 99
[2023-02-20 15:29] VITALS: O2SAT 99
[2023-02-20 20:00] VITALS: TEMP 98.3
[2023-02-20 20:35] VITALS: O2SAT 98
[2023-02-20] MEDS: MELATONIN 5MG TABLET GT SCH (21:00)
[2023-02-20] MEDS: RIVAROXABAN 10 MG TABLET GT SCH (21:00)
[2023-02-21] MEDS: FAMOTIDINE 20 MG TABLET GT SCH ×2 (05:31→18:58)
[2023-02-21 07:38] VITALS: TEMP 97.2
[2023-02-21] MEDS: LACOSAMIDE 100 MG/10 ML UDC GT SCH ×2 (08:00→20:10)
[2023-02-21] MEDS: levETIRAcetam 500 MG/5 ML LIQUID UDC GT SCH ×2 (08:00→20:10)
[2023-02-21 08:40] VITALS: O2SAT 98
[2023-02-21] MEDS: HYDROGEN PEROXIDE 3% 118 ML BOTTLE TOP SCH ×2 (09:00→21:00)
[2023-02-21] MEDS: METOCLOPRAMIDE HCL 10 MG TABLET GT SCH ×3 (09:16→18:58)
[2023-02-21] MEDS: [UNRECOGNIZED DRUG - OTHER] TP SCH (09:17)
[2023-02-21] MEDS: REMEDY ESSENTIAL ZINC PASTE 113 GM TP SCH ×2 (09:17→21:00)
[2023-02-21] MEDS: TIZANIDINE HCL 4 MG TABLET GT SCH ×2 (09:17→18:58)
[2023-02-21] MEDS: VITAL AF 1.2 1,000 ML LIQUID GT PRN (14:06)
[2023-02-21 20:00] VITALS: TEMP 98.2
[2023-02-21] MEDS: MELATONIN 5MG TABLET GT SCH (21:00)
[2023-02-21] MEDS: RIVAROXABAN 10 MG TABLET GT SCH (21:00)
[2023-02-22 00:40] VITALS: O2SAT 97
[2023-02-22] MEDS: FAMOTIDINE 20 MG TABLET GT SCH ×2 (05:45→18:50)
[2023-02-22 07:05] VITALS: O2SAT 98
[2023-02-22 08:04] VITALS: TEMP 98.5
[2023-02-22] MEDS: levETIRAcetam 500 MG/5 ML LIQUID UDC GT SCH ×2 (08:10→20:12)
[2023-02-22] MEDS: METOCLOPRAMIDE HCL 10 MG TABLET GT SCH ×3 (08:10→18:51)
[2023-02-22] MEDS: LACOSAMIDE 100 MG/10 ML UDC GT SCH ×2 (08:10→20:12)
[2023-02-22] MEDS: TIZANIDINE HCL 4 MG TABLET GT SCH ×2 (08:11→18:51)
[2023-02-22] MEDS: REMEDY ESSENTIAL ZINC PASTE 113 GM TP SCH ×2 (08:13→21:00)
[2023-02-22] MEDS: HYDROGEN PEROXIDE 3% 118 ML BOTTLE TOP SCH ×2 (09:00→19:11)
[2023-02-22 15:40] VITALS: O2SAT 99
[2023-02-22] MEDS: VITAL AF 1.2 1,000 ML LIQUID GT PRN (17:08)
[2023-02-22 19:54] VITALS: TEMP 98.1
[2023-02-22] MEDS: MELATONIN 5MG TABLET GT SCH (21:00)
[2023-02-22] MEDS: RIVAROXABAN 10 MG TABLET GT SCH (21:00)
[2023-02-23 00:29] VITALS: O2SAT 96
[2023-02-23] MEDS: FAMOTIDINE 20 MG TABLET GT SCH ×2 (05:41→18:57)
[2023-02-23] MEDS: HYDROGEN PEROXIDE 3% 118 ML BOTTLE TOP SCH ×2 (07:30→19:13)
[2023-02-23 07:31] VITALS: TEMP 98.1
[2023-02-23] MEDS: levETIRAcetam 500 MG/5 ML LIQUID UDC GT SCH ×2 (08:28→20:10)
[2023-02-23] MEDS: TIZANIDINE HCL 4 MG TABLET GT SCH ×2 (08:30→18:58)
[2023-02-23] MEDS: METOCLOPRAMIDE HCL 10 MG TABLET GT SCH ×3 (08:30→18:57)
[2023-02-23] MEDS: LACOSAMIDE 100 MG/10 ML UDC GT SCH ×2 (08:30→20:10)
[2023-02-23] MEDS: REMEDY ESSENTIAL ZINC PASTE 113 GM TP SCH ×2 (08:30→21:00)
[2023-02-23] MEDS: [UNRECOGNIZED DRUG - OTHER] TP SCH (08:30)
[2023-02-23] MEDS: MAGNESIUM HYDROXIDE 30 ML LIQUID UDC GT PRN (08:38)
[2023-02-23 10:38] VITALS: O2SAT 99
[2023-02-23 19:35] VITALS: O2SAT 98
[2023-02-23 20:00] VITALS: TEMP 98.2
[2023-02-23] MEDS: MELATONIN 5MG TABLET GT SCH (21:00)
[2023-02-23] MEDS: RIVAROXABAN 10 MG TABLET GT SCH (21:00)
[2023-02-24] MEDS: VITAL AF 1.2 1,000 ML LIQUID GT PRN (02:53)
[2023-02-24] MEDS: FAMOTIDINE 20 MG TABLET GT SCH ×2 (05:17→18:51)
[2023-02-24] MEDS: HYDROGEN PEROXIDE 3% 118 ML BOTTLE TOP SCH ×2 (07:34→19:15)
[2023-02-24 08:00] VITALS: TEMP 96.6
[2023-02-24] MEDS: LACOSAMIDE 100 MG/10 ML UDC GT SCH ×2 (08:00→20:33)
[2023-02-24] MEDS: levETIRAcetam 500 MG/5 ML LIQUID UDC GT SCH ×2 (08:00→20:33)
[2023-02-24] MEDS: METOCLOPRAMIDE HCL 10 MG TABLET GT SCH ×3 (09:17→18:51)
[2023-02-24] MEDS: REMEDY ESSENTIAL ZINC PASTE 113 GM TP SCH ×2 (09:17→21:00)
[2023-02-24] MEDS: TIZANIDINE HCL 4 MG TABLET GT SCH ×2 (09:17→18:51)
[2023-02-24 10:15] VITALS: O2SAT 99
[2023-02-24 19:45] VITALS: O2SAT 98
[2023-02-24 20:00] VITALS: TEMP 97.3
[2023-02-24] MEDS: MELATONIN 5MG TABLET GT SCH (21:00)
[2023-02-24] MEDS: RIVAROXABAN 10 MG TABLET GT SCH (21:00)
[2023-02-25] MEDS: FAMOTIDINE 20 MG TABLET GT SCH ×2 (05:59→18:46)
[2023-02-25 07:46] VITALS: TEMP 98.5
[2023-02-25] MEDS: HYDROGEN PEROXIDE 3% 118 ML BOTTLE TOP SCH ×3 (07:52→20:19)
[2023-02-25 08:30] VITALS: O2SAT 98
[2023-02-25] MEDS: levETIRAcetam 500 MG/5 ML LIQUID UDC GT SCH ×2 (08:39→20:18)
[2023-02-25] MEDS: METOCLOPRAMIDE HCL 10 MG TABLET GT SCH ×3 (08:40→18:46)
[2023-02-25] MEDS: TIZANIDINE HCL 4 MG TABLET GT SCH ×2 (08:40→18:46)
[2023-02-25] MEDS: LACOSAMIDE 100 MG/10 ML UDC GT SCH ×2 (08:40→20:18)
[2023-02-25] MEDS: REMEDY ESSENTIAL ZINC PASTE 113 GM TP SCH ×2 (08:41→21:00)
[2023-02-25] MEDS: [UNRECOGNIZED DRUG - OTHER] TP SCH (08:41)
[2023-02-25] MEDS: VITAL AF 1.2 1,000 ML LIQUID GT PRN (11:11)
[2023-02-25 15:56] VITALS: O2SAT 99
[2023-02-25 20:00] VITALS: TEMP 98.8
[2023-02-25] MEDS: MELATONIN 5MG TABLET GT SCH (21:00)
[2023-02-25] MEDS: RIVAROXABAN 10 MG TABLET GT SCH (21:00)
[2023-02-26 03:40] VITALS: O2SAT 98
[2023-02-26] MEDS: FAMOTIDINE 20 MG TABLET GT SCH ×2 (05:32→18:54)
[2023-02-26 07:23] VITALS: O2SAT 98
[2023-02-26 07:52] VITALS: TEMP 98.4
[2023-02-26] MEDS: levETIRAcetam 500 MG/5 ML LIQUID UDC GT SCH ×2 (08:00→20:52)
[2023-02-26] MEDS: LACOSAMIDE 100 MG/10 ML UDC GT SCH ×2 (08:00→21:00)
[2023-02-26] MEDS: HYDROGEN PEROXIDE 3% 118 ML BOTTLE TOP SCH ×2 (09:54→21:57)
[2023-02-26] MEDS: TIZANIDINE HCL 4 MG TABLET GT SCH ×2 (09:54→18:54)
[2023-02-26] MEDS: METOCLOPRAMIDE HCL 10 MG TABLET GT SCH ×3 (09:54→18:54)
[2023-02-26] MEDS: REMEDY ESSENTIAL ZINC PASTE 113 GM TP SCH ×2 (09:55→21:05)
[2023-02-26 20:18] VITALS: O2SAT 98
[2023-02-26] MEDS: MELATONIN 5MG TABLET GT SCH (20:52)
[2023-02-26] MEDS: RIVAROXABAN 10 MG TABLET GT SCH (20:53)
[2023-02-27] MEDS: FAMOTIDINE 20 MG TABLET GT SCH ×2 (05:54→18:49)
[2023-02-27] MEDS: ONDANSETRON HCL 4 MG TABLET GT PRN (06:13)
[2023-02-27 07:45] LABS: BASOPHILS % (AUTO) 0.5 % (0.0-2.0); EOSINOPHILS # (AUTO) 0.2 K/uL (0.0-0.7); EOSINOPHILS % (AUTO) 3.1 % (0.0-7.0); HEMATOCRIT 36.7 % (31.2-41.9); HEMOGLOBIN 12.4 g/dL (10.9-14.3); LYMPHOCYTES # (AUTO) 1.3 K/uL (0.8-4.8); LYMPHOCYTES % (AUTO) 16.9 % (20.5-51.5); MEAN CORPUSCULAR HEMOGLOBIN 30.2 uug (24.7-32.8); MEAN CORPUSCULAR HGB CONC 34 g/dL (32.3-35.6); MEAN CORPUSCULAR VOLUME 88.9 fL (75.5-95.3); MONOCYTES # (AUTO) 0.3 K/uL (0.1-1.30); MONOCYTES % (AUTO) 4.2 % (0.0-11.0); NEUTROPHILS # (AUTO) 5.8 K/uL (1.8-8.9); NEUTROPHILS % (AUTO) 75.3 % (38.5-71.5); PLATELET COUNT (AUTO) 251 K/uL (179-408); RED BLOOD CELL COUNT(AUTO) 4.12 MIL/uL (3.63-4.92); RED CELL DISTRIBUTION WIDTH 12.7 % (12.3-17.7); WHITE BLOOD COUNT (AUTO) 7.7 K/uL (3.8-11.8)
[2023-02-27 07:56] LABS: CALCIUM 9.5 mg/dL (8.5-10.1); CREATININE 0.6 mg/dL (0.6-1.3); MAGNESIUM 2.3 mg/dL (1.8-2.4); PHOSPHOROUS 4.1 mg/dL (2.5-4.9); POTASSIUM 4.8 mmol/L (3.5-5.1)
[2023-02-27 07:58] VITALS: TEMP 98.3
[2023-02-27] MEDS: levETIRAcetam 500 MG/5 ML LIQUID UDC GT SCH ×2 (08:26→20:35)
[2023-02-27] MEDS: LACOSAMIDE 100 MG/10 ML UDC GT SCH ×2 (08:26→20:35)
[2023-02-27 09:00] VITALS: O2SAT 98
[2023-02-27] MEDS: TIZANIDINE HCL 4 MG TABLET GT SCH ×2 (09:33→18:49)
[2023-02-27] MEDS: METOCLOPRAMIDE HCL 10 MG TABLET GT SCH ×3 (09:33→18:49)
[2023-02-27] MEDS: [UNRECOGNIZED DRUG - OTHER] TP SCH (09:33)
[2023-02-27] MEDS: HYDROGEN PEROXIDE 3% 118 ML BOTTLE TOP SCH ×2 (09:33→22:32)
[2023-02-27] MEDS: REMEDY ESSENTIAL ZINC PASTE 113 GM TP SCH ×2 (09:34→22:30)
[2023-02-27 19:49] VITALS: TEMP 98.1
[2023-02-27 20:18] VITALS: O2SAT 99
[2023-02-27] MEDS: MELATONIN 5MG TABLET GT SCH (22:30)
[2023-02-27] MEDS: RIVAROXABAN 10 MG TABLET GT SCH (22:30)
[2023-02-28] MEDS: VITAL AF 1.2 1,000 ML LIQUID GT PRN (02:30)
[2023-02-28] MEDS: FAMOTIDINE 20 MG TABLET GT SCH ×2 (06:14→18:34)
[2023-02-28 07:42] VITALS: TEMP 98.4
[2023-02-28] MEDS: levETIRAcetam 500 MG/5 ML LIQUID UDC GT SCH ×2 (08:00→14:05)
[2023-02-28] MEDS: LACOSAMIDE 100 MG/10 ML UDC GT SCH ×2 (08:00→20:32)
[2023-02-28] MEDS: REMEDY ESSENTIAL ZINC PASTE 113 GM TP SCH ×2 (09:00→20:33)
[2023-02-28] MEDS: HYDROGEN PEROXIDE 3% 118 ML BOTTLE TOP SCH ×2 (09:00→20:18)
[2023-02-28] MEDS: METOCLOPRAMIDE HCL 10 MG TABLET GT SCH ×3 (09:06→18:34)
[2023-02-28] MEDS: TIZANIDINE HCL 4 MG TABLET GT SCH ×2 (09:06→18:34)
[2023-02-28 20:20] VITALS: O2SAT 98
[2023-02-28] MEDS: MELATONIN 5MG TABLET GT SCH (20:32)
[2023-02-28] MEDS: RIVAROXABAN 10 MG TABLET GT SCH (20:33)
[2023-03-01] MEDS: FAMOTIDINE 20 MG TABLET GT SCH ×2 (05:24→18:37)
[2023-03-01 07:31] VITALS: TEMP 98.2
[2023-03-01] MEDS: HYDROGEN PEROXIDE 3% 118 ML BOTTLE TOP SCH ×2 (07:33→23:38)
[2023-03-01] MEDS: levETIRAcetam 500 MG/5 ML LIQUID UDC GT SCH ×2 (08:00→20:00)
[2023-03-01] MEDS: LACOSAMIDE 100 MG/10 ML UDC GT SCH ×2 (08:00→20:00)
[2023-03-01] MEDS: METOCLOPRAMIDE HCL 10 MG TABLET GT SCH ×3 (09:36→18:37)
[2023-03-01] MEDS: [UNRECOGNIZED DRUG - OTHER] TP SCH (09:37)
[2023-03-01] MEDS: TIZANIDINE HCL 4 MG TABLET GT SCH ×2 (09:37→18:37)
[2023-03-01] MEDS: REMEDY ESSENTIAL ZINC PASTE 113 GM TP SCH ×2 (09:37→21:00)
[2023-03-01 12:02] VITALS: O2SAT 98
[2023-03-01] MEDS: MAGNESIUM HYDROXIDE 30 ML LIQUID UDC GT PRN (12:16)
[2023-03-01] MEDS: VITAL AF 1.2 1,000 ML LIQUID GT PRN (14:04)
[2023-03-01] MEDS: BISACODYL 10 MG SUPP.RECT RC PRN (15:15)
[2023-03-01 20:00] VITALS: TEMP 97
[2023-03-01] MEDS: RIVAROXABAN 10 MG TABLET GT SCH (21:00)
[2023-03-01] MEDS: MELATONIN 5MG TABLET GT SCH (21:00)
[2023-03-02 02:08] VITALS: O2SAT 99
[2023-03-02] MEDS: FAMOTIDINE 20 MG TABLET GT SCH ×2 (06:16→18:14)
[2023-03-02] MEDS: levETIRAcetam 500 MG/5 ML LIQUID UDC GT SCH ×2 (07:50→20:25)
[2023-03-02] MEDS: TIZANIDINE HCL 4 MG TABLET GT SCH ×2 (07:51→18:13)
[2023-03-02] MEDS: METOCLOPRAMIDE HCL 10 MG TABLET GT SCH ×3 (07:51→18:14)
[2023-03-02] MEDS: REMEDY ESSENTIAL ZINC PASTE 113 GM TP SCH ×2 (07:52→20:26)
[2023-03-02] MEDS: LACOSAMIDE 100 MG/10 ML UDC GT SCH ×2 (07:56→20:25)
[2023-03-02 08:17] VITALS: TEMP 98.2
[2023-03-02] MEDS: HYDROGEN PEROXIDE 3% 118 ML BOTTLE TOP SCH ×2 (09:00→19:32)
[2023-03-02 20:00] VITALS: TEMP 98
[2023-03-02] MEDS: MELATONIN 5MG TABLET GT SCH (20:25)
[2023-03-02 20:38] VITALS: O2SAT 98
[2023-03-02] MEDS: RIVAROXABAN 10 MG TABLET GT SCH (21:00)
[2023-03-03 04:36] VITALS: O2SAT 98
[2023-03-03] MEDS: FAMOTIDINE 20 MG TABLET GT SCH ×2 (06:59→18:55)
[2023-03-03 08:08] VITALS: TEMP 97.2
[2023-03-03] MEDS: levETIRAcetam 500 MG/5 ML LIQUID UDC GT SCH ×2 (08:54→20:15)
[2023-03-03] MEDS: LACOSAMIDE 100 MG/10 ML UDC GT SCH ×2 (08:55→20:15)
[2023-03-03] MEDS: METOCLOPRAMIDE HCL 10 MG TABLET GT SCH ×3 (08:55→18:55)
[2023-03-03] MEDS: TIZANIDINE HCL 4 MG TABLET GT SCH ×2 (08:56→18:55)
[2023-03-03] MEDS: REMEDY ESSENTIAL ZINC PASTE 113 GM TP SCH ×2 (08:56→20:15)
[2023-03-03] MEDS: [UNRECOGNIZED DRUG - OTHER] TP SCH (08:56)
[2023-03-03 16:42] VITALS: O2SAT 98
[2023-03-03] MEDS: HYDROGEN PEROXIDE 3% 118 ML BOTTLE TOP SCH (19:13)
[2023-03-03 19:25] VITALS: O2SAT 98
[2023-03-03] MEDS: MELATONIN 5MG TABLET GT SCH (20:15)
[2023-03-03] MEDS: RIVAROXABAN 10 MG TABLET GT SCH (21:00)
[2023-03-04] MEDS: FAMOTIDINE 20 MG TABLET GT SCH ×2 (06:18→18:47)
[2023-03-04] MEDS: levETIRAcetam 500 MG/5 ML LIQUID UDC GT SCH ×2 (08:11→20:23)
[2023-03-04] MEDS: METOCLOPRAMIDE HCL 10 MG TABLET GT SCH ×3 (08:12→18:47)
[2023-03-04] MEDS: LACOSAMIDE 100 MG/10 ML UDC GT SCH ×2 (08:12→20:23)
[2023-03-04] MEDS: TIZANIDINE HCL 4 MG TABLET GT SCH ×2 (08:13→18:47)
[2023-03-04] MEDS: REMEDY ESSENTIAL ZINC PASTE 113 GM TP SCH ×2 (08:13→20:23)
[2023-03-04] MEDS: HYDROGEN PEROXIDE 3% 118 ML BOTTLE TOP SCH ×2 (08:19→19:22)
[2023-03-04] MEDS: VITAL AF 1.2 1,000 ML LIQUID GT PRN (09:07)
[2023-03-04 11:46] VITALS: TEMP 97.5
[2023-03-04 13:48] VITALS: O2SAT 98
[2023-03-04] MEDS: MELATONIN 5MG TABLET GT SCH (20:23)
[2023-03-04 20:46] VITALS: O2SAT 98
[2023-03-04] MEDS: RIVAROXABAN 10 MG TABLET GT SCH (21:00)
[2023-03-05] MEDS: FAMOTIDINE 20 MG TABLET GT SCH ×2 (06:17→18:53)
[2023-03-05 08:02] VITALS: TEMP 97.9
[2023-03-05] MEDS: levETIRAcetam 500 MG/5 ML LIQUID UDC GT SCH ×2 (08:55→20:22)
[2023-03-05] MEDS: LACOSAMIDE 100 MG/10 ML UDC GT SCH ×2 (08:56→20:22)
[2023-03-05] MEDS: METOCLOPRAMIDE HCL 10 MG TABLET GT SCH ×3 (08:56→18:53)
[2023-03-05] MEDS: REMEDY ESSENTIAL ZINC PASTE 113 GM TP SCH ×2 (08:56→20:22)
[2023-03-05] MEDS: TIZANIDINE HCL 4 MG TABLET GT SCH ×2 (08:56→18:55)
[2023-03-05] MEDS: [UNRECOGNIZED DRUG - OTHER] TP SCH (09:00)
[2023-03-05 09:05] VITALS: O2SAT 98
[2023-03-05] MEDS: HYDROGEN PEROXIDE 3% 118 ML BOTTLE TOP SCH ×2 (09:46→19:16)
[2023-03-05] MEDS: VITAL AF 1.2 1,000 ML LIQUID GT PRN (14:52)
[2023-03-05] MEDS: MELATONIN 5MG TABLET GT SCH (20:22)
[2023-03-05] MEDS: RIVAROXABAN 10 MG TABLET GT SCH (21:00)
[2023-03-05 21:01] VITALS: TEMP 97
[2023-03-05 21:51] VITALS: O2SAT 98
[2023-03-06] MEDS: FAMOTIDINE 20 MG TABLET GT SCH ×2 (06:46→18:47)
[2023-03-06 07:29] VITALS: TEMP 98.3
[2023-03-06 08:00] VITALS: O2SAT 98
[2023-03-06] MEDS: levETIRAcetam 500 MG/5 ML LIQUID UDC GT SCH ×2 (08:00→20:00)
[2023-03-06] MEDS: LACOSAMIDE 100 MG/10 ML UDC GT SCH ×2 (08:00→20:00)
[2023-03-06] MEDS: HYDROGEN PEROXIDE 3% 118 ML BOTTLE TOP SCH ×2 (09:11→19:14)
[2023-03-06] MEDS: REMEDY ESSENTIAL ZINC PASTE 113 GM TP SCH ×2 (09:14→21:00)
[2023-03-06] MEDS: METOCLOPRAMIDE HCL 10 MG TABLET GT SCH ×3 (09:14→18:47)
[2023-03-06] MEDS: TIZANIDINE HCL 4 MG TABLET GT SCH ×2 (09:14→18:47)
[2023-03-06 11:00] VITALS: O2SAT 99
[2023-03-06 15:00] VITALS: O2SAT 99
[2023-03-06 20:00] VITALS: TEMP 98.4
[2023-03-06] MEDS: RIVAROXABAN 10 MG TABLET GT SCH (21:00)
[2023-03-06] MEDS: MELATONIN 5MG TABLET GT SCH (21:00)
[2023-03-07] MEDS: FAMOTIDINE 20 MG TABLET GT SCH ×2 (05:43→18:59)
[2023-03-07 07:30] VITALS: TEMP 97.4
[2023-03-07] MEDS: levETIRAcetam 500 MG/5 ML LIQUID UDC GT SCH ×2 (08:00→20:25)
[2023-03-07] MEDS: LACOSAMIDE 100 MG/10 ML UDC GT SCH ×2 (08:00→20:25)
[2023-03-07] MEDS: HYDROGEN PEROXIDE 3% 118 ML BOTTLE TOP SCH ×2 (08:15→19:18)
[2023-03-07] MEDS: [UNRECOGNIZED DRUG - OTHER] TP SCH (09:00)
[2023-03-07] MEDS: METOCLOPRAMIDE HCL 10 MG TABLET GT SCH ×3 (09:09→18:59)
[2023-03-07] MEDS: TIZANIDINE HCL 4 MG TABLET GT SCH ×2 (09:09→19:00)
[2023-03-07] MEDS: REMEDY ESSENTIAL ZINC PASTE 113 GM TP SCH ×2 (09:09→21:00)
[2023-03-07 09:15] VITALS: O2SAT 98
[2023-03-07 19:25] VITALS: O2SAT 98
[2023-03-07 20:00] VITALS: TEMP 98.8
[2023-03-07] MEDS: RIVAROXABAN 10 MG TABLET GT SCH (21:00)
[2023-03-07] MEDS: MELATONIN 5MG TABLET GT SCH (21:00)
[2023-03-08] MEDS: VITAL AF 1.2 1,000 ML LIQUID GT PRN (00:32)
[2023-03-08] MEDS: FAMOTIDINE 20 MG TABLET GT SCH ×2 (05:45→18:49)
[2023-03-08 07:24] VITALS: TEMP 98.5
[2023-03-08] MEDS: levETIRAcetam 500 MG/5 ML LIQUID UDC GT SCH ×2 (08:28→20:12)
[2023-03-08] MEDS: TIZANIDINE HCL 4 MG TABLET GT SCH ×2 (08:28→18:49)
[2023-03-08] MEDS: METOCLOPRAMIDE HCL 10 MG TABLET GT SCH ×3 (08:28→18:49)
[2023-03-08] MEDS: LACOSAMIDE 100 MG/10 ML UDC GT SCH ×2 (08:28→20:12)
[2023-03-08] MEDS: REMEDY ESSENTIAL ZINC PASTE 113 GM TP SCH ×2 (08:28→21:00)
[2023-03-08 08:55] VITALS: O2SAT 98
[2023-03-08] MEDS: HYDROGEN PEROXIDE 3% 118 ML BOTTLE TOP SCH ×2 (09:46→21:40)
[2023-03-08 20:00] VITALS: TEMP 97.6
[2023-03-08 20:25] VITALS: O2SAT 98
[2023-03-08] MEDS: MELATONIN 5MG TABLET GT SCH (21:00)
[2023-03-08] MEDS: RIVAROXABAN 10 MG TABLET GT SCH (21:00)
[2023-03-09] MEDS: FAMOTIDINE 20 MG TABLET GT SCH ×2 (05:22→19:00)
[2023-03-09 07:20] VITALS: TEMP 97.9
[2023-03-09] MEDS: HYDROGEN PEROXIDE 3% 118 ML BOTTLE TOP SCH ×2 (07:26→19:10)
[2023-03-09] MEDS: levETIRAcetam 500 MG/5 ML LIQUID UDC GT SCH ×2 (08:02→20:00)
[2023-03-09] MEDS: LACOSAMIDE 100 MG/10 ML UDC GT SCH ×2 (08:03→20:00)
[2023-03-09] MEDS: [UNRECOGNIZED DRUG - OTHER] TP SCH (08:03)
[2023-03-09] MEDS: REMEDY ESSENTIAL ZINC PASTE 113 GM TP SCH ×2 (08:03→20:40)
[2023-03-09] MEDS: METOCLOPRAMIDE HCL 10 MG TABLET GT SCH ×3 (08:03→19:00)
[2023-03-09] MEDS: TIZANIDINE HCL 4 MG TABLET GT SCH ×2 (08:03→19:00)
[2023-03-09 10:43] VITALS: O2SAT 98
[2023-03-09 19:55] VITALS: O2SAT 98
[2023-03-09] MEDS: MELATONIN 5MG TABLET GT SCH (20:39)
[2023-03-09] MEDS: RIVAROXABAN 10 MG TABLET GT SCH (21:01)
[2023-03-10] MEDS: VITAL AF 1.2 1,000 ML LIQUID GT PRN (03:40)
[2023-03-10] MEDS: FAMOTIDINE 20 MG TABLET GT SCH ×2 (06:01→18:26)
[2023-03-10 07:15] VITALS: O2SAT 98
[2023-03-10 08:00] VITALS: TEMP 97.8
[2023-03-10] MEDS: levETIRAcetam 500 MG/5 ML LIQUID UDC GT SCH ×2 (08:02→20:00)
[2023-03-10] MEDS: METOCLOPRAMIDE HCL 10 MG TABLET GT SCH ×3 (08:03→18:26)
[2023-03-10] MEDS: REMEDY ESSENTIAL ZINC PASTE 113 GM TP SCH ×2 (08:03→20:00)
[2023-03-10] MEDS: TIZANIDINE HCL 4 MG TABLET GT SCH ×2 (08:03→18:26)
[2023-03-10] MEDS: HYDROGEN PEROXIDE 3% 118 ML BOTTLE TOP SCH ×2 (08:04→19:36)
[2023-03-10] MEDS: LACOSAMIDE 100 MG/10 ML UDC GT SCH ×2 (08:13→20:00)
[2023-03-10 11:00] VITALS: O2SAT 99
[2023-03-10 13:46] VITALS: O2SAT 99
[2023-03-10 20:00] VITALS: TEMP 97.2; O2SAT 98
[2023-03-10] MEDS: MELATONIN 5MG TABLET GT SCH (21:00)
[2023-03-10] MEDS: RIVAROXABAN 10 MG TABLET GT SCH (21:00)
[2023-03-11] MEDS: FAMOTIDINE 20 MG TABLET GT SCH ×2 (05:47→18:30)
[2023-03-11] MEDS: REMEDY ESSENTIAL ZINC PASTE 113 GM TP SCH ×2 (08:29→21:00)
[2023-03-11] MEDS: levETIRAcetam 500 MG/5 ML LIQUID UDC GT SCH ×2 (08:29→20:22)
[2023-03-11] MEDS: LACOSAMIDE 100 MG/10 ML UDC GT SCH ×2 (08:29→20:22)
[2023-03-11] MEDS: TIZANIDINE HCL 4 MG TABLET GT SCH ×2 (08:29→18:30)
[2023-03-11] MEDS: [UNRECOGNIZED DRUG - OTHER] TP SCH (08:29)
[2023-03-11] MEDS: METOCLOPRAMIDE HCL 10 MG TABLET GT SCH ×3 (08:29→18:30)
[2023-03-11] MEDS: HYDROGEN PEROXIDE 3% 118 ML BOTTLE TOP SCH ×2 (09:00→21:00)
[2023-03-11 09:30] VITALS: O2SAT 98
[2023-03-11] MEDS: VITAL AF 1.2 1,000 ML LIQUID GT PRN (18:30)
[2023-03-11 19:50] VITALS: O2SAT 99
[2023-03-11 20:00] VITALS: TEMP 97.8
[2023-03-11] MEDS: MELATONIN 5MG TABLET GT SCH (21:00)
[2023-03-11] MEDS: RIVAROXABAN 10 MG TABLET GT SCH (21:00)
[2023-03-12] MEDS: FAMOTIDINE 20 MG TABLET GT SCH (05:18)
[2023-03-12] MEDS: BISACODYL 10 MG SUPP.RECT RC PRN (05:36)
[2023-03-12] MEDS: HYDROGEN PEROXIDE 3% 118 ML BOTTLE TOP SCH ×2 (07:57→21:00)
[2023-03-12] MEDS: LACOSAMIDE 100 MG/10 ML UDC GT SCH ×2 (08:00→20:00)
[2023-03-12] MEDS: levETIRAcetam 500 MG/5 ML LIQUID UDC GT SCH ×2 (08:00→20:00)
[2023-03-12 08:29] VITALS: TEMP 98
[2023-03-12] MEDS: TIZANIDINE HCL 4 MG TABLET GT SCH ×2 (09:21→18:30)
[2023-03-12] MEDS: REMEDY ESSENTIAL ZINC PASTE 113 GM TP SCH ×2 (09:21→21:00)
[2023-03-12] MEDS: METOCLOPRAMIDE HCL 10 MG TABLET GT SCH ×3 (09:21→18:30)
[2023-03-12 10:00] VITALS: O2SAT 98
[2023-03-12 11:55] VITALS: O2SAT 99
[2023-03-12 16:00] VITALS: O2SAT 99
[2023-03-12 20:00] VITALS: TEMP 98.3
[2023-03-12] MEDS: RIVAROXABAN 10 MG TABLET GT SCH (21:00)
[2023-03-12] MEDS: MELATONIN 5MG TABLET GT SCH (21:00)
[2023-03-13] MEDS: FAMOTIDINE 20 MG TABLET GT SCH ×2 (06:00→18:32)
[2023-03-13 07:44] VITALS: O2SAT 98
[2023-03-13 08:00] VITALS: TEMP 98.1
[2023-03-13] MEDS: levETIRAcetam 500 MG/5 ML LIQUID UDC GT SCH ×2 (08:59→20:00)
[2023-03-13] MEDS: LACOSAMIDE 100 MG/10 ML UDC GT SCH ×2 (08:59→20:00)
[2023-03-13] MEDS: HYDROGEN PEROXIDE 3% 118 ML BOTTLE TOP SCH ×2 (09:00→19:23)
[2023-03-13] MEDS: REMEDY ESSENTIAL ZINC PASTE 113 GM TP SCH ×2 (09:06→21:00)
[2023-03-13] MEDS: [UNRECOGNIZED DRUG - OTHER] TP SCH (09:06)
[2023-03-13] MEDS: TIZANIDINE HCL 4 MG TABLET GT SCH ×2 (09:06→18:33)
[2023-03-13] MEDS: METOCLOPRAMIDE HCL 10 MG TABLET GT SCH ×3 (09:06→18:33)
[2023-03-13 11:52] VITALS: O2SAT 99
[2023-03-13] MEDS ORDERED: COVID-19 VACC, SPIKEVAX (PHA) 50 MCG/0.5 ML VIAL IM ONE (14:00)
[2023-03-13 14:22] VITALS: O2SAT 99
[2023-03-13 19:25] VITALS: O2SAT 98
[2023-03-13] MEDS: RIVAROXABAN 10 MG TABLET GT SCH (21:00)
[2023-03-13] MEDS: MELATONIN 5MG TABLET GT SCH (21:00)
[2023-03-14] VITALS (7 sets, daily range): TEMP 98.5–99.2; O2SAT 98–99
[2023-03-14] MEDS: FAMOTIDINE 20 MG TABLET GT SCH ×2 (05:29→18:52)
[2023-03-14] MEDS: levETIRAcetam 500 MG/5 ML LIQUID UDC GT SCH ×2 (08:00→19:57)
[2023-03-14] MEDS: LACOSAMIDE 100 MG/10 ML UDC GT SCH ×2 (08:00→19:57)
[2023-03-14] MEDS: HYDROGEN PEROXIDE 3% 118 ML BOTTLE TOP SCH ×2 (09:00→21:18)
[2023-03-14] MEDS: METOCLOPRAMIDE HCL 10 MG TABLET GT SCH ×3 (09:02→18:53)
[2023-03-14] MEDS: TIZANIDINE HCL 4 MG TABLET GT SCH ×2 (09:03→18:53)
[2023-03-14] MEDS: REMEDY ESSENTIAL ZINC PASTE 113 GM TP SCH ×2 (09:03→21:00)
[2023-03-14] MEDS: MAGNESIUM HYDROXIDE 30 ML LIQUID UDC GT PRN (12:15)
[2023-03-14] MEDS: PEPTAMEN AF 1000ML BAG GT PRN (12:16)
[2023-03-14] MEDS: MELATONIN 5MG TABLET GT SCH (21:00)
[2023-03-14] MEDS: RIVAROXABAN 10 MG TABLET GT SCH (21:00)
[2023-03-15] VITALS (10 sets, daily range): TEMP 97.3–98.8; O2SAT 98–99
[2023-03-15] MEDS: FAMOTIDINE 20 MG TABLET GT SCH ×2 (05:43→18:55)
[2023-03-15] MEDS: BISACODYL 10 MG SUPP.RECT RC PRN (06:42)
[2023-03-15] MEDS: levETIRAcetam 500 MG/5 ML LIQUID UDC GT SCH ×2 (08:38→20:09)
[2023-03-15] MEDS: METOCLOPRAMIDE HCL 10 MG TABLET GT SCH ×3 (08:38→18:55)
[2023-03-15] MEDS: LACOSAMIDE 100 MG/10 ML UDC GT SCH ×2 (08:38→20:09)
[2023-03-15] MEDS: REMEDY ESSENTIAL ZINC PASTE 113 GM TP SCH ×2 (08:39→21:00)
[2023-03-15] MEDS: TIZANIDINE HCL 4 MG TABLET GT SCH ×2 (08:39→18:56)
[2023-03-15] MEDS: [UNRECOGNIZED DRUG - OTHER] TP SCH (09:00)
[2023-03-15] MEDS: HYDROGEN PEROXIDE 3% 118 ML BOTTLE TOP SCH ×2 (09:00→20:56)
[2023-03-15] MEDS: PEPTAMEN AF 1000ML BAG GT PRN (20:10)
[2023-03-15] MEDS: MELATONIN 5MG TABLET GT SCH (21:00)
[2023-03-15] MEDS: RIVAROXABAN 10 MG TABLET GT SCH (21:00)
[2023-03-16] VITALS (11 sets, daily range): TEMP 97.9–98; O2SAT 98–99
[2023-03-16] MEDS: FAMOTIDINE 20 MG TABLET GT SCH ×2 (05:17→18:46)
[2023-03-16] MEDS: HYDROGEN PEROXIDE 3% 118 ML BOTTLE TOP SCH ×2 (08:41→19:13)
[2023-03-16] MEDS: LACOSAMIDE 100 MG/10 ML UDC GT SCH ×2 (09:00→20:34)
[2023-03-16] MEDS: levETIRAcetam 500 MG/5 ML LIQUID UDC GT SCH ×2 (09:00→20:34)
[2023-03-16] MEDS: METOCLOPRAMIDE HCL 10 MG TABLET GT SCH ×3 (09:10→18:46)
[2023-03-16] MEDS: REMEDY ESSENTIAL ZINC PASTE 113 GM TP SCH ×2 (09:10→21:00)
[2023-03-16] MEDS: TIZANIDINE HCL 4 MG TABLET GT SCH ×2 (09:10→18:46)
[2023-03-16] MEDS: MELATONIN 5MG TABLET GT SCH (21:00)
[2023-03-16] MEDS: RIVAROXABAN 10 MG TABLET GT SCH (21:00)
[2023-03-17] MEDS: FAMOTIDINE 20 MG TABLET GT SCH ×2 (05:19→19:00)
[2023-03-17] MEDS: HYDROGEN PEROXIDE 3% 118 ML BOTTLE TOP SCH ×2 (07:22→19:26)
[2023-03-17 08:00] VITALS: TEMP 97.8
[2023-03-17] MEDS: LACOSAMIDE 100 MG/10 ML UDC GT SCH ×2 (08:00→20:10)
[2023-03-17] MEDS: levETIRAcetam 500 MG/5 ML LIQUID UDC GT SCH ×2 (08:00→20:10)
[2023-03-17] MEDS: METOCLOPRAMIDE HCL 10 MG TABLET GT SCH ×3 (09:50→19:00)
[2023-03-17] MEDS: REMEDY ESSENTIAL ZINC PASTE 113 GM TP SCH ×2 (09:51→21:00)
[2023-03-17] MEDS: [UNRECOGNIZED DRUG - OTHER] TP SCH (09:51)
[2023-03-17] MEDS: TIZANIDINE HCL 4 MG TABLET GT SCH ×2 (09:51→19:00)
[2023-03-17 10:32] VITALS: O2SAT 98
[2023-03-17 20:00] VITALS: TEMP 98.3
[2023-03-17] MEDS: MELATONIN 5MG TABLET GT SCH (21:00)
[2023-03-17] MEDS: RIVAROXABAN 10 MG TABLET GT SCH (21:00)
[2023-03-17 21:11] VITALS: O2SAT 99
[2023-03-18] MEDS: FAMOTIDINE 20 MG TABLET GT SCH ×2 (06:07→18:50)
[2023-03-18 07:51] VITALS: TEMP 98.5
[2023-03-18] MEDS: levETIRAcetam 500 MG/5 ML LIQUID UDC GT SCH ×2 (08:34→20:05)
[2023-03-18] MEDS: METOCLOPRAMIDE HCL 10 MG TABLET GT SCH ×3 (08:34→18:50)
[2023-03-18] MEDS: TIZANIDINE HCL 4 MG TABLET GT SCH ×2 (08:34→18:50)
[2023-03-18] MEDS: LACOSAMIDE 100 MG/10 ML UDC GT SCH ×2 (08:34→20:05)
[2023-03-18] MEDS: HYDROGEN PEROXIDE 3% 118 ML BOTTLE TOP SCH ×2 (08:59→21:21)
[2023-03-18] MEDS: REMEDY ESSENTIAL ZINC PASTE 113 GM TP SCH ×2 (09:01→21:00)
[2023-03-18] MEDS: PEPTAMEN AF 1000ML BAG GT PRN (12:32)
[2023-03-18 14:15] VITALS: O2SAT 98
[2023-03-18 20:21] VITALS: TEMP 98.6
[2023-03-18 20:36] VITALS: O2SAT 98
[2023-03-18] MEDS: MELATONIN 5MG TABLET GT SCH (21:00)
[2023-03-18] MEDS: RIVAROXABAN 10 MG TABLET GT SCH (22:46)
[2023-03-19] MEDS: BISACODYL 10 MG SUPP.RECT RC PRN (04:31)
[2023-03-19] MEDS: FAMOTIDINE 20 MG TABLET GT SCH ×2 (06:34→18:34)
[2023-03-19 08:05] VITALS: TEMP 97.1
[2023-03-19] MEDS: TIZANIDINE HCL 4 MG TABLET GT SCH ×2 (08:12→18:34)
[2023-03-19] MEDS: levETIRAcetam 500 MG/5 ML LIQUID UDC GT SCH ×2 (08:12→20:39)
[2023-03-19] MEDS: [UNRECOGNIZED DRUG - OTHER] TP SCH (08:12)
[2023-03-19] MEDS: REMEDY ESSENTIAL ZINC PASTE 113 GM TP SCH ×2 (08:12→21:00)
[2023-03-19] MEDS: LACOSAMIDE 100 MG/10 ML UDC GT SCH ×2 (08:12→20:39)
[2023-03-19] MEDS: METOCLOPRAMIDE HCL 10 MG TABLET GT SCH ×3 (08:12→18:34)
[2023-03-19] MEDS: HYDROGEN PEROXIDE 3% 118 ML BOTTLE TOP SCH ×2 (09:00→21:46)
[2023-03-19 20:26] VITALS: TEMP 98.6
[2023-03-19 20:29] VITALS: TEMP 98
[2023-03-19] MEDS: RIVAROXABAN 10 MG TABLET GT SCH (21:00)
[2023-03-19] MEDS: MELATONIN 5MG TABLET GT SCH (21:00)
[2023-03-20 01:36] VITALS: O2SAT 99
[2023-03-20] MEDS: FAMOTIDINE 20 MG TABLET GT SCH ×2 (06:19→19:12)
[2023-03-20 07:41] VITALS: TEMP 98
[2023-03-20] MEDS: HYDROGEN PEROXIDE 3% 118 ML BOTTLE TOP SCH ×2 (07:56→19:14)
[2023-03-20] MEDS: LACOSAMIDE 100 MG/10 ML UDC GT SCH ×2 (08:00→20:10)
[2023-03-20] MEDS: levETIRAcetam 500 MG/5 ML LIQUID UDC GT SCH ×2 (08:00→20:10)
[2023-03-20] MEDS: TIZANIDINE HCL 4 MG TABLET GT SCH ×2 (09:44→19:13)
[2023-03-20] MEDS: REMEDY ESSENTIAL ZINC PASTE 113 GM TP SCH ×2 (09:44→21:00)
[2023-03-20] MEDS: METOCLOPRAMIDE HCL 10 MG TABLET GT SCH ×3 (09:44→19:13)
[2023-03-20 11:28] VITALS: O2SAT 98
[2023-03-20 19:00] VITALS: O2SAT 98
[2023-03-20] MEDS: ACETAMINOPHEN 650 MG/20 ML UDC- SA PATIENTS-PAIN ONLY GT PRN (19:55)
[2023-03-20 20:00] VITALS: TEMP 98.6
[2023-03-20] MEDS: MELATONIN 5MG TABLET GT SCH (21:00)
[2023-03-20] MEDS: RIVAROXABAN 10 MG TABLET GT SCH (21:00)
[2023-03-21] MEDS: FAMOTIDINE 20 MG TABLET GT SCH ×2 (06:00→18:57)
[2023-03-21 07:55] VITALS: TEMP 98.5
[2023-03-21] MEDS: LACOSAMIDE 100 MG/10 ML UDC GT SCH ×2 (08:00→20:38)
[2023-03-21] MEDS: levETIRAcetam 500 MG/5 ML LIQUID UDC GT SCH ×2 (08:00→20:38)
[2023-03-21 08:40] VITALS: O2SAT 98
[2023-03-21] MEDS: HYDROGEN PEROXIDE 3% 118 ML BOTTLE TOP SCH ×2 (09:16→19:31)
[2023-03-21] MEDS: TIZANIDINE HCL 4 MG TABLET GT SCH ×2 (09:37→18:57)
[2023-03-21] MEDS: METOCLOPRAMIDE HCL 10 MG TABLET GT SCH ×3 (09:37→18:57)
[2023-03-21] MEDS: REMEDY ESSENTIAL ZINC PASTE 113 GM TP SCH ×2 (09:38→20:39)
[2023-03-21] MEDS: [UNRECOGNIZED DRUG - OTHER] TP SCH (09:38)
[2023-03-21 16:04] VITALS: O2SAT 98
[2023-03-21] MEDS: PEPTAMEN AF 1000ML BAG GT PRN (16:39)
[2023-03-21 20:00] VITALS: TEMP 97
[2023-03-21] MEDS: MELATONIN 5MG TABLET GT SCH (20:38)
[2023-03-21] MEDS: RIVAROXABAN 10 MG TABLET GT SCH (20:39)
[2023-03-21 23:18] VITALS: O2SAT 98
[2023-03-22] MEDS: FAMOTIDINE 20 MG TABLET GT SCH ×2 (06:14→19:02)
[2023-03-22 07:35] VITALS: TEMP 97.8
[2023-03-22] MEDS: levETIRAcetam 500 MG/5 ML LIQUID UDC GT SCH ×2 (08:30→20:21)
[2023-03-22] MEDS: LACOSAMIDE 100 MG/10 ML UDC GT SCH ×2 (08:30→20:21)
[2023-03-22 08:45] VITALS: O2SAT 98
[2023-03-22] MEDS: HYDROGEN PEROXIDE 3% 118 ML BOTTLE TOP SCH ×2 (09:00→21:59)
[2023-03-22] MEDS: METOCLOPRAMIDE HCL 10 MG TABLET GT SCH ×3 (09:30→19:02)
[2023-03-22] MEDS: TIZANIDINE HCL 4 MG TABLET GT SCH ×2 (09:31→19:02)
[2023-03-22] MEDS: REMEDY ESSENTIAL ZINC PASTE 113 GM TP SCH ×2 (09:31→21:00)
[2023-03-22 19:28] VITALS: O2SAT 99
[2023-03-22 20:00] VITALS: TEMP 97.8
[2023-03-22] MEDS: RIVAROXABAN 10 MG TABLET GT SCH (21:00)
[2023-03-22] MEDS: MELATONIN 5MG TABLET GT SCH (21:00)
[2023-03-23] MEDS: PEPTAMEN AF 1000ML BAG GT PRN (04:38)
[2023-03-23] MEDS: FAMOTIDINE 20 MG TABLET GT SCH ×2 (06:04→18:54)
[2023-03-23 07:19] VITALS: TEMP 97
[2023-03-23] MEDS: HYDROGEN PEROXIDE 3% 118 ML BOTTLE TOP SCH ×2 (08:17→19:09)
[2023-03-23 08:41] LABS: CALCIUM 9.3 mg/dL (8.5-10.1); CARBON DIOXIDE 24 mmol/L (21-32); CHLORIDE 104 mmol/L (98-107); CREATININE 0.5 mg/dL (0.6-1.3); GLUCOSE 91 mg/dL (74-106); MAGNESIUM 2.3 mg/dL (1.8-2.4); PHOSPHOROUS 4.3 mg/dL (2.5-4.9); POTASSIUM 4.5 mmol/L (3.5-5.1); SODIUM SERUM 141 mmol/L (136-145); UREA NITROGEN, BLOOD 13 mg/dL (7-18)
[2023-03-23 08:45] VITALS: O2SAT 98
[2023-03-23] MEDS: [UNRECOGNIZED DRUG - OTHER] TP SCH (08:55)
[2023-03-23] MEDS: levETIRAcetam 500 MG/5 ML LIQUID UDC GT SCH ×2 (08:55→20:31)
[2023-03-23] MEDS: LACOSAMIDE 100 MG/10 ML UDC GT SCH ×2 (08:55→20:31)
[2023-03-23] MEDS: TIZANIDINE HCL 4 MG TABLET GT SCH ×2 (08:55→18:54)
[2023-03-23] MEDS: REMEDY ESSENTIAL ZINC PASTE 113 GM TP SCH ×2 (08:55→21:00)
[2023-03-23] MEDS: METOCLOPRAMIDE HCL 10 MG TABLET GT SCH ×3 (08:55→18:54)
[2023-03-23 10:26] LABS: BASOPHILS % (AUTO) 0.2 % (0.0-2.0); EOSINOPHILS # (AUTO) 0.2 K/uL (0.0-0.7); EOSINOPHILS % (AUTO) 2.2 % (0.0-7.0); HEMATOCRIT 37.7 % (31.2-41.9); HEMOGLOBIN 12.7 g/dL (10.9-14.3); LYMPHOCYTES # (AUTO) 1.4 K/uL (0.8-4.8); LYMPHOCYTES % (AUTO) 14.2 % (20.5-51.5); MEAN CORPUSCULAR HEMOGLOBIN 30.1 uug (24.7-32.8); MEAN CORPUSCULAR HGB CONC 34 g/dL (32.3-35.6); MEAN CORPUSCULAR VOLUME 89.8 fL (75.5-95.3); MONOCYTES # (AUTO) 0.5 K/uL (0.1-1.30); MONOCYTES % (AUTO) 4.9 % (0.0-11.0); NEUTROPHILS # (AUTO) 7.9 K/uL (1.8-8.9); NEUTROPHILS % (AUTO) 78.5 % (38.5-71.5); PLATELET COUNT (AUTO) 282 K/uL (179-408); RED CELL DISTRIBUTION WIDTH 12.8 % (12.3-17.7); WHITE BLOOD COUNT (AUTO) 10.1 K/uL (3.8-11.8)
[2023-03-23] MEDS: MAGNESIUM HYDROXIDE 30 ML LIQUID UDC GT PRN (13:00)
[2023-03-23 19:42] VITALS: O2SAT 98
[2023-03-23 20:00] VITALS: TEMP 97.9
[2023-03-23] MEDS: RIVAROXABAN 10 MG TABLET GT SCH (21:00)
[2023-03-23] MEDS: MELATONIN 5MG TABLET GT SCH (21:00)
[2023-03-24] MEDS: BISACODYL 10 MG SUPP.RECT RC PRN (05:26)
[2023-03-24] MEDS: FAMOTIDINE 20 MG TABLET GT SCH ×2 (05:33→18:56)
[2023-03-24 07:41] VITALS: TEMP 97.6
[2023-03-24] MEDS: METOCLOPRAMIDE HCL 10 MG TABLET GT SCH ×3 (08:13→18:56)
[2023-03-24] MEDS: HYDROGEN PEROXIDE 3% 118 ML BOTTLE TOP SCH ×2 (08:13→19:09)
[2023-03-24] MEDS: TIZANIDINE HCL 4 MG TABLET GT SCH ×2 (08:13→18:56)
[2023-03-24] MEDS: REMEDY ESSENTIAL ZINC PASTE 113 GM TP SCH ×2 (08:13→21:00)
[2023-03-24] MEDS: LACOSAMIDE 100 MG/10 ML UDC GT SCH ×2 (08:13→20:05)
[2023-03-24] MEDS: levETIRAcetam 500 MG/5 ML LIQUID UDC GT SCH ×2 (08:13→20:05)
[2023-03-24 11:10] VITALS: O2SAT 98
[2023-03-24] MEDS: PEPTAMEN AF 1000ML BAG GT PRN (11:49)
[2023-03-24] MEDS: MELATONIN 5MG TABLET GT SCH (21:00)
[2023-03-24] MEDS: RIVAROXABAN 10 MG TABLET GT SCH (21:00)
[2023-03-25 01:18] VITALS: O2SAT 98
[2023-03-25] MEDS: FAMOTIDINE 20 MG TABLET GT SCH ×2 (06:06→18:33)
[2023-03-25] MEDS: REMEDY ESSENTIAL ZINC PASTE 113 GM TP SCH ×2 (08:56→20:50)
[2023-03-25] MEDS: TIZANIDINE HCL 4 MG TABLET GT SCH ×2 (08:56→18:33)
[2023-03-25] MEDS: LACOSAMIDE 100 MG/10 ML UDC GT SCH ×2 (08:56→20:50)
[2023-03-25] MEDS: levETIRAcetam 500 MG/5 ML LIQUID UDC GT SCH ×2 (08:56→20:49)
[2023-03-25] MEDS: [UNRECOGNIZED DRUG - OTHER] TP SCH (08:56)
[2023-03-25] MEDS: METOCLOPRAMIDE HCL 10 MG TABLET GT SCH ×3 (08:56→18:33)
[2023-03-25] MEDS: HYDROGEN PEROXIDE 3% 118 ML BOTTLE TOP SCH ×2 (09:03→19:09)
[2023-03-25 09:30] VITALS: O2SAT 98
[2023-03-25 11:09] VITALS: TEMP 97.4
[2023-03-25] MEDS: PEPTAMEN AF 1000ML BAG GT PRN (14:56)
[2023-03-25 19:45] VITALS: O2SAT 98
[2023-03-25 19:56] VITALS: TEMP 97.9
[2023-03-25] MEDS: MELATONIN 5MG TABLET GT SCH (20:51)
[2023-03-25] MEDS: RIVAROXABAN 10 MG TABLET GT SCH (20:52)
[2023-03-26] MEDS: FAMOTIDINE 20 MG TABLET GT SCH ×2 (06:25→18:52)
[2023-03-26] MEDS: HYDROGEN PEROXIDE 3% 118 ML BOTTLE TOP SCH ×2 (07:20→21:59)
[2023-03-26 08:42] VITALS: TEMP 97.8
[2023-03-26] MEDS: METOCLOPRAMIDE HCL 10 MG TABLET GT SCH ×3 (08:59→18:52)
[2023-03-26] MEDS: levETIRAcetam 500 MG/5 ML LIQUID UDC GT SCH ×2 (08:59→20:03)
[2023-03-26] MEDS: TIZANIDINE HCL 4 MG TABLET GT SCH ×2 (08:59→18:52)
[2023-03-26] MEDS: REMEDY ESSENTIAL ZINC PASTE 113 GM TP SCH ×2 (08:59→21:30)
[2023-03-26] MEDS: LACOSAMIDE 100 MG/10 ML UDC GT SCH ×2 (08:59→20:04)
[2023-03-26 10:34] VITALS: O2SAT 98
[2023-03-26] MEDS: VITAL AF 1.2 1,000 ML LIQUID GT PRN (17:46)
[2023-03-26 20:00] VITALS: TEMP 98
[2023-03-26] MEDS: RIVAROXABAN 10 MG TABLET GT SCH (21:26)
[2023-03-26] MEDS: MELATONIN 5MG TABLET GT SCH (21:26)
[2023-03-27] MEDS: FAMOTIDINE 20 MG TABLET GT SCH ×2 (05:52→18:56)
[2023-03-27 07:25] VITALS: TEMP 98.4
[2023-03-27] MEDS: HYDROGEN PEROXIDE 3% 118 ML BOTTLE TOP SCH ×2 (07:39→21:00)
[2023-03-27] MEDS: TIZANIDINE HCL 4 MG TABLET GT SCH ×2 (08:23→18:56)
[2023-03-27] MEDS: [UNRECOGNIZED DRUG - OTHER] TP SCH (08:23)
[2023-03-27] MEDS: LACOSAMIDE 100 MG/10 ML UDC GT SCH ×2 (08:23→20:08)
[2023-03-27] MEDS: METOCLOPRAMIDE HCL 10 MG TABLET GT SCH ×3 (08:23→18:56)
[2023-03-27] MEDS: REMEDY ESSENTIAL ZINC PASTE 113 GM TP SCH ×2 (08:23→21:00)
[2023-03-27] MEDS: levETIRAcetam 500 MG/5 ML LIQUID UDC GT SCH ×2 (08:23→20:08)
[2023-03-27 10:50] VITALS: O2SAT 98
[2023-03-27 20:00] VITALS: TEMP 98.5
[2023-03-27] MEDS: VITAL AF 1.2 1,000 ML LIQUID GT PRN (20:08)
[2023-03-27] MEDS: RIVAROXABAN 10 MG TABLET GT SCH (21:00)
[2023-03-27] MEDS: MELATONIN 5MG TABLET GT SCH (21:00)
[2023-03-28 00:02] VITALS: O2SAT 97
[2023-03-28] MEDS: FAMOTIDINE 20 MG TABLET GT SCH ×2 (06:08→18:46)
[2023-03-28 07:26] VITALS: TEMP 97.9
[2023-03-28] MEDS: LACOSAMIDE 100 MG/10 ML UDC GT SCH ×2 (08:36→20:05)
[2023-03-28] MEDS: levETIRAcetam 500 MG/5 ML LIQUID UDC GT SCH ×2 (08:36→20:05)
[2023-03-28] MEDS: TIZANIDINE HCL 4 MG TABLET GT SCH ×2 (08:38→18:47)
[2023-03-28] MEDS: REMEDY ESSENTIAL ZINC PASTE 113 GM TP SCH ×2 (08:38→21:00)
[2023-03-28] MEDS: METOCLOPRAMIDE HCL 10 MG TABLET GT SCH ×3 (08:38→18:47)
[2023-03-28] MEDS: HYDROGEN PEROXIDE 3% 118 ML BOTTLE TOP SCH ×2 (08:46→20:58)
[2023-03-28 16:27] VITALS: O2SAT 98
[2023-03-28 20:00] VITALS: TEMP 97.5
[2023-03-28 20:10] VITALS: O2SAT 98
[2023-03-28] MEDS: RIVAROXABAN 10 MG TABLET GT SCH (21:00)
[2023-03-28] MEDS: MELATONIN 5MG TABLET GT SCH (21:00)
[2023-03-28] MEDS: VITAL AF 1.2 1,000 ML LIQUID GT PRN (22:52)
[2023-03-29] MEDS: FAMOTIDINE 20 MG TABLET GT SCH ×2 (05:41→18:57)
[2023-03-29 07:05] VITALS: O2SAT 98
[2023-03-29 07:16] VITALS: TEMP 97.7
[2023-03-29] MEDS: levETIRAcetam 500 MG/5 ML LIQUID UDC GT SCH ×2 (08:20→20:30)
[2023-03-29] MEDS: LACOSAMIDE 100 MG/10 ML UDC GT SCH ×2 (08:21→20:30)
[2023-03-29] MEDS: METOCLOPRAMIDE HCL 10 MG TABLET GT SCH ×3 (08:22→18:57)
[2023-03-29] MEDS: TIZANIDINE HCL 4 MG TABLET GT SCH ×2 (08:22→18:58)
[2023-03-29] MEDS: REMEDY ESSENTIAL ZINC PASTE 113 GM TP SCH ×2 (08:22→21:00)
[2023-03-29] MEDS: [UNRECOGNIZED DRUG - OTHER] TP SCH (09:00)
[2023-03-29] MEDS: HYDROGEN PEROXIDE 3% 118 ML BOTTLE TOP SCH ×2 (09:31→19:14)
[2023-03-29 11:00] VITALS: O2SAT 99
[2023-03-29 16:31] VITALS: O2SAT 99
[2023-03-29 20:00] VITALS: TEMP 98.7
[2023-03-29] MEDS: MELATONIN 5MG TABLET GT SCH (21:00)
[2023-03-29] MEDS: RIVAROXABAN 10 MG TABLET GT SCH (21:00)
[2023-03-30 00:10] VITALS: O2SAT 98
[2023-03-30] MEDS: VITAL AF 1.2 1,000 ML LIQUID GT PRN (05:05)
[2023-03-30] MEDS: FAMOTIDINE 20 MG TABLET GT SCH ×2 (05:27→18:56)
[2023-03-30 07:18] VITALS: TEMP 98.2
[2023-03-30] MEDS: levETIRAcetam 500 MG/5 ML LIQUID UDC GT SCH ×2 (08:22→20:07)
[2023-03-30] MEDS: LACOSAMIDE 100 MG/10 ML UDC GT SCH ×2 (08:22→20:07)
[2023-03-30] MEDS: TIZANIDINE HCL 4 MG TABLET GT SCH ×2 (08:22→18:56)
[2023-03-30] MEDS: REMEDY ESSENTIAL ZINC PASTE 113 GM TP SCH ×2 (08:22→20:07)
[2023-03-30] MEDS: MAGNESIUM HYDROXIDE 30 ML LIQUID UDC GT PRN (08:22)
[2023-03-30] MEDS: METOCLOPRAMIDE HCL 10 MG TABLET GT SCH ×3 (08:22→18:56)
[2023-03-30 08:28] VITALS: O2SAT 98
[2023-03-30] MEDS: HYDROGEN PEROXIDE 3% 118 ML BOTTLE TOP SCH ×2 (08:28→21:53)
[2023-03-30 20:00] VITALS: TEMP 98.4
[2023-03-30 20:25] VITALS: O2SAT 98
[2023-03-30] MEDS: MELATONIN 5MG TABLET GT SCH (21:00)
[2023-03-30] MEDS: RIVAROXABAN 10 MG TABLET GT SCH (21:00)
[2023-03-31] MEDS: FAMOTIDINE 20 MG TABLET GT SCH ×2 (05:41→18:58)
[2023-03-31] MEDS: BISACODYL 10 MG SUPP.RECT RC PRN (05:41)
[2023-03-31] MEDS: HYDROGEN PEROXIDE 3% 118 ML BOTTLE TOP SCH ×2 (07:20→19:20)
[2023-03-31 07:50] VITALS: TEMP 97.6
[2023-03-31 08:28] VITALS: O2SAT 98
[2023-03-31] MEDS: LACOSAMIDE 100 MG/10 ML UDC GT SCH ×2 (09:00→20:06)
[2023-03-31] MEDS: levETIRAcetam 500 MG/5 ML LIQUID UDC GT SCH ×2 (09:00→20:06)
[2023-03-31] MEDS: [UNRECOGNIZED DRUG - OTHER] TP SCH (09:04)
[2023-03-31] MEDS: TIZANIDINE HCL 4 MG TABLET GT SCH ×2 (09:04→18:58)
[2023-03-31] MEDS: METOCLOPRAMIDE HCL 10 MG TABLET GT SCH ×3 (09:04→18:58)
[2023-03-31] MEDS: REMEDY ESSENTIAL ZINC PASTE 113 GM TP SCH ×2 (09:04→20:06)
[2023-03-31 20:00] VITALS: TEMP 98
[2023-03-31] MEDS: MELATONIN 5MG TABLET GT SCH (21:00)
[2023-03-31] MEDS: RIVAROXABAN 10 MG TABLET GT SCH (21:00)
[2023-03-31 22:09] VITALS: O2SAT 98
[2023-04-01] MEDS: FAMOTIDINE 20 MG TABLET GT SCH ×2 (05:37→18:50)
[2023-04-01] MEDS: levETIRAcetam 500 MG/5 ML LIQUID UDC GT SCH ×2 (08:12→20:08)
[2023-04-01] MEDS: LACOSAMIDE 100 MG/10 ML UDC GT SCH ×2 (08:23→20:08)
[2023-04-01] MEDS: METOCLOPRAMIDE HCL 10 MG TABLET GT SCH ×3 (08:25→18:50)
[2023-04-01] MEDS: TIZANIDINE HCL 4 MG TABLET GT SCH ×2 (08:27→18:50)
[2023-04-01] MEDS: REMEDY ESSENTIAL ZINC PASTE 113 GM TP SCH ×2 (08:27→21:00)
[2023-04-01] MEDS: HYDROGEN PEROXIDE 3% 118 ML BOTTLE TOP SCH ×2 (09:00→21:22)
[2023-04-01 09:30] VITALS: TEMP 97.2
[2023-04-01 14:09] VITALS: O2SAT 98
[2023-04-01 19:35] VITALS: O2SAT 98
[2023-04-01] MEDS: MELATONIN 5MG TABLET GT SCH (21:00)
[2023-04-01] MEDS: RIVAROXABAN 10 MG TABLET GT SCH (21:00)
[2023-04-01 21:34] VITALS: TEMP 98.2
[2023-04-02] MEDS: FAMOTIDINE 20 MG TABLET GT SCH ×2 (05:05→18:52)
[2023-04-02 07:51] VITALS: TEMP 97.6
[2023-04-02] MEDS: HYDROGEN PEROXIDE 3% 118 ML BOTTLE TOP SCH ×2 (08:28→19:14)
[2023-04-02] MEDS: REMEDY ESSENTIAL ZINC PASTE 113 GM TP SCH ×2 (08:47→21:16)
[2023-04-02] MEDS: TIZANIDINE HCL 4 MG TABLET GT SCH ×2 (08:47→18:52)
[2023-04-02] MEDS: [UNRECOGNIZED DRUG - OTHER] TP SCH (08:47)
[2023-04-02] MEDS: levETIRAcetam 500 MG/5 ML LIQUID UDC GT SCH ×2 (08:47→20:11)
[2023-04-02] MEDS: METOCLOPRAMIDE HCL 10 MG TABLET GT SCH ×3 (08:47→18:52)
[2023-04-02] MEDS: LACOSAMIDE 100 MG/10 ML UDC GT SCH ×2 (08:47→20:11)
[2023-04-02 16:02] VITALS: O2SAT 98
[2023-04-02 20:00] VITALS: TEMP 98.5
[2023-04-02] MEDS: RIVAROXABAN 10 MG TABLET GT SCH (21:00)
[2023-04-02] MEDS: MELATONIN 5MG TABLET GT SCH (21:14)
[2023-04-02 22:59] VITALS: O2SAT 98
[2023-04-02] MEDS: VITAL AF 1.2 1,000 ML LIQUID GT PRN (23:03)
[2023-04-03] MEDS: FAMOTIDINE 20 MG TABLET GT SCH ×2 (05:09→18:45)
[2023-04-03 07:09] VITALS: TEMP 98.2
[2023-04-03] MEDS: LACOSAMIDE 100 MG/10 ML UDC GT SCH ×2 (08:36→20:22)
[2023-04-03] MEDS: TIZANIDINE HCL 4 MG TABLET GT SCH ×2 (08:36→18:47)
[2023-04-03] MEDS: REMEDY ESSENTIAL ZINC PASTE 113 GM TP SCH ×2 (08:36→21:00)
[2023-04-03] MEDS: levETIRAcetam 500 MG/5 ML LIQUID UDC GT SCH ×2 (08:36→20:22)
[2023-04-03] MEDS: METOCLOPRAMIDE HCL 10 MG TABLET GT SCH ×3 (08:36→18:46)
[2023-04-03] MEDS: HYDROGEN PEROXIDE 3% 118 ML BOTTLE TOP SCH ×2 (09:00→19:16)
[2023-04-03 11:10] VITALS: O2SAT 98
[2023-04-03] MEDS: RIVAROXABAN 10 MG TABLET GT SCH (21:00)
[2023-04-03] MEDS: MELATONIN 5MG TABLET GT SCH (21:00)
[2023-04-04 01:22] VITALS: O2SAT 98
[2023-04-04] MEDS: VITAL AF 1.2 1,000 ML LIQUID GT PRN (04:00)
[2023-04-04] MEDS: FAMOTIDINE 20 MG TABLET GT SCH ×2 (05:36→18:48)
[2023-04-04] MEDS: BISACODYL 10 MG SUPP.RECT RC PRN (05:36)
[2023-04-04 07:15] VITALS: TEMP 97.6
[2023-04-04] MEDS: HYDROGEN PEROXIDE 3% 118 ML BOTTLE TOP SCH ×2 (07:50→21:00)
[2023-04-04] MEDS: METOCLOPRAMIDE HCL 10 MG TABLET GT SCH ×3 (08:43→18:50)
[2023-04-04] MEDS: levETIRAcetam 500 MG/5 ML LIQUID UDC GT SCH ×2 (08:43→19:58)
[2023-04-04] MEDS: LACOSAMIDE 100 MG/10 ML UDC GT SCH ×2 (08:43→19:58)
[2023-04-04] MEDS: TIZANIDINE HCL 4 MG TABLET GT SCH ×2 (08:43→18:50)
[2023-04-04] MEDS: [UNRECOGNIZED DRUG - OTHER] TP SCH (08:44)
[2023-04-04] MEDS: REMEDY ESSENTIAL ZINC PASTE 113 GM TP SCH ×2 (08:44→21:52)
[2023-04-04 09:30] VITALS: O2SAT 98
[2023-04-04] MEDS: NEOMY/BACITRA/POLYMYXIN B OINT UD PACKET TP SCH ×2 (14:25→21:52)
[2023-04-04 20:00] VITALS: TEMP 97.8
[2023-04-04 21:09] VITALS: O2SAT 98
[2023-04-04] MEDS: RIVAROXABAN 10 MG TABLET GT SCH (21:51)
[2023-04-04] MEDS: MELATONIN 5MG TABLET GT SCH (21:51)
[2023-04-05] MEDS: VITAL AF 1.2 1,000 ML LIQUID GT PRN (04:10)
[2023-04-05] MEDS: FAMOTIDINE 20 MG TABLET GT SCH ×2 (05:24→18:35)
[2023-04-05] MEDS: HYDROGEN PEROXIDE 3% 118 ML BOTTLE TOP SCH ×2 (07:53→21:23)
[2023-04-05 08:00] VITALS: TEMP 97.5
[2023-04-05] MEDS: METOCLOPRAMIDE HCL 10 MG TABLET GT SCH ×3 (08:05→18:35)
[2023-04-05] MEDS: levETIRAcetam 500 MG/5 ML LIQUID UDC GT SCH ×2 (08:05→20:00)
[2023-04-05] MEDS: TIZANIDINE HCL 4 MG TABLET GT SCH ×2 (08:07→18:35)
[2023-04-05] MEDS: NEOMY/BACITRA/POLYMYXIN B OINT UD PACKET TP SCH ×2 (08:08→21:49)
[2023-04-05] MEDS: REMEDY ESSENTIAL ZINC PASTE 113 GM TP SCH ×2 (08:08→21:48)
[2023-04-05] MEDS: LACOSAMIDE 100 MG/10 ML UDC GT SCH ×2 (08:10→20:00)
[2023-04-05 08:45] VITALS: O2SAT 98
[2023-04-05 20:00] VITALS: TEMP 98; O2SAT 99
[2023-04-05] MEDS: RIVAROXABAN 10 MG TABLET GT SCH (21:48)
[2023-04-05] MEDS: MELATONIN 5MG TABLET GT SCH (21:48)
[2023-04-06] MEDS: FAMOTIDINE 20 MG TABLET GT SCH ×2 (05:05→18:53)
[2023-04-06] MEDS: VITAL AF 1.2 1,000 ML LIQUID GT PRN (06:41)
[2023-04-06] MEDS: LACOSAMIDE 100 MG/10 ML UDC GT SCH ×2 (08:00→20:17)
[2023-04-06] MEDS: levETIRAcetam 500 MG/5 ML LIQUID UDC GT SCH ×2 (08:00→20:17)
[2023-04-06] MEDS: HYDROGEN PEROXIDE 3% 118 ML BOTTLE TOP SCH ×2 (08:05→19:13)
[2023-04-06 08:56] VITALS: TEMP 98.1
[2023-04-06] MEDS: REMEDY ESSENTIAL ZINC PASTE 113 GM TP SCH ×2 (09:07→20:17)
[2023-04-06] MEDS: TIZANIDINE HCL 4 MG TABLET GT SCH ×2 (09:07→18:53)
[2023-04-06] MEDS: NEOMY/BACITRA/POLYMYXIN B OINT UD PACKET TP SCH ×2 (09:07→20:17)
[2023-04-06] MEDS: METOCLOPRAMIDE HCL 10 MG TABLET GT SCH ×3 (09:07→18:53)
[2023-04-06] MEDS: [UNRECOGNIZED DRUG - OTHER] TP SCH (09:07)
[2023-04-06 10:40] VITALS: O2SAT 98
[2023-04-06 20:00] VITALS: TEMP 98.4
[2023-04-06] MEDS: MELATONIN 5MG TABLET GT SCH (20:17)
[2023-04-06] MEDS: RIVAROXABAN 10 MG TABLET GT SCH (21:00)
[2023-04-07] VITALS (7 sets, daily range): TEMP 97.4–98.7; O2SAT 98–99
[2023-04-07] MEDS: FAMOTIDINE 20 MG TABLET GT SCH ×2 (06:55→18:47)
[2023-04-07] MEDS: METOCLOPRAMIDE HCL 10 MG TABLET GT SCH ×3 (08:43→18:48)
[2023-04-07] MEDS: levETIRAcetam 500 MG/5 ML LIQUID UDC GT SCH ×2 (08:43→20:10)
[2023-04-07] MEDS: LACOSAMIDE 100 MG/10 ML UDC GT SCH ×2 (08:43→20:10)
[2023-04-07] MEDS: TIZANIDINE HCL 4 MG TABLET GT SCH ×2 (08:44→18:48)
[2023-04-07] MEDS: REMEDY ESSENTIAL ZINC PASTE 113 GM TP SCH ×2 (08:44→21:00)
[2023-04-07] MEDS: NEOMY/BACITRA/POLYMYXIN B OINT UD PACKET TP SCH ×2 (09:00→21:00)
[2023-04-07] MEDS: HYDROGEN PEROXIDE 3% 118 ML BOTTLE TOP SCH ×2 (09:00→19:05)
[2023-04-07] MEDS: VITAL AF 1.2 1,000 ML LIQUID GT PRN (15:14)
[2023-04-07] MEDS: MELATONIN 5MG TABLET GT SCH (21:00)
[2023-04-07] MEDS: RIVAROXABAN 10 MG TABLET GT SCH (21:00)
[2023-04-08] MEDS: FAMOTIDINE 20 MG TABLET GT SCH ×2 (05:50→18:44)
[2023-04-08 08:00] VITALS: TEMP 98
[2023-04-08] MEDS: LACOSAMIDE 100 MG/10 ML UDC GT SCH ×2 (08:59→20:20)
[2023-04-08] MEDS: levETIRAcetam 500 MG/5 ML LIQUID UDC GT SCH ×2 (08:59→20:20)
[2023-04-08] MEDS: HYDROGEN PEROXIDE 3% 118 ML BOTTLE TOP SCH ×2 (09:00→19:12)
[2023-04-08] MEDS: TIZANIDINE HCL 4 MG TABLET GT SCH ×2 (09:01→18:44)
[2023-04-08] MEDS: METOCLOPRAMIDE HCL 10 MG TABLET GT SCH ×3 (09:01→18:44)
[2023-04-08] MEDS: [UNRECOGNIZED DRUG - OTHER] TP SCH (09:02)
[2023-04-08] MEDS: NEOMY/BACITRA/POLYMYXIN B OINT UD PACKET TP SCH ×2 (09:02→21:00)
[2023-04-08] MEDS: REMEDY ESSENTIAL ZINC PASTE 113 GM TP SCH ×2 (09:02→21:00)
[2023-04-08 10:00] VITALS: O2SAT 98
[2023-04-08 16:20] VITALS: O2SAT 98
[2023-04-08 20:00] VITALS: TEMP 98.2
[2023-04-08] MEDS: MELATONIN 5MG TABLET GT SCH (21:00)
[2023-04-08] MEDS: RIVAROXABAN 10 MG TABLET GT SCH (21:00)
[2023-04-08 21:17] VITALS: O2SAT 98
[2023-04-08] MEDS: VITAL AF 1.2 1,000 ML LIQUID GT PRN (22:44)
[2023-04-09] MEDS: FAMOTIDINE 20 MG TABLET GT SCH ×2 (05:42→18:32)
[2023-04-09] MEDS: HYDROGEN PEROXIDE 3% 118 ML BOTTLE TOP SCH ×2 (07:18→19:20)
[2023-04-09 08:10] VITALS: TEMP 97.6
[2023-04-09] MEDS: LACOSAMIDE 100 MG/10 ML UDC GT SCH ×2 (09:00→20:31)
[2023-04-09] MEDS: levETIRAcetam 500 MG/5 ML LIQUID UDC GT SCH ×2 (09:00→20:31)
[2023-04-09] MEDS: METOCLOPRAMIDE HCL 10 MG TABLET GT SCH ×3 (09:05→18:32)
[2023-04-09] MEDS: REMEDY ESSENTIAL ZINC PASTE 113 GM TP SCH ×2 (09:06→21:00)
[2023-04-09] MEDS: TIZANIDINE HCL 4 MG TABLET GT SCH ×2 (09:06→18:32)
[2023-04-09] MEDS: NEOMY/BACITRA/POLYMYXIN B OINT UD PACKET TP SCH ×2 (09:06→21:00)
[2023-04-09 12:19] VITALS: O2SAT 98
[2023-04-09] MEDS: VITAL AF 1.2 1,000 ML LIQUID GT PRN (17:30)
[2023-04-09] MEDS: RIVAROXABAN 10 MG TABLET GT SCH (21:00)
[2023-04-09] MEDS: MELATONIN 5MG TABLET GT SCH (21:00)
[2023-04-09 21:34] VITALS: O2SAT 98
[2023-04-10] MEDS: FAMOTIDINE 20 MG TABLET GT SCH ×2 (05:31→18:43)
[2023-04-10 06:53] VITALS: TEMP 98.1
[2023-04-10 07:53] VITALS: TEMP 97.2
[2023-04-10 08:00] VITALS: O2SAT 98
[2023-04-10] MEDS: levETIRAcetam 500 MG/5 ML LIQUID UDC GT SCH ×2 (08:00→20:00)
[2023-04-10] MEDS: HYDROGEN PEROXIDE 3% 118 ML BOTTLE TOP SCH ×2 (09:00→19:17)
[2023-04-10] MEDS: LACOSAMIDE 100 MG/10 ML UDC GT SCH ×2 (09:45→20:00)
[2023-04-10] MEDS: METOCLOPRAMIDE HCL 10 MG TABLET GT SCH ×3 (09:57→18:43)
[2023-04-10] MEDS: [UNRECOGNIZED DRUG - OTHER] TP SCH (09:57)
[2023-04-10] MEDS: REMEDY ESSENTIAL ZINC PASTE 113 GM TP SCH ×2 (09:57→21:00)
[2023-04-10] MEDS: TIZANIDINE HCL 4 MG TABLET GT SCH ×2 (09:57→18:43)
[2023-04-10] MEDS: NEOMY/BACITRA/POLYMYXIN B OINT UD PACKET TP SCH ×2 (09:57→21:00)
[2023-04-10 11:37] VITALS: O2SAT 99
[2023-04-10 15:35] VITALS: O2SAT 99
[2023-04-10 20:00] VITALS: TEMP 97; O2SAT 99
[2023-04-10] MEDS: MELATONIN 5MG TABLET GT SCH (21:00)
[2023-04-10] MEDS: RIVAROXABAN 10 MG TABLET GT SCH (21:00)
[2023-04-11] MEDS: FAMOTIDINE 20 MG TABLET GT SCH ×2 (05:25→19:04)
[2023-04-11 07:53] VITALS: TEMP 97.3
[2023-04-11] MEDS: levETIRAcetam 500 MG/5 ML LIQUID UDC GT SCH ×2 (08:00→20:00)
[2023-04-11] MEDS: LACOSAMIDE 100 MG/10 ML UDC GT SCH ×2 (08:00→20:00)
[2023-04-11] MEDS: HYDROGEN PEROXIDE 3% 118 ML BOTTLE TOP SCH ×2 (09:00→19:18)
[2023-04-11] MEDS: METOCLOPRAMIDE HCL 10 MG TABLET GT SCH ×3 (09:21→19:04)
[2023-04-11] MEDS: REMEDY ESSENTIAL ZINC PASTE 113 GM TP SCH ×2 (09:22→21:00)
[2023-04-11] MEDS: TIZANIDINE HCL 4 MG TABLET GT SCH ×2 (09:22→19:04)
[2023-04-11 14:56] VITALS: O2SAT 98
[2023-04-11 20:00] VITALS: TEMP 97
[2023-04-11] MEDS: MELATONIN 5MG TABLET GT SCH (21:00)
[2023-04-11] MEDS: RIVAROXABAN 10 MG TABLET GT SCH (21:00)
[2023-04-11 23:07] VITALS: O2SAT 99
[2023-04-12] MEDS: FAMOTIDINE 20 MG TABLET GT SCH ×2 (05:52→18:44)
[2023-04-12 07:00] VITALS: O2SAT 98
[2023-04-12 07:49] VITALS: TEMP 97.6
[2023-04-12] MEDS: levETIRAcetam 500 MG/5 ML LIQUID UDC GT SCH ×2 (08:14→20:00)
[2023-04-12] MEDS: TIZANIDINE HCL 4 MG TABLET GT SCH ×2 (08:14→18:44)
[2023-04-12] MEDS: LACOSAMIDE 100 MG/10 ML UDC GT SCH ×2 (08:14→20:00)
[2023-04-12] MEDS: METOCLOPRAMIDE HCL 10 MG TABLET GT SCH ×3 (08:14→18:44)
[2023-04-12] MEDS: [UNRECOGNIZED DRUG - OTHER] TP SCH (08:14)
[2023-04-12] MEDS: REMEDY ESSENTIAL ZINC PASTE 113 GM TP SCH ×2 (08:14→21:00)
[2023-04-12] MEDS: HYDROGEN PEROXIDE 3% 118 ML BOTTLE TOP SCH ×2 (09:00→19:11)
[2023-04-12 11:11] VITALS: O2SAT 99
[2023-04-12 13:03] VITALS: O2SAT 99
[2023-04-12 20:00] VITALS: TEMP 97.9
[2023-04-12] MEDS: RIVAROXABAN 10 MG TABLET GT SCH (21:00)
[2023-04-12] MEDS: MELATONIN 5MG TABLET GT SCH (21:00)
[2023-04-13] MEDS: VITAL AF 1.2 1,000 ML LIQUID GT PRN (04:07)
[2023-04-13] MEDS: FAMOTIDINE 20 MG TABLET GT SCH ×2 (05:49→18:30)
[2023-04-13 08:00] VITALS: TEMP 97.6
[2023-04-13] MEDS: LACOSAMIDE 100 MG/10 ML UDC GT SCH ×2 (08:05→20:00)
[2023-04-13] MEDS: levETIRAcetam 500 MG/5 ML LIQUID UDC GT SCH ×2 (08:05→20:00)
[2023-04-13] MEDS: REMEDY ESSENTIAL ZINC PASTE 113 GM TP SCH ×2 (08:08→21:00)
[2023-04-13] MEDS: TIZANIDINE HCL 4 MG TABLET GT SCH ×2 (08:08→18:30)
[2023-04-13] MEDS: METOCLOPRAMIDE HCL 10 MG TABLET GT SCH ×3 (08:08→18:30)
[2023-04-13] MEDS: HYDROGEN PEROXIDE 3% 118 ML BOTTLE TOP SCH ×2 (09:00→19:27)
[2023-04-13 10:15] VITALS: O2SAT 98
[2023-04-13 20:00] VITALS: TEMP 97.5
[2023-04-13] MEDS: MELATONIN 5MG TABLET GT SCH (21:00)
[2023-04-13] MEDS: RIVAROXABAN 10 MG TABLET GT SCH (21:00)
[2023-04-13 21:16] VITALS: O2SAT 99
[2023-04-14] MEDS: FAMOTIDINE 20 MG TABLET GT SCH ×2 (05:03→18:48)
[2023-04-14 08:00] VITALS: TEMP 97.5
[2023-04-14] MEDS: REMEDY ESSENTIAL ZINC PASTE 113 GM TP SCH ×2 (08:45→21:00)
[2023-04-14] MEDS: TIZANIDINE HCL 4 MG TABLET GT SCH ×2 (08:45→18:48)
[2023-04-14] MEDS: levETIRAcetam 500 MG/5 ML LIQUID UDC GT SCH ×2 (08:45→20:00)
[2023-04-14] MEDS: [UNRECOGNIZED DRUG - OTHER] TP SCH (08:45)
[2023-04-14] MEDS: METOCLOPRAMIDE HCL 10 MG TABLET GT SCH ×3 (08:45→18:48)
[2023-04-14] MEDS: LACOSAMIDE 100 MG/10 ML UDC GT SCH ×2 (08:45→20:00)
[2023-04-14] MEDS: HYDROGEN PEROXIDE 3% 118 ML BOTTLE TOP SCH ×2 (09:35→21:00)
[2023-04-14 09:38] VITALS: O2SAT 98
[2023-04-14] MEDS: VITAL AF 1.2 1,000 ML LIQUID GT PRN (13:23)
[2023-04-14 20:00] VITALS: TEMP 97.9
[2023-04-14] MEDS: MELATONIN 5MG TABLET GT SCH (21:00)
[2023-04-14] MEDS: RIVAROXABAN 10 MG TABLET GT SCH (21:00)
[2023-04-15 00:07] VITALS: O2SAT 99
[2023-04-15] MEDS: FAMOTIDINE 20 MG TABLET GT SCH ×2 (05:48→18:56)
[2023-04-15] MEDS: BISACODYL 10 MG SUPP.RECT RC PRN (06:40)
[2023-04-15] MEDS: levETIRAcetam 500 MG/5 ML LIQUID UDC GT SCH ×2 (08:18→20:15)
[2023-04-15] MEDS: METOCLOPRAMIDE HCL 10 MG TABLET GT SCH ×3 (08:19→18:57)
[2023-04-15] MEDS: LACOSAMIDE 100 MG/10 ML UDC GT SCH ×2 (08:19→20:15)
[2023-04-15] MEDS: REMEDY ESSENTIAL ZINC PASTE 113 GM TP SCH ×2 (08:20→21:00)
[2023-04-15] MEDS: TIZANIDINE HCL 4 MG TABLET GT SCH ×2 (08:20→18:57)
[2023-04-15] MEDS: HYDROGEN PEROXIDE 3% 118 ML BOTTLE TOP SCH ×2 (09:00→19:28)
[2023-04-15 11:19] VITALS: TEMP 97.4
[2023-04-15 12:38] VITALS: O2SAT 98
[2023-04-15 20:00] VITALS: TEMP 97.5
[2023-04-15] MEDS: MELATONIN 5MG TABLET GT SCH (21:00)
[2023-04-15] MEDS: RIVAROXABAN 10 MG TABLET GT SCH (21:00)
[2023-04-15 21:44] VITALS: O2SAT 99
[2023-04-16] MEDS: FAMOTIDINE 20 MG TABLET GT SCH ×2 (05:29→18:54)
[2023-04-16] MEDS: LACOSAMIDE 100 MG/10 ML UDC GT SCH ×2 (08:00→20:19)
[2023-04-16] MEDS: levETIRAcetam 500 MG/5 ML LIQUID UDC GT SCH ×2 (08:00→20:19)
[2023-04-16 09:14] VITALS: TEMP 97.2
[2023-04-16] MEDS: METOCLOPRAMIDE HCL 10 MG TABLET GT SCH ×3 (09:18→18:54)
[2023-04-16] MEDS: TIZANIDINE HCL 4 MG TABLET GT SCH ×2 (09:19→18:54)
[2023-04-16] MEDS: [UNRECOGNIZED DRUG - OTHER] TP SCH (09:19)
[2023-04-16] MEDS: REMEDY ESSENTIAL ZINC PASTE 113 GM TP SCH ×2 (09:19→21:00)
[2023-04-16] MEDS: HYDROGEN PEROXIDE 3% 118 ML BOTTLE TOP SCH ×2 (09:35→21:03)
[2023-04-16 12:27] VITALS: O2SAT 98
[2023-04-16 20:00] VITALS: TEMP 97.7
[2023-04-16] MEDS: MELATONIN 5MG TABLET GT SCH (21:00)
[2023-04-16] MEDS: RIVAROXABAN 10 MG TABLET GT SCH (21:00)
[2023-04-17 00:10] VITALS: O2SAT 99
[2023-04-17] MEDS: FAMOTIDINE 20 MG TABLET GT SCH (05:46)
[2023-04-17] MEDS: levETIRAcetam 500 MG/5 ML LIQUID UDC GT SCH ×2 (08:00→20:00)
[2023-04-17] MEDS: LACOSAMIDE 100 MG/10 ML UDC GT SCH ×2 (08:00→20:00)
[2023-04-17 08:26] VITALS: O2SAT 98
[2023-04-17] MEDS: HYDROGEN PEROXIDE 3% 118 ML BOTTLE TOP SCH ×2 (08:26→19:06)
[2023-04-17] MEDS: METOCLOPRAMIDE HCL 10 MG TABLET GT SCH ×3 (09:00→12:41)
[2023-04-17] MEDS: TIZANIDINE HCL 4 MG TABLET GT SCH ×2 (09:00→09:06)
[2023-04-17] MEDS: REMEDY ESSENTIAL ZINC PASTE 113 GM TP SCH ×2 (09:07→21:00)
[2023-04-17] MEDS: NEOMY/BACITRA/POLYMYXIN B OINT UD PACKET TP SCH (09:57)
[2023-04-17 10:58] VITALS: TEMP 98
[2023-04-17] MEDS: VITAL AF 1.2 1,000 ML LIQUID GT PRN (13:49)
[2023-04-17 20:00] VITALS: TEMP 98.2
[2023-04-17] MEDS: MELATONIN 5MG TABLET GT SCH (21:00)
[2023-04-17] MEDS: RIVAROXABAN 10 MG TABLET GT SCH (21:00)
[2023-04-18 01:05] VITALS: O2SAT 99
[2023-04-18] MEDS: FAMOTIDINE 20 MG TABLET GT SCH ×2 (05:17→18:14)
[2023-04-18] MEDS: HYDROGEN PEROXIDE 3% 118 ML BOTTLE TOP SCH ×2 (07:23→19:22)
[2023-04-18] MEDS: LACOSAMIDE 100 MG/10 ML UDC GT SCH ×2 (08:00→20:06)
[2023-04-18] MEDS: levETIRAcetam 500 MG/5 ML LIQUID UDC GT SCH ×2 (08:00→20:06)
[2023-04-18] MEDS: NEOMY/BACITRA/POLYMYXIN B OINT UD PACKET TP SCH (09:00)
[2023-04-18] MEDS: [UNRECOGNIZED DRUG - OTHER] TP SCH (09:00)
[2023-04-18] MEDS: REMEDY ESSENTIAL ZINC PASTE 113 GM TP SCH ×2 (09:00→21:00)
[2023-04-18] MEDS: METOCLOPRAMIDE HCL 10 MG TABLET GT SCH ×3 (09:00→18:16)
[2023-04-18] MEDS: TIZANIDINE HCL 4 MG TABLET GT SCH ×2 (09:00→18:15)
[2023-04-18 09:46] VITALS: O2SAT 98
[2023-04-18 11:11] VITALS: TEMP 98.8
[2023-04-18] MEDS: VITAL AF 1.2 1,000 ML LIQUID GT PRN (19:30)
[2023-04-18 20:00] VITALS: TEMP 98.4
[2023-04-18] MEDS: RIVAROXABAN 10 MG TABLET GT SCH (21:00)
[2023-04-18] MEDS: MELATONIN 5MG TABLET GT SCH (21:00)
[2023-04-18 21:09] VITALS: O2SAT 99
[2023-04-19] MEDS: BISACODYL 10 MG SUPP.RECT RC PRN (04:00)
[2023-04-19] MEDS: FAMOTIDINE 20 MG TABLET GT SCH ×2 (05:37→18:25)
[2023-04-19 08:00] VITALS: TEMP 94; TEMP 98.2
[2023-04-19] MEDS: LACOSAMIDE 100 MG/10 ML UDC GT SCH ×2 (08:00→20:31)
[2023-04-19] MEDS: levETIRAcetam 500 MG/5 ML LIQUID UDC GT SCH ×2 (08:00→20:31)
[2023-04-19 08:45] VITALS: O2SAT 98
[2023-04-19] MEDS: METOCLOPRAMIDE HCL 10 MG TABLET GT SCH ×3 (09:00→18:25)
[2023-04-19] MEDS: REMEDY ESSENTIAL ZINC PASTE 113 GM TP SCH ×2 (09:00→21:00)
[2023-04-19] MEDS: NEOMY/BACITRA/POLYMYXIN B OINT UD PACKET TP SCH (09:00)
[2023-04-19] MEDS: TIZANIDINE HCL 4 MG TABLET GT SCH ×2 (09:00→18:25)
[2023-04-19] MEDS: HYDROGEN PEROXIDE 3% 118 ML BOTTLE TOP SCH ×2 (09:00→21:00)
[2023-04-19 20:00] VITALS: TEMP 98.6
[2023-04-19 20:10] VITALS: O2SAT 99
[2023-04-19] MEDS: RIVAROXABAN 10 MG TABLET GT SCH (21:00)
[2023-04-19] MEDS: MELATONIN 5MG TABLET GT SCH (21:00)
[2023-04-20] MEDS: VITAL AF 1.2 1,000 ML LIQUID GT PRN (04:00)
[2023-04-20] MEDS: MAGNESIUM HYDROXIDE 30 ML LIQUID UDC GT PRN (04:00)
[2023-04-20] MEDS: FAMOTIDINE 20 MG TABLET GT SCH ×2 (05:49→18:57)
[2023-04-20 07:19] VITALS: TEMP 98.7
[2023-04-20] MEDS: LACOSAMIDE 100 MG/10 ML UDC GT SCH ×2 (08:00→20:42)
[2023-04-20] MEDS: levETIRAcetam 500 MG/5 ML LIQUID UDC GT SCH ×2 (08:00→20:42)
[2023-04-20] MEDS: REMEDY ESSENTIAL ZINC PASTE 113 GM TP SCH ×2 (09:00→21:00)
[2023-04-20] MEDS: NEOMY/BACITRA/POLYMYXIN B OINT UD PACKET TP SCH (09:00)
[2023-04-20] MEDS: TIZANIDINE HCL 4 MG TABLET GT SCH ×2 (09:00→18:59)
[2023-04-20] MEDS: METOCLOPRAMIDE HCL 10 MG TABLET GT SCH ×3 (09:00→18:58)
[2023-04-20] MEDS: [UNRECOGNIZED DRUG - OTHER] TP SCH (09:00)
[2023-04-20] MEDS: HYDROGEN PEROXIDE 3% 118 ML BOTTLE TOP SCH ×2 (09:52→19:10)
[2023-04-20 11:15] VITALS: O2SAT 98
[2023-04-20 13:40] VITALS: O2SAT 98
[2023-04-20 15:30] VITALS: O2SAT 98
[2023-04-20] MEDS ORDERED: TIZANIDINE HCL 4 MG TABLET ONE (18:30)
[2023-04-20 20:00] VITALS: TEMP 97
[2023-04-20] MEDS: RIVAROXABAN 10 MG TABLET GT SCH (21:00)
[2023-04-20] MEDS: MELATONIN 5MG TABLET GT SCH (21:00)
[2023-04-21] MEDS: FAMOTIDINE 20 MG TABLET GT SCH ×2 (05:15→19:00)
[2023-04-21 07:49] VITALS: TEMP 97.5
[2023-04-21] MEDS: TIZANIDINE HCL 4 MG TABLET GT SCH ×2 (08:18→19:00)
[2023-04-21] MEDS: NEOMY/BACITRA/POLYMYXIN B OINT UD PACKET TP SCH (08:18)
[2023-04-21] MEDS: METOCLOPRAMIDE HCL 10 MG TABLET GT SCH ×3 (08:18→19:00)
[2023-04-21] MEDS: LACOSAMIDE 100 MG/10 ML UDC GT SCH ×2 (08:18→20:01)
[2023-04-21] MEDS: levETIRAcetam 500 MG/5 ML LIQUID UDC GT SCH ×2 (08:18→19:59)
[2023-04-21] MEDS: REMEDY ESSENTIAL ZINC PASTE 113 GM TP SCH ×2 (08:18→21:00)
[2023-04-21] MEDS: HYDROGEN PEROXIDE 3% 118 ML BOTTLE TOP SCH ×2 (08:30→19:13)
[2023-04-21] MEDS: VITAL AF 1.2 1,000 ML LIQUID GT PRN (10:43)
[2023-04-21 10:50] VITALS: O2SAT 98
[2023-04-21] MEDS: RIVAROXABAN 10 MG TABLET GT SCH (20:07)
[2023-04-21] MEDS: MELATONIN 5MG TABLET GT SCH (21:00)
[2023-04-22] MEDS: FAMOTIDINE 20 MG TABLET GT SCH ×2 (06:00→18:36)
[2023-04-22] MEDS: levETIRAcetam 500 MG/5 ML LIQUID UDC GT SCH ×2 (08:00→20:03)
[2023-04-22] MEDS: LACOSAMIDE 100 MG/10 ML UDC GT SCH ×2 (08:00→20:03)
[2023-04-22 08:11] VITALS: TEMP 98.6
[2023-04-22 09:00] VITALS: O2SAT 98
[2023-04-22] MEDS: HYDROGEN PEROXIDE 3% 118 ML BOTTLE TOP SCH ×2 (09:00→19:08)
[2023-04-22] MEDS: TIZANIDINE HCL 4 MG TABLET GT SCH ×2 (09:21→18:39)
[2023-04-22] MEDS: METOCLOPRAMIDE HCL 10 MG TABLET GT SCH ×3 (09:21→18:37)
[2023-04-22] MEDS: [UNRECOGNIZED DRUG - OTHER] TP SCH (09:22)
[2023-04-22] MEDS: REMEDY ESSENTIAL ZINC PASTE 113 GM TP SCH ×2 (09:22→20:03)
[2023-04-22] MEDS: NEOMY/BACITRA/POLYMYXIN B OINT UD PACKET TP SCH (09:22)
[2023-04-22 20:30] VITALS: TEMP 96.3
[2023-04-22] MEDS: RIVAROXABAN 10 MG TABLET GT SCH (21:00)
[2023-04-22] MEDS: MELATONIN 5MG TABLET GT SCH (21:00)
[2023-04-23] MEDS: VITAL AF 1.2 1,000 ML LIQUID GT PRN (01:36)
[2023-04-23] MEDS: FAMOTIDINE 20 MG TABLET GT SCH ×2 (05:10→18:47)
[2023-04-23] MEDS: HYDROGEN PEROXIDE 3% 118 ML BOTTLE TOP SCH ×2 (07:25→21:40)
[2023-04-23 08:00] VITALS: TEMP 97.8
[2023-04-23] MEDS: LACOSAMIDE 100 MG/10 ML UDC GT SCH ×2 (08:38→20:17)
[2023-04-23] MEDS: levETIRAcetam 500 MG/5 ML LIQUID UDC GT SCH ×2 (08:38→20:17)
[2023-04-23] MEDS: METOCLOPRAMIDE HCL 10 MG TABLET GT SCH ×3 (08:42→18:47)
[2023-04-23] MEDS: TIZANIDINE HCL 4 MG TABLET GT SCH ×2 (08:42→18:48)
[2023-04-23] MEDS: NEOMY/BACITRA/POLYMYXIN B OINT UD PACKET TP SCH (08:43)
[2023-04-23] MEDS: REMEDY ESSENTIAL ZINC PASTE 113 GM TP SCH ×2 (08:43→20:17)
[2023-04-23 13:01] VITALS: O2SAT 98
[2023-04-23 15:45] VITALS: O2SAT 98
[2023-04-23 20:00] VITALS: TEMP 98.4
[2023-04-23] MEDS: MELATONIN 5MG TABLET GT SCH (21:00)
[2023-04-23] MEDS: RIVAROXABAN 10 MG TABLET GT SCH (21:00)
[2023-04-24] MEDS: FAMOTIDINE 20 MG TABLET GT SCH ×2 (05:37→18:57)
[2023-04-24] MEDS: VITAL AF 1.2 1,000 ML LIQUID GT PRN (05:37)
[2023-04-24] MEDS: HYDROGEN PEROXIDE 3% 118 ML BOTTLE TOP SCH ×2 (07:29→21:00)
[2023-04-24] MEDS: levETIRAcetam 500 MG/5 ML LIQUID UDC GT SCH ×2 (08:19→20:12)
[2023-04-24] MEDS: TIZANIDINE HCL 4 MG TABLET GT SCH ×2 (08:20→18:57)
[2023-04-24] MEDS: NEOMY/BACITRA/POLYMYXIN B OINT UD PACKET TP SCH (08:20)
[2023-04-24] MEDS: REMEDY ESSENTIAL ZINC PASTE 113 GM TP SCH ×2 (08:20→21:55)
[2023-04-24] MEDS: METOCLOPRAMIDE HCL 10 MG TABLET GT SCH ×3 (08:20→18:57)
[2023-04-24] MEDS: LACOSAMIDE 100 MG/10 ML UDC GT SCH ×2 (08:20→20:12)
[2023-04-24] MEDS: [UNRECOGNIZED DRUG - OTHER] TP SCH (08:20)
[2023-04-24 09:26] VITALS: TEMP 97.2
[2023-04-24 13:27] VITALS: O2SAT 98
[2023-04-24 20:01] VITALS: TEMP 97.4
[2023-04-24] MEDS: MELATONIN 5MG TABLET GT SCH (21:54)
[2023-04-24] MEDS: RIVAROXABAN 10 MG TABLET GT SCH (21:55)
[2023-04-25] MEDS: FAMOTIDINE 20 MG TABLET GT SCH ×2 (05:23→19:23)
[2023-04-25] MEDS: levETIRAcetam 500 MG/5 ML LIQUID UDC GT SCH ×2 (08:00→20:01)
[2023-04-25] MEDS: NEOMY/BACITRA/POLYMYXIN B OINT UD PACKET TP SCH (09:00)
[2023-04-25] MEDS: REMEDY ESSENTIAL ZINC PASTE 113 GM TP SCH ×2 (09:00→21:40)
[2023-04-25] MEDS: TIZANIDINE HCL 4 MG TABLET GT SCH ×2 (09:00→19:23)
[2023-04-25] MEDS: METOCLOPRAMIDE HCL 10 MG TABLET GT SCH ×3 (09:00→19:23)
[2023-04-25] MEDS: HYDROGEN PEROXIDE 3% 118 ML BOTTLE TOP SCH ×2 (09:00→19:13)
[2023-04-25] MEDS: LACOSAMIDE 100 MG/10 ML UDC GT SCH ×2 (09:00→20:11)
[2023-04-25] MEDS: VITAL AF 1.2 1,000 ML LIQUID GT PRN (10:39)
[2023-04-25 11:00] VITALS: TEMP 97.6
[2023-04-25 14:22] VITALS: O2SAT 98
[2023-04-25 20:00] VITALS: TEMP 98.4
[2023-04-25] MEDS: MELATONIN 5MG TABLET GT SCH (21:39)
[2023-04-25] MEDS: RIVAROXABAN 10 MG TABLET GT SCH (21:40)
[2023-04-26] MEDS: BISACODYL 10 MG SUPP.RECT RC PRN (05:00)
[2023-04-26] MEDS: FAMOTIDINE 20 MG TABLET GT SCH ×2 (06:01→18:52)
[2023-04-26 08:00] VITALS: TEMP 97.8
[2023-04-26] MEDS: levETIRAcetam 500 MG/5 ML LIQUID UDC GT SCH ×2 (08:22→20:24)
[2023-04-26] MEDS: REMEDY ESSENTIAL ZINC PASTE 113 GM TP SCH ×2 (08:23→21:00)
[2023-04-26] MEDS: TIZANIDINE HCL 4 MG TABLET GT SCH ×2 (08:23→18:53)
[2023-04-26] MEDS: METOCLOPRAMIDE HCL 10 MG TABLET GT SCH ×3 (08:23→18:53)
[2023-04-26] MEDS: LACOSAMIDE 100 MG/10 ML UDC GT SCH ×2 (08:23→20:24)
[2023-04-26 08:25] VITALS: O2SAT 98
[2023-04-26] MEDS: HYDROGEN PEROXIDE 3% 118 ML BOTTLE TOP SCH ×2 (08:25→19:15)
[2023-04-26] MEDS: NEOMY/BACITRA/POLYMYXIN B OINT UD PACKET TP SCH (09:00)
[2023-04-26] MEDS: [UNRECOGNIZED DRUG - OTHER] TP SCH (09:00)
[2023-04-26 16:54] VITALS: O2SAT 98
[2023-04-26 21:06] VITALS: O2SAT 99
[2023-04-26] MEDS: MELATONIN 5MG TABLET GT SCH (21:52)
[2023-04-26] MEDS: RIVAROXABAN 10 MG TABLET GT SCH (22:03)
[2023-04-27] MEDS: FAMOTIDINE 20 MG TABLET GT SCH ×2 (05:52→18:44)
[2023-04-27 07:08] VITALS: O2SAT 98
[2023-04-27 07:17] VITALS: TEMP 97.8
[2023-04-27] MEDS: LACOSAMIDE 100 MG/10 ML UDC GT SCH ×2 (08:17→20:29)
[2023-04-27] MEDS: levETIRAcetam 500 MG/5 ML LIQUID UDC GT SCH ×2 (08:18→20:29)
[2023-04-27] MEDS: REMEDY ESSENTIAL ZINC PASTE 113 GM TP SCH ×2 (08:19→20:29)
[2023-04-27] MEDS: METOCLOPRAMIDE HCL 10 MG TABLET GT SCH ×3 (08:19→18:44)
[2023-04-27] MEDS: TIZANIDINE HCL 4 MG TABLET GT SCH ×2 (08:19→18:45)
[2023-04-27 09:00] LABS: BASOPHILS % (AUTO) 0.7 % (0.0-2.0); EOSINOPHILS # (AUTO) 0.2 K/uL (0.0-0.7); EOSINOPHILS % (AUTO) 3.3 % (0.0-7.0); HEMATOCRIT 40.7 % (31.2-41.9); HEMOGLOBIN 13.6 g/dL (10.9-14.3); LYMPHOCYTES # (AUTO) 1.7 K/uL (0.8-4.8); LYMPHOCYTES % (AUTO) 23.6 % (20.5-51.5); MEAN CORPUSCULAR HEMOGLOBIN 30.4 uug (24.7-32.8); MEAN CORPUSCULAR HGB CONC 34 g/dL (32.3-35.6); MEAN CORPUSCULAR VOLUME 90.7 fL (75.5-95.3); MONOCYTES # (AUTO) 0.5 K/uL (0.1-1.30); MONOCYTES % (AUTO) 6.9 % (0.0-11.0); NEUTROPHILS # (AUTO) 4.7 K/uL (1.8-8.9); NEUTROPHILS % (AUTO) 65.5 % (38.5-71.5); PLATELET COUNT (AUTO) 280 K/uL (179-408); RED BLOOD CELL COUNT(AUTO) 4.48 MIL/uL (3.63-4.92); RED CELL DISTRIBUTION WIDTH 12.8 % (12.3-17.7); WHITE BLOOD COUNT (AUTO) 7.1 K/uL (3.8-11.8)
[2023-04-27] MEDS: HYDROGEN PEROXIDE 3% 118 ML BOTTLE TOP SCH ×2 (09:00→19:34)
[2023-04-27 09:06] LABS: DIFFERENTIAL COMMENT 1
[2023-04-27 09:47] LABS: CALCIUM 10.1 mg/dL (8.5-10.1); CREATININE 0.6 mg/dL (0.6-1.3); MAGNESIUM 2.3 mg/dL (1.8-2.4); PHOSPHOROUS 4.7 mg/dL (2.5-4.9); POTASSIUM 4.7 mmol/L (3.5-5.1)
[2023-04-27 17:30] VITALS: O2SAT 98
[2023-04-27 20:30] VITALS: TEMP 98.1
[2023-04-27] MEDS: MELATONIN 5MG TABLET GT SCH (21:00)
[2023-04-27] MEDS: RIVAROXABAN 10 MG TABLET GT SCH (21:00)
[2023-04-27 21:26] VITALS: O2SAT 99
[2023-04-28] MEDS: FAMOTIDINE 20 MG TABLET GT SCH ×2 (05:40→18:43)
[2023-04-28] MEDS: VITAL AF 1.2 1,000 ML LIQUID GT PRN (05:40)
[2023-04-28] MEDS: HYDROGEN PEROXIDE 3% 118 ML BOTTLE TOP SCH ×2 (07:34→19:26)
[2023-04-28 08:02] VITALS: TEMP 98.1
[2023-04-28] MEDS: [UNRECOGNIZED DRUG - OTHER] TP SCH (08:35)
[2023-04-28] MEDS: REMEDY ESSENTIAL ZINC PASTE 113 GM TP SCH ×2 (08:35→21:52)
[2023-04-28] MEDS: METOCLOPRAMIDE HCL 10 MG TABLET GT SCH ×3 (08:35→18:43)
[2023-04-28] MEDS: TIZANIDINE HCL 4 MG TABLET GT SCH ×2 (08:35→18:43)
[2023-04-28] MEDS: levETIRAcetam 500 MG/5 ML LIQUID UDC GT SCH ×2 (08:35→20:15)
[2023-04-28] MEDS: LACOSAMIDE 100 MG/10 ML UDC GT SCH ×2 (08:41→20:15)
[2023-04-28 10:10] VITALS: O2SAT 98
[2023-04-28 16:50] VITALS: O2SAT 98
[2023-04-28 20:00] VITALS: TEMP 97.9
[2023-04-28 21:20] VITALS: O2SAT 99
[2023-04-28] MEDS: MELATONIN 5MG TABLET GT SCH (21:52)
[2023-04-28] MEDS: RIVAROXABAN 10 MG TABLET GT SCH (21:55)
[2023-04-29] MEDS: FAMOTIDINE 20 MG TABLET GT SCH ×2 (06:44→18:32)
[2023-04-29 07:38] VITALS: TEMP 97.2
[2023-04-29] MEDS: levETIRAcetam 500 MG/5 ML LIQUID UDC GT SCH ×2 (08:44→20:08)
[2023-04-29] MEDS: LACOSAMIDE 100 MG/10 ML UDC GT SCH ×2 (08:44→20:08)
[2023-04-29] MEDS: METOCLOPRAMIDE HCL 10 MG TABLET GT SCH ×3 (08:44→18:32)
[2023-04-29] MEDS: REMEDY ESSENTIAL ZINC PASTE 113 GM TP SCH ×2 (08:46→21:37)
[2023-04-29] MEDS: TIZANIDINE HCL 4 MG TABLET GT SCH ×2 (08:46→18:32)
[2023-04-29] MEDS: HYDROGEN PEROXIDE 3% 118 ML BOTTLE TOP SCH ×2 (09:50→19:09)
[2023-04-29] MEDS ORDERED: TUBERCULIN,PURIF.PROT.DERIV. 5 TU/0.1 ML TEST ID SCH (12:00)
[2023-04-29 14:35] VITALS: O2SAT 98
[2023-04-29] MEDS: RIVAROXABAN 10 MG TABLET GT SCH (20:08)
[2023-04-29] MEDS: MELATONIN 5MG TABLET GT SCH (21:37)
[2023-04-29 22:00] VITALS: TEMP 98
[2023-04-30] VITALS (7 sets, daily range): TEMP 97.2–98; O2SAT 98
[2023-04-30] MEDS: FAMOTIDINE 20 MG TABLET GT SCH ×2 (06:29→18:50)
[2023-04-30] MEDS: levETIRAcetam 500 MG/5 ML LIQUID UDC GT SCH ×2 (08:57→20:00)
[2023-04-30] MEDS: LACOSAMIDE 100 MG/10 ML UDC GT SCH ×2 (08:58→20:00)
[2023-04-30] MEDS: METOCLOPRAMIDE HCL 10 MG TABLET GT SCH ×3 (08:58→18:50)
[2023-04-30] MEDS: [UNRECOGNIZED DRUG - OTHER] TP SCH (08:59)
[2023-04-30] MEDS: TIZANIDINE HCL 4 MG TABLET GT SCH ×2 (08:59→18:50)
[2023-04-30] MEDS: REMEDY ESSENTIAL ZINC PASTE 113 GM TP SCH ×2 (08:59→21:52)
[2023-04-30] MEDS: HYDROGEN PEROXIDE 3% 118 ML BOTTLE TOP SCH ×2 (09:00→19:21)
[2023-04-30] MEDS: MELATONIN 5MG TABLET GT SCH (21:52)
[2023-04-30] MEDS: RIVAROXABAN 10 MG TABLET GT SCH (21:53)
[2023-05-01] MEDS: VITAL AF 1.2 1,000 ML LIQUID GT PRN (02:00)
[2023-05-01] MEDS: FAMOTIDINE 20 MG TABLET GT SCH ×2 (05:53→18:48)
[2023-05-01 07:19] VITALS: TEMP 98.4
[2023-05-01 08:00] VITALS: O2SAT 98
[2023-05-01] MEDS: levETIRAcetam 500 MG/5 ML LIQUID UDC GT SCH ×2 (08:40→20:00)
[2023-05-01] MEDS: LACOSAMIDE 100 MG/10 ML UDC GT SCH ×2 (08:42→20:00)
[2023-05-01] MEDS: METOCLOPRAMIDE HCL 10 MG TABLET GT SCH ×3 (08:43→18:48)
[2023-05-01] MEDS: TIZANIDINE HCL 4 MG TABLET GT SCH ×2 (08:43→18:48)
[2023-05-01] MEDS: REMEDY ESSENTIAL ZINC PASTE 113 GM TP SCH ×2 (08:44→21:00)
[2023-05-01] MEDS: HYDROGEN PEROXIDE 3% 118 ML BOTTLE TOP SCH ×2 (09:00→19:07)
[2023-05-01 11:00] VITALS: O2SAT 98
[2023-05-01] MEDS ORDERED: TUBERCULIN,PURIF.PROT.DERIV. 5 TU/0.1 ML TEST ID ONE (14:00)
[2023-05-01 14:54] VITALS: O2SAT 98
[2023-05-01] MEDS: ACETAMINOPHEN 650 MG/20 ML UDC- SA PATIENTS-PAIN ONLY GT PRN (17:21)
[2023-05-01 19:46] VITALS: TEMP 97.5
[2023-05-01] MEDS: MELATONIN 5MG TABLET GT SCH (21:00)
[2023-05-01] MEDS: RIVAROXABAN 10 MG TABLET GT SCH (21:00)
[2023-05-02 01:00] VITALS: O2SAT 98
[2023-05-02] MEDS: VITAL AF 1.2 1,000 ML LIQUID GT PRN (03:48)
[2023-05-02] MEDS: FAMOTIDINE 20 MG TABLET GT SCH ×2 (05:27→18:54)
[2023-05-02 07:13] VITALS: TEMP 98.4
[2023-05-02 08:00] VITALS: TEMP 97.6
[2023-05-02] MEDS: levETIRAcetam 500 MG/5 ML LIQUID UDC GT SCH ×2 (08:46→20:22)
[2023-05-02] MEDS: LACOSAMIDE 100 MG/10 ML UDC GT SCH ×2 (08:46→20:22)
[2023-05-02] MEDS: METOCLOPRAMIDE HCL 10 MG TABLET GT SCH ×3 (08:47→18:54)
[2023-05-02] MEDS: REMEDY ESSENTIAL ZINC PASTE 113 GM TP SCH ×2 (08:47→21:00)
[2023-05-02] MEDS: TIZANIDINE HCL 4 MG TABLET GT SCH ×2 (08:47→18:54)
[2023-05-02] MEDS: [UNRECOGNIZED DRUG - OTHER] TP SCH (08:47)
[2023-05-02] MEDS: HYDROGEN PEROXIDE 3% 118 ML BOTTLE TOP SCH ×2 (09:00→20:19)
[2023-05-02 10:55] VITALS: O2SAT 98
[2023-05-02] MEDS: MELATONIN 5MG TABLET GT SCH (21:00)
[2023-05-02] MEDS: RIVAROXABAN 10 MG TABLET GT SCH (21:00)
[2023-05-02 22:05] VITALS: O2SAT 98
[2023-05-03] MEDS: VITAL AF 1.2 1,000 ML LIQUID GT PRN ×2 (05:17→17:09)
[2023-05-03] MEDS: FAMOTIDINE 20 MG TABLET GT SCH ×2 (05:17→18:52)
[2023-05-03 06:49] VITALS: TEMP 98.4
[2023-05-03 07:29] VITALS: TEMP 98
[2023-05-03] MEDS: levETIRAcetam 500 MG/5 ML LIQUID UDC GT SCH ×2 (08:56→20:34)
[2023-05-03] MEDS: LACOSAMIDE 100 MG/10 ML UDC GT SCH ×2 (08:56→20:34)
[2023-05-03] MEDS: METOCLOPRAMIDE HCL 10 MG TABLET GT SCH ×3 (08:58→18:52)
[2023-05-03] MEDS: TIZANIDINE HCL 4 MG TABLET GT SCH ×2 (08:58→18:52)
[2023-05-03] MEDS: HYDROGEN PEROXIDE 3% 118 ML BOTTLE TOP SCH ×2 (09:00→21:57)
[2023-05-03] MEDS: REMEDY ESSENTIAL ZINC PASTE 113 GM TP SCH ×2 (09:02→21:04)
[2023-05-03 10:30] VITALS: O2SAT 98
[2023-05-03 20:00] VITALS: TEMP 98.7
[2023-05-03] MEDS: MELATONIN 5MG TABLET GT SCH (21:40)
[2023-05-03] MEDS: RIVAROXABAN 10 MG TABLET GT SCH (21:41)
[2023-05-04 00:26] VITALS: O2SAT 99
[2023-05-04] MEDS: FAMOTIDINE 20 MG TABLET GT SCH ×2 (05:38→18:32)
[2023-05-04] MEDS: HYDROGEN PEROXIDE 3% 118 ML BOTTLE TOP SCH ×2 (07:19→19:12)
[2023-05-04 07:44] VITALS: TEMP 97.7
[2023-05-04] MEDS: levETIRAcetam 500 MG/5 ML LIQUID UDC GT SCH ×2 (08:00→20:50)
[2023-05-04] MEDS: LACOSAMIDE 100 MG/10 ML UDC GT SCH ×2 (08:00→20:50)
[2023-05-04] MEDS: METOCLOPRAMIDE HCL 10 MG TABLET GT SCH ×3 (09:00→18:32)
[2023-05-04] MEDS: [UNRECOGNIZED DRUG - OTHER] TP SCH (09:00)
[2023-05-04] MEDS: TIZANIDINE HCL 4 MG TABLET GT SCH ×2 (09:00→18:32)
[2023-05-04] MEDS: REMEDY ESSENTIAL ZINC PASTE 113 GM TP SCH ×2 (09:00→21:34)
[2023-05-04 09:15] VITALS: O2SAT 98
[2023-05-04 20:00] VITALS: TEMP 97.8
[2023-05-04 20:45] VITALS: O2SAT 99
[2023-05-04] MEDS: MELATONIN 5MG TABLET GT SCH (21:34)
[2023-05-04] MEDS: RIVAROXABAN 10 MG TABLET GT SCH (21:34)
[2023-05-04] MEDS: VITAL AF 1.2 1,000 ML LIQUID GT PRN (22:49)
[2023-05-05] MEDS: FAMOTIDINE 20 MG TABLET GT SCH ×2 (05:34→18:38)
[2023-05-05 07:31] VITALS: O2SAT 98
[2023-05-05] MEDS: LACOSAMIDE 100 MG/10 ML UDC GT SCH ×2 (08:00→20:15)
[2023-05-05] MEDS: levETIRAcetam 500 MG/5 ML LIQUID UDC GT SCH ×2 (08:00→20:15)
[2023-05-05 08:03] VITALS: TEMP 98.4
[2023-05-05] MEDS: REMEDY ESSENTIAL ZINC PASTE 113 GM TP SCH ×2 (09:00→21:35)
[2023-05-05] MEDS: METOCLOPRAMIDE HCL 10 MG TABLET GT SCH ×3 (09:00→18:38)
[2023-05-05] MEDS: TIZANIDINE HCL 4 MG TABLET GT SCH ×2 (09:00→18:38)
[2023-05-05] MEDS: HYDROGEN PEROXIDE 3% 118 ML BOTTLE TOP SCH ×2 (09:31→19:10)
[2023-05-05 11:26] VITALS: O2SAT 98
[2023-05-05 15:38] VITALS: O2SAT 98
[2023-05-05] MEDS: BISACODYL 10 MG SUPP.RECT RC PRN (18:18)
[2023-05-05 20:00] VITALS: TEMP 97.6
[2023-05-05 20:15] VITALS: O2SAT 99
[2023-05-05] MEDS: MELATONIN 5MG TABLET GT SCH (21:35)
[2023-05-05] MEDS: RIVAROXABAN 10 MG TABLET GT SCH (21:36)
[2023-05-06] MEDS: VITAL AF 1.2 1,000 ML LIQUID GT PRN (04:07)
[2023-05-06] MEDS: FAMOTIDINE 20 MG TABLET GT SCH ×2 (05:13→18:54)
[2023-05-06 07:29] VITALS: O2SAT 98
[2023-05-06] MEDS: HYDROGEN PEROXIDE 3% 118 ML BOTTLE TOP SCH ×2 (07:29→19:09)
[2023-05-06 08:04] VITALS: TEMP 98.1
[2023-05-06] MEDS: levETIRAcetam 500 MG/5 ML LIQUID UDC GT SCH ×2 (08:42→20:25)
[2023-05-06] MEDS: TIZANIDINE HCL 4 MG TABLET GT SCH ×2 (08:43→18:54)
[2023-05-06] MEDS: [UNRECOGNIZED DRUG - OTHER] TP SCH (08:43)
[2023-05-06] MEDS: LACOSAMIDE 100 MG/10 ML UDC GT SCH ×2 (08:43→20:25)
[2023-05-06] MEDS: METOCLOPRAMIDE HCL 10 MG TABLET GT SCH ×3 (08:43→18:54)
[2023-05-06] MEDS: REMEDY ESSENTIAL ZINC PASTE 113 GM TP SCH ×2 (08:43→21:00)
[2023-05-06 19:55] VITALS: O2SAT 99
[2023-05-06 20:39] VITALS: TEMP 98.4
[2023-05-06] MEDS: MELATONIN 5MG TABLET GT SCH (21:00)
[2023-05-06] MEDS: RIVAROXABAN 10 MG TABLET GT SCH (21:00)
[2023-05-07] MEDS: FAMOTIDINE 20 MG TABLET GT SCH ×2 (05:42→18:55)
[2023-05-07] MEDS: HYDROGEN PEROXIDE 3% 118 ML BOTTLE TOP SCH ×2 (08:08→21:20)
[2023-05-07 08:09] VITALS: TEMP 98.8
[2023-05-07] MEDS: TIZANIDINE HCL 4 MG TABLET GT SCH ×2 (09:00→18:56)
[2023-05-07] MEDS: LACOSAMIDE 100 MG/10 ML UDC GT SCH ×2 (09:00→20:05)
[2023-05-07] MEDS: METOCLOPRAMIDE HCL 10 MG TABLET GT SCH ×3 (09:00→18:56)
[2023-05-07] MEDS: levETIRAcetam 500 MG/5 ML LIQUID UDC GT SCH ×2 (09:00→20:05)
[2023-05-07] MEDS: REMEDY ESSENTIAL ZINC PASTE 113 GM TP SCH ×2 (09:00→21:56)
[2023-05-07] MEDS: VITAL AF 1.2 1,000 ML LIQUID GT PRN (10:16)
[2023-05-07 12:54] VITALS: O2SAT 98
[2023-05-07 20:43] VITALS: TEMP 98.4
[2023-05-07] MEDS: MELATONIN 5MG TABLET GT SCH (21:54)
[2023-05-07] MEDS: RIVAROXABAN 10 MG TABLET GT SCH (21:56)
[2023-05-07 23:47] VITALS: O2SAT 98
[2023-05-08] MEDS: FAMOTIDINE 20 MG TABLET GT SCH ×2 (05:32→18:30)
[2023-05-08 07:25] VITALS: TEMP 98.8
[2023-05-08 07:30] VITALS: O2SAT 98
[2023-05-08] MEDS: LACOSAMIDE 100 MG/10 ML UDC GT SCH ×2 (08:00→20:00)
[2023-05-08] MEDS: levETIRAcetam 500 MG/5 ML LIQUID UDC GT SCH ×2 (08:00→20:00)
[2023-05-08] MEDS: HYDROGEN PEROXIDE 3% 118 ML BOTTLE TOP SCH ×2 (09:00→19:20)
[2023-05-08] MEDS: TIZANIDINE HCL 4 MG TABLET GT SCH ×2 (09:09→18:30)
[2023-05-08] MEDS: REMEDY ESSENTIAL ZINC PASTE 113 GM TP SCH ×2 (09:09→20:40)
[2023-05-08] MEDS: [UNRECOGNIZED DRUG - OTHER] TP SCH (09:09)
[2023-05-08] MEDS: METOCLOPRAMIDE HCL 10 MG TABLET GT SCH ×3 (09:09→18:30)
[2023-05-08 11:30] VITALS: O2SAT 98
[2023-05-08 15:30] VITALS: O2SAT 98
[2023-05-08 20:30] VITALS: TEMP 98.2
[2023-05-08] MEDS: RIVAROXABAN 10 MG TABLET GT SCH (20:40)
[2023-05-08] MEDS: MELATONIN 5MG TABLET GT SCH (20:40)
[2023-05-08 21:15] VITALS: O2SAT 98
[2023-05-09] MEDS: FAMOTIDINE 20 MG TABLET GT SCH ×2 (06:18→18:57)
[2023-05-09] MEDS: levETIRAcetam 500 MG/5 ML LIQUID UDC GT SCH ×2 (08:00→20:40)
[2023-05-09] MEDS: LACOSAMIDE 100 MG/10 ML UDC GT SCH ×2 (08:00→20:40)
[2023-05-09] MEDS: HYDROGEN PEROXIDE 3% 118 ML BOTTLE TOP SCH ×2 (08:59→19:10)
[2023-05-09] MEDS: REMEDY ESSENTIAL ZINC PASTE 113 GM TP SCH ×2 (09:00→21:00)
[2023-05-09] MEDS: METOCLOPRAMIDE HCL 10 MG TABLET GT SCH ×3 (09:00→18:57)
[2023-05-09] MEDS: TIZANIDINE HCL 4 MG TABLET GT SCH ×2 (09:00→18:57)
[2023-05-09 13:24] VITALS: O2SAT 98
[2023-05-09] MEDS: VITAL AF 1.2 1,000 ML LIQUID GT PRN (18:57)
[2023-05-09 20:00] VITALS: O2SAT 98
[2023-05-09] MEDS: MELATONIN 5MG TABLET GT SCH (21:00)
[2023-05-09] MEDS: RIVAROXABAN 10 MG TABLET GT SCH (21:00)
[2023-05-09 23:49] VITALS: TEMP 97.9
[2023-05-10] MEDS: FAMOTIDINE 20 MG TABLET GT SCH ×2 (05:46→18:25)
[2023-05-10 08:00] VITALS: TEMP 97.4
[2023-05-10] MEDS: levETIRAcetam 500 MG/5 ML LIQUID UDC GT SCH ×2 (08:15→20:00)
[2023-05-10] MEDS: METOCLOPRAMIDE HCL 10 MG TABLET GT SCH ×3 (08:21→18:25)
[2023-05-10] MEDS: TIZANIDINE HCL 4 MG TABLET GT SCH ×2 (08:21→18:25)
[2023-05-10] MEDS: [UNRECOGNIZED DRUG - OTHER] TP SCH (08:22)
[2023-05-10] MEDS: REMEDY ESSENTIAL ZINC PASTE 113 GM TP SCH ×2 (08:23→21:52)
[2023-05-10] MEDS: LACOSAMIDE 100 MG/10 ML UDC GT SCH ×2 (08:41→20:00)
[2023-05-10] MEDS: HYDROGEN PEROXIDE 3% 118 ML BOTTLE TOP SCH ×2 (09:30→19:09)
[2023-05-10 09:39] VITALS: O2SAT 98
[2023-05-10 20:00] VITALS: TEMP 97.9
[2023-05-10 20:40] VITALS: O2SAT 98
[2023-05-10] MEDS: MELATONIN 5MG TABLET GT SCH (21:48)
[2023-05-10] MEDS: RIVAROXABAN 10 MG TABLET GT SCH (21:49)
[2023-05-11] MEDS: FAMOTIDINE 20 MG TABLET GT SCH ×2 (05:48→18:07)
[2023-05-11] MEDS: levETIRAcetam 500 MG/5 ML LIQUID UDC GT SCH ×2 (08:00→20:15)
[2023-05-11] MEDS: LACOSAMIDE 100 MG/10 ML UDC GT SCH ×2 (08:00→20:15)
[2023-05-11] MEDS: TIZANIDINE HCL 4 MG TABLET GT SCH ×2 (09:16→18:07)
[2023-05-11] MEDS: HYDROGEN PEROXIDE 3% 118 ML BOTTLE TOP SCH ×2 (09:16→20:20)
[2023-05-11] MEDS: METOCLOPRAMIDE HCL 10 MG TABLET GT SCH ×3 (09:16→18:07)
[2023-05-11] MEDS: REMEDY ESSENTIAL ZINC PASTE 113 GM TP SCH ×2 (09:16→20:15)
[2023-05-11 10:50] VITALS: O2SAT 98
[2023-05-11 11:30] VITALS: TEMP 98.2
[2023-05-11 20:00] VITALS: TEMP 97.4; O2SAT 98
[2023-05-11] MEDS: MELATONIN 5MG TABLET GT SCH (20:15)
[2023-05-11] MEDS: RIVAROXABAN 10 MG TABLET GT SCH (21:39)
[2023-05-12] MEDS: BISACODYL 10 MG SUPP.RECT RC PRN (06:39)
[2023-05-12] MEDS: FAMOTIDINE 20 MG TABLET GT SCH ×2 (06:39→18:50)
[2023-05-12] MEDS: VITAL AF 1.2 1,000 ML LIQUID GT PRN (07:14)
[2023-05-12] MEDS: HYDROGEN PEROXIDE 3% 118 ML BOTTLE TOP SCH ×2 (07:26→21:43)
[2023-05-12 07:48] VITALS: O2SAT 98
[2023-05-12] MEDS: levETIRAcetam 500 MG/5 ML LIQUID UDC GT SCH ×2 (08:00→20:44)
[2023-05-12 09:08] VITALS: TEMP 98
[2023-05-12] MEDS: REMEDY ESSENTIAL ZINC PASTE 113 GM TP SCH ×2 (09:10→20:49)
[2023-05-12] MEDS: METOCLOPRAMIDE HCL 10 MG TABLET GT SCH ×3 (09:10→18:50)
[2023-05-12] MEDS: LACOSAMIDE 100 MG/10 ML UDC GT SCH ×2 (09:10→20:44)
[2023-05-12] MEDS: TIZANIDINE HCL 4 MG TABLET GT SCH ×2 (09:10→18:50)
[2023-05-12] MEDS: [UNRECOGNIZED DRUG - OTHER] TP SCH (09:10)
[2023-05-12 20:00] VITALS: TEMP 97.6
[2023-05-12] MEDS: MELATONIN 5MG TABLET GT SCH (20:45)
[2023-05-12] MEDS: RIVAROXABAN 10 MG TABLET GT SCH (20:47)
[2023-05-12 21:43] VITALS: O2SAT 99
[2023-05-13] MEDS: VITAL AF 1.2 1,000 ML LIQUID GT PRN (04:28)
[2023-05-13] MEDS: FAMOTIDINE 20 MG TABLET GT SCH ×2 (05:28→18:30)
[2023-05-13] MEDS: LACOSAMIDE 100 MG/10 ML UDC GT SCH ×2 (08:00→20:19)
[2023-05-13] MEDS: levETIRAcetam 500 MG/5 ML LIQUID UDC GT SCH ×2 (08:00→20:19)
[2023-05-13 08:08] VITALS: TEMP 98.1
[2023-05-13] MEDS: HYDROGEN PEROXIDE 3% 118 ML BOTTLE TOP SCH ×2 (09:00→19:12)
[2023-05-13] MEDS: TIZANIDINE HCL 4 MG TABLET GT SCH ×2 (09:00→18:30)
[2023-05-13] MEDS: REMEDY ESSENTIAL ZINC PASTE 113 GM TP SCH ×2 (09:00→21:00)
[2023-05-13] MEDS: METOCLOPRAMIDE HCL 10 MG TABLET GT SCH ×3 (09:00→18:30)
[2023-05-13 11:09] VITALS: O2SAT 98
[2023-05-13 20:00] VITALS: TEMP 98.4
[2023-05-13] MEDS: MELATONIN 5MG TABLET GT SCH (21:00)
[2023-05-13] MEDS: RIVAROXABAN 10 MG TABLET GT SCH (21:00)
[2023-05-13 21:04] VITALS: O2SAT 99
[2023-05-14] MEDS: FAMOTIDINE 20 MG TABLET GT SCH ×2 (05:21→18:40)
[2023-05-14] MEDS: HYDROGEN PEROXIDE 3% 118 ML BOTTLE TOP SCH ×2 (07:09→20:55)
[2023-05-14 08:00] VITALS: TEMP 97.7
[2023-05-14] MEDS: LACOSAMIDE 100 MG/10 ML UDC GT SCH ×2 (08:00→20:33)
[2023-05-14] MEDS: METOCLOPRAMIDE HCL 10 MG TABLET GT SCH ×3 (08:56→18:40)
[2023-05-14] MEDS: TIZANIDINE HCL 4 MG TABLET GT SCH ×2 (08:58→18:39)
[2023-05-14] MEDS: [UNRECOGNIZED DRUG - OTHER] TP SCH (08:58)
[2023-05-14] MEDS: levETIRAcetam 500 MG/5 ML LIQUID UDC GT SCH ×2 (08:59→20:33)
[2023-05-14] MEDS: REMEDY ESSENTIAL ZINC PASTE 113 GM TP SCH ×2 (09:00→21:00)
[2023-05-14] MEDS: VITAL AF 1.2 1,000 ML LIQUID GT PRN (09:09)
[2023-05-14 10:48] VITALS: O2SAT 98
[2023-05-14 19:55] VITALS: O2SAT 99
[2023-05-14 20:00] VITALS: TEMP 98.6
[2023-05-14] MEDS: MELATONIN 5MG TABLET GT SCH (21:00)
[2023-05-14] MEDS: RIVAROXABAN 10 MG TABLET GT SCH (21:00)
[2023-05-15] MEDS: FAMOTIDINE 20 MG TABLET GT SCH ×2 (05:38→18:44)
[2023-05-15] MEDS: LACOSAMIDE 100 MG/10 ML UDC GT SCH ×2 (08:00→20:10)
[2023-05-15] MEDS: levETIRAcetam 500 MG/5 ML LIQUID UDC GT SCH ×2 (08:00→20:10)
[2023-05-15] MEDS: HYDROGEN PEROXIDE 3% 118 ML BOTTLE TOP SCH ×2 (09:00→19:17)
[2023-05-15] MEDS: METOCLOPRAMIDE HCL 10 MG TABLET GT SCH ×3 (09:55→18:44)
[2023-05-15] MEDS: REMEDY ESSENTIAL ZINC PASTE 113 GM TP SCH ×2 (09:58→21:56)
[2023-05-15] MEDS: TIZANIDINE HCL 4 MG TABLET GT SCH ×2 (09:58→18:44)
[2023-05-15 10:30] VITALS: O2SAT 98
[2023-05-15] MEDS: VITAL AF 1.2 1,000 ML LIQUID GT PRN (16:10)
[2023-05-15 17:39] VITALS: TEMP 98.9
[2023-05-15 20:00] VITALS: TEMP 98.9
[2023-05-15 20:30] VITALS: O2SAT 99
[2023-05-15] MEDS: MELATONIN 5MG TABLET GT SCH (21:54)
[2023-05-15] MEDS: RIVAROXABAN 10 MG TABLET GT SCH (21:55)
[2023-05-16] MEDS: FAMOTIDINE 20 MG TABLET GT SCH ×2 (06:01→18:44)
[2023-05-16] MEDS: BISACODYL 10 MG SUPP.RECT RC PRN (06:30)
[2023-05-16] MEDS: HYDROGEN PEROXIDE 3% 118 ML BOTTLE TOP SCH ×2 (07:26→19:04)
[2023-05-16 08:00] VITALS: TEMP 98.3
[2023-05-16] MEDS: levETIRAcetam 500 MG/5 ML LIQUID UDC GT SCH ×2 (08:00→20:05)
[2023-05-16] MEDS: TIZANIDINE HCL 4 MG TABLET GT SCH ×2 (09:00→18:44)
[2023-05-16] MEDS: [UNRECOGNIZED DRUG - OTHER] TP SCH (09:00)
[2023-05-16] MEDS: METOCLOPRAMIDE HCL 10 MG TABLET GT SCH ×3 (09:00→18:44)
[2023-05-16] MEDS: REMEDY ESSENTIAL ZINC PASTE 113 GM TP SCH ×2 (09:00→21:05)
[2023-05-16] MEDS: LACOSAMIDE 100 MG/10 ML UDC GT SCH ×2 (09:55→20:05)
[2023-05-16 10:50] VITALS: O2SAT 97
[2023-05-16] MEDS: VITAL AF 1.2 1,000 ML LIQUID GT PRN (17:32)
[2023-05-16 20:00] VITALS: TEMP 97.2
[2023-05-16 20:30] VITALS: O2SAT 99
[2023-05-16] MEDS: MELATONIN 5MG TABLET GT SCH (21:03)
[2023-05-16] MEDS: RIVAROXABAN 10 MG TABLET GT SCH (21:04)
[2023-05-17] MEDS: FAMOTIDINE 20 MG TABLET GT SCH ×2 (05:23→18:34)
[2023-05-17 08:00] VITALS: TEMP 98.4
[2023-05-17] MEDS: levETIRAcetam 500 MG/5 ML LIQUID UDC GT SCH ×2 (08:00→19:56)
[2023-05-17 08:13] VITALS: O2SAT 98
[2023-05-17] MEDS: HYDROGEN PEROXIDE 3% 118 ML BOTTLE TOP SCH ×2 (08:13→19:16)
[2023-05-17] MEDS: LACOSAMIDE 100 MG/10 ML UDC GT SCH ×2 (08:59→19:56)
[2023-05-17] MEDS: METOCLOPRAMIDE HCL 10 MG TABLET GT SCH ×3 (09:00→18:34)
[2023-05-17] MEDS: TIZANIDINE HCL 4 MG TABLET GT SCH ×2 (09:01→18:34)
[2023-05-17] MEDS: REMEDY ESSENTIAL ZINC PASTE 113 GM TP SCH ×2 (09:01→21:59)
[2023-05-17 19:40] VITALS: O2SAT 99
[2023-05-17 20:00] VITALS: TEMP 97.8
[2023-05-17] MEDS: VITAL AF 1.2 1,000 ML LIQUID GT PRN (20:23)
[2023-05-17] MEDS: MELATONIN 5MG TABLET GT SCH (21:58)
[2023-05-17] MEDS: RIVAROXABAN 10 MG TABLET GT SCH (21:59)
[2023-05-18] MEDS: FAMOTIDINE 20 MG TABLET GT SCH ×2 (05:44→18:41)
[2023-05-18] MEDS: HYDROGEN PEROXIDE 3% 118 ML BOTTLE TOP SCH ×2 (07:17→19:07)
[2023-05-18 07:48] VITALS: O2SAT 98
[2023-05-18 08:04] VITALS: TEMP 98
[2023-05-18] MEDS: LACOSAMIDE 100 MG/10 ML UDC GT SCH ×2 (08:31→20:15)
[2023-05-18] MEDS: METOCLOPRAMIDE HCL 10 MG TABLET GT SCH ×3 (08:31→18:41)
[2023-05-18] MEDS: TIZANIDINE HCL 4 MG TABLET GT SCH ×2 (08:31→18:41)
[2023-05-18] MEDS: levETIRAcetam 500 MG/5 ML LIQUID UDC GT SCH ×2 (08:31→20:15)
[2023-05-18] MEDS: [UNRECOGNIZED DRUG - OTHER] TP SCH (08:31)
[2023-05-18] MEDS: REMEDY ESSENTIAL ZINC PASTE 113 GM TP SCH ×2 (08:31→20:15)
[2023-05-18 20:00] VITALS: TEMP 98.2
[2023-05-18 20:10] VITALS: O2SAT 99
[2023-05-18] MEDS: RIVAROXABAN 10 MG TABLET GT SCH (21:38)
[2023-05-18] MEDS: MELATONIN 5MG TABLET GT SCH (21:46)
[2023-05-19] MEDS: VITAL AF 1.2 1,000 ML LIQUID GT PRN (03:45)
[2023-05-19] MEDS: FAMOTIDINE 20 MG TABLET GT SCH ×2 (05:38→18:47)
[2023-05-19 08:00] VITALS: TEMP 98.1
[2023-05-19] MEDS: LACOSAMIDE 100 MG/10 ML UDC GT SCH ×2 (08:00→20:00)
[2023-05-19] MEDS: levETIRAcetam 500 MG/5 ML LIQUID UDC GT SCH ×2 (08:00→20:00)
[2023-05-19] MEDS: HYDROGEN PEROXIDE 3% 118 ML BOTTLE TOP SCH ×2 (08:19→19:13)
[2023-05-19] MEDS: TIZANIDINE HCL 4 MG TABLET GT SCH ×2 (09:00→18:48)
[2023-05-19] MEDS: REMEDY ESSENTIAL ZINC PASTE 113 GM TP SCH ×2 (09:00→21:00)
[2023-05-19] MEDS: METOCLOPRAMIDE HCL 10 MG TABLET GT SCH ×3 (09:59→18:48)
[2023-05-19 11:45] VITALS: O2SAT 98
[2023-05-19 20:25] VITALS: O2SAT 99
[2023-05-19] MEDS: MELATONIN 5MG TABLET GT SCH (21:00)
[2023-05-19] MEDS: RIVAROXABAN 10 MG TABLET GT SCH (21:00)
[2023-05-20] MEDS: FAMOTIDINE 20 MG TABLET GT SCH (05:19)
[2023-05-20] MEDS: VITAL AF 1.2 1,000 ML LIQUID GT PRN (05:20)
[2023-05-20] MEDS: HYDROGEN PEROXIDE 3% 118 ML BOTTLE TOP SCH ×2 (07:11→19:10)
[2023-05-20 07:48] VITALS: O2SAT 98
[2023-05-20 07:59] VITALS: TEMP 98.2
[2023-05-20] MEDS: METOCLOPRAMIDE HCL 10 MG TABLET GT SCH ×3 (08:45→18:30)
[2023-05-20] MEDS: REMEDY ESSENTIAL ZINC PASTE 113 GM TP SCH ×2 (08:45→21:30)
[2023-05-20] MEDS: TIZANIDINE HCL 4 MG TABLET GT SCH ×2 (08:45→18:30)
[2023-05-20] MEDS: LACOSAMIDE 100 MG/10 ML UDC GT SCH ×2 (08:45→20:00)
[2023-05-20] MEDS: [UNRECOGNIZED DRUG - OTHER] TP SCH (08:45)
[2023-05-20] MEDS: levETIRAcetam 500 MG/5 ML LIQUID UDC GT SCH ×2 (08:45→20:00)
[2023-05-20 19:35] VITALS: O2SAT 98
[2023-05-20 20:00] VITALS: TEMP 98.1
[2023-05-20] MEDS: MELATONIN 5MG TABLET GT SCH (21:19)
[2023-05-20] MEDS: RIVAROXABAN 10 MG TABLET GT SCH (21:29)
[2023-05-21] MEDS: FAMOTIDINE 20 MG TABLET GT SCH ×2 (06:00→18:14)
[2023-05-21 07:24] VITALS: TEMP 98.6
[2023-05-21] MEDS: HYDROGEN PEROXIDE 3% 118 ML BOTTLE TOP SCH ×2 (07:32→19:08)
[2023-05-21] MEDS: levETIRAcetam 500 MG/5 ML LIQUID UDC GT SCH ×2 (08:55→20:13)
[2023-05-21] MEDS: LACOSAMIDE 100 MG/10 ML UDC GT SCH ×2 (08:56→20:13)
[2023-05-21] MEDS: REMEDY ESSENTIAL ZINC PASTE 113 GM TP SCH ×2 (09:03→21:00)
[2023-05-21] MEDS: METOCLOPRAMIDE HCL 10 MG TABLET GT SCH ×3 (09:03→18:14)
[2023-05-21] MEDS: TIZANIDINE HCL 4 MG TABLET GT SCH ×2 (09:03→18:14)
[2023-05-21 10:30] VITALS: O2SAT 98
[2023-05-21] MEDS: VITAL AF 1.2 1,000 ML LIQUID GT PRN (11:36)
[2023-05-21] MEDS: BISACODYL 10 MG SUPP.RECT RC PRN (18:14)
[2023-05-21 20:00] VITALS: TEMP 97.6
[2023-05-21 21:05] VITALS: O2SAT 98
[2023-05-21] MEDS: MELATONIN 5MG TABLET GT SCH (21:59)
[2023-05-21] MEDS: RIVAROXABAN 10 MG TABLET GT SCH (22:02)
[2023-05-22] MEDS: FAMOTIDINE 20 MG TABLET GT SCH (05:38)
== END 2023-05-20 23:59 | disposition still patient (30) | DRG 133 ==
LOC: SA → UNDOADMIN 05-23 07:41 → SA1 12-14 18:45 → SA 12-17 18:56
PROVIDERS: ADMIT Internal Medicine Nephrology; ATTEND Internal Medicine Nephrology
PROC: 05HC33Z Insertion of Infusion Device into Left Basilic Vein, Percutaneous Approach (ICD-10-PCS; principal; 2022-09-14)
DX: J96.11 Chronic respiratory failure with hypoxia (principal); G93.1 Anoxic brain damage, not elsewhere classified; R53.2 Functional quadriplegia; E87.1 Hypo-osmolality and hyponatremia; D64.9 Anemia, unspecified; E55.9 Vitamin D deficiency, unspecified; E87.5 Hyperkalemia; E87.6 Hypokalemia; H10.9 Unspecified conjunctivitis; I10 Essential (primary) hypertension; J98.11 Atelectasis; L30.9 Dermatitis, unspecified; R13.10 Dysphagia, unspecified; I69.398 Other sequelae of cerebral infarction; Z91.010 Allergy to peanuts; Z93.0 Tracheostomy status; Z93.1 Gastrostomy status
CPT/HCPCS: 36415; 70030-TC; 71045; 83735; 84100; 84132; 85025; 86580; 87040; A4663; A6209; A6213; C1758; J2060; J2543; J8597; U0003

== ENCOUNTER 2024-01-24 11:54 | Emergency (ER) | payer MEDICAID ==
[~2024-01-24] VITALS: Ht 152.4 cm; Wt 49.9 kg
[2024-01-24] MEDS: IV NORMAL SALINE 1000 ML BAG IV ONE (12:07)
[2024-01-24 12:40] LABS: CALCIUM 8.7 mg/dL (8.5-10.1); CARBON DIOXIDE 28 mmol/L (21-32); CHLORIDE 110 mmol/L (98-107); CREATININE 0.5 mg/dL (0.6-1.3); GLUCOSE 89 mg/dL (74-106); SODIUM SERUM 143 mmol/L (136-145); UREA NITROGEN, BLOOD 10 mg/dL (7-18)
[2024-01-24 12:44] LABS: *OCCULT BLOOD STOOL NEGATIVE (NEGATIVE); BASOPHILS % (AUTO) 0.3 % (0.0-2.0); EOSINOPHILS # (AUTO) 0.2 K/uL (0.0-0.7); EOSINOPHILS % (AUTO) 2.2 % (0.0-7.0); HEMATOCRIT 35.9 % (31.2-41.9); HEMOGLOBIN 11.8 g/dL (10.9-14.3); LYMPHOCYTES # (AUTO) 1.2 K/uL (0.8-4.8); LYMPHOCYTES % (AUTO) 14.1 % (20.5-51.5); MEAN CORPUSCULAR HEMOGLOBIN 29.8 uug (24.7-32.8); MEAN CORPUSCULAR HGB CONC 33 g/dL (32.3-35.6); MEAN CORPUSCULAR VOLUME 91.1 fL (75.5-95.3); MONOCYTES # (AUTO) 0.7 K/uL (0.1-1.30); MONOCYTES % (AUTO) 7.7 % (0.0-11.0); NEUTROPHILS # (AUTO) 6.5 K/uL (1.8-8.9); NEUTROPHILS % (AUTO) 75.7 % (38.5-71.5); PLATELET COUNT (AUTO) 206 K/uL (179-408); RED BLOOD CELL COUNT(AUTO) 3.94 MIL/uL (3.63-4.92); RED CELL DISTRIBUTION WIDTH 12.9 % (12.3-17.7); WHITE BLOOD COUNT (AUTO) 8.6 K/uL (3.8-11.8)
[2024-01-24 12:45] LABS: DIFFERENTIAL COMMENT 1
[2024-01-24 12:48] LABS: ALANINE AMINOTRANSFERASE 16 U/L (14-59); ALBUMIN 3.1 g/dL (3.4-5.0); ALKALINE PHOSPHATASE 74 U/L (50-136); ASPARTATE AMINOTRANSFERASE 8 U/L (15-37); BILIRUBIN,DIRECT 0.1 mg/dL (0.0-0.2); BILIRUBIN,TOTAL 0.4 mg/dL (0.2-1.0)
[2024-01-24 12:55] LABS: *BILIRUBIN,URIN NEGATIVE (NEGATIVE); *BLOOD, URINE NEGATIVE (NEGATIVE); *CLARITY,URINE CLEAR (CLEAR); *COLOR,URINE YELLOW (YELLOW); *KETONES,URINE NEGATIVE (NEGATIVE); *PROTEIN,URINE NEGATIVE (NEGATIVE); *UROBILINOGEN,URINE 0.2 E.U./dl (NORMAL); LEUKOCYTE ESTERASE ,URINE NEGATIVE (NEGATIVE); NITRITE, URINE NEGATIVE (NEGATIVE); UGLUCOSE NEGATIVE (NEGATIVE)
[2024-01-24 13:20] VITALS: O2SAT 96
[2024-01-24 14:05] VITALS: O2SAT 96
== END 2024-01-24 14:08 ==
LOC: ER 11:54
DX: G93.40 Encephalopathy, unspecified (principal); I95.9 Hypotension, unspecified; N18.6 End stage renal disease; Z87.440 Personal history of urinary (tract) infections; Z79.1 Long term (current) use of non-steroidal anti-inflammatories (NSAID); Z79.891 Long term (current) use of opiate analgesic; Z79.899 Other long term (current) drug therapy; Z88.2 Allergy status to sulfonamides; Z88.1 Allergy status to other antibiotic agents
CPT/HCPCS: 99285; 96360; 71045; 82270; 80076; 80048; 81003; 83735; 85025; 84145; 85730; 87040 ×2; 84484; 36415; 93005 ×2; 83605; 87086; J7040; A4606; A4663

== ENCOUNTER 2024-05-21 | Inpatient (IN) | payer MEDICAID ==
[~2024-05-21] VITALS: Ht 152.4 cm; Wt 54.0 kg
[2024-05-22] VITALS (8 sets, daily range): TEMP 98.8; O2SAT 98
[2024-05-22] MEDS: LACOSAMIDE 100 MG/10 ML UDC GT SCH (08:59)
[2024-05-22] MEDS: levETIRAcetam 500 MG/5 ML LIQUID UDC GT SCH (08:59)
[2024-05-22] MEDS ORDERED: HYDROCORTISONE 1% CREAM 30 GM TUBE TP PRN (09:00)
[2024-05-22] MEDS: METOCLOPRAMIDE HCL 10 MG TABLET GT SCH (09:00)
[2024-05-22] MEDS: DOCUSATE SODIUM 100 MG/10 ML LIQUID UDC GT SCH (09:00)
[2024-05-22] MEDS ORDERED: ACETAMINOPHEN 650 MG/20 ML UDC- SA PATIENTS-PAIN ONLY GT PRN (09:00)
[2024-05-22] MEDS: VITAMIN B COMPLEX 1 TABLET GT SCH (09:00)
[2024-05-22] MEDS ORDERED: VITAMINS A AND D OINT 42 GM TUBE TP PRN (09:00)
[2024-05-22] MEDS: HYDROGEN PEROXIDE 3% 118 ML BOTTLE TOP SCH (09:00)
[2024-05-22] MEDS: TIZANIDINE HCL 4 MG TABLET GT SCH (09:00)
[2024-05-22] MEDS ORDERED: ACETAMINOPHEN 650 MG/20 ML UDC- SA PATIENTS-FEVER ONLY GT PRN (09:00)
[2024-05-22] MEDS ORDERED: HYDROGEN PEROXIDE 3% 118 ML BOTTLE TOP PRN (09:00)
[2024-05-22] MEDS ORDERED: POLYVINYL ALCOHOL OPHT DROPS 15 ML BOTTLE EACHEYE PRN (09:00)
[2024-05-22] MEDS ORDERED: diphenhydrAMINE 25 MG/10 ML UDC GT PRN (09:00)
[2024-05-22] MEDS: ZINC SULFATE 220 MG CAPSULE GT SCH (09:01)
[2024-05-22] MEDS: REMEDY ESSENTIAL ZINC PASTE 113 GM TP SCH (09:01)
[2024-05-22] MEDS: [UNRECOGNIZED DRUG - OTHER] TP SCH (09:01)
[2024-05-22] MEDS ORDERED: VITAMINS A AND D 5 GM UD PKT TP PRN (10:15)
[2024-05-22] MEDS: MELATONIN 5MG TABLET GT SCH (21:45)
[2024-05-22] MEDS: RIVAROXABAN 10 MG TABLET GT SCH (21:45)
[2024-05-23] VITALS (8 sets, daily range): TEMP 97.6–98.6; O2SAT 98–99
[2024-05-23] MEDS: VITAL AF 1.2 1,000 ML LIQUID GT PRN (05:55)
[2024-05-23] MEDS: MAGNESIUM HYDROXIDE 30 ML LIQUID UDC GT PRN (08:30)
[2024-05-24] VITALS (8 sets, daily range): TEMP 97.5–99.1; O2SAT 98–99
[2024-05-25] VITALS (9 sets, daily range): TEMP 97.8–97.9; O2SAT 98–99
[2024-05-26] VITALS (9 sets, daily range): TEMP 97.9–98.6; O2SAT 96–99
[2024-05-26 08:34] LABS: BASOPHILS % (AUTO) 0.2 % (0.0-2.0); EOSINOPHILS # (AUTO) 0.3 K/uL (0.0-0.7); EOSINOPHILS % (AUTO) 3.7 % (0.0-7.0); HEMATOCRIT 36.5 % (31.2-41.9); HEMOGLOBIN 12.7 g/dL (10.9-14.3); LYMPHOCYTES # (AUTO) 1.5 K/uL (0.8-4.8); LYMPHOCYTES % (AUTO) 17.7 % (20.5-51.5); MEAN CORPUSCULAR HEMOGLOBIN 31.2 uug (24.7-32.8); MEAN CORPUSCULAR HGB CONC 35 g/dL (32.3-35.6); MONOCYTES # (AUTO) 0.5 K/uL (0.1-1.30); MONOCYTES % (AUTO) 5.5 % (0.0-11.0); NEUTROPHILS # (AUTO) 6.1 K/uL (1.8-8.9); NEUTROPHILS % (AUTO) 72.9 % (38.5-71.5); PLATELET COUNT (AUTO) 247 K/uL (179-408); RED BLOOD CELL COUNT(AUTO) 4.06 MIL/uL (3.63-4.92); RED CELL DISTRIBUTION WIDTH 13.1 % (12.3-17.7); WHITE BLOOD COUNT (AUTO) 8.3 K/uL (3.8-11.8)
[2024-05-26 08:40] LABS: DIFFERENTIAL COMMENT 1
[2024-05-26 08:55] LABS: CALCIUM 8.9 mg/dL (8.5-10.1); CREATININE 0.7 mg/dL (0.6-1.3); MAGNESIUM 2.1 mg/dL (1.8-2.4); PHOSPHOROUS 3.9 mg/dL (2.5-4.9); POTASSIUM 4.1 mmol/L (3.5-5.1)
[2024-05-27] VITALS (10 sets, daily range): TEMP 98.2–98.4; O2SAT 98
[2024-05-28] VITALS (8 sets, daily range): TEMP 98–99.5; O2SAT 98–99
[2024-05-28] MEDS: NEOMY/BACITRA/POLYMYXIN B OINT UD PACKET TP SCH (20:10)
[2024-05-29] VITALS (8 sets, daily range): TEMP 97.8–98.5; O2SAT 98–99
[2024-05-30] VITALS (9 sets, daily range): TEMP 97.6; O2SAT 98–99
[2024-05-30] MEDS: BISACODYL 10 MG SUPP.RECT RC PRN (05:00)
[2024-05-31] VITALS (9 sets, daily range): BP systolic 85; BP diastolic 45; TEMP 96.9–98.7; O2SAT 98–99
[2024-06-01] VITALS (9 sets, daily range): TEMP 98–98.8; O2SAT 97–99
[2024-06-01] MEDS: SIMETHICONE 80 MG TAB.CHEW GT PRN (10:13)
[2024-06-02] VITALS (8 sets, daily range): TEMP 97.4–98.2; O2SAT 96–99
[2024-06-03] VITALS (9 sets, daily range): TEMP 98.4–98.5; O2SAT 97–98
[2024-06-03] MEDS ORDERED: NEOMY/BACITRAC/POLYMI OINT 28.35 GM TUBE TOP SCH (09:00)
[2024-06-03] MEDS: NEOMY/BACITRA/POLYMYXIN B OINT UD PACKET TP SCH ×2 (09:00→20:28)
[2024-06-04] VITALS (9 sets, daily range): TEMP 97.6–98.7; O2SAT 97–98
[2024-06-04] MEDS: NEOMY/BACITRA/POLYMYXIN B OINT UD PACKET TP SCH (09:37)
[2024-06-05] VITALS (8 sets, daily range): TEMP 97.9–98.8; O2SAT 98–99
[2024-06-06] VITALS (8 sets, daily range): TEMP 97.8–98.7; O2SAT 97–99
[2024-06-07] VITALS (8 sets, daily range): TEMP 98.3–98.7; O2SAT 97–99
[2024-06-08] VITALS (10 sets, daily range): TEMP 98.4–98.6; O2SAT 98–99
[2024-06-09] VITALS (9 sets, daily range): TEMP 97.6–98.5; O2SAT 96–98
[2024-06-10] VITALS (9 sets, daily range): TEMP 98–98.8; O2SAT 97–98
[2024-06-10] MEDS ORDERED: NEOMY/BACITRAC/POLYMI OINT 28.35 GM TUBE TOP SCH (09:00)
[2024-06-10] MEDS: NEOMY/BACITRA/POLYMYXIN B OINT UD PACKET TP SCH (09:15)
[2024-06-11] VITALS (8 sets, daily range): TEMP 98.6–98.8; O2SAT 97–99
[2024-06-12] VITALS (8 sets, daily range): TEMP 97.7–98.4; O2SAT 98–99
[2024-06-13] VITALS (9 sets, daily range): TEMP 96.9–98.9; O2SAT 97–99
[2024-06-14] VITALS (8 sets, daily range): TEMP 97.6–97.9; O2SAT 98–99
[2024-06-14] MEDS: VITAL AF 1.5 1,000 ML LIQUID GT PRN (06:16)
[2024-06-15] VITALS (9 sets, daily range): TEMP 97.8–98.7; O2SAT 97–99
[2024-06-16] VITALS (8 sets, daily range): TEMP 97.9–98.7; O2SAT 98–99
[2024-06-16 09:17] LABS: BASOPHILS % (AUTO) 0.6 % (0.0-2.0); EOSINOPHILS # (AUTO) 0.3 K/uL (0.0-0.7); EOSINOPHILS % (AUTO) 4.7 % (0.0-7.0); HEMATOCRIT 36.2 % (31.2-41.9); HEMOGLOBIN 12.5 g/dL (10.9-14.3); LYMPHOCYTES # (AUTO) 1.3 K/uL (0.8-4.8); LYMPHOCYTES % (AUTO) 23.5 % (20.5-51.5); MEAN CORPUSCULAR HEMOGLOBIN 30.8 uug (24.7-32.8); MEAN CORPUSCULAR HGB CONC 34 g/dL (32.3-35.6); MEAN CORPUSCULAR VOLUME 89.5 fL (75.5-95.3); MONOCYTES # (AUTO) 0.3 K/uL (0.1-1.30); MONOCYTES % (AUTO) 5.1 % (0.0-11.0); NEUTROPHILS # (AUTO) 3.7 K/uL (1.8-8.9); NEUTROPHILS % (AUTO) 66.1 % (38.5-71.5); PLATELET COUNT (AUTO) 241 K/uL (179-408); RED BLOOD CELL COUNT(AUTO) 4.05 MIL/uL (3.63-4.92); RED CELL DISTRIBUTION WIDTH 12.8 % (12.3-17.7); WHITE BLOOD COUNT (AUTO) 5.6 K/uL (3.8-11.8)
[2024-06-16 09:24] LABS: DIFFERENTIAL COMMENT 1
[2024-06-16 09:35] LABS: CALCIUM 8.8 mg/dL (8.5-10.1); CREATININE 0.6 mg/dL (0.6-1.3); MAGNESIUM 2.1 mg/dL (1.8-2.4); PHOSPHOROUS 4.2 mg/dL (2.5-4.9); POTASSIUM 3.8 mmol/L (3.5-5.1)
[2024-06-17] VITALS (7 sets, daily range): TEMP 97.8–98.2; O2SAT 97–98
[2024-06-18] VITALS (9 sets, daily range): TEMP 97.9–98.6; O2SAT 97–98
[2024-06-18] MEDS ORDERED: VITAMINS A AND D 5 GM UD PKT TP PRN (13:45)
[2024-06-19] VITALS (9 sets, daily range): TEMP 97.8–98.8; O2SAT 98–99
[2024-06-20] VITALS (7 sets, daily range): TEMP 98.5–98.6; O2SAT 96–99
[2024-06-21] VITALS (7 sets, daily range): TEMP 97.8–98.6; O2SAT 97–98
[2024-06-22] VITALS (7 sets, daily range): TEMP 98.6; O2SAT 97–98
[2024-06-23] VITALS (8 sets, daily range): TEMP 97.6–98.3; O2SAT 97–98
[2024-06-23] MEDS: LORAZEPAM 2 MG/1 ML VIAL IM PRN (15:09)
[2024-06-24] VITALS (8 sets, daily range): TEMP 98.5–98.6; O2SAT 97–98
[2024-06-25] VITALS (7 sets, daily range): TEMP 97.8; O2SAT 98–99
[2024-06-26] VITALS (7 sets, daily range): TEMP 97.2–97.3; O2SAT 98–99
[2024-06-27] VITALS (9 sets, daily range): TEMP 97.7; O2SAT 98–99
[2024-06-28] VITALS (8 sets, daily range): TEMP 97.8–98.7; O2SAT 98–99
[2024-06-29] VITALS (8 sets, daily range): TEMP 98; O2SAT 98–99
[2024-06-29 08:40] LABS: BASOPHILS % (AUTO) 0.5 % (0.0-2.0); EOSINOPHILS # (AUTO) 0.4 K/uL (0.0-0.7); EOSINOPHILS % (AUTO) 4.7 % (0.0-7.0); HEMATOCRIT 38.8 % (31.2-41.9); HEMOGLOBIN 13.2 g/dL (10.9-14.3); LYMPHOCYTES # (AUTO) 1.4 K/uL (0.8-4.8); LYMPHOCYTES % (AUTO) 17.8 % (20.5-51.5); MEAN CORPUSCULAR HEMOGLOBIN 30.6 uug (24.7-32.8); MEAN CORPUSCULAR HGB CONC 34 g/dL (32.3-35.6); MEAN CORPUSCULAR VOLUME 89.5 fL (75.5-95.3); MONOCYTES # (AUTO) 0.5 K/uL (0.1-1.30); MONOCYTES % (AUTO) 6.1 % (0.0-11.0); NEUTROPHILS # (AUTO) 5.5 K/uL (1.8-8.9); NEUTROPHILS % (AUTO) 70.9 % (38.5-71.5); PLATELET COUNT (AUTO) 273 K/uL (179-408); RED BLOOD CELL COUNT(AUTO) 4.33 MIL/uL (3.63-4.92); RED CELL DISTRIBUTION WIDTH 12.7 % (12.3-17.7); WHITE BLOOD COUNT (AUTO) 7.8 K/uL (3.8-11.8)
[2024-06-29 08:50] LABS: CALCIUM 9.9 mg/dL (8.5-10.1); CREATININE 0.6 mg/dL (0.6-1.3); MAGNESIUM 2.3 mg/dL (1.8-2.4); PHOSPHOROUS 4.4 mg/dL (2.5-4.9)
[2024-06-29 08:51] LABS: DIFFERENTIAL COMMENT 1
[2024-06-30] VITALS (7 sets, daily range): TEMP 98.2; O2SAT 98–99
[2024-07-01] VITALS (8 sets, daily range): TEMP 97.1–98.6; O2SAT 96–99
[2024-07-02] VITALS (8 sets, daily range): TEMP 97–98.3; O2SAT 97–99
[2024-07-03] VITALS (9 sets, daily range): TEMP 97.6–97.7; O2SAT 97–99
[2024-07-04] VITALS (7 sets, daily range): TEMP 98.2–98.6; O2SAT 96–98
[2024-07-04] MEDS: VITAL AF 1.2 1,000 ML LIQUID GT PRN (16:56)
[2024-07-05] VITALS (9 sets, daily range): TEMP 97.8–99; O2SAT 96–98
[2024-07-06 03:30] VITALS: O2SAT 95
[2024-07-06 07:24] VITALS: O2SAT 97
[2024-07-06 07:37] VITALS: TEMP 97.6
[2024-07-06 19:40] VITALS: O2SAT 98
[2024-07-06 21:48] VITALS: TEMP 97.2
[2024-07-06 23:35] VITALS: O2SAT 95
[2024-07-07] VITALS (7 sets, daily range): TEMP 97.5–99.1; O2SAT 96–97
[2024-07-07] MEDS: ONDANSETRON HCL 4 MG TABLET GT PRN (02:44)
[2024-07-07 09:38] LABS: BASOPHILS % (AUTO) 0.4 % (0.0-2.0); EOSINOPHILS # (AUTO) 0.3 K/uL (0.0-0.7); EOSINOPHILS % (AUTO) 3.4 % (0.0-7.0); HEMATOCRIT 38.2 % (31.2-41.9); HEMOGLOBIN 13.1 g/dL (10.9-14.3); LYMPHOCYTES # (AUTO) 1.5 K/uL (0.8-4.8); LYMPHOCYTES % (AUTO) 18.9 % (20.5-51.5); MEAN CORPUSCULAR HEMOGLOBIN 30.9 uug (24.7-32.8); MEAN CORPUSCULAR HGB CONC 34 g/dL (32.3-35.6); MEAN CORPUSCULAR VOLUME 90.4 fL (75.5-95.3); MONOCYTES # (AUTO) 0.5 K/uL (0.1-1.30); MONOCYTES % (AUTO) 6.1 % (0.0-11.0); NEUTROPHILS # (AUTO) 5.7 K/uL (1.8-8.9); NEUTROPHILS % (AUTO) 71.2 % (38.5-71.5); PLATELET COUNT (AUTO) 267 K/uL (179-408); RED BLOOD CELL COUNT(AUTO) 4.23 MIL/uL (3.63-4.92); RED CELL DISTRIBUTION WIDTH 12.9 % (12.3-17.7)
[2024-07-07 09:40] LABS: DIFFERENTIAL COMMENT 1
[2024-07-07 09:48] LABS: CALCIUM 9.5 mg/dL (8.5-10.1); CREATININE 0.6 mg/dL (0.6-1.3); MAGNESIUM 2.2 mg/dL (1.8-2.4); PHOSPHOROUS 4.1 mg/dL (2.5-4.9); POTASSIUM 4.1 mmol/L (3.5-5.1)
[2024-07-08] VITALS (12 sets, daily range): TEMP 97.3–97.5; O2SAT 97–98
[2024-07-08] MEDS: GUAIFENESIN SUGAR FREE 100 MG/5 ML UDC GT PRN (02:46)
[2024-07-09] VITALS (7 sets, daily range): TEMP 97.5–97.8; O2SAT 97–99
[2024-07-10] VITALS (9 sets, daily range): BP systolic 128; BP diastolic 41; TEMP 98; O2SAT 97–98
[2024-07-11] VITALS (8 sets, daily range): TEMP 97–97.8; O2SAT 97–98
[2024-07-12] VITALS (8 sets, daily range): TEMP 97.6–98.4; O2SAT 98–99
[2024-07-13] VITALS (8 sets, daily range): TEMP 98; O2SAT 98–99
[2024-07-14] VITALS (8 sets, daily range): TEMP 97–98; O2SAT 96–99
[2024-07-15] VITALS (7 sets, daily range): TEMP 98.1; O2SAT 97–98
[2024-07-16] VITALS (8 sets, daily range): TEMP 97.5–98.2; O2SAT 97–98
[2024-07-17] VITALS (9 sets, daily range): TEMP 98.3–99.1; O2SAT 97–99
[2024-07-18] VITALS (8 sets, daily range): TEMP 98.6–98.7; O2SAT 97–99
[2024-07-19] VITALS (7 sets, daily range): TEMP 97.8–98.3; O2SAT 97–98
[2024-07-20] VITALS (8 sets, daily range): TEMP 98–98.8; O2SAT 97–99
[2024-07-21] VITALS (8 sets, daily range): TEMP 97–97.5; O2SAT 97–99
[2024-07-21 06:36] LABS: BASOPHILS % (AUTO) 0.3 % (0.0-2.0); EOSINOPHILS # (AUTO) 0.4 K/uL (0.0-0.7); EOSINOPHILS % (AUTO) 5.3 % (0.0-7.0); HEMOGLOBIN 13.1 g/dL (10.9-14.3); LYMPHOCYTES # (AUTO) 1.5 K/uL (0.8-4.8); LYMPHOCYTES % (AUTO) 22.6 % (20.5-51.5); MEAN CORPUSCULAR HEMOGLOBIN 30.4 uug (24.7-32.8); MEAN CORPUSCULAR HGB CONC 34 g/dL (32.3-35.6); MEAN CORPUSCULAR VOLUME 90.6 fL (75.5-95.3); MONOCYTES # (AUTO) 0.5 K/uL (0.1-1.30); MONOCYTES % (AUTO) 6.7 % (0.0-11.0); NEUTROPHILS # (AUTO) 4.4 K/uL (1.8-8.9); NEUTROPHILS % (AUTO) 65.1 % (38.5-71.5); PLATELET COUNT (AUTO) 210 K/uL (179-408); RED CELL DISTRIBUTION WIDTH 12.8 % (12.3-17.7); WHITE BLOOD COUNT (AUTO) 6.8 K/uL (3.8-11.8)
[2024-07-21 06:53] LABS: CALCIUM 9.2 mg/dL (8.5-10.1); CARBON DIOXIDE 28 mmol/L (21-32); CHLORIDE 105 mmol/L (98-107); CREATININE 0.4 mg/dL (0.6-1.3); GLUCOSE 89 mg/dL (74-106); MAGNESIUM 2.2 mg/dL (1.8-2.4); PHOSPHOROUS 4.6 mg/dL (2.5-4.9); POTASSIUM 4.9 mmol/L (3.5-5.1); SODIUM SERUM 140 mmol/L (136-145); UREA NITROGEN, BLOOD 11 mg/dL (7-18)
[2024-07-21 07:05] LABS: DIFFERENTIAL COMMENT 1
[2024-07-22 07:50] VITALS: BP 99/58; TEMP 97.8; O2SAT 98
[2024-07-22 08:00] VITALS: O2SAT 97
[2024-07-22 11:50] VITALS: O2SAT 97
[2024-07-22 15:25] VITALS: O2SAT 97
[2024-07-22 19:20] VITALS: O2SAT 98
[2024-07-22 20:07] VITALS: TEMP 97.9
[2024-07-23] VITALS (10 sets, daily range): BP systolic 95; BP diastolic 39; TEMP 97.2–98.3; O2SAT 88–98
[2024-07-24] VITALS (7 sets, daily range): TEMP 98.7–98.8; O2SAT 97–98
[2024-07-25] VITALS (8 sets, daily range): TEMP 98.7; O2SAT 98
[2024-07-26] VITALS (9 sets, daily range): TEMP 97.5–99; O2SAT 98
[2024-07-27] VITALS (9 sets, daily range): TEMP 97.3–97.7; O2SAT 97–98
[2024-07-28] VITALS (8 sets, daily range): TEMP 97.6–98; O2SAT 97–98
[2024-07-29] VITALS (8 sets, daily range): TEMP 97.7–98.7; O2SAT 96–97
[2024-07-29] MEDS: NUTRISOURCE FIBER 4 GM PACKET GT SCH (08:27)
[2024-07-30] VITALS (8 sets, daily range): TEMP 98.2–98.3; O2SAT 97–98
[2024-07-31] VITALS (8 sets, daily range): TEMP 97.9–98.4; O2SAT 98
[2024-08-01] VITALS (7 sets, daily range): TEMP 97.6–97.9; O2SAT 98
[2024-08-02 04:28] VITALS: O2SAT 98
[2024-08-02 07:35] VITALS: O2SAT 98
[2024-08-02 08:02] VITALS: TEMP 98.8
[2024-08-02 11:00] VITALS: O2SAT 98
[2024-08-02 19:10] VITALS: O2SAT 98
[2024-08-02 20:18] VITALS: TEMP 97.7
[2024-08-03] VITALS (10 sets, daily range): TEMP 97.5–98; O2SAT 98–99
[2024-08-04] VITALS (8 sets, daily range): TEMP 97–98.6; O2SAT 98–99
[2024-08-05] VITALS (8 sets, daily range): TEMP 98.8–99.1; O2SAT 98–99
[2024-08-06] VITALS (8 sets, daily range): TEMP 97–97.7; O2SAT 97–98
[2024-08-07] VITALS (8 sets, daily range): TEMP 97.8–98; O2SAT 97–98
[2024-08-08] VITALS (8 sets, daily range): TEMP 98.6–98.7; O2SAT 95–99
[2024-08-09] VITALS (9 sets, daily range): TEMP 97.4–98.9; O2SAT 98
[2024-08-10] VITALS (7 sets, daily range): TEMP 98–98.5; O2SAT 98
[2024-08-11] VITALS (8 sets, daily range): TEMP 97.6–98.5; O2SAT 98
[2024-08-11 07:34] LABS: BASOPHILS % (AUTO) 0.7 % (0.0-2.0); EOSINOPHILS # (AUTO) 0.3 K/uL (0.0-0.7); EOSINOPHILS % (AUTO) 5.9 % (0.0-7.0); HEMATOCRIT 38.6 % (31.2-41.9); LYMPHOCYTES # (AUTO) 1.5 K/uL (0.8-4.8); MEAN CORPUSCULAR HEMOGLOBIN 30.5 uug (24.7-32.8); MEAN CORPUSCULAR HGB CONC 34 g/dL (32.3-35.6); MEAN CORPUSCULAR VOLUME 90.6 fL (75.5-95.3); MONOCYTES # (AUTO) 0.4 K/uL (0.1-1.30); MONOCYTES % (AUTO) 8.6 % (0.0-11.0); NEUTROPHILS # (AUTO) 2.5 K/uL (1.8-8.9); NEUTROPHILS % (AUTO) 52.8 % (38.5-71.5); PLATELET COUNT (AUTO) 223 K/uL (179-408); RED BLOOD CELL COUNT(AUTO) 4.26 MIL/uL (3.63-4.92); RED CELL DISTRIBUTION WIDTH 13.1 % (12.3-17.7); WHITE BLOOD COUNT (AUTO) 4.8 K/uL (3.8-11.8)
[2024-08-11 07:39] LABS: DIFFERENTIAL COMMENT 1
[2024-08-11 07:57] LABS: ALANINE AMINOTRANSFERASE 20 U/L (14-59); ALBUMIN 3.5 g/dL (3.4-5.0); ALKALINE PHOSPHATASE 72 U/L (50-136); ASPARTATE AMINOTRANSFERASE 11 U/L (15-37); BILIRUBIN,TOTAL 0.3 mg/dL (0.2-1.0); CALCIUM 9.1 mg/dL (8.5-10.1); CARBON DIOXIDE 29 mmol/L (21-32); CHLORIDE 106 mmol/L (98-107); CREATININE 0.5 mg/dL (0.6-1.3); GLUCOSE 79 mg/dL (74-106); MAGNESIUM 2.2 mg/dL (1.8-2.4); NT-PRO BNP 62 pg/mL (0-125); PHOSPHOROUS 4.3 mg/dL (2.5-4.9); SODIUM SERUM 144 mmol/L (136-145); TOTAL PROTEIN, SERUM 8.1 g/dL (6.4-8.2); UREA NITROGEN, BLOOD 11 mg/dL (7-18)
[2024-08-12 02:30] VITALS: O2SAT 98
[2024-08-12 08:20] VITALS: O2SAT 98
[2024-08-12 11:23] VITALS: TEMP 97.5
[2024-08-12 11:30] VITALS: O2SAT 98
[2024-08-12 15:40] VITALS: O2SAT 98
[2024-08-12 20:10] VITALS: TEMP 97.9
[2024-08-13] VITALS (7 sets, daily range): TEMP 97.6–98.3; O2SAT 97–98
[2024-08-14] VITALS (8 sets, daily range): BP systolic 98; BP diastolic 52; TEMP 97.9–98.5; O2SAT 98
[2024-08-15] VITALS (8 sets, daily range): TEMP 98–98.4; O2SAT 97–98
[2024-08-16] VITALS (8 sets, daily range): TEMP 97–98.4; O2SAT 98
[2024-08-17] VITALS (8 sets, daily range): TEMP 96.8–98.8; O2SAT 98
[2024-08-18] VITALS (8 sets, daily range): TEMP 97.5; O2SAT 97–98
[2024-08-19] VITALS (8 sets, daily range): TEMP 97.4; O2SAT 97–98
[2024-08-20] VITALS (8 sets, daily range): TEMP 98–98.6; O2SAT 97–98
[2024-08-21] VITALS (8 sets, daily range): TEMP 97.8–98; O2SAT 98–99
[2024-08-22] VITALS (8 sets, daily range): TEMP 97.1–97.8; O2SAT 98
[2024-08-23 03:44] VITALS: O2SAT 98
[2024-08-23 07:42] VITALS: O2SAT 98
[2024-08-23 08:00] VITALS: TEMP 98.7
[2024-08-23 15:42] VITALS: O2SAT 98
[2024-08-23 20:50] VITALS: O2SAT 98
[2024-08-23 23:36] VITALS: O2SAT 98
[2024-08-24] VITALS (8 sets, daily range): TEMP 98.5; O2SAT 97–98
[2024-08-25] VITALS (7 sets, daily range): TEMP 97–97.9; O2SAT 98–99
[2024-08-25 14:35] LABS: BASOPHILS % (AUTO) 0.4 % (0.0-2.0); EOSINOPHILS # (AUTO) 0.4 K/uL (0.0-0.7); EOSINOPHILS % (AUTO) 6.7 % (0.0-7.0); HEMATOCRIT 37.9 % (31.2-41.9); HEMOGLOBIN 12.8 g/dL (10.9-14.3); LYMPHOCYTES # (AUTO) 1.6 K/uL (0.8-4.8); LYMPHOCYTES % (AUTO) 26.6 % (20.5-51.5); MEAN CORPUSCULAR HEMOGLOBIN 30.6 uug (24.7-32.8); MEAN CORPUSCULAR HGB CONC 34 g/dL (32.3-35.6); MEAN CORPUSCULAR VOLUME 91.1 fL (75.5-95.3); MONOCYTES # (AUTO) 0.5 K/uL (0.1-1.30); MONOCYTES % (AUTO) 7.7 % (0.0-11.0); NEUTROPHILS # (AUTO) 3.5 K/uL (1.8-8.9); NEUTROPHILS % (AUTO) 58.6 % (38.5-71.5); PLATELET COUNT (AUTO) 180 K/uL (179-408); RED BLOOD CELL COUNT(AUTO) 4.16 MIL/uL (3.63-4.92); RED CELL DISTRIBUTION WIDTH 13.1 % (12.3-17.7); WHITE BLOOD COUNT (AUTO) 5.9 K/uL (3.8-11.8)
[2024-08-25 14:37] LABS: DIFFERENTIAL COMMENT 1
[2024-08-25 15:05] LABS: CALCIUM 9.1 mg/dL (8.5-10.1); CARBON DIOXIDE 25 mmol/L (21-32); CHLORIDE 108 mmol/L (98-107); CREATININE 0.3 mg/dL (0.6-1.3); GLUCOSE 109 mg/dL (74-106); MAGNESIUM 2.4 mg/dL (1.8-2.4); PHOSPHOROUS 4.2 mg/dL (2.5-4.9); SODIUM SERUM 142 mmol/L (136-145); UREA NITROGEN, BLOOD 13 mg/dL (7-18)
[2024-08-26] VITALS (7 sets, daily range): TEMP 97–98; O2SAT 97–98
[2024-08-27] VITALS (8 sets, daily range): TEMP 97–97.8; O2SAT 97–98
[2024-08-28] VITALS (8 sets, daily range): TEMP 98.4–98.9; O2SAT 97–98
[2024-08-28] MEDS: POLYETHYLENE GLYCOL 3350 238 GM POWDER GT SCH (08:47)
[2024-08-29] VITALS (8 sets, daily range): TEMP 98.6–98.7; O2SAT 98
[2024-08-30] VITALS (8 sets, daily range): TEMP 97–98.2; O2SAT 98–99
[2024-08-31] VITALS (8 sets, daily range): TEMP 98.4–98.7; O2SAT 97–98
[2024-09-01] VITALS (7 sets, daily range): TEMP 97.5–98.3; O2SAT 96–98
[2024-09-02] VITALS (9 sets, daily range): TEMP 97–97.9; O2SAT 96–98
[2024-09-03] VITALS (8 sets, daily range): TEMP 97–98.8; O2SAT 98
[2024-09-04] VITALS (8 sets, daily range): TEMP 97.7–98.7; O2SAT 97–98
[2024-09-05] VITALS (8 sets, daily range): TEMP 98.4–98.6; O2SAT 98
[2024-09-06] VITALS (8 sets, daily range): TEMP 97.6–98.6; O2SAT 98
[2024-09-07] VITALS (8 sets, daily range): TEMP 97.9–98.8; O2SAT 98
[2024-09-08] VITALS (8 sets, daily range): TEMP 97.6–97.9; O2SAT 97–98
[2024-09-09] VITALS (9 sets, daily range): TEMP 98–98.1; O2SAT 97–98
[2024-09-10] VITALS (8 sets, daily range): TEMP 97.1–98.5; O2SAT 97–98
[2024-09-11] VITALS (8 sets, daily range): TEMP 97.7–97.8; O2SAT 97–98
[2024-09-12] VITALS (7 sets, daily range): TEMP 97.9; O2SAT 97–98
[2024-09-13] VITALS (8 sets, daily range): TEMP 97.6–98.4; O2SAT 97–98
[2024-09-14] VITALS (9 sets, daily range): TEMP 97.9–98.9; O2SAT 97–98
[2024-09-15] VITALS (8 sets, daily range): TEMP 97.5–98.5; O2SAT 98
[2024-09-16] VITALS (8 sets, daily range): TEMP 97.5–98.3; O2SAT 98–99
[2024-09-17] VITALS (8 sets, daily range): TEMP 97.6–98.4; O2SAT 98–99
[2024-09-18] VITALS (7 sets, daily range): TEMP 98.7; O2SAT 98–99
[2024-09-19] VITALS (8 sets, daily range): BP systolic 127; BP diastolic 99; TEMP 97–99.2; O2SAT 90–98
[2024-09-20] VITALS (8 sets, daily range): BP systolic 121; BP diastolic 46; TEMP 97.4–98.2; O2SAT 95–98
[2024-09-21] VITALS (8 sets, daily range): TEMP 98.3–98.6; O2SAT 98
[2024-09-22] VITALS (8 sets, daily range): TEMP 98.8–98.9; O2SAT 98–99
[2024-09-22 06:58] LABS: BASOPHILS % (AUTO) 0.5 % (0.0-2.0); EOSINOPHILS # (AUTO) 0.3 K/uL (0.0-0.7); EOSINOPHILS % (AUTO) 5.3 % (0.0-7.0); HEMATOCRIT 37.3 % (31.2-41.9); HEMOGLOBIN 12.8 g/dL (10.9-14.3); LYMPHOCYTES # (AUTO) 1.9 K/uL (0.8-4.8); LYMPHOCYTES % (AUTO) 28.4 % (20.5-51.5); MEAN CORPUSCULAR HEMOGLOBIN 30.8 uug (24.7-32.8); MEAN CORPUSCULAR HGB CONC 35 g/dL (32.3-35.6); MEAN CORPUSCULAR VOLUME 89.3 fL (75.5-95.3); MONOCYTES # (AUTO) 0.6 K/uL (0.1-1.30); MONOCYTES % (AUTO) 8.4 % (0.0-11.0); NEUTROPHILS # (AUTO) 3.8 K/uL (1.8-8.9); NEUTROPHILS % (AUTO) 57.4 % (38.5-71.5); PLATELET COUNT (AUTO) 223 K/uL (179-408); RED BLOOD CELL COUNT(AUTO) 4.17 MIL/uL (3.63-4.92); RED CELL DISTRIBUTION WIDTH 12.8 % (12.3-17.7); WHITE BLOOD COUNT (AUTO) 6.6 K/uL (3.8-11.8)
[2024-09-22 07:05] LABS: CALCIUM 9.7 mg/dL (8.5-10.1); CREATININE 0.6 mg/dL (0.6-1.3); MAGNESIUM 2.2 mg/dL (1.8-2.4); PHOSPHOROUS 4.4 mg/dL (2.5-4.9); POTASSIUM 4.3 mmol/L (3.5-5.1)
[2024-09-22 07:19] LABS: DIFFERENTIAL COMMENT 1
[2024-09-23] VITALS (8 sets, daily range): TEMP 98.2–98.3; O2SAT 98
[2024-09-24] VITALS (8 sets, daily range): TEMP 98.2–98.6; O2SAT 98
[2024-09-25] VITALS (8 sets, daily range): TEMP 97.3–98.3; O2SAT 97–98
[2024-09-26] VITALS (8 sets, daily range): TEMP 97.2–98.5; O2SAT 98
[2024-09-27] VITALS (8 sets, daily range): TEMP 98.3–98.7; O2SAT 98–99
[2024-09-28] VITALS (8 sets, daily range): TEMP 98.6–99; O2SAT 98–99
[2024-09-29] VITALS (8 sets, daily range): TEMP 97.5–98.2; O2SAT 97–98
[2024-09-29 07:37] LABS: BASOPHILS % (AUTO) 0.8 % (0.0-2.0); EOSINOPHILS # (AUTO) 0.4 K/uL (0.0-0.7); EOSINOPHILS % (AUTO) 6.3 % (0.0-7.0); HEMATOCRIT 40.5 % (31.2-41.9); HEMOGLOBIN 13.7 g/dL (10.9-14.3); LYMPHOCYTES # (AUTO) 1.6 K/uL (0.8-4.8); LYMPHOCYTES % (AUTO) 26.8 % (20.5-51.5); MEAN CORPUSCULAR HEMOGLOBIN 30.6 uug (24.7-32.8); MEAN CORPUSCULAR HGB CONC 34 g/dL (32.3-35.6); MEAN CORPUSCULAR VOLUME 90.9 fL (75.5-95.3); MONOCYTES # (AUTO) 0.5 K/uL (0.1-1.30); NEUTROPHILS # (AUTO) 3.4 K/uL (1.8-8.9); NEUTROPHILS % (AUTO) 58.1 % (38.5-71.5); PLATELET COUNT (AUTO) 204 K/uL (179-408); RED BLOOD CELL COUNT(AUTO) 4.46 MIL/uL (3.63-4.92); WHITE BLOOD COUNT (AUTO) 5.8 K/uL (3.8-11.8)
[2024-09-29 07:55] LABS: CALCIUM 9.2 mg/dL (8.5-10.1); CARBON DIOXIDE 27 mmol/L (21-32); CHLORIDE 105 mmol/L (98-107); CREATININE 0.4 mg/dL (0.6-1.3); GLUCOSE 82 mg/dL (74-106); POTASSIUM 4.3 mmol/L (3.5-5.1); SODIUM SERUM 143 mmol/L (136-145); UREA NITROGEN, BLOOD 13 mg/dL (7-18)
[2024-09-29 08:21] LABS: DIFFERENTIAL COMMENT 1
[2024-09-29 08:26] LABS: THYROID STIMULATING HORMONE 1.019 mIU/mL (0.358-3.740)
[2024-09-30] VITALS (9 sets, daily range): TEMP 98–98.5; O2SAT 98
[2024-09-30 06:06] LABS: FOLLICLE STIMULATION HORMONE 7.1 mIU/mL (.); LUTEINIZING HORMONE 7.4 mIU/mL (.)
[2024-10-01] VITALS (9 sets, daily range): TEMP 98.6–98.8; O2SAT 98
[2024-10-01] MEDS: TOBRAMYCIN SULFATE OPHT OINT 3.5 GM TUBE RIGHTEYE SCH (21:00)
[2024-10-02] VITALS (8 sets, daily range): BP systolic 116; BP diastolic 68; TEMP 97.8–98.4; O2SAT 97–100
[2024-10-03] VITALS (8 sets, daily range): TEMP 97.6–97.9; O2SAT 97–98
[2024-10-04] VITALS (8 sets, daily range): TEMP 98.2–99; O2SAT 97–98
[2024-10-05] VITALS (9 sets, daily range): TEMP 97.7–98.5; O2SAT 97–98
[2024-10-06] VITALS (10 sets, daily range): TEMP 97–98.5; O2SAT 97–98
[2024-10-06] MEDS ORDERED: DOCU100C36 GT (23:54)
[2024-10-06] MEDS ORDERED: GUAI100S69 GT (23:54)
[2024-10-06] MEDS ORDERED: MELA5TAB20 GT (23:54)
[2024-10-06] MEDS ORDERED: RIVA20TA GT (23:54)
[2024-10-06] MEDS ORDERED: LACO50TA2 GT (23:54)
[2024-10-06] MEDS ORDERED: METO-295 GT (23:54)
[2024-10-06] MEDS ORDERED: WHEA152P GT (23:54)
[2024-10-06] MEDS ORDERED: NUT.237L65 GT (23:54)
[2024-10-06] MEDS ORDERED: SIME80TA15 GT (23:54)
[2024-10-06] MEDS ORDERED: [UNRECOGNIZED DRUG - CODE] TP (23:54)
[2024-10-06] MEDS ORDERED: TIZA4TAB5 GT (23:54)
[2024-10-06] MEDS ORDERED: EMOL473L2 TP (23:54)
[2024-10-06] MEDS ORDERED: MAGN400O6 GT (23:54)
[2024-10-06] MEDS ORDERED: DIPH25TA25 GT (23:54)
[2024-10-06] MEDS ORDERED: ONDA-104 GT (23:54)
[2024-10-06] MEDS ORDERED: HYDR453. TP (23:54)
[2024-10-06] MEDS ORDERED: BISA10SU61 RC (23:54)
[2024-10-06] MEDS ORDERED: POLY250017 GT (23:54)
[2024-10-06] MEDS ORDERED: TOBR3.5O2 RIGHTEYE (23:54)
[2024-10-06] MEDS ORDERED: ZINC113C9 TP (23:54)
[2024-10-06] MEDS ORDERED: POLY15DR27 EACHEYE (23:54)
[2024-10-06] MEDS ORDERED: VITA-287 GT (23:54)
[2024-10-06] MEDS ORDERED: LEVE750T56 GT (23:54)
== END 2024-10-06 23:20 | disposition short-term general hospital (02) | DRG 133 ==
LOC: SA → UNDOLOA 10-06 23:55
PROVIDERS: ADMIT Internal Medicine Nephrology; ATTEND Internal Medicine Nephrology
DX: J96.11 Chronic respiratory failure with hypoxia (principal); G82.50 Quadriplegia, unspecified; G93.1 Anoxic brain damage, not elsewhere classified; E87.0 Hyperosmolality and hypernatremia; G90.89 Other disorders of autonomic nervous system; Z93.0 Tracheostomy status; K94.23 Gastrostomy malfunction; E55.9 Vitamin D deficiency, unspecified; Z86.74 Personal history of sudden cardiac arrest; D64.9 Anemia, unspecified; H10.9 Unspecified conjunctivitis; K59.00 Constipation, unspecified; L30.9 Dermatitis, unspecified; Z91.010 Allergy to peanuts; Z93.1 Gastrostomy status; R13.10 Dysphagia, unspecified; K05.10 Chronic gingivitis, plaque induced; K05.3 Chronic periodontitis; N91.1 Secondary amenorrhea; F19.11 Other psychoactive substance abuse, in remission; Z87.828 Personal history of other (healed) physical injury and trauma; H00.011 Hordeolum externum right upper eyelid; Z87.39 Personal history of other diseases of the musculoskeletal system and connective tissue; Z87.448 Personal history of other diseases of urinary system; Z74.01 Bed confinement status; I69.398 Other sequelae of cerebral infarction
CPT/HCPCS: 36415; 71045; 74018; 83001; 83002; 83735; 84100; 84146; 84443; 85025; 94640; 94760; A4663; A6209; A6213; J2060; J8597

== ENCOUNTER 2024-10-06 23:20 | Inpatient (IN) | payer MEDICAID ==
[~2024-10-06] VITALS: Ht 152.4 cm; Wt 49.9 kg
[2024-10-06 00:05] VITALS: O2SAT 98
[2024-10-06] MEDS ORDERED: [UNRECOGNIZED DRUG - CODE] TP (23:54)
[2024-10-06] MEDS ORDERED: SIME80TA15 GT (23:54)
[2024-10-06] MEDS ORDERED: EMOL473L2 TP (23:54)
[2024-10-06] MEDS ORDERED: RIVA20TA GT (23:54)
[2024-10-06] MEDS ORDERED: BISA10SU61 RC (23:54)
[2024-10-06] MEDS ORDERED: TIZA4TAB5 GT (23:54)
[2024-10-06] MEDS ORDERED: MAGN400O6 GT (23:54)
[2024-10-06] MEDS ORDERED: LEVE750T56 GT (23:54)
[2024-10-06] MEDS ORDERED: ONDA-104 GT (23:54)
[2024-10-06] MEDS ORDERED: HYDR453. TP (23:54)
[2024-10-06] MEDS ORDERED: DOCU100C36 GT (23:54)
[2024-10-06] MEDS ORDERED: DIPH25TA25 GT (23:54)
[2024-10-06] MEDS ORDERED: WHEA152P GT (23:54)
[2024-10-06] MEDS ORDERED: POLY15DR27 EACHEYE (23:54)
[2024-10-06] MEDS ORDERED: VITA-287 GT (23:54)
[2024-10-06] MEDS ORDERED: MELA5TAB20 GT (23:54)
[2024-10-06] MEDS ORDERED: GUAI100S69 GT (23:54)
[2024-10-06] MEDS ORDERED: METO-295 GT (23:54)
[2024-10-06] MEDS ORDERED: LACO50TA2 GT (23:54)
[2024-10-06] MEDS ORDERED: TOBR3.5O2 RIGHTEYE (23:54)
[2024-10-06] MEDS ORDERED: NUT.237L65 GT (23:54)
[2024-10-06] MEDS ORDERED: ZINC113C9 TP (23:54)
[2024-10-06] MEDS ORDERED: POLY250017 GT (23:54)
[2024-10-07] VITALS (14 sets, daily range): BP systolic 98–145; BP diastolic 67–75; TEMP 98.1–99.1; O2SAT 95–98
[2024-10-07] MEDS ORDERED: SWABABLE VALVE TRANSFER SET EA MC ONE (00:40)
[2024-10-07] MEDS ORDERED: IV NORMAL SALINE 250 ML IV ONE (00:40)
[2024-10-07] MEDS ORDERED: IOHEXOL 300MG/ML 100 ML INFUS..BTL ONE (00:40)
[2024-10-07 00:41] LABS: BASOPHILS % (AUTO) 0.1 % (0.0-2.0); CALCIUM 10.6 mg/dL (8.5-10.1); CARBON DIOXIDE 30 mmol/L (21-32); CHLORIDE 101 mmol/L (98-107); CREATININE 0.8 mg/dL (0.6-1.3); GLUCOSE 142 mg/dL (74-106); HEMATOCRIT 50.5 % (31.2-41.9); HEMOGLOBIN 16.9 g/dL (10.9-14.3); LYMPHOCYTES # (AUTO) 0.6 K/uL (0.8-4.8); LYMPHOCYTES % (AUTO) 3.5 % (20.5-51.5); MEAN CORPUSCULAR HGB CONC 34 g/dL (32.3-35.6); MEAN CORPUSCULAR VOLUME 89.6 fL (75.5-95.3); MONOCYTES # (AUTO) 0.8 K/uL (0.1-1.30); MONOCYTES % (AUTO) 4.8 % (0.0-11.0); NEUTROPHILS # (AUTO) 15.1 K/uL (1.8-8.9); NEUTROPHILS % (AUTO) 91.6 % (38.5-71.5); PLATELET COUNT (AUTO) 263 K/uL (179-408); RED BLOOD CELL COUNT(AUTO) 5.64 MIL/uL (3.63-4.92); RED CELL DISTRIBUTION WIDTH 13.2 % (12.3-17.7); SODIUM SERUM 144 mmol/L (136-145); UREA NITROGEN, BLOOD 24 mg/dL (7-18); WHITE BLOOD COUNT (AUTO) 16.5 K/uL (3.8-11.8)
[2024-10-07 00:47] LABS: ALANINE AMINOTRANSFERASE 22 U/L (14-59); ALBUMIN 4.3 g/dL (3.4-5.0); ALKALINE PHOSPHATASE 82 U/L (50-136); ASPARTATE AMINOTRANSFERASE 17 U/L (15-37); BILIRUBIN,DIRECT 0.1 mg/dL (0.0-0.2); BILIRUBIN,TOTAL 0.4 mg/dL (0.2-1.0); LIPASE 47 U/L (16-77)
[2024-10-07] MEDS ORDERED: ONDANSETRON 4 MG/2 ML VIAL ONE (00:58)
[2024-10-07 01:00] LABS: PREGNANCY TEST SERUM QUAN < 1 miul/L (0-6)
[2024-10-07] MEDS: IV NORMAL SALINE 1000 ML BAG IV ONE ×2 (01:00→06:30)
[2024-10-07] MEDS: ONDANSETRON 4 MG/2 ML VIAL IV ONE (01:00)
[2024-10-07] MEDS ORDERED: PIPERACILLIN/TAZOBACTAM/D5W 50 ML IV ONE (06:46)
[2024-10-07] MEDS: PIPERACILLIN SODIUM/TAZOBACTAM 3.375 G in IV DEXTROSE 5% 50 ML IV ONE (06:51)
[2024-10-07] MEDS ORDERED: ACETAMINOPHEN 650 MG SUPP.RECT RC PRN (07:00)
[2024-10-07] MEDS ORDERED: ONDANSETRON 4 MG/2 ML VIAL IV PRN (07:00)
[2024-10-07] MEDS ORDERED: GUAIFENESIN SUGAR FREE 100 MG/5 ML UDC GT PRN (07:45)
[2024-10-07] MEDS ORDERED: VITAL AF 1.2 1,000 ML LIQUID GT PRN (07:45)
[2024-10-07] MEDS ORDERED: DIPHENHYDRAMINE HCL 25 MG GT SCH (07:45)
[2024-10-07] MEDS ORDERED: MAGNESIUM HYDROXIDE 30 ML LIQUID UDC GT PRN (07:45)
[2024-10-07] MEDS ORDERED: ACETAMINOPHEN 325 MG TABLET-SA PATIENTS-PAIN ONLY GT PRN (07:45)
[2024-10-07 07:49] LABS: *BILIRUBIN,URIN NEGATIVE (NEGATIVE); *BLOOD, URINE NEGATIVE (NEGATIVE); *CLARITY,URINE CLEAR (CLEAR); *COLOR,URINE YELLOW (YELLOW); *KETONES,URINE NEGATIVE (NEGATIVE); *PROTEIN,URINE 1+ (NEGATIVE); *UROBILINOGEN,URINE 0.2 E.U./dl (NORMAL); LEUKOCYTE ESTERASE ,URINE NEGATIVE (NEGATIVE); NITRITE, URINE NEGATIVE (NEGATIVE); PH,URINE 5.5 (5.0-8.0); UGLUCOSE NEGATIVE (NEGATIVE)
[2024-10-07 07:51] LABS: BASOPHILS % (AUTO) 0.1 % (0.0-2.0); EOSINOPHILS % (AUTO) 0.1 % (0.0-7.0); HEMATOCRIT 38.7 % (31.2-41.9); HEMOGLOBIN 12.8 g/dL (10.9-14.3); LYMPHOCYTES # (AUTO) 0.8 K/uL (0.8-4.8); LYMPHOCYTES % (AUTO) 7.7 % (20.5-51.5); MEAN CORPUSCULAR HEMOGLOBIN 30.1 uug (24.7-32.8); MEAN CORPUSCULAR HGB CONC 33 g/dL (32.3-35.6); MEAN CORPUSCULAR VOLUME 91.2 fL (75.5-95.3); MONOCYTES # (AUTO) 1.1 K/uL (0.1-1.30); MONOCYTES % (AUTO) 9.9 % (0.0-11.0); NEUTROPHILS % (AUTO) 82.2 % (38.5-71.5); PLATELET COUNT (AUTO) 216 K/uL (179-408); RED BLOOD CELL COUNT(AUTO) 4.24 MIL/uL (3.63-4.92); RED CELL DISTRIBUTION WIDTH 12.7 % (12.3-17.7); WHITE BLOOD COUNT (AUTO) 10.9 K/uL (3.8-11.8)
[2024-10-07] MEDS ORDERED: diphenhydrAMINE 25 MG/10 ML UDC GT PRN (08:15)
[2024-10-07 08:19] LABS: ALBUMIN 2.6 g/dL (3.4-5.0); BILIRUBIN,DIRECT 0.2 mg/dL (0.0-0.2); BILIRUBIN,TOTAL 0.4 mg/dL (0.2-1.0); CALCIUM 7.8 mg/dL (8.5-10.1); CREATININE 0.6 mg/dL (0.6-1.3); PHOSPHOROUS 3.8 mg/dL (2.5-4.9); TOTAL PROTEIN, SERUM 6.5 g/dL (6.4-8.2)
[2024-10-07 08:30] LABS: SQUAMOUS EPITHELIAL CELL,UR FEW /HPF (NONE SEEN); WBC,URINE 0-3 /HPF (0-3)
[2024-10-07] MEDS ORDERED: Medication Not On Formulary EA (Polyethylene Glycol 3350 17 GM) GT SCH (09:00)
[2024-10-07] MEDS ORDERED: POLYVINYL ALCOHOL OPHT DROPS 15 ML BOTTLE EACHEYE PRN (09:00)
[2024-10-07] MEDS ORDERED: POLYETHYLENE GLYCOL 3350 238 GM POWDER GT SCH (09:00)
[2024-10-07] MEDS ORDERED: WHEAT DEXTRIN GT SCH (09:00)
[2024-10-07] MEDS ORDERED: DOCUSATE SODIUM 100 MG CAPSULE PO SCH (09:00)
[2024-10-07] MEDS ORDERED: BULGARICUS GT SCH (09:00)
[2024-10-07] MEDS ORDERED: TOBRAMYCIN/DEXAMETH OPHT OINT 3.5 GM TUBE RIGHTEYE SCH (09:00)
[2024-10-07] MEDS ORDERED: ACIDOPHILUS GT SCH (09:00)
[2024-10-07] MEDS ORDERED: ENOXAPARIN SODIUM 40 MG/0.4 ML DISP.SYRIN SQ SCH (09:00)
[2024-10-07] MEDS ORDERED: HYDROGEN PEROXIDE TOP SCH (09:00)
[2024-10-07] MEDS ORDERED: AMLODIPINE 10 MG TABLET GT SCH (09:00)
[2024-10-07] MEDS ORDERED: LACOSAMIDE 50 MG TABLET GT SCH (09:00)
[2024-10-07] MEDS: LACOSAMIDE 100 MG/10 ML UDC GT SCH (11:00)
[2024-10-07] MEDS: LACTULOSE 20 G/30 ML LIQUID UDC PO SCH (11:00)
[2024-10-07] MEDS: levETIRAcetam 500 MG/5 ML LIQUID UDC GT SCH (11:01)
[2024-10-07] MEDS: PANTOPRAZOLE SODIUM 40 MG VIAL IV SCH (11:01)
[2024-10-07] MEDS: TIZANIDINE HCL 4 MG TABLET GT SCH (11:02)
[2024-10-07] MEDS: METOCLOPRAMIDE HCL 10 MG TABLET GT SCH (11:02)
[2024-10-07] MEDS ORDERED: PIPERACILLIN SODIUM/TAZOBACTAM 3.375 G in IV DEXTROSE 5% 50 ML IV SCH (12:00)
[2024-10-07] MEDS ORDERED: VITAMINS A AND D OINT 42 GM TUBE TP PRN (12:30)
[2024-10-07] MEDS ORDERED: VITAMINS A AND D 5 GM UD PKT TP PRN (12:45)
[2024-10-07] MEDS: VITAMIN B COMPLEX 1 TABLET GT SCH (12:46)
[2024-10-07] MEDS: DOCUSATE SODIUM 100 MG/10 ML LIQUID UDC GT SCH (12:46)
[2024-10-07] MEDS: HYDROGEN PEROXIDE 3% 118 ML BOTTLE TOP SCH (12:47)
[2024-10-07] MEDS: MIRALAX 17 GM POWD.PACK GT SCH (12:47)
[2024-10-07] MEDS ORDERED: CALCIUM CARBONATE 500 MG TAB.CHEW GT SCH (14:00)
[2024-10-07] MEDS: PIPERACILLIN SODIUM/TAZOBACTAM 3.375 G in IV DEXTROSE 5% 100 ML IV SCH (14:11)
[2024-10-07] MEDS: IV NS 1000 ML 1,000 ML IV PRN (14:12)
[2024-10-07] MEDS: NUTRISOURCE FIBER 4 GM PACKET GT SCH (19:49)
[2024-10-07] MEDS: ZINC SULFATE 220 MG CAPSULE GT SCH (20:54)
[2024-10-07] MEDS: TOBRAMYCIN 0.3% RIGHTEYE SCH (20:55)
[2024-10-07] MEDS: [UNRECOGNIZED DRUG - OTHER] RIGHTEYE SCH (20:55)
[2024-10-07] MEDS: MELATONIN 5 MG GT SCH (20:56)
[2024-10-07] MEDS: [UNRECOGNIZED DRUG - OTHER] GT SCH (20:56)
[2024-10-07] MEDS ORDERED: AMINO ACIDS GT SCH (21:00)
[2024-10-07] MEDS ORDERED: MELATONIN 5 MG GT SCH (21:00)
[2024-10-07] MEDS ORDERED: ASCORBIC ACID 500 MG GT SCH (21:00)
[2024-10-07] MEDS ORDERED: PROTEIN HYDROLYS GT SCH (21:00)
[2024-10-07] MEDS ORDERED: Medication Not On Formulary EA (Rivaroxaban (Xarelto) 10 MG) GT SCH (21:00)
[2024-10-07] MEDS ORDERED: TIZANIDINE HCL 4 MG TABLET ONE (21:30)
[2024-10-07] MEDS ORDERED: levETIRAcetam 500 MG/5 ML LIQUID UDC ONE (21:31)
[2024-10-07] MEDS: RIVAROXABAN 10 MG TABLET GT SCH (22:03)
[2024-10-07] MEDS: METOCLOPRAMIDE HCL 10 MG/10 ML UDC ONE (22:20)
[2024-10-08] VITALS (33 sets, daily range): BP systolic 82–132; BP diastolic 34–88; TEMP 97.5–98.7; O2SAT 92–100
[2024-10-08 05:10] LABS: BASOPHILS % (AUTO) 0.2 % (0.0-2.0); EOSINOPHILS # (AUTO) 0.1 K/uL (0.0-0.7); EOSINOPHILS % (AUTO) 1.4 % (0.0-7.0); HEMOGLOBIN 12.4 g/dL (10.9-14.3); LYMPHOCYTES # (AUTO) 1.2 K/uL (0.8-4.8); LYMPHOCYTES % (AUTO) 16.6 % (20.5-51.5); MEAN CORPUSCULAR HEMOGLOBIN 30.2 uug (24.7-32.8); MEAN CORPUSCULAR HGB CONC 34 g/dL (32.3-35.6); MONOCYTES # (AUTO) 0.8 K/uL (0.1-1.30); MONOCYTES % (AUTO) 10.2 % (0.0-11.0); NEUTROPHILS # (AUTO) 5.3 K/uL (1.8-8.9); NEUTROPHILS % (AUTO) 71.6 % (38.5-71.5); PLATELET COUNT (AUTO) 188 K/uL (179-408); RED BLOOD CELL COUNT(AUTO) 4.11 MIL/uL (3.63-4.92); RED CELL DISTRIBUTION WIDTH 13.1 % (12.3-17.7); WHITE BLOOD COUNT (AUTO) 7.4 K/uL (3.8-11.8)
[2024-10-08 05:29] LABS: DIFFERENTIAL COMMENT 1
[2024-10-08 05:47] LABS: CREATININE 0.6 mg/dL (0.6-1.3); MAGNESIUM 2.1 mg/dL (1.8-2.4); PHOSPHOROUS 2.5 mg/dL (2.5-4.9); POTASSIUM 3.7 mmol/L (3.5-5.1)
[2024-10-08] MEDS: IV NS 1000 ML 1,000 ML IV ONE (12:14)
[2024-10-08] MEDS ORDERED: ADENOSINE 6 MG/2 ML SYR IV ONE ×2 (17:45)
[2024-10-08] MEDS ORDERED: ATROPINE SULFATE 1 MG/10 ML DISP.SYRIN IV PRN (17:45)
[2024-10-09] VITALS (58 sets, daily range): BP systolic 75–153; BP diastolic 26–130; TEMP 97.7–98.8; O2SAT 87–100
[2024-10-09 05:03] LABS: BASOPHILS % (AUTO) 0.5 % (0.0-2.0); EOSINOPHILS # (AUTO) 0.2 K/uL (0.0-0.7); EOSINOPHILS % (AUTO) 3.8 % (0.0-7.0); HEMOGLOBIN 11.5 g/dL (10.9-14.3); LYMPHOCYTES # (AUTO) 1.1 K/uL (0.8-4.8); LYMPHOCYTES % (AUTO) 19.2 % (20.5-51.5); MEAN CORPUSCULAR HEMOGLOBIN 31.2 uug (24.7-32.8); MEAN CORPUSCULAR HGB CONC 35 g/dL (32.3-35.6); MEAN CORPUSCULAR VOLUME 89.4 fL (75.5-95.3); MONOCYTES # (AUTO) 0.6 K/uL (0.1-1.30); MONOCYTES % (AUTO) 9.6 % (0.0-11.0); NEUTROPHILS % (AUTO) 66.9 % (38.5-71.5); PLATELET COUNT (AUTO) 174 K/uL (179-408); RED BLOOD CELL COUNT(AUTO) 3.69 MIL/uL (3.63-4.92); RED CELL DISTRIBUTION WIDTH 12.9 % (12.3-17.7); WHITE BLOOD COUNT (AUTO) 5.9 K/uL (3.8-11.8)
[2024-10-09 05:04] LABS: DIFFERENTIAL COMMENT 1
[2024-10-09 05:14] LABS: CALCIUM 7.8 mg/dL (8.5-10.1); CARBON DIOXIDE 27 mmol/L (21-32); CHLORIDE 110 mmol/L (98-107); CREATININE 0.4 mg/dL (0.6-1.3); GLUCOSE 78 mg/dL (74-106); PHOSPHOROUS 2.3 mg/dL (2.5-4.9); POTASSIUM 3.6 mmol/L (3.5-5.1); SODIUM SERUM 146 mmol/L (136-145); UREA NITROGEN, BLOOD 2 mg/dL (7-18)
[2024-10-09] MEDS: POTASSIUM PHOSPHATE MM 15 MMOL in IV NORMAL SALINE 250 ML IV ONE (08:53)
[2024-10-09] MEDS: IV D5W 1000ML 1,000 ML IV SCH (08:54)
[2024-10-09] MEDS: LACOSAMIDE 100 MG/10 ML UDC GT SCH (09:09)
[2024-10-09] MEDS: NOREPINEPHRINE 8MG/NS 250ML 250 ML IV PRN (10:14)
[2024-10-09] MEDS: VITAL AF 1.2 1,000 ML LIQUID GT PRN (22:39)
[2024-10-10] VITALS (95 sets, daily range): BP systolic 85–207; BP diastolic 21–188; TEMP 97.7–99.6; O2SAT 93–99
[2024-10-10 05:09] LABS: BASOPHILS % (AUTO) 0.3 % (0.0-2.0); EOSINOPHILS # (AUTO) 0.3 K/uL (0.0-0.7); EOSINOPHILS % (AUTO) 3.5 % (0.0-7.0); HEMATOCRIT 37.7 % (31.2-41.9); HEMOGLOBIN 12.8 g/dL (10.9-14.3); LYMPHOCYTES # (AUTO) 1.5 K/uL (0.8-4.8); LYMPHOCYTES % (AUTO) 16.8 % (20.5-51.5); MEAN CORPUSCULAR HEMOGLOBIN 30.3 uug (24.7-32.8); MEAN CORPUSCULAR HGB CONC 34 g/dL (32.3-35.6); MEAN CORPUSCULAR VOLUME 89.1 fL (75.5-95.3); MONOCYTES # (AUTO) 0.9 K/uL (0.1-1.30); MONOCYTES % (AUTO) 9.6 % (0.0-11.0); NEUTROPHILS # (AUTO) 6.4 K/uL (1.8-8.9); NEUTROPHILS % (AUTO) 69.8 % (38.5-71.5); PLATELET COUNT (AUTO) 237 K/uL (179-408); RED BLOOD CELL COUNT(AUTO) 4.23 MIL/uL (3.63-4.92); RED CELL DISTRIBUTION WIDTH 12.6 % (12.3-17.7); WHITE BLOOD COUNT (AUTO) 9.1 K/uL (3.8-11.8)
[2024-10-10 05:21] LABS: DIFFERENTIAL COMMENT 1
[2024-10-10 05:28] LABS: CALCIUM 7.9 mg/dL (8.5-10.1); CARBON DIOXIDE 27 mmol/L (21-32); CHLORIDE 107 mmol/L (98-107); CREATININE 0.5 mg/dL (0.6-1.3); GLUCOSE 98 mg/dL (74-106); MAGNESIUM 1.9 mg/dL (1.8-2.4); PHOSPHOROUS 2.2 mg/dL (2.5-4.9); POTASSIUM 2.9 mmol/L (3.5-5.1); SODIUM SERUM 144 mmol/L (136-145); UREA NITROGEN, BLOOD < 1 mg/dL (7-18)
[2024-10-10] MEDS: POTASSIUM CHLORIDE 20 MEQ POWDER PACKET GT ONE (08:15)
[2024-10-10] MEDS: POTASSIUM PHOSPHATE MM 15 MMOL in IV NORMAL SALINE 250 ML IV ONE (09:40)
[2024-10-11] VITALS (96 sets, daily range): BP systolic 82–125; BP diastolic 51–95; TEMP 97–98.7; O2SAT 95–100
[2024-10-11 04:44] LABS: BASOPHILS % (AUTO) 0.5 % (0.0-2.0); EOSINOPHILS # (AUTO) 0.3 K/uL (0.0-0.7); EOSINOPHILS % (AUTO) 5.2 % (0.0-7.0); HEMATOCRIT 40.7 % (31.2-41.9); HEMOGLOBIN 13.6 g/dL (10.9-14.3); LYMPHOCYTES # (AUTO) 1.3 K/uL (0.8-4.8); LYMPHOCYTES % (AUTO) 25.6 % (20.5-51.5); MEAN CORPUSCULAR HGB CONC 33 g/dL (32.3-35.6); MEAN CORPUSCULAR VOLUME 90.2 fL (75.5-95.3); MONOCYTES # (AUTO) 0.4 K/uL (0.1-1.30); MONOCYTES % (AUTO) 7.9 % (0.0-11.0); NEUTROPHILS % (AUTO) 60.8 % (38.5-71.5); PLATELET COUNT (AUTO) 234 K/uL (179-408); RED BLOOD CELL COUNT(AUTO) 4.52 MIL/uL (3.63-4.92); RED CELL DISTRIBUTION WIDTH 13.1 % (12.3-17.7)
[2024-10-11 04:48] LABS: DIFFERENTIAL COMMENT 1
[2024-10-11 05:06] LABS: CALCIUM 8.9 mg/dL (8.5-10.1); CARBON DIOXIDE 29 mmol/L (21-32); CHLORIDE 109 mmol/L (98-107); CREATININE 0.5 mg/dL (0.6-1.3); GLUCOSE 119 mg/dL (74-106); MAGNESIUM 1.9 mg/dL (1.8-2.4); PHOSPHOROUS 2.9 mg/dL (2.5-4.9); POTASSIUM 3.8 mmol/L (3.5-5.1); SODIUM SERUM 146 mmol/L (136-145)
[2024-10-11 05:13] LABS: UREA NITROGEN, BLOOD < 1 mg/dL (7-18)
[2024-10-11] MEDS: ACETAMINOPHEN 325 MG TABLET GT PRN (06:29)
[2024-10-11] MEDS ORDERED: VANCOMYCIN FOR GT/NG USE GT SCH (09:15)
[2024-10-11] MEDS: VANCOMYCIN FOR GT/NG USE GT SCH (09:27)
[2024-10-11] MEDS: METRONIDAZOLE 500 MG TABLET PO SCH (21:20)
[2024-10-12] VITALS (97 sets, daily range): BP systolic 79–139; BP diastolic 42–95; TEMP 97–98.2; O2SAT 96–100
[2024-10-12] MEDS: IV LACTATED RINGERS SOLUTION 500 ML IV ONE (09:56)
[2024-10-13] VITALS (78 sets, daily range): BP systolic 71–152; BP diastolic 37–132; TEMP 97–98.9; O2SAT 86–100
[2024-10-13 09:39] LABS: BASOPHILS % (AUTO) 0.6 % (0.0-2.0); EOSINOPHILS # (AUTO) 0.3 K/uL (0.0-0.7); EOSINOPHILS % (AUTO) 5.1 % (0.0-7.0); HEMATOCRIT 37.2 % (31.2-41.9); HEMOGLOBIN 12.6 g/dL (10.9-14.3); LYMPHOCYTES # (AUTO) 1.4 K/uL (0.8-4.8); LYMPHOCYTES % (AUTO) 24.9 % (20.5-51.5); MEAN CORPUSCULAR HEMOGLOBIN 30.4 uug (24.7-32.8); MEAN CORPUSCULAR HGB CONC 34 g/dL (32.3-35.6); MEAN CORPUSCULAR VOLUME 89.9 fL (75.5-95.3); MONOCYTES # (AUTO) 0.4 K/uL (0.1-1.30); MONOCYTES % (AUTO) 7.2 % (0.0-11.0); NEUTROPHILS # (AUTO) 3.4 K/uL (1.8-8.9); NEUTROPHILS % (AUTO) 62.2 % (38.5-71.5); PLATELET COUNT (AUTO) 287 K/uL (179-408); RED BLOOD CELL COUNT(AUTO) 4.14 MIL/uL (3.63-4.92); RED CELL DISTRIBUTION WIDTH 13.2 % (12.3-17.7); WHITE BLOOD COUNT (AUTO) 5.5 K/uL (3.8-11.8)
[2024-10-13 09:55] LABS: DIFFERENTIAL COMMENT 1
[2024-10-13 10:00] LABS: CALCIUM 8.8 mg/dL (8.5-10.1); CARBON DIOXIDE 27 mmol/L (21-32); CHLORIDE 109 mmol/L (98-107); CREATININE 0.4 mg/dL (0.6-1.3); GLUCOSE 130 mg/dL (74-106); PHOSPHOROUS 2.9 mg/dL (2.5-4.9); POTASSIUM 3.6 mmol/L (3.5-5.1); SODIUM SERUM 146 mmol/L (136-145); UREA NITROGEN, BLOOD 4 mg/dL (7-18)
[2024-10-14] VITALS (105 sets, daily range): BP systolic 71–142; BP diastolic 35–93; TEMP 97–98.7; O2SAT 88–100
[2024-10-14 09:35] LABS: CALCIUM 8.3 mg/dL (8.5-10.1); CARBON DIOXIDE 23 mmol/L (21-32); CHLORIDE 107 mmol/L (98-107); CREATININE 0.4 mg/dL (0.6-1.3); GLUCOSE 135 mg/dL (74-106); SODIUM SERUM 143 mmol/L (136-145); UREA NITROGEN, BLOOD 5 mg/dL (7-18)
[2024-10-14 10:20] LABS: BASOPHILS % (AUTO) 0.8 % (0.0-2.0); EOSINOPHILS # (AUTO) 0.4 K/uL (0.0-0.7); EOSINOPHILS % (AUTO) 7.8 % (0.0-7.0); HEMATOCRIT 36.5 % (31.2-41.9); HEMOGLOBIN 12.4 g/dL (10.9-14.3); LYMPHOCYTES # (AUTO) 1.1 K/uL (0.8-4.8); LYMPHOCYTES % (AUTO) 23.8 % (20.5-51.5); MEAN CORPUSCULAR HEMOGLOBIN 30.4 uug (24.7-32.8); MEAN CORPUSCULAR HGB CONC 34 g/dL (32.3-35.6); MEAN CORPUSCULAR VOLUME 89.3 fL (75.5-95.3); MONOCYTES # (AUTO) 0.5 K/uL (0.1-1.30); MONOCYTES % (AUTO) 9.9 % (0.0-11.0); NEUTROPHILS # (AUTO) 2.6 K/uL (1.8-8.9); NEUTROPHILS % (AUTO) 57.7 % (38.5-71.5); PLATELET COUNT (AUTO) 264 K/uL (179-408); RED BLOOD CELL COUNT(AUTO) 4.09 MIL/uL (3.63-4.92); RED CELL DISTRIBUTION WIDTH 13.8 % (12.3-17.7); WHITE BLOOD COUNT (AUTO) 4.6 K/uL (3.8-11.8)
[2024-10-14 10:25] LABS: POTASSIUM 4.1 mmol/L (3.5-5.1)
[2024-10-14] MEDS: MIDODRINE HCL 2.5 MG TABLET PO ONE (15:43)
[2024-10-14] MEDS: IV NS 1000 ML 1,000 ML IV ONE (15:43)
[2024-10-14] MEDS ORDERED: IV D5/ 0.9% NACL 1,000 ML IV PRN (17:30)
[2024-10-14] MEDS: IV NS 1000 ML 1,000 ML IV PRN (17:56)
[2024-10-14] MEDS: levETIRAcetam 500 MG/5 ML LIQUID UDC GT SCH (20:13)
[2024-10-14] MEDS: MIDODRINE HCL 2.5 MG TABLET PO SCH (21:34)
[2024-10-15] VITALS (58 sets, daily range): BP systolic 81–135; BP diastolic 45–98; TEMP 98–98.8; O2SAT 90–100
[2024-10-15 05:07] LABS: BASOPHILS % (AUTO) 0.6 % (0.0-2.0); EOSINOPHILS # (AUTO) 0.4 K/uL (0.0-0.7); EOSINOPHILS % (AUTO) 5.8 % (0.0-7.0); HEMATOCRIT 36.9 % (31.2-41.9); HEMOGLOBIN 12.6 g/dL (10.9-14.3); LYMPHOCYTES # (AUTO) 1.8 K/uL (0.8-4.8); LYMPHOCYTES % (AUTO) 24.2 % (20.5-51.5); MEAN CORPUSCULAR HEMOGLOBIN 30.5 uug (24.7-32.8); MEAN CORPUSCULAR HGB CONC 34 g/dL (32.3-35.6); MEAN CORPUSCULAR VOLUME 89.4 fL (75.5-95.3); MONOCYTES # (AUTO) 0.6 K/uL (0.1-1.30); MONOCYTES % (AUTO) 7.9 % (0.0-11.0); NEUTROPHILS # (AUTO) 4.5 K/uL (1.8-8.9); NEUTROPHILS % (AUTO) 61.5 % (38.5-71.5); PLATELET COUNT (AUTO) 256 K/uL (179-408); RED BLOOD CELL COUNT(AUTO) 4.13 MIL/uL (3.63-4.92); RED CELL DISTRIBUTION WIDTH 13.2 % (12.3-17.7); WHITE BLOOD COUNT (AUTO) 7.3 K/uL (3.8-11.8)
[2024-10-15 05:10] LABS: DIFFERENTIAL COMMENT 1
[2024-10-15 05:30] LABS: CALCIUM 7.9 mg/dL (8.5-10.1); CARBON DIOXIDE 26 mmol/L (21-32); CHLORIDE 108 mmol/L (98-107); CREATININE 0.4 mg/dL (0.6-1.3); GLUCOSE 113 mg/dL (74-106); MAGNESIUM 1.9 mg/dL (1.8-2.4); PHOSPHOROUS 2.9 mg/dL (2.5-4.9); POTASSIUM 4.1 mmol/L (3.5-5.1); SODIUM SERUM 142 mmol/L (136-145); UREA NITROGEN, BLOOD 6 mg/dL (7-18)
[2024-10-15] MEDS: MIDODRINE HCL 5 MG TABLET GT SCH (19:34)
[2024-10-15] MEDS: LACOSAMIDE 50 MG TABLET GT SCH (19:34)
[2024-10-16] VITALS (43 sets, daily range): BP systolic 67–158; BP diastolic 41–104; TEMP 97.9–98.5; O2SAT 90–99
[2024-10-16] MEDS: IV NS 1000 ML 1,000 ML IV PRN (01:22)
[2024-10-16] MEDS: LORAZEPAM 2 MG/1 ML VIAL IV PRN (05:36)
[2024-10-16] MEDS: PANTOPRAZOLE ORAL SUSPENSION 40 MG SUSPDR.PKT GT SCH (05:52)
[2024-10-16] MEDS: levETIRAcetam 500 MG/5 ML LIQUID UDC NG SCH (05:55)
[2024-10-16] MEDS: LACOSAMIDE 100 MG/10 ML UDC GT SCH (08:21)
[2024-10-16 08:41] LABS: BASOPHILS % (AUTO) 0.5 % (0.0-2.0); EOSINOPHILS # (AUTO) 0.2 K/uL (0.0-0.7); EOSINOPHILS % (AUTO) 3.1 % (0.0-7.0); HEMATOCRIT 37.5 % (31.2-41.9); HEMOGLOBIN 12.7 g/dL (10.9-14.3); LYMPHOCYTES # (AUTO) 1.5 K/uL (0.8-4.8); LYMPHOCYTES % (AUTO) 18.8 % (20.5-51.5); MEAN CORPUSCULAR HEMOGLOBIN 30.4 uug (24.7-32.8); MEAN CORPUSCULAR HGB CONC 34 g/dL (32.3-35.6); MEAN CORPUSCULAR VOLUME 89.8 fL (75.5-95.3); MONOCYTES # (AUTO) 0.6 K/uL (0.1-1.30); MONOCYTES % (AUTO) 7.5 % (0.0-11.0); NEUTROPHILS # (AUTO) 5.6 K/uL (1.8-8.9); NEUTROPHILS % (AUTO) 70.1 % (38.5-71.5); PLATELET COUNT (AUTO) 276 K/uL (179-408); RED BLOOD CELL COUNT(AUTO) 4.17 MIL/uL (3.63-4.92); RED CELL DISTRIBUTION WIDTH 13.4 % (12.3-17.7); WHITE BLOOD COUNT (AUTO) 7.9 K/uL (3.8-11.8)
[2024-10-16 08:46] LABS: DIFFERENTIAL COMMENT 1
[2024-10-16 08:53] LABS: CALCIUM 8.5 mg/dL (8.5-10.1); CARBON DIOXIDE 26 mmol/L (21-32); CHLORIDE 109 mmol/L (98-107); CREATININE 0.4 mg/dL (0.6-1.3); GLUCOSE 94 mg/dL (74-106); POTASSIUM 3.8 mmol/L (3.5-5.1); SODIUM SERUM 143 mmol/L (136-145); UREA NITROGEN, BLOOD 5 mg/dL (7-18)
[2024-10-16] MEDS: IV NS 1000 ML 1,000 ML IV ONE (13:28)
[2024-10-16] MEDS ORDERED: ALBUMIN HUMAN 25% 50 ML IV ONE (14:30)
[2024-10-16] MEDS: BISACODYL 10 MG SUPP.RECT RC PRN (18:13)
[2024-10-16] MEDS: levETIRAcetam 500 MG/5 ML LIQUID UDC GT SCH (20:26)
[2024-10-17] VITALS (16 sets, daily range): BP systolic 84–123; BP diastolic 51–96; TEMP 98.2–98.5; O2SAT 91–99
[2024-10-17 05:05] LABS: BASOPHILS # (AUTO) 0.1 K/UL (0.0-0.2); BASOPHILS % (AUTO) 1.1 % (0.0-2.0); EOSINOPHILS # (AUTO) 0.3 K/uL (0.0-0.7); EOSINOPHILS % (AUTO) 5.5 % (0.0-7.0); HEMATOCRIT 39.6 % (31.2-41.9); HEMOGLOBIN 13.3 g/dL (10.9-14.3); LYMPHOCYTES # (AUTO) 1.5 K/uL (0.8-4.8); LYMPHOCYTES % (AUTO) 29.7 % (20.5-51.5); MEAN CORPUSCULAR HGB CONC 34 g/dL (32.3-35.6); MEAN CORPUSCULAR VOLUME 89.6 fL (75.5-95.3); MONOCYTES # (AUTO) 0.5 K/uL (0.1-1.30); MONOCYTES % (AUTO) 9.8 % (0.0-11.0); NEUTROPHILS # (AUTO) 2.8 K/uL (1.8-8.9); NEUTROPHILS % (AUTO) 53.9 % (38.5-71.5); PLATELET COUNT (AUTO) 271 K/uL (179-408); RED BLOOD CELL COUNT(AUTO) 4.43 MIL/uL (3.63-4.92); WHITE BLOOD COUNT (AUTO) 5.1 K/uL (3.8-11.8)
[2024-10-17 05:09] LABS: DIFFERENTIAL COMMENT 1
[2024-10-17 05:14] LABS: CALCIUM 9.2 mg/dL (8.5-10.1); CARBON DIOXIDE 25 mmol/L (21-32); CHLORIDE 111 mmol/L (98-107); CREATININE 0.4 mg/dL (0.6-1.3); GLUCOSE 90 mg/dL (74-106); PHOSPHOROUS 3.5 mg/dL (2.5-4.9); POTASSIUM 4.6 mmol/L (3.5-5.1); SODIUM SERUM 147 mmol/L (136-145); UREA NITROGEN, BLOOD 5 mg/dL (7-18)
[2024-10-17] MEDS ORDERED: VANC500V GT (08:15)
[2024-10-17] MEDS ORDERED: LACO10SO3 GT (08:15)
[2024-10-17] MEDS ORDERED: MIDO5TAB4 GT (08:15)
[2024-10-17] MEDS: SIMETHICONE 80 MG TAB.CHEW GT PRN (08:49)
[2024-10-17] MEDS: VITAL AF 1.2 1,000 ML LIQUID GT PRN (09:08)
[2024-10-17] MEDS ORDERED: IV NS 1000 ML 1,000 ML IV ONE (13:00)
[2024-10-17] MEDS: FREE WATER VIA TUBE FEEDING GT SCH (13:51)
[2024-10-17] MEDS ORDERED: MIDODRINE HCL 5 MG TABLET PO ONE (15:45)
[2024-10-17] MEDS ORDERED: MIDODRINE HCL 5 MG TABLET GT SCH (17:00)
== END 2024-10-17 16:45 | DRG 720 ==
LOC: ER 23:27 → TELE3 10-07 07:57 → TELE-TD3 10-07 14:58 → CCU 10-07 15:02 → UNDODISIN 10-15 10:26
PROVIDERS: ADMIT Nurse Practitioner Family; ATTEND Internal Medicine
PROC: 05HF33Z Insertion of Infusion Device into Left Cephalic Vein, Percutaneous Approach (ICD-10-PCS; principal; 2024-10-08)
DX: A41.4 Sepsis due to anaerobes (principal); J96.21 Acute and chronic respiratory failure with hypoxia; R65.21 Severe sepsis with septic shock; A04.72 Enterocolitis due to Clostridium difficile, not specified as recurrent; E44.1 Mild protein-calorie malnutrition; G82.50 Quadriplegia, unspecified; G91.1 Obstructive hydrocephalus; K52.9 Noninfective gastroenteritis and colitis, unspecified; G93.1 Anoxic brain damage, not elsewhere classified; N91.1 Secondary amenorrhea; E87.0 Hyperosmolality and hypernatremia; E55.9 Vitamin D deficiency, unspecified; L30.9 Dermatitis, unspecified; L70.9 Acne, unspecified; F19.11 Other psychoactive substance abuse, in remission; D64.9 Anemia, unspecified; R13.10 Dysphagia, unspecified; N17.9 Acute kidney failure, unspecified; K56.7 Ileus, unspecified; R56.9 Unspecified convulsions; I95.2 Hypotension due to drugs; T50.995A Adverse effect of other drugs, medicaments and biological substances, initial encounter; Y92.230 Patient room in hospital as the place of occurrence of the external cause; I25.2 Old myocardial infarction; J98.11 Atelectasis; G90.89 Other disorders of autonomic nervous system; I69.398 Other sequelae of cerebral infarction; G93.49 Other encephalopathy; Z93.0 Tracheostomy status; Z86.74 Personal history of sudden cardiac arrest; Z68.21 Body mass index [BMI] 21.0-21.9, adult; Z93.1 Gastrostomy status; Z79.899 Other long term (current) drug therapy; Z87.828 Personal history of other (healed) physical injury and trauma; Z91.010 Allergy to peanuts
CPT/HCPCS: 36415; 70450; 71045; 83690; 83735; 84100; 85025; 86625; 87040; 87046; 87070; 87086; 87177; 89055; 93005; 94760; 99082-TC; A4606; A4663; G0378; J0278; J2060; J2405; J2470; J2543; J3370; J3490; J7040; J7070; J7120; J8597; Q9967